=== PATIENT | female | born 1950 | race Caucasian/White ===

== ENCOUNTER → 2020-02-06 15:04 | Outpatient (BNVA) | payer MEDICARE, MEDICAID, SELFPAY | PROVIDERS: PCP Internal Medicine; Referring Provider Internal Medicine; Visit Provider Hospitalist | DX: J45.41 Moderate persistent asthma with (acute) exacerbation (principal); J01.00 Acute maxillary sinusitis, unspecified; G47.33 Obstructive sleep apnea (adult) (pediatric) | CPT/HCPCS: 99212 ==

== ENCOUNTER → 2020-04-21 10:54 | Outpatient (BNVA) | payer MEDICARE, MEDICAID, SELFPAY | PROVIDERS: PCP Internal Medicine; Visit Provider Hospitalist | DX: Z76.89 Persons encountering health services in other specified circumstances (principal) | CPT/HCPCS: Q3014 ==

== ENCOUNTER 2020-05-13 15:23 | Outpatient (REF) | payer MEDICARE, MEDICAID, SELFPAY ==
--- NOTE | ~2020-05-13 | XR_ITS ---
EXAMINATION: XR CHEST CLINICAL INFORMATION: Cough COMPARISON: Chest radiographs 12/14/2018, 02/10/2017 TECHNIQUE: 2 views of the chest were obtained. FINDINGS: There is no airspace consolidation or groundglass opacity. The costophrenic sulci are clear. No effusion. The cardiac and hilar and mediastinal contours are stable. Again, there are mild multilevel degenerative changes thoracic spine with gentle dextrocurvature. XR/XR chest 2V IMPRESSION: No infiltrate or effusion. No acute intrathoracic disease.
== END 2020-05-13 15:24 | disposition home or self-care (01) ==
LOC: HO.XRAY 15:23
PROVIDERS: PCP Internal Medicine; Visit Provider Hospitalist
DX: R05 Cough (principal)
CPT/HCPCS: 71046

== ENCOUNTER 2020-07-01 14:14 | Outpatient (REF) | payer MEDICARE, MEDICAID, SELFPAY ==
--- NOTE | 2020-07-01 14:10 | MHC.AU.AHA ---
Adult Audiological Evaluation Date of Visit: 07/01/20 Reason for Appointment: Audiological evaluation to monitor the status of Ms. Ledezma's hearing loss. She has a longstanding history of bilateral sensorineural hearing loss and hearing aid use. She states that she lost both hearing aids and would like to pursue a replacement set. Ms. Ledezma believes that her hearing is getting worse. Previous Hearing Test Results: [facility] [place], 03/27/2017- Normal hearin from 250-750 Hz, steeply sloping to a mild to profound sensorineural hearing loss bilaterally. Medical History: Medical History: Diabetes, High Blood Pressure Medical History: Arnold-Chiari Malformation, fibromyalgia, neuropathy, lipomas, asthma, sinus problems. Allergies: Aspirin, latex Hearing Instrument History- Right Ear: Transmission Supervisor: Easy Vino Model: FaceAlertaeTeramind P70-312 Serial Number: [id number] Battery Size: 312 Repair Warranty: 07/11/2019 Loss and Damage Warranty: 07/11/2019 Dispensed By: [facility] Date of Fittin05/03/2017 Hearing Instrument History- Left Ear: Transmission Supervisor: O4ITak Model: Audeo P70-312 Serial Number: [id number] Battery Size: 312 Warranty: 07/11/2019 Loss and Damage Warranty: 07/11/2019 Dispensed By: [facility] Date of Fittin05/03/2017 Otoscopy: Right Ear: Unremarkable Left Ear: Unremarkable Tympanometry: Tympanometry performed due to: To assess integrity of the middle ear system Right Ear: Normal Middle Ear System (Type A) Left Ear: Normal Middle Ear System (Type A) Hearing Evaluation: Transducer(s) Used: Insert Earphones, Bone Conduction Method: Conventional Audiometry Stimuli Used: Pure Tones Right Ear: Description of Hearing: Normal hearing from 250-750 Hz, steeply sloping to a mild sensorineural hearing loss (SNHL) at 1000, severe SNHL at 1500 Hz, and a profound SNHL from 4051-1256 Hz. Left Ear: Description of Hearing: Normal hearing from 250-750 Hz, steeply sloping to a mild sensorineural hearing loss (SNHL) at 1000, moderately severe SNHL at 1500 Hz, severe SNHL at 2000 Hz, and a profound SNHL from 7001-9873 Hz. Speech Recognition Threshold (SRT): Method Used: Monitored Live Voice Stimuli Used: Spondee Words Right Ear: 30 dBHL Left Ear: 25 dBHL Word Discrimination: Method: Recorded Lists Word Lists Used: NU-6 Right Ear: 56% at 80 dBHL Left Ear: 56% at 80 dBHL Comparison: Compared to the most recent evaluation: Hearing is stable. Recommendations: Audiological re-evaluation in one year. Medical clearance from a physician is required before fitting. Hearing Aid Fitting will be scheduled when all materials arrive. Hearing aid(s) will be ordered after approval is received. Since lost aids are less than five years old and no longer under warranty, a prior authorization for new hearing [facility] Diagnosis: Primary Diagnosis: H90.3 Bilateral Sensorineural Hearing Loss Services Performed: Comprehensive Audiological Evaluation (CPT 96404) Tympanometry (CPT 12121) Signature: Provider: Christine Tello, CCC-A
--- NOTE | 2020-07-01 14:12 | MHC.AU.HAS ---
Hearing Aid Evaluation Date of Visit: 07/01/20 Historical Information: Description of Hearing: Normal steeply sloping to profound sensorineural hearing loss bilaterally. Current personal amplification information, if applicable: LOST- Phonak Audeo [id number] Summary: Patient reports that aids were lost. Would like to get replacements. Patient has neuropathy and would benefit from rechargeable hearing aids. Hearing Aid Prescription: Based on the individual?s shared listening needs, communication environments, dexterity, desire for connectivity, and personal preferences, the following prescription for amplification has been made: Right ear: Shuttle Fitting Supervisor: Phonak Model: Audeo P70-312 Battery Size: 312 Color: P5- [employer] Teacher: Size 1 P Type of Dome: Power Left ear: Left ear prescription to be same as Right Hearing Aid above: Shuttle Fitting Supervisor: Phonak Model: Audeo P70-312 Battery Size: 312 Color: P5- [employer] Class[employer] Teacher: Size 1 P Type of Dome: Power Action Taken/Action Needed: Prior authorization to be requested. Medical Clearance to be requested from PCP/ENT. Hearing Fitting to be scheduled when materials arrive Primary Diagnosis: H90.3 Bilateral Sensorineural Hearing Loss Signature: Provider: Christine Tello, CCC-A
--- NOTE | 2020-07-01 14:13 | MHC.AU.MED ---
Medical Clearance for Hearing Instrumentation Date: 07/03/20 Patient Name: Madeleine Ledezma Date of : 1950 Referring Provider: Rito Olivas MD We have seen your patient on 07/03/20 and have determined that they are a candidate for amplification (See accompanying report). Specifically, they would benefit from: Hearing aid use in both ears There is a statute that addresses Medical Evaluation Requirements prior to fitting a patient with a hearing aid. According to [place] statute 265 CMR:6.03(1), (a) General. Except as provided in 265 CMR 6.03(1)(b), a can line examiner shall not sell a hearing aid unless the prospective user has presented to the can line examiner a written statement signed by a licensed physician that states that the patient's hearing loss has been medically evaluated and the patient may be considered a candidate for a hearing aid. The medical evaluation must have taken place within the preceding six months. Please note: Due to the [place] Statute referenced above, we cannot accept a signature other than that of a licensed physician. [employer] and PA signatures cannot be accepted. I am in agreement with the above recommendation. There is no medical contraindication for hearing instrumentation. Physician Signature Date Physician Name (Printed)
== END 2020-07-01 14:15 | disposition home or self-care (01) ==
LOC: HO.SH 14:14
PROVIDERS: Visit Provider Internal Medicine
DX: H90.3 Sensorineural hearing loss, bilateral (principal)
CPT/HCPCS: 92557; 92567; 92591

== ENCOUNTER 2020-07-11 19:25 | Emergency (ER) | payer MEDICARE, MEDICAID, SELFPAY ==
--- NOTE | ~2020-07-11 | XR_ITS ---
EXAMINATION: XR chest 1V CLINICAL INFORMATION: Cough shortness of breath COMPARISON: 05/13/2020 TECHNIQUE: XR chest 1V Tubes and lines: None Lungs and pleura: Mild increased interstitial lung marking and peribronchial cuffing might be small airway disease unchanged, no dense focal consolidation pneumonia. Heart and mediastinum: The mediastinum is within normal limits.. Bones/soft tissue: Skeletal structures included are normal for patient's age. XR/XR chest 1V IMPRESSION: Diffuse increased interstitial lung marking and probable bronchial cuffing might be small airway disease. Versus interstitial pneumonitis. Please correlate clinically. No dense lobar consolidation or pleural effusion.
--- NOTE | ~2020-07-11 | CT_ITS ---
CT head/brain wo con CLINICAL INFORMATION: Reason for Exam ams COMPARISON: Prior CT scan from 2019 TECHNIQUE: Department standard protocol. This CT examination was performed using dose optimization techniques as appropriate, variously including the following: *Automated exposure control *Adjustment of mA and/or kV according to patient size (this includes techniques or standardized protocols for targeted exams where dose is matched to indication/reason for exam; i.e. extremities or head) *Use of iterative reconstruction technique DLP: 863 mGy-cm FINDINGS: CEREBRAL HEMISPHERES: There is no evidence of intra-axial or extra-axial mass, hemorrhage or acute infarct. BRAIN PARENCHYMA: Deep white matter and paraventricular hypoattenuation, nonspecific; however, in this patient's age group most likely changes secondary to chronic ischemia/microvascular angiopathy. SUBDURAL SPACE: No bleed. BASAL GANGLIA AND PINEAL GLAND: Unremarkable VENTRICLES: Symmetric and normal in size. CEREBELLUM AND BRAINSTEM: No space-occupying mass, hemorrhage or acute infarct. CEREBELLOPONTINE ANGLES: No lesion found. ORBITS: No intraorbital mass. VESSELS: Unremarkable SKULL BASE: Unremarkable INCLUDED SINUSES AT SKULL BASE: Clear SKULL AND SKIN: No fracture or bone lesion found. CT/CT head/brain wo con IMPRESSION: Deep white matter and periventricular hypoattenuation, nonspecific; however, in this patient's age group most likely sequela of chronic microvascular angiopathy ischemia. Normal CT scan does not rule out the possibility of hyperacute infarct in the first 12 hours. If patient symptoms persist may consider correlation with MRI, which is more sensitive for early acute infarct.
[2020-07-11 19:30] VITALS: BP 178/71; PULSE 86; RESP 20; TEMP 36.3; O2SAT 96; BMI 34.5
--- NOTE | 2020-07-11 19:55 | PC.NURSE ---
Bremer Scale completed by this RN while in Triage with pts daughter.
[2020-07-11 19:59] VITALS: BP 158/82; PULSE 88; RESP 16; TEMP 36.9; O2SAT 98
--- NOTE | 2020-07-11 20:24 | PC.NURSE ---
pt alert and oriented x3. respirations even and unlabored. vital signs WNL. pt states she hasn't slept in 3 days due to not taking her Ambien for 3 days since she is out of refills. pt also states she has multiple stressors in her life such as a grandaughter who lives with her and her living situation/potentially moving to a new house as well as chronic pain in shoulders, neck and back. pt is hard of hearing and daughter states she is non-compliant with wearing hearing aids, daughter at bedside and requests that staff wear a face shield when possible so pt can read lips. pt denies any pain at this time. pt is pleasant and cooperative with care. pt awaiting provider. call figueroa in reach.
--- NOTE | 2020-07-11 20:41 | PC.NURSE ---
pt denies SI at this time. pt clarified statements made earlier and states that she wishes God would come take her because she is old and doesn't want to be in pain anymore but emphasized that she is not suicidal and does not have a plan or any intent of harming or killing self. aware
--- NOTE | 2020-07-11 21:01 | ECG_ITS ---
Test Reason : AMS Blood Pressure : / mmHG Vent. Rate : 086 BPM Atrial Rate : 086 BPM P-R Int : 150 ms QRS Dur : 132 ms QT Int : 408 ms P-R-T Axes : 045 -16 042 degrees QTc Int : 488 ms Normal sinus rhythm Right bundle branch block Abnormal ECG When compared with ECG of 14-DEC-2018 17:12, Right bundle branch block is now Present Referred By: Hyacinth Nieves Electronically Signed By:MARGARET KIM
[2020-07-11] MEDS: 0.9 % Sodium Chloride 1,000 ML 999 ML IVCONT (21:33)
[2020-07-11 21:38] LABS: MANUAL DIFF FLAG NO
[2020-07-11 21:40] LABS: Basophils Percent Auto 0.3 % (0-2); Eosinophils Absolute Auto 0.3 X10*3/uL (0.0-0.4); Eosinophils Percent Auto 2.4 % (0-4); Hemoglobin 11.9 g/dl (12.0-16.0); Imm Gran Abs Auto 0.03 X10*3/uL (0.00-0.03); Imm Gran Pct Auto 0.3 % (0.0-0.4); Lymphocytes Absolute Auto 4.1 X10*3/uL (1.2-4.9); Mean Corpuscular HGB Conc 32.2 g/dl (31.0-35.0); Mean Platelet Volume 9.1 fL (9.4-12.3); Monocytes Absolute Auto 0.8 X10*3/uL (0.1-1.2); Monocytes Percent Auto 7.2 % (2-11); Neutrophils Absolute Auto 6.1 X10*3/uL (2.0-8.3); Neutrophils Percent Auto 53.8 % (45-73); Platelet Count 351 X10*3/uL (160-400); Red Blood Count 4.11 X10*6/uL (4.20-5.50); Red Cell Distribution Width 14.6 % (11.0-16.0); White Blood Count 11.2 X10*3/uL (4.8-10.8)
[2020-07-11 21:48] LABS: Partial Thromboplastin Time 26.6 SEC (24.1-38.0)
[2020-07-11 21:53] LABS: Ammonia 47 umol/L (13-55)
[2020-07-11 22:03] LABS: Alanine Aminotransferase 19 U/L (0-31); Albumin Level 3.9 g/dL (3.5-5.0); Alkaline Phosphatase 105 U/L (39-117); Anion Gap 12 (12-20); Aspartate Amino Transferase 21 U/L (5-31); Bilirubin Direct 0.2 mg/dL (0.0-0.5); Bilirubin Total 0.7 mg/dL (0.0-1.0); Blood Urea Nitrogen 17 mg/dL (9-16); Calcium 9.5 mg/dL (8.4-10.2); Carbon Dioxide 26 mmol/L (22-29); Chloride 106 mmol/L (96-108); Creatinine Clr Calc Pharmacy 77.8; Estimated Glomerular Filt Rate > 60; Glucose Random 95 mg/dL (60-115); Lipase 31 U/L (8-78); Magnesium 1.8 mg/dL (1.6-2.6); Potassium 4.2 mmol/L (3.3-5.1); Sodium 140 mmol/L (135-145); Total Protein 6.9 g/dL (6.5-8.0)
[2020-07-11 22:05] LABS: B Type Natriuretic Peptide 27 pg/mL (<100); Troponin-I High Sensitivity 6.7 ng/L (<3.5-17.0)
--- NOTE | 2020-07-11 22:07 | ED.GENADULT ---
HPI - General Adult General Chief complaint: General Medical Stated complaint: Multiple complaints Time Seen by Provider: 07/11/20 20:43 Source: patient Mode of arrival: ambulatory History of Present Illness HPI narrative: 69-year-old female with a past medical history of Chiari malformation, arthritis, asthma, diabetes, fibromyalgia, hyperlipidemia, hypertension, CASSANDRA on BiPAP, sinusitis, presenting to the ED with daughter reporting increased anxiety, restlessness, disorientation, vague SI without desire to live any more, and generalized myalgias x months. Also reports ran out of her Ambien and has had difficulty sleeping recently. Daughter reports patient lives with 13-year-old granddaughter, and living situation has had challenges, this being 2nd breakthrough for patient. Patient reports chronic SOB. Denies fever, chills, abdominal pain, nausea/vomiting or, LE edema, EtOH or illicit drug use. Related Data Home Medications Medication Instructions Recorded Confirmed albuterol sulfate 90 mcg/actuation 2 puff PO QID 02/06/20 04/21/20 aerosol inhaler atorvastatin 20 mg tablet 20 mg PO DAILY 02/06/20 04/21/20 budesonide-formoterol HFA 160 2 puff PO BID 02/06/20 04/21/20 mcg-4.5 mcg/actuation aerosol inhaler clonazepam 0.5 mg tablet 0.5 mg PO BID PRN 02/06/20 04/21/20 duloxetine 60 mg capsule,delayed mg PO 02/06/20 04/21/20 release gabapentin 300 mg capsule mg PO 02/06/20 04/21/20 ibuprofen 600 mg tablet 600 mg PO TID 02/06/20 04/21/20 insulin aspart U-100 100 unit/mL 6 - 16 unit SUBCUT DAILY 02/06/20 04/21/20 (3 mL) subcutaneous pen insulin glargine 100 unit/mL (3 unit SUBCUT 02/06/20 04/21/20 mL) subcutaneous pen lisinopril 10 mg tablet 10 mg PO DAILY 02/06/20 04/21/20 meloxicam 7.5 mg tablet 7.5 mg PO BID PRN 02/06/20 04/21/20 metformin 1,000 mg tablet 1,000 mg PO BID 02/06/20 04/21/20 omeprazole 20 mg capsule,delayed 20 mg PO DAILY 02/06/20 04/21/20 release pregabalin 150 mg capsule 150 mg PO BID 02/06/20 04/21/20 zolpidem 10 mg tablet 10 mg PO BEDTIME 02/06/20 04/21/20 liraglutide 0.6 mg/0.1 mL (18 mg/3 1.8 mg SUBCUT DAILY 04/21/20 04/21/20 mL) subcutaneous pen injector Previous Rx's Medication Instructions Recorded budesonide 0.5 mg/2 mL suspension 0.5 mg INHALATION BID #120 ml 02/06/20 for nebulization doxycycline hyclate 100 mg capsule 100 mg PO BID 10 Days #20 cap 02/06/20 umeclidinium 62.5 mcg/actuation 1 inh INHALATION DAILY 30 Days #30 02/06/20 blister powder for inhalation ea benzonatate 200 mg capsule 200 mg PO TID PRN 30 Days #45 cap 04/21/20 fluticasone propionate 50 2 spray INTRANASAL DAILY 30 Days 04/21/20 mcg/actuation nasal #16 g spray,suspension levofloxacin 500 mg tablet 500 mg PO DAILY 10 Days #10 tab 04/21/20 fluconazole 100 mg tablet 100 mg PO DAILY 7 Days #7 tab 04/23/20 walker #1 ea 07/12/20 Allergies Allergy/AdvReac Type Severity Reaction Status Date / Time aspirin [ASPIRIN] Allergy Intermediate GI UPSET, Verified 07/11/20 19:41 stomach pain latex [LATEX] Allergy Intermediate HIVES Verified 07/11/20 19:41 Review of Systems Review of Systems: Constitutional: No Fever, No Chills, No Night Sweats, No Fatigue, No Malaise ENT/Mouth: No Ear Pain, No Nasal Congestion Eyes: No Eye Pain, No Swelling, No Redness, No Foreign Body, No Discharge, No Vision Changes Cardiovascular: No Chest Pain, + SOB, No Dyspnea on Exertion, No Edema Respiratory: No Cough, No Sputum, No Dyspnea Gastrointestinal: No Nausea, No Vomiting, No Diarrhea, No Constipation, No Abdominal pain Genitourinary: No Dysuria, No Urinary Frequency, No Hematuria Musculoskeletal: No joint pain, + Myalgias, No Joint Swelling Skin: No Skin Lesions, No rash Neuro: No Weakness, No Numbness, No Paresthesias, No Dizziness, No Headache Psych: +Anxiety, +Depression, No SI, + Social Issues, Yes all other systems are reviewed and are negative [facility] Past Medical History Attestation statement: The following information was validated with the patient. Medical History (Updated 07/12/20 @ 01:58 by KULWANT Garrett) Arnold-Chiari malformation Arthritis Asthma Cough Diabetes Fibromyalgia Hyperlipidemia Hypertension CASSANDRA treated with BiPAP Sinusitis Social History Social History (Updated 02/06/20 @ 15:32 by Hayde Saleh MA) Smoking Status: Never smoker Advance Directives: No Advance Directives Information Provided: No Physical Exam Vital Signs: Vital Signs: Last Vital Signs Temp 98.4 F 07/11/20 19:59 Pulse 85 07/11/20 23:25 Resp 16 07/11/20 19:59 BP 158/82 H 07/11/20 19:59 Pulse Ox 98 07/11/20 19:59 Body Mass Index 34.5 Const: General: cooperative and healthy appearing Limitations: no limitations HENMT: Head: Yes normal to inspection Ears: hearing grossly normal bilaterally General nose exam: Normal external nose present Face and sinus: Yes normal facial exam Eyes: General: appearance normal, both eyes and all related structures Pupils: Equal, round and reactive pupils present EOM: EOMs intact bilaterally Neck: Neck: Yes normal visual inspection Resp: Other: Coarse lung sounds bibasilar Effort & Inspection: normal respiratory effort Cardio: Rate: regular rate Heart sounds: S1 normal heart sound present and S2 normal heart sound present GI: Inspection: Yes normal to inspection Palpation (GI): Soft to palpation, nontender, no guarding and not rigid Skin: Rashes: no rashes Wounds: no wounds Neuro: Cranial nerves: Yes Equal, round and reactive pupils present Extrem: General: Yes normal to inspection and Yes no pedal edema Psych: Affect: Sad affect present, Anxious affect present and Blunted affect present Thought process: Circumstantial thought process present and Flight of ideas present Thought content: Suicidality present and Depressive thoughts present Course Course Course Narrative: -mild leukocytosis of 11.2. H&H stable, troponin 6.7 > will obtain 3 hour repeat -UA negative, COVID-19/influenza/RSV negative XR chest 1V IMPRESSION: Diffuse increased interstitial lung marking and probable bronchial cuffing might be small airway disease. Versus interstitial pneumonitis. Please correlate clinically. No dense lobar consolidation or pleural effusion CT head/brain wo con IMPRESSION: Deep white matter and periventricular hypoattenuation, nonspecific; however, in this patient's age group most likely sequela of chronic microvascular angiopathy ischemia. Normal CT scan does not rule out the possibility of hyperacute infarct in the first 12 hours. If patient symptoms persist may consider correlation with MRI, which is more sensitive for early acute infarct. -0139--repeat troponin without 50% rise, [place] unlikely. Tox screen negative -patient was evaluated by care team provided resources for elder care, and partial hospitalization referral made. Offered PT/CM Consult in the morning however patient refusing and would like to go home and be referred through her PCP. She ambulated steadily with a walker in the ED, only ambulates with cane at home. Will DC with walker. Patient are agreeable to stay overnight in ED. Worrisome signs and symptoms and strict return precautions discussed. Patient verbalized understanding feel safe for discharge home at this time Medical Decision Making MDM Narrative Medical decision making narrative: 69-year-old female with a past medical history of Chiari malformation, arthritis, asthma, diabetes, fibromyalgia, hyperlipidemia, hypertension, CASSANDRA on BiPAP, sinusitis, presenting to the ED with daughter reporting increased anxiety, restlessness, disorientation, vague SI without desire to live any more, and generalized myalgias x months. Patient reports chronic SOB. On exam VS, NAD/well-appearing, physical exam as above. Will medically clear/rule out organic causes of symptoms and obtain care team consult Plan: EKG, labs, UA, head CT, CXR, reassess Lab Data Result diagrams: 07/11/20 21:29 07/11/20 21:29 Labs: Lab Results 07/11/20 07/11/20 07/11/20 Range/Units 21:29 21:29 21:29 WBC 11.2 H (4.8-10.8) X10*3/uL RBC 4.11 L (4.20-5.50) X10*6/uL Hgb 11.9 L (12.0-16.0) g/dl Hct 37.0 (37-47) % MCV 90.0 (80-98) fL MCH 29.0 (27.0-33.0) pg MCHC 32.2 (31.0-35.0) g/dl RDW 14.6 (11.0-16.0) % Plt Count 351 (160-400) X10*3/uL MPV 9.1 L (9.4-12.3) fL Immature Gran % (Auto) 0.3 (0.0-0.4) % Neut % (Auto) 53.8 (45-73) % Lymph % (Auto) 36.0 (20-40) % [place] % (Auto) 7.2 (2-11) % Eos % (Auto) 2.4 (0-4) % Baso % (Auto) 0.3 (0-2) % Lymph # (Auto) 4.1 (1.2-4.9) X10*3/uL [place] # (Auto) 0.8 (0.1-1.2) X10*3/uL Eos # (Auto) 0.3 (0.0-0.4) X10*3/uL Baso # (Auto) 0.0 (0.0-0.2) X10*3/uL Abs Immat Gran (auto) 0.03 (0.00-0.03) X10*3/uL Absolute Neuts (auto) 6.1 (2.0-8.3) X10*3/uL Absolute Nucleated RBC 0.000 (0.0-0.012) X10*3/uL Nucleated RBC % (auto) 0.0 (0.0-0.2) /100WBC PT 12.0 (10.8-13.0) SEC INR 1.0 (0.9-1.1) APTT 26.6 (24.1-38.0) SEC Sodium (135-145) mmol/L Potassium (3.3-5.1) mmol/L Chloride (96-108) mmol/L Carbon Dioxide (22-29) mmol/L Anion Gap (12-20) BUN (9-16) mg/dL Creatinine (0.5-1.4) mg/dL Estim Creat Clear Calc Estimated GFR Random Glucose (60-115) mg/dL Calcium (8.4-10.2) mg/dL Magnesium (1.6-2.6) mg/dL Total Bilirubin (0.0-1.0) mg/dL Direct Bilirubin (0.0-0.5) mg/dL AST (5-31) U/L ALT (0-31) U/L Alkaline Phosphatase (39-117) U/L Ammonia 47 (13-55) umol/L Troponin I High Sens (<3.5-17.0) ng/L B-Natriuretic Peptide (<100) pg/mL Total Protein (6.5-8.0) g/dL Albumin (3.5-5.0) g/dL Lipase (8-78) U/L Urine Color Urine Appearance Urine pH (5.0-8.0) Ur Specific [place] (1.005-1.025) Urine Protein (NEG-TRACE) MG/DL Urine Glucose (UA) (NEG) MG/DL Urine Ketones (NEG) MG/DL Urine Blood (NEG) Urine Nitrite (NEG) Ur Leukocyte Esterase (NEG) Urine Opiates Screen (Not Detect) Ur Barbiturates Screen (Not Detect) Ur Phencyclidine Scrn (Not Detect) Ur Amphetamines Screen (Not Detect) U Benzodiazepines Scrn (Not Detect) Urine Cocaine Screen (Not Detect) U Marijuana (THC) Screen (Not Detect) Coronavirus (PCR) (Negative) Influenza Type A (PCR) (Negative) Influenza Type B (PCR) (Negative) RSV RNA Qual (PCR) (Negative) 07/11/20 07/11/20 07/11/20 Range/Units 21:29 21:29 21:29 WBC (4.8-10.8) X10*3/uL RBC (4.20-5.50) X10*6/uL Hgb (12.0-16.0) g/dl Hct (37-47) % MCV (80-98) fL MCH (27.0-33.0) pg MCHC (31.0-35.0) g/dl RDW (11.0-16.0) % Plt Count (160-400) X10*3/uL MPV (9.4-12.3) fL Immature Gran % (Auto) (0.0-0.4) % Neut % (Auto) (45-73) % Lymph % (Auto) (20-40) % [place] % (Auto) (2-11) % Eos % (Auto) (0-4) % Baso % (Auto) (0-2) % Lymph # (Auto) (1.2-4.9) X10*3/uL [place] # (Auto) (0.1-1.2) X10*3/uL Eos # (Auto) (0.0-0.4) X10*3/uL Baso # (Auto) (0.0-0.2) X10*3/uL Abs Immat Gran (auto) (0.00-0.03) X10*3/uL Absolute Neuts (auto) (2.0-8.3) X10*3/uL Absolute Nucleated RBC (0.0-0.012) X10*3/uL Nucleated RBC % (auto) (0.0-0.2) /100WBC PT (10.8-13.0) SEC INR (0.9-1.1) APTT (24.1-38.0) SEC Sodium 140 (135-145) mmol/L Potassium 4.2 (3.3-5.1) mmol/L Chloride 106 (96-108) mmol/L Carbon Dioxide 26 (22-29) mmol/L Anion Gap 12 (12-20) BUN 17 H (9-16) mg/dL Creatinine 0.74 (0.5-1.4) mg/dL Estim Creat Clear Calc 77.8 Estimated GFR > 60 Random Glucose 95 (60-115) mg/dL Calcium 9.5 (8.4-10.2) mg/dL Magnesium 1.8 (1.6-2.6) mg/dL Total Bilirubin 0.7 (0.0-1.0) mg/dL Direct Bilirubin 0.2 (0.0-0.5) mg/dL AST 21 (5-31) U/L ALT 19 (0-31) U/L Alkaline Phosphatase 105 (39-117) U/L Ammonia (13-55) umol/L Troponin I High Sens 6.7 (<3.5-17.0) ng/L B-Natriuretic Peptide 27 (<100) pg/mL Total Protein 6.9 (6.5-8.0) g/dL Albumin 3.9 (3.5-5.0) g/dL Lipase 31 (8-78) U/L Urine Color Urine Appearance Urine pH (5.0-8.0) Ur Specific [place] (1.005-1.025) Urine Protein (NEG-TRACE) MG/DL Urine Glucose (UA) (NEG) MG/DL Urine Ketones (NEG) MG/DL Urine Blood (NEG) Urine Nitrite (NEG) Ur Leukocyte Esterase (NEG) Urine Opiates Screen (Not Detect) Ur Barbiturates Screen (Not Detect) Ur Phencyclidine Scrn (Not Detect) Ur Amphetamines Screen (Not Detect) U Benzodiazepines Scrn (Not Detect) Urine Cocaine Screen (Not Detect) U Marijuana (THC) Screen (Not Detect) Coronavirus (PCR) NEGATIVE (Negative) Influenza Type A (PCR) NEGATIVE (Negative) Influenza Type B (PCR) NEGATIVE (Negative) RSV RNA Qual (PCR) NEGATIVE (Negative) 07/11/20 07/11/20 07/12/20 Range/Units 22:50 22:50 00:47 WBC (4.8-10.8) X10*3/uL RBC (4.20-5.50) X10*6/uL Hgb (12.0-16.0) g/dl Hct (37-47) % MCV (80-98) fL MCH (27.0-33.0) pg MCHC (31.0-35.0) g/dl RDW (11.0-16.0) % Plt Count (160-400) X10*3/uL MPV (9.4-12.3) fL Immature Gran % (Auto) (0.0-0.4) % Neut % (Auto) (45-73) % Lymph % (Auto) (20-40) % [place] % (Auto) (2-11) % Eos % (Auto) (0-4) % Baso % (Auto) (0-2) % Lymph # (Auto) (1.2-4.9) X10*3/uL [place] # (Auto) (0.1-1.2) X10*3/uL Eos # (Auto) (0.0-0.4) X10*3/uL Baso # (Auto) (0.0-0.2) X10*3/uL Abs Immat Gran (auto) (0.00-0.03) X10*3/uL Absolute Neuts (auto) (2.0-8.3) X10*3/uL Absolute Nucleated RBC (0.0-0.012) X10*3/uL Nucleated RBC % (auto) (0.0-0.2) /100WBC PT (10.8-13.0) SEC INR (0.9-1.1) APTT (24.1-38.0) SEC Sodium (135-145) mmol/L Potassium (3.3-5.1) mmol/L Chloride (96-108) mmol/L Carbon Dioxide (22-29) mmol/L Anion Gap (12-20) BUN (9-16) mg/dL Creatinine (0.5-1.4) mg/dL Estim Creat Clear Calc Estimated GFR Random Glucose (60-115) mg/dL Calcium (8.4-10.2) mg/dL Magnesium (1.6-2.6) mg/dL Total Bilirubin (0.0-1.0) mg/dL Direct Bilirubin (0.0-0.5) mg/dL AST (5-31) U/L ALT (0-31) U/L Alkaline Phosphatase (39-117) U/L Ammonia (13-55) umol/L Troponin I High Sens 7.2 (<3.5-17.0) ng/L B-Natriuretic Peptide (<100) pg/mL Total Protein (6.5-8.0) g/dL Albumin (3.5-5.0) g/dL Lipase (8-78) U/L Urine Color YELLOW Urine Appearance CLEAR Urine pH 7.0 (5.0-8.0) Ur Specific [place] 1.020 (1.005-1.025) Urine Protein NEG (NEG-TRACE) MG/DL Urine Glucose (UA) 250 H (NEG) MG/DL Urine Ketones NEG (NEG) MG/DL Urine Blood NEG (NEG) Urine Nitrite NEG (NEG) Ur Leukocyte Esterase NEG (NEG) Urine Opiates Screen Not Detected (Not Detect) Ur Barbiturates Screen Not Detected (Not Detect) Ur Phencyclidine Scrn Not Detected (Not Detect) Ur Amphetamines Screen Not Detected (Not Detect) U Benzodiazepines Scrn Not Detected (Not Detect) Urine Cocaine Screen Not Detected (Not Detect) U Marijuana (THC) Screen Not Detected (Not Detect) Coronavirus (PCR) (Negative) Influenza Type A (PCR) (Negative) Influenza Type B (PCR) (Negative) RSV RNA Qual (PCR) (Negative) Discharge Plan Discharge Clinical Impression: Depressed, Myalgia Patient Disposition: Home, Self-Care Instructions: Depression (ED) Additional Instructions: Your blood work was reassuring today in the emergency department. Your x-ray showed some small airway disease it is important to use your inhaler/home prescribed medications Your head CT did not show any acute findings Care team evaluated you and recommended a partial hospitalization program Continue home prescribed medications If you have any thoughts of hurting self or hurting others please return to the ED immediately It is important for you to see her PCP soon as possible to set up home services Prescriptions: Raymundo (ARLEEN) navarro Melloc See Rx Instructions .ROUTE .MEDSUPPLY Qty: 1 RF: 0 No Action fluconazole [Diflucan] 100 mg tablet 100 mg PO DAILY 7 Days Qty: 7 RF: 0 zolpidem 10 mg tablet 10 mg PO BEDTIME RF: 0 budesonide-formoterol 160-4.5 mcg/actuation HFA aerosol inhaler 2 puff PO BID RF: 0 duloxetine 60 mg capsule,delayed release(DR/EC) PO RF: 0 ibuprofen 600 mg tablet 600 mg PO TID RF: 0 gabapentin 300 mg capsule PO RF: 0 Basaglar KwikPen U-100 Insulin 100 unit/mL (3 mL) insulin pen subcut RF: 0 omeprazole 20 mg capsule,delayed release(DR/EC) 20 mg PO DAILY RF: 0 lisinopril 10 mg tablet 10 mg PO DAILY RF: 0 albuterol sulfate 90 mcg/actuation HFA aerosol inhaler 2 puff PO QID RF: 0 clonazepam 0.5 mg tablet 0.5 mg PO BID PRNRF: 0 metformin 1,000 mg tablet 1,000 mg PO BID RF: 0 pregabalin 150 mg capsule 150 mg PO BID RF: 0 insulin aspart U-100 100 unit/mL (3 mL) insulin pen 6 - 16 unit subcut DAILY RF: 0 meloxicam 7.5 mg tablet 7.5 mg PO BID PRNRF: 0 atorvastatin 20 mg tablet 20 mg PO DAILY RF: 0 Incruse Ellipta 62.5 mcg/actuation blister with device 1 inh inhalation DAILY 30 Days Qty: 30 RF: 11 budesonide 0.5 mg/2 mL suspension for nebulization 0.5 mg inhalation BID Qty: 120 RF: 11 doxycycline hyclate 100 mg capsule 100 mg PO BID 10 Days Qty: 20 RF: 0 liraglutide 0.6 mg/0.1 mL (18 mg/3 mL) pen injector 1.8 mg subcut DAILY RF: 0 levofloxacin 500 mg tablet 500 mg PO DAILY 10 Days Qty: 10 RF: 0 benzonatate 200 mg capsule 200 mg PO TID PRN (Reason: cough) 30 Days Qty: 45 RF: 3 fluticasone propionate 50 mcg/actuation spray,suspension 2 spray intranasal DAILY 30 Days Qty: 16 RF: 11 Referrals: [facility] [Physician] - 2 days Rito Olivas MD [Primary Care Provider] - 2 days
[2020-07-11 22:27] LABS: Influenza A PCR NEGATIVE (Negative); Influenza B PCR NEGATIVE (Negative); Resp Syncy Virus RNA Qual PCR NEGATIVE (Negative); SARS COV2 PCR INHOUSE NEGATIVE (Negative)
[2020-07-11 22:59] LABS: Appearance Urine CLEAR; Color Urine YELLOW; Glucose Urine UA 250 MG/DL (NEG); Leukocyte Esterase Urine NEG (NEG); Nitrite Urine NEG (NEG); Urine Blood NEG (NEG); Urine Ketones NEG (NEG); Urine Protein NEG (NEG-TRACE)
[2020-07-11 23:16] LABS: Amphetamine Screen Urine Not Detected (Not Detect); Barbiturates, Urine Not Detected (Not Detect); Benzodiazepines Screen Urine Not Detected (Not Detect); Cannabinoid Screen Urine Not Detected (Not Detect); Cocaine Screen Urine Not Detected (Not Detect); Opiate Screen Urine Not Detected (Not Detect); Phencyclidine Screen Urine Not Detected (Not Detect)
[2020-07-11] MEDS: Albuterol Sulfate (0.083%) 2.5 MG/3 ML VIAL.NEB 5 MG INHALE (23:23)
[2020-07-11 23:25] VITALS: PULSE 85; O2SAT 99
[2020-07-12 01:22] LABS: Troponin-I High Sensitivity 7.2 ng/L (<3.5-17.0)
--- NOTE | 2020-07-12 01:48 | MHC.CARE ---
CARE team consult requested for 69 year old bilingual, [place] female who was brought to the ED by her daughter at the recommendation of her PCP after expressing feelings of hopelessness and helplessness secondary to increasing life stressors, chronic pain and illness, and age related cognitive and physical decline. Pt's relationship and interactions with her 13 year old granddaughter, whom she has been raising, have become notably more challenging as their personalities clash. Pt has also been in the process of trying to relocate to [place], which has made little progress in the past few months. Pt reported that she lost 15lbs over a month or two due to poor appetite and that she struggles with sleep even when she takes her sleep medications. Pt's ADLs have been poor, which she stated is due to her physical pain impacting her ability to take sufficient care of herself. Pt expressed feeling that she's a burden and wants to because of her old age and poor health. Pt's mood was depressed and irritable with wide affect range, from pleasant to sad to angry, and so on. Pt denied wanting to harm herself or end her life, and also maintained that she wants God to take her. Pt denied history of suicidality, denied history of substance use and addiction, and denied history of symptom presentation or decompensation requiring acute behavioral health treatment. Pt has struggled with depression and anxiety for 30 years, since the of her youngest child and has worked with several therapists, though is not connected with one at this time. Pt's daughter reported that pt has a [employer] through [employer], however this person has put in their notice to quit, and will needto be replaced. Pt had previously had meals on wheels, but would not consistently open the door or retrieve the food being delivered. Recommendations and referrals: Individual therapy through [facility] - referral completed online [facility] at [facility] [place] - information shared with campus wellness coordinator [facility] - follow up with PCP for referral ED provider consulted re: recommendations and is in agreement with plan of care. Pt and her daughter were given information for PHP and [facility].
== END 2020-07-12 02:30 | disposition home or self-care (01) ==
PROVIDERS: Physician Assistant; Emergency Provider Student in an Organized Health Care Education/Training Program; PCP Internal Medicine
DX: F32.9 Major depressive disorder, single episode, unspecified (principal); M79.10 Myalgia, unspecified site; F41.9 Anxiety disorder, unspecified; R45.851 Suicidal ideations; E78.5 Hyperlipidemia, unspecified; I10 Essential (primary) hypertension; E11.9 Type 2 diabetes mellitus without complications; Z79.02 Long term (current) use of antithrombotics/antiplatelets; Z79.4 Long term (current) use of insulin; Z79.899 Other long term (current) drug therapy; Z20.822 Contact with and (suspected) exposure to COVID-19
CPT/HCPCS: 0241U; 36415; 70450; 71045; 80048; 80076; 80307; 81003; 82140; 83690; 83735; 83880; 84484; 85025; 85610; 85730; 93005; 94640; 96360; 99284

== ENCOUNTER 2020-08-14 13:26 | Outpatient (REF) | payer MEDICARE, MEDICAID, SELFPAY | END 2020-08-14 13:27 | disposition home or self-care (01) | LOC: HO.HAP 13:26 | PROVIDERS: Visit Provider Internal Medicine | DX: Z46.1 Encounter for fitting and adjustment of hearing aid (principal); H90.3 Sensorineural hearing loss, bilateral | CPT/HCPCS: V5011; V5020; V5160; V5261; V5266 ==

== ENCOUNTER 2020-11-06 11:00 | Outpatient (REF) | payer MEDICARE, SELFPAY ==
--- NOTE | ~2020-11-06 | XR_ITS ---
EXAMINATION: XR CHEST CLINICAL INFORMATION: Acute respiratory failure COMPARISON: Previous chest x-rays most recent July 2020 TECHNIQUE: 2 views of the chest were obtained. FINDINGS: The cardiac silhouette is slightly enlarged but stable. The right pulmonary hilum appears slightly prominent on the PA view. This is stable from multiple old exams. Hilar and mediastinal contours are otherwise unremarkable. The lung volumes are low. The lungs are clear. There is no pleural effusion or pneumothorax. There are degenerative changes of the spine. There is a gastric lap band. XR/XR chest 2V IMPRESSION: Slightly enlarged cardiac silhouette and low lung volumes. No evidence for acute disease in the chest.
[2020-11-06 13:15] LABS: MANUAL DIFF FLAG NO
[2020-11-06 13:25] LABS: Basophils Percent Auto 0.2 % (0-2); Eosinophils Absolute Auto 0.2 X10*3/uL (0.0-0.4); Eosinophils Percent Auto 1.5 % (0-4); Hematocrit 34.6 % (37-47); Imm Gran Abs Auto 0.05 X10*3/uL (0.00-0.03); Imm Gran Pct Auto 0.5 % (0.0-0.4); Lymphocytes Absolute Auto 2.6 X10*3/uL (1.2-4.9); Lymphocytes Percent Auto 26.4 % (20-40); Mean Corpuscular HGB Conc 31.8 g/dl (31.0-35.0); Mean Corpuscular Hemoglobin 27.8 pg (27.0-33.0); Mean Corpuscular Volume 87.4 fL (80-98); Mean Platelet Volume 9.5 fL (9.4-12.3); Monocytes Absolute Auto 0.5 X10*3/uL (0.1-1.2); Monocytes Percent Auto 5.6 % (2-11); Neutrophils Absolute Auto 6.4 X10*3/uL (2.0-8.3); Neutrophils Percent Auto 65.8 % (45-73); Platelet Count 288 X10*3/uL (160-400); Red Blood Count 3.96 X10*6/uL (4.20-5.50); Red Cell Distribution Width 17.3 % (11.0-16.0); White Blood Count 9.7 X10*3/uL (4.8-10.8)
[2020-11-06 13:34] LABS: D Dimer < 200 NG/ML
[2020-11-06 13:44] LABS: Alanine Aminotransferase 13 U/L (0-31); Albumin Level 3.6 g/dL (3.5-5.0); Alkaline Phosphatase 85 U/L (39-117); Anion Gap 14 (12-20); Aspartate Amino Transferase 14 U/L (5-31); Bilirubin Direct 0.2 mg/dL (0.0-0.5); Bilirubin Total 0.5 mg/dL (0.0-1.0); Blood Urea Nitrogen 22 mg/dL (9-16); Calcium 8.6 mg/dL (8.4-10.2); Carbon Dioxide 20 mmol/L (22-29); Chloride 107 mmol/L (96-108); Estimated Glomerular Filt Rate 58; Glucose Random 273 mg/dL (60-115); Potassium 4.4 mmol/L (3.3-5.1); Sodium 137 mmol/L (135-145); Total Protein 6.1 g/dL (6.5-8.0)
[2020-11-06 14:14] LABS: Erythrocyte Sedimentation Rate 16 MM/HR (0-20)
== END 2020-11-06 11:01 | disposition home or self-care (01) ==
LOC: HO.LAB 11:00
PROVIDERS: PCP Internal Medicine; Visit Provider Hospitalist
DX: J96.00 Acute respiratory failure, unspecified whether with hypoxia or hypercapnia (principal); G47.33 Obstructive sleep apnea (adult) (pediatric); J44.9 Chronic obstructive pulmonary disease, unspecified; Z99.81 Dependence on supplemental oxygen
CPT/HCPCS: 36415; 71046; 80048; 80076; 84484; 85025; 85379; 85652; Q3014

== ENCOUNTER → 2021-01-05 10:49 | Outpatient (BNVA) | payer MEDICARE, SELFPAY | PROVIDERS: PCP Internal Medicine; Visit Provider Hospitalist | DX: G47.33 Obstructive sleep apnea (adult) (pediatric) (principal); J44.9 Chronic obstructive pulmonary disease, unspecified; R05.9 Cough, unspecified | CPT/HCPCS: 99212 ==

== ENCOUNTER → 2021-02-11 15:11 | Outpatient (BNVA) | payer MEDICARE, SELFPAY | PROVIDERS: PCP Internal Medicine; Referring Provider Internal Medicine; Visit Provider Internal Medicine Cardiovascular Disease | DX: I51.7 Cardiomegaly (principal) | CPT/HCPCS: 99202 ==

== ENCOUNTER 2021-03-11 14:13 | Outpatient (REF) | payer MEDICARE, SELFPAY ==
--- NOTE | ~2021-03-11 | CT_ITS ---
EXAMINATION: CT CHEST WITHOUT CONTRAST CLINICAL INFORMATION: R09.89. Other specified symptoms and signs involving the... COMPARISON: Chest x-ray 11/06/2020. TECHNIQUE: Multidetector volumetric CT imaging of the chest was done. Axial MIP volume rendering provided. Sagittal and coronal reformatted images were obtained. This CT examination was performed using dose optimization techniques as appropriate, variously including the following: *Automated exposure control *Adjustment of mA and/or kV according to patient size (this includes techniques or standardized protocols for targeted exams where dose is matched to indication/reason for exam; i.e. extremities or head) *Use of iterative reconstruction technique DLP: 271 mGy-cm FINDINGS: LUNGS: Nonspecific mosaic attenuation in the lungs with an upper lobe predominance. There are few scattered pulmonary cysts. There is no suspicious nodule or mass lesion. There is no dense consolidation. MEDIASTINUM: LAD and RCA coronary calcium. No pericardial effusion. No mediastinal adenopathy. The main pulmonary artery is dilated measuring 3.5 cm consistent with pulmonary hypertension. PLEURA: There is no pleural effusion. No pleural mass or thickening. AXILLA: No lymphadenopathy. UPPER ABDOMEN: Gastric band. OSSEOUS STRUCTURES: Degenerative changes in the spine. CT/CT chest wo con IMPRESSION: Nonspecific mosaic attenuation in the lungs. This may represent chronic small airways disease. The possibility of a viral pneumonia cannot be excluded. Recommend clinical correlation. Fleischner guidelines were followed.
== END 2021-03-11 14:14 | disposition home or self-care (01) ==
LOC: HO.CT 14:13
PROVIDERS: Visit Provider Hospitalist
DX: J96.00 Acute respiratory failure, unspecified whether with hypoxia or hypercapnia (principal); J44.9 Chronic obstructive pulmonary disease, unspecified; I51.7 Cardiomegaly; Z98.84 Bariatric surgery status
CPT/HCPCS: 71250

== ENCOUNTER 2021-03-18 14:05 | Outpatient (REF) | payer MEDICARE, SELFPAY ==
[2021-03-18 15:23] LABS: MANUAL DIFF FLAG NO
[2021-03-18 15:24] LABS: Basophils Percent Auto 0.3 % (0-2); Eosinophils Absolute Auto 0.2 X10*3/uL (0.0-0.4); Hematocrit 38.1 % (37.0-47.0); Hemoglobin 12.1 g/dl (12.0-16.0); Imm Gran Abs Auto 0.04 X10*3/uL (0.00-0.03); Imm Gran Pct Auto 0.4 % (0.0-0.4); Lymphocytes Absolute Auto 2.9 X10*3/uL (1.2-4.9); Lymphocytes Percent Auto 30.4 % (20-40); Mean Corpuscular HGB Conc 31.8 g/dl (31.0-35.0); Mean Corpuscular Hemoglobin 29.4 pg (27.0-33.0); Mean Corpuscular Volume 92.5 fL (80.0-98.0); Mean Platelet Volume 9.7 fL (9.4-12.3); Monocytes Absolute Auto 0.6 X10*3/uL (0.1-1.2); Monocytes Percent Auto 5.9 % (2-11); Neutrophils Absolute Auto 5.7 x10*3/uL (2.0-8.3); Platelet Count 274 X10*3/uL (160-400); Red Blood Count 4.12 X10*6/uL (4.20-5.50); Red Cell Distribution Width 13.4 % (11.0-16.0); White Blood Count 9.4 X10*3/uL (4.8-10.8)
[2021-03-18 16:15] LABS: Erythrocyte Sedimentation Rate 12 MM/HR (0-20)
[2021-03-22 13:36] LABS: IgA 210 mg/dL (70-320); IgG 968 mg/dL (600-1540); IgM 42 mg/dL (50-300)
== END 2021-03-18 14:06 | disposition home or self-care (01) ==
LOC: HO.LAB 14:05
PROVIDERS: PCP Internal Medicine; Visit Provider Hospitalist
DX: J45.40 Moderate persistent asthma, uncomplicated (principal); J44.9 Chronic obstructive pulmonary disease, unspecified; R05.9 Cough, unspecified; G47.33 Obstructive sleep apnea (adult) (pediatric)
CPT/HCPCS: 36415; 82784; 82785; 85025; 85652; 86003; 99212

== ENCOUNTER → 2021-05-07 10:27 | Outpatient (BNVA) | payer MEDICARE, SELFPAY | PROVIDERS: PCP Internal Medicine; Visit Provider Hospitalist | DX: J44.9 Chronic obstructive pulmonary disease, unspecified (principal); J45.41 Moderate persistent asthma with (acute) exacerbation; G47.33 Obstructive sleep apnea (adult) (pediatric); R05.9 Cough, unspecified | CPT/HCPCS: 99212 ==

== ENCOUNTER 2021-05-09 13:23 | Emergency (ER) | payer MEDICARE, SELFPAY ==
[2021-05-09 13:47] VITALS: BP 181/65; PULSE 93; RESP 20; TEMP 36.8; O2SAT 93; BMI 38.0
[2021-05-09 16:44] LABS: MANUAL DIFF FLAG NO
[2021-05-09 16:45] LABS: Basophils Percent Auto 0.3 % (0-2); Eosinophils Absolute Auto 0.1 X10*3/uL (0.0-0.4); Eosinophils Percent Auto 1.4 % (0-4); Hematocrit 38.3 % (37.0-47.0); Hemoglobin 12.1 g/dl (12.0-16.0); Imm Gran Abs Auto 0.02 X10*3/uL (0.00-0.03); Imm Gran Pct Auto 0.2 % (0.0-0.4); Lymphocytes Absolute Auto 2.7 X10*3/uL (1.2-4.9); Mean Corpuscular HGB Conc 31.6 g/dl (31.0-35.0); Mean Corpuscular Hemoglobin 29.3 pg (27.0-33.0); Mean Corpuscular Volume 92.7 fL (80.0-98.0); Monocytes Absolute Auto 0.7 X10*3/uL (0.1-1.2); Monocytes Percent Auto 8.6 % (2-11); Neutrophils Percent Auto 58.5 % (45-73); Platelet Count 294 X10*3/uL (160-400); Red Blood Count 4.13 X10*6/uL (4.20-5.50); Red Cell Distribution Width 14.4 % (11.0-16.0); White Blood Count 8.6 X10*3/uL (4.8-10.8)
[2021-05-09 17:00] LABS: Anion Gap 11 (12-20); Blood Urea Nitrogen 18 mg/dL (9-16); Carbon Dioxide 28 mmol/L (22-29); Chloride 106 mmol/L (96-108); Creatinine Clr Calc Pharmacy 57.2; Estimated Glomerular Filt Rate 60; Glucose Random 139 mg/dL (60-115); Potassium 4.2 mmol/L (3.3-5.1); Sodium 141 mmol/L (135-145)
[2021-05-09 17:09] LABS: Troponin-I High Sensitivity 4.1 ng/L (<3.5-17.0)
== END 2021-05-09 18:36 | disposition left against medical advice (07) ==
PROVIDERS: Emergency Provider Emergency Medicine; PCP Internal Medicine
DX: M79.645 Pain in left finger(s) (principal); R20.0 Anesthesia of skin; Z79.899 Other long term (current) drug therapy
CPT/HCPCS: 36415; 80048; 84484; 85025; 99282

== ENCOUNTER → 2021-05-13 13:36 | Outpatient (REF) | payer MEDICARE, SELFPAY ==
--- NOTE | 2021-05-13 13:39 | CA_ITS ---
Transthoracic Echocardiogram Patient (Last, First, Middle): Madeleine Ledezma, Gender: Female Date of : 1950 Age: 70 Procedure Date: 05/13/2021 Procedure Type: Transthoracic Echocardiogram Location: OP Height: 157.48 cm Weight: 88.45 kg BSA: 1.89 m2 Heart Rate: bpm BP: 122 / 80 mmHg Narcotics And/Or Vice Detective: FLAKITA Hemphill MD: Олег Longoria MD Symptoms: I51.7 - Cardiomegaly Study Quality: Fair Conclusions: - Normal left ventricular size and systolic function. There is severely increased left ventricular wall thickness. - Diastolic function is indeterminate on the basis of available data. - Normal right ventricular cavity size and systolic function. - There is severe mitral annular calcification. Findings Left Ventricle Normal left ventricular size and systolic function. There is severely increased left ventricular wall thickness. The visually estimated ejection fraction is between 65-70%. There is no evidence of regional wall motion abnormalities. Diastolic function is indeterminate on the basis of available data. Right Ventricle Normal right ventricular cavity size and systolic function. Atria Both atria are normal in size. Aortic Valve There is a normal trileaflet aortic valve. There is no aortic valve stenosis. There is no aortic valve regurgitation. Mitral Valve There is severe mitral annular calcification. There is no mitral valve regurgitation. There is no mitral valve stenosis. Pulmonic Valve Normal pulmonic valve structure and function. There is trace pulmonic valve regurgitation. Tricuspid Valve Normal tricuspid valve structure. There is no tricuspid valve regurgitation. Tricuspid regurgitation envelope is inadequate for calculation of right ventricular systolic pressure. Normal right atrial pressure. Great Vessels All visible segments of the aorta are normal in size. The visualized portions of the pulmonary artery and branches are normal. Venous The inferior vena cava is normal in size and collapses greater than 50% with inspiration. Pericardium/Pleural There is no evidence of pericardial effusion. Measurements 2D Linear Measurements IVSd: 1.45 0.6-0.9/0.6-1.0 cm LVIDd: 3.70 3.9-5.3/4.2-5.9 cm LVIDd Index: 1.96 2.4-3.2/2.2-3.1 cm/m2 LVIDs: 2.59 2.0-3.6 cm LVPWd: 1.43 0.7-1.1 cm LA Diam: 3.70 2.7-3.8/3.0-4.0 cm LAIDs Index: 1.96 1.5-2.3 cm/m2 LV Mass: 243.61 67-162/88-224 g LV Mass Index: 128.89 43-95/49-115 g/m2 LVOT Diam: 2.20 3.0+(-)1.3 cm 2D Systolic Function EF 4C: 55.90 >55% EF 2C: 59.10 >55% EF BiP: 57.00 >55% Mitral Valve MV VTI: 0.33 MV Pk Tone: 1.74 MV Mn Tone: 1.10 MV Pk Grad: 12.00 MV Mn Grad: 5.00 MV Pk E: 1.02 MV PK A: 1.53 MV Decel Time: 192.00 E/A: 0.70 E'Lateral: 5.77 E'Medial: 4.35 E/E' Med: 23.40 E/E' Lat: 17.70 PHT: 56.00 MVA PHT: 3.93 MVA Continuity: 2.25 Decel [place]: 5.33 Aortic Valve AoV Pk Tone: 1.78 AoV Mn Tone: 1.28 AoV VTI: 0.28 AoV Pk Grad: 13.00 Aov Mn Grad: 7.00 VY Cont.VTI: 2.66 LVOT LVOT Pk Tone: 0.98 LVOT Mn Tone: 0.76 LVOT VTI: 0.20 LVOT Pk Grad: 4.00 LVOT Mn Grad: 3.00 LVOT Diam: 2.20 LVOT Area: 3.80 Diastolic Function MV Pk E: 1.02 MV Pk A: 1.53 E/A: 0.70 E'Medial: 4.35 E/E' Med: 23.40 E' Laterial: 5.77 E/E' Lat: 17.70 Right Ventricle TAPSE (mm): 16.90 TVS' Tone: 12.00 Tricuspid Valve TR Pk Tone: 1.33 TR Pk Grad: 7.00 RA Press: 3.00 RVSP: 10.00 Great Vessels Aorta Sinus of Valsalva: 3.01 2.0-3.5 cm Ao Asc: 3.10 2.1-3.4 cm Ao Arch: 2.60 Updated in Other Vendor System with Status of Final Олег Longoria MD electronically signed on 05/13/2021 3:38:26 PM with status of Final
== END ==
LOC: HO.CARD 13:36
PROVIDERS: Visit Provider Internal Medicine Cardiovascular Disease
DX: I51.7 Cardiomegaly (principal)
CPT/HCPCS: 93306

== ENCOUNTER 2021-05-20 13:16 | Outpatient (REF) | payer MEDICARE, SELFPAY ==
[2021-05-20 14:28] LABS: Appearance Urine CLOUDY; Color Urine YELLOW; Glucose Urine UA NEG (NEG); Leukocyte Esterase Urine 3+ (NEG); Nitrite Urine NEG (NEG); Urine Blood 3+ (NEG); Urine Ketones NEG (NEG); Urine Protein 2+ MG/DL (NEG-TRACE)
[2021-05-20 14:51] LABS: RBC Urine TNTC /HPF (0)
[2021-05-20 14:52] LABS: Bacteria Urine 1+ /LPF; Squamous Epithelial Cell Urine 1+ /LPF
== END 2021-05-20 13:17 | disposition home or self-care (01) ==
LOC: HO.LAB 13:16
PROVIDERS: PCP Internal Medicine; Visit Provider Internal Medicine
DX: R30.0 Dysuria (principal)
CPT/HCPCS: 81001; 87086; 87088; 87186

== ENCOUNTER 2021-05-21 13:40 | Outpatient (REF) | payer MEDICARE, SELFPAY | END 2021-05-21 13:41 | disposition home or self-care (01) | LOC: HO.HAP 13:40 | PROVIDERS: Visit Provider Internal Medicine | DX: Z13.89 Encounter for screening for other disorder (principal) ==

== ENCOUNTER 2021-06-24 12:47 | Outpatient (REF) | payer OTHER, SELFPAY ==
--- NOTE | ~2021-06-24 | MM_ITS ---
EXAMINATION: MM SCREENING DIGITAL BREAST TOMOSYNTHESIS, BILATERAL CLINICAL INFORMATION: Screening. Asymptomatic. Status post breast reduction surgery. The lifetime risk of breast cancer based on the Tyrer-Cuzick Model is 7%. COMPARISON: Mammography: July 10, 2012 and studies dating back to October 01, 2007. TECHNIQUE: Digital breast tomosynthesis is performed in both the craniocaudal and mediolateral oblique views along with computer-aided detection (CAD). Synthesized 2D images are generated from the tomosynthesis. Additional right exaggerated craniocaudal view performed. FINDINGS: The breasts are almost entirely fatty (ACR BI-RADS breast composition Category a). There are no new significant masses, abnormal calcifications, or other abnormalities. There are stable postsurgical change from breast reduction surgery with dystrophic calcifications. MM/MM tomosynthesis screening BI IMPRESSION: There are no significant changes from prior study. ASSESSMENT: BI-RADS 2: Benign RECOMMENDATION: Routine annual mammography screening. This patient's information was entered into a reminder system with a target due date for their next mammogram.
--- NOTE | ~2021-06-24 | MM_ITS ---
EXAMINATION: BONE DENSITOMETRY CLINICAL INDICATION: Encounter for screening for osteoporosis. Asymptomatic menopausal state. COMPARISON: This is the patient's baseline examination. TECHNIQUE: Using a [employer] DXA System (software version: 13.1) manufactured by [employer], dual-energy x-ray absorptiometry was performed of the lumbar spine and left hip. The images are of good technical quality. Summary results are attached. FINDINGS: AP SPINE L1-L2 (excluding L3 and L4): The data of L1-L4 has been changed to exclude the L3 and L4 vertebral bodies, because degenerative change at these levels may cause overestimation of lumbar spine density. BMD 1.245 g/cm2, Z-score 1.5, T-score 0.7, normal. LEFT FEMUR, NECK: BMD 1.214 g/cm2, Z-score 2.3, T-score 1.3, normal. LEFT FEMUR, TOTAL: BMD 1.259 g/cm2, Z-score 2.8, T-score 2.0, normal. IDENTIFIED RISK FACTORS: Height loss. Dementia. Secondary osteoporosis, (early menopause, part of stomach removed). Osteoporosis. HISTORY OF FRACTURE: None listed. MEDICATIONS: Calcium or multivitamin. Vitamin D. MM/XR DEXA axial skeleton IMPRESSION: 1. DIAGNOSIS: Normal bone density based on the lowest T-score value of 0.7 in the lumbar spine applying World Health Organization criteria. 2. 10-YEAR FRACTURE RISK PREDICTION, FRAX: Major osteoporotic fracture (clinical spine, forearm, hip or shoulder) 2.8%. Hip fracture 0.0%. 3. Treatment Recommendations: NOF guidelines recommend consideration for treatment in postmenopausal women and men age 50 and older presenting with the following: -A hip or vertebral (clinical or morphometric) fracture. -T-score less than or equal to -2.5 at the femoral neck or spine after appropriate evaluation to exclude secondary causes. -Low bone mass at the hip or spine and a 10-year fracture probability by FRAX of greater than or equal to 3% for hip fracture or greater than or equal to 20% for major osteoporotic fracture based on the [place] adapted WHO algorithm. 4. Other Recommendations: All treatment decisions require clinical judgment and consideration of individual patient factors, including patient preferences, comorbidities, previous drug use, risk factors not captured in the FRAX model (e.g. frailty, falls, vitamin D deficiency, increased bone turnover, interval significant decline in bone density) and possible under or overestimation of fracture risk by FRAX. FUTURE SCAN RECOMMENDATION: People with diagnosed cases of osteoporosis or at high risk for fracture should have regular bone mineral density tests. For patients eligible for Medicare, routine testing is allowed once every 2 years. The testing frequency can be increased to one year for patients who have rapidly progressing disease, those who are receiving or discontinuing medical therapy to restore bone mass, or have additional risk factors.
== END 2021-06-24 12:48 | disposition home or self-care (01) ==
LOC: HO.MAMMO 12:47
PROVIDERS: Visit Provider Internal Medicine
DX: Z12.31 Encounter for screening mammogram for malignant neoplasm of breast (principal); Z13.820 Encounter for screening for osteoporosis; M85.80 Other specified disorders of bone density and structure, unspecified site; Z78.0 Asymptomatic menopausal state
CPT/HCPCS: 77063; 77067; 77080

== ENCOUNTER 2021-09-07 18:29 | Emergency (ER) | payer OTHER, SELFPAY ==
--- NOTE | ~2021-09-07 | XR_ITS ---
EXAMINATION: XR HIP, RIGHT CLINICAL INFORMATION: Right hip pain COMPARISON: 09/26/2015 TECHNIQUE: Two views of the right hip. Frontal view of the pelvis. FINDINGS: No fracture or dislocation. The hips are well aligned. Joint spaces are maintained. The pelvic rim is intact. The sacroiliac joints and pubic symphysis are intact. Normal bowel gas pattern. XR/XR hip RT w PEL1V IMPRESSION: Normal right hip.
[2021-09-07 20:30] VITALS: BP 151/87; PULSE 76; RESP 16; TEMP 36.3; O2SAT 99; BMI 38.0
[2021-09-07 22:36] VITALS: BP 160/46; PULSE 81; RESP 18; TEMP 36.8; O2SAT 96
[2021-09-08 00:44] LABS: Appearance Urine HAZY; Color Urine YELLOW; Glucose Urine UA NEG (NEG); Leukocyte Esterase Urine NEG (NEG); Nitrite Urine POS (NEG); Specific Gravity - Urine >= 1.030 (1.005-1.025); UACC Culture Trigger YES; Urine Blood NEG (NEG); Urine Ketones NEG (NEG); Urine Protein NEG (NEG-TRACE)
[2021-09-08 00:54] LABS: Bacteria Urine 1+ /LPF; Mucus Urine 1+ /LPF; RBC Urine 0-2 /HPF (0); Squamous Epithelial Cell Urine 2+ /LPF
--- NOTE | 2021-09-08 01:02 | ED_ITS ---
HPI - Back Pain/Injury General Chief Complaint: Back Pain/Injury Stated Complaint: lower back pain rad to R leg Time Seen by Provider: 09/07/21 21:07 Source: patient Mode of arrival: ambulatory History of Present Illness HPI Narrative: 71yo F with PMHx arthritis, asthma, DM, fibromyalgia, HTN, HLD, COPD, preserning to the ED c/o R hip/buttock pain radiating down RLE x3 days. Reports pain worsened with movement and walking, difficulty walking from pain. At baseline ambulates with walker. Denies injury, trauma, fall, numbness/tingling, incontinence/retention MD elicited complaint: back pain Pertinent past history: prior back pain Onset (ago): day(s) Related Data Home Medications Medication Instructions Recorded Confirmed atorvastatin 20 mg tablet 20 mg PO DAILY 02/06/20 02/12/21 clonazepam 0.5 mg tablet 0.5 mg PO BID PRN 02/06/20 02/12/21 duloxetine 60 mg capsule,delayed mg PO 02/06/20 02/12/21 release ibuprofen 600 mg tablet 600 mg PO TID 02/06/20 02/12/21 insulin aspart U-100 100 unit/mL 6 - 16 unit subcut DAILY 02/06/20 02/12/21 (3 mL) subcutaneous pen lisinopril 10 mg tablet 10 mg PO DAILY 02/06/20 02/12/21 meloxicam 7.5 mg tablet 7.5 mg PO BID PRN 02/06/20 02/12/21 metformin 1,000 mg tablet 1,000 mg PO BID 02/06/20 02/12/21 omeprazole 20 mg capsule,delayed 20 mg PO DAILY 02/06/20 02/12/21 release zolpidem 10 mg tablet 10 mg PO BEDTIME 02/06/20 02/12/21 liraglutide 0.6 mg/0.1 mL (18 mg/3 1.8 mg subcut DAILY 04/21/20 02/12/21 mL) subcutaneous pen injector donepezil 5 mg tablet 5 mg PO DAILY 11/06/20 02/12/21 montelukast 10 mg tablet 10 mg PO DAILY 11/06/20 02/12/21 insulin glargine 100 unit/mL (3 unit subcut 01/05/21 02/12/21 mL) subcutaneous pen Previous Rx's Medication Instructions Recorded budesonide 0.5 mg/2 mL suspension 0.5 mg (2 mL) inhalation BID #120 02/06/20 for nebulization mL benzonatate 200 mg capsule 200 mg PO TID PRN cough 30 days 04/21/20 #45 caps walker #1 ea 07/12/20 nystatin 500,000 unit tablet 500,000 unit PO TID 10 days #30 02/18/21 tabs albuterol sulfate 90 mcg/actuation 2 puff PO QID 30 days #8.5 grams 03/18/21 aerosol inhaler azelastine 137 mcg (0.1 %) nasal 2 spray intranasal BID 30 days #30 03/18/21 spray aerosol mL budesonide-formoterol HFA 160 2 puff PO BID #10.2 grams 03/18/21 mcg-4.5 mcg/actuation aerosol inhaler fluconazole 100 mg tablet 100 mg PO DAILY 7 days #7 tabs 03/18/21 (Diflucan) tiotropium bromide 2.5 2 puff inhalation DAILY 30 days #4 03/18/21 mcg/actuation mist for inhalation grams (Spiriva Respimat) roflumilast 250 mcg tablet 250 mcg PO DAILY 30 days #30 tabs 05/07/21 (Daliresp) fluticasone propionate 50 2 spray intranasal DAILY #16 grams 05/10/21 mcg/actuation nasal spray,suspension acetaminophen 500 mg tablet 500 mg PO Q6H PRN fever or pain 09/08/21 (Tylenol Extra Strength) #14 tabs cefuroxime axetil 250 mg tablet 250 mg PO BID 7 days #14 tabs 09/08/21 cyclobenzaprine 5 mg tablet 5 mg PO Q8H PRN pain (scale score 09/08/21 7-10) 5 days #14 tabs lidocaine 5 % topical patch 1 patch topical DAILY PRN pain #30 09/08/21 (Lidoderm) ea naproxen 500 mg tablet 500 mg PO BID PRN pain 10 days #20 09/08/21 tabs tramadol 50 mg tablet 50 mg PO Q8H PRN pain, severe #9 09/08/21 tabs Allergies Allergy/AdvReac Type Severity Reaction Status Date / Time aspirin [ASPIRIN] Allergy Intermediate GI UPSET, Verified 05/07/21 10:32 stomach pain latex [LATEX] Allergy Intermediate HIVES Verified 05/07/21 10:32 Review of Systems Review of Systems: Constitutional: No Fever, No Chills ENT/Mouth: No Ear Pain, No Nasal Congestion, No Sinus Pain, No Hoarseness, No sore throat, No Rhinorrhea, No Swallowing Difficulty Cardiovascular: No Chest Pain, No SOB Respiratory: No Cough, No Sputum, No Wheezing Gastrointestinal: No Nausea, No Vomiting, No Diarrhea, No Constipation, No Abdominal pain Genitourinary: No Dysuria, No Urinary Frequency, No Hematuria, No Urinary Incontinence/retention, No Urgency, No Flank Pain Musculoskeletal: + joint pain, No Myalgias, No Joint Swelling Skin: No Skin Lesions, No rash Neuro: No Weakness, No Numbness, No Paresthesias Yes all other systems are reviewed and are negative Neurologic: Denies Sensory deficit (Neuro) [facility] Past Medical History Attestation statement: The following information was validated with the patient. Medical History (Updated 09/08/21 @ 01:16 by KULWANT Reynolds) Acute respiratory failure Arnold-Chiari malformation Arthritis Asthma Asthma-COPD overlap syndrome Cardiomegaly Chest crackles Cough Diabetes Fibromyalgia Hyperlipidemia Hypertension CASSANDRA treated with BiPAP Sinusitis Surgical History H/O bilateral breast reduction surgery H/O brain surgery Hx of laparoscopic gastric banding Family History Family History (Updated 02/11/21 @ 15:21 by WAQAR Abdi) Mother HTN (hypertension) Breast cancer Father Primary cancer of bone marrow Social History Social History (Updated 02/11/21 @ 15:21 by WAQAR Abdi) Alcohol intake: never Patient Tobacco Use Status: Former Tobacco user Quit Date: 1979 Years Smoked: 15 +/- Advance Directives: No Advance Directives Information Provided: No Physical Exam Vital Signs: Vital Signs: Last Vital Signs Temp 98.2 F 09/07/21 22:36 Pulse 81 09/07/21 22:36 Resp 18 09/07/21 22:36 BP 160/46 H 09/07/21 22:36 Pulse Ox 96 09/07/21 22:36 O2 Del Method 09/07/21 22:36 BMI result Body Mass Index 38.0 Const: General: cooperative, healthy appearing and no acute distress Orientation/consciousness: patient oriented x3 Limitations: no limitations HEENT: Head: Yes normal to inspection and Yes atraumatic Ears: hearing grossly normal bilaterally General nose exam: Normal external nose present Face and sinus: Yes normal facial exam Eyes: General: appearance normal, both eyes and all related structures EOM: EOMs intact bilaterally Neck: Other: no midline cervical spinous ttp Neck: Yes normal visual inspection and Yes no meningeal signs Resp: Effort & Inspection: normal respiratory effort and no respiratory distress Cardio: Rate: regular rate Heart sounds: S1 normal heart sound present and S2 normal heart sound present Back/Spine/Pelvis: Other: No midline thoracic/lumbar spinous tenderness/step-off or deformity. right hip and buttock ttp, no appreciable deformity/erythema/ecchymosis. Limited hip ROM 2/2 pain. NV intact distally. Skin: Rashes: no rashes Wounds: no wounds Neuro: Other: Strength intact throughout. No saddle anesthesia. Sensation intact to light touch. Neurovascular intact distally. Ambulating steadily in the ED with little assistance General: patient oriented x3, gait normal, tone normal, moves all extremities, no meningeal signs, no focal motor deficits and deep tendon reflexes 2+ bilaterally Gait exam (Neuro): Normal gait present Motor exam (neuro): 5/5 motor strength present throughout Sensory Exam: No Sensory deficit (Neuro) Extrem: General: Yes normal to inspection Course Course Course Narrative: UA ordered in triage and infected > Ceftin sent to pharmacy. No CVAT MDM - Back Pain/Injury MDM Narrative Medical decision making narrative: 71yo F with PMHx arthritis, asthma, DM, fibromyalgia, HTN, HLD, COPD, preserning to the ED c/o R hip/buttock pain radiating down RLE x3 days. On exam VSS, NAD, well appearing, PE as above. No midline spinous ttp, no red flag sx or saddle anesthesia. Ambulating in the ED steadily. Concern for MSK pain/strain vs OA vs sciatica vs IT band strain. Low concern for pyelo/renal stone or UTI or septic joint/arthritis Plan: XR, pain management Differential Diagnosis Differential diagnosis: Likely lumbar radiculopathy, sciatica and strain of lumbar region Medical Records Attestation: I reviewed the patient's medical records. Lab Data Attestation: I reviewed the patient's lab results. Labs: Lab Results 09/08/21 Range/Units 00:38 Urine Color YELLOW Urine Appearance HAZY Urine pH 6.0 (5.0-8.0) Ur Specific [place] >= 1.030 H (1.005-1.025) Urine Protein NEG (NEG-TRACE) MG/DL Urine Glucose (UA) NEG (NEG) MG/DL Urine Ketones NEG (NEG) MG/DL Urine Blood NEG (NEG) Urine Nitrite POS H (NEG) Ur Leukocyte Esterase NEG (NEG) Urine RBC 0-2 (0) /HPF Urine WBC 5-9 H (0-4) /HPF Ur Squamous Epith Cells 2+ /LPF Urine Bacteria 1+ /LPF Urine Mucus 1+ /LPF Discharge Plan Discharge Clinical Impression: Iliotibial band tendonitis, Sciatica, Acute UTI Patient Disposition: Home, Self-Care Instructions: Sciatica (ED) Additional Instructions: Your pain is likely musculoskeletal Flexeril is a muscle relaxer, take at night as it makes you drowsy, do not drive, drink alcohol, or operate machinery while taking it Naproxen as an anti-inflammatory / pain medication, take with food Lidoderm patches are numbing patches, apply to painful area In addition take Tylenol at home Tramadol is an opiate pain medication take when pain is severe for the next 3 days If symptoms persist or worsen, pain becomes unbearable, you developed urinary retention or incontinence, or weakness return to the ED Prescriptions: New tramadol 50 mg tablet 50 mg PO Q8H PRN (Reason: pain, severe) Qty: 9 0RF acetaminophen [Tylenol Extra Strength] 500 mg tablet 500 mg PO Q6H PRN (Reason: fever or pain) Qty: 14 0RF lidocaine [Lidoderm] 5 % adhesive patch,medicated 1 patch topical DAILY MDD remove after 12 hours PRN (Reason: pain) Qty: 30 0RF Rx Instructions: leave on most painful area for up to 12 hrs naproxen 500 mg tablet 500 mg PO BID PRN (Reason: pain) 10 Days Qty: 20 0RF cyclobenzaprine 5 mg tablet 5 mg PO Q8H PRN (Reason: pain (scale score 7-10)) 5 Days Qty: 14 0RF cefuroxime axetil 250 mg tablet 250 mg PO BID 7 Days Qty: 14 0RF No Action nystatin 500,000 unit tablet 500,000 unit PO TID 10 Days Qty: 30 0RF fluticasone propionate 50 mcg/actuation spray,suspension 2 spray intranasal DAILY Qty: 16 0RF (ARLEEN) [facility] [place] See Rx Instructions .ROUTE .MEDSUPPLY Qty: 1 0RF Rx Instructions: As directed zolpidem 10 mg tablet 10 mg PO BEDTIME duloxetine 60 mg capsule,delayed release(DR/EC) PO ibuprofen 600 mg tablet 600 mg PO TID omeprazole 20 mg capsule,delayed release(DR/EC) 20 mg PO DAILY lisinopril 10 mg tablet 10 mg PO DAILY clonazepam 0.5 mg tablet 0.5 mg PO BID PRN metformin 1,000 mg tablet 1,000 mg PO BID insulin aspart U-100 100 unit/mL (3 mL) insulin pen 6 - 16 unit subcut DAILY meloxicam 7.5 mg tablet 7.5 mg PO BID PRN atorvastatin 20 mg tablet 20 mg PO DAILY budesonide 0.5 mg/2 mL suspension for nebulization 0.5 mg inhalation BID Qty: 120 11RF liraglutide 0.6 mg/0.1 mL (18 mg/3 mL) pen injector 1.8 mg subcut DAILY insulin glargine 100 unit/mL (3 mL) insulin pen subcut benzonatate 200 mg capsule 200 mg PO TID PRN (Reason: cough) 30 Days Qty: 45 3RF donepezil 5 mg tablet 5 mg PO DAILY montelukast 10 mg tablet 10 mg PO DAILY Spiriva Respimat 2.5 mcg/actuation mist 2 puff inhalation DAILY 30 Days Qty: 4 11RF budesonide-formoterol 160-4.5 mcg/actuation HFA aerosol inhaler 2 puff PO BID Qty: 10.2 11RF albuterol sulfate 90 mcg/actuation HFA aerosol inhaler 2 puff PO QID 30 Days Qty: 8.5 11RF azelastine 137 mcg (0.1 %) aerosol,spray 2 spray intranasal BID 30 Days Qty: 30 6RF Rx Instructions: administer into each nostril fluconazole [Diflucan] 100 mg tablet 100 mg PO DAILY 7 Days Qty: 7 0RF Daliresp 250 mcg tablet 250 mcg PO DAILY 30 Days Qty: 30 11RF Referrals: Jorge Olivas MD [Primary Care Provider] - 3 days
[2021-09-08] MEDS: Lidocaine 4 % Patch ADH..PATCH 1 PATCH TRANSDERMA (01:48)
[2021-09-08] MEDS: Cyclobenzaprine HCl 10 MG TABLET PO (01:48)
[2021-09-08] MEDS: Acetaminophen 325 MG TABLET 650 MG PO (01:49)
[2021-09-08 01:53] VITALS: BP 155/99; PULSE 86; RESP 16; TEMP 36.4; O2SAT 96
== END 2021-09-08 02:32 | disposition home or self-care (01) ==
PROVIDERS: Emergency Medicine; Emergency Provider Internal Medicine; PCP Family Medicine
DX: M54.41 Lumbago with sciatica, right side (principal); M65.261 Calcific tendinitis, right lower leg; M79.7 Fibromyalgia; Z87.891 Personal history of nicotine dependence; Z79.899 Other long term (current) drug therapy
CPT/HCPCS: 73502; 81001; 87086; 99283; 99284

== ENCOUNTER 2021-11-05 15:03 | Emergency (ER) | payer OTHER, SELFPAY ==
[2021-11-05 15:30] VITALS: BP 143/73; PULSE 89; RESP 19; TEMP 36.1; O2SAT 93; BMI 41.0
--- NOTE | 2021-11-05 19:27 | ED_ITS ---
HPI - General Adult General Chief complaint: Back Pain/Injury Stated complaint: cant walk/leg pain Time Seen by Provider: 11/05/21 19:21 Source: patient Mode of arrival: ambulatory Limitations: no limitations History of Present Illness HPI narrative: Patient is a 71 year old female presenting to the emergency department today with bilateral leg pain and low back pain. Patient states that she was recently diagnosed with sciatic nerve pain and given oxycodone but it wasn't really helping her pain, it was just making her sleepy. Patient denies any dizziness, lightheadedness, abdominal pain, nausea, vomiting, fever, chills, blurry vision, double vision, loss of vision, chest pain, difficulty breathing, shortness of breath, night sweats, pain with urination, increased urinary frequency, increased urinary urgency, blood in her urine or stool, syncope or a near syncopal episode, recent trauma or falls, bowel incontinence, bowel retention, bladder retention, or any other complaints at this time. Patient has urinary incontinence at baseline. Onset (ago): day(s) Location: back Severity: mild Severity scale (1-10): 3 Quality: sharp Pain Consistency: constant Relieving factors: none Exacerbating factors: none Associated symptoms: denies other symptoms Treatments prior to arrival: none Related Data Home Medications Medication Instructions Recorded Confirmed atorvastatin 20 mg tablet 20 mg PO DAILY 02/06/20 02/12/21 clonazepam 0.5 mg tablet 0.5 mg PO BID PRN 02/06/20 02/12/21 duloxetine 60 mg capsule,delayed mg PO 02/06/20 02/12/21 release ibuprofen 600 mg tablet 600 mg PO TID 02/06/20 02/12/21 insulin aspart U-100 100 unit/mL 6 - 16 unit subcut DAILY 02/06/20 02/12/21 (3 mL) subcutaneous pen lisinopril 10 mg tablet 10 mg PO DAILY 02/06/20 02/12/21 meloxicam 7.5 mg tablet 7.5 mg PO BID PRN 02/06/20 02/12/21 metformin 1,000 mg tablet 1,000 mg PO BID 02/06/20 02/12/21 omeprazole 20 mg capsule,delayed 20 mg PO DAILY 02/06/20 02/12/21 release zolpidem 10 mg tablet 10 mg PO BEDTIME 02/06/20 02/12/21 liraglutide 0.6 mg/0.1 mL (18 mg/3 1.8 mg subcut DAILY 04/21/20 02/12/21 mL) subcutaneous pen injector donepezil 5 mg tablet 5 mg PO DAILY 11/06/20 02/12/21 montelukast 10 mg tablet 10 mg PO DAILY 11/06/20 02/12/21 insulin glargine 100 unit/mL (3 unit subcut 01/05/21 02/12/21 mL) subcutaneous pen Previous Rx's Medication Instructions Recorded budesonide 0.5 mg/2 mL suspension 0.5 mg (2 mL) inhalation BID #120 02/06/20 for nebulization mL benzonatate 200 mg capsule 200 mg PO TID PRN cough 30 days 04/21/20 #45 caps walker #1 ea 07/12/20 nystatin 500,000 unit tablet 500,000 unit PO TID 10 days #30 02/18/21 tabs albuterol sulfate 90 mcg/actuation 2 puff PO QID 30 days #8.5 grams 03/18/21 aerosol inhaler azelastine 137 mcg (0.1 %) nasal 2 spray intranasal BID 30 days #30 03/18/21 spray aerosol mL budesonide-formoterol HFA 160 2 puff PO BID #10.2 grams 03/18/21 mcg-4.5 mcg/actuation aerosol inhaler fluconazole 100 mg tablet 100 mg PO DAILY 7 days #7 tabs 03/18/21 (Diflucan) tiotropium bromide 2.5 2 puff inhalation DAILY 30 days #4 03/18/21 mcg/actuation mist for inhalation grams (Spiriva Respimat) roflumilast 250 mcg tablet 250 mcg PO DAILY 30 days #30 tabs 05/07/21 (Daliresp) fluticasone propionate 50 2 spray intranasal DAILY #16 grams 05/10/21 mcg/actuation nasal spray,suspension acetaminophen 500 mg tablet 500 mg PO Q6H PRN fever or pain 09/08/21 (Tylenol Extra Strength) #14 tabs cefuroxime axetil 250 mg tablet 250 mg PO BID 7 days #14 tabs 09/08/21 cyclobenzaprine 5 mg tablet 5 mg PO Q8H PRN pain (scale score 07/06/22 7-10) 5 days #14 tabs lidocaine 5 % topical patch 1 patch topical DAILY PRN pain #30 09/08/21 (Lidoderm) ea naproxen 500 mg tablet 500 mg PO BID PRN pain 10 days #20 09/08/21 tabs tramadol 50 mg tablet 50 mg PO Q8H PRN pain, severe #9 09/08/21 tabs cyclobenzaprine 5 mg tablet 5 mg PO TID PRN back pain 7 days 11/05/21 #21 tabs Allergies Allergy/AdvReac Type Severity Reaction Status Date / Time aspirin [ASPIRIN] Allergy Intermediate GI UPSET, Verified 11/05/21 15:30 stomach pain latex [LATEX] Allergy Intermediate HIVES Verified 11/05/21 15:30 Review of Systems Constitutional: Constitutional: Reports no additional constitutional complaints, Denies chills, Denies fever(s) and Denies night sweats Eyes: Eyes: Reports no additional eye complaints, Denies blurry vision, Denies change in vision, Denies diplopia, Denies eye discharge, Denies loss of vision and Denies eye pain ENT: Denies dizziness Cardiovascular: Cardiovascular: Reports no additional cardiovascular complaints, Denies chest pain, Denies lightheadedness, Denies Loss of Consciousness and Denies dyspnea Respiratory: Respiratory: Reports no additional respiratory complaints and Denies dyspnea Gastrointestinal: Gastrointestinal: Reports no additional gastrointestinal complaints, Denies abdominal pain, Denies melena, Denies hematochezia, Denies change in bowel habits and Denies change in stool character Genitourinary: Genitourinary: Denies hematuria, Denies urinary frequency, Denies dysuria, Denies urinary incontinence, Denies urinary hesitancy and Denies urinary urgency Musculoskeletal: Musculoskeletal: Reports no additional musculoskeletal complaints, Reports back pain, Denies numbness and Denies tingling Neurologic: Denies dizziness, Denies loss of vision, Denies numbness and Denies tingling Psychiatric: Psychiatric: Reports no additional psychiatric complaints Endocrine: Endocrine: Reports no additional endocrine complaints Hematologic/Lymphatic: Hematologic/Lymphatic: Reports no additional hematologic/lymphatic complaints Allergic/Immunologic: Allergic/Immunologic: Reports no additional allergic/immunologic complaints PMFSH Past Medical History Attestation statement: The following information was validated with the patient. Source: old records reviewed Medical History Acute respiratory failure Arnold-Chiari malformation Arthritis Asthma Asthma-COPD overlap syndrome Cardiomegaly Chest crackles Cough Diabetes Fibromyalgia Hyperlipidemia Hypertension CASSANDRA treated with BiPAP Sinusitis Surgical History H/O bilateral breast reduction surgery H/O brain surgery Hx of laparoscopic gastric banding Family History Family History Mother HTN (hypertension) Breast cancer Father Primary cancer of bone marrow Social History Social History Alcohol intake: never Patient Tobacco Use Status: Former Tobacco user Quit Date: 1979 Years Smoked: 15 +/- Advance Directives: No Advance Directives Information Provided: No Physical Exam ED Vital Signs: Vital Signs - 24 hr 11/05/21 15:30 Temperature 97.0 F Pulse Rate 89 Respiratory Rate 19 Blood Pressure 143/73 H Pulse Oximetry 93 Oxygen Delivery Method Room Air BMI result Body Mass Index 41.0 Const General: cooperative, no acute distress, alert and awake Nutritional Appearance: well nourished Orientation/consciousness: patient oriented x3 Limitations: no limitations HENMT Head: Yes normal to inspection and Yes atraumatic Ears: hearing grossly normal bilaterally and external ears normal General nose exam: Normal external nose present, no nasal discharge noted and no epistaxis Face and sinus: Yes normal facial exam, No abrasion and No laceration Mouth: Normal oral and palatal mucosa present, no drooling and no muffled voice Eyes General: appearance normal, both eyes and all related structures Periorbital: periorbital findings normal Eyelids: Yes eyelids normal Conjunctivae: conjunctivae normal Pupils: Equal, round and reactive pupils present EOM: EOMs intact bilaterally Neck Neck: Yes normal visual inspection, Yes full ROM and Yes no lymphadenopathy Chest Chest palpation & inspection: normal inspection of the chest Resp Effort & Inspection: normal respiratory effort and able to speak in complete sentences Auscultation: clear to auscultation bilaterally Cardio Rate: regular rate Rhythm: regular rhythm GI Inspection: Yes normal to inspection General: Yes no CVA tenderness Back/Spine/Pelvis Back: no CVA tenderness Cervical Spine: normal cervical lordosis and cervical ROM normal Thoracic/Lumbar Spine: thoracic and lumbar spine normal to inspection and t horaco-lumbar ROM normal Pelvis: no pain with anterior-posterior compression Neuro General: patient oriented x3 and moves all extremities Cranial nerves: Yes Equal, round and reactive pupils present Cognition (Neuro): normal cognition Motor exam (neuro): 5/5 motor strength present throughout Sensory Exam: Normal double simultaneous stimulation for sensation Coordination: [id number] test normal Extrem General: Yes normal to inspection, Yes full ROM and Yes capillary refill normal Psych Appearance: grossly normal Mental Status: mental status grossly normal Affect: normal affect Attitude: cooperative Thought process: Normal thought process present Thought content: Normal thought content present Insight: Good insight present (Psych) Medical Decision Making MDM Narrative Medical decision making narrative: Patient is a 71 year old female presenting to the emergency department today with sciatic nerve pain. Patient's physical exam was unremarkable. I explained my physical exam findings to the patient. I answered all questions asked by the patient. Patient received PO Flexeril and IM Toradol which she stated helped her symptoms significantly. I stressed the importance of the patient taking her medication as prescribed. I stressed the importance of the patient following up with her primary care provider, a pain specialist, and a refrigeration specialist. I stressed the importance of the patient returning to the emergency department immediately if her symptoms were to worsen or if she were to develop any dizziness, shortness of breath, difficulty breathing, chest pain, blurry vision, loss of vision, nausea, vomiting, abdominal pain, fever, chills, back pain, or any other complaints. Patient verbalized agreement and understanding with this treatment plan and discharge. Differential Diagnosis Differential Diagnosis: sciatica Medical Records Medical records reviewed: Yes I reviewed the patient's medical records. Discharge Plan Discharge Clinical Impression: Sciatica Patient Disposition: Home, Self-Care Instructions: Sciatica (ED) Additional Instructions: Follow up with your primary care provider, a pain specialist, and a refrigeration specialist. Return to the emergency department immediately if your symptoms worsen or if you develop any dizziness, shortness of breath, difficulty breathing, chest pain, blurry vision, loss of vision, nausea, vomiting, abdominal pain, fever, chills, back pain, or any other complaints. Prescriptions: New cyclobenzaprine 5 mg tablet 5 mg PO TID PRN (Reason: back pain) 7 Days Qty: 21 0RF No Action nystatin 500,000 unit tablet 500,000 unit PO TID 10 Days Qty: 30 0RF fluticasone propionate 50 mcg/actuation spray,suspension 2 spray intranasal DAILY Qty: 16 0RF (DME) [facility] [place] Instructions .ROUTE .MEDSUPPLY Qty: 1 0RF Rx Instructions: As directed tramadol 50 mg tablet 50 mg PO Q8H PRN (Reason: pain, severe) Qty: 9 0RF acetaminophen [Tylenol Extra Strength] 500 mg tablet 500 mg PO Q6H PRN (Reason: fever or pain) Qty: 14 0RF lidocaine [Lidoderm] 5 % adhesive patch,medicated 1 patch topical DAILY MDD remove after 12 hours PRN (Reason: pain) Qty: 30 0RF Rx Instructions: leave on most painful area for up to 12 hrs naproxen 500 mg tablet 500 mg PO BID PRN (Reason: pain) 10 Days Qty: 20 0RF cyclobenzaprine 5 mg tablet 5 mg PO Q8H PRN (Reason: pain (scale score 7-10)) 5 Days Qty: 14 0RF cefuroxime axetil 250 mg tablet 250 mg PO BID 7 Days Qty: 14 0RF zolpidem 10 mg tablet 10 mg PO BEDTIME duloxetine 60 mg capsule,delayed release(DR/EC) PO ibuprofen 600 mg tablet 600 mg PO TID omeprazole 20 mg capsule,delayed release(DR/EC) 20 mg PO DAILY lisinopril 10 mg tablet 10 mg PO DAILY clonazepam 0.5 mg tablet 0.5 mg PO BID PRN metformin 1,000 mg tablet 1,000 mg PO BID insulin aspart U-100 100 unit/mL (3 mL) insulin pen 6 - 16 unit subcut DAILY meloxicam 7.5 mg tablet 7.5 mg PO BID PRN atorvastatin 20 mg tablet 20 mg PO DAILY budesonide 0.5 mg/2 mL suspension for nebulization 0.5 mg inhalation BID Qty: 120 11RF liraglutide 0.6 mg/0.1 mL (18 mg/3 mL) pen injector 1.8 mg subcut DAILY insulin glargine 100 unit/mL (3 mL) insulin pen subcut benzonatate 200 mg capsule 200 mg PO TID PRN (Reason: cough) 30 Days Qty: 45 3RF donepezil 5 mg tablet 5 mg PO DAILY montelukast 10 mg tablet 10 mg PO DAILY Spiriva Respimat 2.5 mcg/actuation mist 2 puff inhalation DAILY 30 Days Qty: 4 11RF budesonide-formoterol 160-4.5 mcg/actuation HFA aerosol inhaler 2 puff PO BID Qty: 10.2 11RF albuterol sulfate 90 mcg/actuation HFA aerosol inhaler 2 puff PO QID 30 Days Qty: 8.5 11RF azelastine 137 mcg (0.1 %) aerosol,spray 2 spray intranasal BID 30 Days Qty: 30 6RF Rx Instructions: administer into each nostril fluconazole [Diflucan] 100 mg tablet 100 mg PO DAILY 7 Days Qty: 7 0RF Daliresp 250 mcg tablet 250 mcg PO DAILY 30 Days Qty: 30 11RF Referrals: [facility] [Provider Group] Nico Blanc MD [Physician] - Rito Olivas MD [Primary Care Provider] - Interventions: ED Discharge Assessment Last Done: 11/05/21 20:04 Discharge Date/Time: 11/05/21 20:04 Print Language: Polish
[2021-11-05] MEDS: Ketorolac Tromethamine 15 MG/ML VIAL IM (19:57)
[2021-11-05] MEDS: Cyclobenzaprine HCl 5 MG TABLET PO (19:57)
== END 2021-11-05 20:04 | disposition home or self-care (01) ==
PROVIDERS: Emergency Provider Student in an Organized Health Care Education/Training Program; PCP Internal Medicine
DX: M54.41 Lumbago with sciatica, right side (principal); M54.42 Lumbago with sciatica, left side; Z79.899 Other long term (current) drug therapy
CPT/HCPCS: 96372; 99283; 99284; J1885

== ENCOUNTER 2021-11-11 12:37 | Inpatient (IN) | payer OTHER, SELFPAY ==
[2021-11-11] VITALS (9 sets, daily range): BP systolic 109–131; BP diastolic 45–74; PULSE 84–112; RESP 16–22; TEMP 36.7–37.1; O2SAT 83–97; BMI 41.0
--- NOTE | ~2021-11-11 | XR_ITS ---
EXAMINATION: XR LUMBOSACRAL SPINE WITH OBLIQUES CLINICAL INFORMATION: Back pain. COMPARISON: CT scan of the abdomen and pelvis dated October 08, 2008. Plain film examination of the lumbar spine dated October 17, 2011. TECHNIQUE: AP, both oblique, and lateral views of the lumbar spine. Lateral view of the lumbosacral junction. XR/XR lumbar spine 4V min FINDINGS/IMPRESSION: There is no acute radiographic finding. A mild to moderate compression deformity of L3 appears unchanged. Mild compression of L5 appears unchanged as well. Vertebral body heights otherwise appear maintained. No lytic or sclerotic bony lesion is appreciated. No spondylolysis or spondylolisthesis is seen. Lumbar levocurvature appears mildly worse compared with 10 years prior. The paraspinal soft tissues appear unremarkable. The aorta is atherosclerotic. The patient is status post laparoscopic adjustable gastric band placement.
--- NOTE | ~2021-11-11 | XR_ITS ---
EXAMINATION: XR CHEST CLINICAL INFORMATION: Shortness of breath COMPARISON: X-ray 11/06/2020 TECHNIQUE: 2 views of the chest were obtained. FINDINGS: Rotated positioning. Cardiomediastinal silhouette is similar in appearance, allowing for difference in positioning/technique. Slightly low lung volumes, with slight elevation of the right hemidiaphragm. There is a peribronchial thickening, interstitial and multifocal airspace opacities in the right lung, new from previous. More confluent airspace opacity in the medial aspect right lower lung. Mild hazy opacities in the left hemithorax. No significant effusion. No pneumothorax is seen. XR/XR chest 2V IMPRESSION: Multifocal airspace opacities, peribronchial thickening and interstitial opacities in the right hemithorax, new from previous. Minimal haziness in the left retrocardiac region. Differential consideration include infectious or inflammatory process. Asymmetric pulmonary edema can potentially have this appearance. Clinically correlate. Recommendation is for a follow-up chest series to be obtained following treatment and/or resolution of symptoms to assure resolution of this appearance.
--- NOTE | 2021-11-11 13:00 | ECG_ITS ---
Test Reason : sob Blood Pressure : / mmHG Vent. Rate : 104 BPM Atrial Rate : 104 BPM P-R Int : 152 ms QRS Dur : 142 ms QT Int : 388 ms P-R-T Axes : 044 -49 036 degrees QTc Int : 510 ms Sinus tachycardia Right bundle branch block Left anterior fascicular block Bifascicular block Abnormal ECG When compared with ECG of 11-JUL-2020 21:14, Left anterior fascicular block is now Present Referred By: Krys Ochoa Electronically Signed By:MARIAN RYAN
--- NOTE | 2021-11-11 13:20 | ED_ITS ---
HPI - SOB/Dyspnea General Chief Complaint: Dyspnea Stated Complaint: SOB,N/V,FEVER,CHILLS,FULLY VACC DAYS PER EMS Time Seen by Provider: 11/11/21 12:44 Source: patient Mode of arrival: EMS Limitations: no limitations History of Present Illness HPI Narrative: Patient presents to the emergency department today for evaluation of multiple complaints. She states that 3 days ago she was not in chicken, in 2 hours foll owing she began having nausea and vomiting. She states since then she is vomiting at least 10 times a day a large amount every time. She denies any blood to the emesis or coffee-ground color. States it is yellow or green. Has generalized abdominal discomfort with this. She has been able to drink water but typically vomits afterwards, has not had any solids. Denies any foreign body sensation. She additionally is reporting chest pain 3/10, described as substernal, and constant, reproducible to cough and deep inspiration. She has been using her inhaler/nebulizer machines at home for shortness of breath without significant improvement. Related Data Home Medications Medication Instructions Recorded Confirmed clonazepam 0.5 mg tablet 0.5 mg PO BID PRN Anxiety 02/06/20 11/11/21 duloxetine 60 mg capsule,delayed 60 mg PO DAILY 02/06/20 11/11/21 release ibuprofen 600 mg tablet 600 mg PO TID PRN Pain 02/06/20 11/11/21 insulin aspart U-100 100 unit/mL 0 sliding scale dose subcut QIDACHS 02/06/20 11/11/21 (3 mL) subcutaneous pen lisinopril 10 mg tablet 10 mg PO DAILY 02/06/20 11/11/21 omeprazole 20 mg capsule,delayed 20 mg PO DAILY 02/06/20 11/11/21 release zolpidem 10 mg tablet 10 mg PO BEDTIME 02/06/20 11/11/21 liraglutide 0.6 mg/0.1 mL (18 mg/3 1.8 mg subcut DAILY 04/21/20 11/11/21 mL) subcutaneous pen injector donepezil 5 mg tablet 5 mg PO DAILY 11/06/20 11/11/21 insulin glargine 100 unit/mL (3 54 unit subcut BEDTIME 01/05/21 11/11/21 mL) subcutaneous pen albuterol sulfate 90 mcg/actuation 2 puff PO QID PRN Wheezing 11/11/21 11/11/21 aerosol inhaler buspirone 15 mg tablet 1 tab PO BID 11/11/21 11/11/21 gabapentin 300 mg capsule 1 cap PO BEDTIME 11/11/21 11/11/21 ipratropium bromide 21 mcg (0.03 2 spray intranasal BID 11/11/21 11/11/21 %) nasal spray ketoconazole 2 % shampoo 1 appl topical 2XW 11/11/21 11/11/21 lidocaine 4 % topical patch 1 patch topical DAILY PRN Pain 11/11/21 11/11/21 vibegron 75 mg tablet (Gemtesa) 75 mg PO DAILY 11/11/21 11/11/21 Previous Rx's Medication Instructions Recorded walker #1 ea 07/12/20 budesonide-formoterol HFA 160 2 puff PO BID #10.2 grams 03/18/21 mcg-4.5 mcg/actuation aerosol inhaler tiotropium bromide 2.5 2 puff inhalation DAILY 30 days #4 03/18/21 mcg/actuation mist for inhalation grams (Spiriva Respimat) roflumilast 250 mcg tablet 250 mcg PO DAILY 30 days #30 tabs 05/07/21 (Daliresp) acetaminophen 500 mg tablet 500 mg PO Q6H PRN fever or pain 09/08/21 (Tylenol Extra Strength) #14 tabs tramadol 50 mg tablet 50 mg PO Q8H PRN pain, severe #9 09/08/21 tabs Allergies Allergy/AdvReac Type Severity Reaction Status Date / Time aspirin [ASPIRIN] Allergy Intermediate GI UPSET, Verified 11/05/21 15:30 stomach pain latex [LATEX] Allergy Intermediate HIVES Verified 11/05/21 15:30 Review of Systems Review of Systems: Constitutional: No weight loss. Positive tactile fever. Positive chills. No weakness. No fatigue. Skin: No rash. No itching. Cardiovascular: Positive chest pain. No chest pressure. No palpitations. Respiratory: Positive shortness of breath. Positive cough. Positive sputum production. Positive dyspnea on exertion Gastrointestinal: No anorexia. No nausea. No vomiting. No diarrhea. No abdominal pain. No blood in stool. Genitourinary: No burning micturition. No urinary frequency. No incontinence. Neurologic: No headache. No dizziness. No pre-syncope/ syncope. No unilateral weakness. No ataxia. No numbness. No tingling. No change in bowel or bladder control. Musculoskeletal: No muscle pain. No back pain. No joint pain. No stiffness. Hematologic: No bleeding. No bruising. Psychiatric:No depression. No anxiety. Endocrine: No polyuria. No polydipsia. Yes all other systems are reviewed and are negative [facility] Past Medical History Medical History Acute respiratory failure Arnold-Chiari malformation Arthritis Asthma Asthma-COPD overlap syndrome Cardiomegaly Chest crackles Cough Diabetes Fibromyalgia Hyperlipidemia Hypertension CASSANDRA treated with BiPAP Sinusitis Surgical History H/O bilateral breast reduction surgery H/O brain surgery Hx of laparoscopic gastric banding Family History Family History Mother HTN (hypertension) Breast cancer Father Primary cancer of bone marrow Social History Social History Alcohol intake: never Patient Tobacco Use Status: Never used Tobacco Years Smoked: 15 +/- Use of substances other than those prescribed or required for medical reasons: No Advance Directives: Yes Advance Directives on File: Yes Advance Directives Date on File: 11/11/21 Physical Exam Vital Signs: Vital Signs: Last Vital Signs Temp 98.7 F 11/11/21 15:04 Pulse 105 H 11/11/21 18:19 Resp 20 11/11/21 18:19 BP 123/45 L 11/11/21 18:19 Pulse Ox 93 11/11/21 18:19 O2 Del Method 11/11/21 18:19 O2 Flow Rate 4 11/11/21 18:19 Oxygen Flow Rate 2 11/11/21 13:09 BMI result Body Mass Index 41.0 Appearance: Alert.?Oriented to person, place and time. No acute distress.?Normal affect. Eyes: Pupils equal, round and reactive to light.? ENT: Pharynx normal.?? Neck: Normal inspection.? Neck supple.?? CVS: Heart sounds normal. Sinus tachycardia Pulses normal.?? Respiratory: No respiratory distress.? Lungs sounds are coarse bilaterally Abdomen: Soft and non-tender. Normoactive bowel sounds. No pulsatile mass.?? Skin: Skin warm and dry.? Normal skin color.? ? Extremities: No lower extremity edema.? Neuro: Moves all extremities spontaneously. Sensation intact bilaterally. CN II- XII intact. No focal neuro deficits. Ambulates with normal steady gait. Course Course Course Narrative: First contact with patient made at 1300. Patient is a 71-year-old female with a past medical history of asthma-COPD overlap on chronic oxygen via face mask at 2L, fibromyalgia, obstructive sleep apnea, Arnold-Chiari malformation, diabetes, hypertension, hyperlipidemia who presents to the emergency department for evaluation of shortness of breath, chest pain, nausea, vomiting, and chills. Initially upon arrival to the emergency department O2 sat was 83% on 2 L, increased to 4 L with improvement to 92%, states baseline O2 saturation is 94%. She is additionally tachypnea can tachycardic. Lung sounds are coarse bilaterally. Concern for infection at this time, Will obtain CBC to evaluate for leukocytosis/ anemia, CMP and lipase to evaluate for abnormal electrolytes /abnormal renal function/ abnormal hepatic/biliary function, EKG and troponin to evaluate for ischemia/ACS. Chest x-ray to evaluate for consolidation/ infiltrate/ mass/ pulmonary congestion, Urinalysis, blood cultures and lactic acid. Patient to receive ceftriaxone IV. Reevaluation(s) Reevaluation #1: CBC reveals leukocytosis, 17.7, CMP is unremarkable. BNP normal, troponin 10.9, EKG reveals sinus tachycardia with bifascicular block. Chest x-ray reveals multifocal airspace opacities, peribronchial thickening, interstitial opacities the right hemithorax. She remains tachycardic, and tachypneic with report of minimal increase in her shortness of breath. Will add doxycycline to cover community-acquired pneumonia Time: 15:05 MDM - SOB/Dyspnea Medical Records Attestation: I reviewed the patient's medical records. Lab Data Attestation: I reviewed the patient's lab results. Result diagrams: 11/11/21 13:29 11/11/21 14:34 Labs: Lab Results 11/11/21 11/11/21 11/11/21 Range/Units 13:29 13:29 13:29 WBC 17.7 H (4.8-10.8) X10*3/uL RBC 4.15 L (4.20-5.50) X10*6/uL Hgb 12.1 (12.0-16.0) g/dl Hct 38.0 (37.0-47.0) % MCV 91.6 (80.0-98.0) fL MCH 29.2 (27.0-33.0) pg MCHC 31.8 (31.0-35.0) g/dl RDW 14.6 (11.0-16.0) % Plt Count 319 (160-400) X10*3/uL MPV 9.3 L (9.4-12.3) fL Immature Gran % (Auto) 0.9 H (0.0-0.4) % Neut % (Auto) 86.4 H (45-73) % Lymph % (Auto) 9.1 L (20-40) % Gilchrist % (Auto) 3.2 (2-11) % Eos % (Auto) 0.1 (0-4) % Baso % (Auto) 0.3 (0-2) % Lymph # (Auto) 1.6 (1.2-4.9) X10*3/uL Gilchrist # (Auto) 0.6 (0.1-1.2) X10*3/uL Eos # (Auto) 0.0 (0.0-0.4) X10*3/uL Baso # (Auto) 0.1 (0.0-0.2) X10*3/uL Abs Immat Gran (auto) 0.16 H (0.00-0.03) X10*3/uL Absolute Neuts (auto) 15.3 H (2.0-8.3) x10*3/uL Absolute Nucleated RBC 0.000 (0.0-0.012) X10*3/uL Nucleated RBC % (auto) 0.0 (0.0-0.2) /100WBC Sodium (135-145) mmol/L Potassium (3.3-5.1) mmol/L Chloride (96-108) mmol/L Carbon Dioxide (22-29) mmol/L Anion Gap (12-20) BUN (9-16) mg/dL Creatinine (0.5-1.4) mg/dL Estim Creat Clear Calc Estimated GFR Random Glucose (60-115) mg/dL Lactic Acid (0.5-2.0) mmol/L Calcium (8.4-10.2) mg/dL Total Bilirubin (0.0-1.0) mg/dL AST (5-31) U/L ALT (0-31) U/L Alkaline Phosphatase (39-117) U/L Troponin I High Sens 10.9 D (<3.5-17.0) ng/L B-Natriuretic Peptide 43 (<100) pg/mL Total Protein (6.5-8.0) g/dL Albumin (3.5-5.0) g/dL Lipase (8-78) U/L COVID-19 (CARMEN) (Negative) COVID-19 Clin Com 11/11/21 11/11/21 11/11/21 Range/Units 13:30 13:30 14:34 WBC (4.8-10.8) X10*3/uL RBC (4.20-5.50) X10*6/uL Hgb (12.0-16.0) g/dl Hct (37.0-47.0) % MCV (80.0-98.0) fL MCH (27.0-33.0) pg MCHC (31.0-35.0) g/dl RDW (11.0-16.0) % Plt Count (160-400) X10*3/uL MPV (9.4-12.3) fL Immature Gran % (Auto) (0.0-0.4) % Neut % (Auto) (45-73) % Lymph % (Auto) (20-40) % Gilchrist % (Auto) (2-11) % Eos % (Auto) (0-4) % Baso % (Auto) (0-2) % Lymph # (Auto) (1.2-4.9) X10*3/uL Gilchrist # (Auto) (0.1-1.2) X10*3/uL Eos # (Auto) (0.0-0.4) X10*3/uL Baso # (Auto) (0.0-0.2) X10*3/uL Abs Immat Gran (auto) (0.00-0.03) X10*3/uL Absolute Neuts (auto) (2.0-8.3) x10*3/uL Absolute Nucleated RBC (0.0-0.012) X10*3/uL Nucleated RBC % (auto) (0.0-0.2) /100WBC Sodium 140 (135-145) mmol/L Potassium 3.8 (3.3-5.1) mmol/L Chloride 103 (96-108) mmol/L Carbon Dioxide 24 (22-29) mmol/L Anion Gap 17 (12-20) BUN 24 H (9-16) mg/dL Creatinine 1.10 (0.5-1.4) mg/dL Estim Creat Clear Calc 49.8 Estimated GFR 49 Random Glucose 66 (60-115) mg/dL Lactic Acid 1.7 (0.5-2.0) mmol/L Calcium 9.3 D (8.4-10.2) mg/dL Total Bilirubin 0.8 (0.0-1.0) mg/dL AST 33 H D (5-31) U/L ALT 21 (0-31) U/L Alkaline Phosphatase 85 (39-117) U/L Troponin I High Sens (<3.5-17.0) ng/L B-Natriuretic Peptide (<100) pg/mL Total Protein 7.1 (6.5-8.0) g/dL Albumin 3.7 (3.5-5.0) g/dL Lipase (8-78) U/L COVID-19 (CARMEN) Negative (Negative) COVID-19 Clin Com See Note 11/11/21 Range/Units 14:34 WBC (4.8-10.8) X10*3/uL RBC (4.20-5.50) X10*6/uL Hgb (12.0-16.0) g/dl Hct (37.0-47.0) % MCV (80.0-98.0) fL MCH (27.0-33.0) pg MCHC (31.0-35.0) g/dl RDW (11.0-16.0) % Plt Count (160-400) X10*3/uL MPV (9.4-12.3) fL Immature Gran % (Auto) (0.0-0.4) % Neut % (Auto) (45-73) % Lymph % (Auto) (20-40) % Gilchrist % (Auto) (2-11) % Eos % (Auto) (0-4) % Baso % (Auto) (0-2) % Lymph # (Auto) (1.2-4.9) X10*3/uL Gilchrist # (Auto) (0.1-1.2) X10*3/uL Eos # (Auto) (0.0-0.4) X10*3/uL Baso # (Auto) (0.0-0.2) X10*3/uL Abs Immat Gran (auto) (0.00-0.03) X10*3/uL Absolute Neuts (auto) (2.0-8.3) x10*3/uL Absolute Nucleated RBC (0.0-0.012) X10*3/uL Nucleated RBC % (auto) (0.0-0.2) /100WBC Sodium (135-145) mmol/L Potassium (3.3-5.1) mmol/L Chloride (96-108) mmol/L Carbon Dioxide (22-29) mmol/L Anion Gap (12-20) BUN (9-16) mg/dL Creatinine (0.5-1.4) mg/dL Estim Creat Clear Calc Estimated GFR Random Glucose (60-115) mg/dL Lactic Acid (0.5-2.0) mmol/L Calcium (8.4-10.2) mg/dL Total Bilirubin (0.0-1.0) mg/dL AST (5-31) U/L ALT (0-31) U/L Alkaline Phosphatase (39-117) U/L Troponin I High Sens (<3.5-17.0) ng/L B-Natriuretic Peptide (<100) pg/mL Total Protein (6.5-8.0) g/dL Albumin (3.5-5.0) g/dL Lipase 10 (8-78) U/L COVID-19 (CARMEN) (Negative) COVID-19 Clin Com ECG Data Attestation: I personally reviewed and interpreted this ECG as follows: ECG interpretation date: 11/11/21 Interpretation: Rate: 104 Rhythm:? Sinus tachycardia, bifascicular block Normal P waves.? Normal SALAS.?? Normal QRS complex.?? ST T wave :?? qTC:510 prior studies:? July 2020 The study has been interpreted contemporaneously by me. Discharge Plan Discharge Clinical Impression: Community acquired pneumonia
[2021-11-11] MEDS: Albuterol Sulfate 2.5 MG, Albuterol Sulfate (0.083%) 2.5 MG 5 MG INHALE (13:52)
[2021-11-11] MEDS: Albuterol/Iprat 2.5/0.5MG 3 ML AMPUL.NEB INHALE ×4 (13:52→23:37)
[2021-11-11 13:55] LABS: MANUAL DIFF FLAG NO
[2021-11-11 13:57] LABS: Basophils Absolute Auto 0.1 X10*3/uL (0.0-0.2); Basophils Percent Auto 0.3 % (0-2); Eosinophils Percent Auto 0.1 % (0-4); Hemoglobin 12.1 g/dl (12.0-16.0); Imm Gran Abs Auto 0.16 X10*3/uL (0.00-0.03); Imm Gran Pct Auto 0.9 % (0.0-0.4); Lymphocytes Absolute Auto 1.6 X10*3/uL (1.2-4.9); Lymphocytes Percent Auto 9.1 % (20-40); Mean Corpuscular HGB Conc 31.8 g/dl (31.0-35.0); Mean Corpuscular Hemoglobin 29.2 pg (27.0-33.0); Mean Corpuscular Volume 91.6 fL (80.0-98.0); Mean Platelet Volume 9.3 fL (9.4-12.3); Monocytes Absolute Auto 0.6 X10*3/uL (0.1-1.2); Monocytes Percent Auto 3.2 % (2-11); Neutrophils Absolute Auto 15.3 x10*3/uL (2.0-8.3); Neutrophils Percent Auto 86.4 % (45-73); Platelet Count 319 X10*3/uL (160-400); Red Blood Count 4.15 X10*6/uL (4.20-5.50); Red Cell Distribution Width 14.6 % (11.0-16.0); White Blood Count 17.7 X10*3/uL (4.8-10.8)
[2021-11-11 14:08] LABS: Lactic Acid 1.7 mmol/L (0.5-2.0)
[2021-11-11 14:19] LABS: B Type Natriuretic Peptide 43 pg/mL (<100); Troponin-I High Sensitivity 10.9 ng/L (<3.5-17.0)
[2021-11-11 14:20] LABS: COVID-19 Test Negative (Negative)
[2021-11-11] MEDS: cefTRIAXone sodium 1 GM in 0.9 % Sodium Chloride 50 ML IV (14:44)
[2021-11-11 14:58] LABS: Lipase 10 U/L (8-78)
[2021-11-11 14:59] LABS: Alanine Aminotransferase 21 U/L (0-31); Albumin Level 3.7 g/dL (3.5-5.0); Alkaline Phosphatase 85 U/L (39-117); Anion Gap 17 (12-20); Aspartate Amino Transferase 33 U/L (5-31); Bilirubin Total 0.8 mg/dL (0.0-1.0); Blood Urea Nitrogen 24 mg/dL (9-16); Calcium 9.3 mg/dL (8.4-10.2); Carbon Dioxide 24 mmol/L (22-29); Chloride 103 mmol/L (96-108); Creatinine Clr Calc Pharmacy 49.8; Estimated Glomerular Filt Rate 49; Glucose Random 66 mg/dL (60-115); Potassium 3.8 mmol/L (3.3-5.1); Sodium 140 mmol/L (135-145); Total Protein 7.1 g/dL (6.5-8.0)
--- NOTE | 2021-11-11 15:57 | MHC.CM.ED ---
Received notification from Shiela of Registration that patient would like to complete HCP. Met with patient. HCP completed, signed and witnessed. Original given to patient. Copy placed in chart.
[2021-11-11] MEDS: methylPREDNISolone Sod Succ 125 MG/2 ML VIAL 80 MG IVPUSH (16:34)
[2021-11-11] MEDS: Doxycycline Hyclate 100 MG in 0.9 % Sodium Chloride 250 ML 166.67 MG IV (16:34)
--- NOTE | 2021-11-11 16:49 | PHA.MEDREC ---
Pharmacy Consult ? Medication Reconciliation Pharmacy has completed the medication reconciliation. Patient was able to recognize names of medications. Patient was unsure about atorvastatin, montelukast and roflumilast. Patient has not filled atorvastatin or montelukast since April of 2021 therefore I removed from the list. Patient reports it has been about 3 days since she last took her medications due to nausea. Reports she has been taking her insulin though. Evita Chand, PharmD
--- NOTE | 2021-11-11 17:14 | PM.IMHP ---
History of Present Illness Date of Service: 11/11/21 Attending physician on admission: Chente Ham Chief Complaint: sob 71-year-old female with multiple medical comorbidities including history of arthritis, asthma, asthma COPD overlap syndrome, cardiomegaly, diabetes, hypertension, hyperlipidemia,hx of lyphoma ,s/p post correction of Arnold-Chiari malformation,hx gerd and pud ,cassandra on cpap: patient came to the hospital because of worsening shortness of breath from 3-4 days duration. Patient says that she ate some chicken few days back and subsequently started to have worsening shortness of breath, nausea, vomiting , she also has throat pain. last vomited this morning early . she initially also describes some chest tightness with cough and was reproducible, chest tightness resolved. Still feels sore with deep breathing. Patient has cough with yellow sputum which is new. Denies any complaint of abdominal pain or fever or chills or diarrahe Denies any weakness or numbness. Patient denies any recent travel or any sick contacts or antibiotic use, also patient says she has vaccinated with Pfizerx4. Lab imaging EKG reviewed: WBC count 17.7 BUN 24, creatinine 1.1, lactic acid 1.7 chest x-ray: Multifocal airspace opacities BNP fine,ddmier fine trops 10.9 Review of Systems Review of Systems: as above. Yes all other systems are reviewed and are negative [facility] Medical History Acute respiratory failure Arnold-Chiari malformation Arthritis Asthma Asthma-COPD overlap syndrome Cardiomegaly Chest crackles Cough Diabetes Fibromyalgia Hyperlipidemia Hypertension CASSANDRA treated with BiPAP Sinusitis Family History Mother HTN (hypertension) Breast cancer Father Primary cancer of bone marrow Surgical History H/O bilateral breast reduction surgery H/O brain surgery Hx of laparoscopic gastric banding Social History Alcohol intake: never Patient Tobacco Use Status: Never used Tobacco Years Smoked: 15 +/- Use of substances other than those prescribed or required for medical reasons: No Advance Directives: Yes Advance Directives on File: Yes Advance Directives Date on File: 11/11/21 Meds Allergies Allergy/AdvReac Type Severity Reaction Status Date / Time aspirin [ASPIRIN] Allergy Intermediate GI UPSET, Verified 11/05/21 15:30 stomach pain latex [LATEX] Allergy Intermediate HIVES Verified 11/05/21 15:30 Active Medications: Current Medications Albuterol/Ipratropium (Albuterol/Iprat 2.5/0.5mg 3 Ml Ampul.Neb) 3 ml INHALE Q4H PENDING SALE TO [facility] Benzocaine (Throat Lozenge, Medicated Lozenge) 1 lozenge MUCOUS MEM Q2H PRN PRN Reason: Sore Throat Benzonatate (Benzonatate 100 Mg Capsule) 100 mg PO TID PRN PRN Reason: Cough Buspirone HCl (Buspirone Hcl 5 Mg Tablet) 15 mg PO BID PENDING SALE TO [facility] Clonazepam (Clonazepam 0.5 Mg Tablet) 0.5 mg PO BID PRN PRN Reason: Anxiety Dextrose (Dextrose 50 % 25 Gm/50 Ml Syringe) 25 gm IVPUSH Q15M PRN; Protocol PRN Reason: per Hypoglycemia Standing Ord. Donepezil HCl (Donepezil Hcl 5 Mg Tablet) 5 mg PO DAILY PENDING SALE TO [facility] Duloxetine HCl (Duloxetine Hcl 60 Mg Capsule.Dr) 60 mg PO DAILY PENDING SALE TO [facility] Gabapentin (Gabapentin 300 Mg Capsule) 300 mg PO BEDTIME PENDING SALE TO [facility] Glucose (Glucose Gel 15 Gm Gel..Gram.) 15 gm PO Q15M PRN; Protocol PRN Reason: per Hypoglycemia Standing Ord. Guaifenesin (Guaifenesin 100 Mg/5 Ml Liquid) 5 ml PO Q6H PRN PRN Reason: Cough Heparin Sodium (Porcine) (Heparin Sodium,Porcine 5,000 Unit/Ml Vial) 5,000 unit SUBCUT Q8H PENDING SALE TO [facility] Doxycycline Hyclate 100 mg/ (Sodium Chloride) 250 mls @ 166.67 mls/hr IV ONCE ONE Stop: 11/11/21 17:22 Last Admin: 11/11/21 16:34 Dose: 166.67 mls/hr Ceftriaxone Sodium 1 gm/ (Sodium Chloride) 50 mls @ 100 mls/hr IV Q24H PENDING SALE TO [facility] Azithromycin 500 mg/ Sodium (Chloride) 250 mls @ 125 mls/hr IV Q24H PENDING SALE TO [facility] Insulin Glargine (Insulin Glargine,Hum.Rec.Anlog 100 Unit/Ml 10 Ml Vial) 54 unit SUBCUT BEDTIME PENDING SALE TO [facility] Insulin Human Lispro (Insulin Lispro 100 Unit/Ml 3 Ml Vial) 0 unit SUBCUT QIDACHS PENDING SALE TO [facility]; Protocol Ipratropium Capitola (Ipratropium Capitola Sam 0.03 % 30 Ml [place]) 2 spray NOSTRIL-B BID PENDING SALE TO [facility] Ketoconazole (Ketoconazole 2 % Shampoo 120 Ml Btl) 1 appl TOPICAL 2XW PENDING SALE TO [facility]; Protocol Lisinopril (Lisinopril 10 Mg Tablet) 10 mg PO DAILY PENDING SALE TO [facility]; Protocol Methylprednisolone Sodium Succinate (Methylprednisolone Sod Succ 40 Mg/Ml Vial) 40 mg IVPUSH BID PENDING SALE TO [facility] Non-Formulary Medication (Acetaminophen [Tylenol Extra Strength]) 500 mg PO Q6H PRN PRN Reason: fever or pain Non-Formulary Medication (Liraglutide) 1.8 mg SUBCUT DAILY PENDING SALE TO [facility] Non-Formulary Medication (Roflumilast [Daliresp]) 250 mcg PO DAILY PENDING SALE TO [facility] Non-Formulary Medication (Tiotropium [place] [Spiriva Respimat]) 2 puff INHALE DAILY PENDING SALE TO [facility] Non-Formulary Medication (Vibegron [Gemtesa]) 75 mg PO DAILY PENDING SALE TO [facility] Omeprazole (Omeprazole 20 Mg Capsule.) 20 mg PO DAILY PENDING SALE TO [facility] Omeprazole (Omeprazole 20 Mg Capsule.) 20 mg PO DAILY@0630 PENDING SALE TO [facility] Pharmacy Consult (Consult Rx Perform Med Rec) 1 each MISCELLANE ONCE PRN PRN Reason: Consult order Sodium Chloride (0.9 % Sodium Chloride Flush 3 Ml Syringe) 3 ml IVFLUSH QSHIFT PENDING SALE TO [facility] Tramadol HCl (Tramadol Hcl 50 Mg Tablet) 50 mg PO Q8H PRN PRN Reason: pain, severe Zolpidem Tartrate (Zolpidem Tartrate 5 Mg Tablet) 10 mg PO BEDTIME PENDING SALE TO [facility] Home Medications Medication Instructions Recorded Confirmed Last Taken Type clonazepam 0.5 mg tablet 0.5 mg PO BID PRN Anxiety 02/06/20 11/11/21 Unknown History duloxetine 60 mg capsule,delayed 60 mg PO DAILY 02/06/20 11/11/21 3 Days Ago History release ~11/08/21 ibuprofen 600 mg tablet 600 mg PO TID PRN Pain 02/06/20 11/11/21 Unknown History insulin aspart U-100 100 unit/mL 0 sliding scale dose subcut QIDACHS 02/06/20 11/11/21 11/10/21 History (3 mL) subcutaneous pen lisinopril 10 mg tablet 10 mg PO DAILY 02/06/20 11/11/21 3 Days Ago History ~11/08/21 omeprazole 20 mg capsule,delayed 20 mg PO DAILY 02/06/20 11/11/21 3 Days Ago History release ~11/08/21 zolpidem 10 mg tablet 10 mg PO BEDTIME 02/06/20 11/11/21 3 Days Ago History ~11/08/21 liraglutide 0.6 mg/0.1 mL (18 mg/3 1.8 mg subcut DAILY 04/21/20 11/11/21 3 Days Ago History mL) subcutaneous pen injector ~11/08/21 donepezil 5 mg tablet 5 mg PO DAILY 11/06/20 11/11/21 3 Days Ago History ~11/08/21 insulin glargine 100 unit/mL (3 54 unit subcut BEDTIME 01/05/21 11/11/21 11/10/21 History mL) subcutaneous pen albuterol sulfate 90 mcg/actuation 2 puff PO QID PRN Wheezing 11/11/21 11/11/21 3 Days Ago History aerosol inhaler ~11/08/21 buspirone 15 mg tablet 1 tab PO BID 11/11/21 11/11/21 3 Days Ago History ~11/08/21 gabapentin 300 mg capsule 1 cap PO BEDTIME 11/11/21 11/11/21 3 Days Ago History ~11/08/21 ipratropium bromide 21 mcg (0.03 2 spray intranasal BID 11/11/21 11/11/21 3 Days Ago History %) nasal spray ~11/08/21 ketoconazole 2 % shampoo 1 appl topical 2XW 11/11/21 11/11/21 Unknown History lidocaine 4 % topical patch 1 patch topical DAILY PRN Pain 11/11/21 11/11/21 Unknown History vibegron 75 mg tablet (Gemtesa) 75 mg PO DAILY 11/11/21 11/11/21 3 Days Ago History ~11/08/21 Physical Exam Vital Signs and Narrative: Vital Signs: Last Vital Signs Temp 98.7 F 11/11/21 15:04 Pulse 106 H 11/11/21 16:43 Resp 20 11/11/21 16:43 BP 109/59 L 11/11/21 16:43 Pulse Ox 96 11/11/21 16:43 O2 Del Method Oxymask 11/11/21 16:43 O2 Flow Rate 4 11/11/21 16:43 Oxygen Flow Rate 2 11/11/21 13:09 BMI result Body Mass Index 41.0 Appearance: Alert.? Oriented X3.?somewhat sob. Eyes: Pupils equal, round and reactive to light.? Sclera nonicteric.? ENT: Pharynx normal.? Moist mucous membranes. cvs: rrr, [id number] , no murmur res: diminshed breath sounds right>left, has b/l rhonchii abd: no rebound or guarding ,nt, bs present. ext pulses present , no cyanosis . neuro: axo3 , nonfocal. Results Labs CBC and Chem 7: 11/11/21 13:29 11/11/21 14:34 Labs: Laboratory Results - last 24 hr 11/11/21 11/11/21 11/11/21 13:29 13:29 13:30 MCV 91.6 MCH 29.2 MCHC 31.8 RDW 14.6 Plt Count 319 MPV 9.3 L Immature Gran % (Auto) 0.9 H Neut % (Auto) 86.4 H Lymph % (Auto) 9.1 L [place] % (Auto) 3.2 Eos % (Auto) 0.1 Baso % (Auto) 0.3 Lymph # (Auto) 1.6 [place] # (Auto) 0.6 Eos # (Auto) 0.0 Baso # (Auto) 0.1 Abs Immat Gran (auto) 0.16 H Absolute Neuts (auto) 15.3 H Absolute Nucleated RBC 0.000 Nucleated RBC % (auto) 0.0 Anion Gap Estim Creat Clear Calc Estimated GFR Random Glucose Lactic Acid Calcium Total Bilirubin AST ALT Alkaline Phosphatase B-Natriuretic Peptide 43 Total Protein Albumin Lipase COVID-19 (CARMEN) Negative COVID-19 Clin Com See Note 11/11/21 11/11/21 11/11/21 13:30 14:34 14:34 MCV MCH MCHC RDW Plt Count MPV Immature Gran % (Auto) Neut % (Auto) Lymph % (Auto) [place] % (Auto) Eos % (Auto) Baso % (Auto) Lymph # (Auto) [place] # (Auto) Eos # (Auto) Baso # (Auto) Abs Immat Gran (auto) Absolute Neuts (auto) Absolute Nucleated RBC Nucleated RBC % (auto) Anion Gap 17 Estim Creat Clear Calc 49.8 Estimated GFR 49 Random Glucose 66 Lactic Acid 1.7 Calcium 9.3 D Total Bilirubin 0.8 AST 33 H D ALT 21 Alkaline Phosphatase 85 B-Natriuretic Peptide Total Protein 7.1 Albumin 3.7 Lipase 10 COVID-19 (CARMEN) COVID-19 Clin Com Imaging Radiologist's Impressions: Impressions Chest X-Ray 11/11/21 14:50 IMPRESSION: Multifocal airspace opacities, peribronchial thickening and interstitial opacities in the right hemithorax, new from previous. Minimal haziness in the left retrocardiac region. Differential consideration include infectious or inflammatory process. Asymmetric pulmonary edema can potentially have this appearance. Clinically correlate. Recommendation is for a follow-up chest series to be obtained following treatment and/or resolution of symptoms to assure resolution of this appearance. Assessment and Plan (1) Community acquired pneumonia: Status: Acute (2) Acute respiratory failure: Status: Acute (3) CASSANDRA treated with BiPAP: Status: Acute (4) Morbid obesity: Status: Acute Plan 71-year-old female with multiple medical comorbidities including history of arthritis, asthma, asthma COPD overlap syndrome, cardiomegaly, diabetes, hypertension, hyperlipidemia,hx of lyphoma ,s/p post correction of Arnold-Chiari malformation,hx gerd and pud ,cassandra on cpap: patient came to the hospital because of worsening shortness of breath from 3-4 days duration: 1. Acute hypoxemic respiratory failure secondary to pneumonia and asthma exacerbation. Patient has tachycardia and leukocytosis- has sepsis possible secondary to pneumonia. Lactic acid normal, sepsis exam completed. Blood cultures sent, urine strep and Legionella antigen, res panel, strep throat culture added. Will start the patient on nebs, steroids, antibiotics, oxygen support, Cough medication, lozenzes. continue to monitor, if respiratory status worsen will get ABG. 2. sleep apnea: continue home CPAP. 3.htn: stable,continue lisinopril. 4. diabetes type 2: fingersticks fluctuating Continue fingersticks with sliding scale coverage, home adjusted Lantus. 5. morbid obesity: Advised to lose weight, cutdown calories. 6. hx of gerd/pud: continue PPIs. 7. persistent nausea vomiting: Seems to be improving no diarrhea or abdominal pain or fever will continue to monitor, symptomatic treatment with Zofran. DVT prophylaxis: With subQ heparin above management patient in detail length she understand and in agreement with the plan, due to acute hypoxemic respiratory failure secondary to so pneumonia/asthma exacerbation- patient will benefit from 2 midnight stays, patient is DNR DNI. Quality Stroke Does the patient have a stroke diagnosis?: No VTE Prior VTE?: No VTE Risk Level:: Medical - moderate - high VTE Device Contraindication: N/A - Device Ordered VTE Drug Contraindication: N/A - Med Ordered
[2021-11-11 17:37] LABS: Appearance Urine Clear; Color Urine Dark Yellow; Glucose Urine UA Negative (Negative); Leukocyte Esterase Urine Trace (Negative); Nitrite Urine Negative (Negative); Specific Gravity - Urine 1.025 (1.005-1.025); Urine Blood Negative (Negative); Urine Ketones Trace mg/dL (Negative); Urine Protein 30 (1+) mg/dL (Neg-Trace)
[2021-11-11] MEDS: Heparin Sodium,Porcine 5,000 UNIT/ML VIAL 5000 UNIT SUBCUT (18:26)
[2021-11-11] MEDS: Omeprazole 20 MG CAPSULE.DR PO (18:27)
[2021-11-11 18:46] LABS: Bacteria Urine Trace (None Seen); Hyaline Casts Urine 0-2 /LPF (0-2); RBC Urine 0-2 /HPF (0-2); WBC Urine 0-5 /HPF (0-5)
[2021-11-11 18:56] LABS: Strep A Nucleic Acid Negative (Negative)
[2021-11-11] MEDS: Azithromycin 500 MG in 0.9 % Sodium Chloride 250 ML 125 MG IV (19:44)
[2021-11-11] MEDS: Gabapentin 300 MG CAPSULE PO (20:31)
[2021-11-11] MEDS: Zolpidem Tartrate 5 MG TABLET PO (20:31)
[2021-11-11] MEDS: busPIRone HCl 5 MG TABLET 15 MG PO (20:31)
[2021-11-11] MEDS: methylPREDNISolone Sod Succ 40 MG/ML VIAL IVPUSH (20:32)
--- NOTE | 2021-11-11 20:37 | PC.NURSE ---
pt sitting up comfortably in wheelchair. family at bedside. no apparent distress. wearing 4L O2 via oxymask with no respiratory distress. bedtime meds given. will obtain poc for blood sugar. call figueroa within reach. will continue to monitor.
[2021-11-11 20:56] LABS: Glucose, Whole Blood 153 mg/dL (60-115)
[2021-11-11] MEDS: Insulin Lispro 100 UNIT/ML 3 ML VIAL SUBCUT (20:59)
[2021-11-11 21:33] LABS: Troponin-I High Sensitivity 34.3 ng/L (<3.5-17.0)
[2021-11-12] VITALS (11 sets, daily range): BP systolic 96–120; BP diastolic 43–61; PULSE 60–99; RESP 12–24; TEMP 36.2–36.8; O2SAT 95–100
--- NOTE | 2021-11-12 01:03 | PC.NURSE ---
pt moved into hospital bed for increased comfort - wearing oxymask at 5L. maintaining O2 sats at 96%. no apparent distress. call figueroa within reach. will continue to monitor.
--- NOTE | 2021-11-12 02:36 | PC.NURSE ---
pt assisted to bedside commode and placed back into bed. no apparent distress.
[2021-11-12] MEDS: Heparin Sodium,Porcine 5,000 UNIT/ML VIAL 5000 UNIT SUBCUT ×3 (03:15→19:33)
[2021-11-12 07:01] LABS: MANUAL DIFF FLAG NO
[2021-11-12 07:07] LABS: Basophils Percent Auto 0.2 % (0-2); Hematocrit 32.6 % (37.0-47.0); Hemoglobin 10.5 g/dl (12.0-16.0); Imm Gran Abs Auto 0.08 X10*3/uL (0.00-0.03); Imm Gran Pct Auto 0.6 % (0.0-0.4); Lymphocytes Percent Auto 8.3 % (20-40); Mean Corpuscular HGB Conc 32.2 g/dl (31.0-35.0); Mean Corpuscular Hemoglobin 29.2 pg (27.0-33.0); Mean Corpuscular Volume 90.6 fL (80.0-98.0); Mean Platelet Volume 9.7 fL (9.4-12.3); Monocytes Absolute Auto 0.2 X10*3/uL (0.1-1.2); Monocytes Percent Auto 1.9 % (2-11); Neutrophils Absolute Auto 11.1 x10*3/uL (2.0-8.3); Platelet Count 277 X10*3/uL (160-400); Red Cell Distribution Width 14.4 % (11.0-16.0); White Blood Count 12.4 X10*3/uL (4.8-10.8)
[2021-11-12 07:18] LABS: Glucose, Whole Blood 337 mg/dL (60-115)
[2021-11-12] MEDS: Insulin Lispro 100 UNIT/ML 3 ML VIAL SUBCUT ×5 (07:44→22:23)
[2021-11-12] MEDS: methylPREDNISolone Sod Succ 40 MG/ML VIAL IVPUSH (07:44)
[2021-11-12] MEDS: busPIRone HCl 5 MG TABLET 15 MG PO ×2 (07:45→22:06)
[2021-11-12] MEDS: DULoxetine HCl 60 MG CAPSULE.DR PO (07:46)
[2021-11-12] MEDS: Donepezil HCl 5 MG TABLET PO (07:46)
[2021-11-12] MEDS: lisinopriL 10 MG TABLET PO (07:46)
[2021-11-12] MEDS: 0.9 % Sodium Chloride Flush 3 ML SYRINGE IVFLUSH ×2 (07:56→15:21)
[2021-11-12 07:59] LABS: Anion Gap 17 (12-20); Blood Urea Nitrogen 30 mg/dL (9-16); Calcium 8.7 mg/dL (8.4-10.2); Carbon Dioxide 23 mmol/L (22-29); Chloride 103 mmol/L (96-108); Creatinine Clr Calc Pharmacy 42.2; Estimated Glomerular Filt Rate 41; Glucose Random 405 mg/dL (60-115); Potassium 4.9 mmol/L (3.3-5.1); Sodium 138 mmol/L (135-145)
[2021-11-12] MEDS: Albuterol/Iprat 2.5/0.5MG 3 ML AMPUL.NEB INHALE ×5 (08:07→23:13)
[2021-11-12 08:15] LABS: Adenovirus PCR Not Detected (Not Detect.); Bordetella parapertussis PCR Not Detected (Not Detect.); Bordetella pertussis PCR Not Detected (Not Detect.); Chlamydia pneumoniae PCR Not Detected (Not Detect.); Coronavirus 229E PCR Not Detected (Not Detect.); Coronavirus HKU1 PCR Not Detected (Not Detect.); Coronavirus NL63 PCR Not Detected (Not Detect.); Coronavirus OC43 PCR Not Detected (Not Detect.); Human metapneumovirus PCR Not Detected (Not Detect.); Influenza A PCR Not Detected (Not Detect.); Influenza B PCR Not Detected (Not Detect.); Mycoplasma pneumoniae PCR Not Detected (Not Detect.); Parainfluenza 1 PCR Not Detected (Not Detect.); Parainfluenza 2 PCR Not Detected (Not Detect.); Parainfluenza 3 PCR Not Detected (Not Detect.); Parainfluenza 4 PCR Not Detected (Not Detect.); RSV PCR Not Detected (Not Detect.); Rhino/Enterovirus PCR Not Detected (Not Detect.); SARS-CoV-2 PCR Not Detected (Not Detect.)
--- NOTE | 2021-11-12 09:32 | P.CDIC_ITS ---
CDI Concurrent Query Documentation Clarification: PHYSICIAN'S DOCUMENTATION REQUEST Date of Query: 11/12/21 09 Patient Name: Madeleine Ledezma Admit Date: 11/11/21 Dear Doctor, Please review the following and provide your response in the progress notes. Clinical Indicators: The diagnosis of asthma was documented in the record on 11/11/21 . Additional clinical indicators from the record include: Risk Factors/Clinical Indicators/Treatments Per ED note: on chronic oxygen via face mask at 2L PMH: Asthma-COPD overlap syndrome treatment: Atrovent, Duoneb, Solu_Medrol Based on the above, please clarify in the Progress Notes further specificity regarding the type and acuity of the asthma: Type: * Mild intermittent - less than 2x/week * Mild persistent - more than 2x/week but not daily * Moderate persistent - daily and may restrict physical activity * Severe persistent - throughout the day with frequent attacks, limiting activities * Exercise induced * Other ? please specify * Unable to determine Acuity: * With acute exacerbation * With status asthmaticus * Uncomplicated * Unable to determine Use of terms such as suspected, likely, concern for, or probable (associated with a specific diagnosis that is being evaluated, monitored, or treated as if it exists) are acceptable and can be coded in the inpatient setting, when documented at the time of discharge. Thank you, Nancy Bond RN Extension: [phone] Please use your independent medical judgment in providing your response. THIS QUERY IS PART OF THE PERMANENT MEDICAL RECORD Provider Response: Other Other Diagnosis: Acute on chronic hypoxemic respiratory failure secondary to asthma/COPD, also has pneumonia now.
[2021-11-12] MEDS: Insulin Glargine,Hum.rec.anlog 100 UNIT/ML 10 ML VIAL 50 UNIT SUBCUT (09:38)
--- NOTE | 2021-11-12 09:38 | P.CDIC_ITS ---
CDI Concurrent Query Documentation Clarification: PHYSICIAN'S DOCUMENTATION REQUEST Date of Query: 11/12/21 0939 Patient Name: Madeleine Ledezma Admit Date: 11/11/21 Dear Doctor, A review of the medical record indicates additional documentation may be needed. Please review below and update the documentation accordingly. Clinical Indicators: Risk Factors/Clinical Indicators/Treatments patient is on chronic 2L oxygen Respiratory rate 18-20 treated with 4-6 L oxygen oxymask Recognized standard criteria for respiratory failure includes: (Source: [facility] Jan 2013) ABGs (1 or more) Symptoms: ? PO2 <60 or RA SpO2 <91% ? Tachypnea, SOB, dyspnea ? PcO2 >50 and pH <7.35 ? Pallor or cyanosis ? pO2 decrease or pcO2 increase ? Anxiety or restlessness by 10 mm/Hg from baseline if known ? Use of accessory muscles ? Retractions (grunting in newborns) ? Unable to speak in complete sentences P/F ratio < 300 Supplemental O2 requirement of 40% or more Intubation is not required Clarify which of the following accurately represents the patient's respiratory status: * Acute on chronic respiratory failure * Chronic respiratory failure * Other (please specify) * Unable to determine Use of terms such as suspected, likely, concern for, or probable (associated with a specific diagnosis that is being evaluated, monitored, or treated as if it exists) are acceptable and can be coded in the inpatient setting, when documented at the time of discharge. Thank you, Nancy Bond RN Extension: [phone] Please use your independent medical judgment in providing your response. THIS QUERY IS PART OF THE PERMANENT MEDICAL RECORD Provider Response: Other Other Diagnosis: Acute or chronic hypoxemic respiratory failure secondary to asthma/COPD, pneumonia.
[2021-11-12] MEDS: Metoprolol Tartrate 25 MG TABLET PO ×2 (09:39→15:20)
[2021-11-12] MEDS: traMADoL HCL 50 MG TABLET PO (10:39)
[2021-11-12] MEDS: clonazePAM 0.5 MG TABLET PO (10:41)
--- NOTE | 2021-11-12 11:46 | PC.NURSE ---
Pt aox3. Able to ambulate from bed to commode with assistance. Ambulated a few steps around the room with assistance.
[2021-11-12 12:21] LABS: Glucose, Whole Blood 349 mg/dL (60-115)
[2021-11-12] MEDS: Nystatin Oral Susp 500,000 UNIT/5 ML ORAL.SUSP 400000 UNIT PO ×2 (12:21→22:04)
[2021-11-12] MEDS: Mag&Al/Sim/Diphenhyd/Lidocaine 10 ML ORAL.SUSP PO (12:22)
--- NOTE | 2021-11-12 12:29 | MHC.CM.PN ---
Attempted to meet with patient in regards to discharge planning. Nursing care being provided. Will attempt to meet again. Continue to monitor for d/c needs.
[2021-11-12] MEDS: cefTRIAXone sodium 1 GM in 0.9 % Sodium Chloride 50 ML IV (15:19)
[2021-11-12] MEDS: Omeprazole 20 MG CAPSULE.DR PO (15:20)
--- NOTE | 2021-11-12 16:07 | HO.PM.IMPN ---
Subjective Subjective Date of Service: 11/12/21 Interval History: Acute on chronic hypoxemic respiratory failure Review of Systems Shortness of breath is similar to yesterday, has dry cough, throat pain. Denies any chest pain or abdominal pain or nausea or vomiting. Physical Exam Vital Signs: Vital Signs: Last Vital Signs Temp 98.3 F 11/12/21 07:41 Pulse 84 11/12/21 15:28 Resp 24 H 11/12/21 15:28 BP 117/43 L 11/12/21 15:28 Pulse Ox 97 11/12/21 07:41 O2 Del Method 11/12/21 15:28 O2 Flow Rate 3 11/12/21 15:28 Oxygen Flow Rate 2 11/11/21 13:09 BMI result Body Mass Index 41.0 ? Appearance: Alert.? Oriented X3.?still sob. cvs: rrr, [id number] res: diminshed breath sounds right>left, has b/l rhonchii abd: no rebound or guarding ,nt, bs present. ext pulses present , no cyanosis ,no edema neuro: axo3 , nonfocal. Objective Data Active Medications Acetaminophen (Acetaminophen 325 Mg Tablet) 650 mg PO Q6H PRN PRN Reason: fever or pain Albuterol/Ipratropium (Albuterol/Iprat 2.5/0.5mg 3 Ml Ampul.Neb) 3 ml INHALE RQ4H [facility] Last Admin: 11/12/21 11:56 Dose: 3 ml Documented By: BELKIS Benzocaine (Throat Lozenge, Medicated Lozenge) 1 lozenge MUCOUS MEM Q2H PRN PRN Reason: Sore Throat Benzonatate (Benzonatate 100 Mg Capsule) 100 mg PO TID PRN PRN Reason: Cough Buspirone HCl (Buspirone Hcl 5 Mg Tablet) 15 mg PO BID [facility] Last Admin: 11/12/21 07:45 Dose: 15 mg Documented By: ISABEL Clonazepam (Clonazepam 0.5 Mg Tablet) 0.5 mg PO BID PRN PRN Reason: Anxiety Last Admin: 11/12/21 10:41 Dose: 0.5 mg Documented By: ISABEL Dextrose (Dextrose 50 % 25 Gm/50 Ml Syringe) 25 gm IVPUSH Q15M PRN; Protocol PRN Reason: per Hypoglycemia Standing Ord. Donepezil HCl (Donepezil Hcl 5 Mg Tablet) 5 mg PO DAILY [facility] Last Admin: 11/12/21 07:46 Dose: 5 mg Documented By: ISABEL Duloxetine HCl (Duloxetine Hcl 60 Mg Capsule.Dr) 60 mg PO DAILY [facility] Last Admin: 11/12/21 07:46 Dose: 60 mg Documented By: ISABEL Gabapentin (Gabapentin 300 Mg Capsule) 300 mg PO BEDTIME [facility] Last Admin: 11/11/21 20:31 Dose: 300 mg Documented By: YOANA Glucose (Glucose Gel 15 Gm Gel..Gram.) 15 gm PO Q15M PRN; Protocol PRN Reason: per Hypoglycemia Standing Ord. Guaifenesin (Guaifenesin 100 Mg/5 Ml Liquid) 5 ml PO Q6H PRN PRN Reason: Cough Heparin Sodium (Porcine) (Heparin Sodium,Porcine 5,000 Unit/Ml Vial) 5,000 unit SUBCUT Q8H [facility] Last Admin: 11/12/21 09:39 Dose: 5,000 unit Documented By: ISABEL Ceftriaxone Sodium 1 gm/ (Sodium Chloride) 50 mls @ 100 mls/hr IV Q24H [facility] Last Admin: 11/12/21 15:19 Dose: 100 mls/hr Documented By: ISABEL Azithromycin 500 mg/ Sodium (Chloride) 250 mls @ 125 mls/hr IV Q24H [facility] Last Infusion: 11/11/21 20:39 Dose: 0 mls/hr Documented By: YOANA Insulin Glargine (Insulin Glargine,Hum.Rec.Anlog 100 Unit/Ml 10 Ml Vial) 50 unit SUBCUT DAILY [facility] Last Admin: 11/12/21 09:38 Dose: 50 unit Documented By: ISABEL Insulin Human Lispro (Insulin Lispro 100 Unit/Ml 3 Ml Vial) 0 unit SUBCUT QIDACHS [facility]; Protocol Last Admin: 11/12/21 12:22 Dose: 8 unit Documented By: ISABEL Ipratropium [place] (Ipratropium [place] Sam 0.03 % 30 Ml [place]) 2 spray NOSTRIL-B BID [facility] Last Admin: 11/12/21 11:33 Dose: Not Given Documented By: ISABEL Non-Admin Reason: Med Not Available Ketoconazole (Ketoconazole 2 % Shampoo 120 Ml Btl) 1 appl TOPICAL MoFr@2100 [facility]; Protocol Lidocaine/Diphenhydr/Alum/Mg/Simeth (Mag&Al/Sim/Diphenhyd/Lidocaine 10 Ml Oral.Susp) 10 ml PO Q4H PRN; Protocol PRN Reason: throat pain Last Admin: 11/12/21 12:22 Dose: 10 ml Documented By: ISABEL Lisinopril (Lisinopril 10 Mg Tablet) 10 mg PO DAILY [facility]; Protocol Last Admin: 11/12/21 07:46 Dose: 10 mg Documented By: ISABEL Methylprednisolone Sodium Succinate (Methylprednisolone Sod Succ 40 Mg/Ml Vial) 40 mg IVPUSH BID [facility] Last Admin: 11/12/21 07:44 Dose: 40 mg Documented By: ISABEL Metoprolol Tartrate (Metoprolol Tartrate 25 Mg Tablet) 25 mg PO TID [facility]; Protocol Last Admin: 11/12/21 15:20 Dose: 25 mg Documented By: ISABEL Non-Formulary Medication (Roflumilast [Daliresp]) 250 mcg PO DAILY [facility] Non-Formulary Medication (Vibegron [Gemtesa]) 75 mg PO DAILY [facility] Nystatin (Nystatin Oral Susp 500,000 Unit/5 Ml Oral.Susp) 400,000 unit PO QID [facility]; Protocol Last Admin: 11/12/21 12:21 Dose: 400,000 unit Documented By: ISABEL Omeprazole (Omeprazole 20 Mg Capsule.Dr) 20 mg PO BID@0630,1630 [facility] Last Admin: 11/12/21 15:20 Dose: 20 mg Documented By: ISABEL Pharmacy Consult (Consult Rx Perform Med Rec) 1 each MISCELLANE ONCE PRN PRN Reason: Consult order Sodium Chloride (0.9 % Sodium Chloride Flush 3 Ml Syringe) 3 ml IVFLUSH QSHIFT [facility] Last Admin: 11/12/21 15:21 Dose: 3 ml Documented By: ISABEL Tramadol HCl (Tramadol Hcl 50 Mg Tablet) 50 mg PO Q8H PRN PRN Reason: pain, severe Last Admin: 11/12/21 10:39 Dose: 50 mg Documented By: ISABEL Zolpidem Tartrate (Zolpidem Tartrate 5 Mg Tablet) 5 mg PO BEDTIME [facility] Last Admin: 11/11/21 20:31 Dose: 5 mg Documented By: YOANA Labs CBC & Chem 7: 11/12/21 06:22 11/12/21 06:22 Labs: Laboratory Results - last 24 hr 11/11/21 11/11/21 11/11/21 16:50 17:20 18:34 MCV MCH MCHC RDW Plt Count MPV Immature Gran % (Auto) Neut % (Auto) Lymph % (Auto) [place] % (Auto) Eos % (Auto) Baso % (Auto) Lymph # (Auto) [place] # (Auto) Eos # (Auto) Baso # (Auto) Abs Immat Gran (auto) Absolute Neuts (auto) Absolute Nucleated RBC Nucleated RBC % (auto) Anion Gap Estim Creat Clear Calc Estimated GFR POC Glucose Random Glucose Calcium Urine Color Dark Yellow Urine Appearance Clear Urine pH 6.0 Ur Specific [place] 1.025 Urine Protein 30 (1+) H Urine Glucose (UA) Negative Urine Ketones Trace Urine Blood Negative Urine Nitrite Negative Ur Leukocyte Esterase Trace H Urine RBC 0-2 Urine WBC 0-5 Ur Squamous Epith Cells 6-10 Urine Bacteria Trace Hyaline Casts 0-2 Respiratory Panel [place] See Note Adenovirus (Rapid PCR) Not Detected B.pert (TEM-PCR) Not Detected B.parapertussis DNA PCR Not Detected C. pneumoniae DNA (PCR) Not Detected Coronavirus OC43 (PCR) Not Detected Coronavirus HKU1 (PCR) Not Detected Coronavirus 229E (PCR) Not Detected Coronavirus NL63 (PCR) Not Detected Human Metapneumovir PCR Not Detected Influenza A (RT-PCR) Not Detected Influenza B (RT-PCR) Not Detected M. pneumoniae (PCR) Not Detected Parainfluenza 1 (PCR) Not Detected Parainfluenza 2 (PCR) Not Detected Parainfluenza 3 (PCR) Not Detected Parainfluenza 4 (PCR) Not Detected RSV (PCR) Not Detected Entero/Rhino (PCR) Not Detected SARS-CoV-2 RNA (RT-PCR) Not Detected S. pyogenes GrpA CANDY Negative 11/11/21 11/12/21 11/12/21 20:48 06:22 06:22 MCV 90.6 MCH 29.2 MCHC 32.2 RDW 14.4 Plt Count 277 MPV 9.7 Immature Gran % (Auto) 0.6 H Neut % (Auto) 89.0 H Lymph % (Auto) 8.3 L [place] % (Auto) 1.9 L Eos % (Auto) 0.0 Baso % (Auto) 0.2 Lymph # (Auto) 1.0 L [place] # (Auto) 0.2 Eos # (Auto) 0.0 Baso # (Auto) 0.0 Abs Immat Gran (auto) 0.08 H Absolute Neuts (auto) 11.1 H Absolute Nucleated RBC 0.000 Nucleated RBC % (auto) 0.0 Anion Gap 17 Estim Creat Clear Calc 42.2 Estimated GFR 41 POC Glucose 153 H Random Glucose 405 H* D Calcium 8.7 D Urine Color Urine Appearance Urine pH Ur Specific [place] Urine Protein Urine Glucose (UA) Urine Ketones Urine Blood Urine Nitrite Ur Leukocyte Esterase Urine RBC Urine WBC Ur Squamous Epith Cells Urine Bacteria Hyaline Casts Respiratory Panel [place] Adenovirus (Rapid PCR) B.pert (TEM-PCR) B.parapertussis DNA PCR C. pneumoniae DNA (PCR) Coronavirus OC43 (PCR) Coronavirus HKU1 (PCR) Coronavirus 229E (PCR) Coronavirus NL63 (PCR) Human Metapneumovir PCR Influenza A (RT-PCR) Influenza B (RT-PCR) M. pneumoniae (PCR) Parainfluenza 1 (PCR) Parainfluenza 2 (PCR) Parainfluenza 3 (PCR) Parainfluenza 4 (PCR) RSV (PCR) Entero/Rhino (PCR) SARS-CoV-2 RNA (RT-PCR) S. pyogenes GrpA CANDY 11/12/21 11/12/21 07:05 12:10 MCV MCH MCHC RDW Plt Count MPV Immature Gran % (Auto) Neut % (Auto) Lymph % (Auto) [place] % (Auto) Eos % (Auto) Baso % (Auto) Lymph # (Auto) [place] # (Auto) Eos # (Auto) Baso # (Auto) Abs Immat Gran (auto) Absolute Neuts (auto) Absolute Nucleated RBC Nucleated RBC % (auto) Anion Gap Estim Creat Clear Calc Estimated GFR POC Glucose 337 H 349 H Random Glucose Calcium Urine Color Urine Appearance Urine pH Ur Specific [place] Urine Protein Urine Glucose (UA) Urine Ketones Urine Blood Urine Nitrite Ur Leukocyte Esterase Urine RBC Urine WBC Ur Squamous Epith Cells Urine Bacteria Hyaline Casts Respiratory Panel [place] Adenovirus (Rapid PCR) B.pert (TEM-PCR) B.parapertussis DNA PCR C. pneumoniae DNA (PCR) Coronavirus OC43 (PCR) Coronavirus HKU1 (PCR) Coronavirus 229E (PCR) Coronavirus NL63 (PCR) Human Metapneumovir PCR Influenza A (RT-PCR) Influenza B (RT-PCR) M. pneumoniae (PCR) Parainfluenza 1 (PCR) Parainfluenza 2 (PCR) Parainfluenza 3 (PCR) Parainfluenza 4 (PCR) RSV (PCR) Entero/Rhino (PCR) SARS-CoV-2 RNA (RT-PCR) S. pyogenes GrpA CANDY Microbiology Microbiology Results: Microbiology 11/11/21 13:29 Blood Culture - Preliminary Blood - Venous No growth after 24 hours. Assessment and Plan (1) Morbid obesity: Status: Acute (2) Community acquired pneumonia: Status: Acute (3) Acute on chronic respiratory failure with hypoxemia: Status: Acute Plan 71-year-old female with multiple medical comorbidities including history of? arthritis, asthma, asthma COPD overlap syndrome, cardiomegaly, diabetes, hypertension, hyperlipidemia,hx of lyphoma ,s/p post correction of Arnold-Chiari malformation,hx gerd and pud ,josy on cpap:? patient came to the hospital because of worsening shortness of breath from 3-4 days duration: ?1.? Acute on chronic hypoxemic respiratory failure secondary to pneumonia and asthma/copd exacerbation(mild intermittent asthma) ? Patient has tachycardia and leukocytosis- has sepsis possible secondary to pneumonia. ? Lactic acid normal, sepsis exam completed. ? Blood cultures sent, urine strep and Legionella antigen, res panel, strep throat culture added. ? Will start the patient on nebs, steroids, antibiotics, oxygen support,? Cough medication, lozenzes. ?continue to monitor, if respiratory status worsen will get ABG. 2.? sleep apnea: continue home CPAP. 3.htn:? stable,continue lisinopril. 4. diabetes type 2: uncontrolled possible steriods contributing ? Continue fingersticks with? sliding scale coverage, home adjusted Lantus. 5. morbid obesity: ? Advised to lose weight, cutdown calories. 6. hx of gerd/pud:? continue PPIs. 7.? persistent nausea vomiting:? Seems to be improving ?no diarrhea or abdominal pain or fever ?will continue to monitor, symptomatic treatment with Zofran. ?DVT prophylaxis:? With subQ heparin. Need for inpatient:Acute on chronic hypoxemic respiratory failure secondary to pneumonia and asthma/copd exacerbation(mild intermittent asthma) Quality Stroke Does the patient have a stroke diagnosis?: No VTE Prior VTE?: No VTE Risk Level:: Medical - moderate - high VTE Device Contraindication: N/A - Device Ordered VTE Drug Contraindication: N/A - Med Ordered
[2021-11-12 16:29] LABS: Glucose, Whole Blood 504 mg/dL (60-115)
[2021-11-12] MEDS: oxyCODONE HCl Immed Release 5 MG TABLET PO (17:20)
[2021-11-12] MEDS: Cyclobenzaprine HCl 5 MG TABLET PO (17:20)
[2021-11-12] MEDS: Azithromycin 500 MG in 0.9 % Sodium Chloride 250 ML 125 MG IV (19:33)
--- NOTE | 2021-11-12 20:13 | PC.NURSE ---
Assumed care of pt. at 1900. Pt. is sitting in bed watching tv and talking on the phone. PT. is under no apparent distress. Respiratory in room to perform another breathing treatment. Pt. medicated per MAY. Moved pt.'s bed to make her more comfortable. Will continue to monitor.
[2021-11-12 20:34] LABS: Glucose, Whole Blood 427 mg/dL (60-115)
[2021-11-12] MEDS: Gabapentin 300 MG CAPSULE PO (22:05)
[2021-11-12] MEDS: Zolpidem Tartrate 5 MG TABLET PO (22:05)
[2021-11-12] MEDS: Insulin Lispro 100 UNIT/ML 3 ML VIAL 10 UNIT SUBCUT (22:23)
--- NOTE | 2021-11-12 22:55 | PC.NURSE ---
Pt. complaining of her IV bothering her and requesting a new one. New line placed in left forearm.
[2021-11-13] VITALS (11 sets, daily range): BP systolic 101–133; BP diastolic 43–78; PULSE 56–78; RESP 16–24; TEMP 36–36.8; O2SAT 90–98; BMI 47.3
--- NOTE | 2021-11-13 02:21 | PC.NURSE ---
Pt. ambulating in room. SOB with exertion. O2 90 when NC replaced. Up to 96 after back in bed. Pt. now resting in bed awaiting transfer to [facility].
[2021-11-13] MEDS: Heparin Sodium,Porcine 5,000 UNIT/ML VIAL 5000 UNIT SUBCUT ×3 (03:42→16:59)
[2021-11-13] MEDS: oxyCODONE HCl Immed Release 5 MG TABLET PO ×2 (03:43→10:04)
[2021-11-13] MEDS: Omeprazole 20 MG CAPSULE.DR PO ×2 (05:42→16:59)
[2021-11-13] MEDS: Albuterol/Iprat 2.5/0.5MG 3 ML AMPUL.NEB INHALE ×4 (08:05→20:49)
[2021-11-13 08:17] LABS: Glucose, Whole Blood 214 mg/dL (60-115)
[2021-11-13] MEDS: Nystatin Oral Susp 500,000 UNIT/5 ML ORAL.SUSP 400000 UNIT PO ×4 (08:30→21:34)
[2021-11-13] MEDS: DULoxetine HCl 60 MG CAPSULE.DR PO (08:31)
[2021-11-13] MEDS: Metoprolol Tartrate 25 MG TABLET PO ×2 (08:31→21:33)
[2021-11-13] MEDS: Donepezil HCl 5 MG TABLET PO (08:31)
[2021-11-13] MEDS: busPIRone HCl 5 MG TABLET 15 MG PO ×2 (08:31→21:33)
[2021-11-13] MEDS: Insulin Lispro 100 UNIT/ML 3 ML VIAL SUBCUT ×4 (08:32→21:31)
[2021-11-13 08:34] LABS: Hematocrit 30.8 % (37.0-47.0); Mean Corpuscular HGB Conc 32.5 g/dl (31.0-35.0); Mean Corpuscular Hemoglobin 29.4 pg (27.0-33.0); Mean Corpuscular Volume 90.6 fL (80.0-98.0); Mean Platelet Volume 9.4 fL (9.4-12.3); Platelet Count 282 X10*3/uL (160-400); Red Cell Distribution Width 14.5 % (11.0-16.0); White Blood Count 19.4 X10*3/uL (4.8-10.8)
[2021-11-13] MEDS: 0.9 % Sodium Chloride Flush 3 ML SYRINGE IVFLUSH ×3 (08:40→21:34)
[2021-11-13] MEDS: Insulin Glargine,Hum.rec.anlog 100 UNIT/ML 10 ML VIAL 50 UNIT SUBCUT (08:44)
[2021-11-13 08:47] LABS: Anion Gap 13 (12-20); Blood Urea Nitrogen 40 mg/dL (9-16); Calcium 8.7 mg/dL (8.4-10.2); Carbon Dioxide 26 mmol/L (22-29); Chloride 103 mmol/L (96-108); Creatinine Clr Calc Pharmacy 51.9; Estimated Glomerular Filt Rate 47; Glucose Random 231 mg/dL (60-115); Potassium 4.8 mmol/L (3.3-5.1); Sodium 137 mmol/L (135-145)
[2021-11-13 12:11] LABS: Glucose, Whole Blood 356 mg/dL (60-115)
--- NOTE | 2021-11-13 13:12 | P.PNIM_ITS ---
Subjective Subjective Date of Service: 11/13/21 Interval History: Acute on chronic hypoxemic respiratory failure, ch. back pain Review of Systems seems sob , has cough Denies any chest pain or abdominal pain Has back pain Physical Exam Vital Signs: Vital Signs: Last Vital Signs Temp 96.8 F 11/13/21 12:00 Pulse 69 11/13/21 12:00 Resp 16 11/13/21 12:00 BP 129/63 11/13/21 12:00 Pulse Ox 93 11/13/21 12:00 O2 Del Method 11/13/21 12:00 O2 Flow Rate 2 11/13/21 12:00 Oxygen Flow Rate 2 11/11/21 13:09 BMI result Body Mass Index 47.3 Appearance: Alert.? Oriented X3.?still sob. cvs: rrr, [id number] res: diminshed breath sounds right>left, has b/l rhonchii abd: no rebound or guarding ,nt, bs present. ext pulses present , no cyanosis ,no edema neuro: axo3 , nonfocal. Objective Data Active Medications Acetaminophen (Acetaminophen 325 Mg Tablet) 650 mg PO Q6H PRN PRN Reason: pain Albuterol/Ipratropium (Albuterol/Iprat 2.5/0.5mg 3 Ml Ampul.Neb) 3 ml INHALE RQ4H [facility] Last Admin: 11/13/21 11:54 Dose: 3 ml Documented By: GURU Benzocaine (Throat Lozenge, Medicated Lozenge) 1 lozenge MUCOUS MEM Q2H PRN PRN Reason: Sore Throat Benzonatate (Benzonatate 100 Mg Capsule) 100 mg PO TID PRN PRN Reason: Cough Buspirone HCl (Buspirone Hcl 5 Mg Tablet) 15 mg PO BID [facility] Last Admin: 11/13/21 08:31 Dose: 15 mg Documented By: TIM Clonazepam (Clonazepam 0.5 Mg Tablet) 0.5 mg PO BID PRN PRN Reason: Anxiety Last Admin: 11/12/21 10:41 Dose: 0.5 mg Documented By: ISABEL Cyclobenzaprine HCl (Cyclobenzaprine Hcl 5 Mg Tablet) 5 mg PO TID PRN PRN Reason: Pain, Mild (Pain Scale 1-3) Last Admin: 11/12/21 17:20 Dose: 5 mg Documented By: ISABEL Dextrose (Dextrose 50 % 25 Gm/50 Ml Syringe) 25 gm IVPUSH Q15M PRN; Protocol PRN Reason: per Hypoglycemia Standing Ord. Donepezil HCl (Donepezil Hcl 5 Mg Tablet) 5 mg PO DAILY [facility] Last Admin: 11/13/21 08:31 Dose: 5 mg Documented By: TIM Duloxetine HCl (Duloxetine Hcl 60 Mg Capsule.Dr) 60 mg PO DAILY [facility] Last Admin: 11/13/21 08:31 Dose: 60 mg Documented By: TIM Gabapentin (Gabapentin 300 Mg Capsule) 300 mg PO BEDTIME [facility] Last Admin: 11/12/21 22:05 Dose: 300 mg Documented By: KEISHA Glucose (Glucose Gel 15 Gm Gel..Gram.) 15 gm PO Q15M PRN; Protocol PRN Reason: per Hypoglycemia Standing Ord. Guaifenesin (Guaifenesin 100 Mg/5 Ml Liquid) 5 ml PO Q6H PRN PRN Reason: Cough Heparin Sodium (Porcine) (Heparin Sodium,Porcine 5,000 Unit/Ml Vial) 5,000 unit SUBCUT Q8H [facility] Last Admin: 11/13/21 08:31 Dose: 5,000 unit Documented By: TIM Ceftriaxone Sodium 1 gm/ (Sodium Chloride) 50 mls @ 100 mls/hr IV Q24H [facility] Last Infusion: 11/12/21 15:50 Dose: 0 mls/hr Documented By: EVGENY Azithromycin 500 mg/ Sodium (Chloride) 250 mls @ 125 mls/hr IV Q24H [facility] Last Infusion: 11/13/21 03:45 Dose: 0 mls/hr Documented By: ISABELL Insulin Glargine (Insulin Glargine,Hum.Rec.Anlog 100 Unit/Ml 10 Ml Vial) 50 unit SUBCUT DAILY [facility] Last Admin: 11/13/21 08:44 Dose: 50 unit Documented By: TIM Insulin Human Lispro (Insulin Lispro 100 Unit/Ml 3 Ml Vial) 0 unit SUBCUT QIDACHS [facility]; Protocol Last Admin: 11/13/21 12:14 Dose: 6 unit Documented By: TIM Ipratropium [place] (Ipratropium [place] Sam 0.03 % 30 Ml [place]) 2 spray NOSTRIL-B BID [facility] Last Admin: 11/12/21 22:24 Dose: Not Given Documented By: KEISHA Non-Admin Reason: Med Not Available Ketoconazole (Ketoconazole 2 % Shampoo 120 Ml Btl) 1 appl TOPICAL MoFr@2100 [facility]; Protocol Last Admin: 11/12/21 22:24 Dose: Not Given Documented By: KEISHA Non-Admin Reason: Med Not Available Lidocaine/Diphenhydr/Alum/Mg/Simeth (Mag&Al/Sim/Diphenhyd/Lidocaine 10 Ml Oral.Susp) 10 ml PO Q4H PRN; Protocol PRN Reason: throat pain Last Admin: 11/12/21 12:22 Dose: 10 ml Documented By: ISABEL Lisinopril (Lisinopril 10 Mg Tablet) 10 mg PO DAILY [facility]; Protocol Last Admin: 11/12/21 07:46 Dose: 10 mg Documented By: ISABEL Metoprolol Tartrate (Metoprolol Tartrate 25 Mg Tablet) 25 mg PO TID [facility]; Protocol Last Admin: 11/13/21 08:31 Dose: 25 mg Documented By: TIM Non-Formulary Medication (Roflumilast [Daliresp]) 250 mcg PO DAILY [facility] Non-Formulary Medication (Vibegron [Gemtesa]) 75 mg PO DAILY [facility] Nystatin (Nystatin Oral Susp 500,000 Unit/5 Ml Oral.Susp) 400,000 unit PO QID [facility]; Protocol Last Admin: 11/13/21 12:13 Dose: 400,000 unit Documented By: TIM Omeprazole (Omeprazole 20 Mg Capsule.Dr) 20 mg PO BID@0630,1630 [facility] Last Admin: 11/13/21 05:42 Dose: 20 mg Documented By: ISABELL Oxycodone HCl (Oxycodone Hcl Immed Release 5 Mg Tablet) 5 mg PO Q6H PRN PRN Reason: Pain, Mild (Pain Scale 1-3) Last Admin: 11/13/21 10:04 Dose: 5 mg Documented By: TIM Pharmacy Consult (Consult Rx Perform Med Rec) 1 each MISCELLANE ONCE PRN PRN Reason: Consult order Sodium Chloride (0.9 % Sodium Chloride Flush 3 Ml Syringe) 3 ml IVFLUSH QSHIFT [facility] Last Admin: 11/13/21 08:40 Dose: 3 ml Documented By: TIM Tramadol HCl (Tramadol Hcl 50 Mg Tablet) 50 mg PO Q8H PRN PRN Reason: pain, severe Last Admin: 11/12/21 10:39 Dose: 50 mg Documented By: ISABEL Zolpidem Tartrate (Zolpidem Tartrate 5 Mg Tablet) 5 mg PO BEDTIME [facility] Last Admin: 11/12/21 22:05 Dose: 5 mg Documented By: KEISHA Labs CBC & Chem 7: 11/13/21 08:21 11/13/21 08:21 Labs: Laboratory Results - last 24 hr 11/12/21 11/12/21 11/13/21 16:14 20:25 07:52 MCV MCH MCHC RDW Plt Count MPV Absolute Nucleated RBC Nucleated RBC % (auto) Anion Gap Estim Creat Clear Calc Estimated GFR POC Glucose 504 H* 427 H* 214 H Random Glucose Calcium 11/13/21 11/13/21 11/13/21 08:21 08:21 11:49 MCV 90.6 MCH 29.4 MCHC 32.5 RDW 14.5 Plt Count 282 MPV 9.4 Absolute Nucleated RBC 0.000 Nucleated RBC % (auto) 0.0 Anion Gap 13 Estim Creat Clear Calc 51.9 Estimated GFR 47 POC Glucose 356 H* Random Glucose 231 H Calcium 8.7 Microbiology Microbiology Results: Microbiology 11/12/21 11:54 Throat Culture - Preliminary Throat No Group A Beta-hemolytic Streptococci isolated to date. 11/11/21 14:34 Blood Culture - Preliminary Blood - Venous No growth after 24 hours. 11/11/21 13:29 Blood Culture - Preliminary Blood - Venous No growth after 24 hours. Assessment and Plan (1) Acute on chronic respiratory failure with hypoxemia: Status: Acute (2) Community acquired pneumonia: Status: Acute (3) Back pain: Status: Acute Plan 71-year-old female with multiple medical comorbidities including history of? arthritis, asthma, asthma COPD overlap syndrome, cardiomegaly, diabetes, hypertension, hyperlipidemia,hx of lyphoma ,s/p post correction of Arnold-Chiari malformation,hx gerd and pud ,josy on cpap:? patient came to the hospital because of worsening shortness of breath from 3-4 days duration: ?1.? Acute on chronic hypoxemic respiratory failure secondary to pneumonia and asthma/copd? exacerbation(mild intermittent asthma) ? Patient has tachycardia and leukocytosis- has sepsis possible secondary to pneumonia. ? Lactic acid normal, sepsis exam completed. ? Blood cultures sent, urine strep and Legionella antigen, res panel, strep throat culture added. ? Will start the patient on nebs, steroids, antibiotics, oxygen support,? Cough medication, lozenzes. ?continue to monitor, if respiratory status worsen will get ABG. 2.? sleep apnea: continue home CPAP. 3.htn:? stable,continue lisinopril. 4. diabetes type 2: uncontrolled possible steriods contributing ? Continue fingersticks with? sliding scale coverage, home adjusted Lantus. 5. morbid obesity: ? Advised to lose weight, cutdown calories. 6. hx of gerd/pud:? continue PPIs. 7.? persistent nausea vomiting:? Seems to be improved with symptomatic treatment with Zofran. 8. Back pain: Chronic Lumbar x-ray shows some compression deformities otherwise unremarkable. Continue tramadol and acetaminophen,oxycodone for pain management, also patient is doing outpatient PT for above. Also patient leaning to do further workup with her PCP outpatient. ?DVT prophylaxis:? With subQ heparin. Need for inpatient:Acute on chronic hypoxemic respiratory failure secondary to pneumonia and asthma/copd? exacerbation(mild intermittent asthma) Quality Stroke Does the patient have a stroke diagnosis?: No VTE Prior VTE?: No VTE Risk Level:: Medical - moderate - high VTE Device Contraindication: N/A - Device Ordered VTE Drug Contraindication: N/A - Med Ordered
[2021-11-13] MEDS: cefTRIAXone sodium 1 GM in 0.9 % Sodium Chloride 50 ML IV (15:18)
[2021-11-13 16:45] LABS: Glucose, Whole Blood 272 mg/dL (60-115)
[2021-11-13] MEDS: Azithromycin 500 MG in 0.9 % Sodium Chloride 250 ML 125 MG IV (16:58)
[2021-11-13 19:38] LABS: Glucose, Whole Blood 166 mg/dL (60-115)
[2021-11-13] MEDS: Gabapentin 300 MG CAPSULE PO (21:33)
[2021-11-13] MEDS: Zolpidem Tartrate 5 MG TABLET PO (21:34)
[2021-11-13] MEDS: traMADoL HCL 50 MG TABLET PO (21:35)
[2021-11-13] MEDS: Benzonatate 100 MG CAPSULE PO (21:35)
[2021-11-13] MEDS: clonazePAM 0.5 MG TABLET PO (21:36)
[2021-11-13] MEDS: Cyclobenzaprine HCl 5 MG TABLET PO (21:36)
[2021-11-13] MEDS: Throat Lozenge, Medicated LOZENGE 1 LOZENGE MUCOUS MEM (21:36)
[2021-11-14] VITALS (7 sets, daily range): BP systolic 107–162; BP diastolic 57–74; PULSE 58–76; RESP 16–20; TEMP 36–36.6; O2SAT 92–98
[2021-11-14] MEDS: Heparin Sodium,Porcine 5,000 UNIT/ML VIAL 5000 UNIT SUBCUT ×3 (00:55→16:58)
[2021-11-14] MEDS: Omeprazole 20 MG CAPSULE.DR PO ×2 (06:02→15:45)
[2021-11-14 08:04] LABS: Glucose, Whole Blood 73 mg/dL (60-115)
[2021-11-14] MEDS: busPIRone HCl 5 MG TABLET 15 MG PO ×2 (08:24→20:06)
[2021-11-14] MEDS: Donepezil HCl 5 MG TABLET PO (08:24)
[2021-11-14] MEDS: Nystatin Oral Susp 500,000 UNIT/5 ML ORAL.SUSP 400000 UNIT PO ×4 (08:24→20:07)
[2021-11-14] MEDS: Metoprolol Tartrate 25 MG TABLET PO ×3 (08:24→20:07)
[2021-11-14] MEDS: DULoxetine HCl 60 MG CAPSULE.DR PO (08:24)
[2021-11-14] MEDS: 0.9 % Sodium Chloride Flush 3 ML SYRINGE IVFLUSH ×3 (08:25→20:07)
--- NOTE | 2021-11-14 10:22 | HO.PM.IMPN ---
Subjective Subjective Date of Service: 11/14/21 Interval History: Acute on chronic hypoxemic respiratory failure, ch. back pain Review of Systems seems sob simialr to yesterday, talking in short sentences , has cough Denies any chest pain or abdominal pain Has back pain Physical Exam Vital Signs: Vital Signs: Last Vital Signs Temp 97.5 F 11/14/21 07:10 Pulse 62 11/14/21 03:03 Resp 20 11/14/21 07:10 BP 107/64 11/14/21 07:10 Pulse Ox 94 11/14/21 07:10 O2 Del Method 11/14/21 07:10 O2 Flow Rate 2 11/14/21 07:10 Oxygen Flow Rate 2 11/11/21 13:09 BMI result Body Mass Index 47.3 Appearance: Alert.? Oriented X3.?still sob. cvs: [id number], [id number] res: diminshed breath sounds right>left, has b/l rhonchii abd: no rebound or guarding ,nt, bs present. ext pulses present , no cyanosis ,no edema neuro: axo3 , nonfocal. Objective Data Active Medications Acetaminophen (Acetaminophen 325 Mg Tablet) 650 mg PO Q6H PRN PRN Reason: pain Albuterol/Ipratropium (Albuterol/Iprat 2.5/0.5mg 3 Ml Ampul.Neb) 3 ml INHALE RQ4H [facility] Last Admin: 11/14/21 08:27 Dose: Not Given Documented By: SHAKIRA Non-Admin Reason: pt unavail Benzocaine (Throat Lozenge, Medicated Lozenge) 1 lozenge MUCOUS MEM Q2H PRN PRN Reason: Sore Throat Last Admin: 11/13/21 21:36 Dose: 1 lozenge Documented By: CASTILM Benzonatate (Benzonatate 100 Mg Capsule) 100 mg PO TID PRN PRN Reason: Cough Last Admin: 11/13/21 21:35 Dose: 100 mg Documented By: ISABELL Buspirone HCl (Buspirone Hcl 5 Mg Tablet) 15 mg PO BID [facility] Last Admin: 11/14/21 08:24 Dose: 15 mg Documented By: TIM Clonazepam (Clonazepam 0.5 Mg Tablet) 0.5 mg PO BID PRN PRN Reason: Anxiety Last Admin: 11/13/21 21:36 Dose: 0.5 mg Documented By: ISABELL Cyclobenzaprine HCl (Cyclobenzaprine Hcl 5 Mg Tablet) 5 mg PO TID PRN PRN Reason: Pain, Mild (Pain Scale 1-3) Last Admin: 11/13/21 21:36 Dose: 5 mg Documented By: ISABELL Dextrose (Dextrose 50 % 25 Gm/50 Ml Syringe) 25 gm IVPUSH Q15M PRN; Protocol PRN Reason: per Hypoglycemia Standing Ord. Donepezil HCl (Donepezil Hcl 5 Mg Tablet) 5 mg PO DAILY [facility] Last Admin: 11/14/21 08:24 Dose: 5 mg Documented By: TIM Duloxetine HCl (Duloxetine Hcl 60 Mg Capsule.Dr) 60 mg PO DAILY [facility] Last Admin: 11/14/21 08:24 Dose: 60 mg Documented By: TIM Gabapentin (Gabapentin 300 Mg Capsule) 300 mg PO BEDTIME [facility] Last Admin: 11/13/21 21:33 Dose: 300 mg Documented By: ISABELL Glucose (Glucose Gel 15 Gm Gel..Gram.) 15 gm PO Q15M PRN; Protocol PRN Reason: per Hypoglycemia Standing Ord. Guaifenesin (Guaifenesin 100 Mg/5 Ml Liquid) 5 ml PO Q6H PRN PRN Reason: Cough Heparin Sodium (Porcine) (Heparin Sodium,Porcine 5,000 Unit/Ml Vial) 5,000 unit SUBCUT Q8H [facility] Last Admin: 11/14/21 08:24 Dose: 5,000 unit Documented By: TIM Ceftriaxone Sodium 1 gm/ (Sodium Chloride) 50 mls @ 100 mls/hr IV Q24H [facility] Last Infusion: 11/13/21 15:51 Dose: 0 mls/hr Documented By: TIM Azithromycin 500 mg/ Sodium (Chloride) 250 mls @ 125 mls/hr IV Q24H [facility] Last Infusion: 11/13/21 19:04 Dose: 0 mls/hr Documented By: TIM Insulin Glargine (Insulin Glargine,Hum.Rec.Anlog 100 Unit/Ml 10 Ml Vial) 50 unit SUBCUT DAILY [facility] Last Admin: 11/14/21 09:47 Dose: Not Given Documented By: TIM Non-Admin Reason: No Insulin Coverage Insulin Human Lispro (Insulin Lispro 100 Unit/Ml 3 Ml Vial) 0 unit SUBCUT QIDACHS [facility]; Protocol Last Admin: 11/14/21 08:25 Dose: Not Given Documented By: TIM Non-Admin Reason: No Insulin Coverage Ipratropium [place] (Ipratropium [place] Sam 0.03 % 30 Ml [place]) 2 spray NOSTRIL-B BID [facility] Last Admin: 11/13/21 21:45 Dose: Not Given Documented By: ISABELL Non-Admin Reason: Med Not Available Ketoconazole (Ketoconazole 2 % Shampoo 120 Ml Btl) 1 appl TOPICAL MoFr@2100 [facility]; Protocol Last Admin: 11/12/21 22:24 Dose: Not Given Documented By: KEISHA Non-Admin Reason: Med Not Available Lidocaine/Diphenhydr/Alum/Mg/Simeth (Mag&Al/Sim/Diphenhyd/Lidocaine 10 Ml Oral.Susp) 10 ml PO Q4H PRN; Protocol PRN Reason: throat pain Last Admin: 11/12/21 12:22 Dose: 10 ml Documented By: ISABEL Lisinopril (Lisinopril 10 Mg Tablet) 10 mg PO DAILY [facility]; Protocol Last Admin: 11/12/21 07:46 Dose: 10 mg Documented By: ISABEL Metoprolol Tartrate (Metoprolol Tartrate 25 Mg Tablet) 25 mg PO TID [facility]; Protocol Last Admin: 11/14/21 08:24 Dose: 25 mg Documented By: TIM Non-Formulary Medication (Roflumilast [Daliresp]) 250 mcg PO DAILY [facility] Non-Formulary Medication (Vibegron [Gemtesa]) 75 mg PO DAILY [facility] Nystatin (Nystatin Oral Susp 500,000 Unit/5 Ml Oral.Susp) 400,000 unit PO QID [facility]; Protocol Last Admin: 11/14/21 08:24 Dose: 400,000 unit Documented By: TIM Omeprazole (Omeprazole 20 Mg Capsule.Dr) 20 mg PO BID@0630,1630 [facility] Last Admin: 11/14/21 06:02 Dose: 20 mg Documented By: ISABELL Oxycodone HCl (Oxycodone Hcl Immed Release 5 Mg Tablet) 5 mg PO Q6H PRN PRN Reason: Pain, Mild (Pain Scale 1-3) Last Admin: 11/13/21 10:04 Dose: 5 mg Documented By: TIM Pharmacy Consult (Consult Rx Perform Med Rec) 1 each MISCELLANE ONCE PRN PRN Reason: Consult order Sodium Chloride (0.9 % Sodium Chloride Flush 3 Ml Syringe) 3 ml IVFLUSH QSHIFT [facility] Last Admin: 11/14/21 08:25 Dose: 3 ml Documented By: TIM Tramadol HCl (Tramadol Hcl 50 Mg Tablet) 50 mg PO Q8H PRN PRN Reason: pain, severe Last Admin: 11/13/21 21:35 Dose: 50 mg Documented By: ISABELL Zolpidem Tartrate (Zolpidem Tartrate 5 Mg Tablet) 5 mg PO BEDTIME [facility] Last Admin: 11/13/21 21:34 Dose: 5 mg Documented By: NASILAlex Labs CBC & Chem 7: 11/13/21 08:21 11/13/21 08:21 Labs: Laboratory Results - last 24 hr 11/13/21 11/13/21 11/13/21 11:49 16:00 19:30 POC Glucose 356 H* 272 H 166 H 11/14/21 08:01 POC Glucose 73 Microbiology Microbiology Results: Microbiology 11/12/21 11:54 Throat Culture - Final Throat No Group A Beta-hemolytic Streptococci isolated. 11/11/21 14:34 Blood Culture - Preliminary Blood - Venous No growth after 48 hours. 11/11/21 13:29 Blood Culture - Preliminary Blood - Venous No growth after 48 hours. Assessment and Plan (1) Acute on chronic respiratory failure with hypoxemia: Status: Acute (2) Community acquired pneumonia: Status: Acute (3) Back pain: Status: Acute Plan 71-year-old female with multiple medical comorbidities including history of? arthritis, asthma, asthma COPD overlap syndrome, cardiomegaly, diabetes, hypertension, hyperlipidemia,hx of lyphoma ,s/p post correction of Arnold-Chiari malformation,hx gerd and pud ,josy on cpap:? patient came to the hospital because of worsening shortness of breath from 3-4 days duration: ?1.? Acute on chronic hypoxemic respiratory failure secondary to pneumonia and asthma/copd? exacerbation(mild intermittent asthma): sob still -minimum improvement ? Patient has tachycardia and leukocytosis- has sepsis possible secondary to pneumonia. ? Lactic acid normal, sepsis exam completed. ? Blood cultures neg@48hs, urine strep and Legionella antigen pending, res panel neg, strep throat culture -neg. ? continue on nebs, steroids, antibiotics, oxygen support,? Cough medication, lozenzes. ?continue to monitor, if respiratory status worsen will get ABG. 2.? sleep apnea: continue home CPAP. 3.htn:? stable,continue lisinopril. 4. diabetes type 2: uncontrolled possible steriods contributing ? Continue fingersticks with? sliding scale coverage, home adjusted Lantus. 5. morbid obesity: ? Advised to lose weight, cutdown calories. 6. hx of gerd/pud:? continue PPIs. 7.? persistent nausea vomiting:? Seems to be improved with symptomatic treatment with Zofran. 8. Back pain: Chronic Lumbar x-ray shows some compression deformities otherwise unremarkable. Continue tramadol and acetaminophen,oxycodone for pain management,added lidocaine patch ,capsacian cream also patient is doing outpatient PT for above. Also patient leaning to do further workup with her PCP outpatient. ?DVT prophylaxis:? With subQ heparin. Need for inpatient:Acute on chronic hypoxemic respiratory failure secondary to pneumonia and asthma/copd? exacerbation(mild intermittent asthma) Quality Stroke Does the patient have a stroke diagnosis?: No VTE Prior VTE?: No VTE Risk Level:: Medical - moderate - high VTE Device Contraindication: N/A - Device Ordered VTE Drug Contraindication: N/A - Med Ordered
[2021-11-14] MEDS: methylPREDNISolone Sod Succ 40 MG/ML VIAL IVPUSH ×2 (11:30→21:57)
[2021-11-14] MEDS: Lidocaine 4 % Patch ADH..PATCH 1 PATCH TRANSDERMA (11:31)
[2021-11-14 11:41] LABS: Glucose, Whole Blood 111 mg/dL (60-115)
[2021-11-14] MEDS: cefTRIAXone sodium 1 GM in 0.9 % Sodium Chloride 50 ML IV (14:47)
[2021-11-14] MEDS: Magnesium Hydrox/Alum Hydrox 30 ML ORAL.SUSP 15 ML PO (15:45)
[2021-11-14 16:19] LABS: Glucose, Whole Blood 166 mg/dL (60-115)
[2021-11-14] MEDS: Pantoprazole Sodium 40 MG/10 ML VIAL IVPUSH (16:58)
[2021-11-14] MEDS: Azithromycin 500 MG in 0.9 % Sodium Chloride 250 ML 125 MG IV (16:58)
[2021-11-14] MEDS: Insulin Lispro 100 UNIT/ML 3 ML VIAL SUBCUT ×2 (16:58→20:13)
[2021-11-14] MEDS: Albuterol/Iprat 2.5/0.5MG 3 ML AMPUL.NEB INHALE (19:53)
[2021-11-14 19:56] LABS: Glucose, Whole Blood 390 mg/dL (60-115)
[2021-11-14] MEDS: Gabapentin 300 MG CAPSULE PO (20:06)
[2021-11-14] MEDS: Zolpidem Tartrate 5 MG TABLET PO (21:57)
[2021-11-15] VITALS (10 sets, daily range): BP systolic 129–144; BP diastolic 56–92; PULSE 58–89; RESP 16–20; TEMP 36.1–36.4; O2SAT 93–98
[2021-11-15] MEDS: Heparin Sodium,Porcine 5,000 UNIT/ML VIAL 5000 UNIT SUBCUT ×3 (02:52→16:58)
[2021-11-15] MEDS: Pantoprazole Sodium 40 MG/10 ML VIAL IVPUSH ×2 (06:01→17:02)
[2021-11-15] MEDS: Omeprazole 20 MG CAPSULE.DR PO ×2 (06:01→15:21)
[2021-11-15 07:27] LABS: Glucose, Whole Blood 229 mg/dL (60-115)
[2021-11-15] MEDS: busPIRone HCl 5 MG TABLET 15 MG PO ×2 (08:38→20:31)
[2021-11-15] MEDS: Donepezil HCl 5 MG TABLET PO (08:38)
[2021-11-15] MEDS: 0.9 % Sodium Chloride Flush 3 ML SYRINGE IVFLUSH ×3 (08:38→22:49)
[2021-11-15] MEDS: Nystatin Oral Susp 500,000 UNIT/5 ML ORAL.SUSP 400000 UNIT PO ×4 (08:38→20:32)
[2021-11-15] MEDS: Metoprolol Tartrate 25 MG TABLET PO ×3 (08:38→20:31)
[2021-11-15] MEDS: DULoxetine HCl 60 MG CAPSULE.DR PO (08:38)
[2021-11-15] MEDS: Insulin Glargine,Hum.rec.anlog 100 UNIT/ML 10 ML VIAL 50 UNIT SUBCUT (08:39)
[2021-11-15] MEDS: Insulin Lispro 100 UNIT/ML 3 ML VIAL SUBCUT ×4 (08:40→20:39)
[2021-11-15] MEDS: Albuterol/Iprat 2.5/0.5MG 3 ML AMPUL.NEB INHALE ×4 (08:47→20:08)
[2021-11-15 11:38] LABS: Glucose, Whole Blood 329 mg/dL (60-115)
[2021-11-15] MEDS: methylPREDNISolone Sod Succ 40 MG/ML VIAL IVPUSH ×2 (11:52→22:42)
[2021-11-15] MEDS: LORazepam 0.5 MG TABLET PO (11:53)
--- NOTE | 2021-11-15 12:54 | HO.PM.IMPN ---
Subjective Subjective Date of Service: 11/15/21 Interval History: Acute on chronic hypoxemic respiratory failure, ch. back pain,possible gerd Review of Systems Patient having lot of nausea and vomiting? Says that have lot of acidy feedin Shortness of breath slowly improving, but still gets short of breath with walking Denies any chest pain or abdominal pain or fever or chills. Physical Exam Vital Signs: Vital Signs: Last Vital Signs Temp 97.2 F 11/15/21 11:04 Pulse 89 11/15/21 12:42 Resp 18 11/15/21 12:42 BP 144/62 H 11/15/21 11:04 Pulse Ox 95 11/15/21 11:04 O2 Del Method 11/15/21 11:04 O2 Flow Rate 2 11/15/21 11:04 Oxygen Flow Rate 2 11/11/21 13:09 BMI result Body Mass Index 47.3 Appearance: Alert.? Oriented X3.?still sob. cvs: rrr, [id number] res: diminshed breath sounds right>left, has b/l rhonchii abd: no rebound or guarding ,nt, bs present. ext pulses present , no cyanosis ,no edema neuro: axo3 , nonfocal. Objective Data Active Medications Acetaminophen (Acetaminophen 325 Mg Tablet) 650 mg PO Q6H PRN PRN Reason: pain Albuterol/Ipratropium (Albuterol/Iprat 2.5/0.5mg 3 Ml Ampul.Neb) 3 ml INHALE RQ4H [facility] Last Admin: 11/15/21 12:42 Dose: 3 ml Documented By: FLAKITO Benzocaine (Throat Lozenge, Medicated Lozenge) 1 lozenge MUCOUS MEM Q2H PRN PRN Reason: Sore Throat Last Admin: 11/13/21 21:36 Dose: 1 lozenge Documented By: CASTILM Benzonatate (Benzonatate 100 Mg Capsule) 100 mg PO TID PRN PRN Reason: Cough Last Admin: 11/13/21 21:35 Dose: 100 mg Documented By: ISABELL Buspirone HCl (Buspirone Hcl 5 Mg Tablet) 15 mg PO BID [facility] Last Admin: 11/15/21 08:38 Dose: 15 mg Documented By: TIM Capsaicin (Capsaicin 0.025% Cream 60 Gm Tube) 1 appl TOPICAL QID PRN; Protocol PRN Reason: Pain, Mild (Pain Scale 1-3) Clonazepam (Clonazepam 0.5 Mg Tablet) 0.5 mg PO BID PRN PRN Reason: Anxiety Last Admin: 11/13/21 21:36 Dose: 0.5 mg Documented By: ISABELL Cyclobenzaprine HCl (Cyclobenzaprine Hcl 5 Mg Tablet) 5 mg PO TID PRN PRN Reason: Pain, Mild (Pain Scale 1-3) Last Admin: 11/13/21 21:36 Dose: 5 mg Documented By: ISABELL Dextrose (Dextrose 50 % 25 Gm/50 Ml Syringe) 25 gm IVPUSH Q15M PRN; Protocol PRN Reason: per Hypoglycemia Standing Ord. Donepezil HCl (Donepezil Hcl 5 Mg Tablet) 5 mg PO DAILY [facility] Last Admin: 11/15/21 08:38 Dose: 5 mg Documented By: TIM Duloxetine HCl (Duloxetine Hcl 60 Mg Capsule.Dr) 120 mg PO DAILY [facility] Gabapentin (Gabapentin 300 Mg Capsule) 300 mg PO BEDTIME [facility] Last Admin: 11/14/21 20:06 Dose: 300 mg Documented By: ODRISAlex Glucose (Glucose Gel 15 Gm Gel..Gram.) 15 gm PO Q15M PRN; Protocol PRN Reason: per Hypoglycemia Standing Ord. Guaifenesin (Guaifenesin 100 Mg/5 Ml Liquid) 5 ml PO Q6H PRN PRN Reason: Cough Heparin Sodium (Porcine) (Heparin Sodium,Porcine 5,000 Unit/Ml Vial) 5,000 unit SUBCUT Q8H [facility] Last Admin: 11/15/21 08:45 Dose: 5,000 unit Documented By: TIM Ceftriaxone Sodium 1 gm/ (Sodium Chloride) 50 mls @ 100 mls/hr IV Q24H [facility] Last Infusion: 11/14/21 15:30 Dose: 0 mls/hr Documented By: TIM Azithromycin 500 mg/ Sodium (Chloride) 250 mls @ 125 mls/hr IV Q24H [facility] Last Infusion: 11/14/21 19:10 Dose: 0 mls/hr Documented By: ANASTASIA Insulin Glargine (Insulin Glargine,Hum.Rec.Anlog 100 Unit/Ml 10 Ml Vial) 50 unit SUBCUT DAILY [facility] Last Admin: 11/15/21 08:39 Dose: 50 unit Documented By: TIM Insulin Human Lispro (Insulin Lispro 100 Unit/Ml 3 Ml Vial) 0 unit SUBCUT QIDACHS [facility]; Protocol Last Admin: 11/15/21 11:53 Dose: 10 unit Documented By: TIM Ipratropium [place] (Ipratropium [place] Sam 0.03 % 30 Ml [place]) 2 spray NOSTRIL-B BID [facility] Last Admin: 11/15/21 02:53 Dose: Not Given Documented By: BERNARDO Non-Admin Reason: Patient Refused Ketoconazole (Ketoconazole 2 % Shampoo 120 Ml Btl) 1 appl TOPICAL MoFr@2100 [facility]; Protocol Last Admin: 11/12/21 22:24 Dose: Not Given Documented By: KEISHA Non-Admin Reason: Med Not Available Lidocaine (Lidocaine 4 % Patch Adh..Patch) 1 patch TRANSDERMA DAILY [facility]; Protocol Last Admin: 11/15/21 08:40 Dose: Not Given Documented By: TIM Non-Admin Reason: Patient Refused Lidocaine/Diphenhydr/Alum/Mg/Simeth (Mag&Al/Sim/Diphenhyd/Lidocaine 10 Ml Oral.Susp) 10 ml PO Q4H PRN; Protocol PRN Reason: throat pain Last Admin: 11/12/21 12:22 Dose: 10 ml Documented By: ISABEL Lisinopril (Lisinopril 10 Mg Tablet) 10 mg PO DAILY [facility]; Protocol Last Admin: 11/12/21 07:46 Dose: 10 mg Documented By: ISABEL Methylprednisolone Sodium Succinate (Methylprednisolone Sod Succ 40 Mg/Ml Vial) 40 mg IVPUSH Q12H [facility] Last Admin: 11/15/21 11:52 Dose: 40 mg Documented By: TIM Metoprolol Tartrate (Metoprolol Tartrate 25 Mg Tablet) 25 mg PO TID [facility]; Protocol Last Admin: 11/15/21 08:38 Dose: 25 mg Documented By: TIM Non-Formulary Medication (Roflumilast [Daliresp]) 250 mcg PO DAILY [facility] Non-Formulary Medication (Vibegron [Gemtesa]) 75 mg PO DAILY [facility] Nystatin (Nystatin Oral Susp 500,000 Unit/5 Ml Oral.Susp) 400,000 unit PO QID [facility]; Protocol Last Admin: 11/15/21 11:52 Dose: 400,000 unit Documented By: TIM Omeprazole (Omeprazole 20 Mg Capsule.Dr) 20 mg PO BID@0630,1630 [facility] Last Admin: 11/15/21 06:01 Dose: 20 mg Documented By: BERNARDO Oxycodone HCl (Oxycodone Hcl Immed Release 5 Mg Tablet) 5 mg PO Q6H PRN PRN Reason: Pain, Mild (Pain Scale 1-3) Last Admin: 11/13/21 10:04 Dose: 5 mg Documented By: TIM Pantoprazole Sodium (Pantoprazole Sodium 40 Mg/10 Ml Vial) 40 mg IVPUSH BID@0630,1630 [facility] Last Admin: 11/15/21 06:01 Dose: 40 mg Documented By: BERNARDO Pharmacy Consult (Consult Rx Perform Med Rec) 1 each MISCELLANE ONCE PRN PRN Reason: Consult order Sodium Chloride (0.9 % Sodium Chloride Flush 3 Ml Syringe) 3 ml IVFLUSH [facility] Last Admin: 11/15/21 08:38 Dose: 3 ml Documented By: TIM Tramadol HCl (Tramadol Hcl 50 Mg Tablet) 50 mg PO Q8H PRN PRN Reason: pain, severe Last Admin: 11/13/21 21:35 Dose: 50 mg Documented By: CASTILAlex Zolpidem Tartrate (Zolpidem Tartrate 5 Mg Tablet) 5 mg PO BEDTIME [facility] Last Admin: 11/14/21 21:57 Dose: 5 mg Documented By: BERNARDO Labs CBC & Chem 7: 11/13/21 08:21 11/13/21 08:21 Labs: Laboratory Results - last 24 hr 11/14/21 11/14/21 11/15/21 16:04 19:36 07:17 POC Glucose 166 H 390 H* 229 H 11/15/21 11:09 POC Glucose 329 H Assessment and Plan (1) Acute on chronic respiratory failure with hypoxemia: Status: Acute (2) Community acquired pneumonia: Status: Acute (3) Back pain: Status: Acute Plan 71-year-old female with multiple medical comorbidities including history of? arthritis, asthma, asthma COPD overlap syndrome, cardiomegaly, diabetes, hypertension, hyperlipidemia,hx of lyphoma ,s/p post correction of Arnold-Chiari malformation,hx gerd and pud ,josy on cpap:? patient came to the hospital because of worsening shortness of breath from 3-4 days duration: ?1.? Acute on chronic hypoxemic respiratory failure secondary to pneumonia and asthma/copd? exacerbation(mild intermittent asthma): sob still -minimum improvement ? Patient has tachycardia and leukocytosis- has sepsis possible secondary to pneumonia. ? Lactic acid normal, sepsis exam completed. ? Blood cultures neg@48hs, urine strep and Legionella antigen pending, res panel neg, strep throat culture -neg. ? continue on nebs, steroids, antibiotics, oxygen support,? Cough medication, lozenzes. ?continue to monitor, if respiratory status worsen will get ABG. 2.? sleep apnea: continue home CPAP. 3.htn:? stable,continue lisinopril. 4. diabetes type 2: uncontrolled possible steriods contributing ? Continue fingersticks with? sliding scale coverage, home adjusted Lantus. 5. morbid obesity: ? Advised to lose weight, cutdown calories. 6. hx of gerd/pud:? continue PPIs. 7.? persistent nausea vomiting:? Seems to be improved with symptomatic treatment with Zofran. 8. Back pain: Chronic Lumbar x-ray shows some compression deformities C3 and L5 (unchanged)otherwise unremarkable. Continue tramadol and acetaminophen,oxycodone for pain management,added lidocaine patch ,capsacian cream also patient is doing outpatient PT for above. Also patient leaning to do further workup with her PCP outpatient. 9. possible gerd vs gastritis: slightly improving continue ppi ?DVT prophylaxis:? With subQ heparin. Need for inpatient:Acute on chronic hypoxemic respiratory failure secondary to pneumonia and asthma/copd? exacerbation(mild intermittent asthma) Quality Stroke Does the patient have a stroke diagnosis?: No VTE Prior VTE?: No VTE Risk Level:: Medical - moderate - high VTE Device Contraindication: N/A - Device Ordered VTE Drug Contraindication: N/A - Med Ordered
--- NOTE | 2021-11-15 13:53 | MHC.CM.PN ---
NO PLAN FOR DISCHARGE TODAY. PATIENT STILL NOT IMPROVED. CASE MANAGEMENT FOLLOWING FOR HER RETURN HOME
[2021-11-15] MEDS: cefTRIAXone sodium 1 GM in 0.9 % Sodium Chloride 50 ML IV (15:21)
[2021-11-15 16:45] LABS: Glucose, Whole Blood 301 mg/dL (60-115)
[2021-11-15] MEDS: Azithromycin 500 MG in 0.9 % Sodium Chloride 250 ML 125 MG IV (16:58)
[2021-11-15] MEDS: Gabapentin 300 MG CAPSULE PO (20:31)
[2021-11-15] MEDS: Benzonatate 100 MG CAPSULE PO (20:31)
[2021-11-15 21:08] LABS: Glucose, Whole Blood 321 mg/dL (60-115)
[2021-11-15] MEDS: Zolpidem Tartrate 5 MG TABLET PO (22:47)
[2021-11-16] VITALS (9 sets, daily range): BP systolic 128–157; BP diastolic 64–77; PULSE 48–76; RESP 18–20; TEMP 36–37; O2SAT 92–97
[2021-11-16] MEDS: Heparin Sodium,Porcine 5,000 UNIT/ML VIAL 5000 UNIT SUBCUT ×3 (03:16→17:18)
[2021-11-16] MEDS: Omeprazole 20 MG CAPSULE.DR PO ×2 (05:35→15:56)
[2021-11-16] MEDS: Pantoprazole Sodium 40 MG/10 ML VIAL IVPUSH (05:35)
[2021-11-16 07:27] LABS: Glucose, Whole Blood 317 mg/dL (60-115)
[2021-11-16] MEDS: Albuterol/Iprat 2.5/0.5MG 3 ML AMPUL.NEB INHALE ×2 (07:53→20:13)
[2021-11-16] MEDS: Insulin Lispro 100 UNIT/ML 3 ML VIAL SUBCUT ×4 (08:23→22:35)
[2021-11-16] MEDS: Lidocaine 4 % Patch ADH..PATCH 1 PATCH TRANSDERMA (08:24)
[2021-11-16] MEDS: Insulin Glargine,Hum.rec.anlog 100 UNIT/ML 10 ML VIAL 50 UNIT SUBCUT (08:24)
[2021-11-16] MEDS: Nystatin Oral Susp 500,000 UNIT/5 ML ORAL.SUSP 400000 UNIT PO ×4 (08:25→21:27)
[2021-11-16] MEDS: busPIRone HCl 5 MG TABLET 15 MG PO ×2 (08:26→21:28)
[2021-11-16] MEDS: Metoprolol Tartrate 25 MG TABLET PO ×3 (08:26→21:28)
[2021-11-16] MEDS: DULoxetine HCl 60 MG CAPSULE.DR 120 MG PO (08:26)
[2021-11-16] MEDS: clonazePAM 0.5 MG TABLET PO (08:26)
[2021-11-16] MEDS: Donepezil HCl 5 MG TABLET PO (08:26)
[2021-11-16] MEDS: 0.9 % Sodium Chloride Flush 3 ML SYRINGE IVFLUSH ×3 (08:27→21:29)
[2021-11-16 11:34] LABS: Glucose, Whole Blood 342 mg/dL (60-115)
[2021-11-16] MEDS: methylPREDNISolone Sod Succ 40 MG/ML VIAL IVPUSH ×2 (11:37→21:28)
[2021-11-16] MEDS: Benzonatate 100 MG CAPSULE PO ×2 (11:41→21:28)
[2021-11-16] MEDS: cefTRIAXone sodium 1 GM in 0.9 % Sodium Chloride 50 ML IV (15:48)
--- NOTE | 2021-11-16 15:55 | HO.PM.IMPN ---
Subjective Subjective Date of Service: 11/16/21 Interval History: seen in f/u for copd exacerbation doing better, HR down to 48 but assymptomatic\ Review of Systems no sob no chest pain, no dizziness Physical Exam Vital Signs: Vital Signs: Last Vital Signs Temp 98.1 F 11/16/21 11:37 Pulse 48 L 11/16/21 11:37 Resp 20 11/16/21 11:37 BP 137/64 11/16/21 11:37 Pulse Ox 97 11/16/21 11:37 O2 Del Method 11/16/21 11:37 O2 Flow Rate 2 11/16/21 11:37 Oxygen Flow Rate 2 11/11/21 13:09 BMI result Body Mass Index 47.3 Const: Other: General: AO X 3, no acute distress Resp: CTA bilateral CVS: S1,S2,RRR GI: +BS, NT, no distention Skin: No rash Neuro: motor grossly intact Psych: appropriate affect Objective Data Active Medications Acetaminophen (Acetaminophen 325 Mg Tablet) 650 mg PO Q6H PRN PRN Reason: pain Albuterol/Ipratropium (Albuterol/Iprat 2.5/0.5mg 3 Ml Ampul.Neb) 3 ml INHALE RQ4H [facility] Last Admin: 11/16/21 11:28 Dose: Not Given Documented By: SHAKIRA Non-Admin Reason: Patient Refused Benzocaine (Throat Lozenge, Medicated Lozenge) 1 lozenge MUCOUS MEM Q2H PRN PRN Reason: Sore Throat Last Admin: 11/13/21 21:36 Dose: 1 lozenge Documented By: CASTILAlex Benzonatate (Benzonatate 100 Mg Capsule) 100 mg PO TID PRN PRN Reason: Cough Last Admin: 11/16/21 11:41 Dose: 100 mg Documented By: JJ Buspirone HCl (Buspirone Hcl 5 Mg Tablet) 15 mg PO BID [facility] Last Admin: 11/16/21 08:26 Dose: 15 mg Documented By: JJ Capsaicin (Capsaicin 0.025% Cream 60 Gm Tube) 1 appl TOPICAL QID PRN; Protocol PRN Reason: Pain, Mild (Pain Scale 1-3) Clonazepam (Clonazepam 0.5 Mg Tablet) 0.5 mg PO BID PRN PRN Reason: Anxiety Last Admin: 11/16/21 08:26 Dose: 0.5 mg Documented By: JJ Cyclobenzaprine HCl (Cyclobenzaprine Hcl 5 Mg Tablet) 5 mg PO TID PRN PRN Reason: Pain, Mild (Pain Scale 1-3) Last Admin: 11/13/21 21:36 Dose: 5 mg Documented By: CASTILAlex Dextrose (Dextrose 50 % 25 Gm/50 Ml Syringe) 25 gm IVPUSH Q15M PRN; Protocol PRN Reason: per Hypoglycemia Standing Ord. Donepezil HCl (Donepezil Hcl 5 Mg Tablet) 5 mg PO DAILY [facility] Last Admin: 11/16/21 08:26 Dose: 5 mg Documented By: JJ Duloxetine HCl (Duloxetine Hcl 60 Mg Capsule.Dr) 120 mg PO DAILY [facility] Last Admin: 11/16/21 08:26 Dose: 120 mg Documented By: JJ Gabapentin (Gabapentin 300 Mg Capsule) 300 mg PO BEDTIME [facility] Last Admin: 11/15/21 20:31 Dose: 300 mg Documented By: BERNARDO Glucose (Glucose Gel 15 Gm Gel..Gram.) 15 gm PO Q15M PRN; Protocol PRN Reason: per Hypoglycemia Standing Ord. Guaifenesin (Guaifenesin 100 Mg/5 Ml Liquid) 5 ml PO Q6H PRN PRN Reason: Cough Heparin Sodium (Porcine) (Heparin Sodium,Porcine 5,000 Unit/Ml Vial) 5,000 unit SUBCUT Q8H [facility] Last Admin: 11/16/21 08:23 Dose: 5,000 unit Documented By: JJ Ceftriaxone Sodium 1 gm/ (Sodium Chloride) 50 mls @ 100 mls/hr IV Q24H [facility] Last Infusion: 11/15/21 16:26 Dose: 0 mls/hr Documented By: TIM Azithromycin 500 mg/ Sodium (Chloride) 250 mls @ 125 mls/hr IV Q24H [facility] Last Infusion: 11/15/21 19:41 Dose: 0 mls/hr Documented By: BERNARDO Insulin Glargine (Insulin Glargine,Hum.Rec.Anlog 100 Unit/Ml 10 Ml Vial) 50 unit SUBCUT DAILY [facility] Last Admin: 11/16/21 08:24 Dose: 50 unit Documented By: JJ Insulin Human Lispro (Insulin Lispro 100 Unit/Ml 3 Ml Vial) 0 unit SUBCUT QIDACHS [facility]; Protocol Last Admin: 11/16/21 11:37 Dose: 10 unit Documented By: JJ Ipratropium [place] (Ipratropium [place] Sam 0.03 % 30 Ml [place]) 2 spray NOSTRIL-B BID [facility] Last Admin: 11/15/21 22:41 Dose: Not Given Documented By: BERNARDO Non-Admin Reason: Med Not Available Ketoconazole (Ketoconazole 2 % Shampoo 120 Ml Btl) 1 appl TOPICAL MoFr@2100 [facility]; Protocol Last Admin: 11/15/21 22:11 Dose: Not Given Documented By: BERNARDO Non-Admin Reason: Patient Refused Lidocaine (Lidocaine 4 % Patch Adh..Patch) 1 patch TRANSDERMA DAILY [facility]; Protocol Last Admin: 11/16/21 08:24 Dose: 1 patch Documented By: JJ Lidocaine/Diphenhydr/Alum/Mg/Simeth (Mag&Al/Sim/Diphenhyd/Lidocaine 10 Ml Oral.Susp) 10 ml PO Q4H PRN; Protocol PRN Reason: throat pain Last Admin: 11/12/21 12:22 Dose: 10 ml Documented By: ISABEL Lisinopril (Lisinopril 10 Mg Tablet) 10 mg PO DAILY [facility]; Protocol Last Admin: 11/12/21 07:46 Dose: 10 mg Documented By: ISABEL Methylprednisolone Sodium Succinate (Methylprednisolone Sod Succ 40 Mg/Ml Vial) 40 mg IVPUSH Q12H [facility] Last Admin: 11/16/21 11:37 Dose: 40 mg Documented By: JJ Metoprolol Tartrate (Metoprolol Tartrate 25 Mg Tablet) 25 mg PO TID [facility]; Protocol Last Admin: 11/16/21 08:26 Dose: 25 mg Documented By: JJ Non-Formulary Medication (Roflumilast [Daliresp]) 250 mcg PO DAILY [facility] Non-Formulary Medication (Vibegron [Gemtesa]) 75 mg PO DAILY [facility] Nystatin (Nystatin Oral Susp 500,000 Unit/5 Ml Oral.Susp) 400,000 unit PO QID [facility]; Protocol Last Admin: 11/16/21 12:45 Dose: 400,000 unit Documented By: JJ Omeprazole (Omeprazole 20 Mg Capsule.Dr) 20 mg PO BID@0630,1630 [facility] Last Admin: 11/16/21 05:35 Dose: 20 mg Documented By: BERNARDO Oxycodone HCl (Oxycodone Hcl Immed Release 5 Mg Tablet) 5 mg PO Q6H PRN PRN Reason: Pain, Mild (Pain Scale 1-3) Last Admin: 11/13/21 10:04 Dose: 5 mg Documented By: TIM Pharmacy Consult (Consult Rx Perform Med Rec) 1 each MISCELLANE ONCE PRN PRN Reason: Consult order Sodium Chloride (0.9 % Sodium Chloride Flush 3 Ml Syringe) 3 ml IVFLUSH QSHIFT [facility] Last Admin: 11/16/21 08:27 Dose: 3 ml Documented By: JJ Tramadol HCl (Tramadol Hcl 50 Mg Tablet) 50 mg PO Q8H PRN PRN Reason: pain, severe Last Admin: 11/13/21 21:35 Dose: 50 mg Documented By: CASTCRIS Zolpidem Tartrate (Zolpidem Tartrate 5 Mg Tablet) 5 mg PO BEDTIME [facility] Last Admin: 11/15/21 22:47 Dose: 5 mg Documented By: BERNARDO Labs CBC & Chem 7: 11/13/21 08:21 11/13/21 08:21 Labs: Laboratory Results - last 24 hr 11/15/21 11/15/21 11/16/21 16:31 20:27 07:20 POC Glucose 301 H 321 H 317 H 11/16/21 11:30 POC Glucose 342 H Microbiology Microbiology Results: Microbiology 11/11/21 13:29 Blood Culture - Final Blood - Venous No growth after 5 days. Assessment and Plan (1) Acute on chronic respiratory failure with hypoxemia: Status: Acute (2) Community acquired pneumonia: Status: Acute (3) Back pain: Status: Acute Plan 71-year-old female with multiple medical comorbidities including history of? arthritis, asthma, asthma COPD overlap syndrome, cardiomegaly, diabetes, hypertension, hyperlipidemia,hx of lyphoma ,s/p post correction of Arnold-Chiari malformation,hx gerd and pud ,josy on cpap:? patient came to the hospital because of worsening shortness of breath from 3-4 days duration: ?1.? Acute on chronic hypoxemic respiratory failure secondary to pneumonia and asthma/copd? exacerbation(mild intermittent asthma): sob still -minimum improvement ? improved, change to PO steroid, po abx. 2.? sleep apnea: continue home CPAP. 3.htn:? stable,continue lisinopril. 4. diabetes type 2: uncontrolled possible steriods contributing ? Continue fingersticks with? sliding scale coverage, home adjusted Lantus. 5. morbid obesity: ? Advised to lose weight, cutdown calories. 6. hx of gerd/pud:? continue PPIs. 7.? persistent nausea vomiting:? Seems to be improved with symptomatic treatment with Zofran. 8. Back pain: Chronic Lumbar x-ray shows some compression deformities C3 and L5 (unchanged)otherwise unremarkable. Continue tramadol and acetaminophen,oxycodone for pain management,added lidocaine patch ,capsacian cream also patient is doing outpatient PT for above. Also patient leaning to do further workup with her PCP outpatient. 9. possible gerd vs gastritis: slightly improving continue ppi 10. bradycardia--assymptomatic, no on bb or ccb, monitor ?DVT prophylaxis:? With subQ heparin. Need for inpatient:Acute on chronic hypoxemic respiratory failure secondary to pneumonia and asthma/copd? exacerbation(mild intermittent asthma) Quality Stroke Does the patient have a stroke diagnosis?: No VTE Prior VTE?: No VTE Risk Level:: Medical - moderate - high VTE Device Contraindication: N/A - Device Ordered VTE Drug Contraindication: N/A - Med Ordered
[2021-11-16] MEDS: Azithromycin 500 MG in 0.9 % Sodium Chloride 250 ML 125 MG IV (16:22)
[2021-11-16 16:57] LABS: Glucose, Whole Blood 235 mg/dL (60-115)
[2021-11-16 20:52] LABS: Glucose, Whole Blood 291 mg/dL (60-115)
[2021-11-16] MEDS: Gabapentin 300 MG CAPSULE PO (21:28)
[2021-11-17 01:31] LABS: Glucose, Whole Blood 394 mg/dL (60-115)
[2021-11-17] MEDS: Heparin Sodium,Porcine 5,000 UNIT/ML VIAL 5000 UNIT SUBCUT ×2 (01:52→11:04)
[2021-11-17] MEDS: Insulin Lispro 100 UNIT/ML 3 ML VIAL SUBCUT ×3 (01:52→11:05)
[2021-11-17 03:45] VITALS: BP 140/69; PULSE 56; RESP 18; TEMP 36; O2SAT 96
[2021-11-17] MEDS: Omeprazole 20 MG CAPSULE.DR PO (06:35)
[2021-11-17 06:41] LABS: Glucose, Whole Blood 222 mg/dL (60-115)
[2021-11-17 07:31] VITALS: BP 145/65; PULSE 54; RESP 20; TEMP 36.6; O2SAT 92
[2021-11-17] MEDS: Insulin Glargine,Hum.rec.anlog 100 UNIT/ML 10 ML VIAL 50 UNIT SUBCUT (07:31)
[2021-11-17] MEDS: DULoxetine HCl 60 MG CAPSULE.DR 120 MG PO (07:31)
[2021-11-17] MEDS: Metoprolol Tartrate 25 MG TABLET PO (07:31)
[2021-11-17] MEDS: Donepezil HCl 5 MG TABLET PO (07:31)
[2021-11-17] MEDS: busPIRone HCl 5 MG TABLET 15 MG PO (07:32)
[2021-11-17] MEDS: Nystatin Oral Susp 500,000 UNIT/5 ML ORAL.SUSP 400000 UNIT PO (07:32)
[2021-11-17] MEDS: Lidocaine 4 % Patch ADH..PATCH 1 PATCH TRANSDERMA (07:32)
[2021-11-17] MEDS: Albuterol/Iprat 2.5/0.5MG 3 ML AMPUL.NEB INHALE (07:42)
[2021-11-17 07:44] VITALS: PULSE 71; RESP 18; O2SAT 94
[2021-11-17 07:49] LABS: Glucose, Whole Blood 204 mg/dL (60-115)
[2021-11-17 08:56] VITALS: PULSE 71
[2021-11-17] MEDS: 0.9 % Sodium Chloride Flush 3 ML SYRINGE IVFLUSH (11:04)
[2021-11-17] MEDS: methylPREDNISolone Sod Succ 40 MG/ML VIAL IVPUSH (11:05)
[2021-11-17 11:13] LABS: Glucose, Whole Blood 324 mg/dL (60-115)
[2021-11-17 11:38] VITALS: BP 160/70; PULSE 57; RESP 20; TEMP 36.6; O2SAT 98
--- NOTE | 2021-11-17 11:56 | P.DS_ITS ---
DS: Providers Provider Date of Service: 11/17/21 Date of admission: 11/11/21 16:57 Primary care physician: Rito Olivas MD Consults: 11/15/21 10:54 Consult to Care Team Routine Comment: Reason for consultation: severe anxiety DS: Diagnosis Discharge Diagnosis (1) Acute on chronic respiratory failure with hypoxemia: Status: Acute (2) Community acquired pneumonia: Status: Acute (3) Back pain: Status: Acute DS: Summary Hospital Course Hospital Course: Attending physician on admission: Chente Ham Chief Complaint: sob ?71-year-old female with multiple medical comorbidities including history of? arthritis, asthma, asthma COPD overlap syndrome, cardiomegaly, diabetes, hypertension, hyperlipidemia,hx of lyphoma ,s/p post correction of Arnold-Chiari malformation,hx gerd and pud ,josy on cpap:? patient came to the hospital because of worsening shortness of breath from 3-4 days duration.? Patient says that she ate some chicken? few days back and subsequently started to have? worsening shortness of breath, nausea, vomiting ,? she also has throat pain. ?last vomited this morning early . ?she initially also describes some chest tightness with cough and was reproducible, chest tightness resolved.? Still feels sore with deep breathing. ? Patient has cough with yellow sputum which is new. ? Denies any complaint of abdominal pain or fever or chills or diarrahe Denies any weakness or numbness. ? Patient denies any recent travel or any sick contacts or antibiotic use, also patient says she has vaccinated with Pfizerx4. ? Lab imaging EKG reviewed: ?WBC count 17.7 ?BUN 24, creatinine 1.1, lactic acid 1.7 ?chest x-ray: Multifocal airspace opacities ?BNP fine,ddmier fine trops 10.9 Hospital course: 71-year-old female with multiple medical comorbidities including history of? arthritis, asthma, asthma COPD overlap syndrome, cardiomegaly, diabetes, hypertension, hyperlipidemia,hx of lyphoma ,s/p post correction of Arnold-Chiari malformation,hx gerd and pud ,josy on cpap:? patient came to the hospital because of worsening shortness of breath from 3-4 days duration: ?1.? Acute on chronic hypoxemic respiratory failure secondary to pneumonia and copd/asthma? exacerbation(mild intermittent asthma). The underlying COPD was treated with bronchidilators by Neb, IV steroid and clinically is doing better, there is no hypoxia, she is on her baseline O2. She will be transitioned to oral prednisone for 3 more days. The underlying pneumonia was treated with IV ceftriaxone, she's afebrile without any features of sepsis which has resolved. Will discharge with Ceftin for a total of 7 days of antibiotics. Blood cultures have been negative > 48 hours. 2.? sleep apnea: continue home CPAP. 3.HTN resume home meds? stable,continue lisinopril. 4. diabetes type 2: uncontrolled possible steriods contributing ? Continue fingersticks with? sliding scale coverage, home adjusted Lantus. 5. morbid obesity: ? Advised to lose weight, cutdown calories. 6. hx of gerd/pud:? continue PPIs. 7.? persistent nausea vomiting:? Seems to be improved with symptomatic treatment with Zofran. 8. Back pain: Chronic Lumbar x-ray shows some compression deformities C3 and L5 (unchanged)otherwise unremarkable. Continue tramadol and acetaminophen,oxycodone for pain management,added l idocaine patch ,capsacian cream also patient is doing outpatient PT for above.? Also patient leaning to do further workup with her PCP outpatient. 9. possible gerd vs gastritis: slightly improving continue ppi Time Spent with Patient Time attestation: Total time spent providing and/or coordinating discharge services: Discharge coordination time: Greater than 30 minutes Quality: Safe Use of Opioids Does Pt have an Active Cancer Diagnosis on the Problem List?: No Quality: Stroke Does the patient have a stroke diagnosis?: No Physical Exam Vital Signs: Vital Signs: Last Vital Signs Temp 98.1 F 11/16/21 11:37 Pulse 48 L 11/16/21 11:37 Resp 20 11/16/21 11:37 BP 137/64 11/16/21 11:37 Pulse Ox 97 11/16/21 11:37 O2 Del Method 11/16/21 11:37 O2 Flow Rate 2 11/16/21 11:37 Oxygen Flow Rate 2 11/11/21 13:09 BMI result Body Mass Index 47.3 DS: Data Data Completed and Pending Labs on day of discharge: Laboratory Results - last 24 hr 11/15/21 11/15/21 11/16/21 16:31 20:27 07:20 POC Glucose 301 H 321 H 317 H 11/16/21 11:30 POC Glucose 342 H Preliminary micro results at discharge 11/11/21 14:34 Blood Culture - Preliminary Blood - Venous No growth after 48 hours. 11/11/21 13:29 Blood Culture - Preliminary Blood - Venous No growth after 48 hours. Discharge Plan Discharge Anticipated Discharge Date/Time: 11/17/21 10:34 Patient Disposition: Home, Self-Care Discharge Diagnosis: Acute respiratory failure, copd, pneumonia Referrals: Rito Olivas MD [Primary Care Provider] - 1 Week Discharge Medications: New prednisone 20 mg tablet 20 mg PO DAILY Qty: 3 0RF cefuroxime axetil 500 mg tablet 500 mg PO BID 7 Days Qty: 6 0RF Continued (ARLEEN) navarro Cabrera See Rx Instructions .ROUTE .MEDSUPPLY Qty: 1 0RF Rx Instructions: As directed tramadol 50 mg tablet 50 mg PO Q8H PRN (Reason: pain, severe) Qty: 9 0RF acetaminophen [Tylenol Extra Strength] 500 mg tablet 500 mg PO Q6H PRN (Reason: fever or pain) Qty: 14 0RF ketoconazole 2 % shampoo 1 appl topical 2XW gabapentin 300 mg capsule 1 cap PO BEDTIME ipratropium bromide 21 mcg (0.03 %) spray,non-aerosol 2 spray intranasal BID buspirone 15 mg tablet 1 tab PO BID Gemtesa 75 mg tablet 75 mg PO DAILY lidocaine 4 % Adhesive Patch,Medicated 1 patch TOPICAL DAILY PRN (Reason: Pain) albuterol sulfate 90 mcg/actuation HFA aerosol inhaler 2 puff PO QID PRN (Reason: Wheezing) zolpidem 10 mg tablet 10 mg PO BEDTIME duloxetine 60 mg capsule,delayed release(DR/EC) 60 mg PO DAILY ibuprofen 600 mg tablet 600 mg PO TID PRN (Reason: Pain) omeprazole 20 mg capsule,delayed release(DR/EC) 20 mg PO DAILY lisinopril 10 mg tablet 10 mg PO DAILY clonazepam 0.5 mg tablet 0.5 mg PO BID PRN (Reason: Anxiety) insulin aspart U-100 100 unit/mL (3 mL) insulin pen 0 sliding scale dose subcut QIDACHS Protocol: Insulin Correction Scale Less than or equal to 110 ---- Give (units): 0 111 to 150 Give (units): 0 151 to 200 Give (units): 2 201 to 250 Give (units): 4 251 to 300 Give (units): 6 301 to 350 Give (units): 8 Greater than 350 Give (units): 10 Call MD if Blood Glucose > : 350 liraglutide 0.6 mg/0.1 mL (18 mg/3 mL) pen injector 1.8 mg subcut DAILY insulin glargine 100 unit/mL (3 mL) insulin pen 54 unit subcut BEDTIME donepezil 5 mg tablet 5 mg PO DAILY Spiriva Respimat 2.5 mcg/actuation mist 2 puff inhalation DAILY 30 Days Qty: 4 11RF budesonide-formoterol 160-4.5 mcg/actuation HFA aerosol inhaler 2 puff PO BID Qty: 10.2 11RF Daliresp 250 mcg tablet 250 mcg PO DAILY 30 Days Qty: 30 11RF Discharge Orders: Discharge Order (Routine); Ordered 11/17/21 Ordered By: Mao Franklin Diet: Advance to usual diet Activity on Discharge: As tolerated Stand Alone Forms: Patient Portal Discharge page Care Plan Goals: Full recovery from copd, penumonia and respiratory failure Health Concerns: copd, penumonia Plan of Treatment: take prednisone, ceftin and inhalers as recommended and follow up with hitesh naranjo in a week Assessment: as above Discharge Date/Time: 11/17/21 13:55
--- NOTE | 2021-11-17 12:18 | MHC.CM.PN ---
Addendum entered by Dena Matute 11/17/21 12:31: Patient dtr is providing transportation home @ 1pm today. Original Note: IMM 11/17/21 [id number] Acute respiratory failure PNA is discharged today. Home services will resume. [employer] 39.5H/WK, Pers unit and Oxygen provided;which is provided by [facility].
[2021-11-17 14:41] LABS: Strep Pneumo Ag urine Not Detected (Not Detected)
[2021-11-19 23:57] LABS: Legionella Ag Urine Not Detected (Not Detected)
== END 2021-11-17 13:55 | disposition home or self-care (01) | DRG 871 ==
LOC: HO.ED 16:51 → HO.EDOVER 17:07 → HO.S3 11-13 01:26 → HO.IMC 11-16 06:08
PROVIDERS: Internal Medicine; Nurse Practitioner Family; Admitting Provider Internal Medicine; Emergency Provider Emergency Medicine Emergency Medical Services; PCP Internal Medicine; Visit Provider Internal Medicine
DX: A41.9 Sepsis, unspecified organism (principal); J18.9 Pneumonia, unspecified organism; J96.21 Acute and chronic respiratory failure with hypoxia; J44.0 Chronic obstructive pulmonary disease with (acute) lower respiratory infection; J44.1 Chronic obstructive pulmonary disease with (acute) exacerbation; Z68.42 Body mass index [BMI] 45.0-49.9, adult; G47.33 Obstructive sleep apnea (adult) (pediatric); Z66 Do not resuscitate; E66.01 Morbid (severe) obesity due to excess calories; E11.9 Type 2 diabetes mellitus without complications; M79.7 Fibromyalgia; E78.5 Hyperlipidemia, unspecified; K21.9 Gastro-esophageal reflux disease without esophagitis; K27.9 Peptic ulcer, site unspecified, unspecified as acute or chronic, without hemorrhage or perforation; M54.9 Dorsalgia, unspecified; G89.29 Other chronic pain; J45.20 Mild intermittent asthma, uncomplicated; Z20.822 Contact with and (suspected) exposure to COVID-19; Z87.798 Personal history of other (corrected) congenital malformations; Z98.84 Bariatric surgery status; Z91.040 Latex allergy status; Z99.81 Dependence on supplemental oxygen; Z88.6 Allergy status to analgesic agent; Z79.4 Long term (current) use of insulin; Z79.52 Long term (current) use of systemic steroids; Z79.899 Other long term (current) drug therapy
CPT/HCPCS: 36415; 71046; 72110; 80048; 80053; 81001; 82947; 83605; 83690; 83880; 84484; 85025; 85027; 87040; 87071; 87449; 87633; 87635; 87651; 87899; 93005; 94640; 96365; 96375; 97116; 97162; 99285; J0456; J0696; J2920; J2930

== ENCOUNTER 2021-11-30 15:29 | Outpatient (REF) | payer OTHER, SELFPAY ==
--- NOTE | ~2021-11-30 | XR_ITS ---
EXAMINATION: XR CHEST CLINICAL INFORMATION: Pneumonia COMPARISON: Previous chest x-ray most recent 11/11/2021 TECHNIQUE: 2 views of the chest were obtained. FINDINGS: The cardiac and mediastinal contours are stable. There is slight elevation of the right hemidiaphragm similar to previous exams. Previously identified right perihilar infiltrate is no longer seen. The lungs are clear. There is no pleural effusion or pneumothorax. There are degenerative changes of the spine and mild curvature to the right. There may be an old left second rib fracture. XR/XR chest 2V IMPRESSION: No evidence for acute disease in the chest. Right-sided perihilar infiltrate has cleared compared to 11/11/2021 exam.
== END 2021-11-30 15:30 | disposition home or self-care (01) ==
LOC: HO.XRAY 15:29
PROVIDERS: PCP Internal Medicine; Visit Provider Hospitalist
DX: J18.9 Pneumonia, unspecified organism (principal); R05.9 Cough, unspecified; R06.02 Shortness of breath; J44.9 Chronic obstructive pulmonary disease, unspecified; J45.41 Moderate persistent asthma with (acute) exacerbation
CPT/HCPCS: 71046; 94618; 99212

== ENCOUNTER → 2022-01-18 14:34 | Outpatient (BNVA) | payer OTHER, SELFPAY | PROVIDERS: PCP Internal Medicine; Visit Provider Hospitalist | DX: J44.9 Chronic obstructive pulmonary disease, unspecified (principal); J45.41 Moderate persistent asthma with (acute) exacerbation; J18.9 Pneumonia, unspecified organism | CPT/HCPCS: 99212 ==

== ENCOUNTER → 2022-02-08 15:25 | Outpatient (BNVA) | payer OTHER, SELFPAY | PROVIDERS: PCP Internal Medicine; Visit Provider Internal Medicine | DX: R13.10 Dysphagia, unspecified (principal); K59.00 Constipation, unspecified | CPT/HCPCS: 99202 ==

== ENCOUNTER 2022-02-25 06:43 | Day surgery (SDC) | payer OTHER, SELFPAY ==
[2022-02-22 13:56] VITALS: BMI 41.3
[2022-02-23 15:41] VITALS: BMI 41.2
[2022-02-25 07:06] VITALS: BP 146/76; PULSE 95; RESP 20; TEMP 37.1; O2SAT 98
--- NOTE | 2022-02-25 07:24 | P.CONAN_ITS ---
PMFSH Active Problems Active Problems:
--- NOTE | 2022-02-25 07:24 | HO.ANESPROP2 ---
[facility] Active Problems Active Problems: All Active Problems (Updated 02/23/22 @ 15:26 by Nikki Ramos RN) Dysphagia (Acute) Constipation (Acute) Post herpetic neuralgia (Acute) Pneumonia (Acute) Chest crackles (Acute) Cardiomegaly (Acute) Asthma-COPD overlap syndrome (Acute) Arthritis (Acute) Fibromyalgia (Acute) Cough (Acute) Asthma (Acute) Sinusitis (Acute) Past Medical History Medical History Acute respiratory failure Arnold-Chiari malformation Arthritis Asthma Asthma-COPD overlap syndrome Back pain Cardiomegaly Chest crackles Cough Diabetes Fibromyalgia [place] (hard of hearing) Hyperlipidemia Hypertension Morbid obesity CASSANDRA treated with BiPAP Pneumonia PONV (postoperative nausea and vomiting) Post herpetic neuralgia Sinusitis Family History Family History Mother HTN (hypertension) Breast cancer Father Primary cancer of bone marrow Family history of problems with anesthesia: No Surgical History Surgical History H/O bilateral breast reduction surgery H/O brain surgery H/O colonoscopy History of esophagogastroduodenoscopy (EGD) Hx of laparoscopic gastric banding History of Problems with Anesthesia: No Social History Social History Household Members: Other Household Members Other:: granddaughter Housing: Apartment Are you a primary pharmacist critical care to a significant other at home: No Do you presently have visiting nurse or other home services: Yes ([employer]) Alcohol intake: never Patient Tobacco Use Status: Former Tobacco user Quit Date: Tobacco use type: Cigarette Years Smoked: 15 +/- Use of substances other than those prescribed or required for medical reasons: No Are you DNR?: No Advance Directives: Yes Advance Directives Information Provided: Yes Advance Directives on File: Yes Advance Directives Date on File: 11/11/21 Meds Allergies Allergy/AdvReac Type Severity Reaction Status Date / Time aspirin [ASPIRIN] Allergy Intermediate GI UPSET, Verified 02/08/22 15:52 stomach pain latex [LATEX] Allergy Intermediate HIVES Verified 02/08/22 15:52 Home Medications Medication Instructions Recorded Confirmed Last Taken Type clonazepam 0.5 mg tablet 0.5 mg PO BID PRN Anxiety 02/06/20 02/23/22 02/25/22 History duloxetine 60 mg capsule,delayed 60 mg PO DAILY 02/06/20 02/23/22 3 Days Ago History release ~11/08/21 ibuprofen 600 mg tablet 600 mg PO TID PRN Pain 02/06/20 11/11/21 Unknown History insulin aspart U-100 100 unit/mL 0 sliding scale dose subcut QIDACHS 02/06/20 02/23/22 11/10/21 History (3 mL) subcutaneous pen lisinopril 10 mg tablet 10 mg PO DAILY 02/06/20 02/23/22 02/25/22 History omeprazole 20 mg capsule,delayed 20 mg PO DAILY 02/06/20 02/23/22 3 Days Ago History release ~11/08/21 zolpidem 10 mg tablet 10 mg PO BEDTIME 02/06/20 02/23/22 3 Days Ago History ~11/08/21 liraglutide 0.6 mg/0.1 mL (18 mg/3 1.8 mg subcut DAILY 04/21/20 02/23/22 3 Days Ago History mL) subcutaneous pen injector ~11/08/21 donepezil 5 mg tablet 5 mg PO DAILY 11/06/20 02/23/22 3 Days Ago History ~11/08/21 insulin glargine 100 unit/mL (3 54 unit subcut BEDTIME 01/05/21 02/23/22 11/10/21 History mL) subcutaneous pen buspirone 15 mg tablet 1 tab PO BID 11/11/21 02/23/22 3 Days Ago History ~11/08/21 ipratropium bromide 21 mcg (0.03 2 spray intranasal BID 11/11/21 02/23/22 3 Days Ago History %) nasal spray ~11/08/21 ketoconazole 2 % shampoo 1 appl topical 2XW 11/11/21 11/11/21 Unknown History lidocaine 4 % topical patch 1 patch topical DAILY PRN Pain 11/11/21 11/11/21 Unknown History vibegron 75 mg tablet (Gemtesa) 75 mg PO DAILY 11/11/21 02/23/22 3 Days Ago History ~11/08/21 CPAP (CPAP Machine/Device) 01/18/22 Unknown History Oxygen Home Use 01/18/22 Unknown History aripiprazole 2 mg tablet 2 mg PO DAILY 02/08/22 02/23/22 Unknown History gabapentin 300 mg capsule 600 cap PO BID 02/23/22 02/23/22 Unknown History loratadine 10 mg tablet (Claritin) 10 mg PO DAILY 02/23/22 02/23/22 Unknown History melatonin 10 mg tablet 10 mg PO BEDTIME PRN Insomnia 02/23/22 02/23/22 Unknown History meloxicam 15 mg tablet 15 mg PO DAILY 02/23/22 02/23/22 Unknown History nystatin 500,000 unit tablet 500,000 unit PO QID 02/23/22 02/23/22 Unknown History Exam Exam Date and Time: February 25, 2022723 Height,Weight and Vital Signs: Height 5 ft Weight 95.708 kg Last Vital Signs Temp 98.7 F 02/25/22 07:06 Pulse 95 02/25/22 07:06 Resp 20 02/25/22 07:06 BP 146/76 H 02/25/22 07:06 Pulse Ox 98 02/25/22 07:06 O2 Del Method 02/25/22 07:06 Pertinent Lab Results Pertinent Lab Results: Laboratory Tests 02/25/22 07:15 POC Glucose 84 Airway Mallampati Class: III TM Dist: >3cm Neck ROM: Full Heart: rrr Lungs: clear Assessment and Plan Final Anesthetic Review Family History of Problems with Anesthesia: No History of Problems with Anesthesia: No NPO: Yes ASA Class: IV Final Preanesthetic Review: No Changes in Pt Med Stat, Meds/Allgs Chart Reviewed, Consent Obtained/Reviewed and Anes Risks/Benef Reviewed Patient Risk: High Procedure Risk: Low Anesthetic Plan Anesthetic Plan: MAC: Disposition: Standard PACU
[2022-02-25] MEDS: Lactated Ringers 1,000 ML 100 ML IVCONT (07:44)
--- NOTE | 2022-02-25 07:47 | MHC.SHP ---
Pre-Procedural Eval Section A Date of Service: 02/25/22 The History & Physical has been completed within 30 days and I have reviewed it.: Yes Section B Chief Complaint: Dysphagia, unspecified Allergies: Allergies Allergy/AdvReac Type Severity Reaction Status Date / Time aspirin [ASPIRIN] Allergy Intermediate GI UPSET, Verified 02/08/22 15:52 stomach pain latex [LATEX] Allergy Intermediate HIVES Verified 02/08/22 15:52 Plan Diagnosis/Plan: Unchanged I have reviewed the history and physical and performed a pertinent physical examination on my patient. No changes have occurred unless specified. Time Spent With Patient Time: Total time managing care of this patient today ____ minutes.
--- NOTE | 2022-02-25 07:47 | W.PM.OPN ---
Operative Note Operative Note Date of Service: 02/25/22 Narrative: Procedure: Esophagogastroduodenoscopy Endoscopist: Trinh Hooker MD Indication: Dysphagia Anesthesia Provider: Dr Isidro Motley Anesthesia Type: MAC ?? EGD Procedure:?? The procedure, indications, preparation and potential complications were reviewed with the patient, who indicated understanding and gave written informed consent to proceed. A physical exam was performed. The endoscope was introduced through the mouth, and advanced to the second part of duodenum. The mucosa was carefully examined on slow withdrawal of the endoscope. The patient tolerated the procedure well. There were no immediate complications.? ? EGD Findings:? Esophagus:? Normal mucosa noted in the entire esophagus. The Z line was at 39 cm. A small hiatal hernia was noted with diaphragmatic pinch at 42 cm. Middle and lower esophagus forceps biopsies were obtained to rule out eosinophilic esophagitis. Stomach:? Normal mucosa was noted in the stomach. Retroflexion in the fundus confirmed the size and morphology of the hiatal hernia. Duodenum:? Normal mucosa was noted in the whole of the examined duodenum. Additional intervention: A Savary wire was introduced through the biopsy channel and advanced to the antrum. The endoscope was then removed. A Savary- Viviana bougie was advanced over the guidewire and the esophagus was dilated to 18 mm. Significant resistance was felt and therefore we elected to not increase the dilation to 20mm. On relook, there was no tear or heme noted. EGD Impressions:? UES narrowing (dilation) Normal esophagus (biopsy) Hiatal hernia Normal stomach Normal duodenum ?? Recommendations:?? Follow biopsy results. Our office will call or send a letter with results within 7-10 days. Empiric dilation performed as above. If the patient notes significant improvement in her symptoms, EGD with dilation can be repeated if/when her dysphagia recurs. Avoid NSAIDs. Above has been reviewed with the patient. Relevant educational hand outs were provided at discharge.
[2022-02-25 08:14] VITALS: BP 131/75; PULSE 92; RESP 20; TEMP 36.4; O2SAT 96
[2022-02-25 08:29] VITALS: BP 133/79; PULSE 92; RESP 20; TEMP 36.3; O2SAT 99
== END 2022-02-25 09:07 | disposition home or self-care (01) ==
PROVIDERS: PCP Internal Medicine; Visit Provider Internal Medicine
PROC: 0DJ08ZZ Inspection of Upper Intestinal Tract, Via Natural or Artificial Opening Endoscopic (ICD-10-PCS; CPT 43235; principal; 2022-02-25 07:30)
DX: R13.10 Dysphagia, unspecified (principal); K22.2 Esophageal obstruction; K44.9 Diaphragmatic hernia without obstruction or gangrene; K59.00 Constipation, unspecified; J44.9 Chronic obstructive pulmonary disease, unspecified; E78.5 Hyperlipidemia, unspecified; M79.7 Fibromyalgia; Q07.00 Arnold-Chiari syndrome without spina bifida or hydrocephalus; B02.29 Other postherpetic nervous system involvement; E11.9 Type 2 diabetes mellitus without complications; Z79.4 Long term (current) use of insulin; Z79.899 Other long term (current) drug therapy; Z99.89 Dependence on other enabling machines and devices; Z88.8 Allergy status to other drugs, medicaments and biological substances; Z91.040 Latex allergy status; Z86.16 Personal history of COVID-19; Z98.890 Other specified postprocedural states; Z87.891 Personal history of nicotine dependence
CPT/HCPCS: 43248; 43239; 82947; 88305

== ENCOUNTER 2022-02-28 09:54 | Emergency (ER) | payer OTHER, SELFPAY ==
--- NOTE | ~2022-02-28 | XR_ITS ---
EXAMINATION: XR CHEST CLINICAL INFORMATION: Weakness COMPARISON: Previous chest x-ray most recent November 2021 TECHNIQUE: Frontal view of the chest was obtained. FINDINGS: The lung volumes are low. The cardiac silhouette may be slightly enlarged but stable. There are increased central lung markings probably related to low lung volumes. No definite evidence of pulmonary edema or pneumonia. No pleural effusion or pneumothorax. Nonacute left posterior third rib fracture. Degenerative changes of the spine. Gastric lap band. XR/XR chest 1V IMPRESSION: Low lung volumes. No evidence for acute disease in the chest.
[2022-02-28 10:01] VITALS: BP 142/74; PULSE 86
[2022-02-28 10:12] VITALS: BP 135/77; PULSE 86; RESP 19; TEMP 36.6; O2SAT 100; BMI 42.2
--- NOTE | 2022-02-28 10:39 | ED.GENADULT ---
HPI - General Adult General Chief complaint: General Medical Stated complaint: fall, r knee pain Time Seen by Provider: 02/28/22 10:03 Source: patient, family (Daughter) and EMS Mode of arrival: EMS Limitations: no limitations History of Present Illness HPI narrative: For 71-year-old female who lives home for evaluation after a mechanical fall. Patient was trying to get out of bed with a walker and her knee gave out and fern down on her right side no head injury, no LOC, no headache. Patient is complaining of right shoulder/right hip/right knee/right foot pain. 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 Related Data Home Medications Medication Instructions Recorded Confirmed clonazepam 0.5 mg tablet 0.5 mg PO BID PRN Anxiety 02/06/20 02/23/22 duloxetine 60 mg capsule,delayed 60 mg PO DAILY 02/06/20 02/23/22 release ibuprofen 600 mg tablet 600 mg PO TID PRN Pain 02/06/20 11/11/21 insulin aspart U-100 100 unit/mL 0 sliding scale dose subcut QIDACHS 02/06/20 02/23/22 (3 mL) subcutaneous pen lisinopril 10 mg tablet 10 mg PO DAILY 02/06/20 02/23/22 omeprazole 20 mg capsule,delayed 20 mg PO DAILY 02/06/20 02/23/22 release zolpidem 10 mg tablet 10 mg PO BEDTIME 02/06/20 02/23/22 liraglutide 0.6 mg/0.1 mL (18 mg/3 1.8 mg subcut DAILY 04/21/20 02/23/22 mL) subcutaneous pen injector donepezil 5 mg tablet 5 mg PO DAILY 11/06/20 02/23/22 insulin glargine 100 unit/mL (3 54 unit subcut BEDTIME 01/05/21 02/23/22 mL) subcutaneous pen buspirone 15 mg tablet 1 tab PO BID 11/11/21 02/23/22 ipratropium bromide 21 mcg (0.03 2 spray intranasal BID 11/11/21 02/23/22 %) nasal spray ketoconazole 2 % shampoo 1 appl topical 2XW 11/11/21 11/11/21 lidocaine 4 % topical patch 1 patch topical DAILY PRN Pain 11/11/21 11/11/21 vibegron 75 mg tablet (Gemtesa) 75 mg PO DAILY 11/11/21 02/23/22 CPAP (CPAP Machine/Device) 01/18/22 Oxygen Home Use 01/18/22 aripiprazole 2 mg tablet 2 mg PO DAILY 02/08/22 02/23/22 gabapentin 300 mg capsule 600 cap PO BID 02/23/22 02/23/22 loratadine 10 mg tablet (Claritin) 10 mg PO DAILY 02/23/22 02/23/22 melatonin 10 mg tablet 10 mg PO BEDTIME PRN Insomnia 02/23/22 02/23/22 meloxicam 15 mg tablet 15 mg PO DAILY 02/23/22 02/23/22 nystatin 500,000 unit tablet 500,000 unit PO QID 02/23/22 02/23/22 Previous Rx's Medication Instructions Recorded walker #1 ea 07/12/20 budesonide-formoterol HFA 160 2 puff PO BID #10.2 grams 03/18/21 mcg-4.5 mcg/actuation aerosol inhaler tiotropium bromide 2.5 2 puff inhalation DAILY 30 days #4 03/18/21 mcg/actuation mist for inhalation grams (Spiriva Respimat) roflumilast 250 mcg tablet 250 mcg PO DAILY 30 days #30 tabs 05/07/21 (Daliresp) acetaminophen 500 mg tablet 500 mg PO Q6H PRN fever or pain 09/08/21 (Tylenol Extra Strength) #14 tabs tramadol 50 mg tablet 50 mg PO Q8H PRN pain, severe #9 09/08/21 tabs cefuroxime axetil 500 mg tablet 500 mg PO BID 7 days #6 tabs 11/17/21 lidocaine 5 % topical patch 1 patch topical DAILY 30 days #30 01/19/22 (Lidoderm) ea albuterol sulfate 90 mcg/actuation 2 puff PO QID #8.5 grams 02/04/22 aerosol inhaler Allergies Allergy/AdvReac Type Severity Reaction Status Date / Time aspirin [ASPIRIN] Allergy Intermediate GI UPSET, Verified 02/08/22 15:52 stomach pain latex [LATEX] Allergy Intermediate HIVES Verified 02/08/22 15:52 Review of Systems Review of Systems: All other systems are reviewed and are negative Constitutional: Reports as per HPI and Reports no additional constitutional complaints Eyes: Reports as per HPI and Reports no additional eye complaints Reports system reviewed and no additional complaints, except as documented Cardiovascular: Reports as per HPI and Reports no additional cardiovascular complaints Respiratory: Reports as per HPI and Reports no additional respiratory complaints Gastrointestinal: Reports as per HPI and Reports no additional gastrointestinal complaints Genitourinary: Reports no additional female genitourinary complaints Musculoskeletal: Reports no additional musculoskeletal complaints Skin/Breast: Reports system reviewed and no additional complaints, except as docu Psychiatric: Reports no additional psychiatric complaints Endocrine: Reports no additional endocrine complaints Hematologic/Lymphatic: Reports no additional hematologic/lymphatic complaints Allergic/Immunologic: Reports no additional allergic/immunologic complaints Reports system reviewed and no additional complaints, except as documented and Reports Abnormal speech present [facility] Past Medical History Medical History Acute respiratory failure Arnold-Chiari malformation Arthritis Asthma Asthma-COPD overlap syndrome Back pain Cardiomegaly Chest crackles Cough Diabetes Fibromyalgia [place] (hard of hearing) Hyperlipidemia Hypertension Morbid obesity CASSANDRA treated with BiPAP Pneumonia PONV (postoperative nausea and vomiting) Post herpetic neuralgia Sinusitis Surgical History H/O bilateral breast reduction surgery H/O brain surgery H/O colonoscopy History of esophagogastroduodenoscopy (EGD) Hx of laparoscopic gastric banding Family History Family History Mother HTN (hypertension) Breast cancer Father Primary cancer of bone marrow Social History Social History Household Members: Other Household Members Other:: granddaughter Housing: Apartment Are you a primary district manager primary care sales to a significant other at home: No Do you presently have visiting nurse or other home services: Yes ([employer]) Alcohol intake: never Patient Tobacco Use Status: Former Tobacco user Quit Date: Tobacco use type: Cigarette Years Smoked: 15 +/- Advance Directives: Yes Advance Directives on File: Yes Advance Directives Date on File: 11/11/21 Physical Exam ED Vital Signs: Vital Signs - 24 hr 02/28/22 10:12 Temperature 98 F Pulse Rate 86 Respiratory Rate 19 Blood Pressure 135/77 Pulse Oximetry 100 Oxygen Delivery Method Nasal Cannula BMI result Body Mass Index 42.2 Vital signs have been reviewed as appeared to be correct. Blood pressure normal. Heart rate normal. Respiration rate normal. Temperature normal. Oxygen saturation normal. Appearance: Alert. Oriented X3. No acute distress. Head: Normal external exam. Normocephalic. Atraumatic. No Montejo signs noted. No raccoon eyes noted Eyes: PERRLA. EOMI. Conjunctiva and sclera normal. Eyelids normal. ENT: TM's Normal. Pharynx normal. Uvula midline. Moist mucous membranes. No trismus noted. No drooling noted. No muffled voice noted. Neck: Normal inspection. Neck supple. FROM. No adenopathy. Thyroid Normal. No meningeal signs. No neck mass noted. CVS: Normal heart rate and rhythm. Heart sound normal. No murmurs noted. Pulses normal throughout. Respiratory: No respiratory distress. Painless inspiration. Breath sounds normal. No wheezes/rales/rhonchi noted. Chest nontender. No accessory muscle usage noted or decreased air movement noted. Abdomen: Soft and nontender. Bowel sounds normal in all 4 quadrants. No distention noted. No organomegaly noted. No visible injury noted. Back: No CVA tenderness. Full range of motion noted. Skin: Skin warm and dry. Normal skin color. Normal skin turgor. No rashes/lesions/lacerations noted. Extremities: Right shoulder/right hip/right knee/right foot: No swelling, no deformity, full range of motion of all joints, neurovascularly intact. Neuro: Oriented X 3. Cranial nerve exam: II-XII are grossly intact No motor deficit. No sensory deficit. Reflexes normal. Course Course Course Narrative: A mechanical fall with right-sided contusion, will start physician observation for patient placement and assessment at 11:30 waiting for PT evaluation and social services counselor. Medical Decision Making Differential Diagnosis Differential Diagnoses: The differential diagnosis associated with the presentation includes (Mechanical fall, contusion, fracture, need for placement.) Independent Interpretation I performed an independent interpretation of an: Plain X-Ray (Right shoulder/right hip/right knee/right foot x-rays: No acute fracture.) Radiology Impression Discussion of test interpretation with radiology: I discussed test interpretation with the radiologist Discharge Plan Discharge Clinical Impression: Accident due to mechanical fall without injury, Contusion Patient Disposition: Still a Patient Prescriptions: No Action lidocaine [Lidoderm] 5 % adhesive patch,medicated 1 patch topical DAILY 30 Days Qty: 30 4RF Rx Instructions: leave on most painful area for up to 12 hrs albuterol sulfate 90 mcg/actuation HFA aerosol inhaler 2 puff PO QID Qty: 8.5 11RF (DME) walker [facility] See Rx Instructions .ROUTE .MEDSUPPLY Qty: 1 0RF Rx Instructions: As directed tramadol 50 mg tablet 50 mg PO Q8H PRN (Reason: pain, severe) Qty: 9 0RF acetaminophen [Tylenol Extra Strength] 500 mg tablet 500 mg PO Q6H PRN (Reason: fever or pain) Qty: 14 0RF ketoconazole 2 % shampoo 1 appl topical 2XW ipratropium bromide 21 mcg (0.03 %) spray,non-aerosol 2 spray intranasal BID buspirone 15 mg tablet 1 tab PO BID Gemtesa 75 mg tablet 75 mg PO DAILY lidocaine 4 % Adhesive Patch,Medicated 1 patch TOPICAL DAILY PRN (Reason: Pain) cefuroxime axetil 500 mg tablet 500 mg PO BID 7 Days Qty: 6 0RF nystatin 500,000 unit tablet 500,000 unit PO QID gabapentin 300 mg capsule 600 cap PO BID meloxicam 15 mg Tablet 15 mg PO DAILY loratadine [Claritin] 10 mg Tablet 10 mg PO DAILY melatonin 10 mg Tablet 10 mg PO BEDTIME PRN (Reason: Insomnia) zolpidem 10 mg tablet 10 mg PO BEDTIME duloxetine 60 mg capsule,delayed release(DR/EC) 60 mg PO DAILY ibuprofen 600 mg tablet 600 mg PO TID PRN (Reason: Pain) omeprazole 20 mg capsule,delayed release(DR/EC) 20 mg PO DAILY lisinopril 10 mg tablet 10 mg PO DAILY clonazepam 0.5 mg tablet 0.5 mg PO BID PRN (Reason: Anxiety) insulin aspart U-100 100 unit/mL (3 mL) insulin pen 0 sliding scale dose subcut QIDACHS Protocol: Insulin Correction Scale Less than or equal to 110 ---- Give (units): 0 111 to 150 Give (units): 0 151 to 200 Give (units): 2 201 to 250 Give (units): 4 251 to 300 Give (units): 6 301 to 350 Give (units): 8 Greater than 350 Give (units): 10 Call MD if Blood Glucose > : 350 liraglutide 0.6 mg/0.1 mL (18 mg/3 mL) pen injector 1.8 mg subcut DAILY insulin glargine 100 unit/mL (3 mL) insulin pen 54 unit subcut BEDTIME donepezil 5 mg tablet 5 mg PO DAILY Spiriva Respimat 2.5 mcg/actuation mist 2 puff inhalation DAILY 30 Days Qty: 4 11RF budesonide-formoterol 160-4.5 mcg/actuation HFA aerosol inhaler 2 puff PO BID Qty: 10.2 11RF (DME) CPAP Machine/Device Device See Rx Instructions .ROUTE Rx Instructions: As directed (DME) Oxygen Home Use Kit See Rx Instructions .ROUTE Rx Instructions: As directed aripiprazole 2 mg tablet 2 mg PO DAILY Daliresp 250 mcg tablet 250 mcg PO DAILY 30 Days Qty: 30 11RF
[2022-02-28 11:53] LABS: COVID-19 Test Negative (Negative); IDNOW Serial# 16C4AD1C
[2022-02-28 12:52] VITALS: BP 135/77; PULSE 86; O2SAT 100
--- NOTE | 2022-02-28 13:38 | MHC.CM.ED ---
Received case management consult from Dr Burnham. Patient came came to the ER due to falls. Work up essentially negative. Physical therapy eval completed. Short term rehab is recommended. Met with patient and daughter, Irbian. Patient lives with granddaughter, ambulates with a walker and has ITALIAN TEACHER hours through [facility]. PCP verified. Copy of HCP verified to be on file. Patient received 2 Pfizer vaccines and 1 Moderna booster. List of facilities contracted with patient's insurance provided from [employer]. Facility choices: 1)[facility] 2)[facility] 3) [facility]. Referral made via [facility]. Continue to monitor for d/c needs.
--- NOTE | 2022-02-28 15:42 | PC.NURSE ---
Pt resting on stretcher at this time. Daughter was at bedside, this RN updated daughter on plan of care and updated pts med list. Pt was repositioned in bed for comfort and given a warm blanket. Pt reports 9/10 pain on right side related to fall
[2022-02-28 16:01] VITALS: BP 117/60; PULSE 98; RESP 18; TEMP 36.7; O2SAT 98
--- NOTE | 2022-02-28 16:30 | PC.NURSE ---
Pt transferred into hospital bed for comfort
--- NOTE | 2022-02-28 16:34 | PHA.MEDREC ---
Pharmacy Consult ? Medication Reconciliation Pharmacy has completed the medication reconciliation. Reviewed med rec done by nursing, confirmed with nurse that she spoke directly to the patient.
[2022-02-28] MEDS: DULoxetine HCl 60 MG CAPSULE.DR PO (17:59)
[2022-02-28] MEDS: Nystatin Oral Susp 500,000 UNIT/5 ML ORAL.SUSP 500000 UNIT PO ×2 (17:59→20:57)
[2022-02-28] MEDS: lisinopriL 10 MG TABLET PO (17:59)
[2022-02-28] MEDS: Loratadine 10 MG TABLET PO (17:59)
[2022-02-28] MEDS: Ketoconazole 2 % Shampoo 120 ML BTL 1 APPL TOPICAL (18:14)
--- NOTE | 2022-02-28 20:15 | PC.NURSE ---
Pt up in bed and eating dinner. Pt has been up to the commode three times since 1500
[2022-02-28 20:24] VITALS: BP 113/60; PULSE 101; RESP 20; TEMP 36.6; O2SAT 95
[2022-02-28] MEDS: busPIRone HCl 5 MG TABLET 15 MG PO (20:57)
[2022-02-28] MEDS: Gabapentin 400 MG CAPSULE 1200 MG PO (20:57)
[2022-02-28] MEDS: Melatonin 3 MG TABLET 9 MG PO (20:57)
[2022-02-28] MEDS: Zolpidem Tartrate 5 MG TABLET PO (20:58)
[2022-02-28] MEDS: Insulin Lispro 100 UNIT/ML 3 ML VIAL SUBCUT (20:58)
[2022-02-28] MEDS: Insulin Glargine,Hum.rec.anlog 100 UNIT/ML 10 ML VIAL 54 UNIT SUBCUT (20:58)
[2022-02-28] MEDS: NaPROXEN 500 MG TABLET PO (20:58)
[2022-02-28] MEDS: Donepezil HCl 5 MG TABLET PO (20:58)
--- NOTE | 2022-02-28 21:52 | PC.NURSE ---
Pt night medications administered per MAR, pt reports having increased knee and foot pain and feeling increased weakness. This RN placed purewick to reduce the risk for falls. Purewick is suctioning properly
--- NOTE | 2022-03-01 03:28 | PC.NURSE ---
Pt sleeping at this time respiration regular.
[2022-03-01 06:00] VITALS: BP 115/70; PULSE 99; RESP 20; TEMP 36.7; O2SAT 96
[2022-03-01 07:10] VITALS: BP 128/73; PULSE 85; RESP 16; TEMP 36.6; O2SAT 98
[2022-03-01 07:21] LABS: Glucose, Whole Blood 262 mg/dL (60-115)
[2022-03-01] MEDS: NaPROXEN 500 MG TABLET PO (07:40)
[2022-03-01] MEDS: Insulin Lispro 100 UNIT/ML 3 ML VIAL SUBCUT (07:40)
[2022-03-01] MEDS: Loratadine 10 MG TABLET PO (07:40)
[2022-03-01] MEDS: lisinopriL 10 MG TABLET PO (07:40)
[2022-03-01] MEDS: busPIRone HCl 5 MG TABLET 15 MG PO (07:41)
[2022-03-01] MEDS: DULoxetine HCl 60 MG CAPSULE.DR PO (07:41)
[2022-03-01 09:02] LABS: MANUAL DIFF FLAG NO
[2022-03-01 09:06] LABS: Basophils Percent Auto 0.3 % (0-2); Eosinophils Absolute Auto 0.1 X10*3/uL (0.0-0.4); Hematocrit 35.7 % (37.0-47.0); Hemoglobin 11.2 g/dl (12.0-16.0); Imm Gran Abs Auto 0.04 X10*3/uL (0.00-0.03); Imm Gran Pct Auto 0.6 % (0.0-0.4); Lymphocytes Absolute Auto 3.1 X10*3/uL (1.2-4.9); Lymphocytes Percent Auto 42.7 % (20-40); Mean Corpuscular HGB Conc 31.4 g/dl (31.0-35.0); Mean Corpuscular Volume 92.5 fL (80.0-98.0); Mean Platelet Volume 8.8 fL (9.4-12.3); Monocytes Absolute Auto 0.5 X10*3/uL (0.1-1.2); Monocytes Percent Auto 6.4 % (2-11); Neutrophils Absolute Auto 3.4 x10*3/uL (2.0-8.3); Platelet Count 281 X10*3/uL (160-400); Red Blood Count 3.86 X10*6/uL (4.20-5.50); Red Cell Distribution Width 16.2 % (11.0-16.0); White Blood Count 7.2 X10*3/uL (4.8-10.8)
[2022-03-01 09:17] LABS: Alanine Aminotransferase 20 U/L (0-31); Albumin Level 3.1 g/dL (3.5-5.0); Alkaline Phosphatase 72 U/L (39-117); Anion Gap 11 (12-20); Aspartate Amino Transferase 15 U/L (5-31); Bilirubin Total 0.3 mg/dL (0.0-1.0); Blood Urea Nitrogen 18 mg/dL (9-16); Calcium 9.3 mg/dL (8.4-10.2); Carbon Dioxide 29 mmol/L (22-29); Chloride 101 mmol/L (96-108); Creatinine Clr Calc Pharmacy 60.5; Estimated Glomerular Filt Rate > 60; Glucose Random 334 mg/dL (60-115); Potassium 4.9 mmol/L (3.3-5.1); Sodium 136 mmol/L (135-145); Total Protein 5.3 g/dL (6.5-8.0)
[2022-03-01 09:19] LABS: IDNOW Serial# 16C4AD1C; Influenza A Negative (Negative); Influenza B2 Negative (Negative)
[2022-03-01 11:34] LABS: Appearance Urine Clear; Color Urine Yellow; Glucose Urine UA >=1000 mg/dL (Negative); Leukocyte Esterase Urine Negative (Negative); Nitrite Urine Negative (Negative); PH 6.5 (5.0-9.0); UMIC TRIGGER UACC YES; Urine Blood Negative (Negative); Urine Ketones Negative (Negative); Urine Protein Negative (Neg-Trace)
[2022-03-01 11:37] LABS: Bacteria Urine None Seen (None Seen); Hyaline Casts Urine 0-2 /LPF (0-2); RBC Urine 0-2 /HPF (0-2); Squamous Epithelial Cell Urine 0-2 /HPF (0-2); WBC Urine 0-5 /HPF (0-5)
--- NOTE | 2022-03-01 11:46 | PC.NURSE ---
Pt was given a complete bed bath with 2 extensive assist. We replaced the Purewick with a new one. Pt was repositioned. Pt tolerated activity well.
--- NOTE | 2022-03-01 12:54 | MHC.CM.ED ---
[facility] is able to offer a bed. Patient, daughter Irbian, Teresa CAREY and Mabel BOUDREAUX aware. Elbert SAEZ booked for 12pm. Med nec with chart. Continue to monitor for d/c needs.
== END 2022-03-01 11:57 | disposition skilled nursing facility (03) ==
PROVIDERS: Nurse Practitioner Family; Emergency Provider Emergency Medicine; PCP Internal Medicine
DX: S40.011A Contusion of right shoulder, initial encounter (principal); S70.01XA Contusion of right hip, initial encounter; S80.01XA Contusion of right knee, initial encounter; S90.31XA Contusion of right foot, initial encounter; W17.89XA Other fall from one level to another, initial encounter; R29.6 Repeated falls; Z91.81 History of falling; I10 Essential (primary) hypertension; E78.5 Hyperlipidemia, unspecified; E11.9 Type 2 diabetes mellitus without complications; E66.9 Obesity, unspecified; Z68.41 Body mass index [BMI] 40.0-44.9, adult; Z87.891 Personal history of nicotine dependence; Z79.899 Other long term (current) drug therapy; Z79.4 Long term (current) use of insulin; Y93.89 Activity, other specified; Y92.032 Bedroom in apartment as the place of occurrence of the external cause; Y99.9 Unspecified external cause status
CPT/HCPCS: 71045; 73030; 73502; 73560; 73620; 80053; 81001; 82947; 85025; 87502; 87635; 97161; 99284; 99285

== ENCOUNTER 2022-03-02 05:56 | Outpatient (REF) | payer OTHER, SELFPAY ==
[2022-03-02 05:59] LABS: MANUAL DIFF FLAG NO
[2022-03-02 06:26] LABS: Alanine Aminotransferase 19 U/L (0-31); Albumin Level 3.7 g/dL (3.5-5.0); Alkaline Phosphatase 77 U/L (39-117); Anion Gap 13 (12-20); Aspartate Amino Transferase 20 U/L (5-31); Basophils Percent Auto 0.4 % (0-2); Bilirubin Total 0.4 mg/dL (0.0-1.0); Blood Urea Nitrogen 15 mg/dL (9-16); Carbon Dioxide 29 mmol/L (22-29); Chloride 102 mmol/L (96-108); Eosinophils Absolute Auto 0.1 X10*3/uL (0.0-0.4); Estimated Glomerular Filt Rate > 60; Glucose Random 193 mg/dL (60-115); Hematocrit 39.3 % (37.0-47.0); Hemoglobin 12.6 g/dl (12.0-16.0); Imm Gran Abs Auto 0.17 X10*3/uL (0.00-0.03); Imm Gran Pct Auto 1.7 % (0.0-0.4); Lymphocytes Absolute Auto 3.7 X10*3/uL (1.2-4.9); Lymphocytes Percent Auto 37.4 % (20-40); Mean Corpuscular HGB Conc 32.1 g/dl (31.0-35.0); Mean Corpuscular Hemoglobin 29.2 pg (27.0-33.0); Mean Platelet Volume 9.4 fL (9.4-12.3); Monocytes Absolute Auto 0.5 X10*3/uL (0.1-1.2); Monocytes Percent Auto 5.4 % (2-11); Neutrophils Absolute Auto 5.4 x10*3/uL (2.0-8.3); Neutrophils Percent Auto 54.1 % (45-73); Platelet Count 354 X10*3/uL (160-400); Potassium 4.7 mmol/L (3.3-5.1); Red Blood Count 4.32 X10*6/uL (4.20-5.50); Red Cell Distribution Width 15.9 % (11.0-16.0); Sodium 139 mmol/L (135-145); Total Protein 6.3 g/dL (6.5-8.0)
== END 2022-03-02 05:57 | disposition home or self-care (01) ==
LOC: HO.MMNH1L 05:56
PROVIDERS: Visit Provider Family Medicine
DX: Z02.2 Encounter for examination for admission to residential institution (principal)
CPT/HCPCS: 36415; 80053; 85025

== ENCOUNTER → 2022-03-11 13:02 | Outpatient (BNVA) | payer OTHER, SELFPAY | PROVIDERS: PCP Internal Medicine; Visit Provider Internal Medicine | DX: R13.10 Dysphagia, unspecified (principal); K22.2 Esophageal obstruction; R14.0 Abdominal distension (gaseous); E11.9 Type 2 diabetes mellitus without complications | CPT/HCPCS: 99212 ==

== ENCOUNTER 2022-05-16 09:31 | Outpatient (REF) | payer OTHER, SELFPAY ==
--- NOTE | ~2022-05-16 | FL_ITS ---
EXAMINATION: XR BARIUM SWALLOW CLINICAL INFORMATION: Subtle reflux. COMPARISON: None TECHNIQUE: Routine modified barium swallow was performed lateral projection following oral administration of various consistencies of liquid and solid barium. FINDINGS: Following oral administration of thin, thick barium, puree and solid food there is normal probation of bolus from the oral cavity through the pharynx and esophagus without any evidence of obstruction, narrowing or stricture. There is no laryngeal penetration or aspiration. The soft tissues are normal. FLUOROSCOPY TIME: 0.7 minutes DOSE AREA PRODUCT: 1.301 uGy-m2 (microgray-meter squared) FL/FL barium swallow modified IMPRESSION: Unremarkable modified barium swallow exam. No laryngeal penetration or aspiration seen.
--- NOTE | 2022-05-16 14:25 | MHC.SL.MBSTD ---
Referring provider: Dr. Zafar Carson Reason for Referral: Esophageal reflux, chronic cough Type of Treatment: 64969 Modified Barium Swallow Study Date of Plan of Treatment: 05/16/22 Onset of Symptoms/Illness: 05/13/22 Date Treatment Started: 05/16/22 Medical Diagnosis: Esophageal reflux (K21.9) Speech & Language Primary Diagnosis:R13.10 Dysphagia Speech & Language Secondary Diagnosis: R13.14 Pharyngoesophageal Phase Dysphagia Comments: Pt has chronic reflux and recent history of EGD with dilation in March of this year. She continues to have complaints of difficulty swallowing, but endorses that her symptoms are, a little bit better . She additionally has had lung infections attributable to bronchitis, and a Covid infection in February of last year. Medical History: Acid Reflux Bronchitis Diabetes Comment: Medication List: Recent Hospitalizations: Respiratory Needs: Room Air Patient Orientation: Alert & Oriented x 4 Areas of Difficulties: Not Applicable Quality of Life: Goal of Speech-Language Therapy: Prognosis for Improvment: Good Dysphagia Related: Esophageal Dysphagia Comments: Risk for Aspiration: History of Pneumonia Current Dietary Consistencies: Regular Current Liquid Intake Consistencies: Thin Current Medication Administration Method: Whole with Liquid Voice Phonatory-based Quality: Normal Voice Pitch: Normal Voice Loudness: Normal Social History: Employment Status: What is the highest level of education have you completed?: Living Situation: Assistive Devices in use: Wheelchair Comments: Past Speech Language Pathology History: Have You Seen Other Therapies: None Other: Assessment Oral Motor Exam: Oral Motor Exam Unremarkable Facial Symmetry: Asymmetrical Facial Movement: Controlled Oral-Facial Facial Miscellaneous Observations: Mouth Occlusion: Oral-Facial Teeth Characteristics: Oral-Facial Teeth Miscellaneous Observation: Oral-Facial Lip Pucker Description: Oral-Facial Smile (Lips) Description: Oral-Facial Puff Cheeks Description: Oral-Facial Lip Miscellaneous Comment: Tongue Size: Tongue Frenum Length: Tongue Excursion Description: Normal Tongue Range of Movement Description: Normal Tongue Speed of Movement Description: Normal Tongue Strength of Movement (against opposing pressure): Normal Tongue Movement Characteristics: Normal/Absent Tongue Movement Miscellaneous Observation: ? Is patient able to manage secretions?: ? Is patient able to produce volitional cough?: Clinicial Observations: Modified Barium Swallow Study: Oral Phase: Impaired Liquid Via Spoon ? Labial Seal: Intact ? A/P Transit: Intact ? Lingual Movement: Intact ? Rotary Mastication: Intact ? Premature Spillage: ? Oral Residue: Intact Thin Liquid via Cup ? Labial Seal: ? A/P Transit: ? Lingual Movement: ? Rotary Mastication: ? Premature Spillage: ? Oral Residue: Thin Liquid via Straw ? Labial Seal: ? A/P Transit: ? Lingual Movement: ? Rotary Mastication: ? Premature Spillage: ? Oral Residue: Henry via Spoon ? Labial Seal: ? A/P Transit: ? Lingual Movement: ? Rotary Mastication: ? Premature Spillage: ? Oral Residue: Henry via Cup ? Labial Seal: ? A/P Transit: ? Lingual Movement: ? Rotary Mastication: ? Premature Spillage: ? Oral Residue: Henry via Straw ? Labial Seal: ? A/P Transit: ? Lingual Movement: ? Rotary Mastication: ? Premature Spillage: ? Oral Residue: Honey via Spoon ? Labial Seal: ? A/P Transit: ? Lingual Movement: ? Rotary Mastication: ? Premature Spillage: ? Oral Residue: Honey via Cup ? Labial Seal: ? A/P Transit: ? Lingual Movement: ? Rotary Mastication: ? Premature Spillage: ? Oral Residue: Honey via Spoon ? Labial Seal: ? A/P Transit: ? Lingual Movement: ? Rotary Mastication: ? Premature Spillage: ? Oral Residue: Pudding Thick via Straw ? Labial Seal: ? A/P Transit: ? Lingual Movement: ? Rotary Mastication: ? Premature Spillage: ? Oral Residue: Pudding Thick via Cup ? Labial Seal: ? A/P Transit: ? Lingual Movement: ? Rotary Mastication: ? Premature Spillage: ? Oral Residue: Pudding Thick via Spoon ? Labial Seal: ? A/P Transit: ? Lingual Movement: ? Rotary Mastication: ? Premature Spillage: ? Oral Residue: Pureed Food ? Labial Seal: ? A/P Transit: ? Lingual Movement: ? Rotary Mastication: ? Premature Spillage: ? Oral Residue: Ground Food ? Labial Seal: ? A/P Transit: ? Lingual Movement: ? Rotary Mastication: ? Premature Spillage: ? Oral Residue: Chopped/Advanced ? Labial Seal: ? A/P Transit: ? Lingual Movement: ? Rotary Mastication: ? Premature Spillage: ? Oral Residue: Regular/Unaltered ? Labial Seal: ? A/P Transit: ? Lingual Movement: ? Rotary Mastication: ? Premature Spillage: ? Oral Residue: Barium Tablet ? Labial Seal: ? A/P Transit: ? Lingual Movement: ? Rotary Mastication: ? Premature Spillage: ? Oral Residue: Pharyngeal Phase: Intact Thin Liquid via Spoon ? Velopharyngeal Closure: Intact ? Tongue Base Retraction: Intact ? Laryngeal Excursion: Intact ? Epiglottal Deflection: Intact ? Pharyngeal Peristalsis: Intact ? Valleculae Clearing: Intact ? Pyriform Clearing: Intact ? UES Opening: Intact ? Penetration: Intact ? Aspiration: Intact Thin Liquid via Cup ? Velopharyngeal Closure: ? Tongue Base Retraction: ? Laryngeal Excursion: ? Epiglottal Deflection: ? Pharyngeal Peristalsis: ? Valleculae Clearing: ? Pyriform Clearing: ? UES Opening: ? Penetration: ? Aspiration: Thin Liquid va Straw ? Velopharyngeal Closure: ? Tongue Base Retraction: ? Laryngeal Excursion: ? Epiglottal Deflection: ? Pharyngeal Peristalsis: ? Valleculae Clearing: ? Pyriform Clearing: ? UES Opening: ? Penetration: ? Aspiration: Henry Thick via Spoon ? Velopharyngeal Closure: ? Tongue Base Retraction: ? Laryngeal Excursion: ? Epiglottal Deflection: ? Pharyngeal Peristalsis: ? Valleculae Clearing: ? Pyriform Clearing: ? UES Opening: ? Penetration: ? Aspiration: Henry Thick via Cup ? Velopharyngeal Closure: ? Tongue Base Retraction: ? Laryngeal Excursion: ? Epiglottal Deflection: ? Pharyngeal Peristalsis: ? Valleculae Clearing: ? Pyriform Clearing: ? UES Opening: ? Penetration: ? Aspiration: Henry Thick via Straw ? Velopharyngeal Closure: ? Tongue Base Retraction: ? Laryngeal Excursion: ? Epiglottal Deflection: ? Pharyngeal Peristalsis: ? Valleculae Clearing: ? Pyriform Clearing: ? UES Opening: ? Penetration: ? Aspiration: Honey Thick via Spoon ? Velopharyngeal Closure: ? Tongue Base Retraction: ? Laryngeal Excursion: ? Epiglottal Deflection: ? Pharyngeal Peristalsis: ? Valleculae Clearing: ? Pyriform Clearing: ? UES Opening: ? Penetration: ? Aspiration: Honey Thick via Cup ? Velopharyngeal Closure: ? Tongue Base Retraction: ? Laryngeal Excursion: ? Epiglottal Deflection: ? Pharyngeal Peristalsis: ? Valleculae Clearing: ? Pyriform Clearing: ? UES Opening: ? Penetration: ? Aspiration: Honey Thick via Straw ? Velopharyngeal Closure: ? Tongue Base Retraction: ? Laryngeal Excursion: ? Epiglottal Deflection: ? Pharyngeal Peristalsis: ? Valleculae Clearing: ? Pyriform Clearing: ? UES Opening: ? Penetration: ? Aspiration: Pudding Thick via Spoon ? Velopharyngeal Closure: ? Tongue Base Retraction: ? Laryngeal Excursion: ? Epiglottal Deflection: ? Pharyngeal Peristalsis: ? Valleculae Clearing: ? Pyriform Clearing: ? UES Opening: ? Penetration: ? Aspiration: Pudding Thick via Cup ? Velopharyngeal Closure: ? Tongue Base Retraction: ? Laryngeal Excursion: ? Epiglottal Deflection: ? Pharyngeal Peristalsis: ? Valleculae Clearing: ? Pyriform Clearing: ? UES Opening: ? Penetration: ? Aspiration: Pureed Food ? Velopharyngeal Closure: ? Tongue Base Retraction: ? Laryngeal Excursion: ? Epiglottal Deflection: ? Pharyngeal Peristalsis: ? Valleculae Clearing: ? Pyriform Clearing: ? UES Opening: ? Penetration: ? Aspiration: Ground Food ? Velopharyngeal Closure: ? Tongue Base Retraction: ? Laryngeal Excursion: ? Epiglottal Deflection: ? Pharyngeal Peristalsis: ? Valleculae Clearing: ? Pyriform Clearing: ? UES Opening: ? Penetration: ? Aspiration: Chopped/Advanced Food ? Velopharyngeal Closure: ? Tongue Base Retraction: ? Laryngeal Excursion: ? Epiglottal Deflection: ? Pharyngeal Peristalsis: ? Valleculae Clearing: ? Pyriform Clearing: ? UES Opening: ? Penetration: ? Aspiration: Regular ? Velopharyngeal Closure: ? Tongue Base Retraction: ? Laryngeal Excursion: ? Epiglottal Deflection: ? Pharyngeal Peristalsis: ? Valleculae Clearing: ? Pyriform Clearing: ? UES Opening: ? Penetration: ? Aspiration: Barium Tablet ? Velopharyngeal Closure: ? Tongue Base Retraction: ? Laryngeal Excursion: ? Epiglottal Deflection: ? Pharyngeal Peristalsis: ? Valleculae Clearing: ? Pyriform Clearing: ? UES Opening: ? Penetration: ? Aspiration: Impressions and Recommendations Summary: Pt was provided Thin Liquid, Puree, and Regular Solids coating in Barium Contrast. The study was grossly unremarkable. She did exhibit more difficulty with a Regular Solid. She reports a recent dental procedure that is making things difficult to chew. I spoke with the patient about this and advised that she make accommodations to her solids to make them softer and easier to chew. This would also help to alleviate her symptoms of esophageal distress and make the food easer to pass to her stomach. There were no examples of remaining contrast in the pharyngeal space that would contribute to her sensation of items being stuck. Impact on Daily Function/Activity Limitations: Daily Activities: Interpersonal Interactions: Education: Employment: Community: Prognosis for Improvement: Good Comment: Recommendation for Speech Therapy: Text Comment: Deferred back to her referring provided. 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
--- NOTE | 2022-05-16 14:28 | MHC.SL.MBSTD ---
Referring provider: Dr. Zafar Carson Reason for Referral: Esophageal reflux, chronic cough Type of Treatment: 29954 Modified Barium Swallow Study Date of Plan of Treatment: 05/16/22 Onset of Symptoms/Illness: 05/13/22 Date Treatment Started: 05/16/22 Medical Diagnosis: Esophageal reflux (K21.9) Speech & Language Primary Diagnosis:R13.10 Dysphagia Speech & Language Secondary Diagnosis: R13.14 Pharyngoesophageal Phase Dysphagia Comments: Pt has chronic reflux and recent history of EGD with dilation in March of this year. She continues to have complaints of difficulty swallowing, but endorses that her symptoms are, a little bit better . She additionally has had lung infections attributable to bronchitis, and a Covid infection in February of last year. Medical History: Acid Reflux Bronchitis Diabetes Respiratory Needs: Room Air Patient Orientation: Alert & Oriented x 4 Areas of Difficulties: Dysphagia Prognosis for Improvment: Good Dysphagia Related: Esophageal Dysphagia Comments: Risk for Aspiration: History of Pneumonia Current Dietary Consistencies: Regular Current Liquid Intake Consistencies: Thin Current Medication Administration Method: Whole with Liquid Voice Phonatory-based Quality: Normal Voice Pitch: Normal Voice Loudness: Normal Social History: Assistive Devices in use: Wheelchair Comments: Have You Seen Other Therapies: None Assessment Oral Motor Exam: Oral Motor Exam Unremarkable Facial Symmetry: Asymmetrical Facial Movement: Controlled Tongue Size: Tongue Frenum Length: Tongue Excursion Description: Normal Tongue Range of Movement Description: Normal Tongue Speed of Movement Description: Normal Tongue Strength of Movement (against opposing pressure): Normal Tongue Movement Characteristics: Normal/Absent Modified Barium Swallow Study: Oral Phase: Impaired Liquid Via Spoon ? Labial Seal: Intact ? A/P Transit: Intact ? Lingual Movement: Intact ? Rotary Mastication: Intact ? Oral Residue: Intact Thin Liquid via Cup ? Labial Seal: Intact ? A/P Transit: Intact ? Lingual Movement: Intact ? Rotary Mastication: Intact ? Premature Spillage: Intact ? Oral Residue: Intact Pureed Food ? Labial Seal: Intact ? A/P Transit: Intact ? Lingual Movement:Intact ? Rotary Mastication:Intact ? Premature Spillage: Intact: ? Oral Residue: Intact Regular/Unaltered ? Labial Seal: Intact ? A/P Transit: Intact ? Lingual Movement: Intact ? Rotary Mastication: Intact ? Premature Spillage: Intact ? Oral Residue: Intact Pharyngeal Phase: Intact Thin Liquid via Spoon ? Velopharyngeal Closure: Intact ? Tongue Base Retraction: Intact ? Laryngeal Excursion: Intact ? Epiglottal Deflection: Intact ? Pharyngeal Peristalsis: Intact ? Valleculae Clearing: Intact ? Pyriform Clearing: Intact ? UES Opening: Intact ? Penetration: Intact ? Aspiration: Intact Thin Liquid via Cup ? Velopharyngeal Closure: Intact ? Tongue Base Retraction: Intact ? Laryngeal Excursion: Intact ? Epiglottal Deflection: Intact ? Pharyngeal Peristalsis: Intact ? Valleculae Clearing: Intact ? Pyriform Clearing: Intact ? UES Opening: Intact ? Penetration: Intact ? Aspiration: Intact Pureed Food ? Velopharyngeal Closure: Intact ? Tongue Base Retraction: Intact ? Laryngeal Excursion: Intact ? Epiglottal Deflection: Intact ? Pharyngeal Peristalsis: Intact ? Valleculae Clearing: Intact ? Pyriform Clearing:Intact ? UES Opening: Intact ? Penetration: Intact ? Aspiration: Intact Regular ? Velopharyngeal Closure: Intact ? Tongue Base Retraction: Intact ? Laryngeal Excursion: Intact ? Epiglottal Deflection: Intact ? Pharyngeal Peristalsis: Intact ? Valleculae Clearing: Intact ? Pyriform Clearing: Intact ? UES Opening: Intact ? Penetration: Intact ? Aspiration: Intact Impressions and Recommendations Summary: Pt was provided Thin Liquid, Puree, and Regular Solids coating in Barium Contrast. The study was grossly unremarkable. She did exhibit more difficulty with a Regular Solid. She reports a recent dental procedure that is making things difficult to chew. I spoke with the patient about this and advised that she make accommodations to her solids to make them softer and easier to chew. This would also help to alleviate her symptoms of esophageal distress and make the food easer to pass to her stomach. There were no examples of remaining contrast in the pharyngeal space that would contribute to her sensation of items being stuck. Prognosis for Improvement: Good Comment: Recommendation for Speech Therapy: Text Comment: Deferred back to her referring provider. Patient Education Completed: Patient/Caregiver Education: Described Results of Evaluation Patient expressed understanding of evaluation Family/Caregivers expressed understanding of results Family/Caregivers expressed agreement with goals and treatment plan Comment: Comments/Barriers to Learning: Boilermaking Supervisor Clinican/Clinical Fellow: No Supervisory Statement: N/A Speech Language Pathologist: Cash Magana M.A., [facility]-DESIGN TEACHER
== END 2022-05-16 09:32 | disposition home or self-care (01) ==
LOC: HO.XRAY 09:31
PROVIDERS: PCP Internal Medicine; Visit Provider Internal Medicine
DX: R05.3 Chronic cough (principal); K21.9 Gastro-esophageal reflux disease without esophagitis
CPT/HCPCS: 74230; 92611

== ENCOUNTER 2022-05-27 10:11 | Emergency (ER) | payer OTHER, SELFPAY ==
--- NOTE | ~2022-05-27 | XR_ITS ---
EXAMINATION: XR CHEST CLINICAL INFORMATION: Shortness of breath. COMPARISON: 03/01/2022 chest radiograph. TECHNIQUE: 2 views of the chest were obtained. FINDINGS: Penetration is suboptimal. There are increased pulmonary vascular markings. The heart is mildly enlarged. The mediastinal structures are unremarkable. XR/XR chest 2V IMPRESSION: Mild prominence of the pulmonary vasculature and chronic silhouette may be secondary to low lung volumes, but mild congestion cannot be excluded.
[2022-05-27 10:21] VITALS: BP 150/69; BP 170/90; PULSE 76; PULSE 88; RESP 18; TEMP 36.6; O2SAT 96; O2SAT 98; BMI 39.0
--- OUTSIDE RECORDS SUMMARY | 2022-05-27 10:36 | XMS_ITS | Continuity of Care Document ---
Author Name Unknown Organization [facility] ter Address [address] [place] [id number] Care Team Providers Care Design Printer Balloon Name Role Phone Rito Irving MD Primary Care Physician Encounter [facility] Date(s): 08/09/19 - 09/08/[address] [address]- [facility] Attending Physician: AdmJr chowdhury Admitting Physician: AdmtrJr Referring Physician: [id number] Allergies, Adverse Reactions, Alerts Substance Reaction Severity Status aspirin upset stomach Active Latex rash Active Immunizations Given and Recorded Vaccine Date Status Refusal Reason influ virus vac, H1N1, inactive(oldterm) 03/05/09 Given Influenza Virus Vaccine (oldterm) 1 01/14/06 Given Pneumococcal Vaccine (oldterm) 2, 3 11/18/04 Given 1Admin Note: pt states she got the Influenza vaccine this fall at pcp 2Result Comment: pt given information about pneumovax, vaccine requested given right arm 3Admin Note: pt given record of vaccine Medications AccuChek Fast Clix Lancets AccuChek Fast Clix Lancets, See Instructions, # 150 each, Refills 11, Tot. Refills 11, Maintenance,test blood sugars 4x daily as instructed E11.65, 10/04/16 9:27:41, Compound Start Date: 10/04/16 Status: Ordered Alcohol Wipes See Instructions, # 1 box, Refills 0, Tot. Refills 0, Maintenance, checks blood sugars 4X/ day, 12/04/15 13:54:43, Compound Start Date: 12/04/15 Status: Ordered atorvastatin 40 mg oral tablet 1 tablet = 40 mg, By Mouth, Daily, # 30 tablet, 0 Refills, Maintenance, 04/30/13 15:30:39, Tablet Start Date: 04/30/13 Status: Ordered Basaglar KwikPen 100 units/mL subcutaneous solution = 50 units, Subcutaneous Infusion, Daily at bedtime, # 15 mL, 11 Refills, Maintenance, 12/04/18 15:45:55 EDT, e11.65 Start Date: 12/04/18 Status: Ordered Clonazepam 1, mg, By Mouth, 2 times a day, 0, 0, 05/16/07 1:47:09, Print JOE Number, [id number], Constant Indicator Start Date: 05/16/07 Status: Ordered Cymbalta Capsule = 150 mg, By Mouth, 2 times a day, 0 Refills, Maintenance, 04/30/13 15:22:03 Start Date: 04/30/13 Status: Ordered Diflucan 150 mg oral tablet 1 tablet = 150 mg, By Mouth, Once, 0 Refills, Maintenance, 01/14/15 14:00:23 Start Date: 01/14/15 Status: Ordered Flonase 50 mcg/inh nasal spray 1 sprays, Daily, 0 Refills, Maintenance, 01/14/15 14:01:06 Start Date: 01/14/15 Status: Ordered FREE STYLE FREEDOM LITE GLUCOMETER FREE STYLE FREEDOM LITE GLUCOMETER, See Instructions, # 1 each, Refills 1, Tot. Refills 1, Maintenance, TO TEST GLUCOSE VALUES IN TYPE 2 DIABETES., 12/19/18 16:12:22 EDT, E11.65, Compound Start Date: 12/19/18 Status: Ordered Freestyle freedom lite lancing device Freestyle freedom lite lancing device, See Instructions, # 1 each, Refills 0, Tot. Refills 0, Maintenance, pt to check blood sugar 3x daily as directed for dx of E11.65, 11/16/18 10:54:18 EDT, Compound Start Date: 11/16/18 Status: Ordered Freestyle Lite Monitor See Instructions, # 1 each, Refills 0, Tot. Refills 0, Maintenance, She tests 4x a day., 10/02/18 16:52:30 EDT, Compound Start Date: 10/02/18 Status: Ordered Freestyle Lite Test Strips See Instructions, # 300 each, Refills 1, Tot. Refills 1, Maintenance, 4x a day testing. 90 day supply, 07/02/18 15:32:55 EDT, Compound Start Date: 07/02/18 Stop Date: 08/31/18 Status: Ordered ibuprofen 600 mg oral tablet 1 tablet = 600 mg, By Mouth, PRN as needed for pain, 0 Refills, Maintenance, 04/30/13 15:34:09 Start Date: 04/30/13 Status: Ordered Lantus Solostar Pen 100 units/mL subcutaneous solution = 70 units, Daily at bedtime, 0 Refills Start Date: 03/02/09 Stop Date: 03/31/09 Status: Ordered Lidoderm 5% film 1 patch, Topically, Daily, 0 Refills, Maintenance Start Date: 06/16/09 Status: Ordered lisinopril 10 mg oral tablet 1 tablet = 10 mg, Daily, 0 Refills Start Date: 03/02/09 Stop Date: 04/01/09 Status: Ordered Lyrica 300 mg oral capsule 1 capsule = 300 mg, By Mouth, 2 times a day, 0 Refills, Maintenance Start Date: 10/25/12 Status: Ordered metFORMIN 1000 mg oral tablet 1 tablet = 1,000 mg, By Mouth, 2 times a day with meals, # 180 tablet, 5 Refills, Maintenance, 12/04/18 15:48:10 EDT, Tablet, E11.65 Start Date: 12/04/18 Status: Ordered Metformin Tablet = 1,000 mg, By Mouth, 2 times a day, 0 Refills, 03/15/06 0:01:40 Start Date: 03/15/06 Status: Ordered NovoLOG FlexPen 100 units/mL subcutaneous solution See Instructions, Subcu injection per sliding scale (6-16units) Max 48 units/day, # 30 mL, 11 Refills, Maintenance, 01/03/19 16:29:03 EDT, E11.65, appointment needed Start Date: 01/03/19 Status: Ordered Omeprazole By Mouth, Daily, 0 Refills, Maintenance, 01/14/15 14:01:19 Start Date: 01/14/15 Status: Ordered Oxycodone = 5 mg, By Mouth, PRN as needed for pain, 0 Refills, Maintenance, 05/19/14 16:22:30 Start Date: 05/19/14 Status: Ordered Oxygen Supplies See Instructions, 0, 0, 01/29/08 16:46:30, 2 liters by nasal cannula at night, [facility] Start Date: 01/29/08 Status: Ordered Pen [place], 31 G x 5 mm BD Ultra Fine III See Instructions, # 400 each, Refills 2, Tot. Refills 2, Maintenance, for use with novolog flexpen and lantus solostar pen 4 times a day, 10/01/12 14:15:51, Compound Start Date: 10/01/12 Stop Date: 06/28/13 Status: Ordered Pen [place], 32 G x 4 mm BD Ultra Fine III See Instructions, # 150 each, Refills 11, Tot. Refills 11, Maintenance, for use 5x daily with insulin pens and Victoza, 12/04/18 15:46:50 EDT, e11.65, Compound Start Date: 12/04/18 Status: Ordered Premarin Vaginal 0.625 mg/gm cream with applicator Vaginally, Daily before dinner, 0 Refills, Maintenance, 01/14/15 13:59:52 Start Date: 01/14/15 Status: Ordered ProAir HFA 90 mcg/inh inhalation aerosol with adapter 2 puffs, Every 4 hours, PRN for wheezing, # 8.5 Gm, 0 Refills, Aerosol Start Date: 03/02/09 Stop Date: 04/01/09 Status: Ordered Splint See Instructions, 1, 0, 0, 12/27/07 8:56:45, bilateral wrist splints for carpal tunnel, [facility] Start Date: 12/27/07 Status: Ordered Symbicort 160mcg-4.5mcg Inhaler Inhalation, 2 times a day, Maintenance, 01/14/15 14:00:43 Start Date: 01/14/15 Status: Ordered Victoza 18 mg/3 mL subcutaneous solution = 1.8 mg, Subcutaneous Infusion, Daily, appointment needed, # 18 mL, 5 Refills, Maintenance, 01/03/19 14:32:15 EDT, e11.65 Start Date: 01/03/19 Stop Date: 06/26/20 Status: Ordered zolpidem 10 mg oral tablet 1 tablet, Daily at bedtime, PRN Sleep, 0 Refills, Tablet Start Date: 03/02/09 Stop Date: 03/09/09 Status: Ordered Problem List Condition Effective Dates Status Health Status Inform ant Diabetes mellitus, type II(Confirmed) Active Social History Social History Type Response Smoking Status Former smoker entered on: 01/14/15 Sex
--- OUTSIDE RECORDS SUMMARY | 2022-05-27 10:36 | XMS_ITS | Continuity of Care Document ---
Author Name Unknown Organization [facility] Address [address] [place] [phone]- Care Team Providers Care Tube Cutter Operator Name Role Phone Rito Irving MD Primary Care Physician [place] [facility] [place](s): 02/03/22 - 03/05/22 [facility] [address] [place] [phone]- Allergies, Adverse Reactions, Alerts Substance Reaction Severity [...] Note: pt given record of vaccine Medications 1 pair diabetic shoes and inserts 1 pair diabetic shoes and inserts, See Instructions, # 1 each, Refills 1, Tot. Refills 1, Maintenance, E11.65, 11/16/20 10:12:00 EDT, Supply Start Date: 11/16/20 Status: Ordered 14 day drew reader 14 day drew reader, See Instructions, # 1 each, Refills 0, Tot. Refills 0, Maintenance, E11.9: Fortesting glucose levels: [facility] [address]-01, 02/06/20 16:57:00 EST, Compound, 152.4, cm, 12/22/18 9:07:00 EDT, Height Start Date: 02/06/20 Status: Ordered 14 day drew reader 14 day drew reader, See Instructions, # 1 each, Refills 0, Tot. Refills 0, Maintenance, E 11.9: for testing glucose levels continuously throughout the day before meals and bedtime, 07/14/20 10:25:00EDT, Compound, 153, cm, 07/08/20 15:22:00 EDT, Height Start Date: 07/14/20 Status: Ordered 14 day drew reader 14 day drew reader, See Instructions, # 1 each, Refills 0, Tot. Refills 0, Maintenance, E11.9: Fortesting glucose levels: [facility] [address]-95, 05/27/20 14:59:00 EDT, Compound, 152.4, cm, 12/22/18 9:07:00 EDT, Height Start Date: 05/27/20 Status: Ordered 14 day drew sensor 14 day drew sensor, See Instructions, # 2 each, Refills 11, Tot. Refills 11, Maintenance, E 11.9: for testing glucose levels continuously throughout the day before meals and bedtime. Change sensor every 14 days, wear on the back of the upper arm, ... Start Date: 01/22/21 Status: Ordered AccuChek Fast Clix Lancets AccuChek Fast Clix [...] 15:30:39, Tablet Start Date: 04/30/13 Status: Ordered Baqsimi Two Pack 3 mg nasal powder = 3 mg, BAND Nebulizer, Once, # 2 each, 6 Refills, Soft Stop, 06/12/21 11:36:00 EDT, [facility][id number], Partial fill upon patient request if the prescription is for a schedule II opioid drug., 153, cm, 07/08/20 15:22:00 EDT, Height Start Date: 06/12/21 Status: Ordered Basaglar KwikPen 100 units/mL subcutaneous solution See Instructions, Subcutaneous Injection 54 U QD DX E11.65, # 20 mL, 6 Refills, Maintenance, 07/27/21 14:05:00 EDT, [facility] #[id number], Partial fill upon patient request if the prescription is for a schedule II opioid drug., 153, cm, 050... Start Date: 07/27/21 Status: Ordered Clonazepam 1, mg, By Mouth, 2 times a day, 0, 0, 05/16/07 1:47:09, Print JOE Number, [id number], Constant Indicator Start Date: 05/16/07 Status: Ordered Cymbalta Capsule = 150 mg, By Mouth, 2 times a day, 0 Refills, Maintenance, 04/30/13 15:22:03 Start Date: 04/30/13 Status: Ordered Diflucan 150 mg oral tablet 1 tablet = 150 mg, By Mouth, Once, 0 Refills, Maintenance, 01/14/15 14:00:23 Start Date: 01/14/15 Status: Ordered Enablex 15 mg oral tablet, extended release 1 tablet = 15 mg, By Mouth, Daily, # 30 tablet, 1 Refills, Maintenance, 07/15/20 8:40:00 EDT, ER Tablet, [facility][id number], Partial fill upon patient request if the prescription is for a schedule II opioid drug., 153, cm, 07/08/20 15:22:00 E... Start Date: 07/15/20 Status: Ordered Flonase 50 mcg/inh nasal spray [...] Compound Start Date: 11/16/18 Status: Ordered Freestyle drew 2 14-day sensors Freestyle drew 2 14-day sensors, See Instructions, # 2 each, Refills 11, Tot. Refills 11, Maintenance, Use sensor to monitor blood glucose continuously, change sensor every 14 days, Dx 11.65, 11/13/20 16:11:00 EDT, Supply Start Date: 11/13/20 Status: Ordered Freestyle drew 2 reader Freestyle drew 2 reader, See Instructions, # 1 each, Refills 0, Tot. Refills 0, Maintenance, dx 10.65, 10/02/20 16:14:00 EDT, Supply Start Date: 10/02/20 Status: Ordered Freestyle Lite Monitor See Instructions, # 1 each, Refills 0, Tot. Refills 0, Maintenance, She tests 4x a day., 10/02/18 16:52:30 EDT, Compound Start Date: 10/02/18 Status: Ordered Freestyle Lite Test Strips See Instructions, # 300 each, Refills 3, Tot. Refills 3, Maintenance, e10.9, 4x a day testing. 90 day supply, 10/15/21 8:33:00 EDT, Compound, 153, cm, 07/08/20 15:22:00 EDT, Height Start Date: 10/15/21 Stop Date: 02/12/22 Status: Ordered Gemtesa 75 mg oral tablet 1 tablet = 75 mg, By Mouth, Daily, # 30 tablet, 5 Refills, Maintenance, 07/08/20 15:52:00 EDT, Tablet, Partial fill upon patient request if the prescription is for a schedule II opioid drug., 153, cm, 07/08/20 15:22:00 EDT, Height Start Date: 07/08/20 Status: Ordered ibuprofen 600 mg oral tablet 1 tablet = 600 mg, By Mouth, PRN as needed for pain, 0 Refills, Maintenance, 04/30/13 15:34:09 Start Date: 04/30/13 Status: Ordered Insulin Aspart FlexPen 100 units/mL injectable solution See Instructions, INJECT UNDER THE SKIN THREE TIMES DAILY BEFORE MEALS. 80- 100=10 UNITS, 101-150=12, 151-200=14, 201-250=16U, 251-300=18, 301-350=20., # 30 mL, 6 Refills, Maintenance, 02/03/22 16:10:00 EST, [facility]/pharmacy #[id number], 153, cm, 12/09/21 13:35:... Start Date: 02/03/22 Status: Ordered Lantus Solostar Pen 100 units/mL subcutaneous solution = 70 units, Daily at bedtime, 0 Refills Start Date: 03/02/09 Stop Date: 03/31/09 Status: Ordered Lantus Solostar Pen 100 units/mL subcutaneous solution See Instructions, Subcutaneous Injection QD 54 U Dx E11.65 FILL [facility] ONLY, # 30 mL, 6 Refills, Maintenance, 08/03/21 17:11:00 EDT, [facility][id number], Partial fill upon patient request if the prescription is for a schedule... Start Date: 08/03/21 Status: Ordered Lidoderm 5% film 1 patch, [...] 03/15/06 0:01:40 Start Date: 03/15/06 Status: Ordered Omeprazole By Mouth, Daily, 0 Refills, Maintenance, 01/14/15 14:01:19 Start Date: 01/14/15 Status: Ordered Oxycodone = 5 mg, By Mouth, PRN as needed for pain, 0 Refills, Maintenance, 05/19/14 16:22:30 Start Date: 05/19/14 Status: Ordered Oxygen Supplies See Instructions, 0, 0, 01/29/08 16:46:30, 2 liters by nasal cannula at night, [facility] Start Date: 01/29/08 Status: Ordered Pen [place], 31 G x 5 mm BD Ultra Fine III See Instructions, # 400 each, Refills 3, Tot. Refills 3, Maintenance, e11.9, for use with novolog flexpen and lantus solostar pen 4 times a day, 10/07/21 16:04:00 EDT, Compound, 153, cm, 07/08/20 15:22:00 EDT, Height Start Date: 10/07/21 Stop Date: 10/02/22 Status: Ordered Pen [place], 32 G x 4 mm BD Ultra [...] 8:56:45, bilateral wrist splints for carpal tunnel, [facility] Start Date: 12/27/07 Status: Ordered Symbicort 160mcg-4.5mcg Inhaler Inhalation, 2 times a day, Maintenance, 01/14/15 14:00:43 Start Date: 01/14/15 Status: Ordered vibegron 75 mg oral tablet 1 tablet = 75 mg, By Mouth, Daily, # 30 tablet, 2 Refills, Maintenance, 07/29/20 15:03:00 EDT, Tablet, [facility] #[id number], Partial fill upon patient request if the prescription is for a schedule II opioid drug., 153, cm, 07/08/20 15:22:00 EDT... Start Date: 07/29/20 Status: Ordered Victoza 18 mg/3 mL subcutaneous solution = 1.8 mg, Subcutaneous Infusion, Daily, # 18 mL, 1 Refills, Maintenance, 10/22/21 13:42:00 EDT, [facility] #[id number], e11.65, 153, cm, 07/08/20 15:22:00 EDT, Height Start Date: 10/22/21 Stop Date: 04/20/22 Status: Ordered zolpidem 10 mg oral tablet 1 tablet, Daily at bedtime, PRN Sleep, 0 Refills, Tablet Start Date: 03/02/09 Stop Date: 03/09/09 Status: Ordered Problem List Condition Confirmation Course Effective Dates Status Health St atus Informant Diabetes mellitus, type II Confirmed Active Social History Social History Type Response Smoking Status Former smoker entered on: 01/14/15 Sex Patient Care team information Care Team Personnel Name: Rito Irving MD Position: [facility] Physician (General Medicine) Member Role: PCP Address: Address: [address] [place] [id number] [place] [id number] Name: Robin Oquendo RN Position: [facility] RN Member Role: Primary Care Nurse Care Team Related Persons Name: ROGER CABRALES Address: home [address] [address] Name: MAHNAZ LEYVA Address: home [address] [place] [address]
--- OUTSIDE RECORDS SUMMARY | 2022-05-27 10:36 | XMS_ITS | Continuity of Care Document ---
Author Name Unknown Organization [facility] Address [address] [place] [address]- Care Team Providers Care Arts Manager Name Role Phone Rito Irving MD Primary Care Physician Encounter [facility] [place] Date(s): 07/10/20 - 08/09/20 [facility] [address] [place] [phone]- Allergies, Adverse Reactions, Alerts Substance Reaction Severity [...] inserts, See Instructions, # 1 each, Refills 0, Tot. Refills 0, Maintenance, Dx 11.42, 07/14/20 10:30:00 EDT, Supply Start Date: 07/14/20 Status: Ordered 14 day drew reader 14 day drew reader, See Instructions, # 1 each, Refills 0, Tot. Refills 0, Maintenance, E11.9: Fortesting glucose levels: [facility] [address]-05, 02/06/20 16:57:00 EST, Compound, 152.4, cm, 12/22/18 [...] Refills 0, Maintenance, E11.9: Fortesting glucose levels: [facility] [address]-06, 05/27/20 14:59:00 EDT, Compound, 152.4, cm, 12/22/18 [...] of the upper arm, ... Start Date: 07/30/20 Status: Ordered AccuChek Fast Clix Lancets AccuChek [...] 0, 0, 05/16/07 1:47:09, Print JOE Number, [id number], Constant Indicator Start Date: 05/16/07 Status: Ordered [...] Refills, Maintenance, 07/15/20 8:40:00 EDT, ER Tablet, [facility] #[id number], Partial fill upon patient request if the [...] sensors, See Instructions, # 2 each, Refills 6, Tot. Refills 6, Maintenance, Dx 11.65, 03/13/20 17:16:00 EST, Supply Start Date: 03/13/20 Status: Ordered Freestyle drew 2 reader Freestyle drew 2 reader, See Instructions, # 1 each, Refills 0, Tot. Refills 0, Maintenance, dx 10.65, 03/13/20 17:16:00 EST, Supply Start Date: 03/13/20 Status: Ordered Freestyle Lite Monitor See Instructions, # 1 each, Refills 0, Tot. Refills 0, Maintenance, She tests 4x a day., 10/02/18 16:52:30 EDT, Compound Start Date: 10/02/18 Status: Ordered Freestyle Lite Test Strips See Instructions, # 300 each, Refills 3, Tot. Refills 3, Maintenance, 4x a day testing. 90 day supply, 07/30/20 12:48:00 EDT, Compound, 153, cm, 07/08/20 15:22:00 EDT, Height Start Date: 07/30/20 Stop Date: 11/27/20 Status: Ordered Gemtesa 75 mg oral tablet [...] (6-16units) Max 48 units/day, # 30 mL, 5 Refills, Maintenance, 07/30/20 12:48:00 EDT, [facility] #[id number], E11.65, appointment needed, 153,cm, 07/08/20 15:22:00 EDT, Height Start Date: 07/30/20 Status: Ordered Omeprazole By Mouth, Daily, 0 Refills, Maintenance, 01/14/15 14:01:19 Start Date: 01/14/15 Status: Ordered Oxycodone = 5 mg, By Mouth, PRN as needed for pain, 0 Refills, Maintenance, 05/19/14 16:22:30 Start Date: 05/19/14 Status: Ordered Oxygen Supplies See Instructions, 0, 0, 01/29/08 16:46:30, 2 liters by nasal cannula at night, [facility] Start Date: 01/29/08 Status: Ordered Pen [place], 31 G x 5 mm BD Ultra Fine III See Instructions, # 400 each, Refills 2, Tot. Refills 2, Maintenance, for use with novolog flexpen and lantus solostar pen 4 times a day, 07/30/20 12:48:00 EDT, Compound, 153, cm, 07/08/20 15:22:00 EDT, Height Start Date: 07/30/20 Stop Date: 04/26/21 Status: Ordered Pen [place], 32 G x 4 mm BD Ultra [...] bilateral wrist splints for carpal tunnel, [facility] Start Date: 12/27/07 Status: Ordered Symbicort 160mcg-4.5mcg Inhaler Inhalation, 2 times a day, Maintenance, 01/14/15 14:00:43 Start Date: 01/14/15 Status: Ordered vibegron 75 mg oral tablet 1 tablet = 75 mg, By Mouth, Daily, # 30 tablet, 2 Refills, Maintenance, 07/29/20 15:03:00 EDT, Tablet, [facility] #[id number], Partial fill upon patient request if the prescription is for a schedule II opioid drug., 153, cm, 07/08/20 15:22:00 EDT... Start Date: 07/29/20 Status: Ordered Victoza 18 mg/3 mL subcutaneous solution = 1.8 mg, Subcutaneous Infusion, Daily, # 18 mL, 3 Refills, Maintenance, 06/26/20 14:32:00 EDT, [facility] #[id number], e11.65, 152.4, cm, 12/22/18 9:07:00 EDT, Height Start Date: 06/26/20 Stop Date: 06/21/21 Status: Ordered zolpidem 10 mg oral tablet 1 tablet, Daily at bedtime, PRN Sleep, 0 Refills, Tablet Start Date: 03/02/09 Stop Date: 03/09/09 Status: Ordered Problem List Condition Effective Dates Status Health Status Inform ant Diabetes mellitus, type II(Confirmed) Active Social History Social History Type Response Smoking Status Former smoker entered on: 01/14/15 Sex
--- OUTSIDE RECORDS SUMMARY | 2022-05-27 10:36 | XMS_ITS | Continuity of Care Document ---
Author Name Unknown Organization [facility] Address [address] [place] [address]- Care Team Providers Care Bottom Crane Operator Name Role Phone Rito Irving MD Primary Care Physician [place] [facility] [place] 08/26/21 [facility] [address] [place] [phone]- Allergies, Adverse Reactions, Alerts Substance Reaction Severity [...] 0, Maintenance, E11.9: Fortesting glucose levels: [facility] [address]-50, 02/06/20 16:57:00 EST, Compound, 152.4, cm, 12/22/18 [...] 0, Maintenance, E11.9: Fortesting glucose levels: [facility] [address]-90, 05/27/20 14:59:00 EDT, Compound, 152.4, cm, 12/22/18 [...] 6 Refills, Soft Stop, 06/12/21 11:36:00 EDT, [facility] #[id number], Partial fill upon patient request if the prescription is for a schedule II opioid drug., 153, cm, 07/08/20 15:22:00 EDT, Height Start Date: 06/12/21 Status: Ordered Basaglar KwikPen 100 units/mL subcutaneous solution See Instructions, Subcutaneous Injection 54 U QD DX E11.65, # 20 mL, 6 Refills, Maintenance, 07/27/21 14:05:00 EDT, [facility] #[id number], Partial fill upon patient request if the prescription is for a schedule II opioid drug., 153, cm, 050... Start Date: 07/27/21 Status: Ordered Clonazepam 1, mg, By Mouth, 2 times a day, 0, 0, 05/16/07 1:47:09, Print JOE Number, [id number], Constant Indicator Start Date: 05/16/07 Status: Ordered [...] Refills, Maintenance, 07/15/20 8:40:00 EDT, ER Tablet, [facility] #[id number], Partial fill upon patient request if the [...] mL, 6 Refills, Maintenance, 08/03/21 17:11:00 EDT, [facility] #[id number], Partial fill upon patient request if the [...] FlexPen 100 units/mL subcutaneous solution See Instructions, Three times a day before meals. 80 100 10 units 101 150 12 units 151 200 14 units; 201 250 16 units 251 300 18 units 301 350 20 units, # 30 mL, 5 Refills, Maintenance, 01/06/21 23:20:00 EDT, [facility]... Start Date: 01/06/21 Status: Ordered Omeprazole By Mouth, Daily, 0 Refills, Maintenance, 01/14/15 14:01:19 Start Date: 01/14/15 Status: Ordered Oxycodone = 5 mg, By Mouth, PRN as needed for pain, 0 Refills, Maintenance, 03/16/15 16:22:30 Start Date: 05/19/14 Status: Ordered Oxygen Supplies See Instructions, 0, 0, 01/29/08 16:46:30, 2 liters by nasal cannula at night, [facility] Start Date: 01/29/08 Status: Ordered Pen [place], 31 G x 5 mm BD Ultra Fine III See Instructions, # 400 each, Refills 2, Tot. Refills 2, Maintenance, for use with novolog flexpen and lantus solostar pen 4 times a day, 07/30/20 12:48:00 EDT, Compound, 153, cm, 07/08/20 15:22:00 EDT, Height Start Date: 07/30/20 Stop Date: 04/26/21 Status: Ordered Pen [place], 32 G x 4 mm BD Ultra [...] 8:56:45, bilateral wrist splints for carpal tunnel, [facility] Start Date: 12/27/07 Status: Ordered Symbicort 160mcg-4.5mcg Inhaler Inhalation, 2 times a day, Maintenance, 01/14/15 14:00:43 Start Date: 01/14/15 Status: Ordered vibegron 75 mg oral tablet 1 tablet = 75 mg, By Mouth, Daily, # 30 tablet, 2 Refills, Maintenance, 07/29/20 15:03:00 EDT, Tablet, [facility] #[id number], Partial fill upon patient request if the prescription is for a schedule II opioid drug., 153, cm, 07/08/20 15:22:00 EDT... Start Date: 07/29/20 Status: Ordered Victoza 18 mg/3 mL subcutaneous solution = 1.8 mg, Subcutaneous Infusion, Daily, for 90 days, # 18 mL, 3 Refills, Hard Stop 10/04/21 15:00:00 EDT, 10/09/20 15:00:00 EDT, [facility] #[id number], e11.65, 153, cm, 07/08/20 15:22:00 EDT, Height Start Date: 10/09/20 Stop Date: 10/04/21 Status: Ordered Victoza 18 mg/3 mL subcutaneous solution = 1.8 mg, Subcutaneous Infusion, Daily, # 18 mL, 1 Refills, Maintenance, 10/04/21 15:00:00 EDT, [facility] #[id number], e11.65, 153, cm, 07/08/20 15:22:00 EDT, Height Start Date: 10/04/21 Stop Date: 04/02/22 Status: Ordered zolpidem 10 mg oral tablet 1 tablet, Daily at bedtime, PRN Sleep, 0 Refills, Tablet Start Date: 03/02/09 Stop Date: 03/09/09 Status: Ordered Problem List Condition Effective Dates Status Health Status Inform ant Diabetes mellitus, type II(Confirmed) Active Social History Social History Type Response Smoking Status Former smoker entered on: 01/14/15 Sex
--- OUTSIDE RECORDS SUMMARY | 2022-05-27 10:36 | XMS_ITS | Continuity of Care Document ---
Author Name Unknown Organization [facility] Address [address] [place] [address], [address] [place] [address]- Care Team Providers Care Bacon Slicer Name Role Phone Rito Irving MD Primary Care Physician [place] [facility] [id number] Date(s): 07/09/20 - 11/05/20 [facility] [address] [facility] [place], [place] [address] Attending Physician: Niesha Parada MD Admitting Physician: Niesha Parada MD Referring Physician: Niesha Parada MD Allergies, Adverse Reactions, Alerts Substance Reaction Severity [...] Refills 0, Maintenance, E11.9: Fortesting glucose levels: [facility] [address]-81, 02/06/20 16:57:00 EST, Compound, 152.4, cm, 12/22/18 [...] Refills 0, Maintenance, E11.9: Fortesting glucose levels: [facility] [address]-37, 05/27/20 14:59:00 EDT, Compound, 152.4, cm, 12/22/18 [...] Basaglar KwikPen 100 units/mL subcutaneous solution = 58 units, Subcutaneous Infusion, Daily at bedtime, # 10 mL, 11 Refills, Maintenance, 10/09/20 15:00:00 EDT, [facility] #[id number], e11.65, 153, cm, 07/08/20 15:22:00 EDT, Height Start Date: 10/09/20 Status: Ordered Clonazepam 1, mg, By Mouth, 2 times a day, 0, 0, 05/16/07 1:47:09, Print JOE Number, [id number], Constant Indicator Start Date: 05/16/07 Status: Ordered [...] Refills, Maintenance, 07/15/20 8:40:00 EDT, ER Tablet, [facility] #[id number], Partial fill upon patient request if the [...] 6, Tot. Refills 6, Maintenance, Dx 11.65, 10/02/20 16:14:00 EDT, Supply Start Date: 10/02/20 Status: Ordered Freestyle drew 2 reader Freestyle [...] mL, 5 Refills, Maintenance, 07/30/20 12:48:00 EDT, [facility] #[id number], E11.65, appointment needed, 153,cm, 07/08/20 15:22:00 EDT, [...] liters by nasal cannula at night, [facility] Start Date: 01/29/08 Status: Ordered Pen [place], 31 G x 5 mm BD Ultra Fine III See Instructions, # 400 each, Refills 2, Tot. Refills 2, Maintenance, for use with novolog flexpen and lantus solostar pen 4 times a day, 07/30/20 12:48:00 EDT, Compound, 153, cm, 07/08/20 15:22:00 EDT, Height Start Date: 07/30/20 Stop Date: 04/26/21 Status: Ordered Pen [place], 32 G x 4 mm BD Ultra [...] 2 Refills, Maintenance, 07/29/20 15:03:00 EDT, Tablet, [facility] #[id number], Partial fill upon patient request if the prescription is for a schedule II opioid drug., 153, cm, 07/08/20 15:22:00 EDT... Start Date: 07/29/20 Status: Ordered Victoza 18 mg/3 mL subcutaneous solution = 1.8 mg, Subcutaneous Infusion, Daily, # 18 mL, 3 Refills, Maintenance, 10/09/20 15:00:00 EDT, [facility] #[id number], e11.65, 153, cm, 07/08/20 15:22:00 EDT, Height Start Date: 10/09/20 Stop Date: 10/04/21 Status: Ordered zolpidem 10 mg oral tablet 1 tablet, Daily at bedtime, PRN Sleep, 0 Refills, Tablet Start Date: 03/02/09 Stop Date: 03/09/09 Status: Ordered Problem List Condition Effective Dates Status Health Status Inform ant Diabetes mellitus, type II(Confirmed) Active Social History Social History Type Response Smoking Status Former smoker entered on: 01/14/15 Sex
--- OUTSIDE RECORDS SUMMARY | 2022-05-27 10:36 | XMS_ITS | Continuity of Care Document ---
Author Name Unknown Organization [employer] ter Address [address] [place] [address]- Care Team Providers Care Yeast Tender Name Role Phone Rito Irving MD Primary Care Physician Encounter [facility] [place] [facility] [place] Date(s): 04/21/22 - 04/21/[address] [id number] Discharge Disposition: A-D/C Home Attending Physician: Lion Kim MD Admitting Physician: Lion Kim MD Referring Physician: Lion Kim MD Allergies, Adverse Reactions, Alerts Substance Reaction [...] Refills 0, Maintenance, E11.9: Fortesting glucose levels: [facility] [address]-13, 02/06/20 16:57:00 EST, Compound, 152.4, cm, 12/22/18 [...] Refills 0, Maintenance, E11.9: Fortesting glucose levels: [facility] [address]-37, 05/27/20 14:59:00 EDT, Compound, 152.4, cm, 12/22/18 [...] 6 Refills, Soft Stop, 06/12/21 11:36:00 EDT, [facility] #[id number], Partial fill upon patient request if the prescription is for a schedule II opioid drug., 153, cm, 07/08/20 15:22:00 EDT, Height Start Date: 06/12/21 Status: Ordered Basaglar KwikPen 100 units/mL subcutaneous solution See Instructions, Subcutaneous Injection 54 U QD DX E11.65, # 20 mL, 6 Refills, Maintenance, 07/27/21 14:05:00 EDT, [facility] #[id number], Partial fill upon patient request if the prescription is for a schedule II opioid drug., 153, cm, 050... Start Date: 07/27/21 Status: Ordered Clonazepam 1, mg, By Mouth, 2 times a day, 0, 0, 05/16/07 1:47:09, Print JOE Number, [id number], Constant Indicator Start Date: 05/16/07 Status: Ordered [...] Refills, Maintenance, 07/15/20 8:40:00 EDT, ER Tablet, [facility] #[id number], Partial fill upon patient request if the [...] 151-200=14, 201-250=16U, 251-300=18, 301-350=20., # 30 mL, 4 Refills, Maintenance, 04/19/22 11:00:00 EST, [facility] #[id number], 153, cm, ... Start Date: 04/19/22 Status: Ordered Lantus Solostar Pen 100 units/mL subcutaneous solution = 70 units, Daily at bedtime, 0 Refills Start Date: 03/02/09 Stop Date: 03/31/09 Status: Ordered Lantus Solostar Pen 100 units/mL subcutaneous solution See Instructions, Subcutaneous Injection QD 54 U Dx E11.65 FILL [facility] ONLY, # 30 mL, 6 Refills, Maintenance, 08/03/21 17:11:[id number], Partial fill upon patient request if the [...] Refills, Maintenance Start Date: 10/25/12 Status: Ordered Omeprazole By Mouth, Daily, 0 Refills, Maintenance, 01/14/15 14:01:19 Start Date: 01/14/15 Status: Ordered Oxycodone = 5 mg, By Mouth, PRN as needed for pain, 0 Refills, Maintenance, 05/19/14 16:22:30 Start Date: 05/19/14 Status: Ordered Oxygen Supplies See Instructions, 0, 0, 01/29/08 16:46:30, 2 liters by nasal cannula at night, [facility] Start Date: 01/29/08 Status: Ordered Pen [place], 31 G x 5 mm BD Ultra Fine III See Instructions, # 400 each, Refills 3, Tot. Refills 3, Maintenance, e11.9, for use with novolog flexpen and lantus solostar pen 4 times a day, 10/07/21 16:04:00 EDT, Compound, 153, cm, 07/08/20 15:22:00 EDT, Height Start Date: 10/07/21 Stop Date: 10/02/22 Status: Ordered Pen [place], 32 G x 4 mm BD Ultra [...] 8:56:45, bilateral wrist splints for carpal tunnel, [facility] Start Date: 12/27/07 Status: Ordered Symbicort 160mcg-4.5mcg Inhaler Inhalation, 2 times a day, Maintenance, 01/14/15 14:00:43 Start Date: 01/14/15 Status: Ordered vibegron 75 mg oral tablet 1 tablet = 75 mg, By Mouth, Daily, # 30 tablet, 2 Refills, Maintenance, 07/29/20 15:03:00 EDT, Tablet, [facility] #[id number], Partial fill upon patient request if the prescription is for a schedule II opioid drug., 153, cm, 07/08/20 15:22:00 EDT... Start Date: 07/29/20 Status: Ordered Victoza 18 mg/3 mL subcutaneous solution = 1.8 mg, Subcutaneous Infusion, Daily, # 18 mL, 1 Refills, Maintenance, 10/22/21 13:42:00 EDT, [facility] #[id number], e11.65, 153, cm, 07/08/20 15:22:00 EDT, Height Start Date: 10/22/21 Stop Date: 04/20/22 Status: Ordered zolpidem 10 mg oral tablet 1 tablet, Daily at bedtime, PRN Sleep, 0 Refills, Tablet Start Date: 03/02/09 Stop Date: 03/09/09 Status: Ordered Problem List Condition Confirmation Course Effective Dates Status [facility] atus Informant Diabetes mellitus, type II Confirmed Active Results Radiology Reports * Exam Date Time Procedure Performing Provider Status 04/21/22 3:33 PM MRI Lumbar Spine W/O Contrast Timothy Tejeda; [place] (Verified) Notes: (MRI Lumbar Spine W/O Contrast) Reason For Exam: M54.16 LUMBAR RADICULOPATHY RESULT: MRI Lumbar Spine W/O Contrast MRI Lumbar Spine W/O Contrast INDICATION: Reason: M54.16 LUMBAR RADICULOPATHY; Clinical Question(s): Other: Other: TECHNIQUE: MRI of the lumbar spine was performed without intravenous contrast utilizing sagittal T1, sagittal T2, sagittal STIR, axial T1, and axial T2- weighted sequences. COMPARISON: 04/23/2017 FINDINGS: NUMBERING: The study assumes 5 wwl-oiz-[id number] lumbar type vertebral bodies. ALIGNMENT, VERTEBRAE, MARROW, AND DISCS: A mild leftward curvature of the lumbar spine is present. Mild degenerative anterolisthesis of L4 on L5. Mild chronic loss of height of the L3 vertebral body is again noted. There is no spondylolysis. Mild edema of the right superior L2 vertebral body is noted. The lumbar discs are desiccated with sparing of L1-L2. Mild loss of height of L2-L3 and L3-L4. Subtle loss of height of L4-L5 and L5-S1. CONUS: The conus is normal in signal and contour, with normal level of termination at L1. PARASPINAL TISSUES: Fatty atrophy of the posterior paraspinal musculature. DETAILED FINDINGS BY LEVEL: At T12-L1, there is mild facet arthrosis. No central canal or foraminal stenosis. L1-L2: Mild facet arthrosis. No significant central canal or foraminal narrowing. L2-L3: Mild concentric disc-osteophyte complex, facet arthrosis, and mild ligamentum flavum infolding. Mild central canal narrowing. Mild foraminal narrowing. L3-L4: Mild concentric disc-osteophyte complex, facet arthrosis, and ligamentum flavum infolding. Asmall superimposed right paracentral disc protrusion as resolved. Mild to mild-moderate central canal stenosis. Right subarticular recess narrowing without traversing nerve root impingement. Mild to mild- moderate right and mild left foraminal narrowing. L4-L5: A concentric disc-osteophyte complex is again noted. Facet arthrosis, ligamentum flavum infolding, and small right facet joint effusion. Moderate to moderate-severe central canal stenosis. Bilateral subarticular recess narrowing with crowding of the traversing L5 nerve roots. The right foramen is now severely narrowed. Mild-moderate left foraminal narrowing. L5-S1: Concentric disc-osteophyte complex and facet arthrosis. Mild central canal narrowing. A superimposed right paracentral disc protrusion is no longer present. Mild right and continued severe left foraminal stenosis with compression of the left L5 nerve roots. IMPRESSION: Degenerative changes of the lumbar spine with central canal and foraminal narrowing as detailed above. These can be correlated with the patient's symptoms and neurological examination. WSN: [id number] Ordering Physician: Rito Irving Dictated By: Andrea Browne MD Dictated Date/Time: 04/21/22 3:53 pm Reviewed By: Andrea Browne MD Signed By: Andrea Browne MD Signed Date/Time: 04/21/22 3:53 pm Transcribed By: MEDHAT Transcribed Date/Time: 04/21/22 3:43 pm * Exam Date Time Procedure Performing Provider Status 04/21/22 3:15 PM MRI Brain W/O Contrast Nithin Tejeda [facility] (Verified) Notes: (MRI Brain W/O Contrast) Reason For Exam: M54.16 R41.3 LUMBAR RADICULOPATHY MEMORY LOSS RESULT: MRI Brain W/O Contrast MRI Brain W/O Contrast INDICATION: MEMORY LOSS, past history of Arnold-Chiari malformation, status post surgery 1998. TECHNIQUE: MRI of the brain was performed without contrast utilizing sagittal T1, axial T2, axial FLAIR, axial SWAN, and axial DWI sequences. COMPARISON: MRI brain from 02/03/2020 7: MRI cervical spine from 01/14/2016.. FINDINGS: BRAIN and EXTRA-AXIAL SPACES: Postsurgical changes consistent with prior suboccipital craniotomy are again visualized. Similar-appearing subtle syrinx within the upper cervical cord from the inferioraspect of the fourth ventricle extending up to the upper C2 level, unchanged since 2007. The midline structures, including sella, corpus callosum, and craniocervical junction, are otherwise unremarkable. There is no mass effect, midline shift, or effacement of the basal cisterns. Similarlow lying cerebellar tonsils. On diffusion weighted imaging, there are no regions of restricted diffusion to indicate an acute or subacute infarct. There is no evidence of intracranial hemorrhage on susceptibility sensitive sequence. Mild scattered foci of T2 prolongation are seen in the periventricular and subcortical white matter. Ventricles, cisterns, and sulci are normal in size and configuration, without hydrocephalus. No abnormal extra-axial fluid collections are seen. Meningeal surfaces are normal. Major intracranial flow voids are present. EXTRACRANIAL SOFT TISSUES: There have been lens replacements bilaterally. Minimal fluid in the inferior left mastoid air cells. Paranasal sinuses and mastoids are otherwise unremarkable. BONES: Marrow signal is preserved. IMPRESSION: 1. No acute/subacute infarct, mass, hemorrhage, or other acute intracranial abnormality. 2. Mild T2/FLAIR hyperintense foci in the white matter, nonspecific but most likely reflecting chronic small vessel disease. 3. Status post suboccipital craniectomy and Chiari I decompression. I have personally reviewed the images and I agree with this report. WSN: [id number] Ordering Physician: Rito Irving Dictated By: David Lockhart MD Dictated Date/Time: 04/21/22 4:50 pm Reviewed By: Megan Pablo MD Signed By: Megan Pablo MD Signed Date/Time: 04/21/22 4:55 pm Transcribed By: MEDHAT Transcribed Date/Time: 04/21/22 4:41 pm Vital Signs Most recent to oldest [Reference Range]: 1 2 3 Height 153 cm (04/21/22 11:07 AM) 153 cm (04/21/22 11:05 AM) Weight 91 kg (04/21/22 11:07 AM) Oxygen Saturation [94-100 %] 97 % (04/21/22 5:00 PM) 98 % (04/21/22 4:45 PM) 100 % (2/16/23 4:30 PM) Pulse Rate [55-90 bpm] 91 bpm *H* (04/21/22 11:05 AM) Blood Pressure [90-138/55-84 mm Hg] 115/60mm Hg (04/21/22 5:00 PM) 117/53mm Hg (04/21/22 4:45 PM) 117/59mm Hg (04/21/22 4:30 PM) Respiratory Rate [16-30 br/min] 18 br/min (04/21/22 5:00 PM) 21 br/min (04/21/22 4:45 PM) 18 br/min (04/21/22 4:30 PM) Temperature [96.8-100.4 DegF] 97.7 DegF (04/21/22 4:45 PM) 97.6 DegF (04/21/22 4:00 PM) 97 DegF (04/21/22 11:05 AM) Liters per Minute 3 L/min (04/21/22 4:45 PM) 4 L/min (04/21/22 4:30 PM) 4 L/min (04/21/22 4:15 PM) Mode of Delivery (Oxygen) Nasal cannula (04/21/22 4:45 PM) Nasal cannula (04/21/22 4:30 PM) Nasal cannula (04/21/22 4:15 PM) Blood pressure sites Arm, right (04/21/22 4:00 PM) Arm, left (04/21/22 11:05 AM) Temperature Route Temporal (04/21/22 4:45 PM) Temporal (04/21/22 4:00 PM) Temporal (04/21/22 11:05 AM) Dry Weight 91 kg (04/21/22 11:07 AM) Weight Obtained Via Patient/family state d (04/21/22 11:07 AM) Social History Social History Type Response Smoking Status Former smoker entered on: 01/14/15 Sex Hospital Progress note * Adamaris Virgen RN: PERFORM, SIGN, VERIFY Event Display: Progress Note Hospital Authored Date: [id number] Patient: GOVIND SERRATO Age: 71 years Sex: Female : 1950 Associated Diagnoses: None Author: Promise CAREY, Adamaris Findings patient arrived to procedural area for MRI. Upon pre-anesthesia review, patient reported a blood glucose of 244 @ 7am at home. Self administered 22units of insulin. patient's blood glucose checked atbedside. result was <47 @1342. anesthesiologist made aware, and proceeded to administer 1/2 amp of D50. blood glucose rechecked @ 1400, result was 133. remaining half amp of D50 administered. at this time, D5 LR hung to gravity. blood glucose recheck @ 1406. Result was 202. Anesthesiologist cleared patient to proceed with imaging under GA. Will continue to monitor blood glucose. Discharge Information Pulmonary Rehab Discharge : Pulmonary Rehab Discharge Status 04/21/2022 11:07 EST Liter flow 3 LPM * Trina Galo RN: PERFORM, SIGN, VERIFY Event Display: Progress Note Hospital Authored Date: [id number] Patient: GOVIND SERRATO Age: 71 years Sex: Female : 1950 Associated Diagnoses: None Author: Trina Galo RN Findings Narrative/Incidental Pt arrived from home for MRI, pt Aox3, pt on 3L O2 nc, consents obtained and IV placed, pt off unitto MRI @ 1310. Discharge Information Pulmonary Rehab Discharge : Pulmonary Rehab Discharge Status 04/21/2022 11:07 EST Liter flow 3 LPM Note * Nieves Enrique: PERFORM Event Display: Discharge/Transfer Note Hospital Authored Date: [id number] Nursing Discharge Note Entered On: 04/21/2022 17:58 EST Performed On: 04/21/2022 17:58 EST by Nieves Enrique Nursing Discharge Note 2 Discharge Time : 04/21/2022 17:58 EST Discharge Level of Care at Discharge : Home/[facility] Patient Left Unit Via : Wheelchair Patient Accompanied Off Unit with : Significant other DC Instructions Provided & Signed by Pt : Yes Patient Understands D/C Instructions : Yes Patient Instructions Discharge Signed : Yes Did Pt have Specialty Bed or Wound Vac : No Nieves Enrique - 04/21/2022 17:58 EST MR Lumbar spine WO contrast * Andrea Browne MD: VERIFY Andrea Browne MD: VERIFY Event Display: Result: Authored Date: [id number] MRI Lumbar Spine W/O Contrast INDICATION: Reason: M54.16 LUMBAR RADICULOPATHY; Clinical Question(s): Other: Other: TECHNIQUE: MRI of the lumbar spine was performed without intravenous contrast utilizing sagittal T1, sagittal T2, sagittal STIR, axial T1, and axial T2- weighted sequences. COMPARISON: 04/23/2017 FINDINGS: NUMBERING: The study assumes 5 [id number] lumbar type vertebral bodies. ALIGNMENT, VERTEBRAE, MARROW, AND DISCS: A mild leftward curvature of the lumbar spine is present. Mild degenerative anterolisthesis of L4 on L5. Mild chronic loss of height of the L3 vertebral body is again noted. There is no spondylolysis. Mild edema of the right superior L2 vertebral body is noted. The lumbar discs are desiccated with sparing of L1-L2. Mild loss of height of L2-L3 and L3-L4. Subtle loss of height of L4-L5 and L5-S1. CONUS: The conus is normal in signal and contour, with normal level of termination at L1. PARASPINAL TISSUES: Fatty atrophy of the posterior paraspinal musculature. DETAILED FINDINGS BY LEVEL: At T12-L1, there is mild facet arthrosis. No central canal or foraminal stenosis. L1-L2: Mild facet arthrosis. No significant central canal or foraminal narrowing. L2-L3: Mild concentric disc-osteophyte complex, facet arthrosis, and mild ligamentum flavum infolding. Mild central canal narrowing. Mild foraminal narrowing. L3-L4: Mild concentric disc-osteophyte complex, facet arthrosis, and ligamentum flavum infolding. Asmall superimposed right paracentral disc protrusion as resolved. Mild to mild-moderate central canal stenosis. Right subarticular recess narrowing without traversing nerve root impingement. Mild to mild- moderate right and mild left foraminal narrowing. L4-L5: A concentric disc-osteophyte complex is again noted. Facet arthrosis, ligamentum flavum infolding, and small right facet joint effusion. Moderate to moderate-severe central canal stenosis. Bilateral subarticular recess narrowing with crowding of the traversing L5 nerve roots. The right foramen is now severely narrowed. Mild-moderate left foraminal narrowing. L5-S1: Concentric disc-osteophyte complex and facet arthrosis. Mild central canal narrowing. A superimposed right paracentral disc protrusion is no longer present. Mild right and continued severe left foraminal stenosis with compression of the left L5 nerve roots. IMPRESSION: Degenerative changes of the lumbar spine with central canal and foraminal narrowing as detailed above. These can be correlated with the patient's symptoms and neurological examination. WSN: [id number] Ordering Physician: Rito Irving Dictated By: Andrea Browne MD Dictated Date/Time: 04/21/22 3:53 pm Reviewed By: Andrea Browne MD Signed By: Andrea Browne MD Signed Date/Time: 04/21/22 3:53 pm Transcribed By: MEDHAT Transcribed Date/Time: 04/21/22 3:43 pm MR Brain WO contrast * BHSPowerscribe , CIS S: TRANSCRIBE Megan Pablo MD: VERIFY David Lockhart MD A: SIGN Event Display: Result: Authored Date: [id number] MRI Brain W/O Contrast INDICATION: MEMORY LOSS, past history of Arnold-Chiari malformation, status post surgery 1998. TECHNIQUE: MRI of the brain was performed without contrast utilizing sagittal T1, axial T2, axial FLAIR, axial SWAN, and axial DWI sequences. COMPARISON: MRI brain from 02/03/2020 7: MRI cervical spine from 01/14/2016.. FINDINGS: BRAIN and EXTRA-AXIAL SPACES: Postsurgical changes consistent with prior suboccipital craniotomy are again visualized. Similar-appearing subtle syrinx within the upper cervical cord from the inferioraspect of the fourth ventricle extending up to the upper C2 level, unchanged since 2007. The midline structures, including sella, corpus callosum, and craniocervical junction, are otherwise unremarkable. There is no mass effect, midline shift, or effacement of the basal cisterns. Similarlow lying cerebellar tonsils. On diffusion weighted imaging, there are no regions of restricted diffusion to indicate an acute or subacute infarct. There is no evidence of intracranial hemorrhage on susceptibility sensitive sequence. Mild scattered foci of T2 prolongation are seen in the periventricular and subcortical white matter. Ventricles, cisterns, and sulci are normal in size and configuration, without hydrocephalus. No abnormal extra-axial fluid collections are seen. Meningeal surfaces are normal. Major intracranial flow voids are present. EXTRACRANIAL SOFT TISSUES: There have been lens replacements bilaterally. Minimal fluid in the inferior left mastoid air cells. Paranasal sinuses and mastoids are otherwise unremarkable. BONES: Marrow signal is preserved. IMPRESSION: 1. No acute/subacute infarct, mass, hemorrhage, or other acute intracranial abnormality. 2. Mild T2/FLAIR hyperintense foci in the white matter, nonspecific but most likely reflecting chronic small vessel disease. 3. Status post suboccipital craniectomy and Chiari I decompression. I have personally reviewed the images and I agree with this report. WSN: [id number] Ordering Physician: Rito Irving Dictated By: David Lockhart MD Dictated Date/Time: 04/21/22 4:50 pm Reviewed By: Megan Pablo MD Signed By: Megan Pablo MD Signed Date/Time: 04/21/22 4:55 pm Transcribed By: MEDHAT Transcribed Date/Time: 04/21/22 4:41 pm Patient Care team information Care Team Personnel Name: Rito Irving MD Position: [facility] Physician (General Medicine) Member Role: PCP Address: Address: [address] [place] [id number] [place] [address] Name: Azra CAREY, Robin Position: [facility] SN RN Member Role: Primary Care Nurse Care Team Related Persons Name: ROGER CABRALES Address: home [address] [address] Name: MAHNAZ LEYVA Address: [address] [place] [address]
--- OUTSIDE RECORDS SUMMARY | 2022-05-27 10:36 | XMS_ITS | Continuity of Care Document ---
Author Name Unknown Organization [facility] Address [address] [place] [address]- Care Team Providers Care Customer Records Division Supervisor Name Role Phone Rito Irving MD Primary Care Physician Encounter [facility] Date(s): 01/26/22 - 02/25/22 [facility] [address] [place] [id number] Allergies, Adverse Reactions, Alerts Substance Reaction Severity [...] Refills 0, Maintenance, E11.9: Fortesting glucose levels: [facility] [address]-12, 02/06/20 16:57:00 EST, Compound, 152.4, cm, 12/22/18 [...] Refills 0, Maintenance, E11.9: Fortesting glucose levels: [facility] [address]-54, 05/27/20 14:59:00 EDT, Compound, 152.4, cm, 12/22/18 [...] 6 Refills, Soft Stop, 06/12/21 11:36:00 EDT, [facility] #[id number], Partial fill upon patient request if the prescription is for a schedule II opioid drug., 153, cm, 07/08/20 15:22:00 EDT, Height Start Date: 06/12/21 Status: Ordered Basaglar KwikPen 100 units/mL subcutaneous solution See Instructions, Subcutaneous Injection 54 U QD DX E11.65, # 20 mL, 6 Refills, Maintenance, 07/27/21 14:05:00 EDT, [facility] #[id number], Partial fill upon patient request if the prescription is for a schedule II opioid drug., 153, cm, 05/0... Start Date: 07/27/21 Status: Ordered Clonazepam 1, mg, By Mouth, 2 times a day, 0, 0, 05/16/07 1:47:09, Print JOE Number, [id number], Constant Indicator Start Date: 05/16/07 Status: Ordered [...] Refills, Maintenance, 07/15/20 8:40:00 EDT, ER Tablet, [facility] #[id number], Partial fill upon patient request if the [...] Status: Ordered Freestyle drew 2 reader Freestyle derw 2 reader, See Instructions, # 1 each, [...] mL, 6 Refills, Maintenance, 02/03/22 16:10:00 EST, [facility]acy #[id number], 153, cm, 12/09/21 13:35:... Start Date: 02/03/22 Status: Ordered Lantus Solostar Pen 100 units/mL subcutaneous solution = 70 units, Daily at bedtime, 0 Refills Start Date: 03/02/09 Stop Date: 03/31/09 Status: Ordered Lantus Solostar Pen 100 units/mL subcutaneous solution See Instructions, Subcutaneous Injection QD 54 U Dx E11.65 FILL [facility] ONLY, # 30 mL, 6 Refills, Maintenance, 08/03/21 17:11:00 EDT, [facility] #[id number], Partial fill upon patient request if the [...] liters by nasal cannula at night, [facility] Start Date: 01/29/08 Status: Ordered Pen [place], 31 G x 5 mm BD Ultra Fine III See Instructions, # 400 each, Refills 3, Tot. Refills 3, Maintenance, e11.9, for use with novolog flexpen and lantus solostar pen 4 times a day, 10/07/21 16:04:00 EDT, Compound, 153, cm, 07/08/20 15:22:00 EDT, Height Start Date: 10/07/21 Stop Date: 10/02/22 Status: Ordered Pen [place], 32 G x 4 mm BD Ultra [...] bilateral wrist splints for carpal tunnel, [facility] Start Date: 12/27/07 Status: Ordered Symbicort 160mcg-4.5mcg Inhaler Inhalation, 2 times a day, Maintenance, 01/14/15 14:00:43 Start Date: 01/14/15 Status: Ordered vibegron 75 mg oral tablet 1 tablet = 75 mg, By Mouth, Daily, # 30 tablet, 2 Refills, Maintenance, 07/29/20 15:03:00 EDT, Tablet, [facility] #[id number], Partial fill upon patient request if the prescription is for a schedule II opioid drug., 153, cm, 07/08/20 15:22:00 EDT... Start Date: 07/29/20 Status: Ordered Victoza 18 mg/3 mL subcutaneous solution = 1.8 mg, Subcutaneous Infusion, Daily, # 18 mL, 1 Refills, Maintenance, 10/22/21 13:42:00 EDT, [facility] #[id number], e11.65, 153, cm, 07/08/20 15:22:00 EDT, Height [...] Team Personnel Name: Rito Irving MD Position: [facility] Physician (General Medicine) Member Role: PCP Address: Address: [address] [place] [id number] [place] [address] Name: Azra CAREY, Robin Position: [facility] RN Member Role: Primary Care Nurse Care Team Related Persons Name: ROGER CABRALES Address: home [address] [address] Name: MAHNAZ LEYVA Address: [address] [place] [address]
--- OUTSIDE RECORDS SUMMARY | 2022-05-27 10:36 | XMS_ITS | Continuity of Care Document ---
Author Name Unknown Organization [facility] Address [address] [place] [address]- Care Team Providers Care Metal Melter Name Role Phone Rito Irving MD Primary Care Physician Encounter [facility] Date(s): 10/09/20 - 11/08/20 [facility] [address] [place] [address]- Attending Physician: Jr Benites Admitting Physician: AdmJr chodwhury Referring Physician: AdmtrJr Allergies, Adverse Reactions, Alerts Substance Reaction Severity [...] Refills 0, Maintenance, E11.9: Fortesting glucose levels: [facility] [address]-67, 02/06/20 16:57:00 EST, Compound, 152.4, cm, 12/22/18 [...] Refills 0, Maintenance, E11.9: Fortesting glucose levels: [facility] [address]-92, 05/27/20 14:59:00 EDT, Compound, 152.4, cm, 12/22/18 [...] mL, 11 Refills, Maintenance, 10/09/20 15:00:00 EDT, [facility] #[id number], e11.65, 153, cm, 07/08/20 15:22:00 EDT, Height Start Date: 10/09/20 Status: Ordered Clonazepam 1, mg, By Mouth, 2 times a day, 0, 0, 05/16/07 1:47:09, Print JOE Number, [id number], Constant Indicator Start Date: 05/16/07 Status: Ordered [...] Refills, Maintenance, 07/15/20 8:40:00 EDT, ER Tablet, [facility] #[id number], Partial fill upon patient request if the [...] mL, 5 Refills, Maintenance, 07/30/20 12:48:00 EDT, [facility] #[id number], E11.65, appointment needed, 153,cm, 07/08/20 15:22:00 EDT, [...] OPPT Start Date: 01/29/08 Status: Ordered Pen [place], 31 G x 5 mm BD Ultra Fine III See Instructions, # 400 each, Refills 2, Tot. Refills 2, Maintenance, for use with novolog flexpen and lantus solostar pen 4 times a day, 07/30/20 12:48:00 EDT, Compound, 153, cm, 07/08/20 15:22:00 EDT, Height Start Date: 07/30/20 Stop Date: 04/26/21 Status: Ordered Pen [place], 32 G x 4 mm BD Ultra [...] bilateral wrist splints for carpal tunnel, ADS [facility] Start Date: 12/27/07 Status: Ordered Symbicort 160mcg-4.5mcg Inhaler Inhalation, 2 times a day, Maintenance, 01/14/15 14:00:43 Start Date: 01/14/15 Status: Ordered vibegron 75 mg oral tablet 1 tablet = 75 mg, By Mouth, Daily, # 30 tablet, 2 Refills, Maintenance, 07/29/20 15:03:00 EDT, Tablet, [facility] #[id number], Partial fill upon patient request if the prescription is for a schedule II opioid drug., 153, cm, 07/08/20 15:22:00 EDT... Start Date: 07/29/20 Status: Ordered Victoza 18 mg/3 mL subcutaneous solution = 1.8 mg, Subcutaneous Infusion, Daily, # 18 mL, 3 Refills, Maintenance, 10/09/20 15:00:00 EDT, [facility] #[id number], e11.65, 153, cm, 07/08/20 15:22:00 EDT, Height [...]
--- OUTSIDE RECORDS SUMMARY | 2022-05-27 10:36 | XMS_ITS | Continuity of Care Document ---
Author Name Unknown Organization [facility] ter Address [address] [place] [address]- Care Team Providers Care Terrazzo Polisher Helper Name Role Phone Rito Irving MD Primary Care Physician Encounter [facility] Date(s): 01/16/20 - 02/15/[address] [address]- Attending Physician: Jr Benites Admitting Physician: AdmJr chowdhury Referring Physician: AdmtrJr Allergies, Adverse Reactions, Alerts [...] Note: pt given record of vaccine Medications 14 day drew reader 14 day drew reader, See Instructions, # 1 each, Refills 0, Tot. Refills 0, Maintenance, E11.9: Fortesting glucose levels: [facility] [id number], 02/06/20 16:57:00 EST, Compound, 152.4, cm, 12/22/18 9:07:00 EDT, Height Start Date: 02/06/20 Status: Ordered 14 day drew sensor 14 day drew sensor, See Instructions, # 2 each, Refills 11, Tot. Refills 11, Maintenance, E 11.9: for testing glucose lev els. [facility] [address]-27, 02/06/20 16:57:00 EST, Compound, 152.4, cm, 199:07:00 EDT, Height Start Date: 02/06/20 Status: Ordered AccuChek Fast Clix Lancets AccuChek [...] 0, 0, 05/16/07 1:47:09, Print JOE Number, [id number], Constant Indicator Start Date: 05/16/07 Status: Ordered [...] OPPT Start Date: 01/29/08 Status: Ordered Pen [place], 31 G x 5 mm BD Ultra Fine III See Instructions, # 400 each, Refills 2, Tot. Refills 2, Maintenance, for use with novolog flexpen and lantus solostar pen 4 times a day, 10/01/12 14:15:51, Compound Start Date: 10/01/12 Stop Date: 06/28/13 Status: Ordered Pen [place], 32 G x 4 mm BD Ultra [...]
--- OUTSIDE RECORDS SUMMARY | 2022-05-27 10:37 | XMS_ITS | Continuity of Care Document ---
Author Name Unknown Organization [facility] ter Address [address] [place] [address]- Care Team Providers Care Superintendent Recreation Name Role Phone Rito Irving MD Primary Care Physician Encounter [facility] [id number] Date(s): 02/25/21 - 05/29/[address] [address]- Attending Physician: Alejandro Muller MD Admitting Physician: Alejandro Muller MD Referring Physician: Rito Irving MD Allergies, Adverse Reactions, Alerts Substance Reaction [...] Refills 0, Maintenance, E11.9: Fortesting glucose levels: [facility] [address]-95, 02/06/20 16:57:00 EST, Compound, 152.4, cm, 12/22/18 [...] Refills 0, Maintenance, E11.9: Fortesting glucose levels: [facility] [address]-65, 05/27/20 14:59:00 EDT, Compound, 152.4, cm, 12/22/18 [...] 15:30:39, Tablet Start Date: 04/30/13 Status: Ordered Clonazepam 1, mg, By Mouth, 2 times a day, 0, 0, 05/16/07 1:47:09, Print JOE Number, [id number], Constant Indicator Start Date: 05/16/07 Status: Ordered [...] Refills, Maintenance, 07/15/20 8:40:00 EDT, ER Tablet, [facility] #[id number], Partial fill upon patient request if the [...] Solostar Pen 100 units/mL subcutaneous solution = 58 units, Subcutaneous Injection, Daily, # 10 mL, 6 Refills, Maintenance, 02/28/21 22:25:00 EST, Solution, [facility] #[id number], Partial fill upon patient request if the prescription is for a schedule II opioid drug., 153, cm, 07/08/20 15:22:... Start Date: 02/28/21 Status: Ordered Lidoderm 5% film 1 patch, [...] mL, 5 Refills, Maintenance, 01/06/21 23:20:00 EDT, [facility] Start Date: 01/06/21 Status: Ordered Omeprazole By Mouth, Daily, 0 Refills, Maintenance, 01/14/15 14:01:19 Start Date: 01/14/15 Status: Ordered Oxycodone = 5 mg, By Mouth, PRN as needed for pain, 0 Refills, Maintenance, 05/19/14 16:22:30 Start Date: 05/19/14 Status: Ordered Oxygen Supplies See Instructions, 0, 0, 01/29/08 16:46:30, 2 liters by nasal cannula at night, ADS [facility] Start Date: 01/29/08 Status: Ordered Pen [place], 31 G x 5 mm BD Ultra Fine III See Instructions, # 400 each, Refills 2, Tot. Refills 2, Maintenance, for use with novolog flexpen and lantus solostar pen 4 times a day, 07/30/20 12:48:00 EDT, Compound, 153, cm, 07/08/20 15:22:00 EDT, Height Start Date: 07/30/20 Stop Date: 04/26/21 Status: Ordered Pen [place], 32 G x 4 mm BD Ultra [...] 2 Refills, Maintenance, 07/29/20 15:03:00 EDT, Tablet, [facility] #[id number], Partial fill upon patient request if the prescription is for a schedule II opioid drug., 153, cm, 07/08/20 15:22:00 EDT... Start Date: 07/29/20 Status: Ordered Victoza 18 mg/3 mL subcutaneous solution = 1.8 mg, Subcutaneous Infusion, Daily, for 90 days, # 18 mL, 3 Refills, Hard Stop 10/04/21 15:00:00 EDT, 10/09/20 15:00:00 EDT, [facility] #[id number], e11.65, 153, cm, 07/08/20 15:22:00 EDT, Height Start Date: 10/09/20 Stop Date: 10/04/21 Status: Ordered Victoza 18 mg/3 mL subcutaneous solution = 1.8 mg, Subcutaneous Infusion, Daily, # 18 mL, 1 Refills, Maintenance, 10/04/21 15:00:00 EDT, [facility] #[id number], e11.65, 153, cm, 07/08/20 15:22:00 EDT, Height [...]
--- OUTSIDE RECORDS SUMMARY | 2022-05-27 10:37 | XMS_ITS | Continuity of Care Document ---
Author Name Unknown Organization [facility] Address [address] [place] [address]- Care Team Providers Care Baker Head Name Role Phone Rito Irving MD Primary Care Physician Encounter [facility] Date(s): 04/19/22 - 05/19/22 [facility] [address] [place] [id number] Allergies, Adverse Reactions, Alerts Substance Reaction Severity [...] Refills 0, Maintenance, E11.9: Fortesting glucose levels: [facility] [address]-97, 02/06/20 16:57:00 EST, Compound, 152.4, cm, 12/22/18 [...] Refills 0, Maintenance, E11.9: Fortesting glucose levels: [facility] [address]-06, 05/27/20 14:59:00 EDT, Compound, 152.4, cm, 12/22/18 [...] 6 Refills, Soft Stop, 06/12/21 11:36:00 EDT, [facility] #[id number], Partial fill upon patient request if the prescription is for a schedule II opioid drug., 153, cm, 07/08/20 15:22:00 EDT, Height Start Date: 06/12/21 Status: Ordered Basaglar KwikPen 100 units/mL subcutaneous solution See Instructions, Subcutaneous Injection 54 U QD DX E11.65, # 20 mL, 6 Refills, Maintenance, 07/27/21 14:05:00 EDT, [facility] #[id number], Partial fill upon patient request if the prescription is for a schedule II opioid drug., 153, cm, 05/0... Start Date: 07/27/21 Status: Ordered Clonazepam 1, mg, By Mouth, 2 times a day, 0, 0, 05/16/07 1:47:09, Print JOE Number, [id number], Constant Indicator Start Date: 05/16/07 Status: Ordered [...] Refills, Maintenance, 07/15/20 8:40:00 EDT, ER Tablet, [facility] #[id number], Partial fill upon patient request if the [...] mL, 4 Refills, Maintenance, 04/19/22 11:00:00 EST, [facility] #[id number], 153, cm, ... Start Date: 04/19/22 Status: Ordered Lantus Solostar Pen 100 units/mL subcutaneous solution = 70 units, Daily at bedtime, 0 Refills Start Date: 03/02/09 Stop Date: 03/31/09 Status: Ordered Lantus Solostar Pen 100 units/mL subcutaneous solution See Instructions, Subcutaneous Injection QD 54 U Dx E11.65 FILL [facility] ONLY, # 30 mL, 6 Refills, Maintenance, 08/03/21 17:11:00 EDT, [facility] #[id number], Partial fill upon patient request if the [...] OPPTHS Start Date: 01/29/08 Status: Ordered Pen [place], 31 G x 5 mm BD Ultra Fine III See Instructions, # 400 each, Refills 3, Tot. Refills 3, Maintenance, e11.9, for use with novolog flexpen and lantus solostar pen 4 times a day, 10/07/21 16:04:00 EDT, Compound, 153, cm, 07/08/20 15:22:00 EDT, Height Start Date: 10/07/21 Stop Date: 10/02/22 Status: Ordered Pen [place], 32 G x 4 mm BD Ultra [...] 2 Refills, Maintenance, 07/29/20 15:03:00 EDT, Tablet, [facility] #[id number], Partial fill upon patient request if the prescription is for a schedule II opioid drug., 153, cm, 07/08/20 15:22:00 EDT... Start Date: 07/29/20 Status: Ordered Victoza 18 mg/3 mL subcutaneous solution = 1.8 mg, Subcutaneous Infusion, Daily, # 18 mL, 1 Refills, Maintenance, 10/22/21 13:42:00 EDT, [facility] #[id number], e11.65, 153, cm, 07/08/20 15:22:00 EDT, Height [...] Care team information Care Team Personnel Name: Aristides HUGHES, Rito Saez Position: [facility] Physician (General Medicine) Member Role: PCP Address: Address: [address] [place] [address] Name: Robin Oquendo RN Position: [facility] SN RN Member Role: Primary Care Nurse Care Team Related Persons Name: ROGER CABRALES Address: home [address] [address] Name: MAHNAZ LEYVA Address: home [address] [place] [address]
--- OUTSIDE RECORDS SUMMARY | 2022-05-27 10:37 | XMS_ITS | Continuity of Care Document ---
Author Name Unknown Organization [facility] Address [address], [address] [place] [address]- Care Team Providers Care Carbon Rod Inserter Name Role Phone Rito Irving MD S Primary Care Physician Encounter [facility] Date(s): 07/29/20 - 08/28/20 [facility] [address], [address] [place] [address]- Allergies, Adverse Reactions, Alerts Substance Reaction Severity [...] Refills 0, Maintenance, E11.9: Fortesting glucose levels: [facility] [address]-85, 02/06/20 16:57:00 EST, Compound, 152.4, cm, 12/22/18 [...] Refills 0, Maintenance, E11.9: Fortesting glucose levels: [facility] [address]-13, 05/27/20 14:59:00 EDT, Compound, 152.4, cm, 12/22/18 [...] 0, 0, 05/16/07 1:47:09, Print JOE Number, [id number], Constant Indicator Start Date: 05/16/07 Status: Ordered [...] Refills, Maintenance, 07/15/20 8:40:00 EDT, ER Tablet, [facility] #[id number], Partial fill upon patient request if the [...] Refills 6, Tot. Refills 6, Maintenance, Dx 11., 03/13/20 17:16:00 EST, Supply Start Date: 03/13/20 [...] mL, 5 Refills, Maintenance, 07/30/20 12:48:00 EDT, [facility] #[id number], E11.65, appointment needed, 153,cm, 07/08/20 15:22:00 EDT, [...] liters by nasal cannula at night, [facility]S [facility] Start Date: 01/29/08 Status: Ordered Pen [place], 31 G x 5 mm BD Ultra Fine III See Instructions, # 400 each, Refills 2, Tot. Refills 2, Maintenance, for use with novolog flexpen and lantus solostar pen 4 times a day, 07/30/20 12:48:00 EDT, Compound, 153, cm, 07/08/20 15:22:00 EDT, Height Start Date: 07/30/20 Stop Date: 04/26/21 Status: Ordered Pen [place], 32 G x 4 mm BD Ultra [...] 2 Refills, Maintenance, 07/29/20 15:03:00 EDT, Tablet, [facility] #[id number], Partial fill upon patient request if the prescription is for a schedule II opioid drug., 153, cm, 07/08/20 15:22:00 EDT... Start Date: 07/29/20 Status: Ordered Victoza 18 mg/3 mL subcutaneous solution = 1.8 mg, Subcutaneous Infusion, Daily, # 18 mL, 3 Refills, Maintenance, 06/26/20 14:32:00 EDT, [facility] #[id number], e11.65, 152.4, cm, 12/22/18 9:07:00 EDT, Height [...]
--- OUTSIDE RECORDS SUMMARY | 2022-05-27 10:37 | XMS_ITS | Continuity of Care Document ---
Author Name Unknown Organization [facility] Address [address] [place] [address]- Care Team Providers Care Information Architect Name Role Phone Rito Irving MD Primary Care Physician Encounter [facility] Date(s): 08/20/20 - 09/19/20 [facility] [address] [place] [id number] Attending Physician: Jr Benites Admitting Physician: AdmJr [...] Fortesting glucose levels: [facility] [address]-98, 02/06/20 16:57:00 EST, Compound, 152.4, cm, 12/22/18 [...] Fortesting glucose levels: [facility] [address]-13, 05/27/20 14:59:00 EDT, Compound, 152.4, cm, 12/22/18 [...] 0, 0, 05/16/07 1:47:09, Print JOE Number, [id number], Constant Indicator Start Date: 05/16/07 Status: Ordered [...] Refills, Maintenance, 07/15/20 8:40:00 EDT, ER Tablet, [facility] #[id number], Partial fill upon patient request if the [...] mL, 5 Refills, Maintenance, 07/30/20 12:48:00 EDT, [facility] #[id number], E11.65, appointment needed, 153,cm, 07/08/20 15:22:00 EDT, [...] OPPT Start Date: 01/29/08 Status: Ordered Pen [place], 31 G x 5 mm BD Ultra Fine III See Instructions, # 400 each, Refills 2, Tot. Refills 2, Maintenance, for use with novolog flexpen and lantus solostar pen 4 times a day, 07/30/20 12:48:00 EDT, Compound, 153, cm, 07/08/20 15:22:00 EDT, Height Start Date: 07/30/20 Stop Date: 04/26/21 Status: Ordered Pen [place], 32 G x 4 mm BD Ultra [...] 2 Refills, Maintenance, 07/29/20 15:03:00 EDT, Tablet, [facility] #[id number], Partial fill upon patient request if the prescription is for a schedule II opioid drug., 153, cm, 07/08/20 15:22:00 EDT... Start Date: 07/29/20 Status: Ordered Victoza 18 mg/3 mL subcutaneous solution = 1.8 mg, Subcutaneous Infusion, Daily, # 18 mL, 3 Refills, Maintenance, 06/26/20 14:32:00 EDT, [facility] #[id number], e11.65, 152.4, cm, 12/22/18 9:07:00 EDT, Height [...]
--- OUTSIDE RECORDS SUMMARY | 2022-05-27 10:37 | XMS_ITS | Continuity of Care Document ---
Author Name Unknown Organization [facility] Address [address] [place] [address], [address] [place] [address]- Care Team Providers Care Bight Maker Name Role Phone Rito Irving MD Primary Care Physician [place] [facility] [place](s): 09/22/21 - 10/22/21 [facility] [address] [place], [place] [address] Attending Physician: AdmJr chowdhury Admitting Physician: AdmtrJr Referring Physician: Admtr, Jr Allergies, Adverse Reactions, Alerts Substance Reaction Severity [...] Refills 0, Maintenance, E11.9: Fortesting glucose levels: [facility] [address]-00, 02/06/20 16:57:00 EST, Compound, 152.4, cm, 12/22/18 [...] Refills 0, Maintenance, E11.9: Fortesting glucose levels: [facility] [address]-93, 05/27/20 14:59:00 EDT, Compound, 152.4, cm, 12/22/18 [...] 6 Refills, Soft Stop, 06/12/21 11:36:00 EDT, [facility] #[id number], Partial fill upon patient request if the prescription is for a schedule II opioid drug., 153, cm, 07/08/20 15:22:00 EDT, Height Start Date: 06/12/21 Status: Ordered Basaglar KwikPen 100 units/mL subcutaneous solution See Instructions, Subcutaneous Injection 54 U QD DX E11.65, # 20 mL, 6 Refills, Maintenance, 07/27/21 14:05:00 EDT, [facility] #[id number], Partial fill upon patient request if the prescription is for a schedule II opioid drug., 153, cm, 05/0... Start Date: 07/27/21 Status: Ordered Clonazepam 1, mg, By Mouth, 2 times a day, 0, 0, 05/16/07 1:47:09, Print JOE Number, [id number], Constant Indicator Start Date: 05/16/07 Status: Ordered [...] Refills, Maintenance, 07/15/20 8:40:00 EDT, ER Tablet, [facility] #[id number], Partial fill upon patient request if the [...] mL, 6 Refills, Maintenance, 08/03/21 17:11:00 EDT, [facility] #[id number], Partial fill upon patient request if the [...] mL, 5 Refills, Maintenance, 01/06/21 23:20:00 [facility] Start Date: 01/06/21 Status: Ordered Omeprazole By Mouth, Daily, 0 Refills, Maintenance, 01/14/15 14:01:19 Start Date: 01/14/15 Status: Ordered Oxycodone = 5 mg, By Mouth, PRN as needed for pain, 0 Refills, Maintenance, 05/19/14 16:22:30 Start Date: 05/19/14 Status: Ordered Oxygen Supplies See Instructions, 0, 0, 01/29/08 16:46:30, 2 liters by nasal cannula at night, [facility] Start Date: 01/29/08 Status: Ordered Pen [place], 31 G x 5 mm BD Ultra Fine III See Instructions, # 400 each, Refills 3, Tot. Refills 3, Maintenance, e11.9, for use with novolog flexpen and lantus solostar pen 4 times a day, 10/07/21 16:04:00 EDT, Compound, 153, cm, 07/08/20 15:22:00 EDT, Height Start Date: 10/07/21 Stop Date: 10/02/22 Status: Ordered Pen [place], 32 G x 4 mm BD Ultra [...] 8:56:45, bilateral wrist splints for carpal tunnel, [facility] Start Date: 12/27/07 Status: Ordered Symbicort 160mcg-4.5mcg Inhaler Inhalation, 2 times a day, Maintenance, 01/14/15 14:00:43 Start Date: 01/14/15 Status: Ordered vibegron 75 mg oral tablet 1 tablet = 75 mg, By Mouth, Daily, # 30 tablet, 2 Refills, Maintenance, 07/29/20 15:03:00 EDT, Tablet, [facility] #[id number], Partial fill upon patient request if the prescription is for a schedule II opioid drug., 153, cm, 07/08/20 15:22:00 EDT... Start Date: 07/29/20 Status: Ordered Victoza 18 mg/3 mL subcutaneous solution = 1.8 mg, Subcutaneous Infusion, Daily, # 18 mL, 1 Refills, Maintenance, 10/22/21 13:42:00 EDT, [facility] #[id number], e11.65, 153, cm, 07/08/20 15:22:00 EDT, Height [...]
--- OUTSIDE RECORDS SUMMARY | 2022-05-27 10:37 | XMS_ITS | Continuity of Care Document ---
Author Name Unknown Organization [facility] Address [address] [place] [address]- Care Team Providers Care Scleroscope Tester Name Role Phone Rito Irving MD Primary Care Physician Encounter [facility] Date(s): 05/11/21 - 06/10/21 [facility] [address] [place] [address]- Allergies, Adverse Reactions, Alerts Substance Reaction Severity [...] 0, Maintenance, E11.9: Fortesting glucose levels: [facility] [address]-02, 02/06/20 16:57:00 EST, Compound, 152.4, cm, 12/22/18 [...] 0, Maintenance, E11.9: Fortesting glucose levels: [facility] [address]-98, 05/27/20 14:59:00 EDT, Compound, 152.4, cm, 12/22/18 [...] 0, 0, 05/16/07 1:47:09, Print JOE Number, [id number], Constant Indicator Start Date: 05/16/07 Status: Ordered [...] Refills, Maintenance, 07/15/20 8:40:00 EDT, ER Tablet, [facility] #[id number], Partial fill upon patient request if the [...] 6 Refills, Maintenance, 02/28/21 22:25:00 EST, Solution, [facility] #[id number], Partial fill upon patient request if the [...] liters by nasal cannula at night, [facility] Start Date: 01/29/08 Status: Ordered Pen [place], 31 G x 5 mm BD Ultra Fine III See Instructions, # 400 each, Refills 2, Tot. Refills 2, Maintenance, for use with novolog flexpen and lantus solostar pen 4 times a day, 07/30/20 12:48:00 EDT, Compound, 153, cm, 07/08/20 15:22:00 EDT, Height Start Date: 07/30/20 Stop Date: 04/26/21 Status: Ordered Pen [place], 32 G x 4 mm BD Ultra [...] 2 Refills, Maintenance, 07/29/20 15:03:00 EDT, Tablet, [email or web address] #[id number], Partial fill upon patient request if the prescription is for a schedule II opioid drug., 153, cm, 07/08/20 15:22:00 EDT... Start Date: 07/29/20 Status: Ordered Victoza 18 mg/3 mL subcutaneous solution = 1.8 mg, Subcutaneous Infusion, Daily, for 90 days, # 18 mL, 3 Refills, Hard Stop 10/04/21 15:00:00 EDT, 10/09/20 15:00:00 EDT, [facility] #[id number], e11.65, 153, cm, 07/08/20 15:22:00 EDT, Height Start Date: 10/09/20 Stop Date: 10/04/21 Status: Ordered Victoza 18 mg/3 mL subcutaneous solution = 1.8 mg, Subcutaneous Infusion, Daily, # 18 mL, 1 Refills, Maintenance, 10/04/21 15:00:00 EDT, [facility] #[id number], e11.65, 153, cm, 07/08/20 15:22:00 EDT, Height [...]
--- OUTSIDE RECORDS SUMMARY | 2022-05-27 10:37 | XMS_ITS | Continuity of Care Document ---
Author Name Unknown Organization [facility] Address [address] [place] [address]- Care Team Providers Care Engineer Of System Development Name Role Phone Rito Irving MD Primary Care Physician Encounter [facility] Date(s): 04/29/21 - 07/10/[address] [address]- Attending Physician: Alejandro Muller MD Admitting Physician: [...] Refills 0, Maintenance, E11.9: Fortesting glucose levels: [facility] [id number], 02/06/20 16:57:00 EST, Compound, 152.4, cm, 12/22/18 [...] Refills 0, Maintenance, E11.9: Fortesting glucose levels: [facility] [id number], 05/27/20 14:59:00 EDT, Compound, 152.4, cm, 12/22/18 [...] 6 Refills, Soft Stop, 06/12/21 11:36:00 EDT, [facility] #[id number], Partial fill upon patient request if the prescription is for a schedule II opioid drug., 153, cm, 07/08/20 15:22:00 EDT, Height Start Date: 06/12/21 Status: Ordered Clonazepam 1, mg, By Mouth, 2 times a day, 0, 0, 05/16/07 1:47:09, Print JOE Number, [id number], Constant Indicator Start Date: 05/16/07 Status: Ordered [...] Refills, Maintenance, 07/15/20 8:40:00 EDT, ER Tablet, [facility] #[id number], Partial fill upon patient request if the [...] 6 Refills, Maintenance, 02/28/21 22:25:00 EST, Solution, [facility] #[id number], Partial fill upon patient request if the [...] OPPTHS Start Date: 01/29/08 Status: Ordered Pen [place], 31 G x 5 mm BD Ultra Fine III See Instructions, # 400 each, Refills 2, Tot. Refills 2, Maintenance, for use with novolog flexpen and lantus solostar pen 4 times a day, 07/30/20 12:48:00 EDT, Compound, 153, cm, 07/08/20 15:22:00 EDT, Height Start Date: 07/30/20 Stop Date: 04/26/21 Status: Ordered Pen [place], 32 G x 4 mm BD Ultra [...] 2 Refills, Maintenance, 07/29/20 15:03:00 EDT, Tablet, [facility] #[id number], Partial fill upon patient request if the prescription is for a schedule II opioid drug., 153, cm, 07/08/20 15:22:00 EDT... Start Date: 07/29/20 Status: Ordered Victoza 18 mg/3 mL subcutaneous solution = 1.8 mg, Subcutaneous Infusion, Daily, for 90 days, # 18 mL, 3 Refills, Hard Stop 10/04/21 15:00:00 EDT, 10/09/20 15:00:00 EDT, [facility] #[id number], e11.65, 153, cm, 07/08/20 15:22:00 EDT, Height Start Date: 10/09/20 Stop Date: 10/04/21 Status: Ordered Victoza 18 mg/3 mL subcutaneous solution = 1.8 mg, Subcutaneous Infusion, Daily, # 18 mL, 1 Refills, Maintenance, 10/04/21 15:00:00 EDT, [facility] #[id number], e11.65, 153, cm, 07/08/20 15:22:00 EDT, Height [...]
--- OUTSIDE RECORDS SUMMARY | 2022-05-27 10:37 | XMS_ITS | Continuity of Care Document ---
Author Name Unknown Organization [facility] ter Address [address] [place] [address]- Care Team Providers Care Flakeboard Line Tender Name Role Phone Rito Irving MD Primary Care Physician Encounter [facility] Date(s): 06/25/19 - 08/09/[address] [address]- [facility] Attending Physician: Yohana HUGHES, Ib[place] Referring Physician: Rito Irving MD Allergies, Adverse [...] 0, 0, 05/16/07 1:47:09, Print JOE Number, [id number], Constant Indicator Start Date: 05/16/07 Status: Ordered [...] 2 liters by nasal cannula at night, [facility] Start Date: 01/29/08 Status: Ordered Pen [place], 31 G x 5 mm BD Ultra Fine III See Instructions, # 400 each, Refills 2, Tot. Refills 2, Maintenance, for use with novolog flexpen and lantus solostar pen 4 times a day, 10/01/12 14:15:51, Compound Start Date: 10/01/12 Stop Date: 06/28/13 Status: Ordered Pen [place], 32 G x 4 mm BD Ultra [...] 8:56:45, bilateral wrist splints for carpal tunnel, [facility] Start Date: 12/27/07 Status: Ordered Symbicort [...]
--- OUTSIDE RECORDS SUMMARY | 2022-05-27 10:37 | XMS_ITS | Continuity of Care Document ---
Author Name Unknown Organization [facility] Address [address] [place] [address]- Care Team Providers Care Labor Law Professor Name Role Phone Rito Irving MD Primary Care Physician Encounter [facility] Date(s): 06/10/21 - 07/10/21 [facility] [address] [place] [id number] Allergies, Adverse Reactions, Alerts Substance Reaction [...] Refills 0, Maintenance, E11.9: Fortesting glucose levels: [facility] [id number], 02/06/20 16:57:00 EST, Compound, 152.4, cm, 12/22/18 [...] Refills 0, Maintenance, E11.9: Fortesting glucose levels: [facility] [id number], 05/27/20 14:59:00 EDT, Compound, 152.4, cm, 12/22/18 [...] 6 Refills, Soft Stop, 06/12/21 11:36:00 EDT, [facility] #[id number], Partial fill upon patient request if the prescription is for a schedule II opioid drug., 153, cm, 07/08/20 15:22:00 EDT, Height Start Date: 06/12/21 Status: Ordered Clonazepam 1, mg, By Mouth, 2 times a day, 0, 0, 05/16/07 1:47:09, Print JOE Number, [id number], Constant Indicator Start Date: 05/16/07 Status: Ordered [...] Refills, Maintenance, 07/15/20 8:40:00 EDT, ER Tablet, [facility] #[id number], Partial fill upon patient request if the [...] 6 Refills, Maintenance, 02/28/21 22:25:00 EST, Solution, [facility] #[id number], Partial fill upon patient request if the [...] OPPT Start Date: 01/29/08 Status: Ordered Pen [place], 31 G x 5 mm BD Ultra Fine III See Instructions, # 400 each, Refills 2, Tot. Refills 2, Maintenance, for use with novolog flexpen and lantus solostar pen 4 times a day, 07/30/20 12:48:00 EDT, Compound, 153, cm, 07/08/20 15:22:00 EDT, Height Start Date: 07/30/20 Stop Date: 04/26/21 Status: Ordered Pen [place], 32 G x 4 mm BD Ultra [...] 2 Refills, Maintenance, 07/29/20 15:03:00 EDT, Tablet, [facility] #[id number], Partial fill upon patient request if the prescription is for a schedule II opioid drug., 153, cm, 07/08/20 15:22:00 EDT... Start Date: 07/29/20 Status: Ordered Victoza 18 mg/3 mL subcutaneous solution = 1.8 mg, Subcutaneous Infusion, Daily, for 90 days, # 18 mL, 3 Refills, Hard Stop 10/04/21 15:00:00 EDT, 10/09/20 15:00:00 EDT, [facility] #[id number], e11.65, 153, cm, 07/08/20 15:22:00 EDT, Height Start Date: 10/09/20 Stop Date: 10/04/21 Status: Ordered Victoza 18 mg/3 mL subcutaneous solution = 1.8 mg, Subcutaneous Infusion, Daily, # 18 mL, 1 Refills, Maintenance, 10/04/21 15:00:00 EDT, [facility] #[id number], e11.65, 153, cm, 07/08/20 15:22:00 EDT, Height [...]
--- OUTSIDE RECORDS SUMMARY | 2022-05-27 10:37 | XMS_ITS | Continuity of Care Document ---
Author Name Unknown Organization [facility] Address [address] [place] [address]- Care Team Providers Care Rug Dyer Name Role Phone Rito Irving MD Primary Care Physician Encounter [facility] [place] Date(s): 03/13/20 - 04/12/20 [facility] [address] [place] [address] Attending Physician: Jr Benites Admitting Physician: AdmJr [...] 0, Tot. Refills 0, Maintenance, Dx 11.42, 03/13/20 17:18:00 EST, Supply Start Date: 03/13/20 Status: Ordered 14 day drew reader 14 day drew reader, See Instructions, # 1 each, Refills 0, Tot. Refills 0, Maintenance, E11.9: Fortesting glucose levels: [facility] [id number], 02/06/20 16:57:00 EST, Compound, 152.4, cm, 12/22/18 9:07:00 EDT, Height Start Date: 02/06/20 Status: Ordered 14 day drew sensor 14 day drew sensor, See Instructions, # 2 each, Refills 11, Tot. Refills 11, Maintenance, E 11.9: for testing glucose lev els. [facility] [id number], 02/06/20 16:57:00 EST, Compound, 152.4, cm, 199:07:00 [...] 0, 0, 05/16/07 1:47:09, Print JOE Number, [id number], Constant Indicator Start Date: 05/16/07 Status: Ordered [...] OPPT Start Date: 01/29/08 Status: Ordered Pen [place], 31 G x 5 mm BD Ultra Fine III See Instructions, # 400 each, Refills 2, Tot. Refills 2, Maintenance, for use with novolog flexpen and lantus solostar pen 4 times a day, 10/01/12 14:15:51, Compound Start Date: 10/01/12 Stop Date: 06/28/13 Status: Ordered Pen [place], 32 G x 4 mm BD Ultra [...] mL, 3 Refills, Maintenance, 06/26/20 14:32:00 EDT, [facility] #[id number], e11.65, 152.4, cm, 12/22/18 9:07:00 EDT, Height Start Date: 06/26/20 Stop Date: 06/21/21 Status: Ordered Victoza 18 mg/3 mL subcutaneous solution = 1.8 mg, Subcutaneous Infusion, Daily, for 90 days, appointment needed, # 18 mL, 5 Refills, Hard Stop 06/26/20 14:32:15 EDT, 01/03/19 14:32:15 EDT, [facility] #[id number], e11.65 Start Date: 01/03/19 Stop Date: 06/26/20 [...]
--- OUTSIDE RECORDS SUMMARY | 2022-05-27 10:37 | XMS_ITS | Continuity of Care Document ---
Author Name Unknown Organization [facility] Address [address] [place] [address]- Care Team Providers Care Public Health Technologist Name Role Phone Rito Irving MD Primary Care Physician Encounter [facility] Date(s): 08/06/21 - 09/05/21 [facility] [address] [place] [id number] Allergies, Adverse Reactions, Alerts Substance Reaction [...] Refills 0, Maintenance, E11.9: Fortesting glucose levels: [facility] [id number], 02/06/20 16:57:00 EST, Compound, 152.4, cm, 12/22/18 [...] Refills 0, Maintenance, E11.9: Fortesting glucose levels: [facility] [id number], 05/27/20 14:59:00 EDT, Compound, 152.4, cm, 12/22/18 [...] 6 Refills, Soft Stop, 06/12/21 11:36:00 EDT, [facility] #[id number], Partial fill upon patient request if the prescription is for a schedule II opioid drug., 153, cm, 07/08/20 15:22:00 EDT, Height Start Date: 06/12/21 Status: Ordered Basaglar KwikPen 100 units/mL subcutaneous solution See Instructions, Subcutaneous Injection 54 U QD DX E11.65, # 20 mL, 6 Refills, Maintenance, 07/27/21 14:05:00 EDT, [facility] #[id number], Partial fill upon patient request if the prescription is for a schedule II opioid drug., 153, cm, 050... Start Date: 07/27/21 Status: Ordered Clonazepam 1, mg, By Mouth, 2 times a day, 0, 0, 05/16/07 1:47:09, Print JOE Number, [id number], Constant Indicator Start Date: 05/16/07 Status: Ordered [...] Refills, Maintenance, 07/15/20 8:40:00 EDT, ER Tablet, [facility] #[id number], Partial fill upon patient request if the [...] mL, 6 Refills, Maintenance, 08/03/21 17:11:00 EDT, [facility] #[id number], Partial fill upon patient request if the [...] mL, 5 Refills, Maintenance, 01/06/21 23:20:00 EDT, [facility]... Start Date: 01/06/21 Status: Ordered Omeprazole By Mouth, Daily, 0 Refills, Maintenance, 01/14/15 14:01:19 Start Date: 01/14/15 Status: Ordered Oxycodone = 5 mg, By Mouth, PRN as needed for pain, 0 Refills, Maintenance, 05/19/14 16:22:30 Start Date: 05/19/14 Status: Ordered Oxygen Supplies See Instructions, 0, 0, 01/29/08 16:46:30, 2 liters by nasal cannula at night, [facility] Start Date: 01/29/08 Status: Ordered Pen [place], 31 G x 5 mm BD Ultra Fine III See Instructions, # 400 each, Refills 2, Tot. Refills 2, Maintenance, for use with novolog flexpen and lantus solostar pen 4 times a day, 07/30/20 12:48:00 EDT, Compound, 153, cm, 07/08/20 15:22:00 EDT, Height Start Date: 07/30/20 Stop Date: 04/26/21 Status: Ordered Pen [place], 32 G x 4 mm BD [...] 8:56:45, bilateral wrist splints for carpal tunnel, [facility] Start Date: 12/27/07 Status: Ordered Symbicort 160mcg-4.5mcg Inhaler Inhalation, 2 times a day, Maintenance, 01/14/15 14:00:43 Start Date: 01/14/15 Status: Ordered vibegron 75 mg oral tablet 1 tablet = 75 mg, By Mouth, Daily, # 30 tablet, 2 Refills, Maintenance, 07/29/20 15:03:00 EDT, Tablet, [facility] #[id number], Partial fill upon patient request if the prescription is for a schedule II opioid drug., 153, cm, 07/08/20 15:22:00 EDT... Start Date: 07/29/20 Status: Ordered Victoza 18 mg/3 mL subcutaneous solution = 1.8 mg, Subcutaneous Infusion, Daily, for 90 days, # 18 mL, 3 Refills, Hard Stop 10/04/21 15:00:00 EDT, 10/09/20 15:00:00 EDT, [facility] #[id number], e11.65, 153, cm, 07/08/20 15:22:00 EDT, Height Start Date: 10/09/20 Stop Date: 10/04/21 Status: Ordered Victoza 18 mg/3 mL subcutaneous solution = 1.8 mg, Subcutaneous Infusion, Daily, # 18 mL, 1 Refills, Maintenance, 10/04/21 15:00:00 EDT, [facility] #[id number], e11.65, 153, cm, 07/08/20 15:22:00 EDT, Height [...]
--- OUTSIDE RECORDS SUMMARY | 2022-05-27 10:37 | XMS_ITS | Continuity of Care Document ---
Author Name Unknown Organization [facility] Address [address] [place] [address]- Care Team Providers Care Needle Punch Operator Name Role Phone Rito Irving MD Primary Care Physician Encounter [facility] [place] Date(s): 03/10/20 - 04/09/20 [facility] [address] [place] [address]- Allergies, Adverse Reactions, Alerts Substance Reaction Severity [...] Refills 0, Maintenance, E11.9: Fortesting glucose levels: [facility] [id number], 02/06/20 16:57:00 EST, Compound, 152.4, cm, 12/22/18 9:07:00 EDT, Height Start Date: 02/06/20 Status: Ordered 14 day drew sensor 14 day drew sensor, See Instructions, # 2 each, Refills 11, Tot. Refills 11, Maintenance, E 11.9: for testing glucose lev els. [facility] [id number], 02/06/20 16:57:00 EST, Compound, 152.4, cm, 199:07:00 [...] 0, 0, 05/16/07 1:47:09, Print JOE Number, [id number], Constant Indicator Start Date: 05/16/07 Status: Ordered [...] OPPT Start Date: 01/29/08 Status: Ordered Pen [place], 31 G x 5 mm BD Ultra Fine III See Instructions, # 400 each, Refills 2, Tot. Refills 2, Maintenance, for use with novolog flexpen and lantus solostar pen 4 times a day, 10/01/12 14:15:51, Compound Start Date: 10/01/12 Stop Date: 06/28/13 Status: Ordered Pen [place], 32 G x 4 mm BD Ultra [...] mL, 3 Refills, Maintenance, 06/26/20 14:32:00 EDT, [facility] #[id number], e11.65, 152.4, cm, 12/22/18 9:07:00 EDT, Height Start Date: 06/26/20 Stop Date: 06/21/21 Status: Ordered Victoza 18 mg/3 mL subcutaneous solution = 1.8 mg, Subcutaneous Infusion, Daily, for 90 days, appointment needed, # 18 mL, 5 Refills, Hard Stop 06/26/20 14:32:15 EDT, 01/03/19 14:32:15 EDT, [facility] #[id number], e11.65 Start Date: 01/03/19 Stop Date: 06/26/20 [...]
--- OUTSIDE RECORDS SUMMARY | 2022-05-27 10:37 | XMS_ITS | Continuity of Care Document ---
Author Name Unknown Organization [facility] Address [address] [place] [address]- Care Team Providers Care Cyber Forensic Specialist Name Role Phone Rito Irving MD Primary Care Physician Encounter [facility] [place] Date(s): 07/24/20 - 08/23/20 [facility] [address] [place] [id number]- Allergies, Adverse Reactions, Alerts Substance Reaction Severity [...] Refills 0, Maintenance, E11.9: Fortesting glucose levels: [facility] [id number], 02/06/20 16:57:00 EST, Compound, 152.4, cm, 12/22/18 [...] Refills 0, Maintenance, E11.9: Fortesting glucose levels: [facility] [id number], 05/27/20 14:59:00 EDT, Compound, 152.4, cm, 12/22/18 [...] 0, 0, 05/16/07 1:47:09, Print JOE Number, [id number], Constant Indicator Start Date: 05/16/07 Status: Ordered [...] Refills, Maintenance, 07/15/20 8:40:00 EDT, ER Tablet, [facility] #[id number], Partial fill upon patient request if the [...] mL, 5 Refills, Maintenance, 07/30/20 12:48:00 EDT, [facility] #[id number], E11.65, appointment needed, 153,cm, 07/08/20 15:22:00 EDT, [...] OPPT Start Date: 01/29/08 Status: Ordered Pen [place], 31 G x 5 mm BD Ultra Fine III See Instructions, # 400 each, Refills 2, Tot. Refills 2, Maintenance, for use with novolog flexpen and lantus solostar pen 4 times a day, 07/30/20 12:48:00 EDT, Compound, 153, cm, 07/08/20 15:22:00 EDT, Height Start Date: 07/30/20 Stop Date: 04/26/21 Status: Ordered Pen [place], 32 G x 4 mm BD Ultra [...] 2 Refills, Maintenance, 07/29/20 15:03:00 EDT, Tablet, [facility] #[id number], Partial fill upon patient request if the prescription is for a schedule II opioid drug., 153, cm, 07/08/20 15:22:00 EDT... Start Date: 07/29/20 Status: Ordered Victoza 18 mg/3 mL subcutaneous solution = 1.8 mg, Subcutaneous Infusion, Daily, # 18 mL, 3 Refills, Maintenance, 06/26/20 14:32:00 EDT, [facility] #[id number], e11.65, 152.4, cm, 12/22/18 9:07:00 EDT, Height [...]
--- OUTSIDE RECORDS SUMMARY | 2022-05-27 10:37 | XMS_ITS | Continuity of Care Document ---
Author Name Unknown Organization [facility] ter Address [address] [place] [address]- Care Team Providers Care Enterer Name Role Phone Rito Irving MD Primary Care Physician Encounter [facility] [id number] Date(s): 10/08/19 - 11/07/[address] [address]- [facility] Attending Physician: Jr Benites Admitting Physician: AdmtrJr Referring Physician: AdmtrJr Allergies, Adverse Reactions, Alerts [...] 0, 0, 05/16/07 1:47:09, Print JOE Number, [id number], Constant Indicator Start Date: 05/16/07 Status: Ordered [...] 2 liters by nasal cannula at night, [facility] Start Date: 01/29/08 Status: Ordered Pen [place], 31 G x 5 mm BD Ultra Fine III See Instructions, # 400 each, Refills 2, Tot. Refills 2, Maintenance, for use with novolog flexpen and lantus solostar pen 4 times a day, 10/01/12 14:15:51, Compound Start Date: 10/01/12 Stop Date: 06/28/13 Status: Ordered Pen [place], 32 G x 4 mm BD Ultra [...] 8:56:45, bilateral wrist splints for carpal tunnel, [facility] Start Date: 12/27/07 Status: Ordered Symbicort [...]
--- OUTSIDE RECORDS SUMMARY | 2022-05-27 10:37 | XMS_ITS | Continuity of Care Document ---
Author Name Unknown [facility] Address [address], [address] [place] [address]- Care Team Providers Care Insole Lip Turner Name Role Phone Rito Irving MD Primary Care Physician Encounter [facility] Date(s): 07/21/21 - 09/24/21 [facility] [address], [address] [place], [place] [address] Attending Physician: Niesha Parada MD Admitting Physician: [...] 0, Maintenance, E11.9: Fortesting glucose levels: [facility] [id number], 02/06/20 16:57:00 EST, Compound, 152.4, cm, 12/22/18 [...] 0, Maintenance, E11.9: Fortesting glucose levels: [facility] [id number], 05/27/20 14:59:00 EDT, Compound, 152.4, cm, 12/22/18 [...] 6 Refills, Soft Stop, 06/12/21 11:36:00 EDT, [facility] #[id number], Partial fill upon patient request if the prescription is for a schedule II opioid drug., 153, cm, 07/08/20 15:22:00 EDT, Height Start Date: 06/12/21 Status: Ordered Basaglar KwikPen 100 units/mL subcutaneous solution See Instructions, Subcutaneous Injection 54 U QD DX E11.65, # 20 mL, 6 Refills, Maintenance, 07/27/21 14:05:00 EDT, [facility] #[id number], Partial fill upon patient request if the prescription is for a schedule II opioid drug., 153, cm, 050... Start Date: 07/27/21 Status: Ordered Clonazepam 1, mg, By Mouth, 2 times a day, 0, 0, 05/16/07 1:47:09, Print JOE Number, [id number], Constant Indicator Start Date: 05/16/07 Status: Ordered [...] Refills, Maintenance, 07/15/20 8:40:00 EDT, ER Tablet, [facility] #[id number], Partial fill upon patient request if the [...] mL, 6 Refills, Maintenance, 08/03/21 17:11:00 EDT, [facility] #[id number], Partial fill upon patient request if the [...] mL, 5 Refills, Maintenance, 01/06/21 23:20:00 EDT, [facility]... Start Date: 01/06/21 Status: Ordered Omeprazole By Mouth, Daily, 0 Refills, Maintenance, 01/14/15 14:01:19 Start Date: 01/14/15 Status: Ordered Oxycodone = 5 mg, By Mouth, PRN as needed for pain, 0 Refills, Maintenance, 05/19/14 16:22:30 Start Date: 05/19/14 Status: Ordered Oxygen Supplies See Instructions, 0, 0, 01/29/08 16:46:30, 2 liters by nasal cannula at night, [facility] Start Date: 01/29/08 Status: Ordered Pen [place], 31 G x 5 mm BD Ultra Fine III See Instructions, # 400 each, Refills 2, Tot. Refills 2, Maintenance, for use with novolog flexpen and lantus solostar pen 4 times a day, 07/30/20 12:48:00 EDT, Compound, 153, cm, 07/08/20 15:22:00 EDT, Height Start Date: 07/30/20 Stop Date: 04/26/21 Status: Ordered Pen [place], 32 G x 4 mm BD Ultra [...] 8:56:45, bilateral wrist splints for carpal tunnel, [facility] Start Date: 12/27/07 Status: Ordered Symbicort 160mcg-4.5mcg Inhaler Inhalation, 2 times a day, Maintenance, 01/14/15 14:00:43 Start Date: 01/14/15 Status: Ordered vibegron 75 mg oral tablet 1 tablet = 75 mg, By Mouth, Daily, # 30 tablet, 2 Refills, Maintenance, 07/29/20 15:03:00 EDT, Tablet, [facility] #[id number], Partial fill upon patient request if the prescription is for a schedule II opioid drug., 153, cm, 07/08/20 15:22:00 EDT... Start Date: 07/29/20 Status: Ordered Victoza 18 mg/3 mL subcutaneous solution = 1.8 mg, Subcutaneous Infusion, Daily, for 90 days, # 18 mL, 3 Refills, Hard Stop 10/04/21 15:00:00 EDT, 10/09/20 15:00:00 EDT, [facility] #[id number], e11.65, 153, cm, 07/08/20 15:22:00 EDT, Height Start Date: 10/09/20 Stop Date: 10/04/21 Status: Ordered Victoza 18 mg/3 mL subcutaneous solution = 1.8 mg, Subcutaneous Infusion, Daily, # 18 mL, 1 Refills, Maintenance, 10/04/21 15:00:00 EDT, [facility] #[id number], e11.65, 153, cm, 07/08/20 15:22:00 EDT, Height [...]
--- OUTSIDE RECORDS SUMMARY | 2022-05-27 10:37 | XMS_ITS | Continuity of Care Document ---
Author Name Unknown Organization [facility] Address [address] [place] [address]- Care Team Providers Care Target Aircraft Technician Name Role Phone Rito Irving MD Primary Care Physician [place] [facility] [place] 02/02/22 - 03/04/22 [facility] [address] [place] [address]- Allergies, Adverse Reactions, Alerts Substance Reaction Severity [...] Refills 0, Maintenance, E11.9: Fortesting glucose levels: [facility] [address]-75, 02/06/20 16:57:00 EST, Compound, 152.4, cm, 12/22/18 [...] Refills 0, Maintenance, E11.9: Fortesting glucose levels: [facility] [address]-01, 05/27/20 14:59:00 EDT, Compound, 152.4, cm, 12/22/18 [...] 6 Refills, Soft Stop, 06/12/21 11:36:00 EDT, [facility] #[id number], Partial fill upon patient request if the prescription is for a schedule II opioid drug., 153, cm, 07/08/20 15:22:00 EDT, Height Start Date: 06/12/21 Status: Ordered Basaglar KwikPen 100 units/mL subcutaneous solution See Instructions, Subcutaneous Injection 54 U QD DX E11.65, # 20 mL, 6 Refills, Maintenance, 07/27/21 14:05:00 EDT, [facility] #[id number], Partial fill upon patient request if the prescription is for a schedule II opioid drug., 153, cm, 050... Start Date: 07/27/21 Status: Ordered Clonazepam 1, mg, By Mouth, 2 times a day, 0, 0, 05/16/07 1:47:09, Print JOE Number, [id number], Constant Indicator Start Date: 05/16/07 Status: Ordered [...] Refills, Maintenance, 07/15/20 8:40:00 EDT, ER Tablet, [facility] #[id number], Partial fill upon patient request if the [...] mL, 6 Refills, Maintenance, 02/03/22 16:10:00 EST, [facility]/pharmacy #[id number], 153, cm, 12/09/21 13:35:... Start Date: 02/03/22 Status: Ordered Lantus Solostar Pen 100 units/mL subcutaneous solution = 70 units, Daily at bedtime, 0 Refills Start Date: 03/02/09 Stop Date: 03/31/09 Status: Ordered Lantus Solostar Pen 100 units/mL subcutaneous solution See Instructions, Subcutaneous Injection QD 54 U Dx E11.65 FILL [facility] ONLY, # 30 mL, 6 Refills, Maintenance, 08/03/21 17:11:00 EDT, [facility] #[id number], Partial fill upon patient request if the [...] liters by nasal cannula at night, [facility] Start Date: 01/29/08 Status: Ordered Pen [place], 31 G x 5 mm BD Ultra Fine III See Instructions, # 400 each, Refills 3, Tot. Refills 3, Maintenance, e11.9, for use with novolog flexpen and lantus solostar pen 4 times a day, 10/07/21 16:04:00 EDT, Compound, 153, cm, 07/08/20 15:22:00 EDT, Height Start Date: 10/07/21 Stop Date: 10/02/22 Status: Ordered Pen [place], 32 G x 4 mm BD Ultra [...] bilateral wrist splints for carpal tunnel, [facility] Start Date: 12/27/07 Status: Ordered Symbicort 160mcg-4.5mcg Inhaler Inhalation, 2 times a day, Maintenance, 01/14/15 14:00:43 Start Date: 01/14/15 Status: Ordered vibegron 75 mg oral tablet 1 tablet = 75 mg, By Mouth, Daily, # 30 tablet, 2 Refills, Maintenance, 07/29/20 15:03:00 EDT, Tablet, [facility] #[id number], Partial fill upon patient request if the prescription is for a schedule II opioid drug., 153, cm, 07/08/20 15:22:00 EDT... Start Date: 07/29/20 Status: Ordered Victoza 18 mg/3 mL subcutaneous solution = 1.8 mg, Subcutaneous Infusion, Daily, # 18 mL, 1 Refills, Maintenance, 10/22/21 13:42:00 EDT, [facility] #[id number], e11.65, 153, cm, 07/08/20 15:22:00 EDT, Height [...] Team Personnel Name: Rito Irving MD Position: [facility] Physician (General Medicine) Member Role: PCP Address: Address: [address] [place] [id number] [place] [id number] Name: Robin Oquendo RN Position: [facility] RN Member Role: Primary Care Nurse Care Team Related Persons Name: ROGER CABRALES Address: home [address] [address] Name: MAHNAZ LEYVA Address: home [address] [place] [address]
--- OUTSIDE RECORDS SUMMARY | 2022-05-27 10:37 | XMS_ITS | Continuity of Care Document ---
Author Name Unknown Organization [facility] [facility] Address [address] [place] [address], [address]t [place] [address]- Care Team Providers Care Prize Coordinator Name Role Phone Rito Irving MD Primary Care Physician Encounter [facility] Date(s): 10/16/20 - 11/15/20 [facility] [address] [facility], [address] [place], [place] [address] Attending Physician: AdmJr chowdhury Admitting Physician: AdmtrJr Referring Physician: AdmtrJr Allergies, [...] Refills 0, Maintenance, E11.9: Fortesting glucose levels: [facility] [address]-39, 02/06/20 16:57:00 EST, Compound, 152.4, cm, 10/19/19 9:07:00 EDT, Height Start Date: 02/06/20 Status: [...] Refills 0, Maintenance, E11.9: Fortesting glucose levels: [facility] [address]-44, 05/27/20 14:59:00 EDT, Compound, 152.4, cm, 12/22/18 [...] mL, 11 Refills, Maintenance, 10/09/20 15:00:00 EDT, [facility] #[id number], e11.65, 153, cm, 07/08/20 15:22:00 EDT, Height Start Date: 10/09/20 Status: Ordered Clonazepam 1, mg, By Mouth, 2 times a day, 0, 0, 05/16/07 1:47:09, Print JOE Number, [id number], Constant Indicator Start Date: 05/16/07 Status: Ordered [...] Refills, Maintenance, 07/15/20 8:40:00 EDT, ER Tablet, [facility] #[id number], Partial fill upon patient request if the [...] mL, 5 Refills, Maintenance, 07/30/20 12:48:00 EDT, [facility] #[id number], E11.65, appointment needed, 153,cm, 07/08/20 15:22:00 EDT, [...] OPPT Start Date: 01/29/08 Status: Ordered Pen [place], 31 G x 5 mm BD Ultra Fine III See Instructions, # 400 each, Refills 2, Tot. Refills 2, Maintenance, for use with novolog flexpen and lantus solostar pen 4 times a day, 07/30/20 12:48:00 EDT, Compound, 153, cm, 07/08/20 15:22:00 EDT, Height Start Date: 07/30/20 Stop Date: 04/26/21 Status: Ordered Pen [place], 32 G x 4 mm BD Ultra [...] 2 Refills, Maintenance, 07/29/20 15:03:00 EDT, Tablet, [facility] #[id number], Partial fill upon patient request if the prescription is for a schedule II opioid drug., 153, cm, 07/08/20 15:22:00 EDT... Start Date: 07/29/20 Status: Ordered Victoza 18 mg/3 mL subcutaneous solution = 1.8 mg, Subcutaneous Infusion, Daily, # 18 mL, 3 Refills, Maintenance, 10/09/20 15:00:00 EDT, [facility] #[id number], e11.65, 153, cm, 07/08/20 15:22:00 EDT, Height [...]
--- OUTSIDE RECORDS SUMMARY | 2022-05-27 10:37 | XMS_ITS | Continuity of Care Document ---
Author Name Unknown Organization [facility] Address [address] [place] [address]- Care Team Providers Care Tight Barrel Inspector Name Role Phone Rito Irving MD Primary Care Physician Encounter [facility] Date(s): 05/27/20 - 06/26/20 [facility] [address] [place] [id number] Allergies, Adverse Reactions, Alerts Substance Reaction [...] 0, Maintenance, E11.9: Fortesting glucose levels: [facility] [address]-24, 02/06/20 16:57:00 EST, Compound, 152.4, cm, 12/22/18 9:07:00 EDT, Height Start Date: 02/06/20 Status: Ordered 14 day drew reader 14 day drew reader, See Instructions, # 1 each, Refills 0, Tot. Refills 0, Maintenance, E11.9: Fortesting glucose levels: [facility] [address]-41, 05/27/20 14:59:00 EDT, Compound, 152.4, cm, 12/22/18 9:07:00 EDT, Height Start Date: 05/27/20 Status: Ordered 14 day drew sensor 14 day drew sensor, See Instructions, # 2 each, Refills 11, Tot. Refills 11, Maintenance, E 11.9: for testing glucose lev els. [facility] [address]-52, 02/06/20 16:57:00 EST, Compound, 152.4, cm, :07:00 EDT, Height Start Date: 02/06/20 Status: Ordered 14 day drew sensor 14 day drew sensor, See Instructions, # 2 each, Refills 11, Tot. Refills 11, Maintenance, E 11.9: for testing glucose lev els. [facility] [address]-80, 05/27/20 14:59:00 EDT, Compound, 152.4, cm, 199:07:00 EDT, Height Start Date: 05/27/20 Status: Ordered AccuChek Fast Clix Lancets AccuChek [...] 0, 0, 05/16/07 1:47:09, Print JOE Number, [id number], Constant Indicator Start Date: 05/16/07 Status: Ordered [...] 2 liters by nasal cannula at night, [facility] Start Date: 01/29/08 Status: Ordered Pen [place], 31 G x 5 mm BD Ultra Fine III See Instructions, # 400 each, Refills 2, Tot. Refills 2, Maintenance, for use with novolog flexpen and lantus solostar pen 4 times a day, 10/01/12 14:15:51, Compound Start Date: 10/01/12 Stop Date: 06/28/13 Status: Ordered Pen [place], 32 G x 4 mm BD Ultra [...] 8:56:45, bilateral wrist splints for carpal tunnel, [facility] Start Date: 12/27/07 Status: Ordered Symbicort 160mcg-4.5mcg Inhaler Inhalation, 2 times a day, Maintenance, 01/14/15 14:00:43 Start Date: 01/14/15 Status: Ordered Victoza 18 mg/3 mL subcutaneous solution = 1.8 mg, Subcutaneous Infusion, Daily, # 18 mL, 3 Refills, Maintenance, 06/26/20 14:32:00 EDT, [facility] #[id number], e11.65, 152.4, cm, 12/22/18 9:07:00 EDT, Height [...]
--- OUTSIDE RECORDS SUMMARY | 2022-05-27 10:37 | XMS_ITS | Continuity of Care Document ---
Author Name Unknown Organization [facility] Address [address] [place] [phone]- Care Team Providers Care Restaurant Recruiter Name Role Phone Rito Irving MD Primary Care Physician Encounter [facility] Date(s): 07/08/21 - 08/07/21 [facility] [address] [place] [id number] Allergies, Adverse Reactions, Alerts Substance [...] Refills 0, Maintenance, E11.9: Fortesting glucose levels: [facility] [address]-28, 02/06/20 16:57:00 EST, Compound, 152.4, cm, 12/22/18 [...] Refills 0, Maintenance, E11.9: Fortesting glucose levels: [facility] [address]-28, 05/27/20 14:59:00 EDT, Compound, 152.4, cm, 12/22/18 [...] 6 Refills, Soft Stop, 06/12/21 11:36:00 EDT, [facility] #[id number], Partial fill upon patient request if the prescription is for a schedule II opioid drug., 153, cm, 07/08/20 15:22:00 EDT, Height Start Date: 06/12/21 Status: Ordered Basaglar KwikPen 100 units/mL subcutaneous solution See Instructions, Subcutaneous Injection 54 U QD DX E11.65, # 20 mL, 6 Refills, Maintenance, 07/27/21 14:05:00 EDT, [facility] #[id number], Partial fill upon patient request if the prescription is for a schedule II opioid drug., 153, cm, 05/0... Start Date: 07/27/21 Status: Ordered Clonazepam 1, mg, By Mouth, 2 times a day, 0, 0, 05/16/07 1:47:09, Print JOE Number, [id number], Constant Indicator Start Date: 05/16/07 Status: Ordered [...] Refills, Maintenance, 07/15/20 8:40:00 EDT, ER Tablet, [facility] #[id number], Partial fill upon patient request if the [...] mL, 6 Refills, Maintenance, 08/03/21 17:11:00 EDT, [facility] #[id number], Partial fill upon patient request if the [...] mL, 5 Refills, Maintenance, 01/06/21 23:20:00 EDT, [facility]... Start Date: 01/06/21 Status: Ordered Omeprazole By Mouth, Daily, 0 Refills, Maintenance, 01/14/15 14:01:19 Start Date: 01/14/15 Status: Ordered Oxycodone = 5 mg, By Mouth, PRN as needed for pain, 0 Refills, Maintenance, 05/19/14 16:22:30 Start Date: 05/19/14 Status: Ordered Oxygen Supplies See Instructions, 0, 0, 01/29/08 16:46:30, 2 liters by nasal cannula at night, [facility] Start Date: 01/29/08 Status: Ordered Pen [place], 31 G x 5 mm BD Ultra Fine III See Instructions, # 400 each, Refills 2, Tot. Refills 2, Maintenance, for use with novolog flexpen and lantus solostar pen 4 times a day, 07/30/20 12:48:00 EDT, Compound, 153, cm, 07/08/20 15:22:00 EDT, Height Start Date: 07/30/20 Stop Date: 04/26/21 Status: Ordered Pen [place], 32 G x 4 mm BD Ultra [...] 8:56:45, bilateral wrist splints for carpal tunnel, [facility] Start Date: 12/27/07 Status: Ordered Symbicort 160mcg-4.5mcg Inhaler Inhalation, 2 times a day, Maintenance, 01/14/15 14:00:43 Start Date: 01/14/15 Status: Ordered vibegron 75 mg oral tablet 1 tablet = 75 mg, By Mouth, Daily, # 30 tablet, 2 Refills, Maintenance, 07/29/20 15:03:00 EDT, Tablet, [facility] #[id number], Partial fill upon patient request if the prescription is for a schedule II opioid drug., 153, cm, 07/08/20 15:22:00 EDT... Start Date: 07/29/20 Status: Ordered Victoza 18 mg/3 mL subcutaneous solution = 1.8 mg, Subcutaneous Infusion, Daily, for 90 days, # 18 mL, 3 Refills, Hard Stop 10/04/21 15:00:00 EDT, 10/09/20 15:00:00 EDT, [facility] #[id number], e11.65, 153, cm, 07/08/20 15:22:00 EDT, Height Start Date: 10/09/20 Stop Date: 10/04/21 Status: Ordered Victoza 18 mg/3 mL subcutaneous solution = 1.8 mg, Subcutaneous Infusion, Daily, # 18 mL, 1 Refills, Maintenance, 10/04/21 15:00:00 EDT, [facility] #[id number], e11.65, 153, cm, 07/08/20 15:22:00 EDT, Height [...]
--- OUTSIDE RECORDS SUMMARY | 2022-05-27 10:37 | XMS_ITS | Continuity of Care Document ---
Author Name Unknown Organization [facility] Address [address] [place] [address]- Care Team Providers Care Foundry Engineer Name Role Phone Rito Irving MD Primary Care Physician [place] [facility] [place] 03[place]21 [facility] [address] [place] [address]- Allergies, Adverse Reactions, Alerts Substance Reaction Severity [...] Refills 0, Maintenance, E11.9: Fortesting glucose levels: [facility] [address]-26, 02/06/20 16:57:00 EST, Compound, 152.4, cm, 12/22/18 [...] Refills 0, Maintenance, E11.9: Fortesting glucose levels: [facility] [address]-50, 05/27/20 14:59:00 EDT, Compound, 152.4, cm, 12/22/18 [...] 0, 0, 05/16/07 1:47:09, Print JOE Number, [id number], Constant Indicator Start Date: 05/16/07 Status: Ordered [...] Refills, Maintenance, 07/15/20 8:40:00 EDT, ER Tablet, [facility] #[id number], Partial fill upon patient request if the [...] 6 Refills, Maintenance, 02/28/21 22:25:00 EST, Solution, [facility] #[id number], Partial fill upon patient request if the [...] OPPT Start Date: 01/29/08 Status: Ordered Pen [place], 31 G x 5 mm BD Ultra Fine III See Instructions, # 400 each, Refills 2, Tot. Refills 2, Maintenance, for use with novolog flexpen and lantus solostar pen 4 times a day, 07/30/20 12:48:00 EDT, Compound, 153, cm, 07/08/20 15:22:00 EDT, Height Start Date: 07/30/20 Stop Date: 04/26/21 Status: Ordered Pen [place], 32 G x 4 mm BD Ultra [...] 2 Refills, Maintenance, 07/29/20 15:03:00 EDT, Tablet, [facility] #[id number], Partial fill upon patient request if the prescription is for a schedule II opioid drug., 153, cm, 07/08/20 15:22:00 EDT... Start Date: 07/29/20 Status: Ordered Victoza 18 mg/3 mL subcutaneous solution = 1.8 mg, Subcutaneous Infusion, Daily, # 18 mL, 3 Refills, Maintenance, 10/09/20 15:00:00 EDT, [facility] #[id number], e11.65, 153, cm, 07/08/20 15:22:00 EDT, Height [...]
--- OUTSIDE RECORDS SUMMARY | 2022-05-27 10:38 | XMS_ITS | Continuity of Care Document ---
Author Name Unknown Organization [facility] Address [address] [place] [address]- Care Team Providers Care Stopper Maker Name Role Phone Rito Irving MD Primary Care Physician [place] [facility] [place] 07/[place]/21 [facility] [address] [place] [address]- Attending Physician: Jr Benites Admitting Physician: AdmJr [...] 0, Maintenance, E11.9: Fortesting glucose levels: [facility] [address]-26, 02/06/20 16:57:00 EST, Compound, 152.4, cm, 12/22/18 [...] 0, Maintenance, E11.9: Fortesting glucose levels: [facility] [address]-16, 05/27/20 14:59:00 EDT, Compound, 152.4, cm, 12/22/18 [...] 6 Refills, Soft Stop, 06/12/21 11:36:00 EDT, [facility] #[id number], Partial fill upon patient request if the prescription is for a schedule II opioid drug., 153, cm, 07/08/20 15:22:00 EDT, Height Start Date: 06/12/21 Status: Ordered Clonazepam 1, mg, By Mouth, 2 times a day, 0, 0, 05/16/07 1:47:09, Print JOE Number, [id number], Constant Indicator Start Date: 05/16/07 Status: Ordered [...] Refills, Maintenance, 07/15/20 8:40:00 EDT, ER Tablet, [facility][id number], Partial fill upon patient request if the [...] 6 Refills, Maintenance, 02/28/21 22:25:00 EST, Solution, [facility] #[id number], Partial fill upon patient request if the [...] OPPTHS Start Date: 01/29/08 Status: Ordered Pen [place], 31 G x 5 mm BD Ultra Fine III See Instructions, # 400 each, Refills 2, Tot. Refills 2, Maintenance, for use with novolog flexpen and lantus solostar pen 4 times a day, 07/30/20 12:48:00 EDT, Compound, 153, cm, 07/08/20 15:22:00 EDT, Height Start Date: 07/30/20 Stop Date: 04/26/21 Status: Ordered Pen [place], 32 G x 4 mm BD Ultra [...] 2 Refills, Maintenance, 07/29/20 15:03:00 EDT, Tablet, [facility] #[id number], Partial fill upon patient request if the prescription is for a schedule II opioid drug., 153, cm, 07/08/20 15:22:00 EDT... Start Date: 07/29/20 Status: Ordered Victoza 18 mg/3 mL subcutaneous solution = 1.8 mg, Subcutaneous Infusion, Daily, for 90 days, # 18 mL, 3 Refills, Hard Stop 10/04/21 15:00:00 EDT, 10/09/20 15:00:00 EDT, [facility] #[id number], e11.65, 153, cm, 07/08/20 15:22:00 EDT, Height Start Date: 10/09/20 Stop Date: 10/04/21 Status: Ordered Victoza 18 mg/3 mL subcutaneous solution = 1.8 mg, Subcutaneous Infusion, Daily, # 18 mL, 1 Refills, Maintenance, 10/04/21 15:00:00 EDT, [facility] #[id number], e11.65, 153, cm, 07/08/20 15:22:00 EDT, Height [...]
--- OUTSIDE RECORDS SUMMARY | 2022-05-27 10:38 | XMS_ITS | Continuity of Care Document ---
Author Name Unknown Organization [facility] Address [address] [place] [address]- Care Team Providers Care Vp Director Of Finance Name Role Phone Rito Irving MD Primary Care Physician [place] [facility] [place] 07/[place]/20 - 09/04/20 [facility] [address] [place] [id number] Attending Physician: Alejandro Muller MD Admitting Physician: [...] Refills 0, Maintenance, E11.9: Fortesting glucose levels: [facility] [address]-67, 02/06/20 16:57:00 EST, Compound, 152.4, cm, 12/22/18 [...] Refills 0, Maintenance, E11.9: Fortesting glucose levels: [facility] [address]-17, 05/27/20 14:59:00 EDT, Compound, 152.4, cm, 12/22/18 [...] 0, 0, 05/16/07 1:47:09, Print JOE Number, [id number], Constant Indicator Start Date: 05/16/07 Status: Ordered [...] Refills, Maintenance, 07/15/20 8:40:00 EDT, ER Tablet, [facility] #[id number], Partial fill upon patient request if the [...] mL, 5 Refills, Maintenance, 07/30/20 12:48:00 EDT, [facility] #[id number], E11.65, appointment needed, 153,cm, 07/08/20 15:22:00 EDT, [...] OPPT Start Date: 01/29/08 Status: Ordered Pen [place], 31 G x 5 mm BD Ultra Fine III See Instructions, # 400 each, Refills 2, Tot. Refills 2, Maintenance, for use with novolog flexpen and lantus solostar pen 4 times a day, 07/30/20 12:48:00 EDT, Compound, 153, cm, 07/08/20 15:22:00 EDT, Height Start Date: 07/30/20 Stop Date: 04/26/21 Status: Ordered Pen [place], 32 G x 4 mm BD Ultra [...] 2 Refills, Maintenance, 07/29/20 15:03:00 EDT, Tablet, [facility] #[id number], Partial fill upon patient request if the prescription is for a schedule II opioid drug., 153, cm, 07/08/20 15:22:00 EDT... Start Date: 07/29/20 Status: Ordered Victoza 18 mg/3 mL subcutaneous solution = 1.8 mg, Subcutaneous Infusion, Daily, # 18 mL, 3 Refills, Maintenance, 06/26/20 14:32:00 EDT, [facility] #[id number], e11.65, 152.4, cm, 12/22/18 9:07:00 EDT, Height [...]
--- OUTSIDE RECORDS SUMMARY | 2022-05-27 10:38 | XMS_ITS | Continuity of Care Document ---
Author Name Unknown Organization [facility] Address [address] [place] [address]- Care Team Providers Care Cold Mill Supervisor Name Role Phone Rito Irving MD Primary Care Physician [place] [facility] [place]s): 05/27/20 - 06/26/20 [facility] [address] [place] [address]- Attending Physician: Jr Benites Admitting Physician: AdmJr [...] Maintenance, E11.9: Fortesting glucose levels: [facility] [address]-74, 02/06/20 16:57:00 EST, Compound, 152.4, cm, 12/22/18 9:07:00 EDT, Height Start Date: 02/06/20 Status: Ordered 14 day drew reader 14 day drew reader, See Instructions, # 1 each, Refills 0, Tot. Refills 0, Maintenance, E11.9: Fortesting glucose levels: [facility] [address]-09, 05/27/20 14:59:00 EDT, Compound, 152.4, cm, 12/22/18 9:07:00 EDT, Height Start Date: 05/27/20 Status: Ordered 14 day drew sensor 14 day drew sensor, See Instructions, # 2 each, Refills 11, Tot. Refills 11, Maintenance, E 11.9: for testing glucose lev els. [facility] [address]-54, 02/06/20 16:57:00 EST, Compound, 152.4, cm, :07:00 EDT, Height Start Date: 02/06/20 Status: Ordered 14 day drew sensor 14 day drew sensor, See Instructions, # 2 each, Refills 11, Tot. Refills 11, Maintenance, E 11.9: for testing glucose lev els. [facility] [id number], 05/27/20 14:59:00 EDT, Compound, 152.4, cm, :07:00 EDT, Height Start Date: 05/27/20 Status: Ordered [...] 0, 0, 05/16/07 1:47:09, Print JOE Number, [id number], Constant Indicator Start Date: 05/16/07 Status: Ordered [...] liters by nasal cannula at night, [facility] Start Date: 01/29/08 Status: Ordered Pen [place], 31 G x 5 mm BD Ultra Fine III See Instructions, # 400 each, Refills 2, Tot. Refills 2, Maintenance, for use with novolog flexpen and lantus solostar pen 4 times a day, 10/01/12 14:15:51, Compound Start Date: 10/01/12 Stop Date: 06/28/13 Status: Ordered Pen [place], 32 G x 4 mm BD Ultra [...] bilateral wrist splints for carpal tunnel, [facility] Start Date: 12/27/07 Status: Ordered Symbicort 160mcg-4.5mcg Inhaler Inhalation, 2 times a day, Maintenance, 01/14/15 14:00:43 Start Date: 01/14/15 Status: Ordered Victoza 18 mg/3 mL subcutaneous solution = 1.8 mg, Subcutaneous Infusion, Daily, # 18 mL, 3 Refills, Maintenance, 06/26/20 14:32:00 EDT, [facility][id number], e11.65, 152.4, cm, 12/22/18 9:07:00 EDT, Height [...]
--- OUTSIDE RECORDS SUMMARY | 2022-05-27 10:38 | XMS_ITS | Continuity of Care Document ---
Author Name Unknown Organization [facility] ter Address [address] [place] [address]- Care Team Providers Care Cutter Head Sharpener Name Role Phone Rito Irving MD Primary Care Physician Encounter [facility] ACCT R [id number] Date(s): 09/11/19 - 10/26/[address] [address]- [facility] Attending Physician: Alejandro Muller MD Admitting Physician: [...] 0, 0, 05/16/07 1:47:09, Print JOE Number, [id number], Constant Indicator Start Date: 05/16/07 Status: Ordered [...] 2 liters by nasal cannula at night, [facility] Start Date: 01/29/08 Status: Ordered Pen [place], 31 G x 5 mm BD Ultra Fine III See Instructions, # 400 each, Refills 2, Tot. Refills 2, Maintenance, for use with novolog flexpen and lantus solostar pen 4 times a day, 10/01/12 14:15:51, Compound Start Date: 10/01/12 Stop Date: 06/28/13 Status: Ordered Pen [place], 32 G x 4 mm BD [...] 8:56:45, bilateral wrist splints for carpal tunnel, [facility] Start Date: 12/27/07 Status: Ordered Symbicort [...]
--- OUTSIDE RECORDS SUMMARY | 2022-05-27 10:38 | XMS_ITS | Continuity of Care Document ---
Author Name Unknown Organization [facility] Address [address] [place] [address]- Care Team Providers Care Boat Assembler Name Role Phone Rito Irving MD Primary Care Physician Encounter [facility] Date(s): 07/30/20 - 08/29/20 [facility] [address] [place] [phone]- Allergies, Adverse Reactions, Alerts Substance Reaction Severity [...] Refills 0, Maintenance, E11.9: Fortesting glucose levels: [facility] [id number], 02/06/20 16:57:00 EST, Compound, 152.4, cm, 12/22/18 [...] Refills 0, Maintenance, E11.9: Fortesting glucose levels: [facility] [address]-43, 05/27/20 14:59:00 EDT, Compound, 152.4, cm, 12/22/18 [...] 0, 0, 05/16/07 1:47:09, Print JOE Number, [id number], Constant Indicator Start Date: 05/16/07 Status: Ordered [...] Refills, Maintenance, 07/15/20 8:40:00 EDT, ER Tablet, [facility] #[id number], Partial fill upon patient request if the [...] mL, 5 Refills, Maintenance, 07/30/20 12:48:00 EDT, [facility] #[id number], E11.65, appointment needed, 153,cm, 07/08/20 15:22:00 EDT, [...] OPPT Start Date: 01/29/08 Status: Ordered Pen [place], 31 G x 5 mm BD Ultra Fine III See Instructions, # 400 each, Refills 2, Tot. Refills 2, Maintenance, for use with novolog flexpen and lantus solostar pen 4 times a day, 07/30/20 12:48:00 EDT, Compound, 153, cm, 07/08/20 15:22:00 EDT, Height Start Date: 07/30/20 Stop Date: 04/26/21 Status: Ordered Pen [place], 32 G x 4 mm BD Ultra [...] 2 Refills, Maintenance, 07/29/20 15:03:00 EDT, Tablet, [facility] #[id number], Partial fill upon patient request if the prescription is for a schedule II opioid drug., 153, cm, 07/08/20 15:22:00 EDT... Start Date: 07/29/20 Status: Ordered Victoza 18 mg/3 mL subcutaneous solution = 1.8 mg, Subcutaneous Infusion, Daily, # 18 mL, 3 Refills, Maintenance, 06/26/20 14:32:00 EDT, [facility] #[id number], e11.65, 152.4, cm, 12/22/18 9:07:00 EDT, Height [...]
--- OUTSIDE RECORDS SUMMARY | 2022-05-27 10:38 | XMS_ITS | Continuity of Care Document ---
Author Name Unknown Organization [facility] Address [address] [place] [address]- Care Team Providers Care Wood Box Maker Name Role Phone Rito Irving MD Primary Care Physician Encounter [facility] Date(s): 07/19/21 - 08/18/21 [facility] [address] [place] [address] Allergies, Adverse Reactions, Alerts Substance [...] Refills 0, Maintenance, E11.9: Fortesting glucose levels: [facility] [address]-71, 02/06/20 16:57:00 EST, Compound, 152.4, cm, 12/22/18 [...] Refills 0, Maintenance, E11.9: Fortesting glucose levels: [facility] [id number], 05/27/20 14:59:00 EDT, Compound, 152.4, cm, 12/22/18 [...] 6 Refills, Soft Stop, 06/12/21 11:36:00 EDT, [facility] #[id number], Partial fill upon patient request if the prescription is for a schedule II opioid drug., 153, cm, 07/08/20 15:22:00 EDT, Height Start Date: 06/12/21 Status: Ordered Basaglar KwikPen 100 units/mL subcutaneous solution See Instructions, Subcutaneous Injection 54 U QD DX E11.65, # 20 mL, 6 Refills, Maintenance, 07/27/21 14:05:00 EDT, [facility] #[id number], Partial fill upon patient request if the prescription is for a schedule II opioid drug., 153, cm, 050... Start Date: 07/27/21 Status: Ordered Clonazepam 1, mg, By Mouth, 2 times a day, 0, 0, 05/16/07 1:47:09, Print JOE Number, [id number], Constant Indicator Start Date: 05/16/07 Status: Ordered [...] Refills, Maintenance, 07/15/20 8:40:00 EDT, ER Tablet, [facility] #[id number], Partial fill upon patient request if the [...] mL, 6 Refills, Maintenance, 08/03/21 17:11:00 EDT, [facility] #[id number], Partial fill upon patient request if the [...] mL, 5 Refills, Maintenance, 01/06/21 23:20:00 EDT, [facility]... Start Date: 01/06/21 Status: Ordered Omeprazole By Mouth, Daily, 0 Refills, Maintenance, 01/14/15 14:01:19 Start Date: 01/14/15 Status: Ordered Oxycodone = 5 mg, By Mouth, PRN as needed for pain, 0 Refills, Maintenance, 05/19/14 16:22:30 Start Date: 05/19/14 Status: Ordered Oxygen Supplies See Instructions, 0, 0, 01/29/08 16:46:30, 2 liters by nasal cannula at night, [facility] Start Date: 01/29/08 Status: Ordered Pen [place], 31 G x 5 mm BD Ultra Fine III See Instructions, # 400 each, Refills 2, Tot. Refills 2, Maintenance, for use with novolog flexpen and lantus solostar pen 4 times a day, 07/30/20 12:48:00 EDT, Compound, 153, cm, 07/08/20 15:22:00 EDT, Height Start Date: 07/30/20 Stop Date: 04/26/21 Status: Ordered Pen [place], 32 G x 4 mm BD Ultra [...] 8:56:45, bilateral wrist splints for carpal tunnel, [facility] Start Date: 12/27/07 Status: Ordered Symbicort 160mcg-4.5mcg Inhaler Inhalation, 2 times a day, Maintenance, 01/14/15 14:00:43 Start Date: 01/14/15 Status: Ordered vibegron 75 mg oral tablet 1 tablet = 75 mg, By Mouth, Daily, # 30 tablet, 2 Refills, Maintenance, 07/29/20 15:03:00 EDT, Tablet, [facility] #[id number], Partial fill upon patient request if the prescription is for a schedule II opioid drug., 153, cm, 07/08/20 15:22:00 EDT... Start Date: 07/29/20 Status: Ordered Victoza 18 mg/3 mL subcutaneous solution = 1.8 mg, Subcutaneous Infusion, Daily, for 90 days, # 18 mL, 3 Refills, Hard Stop 10/04/21 15:00:00 EDT, 10/09/20 15:00:00 EDT, [facility] #[id number], e11.65, 153, cm, 07/08/20 15:22:00 EDT, Height Start Date: 10/09/20 Stop Date: 10/04/21 Status: Ordered Victoza 18 mg/3 mL subcutaneous solution = 1.8 mg, Subcutaneous Infusion, Daily, # 18 mL, 1 Refills, Maintenance, 10/04/21 15:00:00 EDT, [facility] #[id number], e11.65, 153, cm, 07/08/20 15:22:00 EDT, Height [...]
--- OUTSIDE RECORDS SUMMARY | 2022-05-27 10:38 | XMS_ITS | Continuity of Care Document ---
Author Name Unknown Organization [facility] Address [address] [place] [address]- Care Team Providers Care Instructor Psychiatric Aide Name Role Phone Rito Irving MD Primary Care Physician [place] [facility] Date(s): 05/11/21 - 06/10/21 [facility] [address] [place] [address]- Allergies, Adverse Reactions, Alerts Substance Reaction Severity [...] Refills 0, Maintenance, E11.9: Fortesting glucose levels: [facility] [id number], 02/06/20 16:57:00 EST, Compound, 152.4, cm, 12/22/18 [...] Refills 0, Maintenance, E11.9: Fortesting glucose levels: [facility] [address]-84, 05/27/20 14:59:00 EDT, Compound, 152.4, cm, 12/22/18 [...] 0, 0, 05/16/07 1:47:09, Print JOE Number, [id number], Constant Indicator Start Date: 05/16/07 Status: Ordered [...] Refills, Maintenance, 07/15/20 8:40:00 EDT, ER Tablet, [facility] #[id number], Partial fill upon patient request if the [...] 6 Refills, Maintenance, 02/28/21 22:25:00 EST, Solution, [facility] #[id number], Partial fill upon patient request if the [...] liters by nasal cannula at night, [facility] Start Date: 01/29/08 Status: Ordered [...] 2 Refills, Maintenance, 07/29/20 15:03:00 EDT, Tablet, [facility] #[id number], Partial fill upon patient request if the prescription is for a schedule II opioid drug., 153, cm, 07/08/20 15:22:00 EDT... Start Date: 07/29/20 Status: Ordered Victoza 18 mg/3 mL subcutaneous solution = 1.8 mg, Subcutaneous Infusion, Daily, for 90 days, # 18 mL, 3 Refills, Hard Stop 10/04/21 15:00:00 EDT, 10/09/20 15:00:00 EDT, [facility] #[id number], e11.65, 153, cm, 07/08/20 15:22:00 EDT, Height Start Date: 10/09/20 Stop Date: 10/04/21 Status: Ordered Victoza 18 mg/3 mL subcutaneous solution = 1.8 mg, Subcutaneous Infusion, Daily, # 18 mL, 1 Refills, Maintenance, 10/04/21 15:00:00 EDT, [facility] #[id number], e11.65, 153, cm, 07/08/20 15:22:00 EDT, Height [...]
--- OUTSIDE RECORDS SUMMARY | 2022-05-27 10:38 | XMS_ITS | Continuity of Care Document ---
Author Name Unknown Organization [facility] ter Address [address] [place] [address]- Care Team Providers Care Pipelayer Name Role Phone Rito Irving MD Primary Care Physician Encounter [facility] Date(s): 01/09/20 - 02/15/[address] [address]- Attending Physician: Alejandro Muller MD Admitting Physician: Alejandro Muller MD Allergies, Adverse Reactions, Alerts Substance Reaction [...] Refills 0, Maintenance, E11.9: Fortesting glucose levels: [facility] [id number], 02/06/20 16:57:00 EST, Compound, 152.4, cm, 12/22/18 9:07:00 EDT, Height Start Date: 02/06/20 Status: Ordered 14 day drew sensor 14 day drew sensor, See Instructions, # 2 each, Refills 11, Tot. Refills 11, Maintenance, E 11.9: for testing glucose lev els. [facility] [id number], 02/06/20 16:57:00 EST, Compound, 152.4, cm, 199:07:00 [...] 0, 0, 05/16/07 1:47:09, Print JOE Number, [id number], Constant Indicator Start Date: 05/16/07 Status: Ordered [...] OPPT Start Date: 01/29/08 Status: Ordered Pen [place], 31 G x 5 mm BD Ultra Fine III See Instructions, # 400 each, Refills 2, Tot. Refills 2, Maintenance, for use with novolog flexpen and lantus solostar pen 4 times a day, 10/01/12 14:15:51, Compound Start Date: 10/01/12 Stop Date: 06/28/13 Status: Ordered Pen [place], 32 G x 4 mm BD Ultra [...]
--- OUTSIDE RECORDS SUMMARY | 2022-05-27 10:38 | XMS_ITS | Continuity of Care Document ---
Author Name Unknown Organization [facility] Address [address] [place] [address]- Care Team Providers Care Music Therapist [employer] Name Role Phone Rito Irving MD Primary Care Physician Encounter [facility] Date(s): 03/10/21 - 04/25/21 [facility] [address] [place] [address] Attending Physician: Lindsay Salas MD Admitting Physician: Lindsay Salas MD Referring Physician: Rito Irving MD Allergies, [...] 0, Maintenance, E11.9: Fortesting glucose levels: [facility] [id number], 02/06/20 16:57:00 EST, Compound, 152.4, cm, 12/22/18 [...] 0, Maintenance, E11.9: Fortesting glucose levels: [facility] [address]-35, 05/27/20 14:59:00 EDT, Compound, 152.4, cm, 12/22/18 [...] 0, 0, 05/16/07 1:47:09, Print JOE Number, [id number], Constant Indicator Start Date: 05/16/07 Status: Ordered [...] Refills, Maintenance, 07/15/20 8:40:00 EDT, ER Tablet, [facility] #[id number], Partial fill upon patient request if the [...] 6 Refills, Maintenance, 02/28/21 22:25:00 EST, Solution, [facility] #[id number], Partial fill upon patient request if the [...] OPPT Start Date: 01/29/08 Status: Ordered Pen [place], 31 G x 5 mm BD Ultra Fine III See Instructions, # 400 each, Refills 2, Tot. Refills 2, Maintenance, for use with novolog flexpen and lantus solostar pen 4 times a day, 07/30/20 12:48:00 EDT, Compound, 153, cm, 07/08/20 15:22:00 EDT, Height Start Date: 07/30/20 Stop Date: 04/26/21 Status: Ordered Pen [place], 32 G x 4 mm BD Ultra [...] 2 Refills, Maintenance, 07/29/20 15:03:00 EDT, Tablet, [facility] #[id number], Partial fill upon patient request if the prescription is for a schedule II opioid drug., 153, cm, 07/08/20 15:22:00 EDT... Start Date: 07/29/20 Status: Ordered Victoza 18 mg/3 mL subcutaneous solution = 1.8 mg, Subcutaneous Infusion, Daily, # 18 mL, 3 Refills, Maintenance, 10/09/20 15:00:00 EDT, [facility] #[id number], e11.65, 153, cm, 07/08/20 15:22:00 EDT, Height [...]
--- OUTSIDE RECORDS SUMMARY | 2022-05-27 10:38 | XMS_ITS | Continuity of Care Document ---
Author Name Unknown Organization [facility] Address [address] [place] [address]- Care Team Providers Care Director Of Program Management Name Role Phone Rito Irving MD Primary Care Physician Encounter [facility] Date(s): 02/03/22 - 03/05/22 [facility] [address] [place] [address] Allergies, Adverse Reactions, Alerts Substance Reaction [...] Refills 0, Maintenance, E11.9: Fortesting glucose levels: [facility] [id number], 02/06/20 16:57:00 EST, Compound, 152.4, cm, 12/22/18 [...] Refills 0, Maintenance, E11.9: Fortesting glucose levels: [facility] [id number], 05/27/20 14:59:00 EDT, Compound, 152.4, cm, 12/22/18 [...] 6 Refills, Soft Stop, 06/12/21 11:36:00 EDT, [facility] #[id number], Partial fill upon patient request if the prescription is for a schedule II opioid drug., 153, cm, 07/08/20 15:22:00 EDT, Height Start Date: 06/12/21 Status: Ordered Basaglar KwikPen 100 units/mL subcutaneous solution See Instructions, Subcutaneous Injection 54 U QD DX E11.65, # 20 mL, 6 Refills, Maintenance, 07/27/21 14:05:00 EDT, [facility] #[id number], Partial fill upon patient request if the prescription is for a schedule II opioid drug., 153, cm, 05/0... Start Date: 07/27/21 Status: Ordered Clonazepam 1, mg, By Mouth, 2 times a day, 0, 0, 05/16/07 1:47:09, Print JOE Number, [id number], Constant Indicator Start Date: 05/16/07 Status: Ordered [...] Refills, Maintenance, 07/15/20 8:40:00 EDT, ER Tablet, [facility] #[id number], Partial fill upon patient request if the [...] mL, 6 Refills, Maintenance, 02/03/22 16:10:00 EST, [facility]/pharmacy #[id number], 153, cm, 12/09/21 13:35:... Start Date: 02/03/22 Status: Ordered Lantus Solostar Pen 100 units/mL subcutaneous solution = 70 units, Daily at bedtime, 0 Refills Start Date: 03/02/09 Stop Date: 03/31/09 Status: Ordered Lantus Solostar Pen 100 units/mL subcutaneous solution See Instructions, Subcutaneous Injection QD 54 U Dx E11.65 FILL [facility] ONLY, # 30 mL, 6 Refills, Maintenance, 08/03/21 17:11:00 EDT, [facility] #[id number], Partial fill upon patient request if the [...] cannula at night, [facility] Start Date: 01/29/08 Status: Ordered Pen [place], 31 G x 5 mm BD Ultra Fine III See Instructions, # 400 each, Refills 3, Tot. Refills 3, Maintenance, e11.9, for use with novolog flexpen and lantus solostar pen 4 times a day, 10/07/21 16:04:00 EDT, Compound, 153, cm, 07/08/20 15:22:00 EDT, Height Start Date: 10/07/21 Stop Date: 10/02/22 Status: Ordered Pen [place], 32 G x 4 mm BD Ultra [...] for carpal tunnel, [facility] Start Date: 12/27/07 Status: Ordered Symbicort 160mcg-4.5mcg Inhaler Inhalation, 2 times a day, Maintenance, 01/14/15 14:00:43 Start Date: 01/14/15 Status: Ordered vibegron 75 mg oral tablet 1 tablet = 75 mg, By Mouth, Daily, # 30 tablet, 2 Refills, Maintenance, 07/29/20 15:03:00 EDT, Tablet, [facility] #[id number], Partial fill upon patient request if the prescription is for a schedule II opioid drug., 153, cm, 07/08/20 15:22:00 EDT... Start Date: 07/29/20 Status: Ordered Victoza 18 mg/3 mL subcutaneous solution = 1.8 mg, Subcutaneous Infusion, Daily, # 18 mL, 1 Refills, Maintenance, 10/22/21 13:42:00 EDT, [facility] #[id number], e11.65, 153, cm, 07/08/20 15:22:00 EDT, Height [...] Team Personnel Name: Rito Irving MD Position: [facility] Physician (General Medicine) Member Role: PCP Address: Address: [address] [place] [id number] [place] [address] Name: Azra CAREY, Robin Position: [facility] RN Member Role: Primary Care Nurse Care Team Related Persons Name: ROGER CABRALES Address: home [address] [address] Name: MAHNAZ LEYVA Address: home [address] [place] [address]
--- OUTSIDE RECORDS SUMMARY | 2022-05-27 10:38 | XMS_ITS | Continuity of Care Document ---
Author Name Unknown Organization [facility] ter Address [address] [place] [address]- Care Team Providers Care Moisture Meter Reader Name Role Phone Rito Irving MD Primary Care Physician Encounter [facility] Date(s): 06/11/19 - 06/21/[address] [address]- [facility] Attending Physician: AdmJr chowdhury Admitting Physician: AdmtrJr [...] 0, 0, 05/16/07 1:47:09, Print JOE Number, [id number], Constant Indicator Start Date: 05/16/07 Status: Ordered [...] 2 liters by nasal cannula at night, [facility] Start Date: 01/29/08 Status: Ordered Pen [place], 31 G x 5 mm BD Ultra Fine III See Instructions, # 400 each, Refills 2, Tot. Refills 2, Maintenance, for use with novolog flexpen and lantus solostar pen 4 times a day, 10/01/12 14:15:51, Compound Start Date: 10/01/12 Stop Date: 06/28/13 Status: Ordered Pen [place], 32 G x 4 mm BD Ultra [...] 8:56:45, bilateral wrist splints for carpal tunnel, [facility] Start Date: 12/27/07 Status: Ordered Symbicort [...]
--- OUTSIDE RECORDS SUMMARY | 2022-05-27 10:38 | XMS_ITS | Continuity of Care Document ---
Author Name Unknown Organization [facility] [employer] Address [address] [place] [address], [address] [place] [address]- Care Team Providers Care Scoop Machine Operator Name Role Phone Rito Irving MD Primary Care Physician Encounter [facility] ACCT R [id number] Date(s): 08/30/21 - 10/22/21 [facility] [employer] [address] [facility] [place], [place] [address] Attending Physician: Niesha Parada MD Admitting Physician: Niesha Parada MD Referring Physician: Rito Irving MD Allergies, [...] 0, Maintenance, E11.9: Fortesting glucose levels: [facility] [id number], 02/06/20 16:57:00 EST, Compound, 152.4, cm, 10/19/19 [...] 0, Maintenance, E11.9: Fortesting glucose levels: [facility] [id number], 05/27/20 14:59:00 EDT, Compound, 152.4, cm, 12/22/18 [...] 6 Refills, Soft Stop, 06/12/21 11:36:00 EDT, [facility] #[id number], Partial fill upon patient request if the prescription is for a schedule II opioid drug., 153, cm, 07/08/20 15:22:00 EDT, Height Start Date: 06/12/21 Status: Ordered Basaglar KwikPen 100 units/mL subcutaneous solution See Instructions, Subcutaneous Injection 54 U QD DX E11.65, # 20 mL, 6 Refills, Maintenance, 07/27/21 14:05:00 EDT, [facility] #[id number], Partial fill upon patient request if the prescription is for a schedule II opioid drug., 153, cm, 05/0... Start Date: 07/27/21 Status: Ordered Clonazepam 1, mg, By Mouth, 2 times a day, 0, 0, 05/16/07 1:47:09, Print JOE Number, [id number], Constant Indicator Start Date: 05/16/07 Status: Ordered [...] Refills, Maintenance, 07/15/20 8:40:00 EDT, ER Tablet, [facility] #[id number], Partial fill upon patient request if the [...] mL, 6 Refills, Maintenance, 08/03/21 17:11:00 EDT, [facility] #[id number], Partial fill upon patient request if the [...] mL, 5 Refills, Maintenance, 01/06/21 23:20:00 EDT[facility] Start Date: 01/06/21 Status: Ordered Omeprazole By Mouth, Daily, 0 Refills, Maintenance, 01/14/15 14:01:19 Start Date: 01/14/15 Status: Ordered Oxycodone = 5 mg, By Mouth, PRN as needed for pain, 0 Refills, Maintenance, 05/19/14 16:22:30 Start Date: 05/19/14 Status: Ordered Oxygen Supplies See Instructions, 0, 0, 01/29/08 16:46:30, 2 liters by nasal cannula at night, [facility] Start Date: 01/29/08 Status: Ordered Pen [place], 31 G x 5 mm BD Ultra Fine III See Instructions, # 400 each, Refills 3, Tot. Refills 3, Maintenance, e11.9, for use with novolog flexpen and lantus solostar pen 4 times a day, 10/07/21 16:04:00 EDT, Compound, 153, cm, 07/08/20 15:22:00 EDT, Height Start Date: 10/07/21 Stop Date: 10/02/22 Status: Ordered Pen [place], 32 G x 4 mm BD Ultra [...] 8:56:45, bilateral wrist splints for carpal tunnel, [facility] Start Date: 12/27/07 Status: Ordered Symbicort 160mcg-4.5mcg Inhaler Inhalation, 2 times a day, Maintenance, 01/14/15 14:00:43 Start Date: 01/14/15 Status: Ordered vibegron 75 mg oral tablet 1 tablet = 75 mg, By Mouth, Daily, # 30 tablet, 2 Refills, Maintenance, 07/29/20 15:03:00 EDT, Tablet, [facility] #[id number], Partial fill upon patient request if the prescription is for a schedule II opioid drug., 153, cm, 07/08/20 15:22:00 EDT... Start Date: 07/29/20 Status: Ordered Victoza 18 mg/3 mL subcutaneous solution = 1.8 mg, Subcutaneous Infusion, Daily, # 18 mL, 1 Refills, Maintenance, 10/22/21 13:42:00 EDT, [facility] #[id number], e11.65, 153, cm, 07/08/20 15:22:00 EDT, Height [...]
--- OUTSIDE RECORDS SUMMARY | 2022-05-27 10:38 | XMS_ITS | Continuity of Care Document ---
Author Name Unknown Organization [facility] Address [address] [place] [address]- Care Team Providers Care Ski Patroller Name Role Phone Rito Irving MD Primary Care Physician Encounter [facility] Date(s): 06/11/21 - 07/11/21 [facility] [address] [place] [id number] Allergies, Adverse Reactions, Alerts Substance Reaction [...] [facility] [id number], 02/06/20 16:57:00 EST, Compound, 152.4, cm, 12/22/18 [...] [facility] [id number], 05/27/20 14:59:00 EDT, Compound, 152.4, cm, 12/22/18 [...] 6 Refills, Soft Stop, 06/12/21 11:36:00 EDT, [facility] #[id number], Partial fill upon patient request if the prescription is for a schedule II opioid drug., 153, cm, 07/08/20 15:22:00 EDT, Height Start Date: 06/12/21 Status: Ordered Clonazepam 1, mg, By Mouth, 2 times a day, 0, 0, 05/16/07 1:47:09, Print JOE Number, [id number], Constant Indicator Start Date: 05/16/07 Status: Ordered [...] Refills, Maintenance, 07/15/20 8:40:00 EDT, ER Tablet, [facility] #[id number], Partial fill upon patient request if the [...] 6 Refills, Maintenance, 02/28/21 22:25:00 EST, Solution, [facility] #[id number], Partial fill upon patient request if the [...] OPPT Start Date: 01/29/08 Status: Ordered Pen [place], 31 G x 5 mm BD Ultra Fine III See Instructions, # 400 each, Refills 2, Tot. Refills 2, Maintenance, for use with novolog flexpen and lantus solostar pen 4 times a day, 07/30/20 12:48:00 EDT, Compound, 153, cm, 07/08/20 15:22:00 EDT, Height Start Date: 07/30/20 Stop Date: 04/26/21 Status: Ordered Pen [place], 32 G x 4 mm BD Ultra [...] 2 Refills, Maintenance, 07/29/20 15:03:00 EDT, Tablet, [facility] #[id number], Partial fill upon patient request if the prescription is for a schedule II opioid drug., 153, cm, 07/08/20 15:22:00 EDT... Start Date: 07/29/20 Status: Ordered Victoza 18 mg/3 mL subcutaneous solution = 1.8 mg, Subcutaneous Infusion, Daily, for 90 days, # 18 mL, 3 Refills, Hard Stop 10/04/21 15:00:00 EDT, 10/09/20 15:00:00 EDT, [facility] #[id number], e11.65, 153, cm, 07/08/20 15:22:00 EDT, Height Start Date: 10/09/20 Stop Date: 10/04/21 Status: Ordered Victoza 18 mg/3 mL subcutaneous solution = 1.8 mg, Subcutaneous Infusion, Daily, # 18 mL, 1 Refills, Maintenance, 10/04/21 15:00:00 EDT, [facility] #[id number], e11.65, 153, cm, 07/08/20 15:22:00 EDT, Height [...]
--- OUTSIDE RECORDS SUMMARY | 2022-05-27 10:38 | XMS_ITS | Continuity of Care Document ---
Author Name Unknown Organization [facility] Address [address] [place] [address]- Care Team Providers Care Job Hand Name Role Phone Rito Irving MD Primary Care Physician En[place] [facility] Date(s): 11/13/20 - 12/13/20 [facility] [address] [place] [address]- Allergies, Adverse Reactions, Alerts Substance Reaction Severity [...] Maintenance, E11.9: Fortesting glucose levels: [facility] [id number], 02/06/20 16:57:00 EST, Compound, 152.4, cm, 12/22/18 [...] Maintenance, E11.9: Fortesting glucose levels: [facility] [address]-74, 05/27/20 14:59:00 EDT, Compound, 152.4, cm, 12/22/18 [...] mL, 11 Refills, Maintenance, 10/09/20 15:00:00 EDT, [facility] #[id number], e11.65, 153, cm, 07/08/20 15:22:00 EDT, Height Start Date: 10/09/20 Status: Ordered Clonazepam 1, mg, By Mouth, 2 times a day, 0, 0, 05/16/07 1:47:09, Print JOE Number, [id number], Constant Indicator Start Date: 05/16/07 Status: Ordered [...] Refills, Maintenance, 07/15/20 8:40:00 EDT, ER Tablet, [facility] #[id number], Partial fill upon patient request if the [...] mL, 5 Refills, Maintenance, 07/30/20 12:48:00 EDT, [facility] #[id number], E11.65, appointment needed, 153,cm, 07/08/20 15:22:00 EDT, [...] liters by nasal cannula at night, [facility] Start Date: 01/29/08 Status: Ordered Pen [place], 31 G x 5 mm BD Ultra Fine III See Instructions, # 400 each, Refills 2, Tot. Refills 2, Maintenance, for use with novolog flexpen and lantus solostar pen 4 times a day, 07/30/20 12:48:00 EDT, Compound, 153, cm, 07/08/20 15:22:00 EDT, Height Start Date: 07/30/20 Stop Date: 04/26/21 Status: Ordered Pen [place], 32 G x 4 mm BD [...] 2 Refills, Maintenance, 07/29/20 15:03:00 EDT, Tablet, [facility] #[id number], Partial fill upon patient request if the prescription is for a schedule II opioid drug., 153, cm, 07/08/20 15:22:00 EDT... Start Date: 07/29/20 Status: Ordered Victoza 18 mg/3 mL subcutaneous solution = 1.8 mg, Subcutaneous Infusion, Daily, # 18 mL, 3 Refills, Maintenance, 10/09/20 15:00:00 EDT, [facility] #[id number], e11.65, 153, cm, 07/08/20 15:22:00 EDT, Height [...]
--- OUTSIDE RECORDS SUMMARY | 2022-05-27 10:38 | XMS_ITS | Continuity of Care Document ---
Author Name Unknown Organization [facility] ter Address [address] [place] [address]- Care Team Providers Care Pelts Skinner Name Role Phone Aristides HUGHES, Rito S Primary Care Physician Encounter [facility] Date(s): 08/08/19 - 09/08/[address] [address]- [facility] Attending Physician: Alejandro Muller MD [...] 0, 0, 05/16/07 1:47:09, Print JOE Number, [id number], Constant Indicator Start Date: 05/16/07 Status: Ordered [...] 2 liters by nasal cannula at night, [facility] Start Date: 01/29/08 Status: Ordered Pen [place], 31 G x 5 mm BD Ultra Fine III See Instructions, # 400 each, Refills 2, Tot. Refills 2, Maintenance, for use with novolog flexpen and lantus solostar pen 4 times a day, 10/01/12 14:15:51, Compound Start Date: 10/01/12 Stop Date: 06/28/13 Status: Ordered Pen [place], 32 G x 4 mm BD Ultra [...]
--- OUTSIDE RECORDS SUMMARY | 2022-05-27 10:38 | XMS_ITS | Continuity of Care Document ---
Author Name Unknown Organization [facility] Address [address] [place] [address] [address] [place] [address]- Care Team Providers Care Wind Tunnel Mechanic Name Role Phone Rito Irving MD Primary Care Physician Encounter [facility] Date(s): 09/10/19 - 10/10/[address] [place] [address]- [facility] Attending Physician: Jr Benites Admitting Physician: AdmtrJr Referring Physician: Admtr, ArKeven Allergies, Adverse Reactions, Alerts Substance Reaction Severity [...] 0, 0, 05/16/07 1:47:09, Print JOE Number, [id number], Constant Indicator Start Date: 05/16/07 Status: Ordered [...] 2 liters by nasal cannula at night, [facility] Start Date: 01/29/08 Status: Ordered Pen [place], 31 G x 5 mm BD Ultra Fine III See Instructions, # 400 each, Refills 2, Tot. Refills 2, Maintenance, for use with novolog flexpen and lantus solostar pen 4 times a day, 10/01/12 14:15:51, Compound Start Date: 10/01/12 Stop Date: 06/28/13 Status: Ordered Pen [place], 32 G x 4 mm BD Ultra [...] 8:56:45, bilateral wrist splints for carpal tunnel, [facility] Start Date: 12/27/07 Status: Ordered [...]
--- OUTSIDE RECORDS SUMMARY | 2022-05-27 10:38 | XMS_ITS | Continuity of Care Document ---
Author Name Unknown Organization [facility] Address [address] [place] [address], [address] [place] [address]- Care Team Providers Care Gas Flow Regulator Name Role Phone Rito Irving MD [id number]15[facility] [address] [facility], [address] [place], [place] [address] Attending Physician: Niesha Parada MD Admitting [...] Refills 0, Maintenance, E11.9: Fortesting glucose levels: [facility] [id number], 02/06/20 16:57:00 EST, Compound, 152.4, cm, 10/19/19 [...] Refills 0, Maintenance, E11.9: Fortesting glucose levels: [facility] [id number], 05/27/20 14:59:00 EDT, Compound, 152.4, cm, 12/22/18 [...] mL, 11 Refills, Maintenance, 10/09/20 15:00:00 EDT, [facility] #[id number], e11.65, 153, cm, 07/08/20 15:22:00 EDT, Height Start Date: 10/09/20 Status: Ordered Clonazepam 1, mg, By Mouth, 2 times a day, 0, 0, 05/16/07 1:47:09, Print JOE Number, [id number], Constant Indicator Start Date: 05/16/07 Status: Ordered [...] Refills, Maintenance, 07/15/20 8:40:00 EDT, ER Tablet, [facility] #[id number], Partial fill upon patient request if the [...] mL, 5 Refills, Maintenance, 07/30/20 12:48:00 EDT, [facility] #[id number], E11.65, appointment needed, 153,cm, 07/08/20 15:22:00 EDT, [...] OPPT Start Date: 01/29/08 Status: Ordered Pen [place], 31 G x 5 mm BD Ultra Fine III See Instructions, # 400 each, Refills 2, Tot. Refills 2, Maintenance, for use with novolog flexpen and lantus solostar pen 4 times a day, 07/30/20 12:48:00 EDT, Compound, 153, cm, 07/08/20 15:22:00 EDT, Height Start Date: 07/30/20 Stop Date: 04/26/21 Status: Ordered Pen [place], 32 G x 4 mm BD Ultra [...] 2 Refills, Maintenance, 07/29/20 15:03:00 EDT, Tablet, [facility] #[id number], Partial fill upon patient request if the prescription is for a schedule II opioid drug., 153, cm, 07/08/20 15:22:00 EDT... Start Date: 07/29/20 Status: Ordered Victoza 18 mg/3 mL subcutaneous solution = 1.8 mg, Subcutaneous Infusion, Daily, # 18 mL, 3 Refills, Maintenance, 10/09/20 15:00:00 EDT, [facility] #[id number], e11.65, 153, cm, 07/08/20 15:22:00 EDT, Height [...]
--- OUTSIDE RECORDS SUMMARY | 2022-05-27 10:38 | XMS_ITS | Continuity of Care Document ---
Author Name Unknown Organization [facility] Address [address] [facility] [place] [address]- Care Team Providers Care Harness Worker Name Role Phone Rito Irving MD Primary Care Physician Encounter 04/10/19 - 05/31/19 [facility] [address], [facility] [address] [place] [address]- [phone] Attending Physician: Rito Irving MD Admitting Physician: Rito Irving MD Referring Physician: Rito Irving MD Allergies, [...] 0, 0, 05/16/07 1:47:09, Print JOE Number, [id number], Constant Indicator Start Date: 05/16/07 Status: Ordered [...] 2 liters by nasal cannula at night, [facility] Start Date: 01/29/08 Status: Ordered Pen [place], 31 G x 5 mm BD Ultra Fine III See Instructions, # 400 each, Refills 2, Tot. Refills 2, Maintenance, for use with novolog flexpen and lantus solostar pen 4 times a day, 10/01/12 14:15:51, Compound Start Date: 10/01/12 Stop Date: 06/28/13 Status: Ordered Pen [place], 32 G x 4 mm BD Ultra [...] 8:56:45, bilateral wrist splints for carpal tunnel, [facility] Start Date: 12/27/07 Status: Ordered [...]
--- OUTSIDE RECORDS SUMMARY | 2022-05-27 10:38 | XMS_ITS | Continuity of Care Document ---
Author Name Unknown Organization [facility] Address [address] [place] [address]- Care Team Providers Care Veneer Production Machine Operator Name Role Phone Rito Irving MD Primary Care Physician Encounter [facility] Date(s): 10/05/21 - 11/04/21 [facility] [address] [place] [id number] Allergies, Adverse Reactions, Alerts Substance Reaction Severity [...] levels: [facility] [address]-91, 02/06/20 16:57:00 EST, Compound, 152.4, cm, 12/22/18 [...] levels: [facility] [address]-94, 05/27/20 14:59:00 EDT, Compound, 152.4, cm, 12/22/18 [...] 6 Refills, Soft Stop, 06/12/21 11:36:00 EDT, [facility] #[id number], Partial fill upon patient request if the prescription is for a schedule II opioid drug., 153, cm, 07/08/20 15:22:00 EDT, Height Start Date: 06/12/21 Status: Ordered Basaglar KwikPen 100 units/mL subcutaneous solution See Instructions, Subcutaneous Injection 54 U QD DX E11.65, # 20 mL, 6 Refills, Maintenance, 07/27/21 14:05:00 EDT, [facility] #[id number], Partial fill upon patient request if the prescription is for a schedule II opioid drug., 153, cm, 05/0... Start Date: 07/27/21 Status: Ordered Clonazepam 1, mg, By Mouth, 2 times a day, 0, 0, 05/16/07 1:47:09, Print JOE Number, [id number], Constant Indicator Start Date: 05/16/07 Status: Ordered [...] Refills, Maintenance, 07/15/20 8:40:00 EDT, ER Tablet, [facility] #[id number], Partial fill upon patient request if the [...] mL, 6 Refills, Maintenance, 08/03/21 17:11:00 EDT, [facility] #[id number], Partial fill upon patient request if the [...] mL, 5 Refills, Maintenance, 01/06/21 23:20:00 EDT, [facility]... Start Date: 01/06/21 Status: Ordered Omeprazole By Mouth, Daily, 0 Refills, Maintenance, 01/14/15 14:01:19 Start Date: 01/14/15 Status: Ordered Oxycodone = 5 mg, By Mouth, PRN as needed for pain, 0 Refills, Maintenance, 05/19/14 16:22:30 Start Date: 05/19/14 Status: Ordered Oxygen Supplies See Instructions, 0, 0, 01/29/08 16:46:30, 2 liters by nasal cannula at night, [facility] Start Date: 01/29/08 Status: Ordered Pen [place], 31 G x 5 mm BD Ultra Fine III See Instructions, # 400 each, Refills 3, Tot. Refills 3, Maintenance, e11.9, for use with novolog flexpen and lantus solostar pen 4 times a day, 10/07/21 16:04:00 EDT, Compound, 153, cm, 07/08/20 15:22:00 EDT, Height Start Date: 10/07/21 Stop Date: 10/02/22 Status: Ordered Pen [place], 32 G x 4 mm BD Ultra [...] 8:56:45, bilateral wrist splints for carpal tunnel, [facility] Start Date: 12/27/07 Status: Ordered Symbicort 160mcg-4.5mcg Inhaler Inhalation, 2 times a day, Maintenance, 01/14/15 14:00:43 Start Date: 01/14/15 Status: Ordered vibegron 75 mg oral tablet 1 tablet = 75 mg, By Mouth, Daily, # 30 tablet, 2 Refills, Maintenance, 07/29/20 15:03:00 EDT, Tablet, [facility] #[id number], Partial fill upon patient request if the prescription is for a schedule II opioid drug., 153, cm, 07/08/20 15:22:00 EDT... Start Date: 07/29/20 Status: Ordered Victoza 18 mg/3 mL subcutaneous solution = 1.8 mg, Subcutaneous Infusion, Daily, # 18 mL, 1 Refills, Maintenance, 10/22/21 13:42:00 EDT, [facility] #[id number], e11.65, 153, cm, 07/08/20 15:22:00 EDT, Height [...] Status Former smoker entered on: 01/14/15 Sex Care Team Personnel Name: Rito Irving MD Address: [address] [place] [address]
--- OUTSIDE RECORDS SUMMARY | 2022-05-27 10:38 | XMS_ITS | Continuity of Care Document ---
Author Name Unknown Organization [facility] Address [address] [facility], [address]t [place] [address]- Care Team Providers Care Board Member Name Role Phone Rito Irving MD S Primary Care Physician Encounter [facility] Date(s): 07/10/20 - 08/09/20 [facility] [address] [facility], [address]th [place] [address]- Allergies, Adverse Reactions, Alerts Substance Reaction Severity [...] E11.9: Fortesting glucose levels: [facility] [address]-67, 02/06/20 16:57:00 EST, Compound, 152.4, cm, 12/22/18 [...] E11.9: Fortesting glucose levels: [facility] [address]-02, 05/27/20 14:59:00 EDT, Compound, 152.4, cm, 12/22/18 [...] 0, 0, 05/16/07 1:47:09, Print JOE Number, [id number], Constant Indicator Start Date: 05/16/07 Status: Ordered [...] Refills, Maintenance, 07/15/20 8:40:00 EDT, ER Tablet, [facility] #[id number], Partial fill upon patient request if the [...] mL, 5 Refills, Maintenance, 07/30/20 12:48:00 EDT, [facility] #[id number], E11.65, appointment needed, 153,cm, 07/08/20 15:22:00 EDT, [...] liters by nasal cannula at night, [facility] Start Date: 01/29/08 Status: Ordered Pen [place], 31 G x 5 mm BD Ultra Fine III See Instructions, # 400 each, Refills 2, Tot. Refills 2, Maintenance, for use with novolog flexpen and lantus solostar pen 4 times a day, 07/30/20 12:48:00 EDT, Compound, 153, cm, 07/08/20 15:22:00 EDT, Height Start Date: 07/30/20 Stop Date: 04/26/21 Status: Ordered Pen [place], 32 G x 4 mm BD Ultra [...] 2 Refills, Maintenance, 07/29/20 15:03:00 EDT, Tablet, [facility] #[id number], Partial fill upon patient request if the prescription is for a schedule II opioid drug., 153, cm, 07/08/20 15:22:00 EDT... Start Date: 07/29/20 Status: Ordered Victoza 18 mg/3 mL subcutaneous solution = 1.8 mg, Subcutaneous Infusion, Daily, # 18 mL, 3 Refills, Maintenance, 06/26/20 14:32:00 EDT, [facility] #[id number], e11.65, 152.4, cm, 12/22/18 9:07:00 EDT, Height [...]
--- OUTSIDE RECORDS SUMMARY | 2022-05-27 10:39 | XMS_ITS | Continuity of Care Document ---
Author Name Unknown Organization [facility] Address [address] [place] [address]- Care Team Providers Care Customer Solutions Supervisor Name Role Phone Rito Irving MD Primary Care Physician [place] [facility] [place]s): 04/29/21 - 05/29/[address] [address]- Attending Physician: Jr Benites Admitting Physician: AdmJr [...] Refills 0, Maintenance, E11.9: Fortesting glucose levels: [facility] [address]-66, 02/06/20 16:57:00 EST, Compound, 152.4, cm, 12/22/18 [...] Refills 0, Maintenance, E11.9: Fortesting glucose levels: [facility] [address]-98, 05/27/20 14:59:00 EDT, Compound, 152.4, cm, 12/22/18 [...] 0, 0, 05/16/07 1:47:09, Print JOE Number, [id number], Constant Indicator Start Date: 05/16/07 Status: Ordered [...] Refills, Maintenance, 07/15/20 8:40:00 EDT, ER Tablet, [facility] #[id number], Partial fill upon patient request if the [...] 6 Refills, Maintenance, 02/28/21 22:25:00 EST, Solution, [facility] #[id number], Partial fill upon patient request if the [...] OPPT Start Date: 01/29/08 Status: Ordered Pen [place], 31 G x 5 mm BD Ultra Fine III See Instructions, # 400 each, Refills 2, Tot. Refills 2, Maintenance, for use with novolog flexpen and lantus solostar pen 4 times a day, 07/30/20 12:48:00 EDT, Compound, 153, cm, 07/08/20 15:22:00 EDT, Height Start Date: 07/30/20 Stop Date: 04/26/21 Status: Ordered Pen [place], 32 G x 4 mm BD Ultra [...] 2 Refills, Maintenance, 07/29/20 15:03:00 EDT, Tablet, [facility][id number], Partial fill upon patient request if the prescription is for a schedule II opioid drug., 153, cm, 07/08/20 15:22:00 EDT... Start Date: 07/29/20 Status: Ordered Victoza 18 mg/3 mL subcutaneous solution = 1.8 mg, Subcutaneous Infusion, Daily, for 90 days, # 18 mL, 3 Refills, Hard Stop 10/04/21 15:00:00 EDT, 10/09/20 15:00:00 EDT, [facility] #[id number], e11.65, 153, cm, 07/08/20 15:22:00 EDT, Height Start Date: 10/09/20 Stop Date: 10/04/21 Status: Ordered Victoza 18 mg/3 mL subcutaneous solution = 1.8 mg, Subcutaneous Infusion, Daily, # 18 mL, 1 Refills, Maintenance, 10/04/21 15:00:00 EDT, [facility] #[id number], e11.65, 153, cm, 07/08/20 15:22:00 EDT, Height [...]
--- OUTSIDE RECORDS SUMMARY | 2022-05-27 10:39 | XMS_ITS | Continuity of Care Document ---
Author Name Unknown Organization [facility] Address [address] [place] [address]- Care Team Providers Care Wood Planer Name Role Phone Aristides HUGHES, Rito S Primary Care Physician Encounter [facility] Date(s): 05/13/19 - 07/11/[address] [address]- [facility] Attending Physician: Alejandro Muller MD Admitting Physician: [...] 0, 0, 05/16/07 1:47:09, Print JOE Number, [id number], Constant Indicator Start Date: 05/16/07 Status: Ordered [...] liters by nasal cannula at night, [facility] Start Date: 01/29/08 Status: Ordered Pen [place], 31 G x 5 mm BD Ultra Fine III See Instructions, # 400 each, Refills 2, Tot. Refills 2, Maintenance, for use with novolog flexpen and lantus solostar pen 4 times a day, 10/01/12 14:15:51, Compound Start Date: 10/01/12 Stop Date: 06/28/13 Status: Ordered Pen [place], 32 G x 4 mm BD Ultra [...] bilateral wrist splints for carpal tunnel, [facility] Start Date: 12/27/07 Status: Ordered [...]
--- OUTSIDE RECORDS SUMMARY | 2022-05-27 10:39 | XMS_ITS | Continuity of Care Document ---
Author Name Unknown Organization [facility] [email or web address] Address [address] [place] [address], [address] [place] [address]- Care Team Providers Care Business Analyst Ecommerce Name Role Phone Rito Irving MD Primary Care Physician [id number]13[facility] - 06/24/20 [facility] [address] [facility], [address] [place], [place] [address] Attending Physician: Teresa Malone MD Admitting Physician: Teresa Malone MD Referring Physician: Rito Irving MD Allergies, [...] E11.9: Fortesting glucose levels: [facility] [id number], 02/06/20 16:57:00 EST, Compound, 152.4, cm, 10/19/19 9:07:00 EDT, Height Start Date: 02/06/20 Status: Ordered 14 day drew reader 14 day drew reader, See Instructions, # 1 each, Refills 0, Tot. Refills 0, Maintenance, E11.9: Fortesting glucose levels: [facility] [address]-03, 05/27/20 14:59:00 EDT, Compound, 152.4, cm, 12/22/18 9:07:00 EDT, Height Start Date: 05/27/20 Status: Ordered 14 day drew sensor 14 day drew sensor, See Instructions, # 2 each, Refills 11, Tot. Refills 11, Maintenance, E 11.9: for testing glucose lev els. [facility] [id number], 02/06/20 16:57:00 EST, Compound, 152.4, cm, :07:00 EDT, Height Start Date: 02/06/20 Status: Ordered 14 day drew sensor 14 day drew sensor, See Instructions, # 2 each, Refills 11, Tot. Refills 11, Maintenance, E 11.9: for testing glucose lev els. [facility] [id number], 05/27/20 14:59:00 EDT, Compound, 152.4, cm, :07:00 [...] 0, 0, 05/16/07 1:47:09, Print JOE Number, [id number], Constant Indicator Start Date: 05/16/07 Status: Ordered [...] OPPTHS Start Date: 01/29/08 Status: Ordered Pen [place], 31 G x 5 mm BD Ultra Fine III See Instructions, # 400 each, Refills 2, Tot. Refills 2, Maintenance, for use with novolog flexpen and lantus solostar pen 4 times a day, 10/01/12 14:15:51, Compound Start Date: 10/01/12 Stop Date: 06/28/13 Status: Ordered Pen [place], 32 G x 4 mm BD Ultra [...] mL, 3 Refills, Maintenance, 06/26/20 14:32:00 EDT, [facility] #[id number], e11.65, 152.4, cm, 12/22/18 9:07:00 EDT, Height Start Date: 06/26/20 Stop Date: 06/21/21 Status: Ordered Victoza 18 mg/3 mL subcutaneous solution = 1.8 mg, Subcutaneous Infusion, Daily, for 90 days, appointment needed, # 18 mL, 5 Refills, Hard Stop 06/26/20 14:32:15 EDT, 01/03/19 14:32:15 EDT, [facility] #[id number], e11.65 Start Date: 01/03/19 Stop Date: 06/26/20 [...]
--- OUTSIDE RECORDS SUMMARY | 2022-05-27 10:39 | XMS_ITS | Continuity of Care Document ---
Author Name Unknown Organization [facility] Address [address] [place] [address]- Care Team Providers Care Photographic Platemaker Name Role Phone Rito Irving MD Primary Care Physician Encounter [facility] Date(s): 08/19/20 - 09/19/20 [facility] [address] [place] [id number] Attending Physician: Alejandro Muller MD Admitting Physician: [...] Refills 0, Maintenance, E11.9: Fortesting glucose levels: [facility] [address]-85, 02/06/20 16:57:00 EST, Compound, 152.4, cm, 12/22/18 [...] Refills 0, Maintenance, E11.9: Fortesting glucose levels: [facility] [id number], 05/27/20 14:59:00 EDT, Compound, 152.4, cm, 12/22/18 [...] 0, 0, 05/16/07 1:47:09, Print JOE Number, [id number], Constant Indicator Start Date: 05/16/07 Status: Ordered [...] Refills, Maintenance, 07/15/20 8:40:00 EDT, ER Tablet, [facility] #[id number], Partial fill upon patient request if the [...] mL, 5 Refills, Maintenance, 07/30/20 12:48:00 EDT, [facility] #[id number], E11.65, appointment needed, 153,cm, 07/08/20 15:22:00 EDT, [...] OPPT Start Date: 01/29/08 Status: Ordered Pen [place], 31 G x 5 mm BD Ultra Fine III See Instructions, # 400 each, Refills 2, Tot. Refills 2, Maintenance, for use with novolog flexpen and lantus solostar pen 4 times a day, 07/30/20 12:48:00 EDT, Compound, 153, cm, 07/08/20 15:22:00 EDT, Height Start Date: 07/30/20 Stop Date: 04/26/21 Status: Ordered Pen [place], 32 G x 4 mm BD Ultra Fine III See Instructions, # 150 each, Refills 11, Tot. Refills 11, Maintenance, for use 5x daily with insulin pens and Victoza, 10/01/19 15:46:50 EDT, e11.65, Compound Start Date: 12/04/18 [...] 2 Refills, Maintenance, 07/29/20 15:03:00 EDT, Tablet, [facility] #[id number], Partial fill upon patient request if the prescription is for a schedule II opioid drug., 153, cm, 07/08/20 15:22:00 EDT... Start Date: 07/29/20 Status: Ordered Victoza 18 mg/3 mL subcutaneous solution = 1.8 mg, Subcutaneous Infusion, Daily, # 18 mL, 3 Refills, Maintenance, 06/26/20 14:32:00 EDT, [facility] #[id number], e11.65, 152.4, cm, 12/22/18 9:07:00 EDT, Height [...]
--- OUTSIDE RECORDS SUMMARY | 2022-05-27 10:39 | XMS_ITS | Continuity of Care Document ---
Author Name Unknown Organization [facility] Address [address] [place] [address]- Care Team Providers Care Senior Production Supervisor Name Role Phone Rito Irving MD Primary Care Physician Encounter [facility] Date(s): 01/26/22 - 02/25/22 [facility] [address] [place], [place] [id number]- [place] Allergies, Adverse Reactions, Alerts Substance Reaction Severity [...] Refills 0, Maintenance, E11.9: Fortesting glucose levels: [facility] [address]-37, 02/06/20 16:57:00 EST, Compound, 152.4, cm, 12/22/18 [...] Refills 0, Maintenance, E11.9: Fortesting glucose levels: [facility] [address]-74, 05/27/20 14:59:00 EDT, Compound, 152.4, cm, 12/22/18 [...] 6 Refills, Soft Stop, 06/12/21 11:36:00 EDT, [facility] #[id number], Partial fill upon patient request if the prescription is for a schedule II opioid drug., 153, cm, 07/08/20 15:22:00 EDT, Height Start Date: 06/12/21 Status: Ordered Basaglar KwikPen 100 units/mL subcutaneous solution See Instructions, Subcutaneous Injection 54 U QD DX E11.65, # 20 mL, 6 Refills, Maintenance, 07/27/21 14:05:00 EDT, [facility] #[id number], Partial fill upon patient request if the prescription is for a schedule II opioid drug., 153, cm, 050... Start Date: 07/27/21 Status: Ordered Clonazepam 1, mg, By Mouth, 2 times a day, 0, 0, 05/16/07 1:47:09, Print JOE Number, [id number], Constant Indicator Start Date: 05/16/07 Status: Ordered [...] Refills, Maintenance, 07/15/20 8:40:00 EDT, ER Tablet, [facility] #[id number], Partial fill upon patient request if the [...] mL, 6 Refills, Maintenance, 02/03/22 16:10:00 EST, [facility]/pharmacy #[id number], 153, cm, 12/09/21 13:35:... Start Date: 02/03/22 Status: Ordered Lantus Solostar Pen 100 units/mL subcutaneous solution = 70 units, Daily at bedtime, 0 Refills Start Date: 03/02/09 Stop Date: 03/31/09 Status: Ordered Lantus Solostar Pen 100 units/mL subcutaneous solution See Instructions, Subcutaneous Injection QD 54 U Dx E11.65 FILL [facility] ONLY, # 30 mL, 6 Refills, Maintenance, 08/03/21 17:11:00 EDT, [facility] #[id number], Partial fill upon patient request if the [...] liters by nasal cannula at night, [facility] Start Date: 01/29/08 Status: Ordered Pen [place], 31 G x 5 mm BD Ultra Fine III See Instructions, # 400 each, Refills 3, Tot. Refills 3, Maintenance, e11.9, for use with novolog flexpen and lantus solostar pen 4 times a day, 10/07/21 16:04:00 EDT, Compound, 153, cm, 07/08/20 15:22:00 EDT, Height Start Date: 10/07/21 Stop Date: 10/02/22 Status: Ordered Pen [place], 32 G x 4 mm BD Ultra [...] bilateral wrist splints for carpal tunnel, [facility] Start Date: 12/27/07 Status: Ordered Symbicort 160mcg-4.5mcg Inhaler Inhalation, 2 times a day, Maintenance, 01/14/15 14:00:43 Start Date: 01/14/15 Status: Ordered vibegron 75 mg oral tablet 1 tablet = 75 mg, By Mouth, Daily, # 30 tablet, 2 Refills, Maintenance, 07/29/20 15:03:00 EDT, Tablet, [facility] #[id number], Partial fill upon patient request if the prescription is for a schedule II opioid drug., 153, cm, 07/08/20 15:22:00 EDT... Start Date: 07/29/20 Status: Ordered Victoza 18 mg/3 mL subcutaneous solution = 1.8 mg, Subcutaneous Infusion, Daily, # 18 mL, 1 Refills, Maintenance, 10/22/21 13:42:00 EDT, [facility] #[id number], e11.65, 153, cm, 07/08/20 15:22:00 EDT, Height [...] Team Personnel Name: Rito Irving MD Position: [facility] Physician (General Medicine) Member Role: PCP Address: Address: [address] [place] [address]- Name: Azra CAREY, Robin Position: [facility] RN Member Role: Primary Care Nurse Care Team Related Persons Name: ROGER CABRALES Address: home [address] [address] Name: MAHNAZ LEYVA Address: home [address] [place] [address]
--- OUTSIDE RECORDS SUMMARY | 2022-05-27 10:39 | XMS_ITS | Continuity of Care Document ---
Author Name Unknown Organization [facility] Address [address] [place] [address]- Care Team Providers Care Director Learning Name Role Phone Rito Irving MD Primary Care Physician Encounter [facility] [id number] Date(s): 10/01/19 - 11/07/[address] [address]- [facility] Attending Physician: Not on Staff, Attending MD Referring Physician: Rito Irving MD Allergies, [...] 0, 0, 05/16/07 1:47:09, Print JOE Number, [id number], Constant Indicator Start Date: 05/16/07 Status: Ordered [...] 2 liters by nasal cannula at night, [facility] Start Date: 01/29/08 Status: Ordered Pen [place], 31 G x 5 mm BD Ultra Fine III See Instructions, # 400 each, Refills 2, Tot. Refills 2, Maintenance, for use with novolog flexpen and lantus solostar pen 4 times a day, 10/01/12 14:15:51, Compound Start Date: 10/01/12 Stop Date: 06/28/13 Status: Ordered Pen [place], 32 G x 4 mm BD Ultra [...] 8:56:45, bilateral wrist splints for carpal tunnel, [facility] Start Date: 12/27/07 Status: Ordered [...]
--- OUTSIDE RECORDS SUMMARY | 2022-05-27 10:39 | XMS_ITS | Continuity of Care Document ---
Author Name Unknown Organization [facility] Diabetes Address [address] [place] [address]- Care Team Providers Care Packager And Strapper Name Role Phone Rito Irving MD Primary Care Physician Encounter [facility] Date(s): 01/17/22 - 02/16/22 [facility] [address] [place] [id number] Allergies, Adverse Reactions, Alerts Substance Reaction Severity [...] 0, Maintenance, E11.9: Fortesting glucose levels: [facility] [address]-83, 02/06/20 16:57:00 EST, Compound, 152.4, cm, 12/22/18 [...] 0, Maintenance, E11.9: Fortesting glucose levels: [facility] [address]-99, 05/27/20 14:59:00 EDT, Compound, 152.4, cm, 12/22/18 [...] 6 Refills, Soft Stop, 06/12/21 11:36:00 EDT, [facility] #[id number], Partial fill upon patient request if the prescription is for a schedule II opioid drug., 153, cm, 07/08/20 15:22:00 EDT, Height Start Date: 06/12/21 Status: Ordered Basaglar KwikPen 100 units/mL subcutaneous solution See Instructions, Subcutaneous Injection 54 U QD DX E11.65, # 20 mL, 6 Refills, Maintenance, 07/27/21 14:05:00 EDT, [facility] #[id number], Partial fill upon patient request if the prescription is for a schedule II opioid drug., 153, cm, 05/0... Start Date: 07/27/21 Status: Ordered Clonazepam 1, mg, By Mouth, 2 times a day, 0, 0, 05/16/07 1:47:09, Print JOE Number, [id number], Constant Indicator Start Date: 05/16/07 Status: Ordered [...] Refills, Maintenance, 07/15/20 8:40:00 EDT, ER Tablet, [facility] #[id number], Partial fill upon patient request if the [...] mL, 6 Refills, Maintenance, 02/03/22 16:10:00 EST, [facility]/pharmacy #[id number], 153, cm, 12/09/21 13:35:... Start Date: 02/03/22 Status: Ordered Lantus Solostar Pen 100 units/mL subcutaneous solution = 70 units, Daily at bedtime, 0 Refills Start Date: 03/02/09 Stop Date: 03/31/09 Status: Ordered Lantus Solostar Pen 100 units/mL subcutaneous solution See Instructions, Subcutaneous Injection QD 54 U Dx E11.65 FILL [facility] ONLY, # 30 mL, 6 Refills, Maintenance, 08/03/21 17:11:00 EDT, [facility] #[id number], Partial fill upon patient request if the [...] liters by nasal cannula at night, [facility] Start Date: 01/29/08 Status: Ordered Pen [place], 31 G x 5 mm BD Ultra Fine III See Instructions, # 400 each, Refills 3, Tot. Refills 3, Maintenance, e11.9, for use with novolog flexpen and lantus solostar pen 4 times a day, 10/07/21 16:04:00 EDT, Compound, 153, cm, 07/08/20 15:22:00 EDT, Height Start Date: 10/07/21 Stop Date: 10/02/22 Status: Ordered Pen [place], 32 G x 4 mm BD Ultra [...] bilateral wrist splints for carpal tunnel, [facility] Start Date: 12/27/07 Status: Ordered Symbicort 160mcg-4.5mcg Inhaler Inhalation, 2 times a day, Maintenance, 01/14/15 14:00:43 Start Date: 01/14/15 Status: Ordered vibegron 75 mg oral tablet 1 tablet = 75 mg, By Mouth, Daily, # 30 tablet, 2 Refills, Maintenance, 07/29/20 15:03:00 EDT, Tablet, [facility] #[id number], Partial fill upon patient request if the prescription is for a schedule II opioid drug., 153, cm, 07/08/20 15:22:00 EDT... Start Date: 07/29/20 Status: Ordered Victoza 18 mg/3 mL subcutaneous solution = 1.8 mg, Subcutaneous Infusion, Daily, # 18 mL, 1 Refills, Maintenance, 10/22/21 13:42:00 EDT, [facility] #[id number], e11.65, 153, cm, 07/08/20 15:22:00 EDT, Height [...] Team Personnel Name: Rito Irving MD Position: [facility] Physician (General Medicine) Member Role: PCP Address: Address: [address] [place] [id number] [place] [address] Name: Azra CAREY, Robin Position: [facility] RN Member Role: Primary Care Nurse Care Team Related Persons Name: ROGER CABRALES Address: home [address] [address] Name: MAHNAZ LEYVA Address: home [address] [place] [address]
--- OUTSIDE RECORDS SUMMARY | 2022-05-27 10:39 | XMS_ITS | Continuity of Care Document ---
Author Name Unknown Organization [facility] Address [address] [place] [address]- Care Team Providers Care Fruit Preserver Name Role Phone Rito Irving MD Primary Care Physician [place] [facility] Date(s): 06/10/21 - 07/10/[address] [address] Attending Physician: Admtr, Jr Admitting Physician: Admtr, Jr Referring Physician: Admtr, Ar8 Allergies, Adverse Reactions, Alerts Substance Reaction Severity [...] glucose levels: [facility] [id number], 02/06/20 16:57:00 EST, Compound, 152.4, cm, 12/22/18 [...] glucose levels: [facility] [id number], 05/27/20 14:59:00 EDT, Compound, 152.4, cm, 12/22/18 [...] 6 Refills, Soft Stop, 06/12/21 11:36:00 EDT, [facility] #[id number], Partial fill upon patient request if the prescription is for a schedule II opioid drug., 153, cm, 07/08/20 15:22:00 EDT, Height Start Date: 06/12/21 Status: Ordered Clonazepam 1, mg, By Mouth, 2 times a day, 0, 0, 05/16/07 1:47:09, Print JOE Number, [id number], Constant Indicator Start Date: 05/16/07 Status: Ordered [...] Refills, Maintenance, 07/15/20 8:40:00 EDT, ER Tablet, [facility] #[id number], Partial fill upon patient request if the [...] 6 Refills, Maintenance, 02/28/21 22:25:00 EST, Solution, [facility] #[id number], Partial fill upon patient request if the [...] OPPTHS Start Date: 01/29/08 Status: Ordered Pen [place], 31 G x 5 mm BD Ultra Fine III See Instructions, # 400 each, Refills 2, Tot. Refills 2, Maintenance, for use with novolog flexpen and lantus solostar pen 4 times a day, 07/30/20 12:48:00 EDT, Compound, 153, cm, 07/08/20 15:22:00 EDT, Height Start Date: 07/30/20 Stop Date: 04/26/21 Status: Ordered Pen [place], 32 G x 4 mm BD Ultra [...] 2 Refills, Maintenance, 07/29/20 15:03:00 EDT, Tablet, [facility] #[id number], Partial fill upon patient request if the prescription is for a schedule II opioid drug., 153, cm, 07/08/20 15:22:00 EDT... Start Date: 07/29/20 Status: Ordered Victoza 18 mg/3 mL subcutaneous solution = 1.8 mg, Subcutaneous Infusion, Daily, for 90 days, # 18 mL, 3 Refills, Hard Stop 10/04/21 15:00:00 EDT, 10/09/20 15:00:00 EDT, [facility] #[id number], e11.65, 153, cm, 07/08/20 15:22:00 EDT, Height Start Date: 10/09/20 Stop Date: 10/04/21 Status: Ordered Victoza 18 mg/3 mL subcutaneous solution = 1.8 mg, Subcutaneous Infusion, Daily, # 18 mL, 1 Refills, Maintenance, 10/04/21 15:00:00 EDT, [facility] #[id number], e11.65, 153, cm, 07/08/20 15:22:00 EDT, Height [...]
--- OUTSIDE RECORDS SUMMARY | 2022-05-27 10:39 | XMS_ITS | Continuity of Care Document ---
Author Name Unknown Organization [facility] Address [address] [place] [address]- Care Team Providers Care Corporate Administrator Name Role Phone Rito Irving MD Primary Care Physician En[place] [facility] Date(s): 01/21/21 - 02/20/21 [facility] [address] [place] [address]- Allergies, Adverse Reactions, Alerts Substance Reaction Severity [...] E11.9: Fortesting glucose levels: [facility] [address]-47, 02/06/20 16:57:00 EST, Compound, 152.4, cm, 12/22/18 [...] E11.9: Fortesting glucose levels: [facility] [id number], 05/27/20 14:59:00 EDT, Compound, 152.4, cm, 12/22/18 [...] mL, 11 Refills, Maintenance, 10/09/20 15:00:00 EDT, [facility] #[id number], e11.65, 153, cm, 07/08/20 15:22:00 EDT, Height Start Date: 10/09/20 Status: Ordered Clonazepam 1, mg, By Mouth, 2 times a day, 0, 0, 05/16/07 1:47:09, Print JOE Number, [id number], Constant Indicator Start Date: 05/16/07 Status: Ordered [...] Refills, Maintenance, 07/15/20 8:40:00 EDT, ER Tablet, [facility] #[id number], Partial fill upon patient request if the [...] OPPT Start Date: 01/29/08 Status: Ordered Pen [place], 31 G x 5 mm BD Ultra Fine III See Instructions, # 400 each, Refills 2, Tot. Refills 2, Maintenance, for use with novolog flexpen and lantus solostar pen 4 times a day, 07/30/20 12:48:00 EDT, Compound, 153, cm, 07/08/20 15:22:00 EDT, Height Start Date: 07/30/20 Stop Date: 04/26/21 Status: Ordered Pen [place], 32 G x 4 mm BD Ultra [...] 2 Refills, Maintenance, 07/29/20 15:03:00 EDT, Tablet, [facility] #[id number], Partial fill upon patient request if the prescription is for a schedule II opioid drug., 153, cm, 07/08/20 15:22:00 EDT... Start Date: 07/29/20 Status: Ordered Victoza 18 mg/3 mL subcutaneous solution = 1.8 mg, Subcutaneous Infusion, Daily, # 18 mL, 3 Refills, Maintenance, 10/09/20 15:00:00 EDT, [facility] #[id number], e11.65, 153, cm, 07/08/20 15:22:00 EDT, Height [...]
--- OUTSIDE RECORDS SUMMARY | 2022-05-27 10:39 | XMS_ITS | Continuity of Care Document ---
Author Name Unknown Organization [facility] Address [address] [place] [address]- Care Team Providers Care Senior Market Intelligence Consultant Name Role Phone Rito Irving MD Primary Care Physician Encounter [facility] Date(s): 03/27/20 - 04/26/20 [facility] [address] [place] [address]- Allergies, Adverse Reactions, Alerts Substance Reaction Severity [...] Fortesting glucose levels: [facility] [id number], 02/06/20 16:57:00 EST, Compound, 152.4, cm, 12/22/18 9:07:00 EDT, Height Start Date: 02/06/20 Status: Ordered 14 day drew sensor 14 day drew sensor, See Instructions, # 2 each, Refills 11, Tot. Refills 11, Maintenance, E 11.9: for testing glucose lev els. [facility] [id number], 02/06/20 16:57:00 EST, Compound, 152.4, cm, 199:07:00 [...] 0, 0, 05/16/07 1:47:09, Print JOE Number, [id number], Constant Indicator Start Date: 05/16/07 Status: Ordered [...] OPPT Start Date: 01/29/08 Status: Ordered Pen [place], 31 G x 5 mm BD Ultra Fine III See Instructions, # 400 each, Refills 2, Tot. Refills 2, Maintenance, for use with novolog flexpen and lantus solostar pen 4 times a day, 10/01/12 14:15:51, Compound Start Date: 10/01/12 Stop Date: 06/28/13 Status: Ordered Pen [place], 32 G x 4 mm BD Ultra [...] mL, 3 Refills, Maintenance, 06/26/20 14:32:00 EDT, [facility] #[id number], e11.65, 152.4, cm, 12/22/18 9:07:00 EDT, Height Start Date: 06/26/20 Stop Date: 06/21/21 Status: Ordered Victoza 18 mg/3 mL subcutaneous solution = 1.8 mg, Subcutaneous Infusion, Daily, for 90 days, appointment needed, # 18 mL, 5 Refills, Hard Stop 06/26/20 14:32:15 EDT, 01/03/19 14:32:15 EDT, [facility] #[id number], e11.65 Start Date: 01/03/19 Stop Date: 06/26/20 [...]
--- OUTSIDE RECORDS SUMMARY | 2022-05-27 10:39 | XMS_ITS | Continuity of Care Document ---
Author Name Unknown Organization [facility] Address [address] [place] [address] [address] [place] [address]- Care Team Providers Care Cracking Unit Operator Name Role Phone Rito Irving MD Primary Care Physician Encounter [facility] Date(s): 06/12/19 - 10/10/19 [facility] [address] [place] [address]- [facility] Attending Physician: Emmie Roberto MD Referring Physician: Rito Irving MD Allergies, [...] 0, 0, 05/16/07 1:47:09, Print JOE Number, [id number], Constant Indicator Start Date: 05/16/07 Status: Ordered [...] 2 liters by nasal cannula at night, [facility] Start Date: 01/29/08 Status: Ordered Pen [place], 31 G x 5 mm BD Ultra Fine III See Instructions, # 400 each, Refills 2, Tot. Refills 2, Maintenance, for use with novolog flexpen and lantus solostar pen 4 times a day, 10/01/12 14:15:51, Compound Start Date: 10/01/12 Stop Date: 06/28/13 Status: Ordered Pen [place], 32 G x 4 mm BD Ultra [...] 8:56:45, bilateral wrist splints for carpal tunnel, [facility] Start Date: 12/27/07 Status: Ordered [...]
--- OUTSIDE RECORDS SUMMARY | 2022-05-27 10:39 | XMS_ITS | Continuity of Care Document ---
Author Name Unknown Organization [facility] Address [address] [place] [address]- Care Team Providers Care Slip Filler Name Role Phone Rito Irving MD Primary Care Physician Encounter [facility] Date(s): 08/03/21 - 09/02/21 [facility] [address] [place] [address] Allergies, Adverse Reactions, Alerts Substance Reaction [...] Refills 0, Maintenance, E11.9: Fortesting glucose levels: [facility] 2[facility] [id number], 02/06/20 16:57:00 EST, Compound, 152.4, cm, 12/22/18 [...] Refills 0, Maintenance, E11.9: Fortesting glucose levels: [facility]NOTE 2] [id number], 05/27/20 14:59:00 EDT, Compound, 152.4, cm, 12/22/18 [...] 6 Refills, Soft Stop, 06/12/21 11:36:00 EDT, [facility] #[id number], Partial fill upon patient request if the prescription is for a schedule II opioid drug., 153, cm, 07/08/20 15:22:00 EDT, Height Start Date: 06/12/21 Status: Ordered Basaglar KwikPen 100 units/mL subcutaneous solution See Instructions, Subcutaneous Injection 54 U QD DX E11.65, # 20 mL, 6 Refills, Maintenance, 07/27/21 14:05:00 EDT, [facility] #[id number], Partial fill upon patient request if the prescription is for a schedule II opioid drug., 153, cm, 05/0... Start Date: 07/27/21 Status: Ordered Clonazepam 1, mg, By Mouth, 2 times a day, 0, 0, 05/16/07 1:47:09, Print JOE Number, [id number], Constant Indicator Start Date: 05/16/07 Status: Ordered [...] Refills, Maintenance, 07/15/20 8:40:00 EDT, ER Tablet, [facility] #[id number], Partial fill upon patient request if the [...] mL, 6 Refills, Maintenance, 08/03/21 17:11:00 EDT, [facility] #[id number], Partial fill upon patient request if the [...] mL, 5 Refills, Maintenance, 01/06/21 23:20:00 EDT, [facility]... Start Date: 01/06/21 Status: Ordered Omeprazole By Mouth, Daily, 0 Refills, Maintenance, 01/14/15 14:01:19 Start Date: 01/14/15 Status: Ordered Oxycodone = 5 mg, By Mouth, PRN as needed for pain, 0 Refills, Maintenance, 05/19/14 16:22:30 Start Date: 05/19/14 Status: Ordered Oxygen Supplies See Instructions, 0, 0, 01/29/08 16:46:30, 2 liters by nasal cannula at night, [facility] Start Date: 01/29/08 Status: Ordered Pen [place], 31 G x 5 mm BD Ultra Fine III See Instructions, # 400 each, Refills 2, Tot. Refills 2, Maintenance, for use with novolog flexpen and lantus solostar pen 4 times a day, 07/30/20 12:48:00 EDT, Compound, 153, cm, 07/08/20 15:22:00 EDT, Height Start Date: 07/30/20 Stop Date: 04/26/21 Status: Ordered Pen [place], 32 G x 4 mm BD Ultra [...] 2 Refills, Maintenance, 07/29/20 15:03:00 EDT, Tablet, [facility] #[id number], Partial fill upon patient request if the prescription is for a schedule II opioid drug., 153, cm, 07/08/20 15:22:00 EDT... Start Date: 07/29/20 Status: Ordered Victoza 18 mg/3 mL subcutaneous solution = 1.8 mg, Subcutaneous Infusion, Daily, for 90 days, # 18 mL, 3 Refills, Hard Stop 10/04/21 15:00:00 EDT, 10/09/20 15:00:00 EDT, [facility] #[id number], e11.65, 153, cm, 07/08/20 15:22:00 EDT, Height Start Date: 10/09/20 Stop Date: 10/04/21 Status: Ordered Victoza 18 mg/3 mL subcutaneous solution = 1.8 mg, Subcutaneous Infusion, Daily, # 18 mL, 1 Refills, Maintenance, 10/04/21 15:00:00 EDT, [facility] #[id number], e11.65, 153, cm, 07/08/20 15:22:00 EDT, Height [...]
--- OUTSIDE RECORDS SUMMARY | 2022-05-27 10:39 | XMS_ITS | Continuity of Care Document ---
Author Name Unknown Organization [facility] Address [address] [place] [id number] Care Team Providers Care Road Manager Name Role Phone Rito Irving MD Primary Care Physician Encounter [facility] Date(s): 08/12/21 - 09/11/21 [facility] [address] [place] [id number] Allergies, Adverse Reactions, Alerts [...] Refills 0, Maintenance, E11.9: Fortesting glucose levels: [facility] [id number], 02/06/20 16:57:00 EST, Compound, 152.4, cm, 12/22/18 [...] Refills 0, Maintenance, E11.9: Fortesting glucose levels: [facility] [address]-83, 05/27/20 14:59:00 EDT, Compound, 152.4, cm, 12/22/18 9:07:00 EDT, Height Start Date: 05/27/20 Status: Ordered 14 day derw sensor 14 day drew sensor, See Instructions, [...] 6 Refills, Soft Stop, 06/12/21 11:36:00 EDT, [facility] #[id number], Partial fill upon patient request if the prescription is for a schedule II opioid drug., 153, cm, 07/08/20 15:22:00 EDT, Height Start Date: 06/12/21 Status: Ordered Basaglar KwikPen 100 units/mL subcutaneous solution See Instructions, Subcutaneous Injection 54 U QD DX E11.65, # 20 mL, 6 Refills, Maintenance, 07/27/21 14:05:00 EDT, [facility] #[id number], Partial fill upon patient request if the prescription is for a schedule II opioid drug., 153, cm, 050... Start Date: 07/27/21 Status: Ordered Clonazepam 1, mg, By Mouth, 2 times a day, 0, 0, 05/16/07 1:47:09, Print JOE Number, [id number], Constant Indicator Start Date: 05/16/07 Status: Ordered [...] Refills, Maintenance, 07/15/20 8:40:00 EDT, ER Tablet, [facility] #[id number], Partial fill upon patient request if the [...] mL, 6 Refills, Maintenance, 08/03/21 17:11:00 EDT, [facility] #[id number], Partial fill upon patient request if the [...] mL, 5 Refills, Maintenance, 01/06/21 23:20:00 EDT, [facility]... Start Date: 01/06/21 Status: Ordered Omeprazole By Mouth, Daily, 0 Refills, Maintenance, 01/14/15 14:01:19 Start Date: 01/14/15 Status: Ordered Oxycodone = 5 mg, By Mouth, PRN as needed for pain, 0 Refills, Maintenance, 05/19/14 16:22:30 Start Date: 05/19/14 Status: Ordered Oxygen Supplies See Instructions, 0, 0, 01/29/08 16:46:30, 2 liters by nasal cannula at night, [facility] Start Date: 01/29/08 Status: Ordered Pen [place], 31 G x 5 mm BD Ultra Fine III See Instructions, # 400 each, Refills 2, Tot. Refills 2, Maintenance, for use with novolog flexpen and lantus solostar pen 4 times a day, 07/30/20 12:48:00 EDT, Compound, 153, cm, 07/08/20 15:22:00 EDT, Height Start Date: 07/30/20 Stop Date: 04/26/21 Status: Ordered Pen [place], 32 G x 4 mm BD Ultra [...] 8:56:45, bilateral wrist splints for carpal tunnel, [facility] Start Date: 12/27/07 Status: Ordered Symbicort 160mcg-4.5mcg Inhaler Inhalation, 2 times a day, Maintenance, 01/14/15 14:00:43 Start Date: 01/14/15 Status: Ordered vibegron 75 mg oral tablet 1 tablet = 75 mg, By Mouth, Daily, # 30 tablet, 2 Refills, Maintenance, 07/29/20 15:03:00 EDT, Tablet, [facility] #[id number], Partial fill upon patient request if the prescription is for a schedule II opioid drug., 153, cm, 07/08/20 15:22:00 EDT... Start Date: 07/29/20 Status: Ordered Victoza 18 mg/3 mL subcutaneous solution = 1.8 mg, Subcutaneous Infusion, Daily, for 90 days, # 18 mL, 3 Refills, Hard Stop 10/04/21 15:00:00 EDT, 10/09/20 15:00:00 EDT, [facility] #[id number], e11.65, 153, cm, 07/08/20 15:22:00 EDT, Height Start Date: 10/09/20 Stop Date: 10/04/21 Status: Ordered Victoza 18 mg/3 mL subcutaneous solution = 1.8 mg, Subcutaneous Infusion, Daily, # 18 mL, 1 Refills, Maintenance, 10/04/21 15:00:00 EDT, [facility] #[id number], e11.65, 153, cm, 07/08/20 15:22:00 EDT, Height [...]
--- OUTSIDE RECORDS SUMMARY | 2022-05-27 10:39 | XMS_ITS | Continuity of Care Document ---
Author Name Unknown Organization [facility] Address [address] [place] [address]- Care Team Providers Care Osteopathic Physician Name Role Phone Rito Irving MD Primary Care Physician Encounter [facility] Date(s): 04/19/21 - 05/19/21 [facility] [address] [place] [id number] Allergies, Adverse Reactions, Alerts Substance Reaction [...] E11.9: Fortesting glucose levels: [facility] [id number], 02/06/20 16:57:00 EST, Compound, 152.4, cm, 12/22/18 [...] E11.9: Fortesting glucose levels: [facility] [id number], 05/27/20 14:59:00 EDT, Compound, 152.4, cm, 12/22/18 [...] 0, 0, 05/16/07 1:47:09, Print JOE Number, [id number], Constant Indicator Start Date: 05/16/07 Status: Ordered [...] Refills, Maintenance, 07/15/20 8:40:00 EDT, ER Tablet, [facility] #[id number], Partial fill upon patient request if the [...] 6 Refills, Maintenance, 02/28/21 22:25:00 EST, Solution, [facility] #[id number], Partial fill upon patient request if the [...] OPPT Start Date: 01/29/08 Status: Ordered Pen [place], 31 G x 5 mm BD Ultra Fine III See Instructions, # 400 each, Refills 2, Tot. Refills 2, Maintenance, for use with novolog flexpen and lantus solostar pen 4 times a day, 07/30/20 12:48:00 EDT, Compound, 153, cm, 07/08/20 15:22:00 EDT, Height Start Date: 07/30/20 Stop Date: 04/26/21 Status: Ordered Pen [place], 32 G x 4 mm BD Ultra [...] 2 Refills, Maintenance, 07/29/20 15:03:00 EDT, Tablet, [facility] #[id number], Partial fill upon patient request if the prescription is for a schedule II opioid drug., 153, cm, 07/08/20 15:22:00 EDT... Start Date: 07/29/20 Status: Ordered Victoza 18 mg/3 mL subcutaneous solution = 1.8 mg, Subcutaneous Infusion, Daily, # 18 mL, 3 Refills, Maintenance, 10/09/20 15:00:00 EDT, [facility] #[id number], e11.65, 153, cm, 07/08/20 15:22:00 EDT, Height [...]
--- NOTE | 2022-05-27 11:01 | MHC.EDTECH ---
Pt requested to use bedpan, pt was incontinent x2 and voided bladder into bedpan x1. Pt was able to reposition in bed with limited assistance of 1 but needed assistance of 2 people to be boosted up higher in the bed. Head of bed was elevated. Pt tolerated activity well.
[2022-05-27 11:07] LABS: Appearance Urine Clear; Color Urine Yellow; Glucose Urine UA >=1000 mg/dL (Negative); Leukocyte Esterase Urine Negative (Negative); Nitrite Urine Negative (Negative); PH 7.5 (5.0-9.0); Specific Gravity - Urine 1.025 (1.005-1.025); UMIC TRIGGER UACC YES; Urine Blood Negative (Negative); Urine Ketones Negative (Negative); Urine Protein Negative (Neg-Trace)
[2022-05-27 11:12] LABS: Bacteria Urine None Seen (None Seen); Hyaline Casts Urine 0-2 /LPF (0-2); RBC Urine 0-2 /HPF (0-2); Squamous Epithelial Cell Urine 0-2 /HPF (0-2); WBC Urine 0-5 /HPF (0-5)
[2022-05-27 11:49] VITALS: BP 139/82; PULSE 76; RESP 16; O2SAT 97
[2022-05-27 12:07] LABS: MANUAL DIFF FLAG NO
[2022-05-27 12:09] LABS: Basophils Percent Auto 0.4 % (0-2); Eosinophils Absolute Auto 0.1 X10*3/uL (0.0-0.4); Eosinophils Percent Auto 1.6 % (0-4); Hematocrit 36.7 % (37.0-47.0); Hemoglobin 11.4 g/dl (12.0-16.0); Imm Gran Abs Auto 0.04 X10*3/uL (0.00-0.03); Imm Gran Pct Auto 0.5 % (0.0-0.4); Lymphocytes Absolute Auto 2.3 X10*3/uL (1.2-4.9); Mean Corpuscular HGB Conc 31.1 g/dl (31.0-35.0); Mean Corpuscular Hemoglobin 29.8 pg (27.0-33.0); Mean Corpuscular Volume 96.1 fL (80.0-98.0); Monocytes Absolute Auto 0.5 X10*3/uL (0.1-1.2); Monocytes Percent Auto 6.4 % (2-11); Neutrophils Absolute Auto 5.4 x10*3/uL (2.0-8.3); Neutrophils Percent Auto 64.1 % (45-73); Platelet Count 182 X10*3/uL (160-400); Red Blood Count 3.82 X10*6/uL (4.20-5.50); Red Cell Distribution Width 14.1 % (11.0-16.0); White Blood Count 8.4 X10*3/uL (4.8-10.8)
[2022-05-27 12:14] LABS: VBG pCO2 34 mmHg; VBG pH 7.42 (7.32-7.43); VBG pO2 144 mmHg
[2022-05-27 12:15] LABS: VBG HCO3 22 mmol/L (22-26)
[2022-05-27 12:19] LABS: Venous Blood Gas Refer to POC result
[2022-05-27 12:26] LABS: Alanine Aminotransferase 19 U/L (0-31); Albumin Level 3.3 g/dL (3.5-5.0); Alkaline Phosphatase 90 U/L (39-117); Anion Gap 12 (12-20); Aspartate Amino Transferase 17 U/L (5-31); Bilirubin Total 0.4 mg/dL (0.0-1.0); Blood Urea Nitrogen 25 mg/dL (9-16); Calcium 9.2 mg/dL (8.4-10.2); Carbon Dioxide 23 mmol/L (22-29); Chloride 109 mmol/L (96-108); Creatinine Clr Calc Pharmacy 57.9; Estimated Glomerular Filt Rate > 60; Glucose Random 264 mg/dL (60-115); Potassium 5.2 mmol/L (3.3-5.1); Sodium 139 mmol/L (135-145); Total Protein 5.7 g/dL (6.5-8.0)
[2022-05-27 12:31] LABS: B Type Natriuretic Peptide 24 pg/mL (<100)
--- NOTE | 2022-05-27 12:37 | ED_ITS ---
HPI - General Adult General Chief complaint: Fall Stated complaint: Fall per EMS Time Seen by Provider: 05/27/22 10:13 Source: patient and family Mode of arrival: EMS History of Present Illness HPI narrative: 71-year-old female with multiple medical comorbidities who is brought in by EMS for evaluation due to persistent and progressive deconditioning with frequent falls but patient also has underlying neuropathy and uses a walker at baseline. Patient herself endorses that she does not walk around a lot and primarily sits in her chair. She denies any dizziness, headaches, shortness of breath, chest pain/palpitations, GI or symptoms. She has urinary incontinence at baseline and the daughter, who is at bedside, states that patient recently has started on physical therapy 2 days ago. On questioning the patient she the adamantly declines any short-term rehab or a longterm discussions. The daughter describes a waxing and waning confusion. Related Data Home Medications Medication Instructions Recorded Confirmed clonazepam 0.5 mg tablet 0.5 mg PO BID PRN Anxiety 02/06/20 02/28/22 duloxetine 60 mg capsule,delayed 60 mg PO DAILY 02/06/20 02/28/22 release ibuprofen 600 mg tablet 600 mg PO TID PRN Pain 02/06/20 02/28/22 insulin aspart U-100 100 unit/mL 0 sliding scale dose subcut QIDACHS 02/06/20 02/28/22 (3 mL) subcutaneous pen lisinopril 10 mg tablet 10 mg PO DAILY 02/06/20 02/28/22 zolpidem 10 mg tablet 10 mg PO BEDTIME 02/06/20 02/28/22 liraglutide 0.6 mg/0.1 mL (18 mg/3 1.8 mg subcut DAILY 04/21/20 02/28/22 mL) subcutaneous pen injector donepezil 5 mg tablet 5 mg PO BEDTIME 11/06/20 02/28/22 insulin glargine 100 unit/mL (3 54 unit subcut BEDTIME 01/05/21 02/28/22 mL) subcutaneous pen buspirone 15 mg tablet 1 tab PO BID 11/11/21 02/28/22 ipratropium bromide 21 mcg (0.03 2 spray intranasal BID 11/11/21 02/28/22 %) nasal spray ketoconazole 2 % shampoo 1 appl topical 2XW 11/11/21 02/28/22 lidocaine 4 % topical patch 1 patch topical DAILY PRN Pain 11/11/21 02/28/22 vibegron 75 mg tablet (Gemtesa) 75 mg PO DAILY 11/11/21 02/28/22 CPAP (CPAP Machine/Device) 01/18/22 Oxygen Home Use 01/18/22 aripiprazole 2 mg tablet 2 mg PO DAILY 02/08/22 02/28/22 gabapentin 300 mg capsule 4 cap PO BID 02/23/22 02/28/22 melatonin 10 mg tablet 10 mg PO BEDTIME PRN Insomnia 02/23/22 02/28/22 meloxicam 15 mg tablet 15 mg PO DAILY 02/23/22 02/28/22 acetaminophen 500 mg tablet 650 mg PO Q6H PRN fever or pain 02/28/22 02/28/22 (Tylenol Extra Strength) atorvastatin 80 mg tablet 80 mg PO DAILY 03/11/22 pregabalin 150 mg capsule 150 mg PO DAILY 03/11/22 Previous Rx's Medication Instructions Recorded walker #1 ea 07/12/20 budesonide-formoterol HFA 160 2 puff PO BID #10.2 grams 03/18/21 mcg-4.5 mcg/actuation aerosol inhaler tiotropium bromide 2.5 2 puff inhalation DAILY 30 days #4 03/18/21 mcg/actuation mist for inhalation grams (Spiriva Respimat) roflumilast 250 mcg tablet 250 mcg PO DAILY 30 days #30 tabs 05/07/21 (Daliresp) tramadol 50 mg tablet 50 mg PO Q8H PRN pain, severe #9 09/08/21 tabs lidocaine 5 % topical patch 1 patch topical DAILY 30 days #30 01/19/22 (Lidoderm) ea albuterol sulfate 90 mcg/actuation 2 puff PO QID #8.5 grams 02/04/22 aerosol inhaler clonazepam 0.5 mg tablet (Klonopin) 0.5 mg PO BID #10 tabs 03/01/22 doxycycline hyclate 100 mg capsule 100 mg PO BID 10 days #20 caps 05/03/22 nystatin 100,000 unit/gram topical 1 appl topical BID #30 grams 05/27/22 powder Allergies Allergy/AdvReac Type Severity Reaction Status Date / Time aspirin [ASPIRIN] Allergy Intermediate GI UPSET, Verified 05/27/22 10:24 stomach pain latex [LATEX] Allergy Intermediate HIVES Verified 05/27/22 10:24 Review of Systems Review of Systems: Pertinent positives and negatives as stated in HPI PMFSH Past Medical History Source: nursing notes reviewed Medical History Acute respiratory failure Arnold-Chiari malformation Arthritis Asthma Asthma-COPD overlap syndrome Back pain Cardiomegaly Chest crackles Chronic respiratory failure Cough Diabetes Fibromyalgia [place] (hard of hearing) Hyperlipidemia Hypertension Morbid obesity CASSANDRA treated with BiPAP Pneumonia PONV (postoperative nausea and vomiting) Post herpetic neuralgia Sinusitis Surgical History H/O bilateral breast reduction surgery H/O brain surgery H/O colonoscopy History of esophagogastroduodenoscopy (EGD) Hx of laparoscopic gastric banding Family History Family History Mother HTN (hypertension) Breast cancer Father Primary cancer of bone marrow Social History Social History Household Members: Other Household Members Other:: granddaughter Housing: Apartment Are you a primary acute care assistant to a significant other at home: No Do you presently have visiting nurse or other home services: Yes ([employer]) Alcohol intake: never Patient Tobacco Use Status: Former Tobacco user Quit Date: Tobacco use type: Cigarette Years Smoked: 15 +/- Advance Directives: Yes Advance Directives on File: Yes Advance Directives Date on File: 11/11/21 Physical Exam ED Vital Signs: Vital Signs - 24 hr 05/27/22 10:21 05/27/22 11:49 Temperature 97.9 F Pulse Rate 88 76 Respiratory Rate 18 16 Blood Pressure 150/69 H 139/82 Pulse Oximetry 98 97 Oxygen Delivery Method Nasal Cannula Nasal Cannula Oxygen Flow Rate 2 BMI result Body Mass Index 39.0 VITAL SIGNS: Reviewed. GENERAL: Elevated BMI, well nourished, in no acute distress. HEAD: Normocephalic/atraumatic EYES: PERRLA, EOMI EARS: Ext canals without abnormality NOSE: Nares patent bilateral OROPHARYNX: no oral lesions noted, posterior pharynx clear NECK: Supple, no adenopathy LUNGS: Mild decreased bibasilar, no adventitious sounds or accessory muscle use. SpO2<97> on baseline nasal cannula from home CARDIOVASCULAR: Regular rate and rhythm without noted murmurs, no JVD or lower extremity edema. ABDOMEN: Soft, non-tender, non-distended with bowel sounds. MUSCULOSKELETAL: No tenderness, deformities, or effusions noted on gross inspection. EXTREMITIES: No cyanosis, clubbing or edema. SKIN: Inspection of the skin reveals there is a yeast rash to bilateral groin under the pannus NEUROLOGIC: Alert and oriented x 4. Strength and sensation to light touch were grossly intact x 4, no pronator drift, no facial asymmetry, cranial nerves 2-12 are grossly intact. Medical Decision Making Medical Decision Making MDM Narrative: 71-year-old female with minimal medical complaints other than persistent deconditioning and falls that I suspect are secondary to her BMI in relation to recent bronchitis and COVID-19 infections and lack of activity. She is oxygenating well on her baseline home oxygen and has no other constitutional symptoms to suggest pneumonia, intra-abdominal or urinary infections. However basic lab work to include urinalysis/chest x-ray as well as EKG will be obtained. As patient is not interested in short-term rehab and has physical therapy in home at this time and also declines any discussion regarding longterm placement if all things are found to be within normal limits she will be discharged home with re-evaluation by her primary care provider. I reviewed all investigations and my interpretation is that this patient has physical deconditioning secondary to both body habitus as well as multiple medical comorbidities and decreased activity. Patient was reassured and discharged on nystatin for her groin yeast infection and encouraged to follow-up with primary care provider. The trace bump in potassium of 5.2 is noted. Differential Diagnosis Please see the discussion above Lab Data Please see the discussion above 05/27/22 12:02 05/27/22 12:02 Labs: Lab Results 05/27/22 05/27/22 05/27/22 Range/Units 10:56 12:02 12:02 WBC 8.4 (4.8-10.8) X10*3/uL RBC 3.82 L (4.20-5.50) X10*6/uL Hgb 11.4 L (12.0-16.0) g/dl Hct 36.7 L (37.0-47.0) % MCV 96.1 (80.0-98.0) fL MCH 29.8 (27.0-33.0) pg MCHC 31.1 (31.0-35.0) g/dl RDW 14.1 (11.0-16.0) % Plt Count 182 D (160-400) X10*3/uL MPV 10.0 (9.4-12.3) fL Immature Gran % (Auto) 0.5 H (0.0-0.4) % Neut % (Auto) 64.1 (45-73) % Lymph % (Auto) 27.0 (20-40) % [place] % (Auto) 6.4 (2-11) % Eos % (Auto) 1.6 (0-4) % Baso % (Auto) 0.4 (0-2) % Lymph # (Auto) 2.3 (1.2-4.9) X10*3/uL [place] # (Auto) 0.5 (0.1-1.2) X10*3/uL Eos # (Auto) 0.1 (0.0-0.4) X10*3/uL Baso # (Auto) 0.0 (0.0-0.2) X10*3/uL Abs Immat Gran (auto) 0.04 H (0.00-0.03) X10*3/uL Absolute Neuts (auto) 5.4 (2.0-8.3) x10*3/uL Absolute Nucleated RBC 0.000 (0.0-0.012) X10*3/uL Nucleated RBC % (auto) 0.0 (0.0-0.2) /100WBC O2 Saturation ABG pH at Pt Temp ABG pH (Temp Correct) ABG pCO2 at Pt Temp ABG pCO2 (Temp Corrct ABG pO2 at Pt Temp ABG pO2 (Temp Correct ABG HCO3 ABG Base Excess (Actual) VBG pH (7.32-7.43) VBG pCO2 mmHg VBG pO2 mmHg VBG HCO3 (22-26) mmol/L VBG O2 Saturation % VBG Base Excess mmol/L Sodium (135-145) mmol/L Potassium (3.3-5.1) mmol/L Chloride (96-108) mmol/L Carbon Dioxide (22-29) mmol/L Anion Gap (12-20) BUN (9-16) mg/dL Creatinine (0.5-1.4) mg/dL Estim Creat Clear Calc Estimated GFR POC Glucose (60-115) mg/dL Random Glucose (60-115) mg/dL Calcium (8.4-10.2) mg/dL Total Bilirubin (0.0-1.0) mg/dL AST (5-31) U/L ALT (0-31) U/L Alkaline Phosphatase (39-117) U/L B-Natriuretic Peptide 24 (<100) pg/mL Total Protein (6.5-8.0) g/dL Albumin (3.5-5.0) g/dL Urine Color Yellow Urine Appearance Clear Urine pH 7.5 (5.0-9.0) Ur Specific [place] 1.025 (1.005-1.025) Urine Protein Negative (Neg-Trace) mg/dL Urine Glucose (UA) >=1000 H (Negative) mg/dL Urine Ketones Negative (Negative) mg/dL Urine Blood Negative (Negative) Urine Nitrite Negative (Negative) Ur Leukocyte Esterase Negative (Negative) Urine RBC 0-2 (0-2) /HPF Urine WBC 0-5 (0-5) /HPF Ur Squamous Epith Cells 0-2 (0-2) /HPF Urine Bacteria None Seen (None Seen) Hyaline Casts 0-2 (0-2) /LPF 05/27/22 05/27/22 05/27/22 Range/Units 12:02 12:02 12:05 WBC (4.8-10.8) X10*3/uL RBC (4.20-5.50) X10*6/uL Hgb (12.0-16.0) g/dl Hct (37.0-47.0) % MCV (80.0-98.0) fL MCH (27.0-33.0) pg MCHC (31.0-35.0) g/dl RDW (11.0-16.0) % Plt Count (160-400) X10*3/uL MPV (9.4-12.3) fL Immature Gran % (Auto) (0.0-0.4) % Neut % (Auto) (45-73) % Lymph % (Auto) (20-40) % [place] % (Auto) (2-11) % Eos % (Auto) (0-4) % Baso % (Auto) (0-2) % Lymph # (Auto) (1.2-4.9) X10*3/uL [place] # (Auto) (0.1-1.2) X10*3/uL Eos # (Auto) (0.0-0.4) X10*3/uL Baso # (Auto) (0.0-0.2) X10*3/uL Abs Immat Gran (auto) (0.00-0.03) X10*3/uL Absolute Neuts (auto) (2.0-8.3) x10*3/uL Absolute Nucleated RBC (0.0-0.012) X10*3/uL Nucleated RBC % (auto) (0.0-0.2) /100WBC O2 Saturation Cancelled ABG pH at Pt Temp Cancelled ABG pH (Temp Correct) Cancelled ABG pCO2 at Pt Temp Cancelled ABG pCO2 (Temp Corrct Cancelled ABG pO2 at Pt Temp Cancelled ABG pO2 (Temp Correct Cancelled ABG HCO3 Cancelled ABG Base Excess (Actual) Cancelled VBG pH 7.42 (7.32-7.43) VBG pCO2 34 mmHg VBG pO2 144 mmHg VBG HCO3 22 (22-26) mmol/L VBG O2 Saturation 100.0 % VBG Base Excess -1.0 mmol/L Sodium 139 (135-145) mmol/L Potassium 5.2 H (3.3-5.1) mmol/L Chloride 109 H (96-108) mmol/L Carbon Dioxide 23 (22-29) mmol/L Anion Gap 12 (12-20) BUN 25 H (9-16) mg/dL Creatinine 0.92 (0.5-1.4) mg/dL Estim Creat Clear Calc 57.9 Estimated GFR > 60 POC Glucose (60-115) mg/dL Random Glucose 264 H (60-115) mg/dL Calcium 9.2 D (8.4-10.2) mg/dL Total Bilirubin 0.4 (0.0-1.0) mg/dL AST 17 (5-31) U/L ALT 19 (0-31) U/L Alkaline Phosphatase 90 (39-117) U/L B-Natriuretic Peptide (<100) pg/mL Total Protein 5.7 L (6.5-8.0) g/dL Albumin 3.3 L (3.5-5.0) g/dL Urine Color Urine Appearance Urine pH (5.0-9.0) Ur Specific [place] (1.005-1.025) Urine Protein (Neg-Trace) mg/dL Urine Glucose (UA) (Negative) mg/dL Urine Ketones (Negative) mg/dL Urine Blood (Negative) Urine Nitrite (Negative) Ur Leukocyte Esterase (Negative) Urine RBC (0-2) /HPF Urine WBC (0-5) /HPF Ur Squamous Epith Cells (0-2) /HPF Urine Bacteria (None Seen) Hyaline Casts (0-2) /LPF 05/27/22 Range/Units 13:22 WBC (4.8-10.8) X10*3/uL RBC (4.20-5.50) X10*6/uL Hgb (12.0-16.0) g/dl Hct (37.0-47.0) % MCV (80.0-98.0) fL MCH (27.0-33.0) pg MCHC (31.0-35.0) g/dl RDW (11.0-16.0) % Plt Count (160-400) X10*3/uL MPV (9.4-12.3) fL Immature Gran % (Auto) (0.0-0.4) % Neut % (Auto) (45-73) % Lymph % (Auto) (20-40) % [place] % (Auto) (2-11) % Eos % (Auto) (0-4) % Baso % (Auto) (0-2) % Lymph # (Auto) (1.2-4.9) X10*3/uL [place] # (Auto) (0.1-1.2) X10*3/uL Eos # (Auto) (0.0-0.4) X10*3/uL Baso # (Auto) (0.0-0.2) X10*3/uL Abs Immat Gran (auto) (0.00-0.03) X10*3/uL Absolute Neuts (auto) (2.0-8.3) x10*3/uL Absolute Nucleated RBC (0.0-0.012) X10*3/uL Nucleated RBC % (auto) (0.0-0.2) /100WBC O2 Saturation ABG pH at Pt Temp ABG pH (Temp Correct) ABG pCO2 at Pt Temp ABG pCO2 (Temp Corrct ABG pO2 at Pt Temp ABG pO2 (Temp Correct ABG HCO3 ABG Base Excess (Actual) VBG pH (7.32-7.43) VBG pCO2 mmHg VBG pO2 mmHg VBG HCO3 (22-26) mmol/L VBG O2 Saturation % VBG Base Excess mmol/L Sodium (135-145) mmol/L Potassium (3.3-5.1) mmol/L Chloride (96-108) mmol/L Carbon Dioxide (22-29) mmol/L Anion Gap (12-20) BUN (9-16) mg/dL Creatinine (0.5-1.4) mg/dL Estim Creat Clear Calc Estimated GFR POC Glucose 231 H (60-115) mg/dL Random Glucose (60-115) mg/dL Calcium (8.4-10.2) mg/dL Total Bilirubin (0.0-1.0) mg/dL AST (5-31) U/L ALT (0-31) U/L Alkaline Phosphatase (39-117) U/L B-Natriuretic Peptide (<100) pg/mL Total Protein (6.5-8.0) g/dL Albumin (3.5-5.0) g/dL Urine Color Urine Appearance Urine pH (5.0-9.0) Ur Specific [place] (1.005-1.025) Urine Protein (Neg-Trace) mg/dL Urine Glucose (UA) (Negative) mg/dL Urine Ketones (Negative) mg/dL Urine Blood (Negative) Urine Nitrite (Negative) Ur Leukocyte Esterase (Negative) Urine RBC (0-2) /HPF Urine WBC (0-5) /HPF Ur Squamous Epith Cells (0-2) /HPF Urine Bacteria (None Seen) Hyaline Casts (0-2) /LPF Independent Interpretation I performed an independent interpretation of an: EKG Interpretation: Normal sinus rhythm, RBBB, HR-66, no STEMI, WV/QTC are within normal limits External Record Review External record reviewed: Outpatient record and Prior outpatient labs Chronic Conditions Patient?s care impacted by: Diabetes and Hypertension Discharge Plan Discharge Clinical Impression: Physical deconditioning, Yeast infection of the skin Patient Disposition: Home, Self-Care Instructions: Fatigue (ED), Skin Yeast Infection (ED) Additional Instructions: 1. Resume all home medications as prescribed. 2. You have received a prescription for a powder to treat the yeast infection at your groin area. 3. Please follow-up with your primary care provider on Monday for re-evaluation and repeat basic metabolic panel. Return to the ER for any worsening symptoms. Prescriptions: New nystatin 100,000 unit/gram powder 1 appl topical BID Qty: 30 0RF No Action lidocaine [Lidoderm] 5 % adhesive patch,medicated 1 patch topical DAILY 30 Days Qty: 30 4RF Rx Instructions: leave on most painful area for up to 12 hrs albuterol sulfate 90 mcg/actuation HFA aerosol inhaler 2 puff PO QID Qty: 8.5 11RF doxycycline hyclate 100 mg capsule 100 mg PO BID 10 Days Qty: 20 0RF (DME) [facility] [place] Rx Instructions .ROUTE .MEDSUPPLY Qty: 1 0RF Rx Instructions: As directed tramadol 50 mg tablet 50 mg PO Q8H PRN (Reason: pain, severe) Qty: 9 0RF ketoconazole 2 % shampoo 1 appl topical 2XW ipratropium bromide 21 mcg (0.03 %) spray,non-aerosol 2 spray intranasal BID buspirone 15 mg tablet 1 tab PO BID Gemtesa 75 mg tablet 75 mg PO DAILY lidocaine 4 % Adhesive Patch,Medicated 1 patch TOPICAL DAILY PRN (Reason: Pain) acetaminophen [Tylenol Extra Strength] 500 mg tablet 650 mg PO Q6H PRN (Reason: fever or pain) clonazepam [Klonopin] 0.5 mg tablet 0.5 mg PO BID Qty: 10 0RF gabapentin 300 mg capsule 4 cap PO BID meloxicam 15 mg Tablet 15 mg PO DAILY melatonin 10 mg Tablet 10 mg PO BEDTIME PRN (Reason: Insomnia) zolpidem 10 mg tablet 10 mg PO BEDTIME duloxetine 60 mg capsule,delayed release(DR/EC) 60 mg PO DAILY ibuprofen 600 mg tablet 600 mg PO TID PRN (Reason: Pain) lisinopril 10 mg tablet 10 mg PO DAILY clonazepam 0.5 mg tablet 0.5 mg PO BID PRN (Reason: Anxiety) insulin aspart U-100 100 unit/mL (3 mL) insulin pen 0 sliding scale dose subcut QIDACHS Protocol: Insulin Correction Scale Less than or equal to 110 ---- Give (units): 0 111 to 150 Give (units): 0 151 to 200 Give (units): 2 201 to 250 Give (units): 4 251 to 300 Give (units): 6 301 to 350 Give (units): 8 Greater than 350 Give (units): 10 Call MD if Blood Glucose > : 350 liraglutide 0.6 mg/0.1 mL (18 mg/3 mL) pen injector 1.8 mg subcut DAILY insulin glargine 100 unit/mL (3 mL) insulin pen 54 unit subcut BEDTIME donepezil 5 mg tablet 5 mg PO BEDTIME Spiriva Respimat 2.5 mcg/actuation mist 2 puff inhalation DAILY 30 Days Qty: 4 11RF budesonide-formoterol 160-4.5 mcg/actuation HFA aerosol inhaler 2 puff PO BID Qty: 10.2 11RF (DME) CPAP Machine/Device Device See Rx Instructions .ROUTE Rx Instructions: As directed (DME) Oxygen Home Use Kit See Rx Instructions .ROUTE Rx Instructions: As directed aripiprazole 2 mg tablet 2 mg PO DAILY pregabalin 150 mg capsule 150 mg PO DAILY atorvastatin 80 mg tablet 80 mg PO DAILY Daliresp 250 mcg tablet 250 mcg PO DAILY 30 Days Qty: 30 11RF Referrals: Rito Olivas MD [Primary Care Provider] -
--- NOTE | 2022-05-27 12:45 | ECG_ITS ---
Test Reason : WEAKNESS Blood Pressure : / mmHG Vent. Rate : 066 BPM Atrial Rate : 066 BPM P-R Int : 158 ms QRS Dur : 128 ms QT Int : 400 ms P-R-T Axes : 050 -11 043 degrees QTc Int : 419 ms Normal sinus rhythm with sinus arrhythmia Right bundle branch block Abnormal ECG When compared with ECG of 11-NOV-2021 13:47, Vent. rate has decreased BY 38 BPM Left anterior fascicular block is no longer Present QT has shortened Referred By: Ofelia Garcia Electronically Signed By:CHERYL PINTO MD
[2022-05-27 13:26] LABS: Glucose, Whole Blood 231 mg/dL (60-115)
== END 2022-05-27 14:40 | disposition home or self-care (01) ==
PROVIDERS: Emergency Provider Student in an Organized Health Care Education/Training Program; PCP Internal Medicine
DX: B37.2 Candidiasis of skin and nail (principal); R06.02 Shortness of breath; R53.1 Weakness; Z87.891 Personal history of nicotine dependence; Z79.899 Other long term (current) drug therapy
CPT/HCPCS: 36415; 71046; 80053; 81001; 82803; 82947; 83880; 85025; 93005; 99283; 99284

== ENCOUNTER 2022-06-09 09:55 | Emergency (ER) | payer OTHER, SELFPAY ==
--- NOTE | ~2022-06-09 | XR_ITS ---
EXAMINATION: XR CHEST CLINICAL INFORMATION: Shortness of breath. COMPARISON: 05/27/2022 chest radiographs. TECHNIQUE: 2 views of the chest were obtained. FINDINGS: Minimal linear markings are seen at the lung bases. The upper lung hernandez are clear. The heart and mediastinal structures are unremarkable. XR/XR chest 2V IMPRESSION: Minimal bibasilar vascular crowding/atelectasis/scarring. No acute cardiopulmonary process.
[2022-06-09 10:03] VITALS: BP 127/86; O2SAT 94
[2022-06-09 10:04] VITALS: BP 124/58; PULSE 76; RESP 18; TEMP 37.1; O2SAT 99; BMI 38.0
--- NOTE | 2022-06-09 10:41 | ED_ITS ---
HPI - General Adult General Chief complaint: Dyspnea Stated complaint: WORSENING SOB OVER 2 WKS Time Seen by Provider: 06/09/22 10:27 Source: patient, family, EMS, RN notes reviewed and old records reviewed Mode of arrival: EMS Limitations: physical limitation History of Present Illness HPI narrative: 71-year-old with past medical history of CRF, CASSANDRA, diabetes, esophageal stenosis, dysphagia, constipation, post herpetic neuralgia, pneumonia, cardiomegaly, COPD, asthma, fibromyalgia is here today for increase shortness of breath. Patient states that her shortness of breath has been getting worse in the past 2 weeks. This morning patient felt anxious because she was getting out of breath even with minimal movement. Patient denies any fever, chills., cough, chest pain, presyncope, syncope. Patient denies any abdominal pain or discomfort. Denies any nausea or vomiting. Denies any melena, hematochezia, unintentional weight loss or like stools. Denies any dyspepsia, dysphagia or odynophagia. Onset (ago): day(s) Related Data Home Medications Medication Instructions Recorded Confirmed clonazepam 0.5 mg tablet 0.5 mg PO BID PRN Anxiety 02/06/20 02/28/22 duloxetine 60 mg capsule,delayed 60 mg PO DAILY 02/06/20 02/28/22 release ibuprofen 600 mg tablet 600 mg PO TID PRN Pain 02/06/20 02/28/22 insulin aspart U-100 100 unit/mL 0 sliding scale dose subcut QIDACHS 02/06/20 02/28/22 (3 mL) subcutaneous pen lisinopril 10 mg tablet 10 mg PO DAILY 02/06/20 02/28/22 zolpidem 10 mg tablet 10 mg PO BEDTIME 02/06/20 02/28/22 liraglutide 0.6 mg/0.1 mL (18 mg/3 1.8 mg subcut DAILY 04/21/20 02/28/22 mL) subcutaneous pen injector donepezil 5 mg tablet 5 mg PO BEDTIME 11/06/20 02/28/22 insulin glargine 100 unit/mL (3 54 unit subcut BEDTIME 01/05/21 02/28/22 mL) subcutaneous pen buspirone 15 mg tablet 1 tab PO BID 11/11/21 02/28/22 ipratropium bromide 21 mcg (0.03 2 spray intranasal BID 11/11/21 02/28/22 %) nasal spray ketoconazole 2 % shampoo 1 appl topical 2XW 11/11/21 02/28/22 lidocaine 4 % topical patch 1 patch topical DAILY PRN Pain 11/11/21 02/28/22 vibegron 75 mg tablet (Gemtesa) 75 mg PO DAILY 11/11/21 02/28/22 CPAP (CPAP Machine/Device) 01/18/22 Oxygen Home Use 01/18/22 aripiprazole 2 mg tablet 2 mg PO DAILY 02/08/22 02/28/22 gabapentin 300 mg capsule 4 cap PO BID 02/23/22 02/28/22 melatonin 10 mg tablet 10 mg PO BEDTIME PRN Insomnia 02/23/22 02/28/22 meloxicam 15 mg tablet 15 mg PO DAILY 02/23/22 02/28/22 acetaminophen 500 mg tablet 650 mg PO Q6H PRN fever or pain 02/28/22 02/28/22 (Tylenol Extra Strength) atorvastatin 80 mg tablet 80 mg PO DAILY 03/11/22 pregabalin 150 mg capsule 150 mg PO DAILY 03/11/22 Previous Rx's Medication Instructions Recorded walker #1 ea 07/12/20 budesonide-formoterol HFA 160 2 puff PO BID #10.2 grams 03/18/21 mcg-4.5 mcg/actuation aerosol inhaler tiotropium bromide 2.5 2 puff inhalation DAILY 30 days #4 03/18/21 mcg/actuation mist for inhalation grams (Spiriva Respimat) roflumilast 250 mcg tablet 250 mcg PO DAILY 30 days #30 tabs 05/07/21 (Daliresp) tramadol 50 mg tablet 50 mg PO Q8H PRN pain, severe #9 09/08/21 tabs lidocaine 5 % topical patch 1 patch topical DAILY 30 days #30 01/19/22 (Lidoderm) ea albuterol sulfate 90 mcg/actuation 2 puff PO QID #8.5 grams 02/04/22 aerosol inhaler clonazepam 0.5 mg tablet (Klonopin) 0.5 mg PO BID #10 tabs 03/01/22 doxycycline hyclate 100 mg capsule 100 mg PO BID 10 days #20 caps 05/03/22 nystatin 100,000 unit/gram topical 1 appl topical BID #30 grams 05/27/22 powder Allergies Allergy/AdvReac Type Severity Reaction Status Date / Time aspirin [ASPIRIN] Allergy Intermediate GI UPSET, Verified 05/27/22 10:24 stomach pain latex [LATEX] Allergy Intermediate HIVES Verified 05/27/22 10:24 Review of Systems Review of Systems: Other: Appearance: Alert.? Oriented X3.? No acute dist ress.? Eyes: Pupil s equal, round and reactive to light . ENT: Pharynx nor mal. Neck: Normal inspection.? Neck supple. No lymph n odes noted. No cre pitus CVS: Normal heart rate and rhy thm.? Pulses amber l. Normal S1 and S 2 Respiratory: No respiratory distre ss.? Breath sounds normal. No Wheezi ng. No rales Abdom en: Soft and nonte nder. No rigidity. No distention. Sk in: Skin warm and dry.? Normal skin color.? Normal ski n turgor. Extremit ies: No lower extr emity edema. No La cerations. No Rash Neuro: Oriented X 3.? No motor defi cit.? No sensory d eficit. Moving all extremities. No s lurred speech. CN 2 through 12 gross ly intact Psych: c mau, cooperative, normal affect PMFSH Past Medical History Medical History Acute respiratory failure Arnold-Chiari malformation Arthritis Asthma Asthma-COPD overlap syndrome Back pain Cardiomegaly Chest crackles Chronic respiratory failure Cough Diabetes Fibromyalgia [place] (hard of hearing) Hyperlipidemia Hypertension Morbid obesity CASSANDRA treated with BiPAP Pneumonia PONV (postoperative nausea and vomiting) Post herpetic neuralgia Sinusitis Surgical History H/O bilateral breast reduction surgery H/O brain surgery H/O colonoscopy History of esophagogastroduodenoscopy (EGD) Hx of laparoscopic gastric banding Family History Family History Mother HTN (hypertension) Breast cancer Father Primary cancer of bone marrow Social History Social History Household Members: Other Household Members Other:: granddaughter Housing: Apartment Are you a primary care management assistant to a significant other at home: No 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 Oriented X3. No acute distress.?? Head: Normal external exam. Normocephalic. Atraumatic.? No Montejo signs noted. No raccoon eyes noted Eyes: PERRLA. EOMI. Conjunctiva and sclera normal. Eyelids normal.?? ENT: EAC normal. TM's Normal. Pharynx normal. Uvula midline. Moist mucous membranes. ? No trismus noted.? No drooling noted.? No muffled voice noted. CVS: Normal heart rate RBBB. Heart sound normal. No murmurs noted. Pulses normal throughout. Respiratory: No respiratory distress. Painless inspiration. Breath sounds normal. No wheezes/rales/rhonchi noted. Chest nontender. ? No accessory muscle usage noted or decreased air movement noted. Abdomen: Soft and nontender. Bowel sounds normal in all 4 quadrants. No distention noted.? No organomegaly noted.? No visible injury noted. Back:? No CVA tenderness.? Full range of motion noted. Skin: Skin warm and dry.? Normal skin color.? Normal skin turgor. No rashes/lesions/lacerations noted. Extremities: No lower extremity edema. ? Extremities exhibit normal range of motion.? Extremities nontender. Neuro: Oriented X 3.? No motor deficit.? No sensory deficit.? Reflexes normal. Course Course Course Narrative: 71-year-old with past medical history of CRF, CASSANDRA, diabetes, esophageal stenosis, dysphagia, constipation, post herpetic neuralgia, pneumonia, cardiomegaly, COPD, asthma, fibromyalgia is here today for increase shortness of breath. Patient states that her shortness of breath has been getting worse in the past 2 weeks. This morning patient felt anxious because she was getting out of breath even with minimal movement. Patient denies any fever, chills., cough, chest pain, presyncope, syncope. Patient denies any abdominal pain or discomfort. Denies any nausea or vomiting. Denies any melena, hematochezia, unintentional weight loss or like stools. Denies any dyspepsia, dysphagia or odynophagia. Will do CBC, BMP, BNP, chest x-ray. Patient will receive DuoNeb Reevaluation(s) Reevaluation #1: O2 sats 100% on 3 L. Patient denies any chest pain, SOB. Stable vital signs. Patient is hemodynamically stable. Medications Administered Discontinued Medications Generic Name Dose Route Start Last Admin Trade Name Freq PRN Reason Stop Dose Admin Albuterol Sulfate 5 mg/ 0 mg 06/09/22 12:19 06/09/22 12:28 Ipratropium [place] 0.5 mg INHALE 06/09/22 12:20 1 each ONCE ONE Administration Medical Decision Making Lab Data [facility] Lab Attestation statement: I reviewed the patient's lab results. 06/09/22 11:07 06/09/22 11:07 Labs: Lab Results 06/09/22 06/09/22 06/09/22 Range/Units 11:07 11:07 11:07 WBC 7.5 (4.8-10.8) X10*3/uL RBC 3.81 L (4.20-5.50) X10*6/uL Hgb 11.4 L (12.0-16.0) g/dl Hct 36.3 L (37.0-47.0) % MCV 95.3 (80.0-98.0) fL MCH 29.9 (27.0-33.0) pg MCHC 31.4 (31.0-35.0) g/dl RDW 13.9 (11.0-16.0) % Plt Count 254 D (160-400) X10*3/uL MPV 9.2 L (9.4-12.3) fL Immature Gran % (Auto) 0.5 H (0.0-0.4) % Neut % (Auto) 63.0 (45-73) % Lymph % (Auto) 25.9 (20-40) % Marion % (Auto) 8.4 (2-11) % Eos % (Auto) 1.7 (0-4) % Baso % (Auto) 0.5 (0-2) % Lymph # (Auto) 1.9 (1.2-4.9) X10*3/uL Marion # (Auto) 0.6 (0.1-1.2) X10*3/uL Eos # (Auto) 0.1 (0.0-0.4) X10*3/uL Baso # (Auto) 0.0 (0.0-0.2) X10*3/uL Abs Immat Gran (auto) 0.04 H (0.00-0.03) X10*3/uL Absolute Neuts (auto) 4.7 (2.0-8.3) x10*3/uL Absolute Nucleated RBC 0.000 (0.0-0.012) X10*3/uL Nucleated RBC % (auto) 0.0 (0.0-0.2) /100WBC Sodium 142 (135-145) mmol/L Potassium 4.3 (3.3-5.1) mmol/L Chloride 108 (96-108) mmol/L Carbon Dioxide 24 (22-29) mmol/L Anion Gap 14 (12-20) BUN 24 H (9-16) mg/dL Creatinine 0.79 (0.5-1.4) mg/dL Estim Creat Clear Calc 66.5 Estimated GFR > 60 POC Glucose (60-115) mg/dL Random Glucose 101 (60-115) mg/dL Calcium 9.1 (8.4-10.2) mg/dL Total Bilirubin 0.4 (0.0-1.0) mg/dL AST 26 (5-31) U/L ALT 18 (0-31) U/L Alkaline Phosphatase 81 (39-117) U/L B-Natriuretic Peptide 30 (<100) pg/mL Total Protein 5.9 L (6.5-8.0) g/dL Albumin 3.4 L (3.5-5.0) g/dL Urine Color Urine Appearance Urine pH (5.0-9.0) Ur Specific [place] (1.005-1.025) Urine Protein (Neg-Trace) mg/dL Urine Glucose (UA) (Negative) mg/dL Urine Ketones (Negative) mg/dL Urine Blood (Negative) Urine Nitrite (Negative) Ur Leukocyte Esterase (Negative) Urine RBC (0-2) /HPF Urine WBC (0-5) /HPF Ur Squamous Epith Cells (0-2) /HPF Urine Bacteria (None Seen) Hyaline Casts (0-2) /LPF COVID-19 (CARMEN) (Negative) COVID-19 Clin Com Influenza Type A (CANDY) (Negative) Influenza Type B (CANDY) (Negative) Influenza A & B Note 06/09/22 06/09/22 06/09/22 Range/Units 11:07 11:07 15:03 WBC (4.8-10.8) X10*3/uL RBC (4.20-5.50) X10*6/uL Hgb (12.0-16.0) g/dl Hct (37.0-47.0) % MCV (80.0-98.0) fL MCH (27.0-33.0) pg MCHC (31.0-35.0) g/dl RDW (11.0-16.0) % Plt Count (160-400) X10*3/uL MPV (9.4-12.3) fL Immature Gran % (Auto) (0.0-0.4) % Neut % (Auto) (45-73) % Lymph % (Auto) (20-40) % Marion % (Auto) (2-11) % Eos % (Auto) (0-4) % Baso % (Auto) (0-2) % Lymph # (Auto) (1.2-4.9) X10*3/uL Marion # (Auto) (0.1-1.2) X10*3/uL Eos # (Auto) (0.0-0.4) X10*3/uL Baso # (Auto) (0.0-0.2) X10*3/uL Abs Immat Gran (auto) (0.00-0.03) X10*3/uL Absolute Neuts (auto) (2.0-8.3) x10*3/uL Absolute Nucleated RBC (0.0-0.012) X10*3/uL Nucleated RBC % (auto) (0.0-0.2) /100WBC Sodium (135-145) mmol/L Potassium (3.3-5.1) mmol/L Chloride (96-108) mmol/L Carbon Dioxide (22-29) mmol/L Anion Gap (12-20) BUN (9-16) mg/dL Creatinine (0.5-1.4) mg/dL Estim Creat Clear Calc Estimated GFR POC Glucose 64 (60-115) mg/dL Random Glucose (60-115) mg/dL Calcium (8.4-10.2) mg/dL Total Bilirubin (0.0-1.0) mg/dL AST (5-31) U/L ALT (0-31) U/L Alkaline Phosphatase (39-117) U/L B-Natriuretic Peptide (<100) pg/mL Total Protein (6.5-8.0) g/dL Albumin (3.5-5.0) g/dL Urine Color Urine Appearance Urine pH (5.0-9.0) Ur Specific [place] (1.005-1.025) Urine Protein (Neg-Trace) mg/dL Urine Glucose (UA) (Negative) mg/dL Urine Ketones (Negative) mg/dL Urine Blood (Negative) Urine Nitrite (Negative) Ur Leukocyte Esterase (Negative) Urine RBC (0-2) /HPF Urine WBC (0-5) /HPF Ur Squamous Epith Cells (0-2) /HPF Urine Bacteria (None Seen) Hyaline Casts (0-2) /LPF COVID-19 (CARMEN) Negative (Negative) COVID-19 Clin Com See Note Influenza Type A (CANDY) Negative (Negative) Influenza Type B (CANDY) Negative (Negative) Influenza A & B Note See Note 06/09/22 06/09/22 Range/Units 16:40 16:41 WBC (4.8-10.8) X10*3/uL RBC (4.20-5.50) X10*6/uL Hgb (12.0-16.0) g/dl Hct (37.0-47.0) % MCV (80.0-98.0) fL MCH (27.0-33.0) pg MCHC (31.0-35.0) g/dl RDW (11.0-16.0) % Plt Count (160-400) X10*3/uL MPV (9.4-12.3) fL Immature Gran % (Auto) (0.0-0.4) % Neut % (Auto) (45-73) % Lymph % (Auto) (20-40) % Marion % (Auto) (2-11) % Eos % (Auto) (0-4) % Baso % (Auto) (0-2) % Lymph # (Auto) (1.2-4.9) X10*3/uL Marion # (Auto) (0.1-1.2) X10*3/uL Eos # (Auto) (0.0-0.4) X10*3/uL Baso # (Auto) (0.0-0.2) X10*3/uL Abs Immat Gran (auto) (0.00-0.03) X10*3/uL Absolute Neuts (auto) (2.0-8.3) x10*3/uL Absolute Nucleated RBC (0.0-0.012) X10*3/uL Nucleated RBC % (auto) (0.0-0.2) /100WBC Sodium (135-145) mmol/L Potassium (3.3-5.1) mmol/L Chloride (96-108) mmol/L Carbon Dioxide (22-29) mmol/L Anion Gap (12-20) BUN (9-16) mg/dL Creatinine (0.5-1.4) mg/dL Estim Creat Clear Calc Estimated GFR POC Glucose 90 (60-115) mg/dL Random Glucose (60-115) mg/dL Calcium (8.4-10.2) mg/dL Total Bilirubin (0.0-1.0) mg/dL AST (5-31) U/L ALT (0-31) U/L Alkaline Phosphatase (39-117) U/L B-Natriuretic Peptide (<100) pg/mL Total Protein (6.5-8.0) g/dL Albumin (3.5-5.0) g/dL Urine Color Yellow Urine Appearance Clear Urine pH 6.5 (5.0-9.0) Ur Specific [place] 1.020 (1.005-1.025) Urine Protein Negative (Neg-Trace) mg/dL Urine Glucose (UA) Negative (Negative) mg/dL Urine Ketones Negative (Negative) mg/dL Urine Blood Negative (Negative) Urine Nitrite Negative (Negative) Ur Leukocyte Esterase Negative (Negative) Urine RBC 0-2 (0-2) /HPF Urine WBC 0-5 (0-5) /HPF Ur Squamous Epith Cells 0-2 (0-2) /HPF Urine Bacteria None Seen (None Seen) Hyaline Casts 0-2 (0-2) /LPF COVID-19 (CARMEN) (Negative) COVID-19 Clin Com Influenza Type A (CANDY) (Negative) Influenza Type B (CANDY) (Negative) Influenza A & B Note Independent Interpretation I performed an independent interpretation of an: EKG Interpretation: Normal sinus rhythm, right bundle branch block, no change found when compared with EKG 05/27/2022 Radiology Impression Discussion of test interpretation with radiology: I have reviewed the radiologist's reading. Radiologist Impression: FINDINGS: Minimal linear markings are seen at the lung bases. The upper lung hernandez are clear. The heart and mediastinal structures are unremarkable. XR/XR chest 2V IMPRESSION: Minimal bibasilar vascular crowding/atelectasis/scarring. No acute cardiopulmonary process. External Record Review External record reviewed: Prior outpatient labs, Prior outpatient radiology and Primary care record Discharge Plan Discharge Clinical Impression: Asthma-COPD overlap syndrome, SOBOE (shortness of breath on exertion) Patient Disposition: Home, Self-Care Instructions: Using Oxygen at Home (ED), COPD (Chronic Obstructive Pulmonary Disease) (DC), How to Use a Nebulizer (ED), Energy Conservation Techniques (ED) Additional Instructions: You were seen here today after experiencing symptoms of shortness of breath. Your x-ray were negative for any acute findings. Please follow-up with your continuity reader. Please follow-up with your pattern carrier as well. Your EKG was unchanged from last visit. Please return to emergency department if your symptoms will get worse or if your were experience any additional concerning symptoms. Prescriptions: No Action lidocaine [Lidoderm] 5 % adhesive patch,medicated 1 patch topical DAILY 30 Days Qty: 30 4RF Rx Instructions: leave on most painful area for up to 12 hrs albuterol sulfate 90 mcg/actuation HFA aerosol inhaler 2 puff PO QID Qty: 8.5 11RF doxycycline hyclate 100 mg capsule 100 mg PO BID 10 Days Qty: 20 0RF (DME) walker Misc See Rx Instructions .ROUTE .MEDSUPPLY Qty: 1 0RF Rx Instructions: As directed tramadol 50 mg tablet 50 mg PO Q8H PRN (Reason: pain, severe) Qty: 9 0RF ketoconazole 2 % shampoo 1 appl topical 2XW ipratropium bromide 21 mcg (0.03 %) spray,non-aerosol 2 spray intranasal BID buspirone 15 mg tablet 1 tab PO BID Gemtesa 75 mg tablet 75 mg PO DAILY lidocaine 4 % Adhesive Patch,Medicated 1 patch TOPICAL DAILY PRN (Reason: Pain) acetaminophen [Tylenol Extra Strength] 500 mg tablet 650 mg PO Q6H PRN (Reason: fever or pain) clonazepam [Klonopin] 0.5 mg tablet 0.5 mg PO BID Qty: 10 0RF gabapentin 300 mg capsule 4 cap PO BID meloxicam 15 mg Tablet 15 mg PO DAILY melatonin 10 mg Tablet 10 mg PO BEDTIME PRN (Reason: Insomnia) nystatin 100,000 unit/gram powder 1 appl topical BID Qty: 30 0RF zolpidem 10 mg tablet 10 mg PO BEDTIME duloxetine 60 mg capsule,delayed release(DR/EC) 60 mg PO DAILY ibuprofen 600 mg tablet 600 mg PO TID PRN (Reason: Pain) lisinopril 10 mg tablet 10 mg PO DAILY clonazepam 0.5 mg tablet 0.5 mg PO BID PRN (Reason: Anxiety) insulin aspart U-100 100 unit/mL (3 mL) insulin pen 0 sliding scale dose subcut QIDACHS Protocol: Insulin Correction Scale Less than or equal to 110 ---- Give (units): 0 111 to 150 Give (units): 0 151 to 200 Give (units): 2 201 to 250 Give (units): 4 251 to 300 Give (units): 6 301 to 350 Give (units): 8 Greater than 350 Give (units): 10 Call MD if Blood Glucose > : 350 liraglutide 0.6 mg/0.1 mL (18 mg/3 mL) pen injector 1.8 mg subcut DAILY insulin glargine 100 unit/mL (3 mL) insulin pen 54 unit subcut BEDTIME donepezil 5 mg tablet 5 mg PO BEDTIME Spiriva Respimat 2.5 mcg/actuation mist 2 puff inhalation DAILY 30 Days Qty: 4 11RF budesonide-formoterol 160-4.5 mcg/actuation HFA aerosol inhaler 2 puff PO BID Qty: 10.2 11RF (DME) CPAP Machine/Device Device See Rx Instructions .ROUTE Rx Instructions: As directed (DME) Oxygen Home Use Kit See Rx Instructions .ROUTE Rx Instructions: As directed aripiprazole 2 mg tablet 2 mg PO DAILY pregabalin 150 mg capsule 150 mg PO DAILY atorvastatin 80 mg tablet 80 mg PO DAILY Daliresp 250 mcg tablet 250 mcg PO DAILY 30 Days Qty: 30 11RF Referrals: Abhi Benson MD [Physician] -
--- NOTE | 2022-06-09 10:46 | ECG_ITS ---
Test Reason : SOB Blood Pressure : / mmHG Vent. Rate : 077 BPM Atrial Rate : 077 BPM P-R Int : 172 ms QRS Dur : 134 ms QT Int : 400 ms P-R-T Axes : 043 -13 021 degrees QTc Int : 452 ms Normal sinus rhythm Right bundle branch block Abnormal ECG When compared with ECG of 27-MAY-2022 13:02, No significant change was found Referred By: Vanessa Cooley Electronically Signed By:CHERYL PINTO MD
[2022-06-09 11:15] LABS: MANUAL DIFF FLAG NO
[2022-06-09 11:17] LABS: Basophils Percent Auto 0.5 % (0-2); Eosinophils Absolute Auto 0.1 X10*3/uL (0.0-0.4); Eosinophils Percent Auto 1.7 % (0-4); Hematocrit 36.3 % (37.0-47.0); Hemoglobin 11.4 g/dl (12.0-16.0); Imm Gran Abs Auto 0.04 X10*3/uL (0.00-0.03); Imm Gran Pct Auto 0.5 % (0.0-0.4); Lymphocytes Absolute Auto 1.9 X10*3/uL (1.2-4.9); Lymphocytes Percent Auto 25.9 % (20-40); Mean Corpuscular HGB Conc 31.4 g/dl (31.0-35.0); Mean Corpuscular Hemoglobin 29.9 pg (27.0-33.0); Mean Corpuscular Volume 95.3 fL (80.0-98.0); Mean Platelet Volume 9.2 fL (9.4-12.3); Monocytes Absolute Auto 0.6 X10*3/uL (0.1-1.2); Monocytes Percent Auto 8.4 % (2-11); Neutrophils Absolute Auto 4.7 x10*3/uL (2.0-8.3); Platelet Count 254 X10*3/uL (160-400); Red Blood Count 3.81 X10*6/uL (4.20-5.50); Red Cell Distribution Width 13.9 % (11.0-16.0); White Blood Count 7.5 X10*3/uL (4.8-10.8)
[2022-06-09 11:33] LABS: Alanine Aminotransferase 18 U/L (0-31); Albumin Level 3.4 g/dL (3.5-5.0); Alkaline Phosphatase 81 U/L (39-117); Anion Gap 14 (12-20); Aspartate Amino Transferase 26 U/L (5-31); Bilirubin Total 0.4 mg/dL (0.0-1.0); Blood Urea Nitrogen 24 mg/dL (9-16); Calcium 9.1 mg/dL (8.4-10.2); Carbon Dioxide 24 mmol/L (22-29); Chloride 108 mmol/L (96-108); Creatinine Clr Calc Pharmacy 66.5; Estimated Glomerular Filt Rate > 60; Glucose Random 101 mg/dL (60-115); Potassium 4.3 mmol/L (3.3-5.1); Sodium 142 mmol/L (135-145); Total Protein 5.9 g/dL (6.5-8.0)
[2022-06-09 11:40] VITALS: BP 118/68; PULSE 73; RESP 18; TEMP 37.2; O2SAT 99
[2022-06-09 11:52] LABS: COVID-19 Test Negative (Negative); IDNOW Serial# 08D9AD1C; IDNOW Serial# BCCEAD1C; Influenza A Negative (Negative); Influenza B2 Negative (Negative)
[2022-06-09 12:40] LABS: B Type Natriuretic Peptide 30 pg/mL (<100)
[2022-06-09 15:07] LABS: Glucose, Whole Blood 64 mg/dL (60-115)
[2022-06-09 16:47] LABS: Glucose, Whole Blood 90 mg/dL (60-115)
[2022-06-09 16:48] LABS: Appearance Urine Clear; Color Urine Yellow; Glucose Urine UA Negative (Negative); Leukocyte Esterase Urine Negative (Negative); Nitrite Urine Negative (Negative); PH 6.5 (5.0-9.0); Urine Blood Negative (Negative); Urine Ketones Negative (Negative); Urine Protein Negative (Neg-Trace)
[2022-06-09 16:53] LABS: Bacteria Urine None Seen (None Seen); Hyaline Casts Urine 0-2 /LPF (0-2); RBC Urine 0-2 /HPF (0-2); Squamous Epithelial Cell Urine 0-2 /HPF (0-2); WBC Urine 0-5 /HPF (0-5)
[2022-06-09 18:13] VITALS: BP 113/57; PULSE 66; RESP 18; O2SAT 99
== END 2022-06-09 18:21 | disposition home or self-care (01) ==
PROVIDERS: Nurse Practitioner Family; Emergency Provider Emergency Medicine
DX: J44.9 Chronic obstructive pulmonary disease, unspecified (principal); R06.00 Dyspnea, unspecified; R06.02 Shortness of breath; Z20.822 Contact with and (suspected) exposure to COVID-19; Z20.828 Contact with and (suspected) exposure to other viral communicable diseases; Z79.899 Other long term (current) drug therapy
CPT/HCPCS: 36415; 71046; 80053; 81001; 82947; 83880; 85025; 87502; 87635; 93005; 99284; 99285

== ENCOUNTER → 2022-06-10 13:14 | Outpatient (BNVA) | payer OTHER, SELFPAY | PROVIDERS: Visit Provider Internal Medicine Endocrinology, Diabetes & Metabolism | DX: E11.9 Type 2 diabetes mellitus without complications (principal); Z79.4 Long term (current) use of insulin | CPT/HCPCS: 82947; 83036; 99202 ==

== ENCOUNTER → 2022-07-13 22:18 | Outpatient (REF) | payer OTHER, SELFPAY | LOC: HO.SL 22:18 | PROVIDERS: Visit Provider Hospitalist | DX: G47.33 Obstructive sleep apnea (adult) (pediatric) (principal); J96.10 Chronic respiratory failure, unspecified whether with hypoxia or hypercapnia | CPT/HCPCS: 95810 ==

== ENCOUNTER → 2022-07-14 14:34 | Outpatient (BNVA) | payer OTHER, SELFPAY | PROVIDERS: Visit Provider Dietitian, Registered | DX: E11.9 Type 2 diabetes mellitus without complications (principal) | CPT/HCPCS: 97802 ==

== ENCOUNTER → 2022-08-03 11:05 | Outpatient (BNVA) | payer OTHER, SELFPAY | PROVIDERS: PCP Family Medicine; Visit Provider Hospitalist | DX: J44.9 Chronic obstructive pulmonary disease, unspecified (principal); J96.21 Acute and chronic respiratory failure with hypoxia; J96.22 Acute and chronic respiratory failure with hypercapnia; I27.20 Pulmonary hypertension, unspecified; I26.99 Other pulmonary embolism without acute cor pulmonale; I82.402 Acute embolism and thrombosis of unspecified deep veins of left lower extremity; Z79.01 Long term (current) use of anticoagulants; Z99.81 Dependence on supplemental oxygen | CPT/HCPCS: 99212 ==

== ENCOUNTER → 2022-08-24 10:05 | Outpatient (BNVA) | payer OTHER, SELFPAY | PROVIDERS: Visit Provider Internal Medicine Cardiovascular Disease | DX: I26.99 Other pulmonary embolism without acute cor pulmonale (principal); R00.2 Palpitations | CPT/HCPCS: 99212 ==

== ENCOUNTER → 2022-09-01 09:58 | Outpatient (REF) | payer OTHER, SELFPAY ==
[2022-09-01 11:21] LABS: Cholesterol 155 mg/dL; HDL Cholesterol 61 mg/dL; LDL Cholesterol Calculated 77 mg/dl; Triglycerides 89 mg/dL
[2022-09-01 11:38] LABS: Creatinine Urine 66.35 mg/dL; Microalbum/Creatinine Ratio Ur 16.5 ug/mg cr
== END ==
LOC: HO.CARD 09:58
PROVIDERS: Absent Provider Hospitalist; PCP Internal Medicine; Referring Provider Internal Medicine Endocrinology, Diabetes & Metabolism; Visit Provider Internal Medicine Cardiovascular Disease
DX: R00.2 Palpitations (principal); E11.9 Type 2 diabetes mellitus without complications
CPT/HCPCS: 36415; 80061; 82043; 93242; 99212

== ENCOUNTER → 2022-09-09 12:30 | Outpatient (BNVA) | payer OTHER, SELFPAY | PROVIDERS: PCP Internal Medicine; Visit Provider Internal Medicine Endocrinology, Diabetes & Metabolism | DX: E11.9 Type 2 diabetes mellitus without complications (principal) | CPT/HCPCS: 82947; 83036; 99212 ==

== ENCOUNTER 2022-09-22 12:00 | Outpatient (REF) | payer OTHER, SELFPAY ==
[2022-09-22 14:35] LABS: D Dimer High Sensitivity 206 NG/ML
[2022-09-22 14:35] LABS: Appearance Urine Cloudy; Color Urine Dark Yellow; Glucose Urine UA Negative (Negative); Leukocyte Esterase Urine Small (1+) (Negative); Nitrite Urine Negative (Negative); Specific Gravity - Urine >= 1.030 (1.005-1.025); UMIC TRIGGER UA YES; Urine Blood Negative (Negative); Urine Ketones 15 mg/dL (Negative); Urine Protein 30 (1+) mg/dL (Neg-Trace)
[2022-09-22 14:45] LABS: Bacteria Urine 1+ (None Seen); RBC Urine 0-2 /HPF (0-2)
== END 2022-09-22 12:01 | disposition home or self-care (01) ==
LOC: HO.LAB 12:00
PROVIDERS: Internal Medicine Cardiovascular Disease; PCP Internal Medicine; Visit Provider Internal Medicine
DX: I26.99 Other pulmonary embolism without acute cor pulmonale (principal); R30.0 Dysuria
CPT/HCPCS: 36415; 81001; 85379; 87086

== ENCOUNTER 2022-10-04 14:32 | Outpatient (AMB) | payer OTHER, SELFPAY ==
--- NOTE | 2022-10-04 15:11 | A.OFFVIS_ITS ---
Intake Intake Visit Reasons: DM2 C Software Developer Required: No Accompanied by: Grand Child Allergies aspirin [ASPIRIN] Allergy (Intermediate, Verified 09/09/22 12:43) GI UPSET, stomach pain latex [LATEX] Allergy (Intermediate, Verified 09/09/22 12:43) HIVES HPI Comprehensive Diabetes Asmnt Most Recent Diabetes Results: Microalb/Creat Ratio 16.5 ug/mg cr 09/01/22 Cholesterol 155 mg/dL 09/01/22 HDL Cholesterol 61 mg/dL 09/01/22 Triglycerides 89 mg/dL 09/01/22 PFSH Medical History (Updated 08/24/22 @ 12:42 by Олег Longoria MD) Acute on chronic respiratory failure with hypoxia and hypercapnia Acute respiratory failure Arnold-Chiari malformation Arthritis Asthma Asthma-COPD overlap syndrome Back pain Cardiomegaly Chest crackles Chronic respiratory failure Cough Diabetes DVT (deep venous thrombosis) Fibromyalgia [place] (hard of hearing) Hyperlipidemia Hypertension Morbid obesity CASSANDRA treated with BiPAP Pneumonia PONV (postoperative nausea and vomiting) Post herpetic neuralgia Pulmonary emboli Pulmonary hypertension Sinusitis Surgical History H/O bilateral breast reduction surgery H/O brain surgery H/O colonoscopy History of esophagogastroduodenoscopy (EGD) Hx of eye surgery Hx of laparoscopic gastric banding Family History Mother HTN (hypertension) Breast cancer Father Primary cancer of bone marrow Social History Household Members: Other Household Members Other:: granddaughter Housing: Apartment Are you a primary in home caregiver to a significant other at home: No 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 Arambula. When patient went to change sensor she inadvertently discarded Dexcom transmitter Patient has not been testing blood sugars Set up Dexcom G7 for patient. Patient has 90 Day supply of Dexcom G6 sensors. Encourage patient to call Dexcom to see if they will replace G6 transmitter Patient does have lipoma was in upper arm she is unable to wear sensor in the back of her arm Instructed Pt on what CGM can and can't do CGM Can: Give Pt minute by minute reading of glucose levels Displays glucose trend arrows that represents the direction glucose levels are fluctuating Give insight on decisions about how to dose insulin CGM cannot: Improve glucose control on its own Completely eliminate the need for all finger sticks Make dosing decision for you CGM is the reading of glucose in the interstitial fluid not actual blood glu cose, finger sticks are still necessary when Pt's symptom?s do not match sensor reading and if sensors prompts Pt to do a fingerstick G7 sensor placed in the upper left abdomen Patient was given 2 additional G7 sensors Encourage patient to follow up with Dexcom regarding G6 transmitter Reviewed delay of CGM from fingersticks Reminded pt that if symptoms do not match sensor still needs to check fi ngersticks. Patient Instructions: Patient instruction: CGM provides information on blood glucose control throu ghout the day, including hyperglycemia and hypoglycemia. ? Continue to monitor blood glucose as instructed. Follow nutrition guidelines provided. Report any discomfort promptly to health care provider. ?Stay well-hydrated. You can bathe ,shower, swim and exerce while wearing the glucose sensor. Do not submerge glucose sensor in water for more than 30 minutes. Remove sensor for MRI or CAT scan. Avoid Xray machine in airports - remove sensor or request wand Coding Level of Care Code Est Pt Level 1 (95474) Diagnoses Diabetes E11.9
== END 2022-10-04 15:16 | disposition home or self-care (01) ==
PROVIDERS: PCP Internal Medicine; Visit Provider Registered Nurse Diabetes Educator
DX: E11.9 Type 2 diabetes mellitus without complications (principal)

== ENCOUNTER → 2022-10-04 14:32 | Outpatient (BNVA) | payer OTHER, SELFPAY | PROVIDERS: PCP Internal Medicine; Visit Provider Registered Nurse Diabetes Educator | DX: E11.9 Type 2 diabetes mellitus without complications (principal) | CPT/HCPCS: 99211 ==

== ENCOUNTER 2022-10-11 10:03 | Outpatient (AMB) | payer OTHER, SELFPAY ==
[2022-10-11 10:06] VITALS: BP 98/53; PULSE 78; BMI 38.7
--- NOTE | 2022-10-11 10:06 | MHC.OFFVIS ---
Intake Vital Signs 10/11/22 10:06 Height 5 ft Weight 198 lb 6.656 oz BMI 38.7 BP 98/53 L Blood Pressure Location Lt brachial Position Sitting Pulse 78 Intake Visit Reasons: follow up Intake Note: Madeleine presents in the office as a follow up. CC: She states that her stomach has been hurting her. Bloating with constipation all the time. When she eats sometimes she will get severe acid reflux. Chip Drier Required: No Allergies aspirin [ASPIRIN] Allergy (Intermediate, Verified 10/11/22 10:08) GI UPSET, stomach pain latex [LATEX] Allergy (Intermediate, Verified 10/11/22 10:08) HIVES HPI HPI Comments History of Present Illness Details This is a 71-year-old female past medical history of asthma/COPD, with recent admission to the hospital in November for exacerbation, and more recently COVID-19 infection. She presents to the office today for follow up after EGD for dysphagia. Initial visit 02/08/22: Patient states that for the past 2-3 months, she has been noticing progressive difficulty with certain textures food such as pasta, meat, rice, hard vegetables as carrots or broccoli. She has a sensation of food getting stuck in her mid chest associated with increased salivation and spitting up until she vomits it up after which she feels better. She denies any blood in the vomiting, changes in appetite, unintentional weight loss. No difficulty with thick liquids or thin liquids. Patient does not smoke. Rare alcohol use. No family history of esophageal or stomach cancer. Secondly, she also brings up occasional constipation, relieved with taking senna or MiraLax. She has also started using a foot stool that seems to have helped some. She states that on the she takes some kind of laxative, she is not able to void all for up to a week. Stool becomes very hard and she has to strain for many minutes on the toilet. Denies any change in the caliber of stool or blood in stool. Has occ urinary incontinence. Obstetric hx pertinent for 2 vaginal deliveries and 1 C section with babies weighing 7#, 8# and 9# respectively. Her last endoscopy was in 2018 or early 2018. Patient thinks she had both upper endoscopy and colonoscopy at that time, at [facility]. EGD 02/2022: UES narrowing (dilation to 18 mm) Normal esophagus (biopsy) Hiatal hernia Normal stomach Normal duodenum?? Path: A.? Esophagus, lower, biopsy:? Squamous mucosa with no specific change; no columnar mucosa present.? B.? Esophagus, mid, biopsy:? Squamous mucosa with no specific change; no columnar mucosa present; no evidence of eosinophilic esophagitis. 03/11/22: Reports significant improvement in her swallowing. Is able to tolerate all textures and foods. Path report reviewed, which is grossly normal. Patient also reports increased abdominal bloating and feeling of fullness. Has diabetes which is poorly controlled, more over takes mostly fatty diet. For example, for lunch today she had clam chowder, fries and iverson. 10/11/22: Presents with her MEDICAL SCIENTIST. Collateral hx was obtained from the daughter over the phone. Had a recent admission to [facility] for respiratory failure requiring ICU stay. Course was complicated by severe diarrhea and was found to have CDI. Completed PO Abx. Reportedly was advised to have a colonoscopy to check for resolution of C Diff for which she is here. Pt herself continues to have abd discomfort and nausea jennifer when her sugars are high (has a CGM now). [facility] Medical History Acute on chronic respiratory failure with hypoxia and hypercapnia Acute respiratory failure Arnold-Chiari malformation Arthritis Asthma Asthma-COPD overlap syndrome Back pain Cardiomegaly Chest crackles Chronic respiratory failure Cough Diabetes DVT (deep venous thrombosis) Fibromyalgia [place] (hard of hearing) Hyperlipidemia Hypertension Morbid obesity CASSANDRA treated with BiPAP Pneumonia PONV (postoperative nausea and vomiting) Post herpetic neuralgia Pulmonary emboli Pulmonary hypertension Sinusitis Surgical History H/O bilateral breast reduction surgery H/O brain surgery H/O colonoscopy History of esophagogastroduodenoscopy (EGD) Hx of eye surgery Hx of laparoscopic gastric banding Family History Mother HTN (hypertension) Breast cancer Father Primary cancer of bone marrow Social History Household Members: Other Household Members Other:: granddaughter Housing: Apartment Are you a primary transitional care manager to a significant other at home: No Do you presently have visiting nurse or other home services: Yes (MEDICAL SCIENTIST) Alcohol intake: never Patient Tobacco Use Status: Former Tobacco user Quit Date: Tobacco use type: Cigarette Years Smoked: 15 +/- Advance Directives Date on File: 11/11/21 Review of Systems Const All systems reviewed & are unremarkable except as noted in HPI and below Physical Exam Vital Signs: Last Vital Signs Pulse 78 10/11/22 10:06 BP 98/53 L 10/11/22 10:06 BMI result Body Mass Index 38.7 Gen appear: No acute distress, cushingoid body type with increased abdominal girth and thin arms/ legs HEENT: no icterus, no cervical lymphadenopathy Chest: No overt resp distress CVS: S1/S2, regular Abd: soft, nontender, midlly distended Psych: Stable affect, answering questions appropriately Neuro: A/Ox3 noted to move all extremities spontaneously Ext: no peripheral edema Assessment & Plan Assessment & Plan (1) History of Clostridioides difficile infection: Code(s): Z86.19 - Personal history of other infectious and parasitic diseases (2) Bloating: Code(s): R14.0 - Abdominal distension (gaseous) Plan 1. Discussed with the pt and her daughter that typically a colonoscopy is NOT indicated to document clearance of CDI, this is based on clinical improvement. However, we will obtain records from her hospitalization to see if there were any other findings that warrant further endoscopic evaluation. Release of info form signed today. 2. In terms of her abdominal symptoms of feeling of bloating, fullness and nausea, likely has delayed gastric emptying due to high blood sugars. She was also advised to avoid fatty foods, as that also contributes to delayed emptying. Recommend optimization of diabetes as she is already doing. Follow up contingent on above Coding Level of Care Code Est Pt Level 4 (83035) Diagnoses History of Clostridioides difficile infection Z86.19 Bloating R14.0
== END 2022-10-11 10:57 | disposition home or self-care (01) ==
PROVIDERS: PCP Internal Medicine; Visit Provider Internal Medicine
DX: Z86.19 Personal history of other infectious and parasitic diseases (principal); R14.0 Abdominal distension (gaseous)
CPT/HCPCS: 99214

== ENCOUNTER → 2022-10-11 10:03 | Outpatient (BNVA) | payer OTHER, SELFPAY | PROVIDERS: PCP Internal Medicine; Visit Provider Internal Medicine | DX: R14.0 Abdominal distension (gaseous) (principal); Z86.19 Personal history of other infectious and parasitic diseases | CPT/HCPCS: 99212 ==

== ENCOUNTER 2022-10-20 09:55 | Outpatient (AMB) | payer OTHER, SELFPAY ==
[2022-10-20 10:20] VITALS: PULSE 89; O2SAT 91; BMI 37.1
--- NOTE | 2022-10-20 10:20 | A.OFFVIS_ITS ---
Intake Vital Signs 10/20/22 10:20 Height 5 ft Weight 190 lb BMI 37.1 Pulse 89 Pulse Source Pulse Oximeter Pulse Oximetry (%) 91 L Oxygen Delivery Method Room Air Intake Visit Reasons: Respiratory failure Food Counter Attendant Required: No Allergies aspirin [ASPIRIN] Allergy (Intermediate, Verified 10/20/22 10:22) GI UPSET, stomach pain latex [LATEX] Allergy (Intermediate, Verified 10/20/22 10:22) HIVES HPI HPI Comments History of Present Illness Details Pleasant 72-year-old female who is here for follow-up. She has history of asthma COPD overlap syndrome, obstructive sleep apnea, hypertension and hyperlipidemia. She was seen a year ago when she presented after getting a CT scan of her chest for lung assessment which showed concern for cardiomegaly. She has advanced COPD and is supposed to be on oxygen at nighttime and with ambulation. She was complaining of some tachycardia at that time. She also complained that her saturations at times were in 80s and she had to use supplemental oxygen to bring it up. We performed an echocardiogram in May 2021 which showed vigorous LV function with EF of 60-70% without any regional wall motion abnormalities. Normal right ventricular size and function. Right ventricular systolic pressure could not be calculated. In June 2022 she got admitted to [facility] with shortness of breath and lower extremity swelling. She was diagnosed with DVT with occlusive thrombus more than 5 cm in length within the paired left peroneal veins. ECHO and CT scan reports were reviewed. Again her RV systolic pressure could not be determined. She had normal biventricular function. She had CT scan of the chest which did not show any central PE but could not rule out subsegmental PE. She was treated as if she had pulmonary emboli and has been on Xarelto since then. She was advised that she should continue it for 3 months. She is returning for follow-up after the hospital admission. She has been taking Xarelto regularly and has no bleeding concerns. She is doing better and is denying any significant chest pain or shortness of breath. She does have palpitations at nighttime which are quite consistent. No palpitations during the daytime. 09/01/2022 the patient is here for a pulmonary follow-up visit. Overall the pa remy has been doing little better. She is getting stronger and respiratory status is overall better. Yesterday she did get cortisone shot to her back and hands and pain discomfort. She is wondering about a portable oxygen concentrator. We will have to do a 6 minute walk test to see if she qualifies for the conserving device. She cannot do it right now. Wants to hold off till next time. In the meantime the patient did get her noninvasive ventilator for her respiratory failure. Unfortunately it has been hard for her to tolerate it. She did bring it in. I did titrate the pressure is down to see if she can tolerate it easier decreasing both the minimum pressure support and a minimum expiratory pressure. She seemed to tolerate it better. She also has noticed that when she lays flat her oxygen pulse ox decreases at home. Therefore she can increase her oxygen to 3 L while using the noninvasive ventilator will plan to perform an overnight oximetry while on the settings to make sure that she is getting adequate support and further adjustments. I did reach out to Sarah to see if they can further adjust her machine when she is situated. She continue with the current therapy. Also continues with diuresis tolerated. She will continue with the current respiratory diabetes. We will follow up between 4-6 weeks. 10/20/2022 the patient is here for pulmonary follow-up visit. Overall the patient is doing better from a respiratory status. She continues use the oxygen with good effect. She did get the noninvasive ventilator. She has had some difficulty tolerating the therapy. She is trying to use it during the daytime and also at nighttime. I did emphasize to her the importance of it specially since her CO2 is already elevated this will help improve her gas exchange and decreased hospitalizations. The patient is aware she is going to try to use it more often. She continues use her respiratory therapy with good effect. She is also using the oxygen with good effect. In the recent imaging studies of blood work to review. Her major issue is significant neuropathy and muscle weakness. I do believe that she will benefit from pulmonary rehabilitation specially if she continues to lose muscle mass she is going to be at risk for worsening respiratory failure. Therefore I am going to have her undergo PFTs and start pulmonary rehab. In addition to that she will have a neurology evaluation. [facility] Medical History Acute on chronic respiratory failure with hypoxia and hypercapnia Acute respiratory failure Arnold-Chiari malformation Arthritis Asthma Asthma-COPD overlap syndrome Back pain Cardiomegaly Chest crackles Chronic respiratory failure Cough Diabetes DVT (deep venous thrombosis) Fibromyalgia [place] (hard of hearing) Hyperlipidemia Hypertension Morbid obesity CASSANDRA treated with BiPAP Pneumonia PONV (postoperative nausea and vomiting) Post herpetic neuralgia Pulmonary emboli Pulmonary hypertension Sinusitis Surgical History H/O bilateral breast reduction surgery H/O brain surgery H/O colonoscopy History of esophagogastroduodenoscopy (EGD) Hx of eye surgery Hx of laparoscopic gastric banding Family History Mother HTN (hypertension) Breast cancer Father Primary cancer of bone marrow Social History Household Members: Other Household Members Other:: granddaughter Housing: Apartment Are you a primary director of home care hospice to a significant other at home: No Do you presently have visiting nurse or other home services: Yes (FIRST AID OFFICER) Alcohol intake: never Patient Tobacco Use Status: Former Tobacco user Quit Date: Tobacco use type: Cigarette Years Smoked: 15 +/- Advance Directives Date on File: 11/11/21 Review of Systems Const Reports daytime sleepiness and Reports weight loss Eyes Reports loss of vision ENT Reports dizziness, Reports hearing loss, Reports nasal congestion, Reports nasal discharge, Reports sinus pain and Reports sinus pressure Card Reports leg edema, Reports lightheadedness, Reports palpitations, Reports dyspnea on exertion and Reports orthopnea Resp Reports cough and Reports dyspnea on exertion GI Reports heartburn and Reports vomiting Musc Reports abnormal gait, Reports atrophy, Reports arthralgias, Reports muscle weakness, Reports numbness and Denies other (Frequent falls) Skin/Breast Reports nail changes and Reports rash Neuro Reports Abnormal speech present, Reports abnormal gait, Reports dizziness, Reports loss of vision and Reports numbness Endo Reports palpitations Physical Exam Vital Signs: Last Vital Signs Pulse 89 10/20/22 10:20 Pulse Ox 91 L 10/20/22 10:20 Oxygen Delivery Method Room Air 10/20/22 10:20 BMI result Body Mass Index 37.1 Const General: comfortable and alert Limitations: wheelchair Neck Neck: Yes normal visual inspection, Yes full ROM and Yes no lymphadenopathy Chest Chest palpation & inspection: normal inspection of the chest Resp Auscultation: diminished lung sounds Cardio Rate: regular rate Rhythm: regular rhythm Heart sounds: S1 normal heart sound present and S2 normal heart sound present GI Palpation (GI): Soft to palpation Auscultation: normal bowel sounds Skin General skin exam: rashes and/or lesions noted Neuro Speech: Abnormal speech present Extrem General: Yes no clubbing, cyanosis or edema Assessment & Plan Assessment & Plan (1) Asthma-COPD overlap syndrome: Code(s): J44.9 - Chronic obstructive pulmonary disease, unspecified (2) Pulmonary emboli: Code(s): I26.99 - Other pulmonary embolism without acute cor pulmonale (3) Pulmonary hypertension: Code(s): I27.20 - Pulmonary hypertension, unspecified (4) DVT (deep venous thrombosis): Code(s): I82.409 - Acute embolism and thrombosis of unspecified deep veins of unspecified lower extremity (5) Chronic respiratory failure: Code(s): J96.10 - Chronic respiratory failure, unspecified whether with hypoxia or hypercapnia Qualifiers: Respiratory failure complication: hypoxia and hypercapnia Qualified Code(s): J96.11 - Chronic respiratory failure with hypoxia; J96.12 - Chronic respiratory failure with hypercapnia Plan continue Oxygen 2-3 L/pulse with activity. Will need to perform conserving device trial during the next visit. Would benefit POC for better portability continue Trelegy daily MISBAH as needed Fluticasone nasal spray Non invasive ventilator, Astral, script sent to Rick, will increase oxygen 3L with NIV Overnight oximetry while on Astral nasal saline rinsing prior to PAP therapy Continue respiratory therapy PFTs Pulmonary rehab F/U 3-4 months Orders: Orders PFT pulmonary function test Today J44.9 - Chronic obstructive pulmonary disease, unspecified, J98.4 - Other disorders of lung Pulmonary Rehab Today J44.9 - Chronic obstructive pulmonary disease, unspecified, J96.10 - Chronic respiratory failure, unspecified whether with hypoxia or hypercapnia, J98.4 - Other disorders of lung Coding Level of Care Code Est Pt Level 4 (96405) Diagnoses Asthma-COPD overlap syndrome J44.9 Pulmonary emboli I26.99 Pulmonary hypertension I27.20 DVT (deep venous thrombosis) I82.409 Chronic respiratory failure J96.11; J96.12 Respiratory failure complication: hypoxia and hypercapnia Time Spent (min) 18
== END 2022-10-20 10:42 | disposition home or self-care (01) ==
PROVIDERS: PCP Internal Medicine; Visit Provider Hospitalist
DX: J44.9 Chronic obstructive pulmonary disease, unspecified (principal); I26.99 Other pulmonary embolism without acute cor pulmonale; I27.20 Pulmonary hypertension, unspecified; I82.409 Acute embolism and thrombosis of unspecified deep veins of unspecified lower extremity; J96.11 Chronic respiratory failure with hypoxia; J96.12 Chronic respiratory failure with hypercapnia
CPT/HCPCS: 99214

== ENCOUNTER → 2022-10-20 10:11 | Outpatient (BNVA) | payer OTHER, SELFPAY | PROVIDERS: PCP Internal Medicine; Visit Provider Hospitalist | DX: J44.9 Chronic obstructive pulmonary disease, unspecified (principal); J96.11 Chronic respiratory failure with hypoxia; J96.12 Chronic respiratory failure with hypercapnia; I26.99 Other pulmonary embolism without acute cor pulmonale; I82.409 Acute embolism and thrombosis of unspecified deep veins of unspecified lower extremity; I27.20 Pulmonary hypertension, unspecified | CPT/HCPCS: 99212 ==

== ENCOUNTER 2022-11-17 | Outpatient (REF) | payer OTHER, SELFPAY | END 2022-11-17 00:01 | disposition home or self-care (01) | LOC: CF | PROVIDERS: PCP Internal Medicine; Visit Provider Internal Medicine Endocrinology, Diabetes & Metabolism | DX: E11.9 Type 2 diabetes mellitus without complications (principal) | CPT/HCPCS: 99211 ==

== ENCOUNTER 2022-11-17 10:55 | Outpatient (AMB) | payer OTHER, SELFPAY ==
--- NOTE | 2022-11-17 11:08 | MHC.AMDMED ---
Intake Intake Visit Reasons: DM/confirmed Allergies aspirin [ASPIRIN] Allergy (Intermediate, Verified 10/20/22 10:22) GI UPSET, stomach pain latex [LATEX] Allergy (Intermediate, Verified 10/20/22 10:22) HIVES HPI Comprehensive Diabetes Asmnt Most Recent Diabetes Results: Microalb/Creat Ratio 16.5 ug/mg cr 09/01/22 Cholesterol 155 mg/dL 09/01/22 HDL Cholesterol 61 mg/dL 09/01/22 Triglycerides 89 mg/dL 09/01/22 PFSH Medical History Acute on chronic respiratory failure with hypoxia and hypercapnia Acute respiratory failure Arnold-Chiari malformation Arthritis Asthma Asthma-COPD overlap syndrome Back pain Cardiomegaly Chest crackles Chronic respiratory failure Cough Diabetes DVT (deep venous thrombosis) Fibromyalgia [place] (hard of hearing) Hyperlipidemia Hypertension Morbid obesity CASSANDRA treated with BiPAP Pneumonia PONV (postoperative nausea and vomiting) Post herpetic neuralgia Pulmonary emboli Pulmonary hypertension Sinusitis Surgical History H/O bilateral breast reduction surgery H/O brain surgery H/O colonoscopy History of esophagogastroduodenoscopy (EGD) Hx of eye surgery Hx of laparoscopic gastric banding Family History Mother HTN (hypertension) Breast cancer Father Primary cancer of bone marrow Social History Household Members: Other Household Members Other:: granddaughter Housing: Apartment Are you a primary complex care nurse to a significant other at home: No Do you presently have visiting nurse or other home services: Yes (PLATEN PRESS OPERATOR) Alcohol intake: never Patient Tobacco Use Status: Former Tobacco user Quit Date: Tobacco use type: Cigarette Years Smoked: 15 +/- Advance Directives Date on File: 11/11/21 Assessment & Plan Assessment & Plan (1) Diabetes: Code(s): E11.9 - Type 2 diabetes mellitus without complications Plan: Learning objectives: The patient was provided with verbal and written education on the following topics as outlined below. The patient met all learning objectives and was able to verbalize understanding and provide teach back of education topics discussed . The patient was provided with the opportunity to ask questions and all questions were answered. Patient Assessment Assess patient education level/literacy/barriers Patient questions/concerns, patient reports she prefers Dexcom G7 sensors to Dexcom G6. Patient given 2 sample Dexcom G7 sensor, message sent to provider to send new prescription to upgrade from Dexcom G6 to Dexcom G7 What is Diabetes? Pathophysiology How the body produces and uses insulin Identify type of DM Risk factors Signs of Diabetes Brief overview of Diabetes Management Monitoring blood sugar Following a meal plan Regular exercise Maintaining a healthy weight Taking medication as needed Members of the care team (PCP, RN, MA, RD, CDE, transportation attendant) Blood glucose monitoring When/how often to test Target blood sugar ranges Patient did not bring meter or CGM to today's visit Introduction to Nutrition Importance of healthy diet in managing DM Diet is personalized to individual preference Review patient?s regular diet/food preferences Who prepares meals/does food shopping/ Dining out?/ Barriers? How diet effects glucose Eating 3 balanced meals a day with small, healthy snacks between meals Review food groups Carbohydrates: What is a carbohydrate/Which food/food groups are considered carbohydrates Effect of carbohydrates on blood glucose Portion sizes Reading food labels Basic carb counting (if applicable per nursing assessment) Plate method Meal planning Recommendations: Follow plate method, consistent carbs and read nutritional labels. Smart Goal: Patient will keep carbohydrates and mealtime from 30-45 g per meal Educational Materials: The patient was provided with the following written educational materials: Planning Healthy Meals Handout Patient Response to instructions: Comprehension of Instructions: Fair Readiness to make changes: Contemplation How confident they feel about making changes: Positive Medications: Discontinued blood-glucose sensor (Dexcom G6 Sensor device) Discontinued Reason: Doctor's Order As directed change every 10 days 3 ea 4RF blood-glucose meter,continuous (Dexcom G6 Public Affairs Manager) Discontinued Reason: Duplicate As directed 1 ea 0RF Patient Instructions: Include regular daily activity. ADA recommends 30 minutes of exercise 5 days a week. Weight loss talk to PCP or Jig And Fixture Repairer before starting new plan. Test blood sugar as directed; Fasting and 2hpp largest meal. Watch trends in results. Utilize results and to assess how food, physical activity and medications affect blood sugar results. Bring glucometer or CGM to next visit. Be knowledgeable about diabetes medication, its action, side effects, efficacy, toxicity, prescribed dosage, appropriate timing and frequency of administration, effect of missed and delayed doses and instructions for storage, travel and safety. Problem solving techniques to monitor hypo/hyperglycemia episodes and treatments. Reduce risk reduction behaviors, smoking cessation, regular eye, foot and dental examinations. Coding Level of Care Code Est Pt Level 1 (94920) Diagnoses Diabetes E11.9
== END 2022-11-17 11:28 | disposition home or self-care (01) ==
PROVIDERS: PCP Internal Medicine; Visit Provider Registered Nurse Diabetes Educator
DX: E11.9 Type 2 diabetes mellitus without complications (principal)

== ENCOUNTER 2022-12-01 14:35 | Outpatient (REF) | payer OTHER, SELFPAY ==
--- NOTE | 2022-12-01 15:15 | PFT_ITS ---
Forced vital capacity 51%, FEV1 61%, FEV1/FVC ratio is 119. [id number] is 133% and MVV 61%. Post bronchodilator therapy, there is no change. Total lung capacity 57%. Residual volume 48%. Diffusion capacity 52%. CONCLUSION: Moderately severe restrictive pulmonary disorder. No evidence of obstructive airway disorder. Clinical correlation is recommended. MD MARYAN Hall/GIOVANA / [phone]
== END 2022-12-01 14:36 | disposition home or self-care (01) ==
LOC: HO.RESP 14:35
PROVIDERS: PCP Internal Medicine; Visit Provider Hospitalist
DX: J98.4 Other disorders of lung (principal); J44.9 Chronic obstructive pulmonary disease, unspecified
CPT/HCPCS: 94010; 94727; 94729

== ENCOUNTER → 2022-12-01 15:15 | Outpatient (BNV) | payer OTHER, SELFPAY | PROVIDERS: PCP Internal Medicine; Visit Provider Internal Medicine | DX: J44.9 Chronic obstructive pulmonary disease, unspecified (principal) | CPT/HCPCS: 94060; 94727; 94729 ==

== ENCOUNTER 2022-12-23 11:15 | Emergency (ER) | payer OTHER, SELFPAY ==
--- NOTE | ~2022-12-23 | CT_ITS ---
EXAMINATION: CT HEAD WITHOUT CONTRAST CT CERVICAL SPINE WITHOUT CONTRAST CLINICAL INFORMATION: Fall. Patient on anticoagulant. Head and neck pain. COMPARISON: CT head from 07/11/2020. TECHNIQUE: Contiguous axial imaging was performed from the skull base to vertex without intravenous administration of contrast. Contiguous axial imaging was performed from the upper chest through the skull base without intravenous administration of contrast. Coronal and sagittal reformats were obtained at the acquisition workstation. This CT examination was performed using dose optimization techniques as appropriate, variously including the following: *Automated exposure control. *Adjustment of mA and/or kV according to patient size (this includes techniques or standardized protocols for targeted exams where dose is matched to indication/reason for exam; i.e. extremities or head). *Use of iterative reconstruction technique. DLP: 1495 mGy-cm FINDINGS: Head: Changes of prior decompressive suboccipital craniectomy. Underlying Chiari I malformation with mildly low-lying cerebellar tonsils. There is no evidence of acute intracranial hemorrhage or edematous territorial infarction. Addison-white matter differentiation is preserved. Scattered and partially confluent hypoattenuation in the periventricular and deep white matter are consistent with moderate microangiopathy. Proportional prominence of the ventricles and sulcal spaces without evidence of obstructive hydrocephalus. No abnormal mass effect or midline shift. No extra-axial fluid collections. No acute soft tissue or osseous abnormalities. Small left-sided mastoid effusion. The right-sided mastoid air cells and visualized paranasal sinuses are clear. Moderate degenerative arthropathy of the left temporal mandibular joint. Bilateral lens extractions. Cervical Spine: The atlantooccipital and atlantoaxial articulations remain well aligned. Reversal the normal cervical lordosis centered on C5. Moderate degenerative stepwise anterolistheses of C2-C5. Moderate degenerative stepwise retrolisthesis of C5-C7. Prior decompressive resection of the posterior arch of C1. No evidence of acute fracture or subluxation. The vertebral body heights are maintained. Advanced degenerative disc disease from C5-C7. Mild to moderate degenerative disc disease at all additional levels. Facet and uncovertebral joint arthropathy leads to osseous encroachment on the neural foramina from C5-C7. There is no prevertebral soft tissue swelling. The thyroid gland and remaining cervical soft tissues are within normal limits. The lung apices demonstrate no abnormalities. CT/CT cervical spine wo IV con IMPRESSION: 1. No evidence of acute intracranial hemorrhage or edematous territorial infarction. Moderate underlying microangiopathy and generalized cerebral volume loss. 2. No evidence of acute fracture or traumatic subluxation of the cervical spine. Moderate multilevel degenerative spondyloarthropathy of the cervical spine.
[2022-12-23 11:26] VITALS: BP 136/78; PULSE 97; O2SAT 95
--- NOTE | 2022-12-23 11:26 | ED_ITS ---
HPI - General Adult General Chief complaint: Fall Stated complaint: fall last night Time Seen by Provider: 12/23/22 19:37 Source: patient, RN notes reviewed and old records reviewed Mode of arrival: ambulatory Limitations: no limitations History of Present Illness HPI narrative: 72-year-old female presents for evaluation of left sided headache and left hip pain. Patient reports that she suffered a fall yesterday which was not syncopal. She tried to get up to go the bathroom and when she tried to sit on the toilet, she fell to the ground. She injured her left hip and also hit the left side of her head Denies any loss of consciousness but reports that she was on the ground for about 2 hours Fall was about 36 hours ago She has been able to ambulate since the fall She has no other complaints or concerns at this time. She is not currently on any anticoagulation Related Data Home Medications Medication Instructions Recorded Confirmed duloxetine 60 mg capsule,delayed 60 mg PO DAILY 02/06/20 08/24/22 release ibuprofen 600 mg tablet 600 mg PO TID PRN Pain 02/06/20 08/24/22 lisinopril 10 mg tablet 10 mg PO DAILY 02/06/20 08/24/22 liraglutide 0.6 mg/0.1 mL (18 mg/3 1.8 mg subcut DAILY 04/21/20 08/24/22 mL) subcutaneous pen injector donepezil 5 mg tablet 5 mg PO BEDTIME 11/06/20 08/24/22 insulin glargine 100 unit/mL (3 54 unit subcut BEDTIME 01/05/21 08/24/22 mL) subcutaneous pen buspirone 15 mg tablet 1 tab PO BID 11/11/21 08/24/22 ipratropium bromide 21 mcg (0.03 2 spray intranasal BID 11/11/21 08/24/22 %) nasal spray ketoconazole 2 % shampoo 1 appl topical 2XW 11/11/21 08/24/22 lidocaine 4 % topical patch 1 patch topical DAILY PRN Pain 11/11/21 08/24/22 vibegron 75 mg tablet (Gemtesa) 75 mg PO DAILY 11/11/21 08/24/22 Oxygen Home Use 01/18/22 08/24/22 meloxicam 15 mg tablet 15 mg PO DAILY 02/23/22 08/24/22 acetaminophen 500 mg tablet 650 mg PO Q6H PRN fever or pain 02/28/22 08/24/22 (Tylenol Extra Strength) atorvastatin 80 mg tablet 80 mg PO DAILY 03/11/22 08/24/22 pregabalin 150 mg capsule 150 mg PO DAILY 03/11/22 08/24/22 insulin aspart U-100 100 unit/mL 10 - 18 sliding scale dose subcut 06/10/22 08/24/22 (3 mL) subcutaneous pen QIDACHS lorazepam 1 mg tablet 1 mg PO DAILY PRN 08/03/22 08/24/22 gabapentin 100 mg capsule 100 mg PO BID 08/24/22 08/24/22 gabapentin 300 mg capsule 100 mg PO BID 08/24/22 08/24/22 rivaroxaban 20 mg tablet (Xarelto) 20 mg PO DAILY 08/24/22 08/24/22 trazodone 50 mg tablet 25 mg PO BEDTIME PRN 08/24/22 08/24/22 blood sugar diagnostic (FreeStyle 09/09/22 Lite Strips) blood-glucose meter (FreeStyle 09/09/22 Lite Meter kit) lancets 28 gauge (FreeStyle 09/09/22 Lancets) montelukast 10 mg tablet 10 mg PO DAILY 09/09/22 aripiprazole 5 mg tablet 5 mg PO DAILY 10/11/22 buspirone 30 mg tablet 30 mg PO BID 10/11/22 clonazepam 0.5 mg tablet 0.5 mg PO BID PRN anxiety 10/11/22 darifenacin 15 mg tablet,extended 15 mg PO DAILY 10/11/22 release 24 hr zolpidem 10 mg tablet 10 mg PO BEDTIME PRN 10/11/22 Previous Rx's Medication Instructions Recorded walker #1 ea 07/12/20 tiotropium bromide 2.5 2 puff inhalation DAILY 30 days #4 03/18/21 mcg/actuation mist for inhalation grams (Spiriva Respimat) lidocaine 5 % topical patch 1 patch topical DAILY 30 days #30 01/19/22 (Lidoderm) ea albuterol sulfate 90 mcg/actuation 2 puff PO QID #8.5 grams 02/04/22 aerosol inhaler nystatin 100,000 unit/gram topical 1 appl topical BID #30 grams 05/27/22 powder fluticasone fur. 200 mcg-umeclid 1 inh inhalation DAILY 30 days #60 08/03/22 62.5 mcg-vilant 25 mcg ea inhalat.powder (Trelegy Ellipta) glucagon 3 mg/actuation nasal 3 mg intranasal ONCE #2 ea 09/09/22 spray (Baqsimi) blood-glucose transmitter (Dexcom #1 ea 09/12/22 G6 Transmitter device) diabetic shoes #1 ea 09/12/22 roflumilast 250 mcg tablet 250 mcg PO DAILY #30 tabs 09/27/22 blood-glucose meter,continuous #1 ea 11/29/22 (Dexcom G7 Industrial Maintenance Mechanic) blood-glucose sensor (Dexcom G7 #3 ea 12/05/22 Sensor device) pen needle, diabetic 31 gauge x #100 ea 12/05/2207/19 (Easy Comfort Pen [place]) tramadol 50 mg tablet 50 mg PO Q6H PRN severe pain 12/23/22 (scale score 7-10) #12 tabs Allergies Allergy/AdvReac Type Severity Reaction Status Date / Time aspirin [ASPIRIN] Allergy Intermediate GI UPSET, Verified 12/23/22 11:30 stomach pain latex [LATEX] Allergy Intermediate HIVES Verified 12/23/22 11:30 Review of Systems Constitutional: Constitutional: Denies chills, Denies fever(s), Denies frequent falls and Reports headache(s) Eyes: Eyes: Denies blurry vision ENT: Reports headache(s) Cardiovascular: Cardiovascular: Denies chest pain, Denies syncope and Denies dyspnea Respiratory: Respiratory: Denies cough and Denies dyspnea Gastrointestinal: Gastrointestinal: Denies abdominal pain, Denies nausea and Denies vomiting Musculoskeletal: Musculoskeletal: Reports back pain, Reports arthralgias and Reports radiating pain into limb Integumentary/Breasts: Skin/Breast: Denies rash Neurologic: Denies syncope, Denies frequent falls and Reports headache(s) [facility] Past Medical History Medical History Acute on chronic respiratory failure with hypoxia and hypercapnia Acute respiratory failure Arnold-Chiari malformation Arthritis Asthma Asthma-COPD overlap syndrome Back pain Cardiomegaly Chest crackles Chronic respiratory failure Cough Diabetes DVT (deep venous thrombosis) Fibromyalgia [place] (hard of hearing) Hyperlipidemia Hypertension Morbid obesity CASSANDRA treated with BiPAP Pneumonia PONV (postoperative nausea and vomiting) Post herpetic neuralgia Pulmonary emboli Pulmonary hypertension Sinusitis Surgical History H/O bilateral breast reduction surgery H/O brain surgery H/O colonoscopy History of esophagogastroduodenoscopy (EGD) Hx of eye surgery Hx of laparoscopic gastric banding Family History Family History Mother HTN (hypertension) Breast cancer Father Primary cancer of bone marrow Social History Social History Household Members: Other Household Members Other:: granddaughter Housing: Apartment Are you a primary care transport nurse to a significant other at home: No Do you presently have visiting nurse or other home services: Yes (BUSINESS PLANNING DIRECTOR) Alcohol intake: never Patient Tobacco Use Status: Former Tobacco user Quit Date: Tobacco use type: Cigarette Years Smoked: 15 +/- Smoked in Last 30 Days: No Use of substances other than those prescribed or required for medical reasons: No Advance Directives: Yes Advance Directives on File: Yes Advance Directives Date on File: 11/11/21 Physical Exam ED Vital Signs: Vital Signs - 24 hr 12/23/22 11:32 12/23/22 20:01 Temperature 98 F 98.3 F Pulse Rate 98 100 Respiratory Rate 19 16 Blood Pressure 115/79 138/78 Pulse Oximetry 96 94 Oxygen Delivery Method Nasal Cannula Nasal Cannula Oxygen Flow Rate 2 BMI result Body Mass Index 39.1 Const General: healthy appearing, comfortable, no acute distress, alert and awake Nutritional Appearance: well nourished Orientation/consciousness: patient oriented x3 HENMT Other: Patient has small abrasion to the left temporal region, no lacerations or bleeding Eyes Eyelids: Yes eyelids normal Conjunctivae: conjunctivae normal Sclerae: sclerae normal Corneas: corneas normal Pupils: Equal, round and reactive pupils present EOM: EOMs intact bilaterally Neck Neck: Yes full ROM Resp Effort & Inspection: normal respiratory effort, able to speak in complete sen tences and not labored Cardio Rate: regular rate Rhythm: regular rhythm GI Inspection: No distended Palpation (GI): Soft to palpation, not firm, nontender, no guarding and not rigid Skin General skin exam: no rashes or lesions noted and elasticity normal Neuro General: patient oriented x3 Cranial nerves: Yes Equal, round and reactive pupils present and Yes Bilaterally intact EOM present Cognition (Neuro): normal cognition Extrem Other: Patient has mild left hip tenderness with no deformity visual or palpable. She also has mild left lumbar paraspinous muscle tenderness.. Negative straight leg raise Course Course Course Narrative: RME performed by Brook Bailey PA-C. Patient is a 72 year old assigned female at presenting to the emergency department with a headache and left sided pain after a mechanical fall. Imaging ordered. Patient placed back in the waiting room pending room availability and results. Medications Administered Discontinued Medications Generic Name Dose Route Start Last Admin Trade Name Freq PRN Reason Stop Dose Admin Tramadol HCl 50 mg 12/23/22 19:57 12/23/22 20:42 Tramadol Hcl 50 Mg Tablet PO 12/23/22 19:58 50 mg ONCE ONE Administration Medical Decision Making Medical Decision Making MDM Narrative: 72-year-old female presents for evaluation after a fall. Her CT scan of the head and cervical spine were negative for traumatic injury. I discussed the patient that we should get x-rays of her left hip and lumbar spine given she also has pain in this area, she declines this time as she does not want to wait any longer. She also declines labs to check renal function is CPK given that she spent 2 hours on the ground. However, the patient's vital signs are stable and she appears quite well, so she will follow-up with PCP Differential Diagnosis Differential Diagnoses: The differential diagnosis associated with the presentation includes Mechanical fall Left hip pain Bursitis Hip fracture Intracranial hemorrhage Cervical fracture Muscle spasm Lab Data Labs: Lab Results 12/23/22 Range/Units 19:55 POC Glucose 326 H (60-115) mg/dL Radiology Impression Discussion of test interpretation with radiology: I have reviewed the radiologist's reading. Radiologist Impression: No acute traumatic injury of the cervical spine or head CT Discharge Plan Discharge Clinical Impression: Minor closed head injury, Acute pain of left hip Patient Disposition: Home, Self-Care Instructions: Head Injury (ED) Additional Instructions: Your CT scan showed no evidence of traumatic injury Use Tylenol as needed for pain. Use tramadol for more severe breakthrough pain Follow-up with your doctor if you are still having left hip or back pain for x- rays as you declined these today Return for new or worsening symptoms Prescriptions: New tramadol 50 mg tablet 50 mg PO Q6H PRN (Reason: severe pain (scale score 7-10)) Qty: 12 0RF No Action lidocaine [Lidoderm] 5 % adhesive patch,medicated 1 patch topical DAILY 30 Days Qty: 30 4RF Rx Instructions: leave on most painful area for up to 12 hrs albuterol sulfate 90 mcg/actuation HFA aerosol inhaler 2 puff PO QID Qty: 8.5 11RF (DME) Dexcom G6 Transmitter Device See Rx Instructions .Route Qty: 1 0RF Rx Instructions: As directed (DME) diabetic shoes See Rx Instructions .ROUTE .MEDSUPPLY Qty: 1 0RF Rx Instructions: extra depth orthopedic shoes ( 1 pair ) with customize heat molded multi density inner soles ( 3 pair) Dispense 1 Sig: As directed DX: And IDDM /polyneuropathy ( E11 0.42 ); hammertoe foot deformity ( M 20.41, and 20.42 ) pre ulcerative skin lesion ( L 85.1 ) Diagnosis ( E11 0.42 ) type 2 diabetes with polyneuropathy roflumilast 250 mcg tablet 250 mcg PO DAILY Qty: 30 0RF (DME) Dexcom G7 Industrial Maintenance Mechanic Misc See Rx Instructions .Route Qty: 1 0RF Rx Instructions: As directed ([facility] [place]) Dexcom G7 Sensor Device See Rx Instructions .Route Qty: 3 4RF Rx Instructions: As directed change every 10 days ([facility] [place]) pen needle, diabetic [Easy Comfort Pen [place]] 31 gauge x 5/16 needle See Rx Instructions .Route Qty: 100 4RF Rx Instructions: As directed inject 4 times a day ([facility] [place]) walker Misc See Rx Instructions .ROUTE .MEDSUPPLY Qty: 1 0RF Rx Instructions: As directed ketoconazole 2 % shampoo 1 appl topical 2XW ipratropium bromide 21 mcg (0.03 %) spray,non-aerosol 2 spray intranasal BID buspirone 15 mg tablet 1 tab PO BID Gemtesa 75 mg tablet 75 mg PO DAILY lidocaine 4 % Adhesive Patch,Medicated 1 patch TOPICAL DAILY PRN (Reason: Pain) acetaminophen [Tylenol Extra Strength] 500 mg tablet 650 mg PO Q6H PRN (Reason: fever or pain) meloxicam 15 mg Tablet 15 mg PO DAILY gabapentin 300 mg capsule 100 mg PO BID nystatin 100,000 unit/gram powder 1 appl topical BID Qty: 30 0RF duloxetine 60 mg capsule,delayed release(DR/EC) 60 mg PO DAILY ibuprofen 600 mg tablet 600 mg PO TID PRN (Reason: Pain) lisinopril 10 mg tablet 10 mg PO DAILY liraglutide 0.6 mg/0.1 mL (18 mg/3 mL) pen injector 1.8 mg subcut DAILY insulin glargine 100 unit/mL (3 mL) insulin pen 54 unit subcut BEDTIME insulin aspart U-100 100 unit/mL (3 mL) insulin pen 10 - 18 sliding scale dose subcut QIDACHS Protocol: Insulin Correction Scale Less than or equal to 110 ---- Give (units): 0 111 to 150 Give (units): 0 151 to 200 Give (units): 2 201 to 250 Give (units): 4 251 to 300 Give (units): 6 301 to 350 Give (units): 8 Greater than 350 Give (units): 10 Call MD if Blood Glucose > : 350 Rx Instructions: 10-18 units donepezil 5 mg tablet 5 mg PO BEDTIME Spiriva Respimat 2.5 mcg/actuation mist 2 puff inhalation DAILY 30 Days Qty: 4 11RF (DME) Oxygen Home Use Kit See Rx Instructions .Route Rx Instructions: As directed pregabalin 150 mg capsule 150 mg PO DAILY atorvastatin 80 mg tablet 80 mg PO DAILY (DME) blood-glucose meter [FreeStyle Lite Meter] Kit See Rx Instructions .Route Rx Instructions: As directed (DME) FreeStyle Lite Strips Strip See Rx Instructions .Route Rx Instructions: As directed (DME) lancets [FreeStyle Lancets] 28 gauge misc See Rx Instructions .Route Rx Instructions: As directed montelukast 10 mg tablet 10 mg PO DAILY Baqsimi 3 mg/actuation spray,non-aerosol 3 mg intranasal ONCE Qty: 2 0RF lorazepam 1 mg tablet 1 mg PO DAILY PRN Trelegy Ellipta 200-62.5-25 mcg blister with device 1 inh inhalation DAILY 30 Days Qty: 60 12RF aripiprazole 5 mg tablet 5 mg PO DAILY zolpidem 10 mg tablet 10 mg PO BEDTIME PRN darifenacin 15 mg tablet extended release 24 hr 15 mg PO DAILY buspirone 30 mg tablet 30 mg PO BID clonazepam 0.5 mg tablet 0.5 mg PO BID PRN (Reason: anxiety) gabapentin 100 mg capsule 100 mg PO BID Xarelto 20 mg tablet 20 mg PO DAILY trazodone 50 mg tablet 25 mg PO BEDTIME PRN Interventions: ED Discharge Assessment Last Done: 12/23/22 20:48 Discharge Date/Time: 12/23/22 20:50
[2022-12-23 11:32] VITALS: BP 115/79; PULSE 98; RESP 19; TEMP 36.6; O2SAT 96; BMI 39.1
[2022-12-23 20:01] VITALS: BP 138/78; PULSE 100; RESP 16; TEMP 36.8; O2SAT 94
[2022-12-23 20:03] LABS: Glucose, Whole Blood 326 mg/dL (60-115)
[2022-12-23] MEDS: traMADoL HCL 50 MG TABLET PO (20:42)
== END 2022-12-23 20:50 | disposition home or self-care (01) ==
PROVIDERS: Emergency Provider Emergency Medicine
DX: S09.90XA Unspecified injury of head, initial encounter (principal); M25.552 Pain in left hip; R51.9 Headache, unspecified; M54.2 Cervicalgia; W18.30XA Fall on same level, unspecified, initial encounter; Y93.9 Activity, unspecified; Y92.9 Unspecified place or not applicable; Y99.9 Unspecified external cause status; Z79.899 Other long term (current) drug therapy
CPT/HCPCS: 70450; 72125; 82947; 99284

== ENCOUNTER 2022-12-27 11:34 | Outpatient (AMB) | payer OTHER, SELFPAY ==
--- NOTE | 2022-12-27 11:51 | MHC.AMNUTRGE ---
Intake VS Expanded 12/27/22 12:16 Height 5 ft Weight 212 lb 8.41 oz BMI 41.5 Intake Visit Reasons: DM/lvm Allergies aspirin [ASPIRIN] Allergy (Intermediate, Verified 12/23/22 11:30) GI UPSET, stomach pain latex [LATEX] Allergy (Intermediate, Verified 12/23/22 11:30) HIVES HPI Nutrition Presentation Details Pt presents for MNT for T2DM. Pt is accompanied by her FRACTIONATION PLANT SUPERVISOR Pt reports reducing on protein foods, d/t dislikes and working on vegetarian meals Pt also reports taking insulin on a sliding scale according to post prandial blood glucose. Pt reports her sliding scale is as follows: For BG 80-150- takes 8 units for BG 151-200 takes 22 units for BG 201- 250 takes 26 units Pt reports taking Lantus 54 units/d (at night time). Per glucometer 14 d bg average at 182 mg/dl, 1 % low, 2% very low ( these are overnight hypoglycemia), 56% in range, 24 % high and 17 % very high Typical meal intake B: 2 eggs, toast and coffee/milk diet sugar 1pm: chicken/vegetables/potato 5-6 pm : same as lunch snack : chips, crackers, Physical activity : walks with walker Most Recent Diabetes Results: No Data to Display PFSH Medical History Acute on chronic respiratory failure with hypoxia and hypercapnia Acute respiratory failure Arnold-Chiari malformation Arthritis Asthma Asthma-COPD overlap syndrome Back pain Cardiomegaly Chest crackles Chronic respiratory failure Cough Diabetes DVT (deep venous thrombosis) Fibromyalgia [place] (hard of hearing) Hyperlipidemia Hypertension Morbid obesity CASSANDRA treated with BiPAP Pneumonia PONV (postoperative nausea and vomiting) Post herpetic neuralgia Pulmonary emboli Pulmonary hypertension Sinusitis Surgical History H/O bilateral breast reduction surgery H/O brain surgery H/O colonoscopy History of esophagogastroduodenoscopy (EGD) Hx of eye surgery Hx of laparoscopic gastric banding Family History Mother HTN (hypertension) Breast cancer Father Primary cancer of bone marrow Social History Household Members: Other Household Members Other:: granddaughter Housing: Apartment Are you a primary career development associate to a significant other at home: No Do you presently have visiting nurse or other home services: Yes (FRACTIONATION PLANT SUPERVISOR) Alcohol intake: never Patient Tobacco Use Status: Former Tobacco user Quit Date: Tobacco use type: Cigarette Years Smoked: 15 +/- Advance Directives Date on File: 11/11/21 Assessment & Plan Assessment & Plan (1) Diabetes: Code(s): E11.9 - Type 2 diabetes mellitus without complications Plan: Educate Pt on vegetarian food choices as per request, importance of taking aspart insulin according to blood sugar level before the meal as prescribed by the doctor and As per Dr. Arambula, Pt to reduce Lantus to 45 units to prevent noctural hypoglycemia and to take aspart insulin according to blood glucose level prior to eating . Pt was notified and verbalized understanding this. ?Used wt : 100 kg Est kcal as per MSJ: 1738 (40% carb, 30% fat/prot) Est fluid needs: 2500 ml/d (25 ml/kg bw) Rec fiber: increase to 8-10 g per day and gradually increase to 25 g/d as tolerated Rec Na: < 2000 mg /d Educate patient on: (R= Reviewed, V = verbalizes understanding N/R= Needs review N/A= not applicable) Food sources of carbohydrates and serving adequate serving sizes : R Difference between complex carbohydrates and simple carbohydrates, role of fiber: N/R Differences between fats (MUFA/PUFA/saturated fats, trans fats) and food sources of various fats: N/R Lean protein sources of foods: R Food sources of sodium and salt and healthy modifications for heart health and kidney health: R Vitamins and minerals: N/R How to interpret food labels: R Healthy Plate method concept: R V Physical activity: benefits and precaution: N/R Patient Instructions: See meal plan of vegetarian food choices and adequate food portion sizes (2645-1616 cristina meal plan) per Dr. Arambula recommendations: Reduce Lantus to 45 units (from 54 units) to prevent low blood sugar overnight, take aspart/novolog insulin according to blood sugar before the meal and not according to blood sugar after the meal. (according to current sliding scale: For BG 80-150- takes 8 units for BG 151-200 takes 22 units for BG 201- 250 takes 26 units ) Keep appointment with Lissy, nurse informatics educator in Jan, bring all your medications to this appointment for review. Coding Level of Care Code Nutr Indiv Subseq (23545) Diagnoses Diabetes E11.9 Time Spent (min) 30
[2022-12-27 12:16] VITALS: BMI 41.5
== END 2022-12-27 14:02 | disposition home or self-care (01) ==
PROVIDERS: PCP Internal Medicine; Visit Provider Dietitian, Registered
DX: E11.9 Type 2 diabetes mellitus without complications (principal)

== ENCOUNTER → 2022-12-27 11:34 | Outpatient (BNVA) | payer OTHER, SELFPAY | PROVIDERS: PCP Internal Medicine; Visit Provider Dietitian, Registered | DX: E11.9 Type 2 diabetes mellitus without complications (principal) | CPT/HCPCS: 97803 ==

== ENCOUNTER 2023-01-16 12:51 | Outpatient (AMB) | payer OTHER, SELFPAY ==
--- NOTE | 2023-01-16 13:33 | A.OFFVIS_ITS ---
Intake Intake Visit Reasons: DM-LVM Sample Paster Required: No Accompanied by: Other Relationship Allergies aspirin [ASPIRIN] Allergy (Intermediate, Verified 12/23/22 11:30) GI UPSET, stomach pain latex [LATEX] Allergy (Intermediate, Verified 12/23/22 11:30) HIVES HPI Comprehensive Diabetes Asmnt Most Recent Diabetes Results: Microalb/Creat Ratio 16.5 ug/mg cr 09/01/22 Cholesterol 155 mg/dL 09/01/22 HDL Cholesterol 61 mg/dL 09/01/22 Triglycerides 89 mg/dL 09/01/22 Creatinine 0.79 mg/dL (0.5-1.4) 06/09/22 Blood Urea Nitrogen 24 mg/dL (9-16) H 06/09/22 Sodium 142 mmol/L (135-145) 06/09/22 Potassium 4.3 mmol/L (3.3-5.1) 06/09/22 Chloride 108 mmol/L (96-108) 06/09/22 Carbon Dioxide 24 mmol/L (22-29) 06/09/22 Calcium 9.1 mg/dL (8.4-10.2) 06/09/22 AST 26 U/L (5-31) 06/09/22 ALT 18 U/L (0-31) 06/09/22 Total Protein 5.9 g/dL (6.5-8.0) L 06/09/22 Albumin 3.4 g/dL (3.5-5.0) L 06/09/22 PFSH Medical History Acute on chronic respiratory failure with hypoxia and hypercapnia Acute respiratory failure Arnold-Chiari malformation Arthritis Asthma Asthma-COPD overlap syndrome Back pain Cardiomegaly Chest crackles Chronic respiratory failure Cough Diabetes DVT (deep venous thrombosis) Fibromyalgia [place] (hard of hearing) Hyperlipidemia Hypertension Morbid obesity CASSANDRA treated with BiPAP Pneumonia PONV (postoperative nausea and vomiting) Post herpetic neuralgia Pulmonary emboli Pulmonary hypertension Sinusitis Surgical History H/O bilateral breast reduction surgery H/O brain surgery H/O colonoscopy History of esophagogastroduodenoscopy (EGD) Hx of eye surgery Hx of laparoscopic gastric banding Family History Mother HTN (hypertension) Breast cancer Father Primary cancer of bone marrow Social History Household Members: Other Household Members Other:: granddaughter Housing: Apartment Are you a primary child care leader to a significant other at home: No Do you presently have 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 The patient met all learning objectives and was able to verbalize understanding and provide teach back of education topics discussed . The patient was provided with the opportunity to ask questions and all questions were answered. Patient Assessment Assess patient education level/literacy/barriers Patient questions/concerns, patient reports if she is interested in obtaining insulin pump. Explained to patient that when using insulin pump therapy, you have to be aware the amount of carbohydrate eating. Patient also reports she uses sliding scale, that does not med sliding scale in patient's chart Patient provided sliding scale NovoLo-200 mg/dL patient takes 10 units 201-300 mg/dL patient takes 20 units 301 to 400 mg/dL patient takes 24 to 26 units Patient is asking for guidance on sliding scale. Explained to patient need to see patient's sensor data in order to get a better idea about how current insulin plan is work Patient states she occasionally experiences hypoglycemia, reviewed with patient how to treat hypoglycemia with rule of 15s Handout given Brief overview of Diabetes Management Monitoring blood sugar Following a meal plan Regular exercise Maintaining a healthy weight Taking medication as needed Members of the care team (PCP, RN, MA, RD, CDE, license and permit specialist) Blood glucose monitoring When/how often to test Target blood sugar ranges Patient did not bring meter to today's visit Introduction to Nutrition Importance of healthy diet in managing DM Diet is personalized to individual preference Review patient?s regular diet/food preferences Who prepares meals/does food shopping/ Dining out?/ Barriers? How diet effects glucose Eating 3 balanced meals a day with small, healthy snacks between meals Review food groups Carbohydrates: What is a carbohydrate/Which food/food groups are considered carbohydrates Effect of carbohydrates on blood glucose Portion sizes Reading food labels Basic carb counting (if applicable per nursing assessment) Plate method Meal planning Recommendations: Follow plate method, consistent carbs and read nutritional labels. Smart Goal: Patient will start calculating carbohydrates and mealtime, keeping meals 30-45 g of carb Educational Materials: The patient was provided with the following written educational materials: Planning Healthy Meals Handout Patient Response to instructions: Comprehension of Instructions: Fair Readiness to make changes: Contemplation How confident they feel about making changes: fair Coding Level of Care Code Tele Est Pt Level 1 (25153) Diagnoses Diabetes E11.9
== END 2023-01-16 13:36 | disposition home or self-care (01) ==
PROVIDERS: PCP Internal Medicine; Visit Provider Registered Nurse Diabetes Educator
DX: E11.9 Type 2 diabetes mellitus without complications (principal)
CPT/HCPCS: 99211

== ENCOUNTER 2023-01-16 15:24 | Outpatient (REF) | payer OTHER, SELFPAY ==
--- NOTE | ~2023-01-16 | MM_ITS ---
EXAMINATION: MM SCREENING DIGITAL BREAST TOMOSYNTHESIS, BILATERAL CLINICAL INFORMATION: Screening. Asymptomatic. The patient is status post bilateral breast reduction. COMPARISON: Mammography: This study is compared with prior exams dating back to 2013. TECHNIQUE: Digital breast tomosynthesis is performed in both the craniocaudal and mediolateral oblique views along with computer-aided detection (CAD). Synthesized 2D images are generated from the tomosynthesis. FINDINGS: The breasts are almost entirely fatty (ACR BI-RADS breast composition Category a). There are no significant masses, abnormal calcifications, or other abnormalities. There are post reduction changes which include areas of retroareolar fat necrosis represented by dense areas of nodular calcification in the retroareolar regions of each breast. MM/MM tomosynthesis screening BI IMPRESSION: No mammographic evidence of malignancy. ASSESSMENT: BI-RADS BI-RADS 2 - Benign Findings RECOMMENDATION: Routine annual mammography screening. 1 year F/U This examination should not preclude the clinical evaluation of a suspicious palpable abnormality. This patient's information was entered into a reminder system with a target due date for their next mammogram.
== END 2023-01-16 15:25 | disposition home or self-care (01) ==
LOC: HO.MAMMO 15:24
PROVIDERS: PCP Internal Medicine; Visit Provider Internal Medicine
DX: Z12.31 Encounter for screening mammogram for malignant neoplasm of breast (principal)
CPT/HCPCS: 77063; 77067

== ENCOUNTER → 2023-01-16 15:30 | Outpatient (BNV) | payer OTHER, SELFPAY | PROVIDERS: PCP Internal Medicine; Visit Provider Radiology Diagnostic Radiology | DX: Z12.31 Encounter for screening mammogram for malignant neoplasm of breast (principal) | CPT/HCPCS: 77063; 77067 ==

== ENCOUNTER 2023-01-17 20:22 | Emergency (ER) | payer OTHER, SELFPAY ==
--- NOTE | ~2023-01-17 | XR_ITS ---
EXAMINATION: CHEST, LEFT SHOULDER, PELVIS AND LEFT HIP CLINICAL INFORMATION: Pain after fall COMPARISON: Chest radiograph 03/01/2022, CT chest 03/11/2021 TECHNIQUE: Single view chest, 3 views left shoulder, single view pelvis with 2 additional views left hip. FINDINGS: Chest: The heart is enlarged. There is no evidence of CHF. Right basilar atelectasis is present. No pleural effusions. No acute rib fractures are seen. There is an old healed rib fracture of the left third posterolateral rib. Pelvis and left hip: No acute fractures are seen. Degenerative changes are visualized in the lower lumbosacral spine. No bony destructive lesions. Left shoulder: Some mild degenerative changes are present at the glenohumeral joint as well as the AC joint. No acute fractures or dislocations. XR/XR chest 1V IMPRESSION: 1. Cardiomegaly without CHF. 2. No acute intrathoracic disease. 3. No acute fractures are seen. 4. Degenerative changes in the left shoulder.
--- NOTE | ~2023-01-17 | XR_ITS ---
EXAMINATION: CHEST, LEFT SHOULDER, PELVIS AND LEFT HIP CLINICAL INFORMATION: Pain after fall COMPARISON: Chest radiograph 03/01/2022, CT chest 03/11/2021 TECHNIQUE: Single view chest, 3 views left shoulder, single view pelvis with 2 additional views left hip. FINDINGS: Chest: The heart is enlarged. There is no evidence of CHF. Right basilar atelectasis is present. No pleural effusions. No acute rib fractures are seen. There is an old healed rib fracture of the left third posterolateral rib. Pelvis and left hip: No acute fractures are seen. Degenerative changes are visualized in the lower lumbosacral spine. No bony destructive lesions. Left shoulder: Some mild degenerative changes are present at the glenohumeral joint as well as the AC joint. No acute fractures or dislocations. XR/XR hip LT w PEL1V IMPRESSION: 1. Cardiomegaly without CHF. 2. No acute intrathoracic disease. 3. No acute fractures are seen. 4. Degenerative changes in the left shoulder.
--- NOTE | ~2023-01-17 | CT_ITS ---
EXAMINATION: CT PELVIS WITHOUT CONTRAST CLINICAL INFORMATION: Pain. COMPARISON: None available. TECHNIQUE: Helical scanning was performed with submillimeter collimation through the pelvis. Sagittal and coronal multiplanar 2-D reconstructions were obtained. This CT examination was performed using dose optimization techniques as appropriate, variously including the following: *Automated exposure control *Adjustment of mA and/or kV according to patient size (this includes techniques or standardized protocols for targeted exams where dose is matched to indication/reason for exam; i.e. extremities or head) *Use of iterative reconstruction technique DLP: 789 mGy-cm FINDINGS: PELVIS: The urinary bladder is unremarkable. The uterus and adnexal regions are within normal limits. Retained colonic stool is noted. There is no free fluid within the pelvis. There is no pelvic mass. OSSEOUS STRUCTURES: There is moderate lumbar disc degenerative change with loss of disc space, endplate change and posterior osteophytes with grade 1 anterolisthesis L4 over L5. There is mild curvature of the lumbar spine convex to the left. There is also mild to moderate lower lumbar facet degenerative change. There appears to be moderate spinal canal narrowing at L4-L5. There is also severe right L4-L5 neuroforaminal narrowing and moderate neuroforaminal narrowing at the remaining levels. There is mild bilateral hip degenerative change with mild loss of joint space, mild subchondral sclerosis and mild osteophyte formation. There is no fracture CT/CT pelvis wo IV con IMPRESSION: No acute intra-abdominal process. Moderate lumbar disc degenerative change with mild curvature of the lumbar spine to the left and grade 1 anterolisthesis L4 over L5 as well as moderate apparent L4-L5 spinal canal narrowing. There is severe right L4-L5 spinal canal narrowing. Mild bilateral hip degenerative change. No acute osseous abnormality.
--- NOTE | ~2023-01-17 | XR_ITS ---
EXAMINATION: CHEST, LEFT SHOULDER, PELVIS AND LEFT HIP CLINICAL INFORMATION: Pain after fall COMPARISON: Chest radiograph 03/01/2022, CT chest 03/11/2021 TECHNIQUE: Single view chest, 3 views left shoulder, single view pelvis with 2 additional views left hip. FINDINGS: Chest: The heart is enlarged. There is no evidence of CHF. Right basilar atelectasis is present. No pleural effusions. No acute rib fractures are seen. There is an old healed rib fracture of the left third posterolateral rib. Pelvis and left hip: No acute fractures are seen. Degenerative changes are visualized in the lower lumbosacral spine. No bony destructive lesions. Left shoulder: Some mild degenerative changes are present at the glenohumeral joint as well as the AC joint. No acute fractures or dislocations. XR/XR shoulder LT min 2V IMPRESSION: 1. Cardiomegaly without CHF. 2. No acute intrathoracic disease. 3. No acute fractures are seen. 4. Degenerative changes in the left shoulder.
[2023-01-17 20:31] VITALS: BP 130/56; BP 144/88; PULSE 106; PULSE 97; RESP 18; TEMP 36.8; O2SAT 94; O2SAT 99; BMI 42.7
--- NOTE | 2023-01-17 21:00 | ED.GENADULT ---
HPI - General Adult General Chief complaint: Fall Stated complaint: UNWIT FALL, LOWER L EXTREMITY PAIN,-LOC Time Seen by Provider: 01/17/23 20:35 History of Present Illness HPI narrative: 72 y/o F patient; PMH restrictive lung disease, hx c. diff, pulmonary HTN, hx DVT and PE, CASSANDRA on bipap, T2DM; presents from home via EMS with report of unwitnessed fall this morning while using her walker to go to the bathroom. The patient states she was turning to use the toilet when she fell. She denies LOC or head strike. She primarily complains of left lower extremity pain. She has ambulated since the event but states it was uncomfortable. Family at bedside reporting patient has had total of 4 falls (including this one) within the last 2 weeks. When asked patient why, she reports she is clumsy. On last visit 12/23/[address] patient had an unremarkable CT Head/Neck, she requested to leave prior to lab work or XRs. Patient was also seen by her PCP and family reports they were told her falls were 2/2 to weakness and neuropathy. They report last blood work was at this hospital in 06/2022. Related Data Home Medications Medication Instructions Recorded Confirmed duloxetine 60 mg capsule,delayed 60 mg PO DAILY 02/06/20 08/24/22 release ibuprofen 600 mg tablet 600 mg PO TID PRN Pain 02/06/20 08/24/22 lisinopril 10 mg tablet 10 mg PO DAILY 02/06/20 08/24/22 liraglutide 0.6 mg/0.1 mL (18 mg/3 1.8 mg subcut DAILY 04/21/20 08/24/22 mL) subcutaneous pen injector donepezil 5 mg tablet 5 mg PO BEDTIME 11/06/20 08/24/22 insulin glargine 100 unit/mL (3 54 unit subcut BEDTIME 01/05/21 08/24/22 mL) subcutaneous pen buspirone 15 mg tablet 1 tab PO BID 11/11/21 08/24/22 ipratropium bromide 21 mcg (0.03 2 spray intranasal BID 11/11/21 08/24/22 %) nasal spray ketoconazole 2 % shampoo 1 appl topical 2XW 11/11/21 08/24/22 lidocaine 4 % topical patch 1 patch topical DAILY PRN Pain 11/11/21 08/24/22 vibegron 75 mg tablet (Gemtesa) 75 mg PO DAILY 11/11/21 08/24/22 Oxygen Home Use 01/18/22 08/24/22 meloxicam 15 mg tablet 15 mg PO DAILY 02/23/22 08/24/22 acetaminophen 500 mg tablet 650 mg PO Q6H PRN fever or pain 02/28/22 08/24/22 (Tylenol Extra Strength) atorvastatin 80 mg tablet 80 mg PO DAILY 03/11/22 08/24/22 pregabalin 150 mg capsule 150 mg PO DAILY 03/11/22 08/24/22 insulin aspart U-100 100 unit/mL 10 - 18 sliding scale dose subcut 06/10/22 08/24/22 (3 mL) subcutaneous pen QIDACHS lorazepam 1 mg tablet 1 mg PO DAILY PRN 08/03/22 08/24/22 gabapentin 100 mg capsule 100 mg PO BID 08/24/22 08/24/22 gabapentin 300 mg capsule 100 mg PO BID 08/24/22 08/24/22 rivaroxaban 20 mg tablet (Xarelto) 20 mg PO DAILY 08/24/22 08/24/22 trazodone 50 mg tablet 25 mg PO BEDTIME PRN 08/24/22 08/24/22 blood sugar diagnostic ([facility] Lite Strips) blood-glucose meter ([facility] Lite Meter kit) lancets 28 gauge ([facility]) montelukast 10 mg tablet 10 mg PO DAILY 09/09/22 aripiprazole 5 mg tablet 5 mg PO DAILY 10/11/22 buspirone 30 mg tablet 30 mg PO BID 10/11/22 clonazepam 0.5 mg tablet 0.5 mg PO BID PRN anxiety 10/11/22 darifenacin 15 mg tablet,extended 15 mg PO DAILY 10/11/22 release 24 hr zolpidem 10 mg tablet 10 mg PO BEDTIME PRN 10/11/22 Previous Rx's Medication Instructions Recorded walker #1 ea 07/12/20 tiotropium bromide 2.5 2 puff inhalation DAILY 30 days #4 03/18/21 mcg/actuation mist for inhalation grams (Spiriva Respimat) lidocaine 5 % topical patch 1 patch topical DAILY 30 days #30 01/19/22 (Lidoderm) ea albuterol sulfate 90 mcg/actuation 2 puff PO QID #8.5 grams 02/04/22 aerosol inhaler nystatin 100,000 unit/gram topical 1 appl topical BID #30 grams 05/27/22 powder fluticasone fur. 200 mcg-umeclid 1 inh inhalation DAILY 30 days #60 08/03/22 62.5 mcg-vilant 25 mcg ea inhalat.powder (Trelegy Ellipta) glucagon 3 mg/actuation nasal 3 mg intranasal ONCE #2 ea 09/09/22 spray (Baqsimi) diabetic shoes #1 ea 09/12/22 roflumilast 250 mcg tablet 250 mcg PO DAILY #30 tabs 09/27/22 blood-glucose meter,continuous #1 ea 11/29/22 (Dexcom G7 Ammonia Still Operator) blood-glucose sensor (Dexcom G7 #3 ea 12/05/22 Sensor device) pen needle, diabetic 31 gauge x #100 ea 12/05/2207/19 (Easy Comfort Pen [place]) tramadol 50 mg tablet 50 mg PO Q6H PRN severe pain 12/23/22 (scale score 7-10) #12 tabs blood-glucose transmitter (Dexcom #1 ea 12/30/22 G6 Transmitter device) peg 3350-electrolytes 236 240 ml PO Q10M #4,000 mL 12/30/22 gram-22.74 gram-6.74 gram-5.86 gram solution Allergies Allergy/AdvReac Type Severity Reaction Status Date / Time aspirin [ASPIRIN] Allergy Intermediate GI UPSET, Verified 12/23/22 11:30 stomach pain latex [LATEX] Allergy Intermediate HIVES Verified 12/23/22 11:30 Review of Systems Review of Systems: Yes all other systems are reviewed and are negative Neurologic: Denies Sensory deficit (Neuro) PMFSH Past Medical History Attestation statement: The following information was validated with the patient. Source: old records reviewed Medical History DVT (deep venous thrombosis) Pulmonary hypertension Pulmonary emboli Acute on chronic respiratory failure with hypoxia and hypercapnia Chronic respiratory failure [place] (hard of hearing) PONV (postoperative nausea and vomiting) Post herpetic neuralgia Pneumonia Back pain Morbid obesity Chest crackles Cardiomegaly Asthma-COPD overlap syndrome Acute respiratory failure Hyperlipidemia Hypertension Diabetes Arnold-Chiari malformation Arthritis Fibromyalgia Cough CASSANDRA treated with BiPAP Asthma Sinusitis Surgical History Hx of eye surgery History of esophagogastroduodenoscopy (EGD) H/O colonoscopy Hx of laparoscopic gastric banding H/O bilateral breast reduction surgery H/O brain surgery Family History Family History Mother HTN (hypertension) Breast cancer Father Primary cancer of bone marrow Social History Social History Household Members: Other Household Members Other:: granddaughter Housing: Apartment Are you a primary wound care center consultant to a significant other at home: No 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 Const General: cooperative and no acute distress Orientation/consciousness: patient oriented x3 HENMT Head: Yes normal to inspection and Yes atraumatic Ears: external ears normal and TM's normal bilaterally General nose exam: Normal external nose present Face and sinus: Yes normal facial exam Eyes General: appearance normal, both eyes and all related structures Neck Neck: Yes normal visual inspection, Yes full ROM, Yes supple and No tender Chest Chest palpation & inspection: normal inspection of the chest Resp Effort & Inspection: normal respiratory effort and no respiratory distress Auscultation: clear to auscultation bilaterally Cardio Rate: regular rate Rhythm: regular rhythm GI Inspection: Yes normal to inspection Palpation (GI): Soft to palpation, nontender, no guarding and not rigid Auscultation: normal bowel sounds Back/Spine/Pelvis Back: No ecchymosis and No back tenderness Skin General skin exam: no ecchymosis and no erythema Neuro General: patient oriented x3, moves all extremities and no focal motor deficits Sensory Exam: No Sensory deficit (Neuro) Extrem Other: Left shoulder discomfort proximally, FROM, soft compartments, NVI. Left hip discomfort to postero-lateral aspect - skin intact. FROM. Soft compartments. NVI. Course Course Course Narrative: Patient is afebrile and hemodynamically stable. Will obtain pCXR, Left Shoulder XR, Left Hip w Pelvis XR. Provided tylenol for pain control. Discussed with family - given multiple recent falls - will obtain screening lab work and EKG. Plan: Transition care to oncoming physician pending diagnostic imaging, re-evaluation, and disposition Condition: Stable Discharge Plan Discharge Clinical Impression: Fall, Acute pain of left hip Patient Disposition: Still a Patient Prescriptions: No Action lidocaine [Lidoderm] 5 % adhesive patch,medicated 1 patch topical DAILY 30 Days Qty: 30 4RF Rx Instructions: leave on most painful area for up to 12 hrs albuterol sulfate 90 mcg/actuation HFA aerosol inhaler 2 puff PO QID Qty: 8.5 11RF (DME) diabetic shoes See Rx Instructions .ROUTE .MEDSUPPLY Qty: 1 0RF Rx Instructions: extra depth orthopedic shoes ( 1 pair ) with customize heat molded multi density inner soles ( 3 pair) Dispense 1 Sig: As directed DX: And IDDM /polyneuropathy ( E11 0.42 ); hammertoe foot deformity ( M 20.41, and 20.42 ) pre ulcerative skin lesion ( L 85.1 ) Diagnosis ( E11 0.42 ) type 2 diabetes with polyneuropathy roflumilast 250 mcg tablet 250 mcg PO DAILY Qty: 30 0RF (DME) Dexcom G7 Ammonia Still Operator Misc See Rx Instructions .Route Qty: 1 0RF Rx Instructions: As directed (DME) Dexcom G7 Sensor Device See Rx Instructions .Route Qty: 3 4RF Rx Instructions: As directed change every 10 days (DME) pen needle, diabetic [Easy Comfort Pen [place]] 31 gauge x 5/16 needle See Rx Instructions .Route Qty: 100 4RF Rx Instructions: As directed inject 4 times a day (DME) Dexcom G6 Transmitter Device See Rx Instructions .ROUTE .COMPLEX Qty: 1 0RF Dose Instruction: USE DIRECTED Rx Instructions: USE DIRECTED peg 3350-electrolytes 236-22.74-6.74 -5.86 gram recon soln 240 ml PO Q10M Qty: 4000 0RF Rx Instructions: Refer to prep instructions given/ mailed to you from GI OFFICE. until fecal effluent is clear (DME) walker [facility] See Rx Instructions .ROUTE .MEDSUPPLY Qty: 1 0RF Rx Instructions: As directed ketoconazole 2 % shampoo 1 appl topical 2XW ipratropium bromide 21 mcg (0.03 %) spray,non-aerosol 2 spray intranasal BID buspirone 15 mg tablet 1 tab PO BID Gemtesa 75 mg tablet 75 mg PO DAILY lidocaine 4 % Adhesive Patch,Medicated 1 patch TOPICAL DAILY PRN (Reason: Pain) acetaminophen [Tylenol Extra Strength] 500 mg tablet 650 mg PO Q6H PRN (Reason: fever or pain) meloxicam 15 mg Tablet 15 mg PO DAILY gabapentin 300 mg capsule 100 mg PO BID nystatin 100,000 unit/gram powder 1 appl topical BID Qty: 30 0RF tramadol 50 mg tablet 50 mg PO Q6H PRN (Reason: severe pain (scale score 7-10)) Qty: 12 0RF duloxetine 60 mg capsule,delayed release(DR/EC) 60 mg PO DAILY ibuprofen 600 mg tablet 600 mg PO TID PRN (Reason: Pain) lisinopril 10 mg tablet 10 mg PO DAILY liraglutide 0.6 mg/0.1 mL (18 mg/3 mL) pen injector 1.8 mg subcut DAILY insulin glargine 100 unit/mL (3 mL) insulin pen 54 unit subcut BEDTIME insulin aspart U-100 100 unit/mL (3 mL) insulin pen 10 - 18 sliding scale dose subcut QIDACHS Protocol: Insulin Correction Scale Less than or equal to 110 ---- Give (units): 0 111 to 150 Give (units): 0 151 to 200 Give (units): 2 201 to 250 Give (units): 4 251 to 300 Give (units): 6 301 to 350 Give (units): 8 Greater than 350 Give (units): 10 Call MD if Blood Glucose > : 350 Rx Instructions: 10-18 units donepezil 5 mg tablet 5 mg PO BEDTIME Spiriva Respimat 2.5 mcg/actuation mist 2 puff inhalation DAILY 30 Days Qty: 4 11RF (DME) Oxygen Home Use Kit See Rx Instructions .Route Rx Instructions: As directed pregabalin 150 mg capsule 150 mg PO DAILY atorvastatin 80 mg tablet 80 mg PO DAILY (DME) blood-glucose meter [FreeStyle Lite Meter] Kit See Rx Instructions .Route Rx Instructions: As directed (DME) FreeStyle Lite Strips Strip See Rx Instructions .Route Rx Instructions: As directed (DME) lancets [FreeStyle Lancets] 28 gauge misc See Rx Instructions .Route Rx Instructions: As directed montelukast 10 mg tablet 10 mg PO DAILY Baqsimi 3 mg/actuation spray,non-aerosol 3 mg intranasal ONCE Qty: 2 0RF lorazepam 1 mg tablet 1 mg PO DAILY PRN Trelegy Ellipta 200-62.5-25 mcg blister with device 1 inh inhalation DAILY 30 Days Qty: 60 12RF aripiprazole 5 mg tablet 5 mg PO DAILY zolpidem 10 mg tablet 10 mg PO BEDTIME PRN darifenacin 15 mg tablet extended release 24 hr 15 mg PO DAILY buspirone 30 mg tablet 30 mg PO BID clonazepam 0.5 mg tablet 0.5 mg PO BID PRN (Reason: anxiety) gabapentin 100 mg capsule 100 mg PO BID Xarelto 20 mg tablet 20 mg PO DAILY trazodone 50 mg tablet 25 mg PO BEDTIME PRN
[2023-01-17 21:52] VITALS: BP 109/65; PULSE 89; RESP 16; TEMP 36.7; O2SAT 95
--- NOTE | 2023-01-17 21:53 | ECG_ITS ---
Test Reason : FALL Blood Pressure : / mmHG Vent. Rate : 087 BPM Atrial Rate : 087 BPM P-R Int : 154 ms QRS Dur : 138 ms QT Int : 392 ms P-R-T Axes : 048 -23 045 degrees QTc Int : 471 ms Normal sinus rhythm Right bundle branch block Abnormal ECG When compared with ECG of 09-JUN-2022 10:51, No significant change was found Referred By: Mely Kebede Electronically Signed By:BJORN NORMAN MD
[2023-01-17] MEDS: Acetaminophen 325 MG TABLET 975 MG PO (22:46)
[2023-01-17 22:47] LABS: MANUAL DIFF FLAG NO
[2023-01-17 22:48] LABS: Basophils Percent Auto 0.3 % (0-2); Eosinophils Absolute Auto 0.1 X10*3/uL (0.0-0.4); Eosinophils Percent Auto 0.7 % (0-4); Hematocrit 33.6 % (37.0-47.0); Hemoglobin 10.9 g/dl (12.0-16.0); Imm Gran Abs Auto 0.04 X10*3/uL (0.00-0.03); Imm Gran Pct Auto 0.4 % (0.0-0.4); Lymphocytes Absolute Auto 2.8 X10*3/uL (1.2-4.9); Lymphocytes Percent Auto 30.4 % (20-40); Mean Corpuscular HGB Conc 32.4 g/dl (31.0-35.0); Mean Corpuscular Hemoglobin 29.6 pg (27.0-33.0); Mean Corpuscular Volume 91.3 fL (80.0-98.0); Mean Platelet Volume 8.7 fL (9.4-12.3); Monocytes Absolute Auto 0.7 X10*3/uL (0.1-1.2); Monocytes Percent Auto 7.1 % (2-11); Neutrophils Absolute Auto 5.6 x10*3/uL (2.0-8.3); Neutrophils Percent Auto 61.1 % (45-73); Platelet Count 276 X10*3/uL (160-400); Red Blood Count 3.68 X10*6/uL (4.20-5.50); Red Cell Distribution Width 15.9 % (11.0-16.0); White Blood Count 9.1 X10*3/uL (4.8-10.8)
--- NOTE | 2023-01-17 22:50 | PC.NURSE ---
pt medicated according to may. pt reporting 10/10 pain. pt family at bedside
[2023-01-17 23:08] LABS: Alanine Aminotransferase 12 U/L (0-31); Albumin Level 3.3 g/dL (3.5-5.0); Alkaline Phosphatase 72 U/L (39-117); Anion Gap 12 (12-20); Aspartate Amino Transferase 15 U/L (5-31); Bilirubin Direct 0.1 mg/dL (0.0-0.5); Bilirubin Total 0.3 mg/dL (0.0-1.0); Blood Urea Nitrogen 23 mg/dL (9-16); Calcium 8.9 mg/dL (8.4-10.2); Carbon Dioxide 27 mmol/L (22-29); Chloride 106 mmol/L (96-108); Estimated Glomerular Filt Rate > 60; Glucose Random 129 mg/dL (60-115); Potassium 4.6 mmol/L (3.3-5.1); Sodium 140 mmol/L (135-145); Total Protein 5.9 g/dL (6.5-8.0)
--- NOTE | 2023-01-17 23:31 | PC.NURSE ---
laurent phillips did ambulation trial with pt. pt utilized walker. pt able to walk with walker though reporting increased level of pain. this rn made aware of pt statements. this rn will make md aware
[2023-01-18 02:00] VITALS: BP 133/70; PULSE 90; RESP 16; O2SAT 100
[2023-01-18 04:00] VITALS: BP 111/45; PULSE 85; TEMP 37.1; O2SAT 100
--- NOTE | 2023-01-18 05:24 | PC.NURSE ---
Reviewed discharge instructions with pt. pt verbalized understanding. Notified AURELIO Kearney.
== END 2023-01-18 05:30 | disposition home or self-care (01) ==
PROVIDERS: Emergency Provider Emergency Medicine; PCP Internal Medicine
DX: R29.6 Repeated falls (principal); M25.552 Pain in left hip; R53.1 Weakness; E11.9 Type 2 diabetes mellitus without complications; I10 Essential (primary) hypertension; E78.5 Hyperlipidemia, unspecified; E66.9 Obesity, unspecified; Z68.41 Body mass index [BMI] 40.0-44.9, adult; Z86.718 Personal history of other venous thrombosis and embolism; Z86.711 Personal history of pulmonary embolism; Z87.891 Personal history of nicotine dependence; Z79.4 Long term (current) use of insulin; Z79.899 Other long term (current) drug therapy
CPT/HCPCS: 36415; 71045; 72192; 73030; 73502; 80048; 80076; 85025; 93005; 99284

== ENCOUNTER 2023-02-07 12:43 | Outpatient (AMB) | payer OTHER, SELFPAY ==
[2023-02-07 13:05] VITALS: BP 136/70; PULSE 96; O2SAT 95; BMI 41.0
--- NOTE | 2023-02-07 13:05 | MHC.OFFVIS ---
Intake Vital Signs 02/07/23 13:05 Height 5 ft Weight 210 lb BMI 41.0 BP 136/70 Blood Pressure Location Rt brachial Position Sitting Pulse 96 Pulse Source Pulse Oximeter Pulse Oximetry (%) 95 Oxygen Delivery Method Room Air Intake Visit Reasons: productive cough and wheeze Calibrator Barometers Required: No Youth Agent: Youth Agent offered & declined Accompanied by: Daughter Allergies aspirin [ASPIRIN] Allergy (Intermediate, Verified 02/07/23 13:10) GI UPSET, stomach pain latex [LATEX] Allergy (Intermediate, Verified 02/07/23 13:10) HIVES Medication List - Last Reconciled 02/07/23 by Glenna Randle LPN acetaminophen (Tylenol Extra Strength) 650 mg PO Q6H PRN albuterol sulfate 90 mcg/actuation 2 puffs PO QID aripiprazole 5 mg PO DAILY atorvastatin 80 mg PO DAILY blood sugar diagnostic (FreeStyle Lite Strips) As directed blood-glucose meter (FreeStyle Lite Meter kit) As directed blood-glucose meter,continuous (DexEchovox G7 Cna Ltc) As directed blood-glucose sensor (Dexcom G7 Sensor device) As directed change every 10 days blood-glucose transmitter (DexEchovox G6 Transmitter device) USE DIRECTED buspirone 1 tab PO BID buspirone 30 mg PO BID clonazepam 0.5 mg PO BID PRN darifenacin ER 15 mg PO DAILY [diabetic shoes extra depth orthopedic shoes ( 1 pair ) with customize heat molded multi density inner soles ( 3 pair) Dispense 1 Sig: As directed DX: And IDDM /polyneuropathy ( E11 0.42 ); hammertoe foot deformity ( M 20.41, and 20.42 ) pre ulcerative skin lesion ( L 85.1 ) Diagnosis ( E11 0.42 ) type 2 diabetes with polyneuropathy] donepezil 5 mg PO BEDTIME duloxetine 60 mg PO DAILY dmggctvogkj-rsetzsesr-inplpvaz 200-62.5-25 mcg (Trelegy Ellipta) 1 inh inhalation DAILY 30 days gabapentin 100 mg PO BID gabapentin 100 mg PO BID glucagon 3 mg/actuation (Baqsimi) 3 mg intranasal ONCE ibuprofen 600 mg PO TID PRN insulin aspart U-100 10 - 18 sliding scale doses See Protocol subcut QIDACHS insulin glargine 54 units subcut BEDTIME ipratropium bromide 2 sprays intranasal BID ketoconazole 2% 1 appl topical 2XW lancets (FreeStyle Lancets) As directed lidocaine 4% 1 patch topical DAILY PRN lidocaine 5% (Lidoderm) 1 patch topical DAILY 30 days liraglutide 1.8 mg subcut DAILY lisinopril 10 mg PO DAILY lorazepam 1 mg PO DAILY PRN meloxicam 15 mg PO DAILY montelukast 10 mg PO DAILY nystatin 1 appl topical BID Oxygen Home Use As directed peg 3350-electrolytes 236-22.74-6.74 -5.86 gram 240 mL PO Q10M pen needle, diabetic (Easy Comfort Pen [place]) As directed inject 4 times a day pregabalin 150 mg PO DAILY rivaroxaban (Xarelto) 20 mg PO DAILY roflumilast 250 mcg PO DAILY tiotropium bromide 2.5 mcg/actuation (Spiriva Respimat) 2 puffs inhalation DAILY 30 days tramadol 50 mg PO Q6H PRN trazodone 25 mg PO BEDTIME PRN vibegron (Gemtesa) 75 mg PO DAILY walker As directed zolpidem 10 mg PO BEDTIME PRN HPI productive cough and wheeze HPI Details Madeleine is a pleasant 72 year old female, former smoker, followed for chronic respiratory failure on 2L supplemental oxygen, asthma COPD overlap syndrome, CASSANDRA on NIV, Pulmonary hypertension and h/o DVT PE on Eliquis. At baseline, she is well controlled on Trelegy and albuterol nebulizer. Today she presents for an acute visit. She reports productive cough with greenish yellow sputum and increasing dyspnea for the past three days. She denies fevers, chills or sick contacts. She denies any wheezing, chest tigthness or chest pain. She has been using her nebulizer with albuterol BID with partial relief. She denies any recent antibiotic or prednisone use. FORMERLY [facility] Medical History DVT (deep venous thrombosis) Pulmonary hypertension Pulmonary emboli Acute on chronic respiratory failure with hypoxia and hypercapnia Chronic respiratory failure [place] (hard of hearing) PONV (postoperative nausea and vomiting) Post herpetic neuralgia Pneumonia Back pain Morbid obesity Chest crackles Cardiomegaly Asthma-COPD overlap syndrome Acute respiratory failure Hyperlipidemia Hypertension Diabetes Arnold-Chiari malformation Arthritis Fibromyalgia Cough CASSANDRA treated with BiPAP Asthma Sinusitis Surgical History Hx of eye surgery History of esophagogastroduodenoscopy (EGD) H/O colonoscopy Hx of laparoscopic gastric banding H/O bilateral breast reduction surgery H/O brain surgery Family History Mother HTN (hypertension) Breast cancer Father Primary cancer of bone marrow Social History (Updated 02/07/23 @ 13:13 by Glenna Randle LPN) Household Members: Other Household Members Other:: granddaughter Housing: Apartment Are you a primary furnace caretaker to a significant other at home: No Do you presently have visiting nurse or other home services: Yes ([employer]) Alcohol intake: never Patient Tobacco Use Status: Former Tobacco user Quit Date: Tobacco use type: Cigarette Years Smoked: 15 +/- Smoked in Last 30 Days: No Advance Directives Date on File: 11/11/21 Review of Systems Const Denies chills, Denies excessive sweating, Denies fever(s), Denies headache(s) and Denies night sweats Eyes Denies dry eyes, Denies irritation and Denies itchy eyes ENT Reports Normal hearing present, Denies headache(s), Denies nasal congestion, Denies nasal discharge, Denies post nasal drip and Denies sore throat Card Denies chest pain, Denies chest pain at rest, Denies chest pain with activity, Denies claudication, Denies leg edema and Denies paroxysmal nocturnal dyspnea Resp Denies pain on inspiration, Denies pain with cough, Denies stridor and Denies wheezing Musc Denies myalgias Neuro Reports Normal hearing present and Denies headache(s) Endo Denies excessive sweating Adolfo/Lymph Denies lymphadenopathy Aller/Immun Denies itchy eyes, Denies seasonal rhinorrhea and Denies wheezing Physical Exam Vital Signs: Last Vital Signs Pulse 96 02/07/23 13:05 BP 136/70 02/07/23 13:05 Pulse Ox 95 02/07/23 13:05 Oxygen Delivery Method Room Air 02/07/23 13:05 BMI result Body Mass Index 41.0 Const General: cooperative, healthy appearing, comfortable, no acute distress, well developed and alert Nutritional Appearance: obese Orientation/consciousness: patient oriented x3 HEENT Head: Yes normal to inspection, Yes normocephalic and Yes atraumatic Ears: hearing grossly normal bilaterally and external ears normal Eyes General: appearance normal, both eyes and all related structures Eyelids: Yes eyelids normal Sclerae: sclerae normal EOM: EOMs intact bilaterally Neck Neck: Yes normal visual inspection and Yes no lymphadenopathy Lymphatic: no lymphadenopathy noted Chest Chest palpation & inspection: normal inspection of the chest Resp Other: diminished lung sounds bilaterally, improved with duoneb Effort & Inspection: normal respiratory effort, able to speak in complete sentences, no audible wheezes, no stridor, not tachypneic, no tripod positioning and no use of accessory muscles Cardio Jugular venous distension: no JVD Rate: regular rate Rhythm: regular rhythm Skin Other: warm, dry General skin exam: no rashes or lesions noted Neuro General: patient oriented x3 Cranial nerves: Yes Normal hearing present Cognition (Neuro): normal cognition Gait exam (Neuro): Normal gait present Extrem General: Yes normal to inspection, Yes capillary refill normal, Yes no clubbing, cyanosis or edema and Yes no pedal edema Psych Appearance: grossly normal and well kempt Speech and movement: Normal speech and movement present and Clear speech present Affect: normal affect Attitude: cooperative Thought process: Normal thought process present Thought content: Normal thought content present Insight: Good insight present (Psych) Judgement: Good judgement present (Psych) Office Procedures Nebulizer Treatment Nebulizer Treatment 03028-Hhymnyvea/MDI RX initial, or Nebulizer Subsequent Treatment Office Meds ipratropium 0.5 mg-albuterol 3 mg (2.5 mg base)/3 mL nebulization jonny Performing Provider: Nguyen Villegas NP Performing Location: [facility] Administered by: Glenna Randel LPN on 02/07/23 13:32 Dose Route Admin Location Dispensed Lot Number Expiration Date [facility] [place][NOTE 3] Social Sciences Lecturer 3 mL inhalation 3 mL [id number] 12/03/24 86617-662-76 [employer] Assessment & Plan Assessment & Plan (1) Asthma-COPD overlap syndrome: Code(s): J44.9 - Chronic obstructive pulmonary disease, unspecified (2) Chronic respiratory failure: Code(s): J96.10 - Chronic respiratory failure, unspecified whether with hypoxia or hypercapnia Qualifiers: Respiratory failure complication: hypoxia and hypercapnia Qualified Code(s): J96.11 - Chronic respiratory failure with hypoxia; J96.12 - Chronic respiratory failure with hypercapnia Plan Will treat bronchitic symptoms with doxycyline. At this time, no wheezing is appreciated, will hold off on prednisone. Patient aware if symptoms do not improve to call office or if worsen, seek emergent care. Requesting refill on albuterol for nebulizer and fluconazole x 7 days as she is prone to yeast infections, will send this in. All questions were answered and patient is in agreement of plan. Will follow up with Dr. Benson for regularly scheduled appointment in March. Orders: Orders AMB Nebulizer Treatment Today J44.9 - Chronic obstructive pulmonary disease, unspecified Medications: New doxycycline hyclate 100 mg PO BID 20 caps 0RF albuterol sulfate 2.5 mg (3 mL) inhalation Q4-6H PRN 180 mL 0RF shortness of breath or wheezing Refilled fluconazole (Diflucan) 100 mg PO DAILY 7 tabs 0RF 7 days Coding Level of Care Code Est Pt Level 3 (09696) Diagnoses Asthma-COPD overlap syndrome J44.9 Chronic respiratory failure with hypoxia and hypercapnia J96.11; J96.12 Respiratory failure complication: hypoxia and hypercapnia CPT Codes Nebulizer Treatment - Nebulizer Treatment, initial or subsequent: [id number]-Tlgheakej/MDI RX initial, or Nebulizer Subsequent Treatment ([id number])
== END 2023-02-07 13:47 | disposition home or self-care (01) ==
PROVIDERS: PCP Internal Medicine; Visit Provider Nurse Practitioner Family
DX: J44.9 Chronic obstructive pulmonary disease, unspecified (principal); J96.11 Chronic respiratory failure with hypoxia; J96.12 Chronic respiratory failure with hypercapnia
CPT/HCPCS: 99213

== ENCOUNTER → 2023-02-07 12:43 | Outpatient (BNVA) | payer OTHER, SELFPAY | PROVIDERS: PCP Internal Medicine; Visit Provider Nurse Practitioner Family | DX: J44.9 Chronic obstructive pulmonary disease, unspecified (principal); J96.11 Chronic respiratory failure with hypoxia; J96.12 Chronic respiratory failure with hypercapnia | CPT/HCPCS: 94640; 99212 ==

== ENCOUNTER 2023-03-14 13:29 | Outpatient (AMB) | payer OTHER, SELFPAY ==
--- NOTE | 2023-03-14 13:38 | A.OFFVIS_ITS ---
Intake Vital Signs 03/14/23 13:39 Height 5 ft Weight 209 lb 14.081 oz BMI 41.0 Pulse 92 Pulse Source Pulse Oximeter Pulse Oximetry (%) 95 Oxygen Delivery Method Room Air Intake Visit Reasons: Resp Failure Cull Grader Required: No Allergies aspirin [ASPIRIN] Allergy (Intermediate, Verified 03/14/23 13:40) GI UPSET, stomach pain latex [LATEX] Allergy (Intermediate, Verified 03/14/23 13:40) HIVES HPI HPI Comments History of Present Illness Details Pleasant 72-year-old female who is here for follow-up. She has history of asthma COPD overlap syndrome, obstructive sleep apnea, hypertension and hyperlipidemia. She was seen a year ago when she presented after getting a CT scan of her chest for lung assessment which showed concern for cardiomegaly. She has advanced COPD and is supposed to be on oxygen at nighttime and with ambulation. She was complaining of some tachycardia at that time. She also complained that her saturations at times were in 80s and she had to use supplemental oxygen to bring it up. We performed an echocardiogram in May 2021 which showed vigorous LV function with EF of 60-70% without any regional wall motion abnormalities. Normal right ventricular size and function. Right ventricular systolic pressure could not be calculated. In June 2022 she got admitted to [facility] with shortness of breath and lower extremity swelling. She was diagnosed with DVT with occlusive thrombus more than 5 cm in length within the paired left peroneal veins. ECHO and CT scan reports were reviewed. Again her RV systolic pressure could not be determined. She had normal biventricular function. She had CT scan of the chest which did not show any central PE but could not rule out subsegmental PE. She was treated as if she had pulmonary emboli and has been on Xarelto since then. She was advised that she should continue it for 3 months. She is returning for follow-up after the hospital admission. She has been taking Xarelto regularly and has no bleeding concerns. She is doing better and is denying any significant chest pain or shortness of breath. She does have palpitations at nighttime which are quite consistent. No palpitations during the daytime. 09/01/2022 the patient is here for a pulm onary follow-up visit. Overall the patient has been doing little better. She is getting stronger and respiratory status is overall better. Yesterday she did get cortisone shot to her back and hands and pain discomfort. She is wondering about a portable oxygen concentrator. We will have to do a 6 minute walk test to see if she qualifies for the conserving device. She cannot do it right now. Wants to hold off till next time. In the meantime the patient did get her noninvasive ventilator for her respiratory failure. Unfortunately it has been hard for her to tolerate it. She did bring it in. I did titrate the pressure is down to see if she can tolerate it easier decreasing both the minimum pressure support and a minimum expiratory pressure. She seemed to tolerate it better. She also has noticed that when she lays flat her oxygen pulse ox decreases at home. Therefore she can increase her oxygen to 3 L while using the noninvasive ventilator will plan to perform an overnight oximetry while on the settings to make sure that she is getting adequate support and further adjustments. I did reach out to Sarah to see if they can further adjust her machine when she is situated. She continue with the current therapy. Also continues with diuresis tolerated. She will continue with the current respiratory diabetes. We will follow up between 4-6 weeks. 10/20/2022 the patient is here for pulmon raiza follow-up visit. Overall the patient is doing better from a respiratory status. She continues use the oxygen with good effect. She did get the noninvasive ventilator. She has had some difficulty tolerating the therapy. She is trying to use it during the daytime and also at nighttime. I did emphasize to her the importance of it specially since her CO2 is already elevated this will help improve her gas exchange and decreased hospitalizations. The patient is aware she is going to try to use it more often. She continues use her respiratory therapy with good effect. She is also using the oxygen with good effect. In the recent imaging studies of blood work to review. Her major issue is significant neuropathy and muscle weakness. I do believe that she will benefit from pulmonary rehabilitation specially if she continues to lose muscle mass she is going to be at risk for worsening respiratory failure. Therefore I am going to have her undergo PFTs and start pulmonary rehab. In addition to that she will have a neurology evaluation. 03/14/2023 the patient is here for a pulmonary follow-up visit. Overall the patient has been doing overall little better. She does continue to use the oxygen with good effect. She has a hard time with the oxygen tanks. We did try to do a walking oximetry to see if she would qualify for portable oxygen concentrator but she could not tolerate it due to significant heart rate elevations. Therefore will continue with current oxygen supplementation. In addition to that the patient was not able to use the noninvasive ventilator and she returned it. Therefore she continues to sleep with the oxygen when this is good. At least her last blood gas was some reassuring. The patient has been having hard time tolerating the Trelegy inhaler. She still has some Symbicort although she does not find that very helpful. Therefore, will go ahead and switch over to breztri. in addition to that, the patient been complaining of thrush. I do not see any on examination. I will send some nystatin mouthwash that she can use to try to prevent further thrush. We can also consider an inhaler without a cortical steroid. She is also developing some chest congest ion. Therefore will treat her for that. She is status post COVID likely I postviral lower respiratory infection is starting. FORMERLY [facility] Medical History DVT (deep venous thrombosis) Pulmonary hypertension Pulmonary emboli Acute on chronic respiratory failure with hypoxia and hypercapnia Chronic respiratory failure [place] (hard of hearing) PONV (postoperative nausea and vomiting) Post herpetic neuralgia Pneumonia Back pain Morbid obesity Chest crackles Cardiomegaly Asthma-COPD overlap syndrome Acute respiratory failure Hyperlipidemia Hypertension Diabetes Arnold-Chiari malformation Arthritis Fibromyalgia Cough CASSANDRA treated with BiPAP Asthma Sinusitis Surgical History Hx of eye surgery History of esophagogastroduodenoscopy (EGD) H/O colonoscopy Hx of laparoscopic gastric banding H/O bilateral breast reduction surgery H/O brain surgery Family History Mother HTN (hypertension) Breast cancer Father Primary cancer of bone marrow Social History (Updated 02/07/23 @ 13:13 by Glenna Randle LPN) Household Members: Other Household Members Other:: granddaughter Housing: Apartment Are you a primary child care development specialist to a significant other at home: No Do you presently have visiting nurse or other home services: Yes (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[employer]) Alcohol intake: never Patient Tobacco Use Status: Former Tobacco user Quit Date: Tobacco use type: Cigarette Years Smoked: 15 +/- Advance Directives Date on File: 11/11/21 Review of Systems Const Reports daytime sleepiness and Reports weight loss Eyes Reports loss of vision ENT Reports dizziness, Reports hearing loss, Reports nasal congestion, Reports nasal discharge, Reports sinus pain and Reports sinus pressure Card Reports leg edema, Reports lightheadedness, Reports palpitations, Reports dyspnea on exertion and Reports orthopnea Resp Reports cough and Reports dyspnea on exertion GI Reports heartburn and Reports vomiting Musc Reports abnormal gait, Reports atrophy, Reports arthralgias, Reports muscle weakness, Reports numbness and Denies other (Frequent falls) Skin/Breast Reports nail changes and Reports rash Neuro Reports Abnormal speech present, Reports abnormal gait, Reports dizziness, Reports loss of vision and Reports numbness Endo Reports palpitations Physical Exam Vital Signs: Last Vital Signs Pulse 92 03/14/23 13:39 Pulse Ox 95 03/14/23 13:39 Oxygen Delivery Method Room Air 03/14/23 13:39 BMI result Body Mass Index 41.0 Const General: comfortable and alert Limitations: wheelchair Neck Neck: Yes normal visual inspection, Yes full ROM and Yes no lymphadenopathy Chest Chest palpation & inspection: normal inspection of the chest Resp Auscultation: diminished lung sounds Cardio Rate: regular rate Rhythm: regular rhythm Heart sounds: S1 normal heart sound present and S2 normal heart sound present GI Palpation (GI): Soft to palpation Auscultation: normal bowel sounds Skin General skin exam: rashes and/or lesions noted Neuro Speech: Abnormal speech present Extrem General: Yes no clubbing, cyanosis or edema Assessment & Plan Assessment & Plan (1) Asthma-COPD overlap syndrome: Code(s): J44.9 - Chronic obstructive pulmonary disease, unspecified (2) Pulmonary emboli: Code(s): I26.99 - Other pulmonary embolism without acute cor pulmonale Qualifiers: Pulmonary embolism type: multiple subsegmental (without acute cor pulmonale) Qualified Code(s): I26.94 - Multiple subsegmental pulmonary emboli without acute cor pulmonale (3) Pulmonary hypertension: Code(s): I27.20 - Pulmonary hypertension, unspecified (4) DVT (deep venous thrombosis): Code(s): I82.409 - Acute embolism and thrombosis of unspecified deep veins of unspecified lower extremity Qualifiers: DVT location: lower extremity Affected thrombotic vein of extremity: unspecified vein of extremity Chronicity: unspecified Laterality: unspecified laterality Qualified Code(s): I82.409 - Acute embolism and thrombosis of unspecified deep veins of unspecified lower extremity (5) Chronic respiratory failure: Code(s): J96.10 - Chronic respiratory failure, unspecified whether with hypoxia or hypercapnia Qualifiers: Respiratory failure complication: hypoxia and hypercapnia Qualified Code(s): J96.11 - Chronic respiratory failure with hypoxia; J96.12 - Chronic respiratory failure with hypercapnia Plan continue Oxygen 2-3 L/pulse with activity. stop Trelegy daily start Breztri ?Bevespi if thrush persist start Doxycycline MISBAH as needed Fluticasone nasal spray stopped Non invasive ventilator, Astral nasal saline rinsing prior to PAP therapy Continue respiratory therapy F/U 3-4 months Medications: New lwvgysybax-fplrhvel-nchgjjgbuj 160-9-4.8 mcg/actuation (Breztri Aerosphere) 2 inhalations inhalation BID 10.7 grams 11RF Refilled doxycycline hyclate 100 mg PO BID 20 caps 0RF Discontinued dauadavkury-pemmklpis-rkkmzfla 200-62.5-25 mcg (Trelegy Ellipta) Discontinued Reason: Doctor's Order 1 inh inhalation DAILY 30 days 60 ea 12RF Coding Level of Care Code Est Pt Level 4 (74233) Diagnoses Asthma-COPD overlap syndrome J44.9 Multiple subsegmental pulmonary emboli without acute cor pulmonale I26.94 Pulmonary embolism type: multiple subsegmental (without acute cor pulmonale) Pulmonary hypertension I27.20 Deep vein thrombosis (DVT) of lower extremity, unspecified chronicity, unspecified laterality, unspecified vein I82.409 DVT location: lower extremity Affected thrombotic vein of extremity: unspecified vein of extremity Chronicity: unspecified Laterality: unspecified laterality Chronic respiratory failure with hypoxia and hypercapnia J96.11; J96.12 Respiratory failure complication: hypoxia and hypercapnia Time Spent (min) 17
[2023-03-14 13:39] VITALS: PULSE 92; O2SAT 95; BMI 41.0
== END 2023-03-14 14:13 | disposition home or self-care (01) ==
PROVIDERS: PCP Internal Medicine; Visit Provider Hospitalist
DX: J44.9 Chronic obstructive pulmonary disease, unspecified (principal); I26.94 Multiple subsegmental thrombotic pulmonary emboli without acute cor pulmonale; I27.20 Pulmonary hypertension, unspecified; I82.409 Acute embolism and thrombosis of unspecified deep veins of unspecified lower extremity; J96.11 Chronic respiratory failure with hypoxia; J96.12 Chronic respiratory failure with hypercapnia
CPT/HCPCS: 99214

== ENCOUNTER → 2023-03-14 13:29 | Outpatient (BNVA) | payer OTHER, SELFPAY | PROVIDERS: PCP Internal Medicine; Visit Provider Hospitalist | DX: J96.11 Chronic respiratory failure with hypoxia (principal); J96.12 Chronic respiratory failure with hypercapnia; J44.9 Chronic obstructive pulmonary disease, unspecified; I26.94 Multiple subsegmental thrombotic pulmonary emboli without acute cor pulmonale; I27.20 Pulmonary hypertension, unspecified; I82.409 Acute embolism and thrombosis of unspecified deep veins of unspecified lower extremity | CPT/HCPCS: 99212 ==

== ENCOUNTER 2023-04-27 13:55 | Outpatient (AMB) | payer OTHER, SELFPAY ==
[2023-04-27 14:10] VITALS: PULSE 90; O2SAT 91; BMI 41.0
--- NOTE | 2023-04-27 14:10 | A.OFFVIS_ITS ---
Intake Vital Signs 04/27/23 14:10 Height 5 ft Weight 209 lb 14.081 oz BMI 41.0 Pulse 90 Pulse Source Pulse Oximeter Pulse Oximetry (%) 91 L Oxygen Delivery Method Room Air Intake Visit Reasons: bronchitis Client Development Consultant Required: No Allergies aspirin [ASPIRIN] Allergy (Intermediate, Verified 04/27/23 14:12) GI UPSET, stomach pain latex [LATEX] Allergy (Intermediate, Verified 04/27/23 14:12) HIVES HPI HPI Comments History of Present Illness Details Pleasant 72-year-old female who is here for follow-up. She has history of asthma COPD overlap syndrome, obstructive sleep apnea, hypertension and hyperlipidemia. She was seen a year ago when she presented after getting a CT scan of her chest for lung assessment which showed concern for cardiomegaly. She has advanced COPD and is supposed to be on oxygen at nighttime and with ambulation. She was complaining of some tachycardia at that time. She also complained that her saturations at times were in 80s and she had to use supplemental oxygen to bring it up. We performed an echocardiogram in May 2021 which showed vigorous LV function with EF of 60-70% without any regional wall motion abnormalities. Normal right ventricular size and function. Right ventricular systolic pressure could not be calculated. In June 2022 she got admitted to [facility] with shortness of breath and lower extremity swelling. She was diagnosed with DVT with occlusive thrombus more than 5 cm in length within the paired left peroneal veins. ECHO and CT scan reports were reviewed. Again her RV systolic pressure could not be determined. She had normal biventricular function. She had CT scan of the chest which did not show any central PE but could not rule out subsegmental PE. She was treated as if she had pulmonary emboli and has been on Xarelto since then. She was advised that she should continue it for 3 months. She is returning for follow-up after the hospital admission. She has been taking Xarelto regularly and has no bleeding concerns. She is doing better and is denying any significant chest pain or shortness of breath. She does have palpitations at nighttime which are quite consistent. No palpitations during the daytime. 09/01/2022 the patient is here for a pulm onary follow-up visit. Overall the patient has been doing little better. She is getting stronger and respiratory status is overall better. Yesterday she did get cortisone shot to her back and hands and pain discomfort. She is wondering about a portable oxygen concentrator. We will have to do a 6 minute walk test to see if she qualifies for the conserving device. She cannot do it right now. Wants to hold off till next time. In the meantime the patient did get her noninvasive ventilator for her respiratory failure. Unfortunately it has been hard for her to tolerate it. She did bring it in. I did titrate the pressure is down to see if she can tolerate it easier decreasing both the minimum pressure support and a minimum expiratory pressure. She seemed to tolerate it better. She also has noticed that when she lays flat her oxygen pulse ox decreases at home. Therefore she can increase her oxygen to 3 L while using the noninvasive ventilator will plan to perform an overnight oximetry while on the settings to make sure that she is getting adequate support and further adjustments. I did reach out to Sarah to see if they can further adjust her machine when she is situated. She continue with the current therapy. Also continues with diuresis tolerated. She will continue with the current respiratory diabetes. We will follow up between 4-6 weeks. 10/20/2022 the patient is here for pulmon raiza follow-up visit. Overall the patient is doing better from a respiratory status. She continues use the oxygen with good effect. She did get the noninvasive ventilator. She has had some difficulty tolerating the therapy. She is trying to use it during the daytime and also at nighttime. I did emphasize to her the importance of it specially since her CO2 is already elevated this will help improve her gas exchange and decreased hospitalizations. The patient is aware she is going to try to use it more often. She continues use her respiratory therapy with good effect. She is also using the oxygen with good effect. In the recent imaging studies of blood work to review. Her major issue is significant neuropathy and muscle weakness. I do believe that she will benefit from pulmonary rehabilitation specially if she continues to lose muscle mass she is going to be at risk for worsening respiratory failure. Therefore I am going to have her undergo PFTs and start pulmonary rehab. In addition to that she will have a neurology evaluation. 03/14/2023 the patient is here for a pulmonary follow-up visit. Overall the patient has been doing overall little better. She does continue to use the oxygen with good effect. She has a hard time with the oxygen tanks. We did try to do a walking oximetry to see if she would qualify for portable oxygen concentrator but she could not tolerate it due to significant heart rate elevations. Therefore will continue with current oxygen supplementation. In addition to that the patient was not able to use the noninvasive ventilator and she returned it. Therefore she continues to sleep with the oxygen when this is good. At least her last blood gas was some reassuring. The patient has been having hard time tolerating the Trelegy inhaler. She still has some Symbicort although she does not find that very helpful. Therefore, will go ahead and switch over to breztri. in addition to that, the patient been complaining of thrush. I do not see any on examination. I will send some nystatin mouthwash that she can use to try to prevent further thrush. We can also consider an inhaler without a cortical steroid. She is also developing some chest congest ion. Therefore will treat her for that. She is status post COVID likely I postviral lower respiratory infection is starting. 04/27/2023 the patient is here for a sick visit. She has been having worsening respiratory symptoms cough chest tightness and wheezing for about 7 days. She went to an urgent Care was given doxycycline. The patient is not feeling better. Having significant coughing bouts. Moderate severity. Denies any fevers or chills. Also on arrival today her oxygen was on the lower side 91%. It did improve. During the last visit the patient could not perform walking oximetry. she will return in 3 weeks will try to do a 6 minute walk test at that time. In the meantime will go ahead and treat her with a prednisone taper. The patient will also start a 2nd antibiotic. If she has no better she will get an x-ray. [facility] Medical History (Updated 04/27/23 @ 21:42 by Abhi Benson MD) COPD exacerbation C. difficile enteritis COVID-19 DVT (deep venous thrombosis) Pulmonary hypertension Pulmonary emboli Acute on chronic respiratory failure with hypoxia and hypercapnia Chronic respiratory failure SHISHMAREF IRA (hard of hearing) PONV (postoperative nausea and vomiting) Post herpetic neuralgia Pneumonia Back pain Morbid obesity Chest crackles Cardiomegaly Asthma-COPD overlap syndrome Acute respiratory failure Hyperlipidemia Hypertension Diabetes Arnold-Chiari malformation Arthritis Fibromyalgia Cough CASSANDRA treated with BiPAP Asthma Sinusitis Surgical History Hx of eye surgery History of esophagogastroduodenoscopy (EGD) H/O colonoscopy Hx of laparoscopic gastric banding H/O bilateral breast reduction surgery H/O brain surgery Family History Mother HTN (hypertension) Breast cancer Father Primary cancer of bone marrow Social History Household Members: Other Household Members Other:: granddaughter Housing: Apartment Are you a primary transitional care manager to a significant other at home: No Do you presently have visiting nurse or other home services: Yes ([facility]) Alcohol intake: never Patient Tobacco Use Status: Former Tobacco user Quit Date: Tobacco use type: Cigarette Years Smoked: 15 +/- Advance Directives Date on File: 11/11/21 Review of Systems Const Reports daytime sleepiness and Reports weight loss Eyes Reports loss of vision ENT Reports dizziness, Reports hearing loss, Reports nasal congestion, Reports nasal discharge, Reports sinus pain and Reports sinus pressure Card Reports leg edema, Reports lightheadedness, Reports palpitations, Reports dyspnea on exertion and Reports orthopnea Resp Reports change in phlegm color, Reports chest congestion, Reports cough, Denies hemoptysis, Reports dyspnea on exertion and Reports wheezing GI Reports heartburn and Reports vomiting Musc Reports abnormal gait, Reports atrophy, Reports arthralgias, Reports muscle weakness, Reports numbness and Denies other (Frequent falls) Skin/Breast Reports nail changes and Reports rash Neuro Reports Abnormal speech present, Reports abnormal gait, Reports dizziness, Reports loss of vision and Reports numbness Endo Reports palpitations Aller/Immun Reports wheezing Physical Exam Vital Signs: Last Vital Signs Pulse 90 04/27/23 14:10 Pulse Ox 91 L 04/27/23 14:10 Oxygen Delivery Method Room Air 04/27/23 14:10 BMI result Body Mass Index 41.0 Const General: comfortable and alert Limitations: wheelchair Neck Neck: Yes normal visual inspection, Yes full ROM and Yes no lymphadenopathy Chest Chest palpation & inspection: normal inspection of the chest Resp Effort & Inspection: normal respiratory effort and prolonged expiratory phase Auscultation: wheezes and diminished lung sounds Cardio Rate: regular rate Rhythm: regular rhythm Heart sounds: S1 normal heart sound present and S2 normal heart sound present GI Palpation (GI): Soft to palpation Auscultation: normal bowel sounds Skin General skin exam: rashes and/or lesions noted Neuro Speech: Abnormal speech present Extrem General: Yes no clubbing, cyanosis or edema Assessment & Plan Assessment & Plan (1) Asthma-COPD overlap syndrome: Code(s): J44.9 - Chronic obstructive pulmonary disease, unspecified (2) Pulmonary emboli: Code(s): I26.99 - Other pulmonary embolism without acute cor pulmonale Qualifiers: Pulmonary embolism type: multiple subsegmental (without acute cor pulmonale) Qualified Code(s): I26.94 - Multiple subsegmental pulmonary emboli without acute cor pulmonale (3) Pulmonary hypertension: Code(s): I27.20 - Pulmonary hypertension, unspecified (4) DVT (deep venous thrombosis): Code(s): I82.409 - Acute embolism and thrombosis of unspecified deep veins of unspecified lower extremity Qualifiers: Affected thrombotic vein of extremity: unspecified vein of extremity Chronicity: unspecified DVT location: lower extremity Laterality: unspecified laterality Qualified Code(s): I82.409 - Acute embolism and thrombosis of unspec ified deep veins of unspecified lower extremity (5) Chronic respiratory failure: Code(s): J96.10 - Chronic respiratory failure, unspecified whether with hypoxia or hypercapnia Qualifiers: Respiratory failure complication: hypoxia and hypercapnia Qualified Code(s): J96.11 - Chronic respiratory failure with hypoxia; J96.12 - Chronic respiratory failure with hypercapnia (6) Chronic restrictive lung disease: Code(s): J98.4 - Other disorders of lung (7) COPD exacerbation: Code(s): J44.1 - Chronic obstructive pulmonary disease with (acute) exacerbation (8) Bronchitis: Code(s): J40 - Bronchitis, not specified as acute or chronic Plan continue Oxygen 2-3 L/pulse with activity. Will address portable oxygen during her f/u visit continue Breztri start prednisone taper start augmentin CXR MISBAH as needed Fluticasone nasal spray stopped Non invasive ventilator, Astral nasal saline rinsing prior to PAP therapy Continue respiratory therapy F/U 3-4 weeks Orders: Orders XR chest 2V Today J98.4 - Other disorders of lung Medications: New fluconazole 100 mg PO DAILY 10 days 10 tabs 1RF nystatin swish and swallow 1 mL PO BID 30 days 60 mL 3RF amoxicillin-pot clavulanate 875-125 mg 1 tab PO BID 10 days 20 tabs 0RF prednisone PO daily; Take 2 tabs daily x 5 days, then 1 tablet daily x 5 days 10 days 15 tabs 0RF Coding Level of Care Code Est Pt Level 4 (95233) Diagnoses Asthma-COPD overlap syndrome J44.9 Multiple subsegmental pulmonary emboli without acute cor pulmonale I26.94 Pulmonary embolism type: multiple subsegmental (without acute cor pulmonale) Pulmonary hypertension I27.20 Deep vein thrombosis (DVT) of lower extremity, unspecified chronicity, unspecified laterality, unspecified vein I82.409 Affected thrombotic vein of extremity: unspecified vein of extremity Chronicity: unspecified DVT location: lower extremity Laterality: unspecified laterality Chronic respiratory failure with hypoxia and hypercapnia J96.11; J96.12 Respiratory failure complication: hypoxia and hypercapnia Chronic restrictive lung disease J98.4 COPD exacerbation J44.1 Bronchitis J40 Time Spent (min) 17
== END 2023-04-27 14:33 | disposition home or self-care (01) ==
PROVIDERS: PCP Internal Medicine; Visit Provider Hospitalist
DX: J44.9 Chronic obstructive pulmonary disease, unspecified (principal); I26.94 Multiple subsegmental thrombotic pulmonary emboli without acute cor pulmonale; I27.20 Pulmonary hypertension, unspecified; I82.409 Acute embolism and thrombosis of unspecified deep veins of unspecified lower extremity; J96.11 Chronic respiratory failure with hypoxia; J96.12 Chronic respiratory failure with hypercapnia; J98.4 Other disorders of lung; J44.1 Chronic obstructive pulmonary disease with (acute) exacerbation; J40 Bronchitis, not specified as acute or chronic
CPT/HCPCS: 99214

== ENCOUNTER → 2023-04-27 13:55 | Outpatient (BNVA) | payer OTHER, SELFPAY | PROVIDERS: PCP Internal Medicine; Visit Provider Hospitalist | DX: J44.9 Chronic obstructive pulmonary disease, unspecified (principal); I26.94 Multiple subsegmental thrombotic pulmonary emboli without acute cor pulmonale; I27.20 Pulmonary hypertension, unspecified; I82.409 Acute embolism and thrombosis of unspecified deep veins of unspecified lower extremity; J96.11 Chronic respiratory failure with hypoxia; J96.12 Chronic respiratory failure with hypercapnia; J98.4 Other disorders of lung; J44.1 Chronic obstructive pulmonary disease with (acute) exacerbation; J40 Bronchitis, not specified as acute or chronic | CPT/HCPCS: 99212 ==

== ENCOUNTER 2023-05-15 14:08 | Outpatient (AMB) | payer OTHER, SELFPAY ==
--- NOTE | 2023-05-15 14:16 | MHC.OFFVIS ---
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 She has history of asthma COPD overlap syndrome, obstructive sleep apnea, hypertension and hyperlipidemia. She was seen a year ago when she presented after getting a CT scan of her chest for lung assessment which showed concern for cardiomegaly. She has advanced COPD and is supposed to be on oxygen at nighttime and with ambulation. She was complaining of some tachycardia at that time. She also complained that her saturations at times were in 80s and she had to use supplemental oxygen to bring it up. We performed an echocardiogram in May 2021 which showed vigorous LV function with EF of 60-70% without any regional wall motion abnormalities. Normal right ventricular size and function. Right ventricular systolic pressure could not be calculated. In June 2022 she got admitted to [facility] with shortness of breath and lower extremity swelling. She was diagnosed with DVT with occlusive thrombus more than 5 cm in length within the paired left peroneal veins. ECHO and CT scan reports were reviewed. Again her RV systolic pressure could not be determined. She had normal biventricular function. She had CT scan of the chest which did not show any central PE but could not rule out subsegmental PE. She was treated as if she had pulmonary emboli and has been on Xarelto since then. She was advised that she should continue it for 3 months. She is returning for follow-up after the hospital admission. She has been taking Xarelto regularly and has no bleeding concerns. She is doing better and is denying any significant chest pain or shortness of breath. She does have palpitations at nighttime which are quite consistent. No palpitations during the daytime. 09/01/2022 the patient is here for a pulmonary follow-up visit. Overall the patient has been doing little better. She is getting stronger and respiratory status is overall better. Yesterday she did get cortisone shot to her back and hands and pain discomfort. She is wondering about a portable oxygen concentrator. We will have to do a 6 minute walk test to see if she qualifies for the conserving device. She cannot do it right now. Wants to hold off till next time. In the meantime the patient did get her noninvasive ventilator for her respiratory failure. Unfortunately it has been hard for her to tolerate it. She did bring it in. I did titrate the pressure is down to see if she can tolerate it easier decreasing both the minimum pressure support and a minimum expiratory pressure. She seemed to tolerate it better. She also has noticed that when she lays flat her oxygen pulse ox decreases at home. Therefore she can increase her oxygen to 3 L while using the noninvasive ventilator will plan to perform an overnight oximetry while on the settings to make sure that she is getting adequate support and further adjustments. I did reach out to Sarah to see if they can further adjust her machine when she is situated. She continue with the current therapy. Also continues with diuresis tolerated. She will continue with the current respiratory diabetes. We will follow up between 4-6 weeks. 10/20/2022 the patient is here for pulmonary follow-up visit. Overall the patient is doing better from a respiratory status. She continues use the oxygen with good effect. She did get the noninvasive ventilator. She has had some difficulty tolerating the therapy. She is trying to use it during the daytime and also at nighttime. I did emphasize to her the importance of it specially since her CO2 is already elevated this will help improve her gas exchange and decreased hospitalizations. The patient is aware she is going to try to use it more often. She continues use her respiratory therapy with good effect. She is also using the oxygen with good effect. In the recent imaging studies of blood work to review. Her major issue is significant neuropathy and muscle weakness. I do believe that she will benefit from pulmonary rehabilitation specially if she continues to lose muscle mass she is going to be at risk for worsening respiratory failure. Therefore I am going to have her undergo PFTs and start pulmonary rehab. In addition to that she will have a neurology evaluation. 03/14/2023 the patient is here for a pulmonary follow-up visit. Overall the patient has been doing overall little better. She does continue to use the oxygen with good effect. She has a hard time with the oxygen tanks. We did try to do a walking oximetry to see if she would qualify for portable oxygen concentrator but she could not tolerate it due to significant heart rate elevations. Therefore will continue with current oxygen supplementation. In addition to that the patient was not able to use the noninvasive ventilator and she returned it. Therefore she continues to sleep with the oxygen when this is good. At least her last blood gas was some reassuring. The patient has been having hard time tolerating the Trelegy inhaler. She still has some Symbicort although she does not find that very helpful. Therefore, will go ahead and switch over to breztri. in addition to that, the patient been complaining of thrush. I do not see any on examination. I will send some nystatin mouthwash that she can use to try to prevent further thrush. We can also consider an inhaler without a cortical steroid. She is also developing some chest congestion. Therefore will treat her for that. She is status post COVID likely I postviral lower respiratory infection is starting. 04/27/2023 the patient is here for a sick visit. She has been having worsening respiratory symptoms cough chest tightness and wheezing for about 7 days. She went to an urgent Care was given doxycycline. The patient is not feeling better. Having significant coughing bouts. Moderate severity. Denies any fevers or chills. Also on arrival today her oxygen was on the lower side 91%. It did improve. During the last visit the patient could not perform walking oximetry. she will return in 3 weeks will try to do a 6 minute walk test at that time. In the meantime will go ahead and treat her with a prednisone taper. The patient will also start a 2nd antibiotic. If she has no better she will get an x-ray. [facility] Medical History (Updated 04/27/23 @ 21:42 by Abhi Benson MD) COPD exacerbation C. difficile enteritis COVID-19 DVT (deep venous thrombosis) Pulmonary hypertension Pulmonary emboli Acute on chronic respiratory failure with hypoxia and hypercapnia Chronic respiratory failure [place] (hard of hearing) PONV (postoperative nausea and vomiting) Post herpetic neuralgia Pneumonia Back pain Morbid obesity Chest crackles Cardiomegaly Asthma-COPD overlap syndrome Acute respiratory failure Hyperlipidemia Hypertension Diabetes Arnold-Chiari malformation Arthritis Fibromyalgia Cough CASSANDRA treated with BiPAP Asthma Sinusitis Surgical History Hx of eye surgery History of esophagogastroduodenoscopy (EGD) H/O colonoscopy Hx of laparoscopic gastric banding H/O bilateral breast reduction surgery H/O brain surgery Family History Mother HTN (hypertension) Breast cancer Father Primary cancer of bone marrow Social History Household Members: Other Household Members Other:: granddaughter Housing: Apartment Are you a primary home care associate to a significant other at home: No Do you presently have visiting nurse or 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 services: 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) Alcohol intake: never Patient Tobacco Use Status: Former Tobacco user Quit Date: Tobacco use type: Cigarette Years Smoked: 15 +/- Advance Directives Date on File: 11/11/21 Review of Systems Const Reports daytime sleepiness and Reports weight loss Eyes Reports loss of vision ENT Reports dizziness, Reports hearing loss, Reports nasal congestion, Reports nasal discharge, Reports sinus pain and Reports sinus pressure Card Reports leg edema, Reports lightheadedness, Reports palpitations, Reports dyspnea on exertion and Reports orthopnea Resp Reports change in phlegm color, Reports chest congestion, Reports cough, Denies hemoptysis, Reports dyspnea on exertion and Reports wheezing GI Reports heartburn and Reports vomiting Musc Reports abnormal gait, Reports atrophy, Reports arthralgias, Reports muscle weakness, Reports numbness and Denies other (Frequent falls) Skin/Breast Reports nail changes and Reports rash Neuro Reports Abnormal speech present, Reports abnormal gait, Reports dizziness, Reports loss of vision and Reports numbness Endo Reports palpitations Aller/Immun Reports wheezing Physical Exam Vital Signs: Last Vital Signs Pulse 89 05/15/23 14:17 Pulse Ox 92 05/15/23 14:17 Oxygen Delivery Method Room Air 05/15/23 14:17 BMI result Body Mass Index 39.1 Const General: comfortable and alert Limitations: wheelchair Neck Neck: Yes normal visual inspection, Yes full ROM and Yes no lymphadenopathy Chest Chest palpation & inspection: normal inspection of the chest Resp Effort & Inspection: normal respiratory effort and prolonged expiratory phase Auscultation: wheezes and diminished lung sounds Cardio Rate: regular rate Rhythm: regular rhythm Heart sounds: S1 normal heart sound present and S2 normal heart sound present GI Palpation (GI): Soft to palpation Auscultation: normal bowel sounds Skin General skin exam: rashes and/or lesions noted Neuro Speech: Abnormal speech present Extrem General: Yes no clubbing, cyanosis or edema Office Procedures 6 Minute Walk Time:: 21:15 SPO2 % at rest: 95 Pulse at rest: 78 SPO2 % during excercise: 88 Pulse during excercise: 98 Distance in yards walked: 100 Dixon Score: 7 Supplemental Oxygen: desaturated on RA to pox 88%, placed on 2L pulse and maintained pox 94% with activity. [id number] - 6 Minute Walk Assessment & Plan Assessment & Plan (1) Asthma-COPD overlap syndrome: Code(s): J44.9 - Chronic obstructive pulmonary disease, unspecified (2) Pulmonary emboli: Code(s): I26.99 - Other pulmonary embolism without acute cor pulmonale Qualifiers: Pulmonary embolism type: multiple subsegmental (without acute cor pulmonale) Qualified Code(s): I26.94 - Multiple subsegmental pulmonary emboli without acute cor pulmonale (3) Pulmonary hypertension: Code(s): I27.20 - Pulmonary hypertension, unspecified (4) DVT (deep venous thrombosis): Code(s): I82.409 - Acute embolism and thrombosis of unspecified deep veins of unspecified lower extremity Qualifiers: Affected thrombotic vein of extremity: unspecified vein of extremity Chronicity: unspecified DVT location: lower extremity Laterality: unspecified laterality Qualified Code(s): I82.409 - Acute embolism and thrombosis of unspecified deep veins of unspecified lower extremity (5) Chronic respiratory failure: Code(s): J96.10 - Chronic respiratory failure, unspecified whether with hypoxia or hypercapnia Qualifiers: Respiratory failure complication: hypoxia and hypercapnia Qualified Code(s): J96.11 - Chronic respiratory failure with hypoxia; J96.12 - Chronic respiratory failure with hypercapnia (6) Chronic restrictive lung disease: Code(s): J98.4 - Other disorders of lung (7) Bronchitis: Code(s): J40 - Bronchitis, not specified as acute or chronic Plan continue Oxygen 2-L/pulse with activity. Start POC with activity for better portability and ease. continue Breztri nebulizer 1-2 day MISBAH as needed Fluticasone nasal spray stopped Non invasive ventilator, Astral nasal saline rinsing prior to PAP therapy Continue respiratory therapy CXR and blood gas prior to the next visit sputum culture F/U 8 weeks Orders: Orders Sputum Cult + Gram stain Today J40 - Bronchitis, not specified as acute or chronic XR chest 2V Today J96.11 - Chronic respiratory failure with hypoxia, J96.12 - Chronic respiratory failure with hypercapnia Venous Blood Gas Today J96.11 - Chronic respiratory failure with hypoxia, J96.12 - Chronic respiratory failure with hypercapnia Complete Blood Count Auto Diff Today J96.11 - Chronic respiratory failure with hypoxia, J96.12 - Chronic respiratory failure with hypercapnia Erythrocyte Sedimentation Rate Today J96.11 - Chronic respiratory failure with hypoxia, J96.12 - Chronic respiratory failure with hypercapnia Basic Metabolic Panel Today J96.11 - Chronic respiratory failure with hypoxia, J96.12 - Chronic respiratory failure with hypercapnia Coding Level of Care Code Est Pt Level 4 (05834) Diagnoses Asthma-COPD overlap syndrome J44.9 Multiple subsegmental pulmonary emboli without acute cor pulmonale I26.94 Pulmonary embolism type: multiple subsegmental (without acute cor pulmonale) Pulmonary hypertension I27.20 Deep vein thrombosis (DVT) of lower extremity, unspecified chronicity, unspecified laterality, unspecified vein I82.409 Affected thrombotic vein of extremity: unspecified vein of extremity Chronicity: unspecified DVT location: lower extremity Laterality: unspecified laterality Chronic respiratory failure with hypoxia and hypercapnia J96.11; J96.12 Respiratory failure complication: hypoxia and hypercapnia Chronic restrictive lung disease J98.4 Bronchitis J40 CPT Codes Coding ([id number]) Time Spent (min) 19
[2023-05-15 14:17] VITALS: PULSE 89; O2SAT 92; BMI 39.1
[2023-05-15 21:14] VITALS: PULSE 78; O2SAT 95
== END 2023-05-15 14:47 | disposition home or self-care (01) ==
PROVIDERS: PCP Internal Medicine; Visit Provider Hospitalist
DX: J44.9 Chronic obstructive pulmonary disease, unspecified (principal); I26.94 Multiple subsegmental thrombotic pulmonary emboli without acute cor pulmonale; I27.20 Pulmonary hypertension, unspecified; I82.409 Acute embolism and thrombosis of unspecified deep veins of unspecified lower extremity; J96.11 Chronic respiratory failure with hypoxia; J96.12 Chronic respiratory failure with hypercapnia; J98.4 Other disorders of lung; J40 Bronchitis, not specified as acute or chronic
CPT/HCPCS: 94618; 99214

== ENCOUNTER → 2023-05-15 14:08 | Outpatient (BNVA) | payer OTHER, SELFPAY | PROVIDERS: PCP Internal Medicine; Visit Provider Hospitalist | DX: J44.9 Chronic obstructive pulmonary disease, unspecified (principal); J96.11 Chronic respiratory failure with hypoxia; J96.12 Chronic respiratory failure with hypercapnia; J98.4 Other disorders of lung; J40 Bronchitis, not specified as acute or chronic; I26.94 Multiple subsegmental thrombotic pulmonary emboli without acute cor pulmonale; I27.20 Pulmonary hypertension, unspecified; I82.409 Acute embolism and thrombosis of unspecified deep veins of unspecified lower extremity | CPT/HCPCS: 94618; 99212 ==

== ENCOUNTER 2023-06-15 12:18 | Outpatient (AMB) | payer OTHER, SELFPAY ==
--- NOTE | 2023-06-15 12:59 | A.OFFVIS_ITS ---
Intake Intake Visit Reasons: DM-LVM [employer] Service Technician Required: No Accompanied by: Other Relationship Allergies aspirin [ASPIRIN] Allergy (Intermediate, Verified 05/15/23 14:18) GI UPSET, stomach pain latex [LATEX] Allergy (Intermediate, Verified 05/15/23 14:18) HIVES HPI Comprehensive Diabetes Asmnt Most Recent Diabetes Results: Microalb/Creat Ratio 16.5 ug/mg cr 09/01/22 Cholesterol 155 mg/dL 09/01/22 HDL Cholesterol 61 mg/dL 09/01/22 Triglycerides 89 mg/dL 09/01/22 Creatinine 0.79 mg/dL (0.5-1.4) 01/17/23 Blood Urea Nitrogen 23 mg/dL (9-16) H 01/17/23 Sodium 140 mmol/L (135-145) 01/17/23 Potassium 4.6 mmol/L (3.3-5.1) 01/17/23 Chloride 106 mmol/L (96-108) 01/17/23 Carbon Dioxide 27 mmol/L (22-29) 01/17/23 Calcium 8.9 mg/dL (8.4-10.2) 01/17/23 AST 15 U/L (5-31) 01/17/23 ALT 12 U/L (0-31) 01/17/23 Total Protein 5.9 g/dL (6.5-8.0) L 01/17/23 Albumin 3.3 g/dL (3.5-5.0) L 01/17/23 PFSH Medical History (Updated 04/27/23 @ 21:42 by Abhi Benson MD) COPD exacerbation C. difficile enteritis COVID-19 DVT (deep venous thrombosis) Pulmonary hypertension Pulmonary emboli Acute on chronic respiratory failure with hypoxia and hypercapnia Chronic respiratory failure [place] (hard of hearing) PONV (postoperative nausea and vomiting) Post herpetic neuralgia Pneumonia Back pain Morbid obesity Chest crackles Cardiomegaly Asthma-COPD overlap syndrome Acute respiratory failure Hyperlipidemia Hypertension Diabetes Arnold-Chiari malformation Arthritis Fibromyalgia Cough CASSANDRA treated with BiPAP Asthma Sinusitis Surgical History Hx of eye surgery History of esophagogastroduodenoscopy (EGD) H/O colonoscopy Hx of laparoscopic gastric banding H/O bilateral breast reduction surgery H/O brain surgery Family History Mother HTN (hypertension) Breast cancer Father Primary cancer of bone marrow Social History Household Members: Other Household Members Other:: granddaughter Housing: Apartment Are you a primary palliative care nurse practitioner to a significant other at home: No Do you presently have 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 Instructed patient to only take Lantus at bedtime, NovoLog should only be taken prior to meals. Patient also reports she uses sliding scale, that does not match sliding scale in patient's chart Patient provided sliding scale NovoLo-200 mg/dL patient takes 10 units 201-300 mg/dL patient takes 20 units 301 to 400 mg/dL patient takes 24 to 26 units Patients CGM information reviewed Reviewed patient's sensor data: Hypoglycemia: 0% Hyperglycemia:? 81% Time in Range:? 19% Average glucose for the last 2 weeks?258 mg/dL Patient is interested in the iLet, she has an upcoming appointment on 06/20/2023, with Dr. Arambula. Once patient is seen by Dr. Arambula, and we have updated A1c we can order insulin pump. Reviewed with patient how to treat any episodes of hypoglycemia with rule of 15s Reviewed how to interpret trend arrows Reminded patient that to check finger sticks if symptoms do not match sensor reading. Discussed lag time between finger stick and sensor data.? Patient able to insert sensor independently at home without issue.? Patient Instructions: Restart Lantus 54 units daily, do not take NovoLog unless eating a meal Follow-up with parent educator in 2 weeks Coding Level of Care Code Est Pt Level 1 (53292) Diagnoses Diabetes E11.9
== END 2023-06-15 13:00 | disposition home or self-care (01) ==
PROVIDERS: PCP Internal Medicine; Visit Provider Registered Nurse Diabetes Educator
DX: E11.9 Type 2 diabetes mellitus without complications (principal)

== ENCOUNTER → 2023-06-15 12:18 | Outpatient (BNVA) | payer OTHER, SELFPAY | PROVIDERS: PCP Internal Medicine; Visit Provider Registered Nurse Diabetes Educator | DX: E11.9 Type 2 diabetes mellitus without complications (principal) | CPT/HCPCS: 99211 ==

== ENCOUNTER 2023-06-20 09:06 | Outpatient (AMB) | payer OTHER, SELFPAY ==
[2023-06-20 09:09] VITALS: BP 132/66; PULSE 99; BMI 40.3
--- NOTE | 2023-06-20 09:09 | A.OFFVIS_ITS ---
Intake Vital Signs 06/20/23 09:09 Height 5 ft Weight 206 lb 9.17 oz BMI 40.3 BP 132/66 Blood Pressure Location Lt brachial Pulse 99 Pulse Source Pulse Oximeter Intake Visit Reasons: DM-confirmed Intake Note: Patient presents today to follow up on D2MT. 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: No Accompanied by: Grand Child Allergies aspirin [ASPIRIN] Allergy (Intermediate, Verified 06/20/23 09:22) GI UPSET, stomach pain latex [LATEX] Allergy (Intermediate, Verified 06/20/23 09:22) HIVES Medication List - Last Reconciled 06/20/23 by Zafar Arambula MD acetaminophen (Tylenol Extra Strength) 650 mg PO Q6H PRN albuterol sulfate 90 mcg/actuation 2 puffs PO QID albuterol sulfate 2.5 mg (3 mL) inhalation Q4-6H PRN aripiprazole 5 mg PO DAILY atorvastatin 40 mg PO DAILY blood sugar diagnostic (FreeStyle Lite Strips) As directed blood-glucose meter (FreeStyle Lite Meter kit) As directed blood-glucose meter,continuous (Dexcom G7 I&C Tech) As directed blood-glucose sensor (Dexcom G7 Sensor device) As directed change every 10 days blood-glucose transmitter (Dexcom G6 Transmitter device) USE DIRECTED [id number]-xvwbhxyq-jyxaqkazch 160-9-4.8 mcg/actuation (Breztri Aerosphere) 2 inhalations inhalation BID buspirone 1 tab PO BID buspirone 30 mg PO BID clonazepam 0.5 mg PO BID PRN darifenacin ER 15 mg PO DAILY [diabetic shoes extra depth orthopedic shoes ( 1 pair ) with customize heat molded multi density inner soles ( 3 pair) Dispense 1 Sig: As directed DX: And IDDM /polyneuropathy ( E11 0.42 ); hammertoe foot deformity ( M 20.41, and 20.42 ) pre ulcerative skin lesion ( L 85.1 ) Diagnosis ( E11 0.42 ) type 2 diabetes with polyneuropathy] donepezil 5 mg PO BEDTIME duloxetine 60 mg PO DAILY fluconazole 100 mg PO DAILY 10 days ohqfqbhylef-bzhmxvqrw-xvxkhvzk 200-62.5-25 mcg (Trelegy Ellipta) 1 ea inhalation DAILY gabapentin 100 mg PO BID gabapentin 300 mg PO BEDTIME 30 days glucagon 3 mg/actuation (Baqsimi) 3 mg intranasal ONCE ibuprofen 600 mg PO TID PRN insulin aspart U-100 10 - 18 sliding scale doses See Protocol subcut QIDACHS insulin glargine 54 units subcut BEDTIME ipratropium bromide 2 sprays intranasal BID ketoconazole 2% 1 appl topical 2XW lancets (FreeStyle Lancets) As directed lidocaine 5% (Lidoderm) 1 patch topical DAILY 30 days liraglutide 1.8 mg subcut DAILY lisinopril 10 mg PO DAILY lorazepam 1 mg PO DAILY PRN meloxicam 15 mg PO DAILY metformin 1,000 mg PO BID montelukast 10 mg PO DAILY nebulizers As directed nystatin 1 appl topical BID nystatin 1 mL PO BID 30 days nystatin 1 mL buccal BID 30 days Oxygen Home Use As directed peg 3350-electrolytes 236-22.74-6.74 -5.86 gram 240 mL PO Q10M pen needle, diabetic (BD Ultra-Fine Short Pen Needle) DIRECTED TO INJECT FOUR TIMES DAILY pregabalin 150 mg PO DAILY roflumilast 250 mcg PO DAILY tiotropium bromide 2.5 mcg/actuation (Spiriva Respimat) 2 puffs inhalation DAILY 30 days tramadol 50 mg PO Q6H PRN trazodone 25 mg PO BEDTIME PRN vibegron (Gemtesa) 75 mg PO DAILY walker As directed zolpidem 10 mg PO BEDTIME PRN HPI HPI Comments History of Present Illness Details 72 YO F who is seen in consultation for T2DM at the request of PCP. Initially diagnosed with T2DM in >10 yrs . Saw allyson before Dr. Lyons at [facility] Was initially started on treatment with metformin.Stopped because couldn't swallow Current regimen victoza 1.8 mcg Lantus 54 units . Novolog 8-18 scale starting with 150-200 2 units and increase 2 units for 50 mg/DL Dexcom download shows she is using the sensor 50% of the time. Average glucose is 199 with standard deviation of 55. 44% range with 66% hyperglycemia no hypoglycemia. Pad shows elevation in point of care after lunch and persistent through the afternoon Reports no low sugars . Treats lows with eats sugar . Checks sugar after to ensure it is rising. Treats according to rule of 15's. Has a glucagon rescue kit at home . Family history of T2DM in maternal grandmother, cousins , aunt, sister . Has eyes checked yearly, last eye exam has appt tomorrow , has appt with optho next wk Has retinopathy. Has neuropathy, sees podiatry. Denies nephropathy, on OSITO/ARB. . Has HLD, on statin. Last LDL Denies CAD. Not Had diabetes education. Was on prednisone taper - now off PFSH Medical History (Updated 04/27/23 @ 21:42 by Abhi Benson MD) COPD exacerbation C. difficile enteritis COVID-19 DVT (deep venous thrombosis) Pulmonary hypertension Pulmonary emboli Acute on chronic respiratory failure with hypoxia and hypercapnia Chronic respiratory failure [place] (hard of hearing) PONV (postoperative nausea and vomiting) Post herpetic neuralgia Pneumonia Back pain Morbid obesity Chest crackles Cardiomegaly Asthma-COPD overlap syndrome Acute respiratory failure Hyperlipidemia Hypertension Diabetes Arnold-Chiari malformation Arthritis Fibromyalgia Cough CASSANDRA treated with BiPAP Asthma Sinusitis Surgical History Hx of eye surgery History of esophagogastroduodenoscopy (EGD) H/O colonoscopy Hx of laparoscopic gastric banding H/O bilateral breast reduction surgery H/O brain surgery Family History Mother HTN (hypertension) Breast cancer Father Primary cancer of bone marrow Social History Household Members: Other Household Members Other:: granddaughter Housing: Apartment Are you a primary child daycare worker to a significant other at home: No Do you presently have visiting nurse or other home services: Yes ([employer]) Alcohol intake: never Patient Tobacco Use Status: Former Tobacco user Quit Date: Tobacco use type: Cigarette Years Smoked: 15 +/- Advance Directives Date on File: 11/11/21 Physical Exam Vital Signs: Last Vital Signs Pulse 99 06/20/23 09:09 BP 132/66 06/20/23 09:09 BMI result Body Mass Index 40.3 Absence of Cushingoid features. Absence of acromegalic features. Neck exam reveals nl size thyroid about 15 gms. No thyroid nodules palpable. No carotid bruits present. Lungs CTA. Heart S1 S2, Reg R/R. No M/R/ G. Skin exam reveals absence of vitiligo or acanthosis nigricans. Abdominal exam reveals Soft NT/ND with NA BS. No organomegaly present. Neck Other: . Extrem Other: Visual exam of foot performed. No ulcerations or open lesions. No onchomycosis, no callouses.Pulses 2 + distally Sensation intact to monofilament exam. Vibratory sensation sensed is decreased with 128 Hz tuning fork Results AMB Hemoglobin A1c AMB Hemoglobin A1c 8.7 % Last Edit by WAQAR Waller on 06/20/23 09:45 Results Reviewed Results Reviewed: Laboratory Last Values Glucose (Clinic) 169 mg/dL (60-115) H 06/20/23 09:24 Hgb A1c (Clinic) 8.7 % (4.0-6.0) H 06/20/23 09:27 Assessment & Plan Assessment & Plan (1) Diabetes: Code(s): E11.9 - Type 2 diabetes mellitus without complications Plan: This is a 72-year-old female with a history of type 2 diabetes being treated with Victoza and basal-bolus insulin with poor glycemic control and no known microvascular or macrovascular complications. Plan is consider switching the Victoza to Mounjaro 2.5 mg Qwkly . If glycemic control does not improve after switching, patient is considering an iLet pump which could be used with the Mounjaro . Went over side effects of Mounjaro including but not limited to nausea, vomiting rare risk of pancreatitis Orders: Orders AMB Hemoglobin A1c Today E11.9 - Type 2 diabetes mellitus without complications, Z13.9 - Encounter for screening, unspecified Medications: New tirzepatide (Mounjaro) 2.5 mg (0.5 mL) subcut QWEEK 2 mL 0RF 4 weeks Coding Level of Care Code Est Pt Level 4 (50808) Diagnoses Diabetes E11.9
[2023-06-20 09:28] LABS: Glucose, Whole Blood 169 mg/dL (60-115)
== END 2023-06-20 09:59 | disposition home or self-care (01) ==
PROVIDERS: PCP Internal Medicine; Visit Provider Internal Medicine Endocrinology, Diabetes & Metabolism
DX: Z13.9 Encounter for screening, unspecified (principal); E11.9 Type 2 diabetes mellitus without complications
CPT/HCPCS: 99214

== ENCOUNTER → 2023-06-20 09:06 | Outpatient (BNVA) | payer OTHER, SELFPAY | PROVIDERS: PCP Internal Medicine; Visit Provider Internal Medicine Endocrinology, Diabetes & Metabolism | DX: E11.9 Type 2 diabetes mellitus without complications (principal); Z79.85 Long-term (current) use of injectable non-insulin antidiabetic drugs | CPT/HCPCS: 82947; 83036; 99212 ==

== ENCOUNTER 2023-06-28 12:30 | Outpatient (AMB) | payer OTHER, SELFPAY ==
--- NOTE | 2023-06-28 12:38 | A.OFFVIS_ITS ---
Intake VS Expanded 06/28/23 12:39 Height 5 ft Weight 199 lb 11.821 oz BMI 39.0 Intake Visit Reasons: DM\LVM Allergies aspirin [ASPIRIN] Allergy (Intermediate, Verified 06/20/23 09:22) GI UPSET, stomach pain latex [LATEX] Allergy (Intermediate, Verified 06/20/23 09:22) HIVES HPI Nutrition 2 Presentation Details Pt presents for MNT f/u for T2DM. Pt reports participating in meals on wheels, getting both lunch and dinner. She reports her blood glucose is elevated , 14 d bg average at 238 mg/dl/ Pt admits to consuming larger portion of foods, beverages with sugars and fritters related to various family celebrations and skipping insulin resulting in elevated blood glucose. Pt reports having dm medications at home, waiting on Mounjaro (new rx from racing secretary) Pt follows up with racing secretary and adaptive physical educator [facility]Markor Equation Height 5 ft Weight 200 lb Resting Metabolic Rate 1353.38 Calculated Activity Level Sedentary Calories Needed to Maintain Weight 1624.06 Most Recent Diabetes Results: No Data to Display [facility] Medical History (Updated 04/27/23 @ 21:42 by Abhi Benson MD) COPD exacerbation C. difficile enteritis COVID-19 DVT (deep venous thrombosis) Pulmonary hypertension Pulmonary emboli Acute on chronic respiratory failure with hypoxia and hypercapnia Chronic respiratory failure [place] (hard of hearing) PONV (postoperative nausea and vomiting) Post herpetic neuralgia Pneumonia Back pain Morbid obesity Chest crackles Cardiomegaly Asthma-COPD overlap syndrome Acute respiratory failure Hyperlipidemia Hypertension Diabetes Arnold-Chiari malformation Arthritis Fibromyalgia Cough CASSANDRA treated with BiPAP Asthma Sinusitis Surgical History Hx of eye surgery History of esophagogastroduodenoscopy (EGD) H/O colonoscopy Hx of laparoscopic gastric banding H/O bilateral breast reduction surgery H/O brain surgery Family History Mother HTN (hypertension) Breast cancer Father Primary cancer of bone marrow Social History Household Members: Other Household Members Other:: granddaughter Housing: Apartment Are you a primary director long term care to a significant other at home: No Do you presently have visiting nurse or other home services: Yes ([employer]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) Alcohol intake: never Patient Tobacco Use Status: Former Tobacco user Quit Date: Tobacco use type: Cigarette Years Smoked: 15 +/- Advance Directives Date on File: 11/11/21 Assessment & Plan Assessment & Plan (1) Diabetes: Code(s): E11.9 - Type 2 diabetes mellitus without complications Plan: ?Used wt : 90 kg Est kcal as per MSJ: 1600 (40% carb, 30% fat/prot) Est fluid needs: 2500 ml/d (25 ml/kg bw) Rec fiber: increase to 8-10 g per day and gradually increase to 25 g/d as tolerated Rec Na: < 2000 mg /d Educate patient on: (R= Reviewed, V = verbalizes understanding N/R= Needs review N/A= not applicable) * Food sources of carbohydrates and serving adequate serving sizes : R * Difference between complex carbohydrates and simple carbohydrates, role of fiber: R * Differences between fats (MUFA/PUFA/saturated fats, trans fats) and food sources of various fats: R * Lean protein sources of foods: R * Food sources of sodium and salt and healthy modifications for heart health and kidney health: R * Vitamins and minerals: N/R * How to interpret food labels: R * Healthy Plate method concept: R V * Physical activity: benefits and precaution: N/R * relationship of elevated blood glucose to heart health and chronic medical conditions: R, V Patient Instructions: Resume choosing beverages without carbohydrates - water, herbs infused beverages, low sugar beverages Resume following healthy plate method and choose healthy plate method option during celebrations Choose wisely when eating out or at celebrations, reducing total carb to less than 60 g to prevent elevated blood sugar levels Take diabetes medications as prescribed by your doctor. Coding Level of Care Code Nutr Indiv Subseq (57626) Diagnoses Diabetes E11.9 Time Spent (min) 25
[2023-06-28 12:39] VITALS: BMI 39.0
[2023-07-03 13:15] VITALS: BMI 39.1
== END 2023-06-28 12:59 | disposition home or self-care (01) ==
PROVIDERS: PCP Internal Medicine; Visit Provider Dietitian, Registered
DX: E11.9 Type 2 diabetes mellitus without complications (principal)

== ENCOUNTER → 2023-06-28 12:30 | Outpatient (BNVA) | payer OTHER, SELFPAY | PROVIDERS: PCP Internal Medicine; Visit Provider Dietitian, Registered | DX: E11.9 Type 2 diabetes mellitus without complications (principal) | CPT/HCPCS: 97803 ==

== ENCOUNTER 2023-07-06 13:16 | Outpatient (AMB) | payer OTHER, SELFPAY ==
--- NOTE | 2023-07-06 13:25 | A.OFFVIS_ITS ---
Vital Signs 07/06/23 13:27 Height 5 ft Weight 185 lb BMI 36.1 Pulse 89 Pulse Source Pulse Oximeter Pulse Oximetry (%) 96 Oxygen Delivery Method Room Air Intake Visit Reasons: Resp Failure Tool Honing Machine Set Up Operator Required: No Allergies aspirin [ASPIRIN] Allergy (Intermediate, Verified 07/06/23 13:26) GI UPSET, stomach pain latex [LATEX] Allergy (Intermediate, Verified 07/06/23 13:26) HIVES HPI Comments Details: Pleasant 72-year-old female who is here for follow-up. She has history of asthma COPD overlap syndrome, obstructive sleep apnea, hypertension and hyperlipidemia. She was seen a year ago when she presented after getting a CT scan of her chest for lung assessment which showed concern for cardiomegaly. She has advanced COPD and is supposed to be on oxygen at nighttime and with ambulation. She was complaining of some tachycardia at that time. She also complained that her saturations at times were in 80s and she had to use supplemental oxygen to bring it up. We performed an echocardiogram in May 2021 which showed vigorous LV function with EF of 60-70% without any regional wall motion abnormalities. Normal right ventricular size and function. Right ventricular systolic pressure could not be calculated. In June 2022 she got admitted to [facility] with shortness of breath and lower extremity swelling. She was diagnosed with DVT with occlusive thrombus more than 5 cm in length within the paired left peroneal veins. ECHO and CT scan reports were reviewed. Again her RV systolic pressure could not be determined. She had normal biventricular function. She had CT scan of the chest which did not show any central PE but could not rule out subsegmental PE. She was treated as if she had pulmonary emboli and has been on Xarelto since then. She was advised that she should continue it for 3 months. She is returning for follow-up after the hospital admission. She has been taking Xarelto regularly and has no bleeding concerns. She is doing better and is denying any significant chest pain or shortness of breath. She does have palpitations at nighttime which are quite consistent. No palpitations during the daytime. 09/01/2022 the patient is here for a pulmonary follow-up visit. Overall the patient has been doing little better. She is getting stronger and respiratory status is overall better. Yesterday she did get cortisone shot to her back and hands and pain discomfort. She is wondering about a portable oxygen concentrator. We will have to do a 6 minute walk test to see if she qualifies for the conserving device. She cannot do it right now. Wants to hold off till next time. In the meantime the patient did get her noninvasive ventilator for her respiratory failure. Unfortunately it has been hard for her to tolerate it. She did bring it in. I did titrate the pressure is down to see if she can tolerate it easier decreasing both the minimum pressure support and a minimum expiratory pressure. She seemed to tolerate it better. She also has noticed that when she lays flat her oxygen pulse ox decreases at home. Therefore she can increase her oxygen to 3 L while using the noninvasive ventilator will plan to perform an overnight oximetry while on the settings to make sure that she is getting adequate support and further adjustments. I did reach out to Sarah to see if they can further adjust her machine when she is situated. She continue with the current therapy. Also continues with diuresis tolerated. She will continue with the current respiratory diabetes. We will follow up between 4-6 weeks. 10/20/2022 the patient is here for pulmonary follow-up visit. Overall the patient is doing better from a respiratory status. She continues use the oxygen with good effect. She did get the noninvasive ventilator. She has had some difficulty tolerating the therapy. She is trying to use it during the daytime and also at nighttime. I did emphasize to her the importance of it specially since her CO2 is already elevated this will help improve her gas exchange and decreased hospitalizations. The patient is aware she is going to try to use it more often. She continues use her respiratory therapy with good effect. She is also using the oxygen with good effect. In the recent imaging studies of blood work to review. Her major issue is significant neuropathy and muscle weakness. I do believe that she will benefit from pulmonary rehabilitation specially if she continues to lose muscle mass she is going to be at risk for worsening respiratory failure. Therefore I am going to have her undergo PFTs and start pulmonary rehab. In addition to that she will have a neurology evaluation. 03/14/2023 the patient is here for a pulmonary follow-up visit. Overall the patient has been doing overall little better. She does continue to use the oxygen with good effect. She has a hard time with the oxygen tanks. We did try to do a walking oximetry to see if she would qualify for portable oxygen concentrator but she could not tolerate it due to significant heart rate elevations. Therefore will continue with current oxygen supplementation. In addition to that the patient was not able to use the noninvasive ventilator and she returned it. Therefore she continues to sleep with the oxygen when this is good. At least her last blood gas was some reassuring. The patient has been having hard time tolerating the Trelegy inhaler. She still has some Symbicort although she does not find that very helpful. Therefore, will go ahead and switch over to breztri. in addition to that, the patient been complaining of thrush. I do not see any on examination. I will send some nystatin mouthwash that she can use to try to prevent further thrush. We can also consider an inhaler without a cortical steroid. She is also developing some chest congestion. Therefore will treat her for that. She is status post COVID likely I postviral lower respiratory infection is starting. 04/27/2023 the patient is here for a sick visit. She has been having worsening respiratory symptoms cough chest tightness and wheezing for about 7 days. She went to an urgent Care was given doxycycline. The patient is not feeling better. Having significant coughing bouts. Moderate severity. Denies any fevers or chills. Also on arrival today her oxygen was on the lower side 91%. It did improve. During the last visit the patient could not perform walking oximetry. she will return in 3 weeks will try to do a 6 minute walk test at that time. In the meantime will go ahead and treat her with a prednisone taper. The patient will also start a 2nd antibiotic. If she has no better she will get an x-ray. 07/06/2023 the patient is here for a pulmonary follow-up visit. Overall she has feeling a lot better. She is responding well to the oxygen supplementation. She does have a portable oxygen concentrator that she uses during the daytime with activity and at rest. In addition to that she does use her oxygen at nighttime via the concentrator. The patient is planning a trip [place]. I did recommend she can call her [employer] in order to get a concentrator available for her oxygen needs. Patient continues use her respiratory therapy with good effect. the patient unfortunately was not able tolerate the noninvasive ventilator. Will go ahead and request a repeat blood gas and chest x-ray at thi s time. She has not been using her Breztri inhaler because she does not like the after taste. She has been using her albuterol couple times a day. I did provide her with a spacer that she ca n use with her Breztri in order to minimize the adverse taste. I did recommend the patient start taking the inhaler twice a day. She does cough a lot at nighttime. I do believe that the use of the inhaler prior to going to bed will be helpful. In addition to that will prescribe her benzonates. PFSH Medical History COPD exacerbation C. difficile enteritis COVID-19 DVT (deep venous thrombosis) Pulmonary hypertension Pulmonary emboli Acute on chronic respiratory failure with hypoxia and hypercapnia Chronic respiratory failure [place] (hard of hearing) PONV (postoperative nausea and vomiting) Post herpetic neuralgia Pneumonia Back pain Morbid obesity Chest crackles Cardiomegaly Asthma-COPD overlap syndrome Acute respiratory failure Hyperlipidemia Hypertension Diabetes Arnold-Chiari malformation Arthritis Fibromyalgia Cough CASSANDRA treated with BiPAP Asthma Sinusitis Surgical History Hx of eye surgery History of esophagogastroduodenoscopy (EGD) H/O colonoscopy Hx of laparoscopic gastric banding H/O bilateral breast reduction surgery H/O brain surgery Family History Mother HTN (hypertension) Breast cancer Father Primary cancer of bone marrow Social History Household Members: Other Household Members Other:: granddaughter Housing: Apartment Are you a primary care specialist to a significant other at home: No Do you presently have visiting nurse or other home services: 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) Alcohol intake: never Patient Tobacco Use Status: Former Tobacco user Quit Date: Tobacco use type: Cigarette Years Smoked: 15 +/- Advance Directives Date on File: 11/11/21 Review of Systems Const Reports daytime sleepiness and Reports weight loss Eyes Reports loss of vision ENT Reports dizziness, Reports hearing loss, Reports nasal congestion and Reports nasal discharge Card Reports leg edema, Reports lightheadedness, Reports palpitations, Reports dyspnea on exertion and Reports orthopnea Resp Reports cough, Denies hemoptysis, Reports dyspnea on exertion and Reports wheezing GI Reports heartburn and Reports vomiting Musc Reports abnormal gait, Reports atrophy, Reports arthralgias, Reports muscle weakness, Reports numbness and Denies other (Frequent falls) Skin/Breast Reports nail changes and Reports rash Neuro Reports Abnormal speech present, Reports abnormal gait, Reports dizziness, Reports loss of vision and Reports numbness Endo Reports palpitations Aller/Immun Reports wheezing Physical Exam Vital Signs: Last Vital Signs Pulse 89 07/06/23 13:27 Pulse Ox 96 07/06/23 13:27 Oxygen Delivery Method Room Air 07/06/23 13:27 BMI result Body Mass Index 36.1 Const General: comfortable and alert Limitations: wheelchair Neck Neck: Yes normal visual inspection, Yes full ROM and Yes no lymphadenopathy Chest Chest palpation & inspection: normal inspection of the chest Resp Effort & Inspection: normal respiratory effort and prolonged expiratory phase Auscultation: diminished lung sounds Cardio Rate: regular rate Rhythm: regular rhythm Heart sounds: S1 normal heart sound present and S2 normal heart sound present GI Palpation (GI): Soft to palpation Auscultation: normal bowel sounds Skin General skin exam: rashes and/or lesions noted Neuro Speech: Abnormal speech present Extrem General: Yes no clubbing, cyanosis or edema Assessment & Plan Assessment & Plan (1) Asthma-COPD overlap syndrome: Code(s): J44.9 - Chronic obstructive pulmonary disease, unspecified Category: Medical (2) Pulmonary emboli: Code(s): I26.99 - Other pulmonary embolism without acute cor pulmonale Category: Medical Qualifiers: Pulmonary embolism type: multiple subsegmental (without acute cor pulmonale) Qualified Code(s): I26.94 - Multiple subsegmental pulmonary emboli without acute cor pulmonale (3) Pulmonary hypertension: Code(s): I27.20 - Pulmonary hypertension, unspecified Category: Medical (4) DVT (deep venous thrombosis): Code(s): I82.409 - Acute embolism and thrombosis of unspecified deep veins of unspecified lower extremity Category: Medical Qualifiers: Affected thrombotic vein of extremity: unspecified vein of extremity Chronicity: unspecified DVT location: lower extremity Laterality: unspecified laterality Qualified Code(s): I82.409 - Acute embolism and thrombosis of unspecified deep veins of unspecified lower extremity (5) Chronic respiratory failure: Code(s): J96.10 - Chronic respiratory failure, unspecified whether with hypoxia or hypercapnia Category: Medical Qualifiers: Respiratory failure complication: hypoxia and hypercapnia Qualified Code(s): J96.11 - Chronic respiratory failure with hypoxia; J96.12 - Chronic respiratory failure with hypercapnia (6) Chronic restrictive lung disease: Code(s): J98.4 - Other disorders of lung Category: Medical Plan continue Oxygen 2-L/pulse with activity. POC with activity for better portability and ease. continue Breztri will try the spacer to minimize after taste nebulizer 1-2 day MISBAH as needed Fluticasone nasal spray stopped Non invasive ventilator, Astral nasal saline rinsing prior to PAP therapy Continue respiratory therapy CXR and blood gas prior to the next visit F/U 3-4 months Orders: Orders Venous Blood Gas Today J98.4 - Other disorders of lung XR chest 2V Today J98.4 - Other disorders of lung Medications: New benzonatate 200 mg PO BID PRN 60 caps 0RF cough 30 days Coding Level of Care Code Est Pt Level 4 (34933) Diagnoses Asthma-COPD overlap syndrome J44.9 Multiple subsegmental pulmonary emboli without acute cor pulmonale I26.94 Pulmonary embolism type: multiple subsegmental (without acute cor pulmonale) Pulmonary hypertension I27.20 Deep vein thrombosis (DVT) of lower extremity, unspecified chronicity, unspecified laterality, unspecified vein I82.409 Affected thrombotic vein of extremity: unspecified vein of extremity Chronicity: unspecified DVT location: lower extremity Laterality: unspecified laterality Chronic respiratory failure with hypoxia and hypercapnia J96.11; J96.12 Respiratory failure complication: hypoxia and hypercapnia Chronic restrictive lung disease J98.4 Time Spent (min) 17
[2023-07-06 13:27] VITALS: PULSE 89; O2SAT 96; BMI 36.1
== END 2023-07-06 13:45 | disposition home or self-care (01) ==
PROVIDERS: PCP Internal Medicine; Visit Provider Hospitalist
DX: J44.9 Chronic obstructive pulmonary disease, unspecified (principal); I26.94 Multiple subsegmental thrombotic pulmonary emboli without acute cor pulmonale; I27.20 Pulmonary hypertension, unspecified; I82.409 Acute embolism and thrombosis of unspecified deep veins of unspecified lower extremity; J96.11 Chronic respiratory failure with hypoxia; J96.12 Chronic respiratory failure with hypercapnia; J98.4 Other disorders of lung
CPT/HCPCS: 99214

== ENCOUNTER 2023-07-06 13:16 | Outpatient (REF) | payer OTHER, SELFPAY ==
--- NOTE | ~2023-07-06 | XR_ITS ---
EXAMINATION: XR CHEST CLINICAL INFORMATION: Other disorders of lungs. COMPARISON: 01/17/2023. TECHNIQUE: 2 views of the chest were obtained. FINDINGS: There is no gross pneumothorax. Dextroscoliosis of the thoracic spine with multilevel degenerative changes. Cardiac silhouette remains enlarged. Redemonstration of old left third rib fracture. No significant pleural effusion. No new focal consolidation to suggest pneumonia. XR/XR chest 2V IMPRESSION: 1. No evidence of pneumonia. 2. Cardiac silhouette remains enlarged.
[2023-07-06 14:27] LABS: MANUAL DIFF FLAG NO
[2023-07-06 14:29] LABS: Basophils Absolute Auto 0.1 X10*3/uL (0.0-0.2); Basophils Percent Auto 0.4 % (0-2); Eosinophils Absolute Auto 0.1 X10*3/uL (0.0-0.4); Eosinophils Percent Auto 0.8 % (0-4); Hematocrit 41.5 % (37.0-47.0); Hemoglobin 13.6 g/dl (12.0-16.0); Imm Gran Abs Auto 0.06 X10*3/uL (0.00-0.03); Imm Gran Pct Auto 0.4 % (0.0-0.4); Lymphocytes Percent Auto 22.8 % (20-40); Mean Corpuscular HGB Conc 32.8 g/dl (31.0-35.0); Mean Corpuscular Hemoglobin 30.4 pg (27.0-33.0); Mean Corpuscular Volume 92.8 fL (80.0-98.0); Mean Platelet Volume 9.2 fL (9.4-12.3); Monocytes Absolute Auto 0.9 X10*3/uL (0.1-1.2); Monocytes Percent Auto 6.8 % (2-11); Neutrophils Absolute Auto 9.2 x10*3/uL (2.0-8.3); Neutrophils Percent Auto 68.8 % (45-73); Platelet Count 235 X10*3/uL (160-400); Red Blood Count 4.47 X10*6/uL (4.20-5.50); Red Cell Distribution Width 14.2 % (11.0-16.0); White Blood Count 13.4 X10*3/uL (4.8-10.8)
[2023-07-06 14:31] LABS: Venous Blood Gas Refer to POC result
[2023-07-06 14:33] LABS: VBG Base Excess -0.7 mmol/L; VBG HCO3 23 mmol/L (22-26); VBG pCO2 37 mmHg; VBG pO2 38 mmHg
[2023-07-06 14:42] LABS: Anion Gap 17 (12-20); Blood Urea Nitrogen 27 mg/dL (9-16); Calcium 9.9 mg/dL (8.4-10.2); Carbon Dioxide 18 mmol/L (22-29); Chloride 106 mmol/L (96-108); Estimated Glomerular Filt Rate 54; Glucose Random 174 mg/dL (60-115); Potassium 4.7 mmol/L (3.3-5.1); Sodium 136 mmol/L (135-145)
[2023-07-06 15:17] LABS: Erythrocyte Sedimentation Rate 12 MM/HR (0-20)
== END 2023-07-06 13:17 | disposition home or self-care (01) ==
LOC: HO.XRAY 13:16
PROVIDERS: PCP Internal Medicine; Visit Provider Hospitalist
DX: J96.11 Chronic respiratory failure with hypoxia (principal); J96.12 Chronic respiratory failure with hypercapnia; J98.4 Other disorders of lung; J44.9 Chronic obstructive pulmonary disease, unspecified; I26.94 Multiple subsegmental thrombotic pulmonary emboli without acute cor pulmonale; I27.20 Pulmonary hypertension, unspecified
CPT/HCPCS: 36415; 71046; 80048; 82803; 85025; 85652; 99212

== ENCOUNTER → 2023-07-10 10:20 | Outpatient (BNV) | payer OTHER, SELFPAY | PROVIDERS: PCP Internal Medicine; Referring Provider Family Medicine; Visit Provider Internal Medicine Medical Oncology | DX: Z86.718 Personal history of other venous thrombosis and embolism (principal) | CPT/HCPCS: 99204 ==

== ENCOUNTER 2023-07-24 11:23 | Outpatient (AMB) | payer OTHER, SELFPAY ==
--- NOTE | 2023-07-24 11:27 | A.OFFVIS_ITS ---
Intake Vital Signs 07/24/23 11:28 Weight 198 lb Intake Visit Reasons: T2DM/CONFIRMED Enterprise Application Administrator Required: No Accompanied by: Self / Same As Patient Allergies aspirin [ASPIRIN] Allergy (Intermediate, Verified 07/06/23 13:26) GI UPSET, stomach pain latex [LATEX] Allergy (Intermediate, Verified 07/06/23 13:26) HIVES HPI Comprehensive Diabetes Asmnt Most Recent Diabetes Results: Microalb/Creat Ratio 16.5 ug/mg cr 09/01/22 Cholesterol 155 mg/dL 09/01/22 HDL Cholesterol 61 mg/dL 09/01/22 Triglycerides 89 mg/dL 09/01/22 Creatinine 1.01 mg/dL (0.5-1.4) 07/06/23 Blood Urea Nitrogen 27 mg/dL (9-16) H 07/06/23 Sodium 136 mmol/L (135-145) 07/06/23 Potassium 4.7 mmol/L (3.3-5.1) 07/06/23 Chloride 106 mmol/L (96-108) 07/06/23 Carbon Dioxide 18 mmol/L (22-29) L 07/06/23 Calcium 9.9 mg/dL (8.4-10.2) 07/06/23 AST 15 U/L (5-31) 01/17/23 ALT 12 U/L (0-31) 01/17/23 Total Protein 5.9 g/dL (6.5-8.0) L 01/17/23 Albumin 3.3 g/dL (3.5-5.0) L 01/17/23 PFSH Medical History (Updated 07/10/23 @ 11:52 by Juancho Turcios MD) COPD exacerbation C. difficile enteritis COVID-19 DVT (deep venous thrombosis) Pulmonary hypertension Pulmonary emboli Acute on chronic respiratory failure with hypoxia and hypercapnia Chronic respiratory failure [place] (hard of hearing) PONV (postoperative nausea and vomiting) Post herpetic neuralgia Pneumonia Back pain Morbid obesity Chest crackles Cardiomegaly Asthma-COPD overlap syndrome Acute respiratory failure Hyperlipidemia Hypertension Diabetes Arnold-Chiari malformation Arthritis Fibromyalgia Cough CASSANDRA treated with BiPAP Asthma Sinusitis Surgical History Hx of eye surgery History of esophagogastroduodenoscopy (EGD) H/O colonoscopy Hx of laparoscopic gastric banding H/O bilateral breast reduction surgery H/O brain surgery Family History Mother HTN (hypertension) Breast cancer Father Primary cancer of bone marrow Social History Household Members: Other Household Members Other:: granddaughter Housing: Apartment Are you a primary patient care coordinator to a significant other at home: No Do you presently have visiting nurse or 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 checks BG with DexPersonal Development Bureau G7 Downloaded meter today? Patient did not bring to today's visit Patient? reports glycemic control as: Fair Most recent Hgb A1C: 8.7% Frequency of low B time weekly Low BG treatment: Juice or glucose tabs Frequency of high BG: daily Does patient check Ketones? No Has pt been on a pump in the past? No Reviewed insulin pump basics today with Patient. Explained pros and cons of insulin pumps. Showed pt various pumps, infusion sets, and cgms currently available. Reviewed need to wear pump 24/7 and need to change infusion set every 3 days. Also stressed importance of frequent BG checks, 4x daily minimum or use pump that is integrated with CGM.? TDD:100 units Patient demonstrated motivation for continued insulin pump education and understands the need to complete education prior to starting insulin pump for best outcome. Will follow up for continued education. Patient Instructions: Patient will call when she receives insulin pump for insulin pump training appointment Coding Level of Care Code Est Pt Level 1 (93344) Diagnoses Diabetes E11.9
== END 2023-07-24 12:08 | disposition home or self-care (01) ==
PROVIDERS: PCP Internal Medicine; Visit Provider Registered Nurse Diabetes Educator
DX: E11.9 Type 2 diabetes mellitus without complications (principal)

== ENCOUNTER → 2023-07-24 11:23 | Outpatient (BNVA) | payer OTHER, SELFPAY | PROVIDERS: PCP Internal Medicine; Visit Provider Registered Nurse Diabetes Educator | DX: E11.9 Type 2 diabetes mellitus without complications (principal); Z79.4 Long term (current) use of insulin; Z96.41 Presence of insulin pump (external) (internal) | CPT/HCPCS: 99211 ==

== ENCOUNTER 2023-08-02 10:24 | Outpatient (REF) | payer OTHER, SELFPAY ==
[2023-08-02 12:33] LABS: Glucose Fasting 169 mg/dL (60-99)
[2023-08-04 04:09] LABS: C Peptide 5.12 ng/mL (0.80-3.85)
== END 2023-08-02 10:25 | disposition home or self-care (01) ==
LOC: HO.LAB 10:24
PROVIDERS: PCP Family Medicine; Visit Provider Internal Medicine Endocrinology, Diabetes & Metabolism
DX: E11.9 Type 2 diabetes mellitus without complications (principal); Z79.4 Long term (current) use of insulin
CPT/HCPCS: 36415; 82947; 84681; 99212

== ENCOUNTER 2023-08-02 10:53 | Outpatient (AMB) | payer OTHER, SELFPAY ==
[2023-08-02 11:10] VITALS: BP 134/68; PULSE 108; O2SAT 64; BMI 38.0
--- NOTE | 2023-08-02 11:10 | MHC.OFFVIS ---
Vital Signs 08/02/23 11:10 Height 5 ft Weight 194 lb 7.163 oz BMI 38.0 BP 134/68 Blood Pressure Location Lt brachial Position Sitting Pulse 108 H Pulse Source Pulse Oximeter Pulse Oximetry (%) 64 L Intake Visit Reasons: dm Intake Note: Patient presents today to follow up on D2MT. Last Diabetic Eye exam: 08/2022 Last Podiatry Visit:Doen't have one Random Glucose: 165 mg/dl HgA1c: 8.7% 06/20/23 Certified Alcohol And Drug Counselor Required: No Accompanied by: Self / Same As Patient Allergies aspirin [ASPIRIN] Allergy (Intermediate, Verified 08/02/23 11:15) GI UPSET, stomach pain latex [LATEX] Allergy (Intermediate, Verified 08/02/23 11:15) HIVES HPI Comments Details: 72 YO F who is seen in consultation for T2DM at the request of PCP. Initially diagnosed with T2DM in >10 yrs . Saw allyson before Dr. Lyons at [facility] Was initially started on treatment with metformin.Stopped because couldn't swallow Current regimen Mounjaro 2.5 mg Qwkly Lantus 10 units . Novolog 8-18 scale starting with 150-200 2 units and increase 2 units for 50 mg/DL Dexcom download shows she is using the sensor 98% of the time. Average glucose is 171 with GMI of 7.4 standard deviation of 57. 61% range with 38% hyperglycemia 1 % hypoglycemia. some hypoglycemia overnight Reports low sugars overnight . Treats lows with eats sugar . Checks sugar after to ensure it is rising. Treats according to rule of 15's. Has a glucagon rescue kit at home . Family history of T2DM in maternal grandmother, cousins , aunt, sister . Has eyes checked yearly, last eye exam has appt tomorrow , has appt with optho next wk Has retinopathy. Has neuropathy, sees podiatry. Denies nephropathy, on OSITO/ARB. . Has HLD, on statin. Last LDL Denies CAD. Not Had diabetes education. Was on prednisone taper - now off PFSH Medical History (Updated 07/10/23 @ 11:52 by Juancho Turcios MD) COPD exacerbation C. difficile enteritis COVID-19 DVT (deep venous thrombosis) Pulmonary hypertension Pulmonary emboli Acute on chronic respiratory failure with hypoxia and hypercapnia Chronic respiratory failure [place] (hard of hearing) PONV (postoperative nausea and vomiting) Post herpetic neuralgia Pneumonia Back pain Morbid obesity Chest crackles Cardiomegaly Asthma-COPD overlap syndrome Acute respiratory failure Hyperlipidemia Hypertension Diabetes Arnold-Chiari malformation Arthritis Fibromyalgia Cough CASSANDRA treated with BiPAP Asthma Sinusitis Surgical History Hx of eye surgery History of esophagogastroduodenoscopy (EGD) H/O colonoscopy Hx of laparoscopic gastric banding H/O bilateral breast reduction surgery H/O brain surgery Family History Mother HTN (hypertension) Breast cancer Father Primary cancer of bone marrow Social History Household Members: Other Household Members Other:: granddaughter Housing: Apartment Are you a primary family day care worker to a significant other at home: No Do you presently have visiting nurse or other home services: 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 Absence of acromegalic features. Neck exam reveals nl size thyroid about 15 gms. No thyroid nodules palpable. No carotid bruits present. Lungs CTA. Heart S1 S2, Reg R/R. No M/R/ G. Skin exam reveals absence of vitiligo or acanthosis nigricans. Abdominal exam reveals Soft NT/ND with NA BS. No organomegaly present. Neck Other: . Extrem Other: Visual exam of foot performed. No ulcerations or open lesions. No onchomycosis, no callouses.Pulses 2 + distally Sensation intact to monofilament exam. Vibratory sensation sensed is decreased with 128 Hz tuning fork Assessment & Plan Assessment & Plan (1) Diabetes: Code(s): E11.9 - Type 2 diabetes mellitus without complications Category: Medical Plan: This is a 72-year-old female with a history of type 2 diabetes being treated with Mounjaro and basal -bolus insu eleanor with poor glycemic control and no known microvascular or macrovascular complications. Having significant hypoglycemia overnight Plan is to decrease Lantus to 8 units Patient has had poor glycemic control despite use of multiple G LP -1 including Mounjaro and would benefit greatly from the use of an insulin pump namely iLet pump. Is therefore medically necessary to institute this pump for glycemic control this patient. Will check fasting glucose and C-peptide level Coding Level of Care Code Est Pt Level 4 (41822) Diagnoses Diabetes E11.9
[2023-08-02 11:24] LABS: Glucose, Whole Blood 165 mg/dL (60-115)
== END 2023-08-02 11:50 | disposition home or self-care (01) ==
PROVIDERS: PCP Internal Medicine; Visit Provider Internal Medicine Endocrinology, Diabetes & Metabolism
DX: E11.9 Type 2 diabetes mellitus without complications (principal)
CPT/HCPCS: 99214

== ENCOUNTER 2023-09-18 11:34 | Outpatient (AMB) | payer OTHER, SELFPAY ==
[2023-09-18 11:39] VITALS: BMI 32.8
--- NOTE | 2023-09-18 11:39 | A.OFFVIS_ITS ---
VS Expanded 09/18/23 11:39 09/21/23 10:20 Height 5 ft 5 ft Weight 167 lb 15.876 oz 168 lb BMI 32.8 32.8 Intake Visit Reasons: T2DM/LVM Allergies aspirin [ASPIRIN] Allergy (Intermediate, Verified 08/02/23 11:15) GI UPSET, stomach pain latex [LATEX] Allergy (Intermediate, Verified 08/02/23 11:15) HIVES Nutrition Presentation Details: Pt presents for MNT f/u for T2DM Pt presents with daughter during this appt. Pt reports having reduced appetite since starting Mounjaro in 07/2023, noted 31 lbs weight loss (comparing wt since last nutrition visit in 06/2023) Pt reports she does not eat much protein Meals consist of B: toast with butter, coffee L: rice/hayden sauce and 2 oz of chicken D: rice/root veg, cod fish onion, water snack on fruits Pt has [employer] monthly savings card BS Monitoring Most Recent Diabetes Results: No Data to Display ZGU-Auewlqn-Rt.Jeor Equation Height: 5 ft Weight: 168 lb Resting Metabolic Rate: 1203.45 Calculated Activity Level: Sedentary Calories Needed to Maintain Weight: 1444.14 PFSH Medical History (Updated 07/10/23 @ 11:52 by Juancho Turcios MD) COPD exacerbation C. difficile enteritis COVID-19 DVT (deep venous thrombosis) Pulmonary hypertension Pulmonary emboli Acute on chronic respiratory failure with hypoxia and hypercapnia Chronic respiratory failure [place] (hard of hearing) PONV (postoperative nausea and vomiting) Post herpetic neuralgia Pneumonia Back pain Morbid obesity Chest crackles Cardiomegaly Asthma-COPD overlap syndrome Acute respiratory failure Hyperlipidemia Hypertension Diabetes Arnold-Chiari malformation Arthritis Fibromyalgia Cough CASSANDRA treated with BiPAP Asthma Sinusitis Surgical History Hx of eye surgery History of esophagogastroduodenoscopy (EGD) H/O colonoscopy Hx of laparoscopic gastric banding H/O bilateral breast reduction surgery H/O brain surgery Family History Mother HTN (hypertension) Breast cancer Father Primary cancer of bone marrow Social History Household Members: Other Household Members Other:: granddaughter Housing: Apartment Are you a primary care services manager to a significant other at home: No Do you presently have 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) Alcohol intake: never Patient Tobacco Use Status: Former Tobacco user Tobacco use type: Cigarette Years Smoked: 15 +/- Advance Directives Date on File: 11/11/21 Assessment & Plan Assessment & Plan (1) Diabetes: Code(s): E11.9 - Type 2 diabetes mellitus without complications Category: Medical Plan: ?Used wt : 90 kg (06/27), 76 kg (09/2023) Est kcal as per MSJ: 1600 (40% carb, 30% fat/prot) Est fluid needs: 2500 ml/d (25 ml/kg bw) Rec fiber: increase to 8-10 g per day and gradually increase to 25 g/d as tolerated Rec Na: < 2000 mg /d Educate patient on: (R= Reviewed, V = verbalizes understanding N/R= Needs review N/A= not applicable) * Food sources of carbohydrates and serving adequate serving sizes : R * Difference between complex carbohydrates and simple carbohydrates, role of fiber: R * Differences between fats (MUFA/PUFA/saturated fats, trans fats) and food sources of various fats: R * Lean protein sources of foods: R, V * nutritional supplement: R * Food sources of sodium and salt and healthy modifications for heart health and kidney health: R * Vitamins and minerals: N/R * How to interpret food labels: R * Healthy Plate method concept: R V * Physical activity: benefits and precaution: N/R * Patient Instructions: Have once protein shake a day (high protein glucerna ) as a snack in between meals Work on including 2 oz of protein at breakfast and 2-3oz at lunch (2 eggs, 1/2 can of tuna , 3-4 baked shrimp, 1 c oikos yogurt as example) Snack on 1 cup of milk or yogurt Coding Level of Care Code Nutr Indiv Subseq (29596) Diagnoses Diabetes E11.9 Time Spent (min) 20
[2023-09-21 10:20] VITALS: BMI 32.8
== END 2023-09-18 12:08 | disposition home or self-care (01) ==
PROVIDERS: PCP Family Medicine; Visit Provider Dietitian, Registered
DX: E11.9 Type 2 diabetes mellitus without complications (principal)

== ENCOUNTER → 2023-09-18 11:34 | Outpatient (BNVA) | payer OTHER, SELFPAY | PROVIDERS: PCP Family Medicine; Visit Provider Dietitian, Registered | DX: E11.9 Type 2 diabetes mellitus without complications (principal) | CPT/HCPCS: 97803 ==

== ENCOUNTER 2023-09-21 10:51 | Outpatient (REF) | payer OTHER, SELFPAY ==
[2023-09-21 12:51] LABS: Appearance Urine Cloudy; Color Urine Dark Yellow; Glucose Urine UA Negative (Negative); Leukocyte Esterase Urine Small (1+) (Negative); Nitrite Urine Negative (Negative); PH 5.5 (5.0-9.0); Specific Gravity - Urine >= 1.030 (1.005-1.025); UMIC TRIGGER UA YES; Urine Blood Small (1+) (Negative); Urine Ketones Trace mg/dL (Negative); Urine Protein 30 (1+) mg/dL (Neg-Trace)
[2023-09-21 13:01] LABS: Bacteria Urine 2+ (None Seen); RBC Urine 0-2 /HPF (0-2); Squamous Epithelial Cell Urine >20 /HPF (0-2); WBC Urine 21-50 /HPF (0-5)
== END 2023-09-21 10:52 | disposition home or self-care (01) ==
LOC: HO.LAB 10:51
PROVIDERS: PCP Internal Medicine; Visit Provider Physician Assistant
DX: R30.0 Dysuria (principal)
CPT/HCPCS: 81001; 87086; 87088; 87186

== ENCOUNTER 2023-10-04 14:19 | Outpatient (AMB) | payer OTHER, SELFPAY ==
--- NOTE | 2023-10-04 16:08 | A.OFFVIS_ITS ---
Intake Intake Visit Reasons: T2DM Allergies aspirin [ASPIRIN] Allergy (Intermediate, Verified 08/02/23 11:15) GI UPSET, stomach pain latex [LATEX] Allergy (Intermediate, Verified 08/02/23 11:15) HIVES HPI Comprehensive Diabetes Asmnt Most Recent Diabetes Results: No Data to Display [facility] Medical History (Updated 07/10/23 @ 11:52 by Juancho Turcios MD) COPD exacerbation C. difficile enteritis COVID-19 DVT (deep venous thrombosis) Pulmonary hypertension Pulmonary emboli Acute on chronic respiratory failure with hypoxia and hypercapnia Chronic respiratory failure [place] (hard of hearing) PONV (postoperative nausea and vomiting) Post herpetic neuralgia Pneumonia Back pain Morbid obesity Chest crackles Cardiomegaly Asthma-COPD overlap syndrome Acute respiratory failure Hyperlipidemia Hypertension Diabetes Arnold-Chiari malformation Arthritis Fibromyalgia Cough CASSANDRA treated with BiPAP Asthma Sinusitis Surgical History Hx of eye surgery History of esophagogastroduodenoscopy (EGD) H/O colonoscopy Hx of laparoscopic gastric banding H/O bilateral breast reduction surgery H/O brain surgery Family History Mother HTN (hypertension) Breast cancer Father Primary cancer of bone marrow Social History Household Members: Other Household Members Other:: granddaughter Housing: Apartment Are you a primary wild animal caretaker to a significant other at home: No Do you 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 The following topics were reviewed today: -Pump therapy basic concepts: Basal/bolus -Device settings: Bluetooth/mobile connection (if applicable), correct date and time, sound volume -CGM settings(if integrated system): CGM graft views and trend arrows, alerts and alarms, Start new sensor Insulin delivery settings Instructed patient to only use room temperature insulin, how to load cartridge or fill pod, with insulin. Fill tubing and cannula (if applicable) Inserting infusion set or starting pod Troubleshooting after starting new pod or inserting new insulin set: Occlusion, adhesive tape sensitivity, redness Check BG 2 hours after site change Safety information: Importance of a backup plan, for manual injections, proper prescriptions and emergency supplies ketone strips, and rules for testing for ketones Patient was able to insert insulin set today without difficulty. Patient understands the basic concepts of pump therapy, how to give insulin for meals and snacks, how to troubleshoot for hyper and hypoglycemia. Patient will follow up with CDE as instructed Patient will contact CDE with questions or concerns, patient given IT number to support in any technical issues related to insulin pump Portions of this note were created using voice recognition software, please excuse any words or phrases that may have been misinterpreted. Coding Level of Care Code Est Pt Level 1 (39319) Diagnoses Diabetes E11.9
== END 2023-10-04 16:11 | disposition home or self-care (01) ==
PROVIDERS: PCP Family Medicine; Visit Provider Registered Nurse Diabetes Educator
DX: E11.9 Type 2 diabetes mellitus without complications (principal)

== ENCOUNTER → 2023-10-04 14:19 | Outpatient (BNVA) | payer OTHER, SELFPAY | PROVIDERS: PCP Family Medicine; Visit Provider Registered Nurse Diabetes Educator | DX: E11.9 Type 2 diabetes mellitus without complications (principal) | CPT/HCPCS: 99211 ==

== ENCOUNTER 2023-10-09 16:27 | Outpatient (AMB) | payer OTHER, SELFPAY ==
--- NOTE | 2023-10-09 17:10 | A.OFFVIS_ITS ---
Intake Intake Visit Reasons: DM/confirmed [place] Targeting Supervisor Required: No Accompanied by: Self / Same As Patient Allergies aspirin [ASPIRIN] Allergy (Intermediate, Verified 08/02/23 11:15) GI UPSET, stomach pain latex [LATEX] Allergy (Intermediate, Verified 08/02/23 11:15) HIVES HPI Comprehensive Diabetes Asmnt Most Recent Diabetes Results: No Data to Display PFSH Medical History (Updated 07/10/23 @ 11:52 by Juancho Turcios MD) COPD exacerbation C. difficile enteritis COVID-19 DVT (deep venous thrombosis) Pulmonary hypertension Pulmonary emboli Acute on chronic respiratory failure with hypoxia and hypercapnia Chronic respiratory failure [place] (hard of hearing) PONV (postoperative nausea and vomiting) Post herpetic neuralgia Pneumonia Back pain Morbid obesity Chest crackles Cardiomegaly Asthma-COPD overlap syndrome Acute respiratory failure Hyperlipidemia Hypertension Diabetes Arnold-Chiari malformation Arthritis Fibromyalgia Cough CASSANDRA treated with BiPAP Asthma Sinusitis Surgical History Hx of eye surgery History of esophagogastroduodenoscopy (EGD) H/O colonoscopy Hx of laparoscopic gastric banding H/O bilateral breast reduction surgery H/O brain surgery Family History Mother HTN (hypertension) Breast cancer Father Primary cancer of bone marrow Social History Household Members: Other Household Members Other:: granddaughter Housing: Apartment Are you a primary special needs caregiver to a significant other at home: No Do you presently have 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 Patient reported that insulin delivery set slipped out after 2 days, came to appointment with out insulin pump attached. Patient reported she was using MDI over the weekend while not using insulin pump The following topics were reviewed today: -Connecting sensor to iLet -Always dose 15 minutes prior to meals - Off pump backup insulin plan ??? High Alert: 300 mg/dl ??? Low Alert: 75 mg/dl CGM : Above target 25.2% At target 74.8% Below target 0% TDD:23.7 Average glucose while wearing the pump approximately 3 days 155 mg/dL Reviewed with patient the importance of announcing meal with carbohydrate 15 minutes before eating Instructed patient to only use room temperature insulin, Reviewed how to load cartridge or fill pod, with insulin. Fill tubing and cannula Troubleshooting after starting new pod or inserting new insulin set: Occlusion, adhesive tape sensitivity, redness Check BG 2 hours after site change Reviewed Safety information: Importance of a backup plan, for manual injections, proper prescriptions and emergency supplies ketone strips, and rules for testing for ketones Patient understands the basic concepts of pump therapy, how to give insulin for meals and snacks, how to troubleshoot for hyper and hypoglycemia. Patient will follow up with [facility] as instructed Patient will contact [facility] with questions or concerns, patient given IT number to support in any technical issues related to insulin pump Portions of this note were created using voice recognition software, please excuse any words or phrases that may have been misinterpreted. Patient Instructions: Patient will follow-up with asthma educator in 2 weeks Coding Level of Care Code Est Pt Level 1 (35831) Diagnoses Diabetes E11.9
== END 2023-10-09 17:11 | disposition home or self-care (01) ==
PROVIDERS: PCP Family Medicine; Visit Provider Registered Nurse Diabetes Educator
DX: E11.9 Type 2 diabetes mellitus without complications (principal)

== ENCOUNTER → 2023-10-09 16:27 | Outpatient (BNVA) | payer OTHER, SELFPAY | PROVIDERS: PCP Family Medicine; Visit Provider Registered Nurse Diabetes Educator | DX: E11.9 Type 2 diabetes mellitus without complications (principal) | CPT/HCPCS: 99211 ==

== ENCOUNTER 2023-10-16 09:24 | Emergency (ER) | payer OTHER, SELFPAY ==
--- NOTE | ~2023-10-16 | XR_ITS ---
EXAMINATION: XR CHEST CLINICAL INFORMATION: Altered. COMPARISON: Chest radiograph dated 07/06/2023. TECHNIQUE: Frontal view of the chest was obtained. FINDINGS: Hypoinflation of the lungs with mild bibasilar atelectasis versus early infiltrates, new when compared to the prior examination. No pleural effusion or pneumothorax. Stable cardiomediastinal silhouette. XR/XR chest 1V IMPRESSION: Hypoinflation of the lungs with mild bibasilar atelectasis versus early infiltrates, new when compared to the prior examination.
--- NOTE | ~2023-10-16 | CT_ITS ---
EXAMINATION: CT HEAD WITHOUT CONTRAST CLINICAL INFORMATION: Altered COMPARISON: CT abdomen from 12/23/2022 TECHNIQUE: Contiguous axial imaging was performed from the skull base to vertex without intravenous administration of contrast. This CT examination was performed using dose optimization techniques as appropriate, variously including the following: *Automated exposure control *Adjustment of mA and/or kV according to patient size (this includes techniques or standardized protocols for targeted exams where dose is matched to indication/reason for exam; i.e. extremities or head) *Use of iterative reconstruction technique DLP: 779 mGy-cm FINDINGS: There is no evidence of acute intracranial hemorrhage or territorial infarction. Low-lying cerebellar tonsils. Status post posterior decompressive suboccipital craniotomy. Chronic white matter small vessel ischemic changes. No abnormal mass effect or midline shift is seen. Addison to white matter differentiation is well preserved. No extra-axial fluid collections are identified. The ventricles are normal in size. There is no abnormal attenuation within the brain parenchyma. Versus frontalis interna. The osseous structures and soft tissues are normal. The mastoid air cells and visualized portions of the paranasal sinuses are well aerated. CT/CT head/brain wo IV con IMPRESSION: 1. No acute intracranial pathology. 2. Low-lying cerebellar tonsils. 3. Status post decompressive suboccipital craniotomy. 4. Chronic white matter small vessel ischemic changes.
[2023-10-16 09:30] VITALS: BP 151/113; BP 157/90; PULSE 68; PULSE 70; RESP 16; TEMP 36.4; O2SAT 97; O2SAT 99; BMI 39.1
[2023-10-16 09:42] VITALS: BP 157/90; PULSE 68; RESP 16; TEMP 36.4; O2SAT 97
--- NOTE | 2023-10-16 09:46 | ED_ITS ---
HPI - General Adult General Chief complaint: Altered Mental Status Stated complaint: FAMILY STS WEAK SINCE T-1 PER EMS Time Seen by Provider: 10/16/23 09:45 Source: patient, family (granddaughter), EMS and RN notes reviewed Mode of arrival: EMS Limitations: no limitations History of Present Illness ED Provider: DIANA MAURICE PA-C HPI narrative: 73 year old female with pmhx significant for restrictive lung disease, history of C diff, pulmonary hypertension, history of DVT and PE, CASSANDRA on BiPAP, COPD on 2.5L O2 at baseline, type 2 diabetes presents to the ED today via EMS from home for evaluation of AMS and generalized weakness since 0900 his morning (1 hour ago). Per granddaughter who is at bedside to assist with history, patient woke her up this morning shaking, stating she felt very weak. Her granddaughter got up and went to make coffee and upon returning to minutes later, patient was lying on the bed sleeping. No convulsions or seizure like activity. No post-itcal state. Granddaughter concern patient was altered from baseline and called EMS. At present, patient is responsive to verbal and painful stimuli. she reports generalized weakness which began approximately 1 week ago in her LEs. She was evaluated by her PCP for this and diagnosed with atrophic muscles. Advised to take Aleve and was also prescribed baclofen 20mg for this which she began taking yesterday. Reports taking her first dose of 10mg last night. Denies headache, dizziness, chest pain, palpitations. Her only complaint at present is cough productive of yellow sputum x3 days. Also endorses UTI approximately 2 weeks ago. She completed a 5 day course of antibiotics. Admits to bladder pressure, increased urinary frequency, along with dark colored urine. Denies fever, chills, N/V, diarrhea, constipation, rashes. Related Data Home Medications ?Medication ?Instructions ?Recorded ?Confirmed duloxetine 60 mg capsule,delayed 60 mg PO DAILY 02/06/20 07/06/23 release ibuprofen 600 mg tablet 600 mg PO TID PRN Pain 02/06/20 07/06/23 lisinopril 10 mg tablet 10 mg PO DAILY 02/06/20 07/06/23 donepezil 5 mg tablet 5 mg PO BEDTIME 11/06/20 07/06/23 insulin glargine 100 unit/mL (3 54 unit subcut BEDTIME 01/05/21 07/06/23 mL) subcutaneous pen buspirone 15 mg tablet 1 tab PO BID 11/11/21 07/06/23 ipratropium bromide 21 mcg (0.03 2 spray intranasal BID 11/11/21 07/06/23 %) nasal spray ketoconazole 2 % shampoo 1 appl topical 2XW 11/11/21 07/06/23 vibegron 75 mg tablet (Gemtesa) 75 mg PO DAILY 11/11/21 07/06/23 Oxygen Home Use 01/18/22 07/06/23 meloxicam 15 mg tablet 15 mg PO DAILY 02/23/22 07/06/23 acetaminophen 500 mg tablet 650 mg PO Q6H PRN fever or pain 02/28/22 07/06/23 (Tylenol Extra Strength) pregabalin 150 mg capsule 150 mg PO DAILY 03/11/22 07/06/23 insulin aspart U-100 100 unit/mL 10 - 18 sliding scale dose subcut 06/10/22 07/06/23 (3 mL) subcutaneous pen QIDACHS lorazepam 1 mg tablet 1 mg PO DAILY PRN Anxiety 08/03/22 07/06/23 gabapentin 100 mg capsule 100 mg PO BID 08/24/22 07/06/23 trazodone 50 mg tablet 25 mg PO BEDTIME PRN Insomnia 08/24/22 07/06/23 lancets 28 gauge (FreeStyle 09/09/22 07/06/23 Lancets) montelukast 10 mg tablet 10 mg PO DAILY 09/09/22 07/06/23 aripiprazole 5 mg tablet 5 mg PO DAILY 10/11/22 07/06/23 buspirone 30 mg tablet 30 mg PO BID 10/11/22 07/06/23 clonazepam 0.5 mg tablet 0.5 mg PO BID PRN anxiety 10/11/22 07/06/23 darifenacin 15 mg tablet,extended 15 mg PO DAILY 10/11/22 07/06/23 release 24 hr zolpidem 10 mg tablet 10 mg PO BEDTIME PRN Insomnia 10/11/22 07/06/23 nebulizers 03/14/23 07/06/23 fluticasone fur. 200 mcg-umeclid 1 ea inhalation DAILY 04/27/23 07/06/23 62.5 mcg-vilant 25 mcg inhalat.powder (Trelegy Ellipta) atorvastatin 40 mg tablet 40 mg PO DAILY 05/15/23 07/06/23 metformin 1,000 mg tablet 1,000 mg PO BID 05/15/23 07/06/23 Previous Rx's ?Medication ?Instructions ?Recorded walker #1 ea 07/12/20 tiotropium bromide 2.5 2 puff inhalation DAILY 30 days #4 03/18/21 mcg/actuation mist for inhalation grams (Spiriva Respimat) lidocaine 5 % topical patch 1 patch topical DAILY 30 days #30 01/19/22 (Lidoderm) ea albuterol sulfate 90 mcg/actuation 2 puff PO QID #8.5 grams 02/04/22 aerosol inhaler nystatin 100,000 unit/gram topical 1 appl topical BID #30 grams 05/27/22 powder glucagon 3 mg/actuation nasal 3 mg intranasal ONCE #2 ea 09/09/22 spray (Baqsimi) diabetic shoes #1 ea 09/12/22 roflumilast 250 mcg tablet 250 mcg PO DAILY #30 tabs 09/27/22 blood-glucose meter,continuous #1 ea 11/29/22 (Dexcom G7 Salvage Determiner) blood-glucose sensor (Dexcom G7 #3 ea 12/05/22 Sensor device) tramadol 50 mg tablet 50 mg PO Q6H PRN severe pain 12/23/22 (scale score 7-10) #12 tabs blood-glucose transmitter (Dexcom #1 ea 12/30/22 G6 Transmitter device) peg 3350-electrolytes 236 240 ml PO Q10M #4,000 mL 12/30/22 gram-22.74 gram-6.74 gram-5.86 gram solution albuterol sulfate 2.5 mg/3 mL 2.5 mg (3 mL) inhalation Q4-6H PRN 03/10/23 (0.083 %) solution for nebulization for wheezing #180 mL budesonide 160 mcg-glycopyr 9 2 inh inhalation BID #10.7 grams 03/14/23 mcg-formot 4.8 mcg/actuation HFA inhaler (Breztri Aerosphere) nystatin 100,000 unit/mL oral 1 ml buccal BID 30 days #60 mL 03/14/23 suspension fluconazole 100 mg tablet 100 mg PO DAILY 10 days #10 tabs 04/27/23 nystatin 100,000 unit/mL oral 1 ml PO BID 30 days #60 mL 04/27/23 suspension pen needle, diabetic 31 gauge x #100 ea 05/30/23/ (BD Ultra-Fine Short Pen Needle) blood sugar diagnostic (FreeStyle #50 ea 06/15/23 Lite Strips) blood-glucose meter (FreeStyle #1 ea 06/15/23 Lite Meter kit) benzonatate 200 mg capsule 200 mg PO BID PRN cough 30 days 07/21/23 #60 caps acetone (urine) test (Ketostix #50 ea 07/24/23 strips) tirzepatide 2.5 mg/0.5 mL 2.5 mg (0.5 mL) subcut QWEEK 84 07/26/23 subcutaneous pen injector days #6 mL (Mounjaro) insulin aspart U-100 100 unit/mL See Rx Instructions subcut TID #15 08/28/23 (3 mL) subcutaneous pen (Novolog mL FlexPen U-100 Insulin aspart) gabapentin 300 mg capsule 300 mg PO BEDTIME 30 days #30 caps 09/20/23 Allergies Allergy/AdvReac Type Severity Reaction Status Date / Time aspirin [ASPIRIN] Allergy Intermediate GI UPSET, Verified 10/16/23 09:36 stomach pain latex [LATEX] Allergy Intermediate HIVES Verified 10/16/23 09:36 Review of Systems 2 Review of Systems: Constitutional: No fever, chills, fatigue, night sweats, weight changes ENT/Mouth: No ear pain, hearing loss, nasal congestion, sinus pain, rhinorrhea, sore throat Eyes: No eye pain, swelling, redness, vision changes, discharge Cardio: No chest pain, palpitations, CRUZ, orthopnea, peripheral edema Pulm: No SOB, wheezing, dyspnea, hemoptysis, +productive cough GI: No nausea, vomiting, hematemesis, abdominal pain, diarrhea, constipation, hematochezia, melena : No irregular bleeding, dysuria, frequency, urgency, hesitancy, hematuria, flank pain, urinary flow changes, urinary incontinence or retention MSK: No back pain, neck pain, joint pain, myalgias Skin: No lesions, rashes Neuro: No weakness, numbness, paresthesias, LOC, dizziness, headache, + generalized weakness Psych: No anxiety/panic, depression, SI/HI, AH/VH All other systems reviewed and are negative. [facility] Past Medical History Attestation statement: The following information was validated with the patient. Source: old records reviewed and nursing notes reviewed Medical History COPD exacerbation C. difficile enteritis COVID-19 DVT (deep venous thrombosis) Pulmonary hypertension Pulmonary emboli Acute on chronic respiratory failure with hypoxia and hypercapnia Chronic respiratory failure [place] (hard of hearing) PONV (postoperative nausea and vomiting) Post herpetic neuralgia Pneumonia Back pain Morbid obesity Chest crackles Cardiomegaly Asthma-COPD overlap syndrome Acute respiratory failure Hyperlipidemia Hypertension Diabetes Arnold-Chiari malformation Arthritis Fibromyalgia Cough CASSANDRA treated with BiPAP Asthma Sinusitis Surgical History Hx of eye surgery History of esophagogastroduodenoscopy (EGD) H/O colonoscopy Hx of laparoscopic gastric banding H/O bilateral breast reduction surgery H/O brain surgery Family History Family History Mother HTN (hypertension) Breast cancer Father Primary cancer of bone marrow Social History Social History Household Members: Other Household Members Other:: granddaughter Housing: Apartment Are you a primary primary care physician to a significant other at home: No Do you presently have visiting nurse or other home services: Yes ([employer]) Alcohol intake: never Patient Tobacco Use Status: Former Tobacco user Tobacco use type: Cigarette Years Smoked: 15 +/- Smoked in Last 30 Days: No Advance Directives: Yes Advance Directives on File: Yes Advance Directives Date on File: 11/11/21 Do you have a plan to hurt others: No Plan Physical Exam ED Vital Signs: Vital Signs - 24 hr 10/16/23 09:30 10/16/23 09:42 10/16/23 12:38 Temperature 97.5 F 97.5 F 97.6 F Pulse Rate 68 68 70 Respiratory Rate 16 16 20 Blood Pressure 157/90 H 157/90 H 118/67 Pulse Oximetry 97 97 Oxygen Delivery Method Nasal Cannula Nasal Cannula Nasal Cannula Oxygen Flow Rate 2 10/16/23 18:00 Temperature 98.1 F Pulse Rate 74 Respiratory Rate 18 Blood Pressure 135/87 Pulse Oximetry 97 Oxygen Delivery Method Nasal Cannula Oxygen Flow Rate 2 BMI result Body Mass Index 39.1 General: Patient appears drowsy however is responsive to verbal stimluli (and painful stimuli at times). Skin: Warm, dry, intact. No rashes or lesions. Head: Normocephalic, atraumatic. EENT: Hearing is intact b/l. Conjunctiva clear. Sclera is anicteric. PERRLA. EOM intact. Moist mucous membranes.? Neck: Supple without LAD. FROM. Trachea midline.? Cardiac: Chest wall symmetric. RRR. No MRG. No JVD. Lungs: Normal respiratory effort without accessory muscle use. CTA bilaterally. No rales, rhonchi, or wheezes.?on 2L O2 which is baseline. Abdomen: Soft, non-tender, non-distended. No rebound tenderness or guarding. Positive BS x4. Back: No midline spinous or paraspinal tenderness. No step off deformity. Ext: Upper and lower extremities atraumatic, without tenderness, deformity, swelling or erythema. Full ROM throughout. Capillary refill <2 seconds in all extremities. Pulses 2+ equal and bilateral. No peripheral or pedal edema. no calf tenderness. Neuro: AOx3. Normal speech. CN 2-12 grossly intact. Decreased strength noted to b/l LEs. No saddle anesthesia. Sensation intact to light touch. NV intact distally. Reflexes 2+ bilaterally. unable to assess ambulation secondary to weakness. Psych: Appropriate mood and affect. Responds appropriately to questions. Course Course Course Narrative: 1201 -- CBC without leukocytosis or left shift. No anemia. H&H stable. VBG showing low bicarb, otherwise WNL. Chemistry without acute electrolyte abnormality requiring intervention. BUN 25, creatinine 0.93. IV fluids ordered. Total CK wnl. no concern for rhabdo. Negative for covid/flu/rsv. EKG showing NSR with a rate of 69 beats per minue, QTC 438, QTC 469, no acute ischemic changes or ST elevations. There is a right bundle-branch block noted which is evident on previous EKG. > UA, CT head and CXR pending 1300-- CXR showing question infiltrate vs atelectasis. On re-evaluation, patient much more awake and alert. AOX3. Able to confirm above history. continues to endorse LE weakness and cough. Informed of CXR results. given presentation, ceftin and doxy ordered for pneumonia coverage with underlying COPD. > patient stable at the end of my shift. sign out given to michael HEADLEY pending UA, UDS, CT head and disposition Reevaluation(s) Reevaluation #1: UA without infection.. CT head no acute intracranial pathology low lying cerebellar tonsills, status post decompressive suboccipital craniotomy, chest x- ray with hyperinflation of lungs with mild basilar atelectasis versus early infiltrates due to altered mental status/weakness will start patient on antibiotics at this time. At this time patient to be placed into observation to allow more time to be evaluated by physical therapy and case management. At time observation started patient common cooperative no acute distress will continue to monitor Time: 13:29 Medications Administered Discontinued Medications Generic Name Dose Route Start Last Admin Trade Name Freq PRN Reason Stop Dose Admin Cefuroxime Axetil 500 mg 10/16/23 13:14 10/16/23 14:18 Cefuroxime Axetil 500 Mg Tablet PO 10/16/23 13:15 500 mg ONCE ONE Administration Doxycycline Monohydrate 100 mg 10/16/23 13:14 10/16/23 14:18 Doxycycline Monohydrate 100 Mg Capsule PO 10/16/23 13:15 100 mg ONCE ONE Administration Sodium Chloride 1,000 mls @ 999 mls/hr 10/16/23 12:15 10/16/23 14:11 Ns IV 10/16/23 13:15 Infused .Q1H1M [facility] Infusion Medical Decision Making Medical Decision Making MDM Narrative: 73 year old female with pmhx significant for restrictive lung disease, history of C diff, pulmonary hypertension, history of DVT and PE, CASSANDRA on BiPAP, COPD on 2.5L O2 at baseline, type 2 diabetes presents to the ED today via EMS from home for evaluation of AMS and generalized weakness since 0900 his morning (1 hour ago). Patient appears drowsy however is responsive to verbal stimuli (and painful stimuli at times). PERRLA. EOMs intact. No slurred speech or pronator drift. Sensation intact to light touch. Decreased strength noted to bilateral LEs. 2+ pt/dp pulses intact. No peripheral or pedal edema. No calf tenderness b/l. 2+ patellar DTRs intact. unable to assess ambulation d/t weakness. Differential diagnosis includes but is not limited to COPD exacerbation, viral syndrome, bronchitis, pneumonia, medication side effect, polysubstance use, UTI Plan for labs, trop, VBG, ekg, cxr, UA/UDS, viral serology, ct head/brain, re- evaluation Differential Diagnosis Differential Diagnoses: The differential diagnosis associated with the presentation includes as above. Admission/Observation Consideration of admission/observation: Escalation of care including admission/observation considered admission considered on presentation Lab Data MDM Lab Attestation statement: I reviewed the patient's lab results. as above. 10/16/23 10:15 10/16/23 10:15 Labs: Lab Results 10/16/23 10/16/23 10/16/23 Range/Units 10:15 10:19 12:50 WBC 10.0 (4.8-10.8) X10*3/uL RBC 3.97 L (4.20-5.50) X10*6/uL Hgb 12.1 (12.0-16.0) g/dl Hct 37.6 (37.0-47.0) % MCV 94.7 (80.0-98.0) fL MCH 30.5 (27.0-33.0) pg MCHC 32.2 (31.0-35.0) g/dl RDW 14.3 (11.0-16.0) % Plt Count 261 (160-400) X10*3/uL MPV 9.0 L (9.4-12.3) fL Immature Gran % (Auto) 0.3 (0.0-0.4) % Neut % (Auto) 58.9 (45-73) % Lymph % (Auto) 31.0 (20-40) % [place] % (Auto) 7.0 (2-11) % Eos % (Auto) 2.4 (0-4) % Baso % (Auto) 0.4 (0-2) % Lymph # (Auto) 3.1 (1.2-4.9) X10*3/uL [place] # (Auto) 0.7 (0.1-1.2) X10*3/uL Eos # (Auto) 0.2 (0.0-0.4) X10*3/uL Baso # (Auto) 0.0 (0.0-0.2) X10*3/uL Abs Immat Gran (auto) 0.03 (0.00-0.03) X10*3/uL Absolute Neuts (auto) 5.9 (2.0-8.3) x10*3/uL Absolute Nucleated RBC 0.000 (0.0-0.012) X10*3/uL Nucleated RBC % (auto) 0.0 (0.0-0.2) /100WBC ESR 27 H (0-20) MM/HR VBG pH 7.36 (7.32-7.43) VBG pCO2 48 mmHg VBG pO2 81 mmHg VBG HCO3 27 H (22-26) mmol/L VBG O2 Saturation 95.0 % VBG Base Excess 1.6 mmol/L Sodium 144 (135-145) mmol/L Potassium 4.8 (3.3-5.1) mmol/L Chloride 107 (96-108) mmol/L Carbon Dioxide 26 (22-29) mmol/L Anion Gap 16 (12-20) BUN 25 H (9-16) mg/dL Creatinine 0.93 (0.5-1.4) mg/dL Estim Creat Clear Calc 55.7 Estimated GFR 59 Random Glucose 104 (60-115) mg/dL Calcium 9.8 (8.4-10.2) mg/dL Magnesium 2.0 (1.6-2.6) mg/dL Total Bilirubin 0.4 (0.0-1.0) mg/dL AST 24 (5-31) U/L ALT 20 (0-31) U/L Alkaline Phosphatase 83 (39-117) U/L Ammonia 37 (13-55) umol/L Total Creatine Kinase 58 (26-140) U/L Troponin I High Sens 4.2 (<3.5-17.0) ng/L C-Reactive Protein 3.11 H (< or = 0.50) mg/dL B-Natriuretic Peptide 26 (<100) pg/mL Total Protein 6.8 (6.5-8.0) g/dL Albumin 3.7 (3.5-5.0) g/dL Lipase 75 (8-78) U/L TSH 3.04 (0.32-4.0) uIU/mL Urine Color Dark Yellow Urine Appearance Clear Urine pH 5.5 (5.0-9.0) Ur Specific [place] >= 1.030 H (1.005-1.025) Urine Protein Negative (Neg-Trace) mg/dL Urine Glucose (UA) Negative (Negative) mg/dL Urine Ketones 15 (Negative) mg/dL Urine Blood Negative (Negative) Urine Nitrite Negative (Negative) Ur Leukocyte Esterase Trace H (Negative) Urine RBC 0-2 (0-2) /HPF Urine WBC 0-5 (0-5) /HPF Ur Squamous Epith Cells 0-2 (0-2) /HPF Urine Bacteria None Seen (None Seen) Hyaline Casts 3-5 (0-2) /LPF Urine Opiates Screen Not Detected (Not Detect) Ur Buprenorphine Scrn Not Detected (Not Detect) ng/mL Ur Oxycodone Screen Not Detected (Not Detect) ng/mL Urine Methadone Screen Not Detected (Not Detect) ng/mL Urine Fentanyl Screen POSITIVE H (Not Detect) Ur Barbiturates Screen Not Detected (Not Detect) Ur Phencyclidine Scrn Not Detected (Not Detect) Ur Amphetamines Screen Not Detected (Not Detect) U Benzodiazepines Scrn Not Detected (Not Detect) Urine Cocaine Screen Not Detected (Not Detect) U Marijuana (THC) Screen Not Detected (Not Detect) Influenza Type A (PCR) NEGATIVE (Negative) Influenza Type B (PCR) NEGATIVE (Negative) RSV RNA Qual (PCR) NEGATIVE (Negative) SARS-CoV-2 RNA (RT-PCR) NEGATIVE (Negative) 10/16/23 Range/Units 14:45 WBC (4.8-10.8) X10*3/uL RBC (4.20-5.50) X10*6/uL Hgb (12.0-16.0) g/dl Hct (37.0-47.0) % MCV (80.0-98.0) fL MCH (27.0-33.0) pg MCHC (31.0-35.0) g/dl RDW (11.0-16.0) % Plt Count (160-400) X10*3/uL MPV (9.4-12.3) fL Immature Gran % (Auto) (0.0-0.4) % Neut % (Auto) (45-73) % Lymph % (Auto) (20-40) % [place] % (Auto) (2-11) % Eos % (Auto) (0-4) % Baso % (Auto) (0-2) % Lymph # (Auto) (1.2-4.9) X10*3/uL [place] # (Auto) (0.1-1.2) X10*3/uL Eos # (Auto) (0.0-0.4) X10*3/uL Baso # (Auto) (0.0-0.2) X10*3/uL Abs Immat Gran (auto) (0.00-0.03) X10*3/uL Absolute Neuts (auto) (2.0-8.3) x10*3/uL Absolute Nucleated RBC (0.0-0.012) X10*3/uL Nucleated RBC % (auto) (0.0-0.2) /100WBC ESR (0-20) MM/HR VBG pH (7.32-7.43) VBG pCO2 mmHg VBG pO2 mmHg VBG HCO3 (22-26) mmol/L VBG O2 Saturation % VBG Base Excess mmol/L Sodium (135-145) mmol/L Potassium (3.3-5.1) mmol/L Chloride (96-108) mmol/L Carbon Dioxide (22-29) mmol/L Anion Gap (12-20) BUN (9-16) mg/dL Creatinine (0.5-1.4) mg/dL Estim Creat Clear Calc Estimated GFR Random Glucose (60-115) mg/dL Calcium (8.4-10.2) mg/dL Magnesium (1.6-2.6) mg/dL Total Bilirubin (0.0-1.0) mg/dL AST (5-31) U/L ALT (0-31) U/L Alkaline Phosphatase (39-117) U/L Ammonia 49 (13-55) umol/L Total Creatine Kinase (26-140) U/L Troponin I High Sens (<3.5-17.0) ng/L C-Reactive Protein (< or = 0.50) mg/dL B-Natriuretic Peptide (<100) pg/mL Total Protein (6.5-8.0) g/dL Albumin (3.5-5.0) g/dL Lipase (8-78) U/L TSH (0.32-4.0) uIU/mL Urine Color Urine Appearance Urine pH (5.0-9.0) Ur Specific [place] (1.005-1.025) Urine Protein (Neg-Trace) mg/dL Urine Glucose (UA) (Negative) mg/dL Urine Ketones (Negative) mg/dL Urine Blood (Negative) Urine Nitrite (Negative) Ur Leukocyte Esterase (Negative) Urine RBC (0-2) /HPF Urine WBC (0-5) /HPF Ur Squamous Epith Cells (0-2) /HPF Urine Bacteria (None Seen) Hyaline Casts (0-2) /LPF Urine Opiates Screen (Not Detect) Ur Buprenorphine Scrn (Not Detect) ng/mL Ur Oxycodone Screen (Not Detect) ng/mL Urine Methadone Screen (Not Detect) ng/mL Urine Fentanyl Screen (Not Detect) Ur Barbiturates Screen (Not Detect) Ur Phencyclidine Scrn (Not Detect) Ur Amphetamines Screen (Not Detect) U Benzodiazepines Scrn (Not Detect) Urine Cocaine Screen (Not Detect) U Marijuana (THC) Screen (Not Detect) Influenza Type A (PCR) (Negative) Influenza Type B (PCR) (Negative) RSV RNA Qual (PCR) (Negative) SARS-CoV-2 RNA (RT-PCR) (Negative) Independent Interpretation I performed an independent interpretation of an: EKG, Plain X-Ray and CT Scan Interpretation: EKG showing normal sinus rhythm with a rate of 69 beats per minute, QT 438, QTC 469, right bundle-branch block which is baseline when compared to prior EKGs, no acute ischemic changes or ST elevations. CT head/ brain without bleed or mass, agree with radiologist's interpretation. CXR without effusion, agree with radiologist's interpretation. Radiology Impression Discussion of test interpretation with radiology: I have reviewed the radiologist's reading. Radiologist Impression: EXAMINATION: XR CHEST CLINICAL INFORMATION: Altered. COMPARISON: Chest radiograph dated 07/06/2023. TECHNIQUE: Frontal view of the chest was obtained. FINDINGS: Hypoinflation of the lungs with mild bibasilar atelectasis versus early infiltrates, new when compared to the prior examination. No pleural effusion or pneumothorax. Stable cardiomediastinal silhouette. XR/XR chest 1V IMPRESSION: Hypoinflation of the lungs with mild bibasilar atelectasis versus early infiltrates, new when compared to the prior examination. EXAMINATION: CT HEAD WITHOUT CONTRAST CLINICAL INFORMATION: Altered COMPARISON: CT abdomen from 12/23/2022 TECHNIQUE: Contiguous axial imaging was performed from the skull base to vertex without intravenous administration of contrast. This CT examination was performed using dose optimization techniques as appropriate, variously including the following: *Automated exposure control *Adjustment of mA and/or kV according to patient size (this includes techniques or standardized protocols for targeted exams where dose is matched to indication/reason for exam; i.e. extremities or head) *Use of iterative reconstruction technique DLP: 779 mGy-cm FINDINGS: There is no evidence of acute intracranial hemorrhage or territorial infarction. Low-lying cerebellar tonsils. Status post posterior decompressive suboccipital craniotomy. Chronic white matter small vessel ischemic changes. No abnormal mass effect or midline shift is seen. [place] to white matter differentiation is well preserved. No extra-axial fluid collections are identified. The ventricles are normal in size. There is no abnormal attenuation within the brain parenchyma. Versus frontalis interna. The osseous structures and soft tissues are normal. The mastoid air cells and visualized portions of the paranasal sinuses are well aerated. CT/CT head/brain wo IV con IMPRESSION: 1. No acute intracranial pathology. 2. Low-lying cerebellar tonsils. 3. Status post decompressive suboccipital craniotomy. 4. Chronic white matter small vessel ischemic changes. Independent Historian Clinical information obtained from an independent historian. History obtained from or confirmed by: EMS and Other (Granddaughter) External Record Review External record reviewed: Inpatient record Prescription Management I considered prescription management with: Antibiotic Chronic Conditions Patient?s care impacted by: Other (COPD) Social Determinants Patient?s care significantly limited by Social Determinants of Health including: Other Social Determinant of Health Critical Care Time Critical Care Time Critical Care Time: Yes Total Critical Care Time: 36 Attestation: Critical care time in the amount of 36 minutes has been provided to the patient in terms of direct patient care, frequent reevaluation, review and interpretation of medical data and results, and management of potentially life- threatening conditions. This is all outside of any medical procedures. Discharge Plan Discharge Clinical Impression: Generalized muscle weakness, Pneumonia Patient Disposition: Still a Patient Prescriptions: No Action lidocaine [Lidoderm] 5 % adhesive patch,medicated 1 patch topical DAILY 30 Days Qty: 30 4RF Rx Instructions: leave on most painful area for up to 12 hrs albuterol sulfate 90 mcg/actuation HFA aerosol inhaler 2 puff PO QID Qty: 8.5 11RF (DME) diabetic shoes See Rx Instructions .ROUTE .MEDSUPPLY Qty: 1 0RF Rx Instructions: extra depth orthopedic shoes ( 1 pair ) with customize heat molded multi density inner soles ( 3 pair) Dispense 1 Sig: As directed DX: And IDDM /polyneuropathy ( E11 0.42 ); hammertoe foot deformity ( M 20.41, and 20.42 ) pre ulcerative skin lesion ( L 85.1 ) Diagnosis ( E11 0.42 ) type 2 diabetes with polyneuropathy roflumilast 250 mcg tablet 250 mcg PO DAILY Qty: 30 0RF (DME) Dexcom G7 Salvage Determiner Misc See Rx Instructions .Route Qty: 1 0RF Rx Instructions: As directed (DME) Dexcom G7 Sensor Device See Rx Instructions .Route Qty: 3 4RF Rx Instructions: As directed change every 10 days (DME) Dexcom G6 Transmitter Device See Rx Instructions .ROUTE .COMPLEX Qty: 1 0RF Dose Instruction: USE DIRECTED Rx Instructions: USE DIRECTED peg 3350-electrolytes 236-22.74-6.74 -5.86 gram recon soln 240 ml PO Q10M Qty: 4000 0RF Rx Instructions: Refer to prep instructions given/ mailed to you from GI OFFICE. until fecal effluent is clear albuterol sulfate 2.5 mg /3 mL (0.083 %) solution for nebulization 2.5 mg inhalation Q4-6H PRN (Reason: for wheezing) Qty: 180 0RF (DME) pen needle, diabetic [BD Ultra-Fine Short Pen Needle] 31 gauge x 5/16 needle See Rx Instructions .ROUTE .COMPLEX Qty: 100 4RF Dose Instruction: DIRECTED TO INJECT FOUR TIMES DAILY Rx Instructions: DIRECTED TO INJECT FOUR TIMES DAILY (DME) FreeStyle Lite Strips Strip See Rx Instructions .Route Qty: 50 4RF Rx Instructions: As directed (DME) blood-glucose meter [FreeStyle Lite Meter] Kit See Rx Instructions .Route Qty: 1 0RF Rx Instructions: As directed benzonatate 200 mg capsule 200 mg PO BID PRN (Reason: cough) 30 Days Qty: 60 0RF (DME) Ketostix Strip See Rx Instructions .Route Qty: 50 2RF Rx Instructions: As directed Mounjaro 2.5 mg/0.5 mL pen injector 2.5 mg subcut QWEEK 84 Days Qty: 6 1RF insulin aspart U-100 [Novolog FlexPen U-100 Insulin] 100 unit/mL (3 mL) insulin pen See Rx Instructions subcut TID Qty: 15 5RF Rx Instructions: use sliding scale of 151-200 2 units, 201-250 4 units , 251-300 6 units and >300 8 units subcutaneously 3 times a day; gabapentin 300 mg capsule 300 mg PO BEDTIME 30 Days Qty: 30 11RF (DME) navarro [facility] See Rx Instructions .ROUTE .MEDSUPPLY Qty: 1 0RF Rx Instructions: As directed ketoconazole 2 % shampoo 1 appl topical 2XW ipratropium bromide 21 mcg (0.03 %) spray,non-aerosol 2 spray intranasal BID buspirone 15 mg tablet 1 tab PO BID Gemtesa 75 mg tablet 75 mg PO DAILY acetaminophen [Tylenol Extra Strength] 500 mg tablet 650 mg PO Q6H PRN (Reason: fever or pain) meloxicam 15 mg Tablet 15 mg PO DAILY nystatin 100,000 unit/gram powder 1 appl topical BID Qty: 30 0RF tramadol 50 mg tablet 50 mg PO Q6H PRN (Reason: severe pain (scale score 7-10)) Qty: 12 0RF duloxetine 60 mg capsule,delayed release(DR/EC) 60 mg PO DAILY ibuprofen 600 mg tablet 600 mg PO TID PRN (Reason: Pain) lisinopril 10 mg tablet 10 mg PO DAILY insulin glargine 100 unit/mL (3 mL) insulin pen 54 unit subcut BEDTIME insulin aspart U-100 100 unit/mL (3 mL) insulin pen 10 - 18 sliding scale dose subcut QIDACHS Protocol: Insulin Correction Scale Less than or equal to 110 ---- Give (units): 0 111 to 150 Give (units): 0 151 to 200 Give (units): 2 201 to 250 Give (units): 4 251 to 300 Give (units): 6 301 to 350 Give (units): 8 Greater than 350 Give (units): 10 Call MD if Blood Glucose > : 350 Rx Instructions: 10-18 units donepezil 5 mg tablet 5 mg PO BEDTIME Spiriva Respimat 2.5 mcg/actuation mist 2 puff inhalation DAILY 30 Days Qty: 4 11RF (DME) Oxygen Home Use Kit See Rx Instructions .Route Rx Instructions: As directed pregabalin 150 mg capsule 150 mg PO DAILY (DME) lancets [FreeStyle Lancets] 28 gauge [facility] [place] See Rx Instructions .Route Rx Instructions: As directed montelukast 10 mg tablet 10 mg PO DAILY Baqsimi 3 mg/actuation spray,non-aerosol 3 mg intranasal ONCE Qty: 2 0RF lorazepam 1 mg tablet 1 mg PO DAILY PRN (Reason: Anxiety) aripiprazole 5 mg tablet 5 mg PO DAILY zolpidem 10 mg tablet 10 mg PO BEDTIME PRN (Reason: Insomnia) darifenacin 15 mg tablet extended release 24 hr 15 mg PO DAILY buspirone 30 mg tablet 30 mg PO BID clonazepam 0.5 mg tablet 0.5 mg PO BID PRN (Reason: anxiety) (DME) nebulizers [facility] See Rx Instructions .Route Rx Instructions: As directed Breztri Aerosphere 160-9-4.8 mcg/actuation HFA aerosol inhaler 2 inh inhalation BID Qty: 10.7 11RF nystatin 100,000 unit/mL suspension 1 ml buccal BID 30 Days Qty: 60 0RF Rx Instructions: administer 1/2 of dose in each side of the mouth Trelegy Ellipta 200-62.5-25 mcg blister with device 1 ea inhalation DAILY fluconazole 100 mg tablet 100 mg PO DAILY 10 Days Qty: 10 1RF nystatin 100,000 unit/mL suspension 1 ml PO BID 30 Days Qty: 60 3RF Rx Instructions: swish and swallow gabapentin 100 mg capsule 100 mg PO BID trazodone 50 mg tablet 25 mg PO BEDTIME PRN (Reason: Insomnia) metformin 1,000 mg tablet 1,000 mg PO BID atorvastatin 40 mg tablet 40 mg PO DAILY Print Language: [place]an
--- NOTE | 2023-10-16 09:48 | ECG_ITS ---
Test Reason : AMS Blood Pressure : / mmHG Vent. Rate : 069 BPM Atrial Rate : 069 BPM P-R Int : 160 ms QRS Dur : 126 ms QT Int : 438 ms P-R-T Axes : 025 -23 029 degrees QTc Int : 469 ms Normal sinus rhythm Right bundle branch block Abnormal ECG When compared with ECG of 17-JAN-2023 22:17, No significant change was found Referred By: Germaine Cramer Electronically Signed By:MARGARET KIM
[2023-10-16 10:22] LABS: MANUAL DIFF FLAG NO
[2023-10-16 10:26] LABS: Basophils Percent Auto 0.4 % (0-2); Eosinophils Absolute Auto 0.2 X10*3/uL (0.0-0.4); Eosinophils Percent Auto 2.4 % (0-4); Hematocrit 37.6 % (37.0-47.0); Hemoglobin 12.1 g/dl (12.0-16.0); Imm Gran Abs Auto 0.03 X10*3/uL (0.00-0.03); Imm Gran Pct Auto 0.3 % (0.0-0.4); Lymphocytes Absolute Auto 3.1 X10*3/uL (1.2-4.9); Mean Corpuscular HGB Conc 32.2 g/dl (31.0-35.0); Mean Corpuscular Hemoglobin 30.5 pg (27.0-33.0); Mean Corpuscular Volume 94.7 fL (80.0-98.0); Monocytes Absolute Auto 0.7 X10*3/uL (0.1-1.2); Neutrophils Absolute Auto 5.9 x10*3/uL (2.0-8.3); Neutrophils Percent Auto 58.9 % (45-73); Platelet Count 261 X10*3/uL (160-400); Red Blood Count 3.97 X10*6/uL (4.20-5.50); Red Cell Distribution Width 14.3 % (11.0-16.0)
[2023-10-16 10:28] LABS: VBG Base Excess 1.6 mmol/L; VBG HCO3 27 mmol/L (22-26); VBG pCO2 48 mmHg; VBG pH 7.36 (7.32-7.43); VBG pO2 81 mmHg
[2023-10-16 10:38] LABS: Ammonia 37 umol/L (13-55)
[2023-10-16 10:41] LABS: Venous Blood Gas Refer to POC result
[2023-10-16 10:46] LABS: Alanine Aminotransferase 20 U/L (0-31); Albumin Level 3.7 g/dL (3.5-5.0); Alkaline Phosphatase 83 U/L (39-117); Anion Gap 16 (12-20); Aspartate Amino Transferase 24 U/L (5-31); Bilirubin Total 0.4 mg/dL (0.0-1.0); Blood Urea Nitrogen 25 mg/dL (9-16); C Reactive Protein 3.11 mg/dL (< or = 0.50); Calcium 9.8 mg/dL (8.4-10.2); Carbon Dioxide 26 mmol/L (22-29); Chloride 107 mmol/L (96-108); Creatinine Clr Calc Pharmacy 55.7; Estimated Glomerular Filt Rate 59; Glucose Random 104 mg/dL (60-115); Lipase 75 U/L (8-78); Potassium 4.8 mmol/L (3.3-5.1); Sodium 144 mmol/L (135-145); Total Protein 6.8 g/dL (6.5-8.0)
[2023-10-16 10:50] LABS: B Type Natriuretic Peptide 26 pg/mL (<100)
[2023-10-16 11:00] LABS: Influenza A PCR NEGATIVE (Negative); Influenza B PCR NEGATIVE (Negative); Resp Syncy Virus RNA Qual PCR NEGATIVE (Negative); SARS COV2 PCR INHOUSE NEGATIVE (Negative)
[2023-10-16 11:06] LABS: TSH reflex Free T4 3.04 uIU/mL (0.32-4.0)
[2023-10-16 11:14] LABS: Erythrocyte Sedimentation Rate 27 MM/HR (0-20)
[2023-10-16] MEDS: 0.9 % Sodium Chloride 1,000 ML 999 ML IV (12:14)
[2023-10-16 12:32] LABS: Troponin-I High Sensitivity 4.2 ng/L (<3.5-17.0)
[2023-10-16 12:38] VITALS: BP 118/67; PULSE 70; RESP 20; TEMP 36.4
[2023-10-16 13:09] LABS: Appearance Urine Clear; Color Urine Dark Yellow; Glucose Urine UA Negative (Negative); Leukocyte Esterase Urine Trace (Negative); Nitrite Urine Negative (Negative); PH 5.5 (5.0-9.0); Specific Gravity - Urine >= 1.030 (1.005-1.025); UMIC TRIGGER UACC YES; Urine Blood Negative (Negative); Urine Ketones 15 mg/dL (Negative); Urine Protein Negative (Neg-Trace)
[2023-10-16 13:10] LABS: Amphetamine Screen Urine Not Detected (Not Detect); Barbiturates, Urine Not Detected (Not Detect); Benzodiazepines Screen Urine Not Detected (Not Detect); Buprenorphine Scr Not Detected (Not Detect); Cannabinoid Screen Urine Not Detected (Not Detect); Cocaine Screen Urine Not Detected (Not Detect); Fentanyl, urine POSITIVE (Not Detect); Methadone Screen, Urine Not Detected (Not Detect); Opiate Screen Urine Not Detected (Not Detect); Oxycodone Screen Urine Not Detected (Not Detect); Phencyclidine Screen Urine Not Detected (Not Detect)
[2023-10-16 13:11] LABS: Bacteria Urine None Seen (None Seen); RBC Urine 0-2 /HPF (0-2); Squamous Epithelial Cell Urine 0-2 /HPF (0-2); WBC Urine 0-5 /HPF (0-5)
[2023-10-16] MEDS: cefuroxime axetiL 500 MG TABLET PO ×2 (14:18→21:27)
[2023-10-16] MEDS: Doxycycline Monohydrate 100 MG CAPSULE PO ×2 (14:18→21:27)
[2023-10-16 14:57] LABS: Ammonia 49 umol/L (13-55)
[2023-10-16 18:00] VITALS: BP 135/87; PULSE 74; RESP 18; TEMP 36.7; O2SAT 97
[2023-10-16 20:15] VITALS: PULSE 70; RESP 17; TEMP 36.3; O2SAT 99
--- NOTE | 2023-10-16 21:57 | PC.NURSE ---
received pt from main ed, assume care of pt at this time
--- NOTE | 2023-10-16 22:01 | PC.NURSE ---
Pt c/o of left shoulder pain, will check with Daniel BLUM for something for pain
[2023-10-16] MEDS: Acetaminophen 325 MG TABLET 650 MG PO (22:40)
[2023-10-17] MEDS: traMADoL HCL 50 MG TABLET PO (00:38)
--- NOTE | 2023-10-17 02:47 | PC.NURSE ---
1900- Assumed care of patient . Patient c/o back pain, no relieve from Tylenol. Provider notified, Tramadol ordered/administered. Pt sleeping at present time , call figueroa within reach.
[2023-10-17 04:46] VITALS: BP 148/65; PULSE 80; RESP 18; TEMP 36.1; O2SAT 98
[2023-10-17] MEDS: Acetaminophen 325 MG TABLET 650 MG PO (04:54)
[2023-10-17 07:07] LABS: Glucose, Whole Blood 83 mg/dL (60-115)
[2023-10-17] MEDS: Nystatin Powder 15 GM BOTTLE 1 APPL TOPICAL (07:51)
[2023-10-17] MEDS: Doxycycline Monohydrate 100 MG CAPSULE PO (07:51)
[2023-10-17] MEDS: cefuroxime axetiL 500 MG TABLET PO (07:51)
[2023-10-17 11:23] LABS: Glucose, Whole Blood 136 mg/dL (60-115)
[2023-10-17 14:32] VITALS: BP 120/54; PULSE 68; RESP 18; O2SAT 100
[2023-10-17 14:42] VITALS: PULSE 77; O2SAT 90
[2023-10-17 15:49] LABS: Glucose, Whole Blood 137 mg/dL (60-115)
[2023-10-17 19:34] VITALS: BP 121/58; PULSE 76; RESP 18; TEMP 36.7; O2SAT 98
== END 2023-10-17 19:37 | disposition home or self-care (01) ==
PROVIDERS: Physician Assistant; Physician Assistant Medical; Emergency Provider Emergency Medicine Emergency Medical Services; PCP Internal Medicine
DX: J18.9 Pneumonia, unspecified organism (principal); R41.82 Altered mental status, unspecified; R53.1 Weakness; G47.33 Obstructive sleep apnea (adult) (pediatric); E11.9 Type 2 diabetes mellitus without complications; R35.0 Frequency of micturition; J44.9 Chronic obstructive pulmonary disease, unspecified; R26.2 Difficulty in walking, not elsewhere classified; R06.02 Shortness of breath; I45.10 Unspecified right bundle-branch block; M54.2 Cervicalgia; Z86.718 Personal history of other venous thrombosis and embolism; Z03.818 Encounter for observation for suspected exposure to other biological agents ruled out; Z79.01 Long term (current) use of anticoagulants; Z79.899 Other long term (current) drug therapy; Z79.4 Long term (current) use of insulin; Z87.891 Personal history of nicotine dependence
CPT/HCPCS: 0241U; 36415; 51701; 70450; 71045; 80053; 80307; 81001; 81003; 82140; 82550; 82803; 82947; 83690; 83735; 83880; 84443; 84484; 85025; 85652; 86140; 93005; 96360; 96361; 97162; 99285

== ENCOUNTER → 2023-10-16 09:48 | Outpatient (BNV) | payer OTHER, SELFPAY | PROVIDERS: Emergency Provider Emergency Medicine Emergency Medical Services; PCP Internal Medicine; Visit Provider Internal Medicine | DX: R94.31 Abnormal electrocardiogram [ECG] [EKG] (principal) | CPT/HCPCS: 93010 ==

== ENCOUNTER 2023-10-23 01:24 | Inpatient (IN) | payer OTHER, SELFPAY ==
[2023-10-23] VITALS (30 sets, daily range): BP systolic 72–172; BP diastolic 25–77; PULSE 60–112; RESP 10–27; TEMP 33.4–37.7; O2SAT 80–100; BMI 33.2
--- NOTE | ~2023-10-23 | XR_ITS ---
EXAMINATION: XR CHEST CLINICAL INFORMATION: Shortness of breath. COMPARISON: 10/16/2023. TECHNIQUE: Frontal view of the chest was obtained. FINDINGS: The lung volumes are low and the patient is minimally rotated. The cardiomediastinal silhouette is stable. There is no focal lung consolidation or pleural effusions. The bony structures and soft tissues are unremarkable. XR/XR chest 1V IMPRESSION: No acute cardiopulmonary disease.
--- NOTE | ~2023-10-23 | CT_ITS ---
EXAMINATION: CT CHEST WITHOUT CONTRAST CLINICAL INFORMATION: Concern for pneumonia. COMPARISON: 04/11/2021 TECHNIQUE: Multidetector volumetric CT imaging of the chest was done. Axial MIP volume rendering provided. Sagittal and coronal reformatted images were obtained. This CT examination was performed using dose optimization techniques as appropriate, variously including the following: *Automated exposure control *Adjustment of mA and/or kV according to patient size (this includes techniques or standardized protocols for targeted exams where dose is matched to indication/reason for exam; i.e. extremities or head) *Use of iterative reconstruction technique DLP: 498 mGy-cm FINDINGS: [employer]: Unremarkable LUNGS: There is a left lower lung field infiltrate. Minimal right middle lobe infiltrative change. The lungs are otherwise clear. MEDIASTINUM: The mediastinum is normal. CORONARY ARTERY CALCIFICATION: [id number]. PLEURA: There is no pleural effusion. No pleural mass or thickening. AXILLA: No lymphadenopathy. There is a large calcific density associated with the left breast. UPPER ABDOMEN: A gastric band is noted. OSSEOUS STRUCTURES: There is a mildly displaced lateral left seventh rib fracture. CT/CT chest wo IV con IMPRESSION: 1. Left lower lung field infiltrate and minimal right middle lobe infiltrative change. Suspect pneumonia. 2. Mildly displaced lateral left seventh rib fracture. Fleischner guidelines were followed.
--- NOTE | ~2023-10-23 | CT_ITS ---
EXAMINATION: CT HEAD WITHOUT CONTRAST CLINICAL INFORMATION: Altered mental status. COMPARISON: None available. TECHNIQUE: Contiguous axial imaging was performed from the skull base to vertex without intravenous administration of contrast. Sagittal and coronal reformatted images also obtained. This CT examination was performed using dose optimization techniques as appropriate, variously including the following: *Automated exposure control *Adjustment of mA and/or kV according to patient size (this includes techniques or standardized protocols for targeted exams where dose is matched to indication/reason for exam; i.e. extremities or head) *Use of iterative reconstruction technique DLP: 841 mGy-cm FINDINGS: There is cerebral volume loss with prominence of the lateral and the third ventricles. The cortical sulci are widened appropriately. The fourth ventricle and basal cisterns are normally outlined. There is mild bilateral periventricular and central white matter diminished attenuation. There is no acute territorial defect, hemorrhage or midline shift. Low-lying cerebellar tonsils are again seen. The extra-axial spaces are unremarkable. Calvarium/scalp: A suboccipital craniotomy is again noted. Maxillofacial sinuses and mastoids: Clear as visualized. CT/CT head/brain wo IV con IMPRESSION: 1. No acute intracranial process seen. 2. Mild cerebral volume loss with chronic small vessel ischemic changes.
--- NOTE | 2023-10-23 01:36 | ECG_ITS ---
Test Reason : UNRESPONSIVE Blood Pressure : / mmHG Vent. Rate : 064 BPM Atrial Rate : 064 BPM P-R Int : 172 ms QRS Dur : 142 ms QT Int : 498 ms P-R-T Axes : 047 -06 054 degrees QTc Int : 513 ms Normal sinus rhythm with sinus arrhythmia Right bundle branch block Abnormal ECG When compared with ECG of 16-OCT-2023 09:52, No significant change was found Referred By: Owen Sawyer Electronically Signed By:MARIAN RYAN
[2023-10-23 01:48] LABS: MANUAL DIFF FLAG NO
[2023-10-23 01:50] LABS: Basophils Percent Auto 0.2 % (0-2); Eosinophils Absolute Auto 0.1 X10*3/uL (0.0-0.4); Eosinophils Percent Auto 0.8 % (0-4); Hematocrit 39.6 % (37.0-47.0); Hemoglobin 12.7 g/dl (12.0-16.0); Imm Gran Abs Auto 0.06 X10*3/uL (0.00-0.03); Imm Gran Pct Auto 0.5 % (0.0-0.4); Lymphocytes Percent Auto 15.3 % (20-40); Mean Corpuscular HGB Conc 32.1 g/dl (31.0-35.0); Mean Corpuscular Hemoglobin 30.5 pg (27.0-33.0); Mean Platelet Volume 9.1 fL (9.4-12.3); Monocytes Absolute Auto 0.7 X10*3/uL (0.1-1.2); Monocytes Percent Auto 5.5 % (2-11); Neutrophils Absolute Auto 10.3 x10*3/uL (2.0-8.3); Neutrophils Percent Auto 77.7 % (45-73); Platelet Count 301 X10*3/uL (160-400); Red Blood Count 4.17 X10*6/uL (4.20-5.50); Red Cell Distribution Width 13.7 % (11.0-16.0); White Blood Count 13.3 X10*3/uL (4.8-10.8)
[2023-10-23] MEDS: 0.9 % Sodium Chloride 1,000 ML 999 ML IV ×3 (01:55→04:43)
[2023-10-23 01:56] LABS: INTERNATIONAL NORM RATIO 0.9 (0.9-1.1); Prothrombin Time 11.3 SEC (11.1-13.3)
[2023-10-23] MEDS: cefTRIAXone sodium 1 GM in 0.9 % Sodium Chloride 50 ML IV (01:58)
[2023-10-23 02:14] LABS: Alanine Aminotransferase 42 U/L (0-31); Albumin Level 3.9 g/dL (3.5-5.0); Alkaline Phosphatase 94 U/L (39-117); Anion Gap 18 (12-20); Aspartate Amino Transferase 46 U/L (5-31); Bilirubin Total 0.3 mg/dL (0.0-1.0); Blood Urea Nitrogen 26 mg/dL (9-16); Calcium 10.4 mg/dL (8.4-10.2); Carbon Dioxide 23 mmol/L (22-29); Chloride 106 mmol/L (96-108); Estimated Glomerular Filt Rate > 60; Glucose Random 48 mg/dL (60-115); Lactic Acid 2.5 mmol/L (0.5-2.0); Magnesium 2.1 mg/dL (1.6-2.6); Potassium 3.8 mmol/L (3.3-5.1); Sodium 143 mmol/L (135-145); Total Protein 7.3 g/dL (6.5-8.0)
[2023-10-23] MEDS: Dextrose 5 % 1,000 ML 80 ML IVCONT (02:14)
[2023-10-23 02:15] LABS: Troponin-I High Sensitivity 3.6 ng/L (<3.5-17.0)
[2023-10-23 02:19] LABS: Glucose, Whole Blood 109 mg/dL (60-115)
[2023-10-23 02:19] LABS: Glucose, Whole Blood 83 mg/dL (60-115)
[2023-10-23 02:19] LABS: Glucose, Whole Blood 78 mg/dL (60-115)
[2023-10-23 02:27] LABS: Appearance Urine Clear; Color Urine Dark Yellow; Glucose Urine UA Negative (Negative); Leukocyte Esterase Urine Trace (Negative); Nitrite Urine Negative (Negative); PH 5.5 (5.0-9.0); Specific Gravity - Urine 1.025 (1.005-1.025); UMIC TRIGGER UACC YES; Urine Blood Negative (Negative); Urine Ketones Trace mg/dL (Negative); Urine Protein 30 (1+) mg/dL (Neg-Trace)
[2023-10-23 02:33] LABS: Bacteria Urine None Seen (None Seen); Hyaline Casts Urine 0-2 /LPF (0-2); RBC Urine 0-2 /HPF (0-2); WBC Urine 0-5 /HPF (0-5)
--- NOTE | 2023-10-23 02:36 | ED.AMS ---
HPI - Altered Mental Status General Chief Complaint: Altered Mental Status Stated Complaint: Unresponsive Time Seen by Provider: 10/23/23 01:35 Source: patient Mode of arrival: ambulatory Limitations: no limitations History of Present Illness ED Provider: hira BATISTA narrative: Patient is diabetic on insulin with history of COPD /restrictive lung disease, history of C diff, pulmonary hypertension, history of DVT and PE, CASSANDRA on BiPAP noncompliant, on 2.5L O2 at baseline, on insulin pump which started a month ago patient is trying to manipulate her pump earlier today spoke to her daughter at midnight saying that she not feeling good within 5 minutes family reached to see her and found her semi-responsive EMS each within 10 minutes and POC was 68 was given glucagon IM and about 50 cc of D10 on arrival POC was 109 patient's mentation was improving still falling sleep saturating 80% on 3 L on arrival patient was seen here on 10/15 for weakness noticed to have questionable early infiltrate in the lung and started on doxycycline and Ceftin Related Data Home Medications ?Medication ?Instructions ?Recorded ?Confirmed duloxetine 60 mg capsule,delayed 60 mg PO DAILY 02/06/20 07/06/23 release ibuprofen 600 mg tablet 600 mg PO TID PRN Pain 02/06/20 07/06/23 lisinopril 10 mg tablet 10 mg PO DAILY 02/06/20 07/06/23 donepezil 5 mg tablet 5 mg PO BEDTIME 11/06/20 07/06/23 insulin glargine 100 unit/mL (3 54 unit subcut BEDTIME 01/05/21 07/06/23 mL) subcutaneous pen buspirone 15 mg tablet 1 tab PO BID 11/11/21 07/06/23 ipratropium bromide 21 mcg (0.03 2 spray intranasal BID 11/11/21 07/06/23 %) nasal spray ketoconazole 2 % shampoo 1 appl topical 2XW 11/11/21 07/06/23 vibegron 75 mg tablet (Gemtesa) 75 mg PO DAILY 11/11/21 07/06/23 Oxygen Home Use 01/18/22 07/06/23 meloxicam 15 mg tablet 15 mg PO DAILY 02/23/22 07/06/23 acetaminophen 500 mg tablet 650 mg PO Q6H PRN fever or pain 02/28/22 07/06/23 (Tylenol Extra Strength) pregabalin 150 mg capsule 150 mg PO DAILY 03/11/22 07/06/23 insulin aspart U-100 100 unit/mL 10 - 18 sliding scale dose subcut 06/10/22 07/06/23 (3 mL) subcutaneous pen QIDACHS lorazepam 1 mg tablet 1 mg PO DAILY PRN Anxiety 08/03/22 07/06/23 gabapentin 100 mg capsule 100 mg PO BID 08/24/22 07/06/23 trazodone 50 mg tablet 25 mg PO BEDTIME PRN Insomnia 08/24/22 07/06/23 lancets 28 gauge (FreeStyle 09/09/22 07/06/23 Lancets) montelukast 10 mg tablet 10 mg PO DAILY 09/09/22 07/06/23 aripiprazole 5 mg tablet 5 mg PO DAILY 10/11/22 07/06/23 buspirone 30 mg tablet 30 mg PO BID 10/11/22 07/06/23 clonazepam 0.5 mg tablet 0.5 mg PO BID PRN anxiety 10/11/22 07/06/23 darifenacin 15 mg tablet,extended 15 mg PO DAILY 10/11/22 07/06/23 release 24 hr zolpidem 10 mg tablet 10 mg PO BEDTIME PRN Insomnia 10/11/22 07/06/23 nebulizers 03/14/23 07/06/23 fluticasone fur. 200 mcg-umeclid 1 ea inhalation DAILY 04/27/23 07/06/23 62.5 mcg-vilant 25 mcg inhalat.powder (Trelegy Ellipta) atorvastatin 40 mg tablet 40 mg PO DAILY 05/15/23 07/06/23 metformin 1,000 mg tablet 1,000 mg PO BID 05/15/23 07/06/23 Previous Rx's ?Medication ?Instructions ?Recorded walker #1 ea 07/12/20 tiotropium bromide 2.5 2 puff inhalation DAILY 30 days #4 03/18/21 mcg/actuation mist for inhalation grams (Spiriva Respimat) lidocaine 5 % topical patch 1 patch topical DAILY 30 days #30 01/19/22 (Lidoderm) ea albuterol sulfate 90 mcg/actuation 2 puff PO QID #8.5 grams 02/04/22 aerosol inhaler nystatin 100,000 unit/gram topical 1 appl topical BID #30 grams 05/27/22 powder glucagon 3 mg/actuation nasal 3 mg intranasal ONCE #2 ea 09/09/22 spray (Baqsimi) diabetic shoes #1 ea 09/12/22 roflumilast 250 mcg tablet 250 mcg PO DAILY #30 tabs 09/27/22 blood-glucose meter,continuous #1 ea 11/29/22 (Dexcom G7 Boring Machine Set Up Operator Jig) blood-glucose sensor (Dexcom G7 #3 ea 12/05/22 Sensor device) tramadol 50 mg tablet 50 mg PO Q6H PRN severe pain 12/23/22 (scale score 7-10) #12 tabs blood-glucose transmitter (Dexcom #1 ea 12/30/22 G6 Transmitter device) peg 3350-electrolytes 236 240 ml PO Q10M #4,000 mL 12/30/22 gram-22.74 gram-6.74 gram-5.86 gram solution albuterol sulfate 2.5 mg/3 mL 2.5 mg (3 mL) inhalation Q4-6H PRN 03/10/23 (0.083 %) solution for nebulization for wheezing #180 mL budesonide 160 mcg-glycopyr 9 2 inh inhalation BID #10.7 grams 03/14/23 mcg-formot 4.8 mcg/actuation HFA inhaler (Breztri Aerosphere) nystatin 100,000 unit/mL oral 1 ml buccal BID 30 days #60 mL 03/14/23 suspension fluconazole 100 mg tablet 100 mg PO DAILY 10 days #10 tabs 04/27/23 nystatin 100,000 unit/mL oral 1 ml PO BID 30 days #60 mL 04/27/23 suspension pen needle, diabetic 31 gauge x #100 ea 05/30/23/16 (BD Ultra-Fine Short Pen Needle) blood sugar diagnostic (FreeStyle #50 ea 06/15/23 Lite Strips) blood-glucose meter (FreeStyle #1 ea 06/15/23 Lite Meter kit) benzonatate 200 mg capsule 200 mg PO BID PRN cough 30 days 07/21/23 #60 caps acetone (urine) test (Ketostix #50 ea 07/24/23 strips) tirzepatide 2.5 mg/0.5 mL 2.5 mg (0.5 mL) subcut QWEEK 84 07/26/23 subcutaneous pen injector days #6 mL (Mounjaro) insulin aspart U-100 100 unit/mL See Rx Instructions subcut TID #15 08/28/23 (3 mL) subcutaneous pen (Novolog mL FlexPen U-100 Insulin aspart) gabapentin 300 mg capsule 300 mg PO BEDTIME 30 days #30 caps 09/20/23 cefuroxime axetil 500 mg tablet 500 mg PO Q12H #14 tabs 10/17/23 doxycycline hyclate 100 mg tablet 100 mg PO BID #14 tabs 10/17/23 tramadol 50 mg tablet 50 mg PO Q8H PRN severe pain 10/17/23 (scale score 7-10) #15 tabs Allergies Allergy/AdvReac Type Severity Reaction Status Date / Time aspirin [ASPIRIN] Allergy Intermediate GI UPSET, Verified 10/23/23 01:46 stomach pain latex [LATEX] Allergy Intermediate HIVES Verified 10/23/23 01:46 Review of Systems Review of Systems: Yes Unobtainable due to mental status PMFSH Past Medical History Medical History COPD exacerbation C. difficile enteritis COVID-19 DVT (deep venous thrombosis) Pulmonary hypertension Pulmonary emboli Acute on chronic respiratory failure with hypoxia and hypercapnia Chronic respiratory failure [place] (hard of hearing) PONV (postoperative nausea and vomiting) Post herpetic neuralgia Pneumonia Back pain Morbid obesity Chest crackles Cardiomegaly Asthma-COPD overlap syndrome Acute respiratory failure Hyperlipidemia Hypertension Diabetes Arnold-Chiari malformation Arthritis Fibromyalgia Cough CASSANDRA treated with BiPAP Asthma Sinusitis Surgical History Hx of eye surgery History of esophagogastroduodenoscopy (EGD) H/O colonoscopy Hx of laparoscopic gastric banding H/O bilateral breast reduction surgery H/O brain surgery Family History Family History Mother HTN (hypertension) Breast cancer Father Primary cancer of bone marrow Social History Social History Household Members: Other Household Members Other:: granddaughter Housing: Apartment Are you a primary urgent care physician assistant to a significant other at home: No Do you presently have visiting nurse or other home services: Yes (DIGITAL MEDIA 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) Unable to assess alcohol history related to: Unable to respond Alcohol intake: never Patient Tobacco Use Status: Former Tobacco user Tobacco use type: Cigarette Years Smoked: 15 +/- Use of substances other than those prescribed or required for medical reasons: Unable to respond Advance Directives: Yes Advance Directives on File: Yes Advance Directives Date on File: 11/11/21 Nutrition Risks: No Nutritional Risk Physical Exam ED Vital Signs: Vital Signs - 24 hr 10/23/23 01:31 10/23/23 01:52 10/23/23 02:00 Temperature 93.2 F L 92.1 F L Pulse Rate 69 66 Respiratory Rate 20 16 19 Blood Pressure 117/47 L 131/63 Pulse Oximetry 90 L 93 Oxygen Delivery Method Nasal Cannula Nasal Cannula Oxygen Flow Rate 1 10/23/23 02:09 10/23/23 02:14 10/23/23 02:30 Temperature 92.1 F L 92.6 F L 93.0 F L Pulse Rate 60 60 66 Respiratory Rate 10 L 16 16 Blood Pressure 93/43 L 99/40 L 93/34 L Pulse Oximetry 92 92 93 Oxygen Delivery Method Nasal Cannula Nasal Cannula Nasal Cannula Oxygen Flow Rate 1 1 1 10/23/23 02:47 Temperature 93.0 F L Pulse Rate 65 Respiratory Rate 16 Blood Pressure 100/31 L Pulse Oximetry 96 Oxygen Delivery Method Nasal Cannula Oxygen Flow Rate 1 BMI result Body Mass Index 33.2 Appearance: Alert. Oriented X3. No acute distress. Eyes: PERRLA, No Nystagmus ENT: Pharynx normal. Oral Mucosa moist atraumatic normocephalic Neck: Normal inspection. Neck supple. CVS: Normal heart rate and rhythm. Pulses normal. Respiratory: No respiratory distress. Equal air entry bilateral, bilateral rales+ Abdomen: Soft and nontender. Bowel sounds are present, no mass palpable, no CVA tenderness Skin: Skin warm and dry. Normal skin color. Normal skin turgor. Extremities: No lower extremity edema. No calf tenderness Neuro: Oriented X 2. No motor deficit. No sensory deficit.No cerebellar signs , cranial nerves II-XII intact Medications Administered Generic Name Dose Route Start Last Admin Trade Name Freq PRN Reason Stop Dose Admin Dextrose 1,000 mls @ 125 mls/hr 10/23/23 02:15 10/23/23 06:07 D5w IVCONT 125 mls/hr .Q8H HARRISON Infusion Dextrose 250 mls @ 750 mls/hr 10/23/23 03:20 10/23/23 06:00 D10 IV 750 mls/hr Q15M PRN Administration per Hypoglycemia Standing Ord. Protocol Discontinued Medications Generic Name Dose Route Start Last Admin Trade Name Freq PRN Reason Stop Dose Admin Dextrose 25 gm 10/23/23 03:45 10/23/23 03:44 Dextrose 50 % 25 Gm/50 Ml Syringe IVPUSH 10/23/23 03:46 25 gm ONCE ONE Administration Sodium Chloride 1,000 mls @ 999 mls/hr 10/23/23 01:49 10/23/23 03:04 Ns IV 10/23/23 02:49 Infused .Q1H1M ONE Infusion Ceftriaxone Sodium 1 gm/ 50 mls @ 100 mls/hr 10/23/23 01:49 10/23/23 02:41 Sodium Chloride IV 10/23/23 02:18 Infused ONCE ONE Infusion Sodium Chloride 1,000 mls @ 999 mls/hr 10/23/23 03:02 10/23/23 04:43 Ns IV 10/23/23 04:02 Infused .Q1H1M ONE Infusion Sodium Chloride 1,000 mls @ 999 mls/hr 10/23/23 04:15 10/23/23 04:43 Ns IV 10/23/23 05:15 999 mls/hr .Q1H1M HARRISON Administration Medical Decision Making Medical Decision Making MDM Narrative: Patient has hyperglycemia likely from increased use of insulin started on D5 also received glucagon chest x-ray without any infiltrate patient is on metformin, no source of infection at this time patient's lactic was 2.5 likely when elevated WBC count patient has received IV fluids and IV antibiotics pending cultures 330 am patient's POC dropped to 33 already on dextrose drip give dextrose 50% IV push 25 g Patient does have history of sleep apnea supposed to be on CPAP at home which she is not using it noted to be slightly acidotic placed on BiPAP in the ER seen by hospitalist will admit patient for prolonged hypoglycemia with pneumonia, CT scan just showed bilateral basal infiltrate Differential Diagnosis Differential Diagnoses: The differential diagnosis associated with the presentation includes Hyperglycemia/metabolic encephalopathy/pneumonia Admission/Observation Consideration of admission/observation: Escalation of care including admission/observation considered Consult Healthcare Provider Management of the patient was discussed with: Hospitalist Lab Data MDM Lab Attestation statement: I reviewed the patient's lab results. 10/23/23 04:18 10/23/23 04:18 Labs: Lab Results 10/23/23 10/23/23 10/23/23 Range/Units 01:29 01:30 01:48 WBC 13.3 H (4.8-10.8) X10*3/uL RBC 4.17 L (4.20-5.50) X10*6/uL Hgb 12.7 (12.0-16.0) g/dl Hct 39.6 (37.0-47.0) % MCV 95.0 (80.0-98.0) fL MCH 30.5 (27.0-33.0) pg MCHC 32.1 (31.0-35.0) g/dl RDW 13.7 (11.0-16.0) % Plt Count 301 (160-400) X10*3/uL MPV 9.1 L (9.4-12.3) fL Immature Gran % (Auto) 0.5 H (0.0-0.4) % Neut % (Auto) 77.7 H (45-73) % Lymph % (Auto) 15.3 L (20-40) % [place] % (Auto) 5.5 (2-11) % Eos % (Auto) 0.8 (0-4) % Baso % (Auto) 0.2 (0-2) % Lymph # (Auto) 2.0 (1.2-4.9) X10*3/uL [place] # (Auto) 0.7 (0.1-1.2) X10*3/uL Eos # (Auto) 0.1 (0.0-0.4) X10*3/uL Baso # (Auto) 0.0 (0.0-0.2) X10*3/uL Abs Immat Gran (auto) 0.06 H (0.00-0.03) X10*3/uL Absolute Neuts (auto) 10.3 H (2.0-8.3) x10*3/uL Absolute Nucleated RBC 0.000 (0.0-0.012) X10*3/uL Nucleated RBC % (auto) 0.0 (0.0-0.2) /100WBC Hold Purple Top SEE NOTE PT 11.3 (11.1-13.3) SEC INR 0.9 (0.9-1.1) Sodium 143 (135-145) mmol/L Potassium 3.8 D (3.3-5.1) mmol/L Chloride 106 (96-108) mmol/L Carbon Dioxide 23 (22-29) mmol/L Anion Gap 18 (12-20) BUN 26 H (9-16) mg/dL Creatinine 0.86 (0.5-1.4) mg/dL Estim Creat Clear Calc 69.0 Estimated GFR > 60 POC Glucose 109 83 (60-115) mg/dL Random Glucose 48 L* (60-115) mg/dL Lactic Acid 2.5 H* (0.5-2.0) mmol/L Calcium 10.4 H D (8.4-10.2) mg/dL Magnesium 2.1 (1.6-2.6) mg/dL Total Bilirubin 0.3 (0.0-1.0) mg/dL AST 46 H (5-31) U/L ALT 42 H (0-31) U/L Alkaline Phosphatase 94 (39-117) U/L Troponin I High Sens 3.6 (<3.5-17.0) ng/L Total Protein 7.3 (6.5-8.0) g/dL Albumin 3.9 (3.5-5.0) g/dL Urine Color Urine Appearance Urine pH (5.0-9.0) Ur Specific [place] (1.005-1.025) Urine Protein (Neg-Trace) mg/dL Urine Glucose (UA) (Negative) mg/dL Urine Ketones (Negative) mg/dL Urine Blood (Negative) Urine Nitrite (Negative) Ur Leukocyte Esterase (Negative) Urine RBC (0-2) /HPF Urine WBC (0-5) /HPF Ur Squamous Epith Cells (0-2) /HPF Urine Bacteria (None Seen) Hyaline Casts (0-2) /LPF Influenza Type A (PCR) (Negative) Influenza Type B (PCR) (Negative) RSV RNA Qual (PCR) (Negative) SARS-CoV-2 RNA (RT-PCR) (Negative) 10/23/23 10/23/23 Range/Units 02:15 02:16 WBC (4.8-10.8) X10*3/uL RBC (4.20-5.50) X10*6/uL Hgb (12.0-16.0) g/dl Hct (37.0-47.0) % MCV (80.0-98.0) fL MCH (27.0-33.0) pg MCHC (31.0-35.0) g/dl RDW (11.0-16.0) % Plt Count (160-400) X10*3/uL MPV (9.4-12.3) fL Immature Gran % (Auto) (0.0-0.4) % Neut % (Auto) (45-73) % Lymph % (Auto) (20-40) % [place] % (Auto) (2-11) % Eos % (Auto) (0-4) % Baso % (Auto) (0-2) % Lymph # (Auto) (1.2-4.9) X10*3/uL [place] # (Auto) (0.1-1.2) X10*3/uL Eos # (Auto) (0.0-0.4) X10*3/uL Baso # (Auto) (0.0-0.2) X10*3/uL Abs Immat Gran (auto) (0.00-0.03) X10*3/uL Absolute Neuts (auto) (2.0-8.3) x10*3/uL Absolute Nucleated RBC (0.0-0.012) X10*3/uL Nucleated RBC % (auto) (0.0-0.2) /100WBC Hold Purple Top PT (11.1-13.3) SEC INR (0.9-1.1) Sodium (135-145) mmol/L Potassium (3.3-5.1) mmol/L Chloride (96-108) mmol/L Carbon Dioxide (22-29) mmol/L Anion Gap (12-20) BUN (9-16) mg/dL Creatinine (0.5-1.4) mg/dL Estim Creat Clear Calc Estimated GFR POC Glucose 78 (60-115) mg/dL Random Glucose (60-115) mg/dL Lactic Acid (0.5-2.0) mmol/L Calcium (8.4-10.2) mg/dL Magnesium (1.6-2.6) mg/dL Total Bilirubin (0.0-1.0) mg/dL AST (5-31) U/L ALT (0-31) U/L Alkaline Phosphatase (39-117) U/L Troponin I High Sens (<3.5-17.0) ng/L Total Protein (6.5-8.0) g/dL Albumin (3.5-5.0) g/dL Urine Color Dark Yellow Urine Appearance Clear Urine pH 5.5 (5.0-9.0) Ur Specific [place] 1.025 (1.005-1.025) Urine Protein 30 (1+) H (Neg-Trace) mg/dL Urine Glucose (UA) Negative (Negative) mg/dL Urine Ketones Trace (Negative) mg/dL Urine Blood Negative (Negative) Urine Nitrite Negative (Negative) Ur Leukocyte Esterase Trace H (Negative) Urine RBC 0-2 (0-2) /HPF Urine WBC 0-5 (0-5) /HPF Ur Squamous Epith Cells 6-10 (0-2) /HPF Urine Bacteria None Seen (None Seen) Hyaline Casts 0-2 (0-2) /LPF Influenza Type A (PCR) NEGATIVE (Negative) Influenza Type B (PCR) NEGATIVE (Negative) RSV RNA Qual (PCR) NEGATIVE (Negative) SARS-CoV-2 RNA (RT-PCR) NEGATIVE (Negative) ABG Data Attestation ABG: I personally reviewed and interpreted this ABG as follows: Interpretation: Respiratory acidosis Independent Interpretation I performed an independent interpretation of an: EKG and CT Scan Interpretation: Normal sinus rhythm heart rate 64 beats per minute normal interval right bundle-branch block no acute STT wave changes no acute ischemia Radiology Impression Discussion of test interpretation with radiology: I have reviewed the radiologist's reading. Radiologist Impression: CT/CT chest wo IV con IMPRESSION: 1. Left lower lung field infiltrate and minimal right middle lobe infiltrative change. Suspect pneumonia. 2. Mildly displaced lateral left seventh rib fracture. Fleischner guidelines were followed. Critical Care Time Critical Care Time Critical Care Time: Yes Total Critical Care Time: 65 Attestation: The patient was critically ill with a high probability of imminent or life threatening deterioration. I spent greater than 70???minutes of discontinuous time evaluating the patient,delivering critical care at the bedside, discussing and evaluating pertinent data with consultants. Critical care time does not include time spent performing separately billable procedures or teaching. Total time spent performing critical care was 65???minutes. Discharge Plan Discharge Clinical Impression: Hypoglycemia associated with type 2 diabetes mellitus, Acute metabolic encephalopathy, Acute on chronic respiratory acidosis, Pneumonia Patient Disposition: Admitted As Inpatient
[2023-10-23 03:02] LABS: Influenza A PCR NEGATIVE (Negative); Influenza B PCR NEGATIVE (Negative); Resp Syncy Virus RNA Qual PCR NEGATIVE (Negative); SARS COV2 PCR INHOUSE NEGATIVE (Negative)
--- NOTE | 2023-10-23 03:20 | PM.IMHP ---
History of Present Illness Date of Service: 10/23/23 Chief Complaint: AMS This is a 73-year-old female with pertinent history of CASSANDRA/OHS non compliant with BiPAP, insulin-dependent diabetes mellitus, mood disorder, chronic hypoxic respiratory failure due to asthma-COPD overlap syndrome on 2 L supplemental oxygen, hypertension, mixed hyperlipidemia, history of DVT and PE currently not on anticoagulation who was brought to the emergency department for evaluation of altered mentation. History was obtained with the help of daughter at bedside. Patient is only eye opening to verbal stimulus at the time of my evaluation. Patient was found to be coughing with sputum production. She was seen in the ER on 10/15 and discharged home with p.o. antibiotics for community-acquired pneumonia. As per the daughter, patient had a new insulin pump about 3-4 weeks ago. The patient called the daughter around midnight stating she was not feeling well. Upon family arrival, patient with decreased mentation and EMS found that the POC was 68. In the emergency department, initial blood glucose in the 40s and she was found to be hypothermic. Patient was initiated on D5 fluids and kehinde hugger. Review of Systems Review of Systems: Yes Unobtainable due to mental status PMFSH Medical History COPD exacerbation C. difficile enteritis COVID-19 DVT (deep venous thrombosis) Pulmonary hypertension Pulmonary emboli Acute on chronic respiratory failure with hypoxia and hypercapnia Chronic respiratory failure [place] (hard of hearing) PONV (postoperative nausea and vomiting) Post herpetic neuralgia Pneumonia Back pain Morbid obesity Chest crackles Cardiomegaly Asthma-COPD overlap syndrome Acute respiratory failure Hyperlipidemia Hypertension Diabetes Arnold-Chiari malformation Arthritis Fibromyalgia Cough CASSANDRA treated with BiPAP Asthma Sinusitis Family History Mother HTN (hypertension) Breast cancer Father Primary cancer of bone marrow Surgical History Hx of eye surgery History of esophagogastroduodenoscopy (EGD) H/O colonoscopy Hx of laparoscopic gastric banding H/O bilateral breast reduction surgery H/O brain surgery Social History Household Members: Other Household Members Other:: granddaughter Housing: Apartment Are you a primary healthcare administrative assistant to a significant other at home: No Do you presently have visiting nurse or other home services: Yes ([employer]) Unable to assess alcohol history related to: Unable to respond Alcohol intake: never Patient Tobacco Use Status: Former Tobacco user Tobacco use type: Cigarette Years Smoked: 15 +/- Use of substances other than those prescribed or required for medical reasons: Unable to respond Advance Directives: Yes Advance Directives on File: Yes Advance Directives Date on File: 11/11/21 Nutrition Risks: No Nutritional Risk Meds Allergies Allergy/AdvReac Type Severity Reaction Status Date / Time aspirin [ASPIRIN] Allergy Intermediate GI UPSET, Verified 10/23/23 01:46 stomach pain latex [LATEX] Allergy Intermediate HIVES Verified 10/23/23 01:46 Active Medications: Current Medications Dextrose (D5w) 1,000 mls @ 80 mls/hr IVCONT .[id number] HARRISON Last Admin: 10/23/23 02:14 Dose: 80 mls/hr Sodium Chloride (Ns) 1,000 mls @ 999 mls/hr IV .Q1H1M ONE Stop: 10/23/23 04:02 Last Admin: 10/23/23 03:04 Dose: 999 mls/hr Home Medications ?Medication ?Instructions ?Recorded ?Confirmed ?Last Taken ?Type duloxetine 60 mg capsule,delayed 60 mg PO DAILY 02/06/20 07/06/23 02/27/22 History release ibuprofen 600 mg tablet 600 mg PO TID PRN Pain 02/06/20 07/06/23 Unknown History lisinopril 10 mg tablet 10 mg PO DAILY 02/06/20 07/06/23 02/27/22 History donepezil 5 mg tablet 5 mg PO BEDTIME 11/06/20 07/06/23 02/27/22 History insulin glargine 100 unit/mL (3 54 unit subcut BEDTIME 01/05/21 07/06/23 02/27/22 History mL) subcutaneous pen buspirone 15 mg tablet 1 tab PO BID 11/11/21 07/06/23 02/27/22 History ipratropium bromide 21 mcg (0.03 2 spray intranasal BID 11/11/21 07/06/23 02/27/22 History %) nasal spray ketoconazole 2 % shampoo 1 appl topical 2XW 11/11/21 07/06/23 02/27/22 History vibegron 75 mg tablet (Gemtesa) 75 mg PO DAILY 11/11/21 07/06/23 02/27/22 History Oxygen Home Use 01/18/22 07/06/23 Unknown History meloxicam 15 mg tablet 15 mg PO DAILY 02/23/22 07/06/23 02/27/22 History acetaminophen 500 mg tablet 650 mg PO Q6H PRN fever or pain 02/28/22 07/06/23 02/27/22 History (Tylenol Extra Strength) pregabalin 150 mg capsule 150 mg PO DAILY 03/11/22 07/06/23 Unknown History insulin aspart U-100 100 unit/mL 10 - 18 sliding scale dose subcut 06/10/22 07/06/23 Unknown History (3 mL) subcutaneous pen QIDACHS lorazepam 1 mg tablet 1 mg PO DAILY PRN Anxiety 08/03/22 07/06/23 Unknown History gabapentin 100 mg capsule 100 mg PO BID 08/24/22 07/06/23 Unknown History trazodone 50 mg tablet 25 mg PO BEDTIME PRN Insomnia 08/24/22 07/06/23 Unknown History lancets 28 gauge (FreeStyle 09/09/22 07/06/23 Unknown History Lancets) montelukast 10 mg tablet 10 mg PO DAILY 09/09/22 07/06/23 Unknown History aripiprazole 5 mg tablet 5 mg PO DAILY 10/11/22 07/06/23 Unknown History buspirone 30 mg tablet 30 mg PO BID 10/11/22 07/06/23 Unknown History clonazepam 0.5 mg tablet 0.5 mg PO BID PRN anxiety 10/11/22 07/06/23 Unknown History darifenacin 15 mg tablet,extended 15 mg PO DAILY 10/11/22 07/06/23 Unknown History release 24 hr zolpidem 10 mg tablet 10 mg PO BEDTIME PRN Insomnia 10/11/22 07/06/23 Unknown History nebulizers 03/14/23 07/06/23 Unknown History fluticasone fur. 200 mcg-umeclid 1 ea inhalation DAILY 04/27/23 07/06/23 Unknown History 62.5 mcg-vilant 25 mcg inhalat.powder (Trelegy Ellipta) atorvastatin 40 mg tablet 40 mg PO DAILY 05/15/23 07/06/23 Unknown History metformin 1,000 mg tablet 1,000 mg PO BID 05/15/23 07/06/23 Unknown History Physical Exam Vital Signs and Narrative: Vital Signs: Last Vital Signs Temp 93.0 F L 10/23/23 02:47 Pulse 65 10/23/23 02:47 Resp 16 10/23/23 02:47 BP 100/31 L 10/23/23 02:47 Pulse Ox 96 10/23/23 02:47 O2 Del Method Nasal Cannula 10/23/23 02:47 O2 Flow Rate 1 10/23/23 02:47 Oxygen Flow Rate 1 10/23/23 01:31 BMI result Body Mass Index 33.2 Middle-aged female lying in bed on NIV Neck supple, no JVD Regular rate and rhythm, S1-S2 heard Left-sided crackles heard and wheezing Abdomen soft nontender, no guarding, no rigidity Patient awakens to verbal stimulus but falls back asleep, unable to assess orientation, not following commands Psych: Drowsy No pedal edema Results Labs 10/23/23 04:18 10/23/23 04:18 Labs: Laboratory Results - last 24 hr 10/23/23 10/23/23 10/23/23 01:29 01:30 01:48 MCV 95.0 MCH 30.5 MCHC 32.1 RDW 13.7 Plt Count 301 MPV 9.1 L Immature Gran % (Auto) 0.5 H Neut % (Auto) 77.7 H Lymph % (Auto) 15.3 L [place] % (Auto) 5.5 Eos % (Auto) 0.8 Baso % (Auto) 0.2 Lymph # (Auto) 2.0 [place] # (Auto) 0.7 Eos # (Auto) 0.1 Baso # (Auto) 0.0 Abs Immat Gran (auto) 0.06 H Absolute Neuts (auto) 10.3 H Absolute Nucleated RBC 0.000 Nucleated RBC % (auto) 0.0 Hold Purple Top SEE NOTE PT 11.3 INR 0.9 Anion Gap 18 Estim Creat Clear Calc 69.0 Estimated GFR > 60 POC Glucose 109 83 Random Glucose 48 L* Lactic Acid 2.5 H* Calcium 10.4 H D Magnesium 2.1 Total Bilirubin 0.3 AST 46 H ALT 42 H Alkaline Phosphatase 94 Troponin I High Sens 3.6 Total Protein 7.3 Albumin 3.9 Urine Color Urine Appearance Urine pH Ur Specific Jackson Urine Protein Urine Glucose (UA) Urine Ketones Urine Blood Urine Nitrite Ur Leukocyte Esterase Urine RBC Urine WBC Ur Squamous Epith Cells Urine Bacteria Hyaline Casts Influenza Type A (PCR) Influenza Type B (PCR) RSV RNA Qual (PCR) SARS-CoV-2 RNA (RT-PCR) 10/23/23 10/23/23 02:15 02:16 MCV MCH MCHC RDW Plt Count MPV Immature Gran % (Auto) Neut % (Auto) Lymph % (Auto) [place] % (Auto) Eos % (Auto) Baso % (Auto) Lymph # (Auto) [place] # (Auto) Eos # (Auto) Baso # (Auto) Abs Immat Gran (auto) Absolute Neuts (auto) Absolute Nucleated RBC Nucleated RBC % (auto) Hold Purple Top PT INR Anion Gap Estim Creat Clear Calc Estimated GFR POC Glucose 78 Random Glucose Lactic Acid Calcium Magnesium Total Bilirubin AST ALT Alkaline Phosphatase Troponin I High Sens Total Protein Albumin Urine Color Dark Yellow Urine Appearance Clear Urine pH 5.5 Ur Specific Jackson 1.025 Urine Protein 30 (1+) H Urine Glucose (UA) Negative Urine Ketones Trace Urine Blood Negative Urine Nitrite Negative Ur Leukocyte Esterase Trace H Urine RBC 0-2 Urine WBC 0-5 Ur Squamous Epith Cells 6-10 Urine Bacteria None Seen Hyaline Casts 0-2 Influenza Type A (PCR) NEGATIVE Influenza Type B (PCR) NEGATIVE RSV RNA Qual (PCR) NEGATIVE SARS-CoV-2 RNA (RT-PCR) NEGATIVE Imaging Radiologist's Impressions: Impressions Chest X-Ray 10/23/23 02:05 IMPRESSION: No acute cardiopulmonary disease. Assessment and Plan (1) Sepsis: Status: Acute (2) Acute encephalopathy: Status: Acute (3) Hypoglycemia: Status: Acute (4) Hypothermia: Status: Acute Plan This is a 73-year-old female with pertinent history of CASSANDRA/OHS non compliant with BiPAP, insulin-dependent diabetes mellitus, mood disorder, chronic hypoxic respiratory failure due to asthma-COPD overlap syndrome on 2 L supplemental oxygen, hypertension, mixed hyperlipidemia, history of DVT and PE currently not on anticoagulation who was brought to the emergency department for evaluation of altered mentation. #. Acute metabolic encephalopathy and severe sepsis due to left-sided pneumonia: Will admit patient and initiate empiric IV ceftriaxone and azithromycin for CAP. Lactic acid and blood culture obtained. NPO until mentation improves. Resuscitated with IV crystalloids #. Hypoglycemia in a patient with insulin-dependent diabetes mellitus due to sepsis: Initiated D5LR with frequent Accu-Cheks. #. Acute lactic acidosis due to sepsis #. Hypothermia in the setting of sepsis and hypoglycemia #. Chronic hypoxemic respiratory failure due to asthma-COPD overlap syndrome with mild exacerbation. Uses 2 L supplemental oxygen at baseline. Initiating IV steroids, scheduled and p.r.n. DuoNebs. #. CASSANDRA/OHS: Continue BiPAP at bedtime #. Mood disorder: Hold p.o. mood stabilizers until mentation improves #. History of DVT/PE: Anticoagulation was discontinued > 8 months ago #. Mixed hyperlipidemia: On statin Med rec pending DVT prophylaxis: Lovenox DNR/DNI. MOLST form present on admission Admit as inpatient and will require two night minimum hospital stay for IV antibiotics, close monitoring of blood glucose, IV steroids, monitoring of mentation (as above), which is not possible in a lesser acute setting. Quality Stroke Does the patient have a stroke diagnosis?: No VTE Prior VTE?: No VTE Risk Level:: Medical - moderate - high VTE Device Contraindication: Treatment Not Indicated VTE Drug Contraindication: N/A - Med Ordered
[2023-10-23 03:38] LABS: VBG Base Excess -2.5 mmol/L; VBG HCO3 24 mmol/L (22-26); VBG pCO2 51 mmHg; VBG pH 7.28 (7.32-7.43); VBG pO2 131 mmHg
[2023-10-23 03:39] LABS: Venous Blood Gas Refer to POC result
[2023-10-23] MEDS: Dextrose 50 % 25 GM/50 ML SYRINGE IVPUSH (03:44)
[2023-10-23 03:45] LABS: Reflex Lactate? Lactic Acid Added
[2023-10-23 03:50] LABS: Glucose, Whole Blood 182 mg/dL (60-115)
[2023-10-23 03:50] LABS: Glucose, Whole Blood 33 mg/dL (60-115)
[2023-10-23 04:23] LABS: Glucose, Whole Blood 106 mg/dL (60-115); MANUAL DIFF FLAG NO
[2023-10-23 04:24] LABS: Basophils Percent Auto 0.3 % (0-2); Eosinophils Percent Auto 0.1 % (0-4); Hematocrit 36.3 % (37.0-47.0); Hemoglobin 11.6 g/dl (12.0-16.0); Imm Gran Abs Auto 0.04 X10*3/uL (0.00-0.03); Imm Gran Pct Auto 0.4 % (0.0-0.4); Lymphocytes Absolute Auto 1.2 X10*3/uL (1.2-4.9); Lymphocytes Percent Auto 11.5 % (20-40); Mean Corpuscular Hemoglobin 30.4 pg (27.0-33.0); Mean Corpuscular Volume 95.3 fL (80.0-98.0); Mean Platelet Volume 9.3 fL (9.4-12.3); Monocytes Absolute Auto 0.3 X10*3/uL (0.1-1.2); Monocytes Percent Auto 3.1 % (2-11); Neutrophils Absolute Auto 8.5 x10*3/uL (2.0-8.3); Neutrophils Percent Auto 84.6 % (45-73); Platelet Count 245 X10*3/uL (160-400); Red Blood Count 3.81 X10*6/uL (4.20-5.50); Red Cell Distribution Width 13.8 % (11.0-16.0)
[2023-10-23 04:39] LABS: Anion Gap 12 (12-20); Blood Urea Nitrogen 26 mg/dL (9-16); Calcium 9.2 mg/dL (8.4-10.2); Carbon Dioxide 20 mmol/L (22-29); Chloride 112 mmol/L (96-108); Creatinine Clr Calc Pharmacy 80.2; Estimated Glomerular Filt Rate > 60; Glucose Random 102 mg/dL (60-115); Potassium 3.4 mmol/L (3.3-5.1); Sodium 141 mmol/L (135-145); ~Lactic Acid-LAB USE ONLY 2.2 mmol/L (0.5-2.0)
[2023-10-23 05:46] LABS: Glucose, Whole Blood 39 mg/dL (60-115)
[2023-10-23] MEDS: Dextrose 10 % 250 ML 750 ML IV (06:00)
[2023-10-23 06:22] LABS: Reflex Lactate? 2 Y
[2023-10-23 06:27] LABS: Glucose, Whole Blood 125 mg/dL (60-115)
[2023-10-23] MEDS: Dextrose 5 % and Lactated Ring 1,000 ML 125 ML IVCONT (06:31)
[2023-10-23] MEDS: Azithromycin 500 MG in 0.9 % Sodium Chloride 250 ML 125 MG IV (06:39)
[2023-10-23] MEDS: methylPREDNISolone Sod Succ 40 MG/ML VIAL IVPUSH ×2 (06:40→18:25)
[2023-10-23] MEDS: Albuterol/Iprat 2.5/0.5MG 3 ML AMPUL.NEB INHALE ×4 (07:05→19:37)
[2023-10-23 07:15] LABS: Glucose, Whole Blood 95 mg/dL (60-115)
[2023-10-23 07:32] LABS: Glucose, Whole Blood 68 mg/dL (60-115)
[2023-10-23 08:01] LABS: ~Lactic Acid-LAB USE ONLY 2.2 mmol/L (0.5-2.0)
[2023-10-23 08:33] LABS: Glucose, Whole Blood 47 mg/dL (60-115)
[2023-10-23 08:33] LABS: Glucose, Whole Blood 116 mg/dL (60-115)
[2023-10-23] MEDS: Enoxaparin Sodium 40 MG/0.4 ML SYRINGE SUBCUT (08:47)
--- NOTE | 2023-10-23 08:50 | MHC.CM.PN ---
CM MET WITH PTS DAUGHTER, IRBIAN, AT BEDSIDE SHE REPORTS THE PT LIVES ALONE AND IS INDEPENDENT WITH SELF CARE AT BASELINE HER GRANDDAUGHTER ALSO STAYS WITH HER ON AND OFF PT IS ACTIVE WITH [employer] WHEELS, AND HER DAUGHTER THOUGHT THERE WOULD BE VNA SERVICES STARTING AFTER HER ED VISIT LAST WEEK. BUT THEY HAD NO YET INITIATED [facility] AT [facility] HCP ON FILE PCP: [facility]MM DELIVERED DCP TBD PENDING PTS RECOVERY AND POSSIBLY A PT EVAL HOME WITH [facility]? FAMILY TO TRANSPORT
--- NOTE | 2023-10-23 09:10 | PHA.MEDREC ---
Pharmacy Consult ? Medication Reconciliation Pharmacy has completed the medication reconciliation. Spoke to patients Daughter Laura, who then emailed me a list. List did not include Novolog but I did see a recent claim, Called Aleksandr to get the information
[2023-10-23 09:41] LABS: Glucose, Whole Blood 67 mg/dL (60-115)
--- NOTE | 2023-10-23 09:58 | PC.NURSE ---
poc- 67 notified JANUSZ Benson gave her 2 cups of orange juic. will recheck in 30 mins.
--- NOTE | 2023-10-23 10:22 | PM.EVENT ---
Event Note Date of Service: 10/23/23 Event Note: 73-year-old female with pertinent history of CASSANDRA/OHS non compliant with BiPAP, insulin-dependent diabetes mellitus, mood disorder, chronic hypoxic respiratory failure due to asthma-COPD overlap syndrome on 2 L supplemental oxygen, hypertension, mixed hyperlipidemia, history of DVT and PE currently not on anticoagulation who was brought to the emergency department for evaluation of altered mentation. Sepsis secondary to community-acquired pneumonia Leukocytosis, hypothermia, lactic acidosis. Continue IV ceftriaxone and azithromycin Continue oxygen therapy to maintain oxygen saturation greater than 90%, on home oxygen Acute on Chronic hypoxemic respiratory failure due to asthma-COPD overlap syndrome with mild exacerbation. Uses 2 L supplemental oxygen at baseline. continue IV steroids, scheduled and p.r.n. DuoNebs. Acute metabolic encephalopathy secondary to above Resolved Hypoglycemia in a patient with insulin-dependent diabetes mellitus due to sepsis D5LR with frequent Accu-Cheks. patient more awake, diet ordered Acute lactic acidosis due to sepsis Hypothermia. Resolved in the setting of sepsis and hypoglycemia bare hugger off CASSANDRA/OHS Continue BiPAP at bedtime Mood disorder Hold p.o. mood stabilizers until mentation improves History of DVT/PE Anticoagulation was discontinued 8 months ago Mixed hyperlipidemia On statin Obesity class I. BMI 33.2 Weight management DVT prophylaxis: Lovenox Attending Dr. Franklin DNR/DNI. MOLST form present on admission Time Spent With Patient Time: Total time managing care of this patient today ____ minutes.
[2023-10-23 10:58] LABS: Glucose, Whole Blood 54 mg/dL (60-115)
--- NOTE | 2023-10-23 11:19 | PC.NURSE ---
called central supply and storage room left message that we don't have D10 1000cc bags in ED. If they could bring some up.
[2023-10-23 11:54] LABS: Glucose, Whole Blood 148 mg/dL (60-115)
[2023-10-23] MEDS: Dextrose 10 % 1,000 ML 50 ML IVCONT (12:07)
[2023-10-23 13:16] LABS: Glucose, Whole Blood 183 mg/dL (60-115)
--- NOTE | 2023-10-23 14:38 | PC.NURSE ---
poc-250 notified Astrid BOUDREAUX of poc awaiting response.
[2023-10-23] MEDS: Acetaminophen 325 MG TABLET 650 MG PO (14:43)
[2023-10-23] MEDS: LORazepam 1 MG TABLET PO (14:43)
[2023-10-23 14:44] LABS: Glucose, Whole Blood 250 mg/dL (60-115)
--- NOTE | 2023-10-23 16:05 | PC.NURSE ---
Patient still having 8/10 back pain medicated with Tylenol and Ativan with no relief. clifton Resendiz NP.
--- NOTE | 2023-10-23 16:32 | MHC.EDTECH ---
This pct assumed care of Patient at 1500 ,vitals taken ,patient belonings list done ,Pillow given .blood sugar check ,Bed pads change for comfort and Patient was boosted up in bed ,Call figueroa within Pt reach . Plan of care continue .
[2023-10-23 17:23] LABS: Glucose, Whole Blood 258 mg/dL (60-115)
--- NOTE | 2023-10-23 18:14 | PC.NURSE ---
Patient alert and oriented x 3. Patient ambulates with walker at home. Patient on 2l via nasal cannula at home. Patient c/o back pain 10/13 will medicate before she goes up to bed. Patient has a temp sensing belel draining clear yellow urine. Patient no longer on kehinde hugger. 20g iv left dorsal forearm. Blood sugars are finally staying above 100. Dinner has not been brought yet in ED. Will wait to cover blood sugar till food has arrived. tele: sinus rythym Will continue with plan of care. Vital sign stable.
[2023-10-23] MEDS: oxyCODONE HCl Immed Release 5 MG TABLET PO (18:24)
[2023-10-23] MEDS: Insulin Lispro 100 UNIT/ML 3 ML VIAL SUBCUT ×2 (18:31→21:23)
[2023-10-23 18:37] LABS: Glucose, Whole Blood 207 mg/dL (60-115)
[2023-10-23 20:35] LABS: Glucose, Whole Blood 249 mg/dL (60-115)
[2023-10-23] MEDS: Gabapentin 300 MG CAPSULE PO (21:20)
[2023-10-23] MEDS: busPIRone HCl 5 MG TABLET 15 MG PO (21:20)
[2023-10-23] MEDS: Donepezil HCl 5 MG TABLET PO (21:20)
[2023-10-23] MEDS: 0.9 % Sodium Chloride Flush 3 ML SYRINGE IVFLUSH (21:24)
--- NOTE | 2023-10-23 23:22 | PC.RT ---
Pt does not want to wear BIPAP, wears O2
[2023-10-24] VITALS (9 sets, daily range): BP systolic 116–140; BP diastolic 58–70; PULSE 77–92; RESP 18–20; TEMP 36.2–36.4; O2SAT 92–100; BMI 33.4
[2023-10-24] MEDS: cefTRIAXone sodium 1 GM in 0.9 % Sodium Chloride 50 ML IV (02:11)
[2023-10-24] MEDS: oxyCODONE HCl Immed Release 5 MG TABLET PO ×3 (05:19→14:23)
[2023-10-24] MEDS: methylPREDNISolone Sod Succ 40 MG/ML VIAL IVPUSH ×2 (06:38→18:27)
[2023-10-24] MEDS: Azithromycin 500 MG in 0.9 % Sodium Chloride 250 ML 125 MG IV (06:39)
[2023-10-24 07:33] LABS: Glucose, Whole Blood 232 mg/dL (60-115)
[2023-10-24] MEDS: Insulin Lispro 100 UNIT/ML 3 ML VIAL SUBCUT ×4 (08:00→21:07)
[2023-10-24] MEDS: Atorvastatin Calcium 40 MG TABLET PO (08:01)
[2023-10-24] MEDS: busPIRone HCl 5 MG TABLET 15 MG PO ×2 (08:01→21:05)
[2023-10-24] MEDS: DULoxetine HCl 60 MG CAPSULE.DR PO (08:01)
[2023-10-24] MEDS: Acetaminophen 325 MG TABLET 650 MG PO (08:01)
[2023-10-24] MEDS: Enoxaparin Sodium 40 MG/0.4 ML SYRINGE SUBCUT (08:02)
[2023-10-24] MEDS: 0.9 % Sodium Chloride Flush 3 ML SYRINGE IVFLUSH ×3 (08:02→21:10)
[2023-10-24] MEDS: Albuterol/Iprat 2.5/0.5MG 3 ML AMPUL.NEB INHALE ×4 (08:22→20:13)
--- NOTE | 2023-10-24 08:47 | HO.PM.IMPN ---
Subjective Subjective Date of Service: 10/24/23 Review of Systems Follow up PNA, Sepsis, hypoglycemia feeling better today, breathing better Physical Exam Vital Signs: Vital Signs: Last Vital Signs Temp 97.1 F 10/24/23 07:26 Pulse 82 10/24/23 08:24 Resp 18 10/24/23 08:24 BP 116/59 L 10/24/23 07:26 Pulse Ox 93 10/24/23 07:26 O2 Del Method Nasal Cannula 10/24/23 07:26 O2 Flow Rate 2 10/24/23 07:26 Oxygen Flow Rate 1 10/23/23 01:31 BMI result Body Mass Index 33.4 Appearing in no acute distress lung sounds diminished heart regular rate rhythm, clear S1, S2 positive bowel sounds, abdomen is soft, nontender neuro patient is alert x3, no focal deficits Objective Data Active Medications Acetaminophen (Acetaminophen 325 Mg Tablet) 650 mg PO Q6H PRN PRN Reason: Pain, Mild (Pain Scale 1-3), fever or headache Last Admin: 10/24/23 08:01 Dose: 650 mg Documented By: ERIC Albuterol/Ipratropium (Albuterol/Iprat 2.5/0.5mg 3 Ml Ampul.Neb) 3 ml INHALE RQ4H WHILE AWAKE [facility] Last Admin: 10/24/23 08:22 Dose: 3 ml Documented By: DAMON Albuterol/Ipratropium (Albuterol/Iprat 2.5/0.5mg 3 Ml Ampul.Neb) 3 ml INHALE Q4H PRN PRN Reason: Wheezing Atorvastatin Calcium (Atorvastatin Calcium 40 Mg Tablet) 40 mg PO DAILY [facility] Last Admin: 10/24/23 08:01 Dose: 40 mg Documented By: ERIC Buspirone HCl (Buspirone Hcl 5 Mg Tablet) 15 mg PO BID [facility] Last Admin: 10/24/23 08:01 Dose: 15 mg Documented By: ERIC Calcium Carbonate (Calcium Carbonate 750 Mg Tab.Chew) 750 mg PO Q4H PRN PRN Reason: Heartburn Donepezil HCl (Donepezil Hcl 5 Mg Tablet) 5 mg PO BEDTIME [facility] Last Admin: 10/23/23 21:20 Dose: 5 mg Documented By: TANISHA Duloxetine HCl (Duloxetine Hcl 60 Mg Capsule.Dr) 60 mg PO DAILY [facility] Last Admin: 10/24/23 08:01 Dose: 60 mg Documented By: ERIC Enoxaparin Sodium (Enoxaparin Sodium 40 Mg/0.4 Ml Syringe) 40 mg SUBCUT Q24H [facility] Last Admin: 10/24/23 08:02 Dose: 40 mg Documented By: ERIC Gabapentin (Gabapentin 300 Mg Capsule) 300 mg PO BEDTIME [facility] Last Admin: 10/23/23 21:20 Dose: 300 mg Documented By: TANISHA Glucose (Glucose Gel 15 Gm Gel..Gram.) 15 gm PO Q15M PRN; Protocol PRN Reason: per Hypoglycemia Standing Ord. Glucose (Glucose Gel 15 Gm Gel..Gram.) 15 gm PO Q15M PRN; Protocol PRN Reason: per Hypoglycemia Standing Ord. Dextrose (D10) 250 mls @ 750 mls/hr IV Q15M PRN; Protocol PRN Reason: per Hypoglycemia Standing Ord. Last Infusion: 10/23/23 06:20 Dose: Infused Documented By: ROHAN Ceftriaxone Sodium 1 gm/ (Sodium Chloride) 50 mls @ 100 mls/hr IV Q24H [facility] Last Infusion: 10/24/23 02:41 Dose: Infused Documented By: TANISHA Azithromycin 500 mg/ Sodium (Chloride) 250 mls @ 125 mls/hr IV Q24H [facility] Last Infusion: 10/24/23 08:43 Dose: Infused Documented By: ERIC Dextrose (D10) 250 mls @ 750 mls/hr IV Q15M PRN; Protocol PRN Reason: per Hypoglycemia Standing Ord. Insulin Human Lispro (Insulin Lispro 100 Unit/Ml 3 Ml Vial) 0 unit SUBCUT QIDACHS [facility]; Protocol Last Admin: 10/24/23 08:00 Dose: 4 unit Documented By: ERIC Ipratropium [place] (Ipratropium [place] Sam 0.03 % 30 Ml [place]) 2 spray NOSTRIL-B BID [facility] Last Admin: 10/24/23 07:26 Dose: Not Given Documented By: ERIC Non-Admin Reason: Med Not Available Lorazepam (Lorazepam 1 Mg Tablet) 1 mg PO TID PRN PRN Reason: Anxiety Last Admin: 10/23/23 14:43 Dose: 1 mg Documented By: ISABELL Magnesium Hydroxide (Milk Of Magnesia 30 Ml Oral.Susp) 30 ml PO DAILY PRN PRN Reason: Constipation Melatonin (Melatonin 3 Mg Tablet) 6 mg PO BEDTIME PRN PRN Reason: Insomnia Methylprednisolone Sodium Succinate (Methylprednisolone Sod Succ 40 Mg/Ml Vial) 40 mg IVPUSH Q12H [facility] Last Admin: 10/24/23 06:38 Dose: 40 mg Documented By: TANISHA Ondansetron HCl (Ondansetron Hcl 4 Mg/2 Ml Vial) 4 mg IVPUSH Q8H PRN PRN Reason: Nausea and Vomiting Oxycodone HCl (Oxycodone Hcl Immed Release 5 Mg Tablet) 5 mg PO Q4H PRN PRN Reason: Pain, Severe (Pain Scale 7-10) Last Admin: 10/24/23 05:19 Dose: 5 mg Documented By: TANISHA Sodium Chloride (0.9 % Sodium Chloride Flush 3 Ml Syringe) 3 ml IVFLUSH QSHIFT [facility] Last Admin: 10/24/23 08:02 Dose: 3 ml Documented By: ERIC Labs 10/23/23 04:18 10/23/23 04:18 Labs: Laboratory Results - last 24 hr 10/23/23 10/23/23 10/23/23 09:37 10:53 11:47 POC Glucose 67 54 L* 148 H 10/23/23 10/23/23 10/23/23 12:49 14:36 16:31 POC Glucose 183 H 250 H 258 H 10/23/23 10/23/23 10/24/23 18:30 20:10 07:29 POC Glucose 207 H 249 H 232 H Microbiology Microbiology Results: Microbiology 10/23/23 01:30 Blood Culture - Preliminary Blood - Venous No growth after 24 hours. 10/23/23 01:30 Blood Culture - Preliminary Blood - Venous No growth after 24 hours. Assessment and Plan (1) Sepsis: Status: Acute (2) Pneumonia: Status: Acute Plan 73-year-old female with pertinent history of CASSANDRA/OHS non compliant with BiPAP, insulin-dependent diabetes mellitus, mood disorder, chronic hypoxic respiratory failure due to asthma-COPD overlap syndrome on 2 L supplemental oxygen, hypertension, mixed hyperlipidemia, history of DVT and PE currently not on anticoagulation who was brought to the emergency department for evaluation of altered mentation. Sepsis secondary to community-acquired pneumonia. Sepsis resolved Leukocytosis, hypothermia, lactic acidosis. Continue IV ceftriaxone and azithromycin Continue oxygen therapy to maintain oxygen saturation greater than 90%, on home oxygen Acute on Chronic hypoxemic respiratory failure due to asthma-COPD overlap syndrome with mild exacerbation. Uses 2 L supplemental oxygen at baseline. continue IV steroids, scheduled and p.r.n. DuoNebs. Acute metabolic encephalopathy secondary to above Resolved DM2 with Hypoglycemia due to sepsis. Resolved D5LR and D10 initally Now back on sliding scale, lantus at bedtime Ada diet HTN stable BP continue lisinopril Acute lactic acidosis due to sepsis Hypothermia. 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 BMI 33.2 Weight management DVT prophylaxis: Lovenox Attending Dr. Franklin DNR/DNI. MOLST form present on admission Quality Stroke Does the patient have a stroke diagnosis?: No VTE Prior VTE?: No VTE Risk Level:: Medical - moderate - high VTE Device Contraindication: Treatment Not Indicated VTE Drug Contraindication: N/A - Med Ordered
[2023-10-24] MEDS: Furosemide 20 MG TABLET PO (10:15)
[2023-10-24] MEDS: lisinopriL 10 MG TABLET PO (10:15)
[2023-10-24 11:17] LABS: Glucose, Whole Blood 323 mg/dL (60-115)
[2023-10-24 16:41] LABS: Glucose, Whole Blood 313 mg/dL (60-115)
[2023-10-24] MEDS: diphenhydrAMINE HCL 25 MG CAPSULE PO (17:06)
[2023-10-24 20:32] LABS: Glucose, Whole Blood 386 mg/dL (60-115)
[2023-10-24] MEDS: Donepezil HCl 5 MG TABLET PO (21:05)
[2023-10-24] MEDS: Gabapentin 300 MG CAPSULE PO (21:05)
[2023-10-24] MEDS: Insulin Glargine,Hum.rec.anlog 100 UNIT/ML 10 ML VIAL 54 UNIT SUBCUT (21:08)
[2023-10-24] MEDS: Melatonin 3 MG TABLET 6 MG PO (21:15)
[2023-10-25] VITALS (9 sets, daily range): BP systolic 126–134; BP diastolic 60–63; PULSE 62–84; RESP 16–18; TEMP 36–37; O2SAT 90–99
[2023-10-25] MEDS: cefTRIAXone sodium 1 GM in 0.9 % Sodium Chloride 50 ML IV (02:28)
[2023-10-25] MEDS: oxyCODONE HCl Immed Release 5 MG TABLET PO ×4 (05:43→23:34)
[2023-10-25] MEDS: methylPREDNISolone Sod Succ 40 MG/ML VIAL IVPUSH ×2 (05:43→18:37)
[2023-10-25] MEDS: Azithromycin 500 MG in 0.9 % Sodium Chloride 250 ML 125 MG IV (06:34)
[2023-10-25 07:09] LABS: Glucose, Whole Blood 291 mg/dL (60-115)
[2023-10-25] MEDS: Insulin Lispro 100 UNIT/ML 3 ML VIAL SUBCUT ×4 (07:55→20:59)
[2023-10-25] MEDS: DULoxetine HCl 60 MG CAPSULE.DR PO (07:56)
[2023-10-25] MEDS: Furosemide 20 MG TABLET PO (07:56)
[2023-10-25] MEDS: Atorvastatin Calcium 40 MG TABLET PO (07:56)
[2023-10-25] MEDS: Enoxaparin Sodium 40 MG/0.4 ML SYRINGE SUBCUT (07:57)
[2023-10-25] MEDS: lisinopriL 10 MG TABLET PO (07:57)
[2023-10-25] MEDS: busPIRone HCl 5 MG TABLET 15 MG PO ×2 (07:57→20:59)
[2023-10-25] MEDS: Albuterol/Iprat 2.5/0.5MG 3 ML AMPUL.NEB INHALE ×4 (08:37→19:36)
[2023-10-25] MEDS: Acetaminophen 325 MG TABLET 650 MG PO ×2 (09:47→18:46)
[2023-10-25 11:08] LABS: Glucose, Whole Blood 294 mg/dL (60-115)
--- NOTE | 2023-10-25 11:09 | HO.PM.IMPN ---
Subjective Subjective Date of Service: 10/25/23 Interval History: Slowly improving. Able to speak in full sentences lying semi Mcnulty Review of Systems Denies chest pain Admits shortness of breath which is improved since admission Denies nausea vomiting diarrhea Denies fever chills Physical Exam Vital Signs: Vital Signs: Last Vital Signs Temp 98.6 F 10/25/23 07:00 Pulse 62 10/25/23 08:41 Resp 16 10/25/23 08:41 BP 126/60 10/25/23 07:00 Pulse Ox 97 10/25/23 07:00 O2 Del Method Nasal Cannula 10/25/23 07:00 O2 Flow Rate 2 10/25/23 07:00 Oxygen Flow Rate 1 10/23/23 01:31 BMI result Body Mass Index 33.4 Const: Other: Awake alert no acute distress Resp: Other: Diminished at bases with scattered expiratory wheezes Cardio: Other: No S4; positive S1-S2; no S3 murmurs rubs or gallops GI: Other: Soft nontender nondistended normoactive bowel sounds Extrem: Other: No edema bilaterally Objective Data Active Medications Acetaminophen (Acetaminophen 325 Mg Tablet) 650 mg PO Q6H PRN PRN Reason: Pain, Mild (Pain Scale 1-3), fever or headache Last Admin: 10/25/23 09:47 Dose: 650 mg Documented By: CLAUDIA Albuterol/Ipratropium (Albuterol/Iprat 2.5/0.5mg 3 Ml Ampul.Neb) 3 ml INHALE RQ4H WHILE AWAKE [facility] Last Admin: 10/25/23 08:37 Dose: 3 ml Documented By: MYRNA Albuterol/Ipratropium (Albuterol/Iprat 2.5/0.5mg 3 Ml Ampul.Neb) 3 ml INHALE Q4H PRN PRN Reason: Wheezing Atorvastatin Calcium (Atorvastatin Calcium 40 Mg Tablet) 40 mg PO DAILY [facility] Last Admin: 10/25/23 07:56 Dose: 40 mg Documented By: MIRANDA Buspirone HCl (Buspirone Hcl 5 Mg Tablet) 15 mg PO BID [facility] Last Admin: 10/25/23 07:57 Dose: 15 mg Documented By: MIRANDA Calcium Carbonate (Calcium Carbonate 750 Mg Tab.Chew) 750 mg PO Q4H PRN PRN Reason: Heartburn Diphenhydramine HCl (Diphenhydramine Hcl 25 Mg Capsule) 25 mg PO Q6H PRN PRN Reason: itchiness Last Admin: 10/24/23 17:06 Dose: 25 mg Documented By: ERIC Donepezil HCl (Donepezil Hcl 5 Mg Tablet) 5 mg PO BEDTIME [facility] Last Admin: 10/24/23 21:05 Dose: 5 mg Documented By: TANISHA Duloxetine HCl (Duloxetine Hcl 60 Mg Capsule.) 60 mg PO DAILY [facility] Last Admin: 10/25/23 07:56 Dose: 60 mg Documented By: MIRANDA Enoxaparin Sodium (Enoxaparin Sodium 40 Mg/0.4 Ml Syringe) 40 mg SUBCUT Q24H [facility] Last Admin: 10/25/23 07:57 Dose: 40 mg Documented By: MIRANDA Furosemide (Furosemide 20 Mg Tablet) 20 mg PO DAILY [facility]; Protocol Last Admin: 10/25/23 07:56 Dose: 20 mg Documented By: MIRANDA Gabapentin (Gabapentin 300 Mg Capsule) 300 mg PO BEDTIME [facility] Last Admin: 10/24/23 21:05 Dose: 300 mg Documented By: TANISHA Glucose (Glucose Gel 15 Gm Gel..Gram.) 15 gm PO Q15M PRN; Protocol PRN Reason: per Hypoglycemia Standing Ord. Glucose (Glucose Gel 15 Gm Gel..Gram.) 15 gm PO Q15M PRN; Protocol PRN Reason: per Hypoglycemia Standing Ord. Dextrose (D10) 250 mls @ 750 mls/hr IV Q15M PRN; Protocol PRN Reason: per Hypoglycemia Standing Ord. Last Infusion: 10/23/23 06:20 Dose: Infused Documented By: ROHAN Ceftriaxone Sodium 1 gm/ (Sodium Chloride) 50 mls @ 100 mls/hr IV Q24H [facility] Last Infusion: 10/25/23 03:00 Dose: Infused Documented By: TANISHA Azithromycin 500 mg/ Sodium (Chloride) 250 mls @ 125 mls/hr IV Q24H [facility] Last Infusion: 10/25/23 08:45 Dose: Infused Documented By: MIRANDA Dextrose (D10) 250 mls @ 750 mls/hr IV Q15M PRN; Protocol PRN Reason: per Hypoglycemia Standing Ord. Insulin Glargine (Insulin Glargine,Hum.Rec.Anlog 100 Unit/Ml 10 Ml Vial) 54 unit SUBCUT BEDTIME [facility] Last Admin: 10/24/23 21:08 Dose: 54 unit Documented By: TANISHA Comments: Iss and lantus only per md for POC 386 Insulin Human Lispro (Insulin Lispro 100 Unit/Ml 3 Ml Vial) 0 unit SUBCUT QIDACHS [facility]; Protocol Last Admin: 10/25/23 07:55 Dose: 6 unit Documented By: MIRANDA Ipratropium [place] (Ipratropium [place] Sam 0.03 % 30 Ml [place]) 2 spray NOSTRIL-B BID [facility] Last Admin: 10/24/23 21:11 Dose: Not Given Documented By: TANISHA Non-Admin Reason: not availaBLE Lisinopril (Lisinopril 10 Mg Tablet) 10 mg PO DAILY [facility]; Protocol Last Admin: 10/25/23 07:57 Dose: 10 mg Documented By: MIRANDA Lorazepam (Lorazepam 1 Mg Tablet) 1 mg PO TID PRN PRN Reason: Anxiety Last Admin: 10/23/23 14:43 Dose: 1 mg Documented By: ISABELL Magnesium Hydroxide (Milk Of Magnesia 30 Ml Oral.Susp) 30 ml PO DAILY PRN PRN Reason: Constipation Melatonin (Melatonin 3 Mg Tablet) 6 mg PO BEDTIME PRN PRN Reason: Insomnia Last Admin: 10/24/23 21:15 Dose: 6 mg Documented By: TANISHA Methylprednisolone Sodium Succinate (Methylprednisolone Sod Succ 40 Mg/Ml Vial) 40 mg IVPUSH Q12H [facility] Last Admin: 10/25/23 05:43 Dose: 40 mg Documented By: TANISHA Non-Formulary Medication (Vibegron [Gemtesa]) 75 mg PO DAILY [facility] Ondansetron HCl (Ondansetron Hcl 4 Mg/2 Ml Vial) 4 mg IVPUSH Q8H PRN PRN Reason: Nausea and Vomiting Oxycodone HCl (Oxycodone Hcl Immed Release 5 Mg Tablet) 5 mg PO Q4H PRN PRN Reason: Pain, Severe (Pain Scale 7-10) Last Admin: 10/25/23 09:47 Dose: 5 mg Documented By: CLAUDIA Sodium Chloride (0.9 % Sodium Chloride Flush 3 Ml Syringe) 3 ml IVFLUSH QSHIFT [facility] Last Admin: 10/25/23 08:02 Dose: Not Given Documented By: MIRANDA Non-Admin Reason: IV Running Labs 10/23/23 04:18 10/23/23 04:18 Labs: Laboratory Results - last 24 hr 10/24/23 10/24/23 10/24/23 11:06 16:32 20:28 POC Glucose 323 H 313 H 386 H* 10/25/23 10/25/23 06:59 11:03 POC Glucose 291 H 294 H Microbiology Microbiology Results: Microbiology 10/23/23 01:30 Blood Culture - Preliminary Blood - Venous No growth after 48 hours. 10/23/23 01:30 Blood Culture - Preliminary Blood - Venous No growth after 48 hours. Assessment and Plan (1) Pneumonia: Status: Acute (2) Sepsis: Status: Acute Plan 73-year-old female with pertinent history of CASSANDRA/OHS non compliant with BiPAP, insulin-dependent diabetes mellitus, mood disorder, chronic hypoxic respiratory failure due to asthma-COPD overlap syndrome on 2 L supplemental oxygen, hypertension, mixed hyperlipidemia, history of DVT and PE currently not on anticoagulation who was brought to the emergency department for evaluation of altered mentation. 1.Sepsis secondary to community-acquired pneumonia. Sepsis resolved -IV ceftriaxone and azithromycin (2) -pulse dose methylprednisolone -titrate O2 to maintain sats greater than or equal to 90% -DuoNebs p.r.n. for wheezing 2.Acute metabolic encephalopathy -resolved 3.DM2 -acceptable control on current therapies -lispro correctional scale -adjust as indicated 4.HTN -acceptable control on outpatient therapies -adjust as clinically indicated 5. CASSANDRA -CPAP at HS 6.History of DVT/PE -Anticoagulation was discontinued 8 months ago Lovenox DNR DNI Requires ongoing hospitalization for continuation of antibiotic therapy along with pulse dose steroids to treat pneumonia Quality Stroke Does the patient have a stroke diagnosis?: No VTE Prior VTE?: No VTE Risk Level:: Medical - moderate - high VTE Device Contraindication: Treatment Not Indicated VTE Drug Contraindication: N/A - Med Ordered
[2023-10-25] MEDS: LORazepam 1 MG TABLET PO (11:28)
[2023-10-25] MEDS: Calcium Carbonate 750 MG TAB.CHEW PO (12:31)
--- NOTE | 2023-10-25 13:58 | MHC.CM.PN ---
EMR reviewed and per MD rounds, pt is not medically cleared for discharge due to management of pneumonia, requiring IV antibiotics.
[2023-10-25 16:05] LABS: Glucose, Whole Blood 258 mg/dL (60-115)
[2023-10-25] MEDS: 0.9 % Sodium Chloride Flush 3 ML SYRINGE IVFLUSH ×2 (16:55→23:35)
[2023-10-25 20:23] LABS: Glucose, Whole Blood 372 mg/dL (60-115)
[2023-10-25] MEDS: Insulin Glargine,Hum.rec.anlog 100 UNIT/ML 10 ML VIAL 54 UNIT SUBCUT (20:59)
[2023-10-25] MEDS: Gabapentin 300 MG CAPSULE PO (21:00)
[2023-10-25] MEDS: Donepezil HCl 5 MG TABLET PO (21:00)
[2023-10-25 22:12] LABS: Glucose, Whole Blood 337 mg/dL (60-115)
[2023-10-26] VITALS (7 sets, daily range): BP systolic 142–147; BP diastolic 67–99; PULSE 64–89; RESP 17–18; TEMP 36.6–36.7; O2SAT 95–97
[2023-10-26] MEDS: cefTRIAXone sodium 1 GM in 0.9 % Sodium Chloride 50 ML IV (02:32)
[2023-10-26] MEDS: methylPREDNISolone Sod Succ 40 MG/ML VIAL IVPUSH (05:53)
[2023-10-26] MEDS: Azithromycin 500 MG in 0.9 % Sodium Chloride 250 ML 125 MG IV (05:54)
[2023-10-26 06:04] LABS: MANUAL DIFF FLAG NO
[2023-10-26 06:06] LABS: Basophils Percent Auto 0.2 % (0-2); Hematocrit 35.7 % (37.0-47.0); Hemoglobin 11.4 g/dl (12.0-16.0); Imm Gran Abs Auto 0.23 X10*3/uL (0.00-0.03); Imm Gran Pct Auto 1.9 % (0.0-0.4); Lymphocytes Absolute Auto 1.4 X10*3/uL (1.2-4.9); Lymphocytes Percent Auto 11.3 % (20-40); Mean Corpuscular HGB Conc 31.9 g/dl (31.0-35.0); Mean Corpuscular Hemoglobin 29.7 pg (27.0-33.0); Mean Platelet Volume 9.8 fL (9.4-12.3); Monocytes Absolute Auto 0.5 X10*3/uL (0.1-1.2); Monocytes Percent Auto 3.7 % (2-11); Neutrophils Absolute Auto 10.1 x10*3/uL (2.0-8.3); Neutrophils Percent Auto 82.9 % (45-73); Platelet Count 268 X10*3/uL (160-400); Red Blood Count 3.84 X10*6/uL (4.20-5.50); Red Cell Distribution Width 13.6 % (11.0-16.0); White Blood Count 12.2 X10*3/uL (4.8-10.8)
[2023-10-26 06:22] LABS: Alanine Aminotransferase 128 U/L (0-31); Albumin Level 3.4 g/dL (3.5-5.0); Alkaline Phosphatase 69 U/L (39-117); Anion Gap 13 (12-20); Aspartate Amino Transferase 96 U/L (5-31); Bilirubin Total 0.2 mg/dL (0.0-1.0); Blood Urea Nitrogen 36 mg/dL (9-16); Calcium 9.5 mg/dL (8.4-10.2); Carbon Dioxide 25 mmol/L (22-29); Chloride 104 mmol/L (96-108); Creatinine Clr Calc Pharmacy 66.9; Estimated Glomerular Filt Rate > 60; Glucose Fasting 305 mg/dL (60-99); Potassium 4.9 mmol/L (3.3-5.1); Sodium 137 mmol/L (135-145); Total Protein 6.4 g/dL (6.5-8.0)
[2023-10-26 07:09] LABS: Glucose, Whole Blood 266 mg/dL (60-115)
[2023-10-26] MEDS: Albuterol/Iprat 2.5/0.5MG 3 ML AMPUL.NEB INHALE ×3 (07:21→15:21)
[2023-10-26] MEDS: Insulin Lispro 100 UNIT/ML 3 ML VIAL SUBCUT ×2 (08:08→11:47)
[2023-10-26] MEDS: 0.9 % Sodium Chloride Flush 3 ML SYRINGE IVFLUSH (08:09)
[2023-10-26] MEDS: Furosemide 20 MG TABLET PO (08:10)
[2023-10-26] MEDS: DULoxetine HCl 60 MG CAPSULE.DR PO (08:10)
[2023-10-26] MEDS: Ipratropium Bromide Nas 0.03 % 30 ML SPRAY 2 SPRAY NOSTRIL-B (08:10)
[2023-10-26] MEDS: busPIRone HCl 5 MG TABLET 15 MG PO (08:10)
[2023-10-26] MEDS: lisinopriL 10 MG TABLET PO (08:10)
[2023-10-26] MEDS: Enoxaparin Sodium 40 MG/0.4 ML SYRINGE SUBCUT (08:10)
[2023-10-26 11:07] LABS: Glucose, Whole Blood 349 mg/dL (60-115)
--- NOTE | 2023-10-26 11:40 | P.DS_ITS ---
DS: Providers Provider Date of Service: 10/26/23 Date of admission: 10/23/23 06:22 Date of discharge: 10/26/23 Primary care physician: Rito Olivas MD Attending physician on discharge: Jarod Navarro Discharging clinician: Namrata Beltran DS: Diagnosis Discharge Diagnosis (1) Pneumonia: Status: Acute (2) Sepsis: Status: Acute DS: Summary Hospital Course Hospital Course: From H&P on the day of admission This is a 73-year-old female with pertinent history of CASSANDRA/OHS non compliant with BiPAP, insulin-dependent diabetes mellitus, mood disorder, chronic hypoxic respiratory failure due to asthma-COPD overlap syndrome on 2 L supplemental oxygen, hypertension, mixed hyperlipidemia, history of DVT and PE currently not on anticoagulation who was brought to the emergency department for evaluation of altered mentation. History was obtained with the help of daughter at bedside. Patient is only eye opening to verbal stimulus at the time of my evaluation. Patient was found to be coughing with sputum production. She was seen in the ER on 10/15 and discharged home with p.o. antibiotics for community-acquired pneumonia. As per the daughter, patient had a new insulin pump about 3-4 weeks ago. The patient called the daughter around midnight stating she was not feeling well. Upon family arrival, patient with decreased mentation and EMS found that the POC was 68. In the emergency department, initial blood glucose in the 40s and she was found to be hypothermic. Patient was initiated on D5 fluids and kehinde hugger. Sepsis secondary to community-acquired pneumonia. Met criteria with Leukocytosis, hypothermia, lactic acidosis. Sepsis resolved. She was treated with IV ceftriaxone and azithromycin and was able to be weaned down to baseline 2 L of supplemental oxygen with treatment her hypoglycemia, hypothermia and metabolic encephalopathy resolved. Her respiratory status has improved significantly and she is eager to return home. She was evaluated by Physical therapy who recommended home with physical therapy. Acute on Chronic hypoxemic respiratory failure due to asthma-COPD overlap syndrome with mild exacerbation. Uses 2 L supplemental oxygen at baseline. Treated with systemic IV steroids, scheduled and p.r.n. DuoNebs. Acute metabolic encephalopathy secondary to above Resolved DM2 with Hypoglycemia due to sepsis. Resolved D5LR and D10 initially. Now back on sliding scale, lantus at bedtime. Tolerating diet. Blood sugars trending up, To resume previous diabetic regimen upon discharge HTN stable BP continue lisinopril Acute lactic acidosis due to sepsis Hypothermia. Resolved in the setting of sepsis and hypoglycemia. Time Attestation Discharge Coordination Time (in mins): 40 Quality: Safe Use of Opioids Does Pt have an Active Cancer Diagnosis on the Problem List?: No Quality: Stroke Does the patient have a stroke diagnosis?: No Physical Exam Vital Signs: Vital Signs: Last Vital Signs Temp 98 F 10/26/23 06:59 Pulse 67 10/26/23 07:23 Resp 18 10/26/23 07:23 BP 142/71 H 10/26/23 07:15 Pulse Ox 96 10/26/23 06:59 O2 Del Method Nasal Cannula 10/26/23 06:59 O2 Flow Rate 2 10/26/23 06:59 Oxygen Flow Rate 1 10/23/23 01:31 BMI result Body Mass Index 33.4 Const: General: cooperative, comfortable, no acute distress, alert and awake Nutritional Appearance: overweight Orientation/consciousness: patient oriented x3 Resp: Effort & Inspection: normal respiratory effort, able to speak in complete sentences, no respiratory distress and no use of accessory muscles Cardio: Rate: regular rate GI: Inspection: No distended Palpation (GI): Soft to palpation and nontender Neuro: Other: grossly nonfocal General: patient oriented x3 and moves all extremities Extrem: General: Yes no pedal edema DS: Data Data Completed and Pending Completed studies during hospitalization [Text1]: Procedures Assistance with Respiratory Ventilation, Less than 24 Consecutive Hours, Continuous Positive Airway Pressure (11/11/21) Labs on day of discharge: Laboratory Results - last 24 hr 10/25/23 10/25/23 10/25/23 15:58 20:15 22:08 WBC RBC Hgb Hct MCV MCH MCHC RDW Plt Count MPV Immature Gran % (Auto) Neut % (Auto) Lymph % (Auto) [place] % (Auto) Eos % (Auto) Baso % (Auto) Lymph # (Auto) [place] # (Auto) Eos # (Auto) Baso # (Auto) Abs Immat Gran (auto) Absolute Neuts (auto) Absolute Nucleated RBC Nucleated RBC % (auto) Sodium Potassium Chloride Carbon Dioxide Anion Gap BUN Creatinine Estim Creat Clear Calc Estimated GFR POC Glucose 258 H 372 H* 337 H Fasting Glucose Calcium Total Bilirubin AST ALT Alkaline Phosphatase Total Protein Albumin 08/10/26/23 10/26/23 05:08 07:03 11:02 WBC 12.2 H RBC 3.84 L Hgb 11.4 L Hct 35.7 L MCV 93.0 MCH 29.7 MCHC 31.9 RDW 13.6 Plt Count 268 MPV 9.8 Immature Gran % (Auto) 1.9 H Neut % (Auto) 82.9 H Lymph % (Auto) 11.3 L [place] % (Auto) 3.7 Eos % (Auto) 0.0 Baso % (Auto) 0.2 Lymph # (Auto) 1.4 [place] # (Auto) 0.5 Eos # (Auto) 0.0 Baso # (Auto) 0.0 Abs Immat Gran (auto) 0.23 H Absolute Neuts (auto) 10.1 H Absolute Nucleated RBC 0.000 Nucleated RBC % (auto) 0.0 Sodium 137 Potassium 4.9 D Chloride 104 Carbon Dioxide 25 Anion Gap 13 BUN 36 H Creatinine 0.89 Estim Creat Clear Calc 66.9 Estimated GFR > 60 POC Glucose 266 H 349 H Fasting Glucose 305 H Calcium 9.5 Total Bilirubin 0.2 AST 96 H ALT 128 H Alkaline Phosphatase 69 Total Protein 6.4 L Albumin 3.4 L Preliminary micro results at discharge 10/23/23 01:30 Blood Culture - Preliminary Blood - Venous No growth after 48 hours. 10/23/23 01:30 Blood Culture - Preliminary Blood - Venous No growth after 48 hours. Discharge Plan Discharge Anticipated Discharge Date/Time: 10/26/23 11:55 Patient Disposition: Home Health Service Discharge Diagnosis: Sepsis due to pneumonia Acute metabolic encephalopathy-resolved Acute on chronic respiratory failure-resolved Referrals: Rito Olivas MD [Primary Care Provider] - 1 Week Discharge Medications: New azithromycin 250 mg tablet 250 mg PO DAILY 3 Days Qty: 3 0RF cefuroxime axetil 500 mg tablet 500 mg PO Q12H 4 Days Qty: 8 0RF prednisone 20 mg tablet 40 mg PO DAILY 5 Days Qty: 10 0RF Continued lidocaine [Lidoderm] 5 % adhesive patch,medicated 1 patch topical DAILY 30 Days Qty: 30 4RF Rx Instructions: leave on most painful area for up to 12 hrs albuterol sulfate 90 mcg/actuation HFA aerosol inhaler 2 puff PO QID Qty: 8.5 11RF albuterol sulfate 2.5 mg /3 mL (0.083 %) solution for nebulization 2.5 mg inhalation Q4-6H PRN (Reason: for wheezing) Qty: 180 0RF gabapentin 300 mg capsule 300 mg PO BEDTIME 30 Days Qty: 30 11RF ipratropium bromide 21 mcg (0.03 %) spray,non-aerosol 2 spray intranasal BID buspirone 15 mg tablet 1 tab PO BID [place] 75 mg tablet 75 mg PO DAILY acetaminophen [Tylenol Extra Strength] 500 mg tablet 650 mg PO Q6H PRN (Reason: fever or pain) tramadol 50 mg tablet 50 mg PO TID PRN (Reason: Pain (Scale Score 1-3)) Breztri Aerosphere 160-9-4.8 mcg/actuation HFA aerosol inhaler 2 inh inhalation BID furosemide 20 mg Tablet 20 mg PO DAILY azelastine 137 mcg (0.1 %) [place],Non-Aerosol 1 spray INTRANASAL BID Rx Instructions: administer into each nostril vitamin B complex Capsule 1 cap PO DAILY insulin aspart U-100 [Novolog FlexPen U-100 Insulin] 100 unit/mL (3 mL) insulin pen 2 - 8 sliding scale dose subcut QIDACHS duloxetine 60 mg capsule,delayed release(DR/EC) 60 mg PO DAILY lisinopril 10 mg tablet 10 mg PO DAILY insulin glargine 100 unit/mL (3 mL) insulin pen 54 unit subcut BEDTIME donepezil 5 mg tablet 5 mg PO BEDTIME Spiriva Respimat 2.5 mcg/actuation mist 2 puff inhalation DAILY 30 Days Qty: 4 11RF montelukast 10 mg tablet 10 mg PO DAILY lorazepam 1 mg tablet 1 mg PO TID PRN (Reason: Anxiety) metformin 1,000 mg tablet 1,000 mg PO BID Held Mounjaro 2.5 mg/0.5 mL pen injector 2.5 mg subcut QWEEK 84 Days Qty: 6 1RF Hold Instructions: hold until follow up with PCP atorvastatin 40 mg tablet 40 mg PO DAILY Hold Instructions: hold until repeat LFTs in one week Discontinued cefuroxime axetil 500 mg tablet 500 mg PO Q12H Qty: 14 0RF doxycycline hyclate 100 mg tablet 100 mg PO BID Qty: 14 0RF No Action (DME) diabetic shoes See Rx Instructions .ROUTE .MEDSUPPLY Qty: 1 0RF Rx Instructions: extra depth orthopedic shoes ( 1 pair ) with customize heat molded multi density inner soles ( 3 pair) Dispense 1 Sig: As directed DX: And IDDM /polyneuropathy ( E11 0.42 ); hammertoe foot deformity ( M 20.41, and 20.42 ) pre ulcerative skin lesion ( L 85.1 ) Diagnosis ( E11 0.42 ) type 2 diabetes with polyneuropathy (DME) 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 Misc See Rx Instructions .Route Qty: 1 0RF Rx Instructions: As directed (DME) Dexcom G7 Sensor Device See Rx Instructions .Route Qty: 3 4RF Rx Instructions: As directed change every 10 days (DME) Dexcom G6 Transmitter Device See Rx Instructions .ROUTE .COMPLEX Qty: 1 0RF Dose Instruction: USE DIRECTED Rx Instructions: USE DIRECTED (DME) pen needle, diabetic [BD Ultra-Fine Short Pen Needle] 31 gauge x 5/16 needle See Rx Instructions .ROUTE .COMPLEX Qty: 100 4RF Dose Instruction: DIRECTED TO INJECT FOUR TIMES DAILY Rx Instructions: DIRECTED TO INJECT FOUR TIMES DAILY (DME) FreeStyle Lite Strips Strip See Rx Instructions .Route Qty: 50 4RF Rx Instructions: As directed (DME) blood-glucose meter [FreeStyle Lite Meter] Kit See Rx Instructions .Route Qty: 1 0RF Rx Instructions: As directed (DME) Ketostix Strip See Rx Instructions .Route Qty: 50 2RF Rx Instructions: As directed (DME) walker Misc See Rx Instructions .ROUTE .MEDSUPPLY Qty: 1 0RF Rx Instructions: As directed (DME) Oxygen Home Use Kit See Rx Instructions .Route Rx Instructions: As directed (DME) lancets [FreeStyle Lancets] 28 gauge misc See Rx Instructions .Route Rx Instructions: As directed (DME) nebulizers Misc See Rx Instructions .Route Rx Instructions: As directed Discharge Orders: Discharge Order (Routine); Ordered 10/26/23 Ordered By: Namrata Beltran Activity on Discharge: As tolerated Stand Alone Forms: Patient Portal Discharge page Print Language: B[place] Other Ambulatory Orders: Liver Panel (Routine) Timeframe: 1 Week Facility: [facility] - Location: Laboratory Ordered By: Namrata Beltran Care Plan Goals: See below Health Concerns: acute respiratory failure, hypoglycemia, hypothermia due to sepsis from pneumonia Plan of Treatment: Complete course of antibiotics as prescribed Call to schedule follow-up appointment with PCP in the next 1 week Do not use insulin pump or Mounjaro until follow-up with PCP. continue all other diabetic medications monitor blood sugar closely Assessment: See discharge summary
--- NOTE | 2023-10-26 13:10 | W.MHC.F2F ---
Service Date Service Date: 10/26/23 Encounter Date of encounter: 10/26/23 Reasons for Services Signs and symptoms assessed: needs custodial for blood sugar monitoring and PT for therapeutic exercises Reason for custodial: monitoring of unstable blood sugar Reason for physical therapy: home safety and mobility and therapeutic exercises Overseeing Care: Rito Olivas Homebound: Leaving the home is medically contraindicated at this time without the asist of a device and/or another person due th the listed conditions above and below. Reason homebound: unsteady gait / fall risk Certification: Based on the above findings, I certify that this patient is confined to the home and needs intermittent custodial care, physical therapy and/or speech therapy, or continues to need occupational therapy. The patient is under my care, and I have initiated the establishment of the plan of care. The patient will be followed by a physician who will periodically review the plan of care. Time Spent With Patient Time: Total time managing care of this patient today ____ minutes.
--- NOTE | 2023-10-26 13:44 | MHC.CM.PN ---
Pt is medically cleared for discharge home with resumption of [facility] services and new [facility] services. Pt will transport home via [facility] at 4pm today, pt and her daughter/HCP Irbian are in agreement with discharge plan.
== END 2023-10-26 17:44 | disposition home health service (06) | DRG 871 ==
LOC: HO.ED 02:50 → HO.EDOVER 03:30 → HO.S3 18:15
PROVIDERS: Hospitalist; Nurse Practitioner Acute Care; Admitting Provider Student in an Organized Health Care Education/Training Program; Emergency Provider Internal Medicine; PCP Internal Medicine; Visit Provider Physician Assistant Medical
DX: A41.9 Sepsis, unspecified organism (principal); G93.41 Metabolic encephalopathy; J96.21 Acute and chronic respiratory failure with hypoxia; J96.22 Acute and chronic respiratory failure with hypercapnia; J18.9 Pneumonia, unspecified organism; J45.901 Unspecified asthma with (acute) exacerbation; J44.1 Chronic obstructive pulmonary disease with (acute) exacerbation; E66.2 Morbid (severe) obesity with alveolar hypoventilation; E87.21 Acute metabolic acidosis; Z99.81 Dependence on supplemental oxygen; I27.20 Pulmonary hypertension, unspecified; E11.649 Type 2 diabetes mellitus with hypoglycemia without coma; E78.2 Mixed hyperlipidemia; Z96.41 Presence of insulin pump (external) (internal); Z66 Do not resuscitate; F39 Unspecified mood [affective] disorder; R68.0 Hypothermia, not associated with low environmental temperature; M79.7 Fibromyalgia; Z71.3 Dietary counseling and surveillance; Z87.891 Personal history of nicotine dependence; Z20.822 Contact with and (suspected) exposure to COVID-19; Z86.711 Personal history of pulmonary embolism; Z86.718 Personal history of other venous thrombosis and embolism; Z68.33 Body mass index [BMI] 33.0-33.9, adult; Z79.4 Long term (current) use of insulin; Z79.84 Long term (current) use of oral hypoglycemic drugs; Z79.899 Other long term (current) drug therapy
CPT/HCPCS: 0241U; 36415; 70450; 71045; 71250; 80048; 80053; 81001; 82803; 82947; 83605; 83735; 84484; 85025; 85610; 87040; 93005; 94640; 94660; 97116; 97162; 97530; 99285; C1758; J0456; J0696; J1650; J2919

== ENCOUNTER → 2023-10-23 03:18 | Outpatient (BNV) | payer OTHER, SELFPAY | PROVIDERS: Admitting Provider Student in an Organized Health Care Education/Training Program; Emergency Provider Internal Medicine; PCP Internal Medicine; Visit Provider Student in an Organized Health Care Education/Training Program | DX: A41.9 Sepsis, unspecified organism (principal); J18.9 Pneumonia, unspecified organism | CPT/HCPCS: 99223; 99232; 99239; 99499; G0180 ==

== ENCOUNTER 2023-11-23 09:54 | Outpatient (AMB) | payer OTHER, SELFPAY ==
--- NOTE | 2023-11-23 10:03 | MHC.OFFVIS ---
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 She has history of asthma COPD overlap syndrome, obstructive sleep apnea, hypertension and hyperlipidemia. She was seen a year ago when she presented after getting a CT scan of her chest for lung assessment which showed concern for cardiomegaly. She has advanced COPD and is supposed to be on oxygen at nighttime and with ambulation. She was complaining of some tachycardia at that time. She also complained that her saturations at times were in 80s and she had to use supplemental oxygen to bring it up. We performed an echocardiogram in May 2021 which showed vigorous LV function with EF of 60-70% without any regional wall motion abnormalities. Normal right ventricular size and function. Right ventricular systolic pressure could not be calculated. In June 2022 she got admitted to [facility] with shortness of breath and lower extremity swelling. She was diagnosed with DVT with occlusive thrombus more than 5 cm in length within the paired left peroneal veins. ECHO and CT scan reports were reviewed. Again her RV systolic pressure could not be determined. She had normal biventricular function. She had CT scan of the chest which did not show any central PE but could not rule out subsegmental PE. She was treated as if she had pulmonary emboli and has been on Xarelto since then. She was advised that she should continue it for 3 months. She is returning for follow-up after the hospital admission. She has been taking Xarelto regularly and has no bleeding concerns. She is doing better and is denying any significant chest pain or shortness of breath. She does have palpitations at nighttime which are quite consistent. No palpitations during the daytime. 09/01/2022 the patient is here for a pulmonary follow-up visit. Overall the patient has been doing little better. She is getting stronger and respiratory status is overall better. Yesterday she did get cortisone shot to her back and hands and pain discomfort. She is wondering about a portable oxygen concentrator. We will have to do a 6 minute walk test to see if she qualifies for the conserving device. She cannot do it right now. Wants to hold off till next time. In the meantime the patient did get her noninvasive ventilator for her respiratory failure. Unfortunately it has been hard for her to tolerate it. She did bring it in. I did titrate the pressure is down to see if she can tolerate it easier decreasing both the minimum pressure support and a minimum expiratory pressure. She seemed to tolerate it better. She also has noticed that when she lays flat her oxygen pulse ox decreases at home. Therefore she can increase her oxygen to 3 L while using the noninvasive ventilator will plan to perform an overnight oximetry while on the settings to make sure that she is getting adequate support and further adjustments. I did reach out to [facility] to see if they can further adjust her machine when she is situated. She continue with the current therapy. Also continues with diuresis tolerated. She will continue with the current respiratory diabetes. We will follow up between 4-6 weeks. 10/20/2022 the patient is here for pulmonary follow-up visit. Overall the patient is doing better from a respiratory status. She continues use the oxygen with good effect. She did get the noninvasive ventilator. She has had some difficulty tolerating the therapy. She is trying to use it during the daytime and also at nighttime. I did emphasize to her the importance of it specially since her CO2 is already elevated this will help improve her gas exchange and decreased hospitalizations. The patient is aware she is going to try to use it more often. She continues use her respiratory therapy with good effect. She is also using the oxygen with good effect. In the recent imaging studies of blood work to review. Her major issue is significant neuropathy and muscle weakness. I do believe that she will benefit from pulmonary rehabilitation specially if she continues to lose muscle mass she is going to be at risk for worsening respiratory failure. Therefore I am going to have her undergo PFTs and start pulmonary rehab. In addition to that she will have a neurology evaluation. 03/14/2023 the patient is here for a pulmonary follow-up visit. Overall the patient has been doing overall little better. She does continue to use the oxygen with good effect. She has a hard time with the oxygen tanks. We did try to do a walking oximetry to see if she would qualify for portable oxygen concentrator but she could not tolerate it due to significant heart rate elevations. Therefore will continue with current oxygen supplementation. In addition to that the patient was not able to use the noninvasive ventilator and she returned it. Therefore she continues to sleep with the oxygen when this is good. At least her last blood gas was some reassuring. The patient has been having hard time tolerating the Trelegy inhaler. She still has some Symbicort although she does not find that very helpful. Therefore, will go ahead and switch over to breztri. in addition to that, the patient been complaining of thrush. I do not see any on examination. I will send some nystatin mouthwash that she can use to try to prevent further thrush. We can also consider an inhaler without a cortical steroid. She is also developing some chest congestion. Therefore will treat her for that. She is status post COVID likely I postviral lower respiratory infection is starting. 04/27/2023 the patient is here for a sick visit. She has been having worsening respiratory symptoms cough chest tightness and wheezing for about 7 days. She went to an urgent Care was given doxycycline. The patient is not feeling better. Having significant coughing bouts. Moderate severity. Denies any fevers or chills. Also on arrival today her oxygen was on the lower side 91%. It did improve. During the last visit the patient could not perform walking oximetry. she will return in 3 weeks will try to do a 6 minute walk test at that time. In the meantime will go ahead and treat her with a prednisone taper. The patient will also start a 2nd antibiotic. If she has no better she will get an x-ray. 07/06/2023 the patient is here for a pulmonary follow-up visit. Overall she has feeling a lot better. She is responding well to the oxygen supplementation. She does have a portable oxygen concentrator that she uses during the daytime with activity and at rest. In addition to that she does use her oxygen at nighttime via the concentrator. The patient is planning a trip [place]. I did recommend she can call her [employer] in order to get a concentrator available for her oxygen needs. Patient continues use her respiratory therapy with good effect. the patient unfortunately was not able tolerate the noninvasive ventilator. Will go ahead and request a repeat blood gas and chest x-ray at this time. She has not been using her Breztri inhaler because she does not like the after taste. She has been using her albuterol couple times a day. I did provide her with a spacer that she ca n use with her Breztri in order to minimize the adverse taste. I did recommend the patient start taking the inhaler twice a day. She does cough a lot at nighttime. I do believe that the use of the inhaler prior to going to bed will be helpful. In addition to that will prescribe her benzonates. 11/23/2023 The patient is here for a pulmonary follow up visit. Back in October she was admited to the hospital with oneumonia. She had a CT chest whic I personally reviewd with bilateral pneumonia, suspicious for an atypical pneumonia. Then, she returned with hypoglycemia. Now she is better. Still with dyspnea on exertion and cough, mild in severity. At baseline. She has been using the oxygen with good response. Though, having daytime drowsiness and an elevated EPWORTH /24. She did have have a CPAP before. She then was placed on an NIV, but she could not tolerate it. I will request a repeat in lab PSG at this time. She continues to take her respiratory medicines with good effect. [facility] Medical History (Updated 11/23/23 @ 10:12 by Abhi Benson MD) CASSANDRA (obstructive sleep apnea) Hypoglycemia associated with type 2 diabetes mellitus COPD exacerbation C. difficile enteritis COVID-19 DVT (deep venous thrombosis) Pulmonary hypertension Pulmonary emboli Acute on chronic respiratory failure with hypoxia and hypercapnia Chronic respiratory failure [place] (hard of hearing) PONV (postoperative nausea and vomiting) Post herpetic neuralgia Pneumonia Back pain Morbid obesity Chest crackles Cardiomegaly Asthma-COPD overlap syndrome Acute respiratory failure Hyperlipidemia Hypertension Diabetes Arnold-Chiari malformation Arthritis Fibromyalgia Cough CASSANDRA treated with BiPAP Asthma Sinusitis Surgical History Hx of eye surgery History of esophagogastroduodenoscopy (EGD) H/O colonoscopy Hx of laparoscopic gastric banding H/O bilateral breast reduction surgery H/O brain surgery Family History Mother HTN (hypertension) Breast cancer Father Primary cancer of bone marrow Social History Household Members: Family Household Members Other:: granddaughter Housing: Apartment Are you a primary acute care occupational therapist to a significant other at home: No Do you presently have visiting nurse or other home services: Yes Unable to assess alcohol history related to: Unable to respond Alcohol intake: never Patient Tobacco Use Status: Former Tobacco user Tobacco use type: Cigarette Years Smoked: 15 +/- e-Cigarette/Vaping Use: Never Used Second Hand Smoke Exposure: No Advance Directives Date on File: 11/11/21 service: No Review of Systems Const Reports daytime sleepiness, Reports snoring, Reports stops breathing during sleep and Reports weight loss Eyes Reports loss of vision ENT Reports dizziness, Reports hearing loss, Reports nasal congestion and Reports nasal discharge Card Reports leg edema, Reports lightheadedness, Reports palpitations, Reports dyspnea on exertion and Reports orthopnea Resp Reports cough, Denies hemoptysis, Reports dyspnea on exertion, Reports snoring and Reports wheezing GI Reports heartburn and Reports vomiting Musc Reports abnormal gait, Reports atrophy, Reports arthralgias, Reports muscle weakness, Reports numbness and Denies other (Frequent falls) Skin/Breast Reports nail changes and Reports rash Neuro Reports Abnormal speech present, Reports abnormal gait, Reports dizziness, Reports loss of vision and Reports numbness Endo Reports palpitations Aller/Immun Reports wheezing Physical Exam Vital Signs: Last Vital Signs Pulse 92 11/23/23 10:05 BP 138/70 11/23/23 10:05 Pulse Ox 98 11/23/23 10:05 Oxygen Delivery Method Room Air 11/23/23 10:05 BMI result Body Mass Index 36.1 Const General: comfortable and alert Limitations: wheelchair Neck Neck: Yes normal visual inspection, Yes full ROM and Yes no lymphadenopathy Chest Chest palpation & inspection: normal inspection of the chest Resp Effort & Inspection: normal respiratory effort Auscultation: diminished lung sounds Cardio Rate: regular rate Rhythm: regular rhythm Heart sounds: S1 normal heart sound present and S2 normal heart sound present GI Palpation (GI): Soft to palpation Auscultation: normal bowel sounds Skin General skin exam: rashes and/or lesions noted Neuro Speech: Abnormal speech present Extrem General: Yes no clubbing, cyanosis or edema Assessment & Plan Assessment & Plan (1) Asthma-COPD overlap syndrome: Code(s): J44.9 - Chronic obstructive pulmonary disease, unspecified Category: Medical (2) Pulmonary emboli: Code(s): I26.99 - Other pulmonary embolism without acute cor pulmonale Category: Medical Qualifiers: Pulmonary embolism type: multiple subsegmental (without acute cor pulmonale) Qualified Code(s): I26.94 - Multiple subsegmental pulmonary emboli without acute cor pulmonale (3) Pulmonary hypertension: Code(s): I27.20 - Pulmonary hypertension, unspecified Category: Medical (4) DVT (deep venous thrombosis): Code(s): I82.409 - Acute embolism and thrombosis of unspecified deep veins of unspecified lower extremity Category: Medical Qualifiers: Affected thrombotic vein of extremity: unspecified vein of extremity Chronicity: unspecified DVT location: lower extremity Laterality: unspecified laterality Qualified Code(s): I82.409 - Acute embolism and thrombosis of unspecified deep veins of unspecified lower extremity (5) Chronic respiratory failure: Code(s): J96.10 - Chronic respiratory failure, unspecified whether with hypoxia or hypercapnia Category: Medical Qualifiers: Respiratory failure complication: hypoxia and hypercapnia Qualified Code(s): J96.11 - Chronic respiratory failure with hypoxia; J96.12 - Chronic respiratory failure with hypercapnia (6) Chronic restrictive lung disease: Code(s): J98.4 - Other disorders of lung Category: Medical (7) Acute on chronic respiratory failure with hypoxia and hypercapnia: Code(s): J96.21 - Acute and chronic respiratory failure with hypoxia; J96.22 - Acute and chronic respiratory failure with hypercapnia Category: Medical (8) CASSANDRA (obstructive sleep apnea): Code(s): G47.33 - Obstructive sleep apnea (adult) (pediatric) Category: Medical Plan continue Oxygen 2-L/pulse with activity. POC with activity for better portability and ease. continue Breztri will try the spacer to minimize after taste nebulizer 1-2 day MISBAH as needed Fluticasone nasal spray stopped Non invasive ventilator, Astral in lab PSG to reassess for PAP therapy Continue respiratory therapy F/U 3-4 months Orders: Orders RT PSG in-lab sleep study Today G47.33 - Obstructive sleep apnea (adult) (pediatric), I26.94 - Multiple subsegmental pulmonary emboli without acute cor pulmonale, J96.21 - Acute and chronic respiratory failure with hypoxia, J96.22 - Acute and chronic respiratory failure with hypercapnia Pneumococcal 20 Immunization Today Z23 - Encounter for immunization Medications: Discontinued insulin aspart U-100 (Novolog PenFill U-100 Insulin aspart) Discontinued Reason: No Longer Medically Relevant Inject 2-8 units subQ via sliding scale subcutaneously 3 times a day; 30 mL 5RF Coding Level of Care Code Est Pt Level 4 (07387) Complex EM visit Add On G2211 Diagnoses Asthma-COPD overlap syndrome J44.9 Multiple subsegmental pulmonary emboli without acute cor pulmonale I26.94 Pulmonary embolism type: multiple subsegmental (without acute cor pulmonale) Pulmonary hypertension I27.20 Deep vein thrombosis (DVT) of lower extremity, unspecified chronicity, unspecified laterality, unspecified vein I82.409 Affected thrombotic vein of extremity: unspecified vein of extremity Chronicity: unspecified DVT location: lower extremity Laterality: unspecified laterality Chronic respiratory failure with hypoxia and hypercapnia J96.11; J96.12 Respiratory failure complication: hypoxia and hypercapnia Chronic restrictive lung disease J98.4 Acute on chronic respiratory failure with hypoxia and hypercapnia J96.21; J96.22 CASSANDRA (obstructive sleep apnea) G47.33 Time Spent (min) 18
[2023-11-23 10:05] VITALS: BP 138/70; PULSE 92; O2SAT 98; BMI 36.1
== END 2023-11-23 10:30 | disposition home or self-care (01) ==
PROVIDERS: PCP Internal Medicine; Visit Provider Hospitalist
DX: J44.9 Chronic obstructive pulmonary disease, unspecified (principal); I26.94 Multiple subsegmental thrombotic pulmonary emboli without acute cor pulmonale; I27.20 Pulmonary hypertension, unspecified; I82.409 Acute embolism and thrombosis of unspecified deep veins of unspecified lower extremity; J96.11 Chronic respiratory failure with hypoxia; J96.12 Chronic respiratory failure with hypercapnia; J98.4 Other disorders of lung; J96.21 Acute and chronic respiratory failure with hypoxia; J96.22 Acute and chronic respiratory failure with hypercapnia; G47.33 Obstructive sleep apnea (adult) (pediatric); Z23 Encounter for immunization
CPT/HCPCS: 99214; G2211

== ENCOUNTER → 2023-11-23 09:54 | Outpatient (BNVA) | payer OTHER, SELFPAY | PROVIDERS: PCP Internal Medicine; Visit Provider Hospitalist | DX: J44.9 Chronic obstructive pulmonary disease, unspecified (principal); J96.11 Chronic respiratory failure with hypoxia; J96.12 Chronic respiratory failure with hypercapnia; J96.21 Acute and chronic respiratory failure with hypoxia; J96.22 Acute and chronic respiratory failure with hypercapnia; J98.4 Other disorders of lung; I26.94 Multiple subsegmental thrombotic pulmonary emboli without acute cor pulmonale; I27.20 Pulmonary hypertension, unspecified; I82.402 Acute embolism and thrombosis of unspecified deep veins of left lower extremity; G47.33 Obstructive sleep apnea (adult) (pediatric); Z99.81 Dependence on supplemental oxygen; Z23 Encounter for immunization | CPT/HCPCS: 90471; 90677; 99212 ==

== ENCOUNTER 2023-12-01 12:50 | Outpatient (REF) | payer OTHER, SELFPAY ==
[2023-12-01 13:38] LABS: Alanine Aminotransferase 23 U/L (0-31); Albumin Level 3.6 g/dL (3.5-5.0); Alkaline Phosphatase 104 U/L (39-117); Aspartate Amino Transferase 24 U/L (5-31); Bilirubin Direct 0.1 mg/dL (0.0-0.5); Bilirubin Total 0.3 mg/dL (0.0-1.0); Total Protein 6.7 g/dL (6.5-8.0)
== END 2023-12-01 12:51 | disposition home or self-care (01) ==
LOC: HO.LAB 12:50
PROVIDERS: PCP Internal Medicine; Visit Provider Physician Assistant Medical
DX: R79.89 Other specified abnormal findings of blood chemistry (principal)
CPT/HCPCS: 36415; 80076

== ENCOUNTER 2023-12-04 12:26 | Outpatient (AMB) | payer OTHER, SELFPAY ==
[2023-12-04 12:27] VITALS: BP 128/80; PULSE 72; TEMP 36.6; O2SAT 94
--- NOTE | 2023-12-04 12:27 | MHC.OFFWIV ---
Intake Vital Signs 12/04/23 12:27 Height 5 ft BP 128/80 Blood Pressure Location Rt brachial Position Sitting Pulse 72 Pulse Source Pulse Oximeter Temp 97.9 F Temp Source Oral Pulse Oximetry (%) 94 Intake Visit Reasons: EP-rt hand lump discharging clear fluids Intake Note: pt is here for right hand lump, discharging clear fluids Patient Tobacco Use Status: Former Tobacco user Allergies aspirin [ASPIRIN] Allergy (Intermediate, Verified 12/04/23 12:28) GI UPSET, stomach pain latex [LATEX] Allergy (Intermediate, Verified 12/04/23 12:28) HIVES Do you need a note to return to daycare/school/sports/work: No HPI HPI Comments History of Present Illness Details Patient is a 73-year-old female complaining of a blister on her ring finger of her right hand for 2 days. She states it was a giant blister that popped read on her knuckle and now it is painful and is weeping yellowish clear fluid. She states she is diabetic and tries to keep her blood sugars in range. She states she can move the finger but it is getting painful. She also states if she gets an antibiotic she will need Diflucan because she almost always gets a yeast infection. [facility] Medical History (Updated 12/04/23 @ 12:50 by Camila Larios PA-C) CASSANDRA (obstructive sleep apnea) Hypoglycemia associated with type 2 diabetes mellitus COPD exacerbation C. difficile enteritis COVID-19 DVT (deep venous thrombosis) Pulmonary hypertension Pulmonary emboli Acute on chronic respiratory failure with hypoxia and hypercapnia Chronic respiratory failure [place] (hard of hearing) PONV (postoperative nausea and vomiting) Post herpetic neuralgia Pneumonia Back pain Morbid obesity Chest crackles Cardiomegaly Asthma-COPD overlap syndrome Acute respiratory failure Hyperlipidemia Hypertension Diabetes Arnold-Chiari malformation Arthritis Fibromyalgia Cough CASSANDRA treated with BiPAP Asthma Sinusitis Surgical History Hx of eye surgery History of esophagogastroduodenoscopy (EGD) H/O colonoscopy Hx of laparoscopic gastric banding H/O bilateral breast reduction surgery H/O brain surgery Family History Mother HTN (hypertension) Breast cancer Father Primary cancer of bone marrow Social History Household Members: Family Household Members Other:: granddaughter Housing: Apartment Are you a primary foster care case manager to a significant other at home: No Do you presently have visiting nurse or other home services: Yes Unable to assess alcohol history related to: Unable to respond Alcohol intake: never Patient Tobacco Use Status: Former Tobacco user Tobacco use type: Cigarette Years Smoked: 15 +/- e-Cigarette/Vaping Use: Never Used Second Hand Smoke Exposure: No Advance Directives Date on File: 11/11/21 service: No Review of Systems Const All systems reviewed & are unremarkable except as noted in HPI and below Physical Exam Vital Signs: Last Vital Signs Temp 97.9 F 12/04/23 12:27 Pulse 72 12/04/23 12:27 BP 128/80 12/04/23 12:27 Pulse Ox 94 12/04/23 12:27 Const General: cooperative, healthy appearing, comfortable and no acute distress Orientation/consciousness: patient oriented x3 Limitations: no limitations HEENT Head: Yes normal to inspection Eyes General: appearance normal, both eyes and all related structures Resp Effort & Inspection: normal respiratory effort and able to speak in complete sentences Neuro General: patient oriented x3 Extrem Hand/finger images: 1. 1cm round area of slight erythema with purulent exudate and crusting. Full ROM, NVI Assessment & Plan Assessment & Plan (1) Acute bullous dermatitis: Code(s): L13.9 - Bullous disorder, unspecified Plan: Recommended she keep her blood sugars in range, sent doxycycline to pharmacy, gave warnings on how to use this medication, also sent Diflucan. Plan see above Medications: New doxycycline hyclate 100 mg PO BID 10 tabs 0RF fluconazole may repeat second dose 72 hrs after first dose if symptoms persist 150 mg PO Q3D 2 tabs 0RF Coding Level of Care Code New Pt Level 3 (82234) Diagnoses Acute bullous dermatitis L13.9
== END 2023-12-04 12:52 | disposition home or self-care (01) ==
PROVIDERS: PCP Internal Medicine; Visit Provider Physician Assistant
DX: L13.9 Bullous disorder, unspecified (principal)

== ENCOUNTER → 2023-12-04 12:26 | Outpatient (BNVA) | payer OTHER, SELFPAY | PROVIDERS: PCP Internal Medicine | DX: L13.9 Bullous disorder, unspecified (principal) | CPT/HCPCS: 99202 ==

== ENCOUNTER 2023-12-13 11:32 | Outpatient (AMB) | payer OTHER, SELFPAY ==
--- NOTE | 2023-12-13 11:34 | A.OFFVIS_ITS ---
Vital Signs 12/13/23 11:38 Height 5 ft Weight 205 lb 0.478 oz BMI 40.0 BP 116/76 Blood Pressure Location Rt brachial Position Sitting Pulse 80 Pulse Source Pulse Oximeter Intake Visit Reasons: T2DM/CONFIRMED Intake Note: Patient presents today to re-establish treatment for Type 2 Diabetes Mellitus: Last Diabetic eye exam was on: a year ago Last Podiatry exam was on: Does not see a Screener Operator Most recent HbA1c: 8.0%, 12/13/2023 Random Glucose- 201mg/dL, Today Truck Driver Required: No Accompanied by: TEAM FOREMAN Allergies aspirin [ASPIRIN] Allergy (Intermediate, Verified 12/13/23 11:35) GI UPSET, stomach pain latex [LATEX] Allergy (Intermediate, Verified 12/13/23 11:35) HIVES HPI Comments Details: 72 Y1 F who is seen in f/u for type 2 diabetes. She was last seen by Dr. Arambula 07/2023. She was recently changed to an islet insulin pump. Initially diagnosed with T2DM in >10 yrs . Saw endo before Dr. Lyons at [facility] Was initially started on treatment with metformin.Stopped because couldn't swallow Current regime: Recently started on an islet bionic pump Mounjaro 2.5 mg Qwkly back up insulin plan: Lantus 8 units Novolog 8-18 scale starting with 150-200 2 units and increase 2 units for 50 mg/DL Dexcom average glucose: [162.5 ] 14 day continuous glucose monitor report reviewed Glucose Managment indicator 7.2 % Sensory use 98.7% of the time No meal announce meds over the last 2 weeks Total daily basal 32.4 total daily dose of insulin 60.7 I Time in ranges: 5.5 % very high (above 250) 25.6 % high ?(181-250) 68.7 % in range ?(70-180] 0.2 % low (69-55) 0 % ?very low (below 54) Interpretation [readings overall in good range given her age of 73. She has not been announcing any meals. ] Reports had 1 significant low to 40 when she was 1st started on the islet and went to the ER. Since then numbers have been in good range Treats lows with eats sugar . Checks sugar after to ensure it is rising. Treats according to rule of 15's. Has a glucagon rescue kit at home . Family history of T2DM in maternal grandmother, cousins , aunt, sister . Has eyes checked yearly, last eye exam 07/27 Has retinopathy. Has neuropathy, sees podiatry. Denies nephropathy, on OSITO/ARB. . Has HLD, on statin. Last LDL 77 2022 Denies CAD. Not Had diabetes education. [facility] Medical History (Updated 12/04/23 @ 12:50 by Camila Larios PA-C) CASSANDRA (obstructive sleep apnea) Hypoglycemia associated with type 2 diabetes mellitus COPD exacerbation C. difficile enteritis COVID-19 DVT (deep venous thrombosis) Pulmonary hypertension Pulmonary emboli Acute on chronic respiratory failure with hypoxia and hypercapnia Chronic respiratory failure [place] (hard of hearing) PONV (postoperative nausea and vomiting) Post herpetic neuralgia Pneumonia Back pain Morbid obesity Chest crackles Cardiomegaly Asthma-COPD overlap syndrome Acute respiratory failure Hyperlipidemia Hypertension Diabetes Arnold-Chiari malformation Arthritis Fibromyalgia Cough CASSANDRA treated with BiPAP Asthma Sinusitis Surgical History Hx of eye surgery History of esophagogastroduodenoscopy (EGD) H/O colonoscopy Hx of laparoscopic gastric banding H/O bilateral breast reduction surgery H/O brain surgery Family History Mother HTN (hypertension) Breast cancer Father Primary cancer of bone marrow Social History Household Members: Family Household Members Other:: granddaughter Housing: Apartment Are you a primary healthcare business analyst to a significant other at home: No Do you presently have visiting nurse or other home services: Yes Unable to assess alcohol history related to: Unable to respond Alcohol intake: never Patient Tobacco Use Status: Former Tobacco user Tobacco use type: Cigarette Years Smoked: 15 +/- e-Cigarette/Vaping Use: Never Used Second Hand Smoke Exposure: No Advance Directives Date on File: 11/11/21 service: No Physical Exam Vital Signs: Last Vital Signs Pulse 80 12/13/23 11:38 BP 116/76 12/13/23 11:38 BMI result Body Mass Index 40.0 Const Other: Absence of Cushingoid features. Absence of acromegalic features. Neck exam reveals nl size thyroid about 15 gms. No thyroid nodules palpable. Heart S1 S2, Reg R/R. No M/R G. Skin exam reveals absence of vitiligo or acanthosis nigricans. No edema Visual exam of foot performed. No ulcerations or open lesions. No inter digit maceration or fissuring. No onychomycosis, no callouses. absent to monofilament exam. Vibratory sensation is absent with 128 Hz tuning fork. Office Procedures Glucose Monitoring Details Details: see [facility] [id number] - Glucose monitoring, continuous-physician I&R Procedure code (CPT) selection complete Results AMB Hemoglobin A1c AMB Hemoglobin A1c 8.0 % Last Edit by WAQAR Roland on 12/13/23 11:52 Assessment & Plan Assessment & Plan (1) Diabetes: Code(s): E11.9 - Type 2 diabetes mellitus without complications Category: Medical Plan: 73-year-old with neuropathy recently switched over to an islet bionic pump. She initially had a rough start and glucose down to 40 which required an ER trip but since sent time has been doing well as far as her numbers go. Her average gluco se is 162 and this is without any meal announcements. Her TEAM FOREMAN we will come to the training she has scheduled with iLssy HAAS coming up towards the end of the month. She was not able to articulate backup insulin pump plan, DKA protocol and what to do if she no longer has a sensor. New prescriptions were sent to [facility] for all supplies. She needs reinforcement of all aspects of teaching in addition to this her TEAM FOREMAN who is involved with her pump would like to sit in on this visit. I went over DKA protocol and need to fingerstick her glucose every 4 hours in input into device should she have a sensor failure or not have a sensor. I gave her 2 G7 sensors today for emergency backup. She needs reinforcement of all teaching. Orders: Orders AMB Hemoglobin A1c Today E11.9 - Type 2 diabetes mellitus without complications US PRASHANT complete Today I73.9 - Peripheral vascular disease, unspecified AMB Glucose Monitoring Today E11.9 - Type 2 diabetes mellitus without complications Medications: New insulin aspart U-100 (Novolog U-100 Insulin aspart) up to 80 units per day via insulin pump subcutaneously use as directed; 90 days 80 mL 3RF insulin glargine (Lantus Solostar U-100 Insulin) 8 units (0.08 mL) subcut DAILY 30 days PRN 3 mL 5RF pump failure E11.9 - Type 2 diabetes mellitus without c omplications pen needle, diabetic (BD Verenice 2nd Gen Pen Needle) As directed qid prn pump failure 100 ea 6RF tirzepatide (Mounjaro) 5 mg (0.5 mL) subcut QWEEK 28 days 2 mL 6RF E11.9 - Type 2 diabetes mellitus without complications tirzepatide (Mounjaro) 5 mg (0.5 mL) subcut QWEEK 28 days 2 mL 6RF E11.9 - Type 2 diabetes mellitus without complications Refilled acetone (urine) test (Ketostix strips) As directed 50 ea 2RF blood sugar diagnostic (FreeStyle Lite Strips) As directed 50 ea 4RF blood-glucose meter (FreeStyle Lite Meter kit) As directed 1 ea 0RF lancets (FreeStyle Lancets) As directed checks 4 times a day 100 ea 4RF Discontinued insulin glargine Discontinued Reason: Doctor's Order 8 units (0.08 mL) subcut BEDTIME 15 mL 3RF tirzepatide (Mounjaro) Discontinued Reason: Doctor's Order 2.5 mg (0.5 mL) subcut QWEEK 84 days 6 mL 1RF E11.9 - Type 2 diabetes mellitus without complications Coding Level of Care Code Est Pt Level 4 (92104) Diagnoses Diabetes E11.9 CPT Codes Details - CPT: 69264 - Glucose monitoring, continuous-physician I&R ([id number]) Time Spent (min) 30 Comment Time spent reviewing labs/provider notes, face to face, chart doc to
[2023-12-13 11:38] VITALS: BP 116/76; PULSE 80; BMI 40.0
[2023-12-13 11:48] LABS: Glucose, Whole Blood 201 mg/dL (60-115)
== END 2023-12-13 12:10 | disposition home or self-care (01) ==
PROVIDERS: PCP Family Medicine; Visit Provider Nurse Practitioner Adult Health
DX: E11.9 Type 2 diabetes mellitus without complications (principal)
CPT/HCPCS: 95251; 99214

== ENCOUNTER → 2023-12-13 11:32 | Outpatient (BNVA) | payer OTHER, SELFPAY | PROVIDERS: PCP Family Medicine; Visit Provider Nurse Practitioner Adult Health | DX: E11.649 Type 2 diabetes mellitus with hypoglycemia without coma (principal); E11.40 Type 2 diabetes mellitus with diabetic neuropathy, unspecified; E11.319 Type 2 diabetes mellitus with unspecified diabetic retinopathy without macular edema; Z83.3 Family history of diabetes mellitus; Z96.41 Presence of insulin pump (external) (internal); Z79.4 Long term (current) use of insulin | CPT/HCPCS: 82947; 83036; 99212 ==

== ENCOUNTER 2023-12-25 11:30 | Outpatient (AMB) | payer OTHER, SELFPAY ==
--- NOTE | 2023-12-25 11:34 | A.OFFVIS_ITS ---
VS Expanded 12/25/23 11:36 Height 5 ft Weight 195 lb 1.745 oz BMI 38.1 Intake Visit Reasons: T2DM/CONFIRMED Allergies aspirin [ASPIRIN] Allergy (Intermediate, Verified 01/03/24 21:34) GI UPSET, stomach pain latex [LATEX] Allergy (Intermediate, Verified 01/03/24 21:34) HIVES Nutrition Presentation Details: Pt presents for MNT f/u for T2DM Pt reports eating a variety of foods, has an ilet pump , reports omitting boluses Pt is requesting new meal plan ideas - misplaced the ones provided at previous visit BS Monitoring Most Recent Diabetes Results: Creatinine 0.71 mg/dL (0.5-1.4) 01/04/24 Blood Urea Nitrogen 19 mg/dL (9-16) H 01/04/24 Sodium 141 mmol/L (135-145) 01/04/24 Potassium 4.3 mmol/L (3.3-5.1) 01/04/24 Chloride 104 mmol/L (96-108) 01/04/24 Carbon Dioxide 27 mmol/L (22-29) 01/04/24 Calcium 9.7 mg/dL (8.4-10.2) 01/04/24 AST 35 U/L (5-31) H 01/03/24 ALT 21 U/L (0-31) 01/03/24 Total Protein 7.0 g/dL (6.5-8.0) 01/03/24 Albumin 3.7 g/dL (3.5-5.0) 01/03/24 PFSH Medical History (Updated 01/04/24 @ 05:58 by Rafa Matute MD) CASSANDRA (obstructive sleep apnea) Hypoglycemia associated with type 2 diabetes mellitus COPD exacerbation C. difficile enteritis COVID-19 DVT (deep venous thrombosis) Pulmonary hypertension Pulmonary emboli Acute on chronic respiratory failure with hypoxia and hypercapnia Chronic respiratory failure [place] (hard of hearing) PONV (postoperative nausea and vomiting) Post herpetic neuralgia Pneumonia Back pain Morbid obesity Chest crackles Cardiomegaly Asthma-COPD overlap syndrome Acute respiratory failure Hyperlipidemia Hypertension Diabetes Arnold-Chiari malformation Arthritis Fibromyalgia Cough CASSANDRA treated with BiPAP Asthma Sinusitis Surgical History Hx of eye surgery History of esophagogastroduodenoscopy (EGD) H/O colonoscopy Hx of laparoscopic gastric banding H/O bilateral breast reduction surgery H/O brain surgery Family History Mother HTN (hypertension) Breast cancer Father Primary cancer of bone marrow Social History Household Members: Family Household Members Other:: granddaughter Housing: Apartment Are you a primary patient care director to a significant other at home: No Do you presently have visiting nurse or other home services: Yes (DI[employer] KITCH[employer]) Unable to assess alcohol history related to: Unable to respond Alcohol intake: never Patient Tobacco Use Status: Former Tobacco user Tobacco use type: Cigarette Years Smoked: 15 +/- e-Cigarette/Vaping Use: Never Used Second Hand Smoke Exposure: No Advance Directives Date on File: 11/11/21 service: No Assessment & Plan Assessment & Plan (1) Diabetes: Code(s): E11.9 - Type 2 diabetes mellitus without complications Category: Medical Plan: ?Used wt : 90 kg (06/27), 88 kg (12/27) Est kcal as per MSJ: 1600 (40% carb, 30% fat/prot) Est fluid needs: 2500 ml/d (25 ml/kg bw) Rec fiber: increase to 8-10 g per day and gradually increase to 25 g/d as tolerated Rec Na: < 2000 mg /d Educate patient on: (R= Reviewed, V = verbalizes understanding N/R= Needs review N/A= not applicable) * Food sources of carbohydrates and serving adequate serving sizes : R * Difference between complex carbohydrates and simple carbohydrates, role of fiber: R * Differences between fats (MUFA/PUFA/saturated fats, trans fats) and food sources of various fats: R * Lean protein sources of foods: R, V * nutritional supplement: R * Food sources of sodium and salt and healthy modifications for heart health and kidney health: R * How to interpret food labels: R * Healthy Plate method concept: R V * Physical activity: benefits and precaution: N/R * Patient Instructions: Work on balancing meals by following healthy plate method see list of meal options /variety in [email or web address] Coding Level of Care Code Nutr Indiv Subseq (28993) Diagnoses Diabetes E11.9 Time Spent (min) 30
[2023-12-25 11:36] VITALS: BMI 38.1
== END 2023-12-25 12:07 | disposition home or self-care (01) ==
PROVIDERS: PCP Family Medicine; Visit Provider Dietitian, Registered
DX: E11.9 Type 2 diabetes mellitus without complications (principal)

== ENCOUNTER 2023-12-26 15:00 | Outpatient (REF) | payer OTHER, SELFPAY ==
--- NOTE | ~2023-12-26 | US_ITS ---
EXAMINATION: ANKLE BRACHIAL INDICES (ABIs). CLINICAL INFORMATION: Peripheral vascular disease TECHNIQUE: Ankle pulse volume recordings, ankle pressure measurements and ankle brachial indices were obtained of the lower extremity arterial system bilaterally. The study was performed only at rest. COMPARISON: None FINDINGS: BRACHIAL PRESSURES: Right: 122 Left: 147 ANKLE PRESSURES: Right: PT 175, DP 143 Left: PT 150, DP 154 ANKLE-BRACHIAL INDEX: Right: 1.19 Left: 1.05 ANKLE PVR WAVEFORMS: Right: Normal Left: Normal US/US PRASHANT complete IMPRESSION: Normal bilateral ankle-brachial indices. PRASHANT Reference: - >1.4 = calcified vessels - 0.9 - 1.4 = normal - no significant arterial disease - 0.7 - 0.89 = mild peripheral arterial disease - 0.51 - 0.69 = moderate peripheral arterial disease - d 0.50 = severe peripheral arterial disease - < .30 = critical arterial disease Electronically signed by: Catrachita Chow MD 01/04/2024 02:12 PM EDT
== END 2023-12-26 15:01 | disposition home or self-care (01) ==
LOC: HO.US 15:00
PROVIDERS: PCP Internal Medicine; Visit Provider Nurse Practitioner Adult Health
DX: I73.9 Peripheral vascular disease, unspecified (principal)
CPT/HCPCS: 93923

== ENCOUNTER 2024-01-01 14:32 | Outpatient (AMB) | payer OTHER, SELFPAY ==
[2024-01-01 14:38] VITALS: BP 124/64; PULSE 94; BMI 38.7
--- NOTE | 2024-01-01 14:38 | A.OFFVIS_ITS ---
Vital Signs 01/01/24 14:38 Height 5 ft Weight 197 lb 15.602 oz BMI 38.7 BP 124/64 Blood Pressure Location Lt brachial Position Sitting Pulse 94 Pulse Source Monitor Intake Visit Reasons: over due -f/up Cloud Consultant Required: No Accompanied by: Employee Allergies aspirin [ASPIRIN] Allergy (Intermediate, Verified 12/13/23 11:35) GI UPSET, stomach pain latex [LATEX] Allergy (Intermediate, Verified 12/13/23 11:35) HIVES Medication List - Last Reconciled 01/01/24 by Олег Longoria MD acetaminophen (Tylenol Extra Strength) 650 mg PO Q6H PRN acetone (urine) test (Ketostix strips) prn tid glucose over 250, illness, nausea, vomiting albuterol sulfate 90 mcg/actuation 2 puffs PO QID PRN 90 days albuterol sulfate 2.5 mg (3 mL) inhalation Q4-6H PRN aripiprazole 15 mg PO DAILY atorvastatin 40 mg PO DAILY azelastine 1 spray intranasal BID blood sugar diagnostic (FreeStyle Lite Strips) qid prn to confirm sensor readings or for failed sensor blood-glucose meter (FreeStyle Lite Meter kit) As directed blood-glucose meter,continuous (Dexcom G7 Administrative Coordinator) As directed blood-glucose sensor (Dexcom G7 Sensor device) APPLY DIRECTED AND CHANGE EVERY 10 DAYS (BULK) blood-glucose transmitter (Dexcom G6 Transmitter device) USE DIRECTED [id number] 160-9-4.8 mcg/actuation (Breztri Aerosphere) 2 inhalations inhalation BID 90 days buspirone 30 mg PO BID [diabetic shoes extra depth orthopedic shoes ( 1 pair ) with customize heat molded multi density inner soles ( 3 pair) Dispense 1 Sig: As directed DX: And IDDM /polyneuropathy ( E11 0.42 ); hammertoe foot deformity ( M 20.41, and 20.42 ) pre ulcerative skin lesion ( L 85.1 ) Diagnosis ( E11 0.42 ) type 2 diabetes with polyneuropathy] donepezil 5 mg PO BEDTIME duloxetine 60 mg PO DAILY gabapentin 300 mg PO BEDTIME 30 days insulin aspart U-100 (Novolog U-100 Insulin aspart) up to 80 units per day via insulin pump subcutaneously use as directed; 90 days insulin glargine (Lantus Solostar U-100 Insulin) 8 units (0.08 mL) subcut DAILY PRN 30 days lancets (FreeStyle Lancets) As directed checks 4 times a day lidocaine 5% (Lidoderm) 1 patch topical DAILY 30 days lisinopril 10 mg PO DAILY lorazepam 1 mg PO TID PRN metformin 1,000 mg PO BID montelukast 10 mg PO DAILY 90 days nebulizers As directed Oxygen Home Use As directed pen needle, diabetic (BD Verenice 2nd Gen Pen Needle) As directed qid prn pump failure pen needle, diabetic (BD Ultra-Fine Short Pen Needle) DIRECTED TO INJECT FOUR TIMES DAILY tiotropium bromide 2.5 mcg/actuation (Spiriva Respimat) 2 puffs inhalation DAILY 30 days tirzepatide (Mounjaro) 5 mg (0.5 mL) subcut QWEEK 28 days tramadol 50 mg PO TID PRN vitamin B complex 1 cap PO DAILY walker As directed HPI Comments Details: Pleasant 73-year-old female who is here for follow-up. She has history of asthma COPD overlap syndrome, obstructive sleep apnea, hypertension and hyperlipidemia. She was seen a year ago when she presented after getting a CT scan of her chest for lung assessment which showed concern for cardiomegaly. She has advanced COPD and is supposed to be on oxygen at nighttime and with ambulation. She was complaining of some tachycardia at that time. She also complained that her saturations at times were in 80s and she had to use supplemental oxygen to bring it up. We performed an echocardiogram in May 2021 which showed vigorous LV function with EF of 60-70% without any regional wall motion abnormalities. Normal right ventricular size and function. Right ventricular systolic pressure could not be calculated. In June 2022 she got admitted to [facility] with shortness of breath and lower extremity swelling. She was diagnosed with DVT with occlusive thrombus more than 5 cm in length within the paired left peroneal veins. ECHO and CT scan reports were reviewed. Again her RV systolic pressure could not be determined. She had normal biventricular function. She had CT scan of the chest which did not show any central PE but could not rule out subsegmental PE. She was treated as if she had pulmonary emboli and has been on Xarelto since then. She was advised that she should continue it for 3 months. She is returning for follow-up after the hospital admission. She has been taking Xarelto regularly and has no bleeding concerns. She is doing better and is denying any significant chest pain or shortness of breath. She does have palpitations at nighttime which are quite consistent. No palpitations during the daytime. 01/01/2024: She is here for follow-up. She is on supplemental oxygen due to COPD. She also had sleep study and will be starting CPAP. Blood pressure is well controlled. She has some dyspnea with activities but this is stable. No chest discomfort. [facility] Medical History (Updated 12/04/23 @ 12:50 by Camila Larios PA-C) CASSANDRA (obstructive sleep apnea) Hypoglycemia associated with type 2 diabetes mellitus COPD exacerbation C. difficile enteritis COVID-19 DVT (deep venous thrombosis) Pulmonary hypertension Pulmonary emboli Acute on chronic respiratory failure with hypoxia and hypercapnia Chronic respiratory failure [place] (hard of hearing) PONV (postoperative nausea and vomiting) Post herpetic neuralgia Pneumonia Back pain Morbid obesity Chest crackles Cardiomegaly Asthma-COPD overlap syndrome Acute respiratory failure Hyperlipidemia Hypertension Diabetes Arnold-Chiari malformation Arthritis Fibromyalgia Cough CASSANDRA treated with BiPAP Asthma Sinusitis Surgical History Hx of eye surgery History of esophagogastroduodenoscopy (EGD) H/O colonoscopy Hx of laparoscopic gastric banding H/O bilateral breast reduction surgery H/O brain surgery Family History Mother HTN (hypertension) Breast cancer Father Primary cancer of bone marrow Social History (Reviewed 01/01/24 @ 14:47 by Geri Llamas [facility]) Household Members: Family Household Members Other:: granddaughter Housing: Apartment Are you a primary career and transition teacher to a significant other at home: No Do you presently have visiting nurse or other home services: Yes Unable to assess alcohol history related to: Unable to respond Alcohol intake: never Patient Tobacco Use Status: Former Tobacco user Tobacco use type: Cigarette Years Smoked: 15 +/- e-Cigarette/Vaping Use: Never Used Second Hand Smoke Exposure: No Advance Directives Date on File: 11/11/21 service: No Review of Systems Const Denies chills, Denies fatigue, Denies fever(s), Denies frequent falls, Denies weakness, Denies weight gain and Denies weight loss ENT Denies dizziness Card Denies chest pain, Denies leg edema, Denies lightheadedness, Denies palpitations, Denies dyspnea and Denies dyspnea on exertion Resp Denies cough, Denies dyspnea and Denies dyspnea on exertion GI Denies hematochezia Musc Denies abnormal gait, Denies muscle weakness, Denies numbness, Denies radiating pain into limb and Denies tingling Neuro Denies abnormal gait, Denies dizziness, Denies frequent falls, Denies numbness, Denies tingling and Denies weakness Endo Denies fatigue and Denies palpitations Physical Exam Vital Signs: Last Vital Signs Pulse 94 01/01/24 14:38 BP 124/64 01/01/24 14:38 BMI result Body Mass Index 38.7 GENERAL APPEARANCE: in no acute distress, pleasant. NECK: no carotid bruit, no jugular venous distention. SKIN: no suspicious lesions, warm and dry. HEART: no murmurs, regular rate and rhythm. LUNGS: clear to auscultation bilaterally. ABDOMEN: soft, nontender. EXTREMITIES: no edema. PERIPHERAL PULSES: equal. NEUROLOGIC: Hard of hearing. She reads lips. Office Procedures EKG Details: Sinus rhythm 94 beats per minute, left anterior fascicular block, right bundle- branch block, QTC 472 milliseconds. [id number], Complete Assessment & Plan Assessment & Plan (1) Pulmonary hypertension: Code(s): I27.20 - Pulmonary hypertension, unspecified Category: Medical Plan Pleasant 73 year female with history of DVT and questionable pulmonary embolism. She was on anticoagulation but has been taken off the anticoagulation at this stage. She there is some question about pulmonary hypertension based on CT scan in the past. She is on home oxygen now for COPD. I think we should repeat echocardiography and reassess PA pressures in particular and right ventricular function. Clinically not in heart failure. Not endorsing any significant chest discomfort or worsening shortness of breath. No further testing otherwise required. Follow-up with us in 1 year. Thank you for allowing me to participate in the care of your patient. Please feel free to contact me if you have any questions. Orders: Orders CA echo transthorac w con Today I27.20 - Pulmonary hypertension, unspecified Coding Level of Care Code Est Pt Level 4 (93383) Diagnoses Pulmonary hypertension I27.20 CPT Codes EKG - CPT: 39607-[id number], Complete ([id number])
== END 2024-01-01 15:08 | disposition home or self-care (01) ==
LOC: HO.HCS 14:33
PROVIDERS: PCP Family Medicine; Visit Provider Internal Medicine Cardiovascular Disease
DX: I27.20 Pulmonary hypertension, unspecified (principal)
CPT/HCPCS: 93010; 99214

== ENCOUNTER → 2024-01-01 14:32 | Outpatient (BNVA) | payer OTHER, SELFPAY | PROVIDERS: PCP Family Medicine; Visit Provider Internal Medicine Cardiovascular Disease | DX: I27.20 Pulmonary hypertension, unspecified (principal); I45.2 Bifascicular block; I82.452 Acute embolism and thrombosis of left peroneal vein | CPT/HCPCS: 93005; 99212 ==

== ENCOUNTER 2024-01-03 20:56 | Inpatient (IN) | payer OTHER, SELFPAY ==
--- NOTE | ~2024-01-03 | XR_ITS ---
EXAMINATION: XR CHEST CLINICAL INFORMATION: ill COMPARISON: Chest x-ray October 23, 2023 TECHNIQUE: Frontal portable view of the chest was obtained. 9:43 PM FINDINGS: No significant abnormality is noted involving the heart, lungs, mediastinum, bony thorax or soft tissues. XR/XR chest 1V IMPRESSION: Unremarkable examination. Electronically signed by: Lamberto Gutierrez MD 01/03/2024 11:03 PM EDT RP
--- NOTE | ~2024-01-03 | CT_ITS ---
EXAMINATION: CT ABDOMEN AND PELVIS WITH CONTRAST CLINICAL INFORMATION: Vomiting. COMPARISON: CT pelvis 01/18/2023 TECHNIQUE: Multidetector volumetric images were obtained from the superior aspect of the liver through the pubic symphysis following administration 85 mL of Omnipaque 350 intravenous contrast. Sagittal and coronal reformatted images were obtained on the technologist's workstation. Oral contrast: No This CT examination was performed using dose optimization techniques as appropriate, variously including the following: *Automated exposure control *Adjustment of mA and/or kV according to patient size (this includes techniques or standardized protocols for targeted exams where dose is matched to indication/reason for exam; i.e. extremities or head) *Use of iterative reconstruction technique DLP: 1122 mGy-cm FINDINGS: LUNG BASES: The visualized lung bases are unremarkable. LIVER, GALLBLADDER, AND BILIARY TREE: The liver is normal in size, shape, and attenuation. No focal hepatic lesion or biliary ductal dilatation is present. The gallbladder is unremarkable with no evidence of radiopaque gallstones, gallbladder wall thickening, or obvious pericholecystic inflammatory changes. PANCREAS: Unremarkable. SPLEEN: Unremarkable. ADRENAL GLANDS: Unremarkable. KIDNEYS AND URETERS: The kidneys are normal in size, shape, and attenuation. No hydronephrosis, hydroureter, or calculi seen. No perinephric stranding. BLADDER: Unremarkable. GASTROINTESTINAL TRACT: The appendix is normal in appearance. No free intraperitoneal fluid or gas collections are identified. An adjustable gastric lap band is present. Fluid distention of the proximal stomach is present and fluid distention of the visualized distal thoracic esophagus is noted. Mild fluid distention of the distal stomach is present. Making allowances for a contracted state of the stomach, no definitive mucosal or mural abnormalities of the stomach identified. No intestinal dilatation or mural thickening present. ABDOMINAL WALL: A periumbilical hernia containing fat without associated inflammatory changes measures approximately 2 cm in diameter. The benign-appearing densely calcified 3 cm lesion is present in the left breast in the subareolar region. LYMPH NODES: Normal. VASCULAR: Moderate diffuse calcific atherosclerosis. PELVIC VISCERA: Normal uterus. No adnexal lesions. OSSEOUS STRUCTURES: No suspicious skeletal lesions. CT/CT abdomen pelvis w IV con IMPRESSION: 1. Adjustable gastric lap band in place. Fluid distention of the proximal stomach and fluid distention of the visualized distal thoracic esophagus is present. Findings are suspicious for pouch dilatation and may predispose to aspiration. 2. Moderate diffuse calcific atherosclerosis. 3. Benign-appearing densely calcified 3 cm lesion within the left breast. This result with regards to the gastric findings was discussed with Dr. Karime HUGHES by telephone at 01/04/2024 3:37 AM EDT and it was ascertained that the content and urgency of the report was understood at the time of direct communication. Electronically signed by: Oziel Irby MD 01/04/2024 03:37 AM EDT
[2024-01-03 21:12] VITALS: BP 150/62; PULSE 98; O2SAT 99
[2024-01-03 21:13] VITALS: BP 141/72; PULSE 88; RESP 18; TEMP 34.8; O2SAT 98
[2024-01-03 21:21] VITALS: BP 141/72; PULSE 87; RESP 20; TEMP 35.6; O2SAT 99; BMI 40.0
[2024-01-03 21:23] LABS: Glucose, Whole Blood 62 mg/dL (60-115)
--- NOTE | 2024-01-03 21:32 | ECG_ITS ---
Test Reason : HYPOGLYCEMIA Blood Pressure : / mmHG Vent. Rate : 092 BPM Atrial Rate : 092 BPM P-R Int : 182 ms QRS Dur : 144 ms QT Int : 420 ms P-R-T Axes : 031 -19 058 degrees QTc Int : 519 ms Normal sinus rhythm Right bundle branch block Abnormal ECG When compared with ECG of 23-OCT-2023 01:51, No significant change was found Referred By: Yuri Cates Electronically Signed By:MARGARET KIM
[2024-01-03 22:22] LABS: Glucose, Whole Blood 34 mg/dL (60-115)
[2024-01-03 22:22] LABS: Glucose, Whole Blood 172 mg/dL (60-115)
--- NOTE | 2024-01-03 23:10 | ED_ITS ---
HPI - General Adult General Chief complaint: General Medical Stated complaint: hypoglycemia Time Seen by Provider: 01/03/24 21:15 Source: patient and family History of Present Illness ED Provider: Darryn BATISTA narrative: 73-year-old female with a past medical history of CASSANDRA, diabetes, mood disorder, asthma/COPD on 2 L baseline, hypertension, hyperlipidemia, DVT/PE currently on xarelto presenting for hypoglycemia - per daughter patient has been experiencing fatigue and weakness for the past week. Today patient had a few episodes of nausea and nonbloody nonbilious emesis. She as an insulin pump which showed her sugar to be in the thirties. She denies chest pain, shortness of breath, abdominal pain, urinary symptoms Related Data Home Medications ?Medication ?Instructions ?Recorded ?Confirmed duloxetine 60 mg capsule,delayed 60 mg PO DAILY 02/06/20 01/01/24 release lisinopril 10 mg tablet 10 mg PO DAILY 02/06/20 01/01/24 donepezil 5 mg tablet 5 mg PO BEDTIME 11/06/20 01/01/24 Oxygen Home Use 01/18/22 07/06/23 acetaminophen 500 mg tablet 650 mg PO Q6H PRN fever or pain 02/28/22 01/01/24 (Tylenol Extra Strength) lorazepam 1 mg tablet 1 mg PO TID PRN Anxiety 08/03/22 01/01/24 nebulizers 03/14/23 07/06/23 atorvastatin 40 mg tablet 40 mg PO DAILY 05/15/23 01/01/24 metformin 1,000 mg tablet 1,000 mg PO BID 05/15/23 01/01/24 azelastine 137 mcg (0.1 %) nasal 1 spray intranasal BID 10/23/23 01/01/24 spray tramadol 50 mg tablet 50 mg PO TID PRN Pain (Scale Score 10/23/23 01/01/24 1-3) vitamin B complex 1 cap PO DAILY 10/23/23 01/01/24 aripiprazole 15 mg tablet 15 mg PO DAILY 01/01/24 01/01/24 buspirone 15 mg tablet 30 mg PO BID 01/01/24 01/01/24 Previous Rx's ?Medication ?Instructions ?Recorded walker #1 ea 07/12/20 tiotropium bromide 2.5 2 puff inhalation DAILY 30 days #4 03/18/21 mcg/actuation mist for inhalation grams (Spiriva Respimat) lidocaine 5 % topical patch 1 patch topical DAILY 30 days #30 01/19/22 (Lidoderm) ea diabetic shoes #1 ea 09/12/22 blood-glucose meter,continuous #1 ea 11/29/22 (Dexcom G7 Maintenance Associate) blood-glucose transmitter (Dexcom #1 ea 12/30/22 G6 Transmitter device) albuterol sulfate 2.5 mg/3 mL 2.5 mg (3 mL) inhalation Q4-6H PRN 03/10/23 (0.083 %) solution for nebulization for wheezing #180 mL pen needle, diabetic 31 gauge x #100 ea 05/30/2307/19 (BD Ultra-Fine Short Pen Needle) gabapentin 300 mg capsule 300 mg PO BEDTIME 30 days #30 caps 09/20/23 albuterol sulfate 90 mcg/actuation 2 puff PO QID PRN shortness of 11/26/23 aerosol inhaler breath or wheezing 90 days #3 ea budesonide 160 mcg-glycopyr 9 2 inh inhalation BID 90 days #3 ea 11/26/23 mcg-formot 4.8 mcg/actuation HFA inhaler (Breztri Aerosphere) montelukast 10 mg tablet 10 mg PO DAILY 90 days #90 tabs 11/26/23 insulin aspart U-100 100 unit/mL See Rx Instructions subcut 12/08/23 subcutaneous solution (Novolog USEASDIRECTD 90 days #80 mL U-100 Insulin aspart) blood-glucose meter (FreeStyle #1 ea 12/13/23 Lite Meter kit) insulin glargine 100 unit/mL (3 8 unit (0.08 mL) subcut DAILY PRN 12/13/23 mL) subcutaneous pen (Lantus pump failure 30 days #3 mL Solostar U-100 Insulin) lancets 28 gauge (FreeStyle #100 ea 12/13/23 Lancets) pen needle, diabetic 32 gauge x #100 ea 12/13/23 (BD Verenice 2nd Gen Pen Needle) tirzepatide 5 mg/0.5 mL 5 mg (0.5 mL) subcut QWEEK 28 days 12/13/23 subcutaneous pen injector #2 mL (Hao) acetone (urine) test (Ketostix #50 ea 12/14/23 strips) blood sugar diagnostic (FreeStyle #100 ea 12/14/23 Lite Strips) blood-glucose sensor (Dexcom G7 #3 ea 12/19/23 Sensor device) Allergies Allergy/AdvReac Type Severity Reaction Status Date / Time aspirin [ASPIRIN] Allergy Intermediate GI UPSET, Verified 01/03/24 21:34 stomach pain latex [LATEX] Allergy Intermediate HIVES Verified 01/03/24 21:34 Review of Systems 2 Review of Systems: Patient endorses nausea and vomiting Yes all other systems are reviewed and are negative PMFSH Past Medical History Medical History (Updated 01/04/24 @ 01:59 by Yuri Cates MD) CASSANDRA (obstructive sleep apnea) Hypoglycemia associated with type 2 diabetes mellitus COPD exacerbation C. difficile enteritis COVID-19 DVT (deep venous thrombosis) Pulmonary hypertension Pulmonary emboli Acute on chronic respiratory failure with hypoxia and hypercapnia Chronic respiratory failure [place] (hard of hearing) PONV (postoperative nausea and vomiting) Post herpetic neuralgia Pneumonia Back pain Morbid obesity Chest crackles Cardiomegaly Asthma-COPD overlap syndrome Acute respiratory failure Hyperlipidemia Hypertension Diabetes Arnold-Chiari malformation Arthritis Fibromyalgia Cough CASSANDRA treated with BiPAP Asthma Sinusitis Surgical History Hx of eye surgery History of esophagogastroduodenoscopy (EGD) H/O colonoscopy Hx of laparoscopic gastric banding H/O bilateral breast reduction surgery H/O brain surgery Family History Family History Mother HTN (hypertension) Breast cancer Father Primary cancer of bone marrow Social History Social History Household Members: Family Household Members Other:: granddaughter Housing: Apartment Are you a primary transitional care liaison to a significant other at home: No Do you presently have visiting nurse or other home services: Yes Unable to assess alcohol history related to: Unable to respond Alcohol intake: never Patient Tobacco Use Status: Former Tobacco user Tobacco use type: Cigarette Years Smoked: 15 +/- Smoked in Last 30 Days: No e-Cigarette/Vaping Use: Never Used Second Hand Smoke Exposure: No Use of substances other than those prescribed or required for medical reasons: No Advance Directives: Yes Advance Directives on File: Yes Advance Directives Date on File: 11/11/21 service: No Physical Exam ED Vital Signs: Vital Signs - 24 hr 01/03/24 21:13 01/03/24 21:21 01/03/24 23:53 Temperature 94.6 F L 96.0 F L 93.9 F L Pulse Rate 88 87 Respiratory Rate 18 20 Blood Pressure 141/72 H 141/72 H Pulse Oximetry 98 99 Oxygen Delivery Method Room Air Nasal Cannula Oxygen Flow Rate 01/04/24 00:06 01/04/24 02:02 Temperature 98.2 F Pulse Rate 85 81 Respiratory Rate 19 11 L Blood Pressure 121/53 L 107/54 L Pulse Oximetry 98 98 Oxygen Delivery Method Nasal Cannula Nasal Cannula Oxygen Flow Rate 2 2 BMI result Body Mass Index 40.0 Well-appearing female in no acute distress Lungs clear to auscultation bilaterally; normal S1-S2 irregular rate and rhythm Abdomen is soft nontender nondistended Medications Administered Generic Name Dose Route Start Last Admin Trade Name Freq PRN Reason Stop Dose Admin Dextrose 1,000 mls @ 80 mls/hr 01/03/24 23:45 01/03/24 23:49 D5w IVCONT 80 mls/hr .[id number] HARRISON Administration Dextrose/Sodium Chloride 1,000 mls @ 80 mls/hr 01/03/24 23:45 01/03/24 23:58 D5ns IVCONT Not Given .[id number] HARRISON Discontinued Medications Generic Name Dose Route Start Last Admin Trade Name Freq PRN Reason Stop Dose Admin Dextrose 50 gm 01/03/24 22:15 01/03/24 23:35 Dextrose 50 % 25 Gm/50 Ml Syringe IVPUSH 01/03/24 22:16 50 gm ONCE ONE Administration Ondansetron HCl 4 mg 01/03/24 23:54 01/03/24 23:58 Ondansetron Hcl 4 Mg/2 Ml Vial IVPUSH 01/03/24 23:55 4 mg ONCE ONE Administration Medical Decision Making Medical Decision Making [facility] Narrative: This is a 73-year-old female presenting for hyperglycemia. I am concerned for the following; electrolyte/metabolic disturbance, underlying infection, hypoglycemia -labs, D50 and imaging studies ordered -labs notable for mild leukocytosis, stable H&H, electrolytes within normal limits, normal lactate, normal creatinine, UA unconcerning for UTI -I reviewed patient's chest x-ray and do not appreciate any consolidation and the radiologist's impression is negative for acute process -patient became hypoglycemic multiple times despite D50 and she was placed on a D5 infusion -CT abdomen pelvis ordered for persistent vomiting -I spoke with hospitalist and the patient was admitted to medicine Differential Diagnosis Differential Diagnoses: The differential diagnosis associated with the presentation includes Electrolyte/metabolic disturbance, hypoglycemia, underlying infection Lab Data 01/03/24 23:56 01/03/24 23:56 Labs: Lab Results 01/03/24 01/03/24 01/03/24 Range/Units 21:17 22:08 22:17 WBC (4.8-10.8) X10*3/uL RBC (4.20-5.50) X10*6/uL Hgb (12.0-16.0) g/dl Hct (37.0-47.0) % MCV (80.0-98.0) fL MCH (27.0-33.0) pg MCHC (31.0-35.0) g/dl RDW (11.0-16.0) % Plt Count (160-400) X10*3/uL MPV (9.4-12.3) fL Immature Gran % (Auto) (0.0-0.4) % Neut % (Auto) (45-73) % Lymph % (Auto) (20-40) % [place] % (Auto) (2-11) % Eos % (Auto) (0-4) % Baso % (Auto) (0-2) % Lymph # (Auto) (1.2-4.9) X10*3/uL [place] # (Auto) (0.1-1.2) X10*3/uL Eos # (Auto) (0.0-0.4) X10*3/uL Baso # (Auto) (0.0-0.2) X10*3/uL Abs Immat Gran (auto) (0.00-0.03) X10*3/uL Absolute Neuts (auto) (2.0-8.3) x10*3/uL Absolute Nucleated RBC (0.0-0.012) X10*3/uL Nucleated RBC % (auto) (0.0-0.2) /100WBC Sodium (135-145) mmol/L Potassium (3.3-5.1) mmol/L Chloride (96-108) mmol/L Carbon Dioxide (22-29) mmol/L Anion Gap (12-20) BUN (9-16) mg/dL Creatinine (0.5-1.4) mg/dL Estim Creat Clear Calc Estimated GFR POC Glucose 62 34 L* 172 H (60-115) mg/dL Random Glucose (60-115) mg/dL Lactic Acid (0.5-2.0) mmol/L Calcium (8.4-10.2) mg/dL Phosphorus (2.7-4.5) mg/dL Magnesium (1.6-2.6) mg/dL Total Bilirubin (0.0-1.0) mg/dL AST (5-31) U/L ALT (0-31) U/L Alkaline Phosphatase (39-117) U/L Troponin I High Sens (<3.5-17.0) ng/L Total Protein (6.5-8.0) g/dL Albumin (3.5-5.0) g/dL Lipase (8-78) U/L Urine Color Urine Appearance Urine pH (5.0-9.0) Ur Specific [place] (1.005-1.025) Urine Protein (Neg-Trace) mg/dL Urine Glucose (UA) (Negative) mg/dL Urine Ketones (Negative) mg/dL Urine Blood (Negative) Urine Nitrite (Negative) Ur Leukocyte Esterase (Negative) Urine RBC (0-2) /HPF Urine WBC (0-5) /HPF Ur Squamous Epith Cells (0-2) /HPF Calcium Oxalate Crystal Urine Bacteria (None Seen) Hyaline Casts (0-2) /LPF Influenza Type A (PCR) (Negative) Influenza Type B (PCR) (Negative) RSV RNA Qual (PCR) (Negative) SARS-CoV-2 RNA (RT-PCR) (Negative) 01/03/24 01/03/24 01/03/24 Range/Units 23:31 23:48 23:56 WBC 13.7 H (4.8-10.8) X10*3/uL RBC 4.21 (4.20-5.50) X10*6/uL Hgb 12.7 (12.0-16.0) g/dl Hct 38.4 (37.0-47.0) % MCV 91.2 (80.0-98.0) fL MCH 30.2 (27.0-33.0) pg MCHC 33.1 (31.0-35.0) g/dl RDW 14.6 (11.0-16.0) % Plt Count 233 (160-400) X10*3/uL MPV 9.3 L (9.4-12.3) fL Immature Gran % (Auto) 0.5 H (0.0-0.4) % Neut % (Auto) 84.0 H (45-73) % Lymph % (Auto) 9.7 L (20-40) % [place] % (Auto) 5.4 (2-11) % Eos % (Auto) 0.1 (0-4) % Baso % (Auto) 0.3 (0-2) % Lymph # (Auto) 1.3 (1.2-4.9) X10*3/uL [place] # (Auto) 0.7 (0.1-1.2) X10*3/uL Eos # (Auto) 0.0 (0.0-0.4) X10*3/uL Baso # (Auto) 0.0 (0.0-0.2) X10*3/uL Abs Immat Gran (auto) 0.07 H (0.00-0.03) X10*3/uL Absolute Neuts (auto) 11.5 H (2.0-8.3) x10*3/uL Absolute Nucleated RBC 0.000 (0.0-0.012) X10*3/uL Nucleated RBC % (auto) 0.0 (0.0-0.2) /100WBC Sodium 143 (135-145) mmol/L Potassium 4.3 (3.3-5.1) mmol/L Chloride 108 (96-108) mmol/L Carbon Dioxide 25 (22-29) mmol/L Anion Gap 14 (12-20) BUN 19 H (9-16) mg/dL Creatinine 0.76 (0.5-1.4) mg/dL Estim Creat Clear Calc 69.0 Estimated GFR > 60 POC Glucose 43 L* (60-115) mg/dL Random Glucose 122 H (60-115) mg/dL Lactic Acid (0.5-2.0) mmol/L Calcium 9.4 (8.4-10.2) mg/dL Phosphorus 3.3 (2.7-4.5) mg/dL Magnesium 1.7 (1.6-2.6) mg/dL Total Bilirubin 0.2 (0.0-1.0) mg/dL AST 35 H (5-31) U/L ALT 21 (0-31) U/L Alkaline Phosphatase 73 (39-117) U/L Troponin I High Sens 3.3 (<3.5-17.0) ng/L Total Protein 7.0 (6.5-8.0) g/dL Albumin 3.7 (3.5-5.0) g/dL Lipase 78 (8-78) U/L Urine Color Urine Appearance Urine pH (5.0-9.0) Ur Specific [place] (1.005-1.025) Urine Protein (Neg-Trace) mg/dL Urine Glucose (UA) (Negative) mg/dL Urine Ketones (Negative) mg/dL Urine Blood (Negative) Urine Nitrite (Negative) Ur Leukocyte Esterase (Negative) Urine RBC (0-2) /HPF Urine WBC (0-5) /HPF Ur Squamous Epith Cells (0-2) /HPF Calcium Oxalate Crystal Urine Bacteria (None Seen) Hyaline Casts (0-2) /LPF Influenza Type A (PCR) NEGATIVE (Negative) Influenza Type B (PCR) NEGATIVE (Negative) RSV RNA Qual (PCR) NEGATIVE (Negative) SARS-CoV-2 RNA (RT-PCR) NEGATIVE (Negative) 01/04/24 01/04/24 01/04/24 Range/Units 00:30 00:58 01:17 WBC (4.8-10.8) X10*3/uL RBC (4.20-5.50) X10*6/uL Hgb (12.0-16.0) g/dl Hct (37.0-47.0) % MCV (80.0-98.0) fL MCH (27.0-33.0) pg MCHC (31.0-35.0) g/dl RDW (11.0-16.0) % Plt Count (160-400) X10*3/uL MPV (9.4-12.3) fL Immature Gran % (Auto) (0.0-0.4) % Neut % (Auto) (45-73) % Lymph % (Auto) (20-40) % [place] % (Auto) (2-11) % Eos % (Auto) (0-4) % Baso % (Auto) (0-2) % Lymph # (Auto) (1.2-4.9) X10*3/uL [place] # (Auto) (0.1-1.2) X10*3/uL Eos # (Auto) (0.0-0.4) X10*3/uL Baso # (Auto) (0.0-0.2) X10*3/uL Abs Immat Gran (auto) (0.00-0.03) X10*3/uL Absolute Neuts (auto) (2.0-8.3) x10*3/uL Absolute Nucleated RBC (0.0-0.012) X10*3/uL Nucleated RBC % (auto) (0.0-0.2) /100WBC Sodium (135-145) mmol/L Potassium (3.3-5.1) mmol/L Chloride (96-108) mmol/L Carbon Dioxide (22-29) mmol/L Anion Gap (12-20) BUN (9-16) mg/dL Creatinine (0.5-1.4) mg/dL Estim Creat Clear Calc Estimated GFR POC Glucose 96 (60-115) mg/dL Random Glucose (60-115) mg/dL Lactic Acid 1.9 (0.5-2.0) mmol/L Calcium (8.4-10.2) mg/dL Phosphorus (2.7-4.5) mg/dL Magnesium (1.6-2.6) mg/dL Total Bilirubin (0.0-1.0) mg/dL AST (5-31) U/L ALT (0-31) U/L Alkaline Phosphatase (39-117) U/L Troponin I High Sens (<3.5-17.0) ng/L Total Protein (6.5-8.0) g/dL Albumin (3.5-5.0) g/dL Lipase (8-78) U/L Urine Color Dark Yellow Urine Appearance Clear Urine pH 6.0 (5.0-9.0) Ur Specific [place] >= 1.030 H (1.005-1.025) Urine Protein 100 (2+) H (Neg-Trace) mg/dL Urine Glucose (UA) 100 H (Negative) mg/dL Urine Ketones Trace (Negative) mg/dL Urine Blood Negative (Negative) Urine Nitrite Negative (Negative) Ur Leukocyte Esterase Trace H (Negative) Urine RBC 0-2 (0-2) /HPF Urine WBC 0-5 (0-5) /HPF Ur Squamous Epith Cells 0-2 (0-2) /HPF Calcium Oxalate Crystal Present Urine Bacteria None Seen (None Seen) Hyaline Casts 0-2 (0-2) /LPF Influenza Type A (PCR) (Negative) Influenza Type B (PCR) (Negative) RSV RNA Qual (PCR) (Negative) SARS-CoV-2 RNA (RT-PCR) (Negative) Discharge Plan Discharge Clinical Impression: Hypoglycemia Patient Disposition: Admitted As Inpatient Print Language: Yoruba
[2024-01-03 23:34] LABS: Glucose, Whole Blood 43 mg/dL (60-115)
[2024-01-03] MEDS: Dextrose 50 % 25 GM/50 ML SYRINGE IVPUSH (23:35)
[2024-01-03] MEDS: Dextrose 5 % 1,000 ML 80 ML IVCONT (23:49)
[2024-01-03 23:53] VITALS: TEMP 34.4
[2024-01-03] MEDS: ondansetron HCL 4 MG/2 ML VIAL IVPUSH (23:58)
[2024-01-04] VITALS (8 sets, daily range): BP systolic 107–142; BP diastolic 53–68; PULSE 68–97; RESP 11–20; TEMP 36.2–37.2; O2SAT 96–99; BMI 40.0
[2024-01-04 00:02] LABS: MANUAL DIFF FLAG NO
[2024-01-04 00:03] LABS: Basophils Percent Auto 0.3 % (0-2); Eosinophils Percent Auto 0.1 % (0-4); Hematocrit 38.4 % (37.0-47.0); Hemoglobin 12.7 g/dl (12.0-16.0); Imm Gran Abs Auto 0.07 X10*3/uL (0.00-0.03); Imm Gran Pct Auto 0.5 % (0.0-0.4); Lymphocytes Absolute Auto 1.3 X10*3/uL (1.2-4.9); Lymphocytes Percent Auto 9.7 % (20-40); Mean Corpuscular HGB Conc 33.1 g/dl (31.0-35.0); Mean Corpuscular Hemoglobin 30.2 pg (27.0-33.0); Mean Corpuscular Volume 91.2 fL (80.0-98.0); Mean Platelet Volume 9.3 fL (9.4-12.3); Monocytes Absolute Auto 0.7 X10*3/uL (0.1-1.2); Monocytes Percent Auto 5.4 % (2-11); Neutrophils Absolute Auto 11.5 x10*3/uL (2.0-8.3); Platelet Count 233 X10*3/uL (160-400); Red Blood Count 4.21 X10*6/uL (4.20-5.50); Red Cell Distribution Width 14.6 % (11.0-16.0); White Blood Count 13.7 X10*3/uL (4.8-10.8)
--- NOTE | 2024-01-04 00:07 | PC.NURSE ---
Medicated per order, core temp 93, notified provider, rehana singletary placed, pt difficlult to collect labs per AURELIO Zelaya, Phlebotomy called and labs collected.
[2024-01-04 00:16] LABS: Alanine Aminotransferase 21 U/L (0-31); Albumin Level 3.7 g/dL (3.5-5.0); Alkaline Phosphatase 73 U/L (39-117); Anion Gap 14 (12-20); Aspartate Amino Transferase 35 U/L (5-31); Bilirubin Total 0.2 mg/dL (0.0-1.0); Blood Urea Nitrogen 19 mg/dL (9-16); Calcium 9.4 mg/dL (8.4-10.2); Carbon Dioxide 25 mmol/L (22-29); Chloride 108 mmol/L (96-108); Estimated Glomerular Filt Rate > 60; Glucose Random 122 mg/dL (60-115); Lipase 78 U/L (8-78); Magnesium 1.7 mg/dL (1.6-2.6); Phosphorus 3.3 mg/dL (2.7-4.5); Potassium 4.3 mmol/L (3.3-5.1); Sodium 143 mmol/L (135-145)
[2024-01-04 00:22] LABS: Troponin-I High Sensitivity 3.3 ng/L (<3.5-17.0)
[2024-01-04 00:32] LABS: Influenza A PCR NEGATIVE (Negative); Influenza B PCR NEGATIVE (Negative); Resp Syncy Virus RNA Qual PCR NEGATIVE (Negative); SARS COV2 PCR INHOUSE NEGATIVE (Negative)
[2024-01-04 00:34] LABS: Glucose, Whole Blood 96 mg/dL (60-115)
[2024-01-04 01:20] LABS: Lactic Acid 1.9 mmol/L (0.5-2.0)
[2024-01-04 01:25] LABS: Appearance Urine Clear; Color Urine Dark Yellow; Glucose Urine UA 100 mg/dL (Negative); Leukocyte Esterase Urine Trace (Negative); Nitrite Urine Negative (Negative); Specific Gravity - Urine >= 1.030 (1.005-1.025); UMIC TRIGGER UACC YES; Urine Blood Negative (Negative); Urine Ketones Trace mg/dL (Negative); Urine Protein 100 (2+) mg/dL (Neg-Trace)
--- NOTE | 2024-01-04 01:35 | PC.NURSE ---
Pt straight cath and UA obtained Complete graciela care completed and gown change done Pt repositioned on right side and butterfly padding placed. Pt placed in bear hugger Pt requested and light dimmed Family remains at bedside. Plan of care ongoing.
[2024-01-04 01:39] LABS: Bacteria Urine None Seen (None Seen); Calcium Oxalate Crystals Urine Present; Hyaline Casts Urine 0-2 /LPF (0-2); RBC Urine 0-2 /HPF (0-2); Squamous Epithelial Cell Urine 0-2 /HPF (0-2); WBC Urine 0-5 /HPF (0-5)
[2024-01-04 02:11] LABS: Glucose, Whole Blood 73 mg/dL (60-115)
[2024-01-04] MEDS: iohexoL 350 MG/ML 100 ML INFUS..BTL 85 ML IV (02:35)
[2024-01-04] MEDS: Metoclopramide HCl 10 MG/2 ML VIAL IVPUSH (02:37)
[2024-01-04 02:54] LABS: TSH reflex Free T4 1.83 uIU/mL (0.32-4.0)
[2024-01-04 03:08] LABS: Glucose, Whole Blood 76 mg/dL (60-115)
--- NOTE | 2024-01-04 03:13 | PC.NURSE ---
Daughter would like to be called with any updates @[phone]
[2024-01-04 04:08] LABS: Glucose, Whole Blood 90 mg/dL (60-115)
--- NOTE | 2024-01-04 05:22 | P.HPHOSP_ITS ---
History of Present Illness Date of Service: 01/04/24 Attending physician on admission: Rafa Matute Chief Complaint: Vomiting, low glucose Madeleine Ledezma is a 73 years old woman with past medical history significant for type 2 diabetes mellitus on insulin pump, CASSANDRA/OHS noncompliant with BiPAP, chronic respiratory failure, asthma/COPD overlap syndrome, essential hypertension, hyperlipidemia and VTE on Xarelto presents to the emergency department after she developed multiple episodes of vomiting yesterday around 4 pm followed by hypoglycemia of 30. She reported some abdominal discomfort and dizziness. Did not report diarrhea, fever or chills. Denied loss of consciousness. Her granddaughter who was at bedside commented the the patient does not really know how to manage her insulin i pump. Patient did not report alcohol abuse, tobacco smoking or illicit drug use. Patient's insulin infusion was removed. In the ED, she was found to have hypothermia of 93.9. The rest of the vital signs are normal. She is on 2 L/min supplemental oxygen via nasal cannula. Blood workup showed leukocytosis of 13.7. There is no lactic acidosis. Hemoglobin and platelets are normal. There are no significant electrolyte imbalances. BUN is 19 and creatinine 0.76. LFTs are basically normal except for minimal elevation of AST, 35. Albumin and troponins are normal. Urinalysis is not consistent with UTI. Viral testing for COVID-19, influenza and RSV is negative. CXR is negative. Abdominal pelvis CT scan with IV contrast showed adjustable gastric lap band in place, distention of the proximal stomach and distal thoracic esophagus, suspicious for pouch dilatation. ED tx: Zofran 4 mg IV, Reglan 10 mg IV, D10 IV Review of Systems 2 Review of Systems: All 12 systems were reviewed and normal except as noted in HPI. [facility] Medical History (Updated 01/04/24 @ 05:58 by Rafa Matute MD) CASSANDRA (obstructive sleep apnea) Hypoglycemia associated with type 2 diabetes mellitus COPD exacerbation C. difficile enteritis COVID-19 DVT (deep venous thrombosis) Pulmonary hypertension Pulmonary emboli Acute on chronic respiratory failure with hypoxia and hypercapnia Chronic respiratory failure AGDAAGUX (hard of hearing) PONV (postoperative nausea and vomiting) Post herpetic neuralgia Pneumonia Back pain Morbid obesity Chest crackles Cardiomegaly Asthma-COPD overlap syndrome Acute respiratory failure Hyperlipidemia Hypertension Diabetes Arnold-Chiari malformation Arthritis Fibromyalgia Cough CASSANDRA treated with BiPAP Asthma Sinusitis Family History Mother HTN (hypertension) Breast cancer Father Primary cancer of bone marrow Surgical History Hx of eye surgery History of esophagogastroduodenoscopy (EGD) H/O colonoscopy Hx of laparoscopic gastric banding H/O bilateral breast reduction surgery H/O brain surgery Social History Household Members: Family Household Members Other:: granddaughter Housing: Apartment Are you a primary care program director to a significant other at home: No Do you presently have visiting nurse or other home services: Yes Unable to assess alcohol history related to: Unable to respond Alcohol intake: never Patient Tobacco Use Status: Former Tobacco user Tobacco use type: Cigarette Years Smoked: 15 +/- Smoked in Last 30 Days: No e-Cigarette/Vaping Use: Never Used Second Hand Smoke Exposure: No Use of substances other than those prescribed or required for medical reasons: No Advance Directives: Yes Advance Directives on File: Yes Advance Directives Date on File: 11/11/21 service: No Meds Allergies Allergy/AdvReac Type Severity Reaction Status Date / Time aspirin [ASPIRIN] Allergy Intermediate GI UPSET, Verified 01/03/24 21:34 stomach pain latex [LATEX] Allergy Intermediate HIVES Verified 01/03/24 21:34 Active Medications: Current Medications Acetaminophen (Acetaminophen 325 Mg Tablet) 975 mg PO Q6H PRN PRN Reason: Pain, Mild (Pain Scale 1-3), fever or headache Enoxaparin Sodium (Enoxaparin Sodium 40 Mg/0.4 Ml Syringe) 40 mg SUBCUT Q24H HARRISON Dextrose (D5w) 1,000 mls @ 80 mls/hr IVCONT .[id number] HARRISON Last Admin: 01/03/24 23:49 Dose: 80 mls/hr Dextrose/Sodium Chloride (D5ns) 1,000 mls @ 80 mls/hr IVCONT .[id number] HARRISON Last Admin: 01/03/24 23:58 Dose: Not Given Sodium Chloride (0.9 % Sodium Chloride Flush 3 Ml Syringe) 3 ml IVFLUSH QSHIFT HARRISON Home Medications ?Medication ?Instructions ?Recorded ?Confirmed ?Last Taken ?Type duloxetine 60 mg capsule,delayed 60 mg PO DAILY 02/06/20 01/01/24 02/27/22 History release lisinopril 10 mg tablet 10 mg PO DAILY 02/06/20 01/01/24 02/27/22 History donepezil 5 mg tablet 5 mg PO BEDTIME 11/06/20 01/01/24 02/27/22 History Oxygen Home Use 01/18/22 07/06/23 Unknown History acetaminophen 500 mg tablet 650 mg PO Q6H PRN fever or pain 02/28/22 01/01/24 02/27/22 History (Tylenol Extra Strength) lorazepam 1 mg tablet 1 mg PO TID PRN Anxiety 08/03/22 01/01/24 Unknown History nebulizers 03/14/23 07/06/23 Unknown History atorvastatin 40 mg tablet 40 mg PO DAILY 05/15/23 01/01/24 Unknown History metformin 1,000 mg tablet 1,000 mg PO BID 05/15/23 01/01/24 Unknown History azelastine 137 mcg (0.1 %) nasal 1 spray intranasal BID 10/23/23 01/01/24 Unknown History spray tramadol 50 mg tablet 50 mg PO TID PRN Pain (Scale Score 10/23/23 01/01/24 Unknown History 1-3) vitamin B complex 1 cap PO DAILY 10/23/23 01/01/24 Unknown History aripiprazole 15 mg tablet 15 mg PO DAILY 01/01/24 01/01/24 Unknown History buspirone 15 mg tablet 30 mg PO BID 01/01/24 01/01/24 Unknown History Physical Exam 2 Vital Signs and Narrative: Vital Signs: Last Vital Signs Temp 97.8 F 01/04/24 04:24 Pulse 91 01/04/24 04:24 Resp 18 01/04/24 04:24 BP 128/66 01/04/24 04:24 Pulse Ox 96 01/04/24 04:24 O2 Del Method Room Air 01/04/24 04:24 O2 Flow Rate 2 01/04/24 02:02 Oxygen Flow Rate 2 01/03/24 21:21 BMI result Body Mass Index 40.0 Constitutional - Awake and Alert, No apparent distress Eyes - PERRLA, EOMI Cardiovascular - S1S2, RRR, No edema Respiratory - Normal lung expansion, Normal respiratory effort, No respiratory distress, CTA bilaterally Gastrointestinal - NT / ND; +BS; No rebound or guarding Extremities - no calf tenderness bilaterally, no swelling Musculoskeletal - Normal inspection, normal ROM Skin - Warm/Dry Neurological - Alert & oriented x3, CN II-XII in tact, 5/5 strength BUE and BLE Psychological - Appropriate affect Results Labs 01/03/24 23:56 01/03/24 23:56 Labs: Laboratory Results - last 24 hr 01/03/24 01/03/24 01/03/24 21:17 22:08 22:17 MCV MCH MCHC RDW Plt Count MPV Immature Gran % (Auto) Neut % (Auto) Lymph % (Auto) [place] % (Auto) Eos % (Auto) Baso % (Auto) Lymph # (Auto) [place] # (Auto) Eos # (Auto) Baso # (Auto) Abs Immat Gran (auto) Absolute Neuts (auto) Absolute Nucleated RBC Nucleated RBC % (auto) Anion Gap Estim Creat Clear Calc Estimated GFR POC Glucose 62 34 L* 172 H Random Glucose Lactic Acid Calcium Phosphorus Magnesium Total Bilirubin AST ALT Alkaline Phosphatase Troponin I High Sens Total Protein Albumin Lipase TSH Urine Color Urine Appearance Urine pH Ur Specific [place] Urine Protein Urine Glucose (UA) Urine Ketones Urine Blood Urine Nitrite Ur Leukocyte Esterase Urine RBC Urine WBC Ur Squamous Epith Cells Calcium Oxalate Crystal Urine Bacteria Hyaline Casts Influenza Type A (PCR) Influenza Type B (PCR) RSV RNA Qual (PCR) SARS-CoV-2 RNA (RT-PCR) 01/03/24 01/03/24 01/03/24 23:31 23:48 23:56 MCV 91.2 MCH 30.2 MCHC 33.1 RDW 14.6 Plt Count 233 MPV 9.3 L Immature Gran % (Auto) 0.5 H Neut % (Auto) 84.0 H Lymph % (Auto) 9.7 L [place] % (Auto) 5.4 Eos % (Auto) 0.1 Baso % (Auto) 0.3 Lymph # (Auto) 1.3 [place] # (Auto) 0.7 Eos # (Auto) 0.0 Baso # (Auto) 0.0 Abs Immat Gran (auto) 0.07 H Absolute Neuts (auto) 11.5 H Absolute Nucleated RBC 0.000 Nucleated RBC % (auto) 0.0 Anion Gap 14 Estim Creat Clear Calc 69.0 Estimated GFR > 60 POC Glucose 43 L* Random Glucose 122 H Lactic Acid Calcium 9.4 Phosphorus 3.3 Magnesium 1.7 Total Bilirubin 0.2 AST 35 H ALT 21 Alkaline Phosphatase 73 Troponin I High Sens 3.3 Total Protein 7.0 Albumin 3.7 Lipase 78 TSH 1.83 Urine Color Urine Appearance Urine pH Ur Specific [place] Urine Protein Urine Glucose (UA) Urine Ketones Urine Blood Urine Nitrite Ur Leukocyte Esterase Urine RBC Urine WBC Ur Squamous Epith Cells Calcium Oxalate Crystal Urine Bacteria Hyaline Casts Influenza Type A (PCR) NEGATIVE Influenza Type B (PCR) NEGATIVE RSV RNA Qual (PCR) NEGATIVE SARS-CoV-2 RNA (RT-PCR) NEGATIVE 01/04/24 01/04/24 01/04/24 00:30 00:58 01:17 MCV MCH MCHC RDW Plt Count MPV Immature Gran % (Auto) Neut % (Auto) Lymph % (Auto) [place] % (Auto) Eos % (Auto) Baso % (Auto) Lymph # (Auto) [place] # (Auto) Eos # (Auto) Baso # (Auto) Abs Immat Gran (auto) Absolute Neuts (auto) Absolute Nucleated RBC Nucleated RBC % (auto) Anion Gap Estim Creat Clear Calc Estimated GFR POC Glucose 96 Random Glucose Lactic Acid 1.9 Calcium Phosphorus Magnesium Total Bilirubin AST ALT Alkaline Phosphatase Troponin I High Sens Total Protein Albumin Lipase TSH Urine Color Dark Yellow Urine Appearance Clear Urine pH 6.0 Ur Specific [place] >= 1.030 H Urine Protein 100 (2+) H Urine Glucose (UA) 100 H Urine Ketones Trace Urine Blood Negative Urine Nitrite Negative Ur Leukocyte Esterase Trace H Urine RBC 0-2 Urine WBC 0-5 Ur Squamous Epith Cells 0-2 Calcium Oxalate Crystal Present Urine Bacteria None Seen Hyaline Casts 0-2 Influenza Type A (PCR) Influenza Type B (PCR) RSV RNA Qual (PCR) SARS-CoV-2 RNA (RT-PCR) 01/04/24 01/04/24 01/04/24 01:54 03:04 04:04 MCV MCH MCHC RDW Plt Count MPV Immature Gran % (Auto) Neut % (Auto) Lymph % (Auto) [place] % (Auto) Eos % (Auto) Baso % (Auto) Lymph # (Auto) [place] # (Auto) Eos # (Auto) Baso # (Auto) Abs Immat Gran (auto) Absolute Neuts (auto) Absolute Nucleated RBC Nucleated RBC % (auto) Anion Gap Estim Creat Clear Calc Estimated GFR POC Glucose 73 76 90 Random Glucose Lactic Acid Calcium Phosphorus Magnesium Total Bilirubin AST ALT Alkaline Phosphatase Troponin I High Sens Total Protein Albumin Lipase TSH Urine Color Urine Appearance Urine pH Ur Specific [place] Urine Protein Urine Glucose (UA) Urine Ketones Urine Blood Urine Nitrite Ur Leukocyte Esterase Urine RBC Urine WBC Ur Squamous Epith Cells Calcium Oxalate Crystal Urine Bacteria Hyaline Casts Influenza Type A (PCR) Influenza Type B (PCR) RSV RNA Qual (PCR) SARS-CoV-2 RNA (RT-PCR) Imaging Radiologist's Impressions: Impressions Chest X-Ray 01/03/24 21:32 IMPRESSION: Unremarkable examination. Electronically signed by: Lamberto Gutierrez MD 01/03/2024 11:03 PM EDT RP Abdomen/Pelvis CT 01/04/24 02:02 IMPRESSION: 1. Adjustable gastric lap band in place. Fluid distention of the proximal stomach and fluid distention of the visualized distal thoracic esophagus is present. Findings are suspicious for pouch dilatation and may predispose to aspiration. 2. Moderate diffuse calcific atherosclerosis. 3. Benign-appearing densely calcified 3 cm lesion within the left breast. This result with regards to the gastric findings was discussed with Dr. Karime HUGHES by telephone at 01/04/2024 3:37 AM EDT and it was ascertained that the content and urgency of the report was understood at the time of direct communication. Electronically signed by: Oziel Irby MD 01/04/2024 03:37 AM EDT RP Assessment and Plan (1) Hypoglycemia: Status: Acute (2) Vomiting: Qualifiers: Vomiting type: unspecified Nausea presence: with nausea Qualified Code(s): R11.2 - Nausea with vomiting, unspecified Status: Acute (3) Hypothermia: Qualifiers: Encounter type: initial encounter Qualified Code(s): T68.XXXA - Hypothermia, initial encounter Status: Acute Plan Madeleine Ledezma is a 73 y/o woman admitted with: * Hypoglycemia on the setting of insulin pump + vomiting/poor p.o. intake. Admit to hospitalist service. Insulin pump removed. Hold metformin. Continue IV fluids with D5. BG checks every 2 hours for now. * Hypothermia secondary to above resolved. * Vomiting; resolved. Stomach and distal esophagus dilatation --> suspicious for pouch dilatation. To consider surgery consult. Antiemetic therapy as needed. * Essential hypertension. Continue lisinopril. * Chronic respiratory failure/CASSANDRA/OHS/COPD/asthma. Continue supplemental oxygen and home inhalers. Keep O2 sats > 90%. Nocturnal CPAP. * History of VTE. Not on anticoagulation. * Morbid obesity. BMI 40.0 kg.m2. Receiving tx with Maunjaro. * Hyperlipidemia. Continue atorvastatin. * Mental health. Continue aripiprazole, duloxetine, buspirone, donepezil. * Chronic back pain. Continue tramadol and gabapentin. * GERD. Continue PPI. Code status: Full DVT prophylaxis: Lovenox Patient will need hospitalization for at least 2 midnights for hypoglycemia treatment with continuous monitoring of blood glucose and IV fluid with D5. Quality Stroke Does the patient have a stroke diagnosis?: No VTE Prior VTE?: No VTE Risk Level:: Medical - moderate - high VTE Device Contraindication: Treatment Not Indicated VTE Drug Contraindication: N/A - Med Ordered
[2024-01-04 05:29] LABS: Glucose, Whole Blood 131 mg/dL (60-115)
--- NOTE | 2024-01-04 05:59 | PC.NURSE ---
This RN did complete bed and graciela care. Pt repositioned for comfort. Pt taken off of bear hugger as rectal temp was 98.1 Plan of care ongoing.
[2024-01-04 06:04] LABS: Basophils Percent Auto 0.3 % (0-2); Eosinophils Absolute Auto 0.1 X10*3/uL (0.0-0.4); Eosinophils Percent Auto 0.5 % (0-4); Hematocrit 37.2 % (37.0-47.0); Hemoglobin 12.4 g/dl (12.0-16.0); Imm Gran Abs Auto 0.05 X10*3/uL (0.00-0.03); Imm Gran Pct Auto 0.4 % (0.0-0.4); Lymphocytes Absolute Auto 2.5 X10*3/uL (1.2-4.9); Lymphocytes Percent Auto 20.1 % (20-40); MANUAL DIFF FLAG NO; Mean Corpuscular HGB Conc 33.3 g/dl (31.0-35.0); Mean Corpuscular Hemoglobin 30.2 pg (27.0-33.0); Mean Corpuscular Volume 90.5 fL (80.0-98.0); Mean Platelet Volume 9.1 fL (9.4-12.3); Monocytes Absolute Auto 0.6 X10*3/uL (0.1-1.2); Monocytes Percent Auto 4.8 % (2-11); Neutrophils Absolute Auto 9.3 x10*3/uL (2.0-8.3); Neutrophils Percent Auto 73.9 % (45-73); Platelet Count 268 X10*3/uL (160-400); Red Blood Count 4.11 X10*6/uL (4.20-5.50); Red Cell Distribution Width 14.5 % (11.0-16.0); White Blood Count 12.6 X10*3/uL (4.8-10.8)
[2024-01-04 06:17] LABS: Anion Gap 14 (12-20); Blood Urea Nitrogen 19 mg/dL (9-16); Calcium 9.7 mg/dL (8.4-10.2); Carbon Dioxide 27 mmol/L (22-29); Chloride 104 mmol/L (96-108); Estimated Glomerular Filt Rate > 60; Glucose Random 138 mg/dL (60-115); Magnesium 1.5 mg/dL (1.6-2.6); Potassium 4.3 mmol/L (3.3-5.1); Sodium 141 mmol/L (135-145)
[2024-01-04 07:50] LABS: Glucose, Whole Blood 128 mg/dL (60-115)
[2024-01-04] MEDS: Enoxaparin Sodium 40 MG/0.4 ML SYRINGE SUBCUT (09:35)
[2024-01-04 09:52] LABS: Glucose, Whole Blood 179 mg/dL (60-115)
[2024-01-04] MEDS: Dextrose 5 % 1,000 ML 80 ML IVCONT ×2 (10:41→22:45)
--- NOTE | 2024-01-04 10:56 | PHA.MEDREC ---
Pharmacy Consult ? Medication Reconciliation Pharmacy has completed the medication reconciliation. Confirmed medications with patient. Patient confirmed medications. Patient confirmed her Nolvolog Insulin stating she does it in a pump, when asking patient about wht pump she uses she was not 100% sure which one she was using as the patient took off the pump before coming here. I looked up online some differnt pumps and the patient confirmed it was a MiniMed Pump but couldn't remember what model it was, weather it be 630G, 770G or 780G, they all look similar.
[2024-01-04 10:57] LABS: Glucose, Whole Blood 194 mg/dL (60-115)
--- NOTE | 2024-01-04 11:00 | PHA.MEDREC ---
Pharmacy Consult ? Medication Reconciliation Pharmacy has completed the medication reconciliation. Confirmed medications with patient. Patient confirmed medications. Patient confirmed her Nolvolog Insulin stating she does it in a pump, when asking patient about wht pump she uses she was not 100% sure which one she was using as the patient took off the pump before coming here. I looked up online some differnt pumps and the patient confirmed it was a MiniMed Pump but couldn't remember what model it was, weather it be 630G, 770G or 780G, they all look similar. The patient also states she is not using the Lantus solostar as needed and couldn't recall using or having that medication at home.
--- NOTE | 2024-01-04 11:18 | MHC.CM.PN ---
CM met with Patient and her Daughter/[employer]/HCP/Irbian at bedside and addressed IMM with them (original was given to Patient and a copy has been placed on the chart). Patient lives in an apartment with her 16 year old Granddaughter and she uses a walker to assist with mobility. Patient has a [employer]SE 25 hours/week and home O2 through [facility] [place]. Patient was recently active with [facility], who is following. Home/resume said services is the goal and CM has initiated and will follow for dc planning. PCP is Dr. Rito Abraham in [facility].Daughter will transport to home.
--- NOTE | 2024-01-04 13:24 | PM.EVENT ---
Event Note Date of Service: 01/04/24 Event Note: This patient is seen and examined by hospitalist service this morning seen and examined again nausea /vomiting seems improved fs improving on fluids Physical exam-seems similar and assessment and plan coordinated in h&P note. Agree with the plan in addition: hypoglycemia ,vomiting continue ivf ,antiemtics ,ct abd -? pauch-added Baritrics surgery eval hold insulin pump , check hba1c hypomagnesemia -added magnesiumiv and po. Time Spent With Patient Time: Total time managing care of this patient today ____ minutes.
[2024-01-04 13:55] LABS: Glucose, Whole Blood 233 mg/dL (60-115)
[2024-01-04] MEDS: Magnesium Oxide 400 MG TABLET PO (14:37)
[2024-01-04] MEDS: Magnesium Sulfate/D5W 1 GM/100 ML PIGGYBACK IV (14:37)
[2024-01-04] MEDS: 0.9 % Sodium Chloride Flush 3 ML SYRINGE IVFLUSH (14:41)
--- NOTE | 2024-01-04 15:22 | PM.CNGS ---
History of Present Illness Consult details Consult date: 01/04/24 Reason for consult: other Requesting physician: Chente Ham Narrative: Patient is a pleasant 73-year-old female who has a history of laparoscopic gastric banding performed by Dr. Rebolledo at [facility] a proximally 2008. She states that she has not been seen by him or his associates in greater than 10 years. Reports her lowest weight of 150 lb. We are asked to evaluate the patient in the setting of abnormal CT scan findings in the setting of hospital admission due to hypoglycemia. Patient states that she was in her usual state of health, not following a particular meal plan and developed nausea and vomiting with associated weakness. Blood sugars were in the 30s and she presented to the emergency room. She was stabilized and admitted to the hospital for further care. Her home health aide was at bedside and assisted with her history and overall meal plan. Patient states that she would have oatmeal, coffee, splinted in the morning followed by crackers and cheese in the afternoon and a sweet potato and possibly chicken in the evening with fruit loops and Cheerios cereal in the evenings. She does not exercise very much, using supplemental oxygen at home although is able to ambulate with the use of a walker and sometimes goes out of the house without her oxygen. She does not formally exercise although recently completed a course of physical therapy for lower extremity neuropathy. She does have associated obesity related comorbidities including obstructive sleep apnea, diabetes, hypertension. She does state that she would like to follow-up with our bariatric service once discharged. Review of Systems Review of Systems: Yes all other systems are reviewed and are negative PMFSH Past Medical History Medical History (Updated 01/04/24 @ 15:29 by KULWANT Juan) Morbid obesity CASSANDRA (obstructive sleep apnea) Hypoglycemia associated with type 2 diabetes mellitus COPD exacerbation C. difficile enteritis COVID-19 DVT (deep venous thrombosis) Pulmonary hypertension Pulmonary emboli Acute on chronic respiratory failure with hypoxia and hypercapnia Chronic respiratory failure [place] (hard of hearing) PONV (postoperative nausea and vomiting) Post herpetic neuralgia Pneumonia Back pain Chest crackles Cardiomegaly Asthma-COPD overlap syndrome Acute respiratory failure Hyperlipidemia Hypertension Diabetes Arnold-Chiari malformation Arthritis Fibromyalgia Cough CASSANDRA treated with BiPAP Asthma Sinusitis Family History Family History Mother HTN (hypertension) Breast cancer Father Primary cancer of bone marrow Surgical History Surgical History Hx of eye surgery History of esophagogastroduodenoscopy (EGD) H/O colonoscopy Hx of laparoscopic gastric banding H/O bilateral breast reduction surgery H/O brain surgery Social History Social History Household Members: Family Household Members Other:: granddaughter Housing: Apartment Are you a primary health care coordinator to a significant other at home: No Do you presently have visiting nurse or other home services: Yes ([facility]) Unable to assess alcohol history related to: Unable to respond Alcohol intake: never Patient Tobacco Use Status: Former Tobacco user Tobacco use type: Cigarette Years Smoked: 15 +/- e-Cigarette/Vaping Use: Never Used Second Hand Smoke Exposure: No Advance Directives Date on File: 11/11/21 service: No Meds Allergies Allergy/AdvReac Type Severity Reaction Status Date / Time aspirin [ASPIRIN] Allergy Intermediate GI UPSET, Verified 01/03/24 21:34 stomach pain latex [LATEX] Allergy Intermediate HIVES Verified 01/03/24 21:34 Active Medications: Current Medications Acetaminophen (Acetaminophen 325 Mg Tablet) 975 mg PO Q6H PRN PRN Reason: Pain, Mild (Pain Scale 1-3), fever or headache Enoxaparin Sodium (Enoxaparin Sodium 40 Mg/0.4 Ml Syringe) 40 mg SUBCUT Q24H PENDING SALE TO [facility] Last Admin: 01/04/24 09:35 Dose: 40 mg Dextrose (D5w) 1,000 mls @ 80 mls/hr IVCONT .[id number] PENDING SALE TO [facility] Last Admin: 01/04/24 10:41 Dose: 80 mls/hr Dextrose/Sodium Chloride (D5ns) 1,000 mls @ 40 mls/hr IVCONT .Q24H PENDING SALE TO [facility] Last Admin: 01/03/24 23:58 Dose: Not Given Magnesium Oxide (Magnesium Oxide 400 Mg Tablet) 400 mg PO DAILY PENDING SALE TO [facility] Last Admin: 01/04/24 14:37 Dose: 400 mg Ondansetron HCl (Ondansetron Hcl 4 Mg/2 Ml Vial) 4 mg IVPUSH Q6H PRN PRN Reason: Nausea and Vomiting Sodium Chloride (0.9 % Sodium Chloride Flush 3 Ml Syringe) 3 ml IVFLUSH QSHIFT PENDING SALE TO [facility] Last Admin: 01/04/24 14:41 Dose: 3 ml Home Medications ?Medication ?Instructions ?Recorded ?Confirmed ?Last Taken ?Type duloxetine 60 mg capsule,delayed 60 mg PO DAILY 02/06/20 01/01/24 01/02/24 History release lisinopril 10 mg tablet 10 mg PO DAILY 02/06/20 01/01/24 01/02/24 History donepezil 5 mg tablet 5 mg PO BEDTIME 11/06/20 01/01/24 01/02/24 History Oxygen Home Use 01/18/22 07/06/23 Unknown History acetaminophen 500 mg tablet 650 mg PO Q6H PRN fever or pain 02/28/22 01/01/24 01/02/24 History (Tylenol Extra Strength) lorazepam 1 mg tablet 1 mg PO TID PRN Anxiety 08/03/22 01/01/24 01/02/24 History nebulizers 03/14/23 07/06/23 Unknown History atorvastatin 40 mg tablet 40 mg PO DAILY 05/15/23 01/01/24 01/02/24 History metformin 1,000 mg tablet 1,000 mg PO BID 05/15/23 01/01/24 01/02/24 History azelastine 137 mcg (0.1 %) nasal 1 spray intranasal BEDTIME PRN 10/23/23 01/01/24 01/02/24 History spray Allergies tramadol 50 mg tablet 50 mg PO TID PRN Pain (Scale Score 10/23/23 01/01/24 01/02/24 History 1-3) vitamin B complex 1 cap PO DAILY 10/23/23 01/01/24 01/02/24 History aripiprazole 15 mg tablet 15 mg PO DAILY 01/01/24 01/01/24 01/02/24 History budesonide 160 mcg-glycopyr 9 2 inh inhalation BID COPD 01/04/24 01/02/24 History mcg-formot 4.8 mcg/actuation HFA inhaler (Breztri Aerosphere) insulin aspart U-100 100 unit/mL See Rx Instructions subcut 01/04/24 01/02/24 History subcutaneous solution (Novolog USEASDIRECTD U-100 Insulin aspart) melatonin 10 mg tablet 10 mg PO BEDTIME Sleep 01/04/24 01/02/24 History nystatin 100,000 unit/mL oral 100,000 unit PO DAILY 01/04/24 01/02/24 History suspension subcutaneous insulin pump (MiniMed 01/04/24 01/04/24 Unknown History 630G Insulin Pump) vibegron 75 mg tablet (Gemtesa) 75 mg PO DAILY 01/04/24 01/02/24 History zolpidem 10 mg tablet 10 mg PO BEDTIME PRN Sleep 01/04/24 01/02/24 History Physical Exam Vital Signs: Vital Signs: Last Vital Signs Temp 99.0 F 01/04/24 11:14 Pulse 84 01/04/24 11:14 Resp 18 01/04/24 11:14 BP 127/61 01/04/24 11:14 Pulse Ox 97 01/04/24 11:14 O2 Del Method Nasal Cannula 01/04/24 11:14 O2 Flow Rate 2 01/04/24 11:14 Oxygen Flow Rate 2 01/03/24 21:21 BMI result Body Mass Index 40.0 Const: General: cooperative, healthy appearing, comfortable and no acute distress Nutritional Appearance: obese HEENT: Head: Yes normal to inspection Resp: Effort & Inspection: able to speak in complete sentences Auscultation: diminished lung sounds Cardio: Rate: regular rate Rhythm: regular rhythm GI: Inspection: Yes normal to inspection Palpation (GI): Soft to palpation and nontender Psych: Appearance: grossly normal Mental Status: mental status grossly normal Results Labs 01/04/24 05:13 01/04/24 05:13 Labs: Abnormal lab results 01/03/24 01/03/24 01/03/24 Range/Units 22:08 22:17 23:31 WBC (4.8-10.8) X10*3/uL RBC (4.20-5.50) X10*6/uL MPV (9.4-12.3) fL Immature Gran % (Auto) (0.0-0.4) % Neut % (Auto) (45-73) % Lymph % (Auto) (20-40) % Abs Immat Gran (auto) (0.00-0.03) X10*3/uL Absolute Neuts (auto) (2.0-8.3) x10*3/uL BUN (9-16) mg/dL POC Glucose 34 L* 172 H 43 L* (60-115) mg/dL Random Glucose (60-115) mg/dL Magnesium (1.6-2.6) mg/dL AST (5-31) U/L Ur Specific [place] (1.005-1.025) Urine Protein (Neg-Trace) mg/dL Urine Glucose (UA) (Negative) mg/dL Ur Leukocyte Esterase (Negative) 01/03/24 01/04/24 01/04/24 Range/Units 23:56 01:17 05:13 WBC 13.7 H 12.6 H (4.8-10.8) X10*3/uL RBC 4.11 L (4.20-5.50) X10*6/uL MPV 9.3 L 9.1 L (9.4-12.3) fL Immature Gran % (Auto) 0.5 H (0.0-0.4) % Neut % (Auto) 84.0 H 73.9 H (45-73) % Lymph % (Auto) 9.7 L (20-40) % Abs Immat Gran (auto) 0.07 H 0.05 H (0.00-0.03) X10*3/uL Absolute Neuts (auto) 11.5 H 9.3 H (2.0-8.3) x10*3/uL BUN 19 H 19 H (9-16) mg/dL POC Glucose (60-115) mg/dL Random Glucose 122 H 138 H (60-115) mg/dL Magnesium 1.5 L (1.6-2.6) mg/dL AST 35 H (5-31) U/L Ur Specific [place] >= 1.030 H (1.005-1.025) Urine Protein 100 (2+) H (Neg-Trace) mg/dL Urine Glucose (UA) 100 H (Negative) mg/dL Ur Leukocyte Esterase Trace H (Negative) 01/04/24 01/04/24 01/04/24 Range/Units 05:26 07:46 09:48 WBC (4.8-10.8) X10*3/uL RBC (4.20-5.50) X10*6/uL MPV (9.4-12.3) fL Immature Gran % (Auto) (0.0-0.4) % Neut % (Auto) (45-73) % Lymph % (Auto) (20-40) % Abs Immat Gran (auto) (0.00-0.03) X10*3/uL Absolute Neuts (auto) (2.0-8.3) x10*3/uL BUN (9-16) mg/dL POC Glucose 131 H 128 H 179 H (60-115) mg/dL Random Glucose (60-115) mg/dL Magnesium (1.6-2.6) mg/dL AST (5-31) U/L Ur Specific [place] (1.005-1.025) Urine Protein (Neg-Trace) mg/dL Urine Glucose (UA) (Negative) mg/dL Ur Leukocyte Esterase (Negative) 01/04/24 01/04/24 Range/Units 10:53 13:52 WBC (4.8-10.8) X10*3/uL RBC (4.20-5.50) X10*6/uL MPV (9.4-12.3) fL Immature Gran % (Auto) (0.0-0.4) % Neut % (Auto) (45-73) % Lymph % (Auto) (20-40) % Abs Immat Gran (auto) (0.00-0.03) X10*3/uL Absolute Neuts (auto) (2.0-8.3) x10*3/uL BUN (9-16) mg/dL POC Glucose 194 H 233 H (60-115) mg/dL Random Glucose (60-115) mg/dL Magnesium (1.6-2.6) mg/dL AST (5-31) U/L Ur Specific [place] (1.005-1.025) Urine Protein (Neg-Trace) mg/dL Urine Glucose (UA) (Negative) mg/dL Ur Leukocyte Esterase (Negative) Short CBC 01/03/24 01/04/24 Range/Units 23:56 05:13 WBC 13.7 H 12.6 H (4.8-10.8) X10*3/uL Hgb 12.7 12.4 (12.0-16.0) g/dl Hct 38.4 37.2 (37.0-47.0) % Plt Count 233 268 (160-400) X10*3/uL BMP 10/30/24 10/31/24 23:56 05:13 Sodium 143 141 Potassium 4.3 4.3 Chloride 108 104 Carbon Dioxide 25 27 BUN 19 H 19 H Creatinine 0.76 0.71 Calcium 9.4 9.7 Liver Function 01/03/24 Range/Units 23:56 Total Bilirubin 0.2 (0.0-1.0) mg/dL AST 35 H (5-31) U/L ALT 21 (0-31) U/L Alkaline Phosphatase 73 (39-117) U/L Albumin 3.7 (3.5-5.0) g/dL Urine 01/04/24 Range/Units 01:17 Urine Color Dark Yellow Urine Appearance Clear Urine pH 6.0 (5.0-9.0) Ur Specific [place] >= 1.030 H (1.005-1.025) Urine Protein 100 (2+) H (Neg-Trace) mg/dL Urine Glucose (UA) 100 H (Negative) mg/dL All other labs normal. Imaging CT scan - chest: report reviewed, image reviewed and other (1. Adjustable gastric lap band in place. Fluid distention of the proximal stomach and fluid distention of the visualized distal thoracic esophagus is present. Findings are suspicious for pouch dilatation and may predispose to aspiration. 2. Moderate diffuse calcific atherosclerosis. 3. Benign-) Assessment and Plan (1) Morbid obesity: Status: Acute Plan Patient with dilated proximal stomach in the setting of laparoscopic gastric banding done approximately 15 years ago. There is a sense of urgency to have this removed given increased risk for aspiration. Recommendation at this point would be to have her due to 30 g ready to drink protein shakes, 1 in the morning and 1 mid day over approximately 3 hours each shake. Additionally 1 small meal in the evening consisting of 4 oz of protein and 4 oz of vegetables. She was advised to eat and drink slowly, taking a longer time to eat and drink given the significant proximal dilatation. Additionally, recommendation is to have the band removed. This should be done sooner rather than later given increased risk for aspiration given dilatation of the proximal stomach. She states that she would like to follow up with us in our office. I have arranged for a follow-up appointment with Dr. Granados on 01/08/2024 at 11:00. Patient should also have cardiac risk stratification for a laparoscopic procedure to remove her gastric banding given her history of asthma/COPD/cardiomegaly and coronary artery disease. Patient would also benefit from dietary consult as she states that fruit loops and Cheerios were on the diabetic diet. She does have a membership to the [facility] and discussed the importance of exercise. She certainly may start with the use of a recumbent bike, slowly and at her pace. Case discussed with attending physician Dr. Granados. Total time managing care of this patient today: 25 minutes. Procedures Date of Service Date of Service: 01/04/24
[2024-01-04 15:43] LABS: Estimated Average Glucose 157 mg/dL; Hemoglobin A1C 171.0222 umol/L; Hemoglobin A1c % 7.1 % (<6.0); Total Hemoglobin (HGBA1C) 3142.4728 umol/L
[2024-01-04 16:53] LABS: Glucose, Whole Blood 244 mg/dL (60-115)
[2024-01-04] MEDS: Insulin Lispro 100 UNIT/ML 3 ML VIAL SUBCUT ×2 (17:27→21:01)
[2024-01-04 20:06] LABS: Glucose, Whole Blood 288 mg/dL (60-115)
[2024-01-04] MEDS: LORazepam 0.5 MG TABLET PO (22:43)
--- NOTE | 2024-01-04 23:00 | PC.RT ---
pt does not want to wear cpap tonight
[2024-01-04 23:31] LABS: Glucose, Whole Blood 197 mg/dL (60-115)
[2024-01-05] MEDS: Acetaminophen 325 MG TABLET 975 MG PO (01:34)
[2024-01-05] MEDS: traMADoL HCL 50 MG TABLET PO (03:28)
[2024-01-05 03:35] VITALS: BP 118/59; PULSE 75; RESP 16; TEMP 36.4; O2SAT 97
[2024-01-05 07:28] LABS: Glucose, Whole Blood 167 mg/dL (60-115)
[2024-01-05 07:31] VITALS: BP 131/61; PULSE 87; RESP 18; TEMP 36.1; O2SAT 100
[2024-01-05] MEDS: 0.9 % Sodium Chloride Flush 3 ML SYRINGE IVFLUSH (07:58)
[2024-01-05] MEDS: Enoxaparin Sodium 40 MG/0.4 ML SYRINGE SUBCUT (07:59)
[2024-01-05] MEDS: Magnesium Oxide 400 MG TABLET PO (07:59)
--- NOTE | 2024-01-05 08:06 | PC.NURSE ---
Waiting for patients MUSEUM EDUCATOR to bring in her MED List from Home.
--- NOTE | 2024-01-05 10:53 | MHC.CM.PN ---
Per MD rounds patient medically cleared for dc home w/ resumption of [facility] services. Will also reinstate services with [facility] for SN. Patient's [facility] will provide transport home. RN aware.
[2024-01-05 11:43] LABS: Glucose, Whole Blood 248 mg/dL (60-115)
[2024-01-05] MEDS: Nystatin Powder 15 GM BOTTLE 1 APPL TOPICAL (11:43)
[2024-01-05] MEDS: Insulin Lispro 100 UNIT/ML 3 ML VIAL SUBCUT (11:43)
--- NOTE | 2024-01-05 11:43 | P.DS_ITS ---
DS: Providers Provider Date of Service: 01/05/24 Date of admission: 01/04/24 03:48 Date of discharge: 01/05/24 Primary care physician: Rito Olivas MD Consults: 01/04/24 08:19 Consult to General Surgery Routine Consulting Provider: [facility] Reason for consultation: Stomach and distal esophagus dilatation/?pouch dilatation. 01/04/24 10:18 Consult to Bariatric Surgery Routine Consulting Provider: Davy Thomson Reason for consultation: Gastric band-question gastric pauch Has provider been notified: No Attending physician on discharge: Chente Ham Discharging clinician: Chente Ham DS: Diagnosis Discharge Diagnosis (1) Morbid obesity: Status: Acute DS: Summary Hospital Course Hospital Course: HPI: 73 years old woman with past medical history significant for type 2 diabetes mellitus on insulin pump, CASSANDRA/OHS noncompliant with BiPAP, chronic respiratory failure, asthma/COPD overlap syndrome, essential hypertension, hyperlipidemia and VTE on Xarelto presents to the emergency department after she developed multiple episodes of vomiting yesterday around 4 pm followed by hypoglycemia of 30. She reported some abdominal discomfort and dizziness. Did not report diarrhea, fever or chills. Denied loss of consciousness. Her granddaughter who was at bedside commented the the patient does not really know how to manage her insulin i pump. Patient did not report alcohol abuse, tobacco smoking or illicit drug use. Patient's insulin infusion was removed. In the ED, she was found to have hypothermia of 93.9. The rest of the vital signs are normal. She is on 2 L/min supplemental oxygen via nasal cannula. Blood workup showed leukocytosis of 13.7. There is no lactic acidosis. Hemog lobin and platelets are normal. There are no significant electrolyte imbalances. BUN is 19 and creatinine 0.76. LFTs are basically normal except for minimal elevation of AST, 35. Albumin and troponins are normal. Urinalysis is not consistent with UTI. Viral testing for COVID-19, influenza and RSV is negative. CXR is negative. Abdominal pelvis CT scan with IV contrast showed adjustable gastric lap band in place, distention of the proximal stomach and distal thoracic esophagus, suspicious for pouch dilatation. ED tx: Zofran 4 mg IV, Reglan 10 mg IV, D10 IV. Hospital course: Patient was admitted for hypoglycemia-in the setting of insulin pump and nausea vomiting: Insulin pump was stopped, hemoglobin A1c checked was 7.1, patient was given D5 IV fluids-subsequently fingersticks improved 140-200 range. Discussed with patient endocrinology office: Recommended to cutdown Lantus to 4 units(use if fingersticks persistently above 180 range), patient was also advised for diabetic diet, If fingersticks are persistently elevated above 180s(premeal) may need to start back aspart lower dose starting 2 units outpatient. Nausea vomiting symptoms seem responded well with conservative measure IV fluid and antiemetics. Patient CT abdomen also shows possible distal esophageal dilation/pouch dilation: Consulted bariatric surgery patient is to follow-up out patiently with bariatric surgery for further management including band removal. Currently patient is tolerating diet, fingersticks improved as above. plan: dm : insulin as adjusted .Lantus to 4 units(use if fingersticks persistently above 180 range), patient was also advised for diabetic diet, If fingersticks are persistently elevated above 180s(premeal) may need to start back aspart lower dose starting 2 units outpatient. their endocrinology plan outpatient appointment. follow up bariatric surgery for further management including band removal. Assessment and plan coordination time spent 40 minute. Time Attestation Total time managing care of this patient today: 40 mintues. Discharge Coordination Time (in mins): 40 min Quality: Safe Use of Opioids Does Pt have an Active Cancer Diagnosis on the Problem List?: No Quality: Stroke Does the patient have a stroke diagnosis?: No Physical Exam Vital Signs: Vital Signs: Last Vital Signs Temp 96.9 F 01/05/24 07:31 Pulse 87 01/05/24 07:31 Resp 18 01/05/24 07:31 BP 131/61 01/05/24 07:31 Pulse Ox 100 01/05/24 07:31 O2 Del Method Nasal Cannula 01/05/24 07:31 O2 Flow Rate 2.0 01/05/24 07:31 Oxygen Flow Rate 2 01/03/24 21:21 BMI result Body Mass Index 40.0 Appearance: Alert.? Oriented X3.? cvs: rrr, [id number] . res: clear to auscultation ,no rhonchii or wheezing abd: no rebound or guarding ,nt, bs present. ext pulses present , no cyanosis. neuro: axo3 , nonfocal. DS: Data Data Completed and Pending Completed studies during hospitalization [Text1]: Procedures Assistance with Respiratory Ventilation, Less than 24 Consecutive Hours, Continuous Positive Airway Pressure (10/23/23) Labs on day of discharge: Laboratory Results - last 24 hr 01/04/24 01/04/24 01/04/24 05:16 13:52 16:48 POC Glucose 233 H 244 H Estimat Average Glucose 157 Hemoglobin A1c % 7.1 H 01/04/24 01/04/24 01/05/24 19:16 23:24 07:07 POC Glucose 288 H 197 H 167 H Estimat Average Glucose Hemoglobin A1c % Preliminary micro results at discharge 01/04/24 04:28 Blood Culture - Preliminary Blood - Venous No growth after 24 hours. 01/04/24 03:48 Blood Culture - Preliminary Blood - Venous No growth after 24 hours. Imaging Chest x-ray: Radiologist's impression: ITS Impressions Chest X-Ray 01/03/24 21:32 IMPRESSION: Unremarkable examination. Electronically signed by: Lamberto Gutierrez MD 01/03/2024 11:03 PM EDT RP Abdomen/Pelvis CT 01/04/24 02:02 IMPRESSION: 1. Adjustable gastric lap band in place. Fluid distention of the proximal stomach and fluid distention of the visualized distal thoracic esophagus is present. Findings are suspicious for pouch dilatation and may predispose to aspiration. 2. Moderate diffuse calcific atherosclerosis. 3. Benign-appearing densely calcified 3 cm lesion within the left breast. This result with regards to the gastric findings was discussed with Dr. Karime HUGHES by telephone at 01/04/2024 3:37 AM EDT and it was ascertained that the content and urgency of the report was understood at the time of direct communication. Electronically signed by: Oziel Irby MD 01/04/2024 03:37 AM EDT RP Discharge Plan Discharge Anticipated Discharge Date/Time: 01/05/24 11:26 Patient Disposition: Home Health Service Discharge Diagnosis: dm2 , gastric banding Referrals: Heather NORIEGA [Outside] - 3-5 Days (Heather NORIEGA will call you to schedule nursing visits) Rito Olivas MD [Primary Care Provider] - 1 Week Discharge Medications: Continued (DME) diabetic shoes See Rx Instructions .ROUTE .MEDSUPPLY Qty: 1 0RF Rx Instructions: extra depth orthopedic shoes ( 1 pair ) with customize heat molded multi density inner soles ( 3 pair) Dispense 1 Sig: As directed DX: And IDDM /polyneuropathy ( E11 0.42 ); hammertoe foot deformity ( M 20.41, and 20.42 ) pre ulcerative skin lesion ( L 85.1 ) Diagnosis ( E11 0.42 ) type 2 diabetes with polyneuropathy (DME) Dexcom G7 Production Supv Misc See Rx Instructions .Route Qty: 1 0RF Rx Instructions: As directed (DME) Dexcom G6 Transmitter Device See Rx Instructions .ROUTE .COMPLEX Qty: 1 0RF Dose Instruction: USE DIRECTED Rx Instructions: USE DIRECTED albuterol sulfate 2.5 mg /3 mL (0.083 %) solution for nebulization 2.5 mg inhalation Q4-6H PRN (Reason: for wheezing) Qty: 180 0RF (DME) pen needle, diabetic [BD Ultra-Fine Short Pen Needle] 31 gauge x 5/16 needle See Rx Instructions .ROUTE .COMPLEX Qty: 100 4RF Dose Instruction: DIRECTED TO INJECT FOUR TIMES DAILY Rx Instructions: DIRECTED TO INJECT FOUR TIMES DAILY gabapentin 300 mg capsule 300 mg PO BEDTIME 30 Days Qty: 30 11RF montelukast 10 mg tablet 10 mg PO DAILY 90 Days Qty: 90 3RF albuterol sulfate 90 mcg/actuation HFA aerosol inhaler 2 puff PO QID PRN (Reason: shortness of breath or wheezing) 90 Days Qty: 3 3RF (DME) Ketostix Strip See Rx Instructions .Route Qty: 50 2RF Rx Instructions: prn tid glucose over 250, illness, nausea, vomiting (DME) FreeStyle Lite Strips Strip See Rx Instructions .Route Qty: 100 4RF Rx Instructions: qid prn to confirm sensor readings or for failed sensor (DME) Dexcom G7 Sensor Device See Rx Instructions .ROUTE .COMPLEX Qty: 3 0RF Dose Instruction: APPLY DIRECTED AND CHANGE EVERY 10 DAYS (BULK) Rx Instructions: APPLY DIRECTED AND CHANGE EVERY 10 DAYS (BULK) insulin glargine [Lantus Solostar U-100 Insulin] 100 unit/mL (3 mL) insulin pen 4 unit subcut DAILY PRN (Reason: glucose trending ovr 180) (DME) walker Misc See Rx Instructions .ROUTE .MEDSUPPLY Qty: 1 0RF Rx Instructions: As directed acetaminophen [Tylenol Extra Strength] 500 mg tablet 650 mg PO Q6H PRN (Reason: fever or pain) tramadol 50 mg tablet 50 mg PO QID PRN (Reason: Pain (Scale Score 1-3)) azelastine 137 mcg (0.1 %) [place],Non-Aerosol 1 spray INTRANASAL BEDTIME PRN (Reason: Allergies) Rx Instructions: administer into each nostril vitamin B complex Capsule 1 cap PO DAILY zolpidem 10 mg tablet 10 mg PO BEDTIME PRN (Reason: Insomnia) melatonin 10 mg Tablet 10 mg PO BEDTIME PRN (Reason: Insomnia) Gemtesa 75 mg tablet 75 mg PO DAILY Breztri Aerosphere 160-9-4.8 mcg/actuation HFA aerosol inhaler 2 inh inhalation BID (DME) MiniMed 630G Insulin Pump Misc MISCELLANEOUS fluconazole 100 mg tablet 100 mg PO DAILY Rx Instructions: X5 days lorazepam 0.5 mg tablet 0.5 mg PO TID PRN (Reason: Anxiety) buspirone 30 mg Tablet 30 mg PO BID nystatin [Nystop] 100,000 unit/gram powder 1 appl topical BID-TID PRN (Reason: Rash) fluticasone propionate 50 mcg/actuation [place],Suspension 2 spray INTRANASAL DAILY Rx Instructions: administer into each nostril buspirone 15 mg tablet 15 mg PO BID aripiprazole 2 mg tablet 2 mg PO DAILY lidocaine [Lidoderm] 5 % adhesive patch,medicated 1 patch topical DAILY PRN (Reason: Pain) Rx Instructions: leave on most painful area for up to 12 hrs nystatin 100,000 unit/mL suspension 1 ml PO BID duloxetine 60 mg capsule,delayed release(DR/EC) 60 mg PO DAILY lisinopril 10 mg tablet 10 mg PO DAILY donepezil 5 mg tablet 5 mg PO BEDTIME (DME) Oxygen Home Use Kit See Rx Instructions .Route Rx Instructions: As directed (DME) nebulizers [facility] See Rx Instructions .Route Rx Instructions: As directed (DME) blood-glucose meter [FreeStyle Lite Meter] Kit See Rx Instructions .Route Qty: 1 0RF Rx Instructions: As directed (DME) lancets [FreeStyle Lancets] 28 gauge misc See Rx Instructions .Route Qty: 100 4RF Rx Instructions: As directed checks 4 times a day (DME) pen needle, diabetic [BD Verenice 2nd Gen Pen Needle] 32 gauge x 5/32 needle See Rx Instructions .ROUTE .MEDSUPPLY Qty: 100 6RF Rx Instructions: As directed qid prn pump failure aripiprazole 15 mg tablet 15 mg PO DAILY metformin 1,000 mg tablet 1,000 mg PO BID atorvastatin 40 mg tablet 40 mg PO DAILY Discontinued insulin aspart U-100 [Novolog FlexPen U-100 Insulin] 100 unit/mL (3 mL) insulin pen 2 unit subcut QIDACHS Discharge Orders: Discharge Order (Routine); Ordered 01/05/24 Ordered By: Chente Ham Diet: Advance to usual diet Activity on Discharge: As tolerated Stand Alone Forms: Patient Portal Discharge page Print Language: Congolese Care Plan Goals: Patient was admitted for hypoglycemia-in the setting of insulin pump and nausea vomiting: Insulin pump was stopped, hemoglobin A1c checked was 7.1, patient was given D5 IV fluids-subsequently fingersticks improved 140-200 range. Discussed with patient endocrinology office: Recommended to cutdown Lantus to 4 units(use if fingersticks persistently above 180 range), patient was also advised for diabetic diet, If fingersticks are persistently elevated above 180s(premeal) may need to start back aspart lower dose starting 2 units outpatient. Nausea vomiting symptoms seem responded well with conservative measure IV fluid and antiemetics. Patient CT abdomen also shows possible distal esophageal dilation/pouch dilation: Consulted bariatric surgery patient is to follow-up out patiently with bariatric surgery for further management including band removal. Health Concerns: As above. Plan of Treatment: As above. Assessment: As above.
[2024-01-05] MEDS: Clotrimazole 1 % Cream 15 GM TUBE 1 APPL TOPICAL (11:44)
--- NOTE | 2024-01-05 11:53 | W.MHC.F2F ---
Service Date Service Date: 01/05/24 Encounter Date of encounter: 01/05/24 Encounter: nausea /vomiting , hypoglycemia Reasons for Services Signs and symptoms assessed: nausea , vomiting Reason for [facility]: diabetic teaching, monitoring of unstable blood sugar, medication management, medication treatment and teach disease management MD Overseeing Care: Rito Olivas Homebound: Leaving the home is medically contraindicated at this time without the asist of a device and/or another person due th the listed conditions above and below. Reason homebound: weakness related to hospital stay Homebound supporting statement: Patient had multiple comorbidities including diabetes and also hypoglycemia as well as nausea vomiting, need help go to appointments,disease management. Certification: Based on the above findings, I certify that this patient is confined to the home and needs intermittent [facility] care, physical therapy and/or speech therapy, or continues to need occupational therapy. The patient is under my care, and I have initiated the establishment of the plan of care. The patient will be followed by a physician who will periodically review the plan of care. Time Spent With Patient Time: Total time managing care of this patient today ____ minutes.
== END 2024-01-05 13:21 | disposition home health service (06) | DRG 638 ==
LOC: HO.ED 01-04 01:59 → HO.EDOVER 01-04 04:03 → HO.IMC 01-04 07:11 → HO.S3 01-04 14:52
PROVIDERS: Admitting Provider Internal Medicine; Emergency Provider Student in an Organized Health Care Education/Training Program; PCP Internal Medicine; Visit Provider Internal Medicine
DX: E11.649 Type 2 diabetes mellitus with hypoglycemia without coma (principal); E66.2 Morbid (severe) obesity with alveolar hypoventilation; Z68.41 Body mass index [BMI] 40.0-44.9, adult; R68.0 Hypothermia, not associated with low environmental temperature; I10 Essential (primary) hypertension; E83.42 Hypomagnesemia; Z20.822 Contact with and (suspected) exposure to COVID-19; Z86.718 Personal history of other venous thrombosis and embolism; Z91.199 Patient's noncompliance with other medical treatment and regimen due to unspecified reason; Z86.711 Personal history of pulmonary embolism; Z87.891 Personal history of nicotine dependence; Z96.41 Presence of insulin pump (external) (internal); Z98.84 Bariatric surgery status; Z79.4 Long term (current) use of insulin; Z79.51 Long term (current) use of inhaled steroids; Z79.84 Long term (current) use of oral hypoglycemic drugs; Z79.899 Other long term (current) drug therapy
CPT/HCPCS: 0241U; 36415; 71045; 74177; 80048; 80053; 81001; 82947; 83036; 83605; 83690; 83735; 84100; 84443; 84484; 85025; 87040; 93005; 99285; J1650; J2405; J2765; J3475; Q9967

== ENCOUNTER → 2024-01-03 21:32 | Outpatient (BNV) | payer OTHER, SELFPAY | PROVIDERS: Admitting Provider Internal Medicine; Emergency Provider Student in an Organized Health Care Education/Training Program; PCP Internal Medicine; Visit Provider Internal Medicine | DX: I45.10 Unspecified right bundle-branch block (principal) | CPT/HCPCS: 93010 ==

== ENCOUNTER → 2024-01-04 03:48 | Outpatient (BNV) | payer OTHER, SELFPAY | PROVIDERS: Admitting Provider Internal Medicine; Emergency Provider Student in an Organized Health Care Education/Training Program; PCP Internal Medicine; Visit Provider Physician Assistant Surgical | DX: E11.649 Type 2 diabetes mellitus with hypoglycemia without coma (principal); E66.01 Morbid (severe) obesity due to excess calories; R11.2 Nausea with vomiting, unspecified; T68.XXXA Hypothermia, initial encounter | CPT/HCPCS: 99223 ==

== ENCOUNTER → 2024-01-04 03:48 | Outpatient (BNV) | payer OTHER, SELFPAY | PROVIDERS: Admitting Provider Internal Medicine; Emergency Provider Student in an Organized Health Care Education/Training Program; Visit Provider Internal Medicine | DX: E11.649 Type 2 diabetes mellitus with hypoglycemia without coma (principal); E66.01 Morbid (severe) obesity due to excess calories | CPT/HCPCS: 99223; 99239; 99499; G0180 ==

== ENCOUNTER 2024-01-07 | Outpatient (REF) | payer OTHER, SELFPAY | END 2024-01-07 00:01 | disposition home or self-care (01) | LOC: CF | PROVIDERS: PCP Internal Medicine; Visit Provider Dietitian, Registered | DX: E11.9 Type 2 diabetes mellitus without complications (principal) | CPT/HCPCS: 97803 ==

== ENCOUNTER 2024-01-08 08:17 | Outpatient (AMB) | payer OTHER, SELFPAY ==
--- NOTE | 2024-01-08 11:36 | MHC.OFFVISWM ---
Intake Visit Reasons: TV Gastric Band Removal? *SEE COMMENTS* Allergies aspirin [ASPIRIN] Allergy (Intermediate, Verified 01/08/24 11:39) GI UPSET, stomach pain latex [LATEX] Allergy (Intermediate, Verified 01/08/24 11:39) HIVES Medication List - Last Reconciled 01/08/24 by Nick Granados MD acetaminophen (Tylenol Extra Strength) 650 mg PO Q6H PRN acetone (urine) test (Ketostix strips) prn tid glucose over 250, illness, nausea, vomiting albuterol sulfate 90 mcg/actuation 2 puffs PO QID PRN 90 days albuterol sulfate 2.5 mg (3 mL) inhalation Q4-6H PRN aripiprazole 15 mg PO DAILY atorvastatin 40 mg PO DAILY azelastine 1 spray intranasal BEDTIME PRN blood sugar diagnostic (FreeStyle Lite Strips) qid prn to confirm sensor readings or for failed sensor blood-glucose meter (FreeStyle Lite Meter kit) As directed blood-glucose meter,continuous ([employer] G7 Library Services Assistant) As directed blood-glucose sensor ([employer]Netcom G7 Sensor device) APPLY DIRECTED AND CHANGE EVERY 10 DAYS (BULK) blood-glucose transmitter (Tripvi G6 Transmitter device) USE DIRECTED [id number] 160-9-4.8 mcg/actuation (Breztri Aerosphere) 2 inhalations inhalation BID buspirone 30 mg PO BID [diabetic shoes extra depth orthopedic shoes ( 1 pair ) with customize heat molded multi density inner soles ( 3 pair) Dispense 1 Sig: As directed DX: And IDDM /polyneuropathy ( E11 0.42 ); hammertoe foot deformity ( M 20.41, and 20.42 ) pre ulcerative skin lesion ( L 85.1 ) Diagnosis ( E11 0.42 ) type 2 diabetes with polyneuropathy] donepezil 5 mg PO BEDTIME duloxetine 60 mg PO DAILY fluticasone propionate 50 mcg/actuation 2 sprays intranasal DAILY gabapentin 300 mg PO BEDTIME 30 days insulin glargine (Lantus Solostar U-100 Insulin) 4 units subcut DAILY PRN lancets (FreeStyle Lancets) As directed checks 4 times a day lidocaine 5% (Lidoderm) 1 patch topical DAILY PRN lisinopril 10 mg PO DAILY lorazepam 0.5 mg PO TID PRN melatonin 10 mg PO BEDTIME PRN metformin 1,000 mg PO BID montelukast 10 mg PO DAILY 90 days nebulizers As directed nystatin (Nystop) 1 appl topical BID-TID PRN nystatin 1 mL PO BID Oxygen Home Use As directed pen needle, diabetic (BD Verenice 2nd Gen Pen Needle) As directed qid prn pump failure pen needle, diabetic (BD Ultra-Fine Short Pen Needle) DIRECTED TO INJECT FOUR TIMES DAILY subcutaneous insulin pump (MiniMed 630G Insulin Pump) tramadol 50 mg PO QID PRN vibegron (Gemtesa) 75 mg PO DAILY vitamin B complex 1 cap PO DAILY walker As directed zolpidem 10 mg PO BEDTIME PRN HPI HPI TV Gastric Band Removal? *SEE COMMENTS*: Details: Start time: 11.23pm, End time: 12.23pm ?I spent 45 minutes speaking with the patient on the phone plus an additional 15 minutes reviewing and updating records for a total of 60 minutes HPI Comments Details: Was referred by the Hopsitalist service for vomiting. The patient has a history of lap band placement by Dr. Duvall about 15 years ago. The patient does report frequent episodes of vomiting and GERD. In addition, she was recently admitted in October with aspiration pneumonia. Reviewed: CT abd/pelvis 12/27: esophageal and prox stomach dilation. Possible band prolapse CT chest 10/27: no esophageal dilation, LLL pneumonia EGD: 02/24: No band erosion EK/24: RBBB Holter: 08/26: RBBB Echo: 05/25: EF: 65-70%, severe LVH and mitral annular calcification PFTs: 11/26: severe restriction, no obstruction SS 07/26: normal PFSH Medical History (Updated 01/08/24 @ 12:16 by Nick Granados MD) GERD (gastroesophageal reflux disease) Morbid obesity CASSANDRA (obstructive sleep apnea) Hypoglycemia associated with type 2 diabetes mellitus COPD exacerbation C. difficile enteritis COVID-19 DVT (deep venous thrombosis) Pulmonary hypertension Pulmonary emboli Acute on chronic respiratory failure with hypoxia and hypercapnia Chronic respiratory failure [place] (hard of hearing) PONV (postoperative nausea and vomiting) Post herpetic neuralgia Pneumonia Back pain Chest crackles Cardiomegaly Asthma-COPD overlap syndrome Acute respiratory failure Hyperlipidemia Hypertension Diabetes Arnold-Chiari malformation Arthritis Fibromyalgia Cough CASSANDRA treated with BiPAP Asthma Sinusitis Surgical History Hx of eye surgery History of esophagogastroduodenoscopy (EGD) H/O colonoscopy Hx of laparoscopic gastric banding H/O bilateral breast reduction surgery H/O brain surgery Family History Mother HTN (hypertension) Breast cancer Father Primary cancer of bone marrow Social History Household Members: Family Household Members Other:: granddaughter Housing: Apartment Are you a primary body care manager to a significant other at home: No Do you presently have visiting nurse or other home services: Yes ([employer] MANAGER) Unable to assess alcohol history related to: Unable to respond Alcohol intake: never Patient Tobacco Use Status: Former Tobacco user Tobacco use type: Cigarette Years Smoked: 15 +/- e-Cigarette/Vaping Use: Never Used Second Hand Smoke Exposure: No Advance Directives Date on File: 11/11/21 service: No Telehealth Telehealth Telehealth Platform: Telephone Location of provider rendering services: practice address Location of patient: address on file Patient Identification confirmed using: Name, : Yes Telehealth method: voice only Patient verbally consented to treatment: Yes Patient verbally consented to billing insurance company: Yes Patient informed of any privacy concerns related to visit: Yes Minutes spent on Phone/Video with Pt.: 60 Assessment & Plan Assessment & Plan (1) Gastric band malfunction: Code(s): K95.09 - Other complications of gastric band procedure Category: Medical Plan: 1. The band has to be removed laparoscopically as it is the cause of the vomiting and esophageal dilation. Additionally it put her on a high risk of pulmonary aspiration and given her history of severe COPD, it could be life threatening. However prior to that we need to clarify the following: a) does she need to be on Xarelto for VTE history? We will get the previous records from her admission to see the recommendations b) does she have CASSANDRA requiring CPAP? Last SS was normal but she claims she had another this year that I could not find in the system and several notes state that she does c) Will request a cardiac clearance from Dr. Longoria. Does she need a stress test as she has an abnormal EKG and severe LVH at last Echo in 2021? d) Will request for pulmonary clearance by Dr. Benson given her severe O2 dependent COPD and clarify whether she needs a CPAP prior to the lap band removal surgery The plan was discussed with the patient and she is in agreement with the plan Medications: New pantoprazole 40 mg PO DAILY 90 tabs 0RF K21.9 - Gastro-esophageal reflux disease without esophagitis sucralfate 10 mL PO BID 600 mL 3RF K21.9 - Gastro-esophageal reflux disease without esophagitis, K95.09 - Other complications of gastric band procedure
== END 2024-01-08 12:23 | disposition home or self-care (01) ==
LOC: HO.HBS 08:17
PROVIDERS: PCP Internal Medicine; Visit Provider Surgery
DX: K95.09 Other complications of gastric band procedure (principal)
CPT/HCPCS: 99443

== ENCOUNTER → 2024-01-08 08:17 | Outpatient (BNVA) | payer OTHER, SELFPAY | PROVIDERS: PCP Internal Medicine; Visit Provider Surgery ==

== ENCOUNTER 2024-01-10 14:09 | Outpatient (AMB) | payer OTHER, SELFPAY ==
--- NOTE | 2024-01-10 12:41 | A.OFFVIS_ITS ---
Vital Signs 01/10/24 14:10 Height 5 ft Weight 200 lb 9.93 oz BMI 39.2 BP 128/72 Blood Pressure Location Rt brachial Position Sitting Pulse 76 Pulse Source Pulse Oximeter Intake Visit Reasons: T2DM/CONFIRMED Intake Note: Patient presents today for a follow-up on Type 2 Diabetes Mellitus: Last Diabetic eye exam was on: a year ago Last Podiatry exam was on: Does not see a Bunch Maker Hand Most recent HbA1c: 8.0%, 12/13/2023 Random Glucose- 140 mg/dL, Today Field Technical Support Consultant Required: No Accompanied by: TERRITORY SALES EXECUTIVE Allergies aspirin [ASPIRIN] Allergy (Intermediate, Verified 01/08/24 11:39) GI UPSET, stomach pain latex [LATEX] Allergy (Intermediate, Verified 01/08/24 11:39) HIVES Medication List - Last Reconciled 01/10/24 by Lanny Garnica NP acetaminophen (Tylenol Extra Strength) 650 mg PO Q6H PRN acetone (urine) test (Ketostix strips) prn tid glucose over 250, illness, nausea, vomiting albuterol sulfate 90 mcg/actuation 2 puffs PO QID PRN 90 days albuterol sulfate 2.5 mg (3 mL) inhalation Q4-6H PRN aripiprazole 15 mg PO DAILY atorvastatin 40 mg PO DAILY azelastine 1 spray intranasal BEDTIME PRN blood sugar diagnostic (FreeStyle Lite Strips) qid prn to confirm sensor readings or for failed sensor blood-glucose meter (FreeStyle Lite Meter kit) As directed blood-glucose meter,continuous (Dexcom G7 Automobile Body Customizer) As directed blood-glucose sensor (Dexcom G7 Sensor device) APPLY DIRECTED AND CHANGE EVERY 10 DAYS (BULK) blood-glucose transmitter (Dexcom G6 Transmitter device) USE DIRECTED [id number] 160-9-4.8 mcg/actuation (Breztri Aerosphere) 2 inhalations inhalation BID buspirone 30 mg PO BID [diabetic shoes extra depth orthopedic shoes ( 1 pair ) with customize heat molded multi density inner soles ( 3 pair) Dispense 1 Sig: As directed DX: And IDDM /polyneuropathy ( E11 0.42 ); hammertoe foot deformity ( M 20.41, and 20.42 ) pre ulcerative skin lesion ( L 85.1 ) Diagnosis ( E11 0.42 ) type 2 diabetes with polyneuropathy] donepezil 5 mg PO BEDTIME duloxetine 60 mg PO DAILY fluticasone propionate 50 mcg/actuation 2 sprays intranasal DAILY gabapentin 300 mg PO BEDTIME 30 days glucagon 3 mg/actuation (Baqsimi) 3 mg intranasal ONCE PRN 30 days MDD may repeat in 15 min insulin aspart U-100 (Novolog U-100 Insulin aspart) 80-150 2 units 151-200 4units 201-250 6 units 250-300 8 units over 300 units subcutaneously use as directed; insulin glargine 12 units (0.12 mL) subcut QPM 30 days lancets (FreeStyle Lancets) As directed checks 4 times a day lidocaine 5% (Lidoderm) 1 patch topical DAILY PRN lisinopril 10 mg PO DAILY lorazepam 0.5 mg PO TID PRN melatonin 10 mg PO BEDTIME PRN metformin 1,000 mg PO BID montelukast 10 mg PO DAILY 90 days nebulizers As directed nystatin (Nystop) 1 appl topical BID-TID PRN nystatin 1 mL PO BID Oxygen Home Use As directed pantoprazole 40 mg PO DAILY pen needle, diabetic (BD Verenice 2nd Gen Pen Needle) As directed qid prn pump failure pen needle, diabetic (BD Ultra-Fine Short Pen Needle) DIRECTED TO INJECT FOUR TIMES DAILY sucralfate 10 mL PO BID tirzepatide (Mounjaro) 2.5 mg (0.5 mL) subcut QWEEK 4 weeks tramadol 50 mg PO QID PRN vibegron (Gemtesa) 75 mg PO DAILY vitamin B complex 1 cap PO DAILY walker As directed zolpidem 10 mg PO BEDTIME PRN HPI Comments Details: 73 year old who is seen in f/u for type 2 diabetes. She was last seen by myself 12/11/23. She was started on an islet insulin pump and had been doing well with excepton of a low glucose earlier in the year during the first week of pump therapy. She had a hypoglycemic episode to 40 associated with nausea, vomiting and hypothermia 01/05/24 and insulin pump was discontinued in the hospital and she was placed on Lantus 4 units which she has been taking bid. Has issue with lap bandwhich will be removed. Initially diagnosed with T2DM in >10 yrs . Saw allyson before Dr. Lyons at [facility] Was initially started on treatment with metformin.Stopped because couldn't swallow th epills Current regime: Lantus 4 units has been taking twice daily since leaving hospital Mojaro 2.5 mg Qwkly she stopped this in the hospital and hasn't taken Has been testing 4 times daily via finger stick glucose am: 160's lunch 250's supper 250's back up insulin plan prior to going off pump Lantus 8 units Novolog 8-18 scale starting with 150-200 2 units and increase 2 units for 50 mg/DL She is interested in CeQUr Treats lows with eats sugar . Checks sugar after to ensure it is rising. Treats according to rule of 15's. Has a glucagon rescue kit at home . Family history of T2DM in maternal grandmother, cousins , aunt, sister . Has eyes checked yearly, last eye exam 07/27 Has retinopathy. Has neuropathy, does not see podiatry Denies nephropathy, on OSITO/ARB 01/04/2024 eGFR>60 08/27/2022 microalbumin 11.0 Has HLD, on statin. Last LDL 77 2022 Denies CAD. Has seen Lissy [facility] Medical History GERD (gastroesophageal reflux disease) Morbid obesity CASSANDRA (obstructive sleep apnea) Hypoglycemia associated with type 2 diabetes mellitus COPD exacerbation C. difficile enteritis COVID-19 DVT (deep venous thrombosis) Pulmonary hypertension Pulmonary emboli Acute on chronic respiratory failure with hypoxia and hypercapnia Chronic respiratory failure [place] (hard of hearing) PONV (postoperative nausea and vomiting) Post herpetic neuralgia Pneumonia Back pain Chest crackles Cardiomegaly Asthma-COPD overlap syndrome Acute respiratory failure Hyperlipidemia Hypertension Diabetes Arnold-Chiari malformation Arthritis Fibromyalgia Cough CASSANDRA treated with BiPAP Asthma Sinusitis Surgical History Hx of eye surgery History of esophagogastroduodenoscopy (EGD) H/O colonoscopy Hx of laparoscopic gastric banding H/O bilateral breast reduction surgery H/O brain surgery Family History Mother HTN (hypertension) Breast cancer Father Primary cancer of bone marrow Social History Household Members: Family Household Members Other:: granddaughter Housing: Apartment Are you a primary urgent care to a significant other at home: No Do you presently have visiting nurse or other home services: Yes (TERRITORY SALES EXECUTIVE) Unable to assess alcohol history related to: Unable to respond Alcohol intake: never Patient Tobacco Use Status: Former Tobacco user Tobacco use type: Cigarette Years Smoked: 15 +/- e-Cigarette/Vaping Use: Never Used Second Hand Smoke Exposure: No Advance Directives Date on File: 11/11/21 service: No Physical Exam Vital Signs: Last Vital Signs Pulse 76 01/10/24 14:10 BP 128/72 01/10/24 14:10 BMI result Body Mass Index 39.2 Const Other: Absence of Cushingoid features. Absence of acromegalic features. Neck exam reveals nl size thyroid about 15 gms. No thyroid nodules palpable. No carotid bruits present. Lungs CTA. Heart S1 S2, Reg R/R. No M/R G. Skin exam reveals absence of vitiligo or acanthosis nigricans. No edema Visual exam of foot performed. No ulcerations or open lesions. No inter digit maceration or fissuring. No onychomycosis, no callouses. Sensation intact to monofilament exam. Vibratory sensation is normal with 128 Hz tuning fork. slight diminished pulse Results Reviewed Results Reviewed: Laboratory Last Values Glucose (Clinic) 140 mg/dL (60-115) H 01/10/24 14:13 Assessment & Plan Assessment & Plan (1) Diabetes: Code(s): E11.9 - Type 2 diabetes mellitus without complications Category: Medical Plan: 73-year-old type 2 diabetic with neuropathy who was previously on a beta bionics islet pump. She had 1 low to 40 when she was initiating the pump in the spring and had none since until last week. She had a glucose of 40 and was treated in the hospital. I would not recommend that this patient continue on the islet pump and her DME will be contacted. She will contact [employer] to have moira placed on her phone so that she can continue to use sensor. Patient's insulin new dosing: Lantus 12 units Novolog 80-150 2 units 151-200 4 units 201-250 6 units 251-300 8 units Over 300 10 units Mounjaro 2.5mg weekly Sent prescription for nasal spray glucagon The patient had an opportunity to ask questions regarding treatment plan. The patient expressed understanding and agreement with the above treatment plan. The patient is aware they should contact our office by phone for worsening glucose readings or for any low blood sugars which may warrant a change in diabetes medication. Compliance is encouraged with medications and any followup testing/consults which may have been ordered. Will see if patient needs bolus insulin. If she does, will start her on CeQur. I will contact patient in several days to determine if she is needing the pre meal insulin and if yes, can send script for CeQur. Patient had a normal PRASHANT however pulse slight diminished will confirm with arterial duplex (2) Peripheral Vascular Disease: Code(s): I73.9 - Peripheral vascular disease, unspecified Plan: r/o check duplex Orders: Orders US arterial duplex LE BI 1 Week I73.9 - Peripheral vascular disease, unspecified Medications: New glucagon 3 mg/actuation (Baqsimi) 3 mg intranasal ONCE PRN 2 ea 1RF unresponsive hypoglycemia 30 days MDD may repeat in 15 min insulin glargine 12 units (0.12 mL) subcut QPM 6 mL 3RF 30 days tirzepatide (Mounjaro) 2.5 mg (0.5 mL) subcut QWEEK 2 mL 6RF 4 weeks Patient Instructions: The patient was counseled to always carry a source of sugar and on the rule of 15's: Take 3 glucose tablets and repeat again in 15 minutes if blood sugar is not in normal range. Continue to repeat every 15 minutes until blood sugar is normal. Wear closed toe shoes, never walk barefooted and inspect the feet daily. For any signs of infection or open wound patient you should notify your PCP or go to urgent care/ER. Coding Level of Care Code Est Pt Level 4 (01830) Complex EM visit Add On G2211 Diagnoses Diabetes E11.9 Peripheral Vascular Disease I73.9
[2024-01-10 14:10] VITALS: BP 128/72; PULSE 76; BMI 39.2
[2024-01-10 14:22] LABS: Glucose, Whole Blood 140 mg/dL (60-115)
== END 2024-01-10 14:41 | disposition home or self-care (01) ==
LOC: HO.ENCR 14:09
PROVIDERS: PCP Internal Medicine; Visit Provider Nurse Practitioner Adult Health
DX: E11.9 Type 2 diabetes mellitus without complications (principal); I73.9 Peripheral vascular disease, unspecified
CPT/HCPCS: 99214; G2211

== ENCOUNTER → 2024-01-10 14:09 | Outpatient (BNVA) | payer OTHER, SELFPAY | PROVIDERS: PCP Internal Medicine; Visit Provider Nurse Practitioner Adult Health | DX: E11.51 Type 2 diabetes mellitus with diabetic peripheral angiopathy without gangrene (principal); Z79.4 Long term (current) use of insulin; Z79.899 Other long term (current) drug therapy | CPT/HCPCS: 82947; 99212 ==

== ENCOUNTER 2024-01-18 11:01 | Outpatient (AMB) | payer OTHER, SELFPAY ==
--- NOTE | 2024-01-18 05:31 | A.OFFVIS_ITS ---
Vital Signs 01/18/24 11:11 Height 5 ft Weight 198 lb 6.656 oz BMI 38.7 BP 112/62 Blood Pressure Location Rt brachial Position Sitting Pulse 100 Pulse Source Pulse Oximeter Intake Visit Reasons: T2DM/CONF Intake Note: Patient presents today for a follow-up on Type 2 Diabetes Mellitus: Last Diabetic eye exam was on: a year ago Last Podiatry exam was on: Does not see a Sewage Disposal Worker Most recent HbA1c: 8.0%, 12/13/2023 Random Glucose- 197 mg/dL, Today Metal Wire Technician Required: No Accompanied by: BUILDING AND CONSTRUCTION MANAGER Allergies aspirin [ASPIRIN] Allergy (Intermediate, Verified 01/18/24 11:19) GI UPSET, stomach pain latex [LATEX] Allergy (Intermediate, Verified 01/18/24 11:19) HIVES HPI Comments Details: 73 year old who is seen in f/u for type 2 diabetes. She was last seen by myself 12/13/23. She was started on an islet insulin pump and had been doing well with excepton of a low glucose earlier in the year during the first week of pump therapy. She had a hypoglycemic episode to 40 associated with nausea, vomiting and hypothermia 01/05/24 and insulin pump was discontinued in the hospital and she was placed on Lantus insulin. She has acid reflux which has not increased since starting Mounjaro Has issue with lap band which will be removed. Initially diagnosed with T2DM in >10 yrs . Saw allyson before Dr. Lyons at [facility] Was initially started on treatment with metformin.Stopped because couldn't swallow the pills Current regime: Lantus 12 units Novolog 80-150 2 units 151-200 4 units 201-250 6 units 251-300 8 units Over 300 10 units Mounjaro 2.5mg weekly Metformin 1000 mg twice daily She will be going back on her Dexcom sensor has been fingerstick in twice per day morning readings 130-190 later in the day 130 to 200 with the occasional reading in the 300 Treats lows with eats sugar . Checks sugar after to ensure it is rising. Treats according to rule of 15's. Has a glucagon rescue kit at home . Family history of T2DM in maternal grandmother, cousins , aunt, sister . Has Retinopathy: Has eyes checked yearly, last eye exam 07/27 Has neuropathy, does not see podiatry. Symptoms include: Numbness and tingling. Patient is on gabapentin Denies nephropathy, on OSITO/ARB 01/04/2024 eGFR>60 08/27/2022 microalbumin 11.0 Has HLD, on statin. Last LDL 77 2022 Denies CAD. Has seen Lissy HAAS [facility] Medical History GERD (gastroesophageal reflux disease) Morbid obesity CASSANDRA (obstructive sleep apnea) Hypoglycemia associated with type 2 diabetes mellitus COPD exacerbation C. difficile enteritis COVID-19 DVT (deep venous thrombosis) Pulmonary hypertension Pulmonary emboli Acute on chronic respiratory failure with hypoxia and hypercapnia Chronic respiratory failure [place] (hard of hearing) PONV (postoperative nausea and vomiting) Post herpetic neuralgia Pneumonia Back pain Chest crackles Cardiomegaly Asthma-COPD overlap syndrome Acute respiratory failure Hyperlipidemia Hypertension Diabetes Arnold-Chiari malformation Arthritis Fibromyalgia Cough CASSANDRA treated with BiPAP Asthma Sinusitis Surgical History Hx of eye surgery History of esophagogastroduodenoscopy (EGD) H/O colonoscopy Hx of laparoscopic gastric banding H/O bilateral breast reduction surgery H/O brain surgery Family History Mother HTN (hypertension) Breast cancer Father Primary cancer of bone marrow Social History Household Members: Family Household Members Other:: granddaughter Housing: Apartment Are you a primary care navigator to a significant other at home: No Do you presently have visiting nurse or other home services: Yes (BUILDING AND CONSTRUCTION MANAGER) Unable to assess alcohol history related to: Unable to respond Alcohol intake: never Patient Tobacco Use Status: Former Tobacco user Tobacco use type: Cigarette Years Smoked: 15 +/- e-Cigarette/Vaping Use: Never Used Second Hand Smoke Exposure: No Advance Directives Date on File: 11/11/21 service: No Physical Exam Vital Signs: Last Vital Signs Pulse 100 01/18/24 11:11 BP 112/62 01/18/24 11:11 BMI result Body Mass Index 38.7 Const Other: Absence of Cushingoid features. Absence of acromegalic features. Neck exam reveals nl size thyroid about 15 gms. No thyroid nodules palpable. No carotid bruits present. Lungs CTA. Heart S1 S2, Reg R/R. No M/R G. Skin exam reveals absence of vitiligo or acanthosis nigricans. No edema Visual exam of foot performed. No ulcerations or open lesions. No inter digit maceration or fissuring. No onychomycosis, no callouses. Sensation intact to monofilament exam. Vibratory sensation is normal with 128 Hz tuning fork. pulse slight diminished Results Reviewed Results Reviewed: Laboratory Last Values Glucose (Clinic) 197 mg/dL (60-115) H 01/18/24 11:14 Assessment & Plan Assessment & Plan (1) Diabetes: Code(s): E11.9 - Type 2 diabetes mellitus without complications Category: Medical Plan: 73-year-old type 2 diabetic with neuropathy and nephropathy who was recently discontinued from an islet insulin pump due to severe low to 40 requiring ER intervention. She is now on metformin, Mounjaro and basal bolus insulin. She has had no additional low. I will send been a prescription for CeQur insulin patch pump. At this time would not recommend going back on the islet pump. The patient had an opportunity to ask questions regarding treatment plan. The patient expressed understanding and agreement with the above treatment plan. The patient is aware they should contact our office by phone for worsening glucose readings or for any low blood sugars which may warrant a change in diabetes medication. Compliance is encouraged with medications and any followup testing/consults which may have been ordered. Medications: New diabetic supplies, miscellan. (CeQur Simplicity Station Usher) As directed for use with ceQUR 1 ea 1RF E11.9 - Type 2 diabetes mellitus without complications bolus insulin pump, 200 unit (CeQur Simplicity) As directed every 4 days 8 ea 11RF E11.9 E11.9 - Type 2 diabetes mellitus without complications diabetic supplies, miscellan. (CeQur Simplicity Station Usher) As directed for use with cequr insulin patch 1 ea 1RF bolus insulin pump, 200 unit (CeQur Simplicity) As directed every 4 days 8 ea 11RF E11.9 - Type 2 diabetes mellitus without complications Changed From tirzepatide (Mounjaro) 2.5 mg (0.5 mL) subcut QWEEK 4 weeks 2 mL 6RF To tirzepatide (Mounjaro) 5 mg subcut QWEEK 4 weeks 4 mL 6RF From pen needle, diabetic (BD Verenice 2nd Gen Pen Needle) As directed qid prn pump failure 100 ea 6RF To pen needle, diabetic (BD Verenice 2nd Gen Pen Needle) qid 100 ea 6RF From insulin aspart U-100 (Novolog U-100 Insulin aspart) 80-150 2 units 1 click 151-200 4units 2 click 201-250 6 units 3 click 251-300 8 units 4 clicks over 300 10 units 5 clicks subcutaneously use as directed; To insulin aspart U-100 (Novolog U-100 Insulin aspart) 80-150 2 units 1 click 151-200 4units 2 click 201-250 6 units 3 click 251-300 8 units 4 clicks over 300 10 units 5 clicks subcutaneously use as directed; twice daily before breakfast and supper 30 days 10 mL 3RF Discontinued blood-glucose transmitter (Dexcom G6 Transmitter device) Discontinued Reason: Doctor's Order USE DIRECTED 1 ea 0RF Patient Instructions: The patient was counseled to always carry a source of sugar and on the rule of 15's: Take 3 glucose tablets and repeat again in 15 minutes if blood sugar is not in normal range. Continue to repeat every 15 minutes until blood sugar is normal. The patient was counseled to achieve a target A1C of 7% (154 avg). Fasting blood sugars should be 90-130 in the morning and less than 180 two hours after meals. Reviewed the relationship between poor diabetic control and the development of complications. Check your feet daily looking for any signs of infection, ulceration and seek medical attention if this occurs. Break in shoes gradually and do not wear open-toed shoes or walk barefooted. Coding Level of Care Code Est Pt Level 4 (69642) Complex EM visit Add On G2211 Diagnoses Diabetes E11.9
[2024-01-18 11:11] VITALS: BP 112/62; PULSE 100; BMI 38.7
[2024-01-18 11:22] LABS: Glucose, Whole Blood 197 mg/dL (60-115)
== END 2024-01-18 14:00 | disposition home or self-care (01) ==
PROVIDERS: PCP Family Medicine; Visit Provider Nurse Practitioner Adult Health
DX: E11.9 Type 2 diabetes mellitus without complications (principal)
CPT/HCPCS: 99214; G2211

== ENCOUNTER 2024-01-18 15:00 | Outpatient (REF) | payer OTHER, SELFPAY ==
--- NOTE | ~2024-01-18 | MM_ITS ---
EXAMINATION: MM SCREENING DIGITAL BREAST TOMOSYNTHESIS, BILATERAL CLINICAL INFORMATION: Screening. Asymptomatic. COMPARISON: Mammography: Comparison is made with available priors TECHNIQUE: Digital breast mammography with tomosynthesis is performed in both the craniocaudal and mediolateral oblique views along with computer-aided detection (CAD). FINDINGS: There are scattered areas of fibroglandular density (ACR BI-RADS breast composition Category b). Bilateral reduction mammoplasty. There are no significant masses, abnormal calcifications, or other abnormalities. MM/MM tomosynthesis screening BI IMPRESSION: No mammographic evidence of malignancy. ASSESSMENT: BI-RADS BI-RADS 2 - Benign Findings RECOMMENDATION: Routine annual mammography screening. 1 year F/U This examination should not preclude the clinical evaluation of a suspicious palpable abnormality. This patient's information was entered into a reminder system with a target due date for their next mammogram. Electronically signed by: Doris Zamudio DO 01/26/2024 12:47 PM [facility]
== END 2024-01-18 15:01 | disposition home or self-care (01) ==
LOC: HO.MAMMO 15:00
PROVIDERS: PCP Nurse Practitioner Adult Health; Visit Provider Internal Medicine
DX: Z12.31 Encounter for screening mammogram for malignant neoplasm of breast (principal)
CPT/HCPCS: 77063; 77067; 82947; 99212

== ENCOUNTER → 2024-01-18 15:00 | Outpatient (BNV) | payer OTHER, SELFPAY | PROVIDERS: PCP Nurse Practitioner Adult Health; Visit Provider Internal Medicine | DX: Z12.31 Encounter for screening mammogram for malignant neoplasm of breast (principal) | CPT/HCPCS: 77063; 77067 ==

== ENCOUNTER → 2024-02-07 12:18 | Outpatient (BNVA) | payer OTHER, SELFPAY | PROVIDERS: PCP Internal Medicine; Visit Provider Nurse Practitioner Adult Health | DX: E11.9 Type 2 diabetes mellitus without complications (principal); Z79.84 Long term (current) use of oral hypoglycemic drugs; Z79.4 Long term (current) use of insulin | CPT/HCPCS: 82947; 99212 ==

== ENCOUNTER → 2024-02-07 12:18 | Outpatient (AMB) | payer OTHER, SELFPAY ==
--- NOTE | 2024-02-07 08:15 | A.OFFVIS_ITS ---
Vital Signs 02/07/24 12:35 Height 5 ft Weight 196 lb 3.382 oz BMI 38.3 BP 120/68 Blood Pressure Location Rt brachial Position Sitting Pulse 96 Pulse Source Pulse Oximeter Intake Visit Reasons: DM Intake Note: Patient presents today for a follow-up on Type 2 Diabetes Mellitus: Last Diabetic eye exam was on: a year ago Last Podiatry exam was on: Does not see a [employer] Most recent HbA1c: 8.0%, 12/13/2023 Random Glucose- 182 mg/dL, Today Voice Writing Reporter Required: No Accompanied by: WEIGHT AND TEST BAR CLERK Allergies aspirin [ASPIRIN] Allergy (Intermediate, Verified 01/18/24 11:19) GI UPSET, stomach pain latex [LATEX] Allergy (Intermediate, Verified 01/18/24 11:19) HIVES HPI Comments Details: 73 year old who is seen in f/u for type 2 diabetes. She was last seen by myself 12/13/23. She was started on an islet insulin pump earlier in the year and had been doing well with exception of a low glucose during the first week of pump therapy. She had a hypoglycemic episode to 40 associated with nausea, vomiting and hypothermia 01/05/24 and insulin pump was discontinued in the hospital and she was placed on Lantus insulin and a decision was made to keep her off pump therapy. She has acid reflux which has not increased since starting Mounjaro Has issue with lap band which will be removed. Initially diagnosed with T2DM in >10 yrs . Saw allyson before Dr. Lyons at [facility] Was initially started on treatment with metformin.Stopped because couldn't swallow the pills Current regime: Lantus 12 units Novolog 80-150 2 units 151-200 4 units 201-250 6 units 251-300 8 units Over 300 10 units Mounjaro 2.5mg weekly Metformin 1000 mg twice daily She has not been using dexcom g7 as she didn't realize she could use it without the pump. She has been testin her glucose 3 times daily with an average of 144. She had one low of 56 in the morning. Treats lows with eats sugar. Checks sugar after to ensure it is rising. Treats according to rule of 15's. Has a glucagon rescue kit at home . Family history of T2DM in maternal grandmother, cousins , aunt, sister . Has Retinopathy: Has eyes checked yearly, last eye exam 07/27 Has neuropathy, does not see podiatry. Symptoms include: Numbness and tingling. Patient is on gabapentin Denies nephropathy, on OSITO/ARB 01/04/2024 eGFR>60 08/27/2022 microalbumin 11.0 Has HLD, on statin. Last LDL 77 2022 Denies CAD. Has seen Lissy Mackey CDE [facility] Medical History GERD (gastroesophageal reflux disease) Morbid obesity CASSANDRA (obstructive sleep apnea) Hypoglycemia associated with type 2 diabetes mellitus COPD exacerbation C. difficile enteritis COVID-19 DVT (deep venous thrombosis) Pulmonary hypertension Pulmonary emboli Acute on chronic respiratory failure with hypoxia and hypercapnia Chronic respiratory failure [place] (hard of hearing) PONV (postoperative nausea and vomiting) Post herpetic neuralgia Pneumonia Back pain Chest crackles Cardiomegaly Asthma-COPD overlap syndrome Acute respiratory failure Hyperlipidemia Hypertension Diabetes Arnold-Chiari malformation Arthritis Fibromyalgia Cough CASSANDRA treated with BiPAP Asthma Sinusitis Surgical History Hx of eye surgery History of esophagogastroduodenoscopy (EGD) H/O colonoscopy Hx of laparoscopic gastric banding H/O bilateral breast reduction surgery H/O brain surgery Family History Mother HTN (hypertension) Breast cancer Father Primary cancer of bone marrow Social History Household Members: Family Household Members Other:: granddaughter Housing: Apartment Are you a primary mall plant caretaker to a significant other at home: No Do you presently have visiting nurse or other home services: Yes (WEIGHT AND TEST BAR CLERK) Unable to assess alcohol history related to: Unable to respond Alcohol intake: never Patient Tobacco Use Status: Former Tobacco user Tobacco use type: Cigarette Years Smoked: 15 +/- e-Cigarette/Vaping Use: Never Used Second Hand Smoke Exposure: No Advance Directives Date on File: 11/11/21 service: No Physical Exam Vital Signs: Last Vital Signs Pulse 96 02/07/24 12:35 BP 120/68 02/07/24 12:35 BMI result Body Mass Index 38.3 Const Other: Absence of Cushingoid features. Absence of acromegalic features. Neck exam reveals nl size thyroid about 15 gms. No thyroid nodules palpable. Heart S1 S2, Reg R/R. No M/R G. Skin exam reveals absence of vitiligo or acanthosis nigri cans. 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 Will lower insulin: Lantus 8 units Novolog 100-150 2 units 151-200 4 units over 200 6 units Mounjaro 2.5mg weekly Metformin 1000 mg twice daily She will have medical laboratory scientist install [employer] and [employer] moira The patient had an opportunity to ask questions regarding treatment plan. The patient expressed understanding and agreement with the above treatment plan. The patient is aware they should contact our office by phone for worsening glucose readings or for any low blood sugars which may warrant a change in diabe fabiano medication. Compliance is encouraged with medications and any followup testing/consults which may have been ordered. Medications: Changed From insulin aspart U-100 (Novolog U-100 Insulin aspart) 80-150 2 units 1 click 151-200 4units 2 click 201-250 6 units 3 click 251-300 8 units 4 clicks over 300 10 units 5 clicks subcutaneously use as directed; twice daily before breakfast and supper 30 days 10 mL 3RF To insulin aspart U-100 (Novolog U-100 Insulin aspart) 100-150 2 units, 1 click CeQUr, 151-200 4 units 2 clicks on Cequr over 200 6 units twice daily with breakfast and supper 30 days 10 mL 3RF Patient Instructions: The patient was counseled to achieve a target A1C of 7% (154 avg). Fasting blood sugars should be 90-130 in the morning and less than 180 two hours after meals. Reviewed the relationship between poor diabetic control and the development of complications. Check your feet daily looking for any signs of infection, ulceration and seek medical attention if this occurs. Break in shoes gradually and do not wear open-toed shoes or walk barefooted. The patient was counseled to always carry a source of sugar and on the rule of 15's: Take 3 glucose tablets and repeat again in 15 minutes if blood sugar is not in normal range. Continue to repeat every 15 minutes until blood sugar is normal. Coding Level of Care Code Est Pt Level 4 (68860) Complex EM visit Add On G2211 Diagnoses Diabetes E11.9 Diabetes mellitus type: type 2 Diabetes mellitus clam dredge boat captain insulin use: with usp use Diabetes mellitus complication status: with hypoglycemia Time Spent (min) 30 Comment Time spent reviewing labs/provider notes, face to face, chart doc
[2024-02-07 12:35] VITALS: BP 120/68; PULSE 96; BMI 38.3
[2024-02-07 12:47] LABS: Glucose, Whole Blood 182 mg/dL (60-115)
== END ==
PROVIDERS: PCP Internal Medicine; Visit Provider Nurse Practitioner Adult Health
DX: E11.9 Type 2 diabetes mellitus without complications (principal)
CPT/HCPCS: 99214; G2211

== ENCOUNTER 2024-02-12 14:50 | Outpatient (AMB) | payer OTHER, SELFPAY ==
[2024-02-12 14:52] VITALS: BP 122/77; PULSE 94; O2SAT 96; BMI 37.9
--- NOTE | 2024-02-12 14:52 | MHC.OFFVIS ---
Vital Signs 02/12/24 14:52 Height 5 ft Weight 194 lb BMI 37.9 BP 122/77 Blood Pressure Location Lt brachial Position Sitting Pulse 94 Pulse Source Doppler Pulse Oximetry (%) 96 Oxygen Delivery Method Room Air Intake Visit Reasons: Lap Band Removal Allergies aspirin [ASPIRIN] Allergy (Intermediate, Verified 02/12/24 14:56) GI UPSET, stomach pain latex [LATEX] Allergy (Intermediate, Verified 02/12/24 14:56) HIVES HPI Comments Details: Pleasant 73-year-old female who is here for follow-up. She has history of asthma COPD overlap syndrome, obstructive sleep apnea, hypertension and hyperlipidemia. She was seen a year ago when she presented after getting a CT scan of her chest for lung assessment which showed concern for cardiomegaly. She has advanced COPD and is supposed to be on oxygen at nighttime and with ambulation. She was complaining of some tachycardia at that time. She also complained that her saturations at times were in 80s and she had to use supplemental oxygen to bring it up. We performed an echocardiogram in May 2021 which showed vigorous LV function with EF of 60-70% without any regional wall motion abnormalities. Normal right ventricular size and function. Right ventricular systolic pressure could not be calculated. In June 2022 she got admitted to [facility] with shortness of breath and lower extremity swelling. She was diagnosed with DVT with occlusive thrombus more than 5 cm in length within the paired left peroneal veins. ECHO and CT scan reports were reviewed. Again her RV systolic pressure could not be determined. She had normal biventricular function. She had CT scan of the chest which did not show any central PE but could not rule out subsegmental PE. She was treated as if she had pulmonary emboli and has been on Xarelto since then. She was advised that she should continue it for 3 months. She is returning for follow-up after the hospital admission. She has been taking Xarelto regularly and has no bleeding concerns. She is doing better and is denying any significant chest pain or shortness of breath. She does have palpitations at nighttime which are quite consistent. No palpitations during the daytime. 09/01/2022 the patient is here for a pulmonary follow-up visit. Overall the patient has been doing little better. She is getting stronger and respiratory status is overall better. Yesterday she did get cortisone shot to her back and hands and pain discomfort. She is wondering about a portable oxygen concentrator. We will have to do a 6 minute walk test to see if she qualifies for the conserving device. She cannot do it right now. Wants to hold off till next time. In the meantime the patient did get her noninvasive ventilator for her respiratory failure. Unfortunately it has been hard for her to tolerate it. She did bring it in. I did titrate the pressure is down to see if she can tolerate it easier decreasing both the minimum pressure support and a minimum expiratory pressure. She seemed to tolerate it better. She also has noticed that when she lays flat her oxygen pulse ox decreases at home. Therefore she can increase her oxygen to 3 L while using the noninvasive ventilator will plan to perform an overnight oximetry while on the settings to make sure that she is getting adequate support and further adjustments. I did reach out to Sarah to see if they can further adjust her machine when she is situated. She continue with the current therapy. Also continues with diuresis tolerated. She will continue with the current respiratory diabetes. We will follow up between 4-6 weeks. 10/20/2022 the patient is here for pulmonary follow-up visit. Overall the patient is doing better from a respiratory status. She continues use the oxygen with good effect. She did get the noninvasive ventilator. She has had some difficulty tolerating the therapy. She is trying to use it during the daytime and also at nighttime. I did emphasize to her the importance of it specially since her CO2 is already elevated this will help improve her gas exchange and decreased hospitalizations. The patient is aware she is going to try to use it more often. She continues use her respiratory therapy with good effect. She is also using the oxygen with good effect. In the recent imaging studies of blood work to review. Her major issue is significant neuropathy and muscle weakness. I do believe that she will benefit from pulmonary rehabilitation specially if she continues to lose muscle mass she is going to be at risk for worsening respiratory failure. Therefore I am going to have her undergo PFTs and start pulmonary rehab. In addition to that she will have a neurology evaluation. 03/14/2023 the patient is here for a pulmonary follow-up visit. Overall the patient has been doing overall little better. She does continue to use the oxygen with good effect. She has a hard time with the oxygen tanks. We did try to do a walking oximetry to see if she would qualify for portable oxygen concentrator but she could not tolerate it due to significant heart rate elevations. Therefore will continue with current oxygen supplementation. In addition to that the patient was not able to use the noninvasive ventilator and she returned it. Therefore she continues to sleep with the oxygen when this is good. At least her last blood gas was some reassuring. The patient has been having hard time tolerating the Trelegy inhaler. She still has some Symbicort although she does not find that very helpful. Therefore, will go ahead and switch over to breztri. in addition to that, the patient been complaining of thrush. I do not see any on examination. I will send some nystatin mouthwash that she can use to try to prevent further thrush. We can also consider an inhaler without a cortical steroid. She is also developing some chest congestion. Therefore will treat her for that. She is status post COVID likely I postviral lower respiratory infection is starting. 04/27/2023 the patient is here for a sick visit. She has been having worsening respiratory symptoms cough chest tightness and wheezing for about 7 days. She went to an urgent Care was given doxycycline. The patient is not feeling better. Having significant coughing bouts. Moderate severity. Denies any fevers or chills. Also on arrival today her oxygen was on the lower side 91%. It did improve. During the last visit the patient could not perform walking oximetry. she will return in 3 weeks will try to do a 6 minute walk test at that time. In the meantime will go ahead and treat her with a prednisone taper. The patient will also start a 2nd antibiotic. If she has no better she will get an x-ray. 07/06/2023 the patient is here for a pulmonary follow-up visit. Overall she has feeling a lot better. She is responding well to the oxygen supplementation. She does have a portable oxygen concentrator that she uses during the daytime with activity and at rest. In addition to that she does use her oxygen at nighttime via the concentrator. The patient is planning a trip [place]. I did recommend she can call her [employer] in order to get a concentrator available for her oxygen needs. Patient continues use her respiratory therapy with good effect. the patient unfortunately was not able tolerate the noninvasive ventilator. Will go ahead and request a repeat blood gas and chest x-ray at this time. She has not been using her Breztri inhaler because she does not like the after taste. She has been using her albuterol couple times a day. I did provide her with a spacer that she ca n use with her Breztri in order to minimize the adverse taste. I did recommend the patient start taking the inhaler twice a day. She does cough a lot at nighttime. I do believe that the use of the inhaler prior to going to bed will be helpful. In addition to that will prescribe her benzonates. 11/23/2023 The patient is here for a pulmonary follow up visit. Back in October she was admited to the hospital with oneumonia. She had a CT chest whic I personally reviewd with bilateral pneumonia, suspicious for an atypical pneumonia. Then, she returned with hypoglycemia. Now she is better. Still with dyspnea on exertion and cough, mild in severity. At baseline. She has been using the oxygen with good response. Though, having daytime drowsiness and an elevated EPWORTH 11/24. She did have have a CPAP before. She then was placed on an NIV, but she could not tolerate it. I will request a repeat in lab PSG at this time. She continues to take her respiratory medicines with good effect. 02/12/2024 the patient is here for pulmonary follow-up visit. The patient overall has been doing well. Respiratory status has been stable. She is still having daytime drowsiness with an elevated [place] score 11/24. She is still waiting for sleep study. Hopefully she gets it soon we can always add an addendum to get her on PAP therapy if she needs to go back on PAP therapy. In the meantime she continues use the oxygen with good effect. She mainly uses it with activity and sleep. The patient also is working closely with bariatric surgery. She is going to undergo the removal of the gastric band and likely undergo gastric sleeve surgery. I do believe that does a very good option for her. [facility] Medical History GERD (gastroesophageal reflux disease) Morbid obesity CASSANDRA (obstructive sleep apnea) Hypoglycemia associated with type 2 diabetes mellitus COPD exacerbation C. difficile enteritis COVID-19 DVT (deep venous thrombosis) Pulmonary hypertension Pulmonary emboli Acute on chronic respiratory failure with hypoxia and hypercapnia Chronic respiratory failure [place] (hard of hearing) PONV (postoperative nausea and vomiting) Post herpetic neuralgia Pneumonia Back pain Chest crackles Cardiomegaly Asthma-COPD overlap syndrome Acute respiratory failure Hyperlipidemia Hypertension Diabetes Arnold-Chiari malformation Arthritis Fibromyalgia Cough CASSANDRA treated with BiPAP Asthma Sinusitis Surgical History Hx of eye surgery History of esophagogastroduodenoscopy (EGD) H/O colonoscopy Hx of laparoscopic gastric banding H/O bilateral breast reduction surgery H/O brain surgery Family History Mother HTN (hypertension) Breast cancer Father Primary cancer of bone marrow Social History Household Members: Family Household Members Other:: granddaughter Housing: Apartment Are you a primary home health care worker to a significant other at home: No Do you presently have visiting nurse or other home services: Yes (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 PICKING 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 TENDER) Unable to assess alcohol history related to: Unable to respond Alcohol intake: never Patient Tobacco Use Status: Former Tobacco user Tobacco use type: Cigarette Years Smoked: 15 +/- e-Cigarette/Vaping Use: Never Used Second Hand Smoke Exposure: No Advance Directives Date on File: 11/11/21 service: No Review of Systems Const Reports daytime sleepiness, Reports snoring, Reports stops breathing during sleep and Reports weight loss Eyes Reports loss of vision ENT Reports dizziness, Reports hearing loss, Reports nasal congestion and Reports nasal discharge Card Reports leg edema, Reports lightheadedness, Reports palpitations, Reports dyspnea on exertion and Reports orthopnea Resp Reports cough, Denies hemoptysis, Reports dyspnea on exertion, Reports snoring and Reports wheezing GI Reports heartburn and Reports vomiting Musc Reports abnormal gait, Reports atrophy, Reports arthralgias, Reports muscle weakness, Reports numbness and Denies other (Frequent falls) Skin/Breast Reports nail changes and Reports rash Neuro Reports Abnormal speech present, Reports abnormal gait, Reports dizziness, Reports loss of vision and Reports numbness Endo Reports palpitations Aller/Immun Reports wheezing Physical Exam Vital Signs: Last Vital Signs Pulse 94 02/12/24 14:52 BP 122/77 02/12/24 14:52 Pulse Ox 96 02/12/24 14:52 Oxygen Delivery Method Room Air 02/12/24 14:52 BMI result Body Mass Index 37.9 Const General: comfortable and alert Limitations: wheelchair Neck Neck: Yes normal visual inspection, Yes full ROM and Yes no lymphadenopathy Chest Chest palpation & inspection: normal inspection of the chest Resp Effort & Inspection: normal respiratory effort Auscultation: diminished lung sounds Cardio Rate: regular rate Rhythm: regular rhythm Heart sounds: S1 normal heart sound present and S2 normal heart sound present GI Palpation (GI): Soft to palpation Auscultation: normal bowel sounds Skin General skin exam: rashes and/or lesions noted Neuro Speech: Abnormal speech present Extrem General: Yes no clubbing, cyanosis or edema Assessment & Plan Assessment & Plan (1) Asthma-COPD overlap syndrome: Code(s): J44.9 - Chronic obstructive pulmonary disease, unspecified Category: Medical (2) Pulmonary emboli: Code(s): I26.99 - Other pulmonary embolism without acute cor pulmonale Category: Medical Qualifiers: Pulmonary embolism type: multiple subsegmental (without acute cor pulmonale) Qualified Code(s): I26.94 - Multiple subsegmental pulmonary emboli without acute cor pulmonale (3) Pulmonary hypertension: Code(s): I27.20 - Pulmonary hypertension, unspecified Category: Medical (4) DVT (deep venous thrombosis): Code(s): I82.409 - Acute embolism and thrombosis of unspecified deep veins of unspecified lower extremity Category: Medical Qualifiers: Affected thrombotic vein of extremity: unspecified vein of extremity Chronicity: unspecified DVT location: lower extremity Laterality: unspecified laterality Qualified Code(s): I82.409 - Acute embolism and thrombosis of unspecified deep veins of unspecified lower extremity (5) Chronic respiratory failure: Code(s): J96.10 - Chronic respiratory failure, unspecified whether with hypoxia or hypercapnia Category: Medical Qualifiers: Respiratory failure complication: hypoxia and hypercapnia Qualified Code(s): J96.11 - Chronic respiratory failure with hypoxia; J96.12 - Chronic respiratory failure with hypercapnia (6) Chronic restrictive lung disease: Code(s): J98.4 - Other disorders of lung Category: Medical (7) CASSANDRA (obstructive sleep apnea): Code(s): G47.33 - Obstructive sleep apnea (adult) (pediatric) Category: Medical Plan continue Oxygen 2-L/pulse with activity. POC with activity for better portability and ease. continue Breztri will try the spacer to minimize after taste nebulizer 1-2 day MISBAH as needed Fluticasone nasal spray stopped Non invasive ventilator, Astral in lab PSG to reassess for PAP therapy pending Continue respiratory therapy F/U 3-4 months Coding Level of Care Code Est Pt Level 4 (84194) Complex EM visit Add On G2211 Diagnoses Asthma-COPD overlap syndrome J44.9 Multiple subsegmental pulmonary emboli without acute cor pulmonale I26.94 Pulmonary embolism type: multiple subsegmental (without acute cor pulmonale) Pulmonary hypertension I27.20 Deep vein thrombosis (DVT) of lower extremity, unspecified chronicity, unspecified laterality, unspecified vein I82.409 Affected thrombotic vein of extremity: unspecified vein of extremity Chronicity: unspecified DVT location: lower extremity Laterality: unspecified laterality Chronic respiratory failure with hypoxia and hypercapnia J96.11; J96.12 Respiratory failure complication: hypoxia and hypercapnia Chronic restrictive lung disease J98.4 CASSANDRA (obstructive sleep apnea) G47.33 Time Spent (min) 17
== END 2024-02-12 15:23 | disposition home or self-care (01) ==
PROVIDERS: PCP Internal Medicine; Visit Provider Hospitalist
DX: J44.9 Chronic obstructive pulmonary disease, unspecified (principal); I26.94 Multiple subsegmental thrombotic pulmonary emboli without acute cor pulmonale; I27.20 Pulmonary hypertension, unspecified; I82.409 Acute embolism and thrombosis of unspecified deep veins of unspecified lower extremity; J96.11 Chronic respiratory failure with hypoxia; J96.12 Chronic respiratory failure with hypercapnia; J98.4 Other disorders of lung; G47.33 Obstructive sleep apnea (adult) (pediatric)
CPT/HCPCS: 99214; G2211

== ENCOUNTER → 2024-02-12 14:50 | Outpatient (BNVA) | payer OTHER, SELFPAY | PROVIDERS: PCP Internal Medicine; Visit Provider Hospitalist | DX: J44.89 Other specified chronic obstructive pulmonary disease (principal); J96.11 Chronic respiratory failure with hypoxia; J98.4 Other disorders of lung; I26.99 Other pulmonary embolism without acute cor pulmonale; I27.20 Pulmonary hypertension, unspecified; I82.452 Acute embolism and thrombosis of left peroneal vein; G47.33 Obstructive sleep apnea (adult) (pediatric); I10 Essential (primary) hypertension; E78.5 Hyperlipidemia, unspecified | CPT/HCPCS: 99212 ==

== ENCOUNTER → 2024-02-15 11:08 | Outpatient (REF) | payer OTHER, SELFPAY ==
--- NOTE | 2024-02-15 11:11 | CA_ITS ---
Transthoracic Echocardiogram Patient (Last, First, Middle): Madeleine Ledezma, Gender: Female Date of : 1950 Age: 73 Procedure Date: 02/15/2024 Procedure Type: Transthoracic Echocardiogram Location: OP Height: 152. cm Weight: 88. kg BSA: 1.84 m2 Heart Rate: 72 bpm BP: 130 / 70 mmHg Facility Examiner: SAMARIA Hemphlil MD: Олег Longoria MD Paper Goods Machine Operator: Eliseo Segura MD Symptoms: I27.20 - Pulmonary hypertension, unspecified Study Quality: Fair/Unable to get IV ECG Rhythm: Sinus Conclusions: - 1. Normal LV ejection fraction of 60 65% with mild LVH with impaired relaxation filling pattern 2. Calcific mitral valve changes noted with mean gradient of 6 mm Hg with suggestive of at least moderate mitral stenosis 3. Mild aortic stenosis 4. RV systolic pressure was not calculated on this study Findings Left Ventricle Normal left ventricular size and systolic function. There is mildly increased left ventricular wall thickness. The visually estimated ejection fraction is between 60-65%. Spectral Doppler is indicative of an impaired relaxation filling pattern. Right Ventricle Normal right ventricular cavity size and systolic function. Atria The left atrium is likely dilated. Interatrial shunt cannot be excluded. The right atrium was not well visualized. Aortic Valve The aortic valve was not well visualized. There is mild calcification of the aortic valve. There is mild aortic valve stenosis. There is no aortic valve regurgitation. Mitral Valve There is moderate anterior mitral leaflet thickening. There is severe mitral annular calcification. There is trace mitral valve regurgitation. There is moderate mitral valve stenosis. Pulmonic Valve The pulmonic valve was not well visualized. Tricuspid Valve Likely normal tricuspid valve structure and function. Tricuspid regurgitation envelope is inadequate for calculation of right ventricular systolic pressure. Normal right atrial pressure. Great Vessels All visible segments of the aorta are normal in size. The pulmonary artery was not well visualized. There is no dilatation of the ascending aorta measuring 3.00 cm. Venous The inferior vena cava is normal in size. Pericardium/Pleural The pericardium was not well visualized. Prior Study Comparison Changes noted compared to prior study dated: 05/13/2021. That is suggestive of at least moderate mitral stenosis, consider MARIA DOLORES and/or exercise echocardiogram to see if this is significant Measurements 2D Linear Measurements IVSd: 1.23 0.6-0.9/0.6-1.0 cm LVIDd: 4.22 3.9-5.3/4.2-5.9 cm LVIDd Index: 2.29 2.4-3.2/2.2-3.1 cm/m2 LVIDs: 2.10 2.0-3.6 cm LVPWd: 1.16 0.7-1.1 cm LA Diam: 3.70 2.7-3.8/3.0-4.0 cm LAIDs Index: 2.01 1.5-2.3 cm/m2 LV Mass: 222.20 67-162/88-224 g LV Mass Index: 120.76 43-95/49-115 g/m2 LVOT Diam: 2.00 3.0+(-)1.3 cm 2D Systolic Function EF 4C: 62.00 >55% EF 2C: 61.10 >55% EF BiP: 61.80 >55% Mitral Valve MV VTI: 0.49 MV Pk Tone: 1.79 MV Mn Tone: 1.08 MV Pk Grad: 13.00 MV Mn Grad: 6.00 MV Pk E: 1.36 MV PK A: 1.63 MV Decel Time: 345.00 E/A: 0.80 E'Lateral: 6.42 E'Medial: 4.13 E/E' Med: 32.90 E/E' Lat: 21.20 PHT: 101.00 MVA PHT: 2.18 MVA Continuity: 1.49 Decel Howell: 3.95 Aortic Valve AoV Pk Tone: 1.95 AoV Mn Tone: 1.40 AoV VTI: 0.41 AoV Pk Grad: 15.00 Aov Mn Grad: 9.00 VY Cont.VTI: 1.79 LVOT LVOT Pk Tone: 1.08 LVOT Mn Tone: 0.80 LVOT VTI: 0.23 LVOT Pk Grad: 5.00 LVOT Mn Grad: 3.00 LVOT Diam: 2.00 LVOT Area: 3.14 Diastolic Function MV Pk E: 1.36 MV Pk A: 1.63 E/A: 0.80 E'Medial: 4.13 E/E' Med: 32.90 E' Laterial: 6.42 E/E' Lat: 21.20 Right Ventricle TAPSE (mm): 19.40 TVS' Tone: 12.20 Tricuspid Valve RA Press: 3.00 Great Vessels Aorta Sinus of Valsalva: 3.20 2.0-3.5 cm Ao Asc: 3.00 2.1-3.4 cm Pulmonary Valve PV Pk Tone: 0.95 Peak PV Grad: 4.00 Updated in Other Vendor System with Status of Final Eliseo Segura MD electronically signed on 02/18/2024 12:38:58 PM with status of Final
== END ==
LOC: HO.CARD 11:08
PROVIDERS: PCP Internal Medicine; Visit Provider Internal Medicine Cardiovascular Disease
DX: I27.20 Pulmonary hypertension, unspecified (principal)
CPT/HCPCS: 93306

== ENCOUNTER → 2024-02-15 11:11 | Outpatient (BNV) | payer OTHER, SELFPAY | PROVIDERS: PCP Internal Medicine; Visit Provider Internal Medicine Cardiovascular Disease | DX: I27.20 Pulmonary hypertension, unspecified (principal) | CPT/HCPCS: 93306 ==

== ENCOUNTER 2024-02-19 14:35 | Outpatient (REF) | payer OTHER, SELFPAY | END 2024-02-19 14:36 | disposition home or self-care (01) | LOC: HO.US 14:35 | PROVIDERS: PCP Internal Medicine; Visit Provider Nurse Practitioner Adult Health | DX: I73.9 Peripheral vascular disease, unspecified (principal) | CPT/HCPCS: 93925 ==

== ENCOUNTER 2024-03-08 11:29 | Outpatient (AMB) | payer OTHER, SELFPAY ==
--- NOTE | 2024-03-08 11:34 | MHC.OFFVISWM ---
VS Expanded 03/08/24 11:42 BP 110/56 L Blood Pressure Location Rt brachial Blood Pressure Position Sitting Pulse 80 Pulse Source Pulse Oximeter Temp 97.2 F Temperature Source Temporal Artery Scan Pulse Oximetry 95 Oxygen Delivery Method Room Air Height 5 ft Weight 187 lb 9.6 oz BMI 36.6 Body Fat % 46.7 Body Fat Mass 87.6 Fat Free Mass 99.8 Visceral Fat Rating 15.0 Body Water % 37.5 Body Water Mass 70.4 Muscle Mass/Score 94.8 Basal Metabolic Rate/Score 1,405 Intake Visit Reasons: (OV) Pre Op Gastric Band Removal 03/19/24 Allergies aspirin [ASPIRIN] Allergy (Intermediate, Verified 03/08/24 11:41) GI UPSET, stomach pain latex [LATEX] Allergy (Intermediate, Verified 03/08/24 11:41) HIVES Medication List - Last Reconciled 03/08/24 by Nick Granados MD acetaminophen (Tylenol Extra Strength) 650 mg PO Q6H PRN acetone (urine) test (Ketostix strips) prn tid glucose over 250, illness, nausea, vomiting albuterol sulfate 90 mcg/actuation 2 puffs PO QID PRN 90 days albuterol sulfate 2.5 mg (3 mL) inhalation Q4-6H PRN aripiprazole 15 mg PO DAILY atorvastatin 40 mg PO DAILY azelastine 1 spray intranasal BEDTIME PRN blood sugar diagnostic (FreeStyle Lite Strips) qid prn to confirm sensor readings or for failed sensor blood-glucose meter (FreeStyle Lite Meter kit) As directed blood-glucose meter,continuous (Dexcom G7 Polish Maker) As directed blood-glucose sensor (Dexcom G7 Sensor device) APPLY DIRECTED AND CHANGE EVERY 10 DAYS (BULK) bolus insulin pump, 200 unit (CeQur Simplicity) As directed every 4 days bolus insulin pump, 200 unit (CeQur Simplicity) As directed every 4 days haczxpuuob-udbwuukr-wncuqbiqnj 160-9-4.8 mcg/actuation (Breztri Aerosphere) 2 inhalations inhalation BID buspirone 30 mg PO BID [diabetic shoes extra depth orthopedic shoes ( 1 pair ) with customize heat molded multi density inner soles ( 3 pair) Dispense 1 Sig: As directed DX: And IDDM /polyneuropathy ( E11 0.42 ); hammertoe foot deformity ( M 20.41, and 20.42 ) pre ulcerative skin lesion ( L 85.1 ) Diagnosis ( E11 0.42 ) type 2 diabetes with polyneuropathy] diabetic supplies, miscellan. (CeQur Simplicity Pin Game Machine Inspector) As directed for use with ceQUR diabetic supplies, miscellan. (CeQur Simplicity Pin Game Machine Inspector) As directed for use with cequr insulin patch donepezil 5 mg PO BEDTIME duloxetine 60 mg PO DAILY fluticasone propionate 50 mcg/actuation 2 sprays intranasal DAILY gabapentin 300 mg PO BEDTIME 30 days glucagon 3 mg/actuation (Baqsimi) 3 mg intranasal ONCE PRN 30 days MDD may repeat in 15 min insulin aspart U-100 (Novolog U-100 Insulin aspart) 100-150 2 units 151-200 4 units over 200 6 units twice daily with breakfast and supper 30 days insulin glargine 12 units (0.12 mL) subcut QPM 30 days insulin syringe-needle U-100 (BD Insulin Syringe Ultra-Fine) qid for insulin administration lancets (FreeStyle Lancets) As directed checks 4 times a day lidocaine 5% (Lidoderm) 1 patch topical DAILY PRN lisinopril 10 mg PO DAILY lorazepam 0.5 mg PO TID PRN melatonin 10 mg PO BEDTIME PRN metformin 1,000 mg PO BID montelukast 10 mg PO DAILY 90 days nebulizers As directed nystatin (Nystop) 1 appl topical BID-TID PRN nystatin 1 mL PO BID Oxygen Home Use As directed pantoprazole 40 mg PO DAILY pen needle, diabetic (BD Verenice 2nd Gen Pen Needle) qid pen needle, diabetic (BD Ultra-Fine Short Pen Needle) DIRECTED TO INJECT FOUR TIMES DAILY sucralfate 10 mL PO BID tirzepatide (Mounjaro) 5 mg (0.5 mL) subcut QWEEK 30 days tramadol 50 mg PO QID PRN vibegron (Gemtesa) 75 mg PO DAILY vitamin B complex 1 cap PO DAILY walker As directed zolpidem 10 mg PO BEDTIME PRN HPI Comments Details: The patient wishes her lap band removed due to ongoing issues of vomiting. [facility] Medical History (Updated 02/07/24 @ 13:05 by Lanny Garnica NP) GERD (gastroesophageal reflux disease) Morbid obesity CASSANDRA (obstructive sleep apnea) Hypoglycemia associated with type 2 diabetes mellitus COPD exacerbation C. difficile enteritis COVID-19 DVT (deep venous thrombosis) Pulmonary hypertension Pulmonary emboli Acute on chronic respiratory failure with hypoxia and hypercapnia Chronic respiratory failure [place] (hard of hearing) PONV (postoperative nausea and vomiting) Post herpetic neuralgia Pneumonia Back pain Chest crackles Cardiomegaly Asthma-COPD overlap syndrome Acute respiratory failure Hyperlipidemia Hypertension Diabetes Arnold-Chiari malformation Arthritis Fibromyalgia Cough CASSANDRA treated with BiPAP Asthma Sinusitis Surgical History (Updated 03/08/24 @ 11:43 by Nick Granados MD) Hx of eye surgery History of esophagogastroduodenoscopy (EGD) H/O colonoscopy Hx of laparoscopic gastric banding H/O bilateral breast reduction surgery H/O brain surgery Family History Mother HTN (hypertension) Breast cancer Father Primary cancer of bone marrow Social History Household Members: Family Household Members Other:: granddaughter Housing: Apartment Are you a primary healthcare consulting manager to a significant other at home: No Do you presently have visiting nurse or other home services: Yes (SEPARATOR INSERTER) Unable to assess alcohol history related to: Unable to respond Alcohol intake: never Patient Tobacco Use Status: Former Tobacco user Tobacco use type: Cigarette Years Smoked: 15 +/- e-Cigarette/Vaping Use: Never Used Second Hand Smoke Exposure: No Advance Directives Date on File: 11/11/21 service: No Assessment & Plan Assessment & Plan (1) Hx of laparoscopic gastric banding: Code(s): Z98.84 - Bariatric surgery status Category: Medical Plan: Plan for lap band removal and accessories given her history of chronic vomiting and esophageal dilation. The operation will be performed laparoscopically. Usually it is an outpatient procedure but due to her medical problems she may need to stay overnight. The patient has received cardiac and pulmonary clearance by Dr Daily and Dr Benson. Risks of bleeding, infection, bowel obstructions, respiratory or cardiac complications and VTE were discussed with the patient and she is in agreement with the plan. Orders: Orders Comprehensive Met. Panel Today E11.9 - Type 2 diabetes mellitus without complications, E66.01 - Morbid (severe) obesity due to excess calories Hemoglobin A1c Today E11.9 - Type 2 diabetes mellitus without complications, E66.01 - Morbid (severe) obesity due to excess calories Complete Blood Count Auto Diff Today E11.9 - Type 2 diabetes mellitus without complications, E66.01 - Morbid (severe) obesity due to excess calories Prothrombin Time INR Today E11.9 - Type 2 diabetes mellitus without complications, E66.01 - Morbid (severe) obesity due to excess calories Partial Thromboplastin Time Today E11.9 - Type 2 diabetes mellitus without complications, E66.01 - Morbid (severe) obesity due to excess calories
[2024-03-08 11:42] VITALS: BP 110/56; PULSE 80; TEMP 36.2; O2SAT 95; BMI 36.6
== END 2024-03-08 12:05 | disposition home or self-care (01) ==
PROVIDERS: PCP Internal Medicine; Visit Provider Surgery
DX: E66.812 Obesity, class 2 (principal); Z68.36 Body mass index [BMI] 36.0-36.9, adult; Z98.84 Bariatric surgery status
CPT/HCPCS: 99499

== ENCOUNTER 2024-03-08 11:29 | Outpatient (REF) | payer OTHER, SELFPAY ==
[2024-03-08 12:43] LABS: MANUAL DIFF FLAG NO
[2024-03-08 12:52] LABS: Basophils Percent Auto 0.3 % (0-2); Eosinophils Absolute Auto 0.2 X10*3/uL (0.0-0.4); Eosinophils Percent Auto 1.6 % (0-4); Hematocrit 39.4 % (37.0-47.0); Hemoglobin 12.7 g/dl (12.0-16.0); Imm Gran Abs Auto 0.04 X10*3/uL (0.00-0.03); Imm Gran Pct Auto 0.4 % (0.0-0.4); Lymphocytes Percent Auto 31.7 % (20-40); Mean Corpuscular HGB Conc 32.2 g/dl (31.0-35.0); Mean Corpuscular Hemoglobin 29.7 pg (27.0-33.0); Mean Corpuscular Volume 92.1 fL (80.0-98.0); Mean Platelet Volume 8.9 fL (9.4-12.3); Monocytes Absolute Auto 0.5 X10*3/uL (0.1-1.2); Monocytes Percent Auto 5.7 % (2-11); Neutrophils Absolute Auto 5.6 x10*3/uL (2.0-8.3); Neutrophils Percent Auto 60.3 % (45-73); Platelet Count 258 X10*3/uL (160-400); Red Blood Count 4.28 X10*6/uL (4.20-5.50); Red Cell Distribution Width 15.1 % (11.0-16.0); White Blood Count 9.3 X10*3/uL (4.8-10.8)
[2024-03-08 12:56] LABS: INTERNATIONAL NORM RATIO 0.9 (0.9-1.1)
[2024-03-08 12:59] LABS: Estimated Average Glucose 177 mg/dL; Hemoglobin A1C 195.0185 umol/L; Hemoglobin A1c % 7.8 % (<6.0); Partial Thromboplastin Time 25.6 SEC (26.0-36.8); Total Hemoglobin (HGBA1C) 3172.7707 umol/L
[2024-03-08 13:32] LABS: Alanine Aminotransferase 43 U/L (0-31); Albumin Level 3.7 g/dL (3.5-5.0); Alkaline Phosphatase 106 U/L (39-117); Anion Gap 10 (12-20); Aspartate Amino Transferase 25 U/L (5-31); Bilirubin Total 0.4 mg/dL (0.0-1.0); Blood Urea Nitrogen 15 mg/dL (9-16); Calcium 9.2 mg/dL (8.4-10.2); Carbon Dioxide 26 mmol/L (22-29); Chloride 105 mmol/L (96-108); Estimated Glomerular Filt Rate > 60; Glucose Random 171 mg/dL (60-115); Potassium 4.2 mmol/L (3.3-5.1); Sodium 137 mmol/L (135-145); Total Protein 6.7 g/dL (6.5-8.0)
== END 2024-03-08 11:30 | disposition home or self-care (01) ==
LOC: HO.LAB 11:29
PROVIDERS: PCP Internal Medicine; Visit Provider Surgery
DX: E11.9 Type 2 diabetes mellitus without complications (principal); E66.01 Morbid (severe) obesity due to excess calories; Z79.01 Long term (current) use of anticoagulants
CPT/HCPCS: 36415; 80053; 83036; 85025; 85610; 85730

== ENCOUNTER → 2024-03-13 10:20 | Outpatient (BNV) | payer OTHER, SELFPAY | PROVIDERS: Admitting Provider Surgery; PCP Internal Medicine; Visit Provider Surgery | DX: K95.09 Other complications of gastric band procedure (principal) | CPT/HCPCS: 43774 ==

== ENCOUNTER 2024-03-20 10:00 | Outpatient (REF) | payer OTHER, SELFPAY ==
--- NOTE | ~2024-03-20 | FL_ITS ---
EXAMINATION: XR FLUOROSCOPY UPPER GI WITH AIR CLINICAL INFORMATION: Dysphagia. COMPARISON: None TECHNIQUE: Fluoroscopic air contrast upper GI examination was performed utilizing standard techniques with thin and thick barium and effervescent granules. Numerous spot images were obtained. FINDINGS: Lateral cine images of the oropharynx and hypopharynx demonstrate normal swallow mechanism with normal epiglottic inversion and soft palate elevation. There is trace laryngeal penetration with thick barium. No tracheal penetration, glottic or subglottic aspiration identified. No nasopharyngeal reflux present. Hypopharyngeal structures appear normal without evidence of mass or diverticulum. There was no significant cricopharyngeal achalasia. Dual and single contrast images of the esophagus demonstrate a normal caliber and contour. There is felinization of the distal esophageal mucosa. No evidence of stricture, mass, or ulcerations identified. Esophageal peristalsis was normal. The patient swallowed the barium tablet without any difficulty. The tablet passed freely into the stomach without any evidence of stasis. A small type I hiatal hernia is present. Moderate gastroesophageal reflux is seen up to the aortic arch. Dual contrast and single contrast images of the stomach demonstrated a normal contour. Evaluation of the gastric mucosa is limited due to underdistention of the stomach from poor tolerance of the effervescent granules. No obvious masses or ulcerations are noted. Contrast freely passed into the gastric antrum and duodenal bulb without delay. Single and air-contrast images of the duodenal bulb demonstrate no abnormality. The duodenal sweep has a normal appearance, course, and mucosal fold appearance. FLUOROSCOPY TIME: 3 minutes 48 seconds Number of Spot Images: 8 Number of Cine: 12 DOSE AREA PRODUCT: 2322 uGy-m2 (microgray-meter squared) FL/FL barium swallow IMPRESSION: 1. Trace laryngeal penetration with thick barium. 2. Felinization of the distal esophageal mucosa. This is a benign finding associated with chronic gastric esophageal reflux. Moderate gastroesophageal reflux was seen during the evaluation. 3. Small type I hiatal hernia. 4. Limited evaluation of the gastric mucosa due to underdistention of the stomach from poor tolerance of the effervescent granules. This procedure was performed by Jorge Horton PA-C, and supervised by Dr. Duron Electronically signed by: Timothy Duron MD 03/21/2024 10:12 AM [facility] [place]
== END 2024-03-20 10:01 | disposition home or self-care (01) ==
LOC: HO.XRAY 10:00
PROVIDERS: PCP Internal Medicine; Visit Provider Internal Medicine Gastroenterology
DX: R13.10 Dysphagia, unspecified (principal)
CPT/HCPCS: 74220

== ENCOUNTER → 2024-03-20 10:02 | Outpatient (BNV) | payer OTHER, SELFPAY | PROVIDERS: PCP Internal Medicine; Visit Provider Physician Assistant Surgical | DX: R13.10 Dysphagia, unspecified (principal) | CPT/HCPCS: 74221 ==

== ENCOUNTER 2024-03-21 15:24 | Outpatient (AMB) | payer OTHER, SELFPAY ==
--- NOTE | 2024-03-21 15:28 | A.OFFVIS_ITS ---
VS Expanded 03/21/24 15:36 BP 124/57 L Blood Pressure Location Rt brachial Blood Pressure Position Sitting Pulse 92 Pulse Source Pulse Oximeter Temp 97.3 F Temperature Source Temporal Artery Scan Pulse Oximetry 98 Oxygen Delivery Method Room Air Height 5 ft Weight 190 lb 12.8 oz BMI 37.3 Body Fat % 43.9 Body Fat Mass 83.8 Fat Free Mass 107.0 Visceral Fat Rating 15.0 Body Water % 39.5 Body Water Mass 75.4 Muscle Mass/Score 101.4 Basal Metabolic Rate/Score 1,483 Intake Visit Reasons: (OV) PO Gastric Band Removal 03/13/24 Allergies aspirin [ASPIRIN] Allergy (Intermediate, Verified 03/13/24 10:34) GI UPSET, stomach pain latex [LATEX] Allergy (Intermediate, Verified 03/13/24 10:34) HIVES HPI Comments Details: Pleasant 73-year-old female, 8 days post band removal on 03/13/2024. Weight today is 190.8 lb with a BMI of 37.2. She was previously doing 3 celebrate rebuild shakes with 1 scoop each and 1 celebrate rebuild shake with 2 scoops. She then began eating food, whatever she wanted including chicken, rice, beans, pork chops, salad, coffee, oatmeal. She does state that she would like to lose more weight. Additionally, she removed her bandages and gauze and Steri-Strips a couple of days ago. She is taking 12 units of Lantus at night and has noted blood sugars in the 250s. [facility] Medical History Supplemental oxygen dependent GERD (gastroesophageal reflux disease) CASSANDRA (obstructive sleep apnea) Hypoglycemia associated with type 2 diabetes mellitus COPD exacerbation C. difficile enteritis COVID-19 DVT (deep venous thrombosis) Pulmonary hypertension Pulmonary emboli Acute on chronic respiratory failure with hypoxia and hypercapnia Chronic respiratory failure [place] (hard of hearing) PONV (postoperative nausea and vomiting) Post herpetic neuralgia Pneumonia Back pain Morbid obesity Chest crackles Cardiomegaly Asthma-COPD overlap syndrome Acute respiratory failure Hyperlipidemia Hypertension Diabetes Arnold-Chiari malformation Arthritis Fibromyalgia Cough CASSANDRA treated with BiPAP Asthma Sinusitis Surgical History Hx of eye surgery History of esophagogastroduodenoscopy (EGD) H/O colonoscopy Hx of laparoscopic gastric banding (~2009) H/O bilateral breast reduction surgery H/O brain surgery Family History Mother HTN (hypertension) Breast cancer Father Primary cancer of bone marrow Social History Household Members: Family Household Members Other:: granddaughter Housing: Apartment Are you a primary managed care provider to a significant other at home: No Do you presently have visiting nurse or other home services: Yes ([employer] 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 Recommend celebrate rebuild 2 scoops in the morning and 2 scoops mid day. She may have a meal at night with 8 forks of protein and 8 forks of vegetables. She has follow-up with endocrinology next week or 2. She should resume her NovoLog insulin but will discuss this with Dr. Granados. We will have her return to the office in 1 month
[2024-03-21 15:36] VITALS: BP 124/57; PULSE 92; TEMP 36.3; O2SAT 98; BMI 37.3
== END 2024-03-21 16:01 | disposition home or self-care (01) ==
PROVIDERS: PCP Internal Medicine; Visit Provider Physician Assistant Surgical
DX: K95.09 Other complications of gastric band procedure (principal)
CPT/HCPCS: 99024

== ENCOUNTER → 2024-03-21 15:24 | Outpatient (BNVA) | payer OTHER, SELFPAY | PROVIDERS: PCP Internal Medicine; Visit Provider Physician Assistant Surgical | DX: K59.09 Other constipation (principal) | CPT/HCPCS: 99212 ==

== ENCOUNTER 2024-04-08 13:34 | Outpatient (AMB) | payer OTHER, SELFPAY ==
[2024-04-08 13:45] VITALS: BMI 37.1
--- NOTE | 2024-04-08 13:45 | A.OFFVIS_ITS ---
VS Expanded 04/08/24 13:45 04/08/24 14:23 Height 5 ft 5 ft Weight 190 lb 0.615 oz 190 lb BMI 37.1 37.1 Intake Visit Reasons: T2DM/Left Vm Allergies aspirin [ASPIRIN] Allergy (Intermediate, Verified 03/13/24 10:34) GI UPSET, stomach pain latex [LATEX] Allergy (Intermediate, Verified 03/13/24 10:34) HIVES Nutrition Presentation Details: Pt presents for MNT f/u for T2DM Pt reports eating regular meals and having increased gas likes desserts 3 leches and may have it once/wk 14 d bg average 153 mg/dl ( 79% within target, no hypoglycemia events) , 20 % above 180 mg/dl , Typical meal 11-12 B: oatmeal with milk coffee with 2% milk - not lactose free 4-7 pm : root vegetables and fish or chicken or rice/hayden and chicken , water 9pm: 4 oz juice and bread with cheese Pt reports having increased appetite for desserts types of foods- Pt was advised to reduce on frequency of these foods and opt for those free of dairy due to her statements of gassiness after consuming dairy BS Monitoring Most Recent Diabetes Results: Creatinine 0.89 mg/dL (0.5-1.4) 03/08/24 Blood Urea Nitrogen 15 mg/dL (9-16) 03/08/24 Sodium 137 mmol/L (135-145) 03/08/24 Potassium 4.2 mmol/L (3.3-5.1) 03/08/24 Chloride 105 mmol/L (96-108) 03/08/24 Carbon Dioxide 26 mmol/L (22-29) 03/08/24 Calcium 9.2 mg/dL (8.4-10.2) 03/08/24 AST 25 U/L (5-31) 03/08/24 ALT 43 U/L (0-31) H 03/08/24 Total Protein 6.7 g/dL (6.5-8.0) 03/08/24 Albumin 3.7 g/dL (3.5-5.0) 03/08/24 KQC-Chvbcit-Hf.Jeor Equation Height: 5 ft Weight: 190 lb Resting Metabolic Rate: 1303.14 Calculated Activity Level: Sedentary Calories Needed to Maintain Weight: 1563.77 PFSH Medical History (Updated 03/26/24 @ 09:01 by Lanny Garnica NP) Peripheral vascular disease Supplemental oxygen dependent GERD (gastroesophageal reflux disease) CASSANDRA (obstructive sleep apnea) Hypoglycemia associated with type 2 diabetes mellitus COPD exacerbation C. difficile enteritis COVID-19 DVT (deep venous thrombosis) Pulmonary hypertension Pulmonary emboli Acute on chronic respiratory failure with hypoxia and hypercapnia Chronic respiratory failure [place] (hard of hearing) PONV (postoperative nausea and vomiting) Post herpetic neuralgia Pneumonia Back pain Morbid obesity Chest crackles Cardiomegaly Asthma-COPD overlap syndrome Acute respiratory failure Hyperlipidemia Hypertension Diabetes Arnold-Chiari malformation Arthritis Fibromyalgia Cough CASSANDRA treated with BiPAP Asthma Sinusitis Surgical History Hx of eye surgery History of esophagogastroduodenoscopy (EGD) H/O colonoscopy Hx of laparoscopic gastric banding (~2009) H/O bilateral breast reduction surgery H/O brain surgery Family History Mother HTN (hypertension) Breast cancer Father Primary cancer of bone marrow Social History Household Members: Family Household Members Other:: granddaughter Housing: Apartment Are you a primary care manager cna to a significant other at home: No Do you presently have visiting nurse or other home services: Yes (S[employer]ESPERSON [employer]ION ACCESSORIES Monday- Monday) Unable to assess alcohol history related to: Unable to respond Alcohol intake: never Patient Tobacco Use Status: Former Tobacco user Tobacco use type: Cigarette Years Smoked: 15 +/- e-Cigarette/Vaping Use: Never Used Second Hand Smoke Exposure: No Advance Directives Date on File: 11/11/21 service: No Assessment & Plan Assessment & Plan (1) Diabetes: Code(s): E11.9 - Type 2 diabetes mellitus without complications Category: Medical Qualifiers: Diabetes mellitus type: type 2 Diabetes mellitus group home insulin use: with oil heaterman use Diabetes mellitus complication status: with hypoglycemia Plan: ?Used wt : 90 kg (06/27), 88 kg (12/27), 86 kg (04/30) Est kcal as per MSJ: 1600 (40% carb, 30% fat/prot) Est fluid needs: 2500 ml/d (25 ml/kg bw) Rec fiber: increase to 8-10 g per day and gradually increase to 25 g/d as tolerated Rec Na: < 2000 mg /d Educate patient on: (R= Reviewed, V = verbalizes understanding N/R= Needs re view N/A= not applicable) * Food sources of carbohydrates and serving adequate serving sizes : R * Difference between complex carbohydrates and simple carbohydrates, role of fiber: R * Differences between fats (MUFA/PUFA/saturated fats, trans fats) and food sources of various fats: R * Lean protein sources of foods: R, V * nutritional supplement/replacements, dairy free options: R * Food sources of sodium and salt and healthy modifications for heart health and kidney health: R * How to interpret food labels: R * Healthy Plate method concept: R V * Physical activity: benefits and precaution: N/R * Patient Instructions: Choose lactose free milk and lactose free products to help reduce the gas symptoms - choose plant based butter or olive oil , read labels choosing foods free of dairy Coding Level of Care Code Nutr Indiv Subseq (53096) Diagnoses Diabetes E11.9 Diabetes mellitus type: type 2 Diabetes mellitus oil heaterman insulin use: with group home use Diabetes mellitus complication status: with hypoglycemia Time Spent (min) 30
[2024-04-08 14:23] VITALS: BMI 37.1
--- OUTSIDE RECORDS SUMMARY | 2024-04-08 14:57 | XMS_ITS | Data Portability ---
Author Organization [facility] Pain Managem ent, PAIN OFFICE Address [address] [address] [place] [address] Care Team Providers Care Registered Veterinary Technician Name Role Phone CARINA SOLER Primary Care Provider DENNIS DYER OTHER [phone] Assessment Encounter Date Assessment Date Assessment LastModified by Organization Details LastModified Time 05/18/2023 05/18/2023 She is a 72 year old woman with low back pain radiating into the both lower extremities. On exam ,she has pain on flexion. MRI Lumbar spine shows multilevel degenerative changes of the lumbar spine with central canal and foraminal narrowing worse at L4-5 level. . Trial of Lumbar epidural steroid injections under fluoroscopic guidance was recommended. The risks and benefits of the procedure? ? ? were discussed in detail. She wishes to proceed. An appointment will be booked after insurance approval. She needs a motor pool driver on the day of the procedure. She is a diabetic. Blood sugar levels may temporarily increase after steroid injections. She was advised to check her blood glucose levels three times a day post procedure. If her levels are above 250, She was advised to contact her PCP. [email or web address] Not available 05/18/2023 10:47:53 06/20/2023 06/20/2023 She is a 72 year old woman with low back pain radiating into the both lower extremities. On exam ,she has pain on flexion. MRI Lumbar spine shows multilevel degenerative changes of the lumbar spine with central canal and foraminal narrowing worse at L4-5 level. She is here for a trial of Lumbar epidural steroid injections under fluoroscopic guidance . The risks and benefits of the procedure? ? ? were discussed in detail. She wishes to proceed. She is a diabetic. Blood sugar levels may temporarily increase after steroid injections. She was advised to check her blood glucose levels three times a day post procedure. If her levels are above 250, She was advised to contact her PCP. She can follow up in four weeks [email or web address] Not available 06/20/2023 11:20:59 07/17/2023 07/17/2023 Madeleine Piña is a 72 year old woman with bilateral shoulder pain for the past three months . On exam ,she has pain on abduction and limited range of motion of her both shoulders. X-ray both shoulder shows mild osteoarthritis and bursitis . She is here for a right shoulder steroid injection under? ? ?ultrasound guidance . The risks and benefits of the procedure? ? ? were discussed in detail. She wishes to proceed. She is a diabetic. Blood sugar levels may temporarily increase after steroid injections. She was advised to check her blood glucose levels three times a day post procedure. If her levels are above 250, She was advised to contact her PCP. She will follow up in four weeks for her left shoulder injection ana [email or web address] Not available 07/17/2023 13:38:04 12/07/2023 12/07/2023 Madeleine Piña is a 73 year old woman with bilateral shoulder pain for the past three months . On exam ,she has pain on abduction and limited range of motion of her both shoulders. X-ray both shoulder shows mild osteoarthritis and bursitis . She is here for a right shoulder steroid injection under? ? ?ultrasound guidance . She has an active infection and will reschedule once her infection is better. [email or web address] Not available 12/07/2023 14:21:51 02/08/2024 02/08/2024 Madeleine Piña is a 73 year old woman with bilateral shoulder pain for the past three months . On exam ,she has pain on abduction and limited range of motion of her both shoulders. X-ray both shoulder shows mild osteoarthritis and bursitis . She is here for bilateral shoulder steroid injection under? ? ?ultrasound guidance . The risks and benefits of the procedure? ? ? were discussed in detail. She wishes to proceed. She is a diabetic. Blood sugar levels may temporarily increase after steroid injections. She was advised to check her blood glucose levels three times a day post procedure. If her levels are above 250, She was advised to contact her PCP. She will follow up in a few weeks for TPI ronald Not available 02/08/2024 16:16:36 Plan of Treatment Reminders Order Date Submit Date Provider Last Modified By Organization Details Last Modified Time Details Appointments PROCEDURE 2024 02:30P M Lesa jaimes MD Not available Not available Not available PROCEDURE 2024 01:30P M Lesa jaimes MD Not available Not available Not available Lab None recorded. Referral None recorded. Procedures None recorded. Surgeries None recorded. Imaging None recorded. Medication Orders None recorded. Patient TargetsNo targets recorded. Patient InstructionsNo instructions recorded. Reason for Referral None Reported. 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 Lesa jaimes MD [address] , [address], [place], [address], [place] [facility] 0 14:21:30 Trochanteri c bursitis of left hip [id number] 03 Active 2022 Lesa jaimes MD [address] , [address], [facility], [address], [place] [facility] 3 14:37:24 Lumbosacral radiculitis 22084007 Active Lesa jaimes MD [address] , [address], [facility], [address], [place] [facility] 4 13:08:14 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 [id number] Active Lesa jaimes MD [address] , [address], [place], [address], [place] [facility] 4 13:08:14 Lumbosacral spondylosis without myelopathy 56340715 Active Lesa jaimes MD [address] , [address], [place], [address], [place] [facility] 4 13:08:14 Mononeuriti s of upper limb Active Lesa jaimes MD [address] , [address], [place], [address], [place] [facility] 4 13:08:14 Muscle pain 21037031 Active Lesa jaimes MD [address] , [address], [place], [address], [place] [facility] 4 13:08:14 Problem Notes None recorded. Procedures Surgical History Date Name Laterality Status Provider Name and Address Organization Details Recorded Time 02/08/20 24 Intra-articular shoulder steroid injection under ultrasound guidance completed Lesa Marie MD [address] , [address], [place], [address], [place] [facility] 02/08/2024 16:15:41 07/17/19 24 Intra-articular shoulder steroid injection under ultrasound guidance completed Lesa Marie MD [address] , [address], [place], [address], [place] [facility] 07/17/2023 13:37:19 06/20/19 24 Lumbar Epidural steroid injection under fluoroscopic guidance completed Lesa Marie MD [address] , [address], [place], [address], [place] [facility] 06/20/2023 11:18:39 12/13/19 23 Intra-articular shoulder steroid injection under ultrasound guidance completed Lesa Marie MD [address] , [address], [place], [address], [place] [facility] 12/12/2022 13:15:42 12/06/19 23 Intra-articular shoulder steroid injection under ultrasound guidance completed Lesa Marie MD [address] , [address], [place], [address], [place] [facility] 12/05/2022 13:14:40 04/26/19 23 Greater Trochanteric Bursa Steroid Injection completed Lesa Marie MD [address] , [address], [place], [address], [place] [facility] 04/26/2022 14:36:25 01/20/20 22 Greater Trochanteric Bursa Steroid Injection completed Lesa Marie MD [address] , [address], [place], [address], [place] [facility] 01/19/2022 13:42:11 03/18/19 14 Lumbar Epidural steroid injection under fluoroscopic guidance completed Lesa Marie MD [address] , [address], [place], [address], [place] [facility] 03/19/2013 13:08:14 11/20/19 13 Lumbar Epidural steroid injection under fluoroscopic guidance completed Lesa Marie MD [address] , [address], [place], [address], [place] [facility] 11/20/2012 09:33:24 03/10/19 12 Trigger Point Injections under ultrasound guidance completed Lesa Marie MD [address] , [address], [place], [address], [place] [facility] 03/10/2011 10:38:48 03/06/19 06 Other completed Not Available [facility] 1 03:05:25 03/06/19 02 Other completed Not Available [facility] 03:05:25 Other completed Not Available [facility] 03:05:25 Imaging Results None recorded. Procedure Notes None recorded. Medical Equipment None Reported. Allergies Allergen ID Allergen Name Allergen Category Reaction Reaction Severity Criticality Documentation Date Start Date Code Code System Note Provider Name and Address Organization Details Recorded Time 441 aspirin medicatio n other mild Not available 12/21/2010 1191 RxNorm Burni ng sensa tion in the stoma ch Not Available [facility] 03:05:17 541 latex environme nt,medica tion rash Not available Not available 12/27/2010 15204 91 RxNorm Not Available [facility] 03:05:17 Medications Name Sig Start Date Stop Date Status Note LastModified by Organization Details LastModified Time melatonin tab ex str active Not Available Not Available N ot Available cyclobenza josé miguel 10 mg tablet active Not Available Not Available No t Available amoxicilli n 500 mg capsule active Not Available Not Available Not Available fluconazol e 100 mg tablet TAKE 1 TABLET BY MOUTH EVERY DAY active Not Available Not Available No t Available atorvastat in 40 mg tablet TAKE 1 TABLET BY MOUTH EVERY DAY active Not Available Not Available No t Available clotrimazo le 10 mg thuy active Not Available Not Available Not Available buspirone 5 mg tablet TAKE 1 TABLET BY MOUTH TWICE DAILY 11/30 completed Not Available Not Available Not Available atorvastat in 80 mg tablet TAKE 1 TABLET BY MOUTH EVERY DAY 07/16 completed Not Available Not Available Not Available nystatin 100,000 unit/mL oral suspension SWISH AND SWALLOW 1 ML BY MOUTH TWICE DAILY active Not Available Not Available No t Available prednisone 10 mg tablet TAKE 4 TABLETS DAILY FOR 2 DAYS THEN 3 TABLETS DAILY FOR 2 DAYS THEN 2 TABLETS DAILY FOR 2 DAYS THEN 1 TABLET DAILY FOR 2 DAYS 11/30 completed Not Available Not Available Not Available gabapentin 600 mg tablet TAKE 1 TABLET BY MOUTH TWICE A DAY 11/30 completed Not Available Not Available Not Available doxycyclin e hyclate 100 mg capsule TAKE 1 CAPSULE BY MOUTH TWICE DAILY 10/31 completed Not Available Not Available Not Available cefuroxime axetil 250 mg tablet TAKE 1 TABLET BY MOUTH TWICE DAILY FOR 7 DAYS 12/30 completed Not Available Not Available Not Available donepezil 5 mg tablet TAKE 1 TABLET BY MOUTH EVERY DAY AT BEDTIME active Not Available Not Available No t Available ketoconazo le 2 % shampoo APPLY TO SCALP 10 MINUTES BEFORE SHOWERIN G THEN LATHER AND FOLLOW WITH GENTLE SHAMPOO AND CONDITIO NER 1-2 TIMES PER WEEK active Not Available Not Available No t Available clindamyci n HCl 300 mg capsule TAKE 1 CAPSULE BY MOUTH EVERY 6 HOURS UNTIL GONE 11/30 completed Not Available Not Available Not Available albuterol sulfate 2.5 mg/3 mL (0.083 %) solution for nebulizati on INHALE 3ML VIA NEBULIZE R EVERY 4-6 HOURS NEEDED FOR WHEEZING active Not Available Not Available No t Available trazodone 50 mg tablet TAKE 1 TABLET BY MOUTH AT BEDTIME NEEDED FOR SLEEP 11/30 completed Not Available Not Available Not Available azithromyc in 250 mg tablet TAKE 1 TABLET BY MOUTH DAILY FOR 3 DAYS 02/06 completed Not Available Not Available Not Available lidocaine 5 % topical cream Please bring to office for applicat ion 11/30 completed Not Available Not Available Not Available ibuprofen 800 mg tablet TAKE 1 TABLET BY MOUTH EVERY 8 HOURS NEEDED FOR PAIN 11/30 completed Not Available Not Available Not Available fluconazol e 150 mg tablet TAKE 1 TABLET BY MOUTH EVERY 3 DAYS. MAY REPEAT SECOND DOSE 72 HOURS AFTER FOR 1 DOSE IF SYMPTOMS PERSIST 12/06 completed Not Available Not Available Not Available valacyclov ir 1 gram tablet 02/04 completed Not Available Not Available Not Available Nystop 100,000 unit/gram topical powder USE 1 APPLICAT ION EXTERNAL LY TWICE DAILY active Not Available Not Available No t Available sucralfate 100 mg/mL oral suspension active Not Available Not Available N ot Available meloxicam 15 mg tablet TAKE 1 TABLET BY MOUTH EVERY DAY 02/07 completed Not Available Not Available Not Available FreeStyle Lancets 28 gauge DIRECTED TO TEST BLOOD SUGAR FOUR TIMES DAILY active Not Available Not Available No t Available prednisone 20 mg tablet TAKE 2 TABLETS BY MOUTH DAILY FOR 5 DAYS 12/06 completed Not Available Not Available Not Available clonazepam 0.5 mg tablet TAKE 1 TABLET BY MOUTH TWICE DAILY NEEDED FOR ANXIETY active Not Available Not Available No t Available terconazol e 0.8 % vaginal cream 05/15 completed Not Available Not Available Not Available glipizide ER 5 mg tablet, extended release 24 hr active Not Available Not Available Not Available Lantus U-100 Insulin 100 unit/mL subcutaneo us solution active Not Available Not Available Not Available nystatin 500,000 unit tablet TAKE 1 TABLET BY MOUTH 3 TIMES A DAY FOR 10 DAYS 07/16 completed Not Available Not Available Not Available Nexium 40 mg capsule,de layed release active Not Available Not Available Not Available topiramate 25 mg tablet TK 1 T PO BID 05/15 completed Not Available Not Available Not Available metronidaz ole 500 mg tablet active Not Available Not Available Not Available sulfametho xazole 800 mg-trimeth oprim 160 mg tablet active Not Available Not Available No t Available tramadol 50 mg tablet TAKE 1 TABLET BY MOUTH FOUR TIMES DAILY NEEDED active Not Available Not Available No t Available acetaminop hen 500 mg tablet TAKE 1 TABLET BY MOUTH EVERY 6 HOURS NEEDED FOR FEVER OR FOR PAIN 11/30 completed Not Available Not Available Not Available amoxicilli n 500 mg tablet TAKE 4 TABLETS BY MOUTH 1 HOUR PRIOR TO LUMBAR INJECTIO N 07/16 completed Not Available Not Available Not Available lidocaine- prilocaine 2.5 %-2.5 % topical cream CHELSEA CREAM WILL BE APPLIED AT THE OFFICE VERIFY DIRECTIO NS 11/30 completed Not Available Not Available Not Available lamotrigin e 25 mg tablet active Not Available Not Available Not Available ketorolac 0.5 % eye drops INSTILL 1 DROP INTO THE AFFECTED EYE THREE TIMES DAILY DIRECTED STARTING 2 DAYS PRIOR TO SURGERY. TAPER DIRECTED 12/30 completed Not Available Not Available Not Available Celebrex 200 mg capsule Take 1 capsule twice a day by oral route after meals for 3 days. active Not Available Not Available No t Available meloxicam 7.5 mg tablet TAKE 1 TABLET BY MOUTH TWICE DAILY NEEDED 12/30 completed Not Available Not Available Not Available oxycodone- acetaminop hen 5 mg-325 mg tablet TAKE 1 TABLET BY MOUTH EVERY 4 HOURS NEEDED FOR PAIN. DO NOT OPERATE HEAVY MACHINER Y UNDER THE INFLUENC E 11/30 completed Not Available Not Available Not Available amoxicilli n 875 mg tablet active Not Available Not Available Not Available DuoNeb 0.5 mg-3 mg(2.5 mg base)/3 mL solution for nebulizati on Inhale 3 mL 4 times a day by nebuliza tion route. active as needed Not Available Not Available Not Available lorazepam 0.5 mg tablet TAKE 1 TABLET BY MOUTH THREE TIMES DAILY NEEDED active Not Available Not Available No t Available oxycodone- acetaminop hen 5 mg-500 mg capsule active Not Available Not Available Not Available dexamethas one 1 mg tablet active Not Available Not Available Not Available baclofen 10 mg tablet TAKE 1 TABLET BY MOUTH TWICE DAILY active Not Available Not Available No t Available insulin aspart U-100 100 unit/mL subcutaneo us solution INJECT UP TO 80 UNITS PER DAY VIA INSULIN PUMP SUBCUTAN EOUS DIRECTED active Not Available Not Available No t Available cephalexin 500 mg capsule 12/05 completed Not Available Not Available Not Available pantoprazo le 40 mg tablet,del ayed release active Not Available Not Available Not Available buspirone 30 mg tablet TAKE 1 TABLET BY MOUTH TWICE DAILY active Not Available Not Available No t Available metformin 1,000 mg tablet TAKE 1 TABLET BY MOUTH TWICE DAILY active Not Available Not Available No t Available nystatin 100,000 unit/gram topical cream APPLY 1 APPLICAT ION EXTERNAL LY TWICE A DAY active Not Available Not Available No t Available buspirone 10 mg tablet TAKE 1 TABLET BY MOUTH TWICE DAILY 11/30 completed Not Available Not Available Not Available clotrimazo le-betamet hasone 1 %-0.05 % topical cream APPLY TOPICALL Y TO THE AFFECTED AREA TWICE DAILY active Not Available Not Available No t Available lisinopril 10 mg tablet TAKE 1 TABLET BY MOUTH EVERY DAY active Not Available Not Available No t Available lidocaine 5 % topical patch APPLY 1-2 PATCHES EXTERNAL LY 12 HOURS ON AND 12 HOURS OFF active Not Available Not Available No t Available gabapentin 300 mg capsule TAKE 1 CAPSULE BY MOUTH EVERY NIGHT AT BEDTIME active Not Available Not Available No t Available omeprazole 20 mg capsule,de layed release TAKE 1 CAPSULE BY MOUTH EVERY DAY active Not Available Not Available No t Available insulin syringe U-100 with needle 1 mL 31 gauge x /16 active Not Available Not Available Not Available montelukas t 10 mg tablet TAKE 1 TABLET BY MOUTH DAILY active Not Available Not Available No t Available hydrocodon e 5 mg-acetami nophen 500 mg tablet active Not Available Not Available No t Available lisinopril 5 mg tablet TAKE 1 TABLET BY MOUTH EVERY DAY active Not Available Not Available No t Available mupirocin 2 % topical ointment APPLY A SMALL AMOUNT TO THE AFFECTED AREA OF NOSTRILS TWICE DAILY FOR 2 WEEKS active Not Available Not Available No t Available zolpidem 5 mg tablet TAKE 1 TABLET BY MOUTH EVERY NIGHT AT BEDTIME NEEDED active Not Available Not Available No t Available furosemide 20 mg tablet TAKE 1 TABLET BY MOUTH EVERY DAY FOR 10 DAYS 11/30 completed Not Available Not Available Not Available gabapentin 100 mg capsule active Not Available Not Available Not Available lorazepam 1 mg tablet TAKE 1 TABLET BY MOUTH EVERY DAY AT BEDTIME NEEDED active Not Available Not Available No t Available azelastine 137 mcg (0.1 %) nasal spray SPRAY 2 SPRAYS TWICE A DAY active Not Available Not Available No t Available ibuprofen 600 mg tablet TAKE 1 TABLET BY MOUTH THREE TIMES DAILY NEEDED 11/30 completed Not Available Not Available Not Available fluocinoni de 0.05 % topical solution active Not Available Not Available Not Available cefuroxime axetil 500 mg tablet TAKE 1 TABLET BY MOUTH EVERY 12 HOURS FOR 4 DAYS 02/06 completed Not Available Not Available Not Available levofloxac in 500 mg tablet TAKE 1 TABLET BY MOUTH EVERY 24 HOURS 02/04 completed Not Available Not Available Not Available levofloxac in 750 mg tablet 02/04 completed Not Available Not Available Not Available zolpidem 10 mg tablet TAKE 1 TABLET BY MOUTH EVERY DAY AT BEDTIME NEEDED FOR INSOMNIA active Not Available Not Available No t Available insulin syringe U-100 with needle 1 mL 30 gauge x 09/18 active Not Available Not Available Not Available methylpred nisolone 4 mg tablets in a dose pack FOLLOW PACKAGE DIRECTIO NS 10/31 completed Not Available Not Available Not Available albuterol sulfate HFA 90 mcg/actuat ion aerosol inhaler INHALE 2 PUFFS BY MOUTH FOUR TIMES DAILY active Not Available Not Available No t Available SSD 1 % topical cream active Not Available Not Available Not Available dexamethas one 1.5 mg tablet active Not Available Not Available Not Available betamethas one dipropiona te 0.05 % topical ointment 12/30 completed Not Available Not Available Not Available fluticason e propionate 50 mcg/actuat ion nasal spray,susp ension SHAKE LIQUID AND USE 2 SPRAYS IN EACH NOSTRIL DAILY active Not Available Not Available No t Available betamethas one dipropiona te 0.05 % lotion 12/30 completed Not Available Not Available Not Available doxycyclin e hyclate 100 mg tablet TAKE 1 TABLET BY MOUTH TWICE DAILY 02/06 completed Not Available Not Available Not Available lamotrigin e 100 mg tablet active Not Available Not Available Not Available ipratropiu m bromide 21 mcg (0.03 %) nasal spray INSTILL 2 SPRAYS IN EACH NOSTRIL TWICE DAILY 12/30 completed Not Available Not Available Not Available Ketostix strips DIRECTED active Not Available Not Available No t Available naproxen 500 mg tablet TAKE 1 TABLET BY MOUTH TWICE DAILY FOR 10 DAYS NEEDED FOR PAIN 12/30 completed Not Available Not Available Not Available diazepam 5 mg tablet active Not Available Not Available No t Available amoxicilli n 875 mg-potassi um clavulanat e 125 mg tablet TAKE 1 TABLET BY MOUTH EVERY 12 HOURS FOR 5 DAYS 02/06 completed Not Available Not Available Not Available buspirone 15 mg tablet TAKE 1 TABLET BY MOUTH TWICE DAILY active Not Available Not Available No t Available oxycodone 5 mg tablet TAKE 1 TABLET BY MOUTH 3 TIMES A DAY NEEDED FOR PAIN 11/30 completed Not Available Not Available Not Available ciclopirox 0.77 % topical cream APPLY TOPICALL Y TO THE AFFECTED AREA TWICE DAILY active Not Available Not Available No t Available azithromyc in 500 mg tablet 05/15 completed Not Available Not Available Not Available Novolog Mix 70-30 FlexPen U-100 Insulin 100 unit/mL subcutaneo us pen INJECT 20 UNITS PER SLIDING SCALE 11/30 completed Not Available Not Available Not Available aripiprazo le 15 mg tablet active Not Available Not Available Not Available Novolog Mix 70-30 U-100 Insulin 100 unit/mL subcutaneo us solution active Not Available Not Available Not Available Novolog FlexPen U-100 Insulin aspart 100 unit/mL (3 mL) subcutaneo us INJECT 2-8 UNITS PER SLIDING SCALE FOUR TIMES DAILY BEFORE MEALS/BE DTIME active Not Available Not Available No t Available cyclobenza josé miguel 5 mg tablet TAKE 1 TABLET BY MOUTH THREE TIMES DAILY FOR 7 DAYS NEEDED FOR BACK PAIN 12/30 completed Not Available Not Available Not Available Premarin 0.625 mg/gram vaginal cream 05/15 completed Not Available Not Available Not Available aripiprazo le 5 mg tablet TAKE 1 TABLET BY MOUTH EVERY DAY 11/30 completed Not Available Not Available Not Available nitrofuran toin monohydrat e/macrocry stals 100 mg capsule TAKE 1 CAPSULE BY MOUTH EVERY 12 HOURS WITH FOOD FOR 7 DAYS 11/30 completed Not Available Not Available Not Available duloxetine 60 mg capsule,de layed release TAKE 1 CAPSULE BY MOUTH EVERY DAY active Not Available Not Available No t Available BD Ultra-Fine Mini Pen Needle 31 gauge x 3/16 USE DIRECTED TO INJECT INSULIN FOUR TIMES DAILY active Not Available Not Available No t Available darifenaci n ER 15 mg tablet,ext ended release 24 hr TAKE 1 TABLET WITH LIQUID ORALLY ONCE A DAY 05/17 completed Not Available Not Available Not Available pregabalin 150 mg capsule TAKE 1 CAPSULE BY MOUTH EVERY DAY FOR 90 DAYS active Not Available Not Available No t Available Lyrica 75 mg capsule active Not Available Not Available N ot Available chlorhexid ine gluconate 0.12 % mouthwash TAKE 1 CAP,SWIS H, HOLD FOR 2 MINS THEN SPIT 3 TIMES A DAY AFTER MEALS active Not Available Not Available No t Available metformin 11/30 completed 1000 mg BID Not Available Not Available Not Available Humalog Mix 75-25(U-10 0)Insuln 60 units in am and 60 units in pm active Not Available Not Available No t Available BD Insulin Syringe Ult-Fine II 1 mL 31 gauge x 5/16 active Not Available Not Available Not Available BD Insulin Syringe Ultra-Fine (half unit) 0.3 mL 31 gauge x 5/16 active Not Available Not Available Not Available BD Ultra-Fine Short Pen Needle 31 gauge x 5/16 USE TO INJECT FOUR TIMES DAILY active Not Available Not Available No t Available aripiprazo le 2 mg tablet TAKE 1 TABLET BY MOUTH EVERY DAY active Not Available Not Available No t Available Symbicort 160 mcg-4.5 mcg/actuat ion HFA aerosol inhaler INHALE 2 PUFFS BY MOUTH TWICE DAILY 11/30 completed Not Available Not Available Not Available Symbicort 80 mcg-4.5 mcg/actuat ion HFA aerosol inhaler Inhale 2 puffs twice a day by inhalati on route. active Not Available Not Available No t Available peg 3350-elect rolytes 236 gram-22.74 gram-6.74 gram-5.86 gram solution MIX AND DRINK 240ML BY MOUTH EVERY 10 MINUTES UNTIL FINISHED . USE DIRECTED . REFER TO PREP INSTRUCT IONS GIVEN/MA ILED TO YOU FROM OFFICE 07/16 completed Not Available Not Available Not Available FreeStyle Lite Meter kit DIRECTED TO TEST BLOOD SUGAR active Not Available Not Available No t Available FreeStyle Lite Strips DIRECTED TO TEST BLOOD SUGAR FOUR TIMES DAILY NEEDED TO CONFIRM SENSOR READINGS OR FAILED SENSOR active Not Available Not Available No t Available Lantus Solostar U-100 Insulin 100 unit/mL (3 mL) subcutaneo us pen ADMINIST ER 8 UNITS UNDER THE SKIN DAILY NEEDED FOR PUMP FAILURE active Not Available Not Available No t Available diclofenac 1 % topical gel APPLY 2 GRAMS TOPICALL Y TO THE AFFECTED AREA FOUR TIMES DAILY active Not Available Not Available No t Available Qutenza 8 % topical kit Patient will bring kit to the office 12/30 completed Not Available Not Available Not Available BD Ultra-Fine Verenice Pen Needle 32 gauge x 5/32 DIRECTED FOUR TIMES DAILY active Not Available Not Available No t Available Xarelto 20 mg tablet TAKE 1 TABLET BY MOUTH EVERY DAY WITH FOOD 11/30 completed Not Available Not Available Not Available Victoza 2-Jose 0.6 mg/0.1 mL (18 mg/3 mL) subcutaneo us pen injector INJECT 1.8MG UNDER THE SKIN EVERY DAY 07/16 completed Not Available Not Available Not Available BD Insulin Syringe Ultra-Fine 0.3 mL 31 gauge x 5/16 USE FOR INSULIN INJECTIO N FOUR TIMES DAILY active Not Available Not Available No t Available Spiriva Respimat 2.5 mcg/actuat ion solution for inhalation INHALE 2 PUFFS BY MOUTH DAILY active Not Available Not Available No t Available Incruse Ellipta 62.5 mcg/actuat ion powder for inhalation TAKE 1 PUFF INHALED EVERY 24 HOURS active Not Available Not Available No t Available Aspercreme (lidocaine ) 4 % topical patch active Not Available Not Available Not Available Lucinda DVT-PE Treatment 30-Day Starter 5 mg (74 tablets) in dose pack TAKE 2 TABLETS TWICE DAILY FOR 7 DAYS THEN TAKE 1 TABLET TWICE DAILY FOR 23 DAYS 11/30 completed Not Available Not Available Not Available roflumilas t 250 mcg tablet TAKE 1 TABLET BY MOUTH DAILY active Not Available Not Available No t Available Dexcom G6 Insurance Verification Rep USE DIRECTED active Not Available Not Available No t Available Dexcom G6 Transmitte r device USE DIRECTED active Not Available Not Available No t Available FreeStyle Lai 14 Day Sensor kit CHANGE EVERY 2 WEEKS active Not Available Not Available No t Available Baqsimi 3 mg/actuati on nasal spray USE 1 SPRAY NASALLY ONE TIME active Not Available Not Available No t Available CeQur Simplicity 2 unit device active Not Available Not Available Not Available FreeStyle Lai 2 [place] active Not Available Not Available Not Available Breztri Aerosphere 160 mcg-9mcg-4 .8mcg/actu ation HFA aerosol inhaler INHALE 2 PUFFS BY MOUTH TWICE DAILY active Not Available Not Available No t Available Trelegy Ellipta 200 mcg-62.5 mcg-25 mcg powder for inhalation INHALE 1 PUFF BY MOUTH DAILY active Not Available Not Available No t Available Gemtesa 75 mg tablet TAKE 1 TABLET BY MOUTH EVERY DAY active Not Available Not Available No t Available BinaxNOW COVID-19 Ag Self Test kit TEST DIRECTED TODAY active Not Available Not Available No t Available Paxlovid 300 mg (150 mg x 2)-100 mg tablets in a dose pack TK 2 NIRMATRE LVIR TS AND 1 RITONAVI R T TOGETHER PO BID FOR 5 DAYS 12/06 completed Not Available Not Available Not Available Mounjaro 5 mg/0.5 mL subcutaneo us pen injector INJECT 5 MG SUBCUTAN EOULY EVERY WEEK active Not Available Not Available No t Available Mounjaro 2.5 mg/0.5 mL subcutaneo us pen injector ADMINIST ER 2.5 MG UNDER THE SKIN EVERY WEEK active Not Available Not Available No t Available Dexcom G7 Sensor device APPLY DIRECTED AND CHANGE EVERY 10 DAYS active Not Available Not Available No t Available Vitals Date Recorded Body height Heart rate Oxygen saturation Oxygen saturation in Arterial blood by Pulse oximetry Body mass index (BMI) Body weight Systolic blood pressure Diastolic blood pressure Provider Name and Address Organization Details Last Updated DateTime 4 152.4 cm 94 /min 96 % 96 % 39.1 kg/m2 87513.4 7 g 143 mm[Hg] 65 mm[Hg] Lesa jaimes MD [facility] , [address], [place], [address], [place] [facility] 4 10:00:38 Date Recorded Body height Heart rate Oxygen saturation Oxygen saturation in Arterial blood by Pulse oximetry Systolic blood pressure Diastolic blood pressure Provider Name and Address Organization Details Last Updated DateTime 4 152.4 cm 93 /min 94 % 94 % 168 mm[Hg] 59 mm[Hg] Grace Queen [place] - [facility] 4 10:50:41 Date Recorded Body height Oxygen saturation Oxygen saturation in Arterial blood by Pulse oximetry Inhaled oxygen flow rate Heart rate Body mass index (BMI) Body weight Systolic blood pressure Diastolic blood pressure Provider Name and Address Organization Details Last Updated DateTime 4 152.4 cm 99 % 99 % 2.5 L/min 87 /min 38.5 kg/m2 96694.7 g 108 mm[Hg] 85 mm[Hg] Dulce christianson [place] - [facility] 4 11:33:53 Date Recorded Body height Heart rate Oxygen saturation Oxygen saturation in Arterial blood by Pulse oximetry Systolic blood pressure Diastolic blood pressure Provider Name and Address Organization Details Last Updated DateTime 4 152.4 cm 78 /min 96 % 96 % 138 mm[Hg] 66 mm[Hg] Dulce christianson [place] - [facility] 4 13:25:51 Date Recorded Body height Heart rate Oxygen saturation Oxygen saturation in Arterial blood by Pulse oximetry Systolic blood pressure Diastolic blood pressure Provider Name and Address Organization Details Last Updated DateTime 4 152.4 cm 88 /min 96 % 96 % 125 mm[Hg] 68 mm[Hg] Dulce christianson [place] - [facility] 4 14:37:48 Social History Question Answer Notes LastModified by Organizat ion Details LastModified Time Tobacco Smoking Status Former Smoker Not Available [employer] 12/20/2019 03:16:12 Are You Currently Employed? No [id number] Information not available 12/20/2019 Education 12 [email or web address] Information not available 01/26/2011 What Is Your Occupation? DIsabled Social Security Disability [id number] Information not available 12/20/2019 Live Alone Or With Others? With Others Terrell Information not available 12/21/2010 Marital Status [email or web address] Information not available 01/26/2011 Sex: Unknown Functional Status None recorded. Mental Status None recorded. Family History Relationship Description Onset Age of this Age Resolved Age Notes LastModified by Organization Details LastModified Time Father Malignant neoplastic disease 96 previo usly record ed as Cancer [email or web address] [id number] Not available 11/25/2012 03:01:59 Father Diabetes mellitus previo usly record ed as Diabet es [email or web address] [id number] Not available 11/25/2012 03:01:59 Father Hypertensive disorder previo usly record ed as Hypert ension [email or web address] [id number] Not available 11/25/2012 03:01:59 Mother Malignant neoplastic disease 70 Breast (previ ously record ed as Cancer ) [email or web address] [id number] Not available 11/25/2012 03:01:59 Medical History Condition Response Anxiety Disorder Y Diabetes Y Neuropathy/Neuralgia Y Arthritis N Asthma Y COPD Y Depression Y Headache Y GERD/Reflux Y Fibromyalgia Y Hypertension Y Gynecological HistoryNo gynecological history recorded. Obstetrics History GPAL:G 0 P 0 0 0 0 Past Encounters Encounter ID Performer Location Encounter Start Date Encounter Closed Date Diagnosis/Indication Diagnosis SNOMED-CT Code Diagnosis ICD10 Code Diagnosis Note [id number] [facility] [address] [place] [address] 12/21/2010 14:06:59 12/22/2010 09:40:34 [id number] [facility] [place] [place] [address] [place] [address] 12/27/2010 13:18:02 12/27/2010 15:06:30 [id number] Klarissa [facility]burn [facility] [address] [place] [address] 02/16/2011 13:04:02 02/16/2011 16:16:31 [id number] [facility] [place] [address] [place] [address] 03/10/2011 09:37:06 03/10/2011 10:39:44 [id number] [facility] [address] [place] [address] 04/05/2011 13:01:46 04/05/2011 14:47:42 [id number] [facility] [address] [place] [address] 06/17/2011 10:08:59 06/18/2011 13:15:27 [id number] [facility] [address] [place] [address] 11/07/2012 10:48:11 11/07/2012 15:59:02 [id number] [facility] [address] [place] [address] 11/19/2012 12:51:36 11/19/2012 16:05:42 [id number] Klarissa Wilburn [facility] [address] [place] [address] 12/24/2012 14:34:44 12/24/2012 15:27:26 Lumbosacral spondylosis without myelopathy 06639881 Mononeurit is of upper limb 28044439 Muscle pain 71468384 Lumbosacra l radiculitis 12400377 Displaceme nt of lumbar intervertebral disc without myelopathy 53540790 [id number] [facility] [address] [place] [address] 03/18/2013 13:07:26 03/19/2013 14:03:02 Lumbosacral spondylosis without myelopathy 52846813 Mononeurit is of upper limb 24964768 Muscle pain 71201341 Displaceme nt of lumbar intervertebral disc without myelopathy 33799993 Lumbosacra l radiculitis 10526799 Interverte bral disc disorder 01346194 [id number] Lesa Marie MD PAIN OFFICE [address] [place] [address] 05/16/2019 13:54:58 05/16/2019 16:19:59 Intercostal post-herpetic neuralgia 244389618 B02.29 [id number] Lesa Marie MD PAIN OFFICE [address] [place] [address] 02/04/2021 13:31:51 02/15/2021 13:47:06 Inflammation of joint of shoulder region 524441205 M13.819 M13.812 Intercosta l post-herpetic neuralgia 550981157 B02.29 Lumbosacra l radiculitis 13748209 M54.17 Displaceme nt of lumbar intervertebral disc without myelopathy 01826544 M51.26 [id number] Lesa Marie MD PAIN OFFICE [address] [place] [address] 12/30/2021 14:38:15 12/30/2021 16:43:11 Trochanteric bursitis of right hip 7129668308 60616 M70.61 [id number] Lesa Marie MD [facility] [address] [place] [address] 01/19/2022 10:09:37 01/19/2022 13:45:49 Trochanteric bursitis of right hip 2964096431 43007 M70.61 [id number] Lesa Marie MD PAIN OFFICE [address] [employer] [facility] [place] [address] 02/17/2022 11:28:41 02/17/2022 13:57:15 Trochanteric bursitis of right hip 2968798505 64379 M70.61 [id number] Lesa Marie MD [facility] [address] [employer] [place] [facility] [place] [address] 04/26/2022 10:47:04 04/26/2022 14:41:34 Trochanteric bursitis of left hip 7193260456 06557 M70.62 [id number] Lesa Marie MD PAIN OFFICE [address] [employer] [address] [place] [address] [place] [address] 11/30/2022 14:21:06 12/01/2022 11:16:50 Subacromial bursitis of right shoulder 4627915228 851550 M75.51 Inflammati on of joint of shoulder region 306831959 M13.812 M13.811 [id number] Lesa Marie MD PAIN OFFICE [address] [employer] [facility] [address] [place] [address] 12/05/2022 11:36:36 12/05/2022 13:17:19 Subacromial bursitis of right shoulder 7214306310 600133 M75.51 Inflammati on of joint of shoulder region 264025922 M13.812 M13.811 [id number] Lesa Marie MD PAIN OFFICE [address] [place] [address] 12/12/2022 11:28:38 12/13/2022 11:15:40 Subacromial bursitis of right shoulder 8451112709 449060 M75.51 Inflammati on of joint of shoulder region 105100134 M13.812 M13.811 Lumbosacra l radiculopathy 3243770 M54.17 Degenerati on of lumbar intervertebral disc 83499890 M51.36 [id number] Lesa Marie MD PAIN OFFICE [address] [employer] [facility] [place] [address] 05/18/2023 09:54:41 05/18/2023 14:20:26 Lumbosacral radiculitis 22327923 M54.17 Displaceme nt of lumbar intervertebral disc without myelopathy 87436016 M51.26 Subacromia l bursitis of right shoulder 6715005292 659308 M75.51 Inflammati on of joint of shoulder region 423160140 M13.812 M13.811 Lumbosacra l radiculopathy 2757800 M54.17 Degenerati on of lumbar intervertebral disc 22644009 M51.36 [id number] Lesa Marie MD PAIN OFFICE [email or web address] [facility] [place] [address] 06/20/2023 10:26:03 06/20/2023 15:35:35 Lumbosacral radiculitis 12969222 M54.17 Displaceme nt of lumbar intervertebral disc without myelopathy 28793082 M51.26 Subacromia l bursitis of right shoulder 9839576248 528947 M75.51 Inflammati on of joint of shoulder region 421507916 M13.812 M13.811 Lumbosacra l radiculopathy 9792262 M54.17 Degenerati on of lumbar intervertebral disc 28987210 M51.36 [id number] Lesa Marie MD PAIN OFFICE [address] [email or web address] [address] 07/17/2023 11:21:50 07/17/2023 13:39:13 Subacromial bursitis of right shoulder 8237134222 795640 M75.51 Inflammati on of joint of shoulder region 328629994 M13.812 M13.811 [id number] Lesa Marie MD PAIN OFFICE [address] [email or web address] [address] 12/07/2023 12:31:09 12/08/2023 10:25:28 Subacromial bursitis of right shoulder 0482020848 472897 M75.51 Inflammati on of joint of shoulder region 166173967 M13.812 M13.811 [id number] Lesa Marie MD PAIN OFFICE [email or web address] [facility] [place] [address] 02/08/2024 14:33:02 02/08/2024 16:19:44 Subacromial bursitis of right shoulder 1893906755 968605 M75.51 Inflammati on of joint of shoulder region 043170797 M13.812 M13.811 Health Concerns Section Related Observation LastModified by Organization Detai ls LastModified Time None Recorded Concern Status LastModified by Organization Details LastModified Time None Recorded Advance Directives Directive None Recorded Payers Encounter Date Sequence Insurance Name Policy Number Policy Black[place] Covered Member ID Blackwood Member ID Guarantor Name 05/18/2023 1 [facility] [employer] - DOS ON OR AFTER 2022 - ONE CARE (MEDICARE REPLACEMENT/ADV ANTAGE - HMO) Madeleine Darien [id number] Madeleine Darien 06/20/2023 1 [facility] [employer] - DOS ON OR AFTER 2022 - ONE CARE (MEDICARE REPLACEMENT/ADV ANTAGE - HMO) Madeleine Ledezma [id number] Madeleine Darien 07/17/2023 1 [facility] - DOS ON OR AFTER 2022 - ONE CARE (MEDICARE REPLACEMENT/ADV ANTAGE - HMO) Madeleine Ledezma [id number] Madeleine Darien 12/07/2023 1 [facility] - DOS ON OR AFTER 2022 - ONE CARE (MEDICARE REPLACEMENT/ADV ANTAGE - HMO) Madeleine Ledezma [id number] Madeleine Darien 02/08/2024 1 [facility] - DOS ON OR AFTER 2022 - ONE CARE (MEDICARE REPLACEMENT/ADV ANTAGE - HMO) Madeleine Ledezma [id number] Madeleine Darien Notes Date Note Type Note Provider Name and Address Organization Details Recorded Time 05/18/2023 text/html She is complaini ng of low back pain radiating into both lower extremities. MRI Lumbar spine done in 04/2022 shows multilevel degenerative changes of the lumbar spine with central canal and foraminal narrowing worse at L4-5 level. She is using a walker at home. She has no history of bladder or bowel incontinence. She had home physical therapy for 8 weeks and felt it helped a little bit. She has trialed an injection at [facility] which did not help. She had a lumbar epidural steroid injection in 2013 which helped for years. She states the steroid injections increase her blood glucose levels but she is able to adjust with insulin. Lesa Marie MD [address] , [address], [place], [address], [place] [facility] 05/19/2023 08:56:55 06/20/2023 text/html She is here for a trial of lumbar epidural steroid injection under fluoroscopic guidance. Lesa Marie MD [address] , [address], [place], [address], [place] [facility] 06/20/2023 16:11:05 07/17/2023 text/html She is here for a right shoulder steroid injection under ultrasound guidance Lesa Marie MD [address] [facility] , [address], [place], [address], [place] [facility] 07/17/2023 15:26:06 12/07/2023 text/html She is here for a right shoulder steroid injection under ultrasound guidance. She reports an infection in her right finger for which she is on antibiotics . The finger appears to be infected. She has also had recent hospitalization for covid but feels she is much improved now. Lesa Marie MD [address] , [address], [place], [address], [place] [facility] 12/08/2023 11:34:53 02/08/2024 text/html She is here for a bilateral shoulder steroid injection under ultrasound guidance Lesa Marie MD [address] , [address], [place], [address], [place] [facility] 02/09/2024 08:57:46 OBGyn Episode No OBEpisode recorded.
--- OUTSIDE RECORDS SUMMARY | 2024-04-08 14:57 | XMS_ITS ---
Author Organization [facility] Address Unknown Allergies, Adverse Reactions, Alerts Substance Reaction Status Noted Date Resolved Date Latex active 03/01/2022 Aspirin active 03/01/2022 Problems Problem Status Start Date End Date OTHER LACK OF COORDINATION (Primary) (R27.8 - ICD-10-C M) ACTIVE 03/01/2022 REPEATED FALLS (R29.6 - ICD-10-CM) ACTIVE 2021 UNSPECIFIED ASTHMA, UNCOMPLICATED (J45.909 - ICD-10-CM ) ACTIVE 03/04/2022 Encounters Encounter Performer Performer Role Encounter Diagnoses Location Date Discharge - Left against medical advice, or discontinued care - Home - [facility] 2 12:59 pm EST - 2 12:59 pm EST Immunizations Vaccine Date Influenza 02/18/2022 12:00 am EST SARS-COV-2 (COVID-19) 06/14/2020 12:00 a m EDT SARS-COV-2 (COVID-19) 05/15/2020 12:00 a m EST Pfizer Covid-19 Booster (SARS-COV-2) vac cine 04/16/2021 12:00 am EST Social History
--- OUTSIDE RECORDS SUMMARY | 2024-04-08 14:57 | XMS_ITS | Data Portability ---
Author Organization [facility] Address [address] [place] [id number] Care Team Providers Care Rag Cutting Machine Feeder Name Role Phone [facility] Referring Provider [phone] Assessment Encounter Date Assessment Date Assessment LastModified by Organization Details LastModified Time 04/25/2023 04/25/2023 I have reviewed and agree with the assessment and plan as documented by the powder coat painter. I provided real-time medical direction for this encounter and was immediately available to provide additional phone-based assistance as needed. 72F with COPD presenting with 2-3 days of worsening SOB, Cough, wheezing. No fever. No sick contacts. COVID/Flu negative. Hx of last COPD exacerbation ~6 months ago. On oxygen, saturating 98% on baseline 2L. Diffuse wheezing on lung exam. Suspect COPD exacerbation, recommend duoneb x1 prednisone x 5 days, doxycycline. Red flags and return precautions discussed. paysola Not available 04/25/2023 17:02:43 Plan of Treatment Reminders Order Date Submit Date Provider Last Modified By Organization Details Last Modified Time Details Appointments None recorded. Lab None recorded. Referral None recorded. Procedures None recorded. Surgeries None recorded. Imaging None recorded. Medication Orders prednisone 50 mg tablet 2023 024 [facility] Not available 17:02:45 doxycycline hyclate 100 mg tablet 2023 024 [id number], [address], [place], [phone], 17:02:53 Patient TargetsNo targets recorded. Patient InstructionsNo instructions recorded. Reason for Referral None Reported. Medical Equipment None Reported. Allergies Allergen ID Allergen Name Allergen Category Reaction Reaction Severity Criticality Documentation Date Start Date Code Code System Note Provider Name and Address Organization Details Recorded Time 4392 latex environme nt,medica tion Not available Not available Not available 01/02/2024 75082 91 RxNorm Not Available [facility] - [facility] 4 03:47:12 8847 Product containin g penicilli n and antibioti c (product) medicatio n Not available Not available Not available 01/02/2024 46004 05 [facility]12 Medications Name Sig Start Date Stop Date Status Note LastModified by Organization Details LastModified Time fluconazole 100 mg tablet TAKE 1 TABLET BY MOUTH DAILY FOR 10 DAYS active Not Available Not Available Not Available atorvastatin 40 mg tablet TAKE 1 TABLET BY MOUTH EVERY DAY active Not Available Not Available No t Available nystatin 100,000 unit/mL oral suspension SWISH AND SWALLOW 1 ML BY MOUTH TWICE DAILY active Not Available Not Available Not Available prednisone 10 mg tablet TAKE 4 TABLETS DAILY FOR 2 DAYS THEN 3 TABLETS DAILY FOR 2 DAYS THEN 2 TABLETS DAILY FOR 2 DAYS THEN 1 TABLET DAILY FOR 2 DAYS active Not Available Not Available No t Available gabapentin 600 mg tablet TAKE 1 TABLET BY MOUTH TWICE A DAY active Not Available Not Available No t Available doxycycline hyclate 100 mg capsule TAKE 1 CAPSULE BY MOUTH TWICE DAILY active Not Available Not Available No t Available cefuroxime axetil 250 mg tablet TAKE 1 TABLET BY MOUTH TWICE DAILY FOR 7 DAYS active Not Available Not Available No t Available donepezil 5 mg tablet TAKE 1 TABLET BY MOUTH EVERY DAY AT BEDTIME active Not Available Not Available No t Available ketoconazole 2 % shampoo APPLY TO SCALP 10 MINUTES BEFORE SHOWERING THEN LATHER AND FOLLOW WITH GENTLE SHAMPOO AND CONDITIONER 1-2 TIMES PER WEEK active Not Available Not Available No t Available clindamycin HCl 300 mg capsule TAKE 1 CAPSULE BY MOUTH EVERY 6 HOURS UNTIL GONE active Not Available Not Available N ot Available albuterol sulfate 2.5 mg/3 mL (0.083 %) solution for nebulization INHALE 3ML VIA NEBULIZER EVERY 4-6 HOURS NEEDED FOR WHEEZING active Not Available Not Available No t Available trazodone 50 mg tablet TAKE 1 TABLET BY MOUTH AT BEDTIME NEEDED FOR SLEEP active Not Available Not Available No t Available ibuprofen 800 mg tablet TAKE 1 TABLET BY MOUTH EVERY 8 HOURS NEEDED FOR PAIN active Not Available Not Available No t Available fluconazole 150 mg tablet TAKE 1 TABLET BY MOUTH ONCE active Not Available Not Available N ot Available meloxicam 15 mg tablet TAKE 1 TABLET BY MOUTH EVERY DAY active Not Available Not Available No t Available FreeStyle Lancets 28 gauge DIRECTED active Not Available Not Available Not Available prednisone 20 mg tablet TAKE 1 TABLET BY MOUTH EVERY DAY active Not Available Not Available No t Available clonazepam 0.5 mg tablet TAKE 1 TABLET BY MOUTH TWICE DAILY NEEDED FOR ANXIETY active Not Available Not Available No t Available nystatin 500,000 unit tablet TAKE 1 TABLET BY MOUTH 3 TIMES A DAY FOR 10 DAYS active Not Available Not Available Not Available tramadol 50 mg tablet TAKE 1 TABLET BY MOUTH FOUR TIMES DAILY NEEDED active Not Available Not Available No t Available acetaminophe n 500 mg tablet TAKE 1 TABLET BY MOUTH EVERY 6 HOURS NEEDED FOR FEVER OR FOR PAIN active Not Available Not Available No t Available amoxicillin 500 mg tablet TAKE 4 TABLETS BY MOUTH 1 HOUR PRIOR TO LUMBAR INJECTION active Not Available Not Available No t Available ketorolac 0.5 % eye drops INSTILL 1 DROP INTO THE AFFECTED EYE THREE TIMES DAILY DIRECTED STARTING 2 DAYS PRIOR TO SURGERY. TAPER DIRECTED active Not Available Not Available No t Available oxycodone-ac etaminophen 5 mg-325 mg tablet TAKE 1 TABLET BY MOUTH EVERY 4 HOURS NEEDED FOR PAIN. DO NOT OPERATE HEAVY MACHINERY UNDER THE INFLUENCE active Not Available Not Available No t Available lorazepam 0.5 mg tablet TAKE 1 TABLET BY MOUTH THREE TIMES DAILY NEEDED active Not Available Not Available No t Available cephalexin 500 mg capsule TAKE 1 CAPSULE BY MOUTH THREE TIMES A DAY active Not Available Not Available Not Available buspirone 30 mg tablet TAKE 1 TABLET BY MOUTH TWICE DAILY active Not Available Not Available No t Available metformin 1,000 mg tablet TAKE 1 TABLET BY MOUTH TWICE DAILY active Not Available Not Available No t Available nystatin 100,000 unit/gram topical cream APPLY 1 APPLICATION EXTERNALLY TWICE A DAY active Not Available Not Available Not Available buspirone 10 mg tablet TAKE 1 TABLET BY MOUTH TWICE A DAY FOR 90 DAYS active Not Available Not Available No t Available clotrimazole -betamethaso ne 1 %-0.05 % topical cream active Not Available Not Available Not Available lisinopril 10 mg tablet TAKE 1 TABLET BY MOUTH EVERY DAY active Not Available Not Available No t Available prednisone 50 mg tablet Take 1 tablet every day by oral route in the morning for 5 days. 2023 active Not Available Not Available Not Avai lable lidocaine 5 % topical patch APPLY 1 PATCH TOPICALLY DAILY FOR 30 DAYS. LEAVE ON MOST PAINFUL AREA FOR UP TO 12 HOURS active Not Available Not Available Not Available gabapentin 300 mg capsule TAKE 1 CAPSULE BY MOUTH AT BEDTIME active Not Available Not Available No t Available omeprazole 20 mg capsule,yared yed release TAKE 1 CAPSULE BY MOUTH EVERY DAY active Not Available Not Available No t Available montelukast 10 mg tablet TAKE 1 TABLET BY MOUTH EVERY DAY IN THE EVENING active Not Available Not Available No t Available lisinopril 5 mg tablet TAKE 1 TABLET BY MOUTH EVERY DAY active Not Available Not Available No t Available furosemide 20 mg tablet TAKE 1 TABLET BY MOUTH EVERY DAY FOR 10 DAYS active Not Available Not Available No t Available nystatin 100,000 unit/gram topical powder APPLY EXTERNALLY TO THE AFFECTED AREA UNDER BREASTS TWICE DAILY active Not Available Not Available Not Available lorazepam 1 mg tablet TAKE 1 TABLET BY MOUTH EVERY DAY AT BEDTIME NEEDED active Not Available Not Available No t Available azelastine 137 mcg (0.1 %) nasal spray SPRAY 2 SPRAYS TWICE A DAY active Not Available Not Available Not Available ibuprofen 600 mg tablet TAKE 1 TABLET BY MOUTH THREE TIMES DAILY NEEDED active Not Available Not Available No t Available cefuroxime axetil 500 mg tablet TAKE 1 TABLET BY MOUTH TWICE DAILY FOR 7 DAYS active Not Available Not Available No t Available zolpidem 10 mg tablet TAKE 1 TABLET BY MOUTH EVERY DAY AT BEDTIME NEEDED FOR INSOMNIA active Not Available Not Available No t Available methylpredni solone 4 mg tablets in a dose pack TAKE 6 TABLETS ON DAY 1 DIRECTED ON PACKAGE AND DECREASE BY 1 TAB EACH DAY FOR A TOTAL OF 6 DAYS active Not Available Not Available No t Available albuterol sulfate HFA 90 mcg/actuatio n aerosol inhaler INHALE 2 PUFFS BY MOUTH FOUR TIMES DAILY active Not Available Not Available Not Available betamethason e dipropionate 0.05 % lotion active Not Available Not Available Not Available doxycycline hyclate 100 mg tablet TAKE 1 TABLET BY MOUTH TWICE DAILY FOR 10 DAYS active Not Available Not Available No t Available ipratropium bromide 21 mcg (0.03 %) nasal spray INSTILL 2 SPRAYS IN EACH NOSTRIL TWICE DAILY active Not Available Not Available Not Available naproxen 500 mg tablet TAKE 1 TABLET BY MOUTH TWICE DAILY FOR 10 DAYS NEEDED FOR PAIN active Not Available Not Available No t Available amoxicillin 875 mg-potassium clavulanate 125 mg tablet TAKE 1 TABLET BY MOUTH TWICE DAILY FOR 10 DAYS active Not Available Not Available No t Available buspirone 15 mg tablet TAKE 1 TABLET BY MOUTH TWICE DAILY active Not Available Not Available No t Available oxycodone 5 mg tablet TAKE 1 TABLET BY MOUTH 3 TIMES A DAY NEEDED FOR PAIN active Not Available Not Available No t Available ciclopirox 0.77 % topical cream APPLY TOPICALLY TO THE AFFECTED AREA TWICE DAILY active Not Available Not Available No t Available Novolog Mix 70-30 FlexPen U-100 Insulin 100 unit/mL subcutaneous pen INJECT 20 UNITS PER SLIDING SCALE active Not Available Not Available No t Available Novolog FlexPen U-100 Insulin aspart 100 unit/mL (3 mL) subcutaneous active Not Available Not Available Not Available cyclobenzapr ine 5 mg tablet TAKE 1 TABLET BY MOUTH THREE TIMES DAILY FOR 7 DAYS NEEDED FOR BACK PAIN active Not Available Not Available No t Available aripiprazole 5 mg tablet TAKE 1 TABLET BY MOUTH EVERY DAY active Not Available Not Available No t Available nitrofuranto in monohydrate/ macrocrystal s 100 mg capsule TAKE 1 CAPSULE BY MOUTH EVERY 12 HOURS WITH FOOD FOR 7 DAYS active Not Available Not Available N ot Available duloxetine 60 mg capsule,yared yed release TAKE 1 CAPSULE BY MOUTH EVERY DAY active Not Available Not Available No t Available BD Ultra-Fine Mini Pen Needle 31 gauge x 3/16 USE DIRECTED TO INJECT INSULIN FOUR TIMES DAILY active Not Available Not Available No t Available darifenacin ER 15 mg tablet,exten ded release 24 hr TAKE 1 TABLET WITH LIQUID ORALLY ONCE A DAY active Not Available Not Available No t Available pregabalin 150 mg capsule TAKE 1 CAPSULE BY MOUTH EVERY DAY FOR 90 DAYS active Not Available Not Available No t Available chlorhexidin e gluconate 0.12 % mouthwash TAKE 1 CAP,SWISH, HOLD FOR 2 MINS THEN SPIT 3 TIMES A DAY AFTER MEALS active Not Available Not Available Not Available BD Ultra-Fine Short Pen Needle 31 gauge x 5/16 DIRECTED TO INJECT FOUR TIMES DAILY active Not Available Not Available No t Available aripiprazole 2 mg tablet TAKE 1 TABLET BY MOUTH EVERY DAY active Not Available Not Available No t Available Symbicort 160 mcg-4.5 mcg/actuatio n HFA aerosol inhaler INHALE 2 PUFFS BY MOUTH TWICE DAILY active Not Available Not Available No t Available peg 3350-electro lytes 236 gram-22.74 gram-6.74 gram-5.86 gram solution MIX AND DRINK 240ML BY MOUTH EVERY 10 MINUTES UNTIL FINISHED. USE DIRECTED. REFER TO PREP INSTRUCTION S GIVEN/KASSY D TO YOU FROM OFFICE active Not Available Not Available Not Available FreeStyle Lite Strips TEST SUGARS 3 TIMES A DAY BEFORE MEALS AND AT BEDTIME active Not Available Not Available N ot Available Lantus Solostar U-100 Insulin 100 unit/mL (3 mL) subcutaneous pen INJECT 54 UNITS EVERY DAY active Not Available Not Available No t Available diclofenac 1 % topical gel APPLY 2 GRAMS TOPICALLY TO THE AFFECTED AREA FOUR TIMES DAILY active Not Available Not Available Not Available Xarelto 20 mg tablet TAKE 1 TABLET BY MOUTH EVERY DAY WITH FOOD active Not Available Not Available No t Available Victoza 2-Jose 0.6 mg/0.1 mL (18 mg/3 mL) subcutaneous pen injector INJECT 1.8MG UNDER THE SKIN EVERY DAY active Not Available Not Available No t Available Spiriva Respimat 2.5 mcg/actuatio n solution for inhalation INHALE 2 PUFFS BY MOUTH DAILY active Not Available Not Available Not Available Incruse Ellipta 62.5 mcg/actuatio n powder for inhalation TAKE 1 PUFF INHALED EVERY 24 HOURS active Not Available Not Available No t Available Eliquis DVT-PE Treatment 30-Day Starter 5 mg (74 tablets) in dose pack TAKE 2 TABLETS TWICE DAILY FOR 7 DAYS THEN TAKE 1 TABLET TWICE DAILY FOR 23 DAYS active Not Available Not Available Not Available roflumilast 250 mcg tablet TAKE 1 TABLET BY MOUTH DAILY active Not Available Not Available Not Available Dexcom G6 Automatic Fancy Machine Operator USE DIRECTED active Not Available Not Available No t Available Dexcom G6 Transmitter device USE DIRECTED active Not Available Not Available No t Available Baqsimi 3 mg/actuation nasal spray USE 1 SPRAY NASALLY ONE TIME active Not Available Not Available No t Available Breztri Aerosphere 160 mcg-9mcg-4.8 mcg/actuatio n HFA aerosol inhaler INHALE 2 PUFFS BY MOUTH TWICE DAILY active Not Available Not Available No t Available Trelegy Ellipta 200 mcg-62.5 mcg-25 mcg powder for inhalation INHALE 1 PUFF BY MOUTH DAILY active Not Available Not Available Not Available Gemtesa 75 mg tablet TAKE 1 TABLET BY MOUTH EVERY DAY active Not Available Not Available No t Available BinaxNOW COVID-19 Ag Self Test kit TEST DIRECTED TODAY active Not Available Not Available No t Available Paxlovid 300 mg (150 mg x 2)-100 mg tablets in a dose pack TK 2 NIRMATRELVI R TS AND 1 RITONAVIR T TOGETHER PO BID FOR 5 DAYS active Not Available Not Available No t Available Dexcom G7 Sensor device CHANGE EVERY 10 DAYS DIRECTED active Not Available Not Available No t Available Vitals Date Recorded Oxygen saturation Oxygen saturation in Arterial blood by Pulse oximetry Inhaled oxygen flow rate Respiratory rate Body weight Body temperature Heart rate Body height Systolic blood pressure Diastolic blood pressure Provider Name and Address Organization Details Last Updated DateTime 4 98 % 98 % 2 L/min 16 /min 75738.4 g 97.2 [degF] 73 /min 152.4 cm 101 mm[Hg] 67 mm[Hg] Not Available [facility] - production 4 16:58:38 Social History None recorded. Functional Status None recorded. Mental Status None recorded. Family History Nothing Reported. Medical History No medical history recorded. Gynecological HistoryNo gynecological history recorded. Obstetrics History GPAL:G 0 P 0 0 0 0 Past Encounters Encounter ID Performer Location Encounter Start Date Encounter Closed Date Diagnosis/Indication Diagnosis SNOMED-CT Code Diagnosis ICD10 Code Diagnosis Note Elizabeth Phelps MD [facility] [address] [place] [phone] 04/25/2023 16:58:36 04/26/2023 13:01:34 Acute exacerbation of chronic obstructive pulmonary disease 663591938 J44.1 Health Concerns Section Related Observation LastModified by Organization Detai ls LastModified Time None Recorded Concern Status LastModified by Organization Details LastModified Time None Recorded Advance Directives Directive None Recorded Payers Encounter Date Sequence Insurance Name Policy Number Policy [employer] Covered Member ID [employer] Member ID Guarantor Name 04/25/2023 1 [facility] - DOS ON OR AFTER 2022 - DUAL ELIGIBLE - [employer] AND ONE [employer] (MEDICARE REPLACEMENT/ADV ANTAGE - HMO) Madeleine Ledezma [id number] Madeleine Ledezma Notes Date Note Type Note Provider Name and Address Organization Details Recorded Time 04/25/2023 text/html [facility] Nurse Triage Notes (April Aguila): Chief Complaints: Chest Pain, Shortness of Breath/Dyspnea, Headache, Fever/Chills, Cough PMH: Diabetes, Hypertension, COPD/Asthma Allergies: Latex, Penicillin Comments: Cough started 2 days ago. Productive cough with yellow sputum. Developed chest and back pain today with coughing. + chills and fatigue. Member on home 02 @ 2lpm. Speaking full sentences without difficulty. No sick contacts .................. .................. .................. .................. .................. .................. .................. ............... Brothel Keeper Note From Cory Pierce: Pt reports three days of mild CRUZ and cough producing yellow sputum. Pt has COPD, uses nebs q4h, last COPD exacerbation was approx 6 months ago. Pt denies SOB at rest, f/n/v/d. Pt is alert, NAD, speaking full sentences. Afebrile. Non focal neuro exam. Diffuse expiratory wheezing. Benign ABD exam. No LE edema. Rapid covid and flu negative. Pt? s sx seem c/w COPD exacerbation. Pt treated with a duoneb, prednisone 60 mg and doxycycline 100 mg. Pt instructed to f/u with PCP and to seek emergent medical care for new or worsening sx, which are reviewed with her. .................. .................. .................. .................. .................. .................. .................. ............... Disposition: Netta Phelps MD [address] [facility],[address], [place], [phone], [facility] 04/25/2023 17:52:09 OBGyn Episode No OBEpisode recorded.
== END 2024-04-08 14:52 | disposition home or self-care (01) ==
PROVIDERS: PCP Internal Medicine; Visit Provider Dietitian, Registered
DX: E11.9 Type 2 diabetes mellitus without complications (principal)

== ENCOUNTER → 2024-04-08 13:34 | Outpatient (BNVA) | payer OTHER, SELFPAY | PROVIDERS: PCP Internal Medicine; Visit Provider Dietitian, Registered | DX: E11.9 Type 2 diabetes mellitus without complications (principal); Z71.3 Dietary counseling and surveillance | CPT/HCPCS: 97803 ==

== ENCOUNTER 2024-04-23 11:03 | Inpatient (IN) | payer OTHER, SELFPAY ==
[2024-04-23] VITALS (26 sets, daily range): BP systolic 73–138; BP diastolic 33–99; PULSE 79–106; RESP 10–31; TEMP 36.2–36.8; O2SAT 95–100; BMI 40.1
--- NOTE | ~2024-04-23 | XR_ITS ---
EXAMINATION: XR CHEST CLINICAL INFORMATION: weakness COMPARISON: 01/03/2024 TECHNIQUE: Frontal view of the chest was obtained. FINDINGS: There is cardiomegaly. Mediastinal and hilar contours are normal. The lungs are clear bilaterally. No pneumothorax or effusion. Soft tissue calcification in the left breast. No additional soft tissue or bone abnormalities. XR/XR chest 1V IMPRESSION: Cardiomegaly. No active pulmonary disease. Electronically signed by: Timothy Duron MD 04/23/2024 01:37 PM EST
--- NOTE | ~2024-04-23 | XR_ITS ---
EXAMINATION: XR CHEST CLINICAL INFORMATION: post central line COMPARISON: Earlier same day at 12:20 PM TECHNIQUE: Frontal view of the chest was obtained. FINDINGS: Left central venous catheter has been placed, tip terminating in the distal SVC. The cardiac, hilar, and mediastinal contours are stable. Lungs demonstrate fine increased interstitial markings which could represent early CHF. No pneumothorax or effusion. Stable osseous and soft tissue structures. XR/XR chest 1V IMPRESSION: Left central venous catheter in good position. Possible development of minimal CHF. No pneumothorax. Electronically signed by: Timothy Duron MD 04/24/2024 07:59 AM [facility]
--- NOTE | ~2024-04-23 | CT_ITS ---
EXAMINATION: CT ABDOMEN AND PELVIS WITH CONTRAST CLINICAL INFORMATION: Status post lap band reversal 3 weeks ago. Leakage from the site. COMPARISON: January 04, 2024. TECHNIQUE: Multidetector volumetric images were obtained from the superior aspect of the liver through the pubic symphysis following administration 85 mL of Omnipaque 350 intravenous contrast. Sagittal and coronal reformatted images were obtained on the technologist's workstation. Oral contrast: No This CT examination was performed using dose optimization techniques as appropriate, variously including the following: *Automated exposure control *Adjustment of mA and/or kV according to patient size (this includes techniques or standardized protocols for targeted exams where dose is matched to indication/reason for exam; i.e. extremities or head) *Use of iterative reconstruction technique DLP: 737 mGy centimeter. FINDINGS: LUNG BASES: Patchy groundglass, lung bases. LIVER, GALLBLADDER, AND BILIARY TREE: Liver measures 15 cm. Punctate calcification right hepatic lobe. No gross focal enhancing mass. The main portal veins, hepatic veins and hepatic portion of the IVC are patent. No pericholecystic fluid collection or gallbladder wall thickening. Common bile duct measures 4 mm. PANCREAS: Punctate opacifications in the head of the pancreas. No focal mass. No peripancreatic fluid collection. No main pancreatic ductal dilatation. Punctate calcification in the body tail junction. SPLEEN: 6 cm. No focal lesion. ADRENAL GLANDS: No nodular lesions. KIDNEYS AND URETERS: No gross hydronephrosis. No nephrolithiasis. Subcentimeter hypodensities in the renal parenchyma. There is renal cortical thinning, bilaterally. Small appearance of the kidney. The right kidney is transverse rotated. BLADDER: Fluid-filled. GASTROINTESTINAL TRACT: Abundant stool within the large intestine. No intestinal obstruction pattern. No pneumoperitoneum. No ascites. No peripheral enhancing fluid collection in the peritoneal cavity. I cannot clearly identify the appendix. Status post removal of the gastric banding with the residual fluid density adjacent to the lesser curvature of the stomach which measures no more than 1.8 cm. ABDOMINAL WALL: There is an irregularly-shaped, 5 x 4 x 4 cm gas and fluid-filled attenuation with dystrophic calcifications in the right upper abdomen wall extending from a skin breakdown to the muscular plane without and during the properitoneal fat or the peritoneal cavity. Small fat-containing umbilical hernia. LYMPH NODES: No gross lymphadenopathy. VASCULAR: Mixed plaques throughout the abdominal aorta wall and iliac arteries the mesenteric arteries and the origin of the main renal arteries. Calcified plaques in the coronary arteries. Calcified plaques in the mitral valve. No aneurysm or dissection abdominal aorta. PELVIC VISCERA: Nonenlarged uterus. OSSEOUS STRUCTURES: Multilevel thoracolumbar spondylosis. Grade 1 anterolisthesis L4-5. Osteopenia versus osteoporosis. Bilateral neuroforamina stenosis at L4-5 and central spinal canal stenosis secondary to the anterolisthesis. CT/CT abdomen pelvis w IV con IMPRESSION: Approximately 4 cm Phlegmon versus abscess with skin laceration at the surgical site where the gastric bypass banding reservoir was located. 1.8 cm residual fluid density at the lesser sac region. Discussed with the physician executive sales assistant Hyacinth in the emergency department at 2:11 PM Fleischner guidelines were followed. Electronically signed by: Luis A Leahy MD 04/23/2024 02:31 PM [facility]
--- NOTE | 2024-04-23 11:46 | ECG_ITS ---
Test Reason : weakness Blood Pressure : */* mmHG Vent. Rate : 107 BPM Atrial Rate : 107 BPM P-R Int : 146 ms QRS Dur : 166 ms QT Int : 388 ms P-R-T Axes : 50 -76 32 degrees QTcB Int : 517 ms Sinus tachycardia Right bundle branch block Left anterior fascicular block Bifascicular block Abnormal ECG When compared with ECG of 03-Jan-2024 21:39, No significant changes seen Referred By: Hyacinth Santos Electronically Signed By: MARGARET KIM
--- NOTE | 2024-04-23 11:59 | ED_ITS ---
HPI - Weakness General Chief complaint: Weakness Stated complaint: weakness x 2 days Time Seen by Provider: 04/23/24 11:14 Source: patient, EMS, RN notes reviewed and old records reviewed Mode of arrival: EMS History of Present Illness ED Provider: Hyacinth Santos PA-C HPI Narrative: 73-year-old female with a past medical history PVD, CASSANDRA, COPD on 2L NC baseline, obesity, asthma, GERD, diabetes, s/p laparoscopic band removal on 03/13/2024 presenting to the ED complaining of generalized fatigue/weakness, chills, lightheadedness, abdominal pain, and abdominal rash x today. States she usually ambulates with walker however today was unable to ambulate secondary to generalized weakness. Denies cough, chest pain, shortness of breath, nausea/vomiting, diarrhea, dysuria/hematuria. Denies new medications/exposures. Denies rash being itchy Related Data Home Medications ?Medication ?Instructions ?Recorded ?Confirmed duloxetine 60 mg capsule,delayed 60 mg PO DAILY 02/06/20 03/11/24 release lisinopril 10 mg tablet 10 mg PO DAILY 02/06/20 03/11/24 donepezil 5 mg tablet 5 mg PO BEDTIME 11/06/20 03/11/24 Oxygen Home Use 01/18/22 03/08/24 acetaminophen 500 mg tablet 650 mg PO Q6H PRN fever or pain 02/28/22 03/11/24 (Tylenol Extra Strength) nebulizers 03/14/23 03/08/24 atorvastatin 40 mg tablet 40 mg PO DAILY 05/15/23 03/11/24 azelastine 137 mcg (0.1 %) nasal 1 spray intranasal BEDTIME PRN 10/23/23 03/08/24 spray Allergies tramadol 50 mg tablet 50 mg PO QID PRN Pain (Scale Score 10/23/23 03/11/24 1-3) vitamin B complex 1 cap PO DAILY 10/23/23 03/11/24 aripiprazole 15 mg tablet 15 mg PO DAILY 01/01/24 03/11/24 budesonide 160 mcg-glycopyr 9 2 inh inhalation BID COPD 01/04/24 03/11/24 mcg-formot 4.8 mcg/actuation HFA inhaler (Breztri Aerosphere) melatonin 10 mg tablet 10 mg PO BEDTIME PRN Insomnia 01/04/24 03/11/24 vibegron 75 mg tablet (Gemtesa) 75 mg PO DAILY 01/04/24 03/11/24 zolpidem 10 mg tablet 10 mg PO BEDTIME PRN Insomnia 01/04/24 03/11/24 buspirone 30 mg tablet 30 mg PO BID 01/05/24 03/11/24 fluticasone propionate 50 2 spray intranasal DAILY 01/05/24 03/11/24 mcg/actuation nasal spray,suspension lidocaine 5 % topical patch 1 patch topical DAILY PRN Pain 01/05/24 03/11/24 (Lidoderm) nystatin 100,000 unit/gram topical 1 appl topical BID-TID PRN Rash 01/05/24 03/11/24 powder (Nystop) nystatin 100,000 unit/mL oral 1 ml PO BID 01/05/24 03/13/24 suspension albuterol sulfate 2.5 mg/3 mL 2.5 mg inhalation Q4H PRN for 03/13/24 03/13/24 (0.083 %) solution for nebulization wheezing clonazepam 0.5 mg tablet 0.5 mg PO BID PRN Anxiety 03/13/24 03/13/24 insulin glargine 100 unit/mL (3 8 unit subcut DAILY PRN pump 03/13/24 03/13/24 mL) subcutaneous pen insulin glargine 100 unit/mL (3 15 unit subcut QAM 03/13/24 03/13/24 mL) subcutaneous pen metformin 1,000 mg tablet 1,000 mg PO BID 03/13/24 03/13/24 ammonium lactate 12 % lotion 1 appl topical DAILY 04/23/24 bolus insulin pump, 200 unit 2 04/23/24 unit bolus insulin patch pump, 200 unit, disposable (CeQur Simplicity) diabetic supplies, miscellan. 04/23/24 (CeQur Simplicity Casing Trimmer) tirzepatide 5 mg/0.5 mL 5 mg subcut QWEEK 04/23/24 subcutaneous pen injector (Hao) Previous Rx's ?Medication ?Instructions ?Recorded walker #1 ea 07/12/20 diabetic shoes #1 ea 09/12/22 blood-glucose meter,continuous #1 ea 11/29/22 (Dexcom G7 Sed Special Education Teacher) pen needle, diabetic 31 gauge x #100 ea 05/30/23 5/16 (BD Ultra-Fine Short Pen Needle) gabapentin 300 mg capsule 300 mg PO BEDTIME 30 days #30 caps 09/20/23 albuterol sulfate 90 mcg/actuation 2 puff PO QID PRN shortness of 11/26/23 aerosol inhaler breath or wheezing 90 days #3 ea montelukast 10 mg tablet 10 mg PO DAILY 90 days #90 tabs 11/26/23 blood-glucose meter (FreeStyle #1 ea 12/13/23 Lite Meter kit) lancets 28 gauge (FreeStyle #100 ea 12/13/23 Lancets) acetone (urine) test (Ketostix #50 ea 12/14/23 strips) blood sugar diagnostic (FreeStyle #100 ea 12/14/23 Lite Strips) sucralfate 100 mg/mL oral 10 ml PO BID #600 mL 01/08/24 suspension blood-glucose sensor (Dexcom G7 #3 ea 01/09/24 Sensor device) glucagon 3 mg/actuation nasal 3 mg intranasal ONCE PRN 01/10/24 spray (Baqsimi) unresponsive hypoglycemia 30 days #2 ea diabetic supplies, miscellan. #1 ea 01/18/24 (CeQur Simplicity Casing Trimmer) pen needle, diabetic 32 gauge x #100 ea 01/18/24 532 (BD Verenice 2nd Gen Pen Needle) insulin syringe-needle U-100 0.3 #150 ea 02/12/24 mL 31 gauge x 5/16 (BD Insulin Syringe Ultra-Fine) pantoprazole 40 mg tablet,delayed 40 mg PO DAILY@0630 #90 tabs 04/04/24 release diabetic supplies, miscellan. #1 ea 04/05/24 (CeQur Simplicity Casing Trimmer) Allergies Allergy/AdvReac Type Severity Reaction Status Date / Time aspirin [ASPIRIN] Allergy Intermediate GI UPSET, Verified 04/23/24 11:40 stomach pain latex [LATEX] Allergy Intermediate HIVES Verified 04/23/24 11:40 Review of Systems 2 Review of Systems: Yes all other systems are reviewed and are negative Constitutional: Constitutional: Reports as per HPI Neurologic: Denies Abnormal speech present PMFSH Past Medical History Attestation statement: The following information was validated with the patient. Source: old records reviewed Medical History Peripheral vascular disease Supplemental oxygen dependent GERD (gastroesophageal reflux disease) CASSANDRA (obstructive sleep apnea) Hypoglycemia associated with type 2 diabetes mellitus COPD exacerbation C. difficile enteritis COVID-19 DVT (deep venous thrombosis) Pulmonary hypertension Pulmonary emboli Acute on chronic respiratory failure with hypoxia and hypercapnia Chronic respiratory failure [place] (hard of hearing) PONV (postoperative nausea and vomiting) Post herpetic neuralgia Pneumonia Back pain Morbid obesity Chest crackles Cardiomegaly Asthma-COPD overlap syndrome Acute respiratory failure Hyperlipidemia Hypertension Diabetes Arnold-Chiari malformation Arthritis Fibromyalgia Cough CASSANDRA treated with BiPAP Asthma Sinusitis Surgical History Hx of eye surgery History of esophagogastroduodenoscopy (EGD) H/O colonoscopy Hx of laparoscopic gastric banding (~2009) H/O bilateral breast reduction surgery H/O brain surgery Family History Family History Mother HTN (hypertension) Breast cancer Father Primary cancer of bone marrow Social History Social History Household Members: Family Household Members Other:: granddaughter Housing: Apartment Are you a primary critical care specialist to a significant other at home: No Do you presently have visiting nurse or other home services: Yes ([employer] Monday- Monday) Unable to assess alcohol history related to: Unable to respond Alcohol intake: unknown Patient Tobacco Use Status: Former Tobacco user Tobacco use type: Cigarette Years Smoked: 15 +/- Smoked in Last 30 Days: No e-Cigarette/Vaping Use: Never Used Second Hand Smoke Exposure: No Use of substances other than those prescribed or required for medical reasons: No Advance Directives: Yes Advance Directives on File: Yes Advance Directives Date on File: 11/11/21 Do you have a plan to hurt others: No Plan service: No Physical Exam 2 Vital Signs: Vital Signs: Last Vital Signs Temp 98.1 F 04/23/24 11:35 Pulse 88 04/23/24 16:15 Resp 16 04/23/24 16:15 BP 109/40 L 04/23/24 16:15 Pulse Ox 98 04/23/24 16:15 O2 Del Method Nasal Cannula 04/23/24 16:15 O2 Flow Rate 2 04/23/24 16:15 Oxygen Flow Rate 2 04/23/24 11:35 BMI result Body Mass Index 40.1 Const: General: cooperative and no acute distress O rientation/consciousness: patient oriented x3 Limitations: no limitations HEENT: Head: Yes normal to inspection and Yes atraumatic Ears: hearing grossly normal bilaterally General nose exam: Normal external nose present Face and sinus: Yes normal facial exam Eyes: General: appearance normal, both eyes and all related structures EOM: EOMs intact bilaterally Neck: Neck: Yes normal visual inspection and Yes no meningeal signs Resp: Effort & Inspection: normal respiratory effort and no respiratory distress Auscultation: diminished lung sounds diffuse Cardio: Rate: regular rate Heart sounds: S1 normal heart sound present and S2 normal heart sound present GI: Other: please refer to images above. + blanchable erythematous rash noted as above. Abdomen is soft, diffusely tender, no rebound or guarding. + slight oozing noted from surgical site wounds Palpation (GI): Soft to palpation, Tenderness to palpation present (GI) (Diffusely) with no rebound tenderness, no guarding and not rigid : General: Yes no CVA tenderness Back/Spine/Pelvis: Back: no CVA tenderness Skin: Wounds: no wounds Neuro: General: patient oriented x3, tone normal, moves all extremities, no meningeal signs, no focal motor deficits and CN's II-XI intact bilaterally C ranial nerves: Yes CN's II-XII intact bilaterally and Yes Bilaterally intact EOM present Cognition (Neuro): normal cognition Speech: No Abnormal speech present Extrem: General: Yes normal to inspection Course Course Course Narrative: -1400--leukocytosis of 21.1. H&H at patient's baseline. BUN elevated to 25. Lactic acid elevated to 2.2. -magnesium low at 1.2 > IV repletion ordered -viral testing negative XR chest 1V IMPRESSION: Cardiomegaly. No active pulmonary disease. -BP dropping/still stopped. Albumin & 3rd L IVF ordered 1438-- CT abdomen pelvis w IV con IMPRESSION: Approximately 4 cm Phlegmon versus abscess with skin laceration at the surgical site where the gastric bypass banding reservoir was located. 1.8 cm residual fluid density at the lesser sac region. Discussed with the physician assistant winemaker Hyacinth in the emergency department at 2:11 PM Fleischner guidelines were followed. >>1442-- difficulty obtaining IV access on patient. ICU nurse called to attempt. May need central line if BP does not improve. Most recent blood pressure 97/45 > will hold on pressors at this time. Patient's bariatric surgeon Dr. Granados consulted -blood pressure taking, 80/33 - 74/30s >> Central line placed by KULWANT Wilson. Dr. Granados's completed bedside I&D / finger sweep > wound is open. Recommended wet-to-dry dressings Q 8 hour changes -1600--may have ICU bed, waiting to hear back. 1622-- Case d/w Telemedicine Physician Dr. Mays >1637--ICU accepted admission Medications Administered Generic Name Dose Route Start Last Admin Trade Name Freq PRN Reason Stop Dose Admin Norepinephrine Bitartrate 8 mg in 250 mls @ 0 mls/hr 04/23/24 15:30 04/23/24 15:37 Levophed IVCONT 0.05 mcg/kg/min .Q0M AHRRISON 8.74 mls/hr Administration Protocol Per Protocol Discontinued Medications Generic Name Dose Route Start Last Admin Trade Name Freq PRN Reason Stop Dose Admin Sodium Chloride 1,000 mls @ 999 mls/hr 04/23/24 11:45 04/23/24 13:05 Ns IV 04/23/24 12:45 Infused .Q1H1M HARRISON Infusion Piperacillin Sod/Tazobactam 100 mls @ 200 mls/hr 04/23/24 11:45 04/23/24 12:54 Sod 4.5 gm/ Sodium Chloride IV 04/23/24 12:14 Infused ONCE ONE Infusion Sodium Chloride 1,000 mls @ 999 mls/hr 04/23/24 13:30 04/23/24 15:38 Ns IV 04/23/24 14:30 Infused .Q1H1M HARRISON Infusion Magnesium Sulfate 2 gm in 50 mls @ 25 mls/hr 04/23/24 13:19 04/23/24 15:38 Magnesium Sulfate/H2o IV 04/23/24 15:18 Infused ONCE ONE Infusion Albumin Human 50 mls @ 100 mls/hr 04/23/24 13:54 04/23/24 15:10 Kedbumin 25 % IV 04/23/24 14:23 100 mls/hr ONCE ONE Administration Sodium Chloride 1,000 mls @ 999 mls/hr 04/23/24 14:00 04/23/24 15:38 Ns IV 04/23/24 15:00 Infused .Q1H1M HARRISON Infusion Iohexol 85 ml 04/23/24 13:36 04/23/24 13:37 Iohexol 350 Mg/Ml 100 Ml Infus..Btl IV 04/23/24 13:37 85 ml ONCE ONE Administration Medical Decision Making Medical Decision Making [facility] Narrative: 1213-- 73-year-old female with a past medical history PVD, CASSANDRA, COPD on 2L NC baseline, obesity, asthma, GERD, diabetes, s/p laparoscopic band removal on 03/13/2024 presenting to the ED complaining of generalized fatigue/weakness, chills, lightheadedness, abdominal pain, and abdominal rash x today. On exam tachycardic, hypotensive, diminished lung sounds throughout, abdomen is soft, diffusely tender, rash as noted in images. No focal neuro deficits. Concern for viral illness vs metabolic/infectious etiologies vs postsurgical complication vs other intra-abdominal pathology vs ?Allergic reaction. No evidence of anaphylaxis. Lower suspicion for ischemic bowel or PE/DVT or CVA/TIA Plan: EKG, labs, UA, CXR, CT AP, lactic/blood cultures, empiric IV antibiotics, IVF, admission Please refer to course for remaining clinical decision making, interpretation of labs/imaging results, and discussions with consultants and/or family members. Differential Diagnosis Differential Diagnoses: The differential diagnosis associated with the presentation includes As above Admission/Observation Consideration of admission/observation: Escalation of care including admission/observation considered Consult Healthcare Provider Management of the patient was discussed with: Hospitalist and Dividing Machine Operator Lab Data [facility] Lab Attestation statement: I reviewed the patient's lab results. 04/23/24 12:08 04/23/24 12:30 Labs: Lab Results 04/23/24 04/23/24 04/23/24 Range/Units 12:08 12:30 16:51 WBC 21.1 H (4.8-10.8) X10*3/uL RBC 3.92 L (4.20-5.50) X10*6/uL Hgb 11.8 L (12.0-16.0) g/dl Hct 35.6 L (37.0-47.0) % MCV 90.8 (80.0-98.0) fL MCH 30.1 (27.0-33.0) pg MCHC 33.1 (31.0-35.0) g/dl RDW 15.2 (11.0-16.0) % Plt Count 242 (160-400) X10*3/uL MPV 9.1 L (9.4-12.3) fL Immature Gran % (Auto) 0.8 H (0.0-0.4) % Neut % (Auto) 85.4 H (45-73) % Lymph % (Auto) 9.0 L (20-40) % Barnes % (Auto) 4.4 (2-11) % Eos % (Auto) 0.1 (0-4) % Baso % (Auto) 0.3 (0-2) % Lymph # (Auto) 1.9 (1.2-4.9) X10*3/uL Barnes # (Auto) 0.9 (0.1-1.2) X10*3/uL Eos # (Auto) 0.0 (0.0-0.4) X10*3/uL Baso # (Auto) 0.1 (0.0-0.2) X10*3/uL Abs Immat Gran (auto) 0.17 H (0.00-0.03) X10*3/uL Absolute Neuts (auto) 18.0 H (2.0-8.3) x10*3/uL Absolute Nucleated RBC 0.000 (0.0-0.012) X10*3/uL Nucleated RBC % (auto) 0.0 (0.0-0.2) /100WBC PT 13.2 H (10.9-12.4) SEC INR 1.1 (0.9-1.1) Sodium 138 (135-145) mmol/L Potassium 4.1 (3.3-5.1) mmol/L Chloride 106 (96-108) mmol/L Carbon Dioxide 22 (22-29) mmol/L Anion Gap 14 (12-20) BUN 25 H (9-16) mg/dL Creatinine 0.87 (0.5-1.4) mg/dL Estim Creat Clear Calc 60.4 Estimated GFR > 60 Random Glucose 142 H (60-115) mg/dL Lactic Acid 2.2 H* (0.5-2.0) mmol/L Calcium 8.8 (8.4-10.2) mg/dL Magnesium 1.2 L* (1.6-2.6) mg/dL Total Bilirubin 0.5 (0.0-1.0) mg/dL Direct Bilirubin 0.2 (0.0-0.5) mg/dL AST 19 (5-31) U/L ALT 8 (0-31) U/L Alkaline Phosphatase 62 (39-117) U/L Troponin I High Sens 4.6 (<3.5-17.0) ng/L B-Natriuretic Peptide 94 (<100) pg/mL Total Protein 6.3 L (6.5-8.0) g/dL Albumin 3.2 L (3.5-5.0) g/dL Lipase 8 (8-78) U/L Urine Color Yellow Urine Appearance Clear Urine pH 5.0 (5.0-9.0) Ur Specific Bastian >= 1.030 H (1.005-1.025) Urine Protein Trace (Neg-Trace) mg/dL Urine Glucose (UA) Negative (Negative) mg/dL Urine Ketones Negative (Negative) mg/dL Urine Blood Negative (Negative) Urine Nitrite Negative (Negative) Ur Leukocyte Esterase Negative (Negative) Influenza Type A (PCR) NEGATIVE (Negative) Influenza Type B (PCR) NEGATIVE (Negative) RSV RNA Qual (PCR) NEGATIVE (Negative) SARS-CoV-2 RNA (RT-PCR) NEGATIVE (Negative) Independent Interpretation I performed an independent interpretation of an: EKG, Plain X-Ray and CT Scan Radiology Impression Discussion of test interpretation with radiology: I have reviewed the radiologist's reading. Independent Historian Clinical information obtained from an independent historian. History obtained from or confirmed by: EMS External Record Review External record reviewed: Inpatient record, Office record, Outpatient record, Prior outpatient labs, Prior outpatient radiology, Primary care record and Outside ED record Tests considered The following testing was considered but not selected: As above Prescription Management I considered prescription management with: Pain Medication and Antibiotic Chronic Conditions Patient?s care impacted by: Diabetes and Other Social Determinants Patient?s care significantly limited by Social Determinants of Health including: Problems related to primary support group, Unemployment and Other Social Determinant of Health Procedures Central Line Placement Left IJ: Time Out Performed: Yes Patient Placed on Monitor/Pulse Ox: Yes MD Prep: mask, gown and gloves Central Line Prep: Chlorhexidine scrub and sterile drapes applied Local Anesthetic: lidocaine 1% Amount of anesthesia used (mL): 3 Ultrasound Used for Placement: Yes Central Line Lumen Inserted: triple Post Procedure: sutured in place, good blood return, all ports aspirated, flushed, capped and sterile dressing applied Patient Tolerated Procedure: well and no complications Critical Care Time Critical Care Time Critical Care Time: Yes Total Critical Care Time: 60 Attestation: I have personally provided critical care time exclusive of time spent on separately billable procedures. Time includes review of lab data, radiology results, discussion with consultants, and monitoring for potential decompensation. Intervention performed as documented. Discharge Plan Discharge Clinical Impression: Hypotension, Cellulitis, Postoperative complication Patient Disposition: Admitted As Inpatient
[2024-04-23] MEDS: 0.9 % Sodium Chloride 1,000 ML 999 ML IV ×3 (12:19→14:00)
[2024-04-23 12:28] LABS: INTERNATIONAL NORM RATIO 1.1 (0.9-1.1); Prothrombin Time 13.2 SEC (10.9-12.4)
[2024-04-23] MEDS: Piperacillin Sodium/Tazobactam 4.5 GM in 0.9 % Sodium Chloride 100 ML IV ×2 (12:31→20:20)
[2024-04-23 12:37] LABS: MANUAL DIFF FLAG NO; Troponin-I High Sensitivity 4.6 ng/L (<3.5-17.0)
[2024-04-23 12:38] LABS: B Type Natriuretic Peptide 94 pg/mL (<100)
[2024-04-23 12:39] LABS: Basophils Absolute Auto 0.1 X10*3/uL (0.0-0.2); Basophils Percent Auto 0.3 % (0-2); Eosinophils Percent Auto 0.1 % (0-4); Hematocrit 35.6 % (37.0-47.0); Hemoglobin 11.8 g/dl (12.0-16.0); Imm Gran Abs Auto 0.17 X10*3/uL (0.00-0.03); Imm Gran Pct Auto 0.8 % (0.0-0.4); Lymphocytes Absolute Auto 1.9 X10*3/uL (1.2-4.9); Mean Corpuscular HGB Conc 33.1 g/dl (31.0-35.0); Mean Corpuscular Hemoglobin 30.1 pg (27.0-33.0); Mean Corpuscular Volume 90.8 fL (80.0-98.0); Mean Platelet Volume 9.1 fL (9.4-12.3); Monocytes Absolute Auto 0.9 X10*3/uL (0.1-1.2); Monocytes Percent Auto 4.4 % (2-11); Neutrophils Percent Auto 85.4 % (45-73); Platelet Count 242 X10*3/uL (160-400); Red Blood Count 3.92 X10*6/uL (4.20-5.50); Red Cell Distribution Width 15.2 % (11.0-16.0); White Blood Count 21.1 X10*3/uL (4.8-10.8)
[2024-04-23 13:19] LABS: Carbon Dioxide 22 mmol/L (22-29); Chloride 106 mmol/L (96-108); Potassium 4.1 mmol/L (3.3-5.1); Sodium 138 mmol/L (135-145)
[2024-04-23 13:20] LABS: Lactic Acid 2.2 mmol/L (0.5-2.0)
[2024-04-23 13:20] LABS: Alanine Aminotransferase 8 U/L (0-31); Albumin Level 3.2 g/dL (3.5-5.0); Anion Gap 14 (12-20); Aspartate Amino Transferase 19 U/L (5-31); Bilirubin Direct 0.2 mg/dL (0.0-0.5); Bilirubin Total 0.5 mg/dL (0.0-1.0); Blood Urea Nitrogen 25 mg/dL (9-16); Calcium 8.8 mg/dL (8.4-10.2); Creatinine Clr Calc Pharmacy 60.4; Estimated Glomerular Filt Rate > 60; Glucose Random 142 mg/dL (60-115); Lipase 8 U/L (8-78); Magnesium 1.2 mg/dL (1.6-2.6); Total Protein 6.3 g/dL (6.5-8.0)
[2024-04-23 13:26] LABS: Influenza A PCR NEGATIVE (Negative); Influenza B PCR NEGATIVE (Negative); Resp Syncy Virus RNA Qual PCR NEGATIVE (Negative); SARS COV2 PCR INHOUSE NEGATIVE (Negative)
[2024-04-23] MEDS: Magnesium Sulfate/H2O 2 GM/50 ML PIGGYBACK IV (13:30)
[2024-04-23] MEDS: iohexoL 350 MG/ML 100 ML INFUS..BTL 85 ML IV (13:37)
--- OUTSIDE RECORDS SUMMARY | 2024-04-23 13:37 | XMS_ITS | Data Portability ---
Author Organization [employer] Address [address] [place] [id number] Care Team Providers Care Scalp Treatment Specialist Name Role Phone [facility] Referring Provider [phone] Assessment Encounter Date Assessment Date Assessment LastModified by Organization Details LastModified Time 04/25/2023 04/25/2023 I have reviewed and agree with the assessment and plan as documented by the roto rooter operator. I provided real-time medical direction for this [...] doxycycline hyclate 100 mg tablet 2023 024 [id number], [address] [place], [place], [phone], 17:02:53 Patient TargetsNo targets recorded. Patient InstructionsNo instructions recorded. Reason for Referral None Reported. Medical Equipment None Reported. Allergies Allergen ID Allergen Name Allergen Category Reaction Reaction Severity Criticality Documentation Date Start Date Code Code System Note Provider Name and Address Organization Details Recorded Time 5508 latex environme nt,medica tion Not available Not available Not available 01/02/2024 45409 91 RxNorm Not Available [facility] 03:47:12 8847 Product containin g penicilli n (product) medicatio n Not available Not available Not available 01/02/2024 20865 8001 SNOMED Not Available [facility] 03:47:12 Medications Name Sig [...] Available Not Available Not Available Dexcom G6 Supervisor [employer] USE DIRECTED active Not Available Not Available [...] % 98 % 2 L/min 16 /min 76037.4 g 97.2 [degF] 73 /min 152.4 cm [...] Note Elizabeth Phelps MD Main - [facility] [address] [place] [phone] 04/25/2023 16:58:36 04/26/2023 13:01:34 Acute exacerbation of chronic obstructive pulmonary disease 243236008 J44.1 Health Concerns Section Related Observation LastModified by Organization Detai ls LastModified Time None Recorded Concern Status LastModified by Organization Details LastModified Time None Recorded Advance Directives Directive None Recorded Payers Encounter Date Sequence Insurance Name Policy Number Policy Blackwood Covered Member ID Blackwood Member ID Guarantor Name 04/25/2023 1 [facility] - DOS ON OR AFTER 2022 - DUAL ELIGIBLE - LONG TERM OPTIONS AND ONE CARE (MEDICARE REPLACEMENT/ADV ANTAGE - HMO) Madeleine Ledezma [id number] Madeleine Ledezma Notes Date Note Type Note [...] .................. .................. .................. .................. .................. .................. ............... Farm Equipment Engineer Note From Cory Pierce: Pt reports three [...] .................. ............... Disposition: Netta Phelps MD [address] [facility],[address], [place], [id number], [place] [facility] [employer] 04/25/2023 17:52:09 OBGyn Episode No OBEpisode recorded.
--- OUTSIDE RECORDS SUMMARY | 2024-04-23 13:38 | XMS_ITS | Data Portability ---
Author Organization [facility] Pain Managem ent, PAIN OFFICE Address [address],[facility] [address] [place] [address] Care Team Providers [employer] Name Role Phone CARINA SOLER Primary Care Provider DENNIS DYER OTHER [phone] Assessment Encounter Date Assessment Date Assessment [...] booked after insurance approval. 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 [...] Last Modified Time Details Appointments PROCEDURE 2024 11:00A M Lesa jaimes MD Not available Not [...] Details Recorded Time Intercostal post-herpet ic neuralgia [id number] Active Lesa jaimes MD [address] , [address], [facility] [place], [address], [place] [facility] 0 14:21:30 Trochanteri c bursitis of left hip [id number] 03 Active 2022 Lesa jaimes MD [address] , [address], [facility] [place], [address], [place] [facility] 3 14:37:24 Lumbosacral radiculitis 46651014 Active Lesa jaimes MD [address] , [address], [facility] [place], [address], [place] [facility] 4 13:08:14 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 99350173 Active Lesa jaimes MD [address] , [address], [facility] [place], [address], [place] [facility] 4 13:08:14 Lumbosacral spondylosis without myelopathy 46022258 Active Lesa jaimes MD [address] , [address], [facility] [place] [place], [address], [place] [facility] 4 13:08:14 Mononeuriti s of upper limb Active Lesa jaimes MD [address] , [address], [place], [address], [place] [facility] 4 13:08:14 Muscle pain 66393700 Active Lesa jaimes MD [address] , [address], [place], [address], [place] [facility] 4 13:08:14 Problem Notes None recorded. Procedures Surgical History Date Name Laterality Status Provider Name and Address Organization Details Recorded Time 02/08/20 24 Intra-articular shoulder steroid injection under ultrasound guidance completed Lesa Marie MD [address] , [address], [place], [address], [place] [facility] 02/08/2024 16:15:41 07/17/19 24 Intra-articular shoulder steroid injection under ultrasound guidance completed Lesa Marie MD [address] , [address], [place], [address], [place] [facility] 07/17/2023 13:37:19 06/20/19 24 Lumbar Epidural steroid injection under fluoroscopic guidance completed Lesa Marie MD [address] , [address], [place], [address], [place] [facility] 06/20/2023 11:18:39 12/13/19 23 Intra-articular shoulder steroid injection under ultrasound guidance completed Lesa Marie MD [address] , [address], [place], [address], [place] [facility] 12/12/2022 13:15:42 12/06/19 23 Intra-articular shoulder steroid injection under ultrasound guidance completed Lesa Marie MD [address] , [address], [place], [address], [place] [facility] 12/05/2022 13:14:40 04/26/19 23 Greater Trochanteric Bursa Steroid Injection completed Lesa Marie MD [address] , [address], [place], [address], [place] [facility] 04/26/2022 14:36:25 01/20/20 22 Greater Trochanteric Bursa Steroid Injection completed Lesa Marie MD [address] , [address], [place], [address], [place] [facility] 01/19/2022 13:42:11 03/18/19 14 Lumbar Epidural steroid injection under fluoroscopic guidance completed Lesa Marie MD [address] , [address], [place], [address], [place] [facility] 03/19/2013 13:08:14 11/20/19 13 Lumbar Epidural steroid injection under fluoroscopic guidance completed Lesa Marie MD [address] , [address], [place], [address], [place] [facility] 11/20/2012 09:33:24 03/10/19 12 Trigger Point Injections under ultrasound guidance completed Lesa Marie MD [address] , [address], [place], [address], [place] [facility] 03/10/2011 10:38:48 03/06/19 06 Other completed Not Available [facility] 1 03:05:25 03/06/19 02 Other completed Not Available [facility] 03:05:25 Other completed Not Available [facility] 03:05:25 Imaging Results None recorded. Procedure Notes None recorded. Medical Equipment None Reported. Allergies Allergen ID Allergen Name Allergen Category Reaction Reaction Severity Criticality Documentation Date Start Date Code Code System Note Provider Name and Address Organization Details Recorded Time 441 aspirin medicatio n other mild Not available 12/21/2010 1191 RxNorm Burni ng sensa tion in the stoma ch Not Available [facility] 03:05:17 541 latex environme nt,medica tion rash Not available Not available 12/27/2010 72245 91 RxNorm Not Available [facility] 03:05:17 Medications Name Sig Start Date Stop [...] Not Available No t Available Dexcom G6 Employment Appeals Examiner USE DIRECTED active Not Available Not Available [...] Not Available Not Available FreeStyle Lai 2 Blackey active Not Available Not Available Not Available [...] /min 96 % 96 % 39.1 kg/m2 01801.4 7 g 143 mm[Hg] 65 mm[Hg] Lesa jaimes MD [facility] [address] , [address], [place], [address], [place] - [facility] 4 [...] % 2.5 L/min 87 /min 38.5 kg/m2 11641.7 g 108 mm[Hg] 85 mm[Hg] Dulce christianson [...] 12/20/2019 03:16:12 Are You Currently Employed? No [id number] Information not available 12/20/2019 Education 12 [email or web address] Information not available 01/26/2011 What Is Your Occupation? DIsabled Social Security Disability [id number] Information not available 12/20/2019 Live Alone Or With Others? With Others Trerell Information not available 12/21/2010 Marital Status [email or web address] Information not available 01/26/2011 Sex: Unknown Functional Status None recorded. Mental Status None recorded. Family History Relationship Description Onset Age of this Age Resolved Age Notes LastModified by Organization Details LastModified Time Father Malignant neoplastic disease 96 previo usly record ed as Cancer [email or web address] [id number] Not available 11/25/2012 03:01:59 Father Diabetes mellitus previo usly record ed as Diabet es [email or web address] [id number] Not available 11/25/2012 03:01:59 Father Hypertensive disorder previo usly record ed as Hypert ension [email or web address] [id number] Not available 11/25/2012 03:01:59 Mother Malignant neoplastic disease 68 Breast (previ ously record ed as Cancer ) [email or web address] [id number] Not available 11/25/2012 03:01:59 Medical History Condition [...] [facility] PAIN [place] [address] [place] [address] 12/21/2010 14:06:59 12/22/2010 09:40:34 1721 [facility] [place] [address] [place] [address] 12/27/2010 13:18:02 12/27/2010 15:06:30 5201 Klarissa Wilburn [facility] PA[facility] [place] [address] [place] [address] 02/16/2011 13:04:02 02/16/2011 16:16:31 6541 SV PAIN [place] [address] [place] [address] 03/10/2011 09:37:06 03/10/2011 10:39:44 8001 SV PAIN [place] [address] [place] [address] 04/05/2011 13:01:46 04/05/2011 14:47:42 30649 SV PAIN OFFICE [address] [place] [address] 06/17/2011 10:08:59 06/18/2011 13:15:27 66288 SV PAIN OFFICE [address] [place] [address] 11/07/2012 10:48:11 11/07/2012 15:59:02 03081 SV PAIN OFFICE [address] [place] [address] 11/19/2012 12:51:36 11/19/2012 16:05:42 10779 Klarissa Wilburn [facility] PAIN OFFICE [address] [place] [address] 12/24/2012 14:34:44 12/24/2012 15:27:26 Lumbosacral spondylosis without myelopathy 83776183 Mononeurit is of upper limb 48502339 Muscle pain 41408665 Lumbosacra l radiculitis 16781506 Displaceme nt of lumbar intervertebral disc without myelopathy 44007576 21124 [facility] PAIN OFFICE [address] [place] [address] 03/18/2013 13:07:26 03/19/2013 14:03:02 Lumbosacral spondylosis without myelopathy 98592928 Mononeurit is of upper limb 96836975 Muscle pain 30705341 Displaceme nt of lumbar intervertebral disc without myelopathy 31379028 Lumbosacra l radiculitis 51691490 Interverte bral disc disorder 29478412 22533 Lesa Marie MD PAIN OFFICE [address] [place] [address] 05/16/2019 13:54:58 05/16/2019 16:19:59 Intercostal post-herpetic neuralgia 209764675 B02.29 61884 Lesa Marie MD PAIN OFFICE [address] [place] [address] 02/04/2021 13:31:51 02/15/2021 13:47:06 Inflammation of joint of shoulder region 946036177 M13.819 M13.812 Intercosta l post-herpetic neuralgia 687266451 B02.29 Lumbosacra l radiculitis 71282208 M54.17 Displaceme nt of lumbar intervertebral disc without myelopathy 17711272 M51.26 83106 Lesa Marie MD PAIN OFFICE [address] [place] [address] 12/30/2021 14:38:15 12/30/2021 16:43:11 Trochanteric bursitis of right hip 7293699114 17663 M70.61 33610 Lesa Marie MD [facility] PAIN OFFICE [address] [place] [address] 01/19/2022 10:09:37 01/19/2022 13:45:49 Trochanteric bursitis of right hip 8666089070 62784 M70.61 04045 Lesa Marie MD PAIN OFFICE [address] [facility] [place] [address] 02/17/2022 11:28:41 02/17/2022 13:57:15 Trochanteric bursitis of right hip 7393807289 03802 M70.61 12379 Lesa Marie MD SV PAIN OFFICE [address] [place] [facility] [place] [address] 04/26/2022 10:47:04 04/26/2022 14:41:34 Trochanteric bursitis of left hip 0791740222 04824 M70.62 05063 Lesa Marie MD PAIN OFFICE [address] [place] [address] [place] [address] 11/30/2022 14:21:06 12/01/2022 11:16:50 Subacromial bursitis of right shoulder 1578588289 643055 M75.51 Inflammati on of joint of shoulder region 473045478 M13.812 M13.811 30856 Lesa Marie MD PAIN OFFICE [address] [place] [address] [place] [address] 12/05/2022 11:36:36 12/05/2022 13:17:19 Subacromial bursitis of right shoulder 6127922875 617661 M75.51 Inflammati on of joint of shoulder region 612113232 M13.812 M13.811 49948 Lesa Marie MD PAIN OFFICE [address] [place] [place] [address] 12/12/2022 11:28:38 12/13/2022 11:15:40 Subacromial bursitis of right shoulder 7836908701 347990 M75.51 Inflammati on of joint of shoulder region 155129859 M13.812 M13.811 Lumbosacra l radiculopathy 3652562 M54.17 Degenerati on of lumbar intervertebral disc 31919082 M51.36 26550 Lesa Marie MD PAIN OFFICE [address] [facility] [place] [address] 05/18/2023 09:54:41 05/18/2023 14:20:26 Lumbosacral radiculitis 12642637 M54.17 Displaceme nt of lumbar intervertebral disc without myelopathy 40650879 M51.26 Subacromia l bursitis of right shoulder 1088433863 383098 M75.51 Inflammati on of joint of shoulder region 358347439 M13.812 M13.811 Lumbosacra l radiculopathy 2265714 M54.17 Degenerati on of lumbar intervertebral disc 98141436 M51.36 22832 Lesa Marie MD PAIN OFFICE [address] [facility] [place] [address] 06/20/2023 10:26:03 06/20/2023 15:35:35 Lumbosacral radiculitis 81977535 M54.17 Displaceme nt of lumbar intervertebral disc without myelopathy 92184918 M51.26 Subacromia l bursitis of right shoulder 7422818074 130043 M75.51 Inflammati on of joint of shoulder region 325712077 M13.812 M13.811 Lumbosacra l radiculopathy 8550553 M54.17 Degenerati on of lumbar intervertebral disc 31607246 M51.36 39224 Lesa Marie MD PAIN OFFICE [address] [place] [address] 07/17/2023 11:21:50 07/17/2023 13:39:13 Subacromial bursitis of right shoulder 4706555187 077827 M75.51 Inflammati on of joint of shoulder region 517786118 M13.812 M13.811 04742 Lesa Marie MD PAIN OFFICE [address] [place] [address] 12/07/2023 12:31:09 12/08/2023 10:25:28 Subacromial bursitis of right shoulder 0857319938 574553 M75.51 Inflammati on of joint of shoulder region 298674845 M13.812 M13.811 64629 Lesa Marie MD PAIN OFFICE [address] [facility] [place] [address] 02/08/2024 14:33:02 02/08/2024 16:19:44 Subacromial bursitis of right shoulder 1845826809 235867 M75.51 Inflammati on of joint of shoulder region 974468589 M13.812 M13.811 Health Concerns Section Related Observation LastModified by Organization Detai ls LastModified Time None Recorded Concern Status LastModified by Organization Details LastModified Time None Recorded Advance Directives Directive None Recorded Payers Encounter Date Sequence Insurance Name Policy Number Policy Blackwood Covered Member ID Blackwood Member ID Guarantor Name 05/18/2023 1 [facility] [employer] - DOS ON OR AFTER 2022 - ONE CARE (MEDICARE REPLACEMENT/ADV ANTAGE - HMO) Madeleine Darien [id number] Madeleine Darien 06/20/2023 1 [facility] [employer] - DOS ON OR AFTER 2022 - ONE CARE (MEDICARE REPLACEMENT/ADV ANTAGE - HMO) Madeleine Ledezma [id number] Madeleine Darien 07/17/2023 1 [facility] [employer] - DOS ON OR AFTER 2022 - ONE CARE (MEDICARE REPLACEMENT/ADV ANTAGE - HMO) Madeleine Ledezma [id number] Madeleine Darien 12/07/2023 1 [facility] - DOS ON OR AFTER 2022 - ONE CARE (MEDICARE REPLACEMENT/ADV ANTAGE - HMO) Madeleine Ledezma [id number] Madeleine Darien 02/08/2024 1 [facility] C[facility] [employer] - DOS ON OR AFTER 2022 - ONE CARE (MEDICARE REPLACEMENT/ADV ANTAGE - HMO) Madeleine Ledezma [id number] Madeleine Darien Notes Date Note Type Note [...] bit. She has trialed an injection at [facility] which did not help. She had a lumbar epidural steroid injection in 2013 which helped for years. She states the steroid injections increase her blood glucose levels but she is able to adjust with insulin. Lesa Marie MD [address] , [address], [place], [address], [place] [facility] 05/19/2023 08:56:55 06/20/2023 text/html She is here for a trial of lumbar epidural steroid injection under fluoroscopic guidance. Lesa Marie MD [address] , [address], [place], [address], [place] [facility] 06/20/2023 16:11:05 07/17/2023 text/html She is here for a right shoulder steroid injection under ultrasound guidance Lesa Marie MD [address] , [address], [place], [address], [place] [facility] 07/17/2023 15:26:06 [...] MD [address] , [address], [place], [address], [place] [facility] 12/08/2023 11:34:53 02/08/2024 text/html She is here for a bilateral shoulder steroid injection under ultrasound guidance Lesa Marie MD [address] , [address], [place], [address], [place] [facility] 02/09/2024 08:57:46 OBGyn Episode No OBEpisode recorded.
[2024-04-23 13:57] LABS: Alkaline Phosphatase 62 U/L (39-117)
[2024-04-23 14:35] LABS: Reflex Lactate? Lactic Acid Added
[2024-04-23] MEDS: Albumin Human 25 % 50 ML 100 ML IV (15:10)
[2024-04-23] MEDS: Norepinephrine Bitartrate/D5W 8 MG/250 ML PLAST..BAG 8.74 MG IVCONT (15:37)
--- NOTE | 2024-04-23 15:52 | PM.HPGS ---
History of Present Illness History of Present Illness Date of Service: 04/23/24 Chief complaint: weakness x 2 days Narrative: Madeleine Ledezma is a 73 year old female known to me who underwent a lap band removal on 03/13/2024. She had an uneventful recovery and was seen at my office by my PA Davy Thomson on 03/21/24 reporting no issues. On 03/20/24 had a barium swallow study ordered by Dr. Gayle that showed no evidence of gastric leak. The patient presented today with a 2 -day history of generalized weakness. She reports that the port site wound never completely healed. She states that she was seen at my office but there is no record of that other than the 03/21/24 postop appointment. Today she also noted a rash at the right side of the abdomen lateral to the port site wound. A CT of the abdomen was performed without PO contrast. There is no intra-abdominal collections except a small amount of fluid in the lesser sac where the band was adherent to the liver. The stomach looks normal. At the port site there is a small amount of subcutaneous fluid and induration. There is also subcutaneous fat stranding extending to the area where the rash is. There is no evidence of air in that area except from the area of the incision which appears partially open. I also spoke to the Radiologist who read the CT and confirmed that there was no other findings except from the area of the surgical wound. Review of Systems Constitutional: Constitutional: Reports fatigue Gastrointestinal: Gastrointestinal: Reports abdominal pain (port site abdominal pain) Endocrine: Endocrine: Reports fatigue PMFSH Past Medical History Medical History Peripheral vascular disease Supplemental oxygen dependent GERD (gastroesophageal reflux disease) CASSANDRA (obstructive sleep apnea) Hypoglycemia associated with type 2 diabetes mellitus COPD exacerbation C. difficile enteritis COVID-19 DVT (deep venous thrombosis) Pulmonary hypertension Pulmonary emboli Acute on chronic respiratory failure with hypoxia and hypercapnia Chronic respiratory failure [place] (hard of hearing) PONV (postoperative nausea and vomiting) Post herpetic neuralgia Pneumonia Back pain Morbid obesity Chest crackles Cardiomegaly Asthma-COPD overlap syndrome Acute respiratory failure Hyperlipidemia Hypertension Diabetes Arnold-Chiari malformation Arthritis Fibromyalgia Cough CASSANDRA treated with BiPAP Asthma Sinusitis Family History Family History Mother HTN (hypertension) Breast cancer Father Primary cancer of bone marrow Surgical History Surgical History Hx of eye surgery History of esophagogastroduodenoscopy (EGD) H/O colonoscopy Hx of laparoscopic gastric banding (~2009) H/O bilateral breast reduction surgery H/O brain surgery Social History Social History Household Members: Family Household Members Other:: granddaughter Housing: Apartment Are you a primary emergency care attendant to a significant other at home: No Do you presently have visiting nurse or other home services: Yes ([employer] Monday-Monday) Unable to assess alcohol history related to: Unable to respond Alcohol intake: never Patient Tobacco Use Status: Former Tobacco user Tobacco use type: Cigarette Years Smoked: 15 +/- e-Cigarette/Vaping Use: Never Used Second Hand Smoke Exposure: No Advance Directives: Yes Advance Directives on File: Yes Advance Directives Date on File: 11/11/21 Do you have a plan to hurt others: No Plan service: No Meds Allergies Allergy/AdvReac Type Severity Reaction Status Date / Time aspirin [ASPIRIN] Allergy Intermediate GI UPSET, Verified 04/23/24 11:40 stomach pain latex [LATEX] Allergy Intermediate HIVES Verified 04/23/24 11:40 Active Medications: Current Medications Norepinephrine Bitartrate (Levophed) 8 mg in 250 mls @ 0 mls/hr IVCONT .Q0M HARRISON; Protocol Last Admin: 04/23/24 15:37 Dose: 0.05 mcg/kg/min, 8.74 mls/hr Home Medications ?Medication ?Instructions ?Recorded ?Confirmed ?Last Taken ?Type duloxetine 60 mg capsule,delayed 60 mg PO DAILY 02/06/20 03/11/24 02/27/22 History release lisinopril 10 mg tablet 10 mg PO DAILY 02/06/20 03/11/24 02/27/22 History donepezil 5 mg tablet 5 mg PO BEDTIME 11/06/20 03/11/24 02/27/22 History Oxygen Home Use 01/18/22 03/08/24 Unknown History acetaminophen 500 mg tablet 650 mg PO Q6H PRN fever or pain 02/28/22 03/11/24 02/27/22 History (Tylenol Extra Strength) nebulizers 03/14/23 03/08/24 Unknown History atorvastatin 40 mg tablet 40 mg PO DAILY 05/15/23 03/11/24 Unknown History azelastine 137 mcg (0.1 %) nasal 1 spray intranasal BEDTIME PRN 10/23/23 03/08/24 01/02/24 History spray Allergies tramadol 50 mg tablet 50 mg PO QID PRN Pain (Scale Score 10/23/23 03/11/24 Unknown History 1-3) vitamin B complex 1 cap PO DAILY 10/23/23 03/11/24 01/02/24 History aripiprazole 15 mg tablet 15 mg PO DAILY 01/01/24 03/11/24 Unknown History budesonide 160 mcg-glycopyr 9 2 inh inhalation BID COPD 01/04/24 03/11/24 Unknown History mcg-formot 4.8 mcg/actuation HFA inhaler (Breztri Aerosphere) melatonin 10 mg tablet 10 mg PO BEDTIME PRN Insomnia 01/04/24 03/11/24 Unknown History vibegron 75 mg tablet (Gemtesa) 75 mg PO DAILY 01/04/24 03/11/24 Unknown History zolpidem 10 mg tablet 10 mg PO BEDTIME PRN Insomnia 01/04/24 03/11/24 Unknown History buspirone 30 mg tablet 30 mg PO BID 01/05/24 03/11/24 Unknown History fluticasone propionate 50 2 spray intranasal DAILY 01/05/24 03/11/24 Unknown History mcg/actuation nasal spray,suspension lidocaine 5 % topical patch 1 patch topical DAILY PRN Pain 01/05/24 03/11/24 Unknown History (Lidoderm) nystatin 100,000 unit/gram topical 1 appl topical BID-TID PRN Rash 01/05/24 03/11/24 Unknown History powder (Nystop) nystatin 100,000 unit/mL oral 1 ml PO BID 01/05/24 03/13/24 Unknown History suspension albuterol sulfate 2.5 mg/3 mL 2.5 mg inhalation Q4H PRN for 03/13/24 03/13/24 Unknown History (0.083 %) solution for nebulization wheezing clonazepam 0.5 mg tablet 0.5 mg PO BID PRN Anxiety 03/13/24 03/13/24 Unknown History insulin glargine 100 unit/mL (3 8 unit subcut DAILY PRN pump 03/13/24 03/13/24 Unknown History mL) subcutaneous pen insulin glargine 100 unit/mL (3 15 unit subcut QAM 03/13/24 03/13/24 Unknown History mL) subcutaneous pen metformin 1,000 mg tablet 1,000 mg PO BID 03/13/24 03/13/24 Unknown History Physical Exam Vital Signs: Vital Signs: Last Vital Signs Temp 98.1 F 04/23/24 11:35 Pulse 81 04/23/24 15:37 Resp 16 04/23/24 14:57 BP 90/44 L 04/23/24 15:37 Pulse Ox 100 04/23/24 14:57 O2 Del Method Nasal Cannula 04/23/24 14:57 O2 Flow Rate 2 04/23/24 14:57 Oxygen Flow Rate 2 04/23/24 11:35 BMI result Body Mass Index 40.1 Skin: General skin exam: other (partially open skin incision where the band port was) Rashes: rashes noted (right abdominal wall) Wounds: wounds noted (port site wound) Results Results Labs: Short CBC 04/23/24 Range/Units 12:08 WBC 21.1 H (4.8-10.8) X10*3/uL Hgb 11.8 L (12.0-16.0) g/dl Hct 35.6 L (37.0-47.0) % Plt Count 242 (160-400) X10*3/uL BMP 04/23/24 12:30 Sodium 138 Potassium 4.1 Chloride 106 Carbon Dioxide 22 BUN 25 H Creatinine 0.87 Calcium 8.8 Liver Function 04/23/24 Range/Units 12:30 Total Bilirubin 0.5 (0.0-1.0) mg/dL Direct Bilirubin 0.2 (0.0-0.5) mg/dL AST 19 (5-31) U/L ALT 8 (0-31) U/L Alkaline Phosphatase 62 (39-117) U/L Albumin 3.2 L (3.5-5.0) g/dL Assessment and Plan (1) Cellulitis: Qualifiers: Site of cellulitis of trunk: abdominal wall Status: Acute Plan The wound was opened at the bedside. Small amount of serous fluid was evacuated. No purulent material. The wound was probed and there was no evidence of subcutaneous tracking or pockets of fluid. The wound was packed wet to dry. Probably cellulitis from a partially open surgical wound. Will need IV broad spectrum antibiotics and fluid resuscitation in the ICU given her comorbidities, morbid obesity and acute sepsis. Quality Stroke Does the patient have a stroke diagnosis?: No VTE Prior VTE?: No VTE Risk Level:: Medical - moderate - high VTE Device Contraindication: N/A - Device Ordered VTE Drug Contraindication: Treatment Not Indicated Procedures Date of Service Date of Service: 04/23/24
[2024-04-23 17:07] LABS: Appearance Urine Clear; Color Urine Yellow; Glucose Urine UA Negative (Negative); Leukocyte Esterase Urine Negative (Negative); Nitrite Urine Negative (Negative); Specific Gravity - Urine >= 1.030 (1.005-1.025); Urine Blood Negative (Negative); Urine Ketones Negative (Negative); Urine Protein Trace mg/dL (Neg-Trace)
--- NOTE | 2024-04-23 17:15 | P.EN_ITS ---
Event Note Date of Service: 04/23/24 Event Note: Patient is a 73 Y F w/ asthma, COPD c/b chronic respiratory failure on 2L NC, obesity c/b diabetes mellitus, CASSANDRA, who underwent lap band removal on 03/13 presenting initially to emergency department on 04/23 w/ non-specific symptoms and R abdominal rash, found to have CT A/P c/f abscess, seen by bariatric surgery in ED s/p I/D, though found to be hypotensive, now on vasopressors; plan to admit ICU, continue antibiotics and supportive measures including vasopres sors Time Spent With Patient Time: Total time managing care of this patient today ____ minutes.
[2024-04-23] MEDS: Clindamycin Phosphate/D5W 600 MG/50 ML PIGGYBACK 100 MG IV (17:24)
[2024-04-23] MEDS: vancomycin/NS 2,000 MG/500 ML PLAST..BAG 250 MG IV (17:54)
[2024-04-23 18:17] LABS: Glucose, Whole Blood 137 mg/dL (60-115)
[2024-04-23 19:07] LABS: MANUAL DIFF FLAG NO
[2024-04-23 19:08] LABS: Basophils Absolute Auto 0.1 X10*3/uL (0.0-0.2); Basophils Percent Auto 0.3 % (0-2); Eosinophils Percent Auto 0.2 % (0-4); Hematocrit 31.5 % (37.0-47.0); Hemoglobin 10.6 g/dl (12.0-16.0); Imm Gran Abs Auto 0.19 X10*3/uL (0.00-0.03); Imm Gran Pct Auto 0.9 % (0.0-0.4); Lymphocytes Absolute Auto 2.3 X10*3/uL (1.2-4.9); Lymphocytes Percent Auto 10.9 % (20-40); Mean Corpuscular HGB Conc 33.7 g/dl (31.0-35.0); Mean Corpuscular Hemoglobin 30.9 pg (27.0-33.0); Mean Corpuscular Volume 91.8 fL (80.0-98.0); Monocytes Percent Auto 4.9 % (2-11); Neutrophils Absolute Auto 17.2 x10*3/uL (2.0-8.3); Neutrophils Percent Auto 82.8 % (45-73); Platelet Count 225 X10*3/uL (160-400); Red Blood Count 3.43 X10*6/uL (4.20-5.50); Red Cell Distribution Width 15.4 % (11.0-16.0); White Blood Count 20.8 X10*3/uL (4.8-10.8)
[2024-04-23 19:25] LABS: Anion Gap 11 (12-20); Blood Urea Nitrogen 22 mg/dL (9-16); Calcium 8.3 mg/dL (8.4-10.2); Carbon Dioxide 21 mmol/L (22-29); Chloride 110 mmol/L (96-108); Creatinine Clr Calc Pharmacy 66.6; Estimated Glomerular Filt Rate > 60; Glucose Random 156 mg/dL (60-115); Magnesium 1.7 mg/dL (1.6-2.6); Potassium 4.3 mmol/L (3.3-5.1); Sodium 138 mmol/L (135-145)
--- NOTE | 2024-04-23 19:31 | PC.NURSE ---
Pt?ar[place] [facility] [place] approximately @ 1810. Alert & Oriented.? 2LNC at baseline, Wheezing throughout BL lungs . Sinus Rhythm,on norepinephrine -per MAY, MAP goal >65,? Jones placed, patent /draining. LBM 04/22, soft abdomen, + bowel sounds. Surgical site and Rash to abdomen? (DSG D&I), Fungal rash to perineal and skin folds, blanchable redness to coccyx (Bathed, Triad/foam applied). TLC LIJ, peripheral IVs.
[2024-04-23 20:40] LABS: Glucose, Whole Blood 129 mg/dL (60-115)
[2024-04-23 20:57] LABS: Glucose, Whole Blood 118 mg/dL (60-115)
[2024-04-24] VITALS (41 sets, daily range): BP systolic 87–165; BP diastolic 33–93; PULSE 63–114; RESP 13–33; TEMP 36.1–38.2; O2SAT 89–100; BMI 42.4
[2024-04-24] MEDS: Acetaminophen 325 MG TABLET 650 MG PO (01:27)
[2024-04-24] MEDS: Clindamycin Phosphate/D5W 600 MG/50 ML PIGGYBACK 100 MG IV ×3 (01:27→17:50)
[2024-04-24] MEDS: 0.9 % Sodium Chloride Flush 3 ML SYRINGE IVFLUSH ×3 (01:27→17:51)
[2024-04-24 02:20] LABS: Glucose, Whole Blood 137 mg/dL (60-115)
[2024-04-24] MEDS: Piperacillin Sodium/Tazobactam 4.5 GM in 0.9 % Sodium Chloride 100 ML IV ×3 (04:43→19:53)
[2024-04-24 05:31] LABS: VBG Base Excess -0.8 mmol/L; VBG HCO3 25 mmol/L (22-26); VBG pCO2 46 mmHg; VBG pH 7.33 (7.32-7.43); VBG pO2 53 mmHg
[2024-04-24 05:34] LABS: Venous Blood Gas Refer to POC result
[2024-04-24] MEDS: vancomycin HCL 750 MG in 0.9 % Sodium Chloride 250 ML 265 MG IV ×2 (05:46→17:50)
[2024-04-24 05:48] LABS: MANUAL DIFF FLAG NO
[2024-04-24 05:52] LABS: Basophils Absolute Auto 0.1 X10*3/uL (0.0-0.2); Basophils Percent Auto 0.3 % (0-2); Eosinophils Absolute Auto 0.1 X10*3/uL (0.0-0.4); Eosinophils Percent Auto 0.7 % (0-4); Hematocrit 30.1 % (37.0-47.0); Hemoglobin 9.9 g/dl (12.0-16.0); Imm Gran Abs Auto 0.26 X10*3/uL (0.00-0.03); Imm Gran Pct Auto 1.3 % (0.0-0.4); Lymphocytes Absolute Auto 2.3 X10*3/uL (1.2-4.9); Lymphocytes Percent Auto 11.6 % (20-40); Mean Corpuscular HGB Conc 32.9 g/dl (31.0-35.0); Mean Corpuscular Volume 91.2 fL (80.0-98.0); Mean Platelet Volume 9.1 fL (9.4-12.3); Monocytes Absolute Auto 1.1 X10*3/uL (0.1-1.2); Monocytes Percent Auto 5.5 % (2-11); Neutrophils Absolute Auto 16.1 x10*3/uL (2.0-8.3); Neutrophils Percent Auto 80.6 % (45-73); Platelet Count 231 X10*3/uL (160-400); Red Cell Distribution Width 15.5 % (11.0-16.0); White Blood Count 19.9 X10*3/uL (4.8-10.8)
[2024-04-24 06:08] LABS: Anion Gap 10 (12-20); Blood Urea Nitrogen 18 mg/dL (9-16); Calcium 8.5 mg/dL (8.4-10.2); Carbon Dioxide 23 mmol/L (22-29); Chloride 110 mmol/L (96-108); Creatinine Clr Calc Pharmacy 67.8; Estimated Glomerular Filt Rate > 60; Glucose Random 130 mg/dL (60-115); Magnesium 1.8 mg/dL (1.6-2.6); Phosphorus 2.7 mg/dL (2.7-4.5); Potassium 4.1 mmol/L (3.3-5.1); Sodium 139 mmol/L (135-145)
--- NOTE | 2024-04-24 07:20 | PC.NURSE ---
Assumed care of patient at 19:00. Pt is A&Ox4. [place], though hearing aids left at home per pt report. Pt continues on levophed gtt, titrated per MAR and RIVET BUCKER Theresa verbal orders. Maps maintained >65. Pt c/o headache x1 and requested tylenol for this. RIVET BUCKER was made aware and a 1x tylenol po was given with +effect. ~02:15, patient stated ?I feel hot. Can you check my sugar please?? POC obtained showing 137 (HS poc was 118). RR noted in mid 20?s with breathing even and unlabored without distress, spo2 maintained on baseline 2L nc for copd. Patient appeared flushed in the face though normothermic to touch. Discussed assessment findings with patient who was agreeable to a rectal temp, obtained showing 100.8. RIVET BUCKER made aware. Ice packs applied to bilateral axilla. No further orders. Pt remained afebrile for remainder of shift.? Please see shift assessments, and tasks in worklist for full details.
[2024-04-24 07:35] LABS: Glucose, Whole Blood 122 mg/dL (60-115)
--- NOTE | 2024-04-24 07:53 | P.PNGS_ITS ---
Subjective Subjective Date of Service: 04/24/24 Interval history: Complains of right abdominal wall pain. Still on Levophed. Low grade fever. Good urine output and blood pressure has improved. Alert and oriented Physical Exam 2 Vital Signs: Vital Signs: Last Vital Signs Temp 97.5 F 04/24/24 05:57 Pulse 107 H 04/24/24 07:00 Resp 33 H 04/24/24 07:00 BP 148/50 H 04/24/24 07:00 Pulse Ox 96 04/24/24 07:00 O2 Del Method Nasal Cannula 04/24/24 07:00 O2 Flow Rate 2 04/24/24 07:00 Oxygen Flow Rate 2 04/23/24 11:35 BMI result Body Mass Index 42.4 GI: Inspection: Yes other (dressing changed. Wound clean no subcutaneous fluctuance or pus) Skin: Rashes: rashes noted (it somewhat reduced since yesterday in surface area) Objective Data Active Medications Dextrose (Dextrose 50 % 25 Gm/50 Ml Syringe) 25 gm IVPUSH Q15M PRN; Protocol PRN Reason: per Hypoglycemia Standing Ord. Enoxaparin Sodium (Enoxaparin Sodium 40 Mg/0.4 Ml Syringe) 40 mg SUBCUT DAILY [facility] Glucose (Glucose Gel 15 Gm Gel..Gram.) 15 gm PO Q15M PRN; Protocol PRN Reason: per Hypoglycemia Standing Ord. Norepinephrine Bitartrate (Levophed) 8 mg in 250 mls @ 0 mls/hr IVCONT .Q0M [facility]; Protocol Last Titration: 04/24/24 06:34 Dose: 0.08 mcg/kg/min, 13.98 mls/hr Documented By: SAI Clindamycin Phosphate (Cleocin) 600 mg in 50 mls @ 100 mls/hr IV Q8H [facility] Last Infusion: 04/24/24 01:57 Dose: Infused Documented By: SAI Piperacillin Sod/Tazobactam (Sod 4.5 gm/ Sodium Chloride) 100 mls @ 200 mls/hr IV Q8H [facility] Last Infusion: 04/24/24 05:13 Dose: Infused Documented By: SAI Vancomycin HCl 750 mg/ Sodium (Chloride) 265 mls @ 265 mls/hr IV Q12H [facility] Last Infusion: 04/24/24 06:46 Dose: Infused Documented By: SAI Insulin Human Lispro (Insulin Lispro 100 Unit/Ml 3 Ml Vial) 0 unit SUBCUT QIDACHS [facility]; Protocol Last Admin: 04/24/24 07:52 Dose: Not Given Documented By: GILBERTO Non-Admin Reason: No Insulin Coverage Pharmacy Consult (Consult Rx Vancomycin Dosing) 1 each MISCELLANE DAILY PRN PRN Reason: Consult order Sodium Chloride (0.9 % Sodium Chloride Flush 3 Ml Syringe) 3 ml IVFLUSH [facility] [place] Last Admin: 04/24/24 01:27 Dose: 3 ml Documented By: SAI Labs 04/24/24 05:25 04/24/24 05:25 Labs: Laboratory Results - last 24 hr 04/23/24 04/23/24 04/23/24 12:08 12:30 16:51 MCV 90.8 MCH 30.1 MCHC 33.1 RDW 15.2 Plt Count 242 MPV 9.1 L Immature Gran % (Auto) 0.8 H Neut % (Auto) 85.4 H Lymph % (Auto) 9.0 L F[place] % (Auto) 4.4 Eos % (Auto) 0.1 Baso % (Auto) 0.3 Lymph # (Auto) 1.9 [place] # (Auto) 0.9 Eos # (Auto) 0.0 Baso # (Auto) 0.1 Abs Immat Gran (auto) 0.17 H Absolute Neuts (auto) 18.0 H Absolute Nucleated RBC 0.000 Nucleated RBC % (auto) 0.0 PT 13.2 H INR 1.1 VBG pH VBG pCO2 VBG pO2 VBG HCO3 VBG O2 Saturation VBG Base Excess Anion Gap 14 Estim Creat Clear Calc 60.4 Estimated GFR > 60 POC Glucose Random Glucose 142 H Lactic Acid 2.2 H* Calcium 8.8 Phosphorus Magnesium 1.2 L* Total Bilirubin 0.5 Direct Bilirubin 0.2 AST 19 ALT 8 Alkaline Phosphatase 62 B-Natriuretic Peptide 94 Total Protein 6.3 L Albumin 3.2 L Lipase 8 Urine Color Yellow Urine Appearance Clear Urine pH 5.0 Ur Specific Stanton >= 1.030 H Urine Protein Trace Urine Glucose (UA) Negative Urine Ketones Negative Urine Blood Negative Urine Nitrite Negative Ur Leukocyte Esterase Negative Influenza Type A (PCR) NEGATIVE Influenza Type B (PCR) NEGATIVE RSV RNA Qual (PCR) NEGATIVE SARS-CoV-2 RNA (RT-PCR) NEGATIVE 04/23/24 04/23/24 04/23/24 16:59 17:24 18:13 MCV MCH MCHC RDW Plt Count MPV Immature Gran % (Auto) Neut % (Auto) Lymph % (Auto) Fountain % (Auto) Eos % (Auto) Baso % (Auto) Lymph # (Auto) [place] # (Auto) Eos # (Auto) Baso # (Auto) Abs Immat Gran (auto) Absolute Neuts (auto) Absolute Nucleated RBC Nucleated RBC % (auto) PT INR VBG pH VBG pCO2 VBG pO2 VBG HCO3 VBG O2 Saturation VBG Base Excess Anion Gap Estim Creat Clear Calc Estimated GFR POC Glucose 129 H 137 H Random Glucose Lactic Acid 2.0 Calcium Phosphorus Magnesium Total Bilirubin Direct Bilirubin AST ALT Alkaline Phosphatase B-Natriuretic Peptide Total Protein Albumin Lipase Urine Color Urine Appearance Urine pH Ur Specific [place] Urine Protein Urine Glucose (UA) Urine Ketones Urine Blood Urine Nitrite Ur Leukocyte Esterase Influenza Type A (PCR) Influenza Type B (PCR) RSV RNA Qual (PCR) SARS-CoV-2 RNA (RT-PCR) 04/23/24 04/23/24 04/24/24 18:56 20:54 02:16 MCV 91.8 MCH 30.9 MCHC 33.7 RDW 15.4 Plt Count 225 MPV 9.0 L Immature Gran % (Auto) 0.9 H Neut % (Auto) 82.8 H Lymph % (Auto) 10.9 L F[place] % (Auto) 4.9 Eos % (Auto) 0.2 Baso % (Auto) 0.3 Lymph # (Auto) 2.3 Fountain # (Auto) 1.0 Eos # (Auto) 0.0 Baso # (Auto) 0.1 Abs Immat Gran (auto) 0.19 H Absolute Neuts (auto) 17.2 H Absolute Nucleated RBC 0.000 Nucleated RBC % (auto) 0.0 PT INR VBG pH VBG pCO2 VBG pO2 VBG HCO3 VBG O2 Saturation VBG Base Excess Anion Gap 11 L Estim Creat Clear Calc 66.6 Estimated GFR > 60 POC Glucose 118 H 137 H Random Glucose 156 H Lactic Acid Calcium 8.3 L Phosphorus 3.0 Magnesium 1.7 Total Bilirubin Direct Bilirubin AST ALT Alkaline Phosphatase B-Natriuretic Peptide Total Protein Albumin Lipase Urine Color Urine Appearance Urine pH Ur Specific Stanton Urine Protein Urine Glucose (UA) Urine Ketones Urine Blood Urine Nitrite Ur Leukocyte Esterase Influenza Type A (PCR) Influenza Type B (PCR) RSV RNA Qual (PCR) SARS-CoV-2 RNA (RT-PCR) 04/24/24 04/24/24 04/24/24 05:25 05:28 07:31 MCV 91.2 MCH 30.0 MCHC 32.9 RDW 15.5 Plt Count 231 MPV 9.1 L Immature Gran % (Auto) 1.3 H Neut % (Auto) 80.6 H Lymph % (Auto) 11.6 L Fountain % (Auto) 5.5 Eos % (Auto) 0.7 Baso % (Auto) 0.3 Lymph # (Auto) 2.3 Fountain # (Auto) 1.1 Eos # (Auto) 0.1 Baso # (Auto) 0.1 Abs Immat Gran (auto) 0.26 H Absolute Neuts (auto) 16.1 H Absolute Nucleated RBC 0.000 Nucleated RBC % (auto) 0.0 PT INR VBG pH 7.33 VBG pCO2 46 VBG pO2 53 VBG HCO3 25 VBG O2 Saturation 81.0 VBG Base Excess -0.8 Anion Gap 10 L Estim Creat Clear Calc 67.8 Estimated GFR > 60 POC Glucose 122 H Random Glucose 130 H Lactic Acid Calcium 8.5 Phosphorus 2.7 Magnesium 1.8 Total Bilirubin Direct Bilirubin AST ALT Alkaline Phosphatase B-Natriuretic Peptide Total Protein Albumin 3.0 L Lipase Urine Color Urine Appearance Urine pH Ur Specific Stanton Urine Protein Urine Glucose (UA) Urine Ketones Urine Blood Urine Nitrite Ur Leukocyte Esterase Influenza Type A (PCR) Influenza Type B (PCR) RSV RNA Qual (PCR) SARS-CoV-2 RNA (RT-PCR) Procedures Date of Service Date of Service: 04/24/24 Progress Note: A&P Assessment and plan (1) Cellulitis: Status: Acute Assessment and Plan: 1. Continue wet to dry dressing changes every 8 hours 2. Continue resuscitation 3. VTE prophylaxis Time Spent With Patient Time: Total time managing care of this patient today ____ minutes. Quality Stroke Does the patient have a stroke diagnosis?: No VTE Prior VTE?: No VTE Risk Level:: Medical - moderate - high VTE Device Contraindication: N/A - Device Ordered VTE Drug Contraindication: N/A - Med Ordered
--- NOTE | 2024-04-24 08:57 | PM.CCPN ---
Subjective Subjective Date of Service: 04/24/24 Interval History: no significant overnight events Critical Care Time (minutes): 60 Physical Exam Vital Signs: Vital Signs: Last Vital Signs Temp 98.2 F 04/24/24 08:00 Pulse 114 H 04/24/24 08:00 Resp 18 04/24/24 08:00 BP 151/73 H 04/24/24 08:00 Pulse Ox 94 04/24/24 08:00 O2 Del Method Nasal Cannula 04/24/24 08:00 O2 Flow Rate 2 04/24/24 08:00 Oxygen Flow Rate 2 04/23/24 11:35 BMI result Body Mass Index 42.4 Const: General: cooperative, healthy appearing, comfortable, no acute distress, well developed, alert, awake and Physically active Orientation/consciousness: patient oriented x3 HEENT: Head: Yes normal to inspection, Yes normocephalic and Yes atraumatic Eyes: General: appearance normal, both eyes and all related structures Neck: Neck: Yes normal visual inspection, Yes full ROM, Yes no meningeal signs, Yes trachea midline and Yes supple Chest: Chest palpation & inspection: normal inspection of the chest Resp: Other: no appreciable rales, rhonchi, wheezing Effort & Inspection: normal respiratory effort GI: Other: appreciable erythema, edema predominantly R abdomen; appreciable bandage, clean, dry, intact Inspection: No Abdominal wall edema and No distended Palpation (GI): Soft to palpation, not firm, nontender, no guarding and not rigid Skin: Other: as described above Neuro: General: patient oriented x3, tone normal, moves all extremities, no meningeal signs and no focal motor deficits Extrem: General: Yes normal to inspection, Yes full ROM, Yes capillary refill normal and Yes no clubbing, cyanosis or edema Psych: Appearance: grossly normal Objective Data Labs 04/24/24 05:25 04/24/24 05:25 Labs: Laboratory Results - last 24 hr 04/23/24 04/23/24 04/23/24 12:08 12:30 16:51 WBC 21.1 H RBC 3.92 L Hgb 11.8 L Hct 35.6 L MCV 90.8 MCH 30.1 MCHC 33.1 RDW 15.2 Plt Count 242 MPV 9.1 L Immature Gran % (Auto) 0.8 H Neut % (Auto) 85.4 H Lymph % (Auto) 9.0 L [place]aney % (Auto) 4.4 Eos % (Auto) 0.1 Baso % (Auto) 0.3 Lymph # (Auto) 1.9 Taney # (Auto) 0.9 Eos # (Auto) 0.0 Baso # (Auto) 0.1 Abs Immat Gran (auto) 0.17 H Absolute Neuts (auto) 18.0 H Absolute Nucleated RBC 0.000 Nucleated RBC % (auto) 0.0 PT 13.2 H INR 1.1 VBG pH VBG pCO2 VBG pO2 VBG HCO3 VBG O2 Saturation VBG Base Excess Sodium 138 Potassium 4.1 Chloride 106 Carbon Dioxide 22 Anion Gap 14 BUN 25 H Creatinine 0.87 Estim Creat Clear Calc 60.4 Estimated GFR > 60 POC Glucose Random Glucose 142 H Lactic Acid 2.2 H* Calcium 8.8 Phosphorus Magnesium 1.2 L* Total Bilirubin 0.5 Direct Bilirubin 0.2 AST 19 ALT 8 Alkaline Phosphatase 62 Troponin I High Sens 4.6 B-Natriuretic Peptide 94 Total Protein 6.3 L Albumin 3.2 L Lipase 8 Urine Color Yellow Urine Appearance Clear Urine pH 5.0 Ur Specific [place] >= 1.030 H Urine Protein Trace Urine Glucose (UA) Negative Urine Ketones Negative Urine Blood Negative Urine Nitrite Negative Ur Leukocyte Esterase Negative Influenza Type A (PCR) NEGATIVE Influenza Type B (PCR) NEGATIVE RSV RNA Qual (PCR) NEGATIVE SARS-CoV-2 RNA (RT-PCR) NEGATIVE 04/23/24 04/23/24 04/23/24 16:59 17:24 18:13 WBC RBC Hgb Hct MCV MCH MCHC RDW Plt Count MPV Immature Gran % (Auto) Neut % (Auto) Lymph % (Auto) Taney % (Auto) Eos % (Auto) Baso % (Auto) Lymph # (Auto) Taney # (Auto) Eos # (Auto) Baso # (Auto) Abs Immat Gran (auto) Absolute Neuts (auto) Absolute Nucleated RBC Nucleated RBC % (auto) PT INR VBG pH VBG pCO2 VBG pO2 VBG HCO3 VBG O2 Saturation VBG Base Excess Sodium Potassium Chloride Carbon Dioxide Anion Gap BUN Creatinine Estim Creat Clear Calc Estimated GFR POC Glucose 129 H 137 H Random Glucose Lactic Acid 2.0 Calcium Phosphorus Magnesium Total Bilirubin Direct Bilirubin AST ALT Alkaline Phosphatase Troponin I High Sens B-Natriuretic Peptide Total Protein Albumin Lipase Urine Color Urine Appearance Urine pH Ur Specific [place] Urine Protein Urine Glucose (UA) Urine Ketones Urine Blood Urine Nitrite Ur Leukocyte Esterase Influenza Type A (PCR) Influenza Type B (PCR) RSV RNA Qual (PCR) SARS-CoV-2 RNA (RT-PCR) 04/23/24 04/23/24 04/24/24 18:56 20:54 02:16 WBC 20.8 H RBC 3.43 L Hgb 10.6 L Hct 31.5 L MCV 91.8 MCH 30.9 MCHC 33.7 RDW 15.4 Plt Count 225 MPV 9.0 L Immature Gran % (Auto) 0.9 H Neut % (Auto) 82.8 H Lymph % (Auto) 10.9 L Taney % (Auto) 4.9 Eos % (Auto) 0.2 Baso % (Auto) 0.3 Lymph # (Auto) 2.3 Taney # (Auto) 1.0 Eos # (Auto) 0.0 Baso # (Auto) 0.1 Abs Immat Gran (auto) 0.19 H Absolute Neuts (auto) 17.2 H Absolute Nucleated RBC 0.000 Nucleated RBC % (auto) 0.0 PT INR VBG pH VBG pCO2 VBG pO2 VBG HCO3 VBG O2 Saturation VBG Base Excess Sodium 138 Potassium 4.3 Chloride 110 H Carbon Dioxide 21 L Anion Gap 11 L BUN 22 H Creatinine 0.79 Estim Creat Clear Calc 66.6 Estimated GFR > 60 POC Glucose 118 H 137 H Random Glucose 156 H Lactic Acid Calcium 8.3 L Phosphorus 3.0 Magnesium 1.7 Total Bilirubin Direct Bilirubin AST ALT Alkaline Phosphatase Troponin I High Sens B-Natriuretic Peptide Total Protein Albumin Lipase Urine Color Urine Appearance Urine pH Ur Specific [place] Urine Protein Urine Glucose (UA) Urine Ketones Urine Blood Urine Nitrite Ur Leukocyte Esterase Influenza Type A (PCR) Influenza Type B (PCR) RSV RNA Qual (PCR) SARS-CoV-2 RNA (RT-PCR) 04/24/24 04/24/24 04/24/24 05:25 05:28 07:31 WBC 19.9 H RBC 3.30 L Hgb 9.9 L Hct 30.1 L MCV 91.2 MCH 30.0 MCHC 32.9 RDW 15.5 Plt Count 231 MPV 9.1 L Immature Gran % (Auto) 1.3 H Neut % (Auto) 80.6 H Lymph % (Auto) 11.6 L Taney % (Auto) 5.5 Eos % (Auto) 0.7 Baso % (Auto) 0.3 Lymph # (Auto) 2.3 Taney # (Auto) 1.1 Eos # (Auto) 0.1 Baso # (Auto) 0.1 Abs Immat Gran (auto) 0.26 H Absolute Neuts (auto) 16.1 H Absolute Nucleated RBC 0.000 Nucleated RBC % (auto) 0.0 PT INR VBG pH 7.33 VBG pCO2 46 VBG pO2 53 VBG HCO3 25 VBG O2 Saturation 81.0 VBG Base Excess -0.8 Sodium 139 Potassium 4.1 Chloride 110 H Carbon Dioxide 23 Anion Gap 10 L BUN 18 H Creatinine 0.80 Estim Creat Clear Calc 67.8 Estimated GFR > 60 POC Glucose 122 H Random Glucose 130 H Lactic Acid Calcium 8.5 Phosphorus 2.7 Magnesium 1.8 Total Bilirubin Direct Bilirubin AST ALT Alkaline Phosphatase Troponin I High Sens B-Natriuretic Peptide Total Protein Albumin 3.0 L Lipase Urine Color Urine Appearance Urine pH Ur Specific [place] Urine Protein Urine Glucose (UA) Urine Ketones Urine Blood Urine Nitrite Ur Leukocyte Esterase Influenza Type A (PCR) Influenza Type B (PCR) RSV RNA Qual (PCR) SARS-CoV-2 RNA (RT-PCR) Progress Note: A&P Assessment and plan (1) Cellulitis: Status: Acute Plan Patient is a 73 Y F w/ asthma, COPD c/b chronic respiratory failure on 2L NC, obesity c/b diabetes mellitus, CASSANDRA, who underwent lap band removal on 03/13 presenting initially to emergency department on 04/23 w/ non-specific symptoms and R abdominal rash, found to have CT A/P c/f abscess, seen by bariatric surgery in ED s/p I/D, though found to be hypotensive N: no acute issues CV: hypotension, c/f septic shock, norepinephrine gtt, wean as tolerated R: no acute issues, asthma COPD c/b chronic respiratory failure on 2L NC GI: cellulitis c/b abscess of abdominal wall in setting of recent lap surgery; diabetic diet : no acute issues; to closely monitor renal indices, electrolytes H: no acute issues; chemical DVT prophylaxis w/ enoxaparin SQ ID: c/f cellulitis c/b abscess, empiric vancomycin/zosyn/clindamycin; to follow-up BCx, any specimen Cx E: diabetes mellitus, insulin sliding scale P: no acute issues Quality Stroke Does the patient have a stroke diagnosis?: No VTE Prior VTE?: No VTE Risk Level:: Medical - moderate - high VTE Device Contraindication: N/A - Device Ordered VTE Drug Contraindication: N/A - Med Ordered
[2024-04-24] MEDS: Acetaminophen 325 MG TABLET 975 MG PO (09:43)
[2024-04-24] MEDS: Enoxaparin Sodium 40 MG/0.4 ML SYRINGE SUBCUT (09:44)
[2024-04-24] MEDS: Albumin Human 25 % 50 ML 100 ML IV (09:44)
[2024-04-24] MEDS: Nystatin Powder 15 GM BOTTLE 1 APPL TOPICAL (09:51)
[2024-04-24 11:20] LABS: Glucose, Whole Blood 189 mg/dL (60-115)
[2024-04-24] MEDS: Insulin Lispro 100 UNIT/ML 3 ML VIAL SUBCUT (12:05)
--- NOTE | 2024-04-24 12:46 | PHA.MEDREC ---
Pharmacy Consult ? Medication Reconciliation Pharmacy has completed the medication reconciliation. Used list and spoke to patient about additional medications
--- NOTE | 2024-04-24 13:06 | HO.WOUND ---
Wound Consult: Initial 73yr old?female admitted to [facility] on 04/23/24 - See progress notes and H&P for detailed history.? Wound consult placed for Abdominal wound and breast and abdominal MASD and fungal dermatitis.? Chart review and discussed with direct care nurse topical wound care orders in place by Surgery team for the abdomen. The Bilateral breast folds and Abdominal fold now have orders for Nystatin. No new topical recommendation needed at this time will defer to surgery for topical orders to Abdominal wound. Recommendations: 1. Turn and Reposition every 2 hours and as needed for patient comfort.? Use pillows or wedges to support off loading positions. 2. Off Load all bony prominences with use of pillows and heel boots if needed.? Apply Preventative foams where needed. ? 3. Monitor for incontinence and moisture control, use barrier creams when needed for prevention and treatment. 4. Provide adequate and supplemental nutrition.? 5. Continue low air loss mattress. 6. When applicable maintain blood glucose levels per Providers order. 7. Abdominal wound - Defer to Surgery topical orders for wet to moist dressing. 8. Bilateral Breast and Abdominal Skin Folds - Cleanse with PH balance wipes, pat dry with soft cloth.? Apply antifungal power to assist with moisture management.? Be sure to dust of excess powder to prevent caking on skin and in folds. Apply per provider orders. Tuck Interdry AG Sheet into skin fold to wick and translocate moisture away from skin fold.? Be sure to leave at least 2 inch of fabric exposed outside of skin fold.? Change after 5 days or when soiled. Re-consult wound care Nurse for wound deterioration or wound changes.
--- NOTE | 2024-04-24 15:00 | MHC.CM.PN ---
Met with pt briefly to review d/c planning needs: pt resides alone, has family support and uses [employer] for O2 needs. Referred to [facility] for possible wound care / IV antibiotics. HCP and [facility] on file. CM to follow for finalization of d/c needs
[2024-04-24 16:45] LABS: Glucose, Whole Blood 144 mg/dL (60-115)
--- NOTE | 2024-04-24 19:27 | PC.NURSE ---
Assumed care of patient at 0700, patient alert and oriented x4 and able to make needs known, surgeon at bedside and requested wet to dry dressing to abdominal site be changed by nursing Q8hr, changed twice this shift, Tylenol given x1 this shift after the first dressing change for pain at site with verbalized relief, redness receding. Urine noted to get pink after Lovenox administration, MD aware, Levophed titrated down as tolerated, see MAR for full details. OOB to chair this afternoon
[2024-04-24 21:26] LABS: Glucose, Whole Blood 136 mg/dL (60-115)
[2024-04-24] MEDS: Donepezil HCl 5 MG TABLET PO (21:30)
[2024-04-24] MEDS: clonazePAM 0.5 MG TABLET PO (21:30)
[2024-04-24 23:40] LABS: Glucose, Whole Blood 110 mg/dL (60-115)
[2024-04-25] VITALS (14 sets, daily range): BP systolic 91–141; BP diastolic 49–66; PULSE 77–96; RESP 15–31; TEMP 36.4–36.9; O2SAT 93–99; BMI 40.0
[2024-04-25] MEDS: Clindamycin Phosphate/D5W 600 MG/50 ML PIGGYBACK 100 MG IV ×3 (01:23→16:57)
[2024-04-25] MEDS: 0.9 % Sodium Chloride Flush 3 ML SYRINGE IVFLUSH ×3 (01:25→18:21)
[2024-04-25] MEDS: Nystatin Powder 15 GM BOTTLE 1 APPL TOPICAL ×3 (01:25→20:31)
[2024-04-25] MEDS: Piperacillin Sodium/Tazobactam 4.5 GM in 0.9 % Sodium Chloride 100 ML IV ×3 (04:47→20:24)
[2024-04-25] MEDS: Acetaminophen 325 MG TABLET 975 MG PO (04:50)
[2024-04-25 06:01] LABS: MANUAL DIFF FLAG NO
[2024-04-25 06:04] LABS: Basophils Percent Auto 0.2 % (0-2); Eosinophils Absolute Auto 0.2 X10*3/uL (0.0-0.4); Eosinophils Percent Auto 1.3 % (0-4); Hematocrit 27.4 % (37.0-47.0); Hemoglobin 9.1 g/dl (12.0-16.0); Imm Gran Abs Auto 0.11 X10*3/uL (0.00-0.03); Imm Gran Pct Auto 0.8 % (0.0-0.4); Lymphocytes Percent Auto 15.4 % (20-40); Mean Corpuscular HGB Conc 33.2 g/dl (31.0-35.0); Mean Corpuscular Volume 90.4 fL (80.0-98.0); Mean Platelet Volume 9.3 fL (9.4-12.3); Monocytes Absolute Auto 0.6 X10*3/uL (0.1-1.2); Monocytes Percent Auto 4.7 % (2-11); Neutrophils Absolute Auto 10.1 x10*3/uL (2.0-8.3); Neutrophils Percent Auto 77.6 % (45-73); Platelet Count 206 X10*3/uL (160-400); Red Blood Count 3.03 X10*6/uL (4.20-5.50); Red Cell Distribution Width 15.2 % (11.0-16.0); White Blood Count 13.1 X10*3/uL (4.8-10.8)
[2024-04-25] MEDS: vancomycin HCL 750 MG in 0.9 % Sodium Chloride 250 ML 265 MG IV ×2 (06:18→18:22)
[2024-04-25 06:27] LABS: Albumin Level 2.9 g/dL (3.5-5.0); Anion Gap 13 (12-20); Blood Urea Nitrogen 15 mg/dL (9-16); Calcium 8.9 mg/dL (8.4-10.2); Carbon Dioxide 24 mmol/L (22-29); Chloride 107 mmol/L (96-108); Estimated Glomerular Filt Rate > 60; Glucose Random 109 mg/dL (60-115); Magnesium 1.5 mg/dL (1.6-2.6); Potassium 4.1 mmol/L (3.3-5.1); Sodium 140 mmol/L (135-145)
[2024-04-25 07:29] LABS: Glucose, Whole Blood 105 mg/dL (60-115)
[2024-04-25] MEDS: Magnesium Sulfate/D5W 1 GM/100 ML PIGGYBACK IV (07:34)
--- NOTE | 2024-04-25 07:34 | P.PNGS_ITS ---
Subjective Subjective Date of Service: 04/25/24 Interval history: Feels better. Pain has improved. Off the Levophed Physical Exam 2 Vital Signs: Vital Signs: Last Vital Signs Temp 97.6 F 04/25/24 04:00 Pulse 80 04/25/24 07:00 Resp 20 04/25/24 07:00 BP 111/49 L 04/25/24 07:00 Pulse Ox 99 04/25/24 07:00 O2 Del Method Nasal Cannula 04/25/24 07:00 O2 Flow Rate 2 04/25/24 07:00 Oxygen Flow Rate 2 04/23/24 11:35 BMI result Body Mass Index 42.4 Skin: Rashes: rashes noted (Has improved in terms of surface area) Wounds: wounds noted (clean, on dressing changes every 8 hours) Objective Data Active Medications Acetaminophen (Acetaminophen 325 Mg Tablet) 975 mg PO Q6H PRN PRN Reason: Pain, Moderate(Pain Scale 4-6) Last Admin: 04/25/24 04:50 Dose: 975 mg Documented By: RENAE Albuterol Sulfate (Albuterol Sulfate (0.083%) 2.5 Mg/3 Ml Vial.Neb) 2.5 mg INHALE Q4H PRN PRN Reason: Wheezing Atorvastatin Calcium (Atorvastatin Calcium 40 Mg Tablet) 40 mg PO DAILY [facility] Clonazepam (Clonazepam 0.5 Mg Tablet) 0.5 mg PO BID PRN PRN Reason: Anxiety Last Admin: 04/24/24 21:30 Dose: 0.5 mg Documented By: DILIP Dextrose (Dextrose 50 % 25 Gm/50 Ml Syringe) 25 gm IVPUSH Q15M PRN; Protocol PRN Reason: per Hypoglycemia Standing Ord. Donepezil HCl (Donepezil Hcl 5 Mg Tablet) 5 mg PO BEDTIME [facility] Last Admin: 04/24/24 21:30 Dose: 5 mg Documented By: DILIP Enoxaparin Sodium (Enoxaparin Sodium 40 Mg/0.4 Ml Syringe) 40 mg SUBCUT DAILY [facility] Last Admin: 04/24/24 09:44 Dose: 40 mg Documented By: GILBERTO Glucose (Glucose Gel 15 Gm Gel..Gram.) 15 gm PO Q15M PRN; Protocol PRN Reason: per Hypoglycemia Standing Ord. Norepinephrine Bitartrate (Levophed) 8 mg in 250 mls @ 0 mls/hr IVCONT .Q0M [facility]; Protocol Last Titration: 04/24/24 19:57 Dose: 0 mcg/kg/min, 0 mls/hr Documented By: DILIP Clindamycin Phosphate (Cleocin) 600 mg in 50 mls @ 100 mls/hr IV Q8H [facility] Last Infusion: 04/25/24 01:58 Dose: Infused Documented By: DILIP Piperacillin Sod/Tazobactam (Sod 4.5 gm/ Sodium Chloride) 100 mls @ 200 mls/hr IV Q8H [facility] Last Infusion: 04/25/24 05:34 Dose: Infused Documented By: DILIP Vancomycin HCl 750 mg/ Sodium (Chloride) 265 mls @ 265 mls/hr IV Q12H [facility] Last Infusion: 04/25/24 07:30 Dose: Infused Documented By: QIAN Magnesium Sulfate/Dextrose (Magnesium Sulfate/D5w) 1 gm in 100 mls @ 100 mls/hr IV ONCE ONE Stop: 04/25/24 07:46 Insulin Human Lispro (Insulin Lispro 100 Unit/Ml 3 Ml Vial) 0 unit SUBCUT QIDACHS [facility]; Protocol Last Admin: 04/25/24 07:31 Dose: Not Given Documented By: QIAN Non-Admin Reason: No Insulin Coverage Melatonin (Melatonin 3 Mg Tablet) 9 mg PO BEDTIME PRN PRN Reason: Insomnia Nystatin (Nystatin Powder 15 Gm Bottle) 1 appl TOPICAL BID [facility]; Protocol Last Admin: 04/25/24 01:25 Dose: 1 appl Documented By: DILIP Pharmacy Consult (Consult Rx Vancomycin Dosing) 1 each MISCELLANE DAILY PRN PRN Reason: Consult order Sodium Chloride (0.9 % Sodium Chloride Flush 3 Ml Syringe) 3 ml IVFLUSH QSHIFT [facility] Last Admin: 04/25/24 01:25 Dose: 3 ml Documented By: DILIP Labs 04/25/24 05:30 04/25/24 05:30 Labs: Laboratory Results - last 24 hr 04/24/24 04/24/24 04/24/24 07:31 11:10 16:41 MCV MCH MCHC RDW Plt Count MPV Immature Gran % (Auto) Neut % (Auto) Lymph % (Auto) [place] % (Auto) Eos % (Auto) Baso % (Auto) Lymph # (Auto) [place] # (Auto) Eos # (Auto) Baso # (Auto) Abs Immat Gran (auto) Absolute Neuts (auto) Absolute Nucleated RBC Nucleated RBC % (auto) Anion Gap Estim Creat Clear Calc Estimated GFR POC Glucose 122 H 189 H 144 H Random Glucose Calcium Phosphorus Magnesium Albumin 04/24/24 04/24/24 04/25/24 21:20 23:24 05:30 MCV 90.4 MCH 30.0 MCHC 33.2 RDW 15.2 Plt Count 206 MPV 9.3 L Immature Gran % (Auto) 0.8 H Neut % (Auto) 77.6 H Lymph % (Auto) 15.4 L [place] % (Auto) 4.7 Eos % (Auto) 1.3 Baso % (Auto) 0.2 Lymph # (Auto) 2.0 [place] # (Auto) 0.6 Eos # (Auto) 0.2 Baso # (Auto) 0.0 Abs Immat Gran (auto) 0.11 H Absolute Neuts (auto) 10.1 H Absolute Nucleated RBC 0.000 Nucleated RBC % (auto) 0.0 Anion Gap 13 Estim Creat Clear Calc 81.0 Estimated GFR > 60 POC Glucose 136 H 110 Random Glucose 109 Calcium 8.9 Phosphorus 3.0 Magnesium 1.5 L Albumin 2.9 L 04/25/24 07:25 MCV MCH MCHC RDW Plt Count MPV Immature Gran % (Auto) Neut % (Auto) Lymph % (Auto) [place] % (Auto) Eos % (Auto) Baso % (Auto) Lymph # (Auto) [place] # (Auto) Eos # (Auto) Baso # (Auto) Abs Immat Gran (auto) Absolute Neuts (auto) Absolute Nucleated RBC Nucleated RBC % (auto) Anion Gap Estim Creat Clear Calc Estimated GFR POC Glucose 105 Random Glucose Calcium Phosphorus Magnesium Albumin Microbiology Microbiology Results: Microbiology 04/23/24 12:30 Blood Culture - Preliminary Blood - Venous No growth after 24 hours. 04/23/24 12:08 Blood Culture - Preliminary Blood - Venous No growth after 24 hours. Procedures Date of Service Date of Service: 04/25/24 Progress Note: A&P Assessment and plan (1) Cellulitis: Status: Acute Assessment and Plan: 1) Continue wet to dry changes every 8 hours 2) Continue antibiotics We will continue to follow daily Time Spent With Patient Time: Total time managing care of this patient today ___15_ minutes. Quality Stroke Does the patient have a stroke diagnosis?: No VTE Prior VTE?: No VTE Risk Level:: Medical - moderate - high VTE Device Contraindication: N/A - Device Ordered VTE Drug Contraindication: N/A - Med Ordered
--- NOTE | 2024-04-25 08:18 | PM.CCPN ---
Subjective Subjective Date of Service: 04/25/24 Interval History: interval improvement hypotension, off vasopressors Critical Care Time (minutes): 0 Physical Exam Vital Signs: Vital Signs: Last Vital Signs Temp 97.9 F 04/25/24 08:00 Pulse 85 04/25/24 08:00 Resp 20 04/25/24 08:00 BP 122/53 L 04/25/24 08:00 Pulse Ox 99 04/25/24 08:00 O2 Del Method Nasal Cannula 04/25/24 08:00 O2 Flow Rate 2 04/25/24 08:00 Oxygen Flow Rate 2 04/23/24 11:35 BMI result Body Mass Index 42.4 Const: General: cooperative, healthy appearing, comfortable, no acute distress, well developed, alert, awake and Physically active Orientation/consciousness: patient oriented x3 HEENT: Head: Yes normal to inspection, Yes normocephalic and Yes atraumatic Eyes: General: appearance normal, both eyes and all related structures Neck: Neck: Yes normal visual inspection, Yes full ROM, Yes no meningeal signs, Yes trachea midline and Yes supple Chest: Chest palpation & inspection: normal inspection of the chest Resp: Other: diminished breath sounds throughout; no appreciable overt rales, rhonchi, wheezing Effort & Inspection: normal respiratory effort Cardio: Rate: regular rate Rhythm: regular rhythm GI: Other: appreciable erythma, edema, improved from yesterday; bandage clean, dry, intact; some appreciable tenderness to palpation throughout; no appreciable guarding, rebound Skin: Other: as described above Neuro: General: patient oriented x3, tone normal, moves all extremities, no meningeal signs and no focal motor deficits Extrem: General: Yes normal to inspection, Yes full ROM, Yes capillary refill normal and Yes no clubbing, cyanosis or edema Psych: Appearance: grossly normal Objective Data Labs 04/25/24 05:30 04/25/24 05:30 Labs: Laboratory Results - last 24 hr 04/24/24 04/24/24 04/24/24 11:10 16:41 21:20 WBC RBC Hgb Hct MCV MCH MCHC RDW Plt Count MPV Immature Gran % (Auto) Neut % (Auto) Lymph % (Auto) [place] % (Auto) Eos % (Auto) Baso % (Auto) Lymph # (Auto) [place] # (Auto) Eos # (Auto) Baso # (Auto) Abs Immat Gran (auto) Absolute Neuts (auto) Absolute Nucleated RBC Nucleated RBC % (auto) Sodium Potassium Chloride Carbon Dioxide Anion Gap BUN Creatinine Estim Creat Clear Calc Estimated GFR POC Glucose 189 H 144 H 136 H Random Glucose Calcium Phosphorus Magnesium Albumin 04/24/24 04/25/24 04/25/24 23:24 05:30 07:25 WBC 13.1 H RBC 3.03 L Hgb 9.1 L Hct 27.4 L MCV 90.4 MCH 30.0 MCHC 33.2 RDW 15.2 Plt Count 206 MPV 9.3 L Immature Gran % (Auto) 0.8 H Neut % (Auto) 77.6 H Lymph % (Auto) 15.4 L [place] % (Auto) 4.7 Eos % (Auto) 1.3 Baso % (Auto) 0.2 Lymph # (Auto) 2.0 [place] # (Auto) 0.6 Eos # (Auto) 0.2 Baso # (Auto) 0.0 Abs Immat Gran (auto) 0.11 H Absolute Neuts (auto) 10.1 H Absolute Nucleated RBC 0.000 Nucleated RBC % (auto) 0.0 Sodium 140 Potassium 4.1 Chloride 107 Carbon Dioxide 24 Anion Gap 13 BUN 15 Creatinine 0.67 Estim Creat Clear Calc 81.0 Estimated GFR > 60 POC Glucose 110 105 Random Glucose 109 Calcium 8.9 Phosphorus 3.0 Magnesium 1.5 L Albumin 2.9 L Microbiology Microbiology Results: Microbiology 04/23/24 12:30 Blood - Venous Blood Culture - Preliminary No growth after 24 hours. 04/23/24 12:08 Blood - Venous Blood Culture - Preliminary No growth after 24 hours. Progress Note: A&P Assessment and plan (1) Chronic respiratory failure: Status: Acute (2) CASSANDRA (obstructive sleep apnea): Status: Acute (3) Cellulitis: Status: Acute Plan Patient is a 73 Y F w/ asthma, COPD c/b chronic respiratory failure on 2L NC, obesity c/b diabetes mellitus, CASSANDRA, who underwent lap band removal on 03/13 presenting initially to emergency department on 04/23 w/ non-specific symptoms and R abdominal rash, found to have CT A/P c/f abscess, seen by bariatric surgery in ED s/p I/D, though found to be hypotensive N: no acute issues CV: hypotension, c/f septic shock, resolved R: no acute issues, asthma COPD c/b chronic respiratory failure on 2L NC; CASSANDRA, prescribed non-invasive in PM, though unable to tolerate GI: cellulitis c/b abscess of abdominal wall in setting of recent lap surgery; diabetic diet : no acute issues; to closely monitor renal indices, electrolytes H: no acute issues; chemical DVT prophylaxis w/ enoxaparin SQ ID: c/f cellulitis c/b abscess, empiric vancomycin/zosyn/clindamycin; to follow-up BCx, any specimen Cx E: diabetes mellitus, insulin sliding scale P: no acute issues Quality Stroke Does the patient have a stroke diagnosis?: No VTE Prior VTE?: No VTE Risk Level:: Medical - moderate - high VTE Device Contraindication: N/A - Device Ordered VTE Drug Contraindication: N/A - Med Ordered
[2024-04-25] MEDS: Albumin Human 25 % 50 ML 100 ML IV (09:28)
[2024-04-25] MEDS: Atorvastatin Calcium 40 MG TABLET PO (09:31)
[2024-04-25] MEDS: Enoxaparin Sodium 40 MG/0.4 ML SYRINGE SUBCUT (09:32)
[2024-04-25 11:39] LABS: Glucose, Whole Blood 171 mg/dL (60-115)
[2024-04-25] MEDS: Insulin Lispro 100 UNIT/ML 3 ML VIAL SUBCUT ×3 (11:59→20:23)
--- NOTE | 2024-04-25 14:33 | PM.EVENT ---
Event Note Date of Service: 04/25/24 Event Note: This is a 73 Y F w/ asthma, COPD and chronic respiratory failure on 2L NC, obesity, diabetes mellitus, CASSANDRA, who underwent lap band removal on 03/13 initially presented to the emergency department on 04/23 w/ non-specific symptoms and R abdominal rash, found to have CT A/P c/f abscess, seen by bariatric surgery in ED s/p I/D, though found to be hypotensive and admitted to the ICU for vasopressor support. Vascopressors were discontinued 04/24 and she was downgraded to the medical floor on April 25 Septic shock Due to cellulitis/abscess of abdominal wall in the setting of recent lab band removal Status post ICU stay requiring pressor support Currently on vancomycin, Zosyn, clindamycin Cultures negative at this time bariatric surgery following COPD/chronic respiratory failure On baseline 2 L of supplemental oxygen Diabetes SSI; follow POCs blood sugar controlled without long acting insulin hold metformin, monjaro HTN lisinopril has been on hold mood klonopin, aricept continued will resume cymbalta HTN continue statin DVT prophylaxis/Lovenox Time Spent With Patient Time: Total time managing care of this patient today ____ minutes.
[2024-04-25 15:31] LABS: Estimated Average Glucose 154 mg/dL; Hemoglobin A1C 129.3974 umol/L; Total Hemoglobin (HGBA1C) 2436.4148 umol/L
[2024-04-25 16:12] LABS: Glucose, Whole Blood 156 mg/dL (60-115)
[2024-04-25 16:38] LABS: Vancomycin Random 14.5 mcg/mL (15-20)
--- NOTE | 2024-04-25 16:48 | HE.PHANOTE ---
RE: VANCO DOSING Trough came back as 14.5 mg/L. Continue with dose of 750 mg q12h, next trough is scheduled for 04/26/24 @1600.
--- NOTE | 2024-04-25 19:28 | HO.SKINPHOTO ---
Location: Category: Stage: Length: Width: Depth: cm Location: Category: Stage: Length: Width: Depth: cm Location: Category: Stage: Length: Width: Depth: cm Location: Category: Stage: Length: Width: Depth: cm Location: Category: Stage: Length: Width: Depth: cm Location: Category: Stage: Length: Width: Depth: cm
[2024-04-25 19:48] LABS: Glucose, Whole Blood 155 mg/dL (60-115)
[2024-04-25] MEDS: Sucralfate Oral Suspension 1 GM/10 ML ORAL.SUSP PO (20:24)
[2024-04-25] MEDS: Donepezil HCl 5 MG TABLET PO (20:24)
[2024-04-25] MEDS: clonazePAM 0.5 MG TABLET PO (20:42)
[2024-04-26] VITALS: BP 121/60; PULSE 82; RESP 20; TEMP 36.5; O2SAT 99
[2024-04-26] MEDS: Melatonin 3 MG TABLET 9 MG PO (01:07)
[2024-04-26] MEDS: Clindamycin Phosphate/D5W 600 MG/50 ML PIGGYBACK 100 MG IV (01:07)
[2024-04-26] MEDS: 0.9 % Sodium Chloride Flush 3 ML SYRINGE IVFLUSH ×3 (01:18→17:11)
[2024-04-26 03:28] VITALS: BP 130/65; PULSE 88; RESP 20; TEMP 36.6; O2SAT 98
[2024-04-26] MEDS: Piperacillin Sodium/Tazobactam 4.5 GM in 0.9 % Sodium Chloride 100 ML IV ×2 (04:04→12:05)
[2024-04-26 06:00] VITALS: BMI 38.6
[2024-04-26] MEDS: Omeprazole 20 MG CAPSULE.DR PO (06:48)
[2024-04-26] MEDS: vancomycin HCL 750 MG in 0.9 % Sodium Chloride 250 ML 265 MG IV ×2 (06:48→17:10)
[2024-04-26 07:03] LABS: MANUAL DIFF FLAG NO
[2024-04-26 07:08] LABS: Basophils Percent Auto 0.4 % (0-2); Eosinophils Absolute Auto 0.2 X10*3/uL (0.0-0.4); Eosinophils Percent Auto 1.9 % (0-4); Hematocrit 30.9 % (37.0-47.0); Hemoglobin 10.3 g/dl (12.0-16.0); Imm Gran Abs Auto 0.08 X10*3/uL (0.00-0.03); Imm Gran Pct Auto 0.8 % (0.0-0.4); Lymphocytes Absolute Auto 2.7 X10*3/uL (1.2-4.9); Lymphocytes Percent Auto 27.1 % (20-40); Mean Corpuscular HGB Conc 33.3 g/dl (31.0-35.0); Mean Corpuscular Hemoglobin 29.9 pg (27.0-33.0); Mean Corpuscular Volume 89.8 fL (80.0-98.0); Mean Platelet Volume 9.1 fL (9.4-12.3); Monocytes Absolute Auto 0.6 X10*3/uL (0.1-1.2); Monocytes Percent Auto 5.8 % (2-11); Neutrophils Absolute Auto 6.3 x10*3/uL (2.0-8.3); Platelet Count 246 X10*3/uL (160-400); Red Blood Count 3.44 X10*6/uL (4.20-5.50); Red Cell Distribution Width 15.5 % (11.0-16.0); White Blood Count 9.8 X10*3/uL (4.8-10.8)
[2024-04-26 07:33] VITALS: BP 104/55; PULSE 71; RESP 14; TEMP 36; O2SAT 97
[2024-04-26 07:36] LABS: Anion Gap 11 (12-20); Blood Urea Nitrogen 12 mg/dL (9-16); Calcium 9.5 mg/dL (8.4-10.2); Carbon Dioxide 28 mmol/L (22-29); Chloride 105 mmol/L (96-108); Creatinine Clr Calc Pharmacy 79.5; Estimated Glomerular Filt Rate > 60; Glucose Random 124 mg/dL (60-115); Magnesium 1.5 mg/dL (1.6-2.6); Phosphorus 3.7 mg/dL (2.7-4.5); Potassium 4.4 mmol/L (3.3-5.1); Sodium 140 mmol/L (135-145)
--- NOTE | 2024-04-26 08:00 | PM.PNGS ---
Subjective Subjective Date of Service: 04/26/24 Interval history: Feels better. No pain. Was transferred to the floor. WBC normalized Physical Exam Vital Signs: Vital Signs: Last Vital Signs Temp 96.8 F 04/26/24 07:33 Pulse 71 04/26/24 07:33 Resp 14 04/26/24 07:33 BP 104/55 L 04/26/24 07:33 Pulse Ox 97 04/26/24 07:33 O2 Del Method Nasal Cannula 04/26/24 07:33 O2 Flow Rate 3 04/26/24 07:33 Oxygen Flow Rate 2 04/23/24 11:35 BMI result Body Mass Index 40.0 Skin: Rashes: rashes noted (significantly improved in surface area) Wounds: wounds noted (wound clean on wet to dry changes) Objective Data Active Medications Acetaminophen (Acetaminophen 325 Mg Tablet) 975 mg PO Q6H PRN PRN Reason: Pain, Moderate(Pain Scale 4-6) Last Admin: 04/25/24 04:50 Dose: 975 mg Documented By: RENAE Albuterol Sulfate (Albuterol Sulfate (0.083%) 2.5 Mg/3 Ml Vial.Neb) 2.5 mg INHALE Q4H PRN PRN Reason: Wheezing Atorvastatin Calcium (Atorvastatin Calcium 40 Mg Tablet) 40 mg PO DAILY [facility] Last Admin: 04/25/24 09:31 Dose: 40 mg Documented By: QIAN Clindamycin HCl (Clindamycin Hcl 300 Mg Capsule) 300 mg PO Q8H [facility] Clonazepam (Clonazepam 0.5 Mg Tablet) 0.5 mg PO BID PRN PRN Reason: Anxiety Last Admin: 04/25/24 20:42 Dose: 0.5 mg Documented By: MANNY Dextrose (Dextrose 50 % 25 Gm/50 Ml Syringe) 25 gm IVPUSH Q15M PRN; Protocol PRN Reason: per Hypoglycemia Standing Ord. Donepezil HCl (Donepezil Hcl 5 Mg Tablet) 5 mg PO BEDTIME [facility] Last Admin: 04/25/24 20:24 Dose: 5 mg Documented By: MANNY Duloxetine HCl (Duloxetine Hcl 60 Mg Capsule.Dr) 60 mg PO DAILY [facility] Enoxaparin Sodium (Enoxaparin Sodium 40 Mg/0.4 Ml Syringe) 40 mg SUBCUT DAILY [facility] Last Admin: 04/25/24 09:32 Dose: 40 mg Documented By: QIAN Glucose (Glucose Gel 15 Gm Gel..Gram.) 15 gm PO Q15M PRN; Protocol PRN Reason: per Hypoglycemia Standing Ord. Piperacillin Sod/Tazobactam (Sod 4.5 gm/ Sodium Chloride) 100 mls @ 200 mls/hr IV Q8H [facility] Last Infusion: 04/26/24 04:34 Dose: Infused Documented By: INNA Vancomycin HCl 750 mg/ Sodium (Chloride) 265 mls @ 265 mls/hr IV Q12H [facility] Last Admin: 04/26/24 06:48 Dose: 265 mls/hr Documented By: EBONY Magnesium Sulfate (Magnesium Sulfate/H2o) 2 gm in 50 mls @ 25 mls/hr IV ONCE ONE Stop: 04/26/24 09:43 Insulin Human Lispro (Insulin Lispro 100 Unit/Ml 3 Ml Vial) 0 unit SUBCUT QIDACHS [facility]; Protocol Last Admin: 04/25/24 20:23 Dose: 2 unit Documented By: MANNY Lidocaine (Lidocaine 4 % Patch Adh..Patch) 1 patch TRANSDERMA DAILY PRN PRN Reason: Pain Melatonin (Melatonin 3 Mg Tablet) 9 mg PO BEDTIME PRN PRN Reason: Insomnia Last Admin: 04/26/24 01:07 Dose: 9 mg Documented By: EBONY Montelukast Sodium (Montelukast Sodium 10 Mg Tablet) 10 mg PO DAILY [facility] Nystatin (Nystatin Powder 15 Gm Bottle) 1 appl TOPICAL BID [facility]; Protocol Last Admin: 04/25/24 20:31 Dose: 1 appl Documented By: MANYN Omeprazole (Omeprazole 20 Mg Capsule.Dr) 20 mg PO DAILY@0630 [facility] Last Admin: 04/26/24 06:48 Dose: 20 mg Documented By: EBONY Pharmacy Consult (Consult Rx Vancomycin Dosing) 1 each MISCELLANE DAILY PRN PRN Reason: Consult order Sodium Chloride (0.9 % Sodium Chloride Flush 3 Ml Syringe) 3 ml IVFLUSH QSHIFT [facility] Last Admin: 04/26/24 01:18 Dose: 3 ml Documented By: EBONY Sucralfate (Sucralfate Oral Suspension 1 Gm/10 Ml Oral.Susp) 1 gm PO BID [facility] Last Admin: 04/25/24 20:24 Dose: 1 gm Documented By: MANNY Labs 04/26/24 06:39 04/26/24 06:39 Labs: Laboratory Results - last 24 hr 04/25/24 04/25/24 04/25/24 05:30 11:36 16:09 MCV MCH MCHC RDW Plt Count MPV Immature Gran % (Auto) Neut % (Auto) Lymph % (Auto) [place] % (Auto) Eos % (Auto) Baso % (Auto) Lymph # (Auto) [place] # (Auto) Eos # (Auto) Baso # (Auto) Abs Immat Gran (auto) Absolute Neuts (auto) Absolute Nucleated RBC Nucleated RBC % (auto) Anion Gap Estim Creat Clear Calc Estimated GFR POC Glucose 171 H 156 H Random Glucose Estimat Average Glucose 154 Hemoglobin A1c % 7.0 H Calcium Phosphorus Magnesium Random Vancomycin 04/25/24 04/25/24 04/26/24 16:18 19:37 06:39 MCV 89.8 MCH 29.9 MCHC 33.3 RDW 15.5 Plt Count 246 MPV 9.1 L Immature Gran % (Auto) 0.8 H Neut % (Auto) 64.0 Lymph % (Auto) 27.1 [place] % (Auto) 5.8 Eos % (Auto) 1.9 Baso % (Auto) 0.4 Lymph # (Auto) 2.7 [place] # (Auto) 0.6 Eos # (Auto) 0.2 Baso # (Auto) 0.0 Abs Immat Gran (auto) 0.08 H Absolute Neuts (auto) 6.3 Absolute Nucleated RBC 0.000 Nucleated RBC % (auto) 0.0 Anion Gap 11 L Estim Creat Clear Calc 79.5 Estimated GFR > 60 POC Glucose 155 H Random Glucose 124 H Estimat Average Glucose Hemoglobin A1c % Calcium 9.5 D Phosphorus 3.7 Magnesium 1.5 L Random Vancomycin 14.5 L Microbiology Microbiology Results: Microbiology 04/23/24 12:30 Blood Culture - Preliminary Blood - Venous No growth after 48 hours. 04/23/24 12:08 Blood Culture - Preliminary Blood - Venous No growth after 48 hours. Procedures Date of Service Date of Service: 04/26/24 Progress Note: A&P Assessment and plan (1) Cellulitis: Status: Acute Assessment and Plan: 1. Continue wet to dry dressing changes every 8 hours 2. continue antibiotics 3. We will follow her at the office for the wound and weight loss after discharge Time Spent With Patient Time: Total time managing care of this patient today ____ minutes. Quality Stroke Does the patient have a stroke diagnosis?: No VTE Prior VTE?: No VTE Risk Level:: Medical - moderate - high VTE Device Contraindication: N/A - Device Ordered VTE Drug Contraindication: N/A - Med Ordered
[2024-04-26] MEDS: Acetaminophen 325 MG TABLET 975 MG PO (08:55)
[2024-04-26] MEDS: DULoxetine HCl 60 MG CAPSULE.DR PO (08:55)
[2024-04-26] MEDS: Montelukast Sodium 10 MG TABLET PO (08:55)
[2024-04-26] MEDS: Clindamycin HCL 300 MG CAPSULE PO ×2 (08:55→17:10)
[2024-04-26] MEDS: Atorvastatin Calcium 40 MG TABLET PO (08:55)
[2024-04-26] MEDS: Insulin Lispro 100 UNIT/ML 3 ML VIAL SUBCUT ×3 (08:56→17:10)
[2024-04-26] MEDS: Enoxaparin Sodium 40 MG/0.4 ML SYRINGE SUBCUT (08:57)
[2024-04-26] MEDS: Magnesium Sulfate/H2O 2 GM/50 ML PIGGYBACK IV (08:57)
[2024-04-26] MEDS: Nystatin Powder 15 GM BOTTLE 1 APPL TOPICAL (08:58)
[2024-04-26] MEDS: Sucralfate Oral Suspension 1 GM/10 ML ORAL.SUSP PO (08:58)
[2024-04-26 10:54] VITALS: BP 104/55; PULSE 71; O2SAT 97
[2024-04-26 11:12] VITALS: BP 117/59; PULSE 81; RESP 14; TEMP 36.2; O2SAT 100
[2024-04-26 11:27] LABS: Glucose, Whole Blood 180 mg/dL (60-115)
--- NOTE | 2024-04-26 12:52 | W.MHC.F2F ---
Service Date Service Date: 04/26/24 Encounter Date of encounter: 04/26/24 Reasons for Services Signs and symptoms assessed: needs correction for wound care Reason for correction: wound care (as per discharge instructions) Reason for physical therapy: home safety and mobility and therapeutic exercises Overseeing Care: Rito Olivas Homebound: Leaving the home is medically contraindicated at this time without the asist of a device and/or another person due th the listed conditions above and below. Reason homebound: unsteady gait / fall risk Certification: Based on the above findings, I certify that this patient is confined to the home and needs intermittent correction care, physical therapy and/or speech therapy, or continues to need occupational therapy. The patient is under my care, and I have initiated the establishment of the plan of care. The patient will be followed by a physician who will periodically review the plan of care. Time Spent With Patient Time: Total time managing care of this patient today ____ minutes.
[2024-04-26 15:35] VITALS: BP 110/58; PULSE 84; RESP 16; TEMP 36.2; O2SAT 99
--- NOTE | 2024-04-26 15:35 | MHC.CM.PN ---
Pt is medically cleared for discharge home with new [facility] services and resumption of home O2 through [facility]. Pt will transport home via [facility]. [facility] transport auth received, booking ID#?[id number].
--- NOTE | 2024-04-26 16:20 | PM.DS ---
DS: Providers Provider Date of Service: 04/26/24 Date of admission: 04/23/24 16:58 Date of discharge: 04/26/24 Primary care physician: Rito Olivas MD Consults: 04/23/24 18:31 Consult to Wound Care Routine Reason for consultation: abd surgical wound, fungal/ maceration to unser breast and perineal Attending physician on discharge: Jarod Navarro Discharging clinician: Namrata Beltran DS: Diagnosis Discharge Diagnosis (1) Cellulitis: Status: Acute DS: Summary Hospital Course Hospital Course: From H&P on the day of admission Patient is a 73 Y F w/ asthma, COPD c/b chronic respiratory failure on 2L NC, obesity c/b diabetes mellitus, CASSANDRA, who underwent lap band removal on 03/13 presenting initially to emergency department on 04/23 w/ non-specific symptoms and R abdominal rash, found to have CT A/P c/f abscess, seen by bariatric surgery in ED s/p I/D, though found to be hypotensive, now on vasopressors; plan to admit ICU, continue antibiotics and supportive measures including vasopressors Septic shock Due to cellulitis/abscess of abdominal wall in the setting of recent lab band removal Status post ICU stay requiring pressor support. treated with IV vancomycin, Zosyn, clindamycin. Cultures have remained negative. Her erythema improved, blood pressure remained stable off of vasopressors. Leukocytosis resolved and she is now stable for discharge home.bariatric surgery followed during hospital stay and recommended wet-to-dry dressings. We will be discharged home with VNA services for assistance with wound care. She also has a [employer] and granddaughter who can assist with wound care as well. COPD/chronic respiratory failure Remain On baseline 2 L of supplemental oxygen Diabetes SSI; follow POCs metformin, monjaro were held during hospital stay. We will reduce dose of insulin upon discharge as blood sugars have been fairly well controlled with sliding scale during hospitalization. We will be discharged home with VNA services for close monitoring of blood sugar HTN lisinopril has been on hold during hospitalization. We will hold upon discharge. May need to be resumed as outpatient if blood pressure trends up. We will be sent home with VNA services for close blood pressure monitoring Time Attestation Discharge Coordination Time (in mins): 36 Quality: Safe Use of Opioids Does Pt have an Active Cancer Diagnosis on the Problem List?: No Quality: Stroke Does the patient have a stroke diagnosis?: No Physical Exam Vital Signs: Vital Signs: Last Vital Signs Temp 97.2 F 04/26/24 15:35 Pulse 84 04/26/24 15:35 Resp 16 04/26/24 15:35 BP 110/58 L 04/26/24 15:35 Pulse Ox 99 04/26/24 15:35 O2 Del Method Nasal Cannula 04/26/24 15:35 O2 Flow Rate 2 04/26/24 15:35 Oxygen Flow Rate 2 04/23/24 11:35 BMI result Body Mass Index 38.6 Const: General: comfortable, no acute distress, alert, awake and Physically active Nutritional Appearance: overweight Orientation/consciousness: patient oriented x3 Resp: Effort & Inspection: normal respiratory effort, able to speak in complete sentences, no respiratory distress and no use of accessory muscles Cardio: Rate: regular rate GI: Other: rash with mild abdominal wall erythema; dressing clean and dry Inspection: No distended Palpation (GI): not soft and nontender Neuro: General: patient oriented x3 DS: Data Data Completed and Pending Completed studies during hospitalization [Text1]: Procedures Assistance with Respiratory Ventilation, Less than 24 Consecutive Hours, Continuous Positive Airway Pressure (10/23/23) Labs on day of discharge: Laboratory Results - last 24 hr 04/25/24 04/25/24 04/26/24 16:18 19:37 06:39 WBC 9.8 RBC 3.44 L Hgb 10.3 L Hct 30.9 L MCV 89.8 MCH 29.9 MCHC 33.3 RDW 15.5 Plt Count 246 MPV 9.1 L Immature Gran % (Auto) 0.8 H Neut % (Auto) 64.0 Lymph % (Auto) 27.1 [place] % (Auto) 5.8 Eos % (Auto) 1.9 Baso % (Auto) 0.4 Lymph # (Auto) 2.7 [place] # (Auto) 0.6 Eos # (Auto) 0.2 Baso # (Auto) 0.0 Abs Immat Gran (auto) 0.08 H Absolute Neuts (auto) 6.3 Absolute Nucleated RBC 0.000 Nucleated RBC % (auto) 0.0 Sodium 140 Potassium 4.4 Chloride 105 Carbon Dioxide 28 Anion Gap 11 L BUN 12 Creatinine 0.66 Estim Creat Clear Calc 79.5 Estimated GFR > 60 POC Glucose 155 H Random Glucose 124 H Calcium 9.5 D Phosphorus 3.7 Magnesium 1.5 L Random Vancomycin 14.5 L 04/26/24 11:15 WBC RBC Hgb Hct MCV MCH MCHC RDW Plt Count MPV Immature Gran % (Auto) Neut % (Auto) Lymph % (Auto) [place] % (Auto) Eos % (Auto) Baso % (Auto) Lymph # (Auto) [place] # (Auto) Eos # (Auto) Baso # (Auto) Abs Immat Gran (auto) Absolute Neuts (auto) Absolute Nucleated RBC Nucleated RBC % (auto) Sodium Potassium Chloride Carbon Dioxide Anion Gap BUN Creatinine Estim Creat Clear Calc Estimated GFR POC Glucose 180 H Random Glucose Calcium Phosphorus Magnesium Random Vancomycin Preliminary micro results at discharge 04/23/24 12:30 Blood Culture - Preliminary Blood - Venous No growth after 48 hours. 04/23/24 12:08 Blood Culture - Preliminary Blood - Venous No growth after 48 hours. Discharge Plan Discharge Anticipated Discharge Date/Time: 04/26/24 13:45 Patient Disposition: Home Health Service Discharge Diagnosis: septic shock due to cellulitis Referrals: [facility] [place] [facility] [Outside] - 1 Week Rito Olivas MD [Primary Care Provider] - 1 Week Discharge Medications: New magnesium oxide [MagOx] 400 mg (241.3 mg magnesium) tablet 400 mg PO BID Qty: 60 0RF amoxicillin-pot clavulanate 875-125 mg tablet 1 tab PO Q12H 5 Days Qty: 10 0RF doxycycline monohydrate 100 mg tablet 100 mg PO BID 5 Days Qty: 10 0RF Continued (DME) diabetic shoes See Rx Instructions .ROUTE .MEDSUPPLY Qty: 1 0RF Rx Instructions: extra depth orthopedic shoes ( 1 pair ) with customize heat molded multi density inner soles ( 3 pair) Dispense 1 Sig: As directed DX: And IDDM /polyneuropathy ( E11 0.42 ); hammertoe foot deformity ( M 20.41, and 20.42 ) pre ulcerative skin lesion ( L 85.1 ) Diagnosis ( E11 0.42 ) type 2 diabetes with polyneuropathy (DME) Dexcom G7 Content Production Specialist Misc See Rx Instructions .Route Qty: 1 0RF Rx Instructions: As directed (DME) pen needle, diabetic [BD Ultra-Fine Short Pen Needle] 31 gauge x 5/16 needle See Rx Instructions .ROUTE .COMPLEX Qty: 100 4RF Dose Instruction: DIRECTED TO INJECT FOUR TIMES DAILY Rx Instructions: DIRECTED TO INJECT FOUR TIMES DAILY gabapentin 300 mg capsule 300 mg PO BEDTIME 30 Days Qty: 30 11RF montelukast 10 mg tablet 10 mg PO DAILY 90 Days Qty: 90 3RF albuterol sulfate 90 mcg/actuation HFA aerosol inhaler 2 puff PO QID PRN (Reason: shortness of breath or wheezing) 90 Days Qty: 3 3RF (DME) Ketostix Strip See Rx Instructions .Route Qty: 50 2RF Rx Instructions: prn tid glucose over 250, illness, nausea, vomiting (DME) FreeStyle Lite Strips Strip See Rx Instructions .Route Qty: 100 4RF Rx Instructions: qid prn to confirm sensor readings or for failed sensor (DME) Dexcom G7 Sensor Device See Rx Instructions .ROUTE .COMPLEX Qty: 3 11RF Dose Instruction: APPLY DIRECTED AND CHANGE EVERY 10 DAYS (BULK) Rx Instructions: APPLY DIRECTED AND CHANGE EVERY 10 DAYS (BULK) (DME) insulin syringe-needle U-100 [BD Insulin Syringe Ultra-Fine] 0.3 mL 31 gauge x 5/16 syringe See Rx Instructions .ROUTE .MEDSUPPLY Qty: 150 10RF Rx Instructions: qid for insulin administration pantoprazole 40 mg tablet,delayed release (DR/EC) 40 mg PO DAILY@0630 Qty: 90 0RF (DME) CeQur Simplicity Vice President Compliance Misc See Rx Instructions .ROUTE .MEDSUPPLY Qty: 1 1RF Rx Instructions: As directed for use with ceQUR (DME) navarro Misc See Rx Instructions .ROUTE .MEDSUPPLY Qty: 1 0RF Rx Instructions: As directed acetaminophen [Tylenol Extra Strength] 500 mg tablet 650 mg PO Q6H PRN (Reason: fever or pain) (DME) CeQur Simplicity 2 unit device MISCELLANEOUS (DME) CeQur Simplicity Vice President Compliance Misc MISCELLANEOUS DIRECTED ammonium lactate 12 % lotion 1 appl topical DAILY Mounjaro 5 mg/0.5 mL pen injector 5 mg SUBCUT QWEEK tramadol 50 mg tablet 50 mg PO QID PRN (Reason: Pain) azelastine 137 mcg (0.1 %) [place]acida,Non-Aerosol 1 spray INTRANASAL BEDTIME PRN (Reason: Allergies) Rx Instructions: administer into each nostril zolpidem 10 mg tablet 10 mg PO BEDTIME PRN (Reason: Insomnia) melatonin 10 mg Tablet 10 mg PO BEDTIME PRN (Reason: Insomnia) Gemtesa 75 mg tablet 75 mg PO DAILY Breztri Aerosphere 160-9-4.8 mcg/actuation HFA aerosol inhaler 2 inh inhalation BID buspirone 30 mg Tablet 30 mg PO BID nystatin [Nystop] 100,000 unit/gram powder 1 appl topical BID-TID PRN (Reason: Rash) fluticasone propionate 50 mcg/actuation Placida,Suspension 2 spray INTRANASAL DAILY Rx Instructions: administer into each nostril lidocaine [Lidoderm] 5 % adhesive patch,medicated 1 patch topical DAILY PRN (Reason: Pain) Rx Instructions: leave on most painful area for up to 12 hrs nystatin 100,000 unit/mL suspension 1 ml PO BID clonazepam 0.5 mg Tablet 0.5 mg PO BID PRN (Reason: Anxiety) albuterol sulfate 2.5 mg /3 mL (0.083 %) solution for nebulization 2.5 mg inhalation Q4H PRN (Reason: for wheezing) insulin glargine 100 unit/mL (3 mL) insulin pen 8 unit subcut DAILY PRN (Reason: pump) metformin 1,000 mg tablet 1,000 mg PO BID duloxetine 60 mg capsule,delayed release(DR/EC) 60 mg PO DAILY donepezil 5 mg tablet 5 mg PO BEDTIME (DME) Oxygen Home Use Kit See Rx Instructions .Route Rx Instructions: As directed (DME) nebulizers Misc See Rx Instructions .Route Rx Instructions: As directed (DME) blood-glucose meter [FreeStyle Lite Meter] Kit See Rx Instructions .Route Qty: 1 0RF Rx Instructions: As directed (DME) lancets [FreeStyle Lancets] 28 gauge misc See Rx Instructions .Route Qty: 100 4RF Rx Instructions: As directed checks 4 times a day aripiprazole 15 mg tablet 7.5 mg PO DAILY Baqsimi 3 mg/actuation spray,non-aerosol 3 mg intranasal ONCE MDD may repeat in 15 min PRN (Reason: unresponsive hypoglycemia) 30 Days Qty: 2 1RF atorvastatin 40 mg tablet 40 mg PO DAILY (DME) pen needle, diabetic [BD Verenice 2nd Gen Pen Needle] 32 gauge x 5/32 needle See Rx Instructions .ROUTE .MEDSUPPLY Qty: 100 6RF Rx Instructions: qid (DME) CeQur Simplicity Vice President Compliance Misc See Rx Instructions .ROUTE .MEDSUPPLY Qty: 1 1RF Rx Instructions: As directed for use with cequr insulin patch sucralfate 100 mg/mL suspension 10 ml PO BID Qty: 600 3RF Changed insulin glargine 100 unit/mL (3 mL) Insulin Pen 10 unit SUBCUT QAM Qty: 15 0RF Discontinued lisinopril 10 mg tablet 10 mg PO DAILY Discharge Orders: Discharge Order (Routine); Ordered 04/26/24 Ordered By: Namrata Beltran Activity on Discharge: As tolerated Stand Alone Forms: Patient Portal Discharge page Print Language: Greenlandic Care Plan Goals: see below Health Concerns: sepsis due to abdominal cellulitis low magnesium levels Plan of Treatment: complete course of antibiotics as prescribed stop taking lisinopril for now - blood pressure has been controlled without it reduce dose of lantus to 10u and monitor blood sugar closely VNA will assist with wet to dry dressings every other day; on the days VNA doesn't come do wet to dry dressings as well Follow-up with Dr. Granados in the office on 05/01/24 at 2:30 - if you are unable to make that appointment please call [phone] to reschedule take oral magnesium replacement Assessment: see discharge summary Patient Instructions: Doxycycline (By mouth), Amoxicillin/Clavulanate Potassium (By mouth)
[2024-04-26 16:34] LABS: Glucose, Whole Blood 223 mg/dL (60-115)
[2024-05-06 12:36] LABS: Glucose, Whole Blood 175 mg/dL (60-115)
== END 2024-04-26 18:25 | disposition home health service (06) | DRG 393 ==
LOC: HO.ED 16:23 → HO.EDOVER 17:06 → HO.ICU 17:18 → HO.IMC 04-25 09:48
PROVIDERS: Nurse Practitioner Family; Physician Assistant; Admitting Provider Internal Medicine Critical Care Medicine; Emergency Provider Emergency Medicine Emergency Medical Services; PCP Internal Medicine; Visit Provider Physician Assistant Medical
DX: K95.01 Infection due to gastric band procedure (principal); A41.9 Sepsis, unspecified organism; R65.21 Severe sepsis with septic shock; L03.311 Cellulitis of abdominal wall; J96.10 Chronic respiratory failure, unspecified whether with hypoxia or hypercapnia; G47.33 Obstructive sleep apnea (adult) (pediatric); Z20.822 Contact with and (suspected) exposure to COVID-19; Z79.51 Long term (current) use of inhaled steroids; Z79.84 Long term (current) use of oral hypoglycemic drugs; Z79.899 Other long term (current) drug therapy
CPT/HCPCS: 0241U; 36415; 71045; 74177; 80048; 80076; 80202; 81003; 82040; 82803; 82947; 83036; 83605; 83690; 83735; 83880; 84100; 84484; 85025; 85610; 87040; 93005; 97162; 99285; C1758; J0736; J1650; J2543; J3370; J3475; P9047; Q9967

== ENCOUNTER → 2024-04-23 11:46 | Outpatient (BNV) | payer OTHER, SELFPAY | PROVIDERS: Admitting Provider Internal Medicine Critical Care Medicine; Emergency Provider Emergency Medicine Emergency Medical Services; PCP Internal Medicine; Visit Provider Internal Medicine | DX: I45.2 Bifascicular block (principal); R00.0 Tachycardia, unspecified | CPT/HCPCS: 93010 ==

== ENCOUNTER → 2024-04-23 11:46 | Outpatient (BNV) | payer OTHER, SELFPAY | PROVIDERS: Emergency Provider Emergency Medicine Emergency Medical Services; PCP Internal Medicine; Visit Provider Radiology Diagnostic Radiology | DX: L03.90 Cellulitis, unspecified (principal) | CPT/HCPCS: 71045; 74177 ==

== ENCOUNTER → 2024-04-23 12:44 | Outpatient (BNV) | payer OTHER, SELFPAY | PROVIDERS: Emergency Provider Emergency Medicine Emergency Medical Services; PCP Internal Medicine; Visit Provider Surgery | DX: L03.90 Cellulitis, unspecified (principal) | CPT/HCPCS: 99231; 99232 ==

== ENCOUNTER → 2024-04-23 16:58 | Outpatient (BNV) | payer OTHER, SELFPAY | PROVIDERS: Admitting Provider Internal Medicine Critical Care Medicine; Emergency Provider Emergency Medicine Emergency Medical Services; PCP Internal Medicine; Visit Provider Physician Assistant Medical | DX: L03.90 Cellulitis, unspecified (principal) | CPT/HCPCS: 99239; 99499; G0180 ==

== ENCOUNTER → 2024-04-23 16:58 | Outpatient (BNV) | payer OTHER, SELFPAY | PROVIDERS: Admitting Provider Internal Medicine Critical Care Medicine; Emergency Provider Emergency Medicine Emergency Medical Services; PCP Internal Medicine; Visit Provider Internal Medicine Critical Care Medicine | DX: J96.11 Chronic respiratory failure with hypoxia (principal); J96.12 Chronic respiratory failure with hypercapnia; G47.33 Obstructive sleep apnea (adult) (pediatric); L03.90 Cellulitis, unspecified | CPT/HCPCS: 99223; 99499 ==

== ENCOUNTER 2024-05-03 09:42 | Outpatient (AMB) | payer OTHER, SELFPAY ==
--- NOTE | 2024-05-03 09:50 | MHC.OFFVISWM ---
VS Expanded 05/03/24 10:14 BP 148/76 H Pulse 94 Temp 97.4 F Intake Visit Reasons: OV) PO Gastric Band Removal 03/13/24 Allergies aspirin [ASPIRIN] Allergy (Intermediate, Verified 04/23/24 11:40) GI UPSET, stomach pain latex [LATEX] Allergy (Intermediate, Verified 04/23/24 11:40) HIVES HPI Comments Details: Patient is a 73-year-old female who returns to the office today in follow-up. She is status post gastric band removal on 03/13/2024. She presented to the hospital on 04/23/2024 with an abdominal rash. She was found to have septic shock with hypotension requiring IV vancomycin, Zosyn, clindamycin as well as pressors. She remained in the hospital for 3 days, discharged home on 04/26/2024, ultimately being discharged home on Augmentin and doxycycline for 5 days. She has since completed her antibiotics. She does state that she had diarrhea for several days although this has resolved. Of note, she was found to have incisional dehiscence at the site of her gastric port. There was concern of possible abscess there but inspection at the time of presentation in the emergency room showed no evidence of purulent material or fluctuance within the wound itself. This was explored by Dr. Granados bedside in the emergency department. Since then, she has been using wet-to-dry dressings. No complaints of pain. Reports blood sugars 140-150. Overall feeling well. FORMERLY [facility], [facility]–1983 Medical History Peripheral vascular disease Supplemental oxygen dependent GERD (gastroesophageal reflux disease) CASSANDRA (obstructive sleep apnea) Hypoglycemia associated with type 2 diabetes mellitus COPD exacerbation C. difficile enteritis COVID-19 DVT (deep venous thrombosis) Pulmonary hypertension Pulmonary emboli Acute on chronic respiratory failure with hypoxia and hypercapnia Chronic respiratory failure [place] (hard of hearing) PONV (postoperative nausea and vomiting) Post herpetic neuralgia Pneumonia Back pain Morbid obesity Chest crackles Cardiomegaly Asthma-COPD overlap syndrome Acute respiratory failure Hyperlipidemia Hypertension Diabetes Arnold-Chiari malformation Arthritis Fibromyalgia Cough CASSANDRA treated with BiPAP Asthma Sinusitis Surgical History Hx of eye surgery History of esophagogastroduodenoscopy (EGD) H/O colonoscopy Hx of laparoscopic gastric banding (~2009) H/O bilateral breast reduction surgery H/O brain surgery Family History Mother HTN (hypertension) Breast cancer Father Primary cancer of bone marrow Social History Household Members: Family Household Members Other:: granddaughter Housing: Apartment Are you a primary rental boats caretaker to a significant other at home: No Do you presently have visiting nurse or other home services: Yes ([employer]) Unable to assess alcohol history related to: Unable to respond Alcohol intake: unknown Patient Tobacco Use Status: Former Tobacco user Tobacco use type: Cigarette Years Smoked: 15 +/- e-Cigarette/Vaping Use: Never Used Second Hand Smoke Exposure: No Advance Directives Date on File: 11/11/21 service: No Physical Exam Skin Other: Dehisced incisional wound measuring 1.5 x 0.7 by 0.8 cm. Healthy granular tissue. No purulence, odor, induration or erythema Assessment & Plan Assessment & Plan (1) Postoperative complication: Code(s): T81.9XXA - Unspecified complication of procedure, initial encounter Category: Medical Plan: Change dressing to 1/2 inch packing, moistened with normal saline, every other day. Cover with dry clean dressing. She may shower right before dressing changes. No further antibiotics are necessary at this time. We will have her return to the office in 1 week. (2) Gastric band malfunction: Code(s): K95.09 - Other complications of gastric band procedure Category: Medical Plan: Status post band removal. She is going to use celebrate rebuild, 2 scoops, x3 shakes per day. She may also have a small meal with 7 forks of protein and 7 forks of vegetables. She will return to the office as scheduled
[2024-05-03 10:14] VITALS: BP 148/76; PULSE 94; TEMP 36.3
--- OUTSIDE RECORDS SUMMARY | 2024-05-03 10:30 | XMS_ITS | Data Portability ---
Author Organization [facility] Pain Managem ent, PAIN OFFICE Address [address] [facility] [address] [place] [address] Care Team Providers Care Cutter Machine Name Role Phone CARINA SOLER Primary Care Provider DENNIS DYER OTHER [phone] Assessment Encounter Date Assessment Date Assessment [...] booked after insurance approval. 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 [...] up in a few weeks for TPI [email or web address] Not available 02/08/2024 16:16:36 Plan of Treatment Reminders Order Date Submit Date Provider Last Modified By Organization Details Last Modified Time Details Appointments PROCEDURE 2024 01:30P M Lesa jaimes MD [...] Details Recorded Time Intercostal post-herpet ic neuralgia 509201372 Active Lesa jaimes MD [address] , [address], [place], [address], [place] [facility] 0 14:21:30 Trochanteri c bursitis of left hip 4947958098571 03 Active 2022 Lesa jaimes MD [address] , [address], [place], [address], [place] [facility] 3 14:37:24 Lumbosacral radiculitis 65649012 Active Lesa jaimes MD [address] , [address], [place], [address], [place] [facility] 4 13:08:14 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 36018536 Active Lesa jaimes MD [address] , [address], [place], [address], [place] [facility] 4 13:08:14 Lumbosacral spondylosis without myelopathy 40411427 Active Lesa jaimes MD [address] , [address], [place], [address], [place] [facility] 4 13:08:14 Mononeuriti s of upper limb Active Lesa jaimes MD [address] , [address], [place], [address], [place] [facility] 4 13:08:14 Muscle pain 37460185 Active Lesa jaimes MD [address] , [address], [place], [address], [place] [facility] 4 13:08:14 Problem Notes None recorded. Procedures Surgical History Date Name Laterality Status Provider Name and Address Organization Details Recorded Time 02/08/20 24 Intra-articular shoulder steroid injection under ultrasound guidance completed Lesa Marie MD [address] [facility] , [address], [place], [address], [place] [facility] 02/08/2024 16:15:41 07/17/19 24 Intra-articular shoulder steroid injection under ultrasound guidance completed Lesa Marie MD [address] [facility] , [address], [place], [address], [place] [facility] 07/17/2023 13:37:19 06/20/19 24 Lumbar Epidural steroid injection under fluoroscopic guidance completed Lesa Marie MD [address] [facility] , [address], [place], [address], [place] [facility] 06/20/2023 11:18:39 12/13/19 23 Intra-articular shoulder steroid injection under ultrasound guidance completed Lesa Marie MD [address] [facility] , [address], [place], [address], [place] [facility] 12/12/2022 13:15:42 12/06/19 23 Intra-articular shoulder steroid injection under ultrasound guidance completed MD Nakia Hoover [address] [facility] , [address], [place], [address], [place] [facility] 12/05/2022 13:14:40 04/26/19 23 Greater Trochanteric Bursa Steroid Injection completed Lesa Marie MD [address] [facility] , [address], [place], [address], [place] [facility] 04/26/2022 14:36:25 01/20/20 22 Greater Trochanteric Bursa Steroid Injection completed Lesa Marie MD [address] [facility] , [address], [place], [address], [place] [facility] 01/19/2022 13:42:11 03/18/19 14 Lumbar Epidural steroid injection under fluoroscopic guidance completed Lesa Marie MD [address] [facility] , [address], [place], [address], [place] [facility] 03/19/2013 13:08:14 11/20/19 13 Lumbar Epidural steroid injection under fluoroscopic guidance completed Lesa Marie MD [address] [facility] , [address], [place], [address], [place] [facility] 11/20/2012 09:33:24 03/10/19 12 Trigger Point Injections under ultrasound guidance completed Lesa Marie MD [address] [facility] , [address], [place], [address], [facility] - Pain Management 03/10/2011 10:38:48 03/06/19 06 Other completed Not Available [facility] 1 03:05:25 03/06/19 02 Other completed Not Available [facility] 1 03:05:25 Other completed Not Available [facility] 03:05:25 Imaging Results None recorded. Procedure Notes None recorded. Medical Equipment None Reported. Allergies Allergen ID Allergen Name Allergen Category Reaction Reaction Severity Criticality Documentation Date Start Date Code Code System Note Provider Name and Address Organization Details Recorded Time 441 aspirin medicatio n other mild Not available 12/21/2010 1191 RxNorm Burni ng sensa tion in the stoma ch Not Available [facility] 1 03:05:17 541 latex environme nt,medica tion rash Not available Not available 12/27/2010 66563 91 RxNorm Not Available [facility] 1 03:05:17 Medications Name Sig Start Date Stop Date Status Note LastModified by Organization Details LastModified Time melatonin ex str tab active Not Available Not Available N ot Available melatonin tab ex str active Not Available [...] Not Available Not Available No t Available ammonium lactate 12 % lotion active Not Available Not Available Not Available trazodone 50 mg tablet TAKE 1 [...] completed Not Available Not Available Not Available sucralfate 100 mg/mL oral suspension active [...] pantoprazo le 40 mg tablet,del ayed release TAKE 1 TABLET BY MOUTH DAILY AT 6.30 AM active Not Available Not Available No t Available buspirone 30 mg tablet TAKE 1 [...] with needle 1 mL 31 gauge x 07/19 active Not Available Not Available Not Available [...] Available Not Available Not Available nystatin 100,000 unit/gram topical powder USE 1 APPLICAT ION EXTERNAL LY TWICE DAILY active Not Available Not Available No t Available lorazepam 1 mg tablet TAKE 1 [...] with needle 1 mL 30 gauge x 7/16 active Not Available Not Available Not Available [...] Not Available Not Available ipratropiu m bromide 42 mcg (0.06 %) nasal spray USE 2 SPRAYS IN EACH NOSTRIL THREE TIMES DAILY active Not Available Not Available No t Available dexamethas one 1.5 mg tablet active [...] 0.3 mL 31 gauge x 5/16 USE FOUR TIMES DAILY FOR INSULIN ADMINIST RATION active Not Available Not Available No t [...] active Not Available Not Available Not Available Eliquis DVT-PE Treatment 30-Day Starter 5 mg (74 tablets) in dose pack TAKE 2 TABLETS TWICE DAILY FOR 7 DAYS THEN TAKE 1 TABLET TWICE DAILY FOR 23 DAYS 11/30 completed Not Available Not Available Not Available roflumilas t 250 mcg tablet TAKE 1 TABLET BY MOUTH DAILY active Not Available Not Available No t Available Dexcom G6 Immigration Paralegal USE DIRECTED active Not Available Not Available [...] active Not Available Not Available Not Available CeQur Simplicity Awning Hanger USE DIRETED FOR USE WITH CEQUR active Not Available Not Available No t Available FreeStyle Lai 2 [place] active Not Available Not Available Not Available [...] /min 96 % 96 % 39.1 kg/m2 81358.4 7 g 143 mm[Hg] 65 mm[Hg] Leas jaimes MD [address] [place] [address] , [address], [place], [address], [facility] Pain Management 4 10:00:38 Date Recorded Body height Heart rate Oxygen saturation Oxygen saturation in Arterial blood by Pulse oximetry Systolic blood pressure Diastolic blood pressure Provider Name and Address Organization Details Last Updated DateTime 4 152.4 cm 93 /min 94 % 94 % 168 mm[Hg] 59 mm[Hg] Grace Queen [facility] Pain Management 4 10:50:41 Date Recorded Body height Oxygen saturation Oxygen saturation in Arterial blood by Pulse oximetry Inhaled oxygen flow rate Heart rate Body mass index (BMI) Body weight Systolic blood pressure Diastolic blood pressure Provider Name and Address Organization Details Last Updated DateTime 4 152.4 cm 99 % 99 % 2.5 L/min 87 /min 38.5 kg/m2 43601.7 g 108 mm[Hg] 85 mm[Hg] Dulce Arteagarin o [place] [facility] 4 11:33:53 Date Recorded Body height Heart rate Oxygen saturation Oxygen saturation in Arterial blood by Pulse oximetry Systolic blood pressure Diastolic blood pressure Provider Name and Address Organization Details Last Updated DateTime 4 152.4 cm 78 /min 96 % 96 % 138 mm[Hg] 66 mm[Hg] Dulce Arteagarin o [place] [facility] 4 13:25:51 Date Recorded Body height Heart rate Oxygen saturation Oxygen saturation in Arterial blood by Pulse oximetry Systolic blood pressure Diastolic blood pressure Provider Name and Address Organization Details Last Updated DateTime 4 152.4 cm 88 /min 96 % 96 % 125 mm[Hg] 68 mm[Hg] Dulce Figueroa o [place] [facility] 4 14:37:48 Social History Question Answer Notes LastModified by Organizat ion Details LastModified Time Tobacco Smoking Status Former Smoker Not [facility] 12/20/2019 03:16:12 Are You Currently Employed? No [id number] Information not available 12/20/2019 Education 12 [email or web address] Information not available 01/26/2011 What Is Your Occupation? DIsabled Social Security Disability [id number] Information not available 12/20/2019 Live Alone Or [...] previo usly record ed as Cancer [email or web address] [id number] Not available 11/25/2012 03:01:59 Father Diabetes mellitus previo usly record ed as Diabet es [email or web address] [id number] Not available 11/25/2012 03:01:59 Father Hypertensive disorder previo usly record ed as Hypert ension [email or web address] [id number] Not available 11/25/2012 03:01:59 Mother Malignant neoplastic disease 68 Breast (previ ously record ed as Cancer ) [email or web address] [id number] Not available 11/25/2012 03:01:59 Medical History Condition Response Neuropathy/Neuralgia Y Depression Y COPD Y Anxiety Disorder Y Arthritis N Headache Y Fibromyalgia Y Diabetes Y Asthma Y GERD/Reflux Y Hypertension Y Gynecological HistoryNo gynecological history recorded. Obstetrics History GPAL:G 0 P 0 0 0 0 Past Encounters Encounter ID Performer Location Encounter Start Date Encounter Closed Date Diagnosis/Indication Diagnosis SNOMED-CT Code Diagnosis ICD10 Code Diagnosis Note [id number] [facility] [address] [place] [address] 12/21/2010 14:06:59 12/22/2010 09:40:34 1721 [facility] [address] [place] [address] 12/27/2010 13:18:02 12/27/2010 15:06:30 [id number] Klarissa Wilburn [facility] [address] [place] [address] 02/16/2011 13:04:02 02/16/2011 16:16:31 [id number] [facility] [address] [place] [address] 03/10/2011 09:37:06 03/10/2011 10:39:44 8001 [facility] [address] [place] [address] 04/05/2011 13:01:46 04/05/2011 14:47:42 [id number] [facility] [address] [place] [address] 06/17/2011 10:08:59 06/18/2011 13:15:27 [id number] [facility] [address] [place] [address] 11/07/2012 10:48:11 11/07/2012 15:59:02 [id number] [facility] [address] [place] [address] 11/19/2012 12:51:36 11/19/2012 16:05:42 [id number] Klarissa Wilburn [facility] [address] [place] [address] 12/24/2012 14:34:44 12/24/2012 15:27:26 Lumbosacral spondylosis without myelopathy 88194261 Mononeurit is of upper limb 78422435 Muscle pain 11029240 Lumbosacra l radiculitis 52690014 Displaceme nt of lumbar intervertebral disc without myelopathy 71767313 [id number] [facility] [address] [facility] [place] [address] 03/18/2013 13:07:26 03/19/2013 14:03:02 Lumbosacral spondylosis without myelopathy 70500013 Mononeurit is of upper limb 74553477 Muscle pain 81584400 Displaceme nt of lumbar intervertebral disc without myelopathy 20662488 Lumbosacra l radiculitis 78831246 Interverte bral disc disorder 75248546 [id number] Lesa Marie MD PAIN OFFICE [address] [facility] [place] [address] 05/16/2019 13:54:58 05/16/2019 16:19:59 Intercostal post-herpetic neuralgia 250156252 B02.29 [id number] Lesa Marie MD PAIN OFFICE [address] [facility] [place] [address] 02/04/2021 13:31:51 02/15/2021 13:47:06 Inflammation of joint of shoulder region 486640989 M13.819 M13.812 Intercosta l post-herpetic neuralgia 497495353 B02.29 Lumbosacra l radiculitis 01994714 M54.17 Displaceme nt of lumbar intervertebral disc without myelopathy 39790162 M51.26 [id number] Lesa Marie MD PAIN OFFICE [address] [facility] [place] [address] 12/30/2021 14:38:15 12/30/2021 16:43:11 Trochanteric bursitis of right hip 3560845358 99369 M70.61 [id number] Lesa Marie MD PAIN OFFICE [address] [facility] [place] [address] 01/19/2022 10:09:37 01/19/2022 13:45:49 Trochanteric bursitis of right hip 9429025057 05821 M70.61 [id number] Lesa Marie MD [facility] [address] [place] [address] 02/17/2022 11:28:41 02/17/2022 13:57:15 Trochanteric bursitis of right hip 6687128408 72671 M70.61 [id number] Lesa Marie MD [facility] [address] [facility] [place] [address] 04/26/2022 10:47:04 04/26/2022 14:41:34 Trochanteric bursitis of left hip 1534623119 01890 M70.62 [id number] Lesa Marie MD [facility] [address] [facility] [place] [address] 11/30/2022 14:21:06 12/01/2022 11:16:50 Subacromial bursitis of right shoulder 4331968160 483405 M75.51 Inflammati on of joint of shoulder region 467627971 M13.812 M13.811 [id number] Lesa Marie MD PAIN OFFICE [address] [facility] [place] [address] 12/05/2022 11:36:36 12/05/2022 13:17:19 Subacromial bursitis of right shoulder 9637808885 791992 M75.51 Inflammati on of joint of shoulder region 396630067 M13.812 M13.811 [id number] Lesa Marie MD [facility] PA[facility] OFF[facility] [address] [facility] [place] [address] 12/12/2022 11:28:38 12/13/2022 11:15:40 Subacromial bursitis of right shoulder 6170055445 607462 M75.51 Inflammati on of joint of shoulder region 818789170 M13.812 M13.811 Lumbosacra l radiculopathy 6991565 M54.17 Degenerati on of lumbar intervertebral disc 29835725 M51.36 [id number] Lesa Marie MD PAIN OFFICE [address] [facility] [place] [address] 05/18/2023 09:54:41 05/18/2023 14:20:26 Lumbosacral radiculitis 83070878 M54.17 Displaceme nt of lumbar intervertebral disc without myelopathy 97474971 M51.26 Subacromia l bursitis of right shoulder 6346509904 546609 M75.51 Inflammati on of joint of shoulder region 961660390 M13.812 M13.811 Lumbosacra l radiculopathy 6514743 M54.17 Degenerati on of lumbar intervertebral disc 22842429 M51.36 [id number] Lesa Marie MD PAIN OFFICE [address] [facility] [place] [address] 06/20/2023 10:26:03 06/20/2023 15:35:35 Lumbosacral radiculitis 44944174 M54.17 Displaceme nt of lumbar intervertebral disc without myelopathy 04615369 M51.26 Subacromia l bursitis of right shoulder 6397770623 172897 M75.51 Inflammati on of joint of shoulder region 956347796 M13.812 M13.811 Lumbosacra l radiculopathy 3068589 M54.17 Degenerati on of lumbar intervertebral disc 13337553 M51.36 [id number] Lesa Marie MD PAIN OFFICE [address] [place] [address] 07/17/2023 11:21:50 07/17/2023 13:39:13 Subacromial bursitis of right shoulder 9417106161 748375 M75.51 Inflammati on of joint of shoulder region 477914480 M13.812 M13.811 [id number] Lesa Marie MD PAIN OFFICE [address] [facility] [place] [address] 12/07/2023 12:31:09 12/08/2023 10:25:28 Subacromial bursitis of right shoulder 2588150795 401604 M75.51 Inflammati on of joint of shoulder region 757429908 M13.812 M13.811 [id number] Lesa Marie MD PAIN OFFICE [address] [place] [address] [place] [address] 02/08/2024 14:33:02 02/08/2024 16:19:44 Subacromial bursitis of right shoulder 5524503720 491025 M75.51 Inflammati on of joint of shoulder region 057403617 M13.812 M13.811 Health Concerns Section Related Observation LastModified by Organization Detai ls LastModified Time None Recorded Concern Status LastModified by Organization Details LastModified Time None Recorded Advance Directives Directive None Recorded Payers Encounter Date Sequence Insurance Name Policy Number Policy [employer] Covered Member ID [employer] Member ID Guarantor Name 05/18/2023 1 [facility] [employer] - DOS ON OR AFTER 2022 - ONE CARE (MEDICARE REPLACEMENT/ADV ANTAGE - HMO) Madeleine Ledezma [id number] Madeleine Darien 06/20/2023 1 [facility] [employer] [employer] - DOS ON OR AFTER 2022 - ONE CARE (MEDICARE REPLACEMENT/ADV ANTAGE - HMO) Madeleine Ledezma [id number] Madeleine Darien 07/17/2023 1 [facility] [employer] [employer] - DOS ON OR AFTER 2022 - ONE CARE (MEDICARE REPLACEMENT/ADV ANTAGE - HMO) Madeleine Ledezma [id number] Madeleine Darien 12/07/2023 1 [facility] [employer] - DOS ON OR AFTER 2022 - ONE CARE (MEDICARE REPLACEMENT/ADV ANTAGE - HMO) Madeleine Ledezma [id number] Madeleine Ledezma 02/08/2024 1 [facility]ITICAL [facility] [employer] [employer] - DOS ON OR AFTER 2022 - ONE CARE (MEDICARE REPLACEMENT/ADV ANTAGE - HMO) Madeleine Ledezma [id number] Madeleine Ledezma Notes Date Note Type Note [...] bit. She has trialed an injection at [employer] and [employer] which did not help. She had a lumbar epidural steroid injection in 2013 which helped for years. She states the steroid injections increase her blood glucose levels but she is able to adjust with insulin. Lesa Marie MD [address] [facility] , [address], [place], [address], [facility] - Pain Management 05/19/2023 08:56:55 06/20/2023 text/html She is here for a trial of lumbar epidural steroid injection under fluoroscopic guidance. Lesa Marie MD [address] [facility] , [address], [place], [address], [facility] - Pain Management 06/20/2023 16:11:05 07/17/2023 text/html She is here for a right shoulder steroid injection under ultrasound guidance Lesa Marie MD [address] [facility] , [address], [place], [address], [facility] - Pain Management 07/17/2023 15:26:06 12/07/2023 text/html She is here for a right shoulder steroid injection under ultrasound guidance. She reports an infection in her right finger for which she is on antibiotics . The finger appears to be infected. She has also had recent hospitalization for covid but feels she is much improved now. Lesa Marie MD [address] [facility] , [address], [place], [address], [facility] - Pain Management 12/08/2023 11:34:53 02/08/2024 text/html She is here for a bilateral shoulder steroid injection under ultrasound guidance Lesa Marie MD [address] [facility] , [address], [place], [address], [facility] - Pain Management 02/09/2024 08:57:46 OBGyn Episode No OBEpisode recorded.
== END 2024-05-03 10:17 | disposition home or self-care (01) ==
PROVIDERS: PCP Internal Medicine; Visit Provider Physician Assistant Surgical
DX: T81.9XXA Unspecified complication of procedure, initial encounter (principal); K95.09 Other complications of gastric band procedure
CPT/HCPCS: 99024

== ENCOUNTER → 2024-05-03 09:42 | Outpatient (BNVA) | payer OTHER, SELFPAY | PROVIDERS: PCP Internal Medicine; Visit Provider Physician Assistant Surgical | DX: T81.9XXD Unspecified complication of procedure, subsequent encounter (principal); K95.09 Other complications of gastric band procedure | CPT/HCPCS: 99212 ==

== ENCOUNTER 2024-05-07 13:22 | Outpatient (AMB) | payer OTHER, SELFPAY ==
--- NOTE | 2024-05-07 13:24 | A.OFFVIS_ITS ---
VS Expanded 05/07/24 13:33 BP 134/61 Blood Pressure Location Lt brachial Blood Pressure Position Sitting Pulse 93 Height 5 ft Weight 183 lb 9.6 oz BMI 35.9 Body Fat % 45.1 Body Fat Mass 82.6 Fat Free Mass 100.8 Visceral Fat Rating 14.0 Body Water % 38.6 Body Water Mass 70.8 Muscle Mass/Score 95.6 Basal Metabolic Rate/Score 1,407 Intake Visit Reasons: OV) PO Gastric Band Removal 03/13/24 Allergies aspirin [ASPIRIN] Allergy (Intermediate, Verified 05/07/24 13:28) GI UPSET, stomach pain latex [LATEX] Allergy (Intermediate, Verified 05/07/24 13:28) HIVES Medication List - Last Reconciled 05/07/24 by KULWANT Mccrary acetaminophen (Tylenol Extra Strength) 650 mg PO Q6H PRN acetone (urine) test (Ketostix strips) prn tid glucose over 250, illness, nausea, vomiting albuterol sulfate 2.5 mg inhalation Q4H PRN albuterol sulfate 90 mcg/actuation 2 puffs PO QID PRN 90 days ammonium lactate 12% 1 appl topical DAILY aripiprazole 7.5 mg PO DAILY atorvastatin 40 mg PO DAILY azelastine 1 spray intranasal BEDTIME PRN blood sugar diagnostic (FreeStyle Lite Strips) As directed prn qid sensor failure, confirm glucose blood-glucose meter (FreeStyle Lite Meter kit) As directed blood-glucose meter,continuous (Dexcom G7 Sdv Pilot/Navigator/Dds Operator) As directed blood-glucose sensor (Dexcom G7 Sensor device) APPLY DIRECTED AND CHANGE EVERY 10 DAYS (BULK) bolus insulin pump, 200 unit (CeQur Simplicity) fiucpowshh-bcdgwlwj-svtpyswpiz 160-9-4.8 mcg/actuation (Breztri Aerosphere) 2 inhalations inhalation BID buspirone 30 mg PO BID clonazepam 0.5 mg PO BID PRN [diabetic shoes extra depth orthopedic shoes ( 1 pair ) with customize heat molded multi density inner soles ( 3 pair) Dispense 1 Sig: As directed DX: And IDDM /polyneuropathy ( E11 0.42 ); hammertoe foot deformity ( M 20.41, and 20.42 ) pre ulcerative skin lesion ( L 85.1 ) Diagnosis ( E11 0.42 ) type 2 diabetes with polyneuropathy] diabetic supplies, miscellan. (CeQur Simplicity Industrial Health And Safety Professor) diabetic supplies, miscellan. (CeQur Simplicity Industrial Health And Safety Professor) As directed for use with cequr insulin patch diabetic supplies, miscellan. (CeQur Simplicity Industrial Health And Safety Professor) As directed for use with cequr patc donepezil 5 mg PO BEDTIME duloxetine 60 mg PO DAILY fluticasone propionate 50 mcg/actuation 2 sprays intranasal DAILY gabapentin 300 mg PO BEDTIME 30 days glucagon 3 mg/actuation (Baqsimi) 3 mg intranasal ONCE PRN 30 days MDD may repeat in 15 min insulin glargine 8 units subcut DAILY PRN insulin glargine 10 units (0.1 mL) subcut QAM insulin syringe-needle U-100 (BD Insulin Syringe Ultra-Fine) qid for insulin administration lancets (FreeStyle Lancets) 4 times a day prn sensor failure or to confirm glucose lancets (FreeStyle Lancets) As directed checks 4 times a day lidocaine 5% (Lidoderm) 1 patch topical DAILY PRN lisinopril mg PO DAILY magnesium oxide (MagOx) 400 mg PO BID melatonin 10 mg PO BEDTIME PRN metformin 1,000 mg PO BID montelukast 10 mg PO DAILY 90 days nebulizers As directed nystatin (Nystop) 1 appl topical BID-TID PRN nystatin 1 mL PO BID Oxygen Home Use As directed pantoprazole 40 mg PO DAILY@0630 pen needle, diabetic (BD Verenice 2nd Gen Pen Needle) qid pen needle, diabetic (BD Ultra-Fine Short Pen Needle) DIRECTED TO INJECT FOUR TIMES DAILY sucralfate 10 mL PO BID tirzepatide (Mounjaro) 5 mg subcut QWEEK tramadol 50 mg PO QID PRN vibegron (Gemtesa) 75 mg PO DAILY walker As directed zolpidem 10 mg PO BEDTIME PRN HPI Comments Details: 73-year-old female status post gastric band removal on 03/13/2024. She presented to the hospital on 04/23/2024 with an abdominal rash. She was found to have septic shock with hypotension requiring IV vancomycin, Zosyn, clindamycin as well as pressors. She remained in the hospital for 3 days, discharged home on 04/26/2024, ultimately being discharged home on Augmentin and doxycycline for 5 days. She has completed her antibiotics. No fevers at home. Of note, she was found to have incisional dehiscence at the site of her gastric port. There was concern of possible abscess there but inspection at the time of presentation in the emergency room showed no evidence of purulent material or fluctuance within the wound itself. This was explored by Dr. Granados bedside in the emergency department. Since then, she has been using half inch packing moistened with saline, changed every other day. No complaints of pain. Reports blood sugars 140-150. Overall feeling well. Current meal plan: Celebrate rebuild, 2 scoops, x3 shakes per day. She may also have a small meal with 7 forks of protein and 7 forks of vegetables. PFS Medical History Peripheral vascular disease Supplemental oxygen dependent GERD (gastroesophageal reflux disease) CASSANDRA (obstructive sleep apnea) Hypoglycemia associated with type 2 diabetes mellitus COPD exacerbation C. difficile enteritis COVID-19 DVT (deep venous thrombosis) Pulmonary hypertension Pulmonary emboli Acute on chronic respiratory failure with hypoxia and hypercapnia Chronic respiratory failure [place] (hard of hearing) PONV (postoperative nausea and vomiting) Post herpetic neuralgia Pneumonia Back pain Morbid obesity Chest crackles Cardiomegaly Asthma-COPD overlap syndrome Acute respiratory failure Hyperlipidemia Hypertension Diabetes Arnold-Chiari malformation Arthritis Fibromyalgia Cough CASSANDRA treated with BiPAP Asthma Sinusitis Surgical History Hx of eye surgery History of esophagogastroduodenoscopy (EGD) H/O colonoscopy Hx of laparoscopic gastric banding (~2009) H/O bilateral breast reduction surgery H/O brain surgery Family History Mother HTN (hypertension) Breast cancer Father Primary cancer of bone marrow Social History Household Members: Family Household Members Other:: granddaughter Housing: Apartment Are you a primary progressive care manager to a significant other at home: No Do you presently have visiting nurse or other home services: Yes (QUALITY CONTROL MANAGER) Unable to assess alcohol history related to: Unable to respond Alcohol intake: unknown Patient Tobacco Use Status: Former Tobacco user Tobacco use type: Cigarette Years Smoked: 15 +/- e-Cigarette/Vaping Use: Never Used Second Hand Smoke Exposure: No Advance Directives Date on File: 11/11/21 service: No Physical Exam Vital Signs: Last Vital Signs Pulse 93 05/07/24 13:33 BP 134/61 05/07/24 13:33 BMI result Body Mass Index 35.9 Const General: cooperative, comfortable and no acute distress Orientation/consciousness: patient oriented x3 GI Other: soft, nontender, nondistended, incisions well healed, no hernia, no masses clean wound, granulation tissue present, no purulent drainage noted, no surrounding erythema, measures 2.8x0.9x2.2cm Neuro General: patient oriented x3 Assessment & Plan Assessment & Plan (1) Gastric band malfunction: Code(s): K95.09 - Other complications of gastric band procedure Category: Medical (2) Wound dehiscence: Code(s): T81.30XA - Disruption of wound, unspecified, initial encounter Category: Medical Plan Continues dressing changes of 1/2 inch packing, moistened with normal saline, every other day. Cover with dry clean dressing. She may shower right before dressing changes. No additional abx necessary. Status post band removal. Encouraged pt to ensure she follows meal plan of Celebrate Rebuild, 2 scoops, x3 shakes per day. Small meal with 7 forks of protein and 7 forks of vegetables. Reiterated the importance of good nutrition for healing and recovery. RTC 2 weeks. I spent a total of 30 minutes reviewing/updating records, examining the patient and counseling the patient on weight management as detailed above. Medications: Discontinued blood sugar diagnostic (FreeStyle Lite Strips) Discontinued Reason: Duplicate qid prn to confirm sensor readings or for failed sensor 100 ea 4RF diabetic supplies, miscellan. (CeQur Simplicity Industrial Health And Safety Professor) Discontinued Reason: Doctor's Order As directed for use with ceQUR 1 ea 1RF E11.9 - Type 2 diabetes mellitus without complications
[2024-05-07 13:33] VITALS: BP 134/61; PULSE 93; BMI 35.9
--- OUTSIDE RECORDS SUMMARY | 2024-05-07 16:46 | XMS_ITS | Data Portability ---
Author Organization [facility] Pain Managem ent, PAIN OFFICE Address [address] [facility] [place] [address] [place] [address] Care Team Providers Care Motor Tester Name Role Phone CARINA SOLER Primary Care Provider DENNIS DYER OTHER [phone] Assessment Encounter Date Assessment Date Assessment [...] booked after insurance approval. She needs a feeder driver on the day of the procedure. [...] Details Recorded Time Intercostal post-herpet ic neuralgia 699229630 Active Lesa jaimes MD [address] , [address], [place], [address], [place] [facility] 0 14:21:30 Trochanteri c bursitis of left hip 4925395273376 03 Active 2022 Lesa jaimes MD [address] , [address], [place], [address], [place] [facility] 3 14:37:24 Lumbosacral radiculitis 05357227 Active Lesa jaimes MD [address] , [address], [place], [address], [place] [facility] 4 13:08:14 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 26636357 Active Lesa jaimes MD [address] , [address], [place], [address], [place] [facility] 4 13:08:14 Lumbosacral spondylosis without myelopathy 90574737 Active Lesa jaimes MD [address] , [address], [place], [address], [place] [facility] 4 13:08:14 Mononeuriti s of upper limb Active Lesa jaimes MD [address] , [address], [place], [address], [place] [facility] 4 13:08:14 Muscle pain 40368260 Active Lesa jaimes MD [address] , [address], [place], [address], [place] [facility] 4 13:08:14 Problem Notes None recorded. Procedures Surgical History Date Name Laterality Status Provider Name and Address Organization Details Recorded Time 02/08/20 24 Intra-articular shoulder steroid injection under ultrasound guidance completed Lesa Marie MD [address] [facility] , [address], [place], [address], [place] [facility] 02/08/2024 16:15:41 07/17/19 24 Intra-articular shoulder steroid injection under ultrasound guidance completed Lesa Marie MD [address] [facility] , [address], [place], [address], [place] [facility] 07/17/2023 13:37:19 06/20/19 24 Lumbar Epidural steroid injection under fluoroscopic guidance completed Lesa Marie MD [address] [facility] , [address], [place], [address], [place] [facility] 06/20/2023 11:18:39 12/13/19 23 Intra-articular shoulder steroid injection under ultrasound guidance completed Lesa Marie MD [address] [facility] , [address], [place], [address], [place] [facility] 12/12/2022 13:15:42 12/06/19 23 Intra-articular shoulder steroid injection under ultrasound guidance completed MD Nakia Hoover [facility] , [address], [place], [address], [place] [facility] 12/05/2022 13:14:40 04/26/19 23 Greater Trochanteric Bursa Steroid Injection completed Lesa Marie MD [address] [facility] , [address], [place], [address], [place] [facility] 04/26/2022 14:36:25 01/20/20 22 Greater Trochanteric Bursa Steroid Injection completed Lesa Marie MD [address] [facility] , [address], [place], [address], [place] [facility] 01/19/2022 13:42:11 03/18/19 14 Lumbar Epidural steroid injection under fluoroscopic guidance completed Lesa Marie MD [address] [facility] , [address], [place], [address], [place] [facility] 03/19/2013 13:08:14 11/20/19 13 Lumbar Epidural steroid injection under fluoroscopic guidance completed Lesa Marie MD [address] [facility] , [address], [place], [address], [place] [facility] 11/20/2012 09:33:24 03/10/19 12 Trigger Point Injections under ultrasound guidance completed Lesa Marie MD [address] [facility] , [address], [place], [address], [facility] - Pain Management 03/10/2011 10:38:48 03/06/19 06 Other completed Not Available Pending sale to [facility] 1 03:05:25 03/06/19 02 Other completed Not Available Pending sale to [facility] 1 03:05:25 Other completed Not Available Pending sale to [facility] 03:05:25 Imaging Results None recorded. Procedure Notes None recorded. Medical Equipment None Reported. Allergies Allergen ID Allergen Name Allergen Category Reaction Reaction Severity Criticality Documentation Date Start Date Code Code System Note Provider Name and Address Organization Details Recorded Time 441 aspirin medicatio n other mild Not available 12/21/2010 1191 RxNorm Burni ng sensa tion in the stoma ch Not Available Pending sale to [facility] 1 03:05:17 541 latex environme nt,medica tion rash Not available Not available 12/27/2010 20216 91 RxNorm Not Available Pending sale to [facility] 1 03:05:17 Medications Name Sig Start Date [...] Not Available No t Available Dexcom G6 Gift Shop Clerk USE DIRECTED active Not Available Not Available [...] Available Not Available Not Available CeQur Simplicity Editorial Cartoonist USE DIRETED FOR USE WITH CEQUR active Not Available Not Available No t Available FreeStyle Lai 2 [place] active Not Available Not Available Not Available [...] /min 96 % 96 % 39.1 kg/m2 48498.4 7 g 143 mm[Hg] 65 mm[Hg] Lesa jaimes MD [address] [place] [address] , [address], [place], [address], [facility] Pain Management 4 10:00:38 Date Recorded Body height Heart rate Oxygen saturation Oxygen saturation in Arterial blood by Pulse oximetry Systolic blood pressure Diastolic blood pressure Provider Name and Address Organization Details Last Updated DateTime 4 152.4 cm 93 /min 94 % 94 % 168 mm[Hg] 59 mm[Hg] Grace Queen [facility] Pain Management 4 10:50:41 Date Recorded Body height Oxygen saturation Oxygen saturation in Arterial blood by Pulse oximetry Inhaled oxygen flow rate Heart rate Body mass index (BMI) Body weight Systolic blood pressure Diastolic blood pressure Provider Name and Address Organization Details Last Updated DateTime 4 152.4 cm 99 % 99 % 2.5 L/min 87 /min 38.5 kg/m2 50772.7 g 108 mm[Hg] 85 mm[Hg] Dulce Arteagarin [...] Tobacco Smoking Status Former Smoker Not Available [facility] 12/20/2019 03:16:12 Are You Currently Employed? No [id number] Information not available 12/20/2019 Education 12 [email or web address] Information not available 01/26/2011 What Is Your Occupation? DIsabled Social Security Disability [id number] Information not available 12/20/2019 Live Alone Or [...] previo usly record ed as Cancer [email or web address] [id number] Not available 11/25/2012 03:01:59 Father Diabetes mellitus previo usly record ed as Diabet es [email or web address] [id number] Not available 11/25/2012 03:01:59 Father Hypertensive disorder previo usly record ed as Hypert ension [email or web address] [id number] Not available 11/25/2012 03:01:59 Mother Malignant neoplastic disease 68 Breast (previ ously record ed as Cancer ) [email or web address] [id number] Not available 11/25/2012 03:01:59 Medical History Condition [...] [address] [place] [address] 12/21/2010 14:06:59 12/22/2010 09:40:34 1721 SV PAIN OFFICE [address] [place] [address] 12/27/2010 13:18:02 12/27/2010 15:06:30 5201 Klarissa Wilburn [facility] PAIN OFFICE [address] [place] [address] 02/16/2011 13:04:02 02/16/2011 16:16:31 6541 SV PAIN OFFICE [address] [place] [address] 03/10/2011 09:37:06 03/10/2011 10:39:44 8001 SV PAIN OFFICE [address] [place] [address] 04/05/2011 13:01:46 04/05/2011 14:47:42 04281 SV PAIN OFFICE [address] [place] [address] 06/17/2011 10:08:59 06/18/2011 13:15:27 69618 SV PAIN OFFICE [address] [place] [address] 11/07/2012 10:48:11 11/07/2012 15:59:02 86043 SV PAIN OFFICE [address] [place] [address] 11/19/2012 12:51:36 11/19/2012 16:05:42 07828 Klarissa Wilburn SV PAIN OFFICE [address] [place] [address] 12/24/2012 14:34:44 12/24/2012 15:27:26 Lumbosacral spondylosis without myelopathy 58384245 Mononeurit is of upper limb 99935396 Muscle pain 50843193 Lumbosacra l radiculitis 42206003 Displaceme nt of lumbar intervertebral disc without myelopathy 83484169 61007 SV PAIN OFFICE [address] [facility] [place] [address] 03/18/2013 13:07:26 03/19/2013 14:03:02 Lumbosacral spondylosis without myelopathy 96553038 Mononeurit is of upper limb 33046075 Muscle pain 12258686 Displaceme nt of lumbar intervertebral disc without myelopathy 78305423 Lumbosacra l radiculitis 62768159 Interverte bral disc disorder 67279461 61741 Lesa Marie MD PAIN OFFICE [address] [employer] [address] [facility] [place] [address] 05/16/2019 13:54:58 05/16/2019 16:19:59 Intercostal post-herpetic neuralgia 800579078 B02.29 28820 Lesa Marie MD PAIN OFFICE [address] [employer] [address] [facility] [place] [address] 02/04/2021 13:31:51 02/15/2021 13:47:06 Inflammation of joint of shoulder region 114577635 M13.819 M13.812 Intercosta l post-herpetic neuralgia 181785183 B02.29 Lumbosacra l radiculitis 28638007 M54.17 Displaceme nt of lumbar intervertebral disc without myelopathy 20007618 M51.26 55813 Lesa Marie MD PAIN OFFICE [address] [facility] [place] [address] 12/30/2021 14:38:15 12/30/2021 16:43:11 Trochanteric bursitis of right hip 3533928997 97756 M70.61 34160 Lesa Marie MD PAIN OFFICE [address] [employer] [address] [facility] [place] [address] 01/19/2022 10:09:37 01/19/2022 13:45:49 Trochanteric bursitis of right hip 1467008727 16733 M70.61 56291 Lesa Marie MD SV PAIN OFFICE [address] [place] [address] 02/17/2022 11:28:41 02/17/2022 13:57:15 Trochanteric bursitis of right hip 6093669633 87784 M70.61 08713 Lesa Marie MD SV PAIN OFFICE [address] [facility] [place] [address] 04/26/2022 10:47:04 04/26/2022 14:41:34 Trochanteric bursitis of left hip 4467964918 77703 M70.62 04144 Lesa Marie MD SV PAIN OFFICE [address] [facility] [place] [address] 11/30/2022 14:21:06 12/01/2022 11:16:50 Subacromial bursitis of right shoulder 8519479158 579329 M75.51 Inflammati on of joint of shoulder region 736739007 M13.812 M13.811 69941 Lesa Marie MD PAIN OFFICE [address] [facility] [place] [address] 12/05/2022 11:36:36 12/05/2022 13:17:19 Subacromial bursitis of right shoulder 3425717596 902364 M75.51 Inflammati on of joint of shoulder region 010981938 M13.812 M13.811 54209 Lesa Marie MD SV PAIN OFFICE [address] [facility] [place] [address] 12/12/2022 11:28:38 12/13/2022 11:15:40 Subacromial bursitis of right shoulder 6950436779 326712 M75.51 Inflammati on of joint of shoulder region 461630990 M13.812 M13.811 Lumbosacra l radiculopathy 3673344 M54.17 Degenerati on of lumbar intervertebral disc 22793273 M51.36 17054 Lesa Marie MD PAIN OFFICE [address] [employer] [address] [facility] [place] [address] 05/18/2023 09:54:41 05/18/2023 14:20:26 Lumbosacral radiculitis 37651765 M54.17 Displaceme nt of lumbar intervertebral disc without myelopathy 09988470 M51.26 Subacromia l bursitis of right shoulder 9529787987 123644 M75.51 Inflammati on of joint of shoulder region 647941301 M13.812 M13.811 Lumbosacra l radiculopathy 5663384 M54.17 Degenerati on of lumbar intervertebral disc 20592615 M51.36 22385 Lesa Marie MD PAIN OFFICE [address] [employer] [facility] [place] [address] 06/20/2023 10:26:03 06/20/2023 15:35:35 Lumbosacral radiculitis 20005688 M54.17 Displaceme nt of lumbar intervertebral disc without myelopathy 73276286 M51.26 Subacromia l bursitis of right shoulder 6127653310 020754 M75.51 Inflammati on of joint of shoulder region 351146434 M13.812 M13.811 Lumbosacra l radiculopathy 2292545 M54.17 Degenerati on of lumbar intervertebral disc 92611477 M51.36 29144 Lesa Marie MD PAIN OFFICE [address] [place] [address] 07/17/2023 11:21:50 07/17/2023 13:39:13 Subacromial bursitis of right shoulder 5264951199 033181 M75.51 Inflammati on of joint of shoulder region 132561480 M13.812 M13.811 02956 Lesa Marie MD PAIN OFFICE [address] [employer] [address] [facility] [place] [address] 12/07/2023 12:31:09 12/08/2023 10:25:28 Subacromial bursitis of right shoulder 8487322597 156460 M75.51 Inflammati on of joint of shoulder region 485390158 M13.812 M13.811 16221 Lesa Marie MD PAIN OFFICE [address] [place] [address] [place] [address] 02/08/2024 14:33:02 02/08/2024 16:19:44 Subacromial bursitis of right shoulder 4740502855 141196 M75.51 Inflammati on of joint of shoulder region 696032549 M13.812 M13.811 Health Concerns Section Related Observation LastModified by Organization Detai ls LastModified Time None Recorded Concern Status LastModified by Organization Details LastModified Time None Recorded Advance Directives Directive None Recorded Payers Encounter Date Sequence Insurance Name Policy Number Policy Blackwood Covered Member ID Blackwood Member ID Guarantor Name 05/18/2023 1 [facility] - DOS ON OR AFTER 2022 - ONE CARE (MEDICARE REPLACEMENT/ADV ANTAGE - HMO) Madeleine Ledezma [id number] Madeleine Darien 06/20/2023 1 [facility] - DOS ON OR AFTER 2022 - ONE CARE (MEDICARE REPLACEMENT/ADV ANTAGE - HMO) Madeleine Ledezma [id number] Madeleine Darien 07/17/2023 1 [facility] - DOS ON OR AFTER 2022 - ONE CARE (MEDICARE REPLACEMENT/ADV ANTAGE - HMO) Madeleine Ledezma [id number] Madeleine Darien 12/07/2023 1 [facility] - DOS ON OR AFTER 2022 - ONE CARE (MEDICARE REPLACEMENT/ADV ANTAGE - HMO) Madleeine Ledezma [id number] Madeleine Ledezma 02/08/2024 1 [facility] - DOS ON OR AFTER 2022 - ONE CARE (MEDICARE REPLACEMENT/ADV ANTAGE - HMO) Madeleine Ledezma [id number] Madeleine Ledezma Notes Date Note Type Note [...] bit. She has trialed an injection at [facility] and [facility] which did not help. She had a lumbar epidural steroid injection in 2013 which helped for years. She states the steroid injections increase her blood glucose levels but she is able to adjust with insulin. Lesa Marie MD [address] [facility] , [address], [place], [address], [facility] - Pain Management 05/19/2023 08:56:55 06/20/2023 text/html She is here for a trial of lumbar epidural steroid injection under fluoroscopic guidance. Lesa Marie MD [address] [facility] , [address], [place], [address], [facility] - Pain Management 06/20/2023 16:11:05 07/17/2023 text/html She is here for a right shoulder steroid injection under ultrasound guidance Lesa Marie MD [address] [facility] , [address], [place], [address], [facility] - Pain Management 07/17/2023 15:26:06 12/07/2023 text/html She is here for a right shoulder steroid injection under ultrasound guidance. She reports an infection in her right finger for which she is on antibiotics . The finger appears to be infected. She has also had recent hospitalization for covid but feels she is much improved now. Lesa Marie MD [address] [facility] , [address], [place], [address], [facility] - Pain Management 12/08/2023 11:34:53 02/08/2024 text/html She is here for a bilateral shoulder steroid injection under ultrasound guidance Lesa Marie MD [address] [facility] , [address], [place], [address], [facility] - Pain Management 02/09/2024 08:57:46 OBGyn Episode No OBEpisode recorded.
--- OUTSIDE RECORDS SUMMARY | 2024-05-07 16:46 | XMS_ITS | Data Portability ---
Author Organization [employer] [place] [facility] [employer] Address [address] [place] [address] Care Team Providers Care Molded Goods Spot Picker Name Role Phone [facility] Referring Provider Assessment Encounter Date Assessment Date Assessment LastModified by Organization Details LastModified Time 04/25/2023 04/25/2023 I have reviewed and agree with the assessment and plan as documented by the section cutter. I provided real-time medical direction for this [...] doxycycline hyclate 100 mg tablet 2023 024 [id number], [address] [place], [place], [id number], 17:02:53 Patient TargetsNo targets recorded. Patient InstructionsNo instructions recorded. Reason for Referral None Reported. Medical Equipment None Reported. Allergies Allergen ID Allergen Name Allergen Category Reaction Reaction Severity Criticality Documentation Date Start Date Code Code System Note Provider Name and Address Organization Details Recorded Time 7482 latex environme nt,medica tion Not available Not available Not available 01/02/2024 88894 91 [facility] Not Available [facility] 4 03:47:12 8847 Product containin g penicilli n (product) medicatio n Not available Not available Not available 01/02/2024 67979 8001 SNOMED Not Available [facility] 4 03:47:12 Medications Name Sig [...] Available Not Available Not Available Dexcom G6 Conduit Cleaner USE DIRECTED active Not Available Not Available [...] % 98 % 2 L/min 16 /min 57509.4 g 97.2 [degF] 73 /min 152.4 cm [...] Note Elizabeth Phelps MD Main - [facility] [address] [place] [address] 04/25/2023 16:58:36 04/26/2023 13:01:34 Acute exacerbation of chronic obstructive pulmonary disease 978035717 J44.1 Health Concerns Section Related Observation LastModified by Organization Detai ls LastModified Time None Recorded Concern Status LastModified by Organization Details LastModified Time None Recorded Advance Directives Directive None Recorded Payers Encounter Date Sequence Insurance Name Policy Number Policy Blackwood Covered Member ID Blackwood Member ID Guarantor Name 04/25/2023 1 [facility] - DOS ON OR AFTER 2022 - DUAL ELIGIBLE - HALFWAY OPTIONS AND ONE CARE (MEDICARE REPLACEMENT/ADV ANTAGE - HMO) Madeleine Ledezma [id number] Madeleine Ledezma Notes Date Note Type Note [...] .................. .................. .................. .................. .................. .................. ............... Cylinder Die Machine Helper Note From Cory Pierce: Pt reports three [...] .................. ............... Disposition: Netta Phelps MD [address] [facility],[address], [place], [address], [place] [facility] [employer] 04/25/2023 17:52:09 OBGyn Episode No OBEpisode recorded.
== END 2024-05-07 14:07 | disposition home or self-care (01) ==
PROVIDERS: PCP Internal Medicine; Visit Provider Physician Assistant Surgical
DX: K95.09 Other complications of gastric band procedure (principal); T81.30XA Disruption of wound, unspecified, initial encounter
CPT/HCPCS: 99214; G2211

== ENCOUNTER → 2024-05-07 13:22 | Outpatient (BNVA) | payer OTHER, SELFPAY | PROVIDERS: PCP Internal Medicine; Visit Provider Physician Assistant Surgical | DX: K95.09 Other complications of gastric band procedure (principal); T81.31XA Disruption of external operation (surgical) wound, not elsewhere classified, initial encounter | CPT/HCPCS: 99212 ==

== ENCOUNTER 2024-05-08 14:57 | Outpatient (AMB) | payer OTHER, SELFPAY ==
--- NOTE | 2024-05-08 09:36 | A.OFFVIS_ITS ---
Vital Signs 05/08/24 15:01 Height 5 ft Weight 187 lb 6.287 oz BMI 36.6 BP 130/80 Blood Pressure Location Rt brachial Position Sitting Pulse 80 Pulse Source Palpation Intake Visit Reasons: T2DM Intake Note: Patient presents today for a follow-up on Type 2 Diabetes Mellitus: Last Diabetic eye exam was on: DUE Last Podiatry exam was on: Does not see a Power Engineer Most recent HbA1c: 7.0%, 04/25/2024 Random Glucose- 113 mg/dL, Today Product Architect Required: No Accompanied by: FILM DEVELOPER Allergies aspirin [ASPIRIN] Allergy (Intermediate, Verified 05/08/24 15:02) GI UPSET, stomach pain latex [LATEX] Allergy (Intermediate, Verified 05/08/24 15:02) HIVES HPI Comments Details: 73 year old who is seen in f/u for type 2 diabetes. She was last seen by myself 02/07/24.. She was started on an islet insulin pump 2023 and had been doing well with exception of a low glucose during the first week of pump therapy. She had a hypoglycemic episode to 40 associated with nausea, vomiting and hypothermia 01/05/24 and insulin pump was discontinued in the hospital and she was placed on Lantus insulin and a decision was made to keep her off pump therapy. She has acid reflux which has not increased since starting Mounjaro Has issue with lap band which was removed and she is recovering from a wound infection, seen weekly by surgeon. Initially diagnosed with T2DM in >10 yrs . Saw allyson in the nast Dr. Lyons at [facility] Was initially started on treatment with metformin. Stopped because she couldn't swallow the pills Lantus 8 units she skips few times per week if sugar running lower than 90. Novolog sometimes does not need takes on occasion only 100-150 2 units 151-200 4 units over 200 6 units Mounjaro 2.5mg weekly stopped for one week because she had a wound infection s/p removal of lap band. Metformin 1000 mg twice daily Treats lows with eats sugar. Checks sugar after to ensure it is rising. Treats according to rule of 15's. Has a glucagon rescue kit at home . Family history of T2DM in maternal grandmother, cousins , aunt, sister . Has Retinopathy: Has eyes checked yearly, last eye exam 07/27 Has neuropathy, does not see podiatry. Symptoms include: Numbness and tingli ng. Patient is on gabapentin Denies nephropathy, on OSITO/ARB eGFR>60 08/27/2022 microalbumin 11.0 Has HLD, on statin. Last LDL 77 2022 Denies CAD. Has seen Lissy [facility] Medical History Peripheral vascular disease Supplemental oxygen dependent GERD (gastroesophageal reflux disease) CASSANDRA (obstructive sleep apnea) Hypoglycemia associated with type 2 diabetes mellitus COPD exacerbation C. difficile enteritis COVID-19 DVT (deep venous thrombosis) Pulmonary hypertension Pulmonary emboli Acute on chronic respiratory failure with hypoxia and hypercapnia Chronic respiratory failure [place] (hard of hearing) PONV (postoperative nausea and vomiting) Post herpetic neuralgia Pneumonia Back pain Morbid obesity Chest crackles Cardiomegaly Asthma-COPD overlap syndrome Acute respiratory failure Hyperlipidemia Hypertension Diabetes Arnold-Chiari malformation Arthritis Fibromyalgia Cough CASSANDRA treated with BiPAP Asthma Sinusitis Surgical History Hx of eye surgery History of esophagogastroduodenoscopy (EGD) H/O colonoscopy Hx of laparoscopic gastric banding (~2009) H/O bilateral breast reduction surgery H/O brain surgery Family History Mother HTN (hypertension) Breast cancer Father Primary cancer of bone marrow Social History Household Members: Family Household Members Other:: granddaughter Housing: Apartment Are you a primary customer care specialist to a significant other at home: No Do you presently have visiting nurse or other home services: Yes (FILM DEVELOPER) Unable to assess alcohol history related to: Unable to respond Alcohol intake: unknown Patient Tobacco Use Status: Former Tobacco user Tobacco use type: Cigarette Years Smoked: 15 +/- e-Cigarette/Vaping Use: Never Used Second Hand Smoke Exposure: No Advance Directives Date on File: 11/11/21 service: No Physical Exam Vital Signs: Last Vital Signs Pulse 80 05/08/24 15:01 BP 130/80 05/08/24 15:01 BMI result Body Mass Index 36.6 Const Other: Absence of Cushingoid features. Absence of acromegalic features. Heart S1 S2, Reg R/R. No M/R G. Skin exam reveals absence of vitiligo or acanthosis nigricans. Results Reviewed Results Reviewed: Laboratory Last Values Glucose (Clinic) 113 mg/dL (60-115) 05/08/24 15:08 Assessment & Plan Assessment & Plan (1) Diabetes: Code(s): E11.9 - Type 2 diabetes mellitus without complications Category: Medical Qualifiers: Diabetes mellitus complication status: with hypoglycemia Diabetes mellitus [facility] insulin use: with [facility] Diabetes mellitus type: type 2 Plan: 73-year-old type 2 diabetic on basal bolus insulin plus GLP 1and metformin with retinopathy and neuropathy, taken off an islet insulin pump last year secondary to an episode of profound hypoglycemia. Lantus 8 units Novolog uses sparingly 100-150 2 units 151-200 4 units over 200 6 units Mounjaro 5.0mg weekly Metformin 1000 mg twice daily She will take insulin only as needed. If she develops any symptoms from Mounjaro she will let us. Clarity moira was set up today at patient's appointment so that we can download her numbers in the future. She reports no significant lows and numbers in good range over the past 2 week. Medications: New tirzepatide (Mounjaro) 5 mg (0.5 mL) subcut QWEEK 30 days 2.5 mL 2RF Humalog KwikPen Insulin (insulin lispro) 4-8 units tid with meals as needed subcutaneously use as directed; 30 days 6 mL 0RF MDD 24 units NS Discontinued diabetic supplies, miscellan. (CeQur Simplicity Toll Collector) Discontinued Reason: Doctor's Order As directed for use with cequr patc 1 ea 0RF Patient Instructions: Always carry a source of sugar. Coding Level of Care Code Est Pt Level 4 (30632) Complex EM visit Add On G2211 Diagnoses Diabetes E11.9 Diabetes mellitus complication status: with hypoglycemia Diabetes mellitus [facility] insulin use: with [facility] use Diabetes mellitus type: type 2
[2024-05-08 15:01] VITALS: BP 130/80; PULSE 80; BMI 36.6
[2024-05-08 15:12] LABS: Glucose, Whole Blood 113 mg/dL (60-115)
--- OUTSIDE RECORDS SUMMARY | 2024-05-08 18:08 | XMS_ITS | Data Portability ---
Author Organization [employer] Address [address] [place] [id number] Care Team Providers Care Loan Funder Name Role Phone [facility] Referring Provider Assessment Encounter Date Assessment Date Assessment LastModified by Organization Details LastModified Time 04/25/2023 04/25/2023 I have reviewed and agree with the assessment and plan as documented by the bull chain operator. I provided real-time medical direction for [...] doxycycline hyclate 100 mg tablet 2023 024 [id number], [address] [place], [place], [phone], 17:02:53 Patient TargetsNo targets recorded. Patient InstructionsNo instructions recorded. Reason for Referral None Reported. Medical Equipment None Reported. Allergies Allergen ID Allergen Name Allergen Category Reaction Reaction Severity Criticality Documentation Date Start Date Code Code System Note Provider Name and Address Organization Details Recorded Time 6931 latex environme nt,medica tion Not available Not available Not available 01/02/2024 50755 91 RxNorm Not Available [facility] 03:47:12 8847 Product containin g penicilli n (product) medicatio n Not available Not available Not available 01/02/2024 04940 8001 SNOMED Not Available [facility] 03:47:12 Medications Name [...] Available Not Available Not Available Dexcom G6 Glass Checker USE DIRECTED active Not Available Not Available [...] % 98 % 2 L/min 16 /min 82557.4 g 97.2 [degF] 73 /min 152.4 cm [...] Note Elizabeth Phelps MD Main - [facility] [address] [place] [phone] 04/25/2023 16:58:36 04/26/2023 13:01:34 Acute exacerbation of chronic obstructive pulmonary disease 417971950 J44.1 Health Concerns Section Related Observation LastModified by Organization Detai ls LastModified Time None Recorded Concern Status LastModified by Organization Details LastModified Time None Recorded Advance Directives Directive None Recorded Payers Encounter Date Sequence Insurance Name Policy Number Policy [place] Covered Member ID [place] Member ID Guarantor Name 04/25/2023 1 [facility] - DOS ON OR AFTER 2022 - DUAL ELIGIBLE - JAIL OPTIONS AND ONE CARE (MEDICARE REPLACEMENT/ADV ANTAGE - HMO) Madeleine Ledezma [id number] Madeleine Ledezma Notes Date Note Type Note [...] .................. .................. .................. .................. .................. .................. ............... Barrel Drainer Note From Cory Pierce: Pt reports three [...] .................. ............... Disposition: Netta Phelps MD [address] [facility],[address], [place], [address], [place] - [employer] 04/25/2023 17:52:09 OBGyn Episode No OBEpisode recorded.
--- OUTSIDE RECORDS SUMMARY | 2024-05-08 18:08 | XMS_ITS | Data Portability ---
Author Organization [facility] Pain Managem ent, PAIN OFFICE Address [address],[facility] [address] [place] [address] Care Team Providers Care Qa Analyst Name Role Phone CARINA SOLER Primary Care Provider DENNIS DYER OTHER Assessment Encounter Date Assessment Date Assessment LastModified [...] booked after insurance approval. She needs a livery car driver on the day of the procedure. [...] Details Recorded Time Intercostal post-herpet ic neuralgia 559556759 Active Lesa jaimes MD [address] , [address], [place], [address], [place] [facility] 0 14:21:30 Trochanteri c bursitis of left hip 0258063204426 03 Active 2022 Lesa jaimes MD [address] , [address], [place], [address], [place] [facility] 3 14:37:24 Lumbosacral radiculitis 06203829 Active Lesa jaimes MD [address] , [address], [place], [address], [place] [facility] 4 13:08:14 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 62132410 Active Lesa jaimes MD [address] , [address], [place], [address], [place] [facility] 4 13:08:14 Lumbosacral spondylosis without myelopathy 60732241 Active Lesa jaimes MD [address] , [address], [place], [address], [place] [facility] 4 13:08:14 Mononeuriti s of upper limb Active Lesa jaimes MD [address] , [address], [place], [address], [place] [facility] 4 13:08:14 Muscle pain 39642505 Active Lesa jaimes MD [address] , [address], [place], [address], [place] [facility] 4 13:08:14 Problem Notes None recorded. Procedures Surgical History Date Name Laterality Status Provider Name and Address Organization Details Recorded Time 02/08/20 24 Intra-articular shoulder steroid injection under ultrasound guidance completed Lesa Marie MD [address] [facility] , [address], [place], [address], [place] [facility] 02/08/2024 16:15:41 07/17/19 24 Intra-articular shoulder steroid injection under ultrasound guidance completed Lesa Marie MD [address] [facility] , [address], [place], [address], [place] [facility] 07/17/2023 13:37:19 06/20/19 24 Lumbar Epidural steroid injection under fluoroscopic guidance completed Lesa Marie MD [address] [facility] , [address], [place], [address], [place] [facility] 06/20/2023 11:18:39 12/13/19 23 Intra-articular shoulder steroid injection under ultrasound guidance completed Lesa Marie MD [address] [facility] , [address], [place], [address], [place] [facility] 12/12/2022 13:15:42 12/06/19 23 Intra-articular shoulder steroid injection under ultrasound guidance completed MD Nakia Hoover [address] [facility] , [address], [place], [address], [place] [facility] 12/05/2022 13:14:40 04/26/19 23 Greater Trochanteric Bursa Steroid Injection completed Lesa Marie MD [address] [facility] , [address], [place], [address], [place] [facility] 04/26/2022 14:36:25 01/20/20 22 Greater Trochanteric Bursa Steroid Injection completed Lesa Marie MD [address] [facility] , [address], [place], [address], [place] [facility] 01/19/2022 13:42:11 03/18/19 14 Lumbar Epidural steroid injection under fluoroscopic guidance completed Lesa Marie MD [address] [facility] , [address], [place], [address], [place] [facility] 03/19/2013 13:08:14 11/20/19 13 Lumbar Epidural steroid injection under fluoroscopic guidance completed Lesa Marie MD [address] [facility] , [address], [place], [address], [place] [facility] 11/20/2012 09:33:24 03/10/19 12 Trigger Point Injections under ultrasound guidance completed Lesa Marie MD [address] [facility] , [address], [place], [address], [facility] - Pain Management 03/10/2011 10:38:48 03/06/19 06 Other completed Not Available [facility] 1 03:05:25 03/06/19 02 Other completed Not Available [facility] 1 03:05:25 Other completed Not Available [facility] 03:05:25 Imaging Results None recorded. Procedure Notes None recorded. Medical Equipment None Reported. Allergies Allergen ID Allergen Name Allergen Category Reaction Reaction Severity Criticality Documentation Date Start Date Code Code System Note Provider Name and Address Organization Details Recorded Time 441 aspirin medicatio n other mild Not available 12/21/2010 1191 RxNorm Burni ng sensa tion in the stoma ch Not Available [facility] 1 03:05:17 541 latex environme nt,medica tion rash Not available Not available 12/27/2010 52119 91 RxNorm Not Available [facility] 1 03:05:17 Medications Name Sig Start [...] Not Available No t Available Dexcom G6 Prop Worker USE DIRECTED active Not Available Not Available [...] Available Not Available Not Available CeQur Simplicity Computational Geneticist USE DIRETED FOR USE WITH CEQUR active Not Available Not Available No t Available FreeStyle Lai 2 Joice active Not Available Not Available Not Available [...] /min 96 % 96 % 39.1 kg/m2 43956.4 7 g 143 mm[Hg] 65 mm[Hg] Lesa jaimes MD [address] [place] [address] , [address], [place], [address], [facility] Pain [facility] 4 10:00:38 Date Recorded Body height Heart rate Oxygen saturation Oxygen saturation in Arterial blood by Pulse oximetry Systolic blood pressure Diastolic blood pressure Provider Name and Address Organization Details Last Updated DateTime 4 152.4 cm 93 /min 94 % 94 % 168 mm[Hg] 59 mm[Hg] Grace Queen [facility] Pain [facility] 4 10:50:41 Date Recorded Body height Oxygen saturation Oxygen saturation in Arterial blood by Pulse oximetry Inhaled oxygen flow rate Heart rate Body mass index (BMI) Body weight Systolic blood pressure Diastolic blood pressure Provider Name and Address Organization Details Last Updated DateTime 4 152.4 cm 99 % 99 % 2.5 L/min 87 /min 38.5 kg/m2 34308.7 g 108 mm[Hg] 85 mm[Hg] Dulce Arteagarin [...] Tobacco Smoking Status Former [facility]oker [facility] 12/20/2019 03:16:12 Are You Currently Employed? No [id number] Information not available 12/20/2019 Education 12 [email or web address] Information not available 01/26/2011 What Is Your Occupation? DIsabled Social Security Disability [id number] Information not available 12/20/2019 Live Alone Or [...] previo usly record ed as Cancer [email or web address] [id number] Not available 11/25/2012 03:01:59 Father Diabetes mellitus previo usly record ed as Diabet es [email or web address] [id number] Not available 11/25/2012 03:01:59 Father Hypertensive disorder previo usly record ed as Hypert ension [email or web address] [id number] Not available 11/25/2012 03:01:59 Mother Malignant neoplastic disease 68 Breast (previ ously record ed as Cancer ) Not available 11/25/2012 03:01:59 Medical History Condition Response Neuropathy/Neuralgia Y Depression Y COPD Y Anxiety Disorder Y Diabetes Y Arthritis N Asthma Y Headache Y GERD/Reflux Y Fibromyalgia Y Hypertension Y Gynecological HistoryNo gynecological history recorded. Obstetrics History GPAL:G 0 P 0 0 0 0 Past Encounters Encounter ID Performer Location Encounter Start Date Encounter Closed Date Diagnosis/Indication Diagnosis SNOMED-CT Code Diagnosis ICD10 Code Diagnosis Note [id number] [facility] [address] [place] [address] 12/21/2010 14:06:59 12/22/2010 09:40:34 1721 [facility] [address] [place] [address] 12/27/2010 13:18:02 12/27/2010 15:06:30 [id number] Klarissa Wilburn [facility] [address] [place] [address] 02/16/2011 13:04:02 02/16/2011 16:16:31 6541 [facility] [address] [place] [address] 03/10/2011 09:37:06 03/10/2011 10:39:44 8001 [facility] [address] [place] [address] 04/05/2011 13:01:46 04/05/2011 14:47:42 [id number] [facility] [address] [place] [address] 06/17/2011 10:08:59 06/18/2011 13:15:27 [id number] [facility] [address] [place] [address] 11/07/2012 10:48:11 11/07/2012 15:59:02 [id number] [facility] [address] [place] [address] 11/19/2012 12:51:36 11/19/2012 16:05:42 [id number] Klarissa Wilburn [facility] [address] [place] [address] 12/24/2012 14:34:44 12/24/2012 15:27:26 Lumbosacral spondylosis without myelopathy 08715371 Mononeurit is of upper limb 74107908 Muscle pain 34555634 Lumbosacra l radiculitis 10747804 Displaceme nt of lumbar intervertebral disc without myelopathy 59858865 [id number] [facility] [address] [facility] [place] [place] [address] 03/18/2013 13:07:26 03/19/2013 14:03:02 Lumbosacral spondylosis without myelopathy 05686818 Mononeurit is of upper limb 82257258 Muscle pain 65885015 Displaceme nt of lumbar intervertebral disc without myelopathy 26236934 Lumbosacra l radiculitis 26493515 Interverte bral disc disorder 27634198 [id number] Lesa Marie MD PAIN OFFICE [address] [facility] [place] [address] 05/16/2019 13:54:58 05/16/2019 16:19:59 Intercostal post-herpetic neuralgia 372074272 B02.29 [id number] Lesa Marie MD PAIN OFFICE [address] [facility] [place] [address] 02/04/2021 13:31:51 02/15/2021 13:47:06 Inflammation of joint of shoulder region 251663966 M13.819 M13.812 Intercosta l post-herpetic neuralgia 051224451 B02.29 Lumbosacra l radiculitis 57833790 M54.17 Displaceme nt of lumbar intervertebral disc without myelopathy 25052469 M51.26 [id number] Lesa Marie MD PAIN OFFICE [address] [facility] [place] [address] 12/30/2021 14:38:15 12/30/2021 16:43:11 Trochanteric bursitis of right hip 9700333666 58525 M70.61 [id number] Lesa Marie MD PAIN OFFICE [address] [facility] [place] [address] 01/19/2022 10:09:37 01/19/2022 13:45:49 Trochanteric bursitis of right hip 5457933530 26171 M70.61 [id number] Lesa Marie MD [facility] [address] [place] [address] 02/17/2022 11:28:41 02/17/2022 13:57:15 Trochanteric bursitis of right hip 9497462559 24748 M70.61 [id number] Lesa Marie MD [facility] PAIN OFFICE [address] [facility] [place] [address] 04/26/2022 10:47:04 04/26/2022 14:41:34 Trochanteric bursitis of left hip 8532019092 84291 M70.62 [id number] Lesa Marie MD [facility] PAIN OFFICE [address] [facility] [place] [address] 11/30/2022 14:21:06 12/01/2022 11:16:50 Subacromial bursitis of right shoulder 7909455266 877758 M75.51 Inflammati on of joint of shoulder region 892049284 M13.812 M13.811 [id number] Lesa Marie MD PAIN OFFICE [address] [facility] [place] [place] [address] 12/05/2022 11:36:36 12/05/2022 13:17:19 Subacromial bursitis of right shoulder 8898944404 676998 M75.51 Inflammati on of joint of shoulder region 530311023 M13.812 M13.811 [id number] Lesa Marie MD [facility] PAIN OFFICE [address] [facility] [place] [address] 12/12/2022 11:28:38 12/13/2022 11:15:40 Subacromial bursitis of right shoulder 0497179160 276104 M75.51 Inflammati on of joint of shoulder region 753235353 M13.812 M13.811 Lumbosacra l radiculopathy 8638702 M54.17 Degenerati on of lumbar intervertebral disc 68939502 M51.36 [id number] Lesa Marie MD PAIN OFFICE [address] [facility] [place] [address] 05/18/2023 09:54:41 05/18/2023 14:20:26 Lumbosacral radiculitis 72323626 M54.17 Displaceme nt of lumbar intervertebral disc without myelopathy 40974776 M51.26 Subacromia l bursitis of right shoulder 8884867567 188042 M75.51 Inflammati on of joint of shoulder region 213733791 M13.812 M13.811 Lumbosacra l radiculopathy 1125766 M54.17 Degenerati on of lumbar intervertebral disc 37941674 M51.36 [id number] Lesa Marie MD PAIN OFFICE [address] [facility] [place] [address] 06/20/2023 10:26:03 06/20/2023 15:35:35 Lumbosacral radiculitis 61510750 M54.17 Displaceme nt of lumbar intervertebral disc without myelopathy 45945229 M51.26 Subacromia l bursitis of right shoulder 8614683301 298191 M75.51 Inflammati on of joint of shoulder region 618772164 M13.812 M13.811 Lumbosacra l radiculopathy 4799355 M54.17 Degenerati on of lumbar intervertebral disc 51098295 M51.36 [id number] Lesa Marie MD PAIN OFFICE [address] [place] [address] 07/17/2023 11:21:50 07/17/2023 13:39:13 Subacromial bursitis of right shoulder 3274571820 721676 M75.51 Inflammati on of joint of shoulder region 322021163 M13.812 M13.811 [id number] Lesa Marie MD PAIN OFFICE [address] [facility] [place] [address] 12/07/2023 12:31:09 12/08/2023 10:25:28 Subacromial bursitis of right shoulder 0562865163 737925 M75.51 Inflammati on of joint of shoulder region 059108241 M13.812 M13.811 [id number] Lesa Marie MD PAIN OFFICE [address] [place] [address] [place] [address] 02/08/2024 14:33:02 02/08/2024 16:19:44 Subacromial bursitis of right shoulder 1857690283 685255 M75.51 Inflammati on of joint of shoulder region 590160936 M13.812 M13.811 Health Concerns Section Related Observation LastModified by Organization Detai ls LastModified Time None Recorded Concern Status LastModified by Organization Details LastModified Time None Recorded Advance Directives Directive None Recorded Payers Encounter Date Sequence Insurance Name Policy Number Policy Blackwood Covered Member ID Blackwood Member ID Guarantor Name 05/18/2023 1 [facility] [employer] - DOS ON OR AFTER 2022 - ONE CARE (MEDICARE REPLACEMENT/ADV ANTAGE - HMO) Madeleine Ledezma [id number] Madeleine Darien 06/20/2023 1 [facility] [employer] - DOS ON OR AFTER 2022 - ONE CARE (MEDICARE REPLACEMENT/ADV ANTAGE - HMO) Madeleine Ledezma [id number] Madeleine Darien 07/17/2023 1 [facility] [employer] - DOS ON OR AFTER 2022 - ONE CARE (MEDICARE REPLACEMENT/ADV ANTAGE - HMO) Madeleine Ledezma [id number] Madeleine Darien 12/07/2023 1 [facility] [employer] - DOS ON OR AFTER 2022 - ONE CARE (MEDICARE REPLACEMENT/ADV ANTAGE - HMO) Madeleine Ledezma [id number] Madeleine Ledezma 02/08/2024 1 [facility] [employer] - DOS ON OR AFTER 2022 - ONE CARE (MEDICARE REPLACEMENT/ADV ANTAGE - HMO) Madeleine Ledezma [id number] Madeleine Ledezma Notes Date Note Type Note [...] bit. She has trialed an injection at [employer] and [employer] which did not help. She had a lumbar epidural steroid injection in 2013 which helped for years. She states the steroid injections increase her blood glucose levels but she is able to adjust with insulin. Lesa Marie MD [address] [facility] , [address], [place], [address], [facility] - Pain Management 05/19/2023 08:56:55 06/20/2023 text/html She is here for a trial of lumbar epidural steroid injection under fluoroscopic guidance. Lesa Marie MD [address] [facility] , [address], [place], [address], [facility] - Pain Management 06/20/2023 16:11:05 07/17/2023 text/html She is here for a right shoulder steroid injection under ultrasound guidance Lesa Marie MD [address] [facility] , [address], [place], [address], [facility] - Pain Management 07/17/2023 15:26:06 12/07/2023 text/html She is here for a right shoulder steroid injection under ultrasound guidance. She reports an infection in her right finger for which she is on antibiotics . The finger appears to be infected. She has also had recent hospitalization for covid but feels she is much improved now. Lesa Marie MD [address] [facility] , [address], [place], [address], [facility] - Pain Management 12/08/2023 11:34:53 02/08/2024 text/html She is here for a bilateral shoulder steroid injection under ultrasound guidance Lesa Marie MD [address] [facility] , [address], [place], [address], [facility] - Pain Management 02/09/2024 08:57:46 OBGyn Episode No OBEpisode recorded.
== END 2024-05-08 15:34 | disposition home or self-care (01) ==
PROVIDERS: PCP Internal Medicine; Visit Provider Nurse Practitioner Adult Health
DX: E11.9 Type 2 diabetes mellitus without complications (principal)
CPT/HCPCS: 99214; G2211

== ENCOUNTER → 2024-05-08 14:57 | Outpatient (BNVA) | payer OTHER, SELFPAY | PROVIDERS: PCP Internal Medicine; Visit Provider Nurse Practitioner Adult Health | DX: E11.9 Type 2 diabetes mellitus without complications (principal); K21.9 Gastro-esophageal reflux disease without esophagitis; Z79.4 Long term (current) use of insulin; Z96.41 Presence of insulin pump (external) (internal); Z79.899 Other long term (current) drug therapy | CPT/HCPCS: 82947; 99212 ==

== ENCOUNTER 2024-05-21 11:23 | Outpatient (AMB) | payer OTHER, SELFPAY ==
--- NOTE | 2024-05-21 11:25 | MHC.OFFVISWM ---
VS Expanded 05/21/24 11:34 BP 136/79 Blood Pressure Location Rt brachial Blood Pressure Position Sitting Pulse 103 H Pulse Source Pulse Oximeter Temp 96.4 F L Temperature Source Temporal Artery Scan Pulse Oximetry 95 Oxygen Delivery Method Room Air Height 5 ft Weight 175 lb 6.4 oz BMI 34.3 Body Fat % 47.0 Body Fat Mass 82.4 Fat Free Mass 92.8 Visceral Fat Rating 14.0 Body Water % 37.2 Body Water Mass 65.2 Muscle Mass/Score 88.2 Basal Metabolic Rate/Score 1,315 Intake Visit Reasons: OV) PO Gastric Band Removal 03/13/24 Allergies aspirin [ASPIRIN] Allergy (Intermediate, Verified 05/21/24 11:37) GI UPSET, stomach pain latex [LATEX] Allergy (Intermediate, Verified 05/21/24 11:37) HIVES Medication List - Last Reconciled 05/21/24 by KULWANT Mccrary acetaminophen (Tylenol Extra Strength) 650 mg PO Q6H PRN acetone (urine) test (Ketostix strips) prn tid glucose over 250, illness, nausea, vomiting albuterol sulfate 2.5 mg inhalation Q4H PRN albuterol sulfate 90 mcg/actuation 2 puffs PO QID PRN 90 days ammonium lactate 12% 1 appl topical DAILY aripiprazole 7.5 mg PO DAILY atorvastatin 40 mg PO DAILY azelastine 1 spray intranasal BEDTIME PRN blood sugar diagnostic (FreeStyle Lite Strips) As directed prn qid sensor failure, confirm glucose blood-glucose meter (FreeStyle Lite Meter kit) As directed blood-glucose meter,continuous (Dexcom G7 Wrapper Stemmer Hand) As directed blood-glucose sensor (Dexcom G7 Sensor device) APPLY DIRECTED AND CHANGE EVERY 10 DAYS (BULK) bolus insulin pump, 200 unit (CeQur Simplicity) wuheukjfpg-rkwmdfbv-zeqzkybdtk 160-9-4.8 mcg/actuation (Breztri Aerosphere) 2 inhalations inhalation BID buspirone 30 mg PO BID clonazepam 0.5 mg PO BID PRN [diabetic shoes extra depth orthopedic shoes ( 1 pair ) with customize heat molded multi density inner soles ( 3 pair) Dispense 1 Sig: As directed DX: And IDDM /polyneuropathy ( E11 0.42 ); hammertoe foot deformity ( M 20.41, and 20.42 ) pre ulcerative skin lesion ( L 85.1 ) Diagnosis ( E11 0.42 ) type 2 diabetes with polyneuropathy] diabetic supplies, miscellan. (CeQur Simplicity Drywall Contractor) As directed for use with cequr insulin patch donepezil 5 mg PO BEDTIME duloxetine 60 mg PO DAILY fluticasone propionate 50 mcg/actuation 2 sprays intranasal DAILY gabapentin 300 mg PO BEDTIME 30 days glucagon 3 mg/actuation (Baqsimi) 3 mg intranasal ONCE PRN 30 days MDD may repeat in 15 min Humalog KwikPen Insulin (insulin lispro) 4-8 units tid with meals as needed subcutaneously use as directed; 30 days MDD 24 units NS insulin glargine 8 units subcut DAILY PRN insulin syringe-needle U-100 (BD Insulin Syringe Ultra-Fine) qid for insulin administration lancets (FreeStyle Lancets) 4 times a day prn sensor failure or to confirm glucose lancets (FreeStyle Lancets) As directed checks 4 times a day lidocaine 5% (Lidoderm) 1 patch topical DAILY PRN lisinopril mg PO DAILY magnesium oxide (MagOx) 400 mg PO BID melatonin 10 mg PO BEDTIME PRN metformin 1,000 mg PO BID montelukast 10 mg PO DAILY 90 days nebulizers As directed nystatin (Nystop) 1 appl topical BID-TID PRN nystatin 1 mL PO BID Oxygen Home Use As directed pantoprazole 40 mg PO DAILY@0630 pen needle, diabetic (BD Verenice 2nd Gen Pen Needle) qid pen needle, diabetic (BD Ultra-Fine Short Pen Needle) DIRECTED TO INJECT FOUR TIMES DAILY sucralfate 10 mL PO BID tirzepatide (Mounjaro) 5 mg (0.5 mL) subcut QWEEK 30 days tramadol 50 mg PO QID PRN vibegron (Gemtesa) 75 mg PO DAILY walker As directed zolpidem 10 mg PO BEDTIME PRN HPI Comments Details: 73-year-old female status post gastric band removal on 03/13/2024. She presented to the hospital on 04/23/2024 with an abdominal rash. She was found to have septic shock with hypotension requiring IV vancomycin, Zosyn, clindamycin as well as pressors. She remained in the hospital for 3 days, discharged home on 04/26/2024, ultimately being discharged home on Augmentin and doxycycline for 5 days. Of note, she was found to have incisional dehiscence at the site of her gastric port. There was concern of possible abscess there but inspection at the time of presentation in the emergency room showed no evidence of purulent material or fluctuance within the wound itself. This was explored by Dr. Granados bedside in the emergency department. Since then, she has been using half inch packing moistened with saline, changed every other day. Denies fevers at home. No complaints of pain. Reports blood sugars 125. Overall feeling well. Current meal plan: Celebrate rebuild, 2 scoops, x3 shakes per day. She may also have a small meal with 7 forks of protein and 7 forks of vegetables. [facility] Medical History Peripheral vascular disease Supplemental oxygen dependent GERD (gastroesophageal reflux disease) CASSANDRA (obstructive sleep apnea) Hypoglycemia associated with type 2 diabetes mellitus COPD exacerbation C. difficile enteritis COVID-19 DVT (deep venous thrombosis) Pulmonary hypertension Pulmonary emboli Acute on chronic respiratory failure with hypoxia and hypercapnia Chronic respiratory failure NOOKSACK (hard of hearing) PONV (postoperative nausea and vomiting) Post herpetic neuralgia Pneumonia Back pain Morbid obesity Chest crackles Cardiomegaly Asthma-COPD overlap syndrome Acute respiratory failure Hyperlipidemia Hypertension Diabetes Arnold-Chiari malformation Arthritis Fibromyalgia Cough CASSANDRA treated with BiPAP Asthma Sinusitis Surgical History Hx of eye surgery History of esophagogastroduodenoscopy (EGD) H/O colonoscopy Hx of laparoscopic gastric banding (~2009) H/O bilateral breast reduction surgery H/O brain surgery Family History Mother HTN (hypertension) Breast cancer Father Primary cancer of bone marrow Social History Household Members: Family Household Members Other:: granddaughter Housing: Apartment Are you a primary child care centre manager to a significant other at home: No Do you presently have visiting nurse or other home services: Yes (CHEMICAL RESEARCH WORKER) Unable to assess alcohol history related to: Unable to respond Alcohol intake: unknown Patient Tobacco Use Status: Former Tobacco user Tobacco use type: Cigarette Years Smoked: 15 +/- e-Cigarette/Vaping Use: Never Used Second Hand Smoke Exposure: No Advance Directives Date on File: 11/11/21 service: No Physical Exam Const General: cooperative, comfortable and no acute distress Orientation/consciousness: patient oriented x3 GI Other: soft, nontender, nondistended clean wound, granulation tissue present, no purulent drainage noted, no surrounding erythema, measures 0.8x0.4x1.5cm, superficially open up to 1.8cm but much smaller than previous visit Neuro General: patient oriented x3 Assessment & Plan Assessment & Plan (1) Wound dehiscence: Code(s): T81.30XA - Disruption of wound, unspecified, initial encounter Category: Medical (2) Gastric band malfunction: Code(s): K95.09 - Other complications of gastric band procedure Category: Medical Plan Continues dressing changes of 1/2 inch packing, moistened with normal saline, every other day. Cover with dry clean dressing. She may shower right before dressing changes. No additional abx necessary. Status post band removal. Encouraged pt to ensure she follows meal plan of Celebrate Rebuild, 2 scoops, x3 shakes per day. Small meal with 7 forks of protein and 7 forks of vegetables. Reiterated the importance of good nutrition for healing and recovery. RTC 2-3 weeks.
[2024-05-21 11:34] VITALS: BP 136/79; PULSE 103; TEMP 35.8; O2SAT 95; BMI 34.3
== END 2024-05-21 12:06 | disposition home or self-care (01) ==
LOC: HO.HBS 11:24
PROVIDERS: PCP Internal Medicine; Visit Provider Physician Assistant Surgical
DX: T81.30XA Disruption of wound, unspecified, initial encounter (principal); K95.09 Other complications of gastric band procedure
CPT/HCPCS: 99214; G2211

== ENCOUNTER → 2024-05-21 11:23 | Outpatient (BNVA) | payer OTHER, SELFPAY | PROVIDERS: PCP Internal Medicine; Visit Provider Physician Assistant Surgical | DX: K95.09 Other complications of gastric band procedure (principal); T81.30XD Disruption of wound, unspecified, subsequent encounter; X58.XXXD Exposure to other specified factors, subsequent encounter; Z98.890 Other specified postprocedural states | CPT/HCPCS: 99212 ==

== ENCOUNTER 2024-06-19 12:22 | Outpatient (AMB) | payer OTHER, SELFPAY ==
--- NOTE | 2024-06-19 12:27 | MHC.OFFVISWM ---
VS Expanded 06/19/24 12:37 BP 161/86 H Blood Pressure Location Lt brachial Blood Pressure Position Sitting Pulse 104 H Pulse Source Pulse Oximeter Pulse Oximetry 94 Height 5 ft Weight 173 lb 12.8 oz BMI 33.9 Body Fat % 45.4 Body Fat Mass 79.0 Fat Free Mass 94.8 Visceral Fat Rating 14.0 Body Water % 38.5 Body Water Mass 66.8 Muscle Mass/Score 90.0 Basal Metabolic Rate/Score 1,332 Intake Visit Reasons: OV) PO Gastric Band Removal 03/13/24 Biochemist Required: No Allergies aspirin [ASPIRIN] Allergy (Intermediate, Verified 06/19/24 12:35) GI UPSET, stomach pain latex [LATEX] Allergy (Intermediate, Verified 06/19/24 12:35) HIVES HPI Comments Details: 73-year-old female status post gastric band removal on 03/13/2024. She presented to the hospital on 04/23/2024 with an abdominal rash. She was found to have septic shock with hypotension requiring IV vancomycin, Zosyn, clindamycin as well as pressors. She remained in the hospital for 3 days, discharged home on 04/26/2024, ultimately being discharged home on Augmentin and doxycycline for 5 days. Of note, she was found to have incisional dehiscence at the site of her gastric port. There was concern of possible abscess there but inspection at the time of presentation in the emergency room showed no evidence of purulent material or fluctuance within the wound itself. This was explored by Dr. Granados bedside in the emergency department. Since then, she has been using half inch packing moistened with saline, changed every other day. Denies fevers at home. No complaints of pain. Reports blood sugars well controlled. Overall feeling well. Current meal plan: Celebrate rebuild, 2 scoops, x3 shakes per day. She may also have a small meal with 7 forks of protein and 7 forks of vegetables. [facility] Medical History Peripheral vascular disease Supplemental oxygen dependent GERD (gastroesophageal reflux disease) CASSANDRA (obstructive sleep apnea) Hypoglycemia associated with type 2 diabetes mellitus COPD exacerbation C. difficile enteritis COVID-19 DVT (deep venous thrombosis) Pulmonary hypertension Pulmonary emboli Acute on chronic respiratory failure with hypoxia and hypercapnia Chronic respiratory failure [place] (hard of hearing) PONV (postoperative nausea and vomiting) Post herpetic neuralgia Pneumonia Back pain Morbid obesity Chest crackles Cardiomegaly Asthma-COPD overlap syndrome Acute respiratory failure Hyperlipidemia Hypertension Diabetes Arnold-Chiari malformation Arthritis Fibromyalgia Cough CASSANDRA treated with BiPAP Asthma Sinusitis Surgical History Hx of eye surgery History of esophagogastroduodenoscopy (EGD) H/O colonoscopy Hx of laparoscopic gastric banding (~2009) H/O bilateral breast reduction surgery H/O brain surgery Family History Mother HTN (hypertension) Breast cancer Father Primary cancer of bone marrow Social History Household Members: Family Household Members Other:: granddaughter Housing: Apartment Are you a primary animal care provider to a significant other at home: No Do you presently have visiting nurse or other home services: 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) Unable to assess alcohol history related to: Unable to respond Alcohol intake: unknown Patient Tobacco Use Status: Former Tobacco user Tobacco use type: Cigarette Years Smoked: 15 +/- e-Cigarette/Vaping Use: Never Used Second Hand Smoke Exposure: No Advance Directives Date on File: 11/11/21 service: No Physical Exam Const General: cooperative, comfortable and no acute distress Orientation/consciousness: patient oriented x3 GI Other: soft, nontender, nondistended clean wound, no purulent drainage noted, no surrounding erythema, measures 0.3x0.2x1cm, smaller than previous visit Neuro General: patient oriented x3 Assessment & Plan Assessment & Plan (1) Wound dehiscence: Code(s): T81.30XA - Disruption of wound, unspecified, initial encounter Category: Medical (2) Gastric band malfunction: Code(s): K95.09 - Other complications of gastric band procedure Category: Medical Plan Continues dressing changes of 1/2 inch packing, moistened with normal saline, every other day. Cover with dry clean dressing. She may shower right before dressing changes. No additional abx necessary. Status post band removal. Encouraged pt to ensure she follows meal plan of Celebrate Rebuild, 2 scoops, x3 shakes per day. Small meal with 7 forks of protein and 7 forks of vegetables. Reiterated the importance of good nutrition for healing and recovery. She is doing well with weight loss and has lost about 10lbs in 6w as measured by our scale. RTC 6 weeks after she returns from vacation.
[2024-06-19 12:37] VITALS: BP 161/86; PULSE 104; O2SAT 94; BMI 33.9
--- OUTSIDE RECORDS SUMMARY | 2024-06-19 14:40 | XMS_ITS | Data Portability ---
Author Organization [employer] Address [address] [place] [phone] Care Team Providers Care Buyer Intern Name Role Phone [facility] Referring Provider Assessment Encounter Date Assessment Date Assessment LastModified by Organization Details LastModified Time 04/25/2023 04/25/2023 I have reviewed and agree with the assessment and plan as documented by the chemical checker. I provided real-time medical direction for this [...] doxycycline hyclate 100 mg tablet 2023 024 [id number], [address], [place], [phone], 17:02:53 Patient TargetsNo targets recorded. Patient InstructionsNo instructions recorded. Reason for Referral None Reported. Medical Equipment None Reported. Allergies Allergen ID Allergen Name Allergen Category Reaction Reaction Severity Criticality Documentation Date Start Date Code Code System Note Provider Name and Address Organization Details Recorded Time 3257 latex environme nt,medica tion Not available Not available Not available 01/02/2024 74733 91 [facility]Norm Not Available [facility] 03:47:12 8847 Product containin g penicilli n (product) medicatio n Not available Not available Not available 01/02/2024 24088 8001 SNOMED Not Available [facility] 03:47:12 Medications Name Sig [...] Available Not Available Not Available Dexcom G6 Radiology Interventional Physician USE DIRECTED active Not Available Not Available [...] % 98 % 2 L/min 16 /min 98743.4 g 97.2 [degF] 73 /min 152.4 cm [...] Note Elizabeth Phelps MD Main - [facility] [address] [place] [phone] 04/25/2023 16:58:36 04/26/2023 13:01:34 Acute exacerbation of chronic obstructive pulmonary disease 051413974 J44.1 Health Concerns Section Related Observation LastModified by Organization Detai ls LastModified Time None Recorded Concern Status LastModified by Organization Details LastModified Time None Recorded Advance Directives Directive None Recorded Payers Encounter Date Sequence Insurance Name Policy Number Policy Blackwood Covered Member ID Blackwood Member ID Guarantor Name 04/25/[address] [facility] - DOS ON OR AFTER 2022 - DUAL ELIGIBLE - LONG TERM OPTIONS AND ONE CARE (MEDICARE REPLACEMENT/ADV ANTAGE - HMO) Madeleine Ledezma [id number] Madeleine Ledezma Notes Date Note Type Note [...] .................. .................. .................. .................. .................. .................. ............... Strand And Binder Controller Note From Cory Pierce: Pt reports three [...] .................. ............... Disposition: Netta Phelps MD [address] [facility],[address], [place], [phone], [place] - [employer] 04/25/2023 17:52:09 OBGyn Episode No OBEpisode recorded.
== END 2024-06-19 13:05 | disposition home or self-care (01) ==
LOC: HO.HBS 12:23
PROVIDERS: PCP Internal Medicine; Visit Provider Physician Assistant Surgical
DX: T81.30XA Disruption of wound, unspecified, initial encounter (principal); K95.09 Other complications of gastric band procedure
CPT/HCPCS: 99214; G2211

== ENCOUNTER → 2024-06-19 12:22 | Outpatient (BNVA) | payer OTHER, SELFPAY | PROVIDERS: PCP Internal Medicine; Visit Provider Physician Assistant Surgical | DX: K95.09 Other complications of gastric band procedure (principal); T81.30XA Disruption of wound, unspecified, initial encounter; X58.XXXA Exposure to other specified factors, initial encounter; Y93.9 Activity, unspecified; Y92.9 Unspecified place or not applicable; Y99.9 Unspecified external cause status | CPT/HCPCS: 99212 ==

== ENCOUNTER 2024-08-05 14:36 | Outpatient (REF) | payer OTHER, SELFPAY ==
--- NOTE | ~2024-08-05 | US_ITS ---
EXAMINATION: US TRIPLEX LOWER EXTREMITY, BILATERAL CLINICAL INFORMATION: Lower extremity swelling/edema COMPARISON: None available. TECHNIQUE: Color-flow triplex imaging with spectral analysis and compression Doppler were performed on the bilateral lower extremities. FINDINGS: Respiratory variation, normal compression and augmented flow are noted throughout the bilateral lower extremities. The visualized common femoral vein, superficial femoral vein, profunda femoral vein, popliteal vein and midcalf peroneal and posterior tibial venous segments show no evidence of deep venous thrombosis bilaterally. US/US venous duplex LE BI IMPRESSION: No evidence of deep or superficial venous thrombosis involving the bilateral lower extremities. Electronically signed by: Shahram Larios MD 08/05/2024 03:18 PM EDT
--- OUTSIDE RECORDS SUMMARY | 2024-08-05 15:52 | XMS_ITS | Data Portability ---
Author Organization [employer] Address [address] [place] [phone] Care Team Providers Care Tool Drawing Checker Name Role Phone [facility] Referring Provider [phone] Assessment Encounter Date Assessment Date Assessment LastModified by Organization Details LastModified Time 04/25/2023 04/25/2023 I have reviewed and agree with the assessment and plan as documented by the clinique counter manager. I provided real-time medical direction for this [...] doxycycline hyclate 100 mg tablet 2023 024 [id number], [address], [place], [phone], 17:02:53 Patient TargetsNo targets recorded. Patient InstructionsNo instructions recorded. Reason for Referral None Reported. Medical Equipment None Reported. Allergies Allergen ID Allergen Name Allergen Category Reaction Reaction Severity Criticality Documentation Date Start Date Code Code System Note Provider Name and Address Organization Details Recorded Time 0688 latex environme nt,medica tion Not available Not available Not available 01/02/2024 84939 91 RxNorm Not Available [facility] 03:47:12 8847 Product containin g penicilli n (product) medicatio n Not available Not available Not available 01/02/2024 93651 8001 SNOMED Not Available [facility] 03:47:12 Medications Name [...] Available Not Available Not Available Dexcom G6 Shank Taper USE DIRECTED active Not Available Not Available [...] % 98 % 2 L/min 16 /min 40250.4 g 97.2 [degF] 73 /min 152.4 cm [...] Note Elizabeth Phelps MD Main - [facility] [address] [place] [phone] 04/25/2023 16:58:36 04/26/2023 13:01:34 Acute exacerbation of chronic obstructive pulmonary disease [id number] J44.1 Health Concerns Section Related Observation LastModified by Organization Detai ls LastModified Time None Recorded Concern Status LastModified by Organization Details LastModified Time None Recorded Advance Directives Directive None Recorded Payers Insurance Date Sequence Insurance Name Policy Number Policy Blackwood Covered Member ID Blackwood Member ID Guarantor Name 04/25/2023 1 [facility] [employer] - DOS PRIOR TO 2022 - DUAL ELIGIBLE (MEDICARE REPLACEMENT/ADV ANTAGE - HMO) Madeleine Ledezma [id number] Madeleine Ledezma 04/25/2023 1 [facility] [employer] - DOS ON OR AFTER 2022 - DUAL ELIGIBLE - LONGTERM OPTIONS AND ONE CARE (MEDICARE REPLACEMENT/ADV ANTAGE - HMO) Madeleine Ledezma [id number] Madeleine Ledezma Notes Date Note Type Note [...] .................. .................. .................. .................. .................. .................. ............... Hydrogeologist Note From Cory Pierce: Pt reports three [...] .................. .................. .................. .................. .................. ............... Disposition: Fulfilled Elizabeth Phelps MD [address] [facility],[address], [place], [phone], JOSELIN GODINEZ 04/25/2023 17:52:09 OBGyn Episode No OBEpisode recorded.
== END 2024-08-05 14:37 | disposition home or self-care (01) ==
LOC: HO.US 14:36
PROVIDERS: PCP Internal Medicine; Visit Provider Internal Medicine
DX: I10 Essential (primary) hypertension (principal); R60.0 Localized edema
CPT/HCPCS: 93970

== ENCOUNTER → 2024-08-05 14:54 | Outpatient (BNV) | payer OTHER, SELFPAY | PROVIDERS: PCP Internal Medicine; Visit Provider Radiology Diagnostic Radiology | DX: R22.41 Localized swelling, mass and lump, right lower limb (principal); R22.42 Localized swelling, mass and lump, left lower limb | CPT/HCPCS: 93970 ==

== ENCOUNTER 2024-08-06 12:54 | Outpatient (AMB) | payer OTHER, SELFPAY ==
--- NOTE | 2024-08-06 13:03 | A.OFFVIS_ITS ---
VS Expanded 08/06/24 13:13 BP 147/67 H Blood Pressure Location Rt brachial Blood Pressure Position Sitting Pulse 107 H Pulse Source Pulse Oximeter Temp 95.6 F L Temperature Source Temporal Artery Scan Pulse Oximetry 95 Oxygen Delivery Method Room Air Height 5 ft Weight 175 lb BMI 34.2 Body Fat % 44.4 Body Fat Mass 77.6 Fat Free Mass 97.2 Visceral Fat Rating 14.0 Body Water % 39.1 Body Water Mass 68.4 Muscle Mass/Score 92.4 Basal Metabolic Rate/Score 1,358 Intake Visit Reasons: (OV) PO GASTRIC BAND REMOVAL Allergies aspirin [ASPIRIN] Allergy (Intermediate, Verified 06/19/24 12:35) GI UPSET, stomach pain latex [LATEX] Allergy (Intermediate, Verified 06/19/24 12:35) HIVES Medication List - Last Reconciled 08/06/24 by KULWANT Mccrary acetaminophen (Tylenol Extra Strength) 650 mg PO Q6H PRN acetone (urine) test (Ketostix strips) prn tid glucose over 250, illness, nausea, vomiting albuterol sulfate 2.5 mg inhalation Q4H PRN albuterol sulfate 90 mcg/actuation 2 puffs PO QID PRN 90 days ammonium lactate 12% 1 appl topical DAILY aripiprazole 7.5 mg PO DAILY atorvastatin 40 mg PO DAILY azelastine 1 spray intranasal BEDTIME PRN blood sugar diagnostic (FreeStyle Lite Strips) As directed prn qid sensor failure, confirm glucose blood-glucose meter (FreeStyle Lite Meter kit) As directed blood-glucose sensor (Dexcom G7 Sensor device) APPLY DIRECTED AND CHANGE EVERY 10 DAYS (BULK) blood-glucose,fiber machine tender,cont (Dexcom G7 Curriculum Developer) As directed bolus insulin pump, 200 unit (CeQur Simplicity) obgnizhcox-mwdbljxk-ggdhyxhjco 160-9-4.8 mcg/actuation (Breztri Aerosphere) 2 inhalations inhalation BID buspirone 30 mg PO BID clonazepam 0.5 mg PO BID PRN [diabetic shoes extra depth orthopedic shoes ( 1 pair ) with customize heat molded multi density inner soles ( 3 pair) Dispense 1 Sig: As directed DX: And IDDM /polyneuropathy ( E11 0.42 ); hammertoe foot deformity ( M 20.41, and 20.42 ) pre ulcerative skin lesion ( L 85.1 ) Diagnosis ( E11 0.42 ) type 2 diabetes with polyneuropathy] diabetic supplies, miscellan. (CeQur Simplicity Professor Of Education) As directed for use with cequr insulin patch donepezil 5 mg PO BEDTIME duloxetine 60 mg PO DAILY fluticasone propionate 50 mcg/actuation 2 sprays intranasal DAILY gabapentin 300 mg PO BEDTIME 30 days glucagon 3 mg/actuation (Baqsimi) 3 mg intranasal ONCE PRN 30 days MDD may repeat in 15 min Humalog KwikPen Insulin (insulin lispro) 2-6 units tid with meals as needed subcutaneously use as directed; 30 days MDD 18 NS insulin glargine 8 units (0.08 mL) subcut QPM 90 days insulin syringe-needle U-100 (BD Insulin Syringe Ultra-Fine) qid for insulin administration lancets (FreeStyle Lancets) 4 times a day prn sensor failure or to confirm glucose lancets (FreeStyle Lancets) As directed checks 4 times a day lidocaine 5% (Lidoderm) 1 patch topical DAILY PRN lisinopril mg PO DAILY magnesium oxide (MagOx) 400 mg PO BID melatonin 10 mg PO BEDTIME PRN metformin 1,000 mg PO BID montelukast 10 mg PO DAILY 90 days nebulizers As directed nystatin (Nystop) 1 appl topical BID-TID PRN nystatin 1 mL PO BID Oxygen Home Use As directed pantoprazole 40 mg PO DAILY@0630 pen needle, diabetic (BD Ultra-Fine Short Pen Needle) DIRECTED TO INJECT FOUR TIMES DAILY pen needle, diabetic qid tirzepatide (Mounjaro) 5 mg (0.5 mL) subcut QWEEK 30 days tramadol 50 mg PO QID PRN vibegron (Gemtesa) 75 mg PO DAILY walker As directed zolpidem 10 mg PO BEDTIME PRN HPI Comments Details: 73-year-old female status post gastric band removal on 03/13/2024. She presented to the hospital on 04/23/2024 with an abdominal rash. She was found to have septic shock with hypotension requiring IV vancomycin, Zosyn, clindamycin as well as pressors. She remained in the hospital for 3 days, discharged home on 04/26/2024, ultimately being discharged home on Augmentin and doxycycline for 5 days. Of note, she was found to have incisional dehiscence at the site of her gastric port. There was concern of possible abscess there but inspection at the time of presentation in the emergency room showed no evidence of purulent material or fluctuance within the wound itself. This was explored by Dr. Granados bedside in the emergency department. Since then, she has been using half inch packing moistened with saline, changed every other day. Denies fevers at home. No complaints of pain. Reports blood sugars well controlled. Overall feeling well. Current meal plan: Celebrate rebuild, 2 scoops, x3 shakes per day. She may also have a small meal with 7 forks of protein and 7 forks of vegetables. [facility] Medical History (Updated 08/06/24 @ 13:29 by KULWANT Mccrary) Peripheral vascular disease Supplemental oxygen dependent GERD (gastroesophageal reflux disease) CASSANDRA (obstructive sleep apnea) Hypoglycemia associated with type 2 diabetes mellitus COPD exacerbation C. difficile enteritis COVID-19 DVT (deep venous thrombosis) Pulmonary hypertension Pulmonary emboli Acute on chronic respiratory failure with hypoxia and hypercapnia Chronic respiratory failure [place] (hard of hearing) PONV (postoperative nausea and vomiting) Post herpetic neuralgia Pneumonia Back pain Morbid obesity Chest crackles Cardiomegaly Asthma-COPD overlap syndrome Acute respiratory failure Hyperlipidemia Hypertension Diabetes Arnold-Chiari malformation Arthritis Fibromyalgia Cough CASSANDRA treated with BiPAP Asthma Sinusitis Surgical History (Updated 08/06/24 @ 13:11 by Kailey Steele CMA) History of removal of laparoscopic gastric banding device Hx of eye surgery History of esophagogastroduodenoscopy (EGD) H/O colonoscopy Hx of laparoscopic gastric banding (~2009) H/O bilateral breast reduction surgery H/O brain surgery Family History Mother HTN (hypertension) Breast cancer Father Primary cancer of bone marrow Social History Household Members: Family Household Members Other:: granddaughter Housing: Apartment Are you a primary long term care social worker to a significant other at home: No Do you presently have visiting nurse or other home services: 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 (POLICE SERGEANT) Unable to assess alcohol history related to: Unable to respond Alcohol intake: unknown Patient Tobacco Use Status: Former Tobacco user Tobacco use type: Cigarette Years Smoked: 15 +/- e-Cigarette/Vaping Use: Never Used Second Hand Smoke Exposure: No Advance Directives Date on File: 11/11/21 service: No Physical Exam Const General: cooperative, comfortable and no acute distress Orientation/consciousness: patient oriented x3 GI Other: soft, nontender, nondistended wound is healed, no purulent drainage noted, no surrounding erythema, skin is indented and dry at the site but no open areas Neuro General: patient oriented x3 Assessment & Plan Assessment & Plan (1) Wound dehiscence: Code(s): T81.30XA - Disruption of wound, unspecified, initial encounter Category: Medical (2) Gastric band malfunction: Code(s): K95.09 - Other complications of gastric band procedure Category: Medical (3) Obesity: Code(s): E66.9 - Obesity, unspecified Category: Medical Plan Status post band removal. Encouraged pt to ensure she follows meal plan of Celebrate Rebuild, 2 scoops, x3 shakes per day (10a-12p, 2-4p, 8-10p with dinner at 6p). Small meal with 7 forks of protein and 7 forks of vegetables. Reiterated the importance of good nutrition for healing and recovery. She is doing well with weight loss. On Mounjaro. Not interested in any further surgery- I'm too old . Would like to continue with [facility]. Gave healthy foods handout, discussed options for low glycemic fruits. RTC 3 months.
[2024-08-06 13:13] VITALS: BP 147/67; PULSE 107; TEMP 35.3; O2SAT 95; BMI 34.2
== END 2024-08-06 13:29 | disposition home or self-care (01) ==
LOC: HO.HBS 12:55
PROVIDERS: PCP Internal Medicine; Visit Provider Physician Assistant Surgical
DX: T81.30XA Disruption of wound, unspecified, initial encounter (principal); K95.09 Other complications of gastric band procedure; E66.9 Obesity, unspecified
CPT/HCPCS: 99214; G2211

== ENCOUNTER → 2024-08-06 12:54 | Outpatient (BNVA) | payer OTHER, SELFPAY | PROVIDERS: PCP Internal Medicine; Visit Provider Physician Assistant Surgical | DX: K95.09 Other complications of gastric band procedure (principal); E66.9 Obesity, unspecified; T81.30XA Disruption of wound, unspecified, initial encounter; X58.XXXA Exposure to other specified factors, initial encounter; Y93.9 Activity, unspecified; Y92.9 Unspecified place or not applicable; Y99.9 Unspecified external cause status; Z68.34 Body mass index [BMI] 34.0-34.9, adult | CPT/HCPCS: 99212 ==

== ENCOUNTER 2024-08-20 12:47 | Outpatient (AMB) | payer OTHER, SELFPAY ==
--- NOTE | 2024-08-20 09:13 | A.OFFVIS_ITS ---
Vital Signs 08/20/24 12:51 Height 5 ft Weight 176 lb 5.917 oz BMI 34.4 BP 132/78 Blood Pressure Location Rt brachial Position Sitting Pulse 96 Pulse Source Pulse Oximeter Pulse Oximetry (%) 100 Oxygen Delivery Method Room Air Intake Visit Reasons: DM Intake Note: Patient presents today for a follow-up on Type 2 Diabetes Mellitus: Last Diabetic eye exam was on: DUE Last Podiatry exam was on: Does not see a Mechatronics Technician Most recent HbA1c: 6.4%, 08/20/2024 Random Glucose- 146 mg/dL, Today Nickel Plant Operator Required: No Accompanied by: BUTTON BREAKER OPERATOR Allergies aspirin (ASPIRIN) Allergy (Intermediate, Verified 06/19/24 12:35) GI UPSET, stomach pain latex (LATEX) Allergy (Intermediate, Verified 06/19/24 12:35) HIVES HPI Comments Details: 73 year old who is seen in f/u for type 2 diabetes. She was last seen by myself . She was started on an islet insulin pump 2023 and had been doing well with exception of a low glucose during the first week of pump therapy. She had a hypoglycemic episode to 40 associated with nausea, vomiting and hypothermia 01/05/24 and insulin pump was discontinued in the hospital and she was placed on Lantus insulin and a decision was made to keep her off pump therapy. She has acid reflux which has not increased since starting Mounjaro Had issue with lap band earlier in 2024 which was removed earlier this year complicated by wound infection which has resolved. Initially diagnosed with T2DM in >10 yrs . Saw allyson in the nast Dr. Lyons at [facility] Was initially started on treatment with metformin. Stopped because she couldn't swallow the pills Current medications: Lantus 8 units takes once every two weeks Novolog uses just once or twice per week 100-150 2 units 151-200 4 units over 200 6 units Mounjaro 5.0mg weekly Metformin 1000 mg twice daily Dexcom average glucose: 120 14 day continuous glucose monitor report reviewed Glucose Managment indicator 6.2 % Days with CGM data 93 % TIme in ranges: 0 % very high (above 250) 5 % high ?(181-250) 95 % in range ?(70-180] 0 % low (69-55) 0 % ?very low (below 54) 21 Standard Deviation Interpretation well-controlled diabetes without hypoglycemia She reports low appetite on Mounjaro. She eats a small breakfast and very small supper with nothing in between. Supper is typically chicken the size of a pack a carbs with a couple bites of vegetables. She is not feel able to eat anymore. Treats lows with eats sugar. Checks sugar after to ensure it is rising. Treats according to rule of 15's. Has a glucagon rescue kit at home . Family history of T2DM in maternal grandmother, cousins , aunt, sister . Has Retinopathy: Has eyes checked yearly, last eye exam 07/27 Has neuropathy, does not see podiatry. Symptoms include: Numbness and tingling. Patient is on gabapentin Denies nephropathy, on OSITO/ARB eGFR>60 08/27/2022 microalbumin 11.0 Has HLD, on statin. Last LDL 77 2022 Denies CAD. Has seen Lissy Mackey [facility] Medical History Peripheral vascular disease Supplemental oxygen dependent GERD (gastroesophageal reflux disease) CASSANDRA (obstructive sleep apnea) Hypoglycemia associated with type 2 diabetes mellitus COPD exacerbation C. difficile enteritis COVID-19 DVT (deep venous thrombosis) Pulmonary hypertension Pulmonary emboli Acute on chronic respiratory failure with hypoxia and hypercapnia Chronic respiratory failure [place] (hard of hearing) PONV (postoperative nausea and vomiting) Post herpetic neuralgia Pneumonia Back pain Morbid obesity Chest crackles Cardiomegaly Asthma-COPD overlap syndrome Acute respiratory failure Hyperlipidemia Hypertension Diabetes Arnold-Chiari malformation Arthritis Fibromyalgia Cough CASSANDRA treated with BiPAP Asthma Sinusitis Surgical History History of removal of laparoscopic gastric banding device Hx of eye surgery History of esophagogastroduodenoscopy (EGD) H/O colonoscopy Hx of laparoscopic gastric banding (~2009) H/O bilateral breast reduction surgery H/O brain surgery Family History Mother HTN (hypertension) Breast cancer Father Primary cancer of bone marrow Social History Household Members: Family Household Members Other:: granddaughter Housing: Apartment Are you a primary acute care nurse to a significant other at home: No Do you presently have visiting nurse or other home services: Yes (BUTTON BREAKER OPERATOR) Unable to assess alcohol history related to: Unable to respond Alcohol intake: unknown Patient Tobacco Use Status: Former Tobacco user Tobacco use type: Cigarette Years Smoked: 15 +/- e-Cigarette/Vaping Use: Never Used Second Hand Smoke Exposure: No Advance Directives Date on File: 11/11/21 service: No Physical Exam Vital Signs: Last Vital Signs Pulse 96 08/20/24 12:51 BP 132/78 08/20/24 12:51 Pulse Ox 100 08/20/24 12:51 Oxygen Delivery Method Room Air 08/20/24 12:51 BMI result Body Mass Index 34.4 Const Other: Absence of Cushingoid features. Absence of acromegalic features. Neck exam reveals nl size thyroid about 15 gms. No thyroid nodules palpable. Heart S1 S2, Reg R/R. No M/R G. Skin exam reveals absence of vitiligo or acanthosis nig ricans. Skin on an abdomen reveals no signs and symptoms of infection. No edema Visual exam of foot performed. No ulcerations or open lesions. No inter digit maceration or fissuring. No onychomycosis, no callouses. Sensation intact to monofilament exam. Vibratory sensation is normal with 128 Hz tuning fork. Results AMB Hemoglobin A1c AMB Hemoglobin A1c 6.4 % Last Edit by WAQAR Roland on 08/20/24 13:07 Results Reviewed Results Reviewed: Laboratory Last Values Glucose (Clinic) 146 mg/dL (60-115) H 08/20/24 12:57 Hgb A1c (Clinic) 6.4 % (4.0-6.0) H 08/20/24 13:00 Assessment & Plan Assessment & Plan (1) Diabetes: Code(s): E11.9 - Type 2 diabetes mellitus without complications Category: Medical Qualifiers: Diabetes mellitus type: type 2 Diabetes mellitus intermediate school teacher insulin use: with intermediate school teacher use Diabetes mellitus complication status: with hypoglycemia Plan Well controlled diabetes. Using Lantus insulin approximately every other week if her sugars increase same with her sliding scale NovoLog. Would recommend changing Mounjaro to 2.5 mg as she feels really unable to eat on the 5 mg dosing in his not meeting her nutritional requirements. Continue metformin 1000 mg b.i.d.. The patient had an opportunity to ask questions regarding treatment plan. The patient expressed understanding and agreement with the above treatment plan. The patient is aware they should contact our office by phone for worsening glucose readings or for any low blood sugars which may warrant a change in diabetes medication. Compliance is encouraged with medications and any followup testing/consults which may have been ordered. Orders: Orders AMB Hemoglobin A1c 08/20/24 E11.9 - Type 2 diabetes mellitus without complications Medications: New Mounjaro (tirzepatide) 2.5 mg (0.5 mL) subcut QWEEK 2 mL 6RF 4 weeks NS Discontinued tirzepatide (Mounjaro) Discontinued Reason: Doctor's Order 5 mg (0.5 mL) subcut QWEEK 30 days 2.5 mL 2RF Patient Instructions: Carry a sugar source at all times Check your feet daily looking for any signs of infection, drainage, redness, ulceration and seek medical attention if this occurs. Break in shoes gradually and do not wear open-toed shoes or walk stocking footed or barefooted. Coding Level of Care Code Est Pt Level 4 (50100) Complex EM visit Add On G2211 Diagnoses Diabetes E11.9 Diabetes mellitus type: type 2 Diabetes mellitus intermediate insulin use: with intermediate school teacher use Diabetes mellitus complication status: with hypoglycemia
[2024-08-20 12:51] VITALS: BP 132/78; PULSE 96; O2SAT 100; BMI 34.4
[2024-08-20 13:02] LABS: Glucose, Whole Blood 146 mg/dL (60-115)
--- OUTSIDE RECORDS SUMMARY | 2024-08-20 14:30 | XMS_ITS | Data Portability ---
Author Organization [employer], [facility] Address [address] [place] [address] Care Team Providers Care Home Theater Expert Name Role Phone [facility] Referring Provider [phone] Assessment Encounter Date Assessment Date Assessment LastModified by Organization Details LastModified Time 04/25/2023 04/25/2023 I have reviewed and agree with the assessment and plan as documented by the field installer. I provided real-time medical direction for this [...] doxycycline hyclate 100 mg tablet 2023 024 [id number], [address], [place], [phone], 17:02:53 Patient TargetsNo targets recorded. Patient InstructionsNo instructions recorded. Reason for Referral None Reported. Medical Equipment None Reported. Allergies Allergen ID Allergen Name Allergen Category Reaction Reaction Severity Criticality Documentation Date Start Date Code Code System Note Provider Name and Address Organization Details Recorded Time 9885 latex environme nt,medica tion Not available Not available Not available 01/02/2024 77820 91 RxNorm Not Available [facility] - production 4 03:47:12 8847 Product containin g penicilli n (product) medicatio n Not available Not available Not available 01/02/2024 17417 8001 SNOMED Not Available [facility] - production 4 03:47:12 Medications Name Sig [...] Not Available Not Available N ot Available Lant Solostar U-100 Insulin 100 unit/mL (3 mL) [...] Available Not Available Not Available Dexcom G6 Triage Register Nurse USE DIRECTED active Not Available Not Available [...] % 98 % 2 L/min 16 /min 99761.4 g 97.2 [degF] 73 /min 152.4 cm [...] Note Elizabeth Phelps MD Main - [facility] [address] [place] [phone] 04/25/2023 16:58:36 04/26/2023 13:01:34 Acute exacerbation of chronic obstructive pulmonary disease 737570808 J44.1 Health Concerns Section Related Observation LastModified by Organization Detai ls LastModified Time None Recorded Concern Status LastModified by Organization Details LastModified Time None Recorded Advance Directives Directive None Recorded Payers Insurance Date Sequence Insurance Name Policy Number Policy Blackwood Covered Member ID Blackwood Member ID Guarantor Name 04/25/2023 1 [facility] [employer] - DOS PRIOR TO 2022 - DUAL ELIGIBLE (MEDICARE REPLACEMENT/ADV ANTAGE - HMO) Madeleine Ledezma [id number] Madeleine Ledezma 04/25/2023 1 [facility] [employer] - DOS ON OR AFTER 2022 - DUAL ELIGIBLE - FCI OPTIONS AND ONE CARE (MEDICARE REPLACEMENT/ADV ANTAGE - HMO) Madeleine Ledezma [id number] Madeleine Ledezma Notes Date Note Type Note [...] .................. .................. .................. .................. .................. .................. ............... Assisted Living Administrator Note From Cory Pierce: Pt reports three [...] .................. .................. ............... Disposition: Netta Phelps MD [address] [place] [address],[address] [facility], [place], [address], [place] - Extreme RealityJOSELIN 04/25/2023 17:52:09 OBGyn Episode No OBEpisode recorded.
== END 2024-08-20 13:35 | disposition home or self-care (01) ==
LOC: HO.ENCR 12:47
PROVIDERS: PCP Internal Medicine; Visit Provider Nurse Practitioner Adult Health
DX: E11.9 Type 2 diabetes mellitus without complications (principal)

== ENCOUNTER → 2024-08-20 12:47 | Outpatient (BNVA) | payer OTHER, SELFPAY | PROVIDERS: PCP Internal Medicine; Visit Provider Nurse Practitioner Adult Health | DX: E11.9 Type 2 diabetes mellitus without complications (principal) | CPT/HCPCS: 82947; 83036; 99212 ==

== ENCOUNTER 2024-09-11 12:05 | Outpatient (AMB) | payer OTHER, SELFPAY ==
--- NOTE | 2024-09-11 12:15 | A.OFFVIS_ITS ---
Intake Visit Reasons: follow up after testing Allergies aspirin (ASPIRIN) Allergy (Intermediate, Verified 06/19/24 12:35) GI UPSET, stomach pain latex (LATEX) Allergy (Intermediate, Verified 06/19/24 12:35) HIVES HPI Comments Details: 74yr woman with numbness in hands, especially on the right. Hand feels cold a lot of the time. Walking with cane and walker at home. No pain in feet. Numbness and tingling not changed. Toes burn . She has a three-month history of constant tingling, numbness in both legs that started in the dorsum of the foot and goes up to the mid thigh level along with muscle cramps. She says she was told by her software applications specialist that she had neuropathy 3 years ago when she developed weakness in the right hand which has not changed. Both hands are numb the right being worse than the left. She has some trouble walking and is scheduled for a MRI of the lumbar spine Her sugars not well controlled. A1c 6. FBS 254. She has a ten-year history of diabetes, a 25 years status post partial decompression of Arnold-Chiari malformation by Dr. Salinas, sensory deafness, major depression, fibromyalgia who also has asthma and COPD, sleep apnea? 08/27/2024 nerve conduction EMG study: End-stage right ulnar neuropathy. Sensory motor axonal neuropathy in the upper extremities. 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 Neuropathy of the upper and lower extremities is slightly worse compared to the study of 2022. EMG of the right C5-T1 and right L4-S1 innervated muscles is consistent with chronic distal neuropathic changes [facility] Medical History (Updated 09/11/24 @ 12:30 by Tara Armijo MD) MCI (mild cognitive impairment) Depressed Ulnar neuropathy Diabetic neuropathy Peripheral vascular disease Supplemental oxygen dependent GERD (gastroesophageal reflux disease) CASSANDRA (obstructive sleep apnea) Hypoglycemia associated with type 2 diabetes mellitus COPD exacerbation C. difficile enteritis COVID-19 DVT (deep venous thrombosis) Pulmonary hypertension Pulmonary emboli Acute on chronic respiratory failure with hypoxia and hypercapnia Chronic respiratory failure [place] (hard of hearing) PONV (postoperative nausea and vomiting) Post herpetic neuralgia Pneumonia Back pain Morbid obesity Chest crackles Cardiomegaly Asthma-COPD overlap syndrome Acute respiratory failure Hyperlipidemia Hypertension Diabetes Arnold-Chiari malformation Arthritis Fibromyalgia Cough CASSANDRA treated with BiPAP Asthma Sinusitis Surgical History History of removal of laparoscopic gastric banding device Hx of eye surgery History of esophagogastroduodenoscopy (EGD) H/O colonoscopy Hx of laparoscopic gastric banding (~2009) H/O bilateral breast reduction surgery H/O brain surgery Family History Mother HTN (hypertension) Breast cancer Father Primary cancer of bone marrow Social History Household Members: Family Household Members Other:: granddaughter Housing: Apartment Are you a primary hearing healthcare practitioner to a significant other at home: No Do you presently have visiting nurse or other home services: Yes (REST ROOM MAID) Unable to assess alcohol history related to: Unable to respond Alcohol intake: unknown Patient Tobacco Use Status: Former Tobacco user Tobacco use type: Cigarette Years Smoked: 15 +/- e-Cigarette/Vaping Use: Never Used Second Hand Smoke Exposure: No Advance Directives Date on File: 11/11/21 service: No Review of Systems Const Details: Sleep:? Difficulty getting to sleepadmits.? Difficulty maintaining sleepadmits.? Urge to move legsadmits.? Teeth grindingdenies.? Shouting or Kicking during sleep denies.? Abnormal behavior during sleepdenies.? Excessive sleepdenies.? Snoring admits.? Daytime sleepinessdenies. ???General/Constitutional:? Change in appetitedenies.? Chillsdenies.? Fatigueadmits.? Feverdenies.? Weight gainadmits.? Weight lossdenies. ???Ophthalmologic:? Blurred visionadmits.? Diminished visual acuitydenies. ???ENT:? Stuffinessadmits.? Decreased hearingadmits.? Dry mouthdenies.? Ear paindenies.? Nosebleeddenies.? Ringing in the earsdenies.? Sinus painadmits.? Sore throat denies.? Swollen glandsdenies. ???Endocrine:? Cold intolerancedenies.? Excessive thirstdenies.? Frequent urinationdenies.? Heat intolerancedenies. ???Respiratory:? Shortness of breathadmits.? Chest paindenies.? Coughadmits. ???Breast:? Breast lumpdenies.? Nipple dischargedenies. ???Cardiovascular:? Chest pain at restdenies.? Chest pain with exertiondenies.? Claudicationdenies .? Dizzinessdenies.? Fluid accumulation in the legsdenies.? Irregular heartbeat denies.? Palpitationsdenies. ???Gastrointestinal:? Abdominal paindenies.? Constipationadmits.? Diarrheadenies.? Difficulty swallowingdenies.? Heartburnadmits.? Nauseaadmits.? Rectal bleedingdenies. ???Hematology:? Easy bruisingdenies.? Prolonged bleedingdenies. ???Genitourinary:? Frequent urinationdenies.? Urgencydenies.? Incontinencedenies.? Erectile Dysfunctiondenies. ???Musculoskeletal:? Neck painadmits.? Back painadmits.? Muscle achesadmits.? Painful jointsadmits.? Sciaticadenies.? Weaknessdenies. ???Podiatric:? Difficulty walkingdenies.? Foot numbnessdenies. ???Neurologic:? Difficulty swallowingdenies.? Balance difficultyadmits.? Coordinationnormal.? Difficulty speakingdenies.? Dizzinessdenies.? Faintingdenies.? Gait abnormality admits.? Headachedenies.? Loss of strengthdenies.? Loss of use of extremity denies.? Low back paindenies.? Memory lossadmits.? Seizuresdenies.? Ticsdenies.? Tingling/Numbnessbilateral lower extremities?bilateral upper extremities.? Transient loss of visiondenies.? Tremoradmits. ???Psychiatric:? Anxietyadmits.? Auditory/visual hallucinationsdenies.? Delusionsdenies.? Depressed moodadmits.? Stressorsadmits.? Substance abusedenies.? Suicidal thoughtsadmits. Physical Exam Neuro Other: Neurological: Abnormal neurological findings:??Walks with walker. Areflexia in LE. Distal blunting of pin prick in toes and distal foot. Atrophy of ulnar innervated muscles right hand with weakness of finger spread R>>L..?Mental Status:??alert and oriented X 3,?Normal attention, orientation, memory and affect.?Cranial Nerves:??Pupils are equal, round and reactive to light. Fundoscopy shows normal disc bilaterally. External occular muscles are intact. Visual hernandez are full, no ptosis. Face is symmetrical, no facial weakness or droop. Facial sensations are normal. Tongue protrudes in midline. Palate elevates symmetrically. Shoulder shrugging is normal..?Motor Examination:??Normal muscle tone, bulk and strength,?No atrophy or fasciculations,?No drift of the extended upper extremities,?Deep tendon reflexes are 0+?,?Plantars are flexor?.?Straight Leg Raising:??90 degrees.?Sensory Exam:??Distal blunting of pp and vibration. Rhomberg sign is absent.?Coordination:??no ataxia,?no titubation,?qselgd-wf-szza, ekma-obkn-jygu test and rapid alternating movements were normal.?Gait Exam:??with a walker.?Cerebellar Signs:??Fvojpm-pn-deyv and psaa-oz-zayx is normal,?no dysdiadochokinesia?.?Extrapyramidal System:??moderate amplitude 8 hz tremor of extended UE in the fingers. No rigidity with normal facial expressions,?No bradykinesia, no bradyphrenia. Normal arm swing and posture. No propulsion or retropulsion.?Speech:??Normal,?no dysphasia or dysarthria..? Mini Mental Status Exam: Level of Consciousness:??Alert.?Orientation:??Knows correct year, month, date, day and season,?Knows correct city, county and state. Knows correct location and floor.?Registration:??Able to register 3 objects.?Attention:??Serial 7's performed accurately.?Recall:??Able to recall 3 out of 3 objects.? Language:??Normal spontaneous speech, fluency, repetition,naming, comprehension, reading and writing.?Total Score:??30/30.? General Examination: GENERAL APPEARANCE:??normal,?in no acute distress.?HEAD:??normocephalic,?atraumatic.?EYES:??sclera non- icteric,?conjunctiva clear.?EARS:??auditory canal clear,?tympanic membrane intact, clear.?NOSE:??no lesions.?ORAL CAVITY:??gums normal,?mucosa moist,?no lesions.?THROAT:??clear.?NECK/THYROID:??no cervical lymphadenopathy,?thyroid normal,?neck supple, full range of motion,?no carotid bruit.?SKIN:??no rashes,?no significant birthmarks.?HEART:??S1, S2 normal,?no murmurs.?LUNGS:??clear anteriorly and posteriorly.?CHEST:??no gross rib deformity,?clear to auscultation.?BACK:??normal exam of spine.?EXTREMITIES:??no edema.?PERIPHERAL PULSES:??normal.?PSYCH:??alert, oriented,?cognitive function intact,?cooperative with exam.? Assessment & Plan Assessment & Plan (1) Diabetic neuropathy: Code(s): E11.40 - Type 2 diabetes mellitus with diabetic neuropathy, unspecified Category: Medical (2) MCI (mild cognitive impairment): Code(s): G31.84 - Mild cognitive impairment of uncertain or unknown etiology Category: Medical Plan Continue current meds. Increase Gabapentin for pain control gradually to 900mg a day Medications: Changed From gabapentin 300 mg PO BEDTIME 30 days 30 caps 11RF To gabapentin 300 mg PO TID 90 caps 11RF 30 days Coding Level of Care Code Est Pt Level 4 (99799) Diagnoses Diabetic neuropathy E11.40 MCI (mild cognitive impairment) G31.84
--- OUTSIDE RECORDS SUMMARY | 2024-09-11 13:10 | XMS_ITS | Data Portability ---
Author Organization [employer], [facility] Address [address] [place] [address] Care Team Providers Care Biofuels Operations Manager Name Role Phone [facility] Referring Provider [phone] Assessment Encounter Date Assessment Date Assessment LastModified by Organization Details LastModified Time 04/25/2023 04/25/2023 I have reviewed and agree with the assessment and plan as documented by the guidance secretary. I provided real-time medical direction for this [...] doxycycline hyclate 100 mg tablet 2023 024 [id number], [address], [place], [phone], 17:02:53 Patient TargetsNo targets recorded. Patient InstructionsNo instructions recorded. Reason for Referral None Reported. Medical Equipment None Reported. Allergies Allergen ID Allergen Name Allergen Category Reaction Reaction Severity Criticality Documentation Date Start Date Code Code System Note Provider Name and Address Organization Details Recorded Time 3468 latex environme nt,medica tion Not available Not available Not available 01/02/2024 16308 91 RxNorm Not Available [facility] - production 4 03:47:12 8847 Product containin g penicilli n (product) medicatio n Not available Not available Not available 01/02/2024 58367 8001 SNOMED Not Available [facility] - production [...] Available Not Available Not Available Dexcom G6 Optical Glass Sawyer USE DIRECTED active Not Available Not Available [...] Body temperature Heart rate Body height Systolic And Diastolic Provider Name and Address Organization Details Last Updated DateTime 4 98 % 98 % 2 L/min 16 /min 14358.4 g 97.2 [degF] 73 /min 152.4 cm 101/67 mm[Hg] Not Available [facility] - production 4 [...] Note Elizabeth Phelps MD Main - [facility] [address] [place] [phone] 04/25/2023 16:58:36 04/26/2023 13:01:34 Acute exacerbation of chronic obstructive pulmonary disease [id number] J44.1 Health Concerns Section Related Observation LastModified by Organization Detai ls LastModified Time None Recorded Concern Status LastModified by Organization Details LastModified Time None Recorded Advance Directives Directive None Recorded Payers Insurance Date Sequence Insurance Name Policy Number Policy Blackwood Covered Member ID Blackwood Member ID Guarantor Name 04/25/2023 1 [facility] [employer] - DOS PRIOR TO 2022 - DUAL ELIGIBLE (MEDICARE REPLACEMENT/ADV ANTAGE - HMO) Madeleine Ledezma [id number] Madeleine Ledezma 04/25/2023 1 [facility] [employer] - DOS ON OR AFTER 2022 - DUAL ELIGIBLE - SKILLED NURSING OPTIONS AND ONE CARE (MEDICARE REPLACEMENT/ADV ANTAGE - HMO) Madeleine Ledezma [id number] Madeleine Ledezma Notes Date Note Type Note [...] .................. .................. .................. .................. .................. .................. ............... Professor Of Chemical Engineering Note From Cory Pierce: Pt reports three days of mild CRUZ and cough producing yellow sputum. Pt has COPD, uses nebs q4h, last COPD exacerbation was approx 6 months ago. Pt denies SOB at rest, f/n/v/d. Pt is alert, NAD, speaking full sentences. Afebrile. Non focal neuro exam. Diffuse expiratory wheezing. Benign ABD exam. No LE edema. Rapid covid and flu negative. Pt s sx seem c/w COPD exacerbation. Pt treated with a duoneb, prednisone 60 mg and doxycycline 100 mg. Pt instructed to f/u with PCP and to seek emergent medical care for new or worsening sx, which are reviewed with her. .................. .................. .................. .................. .................. .................. .................. ............... Disposition: Fulfilled Elizabeth Phelps MD [address] [facility],[address], [place], [phone], CHE - JOSELIN LEACH 04/25/2023 17:52:09 OBGyn Episode No OBEpisode recorded.
== END 2024-09-11 12:34 | disposition home or self-care (01) ==
PROVIDERS: PCP Internal Medicine; Referring Provider Internal Medicine; Visit Provider Psychiatry & Neurology Neurology
DX: E11.40 Type 2 diabetes mellitus with diabetic neuropathy, unspecified (principal); G31.84 Mild cognitive impairment of uncertain or unknown etiology
CPT/HCPCS: 99214

== ENCOUNTER → 2024-09-11 12:05 | Outpatient (BNVA) | payer OTHER, SELFPAY | PROVIDERS: PCP Internal Medicine; Referring Provider Internal Medicine; Visit Provider Psychiatry & Neurology Neurology | DX: Z71.2 Person consulting for explanation of examination or test findings (principal); R20.2 Paresthesia of skin; R53.1 Weakness; E11.40 Type 2 diabetes mellitus with diabetic neuropathy, unspecified; G31.84 Mild cognitive impairment of uncertain or unknown etiology; M79.7 Fibromyalgia; J45.909 Unspecified asthma, uncomplicated; J44.9 Chronic obstructive pulmonary disease, unspecified | CPT/HCPCS: 99212 ==

== ENCOUNTER 2024-09-26 14:34 | Outpatient (AMB) | payer OTHER, SELFPAY ==
[2024-09-26 14:42] VITALS: BP 124/64; PULSE 97; O2SAT 97
--- NOTE | 2024-09-26 14:42 | A.OFFVIS_ITS ---
Vital Signs 09/26/24 14:42 Height 5 ft BMI Reason not done Patient refused/unable BP 124/64 Blood Pressure Location Lt radial Position Sitting Pulse 97 Pulse Source Pulse Oximeter Pulse Oximetry (%) 97 Oxygen Delivery Method Room Air Intake Visit Reasons: cassandra [employer] Attorney Required: No Accompanied by: Self / Same As Patient Allergies aspirin (ASPIRIN) Allergy (Intermediate, Verified 09/26/24 14:48) GI UPSET, stomach pain latex (LATEX) Allergy (Intermediate, Verified 09/26/24 14:48) HIVES HPI Comments Details: Pleasant 74-year-old female who is here for follow-up. She has history of asthma COPD overlap syndrome, obstructive sleep apnea, hypertension and hyperlipidemia. She was seen a year ago when she presented after getting a CT scan of her chest for lung assessment which showed concern for cardiomegaly. She has advanced COPD and is supposed to be on oxygen at nighttime and with ambulation. She was complaining of some tachycardia at that time. She also complained that her saturations at times were in 80s and she had to use supplemental oxygen to bring it up. We performed an echocardiogram in May 2021 which showed vigorous LV function with EF of 60-70% without any regional wall motion abnormalities. Normal right ventricular size and function. Right ventricular systolic pressure could not be calculated. June 2022 she got admitted to [facility] with shortness of breath and lower extremity swelling. She was diagnosed with DVT with occlusive thrombus more than 5 cm in length within the paired left peroneal veins. ECHO and CT scan reports were reviewed. Again her RV systolic pressure could not be determined. She had normal biventricular function. She had CT scan of the chest which did not show any central PE but could not rule out subsegmental PE. She was treated as if she had pulmonary emboli and has been on Xarelto since then. She was advised that she should continue it for 3 months. She is returning for follow-up after the hospital admission. She has been taking Xarelto regularly and has no bleeding concerns. She is doing better and is denying any significant chest pain or shortness of breath. She does have palpitations at nighttime which are quite consistent. No palpitations during the daytime. 09/01/2022 the patient is here for a pulmonary follow-up visit. Overall the patient has been doing little better. She is getting stronger and respiratory status is overall better. Yesterday she did get cortisone shot to her back and hands and pain discomfort. She is wondering about a portable oxygen concentrator. We will have to do a 6 minute walk test to see if she qualifies for the conserving device. She cannot do it right now. Wants to hold off till next time. In the meantime the patient did get her noninvasive ventilator for her respiratory failure. Unfortunately it has been hard for her to tolerate it. She did bring it in. I did titrate the pressure is down to see if she can tolerate it easier decreasing both the minimum pressure support and a minimum expiratory pressure. She seemed to tolerate it better. She also has noticed that when she lays flat her oxygen pulse ox decreases at home. Therefore she can increase her oxygen to 3 L while using the noninvasive ventilator will plan to perform an overnight oximetry while on the settings to make sure that she is getting adequate support and further adjustments. I did reach out to Sarah to see if they can further adjust her machine when she is situated. She continue with the current therapy. Also continues with diuresis tolerated. She will continue with the current respiratory diabetes. We will follow up between 4-6 weeks. 10/20/2022 the patient is here for pulmonary follow-up visit. Overall the patient is doing better from a respiratory status. She continues use the oxygen with good effect. She did get the noninvasive ventilator. She has had some difficulty tolerating the therapy. She is trying to use it during the daytime and also at nighttime. I did emphasize to her the importance of it specially since her CO2 is already elevated this will help improve her gas exchange and decreased hospitalizations. The patient is aware she is going to try to use it more often. She continues use her respiratory therapy with good effect. She is also using the oxygen with good effect. In the recent imaging studies of blood work to review. Her major issue is significant neuropathy and muscle weakness. I do believe that she will benefit from pulmonary rehabilitation specially if she continues to lose muscle mass she is going to be at risk for worsening respiratory failure. Therefore I am going to have her undergo PFTs and start pulmonary rehab. In addition to that she will have a neurology evaluation. 03/14/2023 the patient is here for a pulmonary follow-up visit. Overall the patient has been doing overall little better. She does continue to use the oxygen with good effect. She has a hard time with the oxygen tanks. We did try to do a walking oximetry to see if she would qualify for portable oxygen concentrator but she could not tolerate it due to significant heart rate elevations. Therefore will continue with current oxygen supplementation. In addition to that the patient was not able to use the noninvasive ventilator and she returned it. Therefore she continues to sleep with the oxygen when this is good. At least her last blood gas was some reassuring. The patient has been having hard time tolerating the Trelegy inhaler. She still has some Symbicort although she does not find that very helpful. Therefore, will go ahead and switch over to breztri. in addition to that, the patient been complaining of thrush. I do not see any on examination. I will send some nystatin mouthwash that she can use to try to prevent further thrush. We can also consider an inhaler without a cortical steroid. She is also developing some chest congestion. Therefore will treat her for that. She is status post COVID likely I postviral lower respiratory infection is starting. 04/27/2023 the patient is here for a sick visit. She has been having worsening respiratory symptoms cough chest tightness and wheezing for about 7 days. She went to an urgent Care was given doxycycline. The patient is not feeling better. Having significant coughing bouts. Moderate severity. Denies any fevers or chills. Also on arrival today her oxygen was on the lower side 91%. It did improve. During the last visit the patient could not perform walking oximetry. she will return in 3 weeks will try to do a 6 minute walk test at that time. In the meantime will go ahead and treat her with a prednisone taper. The patient will also start a 2nd antibiotic. If she has no better she will get an x-ray. 07/06/2023 the patient is here for a pulmonary follow-up visit. Overall she has feeling a lot better. She is responding well to the oxygen supplementation. She does have a portable oxygen concentrator that she uses during the daytime with activity and at rest. In addition to that she does use her oxygen at nig httime via the concentrator. The patient is planning a trip [place]. I did recommend she can call her [employer] in order to get a concentrator available for her oxygen needs. Patient continues use her respiratory therapy with good effect. the patient unfortunately was not able tolerate the noninvasive ventilator. Will go ahead and request a repeat blood gas and chest x-ray at this time. She has not been using her Breztri inhaler because she does not like the after taste. She has been using her albuterol couple times a day. I did provide her with a spacer that she ca n use with her Breztri in order to minimize the adverse taste. I did recommend the patient start taking the inhaler twice a day. She does cough a lot at nighttime. I do believe that the use of the inhaler prior to going to bed will be helpful. In addition to that will prescribe her benzonates. 11/23/2023 The patient is here for a pulmonary follow up visit. Back in October she was admited to the hospital with oneumonia. She had a CT chest whic I personally reviewd with bilateral pneumonia, suspicious for an atypical pneumonia. Then, she returned with hypoglycemia. Now she is better. Still with dyspnea on exertion and cough, mild in severity. At baseline. She has been using the oxygen with good response. Though, having daytime drowsiness and an elevated EPWORTH 11/24. She did have have a CPAP before. She then was placed on an NIV, but she could not tolerate it. I will request a repeat in lab PSG at this time. She continues to take her respiratory medicines with good effect. 02/12/2024 the patient is here for pulmonary follow-up visit. The patient overall has been doing well. Respiratory status has been stable. She is still having daytime drowsiness with an elevated Mendon score 11/24. She is still waiting for sleep study. Hopefully she gets it soon we can always add an addendum to get her on PAP therapy if she needs to go back on PAP therapy. In the meantime she continues use the oxygen with good effect. She mainly uses it with activity and sleep. The patient also is working closely with bariatric surgery. She is going to undergo the removal of the gastric band and likely un dergo gastric sleeve surgery. I do believe that does a very good option for her. 09/26/2024 the patient is here for pulmonary follow-up visit. Overall she is doing good she continues use the oxygen with good effect. She is currently in a wheelchair because she has developed significant neuropathy of her legs that keep her from being able to ambulate. She is still uses the oxygen in that has been affecting beneficial. Although she does have daytime drowsiness with an elevated Mendon score of 11/24. She was supposed to have a in-lab sleep study but she was not able to do so. Will go ahead and request the sleep study against and she really needs it as she continues to be symptomatic and has significant cardiovascular health issues. From a respiratory status she continues use her respiratory medications as prescribed. Will plan to follow-up after her sleep study. The patient will benefit from PAP therapy. [facility] Medical History (Updated 09/26/24 @ 15:08 by Abhi Benson MD) CASSANDRA (obstructive sleep apnea) MCI (mild cognitive impairment) Depressed Ulnar neuropathy Diabetic neuropathy Peripheral vascular disease Supplemental oxygen dependent GERD (gastroesophageal reflux disease) Hypoglycemia associated with type 2 diabetes mellitus COPD exacerbation C. difficile enteritis COVID-19 DVT (deep venous thrombosis) Pulmonary hypertension Pulmonary emboli Acute on chronic respiratory failure with hypoxia and hypercapnia Chronic respiratory failure KIPNUK (hard of hearing) PONV (postoperative nausea and vomiting) Post herpetic neuralgia Pneumonia Back pain Morbid obesity Chest crackles Cardiomegaly Asthma-COPD overlap syndrome Acute respiratory failure Hyperlipidemia Hypertension Diabetes Arnold-Chiari malformation Arthritis Fibromyalgia Cough CASSANDRA treated with BiPAP Asthma Sinusitis Surgical History History of removal of laparoscopic gastric banding device Hx of eye surgery History of esophagogastroduodenoscopy (EGD) H/O colonoscopy Hx of laparoscopic gastric banding (~2009) H/O bilateral breast reduction surgery H/O brain surgery Family History Mother HTN (hypertension) Breast cancer Father Primary cancer of bone marrow Social History Household Members: Family Household Members Other:: granddaughter Housing: Apartment Are you a primary social worker palliative care to a significant other at home: No Do you presently have visiting nurse or other home services: Yes (MANAGER MSW) Unable to assess alcohol history related to: Unable to respond Alcohol intake: unknown Patient Tobacco Use Status: Former Tobacco user Tobacco use type: Cigarette Years Smoked: 15 +/- e-Cigarette/Vaping Use: Never Used Second Hand Smoke Exposure: No Advance Directives Date on File: 11/11/21 service: No Review of Systems Const Reports daytime sleepiness, Reports snoring, Reports stops breathing during sleep and Reports weight loss Eyes Reports loss of vision ENT Reports dizziness, Reports hearing loss, Reports nasal congestion and Reports nasal discharge Card Reports leg edema, Reports lightheadedness, Reports palpitations, Reports dyspnea on exertion and Reports orthopnea Resp Reports cough, Denies hemoptysis, Reports dyspnea on exertion, Reports snoring and Reports wheezing GI Reports heartburn and Reports vomiting Musc Reports abnormal gait, Reports atrophy, Reports arthralgias, Reports muscle weakness, Reports numbness and Denies other (Frequent falls) Skin/Breast Reports nail changes and Reports rash Neuro Reports Abnormal speech present, Reports abnormal gait, Reports dizziness, Reports loss of vision and Reports numbness Endo Reports palpitations Aller/Immun Reports wheezing Physical Exam Vital Signs: Last Vital Signs Pulse 97 09/26/24 14:42 BP 124/64 09/26/24 14:42 Pulse Ox 97 09/26/24 14:42 Oxygen Delivery Method Room Air 09/26/24 14:42 Const General: comfortable and alert Limitations: wheelchair Neck Neck: Yes normal visual inspection, Yes full ROM and Yes no lymphadenopathy Chest Chest palpation & inspection: normal inspection of the chest Resp Effort & Inspection: normal respiratory effort Auscultation: diminished lung sounds Cardio Rate: regular rate Rhythm: regular rhythm Heart sounds: S1 normal heart sound present and S2 normal heart sound present GI Palpation (GI): Soft to palpation Auscultation: normal bowel sounds Skin General skin exam: rashes and/or lesions noted Neuro Speech: Abnormal speech present Extrem General: Yes no clubbing, cyanosis or edema Assessment & Plan Assessment & Plan (1) Asthma-COPD overlap syndrome: Code(s): J44.9 - Chronic obstructive pulmonary disease, unspecified Category: Medical (2) Pulmonary emboli: Code(s): I26.99 - Other pulmonary embolism without acute cor pulmonale Category: Medical Qualifiers: Pulmonary embolism type: multiple subsegmental (without acute cor pulmonale) Qualified Code(s): I26.94 - Multiple subsegmental pulmonary emboli without acute cor pulmonale (3) Pulmonary hypertension: Code(s): I27.20 - Pulmonary hypertension, unspecified Category: Medical (4) DVT (deep venous thrombosis): Code(s): I82.409 - Acute embolism and thrombosis of unspecified deep veins of unspecified lower extremity Category: Medical Qualifiers: Affected thrombotic vein of extremity: unspecified vein of extremity Chronicity: unspecified DVT location: lower extremity Laterality: unspecified laterality Qualified Code(s): I82.409 - Acute embolism and thrombosis of unspecified deep veins of unspecified lower extremity (5) Chronic respiratory failure: Code(s): J96.10 - Chronic respiratory failure, unspecified whether with hypoxia or hypercapnia Category: Medical Qualifiers: Respiratory failure complication: hypoxia and hypercapnia Qualified Code(s): J96.11 - Chronic respiratory failure with hypoxia; J96.12 - Chronic respiratory failure with hypercapnia (6) Chronic restrictive lung disease: Code(s): J98.4 - Other disorders of lung Category: Medical (7) CASSANDRA (obstructive sleep apnea): Code(s): G47.33 - Obstructive sleep apnea (adult) (pediatric) Category: Medical Plan continue Oxygen 2-L/pulse with activity. POC with activity for better portability and ease. continue Breztri will try the spacer to minimize after taste nebulizer 1-2 day MISBAH as needed Fluticasone nasal spray stopped Non invasive ventilator, Astral in lab PSG to reassess for PAP therapy pending Continue respiratory therapy F/U 3-4 months Orders: Orders RT PSG in-lab sleep study 09/26/24 G47.33 - Obstructive sleep apnea (adult) (pediatric) Coding Level of Care Code Est Pt Level 4 (74853) Complex EM visit Add On G2211 Diagnoses Asthma-COPD overlap syndrome J44.9 Multiple subsegmental pulmonary emboli without acute cor pulmonale I26.94 Pulmonary embolism type: multiple subsegmental (without acute cor pulmonale) Pulmonary hypertension I27.20 Deep vein thrombosis (DVT) of lower extremity, unspecified chronicity, unspecified laterality, unspecified vein I82.409 Affected thrombotic vein of extremity: unspecified vein of extremity Chronicity: unspecified DVT location: lower extremity Laterality: unspecified laterality Chronic respiratory failure with hypoxia and hypercapnia J96.11; J96.12 Respiratory failure complication: hypoxia and hypercapnia Chronic restrictive lung disease J98.4 CASSANDRA (obstructive sleep apnea) G47.33 Time Spent (min) 17
--- OUTSIDE RECORDS SUMMARY | 2024-09-26 14:46 | XMS_ITS | Clinical Summary ---
Author Organization [facility] Address [address] [place] [phone] Phone Care Team Providers Care Assistant Golf Coach Name Role Phone Rito Mesa MD Primary Care Provider Medications traMADoL (ULTRAM) 50 mg tablet Take 50 mg by mouth every 6 (six) hours as needed for pain (specific location in comments) (generalized). 3 Active OXYGEN-AIR DELIVERY SYSTEMS MISC Inhale 2 L into the lungs continuous. currently using 1.5L without desating 3 Active vibegron (GEMTESA) 75 mg tablet Take 75 mg by mouth daily. 3 Active trazodone HCl (TRAZODONE, BULK, MISC) Take 25 mg by mouth daily. bedtime 3 Active vancomycin (VANCOCIN) 125 MG capsule Take 125 mg by mouth 4 (four) times a day. 3 Active Saccharomyces boulardii (FLORASTOR) 250 mg capsule Take 250 mg by mouth 2 (two) times a day. 3 Active montelukast (SINGULAIR) 10 mg tablet Take 10 mg by mouth nightly at bedtime. 3 Active metFORMIN (GLUCOPHAGE) 1000 MG tablet Take 1,000 mg by mouth daily with breakfast. 3 Active LORazepam (ATIVAN) 1 MG tablet Take 1 mg by mouth every 6 (six) hours as needed for anxiety. 3 Active liraglutide (VICTOZA) 0.6 mg/0.1 mL (18 mg/3 mL) PnIj Inject 1.8 mg under the skin daily. 3 Active furosemide (LASIX) 40 MG tablet Take 40 mg by mouth daily. 3 Active darifenacin (ENABLEX) 15 mg 24 hr tablet Take 15 mg by mouth daily. 3 Active donepeziL (ARICEPT) 5 MG tablet Take 5 mg by mouth nightly at bedtime. 3 Active busPIRone (BUSPAR) 15 MG tablet Take 15 mg by mouth 2 (two) times a day. 3 Active albuterol (PROAIR HFA) 90 mcg/actuation inhaler Inhale 2 puffs into the lungs every 4 (four) hours as needed for shortness of breath/dyspnea . 3 Active acetaminophen (TYLENOL EXTRA STRENGTH) 500 MG tablet Take 500 mg by mouth every 6 (six) hours as needed for fever or pain (specific location in comments). 3 Active ARIPiprazole (ABILIFY) 2 MG tablet Take 2 mg by mouth daily. 3 Active Social History Tobacco Use Types Packs/Day Years Used Date Smoking Tobacco: Never Assessed Home Health Assessment: Transportation Answer Date Recorded Lack of Transportation (Medical) No 09/15/2022 Lack of Transportation (Non-Medical) No 09/15/2022 Patient Unable or Declines to Respond No 09/15/2022 Education Answer Date Recorded Are you interested in more education? Not on cassie e 07/12/2022 Are you concerned about learning? Not on file 07/12/2022 No 07/12/2022 No 07/12/2022 Digital Access Answer Date Recorded No 07/26/2022 No 07/26/2022 Reliable internet access at home? Not on file 07/26/2022 Device with a working camera? Not on file Comments Unknown Sex and Gender Information Value Date Recorded Sex Assigned at Not on file Legal Sex Female 8:22 AM EDT Gender Identity Not on file Sexual Orientation Not on file Last Filed Vital Signs Vital Sign Reading Time Taken Comments Blood Pressure 132/84 09/15/2022 10:34 AM EDT Pulse 94 09/15/2022 10:34 AM EDT Temperature 35.9 C (96.6 F) 09/15/2022 10:34 AM EDT Respiratory Rate 18 09/15/2022 10:34 AM EDT Oxygen Saturation 96% 09/15/2022 10:34 AM EDT Inhaled Oxygen Concentration - - Weight 92.5 kg (204 lb) 08/03/2022 2:30 AM EDT Height - - Body Mass Index - - Plan of Treatment Health Maintenance Due Date Last Done Comments Adult Td,Tdap Booster 1952 LIPID PANEL 1952 DEPRESSION SCREENING 1964 SMOKING Hx and SMOKELESS TOBACCO SCREENING 1965 HEPATITIS C SCREENING 1970 MAMMOGRAM 1992 COLOGUARD 1997 COLONOSCOPY 1997 COLORECTAL CANCER SCREENING 1997 FIT TEST 1997 FOBT 1997 SIGMOIDOSCOPY 1997 VIRTUAL COLONOSCOPY 1997 ZOSTER VACCINES (1 of 2) 2002 PNEUMOCOCCAL VACCINES (50+ years) (2 of 2 - PCV) 11/18/2005 11/18/2004 OSTEOPOROSIS SCREENING INITIAL (ONE-TIME) 2017 CREATININE LEVEL 07/02/2023 07/01/2022 COVID-19 VACCINE ( season) 2023 04/16/2021, 04/16/2021, 06/14/2020, Additional history exists RSV VACCINE (1 - 1-dose 75+ series) 09/01/2027 HEPATITIS A VACCINES Aged Out No long er eligible based on patient's age to complete this topic HIB VACCINES Aged Out No longer eligi ble based on patient's age to complete this topic MENINGOCOCCAL VACCINES (ACWY) Aged Out No longer eligible based on patient's age to complete this topic MENINGOCOCCAL VACCINES (B) Aged Out N o longer eligible based on patient's age to complete this topic Medical Devices Not on file Procedures Procedure Name Priority Date/Time Associated Diagnosis Comments COMPREHENSIVE METABOLIC PANEL Routine 07/01/2022 6:32 AM EDT Deep vein thrombosis (DVT) of upper extremity, unspecified chronicity, unspecified laterality, unspecified vein from Last 3 Months or Most Recently Relevant to Health Maintenance Results * (ABNORMAL) Comprehensive metabolic panel (07/01/2022 6:32 AM EDT) SODIUM 140 133 - 146 mmol/L [facility] POTASSIUM 4.9 3.3 - 5.1 mmol/L [facility] CHLORIDE 97 96 - 108 mmol/L [facility] CO2 34 21 - 35 mmol/L [facility] BUN 28(H) 6 - 19 mg/dL [facility] CREATININE 1.10 0.5 - 1.5 mg/dL [facility] GLUCOSE 263(H) 70 - 99 mg/dL [facility] ALBUMIN 3.5(L) 3.9 - 4.8 g/dL [facility] TOTAL PROTEIN 6.1(L) 6.5 - 8.0 g/dL [facility] CALCIUM 9.7 8.4 - 10.3 mg/dL [facility] ALKALINE PHOSPHATASE 79 39 - 117 U/L [facility] TOTAL BILIRUBIN 0.3 0.0 - 1.2 mg/dL [facility] AST 16 0 - 37 U/L [facility] ALT 16 0 - 40 U/L [facility] GLOBULIN 2.6 1 - 4.8 g/dL [facility] EGFR 54(L) >59 mL/min/1.7 3m2 [facility] Comment:Estimated glomerular filtration rate calculated using the CKD-EPI refit equation. ANION GAP 14 10 - 20 mmol/L [facility] Blood 07/01/2022 6:32 AM EDT 07/01/2022 9:26 AM EDT Soumya Weinstein MD LAB BLOOD ORDERABLES Kemi moeller Result Performing Organization Address City/State/[facility] Co de Phone Number [facility] [address] [place] [address] from Last 3 Months or Most Recently Relevant to Health Maintenance Insurance [facility] MEDICARE REPLACEMENT [facility] MEDICARE REPLACEMENT [facility] MEDIC[facility] REPLACEMENT Care Teams Assistant Golf Coach Relationship Specialty Start Date End Date Rito Mesa MD [address] [place] [id number] PCP - General Internal Medicine 07/13/22 Additional Source Comments The information contained in this document represents components of the legal health record. It is not the complete legal health record.[facility]
--- OUTSIDE RECORDS SUMMARY | 2024-09-26 14:46 | XMS_ITS | Data Portability ---
Author Organization [facility] Address [address] [place] [address] Care Team Providers Care Commercial Property Manager Name Role Phone [facility] Referring Provider [phone] Assessment Encounter Date Assessment Date Assessment LastModified by Organization Details LastModified Time 04/25/2023 04/25/2023 I have reviewed and agree with the assessment and plan as documented by the barrel burner. I provided real-time medical direction for this [...] doxycycline hyclate 100 mg tablet 2023 024 [id number], [address], [place], [phone], 17:02:53 Patient TargetsNo targets recorded. Patient InstructionsNo instructions recorded. Reason for Referral None Reported. Medical Equipment None Reported. Allergies Allergen ID Allergen Name Allergen Category Reaction Reaction Severity Criticality Documentation Date Start Date Code Code System Note Provider Name and Address Organization Details Recorded Time 8857 latex environme nt,medica tion Not available Not available Not available 01/02/2024 88040 91 RxNorm Not Available [facility] - production 4 03:47:12 8847 Product containin g penicilli n (product) medicatio n Not available Not available Not available 01/02/2024 48907 8001 SNOMED Not Available [facility] - production [...] Available Not Available Not Available Dexcom G6 Group Dynamics Instructor USE DIRECTED active Not Available Not Available [...] % 98 % 2 L/min 16 /min 31418.4 g 97.2 [degF] 73 /min 152.4 cm [...] Note Elizabeth Phelps MD Main - [facility] [address] [place] [phone] 04/25/2023 16:58:36 04/26/2023 13:01:34 Acute exacerbation of chronic obstructive pulmonary disease 158859891 J44.1 Health Concerns Section Related Observation LastModified by Organization Detai ls LastModified Time None Recorded Concern Status LastModified by Organization Details LastModified Time None Recorded Advance Directives Directive None Recorded Payers Insurance Date Sequence Insurance Name Policy Number Policy Blackwood Covered Member ID Blackwood Member ID Guarantor Name 04/25/2023 1 [facility] [employer] - DOS PRIOR TO 2022 - DUAL ELIGIBLE (MEDICARE REPLACEMENT/ADV ANTAGE - HMO) Madeleine Ledezma [id number] Madeleine Ledezma 04/25/2023 1 [facility] [employer] - DOS ON OR AFTER 2022 - DUAL ELIGIBLE - RESIDENTIAL OPTIONS AND ONE CARE (MEDICARE REPLACEMENT/ADV ANTAGE - HMO) Madeleine Ledezma [id number] Madeleine Ledezma Notes Date Note Type Note [...] .................. .................. .................. .................. .................. .................. ............... Web Press Jogger Note From Cory Pierce: Pt reports three [...] ............... Disposition: Fulfilled Elizabeth Phelps MD [address] [facility],[address], [place], [address], CHE - JOSELIN LEACH 04/25/2023 17:52:09 OBGyn Episode No OBEpisode recorded.
== END 2024-09-26 15:11 | disposition home or self-care (01) ==
LOC: HO.HPS 14:35
PROVIDERS: PCP Internal Medicine; Visit Provider Hospitalist
DX: J44.9 Chronic obstructive pulmonary disease, unspecified (principal); I26.94 Multiple subsegmental thrombotic pulmonary emboli without acute cor pulmonale; I27.20 Pulmonary hypertension, unspecified; I82.409 Acute embolism and thrombosis of unspecified deep veins of unspecified lower extremity; J96.11 Chronic respiratory failure with hypoxia; J96.12 Chronic respiratory failure with hypercapnia; J98.4 Other disorders of lung; G47.33 Obstructive sleep apnea (adult) (pediatric)
CPT/HCPCS: 99214; G2211

== ENCOUNTER → 2024-09-26 14:34 | Outpatient (BNVA) | payer OTHER, SELFPAY | PROVIDERS: PCP Internal Medicine; Visit Provider Hospitalist | DX: J44.89 Other specified chronic obstructive pulmonary disease (principal); I26.99 Other pulmonary embolism without acute cor pulmonale; I27.20 Pulmonary hypertension, unspecified; I82.452 Acute embolism and thrombosis of left peroneal vein; J96.11 Chronic respiratory failure with hypoxia; J98.4 Other disorders of lung; G47.33 Obstructive sleep apnea (adult) (pediatric); Z99.81 Dependence on supplemental oxygen; Z99.3 Dependence on wheelchair | CPT/HCPCS: 99212 ==

== ENCOUNTER 2024-11-13 12:59 | Outpatient (AMB) | payer OTHER, SELFPAY ==
--- NOTE | 2024-11-13 13:09 | A.OFFVIS_ITS ---
Intake Visit Reasons: (OV) PO GASTRIC BAND REMOVAL Allergies aspirin (ASPIRIN) Allergy (Intermediate, Verified 09/26/24 14:48) GI UPSET, stomach pain latex (LATEX) Allergy (Intermediate, Verified 09/26/24 14:48) HIVES Medication List - Last Reconciled 11/13/24 by KULWANT Mccrary acetaminophen (Tylenol Extra Strength) 650 mg PO Q6H PRN acetone (urine) test (Ketostix strips) prn tid glucose over 250, illness, nausea, vomiting albuterol sulfate 2.5 mg inhalation Q4H PRN albuterol sulfate 90 mcg/actuation 2 puffs PO QID PRN ammonium lactate 12% 1 appl topical DAILY aripiprazole 7.5 mg PO DAILY atorvastatin 40 mg PO DAILY azelastine 1 spray intranasal BEDTIME PRN blood sugar diagnostic (FreeStyle Lite Strips) As directed prn qid sensor failure, confirm glucose blood-glucose meter (FreeStyle Lite Meter kit) As directed blood-glucose sensor (DexSweetPerk G7 Sensor device) APPLY DIRECTED AND CHANGE EVERY 10 DAYS (BULK) blood-glucose,production operations manager,cont (Dexcom G7 Senior Staff Consultant) As directed bolus insulin pump, 200 unit (CeQur Simplicity) [id number]-evgfftlzmr 160-9-4.8 mcg/actuation (Breztri Aerosphere) 2 inhalations inhalation BID 90 days buspirone 30 mg PO BID clonazepam 0.5 mg PO BID PRN [diabetic shoes extra depth orthopedic shoes ( 1 pair ) with customize heat molded multi density inner soles ( 3 pair) Dispense 1 Sig: As directed DX: And IDDM /polyneuropathy ( E11 0.42 ); hammertoe foot deformity ( M 20.41, and 20.42 ) pre ulcerative skin lesion ( L 85.1 ) Diagnosis ( E11 0.42 ) type 2 diabetes with polyneuropathy] diabetic supplies, miscellan. (CeQur Simplicity Mat Sewer) As directed for use with cequr insulin patch donepezil 5 mg PO BEDTIME duloxetine 60 mg PO DAILY fluticasone propionate 50 mcg/actuation 2 sprays intranasal DAILY gabapentin 300 mg PO TID 30 days glucagon 3 mg/actuation (Baqsimi) 3 mg intranasal ONCE PRN 30 days MDD may repeat in 15 min Humalog KwikPen Insulin (insulin lispro) 2-6 units tid with meals as needed subcutaneously use as directed; 30 days MDD 18 NS insulin glargine 8 units (0.08 mL) subcut QPM 90 days insulin syringe-needle U-100 (BD Insulin Syringe Ultra-Fine) qid for insulin administration lancets (FreeStyle Lancets) As directed checks 4 times a day lancets (FreeStyle Lancets) 4 times a day prn sensor failure or to confirm gl ucose lidocaine 5% (Lidoderm) 1 patch topical DAILY PRN lisinopril mg PO DAILY magnesium oxide (MagOx) 400 mg PO BID melatonin 10 mg PO BEDTIME PRN metformin 1,000 mg PO BID montelukast 10 mg PO DAILY 90 days Mounjaro (tirzepatide) 2.5 mg (0.5 mL) subcut QWEEK 4 weeks NS nebulizers As directed nystatin (Nystop) 1 appl topical BID-TID PRN nystatin 1 mL PO BID Oxygen Home Use As directed pantoprazole 40 mg PO DAILY@0630 pen needle, diabetic (BD Ultra-Fine Short Pen Needle) DIRECTED TO INJECT FOUR TIMES DAILY pen needle, diabetic qid vibegron (Gemtesa) 75 mg PO DAILY walker As directed zolpidem 10 mg PO BEDTIME PRN HPI Comments Details: 74-year-old female status post gastric band removal on 03/13/2024. She presented to the hospital on 04/23/2024 with an abdominal rash. She was found to have septic shock with hypotension requiring IV vancomycin, Zosyn, clindamycin as well as pressors. She remained in the hospital for 3 days, discharged home on 04/26/2024, ultimately being discharged home on Augmentin and doxycycline for 5 days. Of note, she was found to have incisional dehiscence at the site of her gastric port. There was concern of possible abscess there but inspection at the time of presentation in the emergency room showed no evidence of purulent material or fluctuance within the wound itself. This was explored by Dr. Granados bedside in the emergency department. It has since healed. No complaints of pain. Reports blood sugars well controlled. Overall feeling well. Current meal plan: Celebrate rebuild, 2 scoops, x3 shakes per day. She may also have a small meal with 7 forks of protein and 7 forks of vegetables. Weight remains stable since last OV 3mo ago. She remains on Mounjaro, decreased to 2.5mg, but was not following meal plan. Plans to start walking more, but not able to walk much comfortably. Has an appt coming up with [employer]. [facility] Medical History (Updated 09/26/24 @ 15:08 by Abhi Benson MD) CASSANDRA (obstructive sleep apnea) MCI (mild cognitive impairment) Depressed Ulnar neuropathy Diabetic neuropathy Peripheral vascular disease Supplemental oxygen dependent GERD (gastroesophageal reflux disease) Hypoglycemia associated with type 2 diabetes mellitus COPD exacerbation C. difficile enteritis COVID-19 DVT (deep venous thrombosis) Pulmonary hypertension Pulmonary emboli Acute on chronic respiratory failure with hypoxia and hypercapnia Chronic respiratory failure [place] (hard of hearing) PONV (postoperative nausea and vomiting) Post herpetic neuralgia Pneumonia Back pain Morbid obesity Chest crackles Cardiomegaly Asthma-COPD overlap syndrome Acute respiratory failure Hyperlipidemia Hypertension Diabetes Arnold-Chiari malformation Arthritis Fibromyalgia Cough CASSANDRA treated with BiPAP Asthma Sinusitis Surgical History History of removal of laparoscopic gastric banding device Hx of eye surgery History of esophagogastroduodenoscopy (EGD) H/O colonoscopy Hx of laparoscopic gastric banding (~2009) H/O bilateral breast reduction surgery H/O brain surgery Family History Mother HTN (hypertension) Breast cancer Father Primary cancer of bone marrow Social History Household Members: Family Household Members Other:: granddaughter Housing: Apartment Are you a primary personal care assistant to a significant other at home: No Do you presently have visiting nurse or other home services: Yes (NUCLEAR TECHNOLOGIST) Unable to assess alcohol history related to: Unable to respond Alcohol intake: unknown Patient Tobacco Use Status: Former Tobacco user Tobacco use type: Cigarette Years Smoked: 15 +/- e-Cigarette/Vaping Use: Never Used Second Hand Smoke Exposure: No Advance Directives Date on File: 11/11/21 service: No Assessment & Plan Assessment & Plan (1) Hx of laparoscopic gastric banding: Onset Date: ~2009 Code(s): Z98.84 - Bariatric surgery status Category: Surgical (2) Obesity: Code(s): E66.9 - Obesity, unspecified Category: Medical (3) Wound dehiscence: Code(s): T81.30XA - Disruption of wound, unspecified, initial encounter Category: Medical Plan Status post band removal. Encouraged pt to ensure she follows meal plan of Celebrate Rebuild, 2 scoops, x3 shakes per day (10a-12p, 2-4p, 8-10p with dinner at 6p). Small meal with 7 forks of protein and 7 forks of vegetables. She has done well on this plan in the past and would like to resume. She would also like to try to walk more. On Mounjaro. Not interested in any further surgery. RTC 3-4 months.
--- OUTSIDE RECORDS SUMMARY | 2024-11-13 15:59 | XMS_ITS | Clinical Summary ---
Author Organization [facility] Address [address] [facility] [address] [place] [address] Phone Care Team Providers Care Global Climate Change Researcher Name Role Phone Rito Mesa MD Primary [...] EDT) SODIUM 140 133 - 146 mmol/L [facility] POTASSIUM 4.9 3.3 - 5.1 mmol/L [facility] CHLORIDE 97 96 - 108 mmol/L [facility] CO2 34 21 - 35 mmol/L [facility] BUN 28(H) 6 - 19 mg/dL [facility] CREATININE 1.10 0.5 - 1.5 mg/dL [facility] GLUCOSE 263(H) 70 - 99 mg/dL [facility] ALBUMIN 3.5(L) 3.9 - 4.8 g/dL [facility] TOTAL PROTEIN 6.1(L) 6.5 - 8.0 g/dL [facility] CALCIUM 9.7 8.4 - 10.3 mg/dL [facility] ALKALINE PHOSPHATASE 79 39 - 117 U/L [facility] TOTAL BILIRUBIN 0.3 0.0 - 1.2 mg/dL [facility] AST 16 0 - 37 U/L [facility] ALT 16 0 - 40 U/L [facility] GLOBULIN 2.6 1 - 4.8 g/dL [facility] EGFR 54(L) >59 mL/min/1.7 3m2 [facility] Comment:Estimated glomerular filtration rate calculated using the CKD-EPI refit equation. ANION GAP 14 10 - 20 mmol/L [facility] Blood 07/01/2022 6:32 AM EDT 07/01/2022 9:26 AM EDT Soumya Weinstein MD LAB BLOOD ORDERABLES Kemi moeller Result Performing Organization Address City/State/[facility] Co de Phone Number [facility] [address] [place] [address] from Last 3 Months or Most Recently Relevant to Health Maintenance Insurance [facility] MEDICARE REPLACEMENT [facility] MEDICARE REPLACEMENT [facility] MEDICARE REPLACEMENT Care Teams Global Climate Change Researcher Relationship Specialty Start Date End Date Rito Mesa MD [address] [place] [address] PCP - General Internal Medicine 07/13/22 Additional Source Comments The information contained in this document represents components of the legal health record. It is not the complete legal health record.[facility]
== END 2024-11-13 13:25 | disposition home or self-care (01) ==
LOC: HO.HBS 13:00
PROVIDERS: PCP Internal Medicine; Visit Provider Physician Assistant Surgical
DX: E66.9 Obesity, unspecified (principal); T81.30XA Disruption of wound, unspecified, initial encounter; Z71.3 Dietary counseling and surveillance; Z98.84 Bariatric surgery status
CPT/HCPCS: 99213; G2211

== ENCOUNTER → 2024-11-13 12:59 | Outpatient (BNVA) | payer OTHER, SELFPAY | PROVIDERS: PCP Internal Medicine; Visit Provider Physician Assistant Surgical | DX: T81.30XD Disruption of wound, unspecified, subsequent encounter (principal); E66.9 Obesity, unspecified; Z98.84 Bariatric surgery status; Z68.41 Body mass index [BMI] 40.0-44.9, adult | CPT/HCPCS: 99212 ==

== ENCOUNTER 2024-11-19 12:58 | Outpatient (AMB) | payer OTHER, SELFPAY ==
--- NOTE | 2024-11-19 12:59 | MHC.OFFVIS ---
Vital Signs 11/19/24 13:03 Height 5 ft Weight 177 lb 0.499 oz BMI 34.6 BP 94/58 L Blood Pressure Location Rt brachial Position Sitting Pulse 86 Pulse Source Palpation Intake Visit Reasons: T2DM Intake Note: Patient present today to follow up on Type 1 Diabetes Mellitus. Last Diabetic Eye exam: Last year, is seen every 2 years at [facility] Last Podiatry Visit: Does not see a Equipment Validation Specialist Random Glucose: 123 mg/dl Hgb A1C: 5.6% 11/19/2024 Access Assoc Required: No Accompanied by: COMMERCIAL SERVICE TECHNICIAN Allergies aspirin (ASPIRIN) Allergy (Intermediate, Verified 11/19/24 13:03) GI UPSET, stomach pain latex (LATEX) Allergy (Intermediate, Verified 11/19/24 13:03) HIVES Medication List - Last Reconciled 11/19/24 by Zafar Arambula MD acetaminophen (Tylenol Extra Strength) 650 mg PO Q6H PRN acetone (urine) test (Ketostix strips) prn tid glucose over 250, illness, nausea, vomiting albuterol sulfate 2.5 mg inhalation Q4H PRN albuterol sulfate 90 mcg/actuation 2 puffs PO QID PRN ammonium lactate 12% 1 appl topical DAILY aripiprazole 7.5 mg PO DAILY atorvastatin 40 mg PO DAILY azelastine 1 spray intranasal BEDTIME PRN blood sugar diagnostic (FreeStyle Lite Strips) As directed prn qid sensor failure, confirm glucose blood-glucose meter (FreeStyle Lite Meter kit) As directed blood-glucose sensor (Dexcom G7 Sensor device) APPLY DIRECTED AND CHANGE EVERY 10 DAYS (BULK) blood-glucose,slate cutter operator,cont (Dexcom G7 Education General Manager) As directed bolus insulin pump, 200 unit (CeQur Simplicity) [id number]-hhuofuic-fmitucbrej 160-9-4.8 mcg/actuation (Breztri Aerosphere) 2 inhalations inhalation BID 90 days buspirone 30 mg PO BID clonazepam 0.5 mg PO BID PRN [diabetic shoes extra depth orthopedic shoes ( 1 pair ) with customize heat molded multi density inner soles ( 3 pair) Dispense 1 Sig: As directed DX: And IDDM /polyneuropathy ( E11 0.42 ); hammertoe foot deformity ( M 20.41, and 20.42 ) pre ulcerative skin lesion ( L 85.1 ) Diagnosis ( E11 0.42 ) type 2 diabetes with polyneuropathy] diabetic supplies, miscellan. (CeQur Simplicity Mud Mill Tender) As directed for use with cequr insulin patch donepezil 5 mg PO BEDTIME duloxetine 60 mg PO DAILY fluticasone propionate 50 mcg/actuation 2 sprays intranasal DAILY gabapentin 300 mg PO TID 30 days glucagon 3 mg/actuation (Baqsimi) 3 mg intranasal ONCE PRN 30 days MDD may repeat in 15 min Humalog KwikPen Insulin (insulin lispro) 2-6 units tid with meals as needed subcutaneously use as directed; 30 days MDD 18 NS insulin glargine 8 units (0.08 mL) subcut QPM 90 days insulin syringe-needle U-100 (BD Insulin Syringe Ultra-Fine) qid for insulin administration lancets (FreeStyle Lancets) As directed checks 4 times a day lancets (FreeStyle Lancets) 4 times a day prn sensor failure or to confirm glucose lidocaine 5% (Lidoderm) 1 patch topical DAILY PRN lisinopril mg PO DAILY magnesium oxide (MagOx) 400 mg PO BID melatonin 10 mg PO BEDTIME PRN metformin 1,000 mg PO BID montelukast 10 mg PO DAILY 90 days Mounjaro (tirzepatide) 2.5 mg (0.5 mL) subcut QWEEK 4 weeks NS nebulizers As directed nystatin (Nystop) 1 appl topical BID-TID PRN nystatin 1 mL PO BID Oxygen Home Use As directed pantoprazole 40 mg PO DAILY@0630 pen needle, diabetic (BD Ultra-Fine Short Pen Needle) DIRECTED TO INJECT FOUR TIMES DAILY pen needle, diabetic qid vibegron (Gemtesa) 75 mg PO DAILY walker As directed zolpidem 10 mg PO BEDTIME PRN HPI Comments Details: 74 year old who is seen in f/u for type 2 diabetes. She was last seen byLanny Vaughn NP on 08/20/24 . She was started on an islet insulin pump 2023 and had been doing well with exception of a low glucose during the first week of pump therapy. She had a hypoglycemic episode to 40 associated with nausea, vomiting and hypothermia 01/05/24 and insulin pump was discontinued in the hospital and she was placed on Lantus insulin and a decision was made to keep her off pump therapy. She has acid reflux which has not increased since starting Mounjaro Had issue with lap band earlier in 2024 which was removed earlier this year complicated by wound infection which has resolved. Initially diagnosed with T2DM in >10 yrs . Saw allyson in the nast Dr. Lyons at [facility] Was initially started on treatment with metformin. Stopped because she couldn't swallow the pills Current medications: Lantus 8 units takes once every two weeks on ocasion Novolog uses just once or twice per week not taken 100-150 2 units 151-200 4 units over 200 6 units Mounjaro 2.5 mg weekly Metformin 1000 mg twice daily Unfortunately, patient did not bring glucometer, log book or sensor to follow up appointment She reports low appetite on Mounjaro. She eats a small breakfast and very small supper with nothing in between. Supper is typically chicken the size of a pack a carbs with a couple bites of vegetables. She is not feel able to eat anymore. Treats lows with eats sugar. Checks sugar after to ensure it is rising. Treats according to rule of 15's. Has a glucagon rescue kit at home . Family history of T2DM in maternal grandmother, cousins , aunt, sister . Has Retinopathy: Has eyes checked yearly, last eye exam 01/2024 Has neuropathy, does not see podiatry. Symptoms include: Numbness and tingling. Patient is on gabapentin Denies nephropathy, on OSITO/ARB eGFR>60 08/27/2022 microalbumin 11.0 Has HLD, on statin. Last LDL 77 2022 Denies CAD. Has seen Lissy Mackey [facility] Medical History (Updated 09/26/24 @ 15:08 by Abhi Benson MD) CASSANDRA (obstructive sleep apnea) MCI (mild cognitive impairment) Depressed Ulnar neuropathy Diabetic neuropathy Peripheral vascular disease Supplemental oxygen dependent GERD (gastroesophageal reflux disease) Hypoglycemia associated with type 2 diabetes mellitus COPD exacerbation C. difficile enteritis COVID-19 DVT (deep venous thrombosis) Pulmonary hypertension Pulmonary emboli Acute on chronic respiratory failure with hypoxia and hypercapnia Chronic respiratory failure [place] (hard of hearing) PONV (postoperative nausea and vomiting) Post herpetic neuralgia Pneumonia Back pain Morbid obesity Chest crackles Cardiomegaly Asthma-COPD overlap syndrome Acute respiratory failure Hyperlipidemia Hypertension Diabetes Arnold-Chiari malformation Arthritis Fibromyalgia Cough CASSANDRA treated with BiPAP Asthma Sinusitis Surgical History History of removal of laparoscopic gastric banding device Hx of eye surgery History of esophagogastroduodenoscopy (EGD) H/O colonoscopy Hx of laparoscopic gastric banding (~2009) H/O bilateral breast reduction surgery H/O brain surgery Family History Mother HTN (hypertension) Breast cancer Father Primary cancer of bone marrow Social History Household Members: Family Household Members Other:: granddaughter Housing: Apartment Are you a primary care professional to a significant other at home: No Do you presently have visiting nurse or other home services: Yes (COMMERCIAL SERVICE TECHNICIAN) Unable to assess alcohol history related to: Unable to respond Alcohol intake: unknown Patient Tobacco Use Status: Former Tobacco user Tobacco use type: Cigarette Years Smoked: 15 +/- e-Cigarette/Vaping Use: Never Used Second Hand Smoke Exposure: No Advance Directives Date on File: 11/11/21 service: No Physical Exam Vital Signs: Last Vital Signs Pulse 86 11/19/24 13:03 BP 94/58 L 11/19/24 13:03 BMI result Body Mass Index 34.6 Const Other: Absence of Cushingoid features. Absence of acromegalic features. Neck exam reveals nl size thyroid about 15 gms. No thyroid nodules palpable. Heart S1 S2, Reg R/R. No M/R G. Skin exam reveals absence of vitiligo or acanthosis nigricans. Skin on an abdomen reveals no signs and symptoms of infection. No edema Visual exam of foot performed. No ulcerations or open lesions. No inter digit maceration or fissuring. No onychomycosis, no callouses. Sensation intact to monofilament exam. Vibratory sensation is normal with 128 Hz tuning fork. Results AMB Hemoglobin A1c AMB Hemoglobin A1c 5.6 % Last Edit by WAQAR Crespo on 11/19/24 13:28 Results Reviewed Results Reviewed: Laboratory Last Values Glucose (Clinic) 123 mg/dL (60-115) H 11/19/24 13:12 Assessment & Plan Assessment & Plan (1) Diabetes: Code(s): E11.9 - Type 2 diabetes mellitus without complications Category: Medical Qualifiers: Diabetes mellitus complication status: with hypoglycemia Diabetes mellitus termite treater helper insulin use: with snf use Diabetes mellitus type: type 2 Plan: This is a 72-year-old female with a history of type 2 diabetes being treated with Mounjaro and metformin excellent glycemic control and no known microvascular or macrovascular complications. Plan is to with the current regimen. We will check lipid profile microalbumin to creatinine ratio. We will have patient follow up with primary care diabetes team in 6 months Orders: Orders AMB Hemoglobin A1c Today E11.40 - Type 2 diabetes mellitus with diabetic neuropathy, unspecified Lipid Panel Today E11.9 - Type 2 diabetes mellitus without complications Microalbumin, Random (w Creat) Today E11.9 - Type 2 diabetes mellitus without complications Coding Level of Care Code Est Pt Level 4 (40182) Diagnoses Diabetes E11.9 Diabetes mellitus complication status: with hypoglycemia Diabetes mellitus termite treater helper insulin use: with snf use Diabetes mellitus type: type 2
[2024-11-19 13:03] VITALS: BP 94/58; PULSE 86; BMI 34.6
[2024-11-19 13:16] LABS: Glucose, Whole Blood 123 mg/dL (60-115)
--- OUTSIDE RECORDS SUMMARY | 2024-11-19 16:56 | XMS_ITS | Clinical Summary ---
Author Organization [facility] Address [address] [facility] [address] [place] [phone] Phone Care Team Providers Care Noc Technician Name Role Phone Rito Mesa MD Primary [...] EDT) SODIUM 140 133 - 146 mmol/L [facility] POTASSIUM 4.9 3.3 - 5.1 mmol/L [facility] CHLORIDE 97 96 - 108 mmol/L [facility] CO2 34 21 - 35 mmol/L [facility] BUN 28(H) 6 - 19 mg/dL [facility] CREATININE 1.10 0.5 - 1.5 mg/dL [facility] GLUCOSE 263(H) 70 - 99 mg/dL [facility] ALBUMIN 3.5(L) 3.9 - 4.8 g/dL [facility] TOTAL PROTEIN 6.1(L) 6.5 - 8.0 g/dL [facility] CALCIUM 9.7 8.4 - 10.3 mg/dL [facility] ALKALINE PHOSPHATASE 79 39 - 117 U/L [facility] TOTAL BILIRUBIN 0.3 0.0 - 1.2 mg/dL [facility] AST 16 0 - 37 U/L [facility] ALT 16 0 - 40 U/L [facility] GLOBULIN 2.6 1 - 4.8 g/dL [facility] EGFR 54(L) >59 mL/min/1.7 3m2 [facility] Comment:Estimated glomerular filtration rate calculated using the CKD-EPI refit equation. ANION GAP 14 10 - 20 mmol/L [facility] Blood 07/01/2022 6:32 AM EDT 07/01/2022 9:26 AM EDT Soumya Weinstein MD LAB BLOOD ORDERABLES Kemi moeller Result Performing Organization Address City/State/[facility] Co de Phone Number [facility] [address] [place] [address] from Last 3 Months or Most Recently Relevant to Health Maintenance Insurance [facility] RE[facility] Care Teams Noc Technician Relationship Specialty Start Date End Date Rito Mesa MD [address] [place] [address] PCP - General Internal Medicine 07/13/22 Additional Source Comments The information contained in this document represents components of the legal health record. It is not the complete legal health record.[facility]
== END 2024-11-19 13:30 | disposition home or self-care (01) ==
LOC: HO.ENCR 12:58
PROVIDERS: PCP Internal Medicine; Visit Provider Internal Medicine Endocrinology, Diabetes & Metabolism
DX: E11.40 Type 2 diabetes mellitus with diabetic neuropathy, unspecified (principal)
CPT/HCPCS: 99214

== ENCOUNTER → 2024-11-19 12:58 | Outpatient (BNVA) | payer OTHER, SELFPAY | PROVIDERS: PCP Internal Medicine; Visit Provider Internal Medicine Endocrinology, Diabetes & Metabolism | DX: E11.9 Type 2 diabetes mellitus without complications (principal); Z79.4 Long term (current) use of insulin; K21.9 Gastro-esophageal reflux disease without esophagitis | CPT/HCPCS: 82947; 83036; 99212 ==

== ENCOUNTER 2024-11-29 07:45 | Emergency (ER) | payer OTHER, SELFPAY ==
[2024-11-29] VITALS (7 sets, daily range): BP systolic 108–156; BP diastolic 52–100; PULSE 78–110; RESP 14–34; TEMP 36.6–36.9; O2SAT 93–98; BMI 36.1
--- NOTE | ~2024-11-29 | CT_ITS ---
EXAMINATION: CT CERVICAL SPINE WITHOUT CONTRAST CLINICAL INFORMATION: Fall with head strike COMPARISON: None available. TECHNIQUE: Axial 3 mm thin and reformatted 2 mm thin sagittal and coronal images of cervical spine were obtained. This CT examination was performed using dose optimization techniques as appropriate, variously including the following: *Automated exposure control *Adjustment of mA and/or kV according to patient size (this includes techniques or standardized protocols for targeted exams where dose is matched to indication/reason for exam; i.e. extremities or head) *Use of iterative reconstruction technique FINDINGS: On sagittal reconstructed images there is reversal of cervical lordosis with grade 1 anterolisthesis C3 over C4 and C4 over C5. Rest of the vertebral alignment is normal. There is loss of C5-C6 and C6 testis 7 disc heights with moderate ventral and mild posterior spondylosis. The craniovertebral junction and C1-C2 alignment is normal. 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 Moderate left C3-4 and right C7-T1 facet joint arthropathy and hypertrophy is noted. There is no visible acute fracture or dislocation. No lytic or sclerotic process seen. The paravertebral and prevertebral soft tissues are normal. The airways widely patent. The lung apices are clear. CT/CT cervical spine wo IV con IMPRESSION: Reversal of cervical lordosis with anterolisthesis C3 over C4 and C4 and C5. Degenerative disc changes with ventral and posterior spondylosis C5-6 and C6 testis 7 disc levels. No acute fracture or dislocation seen. Fleischner guidelines were followed. Electronically signed by: Oracio Maravilla MD 11/29/2024 02:51 PM EDT
--- NOTE | ~2024-11-29 | XR_ITS ---
EXAMINATION: XR HIP, LEFT CLINICAL INFORMATION: pain after fall COMPARISON: January 17, 2023 TECHNIQUE: AP view pelvis. AP and oblique views of the left hip. FINDINGS: Bony pelvis is intact. Degenerative changes in the coxofemoral joints sacroiliac joints and symphysis pubis. No acute cortical disruption or gross malalignment. No lytic or blastic lesions. No gross soft tissue calcifications. Multilevel spondylosis, lower lumbar spine. XR/XR hip LT w PEL1V IMPRESSION: No acute fracture or dislocation, left hip. No gross acute fracture, bony pelvis. Electronically signed by: Luis A Leahy MD 11/29/2024 09:52 AM EDT
--- NOTE | ~2024-11-29 | XR_ITS ---
EXAMINATION: XR SHOULDER, RIGHT CLINICAL INFORMATION: fall, deformity COMPARISON: September 26, 2015. TECHNIQUE: AP and Y-view projections of the right shoulder. FINDINGS: Comminuted displaced abnormality involving the humeral neck and proximal metadiaphysis. The scapula and clavicle appear grossly intact. Degenerative changes in the common clavicular joint. Osteopenia versus osteoporosis. XR/XR shoulder RT min 2V IMPRESSION: Acute comminuted displaced fracture right humeral neck proximal diaphysis/metaphysis. Electronically signed by: Luis A eLahy MD 11/29/2024 09:51 AM EDT
--- NOTE | ~2024-11-29 | XR_ITS ---
EXAMINATION: XR KNEE, LEFT CLINICAL INFORMATION: pain after fall COMPARISON: None available. TECHNIQUE: AP oblique and lateral views of the left knee. FINDINGS: No acute cortical disruption or gross malalignment. Mild joint space narrowing involving the medial compartment and the patellofemoral joint space. Small marginal osteophyte formation and sclerosis along the articular surface. No suprapatellar bursa joint effusion. Small exostosis at the quadriceps tendon and patellar tendon insertion. Well-corticated calcifications in the soft tissues of the lower thigh. Bone marrow inhomogeneity. No lytic or blastic lesions. 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 Concerning calcium metabolic disorders. Lymphoproliferative disorder cannot be excluded.. Electronically signed by: Luis A Leahy MD 11/29/2024 09:55 AM EDT
--- NOTE | ~2024-11-29 | CT_ITS ---
EXAMINATION: CT HEAD WITHOUT CONTRAST CLINICAL INFORMATION: fall with head strike COMPARISON: October 23, 2023 TECHNIQUE: Contiguous axial imaging was performed from the skull base to vertex without intravenous administration of contrast. This CT examination was performed using dose optimization techniques as appropriate, variously including the following: *Automated exposure control *Adjustment of mA and/or kV according to patient size (this includes techniques or standardized protocols for targeted exams where dose is matched to indication/reason for exam; i.e. extremities or head) *Use of iterative reconstruction technique DLP: 800 mGy-cm FINDINGS: No acute cortical disruption within the bony calvarium. Status post suboccipital craniectomy and partial resection of the posterior arch of C1. No acute intracranial hemorrhage, mass effect, midline shift, hydrocephalus or herniation. Addison-white matter differentiation is normal. Bilateral multifocal patchy and confluent deep periventricular white matter hypodensity involving centrum semiovale and partida radiata. Sellar/suprasellar region demonstrated no gross masses. There is a low position of the cerebellar tonsils. No air-fluid levels in the paranasal sinuses. There is air-fluid levels in the left mastoid air cells. The tympanic cavity and mastoid antrum are well pneumatized and aerated bilaterally. There is a focal defect of the nasal septum/vomer. Probable old traumatic deformities in the nasal bones. Degenerative changes in the left greater than the right temporomandibular joint. No acute hematoma in the intraconal or extraconal compartments of the orbits. The eyeballs are intact with likely intraocular lens surgery bilaterally. CT/CT head/brain wo IV con IMPRESSION: No acute fracture in the bony calvarium. No acute intracranial hemorrhage. Small vessel occlusive disease. Status post suboccipital craniectomy and resection posterior arch of C1. Nasal septum defect probably drug related versus trauma. Electronically signed by: Luis A Leahy MD 11/29/2024 09:45 AM EDT
--- NOTE | 2024-11-29 08:07 | ED_ITS ---
HPI - General Adult General Chief complaint: Fall Stated complaint: UNWIT FALL, ON FLOOR ALL NIGHT,-LOC,-THIN PER EMS Time Seen by Provider: 11/29/24 08:04 Source: patient, EMS and RN notes reviewed Mode of arrival: EMS Limitations: no limitations History of Present Illness ED Provider: Gabe HPI narrative: Patient is a 74-year-old female with history of mild cognitive impairment, asthma COPD overlap syndrome, CASSANDRA on CPAP, DVT/PE in the past not currently anticoagulated, HTN, DM, fibromyalgia presenting to the emergency department with complaint of right shoulder, left hip and knee pain after a fall. Patient states that she tripped around 10:00 p.m. last night, does not believe she lost consciousness. States that she was unable to get up from the floor on her own and her daughter found her this morning. Denies any dizziness or lightheadedness prior to the fall. EMS reports skin tear to right elbow. States that patient declined C-collar and denied neck pain but was noted to have a contusion to her occipital area. MD complaint: right shoulder pain Onset (ago): hour(s) Related Data Home Medications ?Medication ?Instructions ?Recorded ?Confirmed duloxetine 60 mg capsule,delayed 60 mg PO DAILY 11/19/24 release donepezil 5 mg tablet 5 mg PO BEDTIME 11/06/20 Oxygen Home Use 01/18/22 11/19/24 acetaminophen 500 mg tablet 650 mg PO Q6H PRN fever or pain 02/28/22 11/19/24 (Tylenol Extra Strength) nebulizers 03/14/23 11/19/24 atorvastatin 40 mg tablet 40 mg PO DAILY 05/15/2311/04 azelastine 137 mcg (0.1 %) nasal 1 spray intranasal BE DTIME PRN 10/23/23 11/19/24 spray Allergies aripiprazole 15 mg tablet 7.5 mg PO DAILY 01/01/24 melatonin 10 mg tablet 10 mg PO BEDTIME PRN Insomni a 01/04/24 11/19/24 zolpidem 10 mg tablet 10 mg PO BEDTIME PRN Insomni a 01/04/24 11/19/24 buspirone 30 mg tablet 30 mg PO BID 01/05/24 lidocaine 5 % topical patch 1 patch topical DAILY PRN Pain 01/05/24 11/19/24 (Lidoderm) nystatin 100,000 unit/gram topical 1 appl topical BID- TID PRN Rash 01/05/24 11/19/24 powder (Nystop) nystatin 100,000 unit/mL oral 1 ml PO BID 01/05/24 suspension albuterol sulfate 2.5 mg/3 mL 2.5 mg inhalation Q4H NV N for 03/13/24 11/19/24 (0.083 %) solution for nebulization wheezing clonazepam 0.5 mg tablet 0.5 mg PO BID PRN Anxiety 11/19/24 metformin 1,000 mg tablet 1,000 mg PO BID 03/13/24 ammonium lactate 12 % lotion 1 appl topical DAILY 04/0611/19/24 bolus insulin pump, 200 unit 2 04/23/24 11/19/24 unit bolus insulin patch pump, 200 unit, disposable (CeQur Simplicity) lisinopril 10 mg tablet mg PO DAILY 05/07/24 5 vibegron 75 mg tablet (Gemtesa) 75 mg PO DAILY 5 11/19/24 Previous Rx's ?Medication ?Instructions ?Recorded walker #1 ea 07/12/20 diabetic shoes #1 ea 09/12/22 blood-glucose,blue split trimmer,cont #1 ea 11/29/22 (Dexcom G7 English Adjunct Faculty) pen needle, diabetic 31 gauge x #100 ea 05/30/2307/19 (BD Ultra-Fine Short Pen Needle) montelukast 10 mg tablet 10 mg PO DAILY 90 days #90 t abs 11/26/23 blood-glucose meter (FreeStyle #1 ea 12/13/23 Lite Meter kit) lancets 28 gauge (FreeStyle #100 ea 12/13/23 Lancets) acetone (urine) test (Ketostix #50 ea 12/14/23 strips) blood-glucose sensor (Dexcom G7 #3 ea 01/09/24 Sensor device) glucagon 3 mg/actuation nasal 3 mg intranasal ONCE PRN 01/10/24 spray (Baqsimi) unresponsive hypoglycemia 30 days #2 ea diabetic supplies, miscellan. #1 ea 01/18/24 (CeQur Simplicity Other Spatial Scientist) insulin syringe-needle U-100 0.3 #150 ea 02/12/24 mL 31 gauge x 5/16 (BD Insulin Syringe Ultra-Fine) pantoprazole 40 mg tablet,delayed 40 mg PO DAILY@0630 #90 tabs 04/04/24 release magnesium oxide 400 mg (241.3 mg 400 mg PO BID #60 tab s 04/26/24 magnesium) tablet (MagOx) insulin glargine 100 unit/mL (3 8 unit (0.08 mL) subcu t QPM 90 06/27/24 mL) subcutaneous pen days #9 mL pen needle, diabetic 32 gauge x #150 ea 06/27/24 Humalog KwikPen Insulin 200 See Rx Instructions subcut 08/16/24 unit/mL (3 mL) subcutaneous USEASDIRECTD 30 days #6 mL (insulin lispro) Mounjaro 2.5 mg/0.5 mL 2.5 mg (0.5 mL) subcut QWEEK 4 08/20/24 subcutaneous pen injector weeks #2 mL (tirzepatide) blood sugar diagnostic (FreeStyle #100 ea 08/27/24 Lite Strips) gabapentin 300 mg capsule 300 mg PO TID 30 days #90 ca ps 10/10/24 albuterol sulfate 90 mcg/actuation 2 puff PO QID PRN f or wheezing 10/18/24 aerosol inhaler #25.5 grams fluticasone propionate 50 2 spray intranasal DAILY #48 grams 10/18/24 mcg/actuation nasal spray,suspension lancets 28 gauge (FreeStyle #100 ea 10/20/24 Lancets) budesonide 160 mcg-glycopyr 9 2 inh inhalation BID SURFACE WATER TECHNICIAN D 90 days 11/11/24 mcg-formot 4.8 mcg/actuation HFA #3 ea inhaler (Breztri Aerosphere) oxycodone 5 mg tablet 5 mg PO Q8H PRN severe pain (scale 11/30/24 score 7-10) #6 tabs Allergies Allergy/AdvReac Type Severity Reaction Status Date / Time aspirin (ASPIRIN) Allergy Intermediate GI UPSET, Verified 11/29/24 08:06 stomach pain latex (LATEX) Allergy Intermediate HIVES Verified 11/29/24 08:06 Review of Systems 2 Review of Systems: As per HPI Yes all other systems are reviewed and are negative Constitutional: Constitutional: Reports as per HPI [facility] Past Medical History Medical History (Updated 11/30/24 @ 00:01 by Baldemar Nielson) CASSANDRA (obstructive sleep apnea) MCI (mild cognitive impairment) Depressed Ulnar neuropathy Diabetic neuropathy Peripheral vascular disease Supplemental oxygen dependent GERD (gastroesophageal reflux disease) Hypoglycemia associated with type 2 diabetes mellitus COPD exacerbation C. difficile enteritis COVID-19 DVT (deep venous thrombosis) Pulmonary hypertension Pulmonary emboli Acute on chronic respiratory failure with hypoxia and hypercapnia Chronic respiratory failure [place] (hard of hearing) PONV (postoperative nausea and vomiting) Post herpetic neuralgia Pneumonia Back pain Morbid obesity Chest crackles Cardiomegaly Asthma-COPD overlap syndrome Acute respiratory failure Hyperlipidemia Hypertension Diabetes Arnold-Chiari malformation Arthritis Fibromyalgia Cough CASSANDRA treated with BiPAP Asthma Sinusitis Surgical History History of removal of laparoscopic gastric banding device Hx of eye surgery History of esophagogastroduodenoscopy (EGD) H/O colonoscopy Hx of laparoscopic gastric banding (~2009) H/O bilateral breast reduction surgery H/O brain surgery Family History Family History Mother HTN (hypertension) Breast cancer Father Primary cancer of bone marrow Social History Social History Household Members: Family Household Members Other:: granddaughter Housing: Apartment Are you a primary home health care coordinator to a significant other at home: No Do you presently have visiting nurse or other home services: Yes (ADMINISTRATIVE OFFICE SPECIALIST) Alcohol intake: former Patient Tobacco Use Status: Former Tobacco user Tobacco use type: Cigarette Years Smoked: 15 +/- Smoked in Last 30 Days: No e-Cigarette/Vaping Use: Never Used Second Hand Smoke Exposure: No Use of substances other than those prescribed or required for medical reasons: No Advance Directives: Yes Advance Directives on File: Yes Advance Directives Date on File: 11/11/21 service: No Physical Exam ED Vital Signs: Vital Signs - 24 hr 11/29/24 14:09 11/29/24 15:44 11/29/24 18:39 Temperature 98.4 F 98.4 F 98.2 F Pulse Rate 85 87 78 Respiratory Rate 14 18 18 Blood Pressure 135/54 L 135/52 L 115/52 L Pulse Oximetry 95 98 96 Oxygen Delivery Method Nasal Cannula Room Air Room Air Oxygen Flow Rate 2 11/29/24 19:04 Temperature 98.2 F Pulse Rate 78 Respiratory Rate 18 Blood Pressure 115/52 L Pulse Oximetry 96 Oxygen Delivery Method Room Air Oxygen Flow Rate BMI result Body Mass Index 36.1 Vital signs have been reviewed and appear to be correct. Blood pressure normal. Heart rate mildly tachycardic. Respiratory rate normal. Temperature normal. Oxygen saturation normal. Const General: cooperative and no acute distress Orientation/consciousness: oriented to person, oriented to place, oriented to time and patient oriented x3 Limitations: no limitations HENMT Head: Yes normocephalic, No Montejo's sign, Yes contusion (small to occipital area) and No periorbital ecchymosis Ears: hearing grossly normal bilaterally, external ears normal and EAC's normal General nose exam: Normal external nose present Face and sinus: Yes face symmetric Mouth: oropharynx normal and moist mucous membranes Throat: Yes uvula midline Eyes Pupils: Equal, round and reactive pupils present Neck Neck: Yes normal visual inspection and Yes supple Chest Chest palpation & inspection: normal inspection of the chest and normal palpation of entire chest wall Resp Effort & Inspection: normal respiratory effort and able to speak in complete sentences Auscultation: clear to auscultation bilaterally Cardio Rate: regular rate Rhythm: regular rhythm Heart sounds: S1 normal heart sound present and S2 normal heart sound present GI Palpation (GI): Soft to palpation and nontender Auscultation: normoactive bowel sounds General: Yes no CVA tenderness Back/Spine/Pelvis Back: no CVA tenderness Cervical Spine: normal cervical lordosis, cervical ROM normal, No Cervical spine tenderness and No step off deformity Thoracic/Lumbar Spine: thoracic and lumbar spine normal to inspection, thoraco- lumbar ROM normal, No thoracic spinal tenderness and No lumbar spinal tenderness Pelvis: no pain with anterior-posterior compression and no pain with lateral compression Skin General skin exam: elasticity normal and turgor normal Neuro General: oriented to person, oriented to place, oriented to time, patient oriented x3, moves all extremities, no focal motor deficits and CN's II-XI intact bilaterally Cranial nerves: Yes Equal, round and reactive pupils present Cognition (Neuro): normal cognition Extrem General: Yes full ROM, Yes no pedal edema and Yes no calf tenderness Right upper extremity: shoulder/upper arm Details: swelling Location: of the proximal humerus; ROM limited and no ecchymosis and elbow/forearm Details: other (skin tear to elbow) Psych Mental Status: mental status grossly normal Affect: normal affect Thought process: Normal thought process present Course Course Course Narrative: Addendum 11/30/24 12:47 Patient called ED, states having unbearable pain despite alternating Tylenol and ibuprofen every 3 hours. States racheal is home with her 26/09. Tried calling her PCP but they advised her to call the ED. Will send a few oxycodone until she can follow up with ortho on Monday but did discuss safety concerns with patient. She states her racheal who lives with her will be monitoring her closely. Medications Administered Discontinued Medications Generic Name Dose Route Start Last Admin Trade Name Freq PRN Reason Stop Dose Admin Diphtheria/Tetanus/Acell Pertussis 0.5 ml 11/29/24 08:31 11/29/24 10:25 Diphth,Pertus(Acell),Tet Adult 0.5 Ml Syringe IM 11/29/24 08:32 0.5 ml .ONCE ONE Administration Ketorolac Tromethamine 15 mg 11/29/24 10:14 11/29/24 10:25 Ketorolac Tromethamine 15 Mg/Ml Vial IVPUSH 11/29/24 10:15 15 mg ONCE ONE Administration Morphine Sulfate 4 mg 11/29/24 08:36 11/29/24 08:49 Morphine Sulfate 4 Mg/Ml Cartridge IVPUSH 11/29/24 08:37 4 mg ONCE ONE Administration Protocol Oxycodone HCl 5 mg 11/29/24 11:37 11/29/24 11:53 Oxycodone Hcl Immed Release 5 Mg Tablet PO 11/29/24 11:38 5 mg ONCE ONE Administration Oxycodone HCl 5 mg 11/29/24 17:26 11/29/24 17:33 Oxycodone Hcl Immed Release 5 Mg Tablet PO 11/29/24 17:27 5 mg ONCE ONE Administration Medical Decision Making Medical Decision Making [facility] Narrative: Patient is a 74-year-old female with history of mild cognitive impairment, asthma COPD overlap syndrome, CASSANDRA on CPAP, DVT/PE in the past not currently anticoagulated, HTN, DM, fibromyalgia presenting to the emergency department with complaint of right shoulder, left hip and knee pain after a fall. On exam patient is awake, A+Ox3, VS WNL, afebrile, normal neurological exam without focal deficits, physical exam findings as above. Given reported symptoms and physical exam findings, initial differential includes but is not limited to right humeral contusion versus fracture, ICH, skull or cervical vertebral fracture subluxation, hip fracture versus contusion. RN expressing some concern for possible sepsis on arrival due to tachycardia and respiratory rate. Low suspicion for this as patient is afebrile and denies any infectious complaints. Labs notable for elevated lactic likely due to metformin, do not suspect sepsis at 0911. Repeat lactic normal without intervention. Urinalysis notable for trace leukocytes, 1+ bacteria. Low suspicion for UTI, will await urine culture for treatment. X-ray shoulder notable for humeral neck fracture. No evidence of acute fracture to left hip on xray. CT head and c-spine without evidence of ICH, skull or cervical vertebral fracture or subluxation. Hip and knee x-ray without evidence of acute fracture. My interpretation is in agreement with the radiologist's interpretation. Results discussed with patient and her daughter. Offered PT evaluation for placement at short-term rehab. Patient and daughter declined, stating that she lives with her granddaughter who already performs ADMINISTRATIVE OFFICE SPECIALIST tasks for her. She feels she will be able to manage at home. Discussed with patient that if she finds she is unable to manage at home, she can return to the emergency department at any time. Will refer to ortho for follow-up and further management of humerus fracture. Return precautions discussed. Patient verbalized understanding of and agreement with plan. Differential Diagnosis Differential Diagnoses: The differential diagnosis associated with the presentation includes as per [facility] Admission/Observation Consideration of admission/observation: Escalation of care including admission/observation considered Patient would have been admitted to the hospital and transferred to appropriate facility had their clinical presentation warranted hospital admission. Consult Healthcare Provider Management of the patient was discussed with: Population Health Manager (jesse Ta) Lab Data [facility] Lab Attestation statement: I reviewed the patient's lab results. as per [facility] 11/29/24 09:11 11/29/24 08:52 Labs: Lab Results 11/29/24 11/29/24 11/29/24 Range/Units 08:23 08:52 09:11 WBC 9.8 (4.8-10.8) X10*3/uL RBC 3.65 L (4.20-5.50) X10*6/uL Hgb 10.9 L (12.0-16.0) g/dl Hct 32.3 L (37.0-47.0) % MCV 88.5 (80.0-98.0) fL MCH 29.9 (27.0-33.0) pg MCHC 33.7 (31.0-35.0) g/dl RDW 15.9 (11.0-16.0) % Plt Count 258 (160-400) X10*3/uL MPV 9.6 (9.4-12.3) fL Immature Gran % (Auto) 0.7 H (0.0-0.4) % Neut % (Auto) 82.6 H (45-73) % Lymph % (Auto) 9.7 L (20-40) % [place] % (Auto) 6.7 (2-11) % Eos % (Auto) 0.1 (0-4) % Baso % (Auto) 0.2 (0-2) % Lymph # (Auto) 1.0 L (1.2-4.9) X10*3/uL [place] # (Auto) 0.7 (0.1-1.2) X10*3/uL Eos # (Auto) 0.0 (0.0-0.4) X10*3/uL Baso # (Auto) 0.0 (0.0-0.2) X10*3/uL Abs Immat Gran (auto) 0.07 H (0.00-0.03) X10*3/uL Absolute Neuts (auto) 8.1 (2.0-8.3) x10*3/uL Absolute Nucleated RBC 0.000 (0.0-0.012) X10*3/uL Nucleated RBC % (auto) 0.0 (0.0-0.2) /100WBC PT 11.2 (10.9-12.4) SEC INR 1.0 (0.9-1.1) Sodium 138 (135-145) mmol/L Potassium 4.9 (3.3-5.1) mmol/L Chloride 103 (96-108) mmol/L Carbon Dioxide 23 (22-29) mmol/L Anion Gap 17 (12-20) BUN 18 H (9-16) mg/dL Creatinine 0.62 (0.5-1.4) mg/dL Estim Creat Clear Calc 78.7 Estimated GFR > 60 POC Glucose 166 H (60-115) mg/dL Random Glucose 160 H (60-115) mg/dL Lactic Acid 2.9 H* (0.5-2.0) mmol/L Lactic Acid F/U @ 2Hr (0.5-2.0) mmol/L Calcium 9.7 (8.4-10.2) mg/dL Magnesium 1.7 (1.6-2.6) mg/dL Total Bilirubin 0.4 (0.0-1.0) mg/dL AST 33 H (5-31) U/L ALT 17 (0-31) U/L Alkaline Phosphatase 88 (39-117) U/L Total Creatine Kinase 90 (26-140) U/L Troponin I High Sens 2.9 (<3.5-17.0) ng/L Total Protein 6.9 (6.5-8.0) g/dL Albumin 4.1 (3.5-5.0) g/dL Urine Color Urine Appearance Urine pH (5.0-9.0) Ur Specific [place] (1.005-1.025) Urine Protein (Neg-Trace) mg/dL Urine Glucose (UA) (Negative) mg/dL Urine Ketones (Negative) mg/dL Urine Blood (Negative) Urine Nitrite (Negative) Ur Leukocyte Esterase (Negative) Urine RBC (0-2) /HPF Urine WBC (0-5) /HPF Ur Squamous Epith Cells (0-2) /HPF Urine Bacteria (None Seen) Hyaline Casts (0-2) /LPF COVID-19 (CARMEN) Negative (Negative) COVID-19 Clin Com See Note Influenza Type A (CANDY) Negative (Negative) Influenza Type B (CANDY) Negative (Negative) Influenza A & B Note See Note 11/29/24 11/29/24 Range/Units 11:50 11:56 WBC (4.8-10.8) X10*3/uL RBC (4.20-5.50) X10*6/uL Hgb (12.0-16.0) g/dl Hct (37.0-47.0) % MCV (80.0-98.0) fL MCH (27.0-33.0) pg MCHC (31.0-35.0) g/dl RDW (11.0-16.0) % Plt Count (160-400) X10*3/uL MPV (9.4-12.3) fL Immature Gran % (Auto) (0.0-0.4) % Neut % (Auto) (45-73) % Lymph % (Auto) (20-40) % [place] % (Auto) (2-11) % Eos % (Auto) (0-4) % Baso % (Auto) (0-2) % Lymph # (Auto) (1.2-4.9) X10*3/uL [place] # (Auto) (0.1-1.2) X10*3/uL Eos # (Auto) (0.0-0.4) X10*3/uL Baso # (Auto) (0.0-0.2) X10*3/uL Abs Immat Gran (auto) (0.00-0.03) X10*3/uL Absolute Neuts (auto) (2.0-8.3) x10*3/uL Absolute Nucleated RBC (0.0-0.012) X10*3/uL Nucleated RBC % (auto) (0.0-0.2) /100WBC PT (10.9-12.4) SEC INR (0.9-1.1) Sodium (135-145) mmol/L Potassium (3.3-5.1) mmol/L Chloride (96-108) mmol/L Carbon Dioxide (22-29) mmol/L Anion Gap (12-20) BUN (9-16) mg/dL Creatinine (0.5-1.4) mg/dL Estim Creat Clear Calc Estimated GFR POC Glucose (60-115) mg/dL Random Glucose (60-115) mg/dL Lactic Acid (0.5-2.0) mmol/L Lactic Acid F/U @ 2Hr 1.4 (0.5-2.0) mmol/L Calcium (8.4-10.2) mg/dL Magnesium (1.6-2.6) mg/dL Total Bilirubin (0.0-1.0) mg/dL AST (5-31) U/L ALT (0-31) U/L Alkaline Phosphatase (39-117) U/L Total Creatine Kinase (26-140) U/L Troponin I High Sens (<3.5-17.0) ng/L Total Protein (6.5-8.0) g/dL Albumin (3.5-5.0) g/dL Urine Color Yellow Urine Appearance Clear Urine pH 6.5 (5.0-9.0) Ur Specific [place] 1.025 (1.005-1.025) Urine Protein Trace (Neg-Trace) mg/dL Urine Glucose (UA) Negative (Negative) mg/dL Urine Ketones 15 (Negative) mg/dL Urine Blood Negative (Negative) Urine Nitrite Negative (Negative) Ur Leukocyte Esterase Trace H (Negative) Urine RBC 0-2 (0-2) /HPF Urine WBC 0-5 (0-5) /HPF Ur Squamous Epith Cells 6-10 (0-2) /HPF Urine Bacteria 1+ (None Seen) Hyaline Casts 0-2 (0-2) /LPF COVID-19 (CARMEN) (Negative) COVID-19 Clin Com Influenza Type A (CANDY) (Negative) Influenza Type B (CANDY) (Negative) Influenza A & B Note Independent Interpretation I performed an independent interpretation of an: Plain X-Ray and CT Scan Interpretation: X-ray shoulder notable for humeral neck fracture. No evidence of acute fracture to left hip on xray. CT head and c-spine without evidence of ICH, skull or cervical vertebral fracture or subluxation. Hip and knee x-ray without evidence of acute fracture. Radiology Impression Discussion of test interpretation with radiology: I have reviewed the radiologist's reading. Radiologist Impression: XR/XR shoulder RT min 2V IMPRESSION: Acute comminuted displaced fracture right humeral neck proximal diaphysis/metaphysis. CT/CT cervical spine wo IV con IMPRESSION: Reversal of cervical lordosis with anterolisthesis C3 over C4 and C4 and C5. Degenerative disc changes with ventral and posterior spondylosis C5-6 and C6 testis 7 disc levels. No acute fracture or dislocation seen. Fleischner guidelines were followed. CT/CT head/brain wo IV con IMPRESSION: No acute fracture in the bony calvarium. No acute intracranial hemorrhage. Small vessel occlusive disease. Status post suboccipital craniectomy and resection posterior arch of C1. Nasal septum defect probably drug related versus trauma. 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 Concerning calcium metabolic disorders. Lymphoproliferative disorder cannot be excluded.. XR/XR hip LT w PEL1V IMPRESSION: No acute fracture or dislocation, left hip. No gross acute fracture, bony pelvis. Independent Historian Clinical information obtained from an independent historian. History obtained from or confirmed by: Other (daughter) External Record Review External record reviewed: Inpatient record, Office record and Outpatient record Discharge Plan Discharge Clinical Impression: Closed right humeral fracture Patient Disposition: Home, Self-Care Instructions: Arm Fracture in Adults (DC), How to Use a Sling (ED) Additional Instructions: You have been evaluated in the emergency department today for injuries after a fall. Your evaluation showed a fracture of you right upper arm (humerus). We have placed your arm in a sling today, you should keep this on until you follow up with orthopedics. Please rest and ice your arm to help it heal. Use Tylenol or ibuprofen per package directions every 6 hours as needed for pain. If necessary, you can alternate these medications and take one medication every 3 hours. For instance, at noon take ibuprofen, then at 3:00 p.m. take Tylenol, then at 6:00 p.m. take ibuprofen. Please follow-up with the orthopedic surgeon within 1 week. Return to the emergency department if you experience worsening pain, numbness, tingling, change of color in your arm, or any other concerning symptoms. Prescriptions: New oxycodone 5 mg tablet 5 mg PO Q8H PRN (Reason: severe pain (scale score 7-10)) Qty: 6 0RF Rx Instructions: Partial Fill upon patient request. No Action (DME) diabetic shoes See Rx Instructions .ROUTE .MEDSUPPLY Qty: 1 0RF Rx Instructions: extra depth orthopedic shoes ( 1 pair ) with customize heat molded multi density inner soles ( 3 pair) Dispense 1 Sig: As directed DX: And IDDM /polyneuropathy ( E11 0.42 ); hammertoe foot deformity ( M 20.41, and 20.42 ) pre ulcerative skin lesion ( L 85.1 ) Diagnosis ( E11 0.42 ) type 2 diabetes with polyneuropathy (DME) Dexcom G7 English Adjunct Faculty Misc See Rx Instructions .Route Qty: 1 0RF Rx Instructions: As directed (DME) pen needle, diabetic [BD Ultra-Fine Short Pen Needle] 31 gauge x 5/16 needle See Rx Instructions .ROUTE .COMPLEX Qty: 100 4RF Dose Instruction: DIRECTED TO INJECT FOUR TIMES DAILY Rx Instructions: DIRECTED TO INJECT FOUR TIMES DAILY montelukast 10 mg tablet 10 mg PO DAILY 90 Days Qty: 90 3RF (DME) Ketostix Strip See Rx Instructions .Route Qty: 50 2RF Rx Instructions: prn tid glucose over 250, illness, nausea, vomiting (DME) Dexcom G7 Sensor Device See Rx Instructions .ROUTE .COMPLEX Qty: 3 11RF Dose Instruction: APPLY DIRECTED AND CHANGE EVERY 10 DAYS (BULK) Rx Instructions: APPLY DIRECTED AND CHANGE EVERY 10 DAYS (BULK) (DME) insulin syringe-needle U-100 [BD Insulin Syringe Ultra-Fine] 0.3 mL 31 gauge x 5/16 syringe See Rx Instructions .ROUTE .MEDSUPPLY Qty: 150 10RF Rx Instructions: qid for insulin administration pantoprazole 40 mg tablet,delayed release (DR/EC) 40 mg PO DAILY@0630 Qty: 90 0RF (DME) pen needle, diabetic 32 gauge x 5/32 needle See Rx Instructions .ROUTE .MEDSUPPLY Qty: 150 11RF Rx Instructions: qid insulin glargine 100 unit/mL (3 mL) insulin pen 8 unit subcut QPM 90 Days Qty: 9 11RF Humalog KwikPen Insulin 200 unit/mL (3 mL) insulin pen See Rx Instructions subcut USEASDIRECTD MDD 18 30 Days Qty: 6 0RF Rx Instructions: 2-6 units tid with meals as needed subcutaneously use as directed; (DME) FreeStyle Lite Strips Strip See Rx Instructions .ROUTE .MEDSUPPLY Qty: 100 2RF Rx Instructions: As directed prn qid sensor failure, confirm glucose gabapentin 300 mg capsule 300 mg PO TID 30 Days Qty: 90 11RF fluticasone propionate 50 mcg/actuation spray,suspension 2 spray intranasal DAILY Qty: 48 3RF albuterol sulfate 90 mcg/actuation HFA aerosol inhaler 2 puff PO QID PRN (Reason: for wheezing) Qty: 25.5 3RF (DME) lancets [FreeStyle Lancets] 28 gauge [facility] See Rx Instructions .ROUTE .MEDSUPPLY Qty: 100 3RF Rx Instructions: 4 times a day prn sensor failure or to confirm glucose Breztri Aerosphere 160-9-4.8 mcg/actuation HFA aerosol inhaler 2 inh inhalation BID 90 Days Qty: 3 3RF (DME) [place] [facility] [place] See Rx Instructions .ROUTE .MEDSUPPLY Qty: 1 0RF Rx Instructions: As directed acetaminophen [Tylenol Extra Strength] 500 mg tablet 650 mg PO Q6H PRN (Reason: fever or pain) (DME) CeQur Simplicity 2 unit device MISCELLANEOUS ammonium lactate 12 % lotion 1 appl topical DAILY magnesium oxide [MagOx] 400 mg (241.3 mg magnesium) tablet 400 mg PO BID Qty: 60 0RF azelastine 137 mcg (0.1 %) Anchor,Non-Aerosol 1 spray INTRANASAL BEDTIME PRN (Reason: Allergies) Rx Instructions: administer into each nostril zolpidem 10 mg tablet 10 mg PO BEDTIME PRN (Reason: Insomnia) melatonin 10 mg Tablet 10 mg PO BEDTIME PRN (Reason: Insomnia) buspirone 30 mg Tablet 30 mg PO BID nystatin [Nystop] 100,000 unit/gram powder 1 appl topical BID-TID PRN (Reason: Rash) lidocaine [Lidoderm] 5 % adhesive patch,medicated 1 patch topical DAILY PRN (Reason: Pain) Rx Instructions: leave on most painful area for up to 12 hrs nystatin 100,000 unit/mL suspension 1 ml PO BID clonazepam 0.5 mg Tablet 0.5 mg PO BID PRN (Reason: Anxiety) albuterol sulfate 2.5 mg /3 mL (0.083 %) solution for nebulization 2.5 mg inhalation Q4H PRN (Reason: for wheezing) metformin 1,000 mg tablet 1,000 mg PO BID duloxetine 60 mg capsule,delayed release(DR/EC) 60 mg PO DAILY donepezil 5 mg tablet 5 mg PO BEDTIME (DME) Oxygen Home Use Kit See Rx Instructions .Route Rx Instructions: As directed (DME) nebulizers Misc See Rx Instructions .Route Rx Instructions: As directed (DME) blood-glucose meter [FreeStyle Lite Meter] Kit See Rx Instructions .Route Qty: 1 0RF Rx Instructions: As directed (DME) lancets [FreeStyle Lancets] 28 gauge misc See Rx Instructions .Route Qty: 100 4RF Rx Instructions: As directed checks 4 times a day aripiprazole 15 mg tablet 7.5 mg PO DAILY Baqsimi 3 mg/actuation spray,non-aerosol 3 mg intranasal ONCE MDD may repeat in 15 min PRN (Reason: unresponsive hypoglycemia) 30 Days Qty: 2 1RF lisinopril 10 mg tablet PO DAILY Mounjaro 2.5 mg/0.5 mL pen injector 2.5 mg subcut QWEEK 28 Days Qty: 2 6RF atorvastatin 40 mg tablet 40 mg PO DAILY (DME) CeQur Simplicity Other Spatial Scientist Misc See Rx Instructions .ROUTE .MEDSUPPLY Qty: 1 1RF Rx Instructions: As directed for use with cequr insulin patch Gemtesa 75 mg tablet 75 mg PO DAILY Referrals: [facility] [Provider Group] Clinical Impression: Closed right humeral fracture Interventions: ED Discharge Assessment Last Done: 11/29/24 19:04 Discharge Date/Time: 11/29/24 19:05 Print Language: Malawian
--- NOTE | 2024-11-29 08:10 | ECG_ITS ---
Test Reason : fall Blood Pressure : */* mmHG Vent. Rate : 108 BPM Atrial Rate : 108 BPM P-R Int : 166 ms QRS Dur : 140 ms QT Int : 384 ms P-R-T Axes : 53 -69 62 degrees QTcB Int : 514 ms Sinus tachycardia Right bundle branch block Left anterior fascicular block Bifascicular block Abnormal ECG When compared with ECG of 23-Apr-2024 12:10, Fusion complexes are no longer Present QRS duration has decreased Referred By: David Avalos Electronically Signed By: Олег Longoria
[2024-11-29 08:27] LABS: Glucose, Whole Blood 166 mg/dL (60-115)
[2024-11-29 09:14] LABS: Alanine Aminotransferase 17 U/L (0-31); Albumin Level 4.1 g/dL (3.5-5.0); Alkaline Phosphatase 88 U/L (39-117); Anion Gap 17 (12-20); Aspartate Amino Transferase 33 U/L (5-31); Blood Urea Nitrogen 18 mg/dL (9-16); Calcium 9.7 mg/dL (8.4-10.2); Carbon Dioxide 23 mmol/L (22-29); Chloride 103 mmol/L (96-108); Creatinine Clr Calc Pharmacy 78.7; Estimated Glomerular Filt Rate > 60; Magnesium 1.7 mg/dL (1.6-2.6); Potassium 4.9 mmol/L (3.3-5.1); Sodium 138 mmol/L (135-145); Total Protein 6.9 g/dL (6.5-8.0)
[2024-11-29 09:19] LABS: Troponin-I High Sensitivity 2.9 ng/L (<3.5-17.0)
[2024-11-29 09:39] LABS: Hematocrit 32.3 % (37.0-47.0); Hemoglobin 10.9 g/dl (12.0-16.0); Imm Gran Abs Auto 0.07 X10*3/uL (0.00-0.03); Imm Gran Pct Auto 0.7 % (0.0-0.4); Lymphocytes Absolute Auto 1.0 X10*3/uL (1.2-4.9); Mean Corpuscular HGB Conc 33.7 g/dl (31.0-35.0); Mean Corpuscular Hemoglobin 29.9 pg (27.0-33.0); Mean Corpuscular Volume 88.5 fL (80.0-98.0); NRBC Abs Auto 0.000 X10*3/uL (0.0-0.012); NRBC Pct Auto 0.0 /100WBC (0.0-0.2); Platelet Count 258 X10*3/uL (160-400); Red Blood Count 3.65 X10*6/uL (4.20-5.50); White Blood Count 9.8 X10*3/uL (4.8-10.8)
--- OUTSIDE RECORDS SUMMARY | 2024-11-29 09:39 | XMS_ITS | Clinical Summary ---
Author Organization [facility] Address [address] [place] [id number] Phone Care Team Providers Care Director Staffing Name Role Phone Rito Mesa MD Primary [...] EDT) SODIUM 140 133 - 146 mmol/L [facility] POTASSIUM 4.9 3.3 - 5.1 mmol/L [facility] CHLORIDE 97 96 - 108 mmol/L [facility] CO2 34 21 - 35 mmol/L [facility] BUN 28(H) 6 - 19 mg/dL [facility] CREATININE 1.10 0.5 - 1.5 mg/dL [facility] GLUCOSE 263(H) 70 - 99 mg/dL [facility] ALBUMIN 3.5(L) 3.9 - 4.8 g/dL [facility] TOTAL PROTEIN 6.1(L) 6.5 - 8.0 g/dL [facility] CALCIUM 9.7 8.4 - 10.3 mg/dL [facility] ALKALINE PHOSPHATASE 79 39 - 117 U/L [facility] TOTAL BILIRUBIN 0.3 0.0 - 1.2 mg/dL [facility] AST 16 0 - 37 U/L [facility] ALT 16 0 - 40 U/L [facility] GLOBULIN 2.6 1 - 4.8 g/dL [facility] EGFR 54(L) >59 mL/min/1.7 3m2 [facility] Comment:Estimated glomerular filtration rate calculated using the CKD-EPI refit equation. ANION GAP 14 10 - 20 mmol/L [facility] Blood 07/01/2022 6:32 AM EDT 07/01/2022 9:26 AM EDT Soumya Weinstein MD LAB BLOOD ORDERABLES Kemi moeller Result Performing Organization Address City/State/[facility] [[email or web address]] Co de Phone Number [facility] [address] [place] [address] from Last 3 Months or Most Recently Relevant to Health Maintenance Insurance [facility] [employer] [facility] [employer] [facility] [employer] Care Teams Director Staffing Relationship Specialty Start Date End Date Rito Mesa MD [address] [place] [address] PCP - General Internal Medicine 07/13/22 Additional Source Comments The information contained in this document represents components of the legal health record. It is not the complete legal health record.[facility]
[2024-11-29 10:13] LABS: COVID-19 Test Negative (Negative); IDNOW Serial# 55D5AD1C
[2024-11-29 10:15] LABS: IDNOW Serial# 58CA691E
[2024-11-29 10:16] LABS: Influenza B2 Negative (Negative)
[2024-11-29] MEDS: Diphth,Pertus(ACell),Tet Adult 0.5 ML SYRINGE IM (10:25)
[2024-11-29 10:52] LABS: INTERNATIONAL NORM RATIO 1.0 (0.9-1.1); Prothrombin Time 11.2 SEC (10.9-12.4)
[2024-11-29 11:20] LABS: Reflex Lactate? Lactic Acid Added
[2024-11-29] MEDS: oxyCODONE HCl Immed Release 5 MG TABLET PO ×2 (11:53→17:33)
[2024-11-29 12:02] LABS: Appearance Urine Clear; Glucose Urine UA Negative (Negative); PH 6.5 (5.0-9.0); Specific Gravity - Urine 1.025 (1.005-1.025); UMIC TRIGGER UACC YES
[2024-11-29 12:15] LABS: ~Lactic Acid-LAB USE ONLY 1.4 mmol/L (0.5-2.0)
--- NOTE | 2024-11-29 15:43 | PC.NURSE ---
Pt currently reporting no pain at rest with sling on right arm. Awaiting an ambulance ride home. Pt lives with her daughter, who is comfortable caring for her at home.
== END 2024-11-29 19:05 | disposition home or self-care (01) ==
PROVIDERS: Registered Nurse Emergency; Emergency Provider Emergency Medicine Emergency Medical Services; PCP Internal Medicine
DX: S42.301A Unspecified fracture of shaft of humerus, right arm, initial encounter for closed fracture (principal); S49.91XA Unspecified injury of right shoulder and upper arm, initial encounter; M25.552 Pain in left hip; R10.2 Pelvic and perineal pain; E11.9 Type 2 diabetes mellitus without complications; R51.9 Headache, unspecified; M54.2 Cervicalgia; R00.0 Tachycardia, unspecified; X58.XXXA Exposure to other specified factors, initial encounter; Y93.9 Activity, unspecified; Y92.9 Unspecified place or not applicable; Y99.8 Other external cause status; Z86.718 Personal history of other venous thrombosis and embolism; Z09 Encounter for follow-up examination after completed treatment for conditions other than malignant neoplasm; Z11.52 Encounter for screening for COVID-19; Z79.01 Long term (current) use of anticoagulants; Z79.899 Other long term (current) drug therapy; Z79.4 Long term (current) use of insulin; Z23 Encounter for immunization
CPT/HCPCS: 36415; 70450; 72125; 73030; 73502; 73564; 80053; 81001; 81003; 82550; 82947; 83605; 83735; 84484; 85025; 85610; 87040; 87205; 87502; 87635; 90471; 90715; 93005; 96372; 96374; 99284; 99285; J1885; J2270

== ENCOUNTER → 2024-11-29 08:10 | Outpatient (BNV) | payer OTHER, SELFPAY | PROVIDERS: Emergency Provider Emergency Medicine Emergency Medical Services; PCP Internal Medicine; Visit Provider Internal Medicine Cardiovascular Disease | DX: I45.2 Bifascicular block (principal); R00.0 Tachycardia, unspecified | CPT/HCPCS: 93010 ==

== ENCOUNTER → 2024-11-29 08:11 | Outpatient (BNV) | payer OTHER, SELFPAY | PROVIDERS: Emergency Provider Emergency Medicine Emergency Medical Services; PCP Internal Medicine; Visit Provider Radiology Diagnostic Radiology | DX: M47.812 Spondylosis without myelopathy or radiculopathy, cervical region (principal); M50.323 Other cervical disc degeneration at C6-C7 level; M50.322 Other cervical disc degeneration at C5-C6 level; I67.82 Cerebral ischemia; M17.12 Unilateral primary osteoarthritis, left knee; M25.552 Pain in left hip; S42.211A Unspecified displaced fracture of surgical neck of right humerus, initial encounter for closed fracture; W19.XXXA Unspecified fall, initial encounter | CPT/HCPCS: 70450; 72125; 73030; 73502; 73564 ==

== ENCOUNTER 2024-12-13 10:52 | Outpatient (REF) | payer OTHER, SELFPAY ==
--- NOTE | ~2024-12-13 | XR_ITS ---
EXAMINATION: XR WRIST 3 OR MORE VIEWS RIGHT HISTORY: M25.531 - Pain in right wrist COMPARISON: There are no prior studies available for comparison. FINDINGS: Three views of the right wrist are submitted. Osseous mineralization is normal. There is no fracture or dislocation. The joint spaces are preserved. There is a soft tissue calcification adjacent to the distal pole of the scaphoid, of uncertain significance. XR/XR wrist RT min 3V IMPRESSION: Soft tissue calcification adjacent to the distal pole of the scaphoid, of uncertain significance. No evidence of fracture of the right wrist. Electronically signed by: Zafar Sepulveda MD 12/13/2024 03:14 PM EDT
--- NOTE | ~2024-12-13 | XR_ITS ---
EXAMINATION: XR SHOULDER 2 OR MORE VIEWS RIGHT HISTORY: M25.511 - Pain in right shoulder COMPARISON: Comparison is made with the prior examination dated 11/29/2024. FINDINGS: Two views of the right shoulder are submitted. Osseous mineralization is normal. Again seen is a comminuted impacted fracture of the humeral neck. There is slightly greater callus formation noted, consistent with healing. The joint spaces are preserved. The soft tissues are unremarkable. XR/XR shoulder RT min 2V IMPRESSION: Healing impacted fracture of the right humeral neck. Electronically signed by: Zafar Sepulveda MD 12/13/2024 02:31 PM EDT
== END 2024-12-13 10:53 | disposition home or self-care (01) ==
LOC: HO.HOSX 10:52
PROVIDERS: Visit Provider Physician Assistant
DX: S42.201D Unspecified fracture of upper end of right humerus, subsequent encounter for fracture with routine healing (principal); M25.531 Pain in right wrist; W19.XXXD Unspecified fall, subsequent encounter
CPT/HCPCS: 73030; 73110; 99202

== ENCOUNTER 2024-12-13 14:01 | Outpatient (AMB) | payer OTHER, SELFPAY ==
--- NOTE | 2024-12-13 14:22 | MHC.OFFVIS ---
Intake Visit Reasons: FC-RT proximal humerus Fx-DOI 11/28/24 Intake Note: Madeleine is a 74 year old left hand dominant female who presents today for an ER follow up of right proximal humerus fracture, DOI 11/28/24. Patient [place] [facility] [place] the following day after she sustained a fall. Complaints of intolerable pain, x-rays were obtained and she was placed in a sling and was instructed to wear at all times. Today patient reports a lot of pain, with a current pain level of 8.5 out of 10. Her pain travels down to hand and complains of numbness and coldness in her hand. Allergies aspirin (ASPIRIN) Allergy (Intermediate, Verified 12/13/24 14:25) GI UPSET, stomach pain latex (LATEX) Allergy (Intermediate, Verified 12/13/24 14:25) HIVES Medication List - Last Reconciled 12/18/24 by Cely Huggins PA-C acetaminophen (Tylenol Extra Strength) 650 mg PO Q6H PRN acetone (urine) test (Ketostix strips) prn tid glucose over 250, illness, nausea, vomiting albuterol sulfate 2.5 mg inhalation Q4H PRN albuterol sulfate 90 mcg/actuation 2 puffs PO QID PRN ammonium lactate 12% 1 appl topical DAILY aripiprazole 7.5 mg PO DAILY atorvastatin 40 mg PO DAILY azelastine 1 spray intranasal BEDTIME PRN blood sugar diagnostic (FreeStyle Lite Strips) As directed prn qid sensor failure, confirm glucose blood-glucose meter (FreeStyle Lite Meter kit) As directed blood-glucose sensor (Dexcom G7 Sensor device) APPLY DIRECTED AND CHANGE EVERY 10 DAYS (BULK) blood-glucose,paper colorer,cont (Dexcom G7 Oakes Machine Operator) As directed bolus insulin pump, 200 unit (CeQur Simplicity) [id number] 160-9-4.8 mcg/actuation (Breztri Aerosphere) 2 inhalations inhalation BID 90 days buspirone 30 mg PO BID clonazepam 0.5 mg PO BID PRN [diabetic shoes extra depth orthopedic shoes ( 1 pair ) with customize heat molded multi density inner soles ( 3 pair) Dispense 1 Sig: As directed DX: And IDDM /polyneuropathy ( E11 0.42 ); hammertoe foot deformity ( M 20.41, and 20.42 ) pre ulcerative skin lesion ( L 85.1 ) Diagnosis ( E11 0.42 ) type 2 diabetes with polyneuropathy] diabetic supplies, miscellan. (CeQur Simplicity Power Transformer Assembler) As directed for use with cequr insulin patch donepezil 5 mg PO BEDTIME duloxetine 60 mg PO DAILY fluticasone propionate 50 mcg/actuation 2 sprays intranasal DAILY gabapentin 300 mg PO TID 30 days glucagon 3 mg/actuation (Baqsimi) 3 mg intranasal ONCE PRN 30 days MDD may repeat in 15 min Humalog KwikPen Insulin (insulin lispro) 2-6 units tid with meals as needed subcutaneously use as directed; 30 days MDD 18 NS insulin glargine 8 units (0.08 mL) subcut QPM 90 days insulin syringe-needle U-100 (BD Insulin Syringe Ultra-Fine) qid for insulin administration lancets (FreeStyle Lancets) As directed checks 4 times a day lancets (FreeStyle Lancets) 4 times a day prn sensor failure or to confirm glucose lidocaine 5% (Lidoderm) 1 patch topical DAILY PRN lisinopril mg PO DAILY magnesium oxide (MagOx) 400 mg PO BID melatonin 10 mg PO BEDTIME PRN metformin 1,000 mg PO BID montelukast 10 mg PO DAILY 90 days Mounjaro (tirzepatide) 2.5 mg (0.5 mL) subcut QWEEK 4 weeks NS nebulizers As directed nystatin (Nystop) 1 appl topical BID-TID PRN nystatin 1 mL PO BID oxycodone 5 mg PO Q8H PRN Oxygen Home Use As directed pantoprazole 40 mg PO DAILY@0630 pen needle, diabetic (BD Ultra-Fine Short Pen Needle) DIRECTED TO INJECT FOUR TIMES DAILY pen needle, diabetic qid tramadol 50 mg PO BID 7 days vibegron (Gemtesa) 75 mg PO DAILY walker As directed zolpidem 10 mg PO BEDTIME PRN HPI HPI FC-RT proximal humerus Fx-DOI 11/28/24: Details: 74-year-old female presents to the office today for an injury she sustained to her right shoulder on 11/28/2024. She sustained a fall and was seen in the emergency department where x-rays were obtained and she was found to have a proximal humerus fracture. She was placed in a sling and referred to our office for ortho eval. [facility] Medical History (Updated 12/18/24 @ 08:32 by Cely Huggins PA-C) CASSANDRA (obstructive sleep apnea) MCI (mild cognitive impairment) Depressed Ulnar neuropathy Diabetic neuropathy Peripheral vascular disease Supplemental oxygen dependent GERD (gastroesophageal reflux disease) Hypoglycemia associated with type 2 diabetes mellitus COPD exacerbation C. difficile enteritis COVID-19 DVT (deep venous thrombosis) Pulmonary hypertension Pulmonary emboli Acute on chronic respiratory failure with hypoxia and hypercapnia Chronic respiratory failure ATQASUK (hard of hearing) PONV (postoperative nausea and vomiting) Post herpetic neuralgia Pneumonia Back pain Morbid obesity Chest crackles Cardiomegaly Asthma-COPD overlap syndrome Acute respiratory failure Hyperlipidemia Hypertension Diabetes Arnold-Chiari malformation Arthritis Fibromyalgia Cough CASSANDRA treated with BiPAP Asthma Sinusitis Surgical History History of removal of laparoscopic gastric banding device Hx of eye surgery History of esophagogastroduodenoscopy (EGD) H/O colonoscopy Hx of laparoscopic gastric banding (~2009) H/O bilateral breast reduction surgery H/O brain surgery Family History Mother HTN (hypertension) Breast cancer Father Primary cancer of bone marrow Social History (Updated 12/13/24 @ 14:23 by Caro Shultz Ghazal) Household Members: Family Household Members Other:: granddaughter Housing: Apartment Are you a primary customer care manager to a significant other at home: No Do you presently have visiting nurse or other home services: Yes (PLANT AND MAINTENANCE TECHNICIAN) Alcohol intake: former Patient Tobacco Use Status: Former Tobacco user Tobacco use type: Cigarette Years Smoked: 15 +/- e-Cigarette/Vaping Use: Never Used Second Hand Smoke Exposure: No Advance Directives Date on File: 11/11/21 service: No Current occupation: left hand dominant Review of Systems Const All systems reviewed & are unremarkable except as noted in HPI and below Physical Exam Const General: cooperative and no acute distress Orientation/consciousness: patient oriented x3 Resp Effort & Inspection: normal respiratory effort and able to speak in complete sentences Cardio Peripheral pulses: Peripheral pulses 2+ throughout Neuro General: patient oriented x3 Extrem Other: Right shoulder normal to inspection. Swelling and tenderness over the proximal humerus. Anterior deltoid sensation intact. Elbow and wrist ROM intact. NVI. She is also experiencing right wrist pain which is slightly tender to palpation. No notable deformity. No swelling or ecchymosis. Neurovascularly intact. Office Procedures AMB Fracture Care Fracture Billing Code: Fracture Billing Code Results Reviewed Results Reviewed: XR shoulder RT min 2V IMPRESSION: Healing impacted fracture of the right humeral neck. /XR wrist RT min 3V IMPRESSION: Soft tissue calcification adjacent to the distal pole of the scaphoid, of uncertain significance. No evidence of fracture of the right wrist. Assessment & Plan Assessment & Plan (1) Closed fracture of right proximal humerus: Code(s): S42.201A - Unspecified fracture of upper end of right humerus, initial encounter for closed fracture Category: Medical (2) Wrist pain, right: Code(s): M25.531 - Pain in right wrist Category: Medical Plan Continue with sling for comfort. She can remove for resting and physical therapy exercises. She should work on range of motion of the wrist and elbow. Gentle motion of the right shoulder with no overhead reaching or lifting. Nonweightbearing right upper extremity. I would like to see her back in 6 weeks with x-rays, sooner if needed. Orders: Orders XR shoulder RT min 2V 12/13/24 M25.511 - Pain in right shoulder XR wrist RT min 3V 12/13/24 M25.531 - Pain in right wrist [facility]errals [facility] Referral S42.201A - Unspecified fracture of upper end of right humerus, initial encounter for closed fracture Medications: New tramadol 50 mg PO BID 14 tabs 0RF 7 days Coding Level of Care Code New Pt Level 3 (72036) Complex EM visit Add On G2211 Diagnoses Closed fracture of right proximal humerus S42.201A Wrist pain, right M25.531 CPT Codes Fracture Care - Fracture Billing Code: Fracture Billing Code ([id number])
== END 2024-12-13 14:52 | disposition home or self-care (01) ==
LOC: HO.HOS 14:02
PROVIDERS: PCP Internal Medicine; Visit Provider Physician Assistant
DX: S42.201A Unspecified fracture of upper end of right humerus, initial encounter for closed fracture (principal); M25.531 Pain in right wrist
CPT/HCPCS: 99203; G2211

== ENCOUNTER → 2024-12-13 14:08 | Outpatient (BNV) | payer OTHER, SELFPAY | PROVIDERS: Visit Provider Radiology Diagnostic Radiology | DX: S42.211D Unspecified displaced fracture of surgical neck of right humerus, subsequent encounter for fracture with routine healing (principal); M25.531 Pain in right wrist | CPT/HCPCS: 73030; 73110 ==

== ENCOUNTER 2025-01-24 10:20 | Outpatient (REF) | payer OTHER, SELFPAY ==
--- OUTSIDE RECORDS SUMMARY | 2025-01-24 14:42 | XMS_ITS | Continuity of Care Document ---
Author Organization [employer] [facility] Address [address] [place] [id number] Care Team Providers Care As400 Operator Name Role Phone HIM CCA OTHER Assessment Encounter Date Assessment Date Assessment LastModified by Organization Details LastModified Time 12/19/2024 12/19/2024 As noted, we were called to see this patient regarding concerns of Right arm pain. Evaluation in the field was performed by my quill buncher and sorter colleague, as noted above, I provided real-time direction and supervision for this visit. patient has a right shoulder fracture on November 29. She's been having swelling of the right arm which resolved. There is no finding on exam for compartment syndrome as per medic. She has trace amount of swelling in bilateral feet. It does not go to the ankles as per medic. Patient was advised to elevate her feet. She feels comfortable the follow-up with her PCP and orthopedic surgeon. Impression: Right arm pain Plan: Follow-up PCP and orthopedic surgeon Primary care, consider labs, x-rays Disposition: We discussed the diagnostic uncertainty of home visits and the risk associated with this. In this case, the patient and I felt this to be an acceptable and reasonable amount of risk given the benefit of avoiding an ED visit. We discussed the need to seek care urgently/emerge ntly in the setting of any new or worsening serious symptoms, particularly chest pain, shortness of breath, swelling or tightness of right arm. [email or web address] Not available 12/19/2024 12:57:05 Plan of Treatment Reminders Order Date Submit Date Provider Last Modified By Organization Details Last Modified Time Details Appointments None record ed. Lab None record ed. Referral None record ed. Procedures None record ed. Surgeries None record ed. Imaging None record ed. Medication Orders None record ed. Patient TargetsNo targets recorded. Patient InstructionsNo instructions recorded. Reason for Referral None Reported. Medical Equipment None Reported. Allergies Allergen ID Allergen Name Allergen Category Reaction Reaction Severity Criticality Documentation Date Start Date Code Code System Note Provider Name and Address Organization Details Recorded Time 8846 latex environme nt,medica tion Not available Not available Not available 01/02/2024 04819 91 RxNorm Not Available [facility] - production 4 03:47:12 8847 Product containin g penicilli n (product) medicatio n Not available Not available Not available 01/02/2024 76647 8001 SNOMED Not Available [facility] - production [...] active Not Available Not Available Not Avai clint lidocaine 5 % topical patch APPLY 1 [...] Available Not Available Not Available Dexcom G6 Blood Tester Fowl USE DIRECTED active Not Available Not Available [...] Available No t Available Vitals Date Recorded Heart rate Body height Body temperature Body weight Respiratory rate Oxygen saturation Inhaled oxygen flow rate Systolic And Diastolic Provider Name and Address Organization Details Last Updated DateTime 5 76 /min 152.4 cm 97.8 [degF] 87284.6 4 g 16 /min 97 % 2 L/min 103/71 mm[Hg] Not Available [facility] - production 5 11:52:08 Social History None recorded. Functional Status None recorded. Mental Status None recorded. Family History Nothing Reported. Medical History No medical history recorded. Gynecological HistoryNo gynecological history recorded. Obstetrics History GPAL:G 0 P 0 0 0 0 Past Encounters Encounter ID Performer Location Encounter Start Date Encounter Closed Date Diagnosis/Indication Diagnosis SNOMED-CT Code Diagnosis ICD10 Code Diagnosis IMO Codes Diagnosis Note [id number] Gaurav Santamaria MD [facility] [address] [address] 12/19/2024 11:52:03 12/19/2024 17:58:53 Pain in right arm 695323706 M79.601 058293 Health Concerns Section Related Observation LastModified by Organization Detai ls LastModified Time None Recorded Concern Status LastModified by Organization Details LastModified Time None Recorded Payers Encounter Date Sequence Insurance Name Policy Number Policy Blackwood Covered Member ID Blackwood Member ID Guarantor Name 12/19/2024 1 [facility] - DOS ON OR AFTER 2022 - DUAL ELIGIBLE - USP OPTIONS AND ONE CARE (MEDICARE REPLACEMENT/ADV ANTAGE - HMO) Madeleine Ledezma [id number] Madeleine Ledezma Notes Date Note Type Note Provider Name and Address Organization Details Recorded Time 12/19/2024 text/html ROS as noted in the HPI HPI: Member with recent fall back on 11/29 that caused a fracture in the right shoulder. Seen by ortho and no surgical intervention at this time. Member on oxycodone and Tylenol for pain. Daughter calls tonight with concern as member is still having lots of pain. Right hand has some swelling. Swelling also noted in both feet which is new. Member is diabetic and BS have been stable. Daughter trying to avoid another ER visit and would like member assessed. Member in need of home services and CRU will outreach to CP for follow up on that. .................. .................. .................. .................. .................. .................. .................. ............... [facility] Nurse Triage Notes (Shereen Wilkins): Reason For Request: swelling Chief Complaints: Extremity Swelling PMH: Hypertension, COPD/Asthma, Diabetes Mellitus Type 2 PMH Reviewed at 12/19/2024 08:14 Allergies Reviewed at 12/19/2024 08:14 Comments: HPI reviewed .................. .................. .................. .................. .................. .................. .................. ............... Director Of Special Education Note From Jorge Armenta: [facility] makes pt contact a 74 yo F CC of swelling in the R arm. [facility] obtains vital signs. [facility] meets with ELECTRIC LOCOMOTIVE FIRER/FIREMAN and OT at pts home. PT daughter called lastnight concerned over the swelling in the right arm and the legs. PT today has very minimal swelling throughout the right arm. ELECTRIC LOCOMOTIVE FIRER/FIREMAN explains its much better then what it was and they were looking for an assessment to rule out anything serious before going back to the ED. Upon exam pt has pain in the right should from the humerus FX but swelling is as expected. PT reports no tenderness in the forearm or the hand. Pulse is present at the radial int he affected arm. [facility] contacts [facility] and explains above mentioned and symptoms of compartment syndrome discussed. PT does not fit any criteria of concern. PT does have edema on the tops of her feet but that is baseline for her. PT spends a majority of her time in her chair but ELECTRIC LOCOMOTIVE FIRER/FIREMAN is encouraging getting her moving and also encourages elevation of the feet and good positioning of her affected arm. [facility] explains the red flags to watch out for such as fever, acute swelling, severe increase in pain, redness, or abnormal sensations to then seek a higher level of care. PT has appointments already setup with PCP and ortho. PT understands. [facility] clear. .................. .................. .................. .................. .................. .................. .................. ............... [facility] Consulted: Gaurav Santamaria .................. .................. .................. .................. .................. .................. .................. ............... Disposition: Fulfilled Gaurav Santamaria MD [address] [facility],[address], [place], [address], [employer] 12/19/2024 14:04:52 OBGyn Episode No OBEpisode recorded.
--- OUTSIDE RECORDS SUMMARY | 2025-01-24 14:42 | XMS_ITS | Data Portability ---
Author Organization [facility] Address [address] [place] [address] Care Team Providers Care Radiopharmacist Name Role Phone HIM CCA OTHER Assessment Encounter Date Assessment Date Assessment LastModified by Organization Details LastModified Time 04/25/2023 04/25/2023 I have reviewed and agree with the assessment and plan as documented by the wall mirror department supervisor. I provided real-time medical direction for this [...] precautions discussed. [email or web address] Not available 04/25/2023 17:02:43 12/19/2024 12/19/2024 As noted, we were called to see this patient regarding concerns of Right arm pain. Evaluation in the field was performed by my wall mirror department supervisor colleague, as noted above, I provided real-time [...] doxycycline hyclate 100 mg tablet 2023 024 [id number], [address] [place], [place], [phone], 17:02:53 Patient TargetsNo targets recorded. Patient InstructionsNo instructions recorded. Reason for Referral None Reported. Medical Equipment None Reported. Allergies Allergen ID Allergen Name Allergen Category Reaction Reaction Severity Criticality Documentation Date Start Date Code Code System Note Provider Name and Address Organization Details Recorded Time 8846 latex environme nt,medica tion Not available Not available Not available 01/02/2024 64176 91 RxNorm Not Available [facility] - production 03:47:12 8847 Product containin g penicilli n (product) medicatio n Not available Not available Not available 01/02/2024 17360 8001 SNOMED Not Available [facility] - production 03:47:12 Medications Name Sig Start Date Stop [...] Available Not Available Not Available Dexcom G6 Social Service Worker USE DIRECTED active Not Available Not [...] t Available Vitals Date Recorded Oxygen saturation Inhaled oxygen flow rate Respiratory rate Body weight Body temperature Heart rate Body height Systolic And Diastolic Provider Name and Address Organization Details Last Updated DateTime 4 98 % 2 L/min 16 /min 01947.4 g 97.2 [degF] 73 /min 152.4 cm 101/67 mm[Hg] Not Available [facility] - production 4 16:58:38 Date Recorded Heart rate Body height Body temperature Body weight Respiratory rate Oxygen saturation Inhaled oxygen flow rate Systolic And Diastolic Provider Name and Address Organization Details Last Updated DateTime 5 76 /min 152.4 cm 97.8 [degF] 64918.6 4 g 16 /min 97 % 2 L/min 103/71 mm[Hg] Not Available [facility] - production 11:52:08 Social History None recorded. Functional Status None recorded. Mental Status None recorded. Family History Nothing Reported. Medical History No medical history recorded. Gynecological HistoryNo gynecological history recorded. Obstetrics History GPAL:G 0 P 0 0 0 0 Past Encounters Encounter ID Performer Location Encounter Start Date Encounter Closed Date Diagnosis/Indication Diagnosis SNOMED-CT Code Diagnosis ICD10 Code Diagnosis IMO Codes Diagnosis Note Elizabeth Phelps MD [facility] [address] [place] [phone] 04/25/2023 16:58:36 04/26/2023 13:01:34 Acute exacerbation of chronic obstructive pulmonary disease [id number] J44.1 [id number] Gaurav Santamaria MD [facility] [address] [phone] 12/19/2024 11:52:03 12/19/2024 17:58:53 Pain in right arm [id number] M79.601 855691 Health Concerns Section Related Observation LastModified by Organization Detai ls LastModified Time None Recorded Concern Status LastModified by Organization Details LastModified Time None Recorded Advance Directives Directive None Recorded Payers Insurance Date Sequence Insurance Name Policy Number Policy Blackwood Covered Member ID Blackwood Member ID Guarantor Name 04/25/2023 1 [facility] - DOS PRIOR TO 2022 - DUAL ELIGIBLE (MEDICARE REPLACEMENT/ADV ANTAGE - HMO) Madeleine Ledezma [id number] Madeleine Ledezma 12/19/2024 1 [facility] - DOS ON OR AFTER 2022 - DUAL ELIGIBLE - SKILLED NURSING OPTIONS AND ONE CARE (MEDICARE REPLACEMENT/ADV ANTAGE - HMO) Madeleine Ledezma [id number] Madeleine Ledezma Notes Date Note Type Note [...] .................. .................. .................. .................. .................. .................. ............... Brand Analyst Note From Cory Pierce: Pt reports three [...] .................. ............... Disposition: Netta Phelps MD [address] [facility],[address], [place], [address], [employer] - [email or web address] ASNFORD 04/25/2023 17:52:09 12/19/2024 text/html ROS as noted in the [...] home services and CRU will outreach to for follow up on that. .................. .................. .................. .................. .................. .................. .................. ............... [facility] Nurse Triage Notes (Shereen Wilkins): Reason For Request: swelling Chief Complaints: Extremity Swelling PMH: Hypertension, COPD/Asthma, Diabetes Mellitus Type 2 PMH Reviewed at 12/19/2024 08:14 Allergies Reviewed at 12/19/2024 08:14 Comments: HPI reviewed .................. .................. .................. .................. .................. .................. .................. ............... Brand Analyst Note From Jorge Armenta: [facility] makes pt contact a 74 yo F CC of swelling in the R arm. [facility] obtains vital signs. [facility] meets with SNOWSPORT INSTRUCTOR and OT at pts home. PT daughter called lastnight concerned over the swelling in the right arm and the legs. PT today has very minimal swelling throughout the right arm. SNOWSPORT INSTRUCTOR explains its much better then what it [...] at the radial int he affected arm. [facility] contacts [facility] and explains above mentioned and symptoms of compartment syndrome discussed. PT does not fit any criteria of concern. PT does have edema on the tops of her feet but that is baseline for her. PT spends a majority of her time in her chair but SNOWSPORT INSTRUCTOR is encouraging getting her moving and also encourages elevation of the feet and good positioning of her affected arm. [facility] explains the red flags to watch out for such as fever, acute swelling, severe increase in pain, redness, or abnormal sensations to then seek a higher level of care. PT has appointments already setup with PCP and ortho. PT understands. [facility] clear. .................. .................. .................. .................. .................. .................. .................. ............... [facility] Consulted: Gaurav Santamaria .................. .................. .................. .................. .................. .................. .................. ............... Disposition: Fulfilled Gaurav Santamaria MD [address] [place] [address],[address] [facility], [place], [address], [employer] - [employer] 12/19/2024 14:04:52 OBGyn Episode No OBEpisode recorded.
--- OUTSIDE RECORDS SUMMARY | 2025-01-24 14:42 | XMS_ITS | Data Portability ---
Author Organization [facility], PAIN OFFICE Address [address] [facility] [address] [place] [address] Care Team Providers Care Engineer Internship Name Role Phone CARINA SOLER Primary Care Provider DENNIS DYER OTHER Assessment Encounter Date Assessment Date Assessment LastModified by Organization Details LastModified Time 06/20/2023 06/20/2023 She is a 72 year [...] . The risks and benefits of the procedure were discussed in detail. She wishes to proceed. She is a diabetic. Blood sugar levels may temporarily increase after steroid injections. She was advised to check her blood glucose levels three times a day post procedure. If her levels are above 250, She was advised to contact her PCP. She can follow up in four weeks ronald Not available 06/20/2023 11:20:59 07/17/2023 07/17/2023 Madeleine Piña is a 72 year old woman with bilateral shoulder pain for the past three months . On exam ,she has pain on abduction and limited range of motion of her both shoulders. X-ray both shoulder shows mild osteoarthritis and bursitis . She is here for a right shoulder steroid injection underultrasound guidance . The risks and benefits of the procedure were discussed in detail. She wishes to proceed. She is a diabetic. Blood sugar levels may temporarily increase after steroid injections. She was advised to check her blood glucose levels three times a day post procedure. If her levels are above 250, She was advised to contact her PCP. She will follow up in four weeks for her left shoulder injection [email or web address] Not available 07/17/2023 13:38:04 12/07/2023 12/07/2023 Madeleine Piña is a 73 year old woman with bilateral shoulder pain for the past three months . On exam ,she has pain on abduction and limited range of motion of her both shoulders. X-ray both shoulder shows mild osteoarthritis and bursitis . She is here for a right shoulder steroid injection underultrasound guidance . She has an active infection and will reschedule once her infection is better. [email or web address] Not available 12/07/2023 14:21:51 02/08/2024 02/08/2024 Madeleine Piña is a 73 year old woman with bilateral shoulder pain for the past three months . On exam ,she has pain on abduction and limited range of motion of her both shoulders. X-ray both shoulder shows mild osteoarthritis and bursitis . She is here for bilateral shoulder steroid injection underultrasound guidance . The risks and benefits of the procedure were discussed in detail. She wishes to proceed. She is a diabetic. Blood sugar levels may temporarily increase after steroid injections. She was advised to check her blood glucose levels three times a day post procedure. If her levels are above 250, She was advised to contact her PCP. She will follow up in a few weeks for TPI tmanikantan Not available 02/08/2024 16:16:36 05/13/2024 05/13/2024 Madeleine Piña is a 73 year old woman with bilateral shoulder pain for the past three months . On exam ,she has pain on abduction and limited range of motion of her both shoulders. X-ray both shoulder shows mild osteoarthritis and bursitis . She is here for bilateral shoulder steroid injection underultrasound guidance . The risks and benefits of the procedure were discussed in detail. She wishes to proceed. She is a diabetic. Blood sugar levels may temporarily increase after steroid injections. She was advised to check her blood glucose levels three times a day post procedure. If her levels are above 250, She was advised to contact her PCP. 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 Lesa jaimes MD [address] , [address], [place], [address], [place] [facility] 0 14:21:30 Lumbosacral radiculitis 70860818 Active Lesa jaimes MD [address] , [address], [place], [address], [place] [facility] 4 13:08:14 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 78563554 Fanta jaimes MD [address] , [address], [place], [address], [place] [facility] 4 13:08:14 Lumbosacral spondylosis without myelopathy 24853089 Active Lesa jaimes MD [address] , [address], [place], [address], [place] [facility] 4 13:08:14 Mononeuriti s of upper limb Active Lesa jaimes MD [address] , [address], [place], [address], [place] [facility] 4 13:08:14 Muscle pain 15445764 Active Lesa jaimes MD [address] , [address], [facility] [place] [address], [place] [facility] 4 13:08:14 Trochanteri c bursitis of left hip [id number] 03 Active 2022 Lesa jaimes MD [address] , [address], [facility] [place], [address], [place] [facility] 14:37:24 Problem Notes None recorded. Procedures Surgical History Date Name Laterality Status Provider Name and Address Organization Details Recorded Time 05/14/19 25 Intra-articular shoulder steroid injection under ultrasound guidance completed Lesa Marie MD [address] , [address], [place], [address], [place] [facility] 05/13/2024 14:03:31 02/08/20 24 Intra-articular shoulder steroid injection under ultrasound guidance completed Lesa Marie MD [address] , [address], [place], [address], [place] [facility] 02/08/2024 16:15:41 07/17/19 24 Intra-articular shoulder steroid injection under ultrasound guidance completed Lesa Marie MD [address] [facility] , [address], [place], [address], [place] [facility] 07/17/2023 13:37:19 06/20/19 24 Lumbar Epidural steroid injection under fluoroscopic guidance completed Lesa Marie MD [address] , [address], [place], [address], [place] [facility] 06/20/2023 11:18:39 12/13/19 23 Intra-articular shoulder steroid injection under ultrasound guidance completed Lesa Marie MD [address] , [address], [place], [address], [place] [facility] 12/12/2022 13:15:42 12/06/19 23 Intra-articular shoulder steroid injection under ultrasound guidance completed Lesa Marie MD [address] , [address], [place], [address], [place] [facility] 12/05/2022 13:14:40 04/26/19 23 Greater Trochanteric Bursa Steroid Injection completed Lesa Marie MD [address] , [address], [place], [address], [place] [facility] 04/26/2022 14:36:25 01/20/20 22 Greater Trochanteric Bursa Steroid Injection completed Lesa Marie MD [address] , [address], [place], [address], [place] [facility] 01/19/2022 13:42:11 03/18/19 14 Lumbar Epidural steroid injection under fluoroscopic guidance completed Lesa Marie MD [address] , [address], [place], [address], [place] [facility] 03/19/2013 13:08:14 11/20/19 13 Lumbar Epidural steroid injection under fluoroscopic guidance completed Lesa Marie MD [address] , [address], [place], [address], [place] [facility] 11/20/2012 09:33:24 03/10/19 12 Trigger Point Injections under ultrasound guidance completed [facility] [address] [facility] , [address], [place], [address], [place] [facility] 03/10/2011 10:38:48 03/06/19 06 Other completed Not Available [facility] 1 03:05:25 03/06/19 02 Other completed Not Available [facility] 1 03:05:25 Other completed Not Available [facility] 03:05:25 Imaging Results None recorded. Procedure Notes None recorded. Medical Equipment None Reported. Allergies Allergen ID Allergen Name Allergen Category Reaction Reaction Severity Criticality Documentation Date Start Date Code Code System Note Provider Name and Address Organization Details Recorded Time 441 aspirin medicatio n other mild Not available 12/21/2010 1191 RxNorm Burni ng sensa tion in the stoma ch Not Available [facility] 1 03:05:17 541 latex environme nt,medica tion rash Not available Not available 12/27/2010 99241 91 RxNorm Not Available [facility] 1 03:05:17 Medications Name Sig Start [...] Not Available Not Available No t Available doxycyclin e monohydrat e 100 mg tablet TAKE 1 TABLET BY MOUTH TWICE DAILY FOR 5 DAYS 05/13 completed Not Available Not Available Not Available tramadol 50 mg tablet TAKE 1 TABLET BY MOUTH FOUR TIMES DAILY NEEDED active Not Available Not Available No t Available acetaminop hen 500 mg tablet TAKE 1 TABLET BY MOUTH EVERY 6 HOURS NEEDED FOR FEVER OR FOR PAIN 09/27 /2023 completed Not Available Not Available Not Available [...] needed Not Available Not Available Not Available magnesium oxide 400 mg (241.3 mg magnesium) tablet TAKE 1 TABLET BY MOUTH TWICE [...] with needle 1 mL 31 gauge x 5/16 active [...] MOUTH EVERY 12 HOURS FOR 5 DAYS 05/13 completed Not Available Not Available Not Available [...] Not Available Not Available No t Available Humalog KwikPen U-200 Insulin 200 unit/mL (3 mL) subcutaneo us active Not Available Not Available Not Available Aspercreme (lidocaine ) 4 % topical [...] Not Available No t Available Dexcom G6 Textile Engraver USE DIRECTED active Not Available Not Available [...] Available Not Available Not Available CeQur Simplicity Director Of Recruitment USE DIRETED FOR USE WITH CEQUR active Not Available Not Available No t Available FreeStyle Lai 2 [place] active Not Available Not Available Not Available Sharron Aerosphere 160 mcg-9mcg-4 .8mcg/actu ation HFA aerosol [...] t Available Vitals Date Recorded Body height Oxygen saturation Heart rate Pain severity - 0-10 verbal numeric rating [Score] - Reported Systolic And Diastolic Provider Name and Address Organization Details Last Updated DateTime 05/13/2024 152.4 cm 96 % 75 /min 8 121/72 mm[Hg] Shabnam Rojas [facility] 13:36:25 Date Recorded Body height Heart rate Oxygen saturation Systolic And Diastolic Provider Name and Address Organization Details Last Updated DateTime 06/20/2023 152.4 cm 93 /min 94 % 168/59 mm[Hg] Grace Queen [facility] 06/20/2023 10:50:41 Date Recorded Body height Oxygen saturation Inhaled oxygen flow rate Heart rate Pain severity - 0-10 verbal numeric rating [Score] - Reported Body mass index (BMI) Body weight Systolic And Diastolic Provider Name and Address Organization Details Last Updated DateTime 4 152.4 cm 99 % 2.5 L/min 87 /min 8 38.5 kg/m2 86222.7 g 108/85 mm[Hg] Dulce Figueroa meghan [place] [facility] 4 11:33:53 Date Recorded Body height Heart rate Oxygen saturation Pain severity - 0-10 verbal numeric rating [Score] - Reported Systolic And Diastolic Provider Name and Address Organization Details Last Updated DateTime 4 152.4 cm 78 /min 96 % 8 138/66 mm[Hg] Dulce Arteagarino [facility] 4 13:25:51 Date Recorded Body height Heart rate Oxygen saturation Pain severity - 0-10 verbal numeric rating [Score] - Reported Systolic And Diastolic Provider Name and Address Organization Details Last Updated DateTime 4 152.4 cm 88 /min 96 % 10 125/68 mm[Hg] Dulce Arteagarino [facility] 4 14:37:48 Social History Question Answer Notes LastModified by Perceivant Details LastModified Time Tobacco Smoking Status Former Smoker Not Available [facility] 12/20/2019 03:16:12 Education 12 [email or web address] Information not available 01/26/2011 Live Alone Or With Others? With Others [facility] Information not available 12/21/2010 Marital Status Information not available 01/26/2011 Sex: Unknown Functional Status Question Answer Note LastModified by Perceivant Details LastModified Time Are you currently employed? No [id number] Information not available 12/20/2019 What is your occupation? DIsabled Social security Disability Information not available 12/21/2010 Mental Status None recorded. Family History Relationship Description Onset Age of this Age Resolved Age Notes LastModified by Organization Details LastModified Time Father Malignant neoplastic disease 96 previo usly record ed as Cancer [email or web address] [id number] Not available 11/25/2012 03:01:59 Father Diabetes mellitus previo usly record ed as Diabet es [email or web address] [id number] Not available 11/25/2012 03:01:59 Father Hypertensive disorder previo usly record ed as Hypert ension [email or web address] [id number] Not available 11/25/2012 03:01:59 Mother Malignant neoplastic disease 68 Breast (previ ously record ed as Cancer ) [email or web address] [id number] Not available 11/25/2012 03:01:59 Medical History Condition [...] ICD10 Code Diagnosis IMO Codes Diagnosis Note 1281 Lesa Marie MD PAIN OFFICE [address] [place] [address] 12/21/2010 14:06:59 12/22/2010 09:40:34 1721 Lesa Marie MD PAIN OFFICE [address] [facility] [place] [address] 12/27/2010 13:18:02 12/27/2010 15:06:30 5201 Lesa Marie MD PAIN OFFICE [address] [facility] [place] [address] 02/16/2011 13:04:02 02/16/2011 16:16:31 6541 Lesa Marie MD PAIN OFFICE [address] [facility] [place] [address] 03/10/2011 09:37:06 03/10/2011 10:39:44 8001 Lesa Marie MD [facility] PA[facility] OFFICE [address] [place] [address] 04/05/2011 13:01:46 04/05/2011 14:47:42 81861 Lesa Marie MD PAIN OFFICE [address] [place] [address] 06/17/2011 10:08:59 06/18/2011 13:15:27 [id number] Lesa Marie MD PAIN OFFICE [address] [place] [address] 11/07/2012 10:48:11 11/07/2012 15:59:02 98100 Lesa Marie MD [facility] [address] [place] [address] 11/19/2012 12:51:36 11/19/2012 16:05:42 43224 Lesa Marie MD PAIN OFFICE [address] [place] [address] 12/24/2012 14:34:44 12/24/2012 15:27:26 Lumbosacral spondylosis without myelopathy 68831814 Mononeurit is of upper limb 57449757 Muscle pain 98384423 Lumbosacra l radiculitis 00078317 Displaceme nt of lumbar intervertebral disc without myelopathy 94852118 95780 Lesa Marie MD PAIN OFFICE [address] [place] [address] 03/18/2013 13:07:26 03/19/2013 14:03:02 Lumbosacral spondylosis without myelopathy 85636766 Mononeurit is of upper limb 11081956 Muscle pain 07593112 Displaceme nt of lumbar intervertebral disc without myelopathy 31384194 Lumbosacra l radiculitis 17312685 Interverte bral disc disorder 13638153 98130 Lesa Marie MD PAIN OFFICE [address] [place] [address] 05/16/2019 13:54:58 05/16/2019 16:19:59 Intercostal post-herpetic neuralgia 659098800 B02.29 40272 Lesa Marie MD [facility] PA[facility] OFFICE [address] [place] [address] 02/04/2021 13:31:51 02/15/2021 13:47:06 Inflammation of joint of shoulder region 164001995 M13.819 M13.812 Intercosta l post-herpetic neuralgia 151227977 B02.29 Lumbosacra l radiculitis 21411164 M54.17 Displaceme nt of lumbar intervertebral disc without myelopathy 63676111 M51.26 78870 Lesa Marie MD [facility] PAIN OFFICE [address] [place] [address] 12/30/2021 14:38:15 12/30/2021 16:43:11 Trochanteric bursitis of right hip 9982189032 33852 M70.61 30049 Lesa Marie MD [facility] PAIN OFFICE [address] [place] [address] 01/19/2022 10:09:37 01/19/2022 13:45:49 Trochanteric bursitis of right hip 8703421015 66423 M70.61 55626 Lesa Marie MD [facility] PAIN OFFICE [address] [place] [address] 02/17/2022 11:28:41 02/17/2022 13:57:15 Trochanteric bursitis of right hip 4661007184 38835 M70.61 60521 Lesa Marie MD [facility] PAIN OFFICE [address] [place] [address] 04/26/2022 10:47:04 04/26/2022 14:41:34 Trochanteric bursitis of left hip 3728421525 46006 M70.62 24775 Lesa Marie MD [facility] PAIN OFFICE [address] [facility] [address] 11/30/2022 14:21:06 12/01/2022 11:16:50 Subacromial bursitis of right shoulder 9985783405 093588 M75.51 Inflammati on of joint of shoulder region 901767290 M13.812 M13.811 43402 Lesa Marie MD [facility] [address] [place] [address] 12/05/2022 11:36:36 12/05/2022 13:17:19 Subacromial bursitis of right shoulder 6018172792 855256 M75.51 Inflammati on of joint of shoulder region 360456263 M13.812 M13.811 64725 Lesa Marie MD PAIN OFFICE [address] [place] [address] 12/12/2022 11:28:38 12/13/2022 11:15:40 Subacromial bursitis of right shoulder 8013657354 101326 M75.51 Inflammati on of joint of shoulder region 792542979 M13.812 M13.811 Lumbosacra l radiculopathy 9133647 M54.17 Degenerati on of lumbar intervertebral disc 04132202 M51.36 17222 Lesa Marie MD PAIN OFFICE [address] [place] [address] 05/18/2023 09:54:41 05/18/2023 14:20:26 Lumbosacral radiculitis 20956981 M54.17 Displaceme nt of lumbar intervertebral disc without myelopathy 52325326 M51.26 Subacromia l bursitis of right shoulder 8454504370 158181 M75.51 Inflammati on of joint of shoulder region 499534833 M13.812 M13.811 Lumbosacra l radiculopathy 8915476 M54.17 Degenerati on of lumbar intervertebral disc 79647389 M51.36 02412 Lesa Marie MD PAIN OFFICE [address] [place] [address] 06/20/2023 10:26:03 06/20/2023 15:35:35 Lumbosacral radiculitis 04087236 M54.17 Displaceme nt of lumbar intervertebral disc without myelopathy 48480969 M51.26 Subacromia l bursitis of right shoulder 2362431254 511492 M75.51 Inflammati on of joint of shoulder region 256815338 M13.812 M13.811 Lumbosacra l radiculopathy 3970334 M54.17 Degenerati on of lumbar intervertebral disc 10452201 M51.36 99080 Lesa Marie MD PAIN OFFICE [address] [place] [address] 07/17/2023 11:21:50 07/17/2023 13:39:13 Subacromial bursitis of right shoulder 8416916032 904783 M75.51 Inflammati on of joint of shoulder region 068777136 M13.812 M13.811 04104 Lesa Marie MD PAIN OFFICE [address] [place] [address] 12/07/2023 12:31:09 12/08/2023 10:25:28 Subacromial bursitis of right shoulder 2203339183 842278 M75.51 Inflammati on of joint of shoulder region 657373167 M13.812 M13.811 54790 Lesa Marie MD PAIN OFFICE [address] [place] [address] 02/08/2024 14:33:02 02/08/2024 16:19:44 Subacromial bursitis of right shoulder 3108350863 441908 M75.51 Inflammati on of joint of shoulder region 542379691 M13.812 M13.811 30282 Lesa Marie MD PAIN OFFICE [address] [place] [address] 05/13/2024 13:17:08 05/13/2024 14:18:53 Subacromial bursitis of right shoulder 6756596260 616920 M75.51 Inflammati on of joint of shoulder region 954203027 M13.812 M13.811 Health Concerns Section Related Observation LastModified by Organization Detai ls LastModified Time None Recorded Concern Status LastModified by Organization Details LastModified Time None Recorded Advance Directives Directive None Recorded Payers Insurance Date Sequence Insurance Name Policy Number Policy Blackwood Covered Member ID Blackwood Member ID Guarantor Name 04/26/2022 2 [place] [employer] Madeleine Ledezma [id number] Madeleine Ledezma 04/26/2022 2 [place] Madeleine Ledezma [id number] Madeleine Ledezma 09/08/2024 1 [facility] - DOS ON OR AFTER 2022 - ONE CARE (MEDICARE REPLACEMENT/AD VANTAGE - HMO) Madeleine Ledezma [id number] Madeleine Gonzaleze 07/04/2022 1 [facility] - DOS PRIOR TO 2022 - DUAL ELIGIBLE (MEDICARE REPLACEMENT/AD VANTAGE - HMO) Madeleine Darien [id number] Madeleine Chaparronte Notes Date Note Type Note Provider Name and Address Organization Details Recorded Time 06/20/2023 text/html She is here for a trial of lumbar epidural steroid injection under fluoroscopic guidance. Lesa Marie MD [address] [facility] , [address], [place], [address], [place] [facility] 06/20/2023 16:11:05 07/17/2023 text/html She is here for a right shoulder steroid injection under ultrasound guidance Lesa Marie MD [address] [facility] , [address], [place], [address], [place] [facility] 07/17/2023 15:26:06 12/07/2023 text/html She is here for a right shoulder steroid injection under ultrasound guidance. She reports an infection in her right finger for which she is on antibiotics . The finger appears to be infected. She has also had recent hospitalization for covid but feels she is much improved now. Lesa Marie MD [address] [facility] , [address], [place], [address], [place] [facility] 12/08/2023 11:34:53 02/08/2024 text/html She is here for a bilateral shoulder steroid injection under ultrasound guidance Lesa Marie MD [address] [facility] , [facility] [address], [place], [address], [place] [facility] 02/09/2024 08:57:46 05/13/2024 text/html She is here for a bilateral shoulder steroid injection under ultrasound guidance Lesa Marie MD [address] [facility] , [address], [place], [address], [place] [facility] 05/13/2024 14:20:57 OBGyn Episode No OBEpisode recorded.
--- OUTSIDE RECORDS SUMMARY | 2025-01-24 14:43 | XMS_ITS | Clinical Summary ---
Author Organization [facility] Address [address] [facility] [address] [place] [address] Phone Care Team Providers Care Research Test Engine Operator Name Role Phone Rito Mesa MD Primary [...] INITIAL (ONE-TIME) 2017 CREATININE LEVEL 07/02/2023 07/01/2022 INFLUENZA VACCINE (#1) 2024 2, 12/24/2020, 12/22/2010, Additional history exists COVID-19 VACCINE ( season) 2024 04/16/2021, 04/16/2021, 06/14/2020, Additional history exists RSV [...] Date/Time Associated Diagnosis Comments COMPREHENSIVE METABOLIC PANEL (CMP) Routine 07/01/2022 6:32 AM EDT Deep vein thrombosis (DVT) of upper extremity, unspecified chronicity, unspecified laterality, unspecified vein from Last 3 Months or Most Recently Relevant to Health Maintenance Results * (ABNORMAL) Comprehensive metabolic panel (07/01/2022 6:32 AM EDT) SODIUM 140 133 - 146 mmol/L [facility] POTASSIUM 4.9 3.3 - 5.1 mmol/L [facility] CHLORIDE 97 96 - 108 mmol/L [facility] CO2 34 21 - 35 mmol/L [facility] BUN 28(H) 6 - 19 mg/dL [facility] CREATININE 1.10 0.5 - 1.5 mg/dL [facility] GLUCOSE 263(H) 70 - 99 mg/dL [facility] ALBUMIN 3.5(L) 3.9 - 4.8 g/dL [facility] TOTAL PROTEIN 6.1(L) 6.5 - 8.0 g/dL [facility] CALCIUM 9.7 8.4 - 10.3 mg/dL [facility] ALKALINE PHOSPHATASE 79 39 - 117 U/L [facility] TOTAL BILIRUBIN 0.3 0.0 - 1.2 mg/dL [facility] AST 16 0 - 37 U/L [facility] ALT 16 0 - 40 U/L [facility] GLOBULIN 2.6 1 - 4.8 g/dL [facility] EGFR 54(L) >59 mL/min/1.7 3m2 [facility] Comment:Estimated glomerular filtration rate calculated using the CKD-EPI refit equation. ANION GAP 14 10 - 20 mmol/L [facility] Blood 07/01/2022 6:32 AM EDT 07/01/2022 9:26 AM EDT us Soumya Weinstein MD LAB BLOOD BKR ORDERABLES Final Result [facility] [address] [place] [address] from Last 3 Months or Most Recently Relevant to Health Maintenance Insurance [facility] [employer] [address]ICARE [place] [address] [place] [address] [place] [place] [address] MEDICARE REPLACEMENT Care Teams Research Test Engine Operator Relationship Specialty Start Date End Date Rito Mesa MD [address] [address] PCP - General Internal Medicine 07/13/22 Additional Source Comments The information contained in this document represents components of the legal health record. It is not the complete legal health record.[facility]
== END 2025-01-24 10:21 | disposition home or self-care (01) ==
LOC: HO.HOSX 10:20
PROVIDERS: Visit Provider Physician Assistant
DX: Z13.89 Encounter for screening for other disorder (principal)

== ENCOUNTER 2025-02-03 09:35 | Outpatient (REF) | payer OTHER, SELFPAY ==
--- NOTE | ~2025-02-03 | XR_ITS ---
EXAMINATION: XR SHOULDER, RIGHT CLINICAL INFORMATION: M25.511 - Pain in right shoulder COMPARISON: December 13, 2024. TECHNIQUE: AP and Y-view projections of the right shoulder. FINDINGS: There is callus formation along the fragments mostly laterally. There is an impacted and displaced fracture right humeral neck. Acromioclavicular joint is intact. The scapula appears grossly intact. XR/XR shoulder RT min 2V IMPRESSION: Healing displaced fracture, right humeral neck. Electronically signed by: Luis A Leahy MD 02/03/2025 01:21 PM [facility]
--- OUTSIDE RECORDS SUMMARY | 2025-02-06 10:54 | XMS_ITS | Clinical Summary ---
Author Organization [facility] Address [address] [facility] [address] [place] [address] Phone Care Team Providers Care Dealer Relationship Manager Name Role Phone Rito Mesa MD Primary [...] EDT) SODIUM 140 133 - 146 mmol/L [facility] POTASSIUM 4.9 3.3 - 5.1 mmol/L [facility] CHLORIDE 97 96 - 108 mmol/L [facility] CO2 34 21 - 35 mmol/L [facility] BUN 28(H) 6 - 19 mg/dL [facility] CREATININE 1.10 0.5 - 1.5 mg/dL [facility] GLUCOSE 263(H) 70 - 99 mg/dL [facility] ALBUMIN 3.5(L) 3.9 - 4.8 g/dL [facility] TOTAL PROTEIN 6.1(L) 6.5 - 8.0 g/dL [facility] CALCIUM 9.7 8.4 - 10.3 mg/dL [facility] ALKALINE PHOSPHATASE 79 39 - 117 U/L [facility] TOTAL BILIRUBIN 0.3 0.0 - 1.2 mg/dL [facility] AST 16 0 - 37 U/L [facility] ALT 16 0 - 40 U/L [facility] GLOBULIN 2.6 1 - 4.8 g/dL [facility] EGFR 54(L) >59 mL/min/1.7 3m2 [facility] Comment:Estimated glomerular filtration rate calculated using the CKD-EPI refit equation. ANION GAP 14 10 - 20 mmol/L [facility] Blood 07/01/2022 6:32 AM EDT 07/01/2022 9:26 AM EDT us Soumya Weinstein MD LAB BLOOD BKR ORDERABLES Final Result [facility] [address] [place] [address] from Last 3 Months or Most Recently Relevant to Health Maintenance Insurance [facility] [employer] MEDICARE [place] [address] [place] [address] [place] [address] MEDICARE REPLACEMENT Care Teams Dealer Relationship Manager Relationship Specialty Start Date End Date Rito Mesa MD [address] [address] PCP - General Internal Medicine 07/13/22 Additional Source Comments The information contained in this document represents components of the legal health record. It is not the complete legal health record.[facility]
== END 2025-02-03 09:36 | disposition home or self-care (01) ==
LOC: HO.HOSX 09:35
PROVIDERS: Visit Provider Physician Assistant
DX: M25.511 Pain in right shoulder (principal)
CPT/HCPCS: 73030; 99212

== ENCOUNTER 2025-02-03 13:07 | Outpatient (AMB) | payer OTHER, SELFPAY ==
--- NOTE | 2025-02-03 13:12 | MHC.OFFVIS ---
Intake Visit Reasons: OV-RT proximal humerus Fx-DOI 11/28/24 Intake Note: Madeleine is a 74 year old female who presents today as a follow up for her right proximal humerus Fx-DOI 11/28/24. At last visit 12/13/24 we referred her to visiting nurse association/Hospice referral. At today's visit she reports ongoing pain. She has been receiving PT twice a week, stating performs light exercises. Allergies aspirin (ASPIRIN) Allergy (Intermediate, Verified 02/03/25 13:12) GI UPSET, stomach pain latex (LATEX) Allergy (Intermediate, Verified 02/03/25 13:12) HIVES HPI HPI OV-RT proximal humerus Fx-DOI 11/28/24: Details: 74-year-old female returns to the office today for a follow-up right proximal humerus fracture date of injury 11/28/2024. She is at home working with physical therapy. She complains of pain when she tries to move the arm. She is left-handed therefore she does most activities with the left upper extremity. [facility] Medical History (Updated 02/03/25 @ 14:02 by Cely Huggins PA-C) CASSANDRA (obstructive sleep apnea) MCI (mild cognitive impairment) Depressed Ulnar neuropathy Diabetic neuropathy Peripheral vascular disease Supplemental oxygen dependent GERD (gastroesophageal reflux disease) Hypoglycemia associated with type 2 diabetes mellitus COPD exacerbation C. difficile enteritis COVID-19 DVT (deep venous thrombosis) Pulmonary hypertension Pulmonary emboli Acute on chronic respiratory failure with hypoxia and hypercapnia Chronic respiratory failure [place] (hard of hearing) PONV (postoperative nausea and vomiting) Post herpetic neuralgia Pneumonia Back pain Morbid obesity Chest crackles Cardiomegaly Asthma-COPD overlap syndrome Acute respiratory failure Hyperlipidemia Hypertension Diabetes Arnold-Chiari malformation Arthritis Fibromyalgia Cough CASSANDRA treated with BiPAP Asthma Sinusitis Surgical History History of removal of laparoscopic gastric banding device Hx of eye surgery History of esophagogastroduodenoscopy (EGD) H/O colonoscopy Hx of laparoscopic gastric banding (~2009) H/O bilateral breast reduction surgery H/O brain surgery Family History Mother HTN (hypertension) Breast cancer Father Primary cancer of bone marrow Social History (Updated 12/13/24 @ 14:23 by Caro Shultz Ghazal) Household Members: Family Household Members Other:: granddaughter Housing: Apartment Are you a primary director day care center to a significant other at home: No Do you presently have visiting nurse or other home services: Yes ([employer]) Alcohol intake: former Patient Tobacco Use Status: Former Tobacco user Tobacco use type: Cigarette Years Smoked: 15 +/- e-Cigarette/Vaping Use: Never Used Second Hand Smoke Exposure: No Advance Directives Date on File: 11/11/21 service: No Current occupation: left hand dominant Review of Systems Const All systems reviewed & are unremarkable except as noted in HPI and below Physical Exam Const General: cooperative and no acute distress Orientation/consciousness: patient oriented x3 Resp Effort & Inspection: normal respiratory effort and able to speak in complete sentences Cardio Peripheral pulses: Peripheral pulses 2+ throughout Neuro General: patient oriented x3 Extrem Other: Right shoulder normal to inspection. Swelling has resolved and she has very mild tenderness over the proximal humerus. Anterior deltoid sensation intact. Elbow and wrist ROM intact. NVI. Results Reviewed Results Reviewed: X-rays of the right shoulder obtained in the office today and reviewed by me show proximal humerus fracture with interval healing and stable alignment. Assessment & Plan Assessment & Plan (1) Closed fracture of right proximal humerus: Code(s): S42.201A - Unspecified fracture of upper end of right humerus, initial encounter for closed fracture Category: Medical Qualifiers: Encounter type: subsequent encounter Fracture alignment: displaced Fracture healing: with routine healing Plan The sling has been discontinued. She should work on range of motion of the wrist and elbow. Gentle motion of the right shoulder with no overhead reaching or lifting. Nonweightbearing right upper extremity. I would like to see her back in 6-8 weeks with x-rays, sooner if needed. Orders: Orders XR shoulder RT min 2V Today M25.511 - Pain in right shoulder Coding Level of Care Code Global (38442) Diagnoses Closed fracture of right proximal humerus S42.201A Encounter type: subsequent encounter Fracture alignment: displaced Fracture healing: with routine healing
--- OUTSIDE RECORDS SUMMARY | 2025-02-03 16:50 | XMS_ITS | Data Portability ---
Author Organization [employer] Address [address] [place] [address] Care Team Providers Care Business Continuity Planner Name Role Phone HIM CCA OTHER Assessment Encounter Date Assessment Date Assessment LastModified by Organization Details LastModified Time 04/25/2023 04/25/2023 I have reviewed and agree with the assessment and plan as documented by the naturopathic oncology provider. I provided real-time medical direction for this [...] in the field was performed by my naturopathic oncology provider colleague, as noted above, I provided real-time [...] doxycycline hyclate 100 mg tablet 2023 024 [id number], [address], [place], [phone], 17:02:53 Patient TargetsNo targets recorded. Patient InstructionsNo instructions recorded. Reason for Referral None Reported. Medical Equipment None Reported. Allergies Allergen ID Allergen Name Allergen Category Reaction Reaction Severity Criticality Documentation Date Start Date Code Code System Note Provider Name and Address Organization Details Recorded Time 8846 latex environme nt,medica tion Not available Not available Not available 01/02/2024 10758 91 RxNorm Not Available [facility] - production 03:47:12 8847 Product containin g penicilli n (product) medicatio n Not available Not available Not available 01/02/2024 18049 8001 SNOMED Not Available [facility] - production 03:47:12 Medications Name Sig Start [...] Available Not Available Not Available Dexcom G6 Auto Machinist USE DIRECTED active Not Available Not Available [...] 4 98 % 2 L/min 16 /min 74698.4 g 97.2 [degF] 73 /min 152.4 cm 101/67 mm[Hg] Not Available [facility] - production 4 16:58:38 Date Recorded Heart rate Body height Body temperature Body weight Respiratory rate Oxygen saturation Inhaled oxygen flow rate Systolic And Diastolic Provider Name and Address Organization Details Last Updated DateTime 5 76 /min 152.4 cm 97.8 [degF] 33335.6 4 g 16 /min 97 % 2 [...] Note Elizabeth Phelps MD Main - [facility] [address] [place] [phone] 04/25/2023 16:58:36 04/26/2023 13:01:34 Acute exacerbation of chronic obstructive pulmonary disease 217361416 J44.1 [id number] Gaurav Santamaria MD [facility] Medical [address] [phone] 12/19/2024 11:52:03 12/19/2024 17:58:53 Pain in right arm [id number] M79.601 [id number] Health Concerns Section Related Observation LastModified by Organization Detai ls LastModified Time None Recorded Concern Status LastModified by Organization Details LastModified Time None Recorded Advance Directives Directive None Recorded Payers Insurance Date Sequence Insurance Name Policy Number Policy [place] Covered Member ID [place] Member ID Guarantor Name 04/25/2023 1 [facility] - DOS PRIOR TO 2022 - DUAL ELIGIBLE (MEDICARE REPLACEMENT/ADV ANTAGE - HMO) Madeleine Ledezma [id number] Madeleine Ledezma 12/19/2024 1 [facility] - DOS ON OR AFTER 2022 - DUAL ELIGIBLE - [facility] OPTIONS AND ONE CARE (MEDICARE REPLACEMENT/ADV ANTAGE - HMO) Madeleine Ledezma [id number] Madeleine Ledezma Notes Date Note Type Note [...] .................. .................. .................. .................. .................. .................. ............... Gas Usage Meter Clerk Note From Cory Pierce: Pt reports three [...] .................. ............... Disposition: Netta Phelps MD [address] [facility],[address], [place], [address], [facility] [employer] Week[employer]SELIN [facility]FORD 04/25/2023 17:52:09 12/19/2024 text/html ROS as noted [...] .................. .................. .................. .................. .................. .................. ............... [facility] Nurse Triage Notes (Shereen Wilkins): Reason For Request: swelling Chief Complaints: Extremity Swelling PMH: Hypertension, COPD/Asthma, Diabetes Mellitus Type 2 PMH Reviewed at 12/19/2024 08:14 Allergies Reviewed at 12/19/2024 08:14 Comments: HPI reviewed .................. .................. .................. .................. .................. .................. .................. ............... Gas Usage Meter Clerk Note From Jorge Armenta: [facility] makes pt contact a 74 yo F CC of swelling in the R arm. [facility] obtains vital signs. [facility] meets with TUBE MACHINE OPERATOR and OT at pts home. PT daughter called lastnight concerned over the swelling in the right arm and the legs. PT today has very minimal swelling throughout the right arm. TUBE MACHINE OPERATOR explains its much better then what it [...] at the radial int he affected arm. [facility] contacts [facility] and explains above mentioned and symptoms of compartment syndrome discussed. PT does not fit any criteria of concern. PT does have edema on the tops of her feet but that is baseline for her. PT spends a majority of her time in her chair but TUBE MACHINE OPERATOR is encouraging getting her moving and also encourages elevation of the feet and good positioning of her affected arm. [facility] explains the red flags to watch out for such as fever, acute swelling, severe increase in pain, redness, or abnormal sensations to then seek a higher level of care. PT has appointments already setup with PCP and ortho. PT understands. [facility] clear. .................. .................. .................. .................. .................. .................. .................. ............... [facility] Consulted: Gaurav Santamaria .................. .................. .................. .................. .................. .................. .................. ............... Disposition: Fulfilled Gaurav Santamaria MD [address] [place] [address],[address] [facility], [place], [address], [facility] [employer] 12/19/2024 14:04:52 OBGyn Episode No OBEpisode recorded.
--- OUTSIDE RECORDS SUMMARY | 2025-02-03 16:50 | XMS_ITS | Clinical Summary ---
Author Organization [facility] Address [address] [facility] [address] [place] [phone] Phone Care Team Providers Care Test And Research Reactor Operator Name Role Phone Rito Mesa MD [...] EDT) SODIUM 140 133 - 146 mmol/L [facility] POTASSIUM 4.9 3.3 - 5.1 mmol/L [facility] CHLORIDE 97 96 - 108 mmol/L [facility] CO2 34 21 - 35 mmol/L [facility] BUN 28(H) 6 - 19 mg/dL [facility] CREATININE 1.10 0.5 - 1.5 mg/dL [facility] GLUCOSE 263(H) 70 - 99 mg/dL [facility] ALBUMIN 3.5(L) 3.9 - 4.8 g/dL [facility] TOTAL PROTEIN 6.1(L) 6.5 - 8.0 g/dL [facility] CALCIUM 9.7 8.4 - 10.3 mg/dL [facility] ALKALINE PHOSPHATASE 79 39 - 117 U/L [facility] TOTAL BILIRUBIN 0.3 0.0 - 1.2 mg/dL [facility] AST 16 0 - 37 U/L [facility] ALT 16 0 - 40 U/L [facility] GLOBULIN 2.6 1 - 4.8 g/dL [facility] EGFR 54(L) >59 mL/min/1.7 3m2 [facility] Comment:Estimated glomerular filtration rate calculated using the CKD-EPI refit equation. ANION GAP 14 10 - 20 mmol/L [facility] Blood 07/01/2022 6:32 AM EDT 07/01/2022 9:26 AM EDT us Soumya Weinstein MD LAB BLOOD BKR ORDERABLES Final Result [facility] [address] [place] [address] from Last 3 Months or Most Recently Relevant to Health Maintenance Insurance [facility] [employer] MEDICARE REPLACEMENT [address] [address] [place] [place] [address] MEDICARE REPLACEMENT Care Teams Test And Research Reactor Operator Relationship Specialty Start Date End Date Rito Mesa MD [address] [address] PCP - General Internal Medicine 07/13/22 Additional Source Comments The information contained in this document represents components of the legal health record. It is not the complete legal health record.[facility]
--- OUTSIDE RECORDS SUMMARY | 2025-02-03 16:50 | XMS_ITS | Data Portability ---
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 Active Lesa jaimes MD [address] , [address], [place], [address], [place] [facility] 0 14:21:30 Lumbosacral radiculitis 11597235 Active Lesa jaimes MD [address] , [address], [place], [address], [place] [facility] 4 13:08:14 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 97159372 Fanta jaimes MD [address] , [address], [place], [address], [place] [facility] 4 13:08:14 Lumbosacral spondylosis without myelopathy 01118647 Active Lesa jaimes MD [address] , [address], [place], [address], [place] [facility] 4 13:08:14 Mononeuriti s of upper limb Active Lesa jaimes MD [address] , [address], [place], [address], [place] [facility] 4 13:08:14 Muscle pain 75774995 Active Lesa jaimes MD [address] , [address], [facility] [place] [address], [place] [facility] 4 13:08:14 Trochanteri c bursitis of left hip 1287443110748 03 Active 2022 Lesa jaimes MD [address] , [address], [facility] [place], [address], [place] [facility] 14:37:24 Problem Notes None recorded. Procedures Surgical History Date Name Laterality Status Provider Name and Address Organization Details Recorded Time 05/14/19 25 Intra-articular shoulder steroid injection under ultrasound guidance completed Lesa Marie MD [address] , [address], [place], [address], [place] [facility] 05/13/2024 14:03:31 02/08/20 24 Intra-articular shoulder steroid injection under ultrasound guidance completed Lesa Marie MD [address] , [address], [place], [address], [place] [facility] 02/08/2024 16:15:41 07/17/19 24 Intra-articular shoulder steroid injection under ultrasound guidance completed Lesa Marie MD [address] [facility] , [address], [place], [address], [place] [facility] 07/17/2023 13:37:19 06/20/19 24 Lumbar Epidural steroid injection under fluoroscopic guidance completed Lesa Marie MD [address] , [address], [place], [address], [place] [facility] 06/20/2023 11:18:39 12/13/19 23 Intra-articular shoulder steroid injection under ultrasound guidance completed Lesa Marie MD [address] , [address], [place], [address], [place] [facility] 12/12/2022 13:15:42 12/06/19 23 Intra-articular shoulder steroid injection under ultrasound guidance completed Lesa Marie MD [address] , [address], [place], [address], [place] [facility] 12/05/2022 13:14:40 04/26/19 23 Greater Trochanteric Bursa Steroid Injection completed Lesa Marie MD [address] , [address], [place], [address], [place] [facility] 04/26/2022 14:36:25 01/20/20 22 Greater Trochanteric Bursa Steroid Injection completed Lesa Marie MD [address] , [address], [place], [address], [place] [facility] 01/19/2022 13:42:11 03/18/19 14 Lumbar Epidural steroid injection under fluoroscopic guidance completed Lesa Marie MD [address] , [address], [place], [address], [place] [facility] 03/19/2013 13:08:14 11/20/19 13 Lumbar Epidural steroid injection under fluoroscopic guidance completed Lesa Marie MD [address] , [address], [place], [address], [place] [facility] 11/20/2012 09:33:24 03/10/19 12 Trigger Point Injections under ultrasound guidance completed Lesa Marie MD [address] [facility] [address], [place], [address], [place] [facility] 03/10/2011 10:38:48 03/06/19 06 Other completed Not Available [facility] 1 03:05:25 03/06/19 02 Other completed Not Available [facility] 1 03:05:25 Other completed Not Available [facility] 03:05:25 Imaging Results None recorded. Procedure Notes None recorded. Medical Equipment None Reported. Allergies Allergen ID Allergen Name Allergen Category Reaction Reaction Severity Criticality Documentation Date Start Date Code Code System Note Provider Name and Address Organization Details Recorded Time 441 aspirin medicatio n other mild Not available 12/21/2010 1191 RxNorm Burni ng sensa tion in the stoma ch Not Available [facility] 1 03:05:17 541 latex environme nt,medica tion rash Not available Not available 12/27/2010 66169 91 RxNorm Not Available [facility] 1 03:05:17 Medications Name Sig Start Date [...] Not Available No t Available Dexcom G6 Knitting Machine Fixer Head USE DIRECTED active Not Available Not Available [...] Available Not Available Not Available CeQur Simplicity Stemmer Machine USE DIRETED FOR USE WITH CEQUR active Not Available Not Available No t Available FreeStyle Lai 2 [place] active Not Available Not Available Not Available [...] 75 /min 8 121/72 mm[Hg] Shabnam Rojas [place] [facility] 13:36:25 Date Recorded Body height Heart rate Oxygen saturation Systolic And Diastolic Provider Name and Address Organization Details Last Updated DateTime 06/20/2023 152.4 cm 93 /min 94 % 168/59 mm[Hg] Grace Queen [place] [facility] 06/20/2023 10:50:41 Date Recorded Body height Oxygen saturation Inhaled oxygen flow rate Heart rate Pain severity - 0-10 verbal numeric rating [Score] - Reported Body mass index (BMI) Body weight Systolic And Diastolic Provider Name and Address Organization Details Last Updated DateTime 4 152.4 cm 99 % 2.5 L/min 87 /min 8 38.5 kg/m2 34232.7 g 108/85 mm[Hg] Dulce Figueroa meghan [place] - [facility] 4 11:33:53 Date Recorded Body height Heart rate Oxygen saturation Pain severity - 0-10 verbal numeric rating [Score] - Reported Systolic And Diastolic Provider Name and Address Organization Details Last Updated DateTime 4 152.4 cm 78 /min 96 % 8 138/66 mm[Hg] Dulce Arteagarino [place] [facility] 4 13:25:51 Date Recorded Body height Heart rate Oxygen saturation Pain severity - 0-10 verbal numeric rating [Score] - Reported Systolic And Diastolic Provider Name and Address Organization Details Last Updated DateTime 4 152.4 cm 88 /min 96 % 10 125/68 mm[Hg] Dulce Arteagarino [place] [facility] 4 14:37:48 Social History Question Answer Notes LastModified by Fangc[employer] Details LastModified Time Tobacco Smoking Status Former Smoker Not Available [facility] 12/20/2019 03:16:12 Education 12 [email or web address] Information not available 01/26/2011 Live Alone Or With Others? With Others [facility] Information not available 12/21/2010 Marital Status Information not available 01/26/2011 Sex: Unknown Functional Status Question Answer Note LastModified by Fang[employer] Details LastModified Time Are you currently employed? No [id number] Information not available 12/20/2019 What is your occupation? DIsabled Social security Disability Information not available 12/21/2010 Mental Status None recorded. Family History Relationship Description Onset Age of this Age Resolved Age Notes LastModified by Organization Details LastModified Time Father Malignant neoplastic disease 96 previo usly record ed as Cancer [email or web address] [id number] Not available 11/25/2012 03:01:59 Father Diabetes mellitus previo usly record ed as Diabet es [email or web address] [id number] Not available 11/25/2012 03:01:59 Father Hypertensive disorder previo usly record ed as Hypert ension [email or web address] [id number] Not available 11/25/2012 03:01:59 Mother Malignant neoplastic disease 68 Breast (previ ously record ed as Cancer ) [email or web address] [id number] Not available 11/25/2012 03:01:59 Medical History Condition [...] OFFICE [address] [place] [address] 12/21/2010 14:06:59 12/22/2010 09:40:34 1721 Lesa Marie MD PAIN OFFICE [address] [facility] [place] [address] 12/27/2010 13:18:02 12/27/2010 15:06:30 5201 Lesa Marie MD PAIN OFFICE [address] [facility] [place] [address] 02/16/2011 13:04:02 02/16/2011 16:16:31 6541 Lesa Marie MD PAIN OFFICE [address] [facility] [address] 03/10/2011 09:37:06 03/10/2011 10:39:44 8001 Lesa Marie MD SV PAIN OFFICE [address] [place] [address] 04/05/2011 13:01:46 04/05/2011 14:47:42 32779 Lesa Marie MD PAIN OFFICE [address] [place] [address] 06/17/2011 10:08:59 06/18/2011 13:15:27 17727 Lesa Marie MD PAIN OFFICE [address] [place] [address] 11/07/2012 10:48:11 11/07/2012 15:59:02 67689 Lesa Marie MD PAIN OFFICE [address] [place] [address] 11/19/2012 12:51:36 11/19/2012 16:05:42 18165 Lesa Marie MD PAIN OFFICE [address] [place] [address] 12/24/2012 14:34:44 12/24/2012 15:27:26 Lumbosacral spondylosis without myelopathy 35354289 Mononeurit is of upper limb 09313635 Muscle pain 95734278 Lumbosacra l radiculitis 72638246 Displaceme nt of lumbar intervertebral disc without myelopathy 41018100 17881 Lesa Marie MD PAIN OFFICE [address] [place] [address] 03/18/2013 13:07:26 03/19/2013 14:03:02 Lumbosacral spondylosis without myelopathy 52354840 Mononeurit is of upper limb 64491544 Muscle pain 73709647 Displaceme nt of lumbar intervertebral disc without myelopathy 74930269 Lumbosacra l radiculitis 64333363 Interverte bral disc disorder 35692111 39579 Lesa Marie MD PAIN OFFICE [address] [place] [address] 05/16/2019 13:54:58 05/16/2019 16:19:59 Intercostal post-herpetic neuralgia 127259660 B02.29 47863 Lesa Marie MD SV PAIN OFFICE [address] [place] [address] 02/04/2021 13:31:51 02/15/2021 13:47:06 Inflammation of joint of shoulder region 806793468 M13.819 M13.812 Intercosta l post-herpetic neuralgia 072425848 B02.29 Lumbosacra l radiculitis 23775235 M54.17 Displaceme nt of lumbar intervertebral disc without myelopathy 77412672 M51.26 19206 Lesa Marie MD SV PAIN OFFICE [address] [place] [address] 12/30/2021 14:38:15 12/30/2021 16:43:11 Trochanteric bursitis of right hip 0870671622 75927 M70.61 29440 Lesa Marie MD SV PAIN OFFICE [address] [place] [address] 01/19/2022 10:09:37 01/19/2022 13:45:49 Trochanteric bursitis of right hip 5123715409 54169 M70.61 39192 Lesa Marie MD SV PAIN OFFICE [address] [place] [address] 02/17/2022 11:28:41 02/17/2022 13:57:15 Trochanteric bursitis of right hip 2816908473 70545 M70.61 29238 Lesa Marie MD SV PAIN OFFICE [address] [place] [address] 04/26/2022 10:47:04 04/26/2022 14:41:34 Trochanteric bursitis of left hip 6497459702 53244 M70.62 32591 Lesa Marie MD SV PAIN OFFICE [address] [facility] [place] [address] 11/30/2022 14:21:06 12/01/2022 11:16:50 Subacromial bursitis of right shoulder 1950525539 268987 M75.51 Inflammati on of joint of shoulder region 184500873 M13.812 M13.811 18234 Lesa Marie MD SV PAIN OFFICE [address] [place] [address] 12/05/2022 11:36:36 12/05/2022 13:17:19 Subacromial bursitis of right shoulder 2340259470 456100 M75.51 Inflammati on of joint of shoulder region 414940646 M13.812 M13.811 66345 Lesa Marie MD PAIN OFFICE [address] [place] [address] 12/12/2022 11:28:38 12/13/2022 11:15:40 Subacromial bursitis of right shoulder 3408624190 681440 M75.51 Inflammati on of joint of shoulder region 611260162 M13.812 M13.811 Lumbosacra l radiculopathy 4591549 M54.17 Degenerati on of lumbar intervertebral disc 72549675 M51.36 25946 Lesa Marie MD PAIN OFFICE [address] [place] [address] 05/18/2023 09:54:41 05/18/2023 14:20:26 Lumbosacral radiculitis 07909203 M54.17 Displaceme nt of lumbar intervertebral disc without myelopathy 94642205 M51.26 Subacromia l bursitis of right shoulder 4056834355 578649 M75.51 Inflammati on of joint of shoulder region 443199699 M13.812 M13.811 Lumbosacra l radiculopathy 2082203 M54.17 Degenerati on of lumbar intervertebral disc 23856478 M51.36 31286 Lesa Marie MD PAIN OFFICE [address] [place] [address] 06/20/2023 10:26:03 06/20/2023 15:35:35 Lumbosacral radiculitis 77743499 M54.17 Displaceme nt of lumbar intervertebral disc without myelopathy 62311480 M51.26 Subacromia l bursitis of right shoulder 2687606562 351830 M75.51 Inflammati on of joint of shoulder region 620975314 M13.812 M13.811 Lumbosacra l radiculopathy 3418491 M54.17 Degenerati on of lumbar intervertebral disc 41187567 M51.36 93493 Lesa Marie MD PAIN OFFICE [address] [place] [address] 07/17/2023 11:21:50 07/17/2023 13:39:13 Subacromial bursitis of right shoulder 7007693825 017914 M75.51 Inflammati on of joint of shoulder region 283118262 M13.812 M13.811 40908 Lesa Marie MD PAIN OFFICE [address] [place] [address] 12/07/2023 12:31:09 12/08/2023 10:25:28 Subacromial bursitis of right shoulder 7082811856 666506 M75.51 Inflammati on of joint of shoulder region 686617263 M13.812 M13.811 04641 Lesa Marie MD PAIN OFFICE [address] [place] [address] 02/08/2024 14:33:02 02/08/2024 16:19:44 Subacromial bursitis of right shoulder 1150882249 621635 M75.51 Inflammati on of joint of shoulder region 778775220 M13.812 M13.811 66659 Lesa Marie MD PAIN OFFICE [address] [place] [address] 05/13/2024 13:17:08 05/13/2024 14:18:53 Subacromial bursitis of right shoulder 8840068889 631339 M75.51 Inflammati on of joint of shoulder region 867081861 M13.812 M13.811 Health Concerns Section Related Observation LastModified by Organization Detai ls LastModified Time None Recorded Concern Status LastModified by Organization Details LastModified Time None Recorded Advance Directives Directive None Recorded Payers Insurance Date Sequence Insurance Name Policy Number Policy Blackwood Covered Member ID Blackwood Member ID Guarantor Name 04/26/2022 2 [place] [employer] Madeleine Ledezma [id number] Madeleine Ledezma 04/26/2022 2 [place] Madeleine Ledezma [id number] Madeleine Ledezma 09/08/2024 1 [facility] - DOS ON OR AFTER 2022 - ONE CARE (MEDICARE REPLACEMENT/AD VANTAGE - HMO) Madeleine Ledezma [id number] Madeleine Gonzaleze 07/04/2022 1 [facility] - DOS PRIOR TO 2022 - DUAL ELIGIBLE (MEDICARE REPLACEMENT/AD VANTAGE - HMO) Madeleine Darien [id number] Madeleine Chaparronte Notes Date Note Type Note Provider Name and Address Organization Details Recorded Time 06/20/2023 text/html She is here for a trial of lumbar epidural steroid injection under fluoroscopic guidance. Lesa Marie MD [address] [facility] , [address], [place], [address], [place] [facility] 06/20/2023 16:11:05 07/17/2023 text/html She is here for a right shoulder steroid injection under ultrasound guidance Lesa Marie MD [address] [facility] , [address], [place], [address], [place] - [facility] 07/17/2023 15:26:06 12/07/2023 text/html She is here for a right shoulder steroid injection under ultrasound guidance. She reports an infection in her right finger for which she is on antibiotics . The finger appears to be infected. She has also had recent hospitalization for covid but feels she is much improved now. Lesa Marie MD [address] [facility] , [address], [place], [address], [place] - [facility] 12/08/2023 11:34:53 02/08/2024 text/html She is here for a bilateral shoulder steroid injection under ultrasound guidance Lesa Marie MD [address] [facility] , [facility] [address], [place], [address], [place] - [facility] 02/09/2024 08:57:46 05/13/2024 text/html She is here for a bilateral shoulder steroid injection under ultrasound guidance Lesa Marie MD [address] [facility] , [address], [place], [address], [place] [facility] 05/13/2024 14:20:57 OBGyn Episode No OBEpisode recorded.
--- OUTSIDE RECORDS SUMMARY | 2025-02-03 16:50 | XMS_ITS | Continuity of Care Document ---
Author Organization [employer] [place] [employer] [facility] Address [address] [place] [address] Care Team Providers Care Patient Placement Coordinator Name Role Phone HIM CCA OTHER Assessment Encounter Date Assessment Date Assessment LastModified by Organization Details LastModified Time 12/19/2024 12/19/2024 As noted, we were called to see this patient regarding concerns of Right arm pain. Evaluation in the field was performed by my welding machine feeder colleague, as noted above, I provided real-time [...] Not available Not available Not available 01/02/2024 36105 91 RxNorm Not Available [employer] - production 4 03:47:12 8847 Product containin g penicilli n (product) medicatio n Not available Not available Not available 01/02/2024 62292 8001 SNOMED Not Available [employer] - production [...] Available Not Available Not Available Dexcom G6 Import Export Agent USE DIRECTED active Not Available Not Available [...] 5 76 /min 152.4 cm 97.8 [degF] 30991.6 4 g 16 /min 97 % 2 [...] ICD10 Code Diagnosis IMO Codes Diagnosis Note 74701 Gaurav Santamaria MD [facility] [address] [address] 12/19/2024 11:52:03 12/19/2024 17:58:53 Pain in right arm 613180211 M79.601 976187 Health Concerns Section Related Observation LastModified by Organization Detai ls LastModified Time None Recorded Concern Status LastModified by Organization Details LastModified Time None Recorded Payers Encounter Date Sequence Insurance Name Policy Number Policy Blackwood Covered Member ID Blackwood Member ID Guarantor Name 12/19/[address] [facility] - DOS ON OR AFTER 2022 - DUAL ELIGIBLE - RESIDENTIAL OPTIONS AND ONE CARE (MEDICARE REPLACEMENT/ADV ANTAGE - HMO) Madeleine Ledezma [id number] Madeleine Ledezma Notes Date Note Type Note [...] .................. .................. .................. .................. .................. .................. ............... [facility] Nurse Triage Notes (Shereen Wilkins): Reason For Request: swelling Chief Complaints: Extremity Swelling PMH: Hypertension, COPD/Asthma, Diabetes Mellitus Type 2 PMH Reviewed at 12/19/2024 08:14 Allergies Reviewed at 12/19/2024 08:14 Comments: HPI reviewed .................. .................. .................. .................. .................. .................. .................. ............... Talent Acquisition Consultant Note From Jorge Armenta: [facility] makes pt contact a 74 yo F CC of swelling in the R arm. [facility] obtains vital signs. [facility] meets with HEAD SWAMPER and OT at pts home. PT daughter called lastnight concerned over the swelling in the right arm and the legs. PT today has very minimal swelling throughout the right arm. HEAD SWAMPER explains its much better then what it [...] at the radial int he affected arm. [facility] contacts [facility] and explains above mentioned and symptoms of compartment syndrome discussed. PT does not fit any criteria of concern. PT does have edema on the tops of her feet but that is baseline for her. PT spends a majority of her time in her chair but HEAD SWAMPER is encouraging getting her moving and also encourages elevation of the feet and good positioning of her affected arm. [facility] explains the red flags to watch out for such as fever, acute swelling, severe increase in pain, redness, or abnormal sensations to then seek a higher level of care. PT has appointments already setup with PCP and ortho. PT understands. [facility] clear. .................. .................. .................. .................. .................. .................. .................. ............... [facility] Consulted: Gaurav Santamaria .................. .................. .................. .................. .................. .................. .................. ............... Disposition: Fulfilled Gaurav Santamaria MD [address] [facility],[address], [place], [address], [employer] 12/19/2024 14:04:52 OBGyn Episode No OBEpisode recorded.
== END 2025-02-03 13:47 | disposition home or self-care (01) ==
LOC: HO.HOS 13:08
PROVIDERS: Visit Provider Physician Assistant
DX: S42.201A Unspecified fracture of upper end of right humerus, initial encounter for closed fracture (principal)
CPT/HCPCS: 99213

== ENCOUNTER → 2025-02-03 13:10 | Outpatient (BNV) | payer OTHER, SELFPAY | PROVIDERS: Visit Provider Radiology Diagnostic Radiology | DX: S42.211D Unspecified displaced fracture of surgical neck of right humerus, subsequent encounter for fracture with routine healing (principal) | CPT/HCPCS: 73030 ==